=== PATIENT | female | born 1965 | race Caucasian/White ===

== ENCOUNTER 2016-08-18 17:55 | Inpatient (IN) | payer MEDICARE ==
[~2016-08-18] VITALS: Ht 154.9 cm; Wt 56.2 kg
[~2016-08-18 17:55] MED LIST: ACET-2267 PO; ARIP10TA10 PO; ASP81CT PO; CARV25TA PO; CEFD300C3 PO; CLOP75TA28 PO; CLOP75TA69 PO; DIVA-21 PO; DIVA250T PO; DIVA250T12 PO; DIVA500T15 PO; DULO20CA18 PO; ESCI20TA; EZET1TAB21; FRS325T; GABA600T2; GABA800T2 PO; HYDR-3820 PO; INSASP10V; INSASP10V SC; INSU100I14 SC; INSU100I29 SC; INSU100I5 SQ; INSU100V16 SQ; INSU100V5 SQ; LEVO750T9 PO; LISI40TA PO; MAGN400T29 PO; MAGN400T6 PO; METO-310 PO; METO10TA3 PO; NITR100C10 PO; PREG75CA PO; QNPR10T; QUET150T PO; QUET300T3 PO; ROSU20TA PO; TRAM50TA2 PO; ZOLP12.546 PO
[2016-08-18] MEDS ORDERED: NS IV 1000 ML 1,000 ML IV ONE (19:03)
[2016-08-18] MEDS ORDERED: inSUlin (REGULAR) HUMAN 1 UNIT/0.01 ML (CHARGE PER UNIT) IV ONE (19:15)
[2016-08-18 19:27] LABS: BASOPHILS % (AUTO) 0 % (0-10); EOSINOPHILS % (AUTO) 0 % (0-10); LYMPHOCYTES # (AUTO) 0.8 X 10^3 (1.0-4.0); LYMPHOCYTES % (AUTO) 8 % (12-44); MEAN CORPUSCULAR HEMOGLOBIN 31 PG (25-34); MEAN CORPUSCULAR HGB CONC 36 G/DL (32-36); MEAN CORPUSCULAR VOLUME 86 FL (80-99); MEAN PLATELET VOLUME 10.5 FL (7.4-10.4); MONOCYTES # (AUTO) 0.8 X 10^3 (0.0-1.0); MONOCYTES % (AUTO) 8 % (0-12); NEUTROPHILS % (AUTO) 84 % (42-75); PLATELET COUNT 209 10^3/uL (130-400); RED BLOOD COUNT 4.86 10^6/uL (4.35-5.85); RED CELL DISTRIBUTION WIDTH 12.3 % (10.0-14.5); WHITE BLOOD COUNT 10.7 10^3/uL (4.3-11.0)
[2016-08-18] MEDS ORDERED: ONDANSETRON 4 MG/2 ML (SDV) Z0FRAN IVP ONE (19:30)
[2016-08-18] MEDS ORDERED: FAMOTIDINE 20MG/2ML IV (PEPCID) IVP ONE (19:30)
[2016-08-18 19:38] LABS: PROTHROMBIN TIME PATIENT 12.5 SEC (12.2-14.7)
--- NOTE | 2016-08-18 19:41 | Diagnostic Imaging Report ---
INDICATION: Nausea, vomiting. COMPARISON: July 02, 2015. TECHNIQUE: Single frontal radiograph of the chest dated August 18, 2016. FINDINGS: The cardiac silhouette is within normal limits. No significant pulmonary vascular congestion. The lungs are clear. No pleural effusion. No pneumothorax. No acute osseous abnormality. IMPRESSION: Unremarkable examination without acute cardiopulmonary abnormality. Dictated by: Dictated on workstation # [id number]
[2016-08-18 19:50] LABS: ALBUMIN 4.1 G/DL (3.2-4.5); BILIRUBIN,TOTAL 1.2 MG/DL (0.1-1.0); CALCIUM 11.6 MG/DL (8.5-10.1); CREATININE SERUM 1.45 MG/DL (0.60-1.30); POTASSIUM 4.2 MMOL/L (3.6-5.0); TOTAL PROTEIN 7.8 G/DL (6.4-8.2)
[2016-08-18 20:46] LABS: BILIRUBIN,URINE NEGATIVE (NEGATIVE); KETONES,URINE 4+ (NEGATIVE); LEUKOCYTE ESTERASE ,URINE 3+ (NEGATIVE); NITRITE,URINE POSITIVE (NEGATIVE); PH,URINE 5 (5-9); PROTEIN,URINE 3+ (NEGATIVE); UROBILINOGEN,URINE NORMAL (NORMAL)
[2016-08-18 20:53] LABS: WBC,URINE >100 /HPF
[2016-08-18] MEDS ORDERED: LEVOFLOXACIN 750 MG/150 ML IV 150 ML IV ONE (21:15)
[2016-08-18] MEDS ORDERED: PROMETHAZINE INJ 25 MG/ML (PHENERGAN) AMP IVP ONE (21:15)
[2016-08-18] MEDS ORDERED: ACETAMINOPHEN 325 MG TABLET/CAPLET (TYLENOL) PO ONE (21:15)
--- NOTE | 2016-08-18 21:20 | ED General ---
General Chief Complaint: General Problems/Pain Stated Complaint: VOMITING,ELEVATED BLOOD SUGAR Nursing Triage Note: PT HERE WITH C/O HIGH BLOOD SUGAR, NAUSE, VOMITING, AND FEVER FOR 3 DAYS. Nursing Sepsis Screen: No Definite Risk Source of Information: Patient, Old Records Exam Limitations: No Limitations History of Present Illness Time Seen by Provider: 18:06 Initial Comments This 51-year-old woman presents to the emergency room complaining of 3 days of illness including vomiting, subjective fever, cough, generalized abdominal pain , and hyperglycemia. Possible sepsis was identified by nursing staff and sepsis orders were initiated. Patient was found to be febrile and tachycardic during triage. Fingerstick blood sugar was 383. Allergies and Home Medications Allergies Coded Allergies: Penicillins (Unverified Allergy, Unknown, 06/03/15) ibuprofen (Verified Allergy, Unknown, 02/18/07) Home Medications Aripiprazole 10 Mg Tablet 30Days 10 MG PO DAILY Prescribed by: KRISTA GARCIA on 07/06/15951 Aspirin 81 Mg Tablet 81 MG PO DAILY (Reported) Cefdinir 300 Mg Capsule #20 300 MG PO BID You must fill and take the antibiotics and finish until all gone. Do not stop even if you are feeling better. Prescribed by: KRISTA GARCIA on 07/06/15951 Clopidogrel Bisulfate 75 Mg Tablet 75 MG PO DAILY (Reported) Divalproex Sodium 500 Mg Tab.er.24h 500 MG PO BID (Reported) Hydrocodone/Acetaminophen 1 Each Tablet 1 TAB PO Q6H PRN PRN PAIN (Reported) Insulin Aspart 300 Units/3 Ml Solution 30Days 10 UNITS SC AC Prescribed by: KRISTA GARCIA on 07/06/15951 Insulin Detemir 100 Unit/1 Ml Insuln.pen 30Days 20 UNITS SC HS Prescribed by: KRISTA GARCIA on 07/06/15951 Metoclopramide HCl 10 Mg Tablet 30Days 10 MG PO Q6HR Prescribed by: KRISTA GARCIA on 07/06/15951 Rosuvastatin Calcium 20 Mg Tablet 20 MG PO DAILY (Reported) Constitutional: see HPI EENTM: no symptoms reported Respiratory: see HPI Cardiovascular: see HPI Gastrointestinal: see HPI Genitourinary: other (decreased urination) : No Musculoskeletal: no symptoms reported Skin: no symptoms reported Psychiatric/Neurological: No Symptoms Reported Hematologic/Lymphatic: No Symptoms Reported Past Chimnnz-Ftuzul-Uzfhjs Hx Patient Social History Alcohol Use: Occasionally Uses Recreational Drug Use: No Smoking Status: Current Everyday Smoker Type Used: Cigarettes Recent Foreign Travel: No Contact w/Someone Who Travel: No Recent Infectious Disease Expo: No Recent Hopitalizations: No Immunizations Up To Date Tetanus Booster (TDap): Unknown Seasonal Allergies Seasonal Allergies: No Surgeries HX Surgeries: Yes (EARDRUM,X4 C-SECTIONS X2 FEMUR RODS,CARPEL TUNNEL,SHEA, UMB.HERNIA) Surgeries: Abdominal, Section, Ear Surgery, Gallbladder, Orthopedic, Tubal Ligation Respiratory Hx Respiratory Disorders: Yes (PLEURAL EFFUSION--RESOLVED) Respiratory Disorders: Asthma Cardiovascular Hx Cardiac Disorders: Yes Cardiac Disorders: High Cholesterol, Hypertension Neurological Hx Neurological Disorders: Yes (CVA 12/2012--RIGHT SIDE WEAKNESS RESOLVED. 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 PAIN) Musculoskeletal Disorders: Degenerate Disk Disease, Chronic Back Pain, Fractures Endocrine Hx Endocrine Disorders: Yes Endocrine Disorders: Diabetes, Insulin dep HEENT HX ENT Disorders: Yes (ONLY HAS 2 WISDOM TEETH. NO DENTURES. MULT EAR SURGERIES ) HEENT Disorders: Chronic Ear Infection Cancer Hx Cancer: No Psychosocial Hx Psychiatric Problems: Yes (MOOD DISORDER) Behavioral Health Disorders: Sleep Difficulties, Anxiety, Personality Disorder , Depression Integumentary HX Skin/Integumentary Disorder: No Blood Transfusions Hx Blood Disorders: No Adverse Reaction to a Blood Tr: No Family Medical History Significant Family History: Heart Disease Family Medial History: Cardiovascular disease 19 FATHER 19 MOTHER G8 BROTHER Diabetes mellitus 19 FATHER FH: chronic obstructive pulmonary disease G8 BROTHER Prostate cancer 19 FATHER Physical Exam Vital Signs Vital Sign - Last 12Hours 08/18/16 18:57 Temp 100.1 Pulse 115 Resp 18 B/P 153/101 Pulse Ox 99 O2 Delivery Room Air Capillary Refill : Less Than 3 Seconds General Appearance: WD/WN Mild Distress HEENT: PERRL/EOMI Normal ENT Inspection Pharynx Normal Neck: Normal Inspection Respiratory: Lungs Clear Normal Breath Sounds No Accessory Muscle Use No Respiratory Distress Cardiovascular: No Edema No Murmur Tachycardia Gastrointestinal: Normal Bowel Sounds Soft Tenderness (mild and diffuse) Extremity: Normal Inspection No Pedal Edema Neurologic/Psychiatric: Alert Oriented x3 No Motor/Sensory Deficits Normal 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 Norm as Tested Skin: Normal Color Warm/Dry Progress/Results/Core Measures Results/Orders Lab Results Laboratory Tests Test 08/18/16 19:12 08/18/16 19:15 08/18/16 19:48 08/18/16 20:30 Range/Units Glucometer 383 H 368 H 70-110 MG/DL Activated Partial Thromboplast Time 22 L 24-35 SEC Alanine Aminotransferase (ALT/SGPT) 18 0-55 U/L Albumin 4.1 3.2-4.5 G/DL Alkaline Phosphatase 119 40-136 U/L Anion Gap 21 H 5-14 MMOL/L Aspartate Amino Transf (AST/SGOT) 21 5-34 U/L BUN/Creatinine Ratio 30 Basophils # (Auto) 0.0 0.0-0.1 10^3/uL Basophils (%) (Auto) 0 0-10 % Blood Urea Nitrogen 44 H 7-18 MG/DL Calcium Level 11.6 H 8.5-10.1 MG/DL Carbon Dioxide Level 16 L 21-32 MMOL/L Chloride Level 96 L 98-107 MMOL/L Creatinine 1.45 H 0.60-1.30 MG/DL Eosinophils # (Auto) 0.0 0.0-0.3 10^3/uL Eosinophils (%) (Auto) 0 0-10 % Estimat Glomerular Filtration Rate 38 Glucose Level 472 *H 70-105 MG/DL Hematocrit 42 35-52 % Hemoglobin 15.1 11.5-16.0 G/DL INR Comment 1.0 0.8-1.4 Lactic Acid Level 1.7 0.5-2.0 MMOL/L Lipase 13 8-78 U/L Lymphocytes # (Auto) 0.8 L 1.0-4.0 X 10^3 Lymphocytes (%) (Auto) 8 L 12-44 % Mean Corpuscular Hemoglobin 31 25-34 PG Mean Corpuscular Hemoglobin Concent 36 32-36 G/DL Mean Corpuscular Volume 86 80-99 FL Mean Platelet Volume 10.5 H 7.4-10.4 FL Monocytes # (Auto) 0.8 0.0-1.0 X 10^3 Monocytes (%) (Auto) 8 0-12 % Neutrophils # (Auto) 9.0 H 1.8-7.8 X 10^3 Neutrophils (%) (Auto) 84 H 42-75 % Platelet Count 209 130-400 10^3/uL Potassium Level 4.2 3.6-5.0 MMOL/L Prothrombin Time 12.5 12.2-14.7 SEC Red Blood Count 4.86 4.35-5.85 10^6/uL Red Cell Distribution Width 12.3 10.0-14.5 % Sodium Level 133 L 135-145 MMOL/L Total Bilirubin 1.2 H 0.1-1.0 MG/DL Total Protein 7.8 6.4-8.2 G/DL White Blood Count 10.7 4.3-11.0 10^3/uL Urine Bacteria MODERATE H /HPF Urine Bilirubin NEGATIVE NEGATIVE Urine Casts NONE /LPF Urine Clarity VERY CLOUDY H Urine Color YELLOW Urine Crystals NONE /LPF Urine Culture Indicated YES Urine Glucose (UA) 4+ H NEGATIVE Urine Ketones 4+ H NEGATIVE Urine Leukocyte Esterase 3+ H NEGATIVE Urine Mucus NEGATIVE /LPF Urine Nitrite POSITIVE H NEGATIVE Urine Protein 3+ H NEGATIVE Urine RBC 5-10 H /HPF Urine RBC (Auto) 3+ H NEGATIVE Urine Specific [place] 1.015 L 1.016-1.022 Urine Urobilinogen NORMAL NORMAL MG/DL Urine WBC >100 H /HPF Urine pH 5 5-9 Test 08/18/16 20:34 08/18/16 22:06 08/19/16 04:20 08/19/16 07:12 Range/Units Glucometer 265 H 249 H 149 H 70-110 MG/DL Basophils # (Auto) 0.0 0.0-0.1 10^3/uL Basophils (%) (Auto) 0 0-10 % Eosinophils # (Auto) 0.0 0.0-0.3 10^3/uL Eosinophils (%) (Auto) 0 0-10 % Hematocrit 36 35-52 % Hemoglobin 12.6 11.5-16.0 G/DL Lymphocytes # (Auto) 0.5 L 1.0-4.0 X 10^3 Lymphocytes (%) (Auto) 16 12-44 % Mean Corpuscular Hemoglobin 31 25-34 PG Mean Corpuscular Hemoglobin Concent 35 32-36 G/DL Mean Corpuscular Volume 88 80-99 FL Mean Platelet Volume 10.9 H 7.4-10.4 FL Monocytes # (Auto) 0.0 0.0-1.0 X 10^3 Monocytes (%) (Auto) 1 0-12 % Neutrophils # (Auto) 2.7 1.8-7.8 X 10^3 Neutrophils (%) (Auto) 83 H 42-75 % Platelet Count 146 130-400 10^3/uL Red Blood Count 4.12 L 4.35-5.85 10^6/uL Red Cell Distribution Width 12.2 10.0-14.5 % White Blood Count 3.2 L 4.3-11.0 10^3/uL My Orders Orders-ANGLE VALENTINE MD Cbc With Automated Diff (08/18/16 18:06) Comprehensive Metabolic Panel (08/18/16 18:06) Ua Culture If Indicated (08/18/16 18:06) Accucheck Stat ONCE (08/18/16 18:06) Saline Lock/Iv-Start (08/18/16 18:06) Lactic Acid Analyzer (08/18/16 19:03) Blood Culture (08/18/16 19:03) Sputum Culture (08/18/16 19:03) Protime With Inr (08/18/16 19:03) Partial Thromboplastin Time (08/18/16 19:03) Chest 1 View, Ap/Pa Only (08/18/16 19:03) O2 (08/18/16 19:03) Saline Lock/Iv-Start (08/18/16 19:03) Remove Rings In Anticipation O (08/18/16 19:03) Ns Iv 1000 Ml (Sodium Chloride 0.9%) (08/18/16 19:03) Insulin (Regular) Human (Humulin R (Per (08/18/16 19:15) Lipase (08/18/16 19:14) Ondansetron Injection (Zofran Injectio (08/18/16 19:30) Famotidine Injection (Pepcid Injection) (08/18/16 19:30) Accucheck Stat ONCE (08/18/16 20:25) Accucheck Stat ONCE (08/18/16 20:26) Urine Culture (08/18/16 20:30) Levofloxacin 750 Mg/150 Ml Iv (Levaquin (08/18/16 21:15) Promethazine Injection (Phenergan Injec (08/18/16 21:15) Acetaminophen Tablet/Caplet (Tylenol T (08/18/16 21:15) Medications Given in ED Vital Signs/I&O Vital Sign - Last 12Hours 08/18/16 08/18/16 08/18/16 08/18/16 21:35 21:45 22:00 22:05 Temp 100.1 99.0 100.1 100.1 Pulse 102 113 Resp 16 18 B/P 95/63 Pulse Ox 100 94 O2 Delivery Room Air 08/18/16 08/18/16 08/18/16 08/19/16 22:53 23:06 23:33 00:10 Temp 99.0 98.9 Pulse 96 95 97 Resp 18 18 B/P 109/72 105/59 Pulse Ox 96 93 O2 Delivery Room Air Room Air Room Air 08/19/16 08/19/16 08/19/16 08/19/16 01:01 01:28 04:35 07:00 Temp 98.9 100.6 Pulse 96 104 107 101 Resp 20 20 B/P 123/77 142/78 Pulse Ox 96 95 O2 Delivery Room Air Room Air Intake and Output 08/19/16 00:00 Intake Total 1000 ml Balance 1000 ml Blood Pressure Mean: 118 Point of Care Testing Finger Stick Blood Glucose: 265 Blood Glucose Action Taken: ERP NOTIFIED Progress Note : Progress Note Sepsis order set was initiated. Patient was treatedwith Zofran and Pepcid for nausea. A liter of IV fluids with 10 units of insulin was administered. Blood sugars were monitored closely. Once UTI was identified, Levaquin was ordered. Levaquin was selected because of penicillin allergy. Diagnostic Imaging Diagonstic Imaging: Xray Plain Films/CT/US/NM/MRI: chest Comments chest x-ray viewed by me and report reviewed. See report below: NAME: SIENA DE SOUZA [facility] REC#: [id number] PT STATUS: ADM IN : 1965 PHYSICIAN: ANGLE VALENTINE MD ADMIT DATE: 08/18/16 Signed Date of Exam: 08/18/16 CHEST 1 VIEW, AP/PA ONLY INDICATION: Nausea, vomiting. COMPARISON: July 02, 2015. TECHNIQUE: Single frontal radiograph of the chest dated August 18, 2016. FINDINGS: The cardiac silhouette is within normal limits. No significant pulmonary vascular congestion. The lungs are clear. No pleural effusion. No pneumothorax. No acute osseous abnormality. IMPRESSION: Unremarkable examination without acute cardiopulmonary abnormality. Dictated by: Dictated on workstation # [id number] Dict: 08/18/161936 Trans: 08/18/[id number] Interpreted by: SADIQ VINES MD Electronically signed by:SADIQ VINES MD 08/18/163 Departure Communication Time/Spoke to Admitting Phy: 21:[address] Houser Impression Impression: Primary Impression: Sepsis Qualified Code: A41.9 - Sepsis, unspecified organism Additional Impressions: Urinary tract infection Qualified Code: N39.0 - Urinary tract infection, site not specified Nausea and vomiting Qualified Code: R11.2 - Nausea with vomiting, unspecified Hyperglycemia Disposition: 09 ADMITTED INPATIENT Condition: Improved Decision to Admit Reason: Admit from ER (General) Decision to Admit/Date: Aug 18, 2016 Time/Decision to Admit Time: 21:00 Departure-Patient Inst. Referrals: [facility] (PCP/Family) Primary Care Physician ANGLE VALENTINE MD Aug 18, 2016 21:20
[2016-08-18 22:00] VITALS: BP 95/63
[2016-08-18] MEDS ORDERED: ACETAMINOPHEN 325 MG TABLET/CAPLET (TYLENOL) PO PRN (22:45)
[2016-08-18] MEDS ORDERED: ACETAMINOPHEN 650 MG SUPP (TYLENOL) PR PRN (22:45)
[2016-08-18] MEDS ORDERED: PROMETHAZINE INJ 25 MG/ML (PHENERGAN) AMP IV PRN (22:45)
[2016-08-18] MEDS ORDERED: inSUlin DETERMIR 1 UNIT/0.01 ML (LEVEMIR) CHARGE PER UNIT SQ ONE (23:00)
[2016-08-18 23:06] VITALS: BP 109/72
[2016-08-18] MEDS: NS IV 1000 ML 1,000 ML IV SCH (23:24)
[2016-08-19] VITALS (7 sets, daily range): BP systolic 105–168; BP diastolic 59–97
[2016-08-19] MEDS: ONDANSETRON 4 MG/2 ML (SDV) Z0FRAN IV PRN ×4 (03:20→16:10)
[2016-08-19] MEDS: inSUlin (REGULAR) HUMAN 1 UNIT/0.01 ML (CHARGE PER UNIT) SC SCH ×4 (06:00→20:55)
[2016-08-19 07:38] LABS: BASOPHILS % (AUTO) 0 % (0-10); EOSINOPHILS % (AUTO) 0 % (0-10); LYMPHOCYTES # (AUTO) 0.5 X 10^3 (1.0-4.0); LYMPHOCYTES % (AUTO) 16 % (12-44); MEAN CORPUSCULAR HEMOGLOBIN 31 PG (25-34); MEAN CORPUSCULAR HGB CONC 35 G/DL (32-36); MEAN CORPUSCULAR VOLUME 88 FL (80-99); MEAN PLATELET VOLUME 10.9 FL (7.4-10.4); MONOCYTES % (AUTO) 1 % (0-12); NEUTROPHILS # (AUTO) 2.7 X 10^3 (1.8-7.8); NEUTROPHILS % (AUTO) 83 % (42-75); PLATELET COUNT 146 10^3/uL (130-400); RED BLOOD COUNT 4.12 10^6/uL (4.35-5.85); RED CELL DISTRIBUTION WIDTH 12.2 % (10.0-14.5); WHITE BLOOD COUNT 3.2 10^3/uL (4.3-11.0)
[2016-08-19] MEDS ORDERED: FLU TRIvalent (5 YOA+) 2016-17 (AFLURIA) 0.5 ML IM ONE (07:45)
[2016-08-19] MEDS: NS IV 1000 ML 1,000 ML IV SCH ×2 (07:56→17:23)
[2016-08-19 07:59] LABS: ALBUMIN 3.3 G/DL (3.2-4.5); BILIRUBIN,TOTAL 1.3 MG/DL (0.1-1.0); CALCIUM 10.1 MG/DL (8.5-10.1); CREATININE SERUM 1.07 MG/DL (0.60-1.30); POTASSIUM 2.9 MMOL/L (3.6-5.0); TOTAL PROTEIN 6.3 G/DL (6.4-8.2)
[2016-08-19] MEDS ORDERED: GABA-488 PO (08:59)
[2016-08-19] MEDS ORDERED: INSU100I14 SQ (09:12)
[2016-08-19] MEDS ORDERED: LISI-552 PO (09:12)
[2016-08-19] MEDS ORDERED: METO-310 PO (09:12)
[2016-08-19] MEDS ORDERED: INSU100I29 SQ (09:12)
[2016-08-19] MEDS ORDERED: ROSU20TA28 PO (09:12)
[2016-08-19] MEDS ORDERED: KCL 20 MEQ TAB (K-DUR) PO NR (09:15)
--- NOTE | 2016-08-19 09:19 | History & Physicial (CHS) ---
HPI History of Present Illness: 51 yo F that presented to ER because of severe nausea and vomiting x 3 days that got worse yesterday. States that she has not been able to tolerate food for the last 3 days. She has been trying to stay well hydrated with fluids but yesterday started to vomit fluids. Denies any blood in vomit or stool. Denies having fever or chills. States that she has been going pee alot but denies any discomfort or burning. Source: patient, RN/MD, old records Exam Limitations: no limitations Date seen by provider: Aug 19, 2016 Attending Physician Jalen Houser MD PCP [facility] Date of Admission Aug 18, 2016 at 21:13 Home Medications Home Medications Reviewed patient Home Medication Reconciliation Form Allergies Coded Allergies: Penicillins (Unverified Allergy, Unknown, 06/03/15) ibuprofen (Verified Allergy, Unknown, 02/18/07) V[facility]-Kfqulz-Yhotgf Hx Patient Social History Alcohol Use: Occasionally Uses Recreational Drug Use: No Smoking Status: Never a Smoker Type Used: Cigarettes Recent Foreign Travel: No Contact w/other who traveled: No Recent Hopitalizations: No Recent Infectious Disease Expo: No Physical Abuse Screen: No ( A CHILD FROM FATHER) Sexual Abuse: No ( A CHILD FROM FATHER) Immunizations Up To Date Tetanus Booster (TDap): Unknown Past Medical History PMHx: Reported CVA in 2012 with Rt. sided weakness- with no evidence of CVA on MRI in 2014 HTN HLD DMII Mood disorder Non-copliance with medications and blood sugars. Possible Gastroperesis-supposed to be on Reglan with chronic nausea vomiting History of Pancreatitis Atherosclerotic Occlusive Disease left carotid at 40%, right 0-25% Surg Hx: Bilateral femur rods Carpal tunnel x 4 Umbilical Hernia repair Myringotomy tubes cholecystectomy Family Medical History Significant Family History: Heart Disease Family History: Cardiovascular disease 19 FATHER 19 MOTHER G8 BROTHER Diabetes mellitus 19 FATHER FH: chronic obstructive pulmonary disease G8 BROTHER Prostate cancer 19 FATHER Review of Systems (CHC) Constitutional: No chills, No fever, malaise weakness EENTM: No blurred vision, No double vision, No nose congestion Respiratory: no symptoms reportedNo cough, No dyspnea on exertion, No short of breath, No wheezing Cardiovascular: no symptoms reportedNo chest pain, No palpitations Gastrointestinal: abdominal pain (RUQ)No constipation, No diarrhea, No hematemesis, loss of appetite nausea vomiting Genitourinary: No dysuria, frequencyNo hematuria, No incontinence, nocturia : No Musculoskeletal: no symptoms reported Skin: no symptoms reportedNo rash Psychiatric/Neurological: No Symptoms Reported Reviewed Test Results Reviewed Test Results Lab Laboratory Tests Test 08/18/16 19:12 08/18/16 19:15 08/18/16 19:48 08/18/16 20:30 Range/Units Glucometer 383 H 368 H 70-110 MG/DL Activated Partial Thromboplast Time 22 L 24-35 SEC Alanine Aminotransferase (ALT/SGPT) 18 0-55 U/L Albumin 4.1 3.2-4.5 G/DL Alkaline Phosphatase 119 40-136 U/L Anion Gap 21 H 5-14 MMOL/L Aspartate Amino Transf (AST/SGOT) 21 5-34 U/L BUN/Creatinine Ratio 30 Basophils # (Auto) 0.0 0.0-0.1 10^3/uL Basophils (%) (Auto) 0 0-10 % Blood Urea Nitrogen 44 H 7-18 MG/DL Calcium Level 11.6 H 8.5-10.1 MG/DL Carbon Dioxide Level 16 L 21-32 MMOL/L Chloride Level 96 L 98-107 MMOL/L Creatinine 1.45 H 0.60-1.30 MG/DL Eosinophils # (Auto) 0.0 0.0-0.3 10^3/uL Eosinophils (%) (Auto) 0 0-10 % Estimat Glomerular Filtration Rate 38 Glucose Level 472 *H 70-105 MG/DL Hematocrit 42 35-52 % Hemoglobin 15.1 11.5-16.0 G/DL INR Comment 1.0 0.8-1.4 Lactic Acid Level 1.7 0.5-2.0 MMOL/L Lipase 13 8-78 U/L Lymphocytes # (Auto) 0.8 L 1.0-4.0 X 10^3 Lymphocytes (%) (Auto) 8 L 12-44 % Mean Corpuscular Hemoglobin 31 25-34 PG Mean Corpuscular Hemoglobin Concent 36 32-36 G/DL Mean Corpuscular Volume 86 80-99 FL Mean Platelet Volume 10.5 H 7.4-10.4 FL Monocytes # (Auto) 0.8 0.0-1.0 X 10^3 Monocytes (%) (Auto) 8 0-12 % Neutrophils # (Auto) 9.0 H 1.8-7.8 X 10^3 Neutrophils (%) (Auto) 84 H 42-75 % Platelet Count 209 130-400 10^3/uL Potassium Level 4.2 3.6-5.0 MMOL/L Prothrombin Time 12.5 12.2-14.7 SEC Red Blood Count 4.86 4.35-5.85 10^6/uL Red Cell Distribution Width 12.3 10.0-14.5 % Sodium Level 133 L 135-145 MMOL/L Total Bilirubin 1.2 H 0.1-1.0 MG/DL Total Protein 7.8 6.4-8.2 G/DL White Blood Count 10.7 4.3-11.0 10^3/uL Urine Bacteria MODERATE H /HPF Urine Bilirubin NEGATIVE NEGATIVE Urine Casts NONE /LPF Urine Clarity VERY CLOUDY H Urine Color YELLOW Urine Crystals NONE /LPF Urine Culture Indicated YES Urine Glucose (UA) 4+ H NEGATIVE Urine Ketones 4+ H NEGATIVE Urine Leukocyte Esterase 3+ H NEGATIVE Urine Mucus NEGATIVE /LPF Urine Nitrite POSITIVE H NEGATIVE Urine Protein 3+ H NEGATIVE Urine RBC 5-10 H /HPF Urine RBC (Auto) 3+ H NEGATIVE Urine Specific [place] 1.015 L 1.016-1.022 Urine Urobilinogen NORMAL NORMAL MG/DL Urine WBC >100 H /HPF Urine pH 5 5-9 Test 08/18/16 20:34 08/18/16 22:06 08/19/16 04:20 08/19/16 07:12 Range/Units Glucometer 265 H 249 H 149 H 70-110 MG/DL Alanine Aminotransferase (ALT/SGPT) 12 0-55 U/L Albumin 3.3 3.2-4.5 G/DL Alkaline Phosphatase 110 40-136 U/L Anion Gap 11 5-14 MMOL/L Aspartate Amino Transf (AST/SGOT) 15 5-34 U/L BUN/Creatinine Ratio 33 Basophils # (Auto) 0.0 0.0-0.1 10^3/uL Basophils (%) (Auto) 0 0-10 % Blood Urea Nitrogen 35 H 7-18 MG/DL Calcium Level 10.1 8.5-10.1 MG/DL Carbon Dioxide Level 21 21-32 MMOL/L Chloride Level 108 H 98-107 MMOL/L Creatinine 1.07 0.60-1.30 MG/DL Eosinophils # (Auto) 0.0 0.0-0.3 10^3/uL Eosinophils (%) (Auto) 0 0-10 % Estimat Glomerular Filtration Rate 54 Glucose Level 150 H 70-105 MG/DL Hematocrit 36 35-52 % Hemoglobin 12.6 11.5-16.0 G/DL Lymphocytes # (Auto) 0.5 L 1.0-4.0 X 10^3 Lymphocytes (%) (Auto) 16 12-44 % Mean Corpuscular Hemoglobin 31 25-34 PG Mean Corpuscular Hemoglobin Concent 35 32-36 G/DL Mean Corpuscular Volume 88 80-99 FL Mean Platelet Volume 10.9 H 7.4-10.4 FL Monocytes # (Auto) 0.0 0.0-1.0 X 10^3 Monocytes (%) (Auto) 1 0-12 % Neutrophils # (Auto) 2.7 1.8-7.8 X 10^3 Neutrophils (%) (Auto) 83 H 42-75 % Platelet Count 146 130-400 10^3/uL Potassium Level 2.9 L 3.6-5.0 MMOL/L Red Blood Count 4.12 L 4.35-5.85 10^6/uL Red Cell Distribution Width 12.2 10.0-14.5 % Sodium Level 140 135-145 MMOL/L Total Bilirubin 1.3 H 0.1-1.0 MG/DL Total Protein 6.3 L 6.4-8.2 G/DL White Blood Count 3.2 L 4.3-11.0 10^3/uL Radiology Date of Exam: 08/18/16 CHEST 1 VIEW, AP/PA ONLY INDICATION: Nausea, vomiting. COMPARISON: July 02, 2015. TECHNIQUE: Single frontal radiograph of the chest dated August 18, 2016. FINDINGS: The cardiac silhouette is within normal limits. No significant pulmonary vascular congestion. The lungs are clear. No pleural effusion. No pneumothorax. No acute osseous abnormality. IMPRESSION: Unremarkable examination without acute cardiopulmonary abnormality. Physical Exam-(CHC) Physical Exam Vital Signs VS - Last 72 Hours, by Label 08/18/16 08/18/16 08/18/16 08/18/16 18:57 19:12 21:35 21:45 Temp 100.1 100.1 99.0 Pulse 115 102 Resp 18 16 B/P 153/101 Pulse Ox 99 100 100 O2 Delivery Room Air Room Air 08/18/16 08/18/16 08/18/16 08/18/16 22:00 22:05 22:53 23:06 Temp 100.1 100.1 99.0 Pulse 113 96 95 Resp 18 18 B/P 95/63 109/72 Pulse Ox 94 96 O2 Delivery Room Air Room Air 08/18/16 08/19/16 08/19/16 08/19/16 23:33 00:10 01:01 01:28 Temp 98.9 98.9 Pulse 97 96 104 Resp 18 20 B/P 105/59 123/77 Pulse Ox 93 96 O2 Delivery Room Air Room Air Room Air 08/19/16 08/19/16 04:35 07:00 Temp 100.6 Pulse 107 101 Resp 20 B/P 142/78 Pulse Ox 95 O2 Delivery Room Air Capillary Refill : Less Than 3 Seconds General Appearance: mild distress (feeling that she is going to vomit with sitting up) thin Eyes: Bilateral Eye EOMI, Bilateral Eye PERRL Neck: non-tender full range of motion supple normal inspection Respiratory: chest non-tender lungs clear normal breath sounds no respiratory distress no accessory muscle use Cardiovascular: regular rate, rhythm no edema no gallop no JVD no murmur Gastrointestinal: normal bowel sounds soft no organomegalyNo distended, No guarding, tenderness (epigastric region) Extremities: normal range of motion non-tender normal inspection no pedal edema no calf tenderness normal capillary refill Neurologic/Psychiatric: baster hand II-XII nml as tested no motor/sensory deficits alert normal mood/affect oriented x 3 Skin: normal color warm/dry Lymphatic: no adenopathy Assessment/Plan Assessment/Plan Admission Dx Sepsis from UTI Uncontrolled Insulin Dependent DM Nausea and Vomiting HTN Hypokalemia Plan 51 yo F that presented to ER with severe nausea and vomiting found to have UTI Sepsis from UTI with + blood cultures - Continue Levaquin D2 due to PCN allergy, Cultures pending - Continue fluid hydration, blood pressure stable, continue to monitor Uncontrolled Insulin Dependent DM - A1c pending - Will do 1/2 of Levemir dose while patient is not taking PO, Continue sliding scale insulin Nausea and Vomiting - Schedule zofran q4 and use Phenergan PRN - Start clears when patient is ready HTN: hold blood pressure medications at this time Hypokalemia: Replaced PO, repeat BMP in AM FEN: NPO but ok to advance to clears when patient ready DVT PPX: Lovenox 40mg Daily Dispo: Continue admission until patient able to tolerate PO antibiotics and diet Diagnosis/Problems: Clinical Quality Measures DVT/VTE Risk/Contraindication: Risk Factor Score Per Nursin RFS Level Per Nursing on Admit: 1=Low/No VTE PPX Copy Copies To 1: JALEN HOUSER MD, HOLLY R MD Aug 19, 2016 09:19
[2016-08-19] MEDS: ENOXAPARIN 40 MG/0.4 ML (LOVENOX) SYR SC SCH (10:35)
[2016-08-19] MEDS ORDERED: CATHETER FLUSH 10 ML SYR IV PRN (16:15)
[2016-08-19] MEDS ORDERED: inSUlin DETERMIR 1 UNIT/0.01 ML (LEVEMIR) CHARGE PER UNIT SQ SCH ×2 (21:00)
[2016-08-19] MEDS ORDERED: LEVOFLOXACIN 750 MG/D5W 150 ML PRE-MIX IV SCH (21:00)
[2016-08-20] VITALS: BP 153/90
[2016-08-20] MEDS: NS IV 1000 ML 1,000 ML IV SCH ×2 (03:09→06:25)
[2016-08-20 04:00] VITALS: BP 126/83
[2016-08-20 05:06] LABS: BASOPHILS % (AUTO) 0 % (0-10); EOSINOPHILS % (AUTO) 0 % (0-10); LYMPHOCYTES % (AUTO) 21 % (12-44); MEAN CORPUSCULAR HEMOGLOBIN 31 PG (25-34); MEAN CORPUSCULAR HGB CONC 36 G/DL (32-36); MEAN CORPUSCULAR VOLUME 86 FL (80-99); MEAN PLATELET VOLUME 10.4 FL (7.4-10.4); MONOCYTES # (AUTO) 1.1 X 10^3 (0.0-1.0); MONOCYTES % (AUTO) 11 % (0-12); NEUTROPHILS # (AUTO) 6.2 X 10^3 (1.8-7.8); NEUTROPHILS % (AUTO) 67 % (42-75); PLATELET COUNT 176 10^3/uL (130-400); RED BLOOD COUNT 4.17 10^6/uL (4.35-5.85); RED CELL DISTRIBUTION WIDTH 11.9 % (10.0-14.5); WHITE BLOOD COUNT 9.3 10^3/uL (4.3-11.0)
[2016-08-20 05:30] LABS: ALANINE AMINOTRANSFERASE 14 U/L (0-55); ALBUMIN 3.1 G/DL (3.2-4.5); ANION GAP 11 MMOL/L (5-14); ASPARTATE AMINO TRANSFERASE 18 U/L (5-34); BILIRUBIN,TOTAL 0.7 MG/DL (0.1-1.0); BLOOD UREA NITROGEN 11 MG/DL (7-18); BUN/CREATININE RATIO 13; CALCIUM 9.6 MG/DL (8.5-10.1); CARBON DIOXIDE 20 MMOL/L (21-32); CHLORIDE 103 MMOL/L (98-107); CREATININE SERUM 0.85 MG/DL (0.60-1.30); GFR ESTIMATED > 60; GLUCOSE 107 MG/DL (70-105); SODIUM 134 MMOL/L (135-145)
[2016-08-20] MEDS: inSUlin (REGULAR) HUMAN 1 UNIT/0.01 ML (CHARGE PER UNIT) SC SCH ×2 (06:00→11:28)
[2016-08-20 08:00] VITALS: BP 141/86
[2016-08-20] MEDS ORDERED: KCL 20 MEQ TAB (K-DUR) PO SCH (09:15)
[2016-08-20] MEDS: ENOXAPARIN 40 MG/0.4 ML (LOVENOX) SYR SC SCH (10:00)
[2016-08-20] MEDS ORDERED: INSU100I29 SQ (10:49)
[2016-08-20] MEDS ORDERED: INSU100I14 SQ (10:49)
[2016-08-20] MEDS ORDERED: LEVO750T9 PO (10:49)
--- NOTE | 2016-08-20 10:58 | Discharge Instructions ---
Discharge [facility] Discharge Medications New, Converted or Re-Newed RX: Call to Patients Pharmacy New Medications: Levofloxacin (Levaquin) 750 Mg Tablet 750 MG PO DAILY Days 10 TAB Changed Medications: Insulin Aspart (Novolog Flexpen) 300 Units/3 Ml Solution 5 UNITS SQ AC LAST FILLED -3-16 Days 30 EA (Medication details modified) Insulin Detemir (Levemir Flextouch) 100 Unit/1 Ml Insuln.pen 15 UNIT SQ HS LAST FILLED 04-21-16 Days 30 EA (Changed from: 12 UNIT) Continued Medications: Aspirin (Aspirin) 81 Mg Tablet 81 MG PO DAILY TAB Clopidogrel Bisulfate (Clopidogrel) 75 Mg Tablet 75 MG PO DAILY LAST FILLED 05-21- #30 TAB Gabapentin (Gabapentin) 300 Mg Capsule 300 MG PO TID CAP Hydrocodone/Acetaminophen (Hydrocodon-Acetaminophn 10-325) 1 Each Tablet 1 TAB PO TID PRN PAIN TAB Lisinopril (Lisinopril) 20 Mg Tablet 20 MG PO DAILY LAST FILLED 05-21-16 #30 TAB Metoclopramide HCl (Reglan) 10 Mg Tablet 10 MG PO TID PRN STOMACH UPSET TAB Rosuvastatin Calcium (Rosuvastatin Calcium) 20 Mg Tablet 20 MG PO HS LAST FILLED 05-21-16 #30 TAB Patient Instructions Goal/Follow Up Appt: You have a follow up appt with Dr Macias on Aug 28 @ 130pm Patient Instructions: I have changed your insulin because your A1c is >14 which means that your diabetes is very uncontrolled. At night you will now take your levemir 15 units and then 5 units before your meals. You will need to have close follow up with John to adjust your insulin and to repeat your A1c in 3 months. Please call your PCP if you experience any symptoms of low blood sugar It is very important that you complete your antibiotics. If you are unable to tolerate your antibiotics then you need to call your PCP Return to The Hospital For: Unable to tolerate antibiotics Severe Nausea and vomiting Severe abdominal pain Activity & Diet Discharge Diet: ADA Diet (Start with foods that are easy to digest, then advance as tolerated) Activity as Tolerated: Yes Copy Copies To 1: [facility] KLAUS Lopez MD, HOLLY R MD Aug 20, 2016 10:58
--- NOTE | 2016-08-20 11:04 | Discharge Summary ---
Diagnosis/Chief Complaint Date of Admission Aug 18, 2016 at 21:13 Date of Discharge 08/20/2016 Admission Diagnosis Admission Diagnosis Sepsis from UTI Uncontrolled Insulin Dependent DM Nausea and Vomiting HTN Hypokalemia Discharge Diagnosis See Above Chief Complaint/HPI Chief Complaint/HPI 51 yo F that presented to ER because of severe nausea and vomiting x 3 days that got worse yesterday. States that she has not been able to tolerate food for the last 3 days. She has been trying to stay well hydrated with fluids but yesterday started to vomit fluids. Denies any blood in vomit or stool. Denies having fever or chills. States that she has been going pee alot but denies any discomfort or burning. Discharge Summary-Simple/Stand Procedures None Consultations None Discharge Physical Examination Allergies: Coded Allergies: Penicillins (Unverified Allergy, Unknown, 06/03/15) ibuprofen (Verified Allergy, Unknown, 02/18/07) Vitals & I&Os Vital Sign - Last 12Hours Date Time Temp Pulse Resp B/P Pulse Ox O2 Delivery O2 Flow Rate FiO2 08/20/16 08:00 98.2 95 18 141/86 98 Room Air Intake and Output 08/20/16 00:00 Intake Total 2500 ml Output Total 2200 ml Balance 300 ml General Appearance: Alert, Oriented X3, Cooperative, No Acute Distress HEENT: Atraumatic, PERRLA, EOMI, Mucous Memb Moist/[place] Respiratory: Clear to Auscultation, Normal Air Movement Cardiovascular: Regular Rate, No Murmurs Abdominal: Normal Bowel Sounds, Soft, No Tenderness, No Hepatosplenomegaly, No Masses Extremities: No Clubbing, No Cyanosis, No Edema, Normal Pulses, No Tenderness/ Swelling Skin: No Rashes, No Breakdown Neuro: Normal Gait, Normal Speech, Strength at 5/5 X4 Ext, Cranial Nerves 3-12 NL Psych/Mental Status: Mental Status NL, Mood NL Hospital Course See final discharge diagnosis. Labs A1c 14.3 Radiology Reviewed Date of Exam: 08/18/16 CHEST 1 VIEW, AP/PA ONLY INDICATION: Nausea, vomiting. COMPARISON: July 02, 2015. TECHNIQUE: Single frontal radiograph of the chest dated August 18, 2016. FINDINGS: The cardiac silhouette is within normal limits. No significant pulmonary vascular congestion. The lungs are clear. No pleural effusion. No pneumothorax. No acute osseous abnormality. IMPRESSION: Unremarkable examination without acute cardiopulmonary abnormality. Discussion & Recommendations 51 yo F that was admitted from ER with severe nausea and vomiting found to have UTI and met sepsis criteria. She was started on IV antibiotics and IVF hydration protocol. She was also found to have + blood cultures that were kaur susceptible. Nausea was controlled with schedule zofran and phenergen PRN. Patient ready to go home with PO Levaquin. Patient insulin dependent diabetes is not well controlled. Insulin doses were changed. I increased her night time insulin to 15 and added 5 units before meals. Patient was previously just on sliding scale during the day. I did not get very aggressive because patient has not been eating her normal amounts. Patient is to check blood sugars 4x per day for the next week and take log to PCP John so that they can adjust insulin. Discharge Condition at discharge Improved Instructions to patient/family Please see electonic discharge instructions given to patient. Discharge Medications Reviewed and agree with Discharge Medication list on patient's Discharge Instruction sheet Clinical Quality Measures DVT/VTE Risk/Contraindication: Risk Factor Score Per Nursin RFS Level Per Nursing on Admit: 1=Low/No VTE PPX JALEN PEREZ MD Aug 20, 2016 11:04
[2016-08-20 11:55] VITALS: BP 141/86
== END 2016-08-20 11:55 | disposition home or self-care (01) | DRG 872 ==
LOC: EDUNIT# 17:55 → ER 17:56 → 4TH 21:13
PROVIDERS: ADMIT Family Medicine; ATTEND Family Medicine
DX: A41.9 Sepsis, unspecified organism (principal); N39.0 Urinary tract infection, site not specified; I10 Essential (primary) hypertension; E87.6 Hypokalemia; E11.65 Type 2 diabetes mellitus with hyperglycemia; E11.40 Type 2 diabetes mellitus with diabetic neuropathy, unspecified; F17.210 Nicotine dependence, cigarettes, uncomplicated; J45.909 Unspecified asthma, uncomplicated; E78.00 Pure hypercholesterolemia, unspecified; I65.23 Occlusion and stenosis of bilateral carotid arteries; G47.9 Sleep disorder, unspecified; F32.9 Major depressive disorder, single episode, unspecified; F60.9 Personality disorder, unspecified; F41.9 Anxiety disorder, unspecified; M54.9 Dorsalgia, unspecified; Z79.4 Long term (current) use of insulin; Z86.73 Personal history of transient ischemic attack (TIA), and cerebral infarction without residual deficits; Z91.14 Patient's other noncompliance with medication regimen
CPT/HCPCS: 36415; 71010; 80053; 81000; 82962; 83036; 83605; 83690; 85025; 85610; 85730; 87040; 87077; 87088; 87186; 96361; 96374; 96375

== ENCOUNTER 2016-12-28 09:24 | Emergency (ER) | payer MEDICARE ==
[~2016-12-28] VITALS: Ht 154.9 cm; Wt 59.9 kg
[~2016-12-28 09:24] MED LIST changes: +GABA-488 PO; +INSU100I14 SQ; +INSU100I29 SQ; +LISI-552 PO; +ROSU20TA28 PO
--- NOTE | 2016-12-28 09:46 | ED Lower Extremity ---
General Stated Complaint: FALL/R FOOT INJ History of Present Illness Time seen by provider: 09:43 Initial Comments patient rolled her ankle 2-3 days ago and it has swollen and been painful progressively worsening ever since. No fevers, malaise or inability to step down on it. However it is extremely painful to walk on. She is never fractured this ankle before. (THAO TOBAR) Allergies and Home Medications Allergies Coded Allergies: Penicillins (Unverified Allergy, Unknown, 06/03/15) ibuprofen (Verified Allergy, Unknown, 02/18/07) Home Medications Aspirin 81 Mg Tablet, 81 MG PO DAILY, (Reported) Clopidogrel Bisulfate 75 Mg Tablet, 75 MG PO DAILY, (Reported) LAST FILLED 05-21-16 #30 Gabapentin 300 Mg Capsule, 300 MG PO TID, (Reported) Hydrocodone/Acetaminophen 1 Each Tablet, 1 TAB PO TID PRN for PAIN, (Reported) Insulin Aspart 300 Units/3 Ml Solution, 5 UNITS SQ AC for 30 Days LAST FILLED 04-21-16 Prescribed by: JALEN PEREZ on 08/20/16 1049 Insulin Detemir 100 Unit/1 Ml Insuln.pen, 15 UNIT SQ HS for 30 Days LAST FILLED 04-21-16 Prescribed by: JALEN PEREZ on 08/20/16 1049 Levofloxacin 750 Mg Tablet, 750 MG PO DAILY for 10 Days Prescribed by: JALEN PEREZ on 08/20/16 1049 Lisinopril 20 Mg Tablet, 20 MG PO DAILY, (Reported) LAST FILLED 05-21-16 #30 Metoclopramide HCl 10 Mg Tablet, 10 MG PO TID PRN for STOMACH UPSET, (Reported) Rosuvastatin Calcium 20 Mg Tablet, 20 MG PO HS, (Reported) LAST FILLED 05-21-16 #30 Constitutional: see HPI, No chills, No fever, No malaise Respiratory: No short of breath, No wheezing Cardiovascular: No chest pain, edema, No Hx of Intervention Gastrointestinal: No abdominal pain, No constipation, No diarrhea Musculoskeletal: see HPI, joint pain, joint swelling Skin: No pruritus, No rash Psychiatric/Neurological: Denies Numbness, Denies Paresthesia (THAO TOBAR) Past Ykbrvst-Lpgdtc-Emtaxm Hx Patient Social History Type Used: Cigarettes Recent Foreign Travel: No Contact w/Someone Who Travel: No Recent Hopitalizations: No (THAO TOBAR) Immunizations Up To Date Tetanus Booster (TDap): Unknown (THAO TOBAR) Seasonal Allergies Seasonal Allergies: No (THAO TOBAR) Surgeries HX Surgeries: Yes (EARDRUM,X4 C-SECTIONS X2 FEMUR RODS,CARPEL TUNNEL,SHEA, UMB.HERNIA) Surgeries: Abdominal, Section, Ear Surgery, Gallbladder, Orthopedic, Tubal Ligation (THAO TOBAR) Respiratory Hx Respiratory Disorders: Yes (PLEURAL EFFUSION--RESOLVED) Respiratory Disorders: Asthma (THAO TOBAR) Cardiovascular Hx Cardiac Disorders: Yes Cardiac Disorders: High Cholesterol, Hypertension (THAO TOBAR) Neurological Hx Neurological Disorders: Yes (CVA 12/2012--RIGHT SIDE WEAKNESS RESOLVED. 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 PAIN) Musculoskeletal Disorders: Degenerate Disk Disease, Chronic Back Pain, Fractures (THAO TOBAR) Endocrine Hx Endocrine Disorders: Yes Endocrine Disorders: Diabetes, Insulin dep (THAO TOBAR) HEENT HX ENT Disorders: Yes (ONLY HAS 2 WISDOM TEETH. NO DENTURES. MULT EAR SURGERIES ) HEENT Disorders: Chronic Ear Infection (THAO TOBAR) Cancer Hx Cancer: No (THAO TOBAR) Psychosocial Hx Psychiatric Problems: Yes (MOOD DISORDER) Behavioral Health Disorders: Sleep Difficulties, Anxiety, Personality Disorder , Depression (THAO TOBAR) Integumentary HX Skin/Integumentary Disorder: No (THAO TOBAR) Blood Transfusions Hx Blood Disorders: No Adverse Reaction to a Blood Tr: No (THAO TOBAR) Family Medical History Significant Family History: Heart Disease Family Medial History: Cardiovascular disease 19 FATHER 19 MOTHER G8 BROTHER Diabetes mellitus 19 FATHER FH: chronic obstructive pulmonary disease G8 BROTHER Prostate cancer 19 FATHER (THAO TOBAR) Family Medial History: Cardiovascular disease 19 FATHER 19 MOTHER G8 BROTHER Diabetes mellitus 19 FATHER FH: chronic obstructive pulmonary disease G8 BROTHER Prostate cancer 19 FATHER (LANA MAN) Physical Exam Vital Signs Capillary Refill : (THAO TOBAR) General Appearance: WD/WN, mild distress HEENT: PERRL/EOMI, pharynx normal Cardiovascular: normal peripheral pulses, regular rate, rhythm Respiratory: lungs clear, normal breath sounds Gastrointestinal: non tender, soft Legs: bilateral leg non-tender, bilateral leg normal inspection, bilateral leg normal range of motion, bilateral leg no evidence of injury Knees: bilateral knee non-tender, bilateral knee normal inspection, bilateral knee normal range of motion, bilateral knee no evidence of injury Ankles: left ankle non-tender, left ankle normal inspection, left ankle normal range of motion, left ankle no evidence of injury, right ankle ecchymosis, right ankle joint effusion, right ankle limited range of motion, right ankle pain, right ankle soft tissue tenderness, right ankle swelling Feet: bilateral foot non-tender, left foot normal inspection, left foot normal range of motion, left foot no evidence of injury, right foot ecchymosis, right foot soft tissue tenderness, right foot swelling Neurologic/Tendon: normal sensation, normal motor functions, normal tendon functions, responds to pain Neurologic/Psychiatric: no motor/sensory deficits, alert, normal mood/affect, oriented x 3, abnormal gait (antalgic gait) Skin: normal color, warm/dry, ecchymosis (right ankle) (THAO TOBAR) Progress/Results/Core Measures Results/Orders My Orders Orders - LANA MAN Gel Ankle Brace (12/28/16 11:34) (LANA MAN) Progress Note : Progress Note x-ray ankle 3 views. Management of pain. (THAO TOBAR) Diagnostic Imaging Diagonstic Imaging: Xray Plain Films/CT/US/NM/MRI: ankle Comments FINDINGS: The alignment is normal. The plafonds and talar dome are intact. The ankle mortise is symmetric. There is no fracture or dislocation. IMPRESSION: No acute fracture or dislocation Dictated on workstation # [id number] Reviewed: Reviewed by Me (radiology report reviewed by me.) Diagonstic Imaging: Xray Plain Films/CT/US/NM/MRI: other (foot) Comments FINDINGS: The alignment of the foot is normal. There is no fracture or dislocation. Soft tissues are unremarkable. IMPRESSION: No acute fracture or dislocation Dictated on workstation # [id number] Reviewed: Reviewed by Me (radiology report reviewed by me. ) (LANA MAN) Departure Communication Progress Notes diagnostic findings discussed with the patient. Patient refuses pain medication and states she will use her home hydrocodone for pain. 2 inch Eulogio wrap and ankle stirrup brace applied to the right ankle. Proceed with [facility] to home. (LANA MAN) Impression Impression: Primary Impression: Sprain and strain of foot Additional Impression: Sprain of ankle Qualified Codes: S93.401A - Sprain of unspecified ligament of right ankle, initial encounter Disposition: HOME, SELF-CARE Condition: Improved Departure-Patient Inst. Decision time for Depature: 11:31 (LANA MAN) Referrals: [facility] (PCP/Family) Primary Care Physician Patient Instructions: Sprain (DC) Add. Discharge Instructions: Continue usual home medications including hydrocodone for pain. Elevate the right upper extremity on pillows. Ice pack for 20 minute intervals as needed for pain. Eulogio wrap and brace as instructed. Activity as tolerated. Follow-up with your family practitioner if no improvement in symptoms in 7-10 days. Return to the emergency department for worsened pain, discoloration, or any other concerns. Scripts Crutch (Crutch) 1 Each Each 1 PKT MC PRN Y for pain, #1 0 Refills Prov: LANA MAN 12/28/16 THAO TOBAR Dec 28, 2016 09:46 LANA MAN Dec 28, 2016 11:33
--- NOTE | 2016-12-28 11:10 | Diagnostic Imaging Report ---
INDICATION: Pain. Three views of the right foot were obtained. FINDINGS: The alignment of the foot is normal. There is no fracture or dislocation. Soft tissues are unremarkable. IMPRESSION: No acute fracture or dislocation Dictated by: Dictated on workstation # [id number]
--- NOTE | 2016-12-28 11:12 | Diagnostic Imaging Report ---
INDICATION: Pain. Three views of right ankle were obtained. FINDINGS: The alignment is normal. The plafonds and talar dome are intact. The ankle mortise is symmetric. There is no fracture or dislocation. IMPRESSION: No acute fracture or dislocation Dictated by: Dictated on workstation # [id number]
[2016-12-28] MEDS ORDERED: CRUT1EAC7 MC (11:44)
[2016-12-28 11:48] VITALS: BP 136/88
== END 2016-12-28 11:49 | disposition home or self-care (01) ==
LOC: EDUNIT# 09:24 → ER 09:26
DX: S93.401A Sprain of unspecified ligament of right ankle, initial encounter (principal); J45.909 Unspecified asthma, uncomplicated; I10 Essential (primary) hypertension; E11.40 Type 2 diabetes mellitus with diabetic neuropathy, unspecified; F17.210 Nicotine dependence, cigarettes, uncomplicated; Z86.73 Personal history of transient ischemic attack (TIA), and cerebral infarction without residual deficits; Z79.4 Long term (current) use of insulin; Z79.82 Long term (current) use of aspirin; X50.0XXA Overexertion from strenuous movement or load, initial encounter
CPT/HCPCS: 73610; 73630; 99283

== ENCOUNTER 2017-01-30 22:58 | Emergency (ER) | payer MEDICARE ==
[~2017-01-30] VITALS: Ht 154.9 cm; Wt 58.5 kg
[~2017-01-30 22:58] MED LIST changes: +CRUT1EAC7 MC
--- OUTSIDE RECORDS SUMMARY | 2017-01-30 23:07 | XMS REPORT | Continuity of Care Document ---
Author Author [facility] Organization [facility] Address Unknown Phone Unavailable Allergies Active Description Code Type Severity Reaction Onset Reported/Identified Relationship to Patient Clinical Status Yes ibuprofen [id number] Drug Allergy Unknown N/A 02/18/2007 Yes Penicillins [id number] Drug Allergy Unknown N/A 06/03/2015 Medications Problems Date Dx Coded Attending Type Code Diagnosis Diagnosed By 01/10/2015 CLAUDETTE PAULA MD Ot 813.43 FX DISTAL ULNA-CLOSED 01/10/2015 CLAUDETTE PAULA MD Ot 959.3 ELB/FOREARM/WRST INJ NOS 01/10/2015 CLAUDETTE PAULA MD Ot E000.8 OTHER EXTERNAL CAUSE STATUS 01/10/2015 CLAUDETTE PAULA MD Ot E888.9 FALL NOS 05/24/2015 JAIME GOLDBERG MD Ot E11.65 TYPE 2 DIABETES MELLITUS WITH HYPERGLYCE 05/24/2015 JAIME GOLDBERG MD Ot E78.5 HYPERLIPIDEMIA, UNSPECIFIED 05/24/2015 JAIME GOLDBERG MD Ot F32.9 MAJOR DEPRESSIVE DISORDER, SINGLE EPISOD 05/24/2015 JAIME GOLDBERG MD Ot I10 ESSENTIAL (PRIMARY) HYPERTENSION 05/24/2015 JAIME GOLDBERG MD Ot R20.0 ANESTHESIA OF SKIN 05/24/2015 JAIME GOLDBERG MD Ot R45.851 SUICIDAL IDEATIONS 05/24/2015 JAIME GOLDBERG MD Ot E11.65 05/24/2015 JAIME GOLDBERG MD Ot E78.5 05/24/2015 JAIME GOLDBERG MD Ot F32.9 05/24/2015 JAIME GOLDBERG MD Ot I10 05/24/2015 JAIME GOLDBERG MD Ot R20.0 05/24/2015 JAIME GOLDBERG MD Ot R45.851 06/06/2015 МАРИЯ ROBIN MD Ot E11.65 06/06/2015 МАРИЯ ROBIN MD Ot A41.51 06/06/2015 МАРИЯ ROBIN MD Ot E11.65 06/06/2015 МАРИЯ ROBIN MD Ot E78.5 06/06/2015 МАРИЯ ROBIN MD Ot E83.42 06/06/2015 МАРИЯ ROBIN MD Ot E86.0 06/06/2015 МАРИЯ ROBIN MD Ot E87.2 06/06/2015 МАРИЯ ROBIN MD Ot E87.6 06/06/2015 МАРИЯ ROBIN MD Ot F31.9 06/06/2015 МАРИЯ ROBIN MD Ot I10 06/06/2015 МАРИЯ ROBIN MD Ot N17.9 06/06/2015 МАРИЯ ROBIN MD Ot N39.0 06/06/2015 МАРИЯ ROBIN MD Ot R65.21 06/06/2015 МАРИЯ ROBIN MD Ot Z79.4 06/06/2015 МАРИЯ ROBIN MD Ot Z86.73 06/06/2015 МАРИЯ ROBIN MD Ot Z91.14 06/08/2015 МАРИЯ ROBIN MD Ot A41.51 SEPSIS DUE TO ESCHERICHIA COLI [E. COLI] 06/08/2015 МАРИЯ ROBIN MD Ot E11.65 TYPE 2 DIABETES MELLITUS WITH HYPERGLYCE 06/08/2015 МАРИЯ ROBIN MD Ot E78.5 HYPERLIPIDEMIA, UNSPECIFIED 06/08/2015 МАРИЯ ROBIN MD Ot E83.42 HYPOMAGNESEMIA 06/08/2015 МАРИЯ ROBIN MD Ot E86.0 DEHYDRATION 06/08/2015 МАРИЯ ROBIN MD Ot E87.2 ACIDOSIS 06/08/2015 МАРИЯ ROBIN MD Ot E87.6 HYPOKALEMIA 06/08/2015 МАРИЯ ROBIN MD Ot F31.9 BIPOLAR DISORDER, UNSPECIFIED 06/08/2015 МАРИЯ ROBIN MD Ot I10 ESSENTIAL (PRIMARY) HYPERTENSION 06/08/2015 МАРИЯ ROBIN MD Ot N17.9 ACUTE KIDNEY FAILURE, UNSPECIFIED 06/08/2015 МАРИЯ ROBIN MD, Ot N39.0 URINARY TRACT INFECTION, SITE NOT SPECIF 06/08/2015 МАРИЯ ROBIN MD, Ot R65.21 SEVERE SEPSIS WITH SEPTIC SHOCK 06/08/2015 МАРИЯ ROBIN MD, Ot Z79.4 PENITENTIARY (CURRENT) USE OF INSULIN 06/08/2015 МАРИЯ ROBIN MD, Ot Z86.73 PRSNL HX OF TIA (TIA), AND CEREB INFRC W 06/08/2015 МАРИЯ ROBIN MD, Ot Z91.14 PATIENT'S OTHER NONCOMPLIANCE WITH MEDIC 07/04/2015 PERKINS DO, AWA K Ot A41.9 07/04/2015 PERKINS DO, AWA K Ot E11.43 07/04/2015 PERKINS DO, AWA K Ot E11.65 07/04/2015 PERKINS DO, AWA K Ot E78.0 07/04/2015 PERKINS DO, AWA K Ot E86.0 07/04/2015 PERKINS DO, AWA K Ot F17.210 07/04/2015 PERKINS DO, AWA K Ot F31.9 07/04/2015 PERKINS DO, AWA K Ot I10 07/04/2015 PERKINS DO, AWA K Ot I95.9 07/04/2015 PERKINS DO, AWA K Ot K31.84 07/04/2015 PERKINS DO, AWA K Ot N17.9 07/04/2015 PERKINS DO, AWA K Ot N39.0 07/04/2015 PERKINS DO, AWA K Ot R65.20 07/04/2015 PERKINS DO, AWA K Ot Z79.4 07/04/2015 PERKINS DO, AWA K Ot Z86.73 07/04/2015 PERKINS DO, AWA K Ot Z91.19 07/07/2015 PERKINS DO, AWA K Ot A41.9 SEPSIS, UNSPECIFIED ORGANISM 07/07/2015 PERKINS DO, AWA K Ot E11.43 TYPE 2 DIABETES W DIABETIC AUTONOMIC (PO 07/07/2015 PERKINS DO, AWA K Ot E11.65 TYPE 2 DIABETES MELLITUS WITH HYPERGLYCE 07/07/2015 PERKINS DO, AWA K Ot E78.0 PURE HYPERCHOLESTEROLEMIA 07/07/2015 PERKINS DO, AWA K Ot E86.0 DEHYDRATION 07/07/2015 PERKINS DO, AWA K Ot F17.210 NICOTINE DEPENDENCE, CIGARETTES, UNCOMPL 07/07/2015 MADDIE HODGE AWA Chandra Ot F31.9 BIPOLAR DISORDER, UNSPECIFIED 07/07/2015 MADDIE HODGE AWA K Ot I10 ESSENTIAL (PRIMARY) HYPERTENSION 07/07/2015 MADDIE HODGE AWA Chandra Ot I95.9 HYPOTENSION, UNSPECIFIED 07/07/2015 MADDIE HODGE AWA Chandra Ot K31.84 GASTROPARESIS 07/07/2015 MADDIE HODGE AWA Chandra Ot N17.9 ACUTE KIDNEY FAILURE, UNSPECIFIED 07/07/2015 MADDIE HODGE AWA Chandra Ot N39.0 URINARY TRACT INFECTION, SITE NOT SPECIF 07/07/2015 MADDIE HODGE AWA Chandra Ot R65.20 SEVERE SEPSIS WITHOUT SEPTIC SHOCK 07/07/2015 MADDIE HODGE AWA Chandra Ot Z79.4 PENITENTIARY (CURRENT) USE OF INSULIN 07/07/2015 MADDIE HODGE AWA Chandra Ot Z86.73 PRSNL HX OF TIA (TIA), AND CEREB INFRC W 07/07/2015 MADDIE HODGE AWA Corazon Ot Z91.19 PATIENT'S NONCOMPLIANCE W [facility] 08/20/2016 JALEN PEREZ MD, Ot A41.9 SEPSIS, UNSPECIFIED ORGANISM 08/20/2016 JALEN PEREZ MD Ot E11.40 TYPE 2 DIABETES MELLITUS WITH DIABETIC N 08/20/2016 JALEN PEREZ MD, Ot E11.65 TYPE 2 DIABETES MELLITUS WITH HYPERGLYCE 08/20/2016 JALEN PEREZ MD Ot E78.00 PURE HYPERCHOLESTEROLEMIA, UNSPECIFIED 08/20/2016 JALEN PEREZ MD, Ot E87.6 HYPOKALEMIA 08/20/2016 JALEN PEREZ MD Ot F17.210 NICOTINE DEPENDENCE, CIGARETTES, UNCOMPL 08/20/2016 JALEN PEREZ MD, Ot F32.9 MAJOR DEPRESSIVE DISORDER, SINGLE EPISOD 08/20/2016 JALEN PEREZ MD, Ot F41.9 ANXIETY DISORDER, UNSPECIFIED 08/20/2016 JALEN PEREZ MD, Ot F60.9 PERSONALITY DISORDER, UNSPECIFIED 08/20/2016 JALEN PEREZ MD, Ot G47.9 SLEEP DISORDER, UNSPECIFIED 08/20/2016 JALEN PEREZ MD Ot I10 ESSENTIAL (PRIMARY) HYPERTENSION 08/20/2016 JALEN PEREZ MD Ot 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 08/20/2016 JALEN PEREZ MD Ot J45.909 UNSPECIFIED ASTHMA, UNCOMPLICATED 08/20/2016 JALEN PEREZ MD Ot M54.9 DORSALGIA, UNSPECIFIED 08/20/2016 JALEN PEREZ MD Ot N39.0 URINARY TRACT INFECTION, SITE NOT SPECIF 08/20/2016 JALEN PEREZ MD Ot 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.4 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 08/20/2016 JALEN PEREZ MD Ot Z86.73 PRSNL HX OF TIA (TIA), AND CEREB INFRC W 08/20/2016 JALEN PEREZ MD Ot Z91.14 PATIENT'S OTHER NONCOMPLIANCE WITH MEDIC 12/28/2016 LANA MARINELLI Ot E11.40 TYPE 2 DIABETES MELLITUS WITH DIABETIC N 12/28/2016 LANA MARINELLI Ot F17.210 NICOTINE DEPENDENCE, CIGARETTES, UNCOMPL 12/28/2016 LANA MARINELLI Ot I10 ESSENTIAL (PRIMARY) HYPERTENSION 12/28/2016 LANA MARINELLI Ot J45.909 UNSPECIFIED ASTHMA, UNCOMPLICATED 12/28/2016 LANA MARINELLI Ot M25.471 EFFUSION, RIGHT ANKLE 12/28/2016 LANA MARINELLI Ot S93.401A SPRAIN OF UNSPECIFIED LIGAMENT OF RIGHT 12/28/2016 LANA MARINELLI Ot X50.0XXA OVEREXERTION FROM STRENUOUS MOVEMENT OR 12/28/2016 LANA MARINELLI Ot Z79.4 PENITENTIARY (CURRENT) USE OF INSULIN 12/28/2016 LANA MARINELLI Ot Z79.82 PENITENTIARY (CURRENT) USE OF ASPIRIN 12/28/2016 LANA MARINELLI Ot Z86.73 PRSNL HX OF TIA (TIA), AND CEREB INFRC W 01/03/2017 LANA MARINELLI Ot E11.40 TYPE 2 DIABETES MELLITUS WITH DIABETIC N 01/03/2017 LANA MARINELLI Ot F17.210 NICOTINE DEPENDENCE, CIGARETTES, UNCOMPL 01/03/2017 LANA MARINELLI Ot I10 ESSENTIAL (PRIMARY) HYPERTENSION 01/03/2017 LANA MARINELLI Ot J45.909 UNSPECIFIED ASTHMA, UNCOMPLICATED 01/03/2017 LANA MARINELLI Ot M25.471 EFFUSION, RIGHT ANKLE 01/03/2017 LANA MARINELLI Ot S93.401A SPRAIN OF UNSPECIFIED LIGAMENT OF RIGHT 01/03/2017 LANA MARINELLI Ot X50.0XXA OVEREXERTION FROM STRENUOUS MOVEMENT OR 01/03/2017 LANA MARINELLI Ot Z79.4 PENITENTIARY (CURRENT) USE OF INSULIN 01/03/2017 LANA MARINELLI Ot 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86 10*6 /uL 4.35-5.85 Venous blood hemoglobin measurement (mass/volume) 15.1 g/dL 11.5-16.0 Blood hematocrit (volume fraction) 42 % 35-52 Automated erythrocyte mean corpuscular volume 86 [foz_us] 80-99 Automated erythrocyte mean corpuscular hemoglobin (mass per erythrocyte) 31 pg 25-34 Automated erythrocyte mean corpuscular hemoglobin concentration measurement ( mass/volume) 36 g/dL 32-36 Automated erythrocyte distribution width ratio 12.3 % 10.0-14.5 Automated blood platelet count (count/volume) 209 10*3/uL 130-400 Automated blood platelet mean volume measurement 10.5 [foz_ us] 7.4-10.4 Automated blood neutrophils/100 leukocytes 84 % 42-75 Automated blood lymphocytes/100 leukocytes 8 % 12-44 Blood monocytes/100 leukocytes 8 % 0-12 Automated blood eosinophils/100 leukocytes 0 % 0-10 Automated blood basophils/100 leukocytes 0 % 0-10 Blood neutrophils automated count (number/volume) 9.0 10*3 1.8-7.8 Blood lymphocytes automated count (number/volume) 0.8 10*3 1.0-4.0 Blood monocytes automated count (number/volume) 0.8 10*3 0.0-1.0 Automated eosinophil count 0.0 10*3/uL 0.0-0.3 Automated blood basophil count (count/volume) 0.0 10*3/uL 0.0-0.1 PT panel in platelet poor plasma by coagulation assay - 08/18/16 19:15 Prothrombin time (PT) in platelet poor plasma by coagulation assay 12.5 s 12.2-14.7 INR in platelet poor plasma or blood by coagulation assay 1.0 0.8-1.4 Activated partial thromboplastin time (aPTT) in platelet poor plasma bycoagulation assay - 08/18/16 19:15 Activated partial thromboplastin time (aPTT) in platelet poor plasma bycoagulation assay 22 s 24-35 Blood lactic acid measurement (moles/volume) - 08/18/16 19:15 Blood lactic acid measurement (moles/volume) 1.7 mmol/L 0.5-2.0 Comprehensive metabolic panel - 08/18/16 19:15 Serum or plasma sodium measurement (moles/volume) 133 mmol/ L 135-145 Serum or plasma potassium measurement (moles/volume) 4.2 mmol/L 3.6-5.0 Serum or plasma chloride measurement (moles/volume) 96 mmol/ L 98-107 Carbon dioxide 16 mmol/L 21-32 Serum or plasma anion gap determination (moles/volume) 21 mmol/L 5-14 Serum or plasma urea nitrogen measurement (mass/volume) 44 mg/dL 7-18 Serum or plasma creatinine measurement (mass/volume) 1.45 mg /dL 0.60-1.30 Serum or plasma urea nitrogen/creatinine mass ratio 30 NRG Serum or plasma creatinine measurement with calculation of estimated glomerular filtration rate 38 NRG Serum or plasma glucose measurement (mass/volume) 472 mg/dL 70-105 Serum or plasma calcium measurement (mass/volume) 11.6 mg/ dL 8.5-10.1 Serum or plasma total bilirubin measurement (mass/volume) 1.2 mg/dL 0.1-1.0 Serum or plasma alkaline phosphatase measurement (enzymatic activity/volume) 119 U/L 40-136 Serum or plasma aspartate aminotransferase measurement (enzymatic activity/ volume) 21 U/L 5-34 Serum or plasma alanine aminotransferase measurement (enzymatic activity/volume ) 18 U/L 0-55 Serum or plasma protein measurement (mass/volume) 7.8 g/dL 6.4-8.2 Serum or plasma albumin measurement (mass/volume) 4.1 g/dL 3.2-4.5 Lipase - 08/18/16 19:15 Lipase 13 U/L 8-78 Bacterial blood culture - 08/18/16 19:15 Bacterial blood culture NG NRG Bacterial blood culture - 08/18/16 19:47 FREE TEXT EXTERNAL SENSITIVITY REPORTED 08/20 06:15 NRG QUANTITY OF GROWTH Isolated NR Bacterial blood culture [id number] [facility] Bacterial susceptibility panel - 08/18/16 19:47 Gentamicin susceptibility test by minimum inhibitory concentration <= NRG Trimethoprim/sulfamethoxazole susceptibility test by minimum inhibitoryconcentration <= NRG Ampicillin susceptibility test by minimum inhibitory concentration <= NRG Tobramycin susceptibility test by minimum inhibitory concentration <= NRG Cefazolin susceptibility test by minimum inhibitory concentration <= NRG Ceftriaxone susceptibility test by minimum inhibitory concentration <= NRG Ampicillin/sulbactam susceptibility test by minimum inhibitory concentration <= NRG Piperacillin/tazobactam susceptibility test by minimum inhibitory concentration <= NRG Ciprofloxacin susceptibility test by minimum inhibitory concentration <= NRG Meropenem susceptibility test by minimum inhibitory concentration <= NRG Aztreonam susceptibility test by minimum inhibitory concentration <= NRG Extended spectrum beta lactamase (ESBL) producing bacteria susceptibility test by minimum inhibitory concentration - NRG Capillary blood glucose measurement by glucometer (mass/volume) - 08/18/16 19: 48 Capillary blood glucose measurement by glucometer (mass/volume) 368 mg/dL 70-110 Complete urinalysis with reflex to culture - 08/18/16 20:30 Urine color determination YELLOW NRG Urine clarity determination VERY CLOUDY NRG Urine pH measurement by test strip 5 5- 9 Specific gravity of urine by test strip 1.015 1.016-1.022 Urine protein assay by test strip, semi-quantitative 3+ NEGATIVE Urine glucose detection by automated test strip 4+ NEGATIVE Erythrocytes detection in urine sediment by light microscopy 3+ NEGATIVE Urine ketones detection by automated test strip 4+ NEGATIVE Urine nitrite detection by test strip POSITIVE NEGATIVE Urine total bilirubin detection by test strip NEGATIVE NEGATIVE Urine urobilinogen measurement by automated test strip (mass/volume) NORMAL NORMAL Urine leukocyte esterase detection by dipstick 3+ NEGATIVE Automated urine sediment erythrocyte count by microscopy (number/high power field) [HPF] NRG Automated urine sediment leukocyte count by microscopy (number/high power field ) > [HPF] NRG Bacteria detection in urine sediment by light microscopy MODERATE NRG Crystals detection in urine sediment by light microscopy NONE NRG Casts detection in urine sediment by light microscopy NONE NRG Mucus detection in urine sediment by light microscopy NEGATIVE NRG Complete urinalysis with reflex to culture YES NRG Bacterial urine culture - 08/18/16 20:30 Bacterial urine culture [id number] NRG COLONY COUNT >100,000/ML NRG FTX;REPORTABLE SENSITIVITY REPORTED 08/19/16 1700 NRG FREE TEXT ENTRY 2 PLUS, NRG FREE TEXT ENTRY 3 MIXED GRAM POSITIVES <10,000/ML NRG Bacterial susceptibility panel - 08/18/16 20:30 Gentamicin susceptibility test by minimum inhibitory concentration <= NRG Trimethoprim/sulfamethoxazole susceptibility test by minimum inhibitoryconcentration <= NRG Ampicillin susceptibility test by minimum inhibitory concentration <= NRG Tobramycin susceptibility test by minimum inhibitory concentration <= NRG Cefazolin susceptibility test by minimum inhibitory concentration <= NRG Ceftriaxone susceptibility test by minimum inhibitory concentration <= NRG Ampicillin/sulbactam susceptibility test by minimum inhibitory concentration <= NRG Piperacillin/tazobactam susceptibility test by minimum inhibitory concentration <= NRG Ciprofloxacin susceptibility test by minimum inhibitory concentration <= NRG Meropenem susceptibility test by minimum inhibitory concentration <= NRG Nitrofurantoin susceptibility test by minimum inhibitory concentration <= NRG Aztreonam susceptibility test by minimum inhibitory concentration <= NRG Extended spectrum beta lactamase (ESBL) producing bacteria susceptibility test by minimum inhibitory concentration - NRG Capillary blood glucose measurement by glucometer (mass/volume) - 08/18/16 20: 34 Capillary blood glucose measurement by glucometer (mass/volume) 265 mg/dL 70-110 Capillary blood glucose measurement by glucometer (mass/volume) - 08/18/16 22: 06 Capillary blood glucose measurement by glucometer (mass/volume) 249 mg/dL 70-110 Complete blood count (CBC) with automated white blood cell (WBC) differential - 08/19/16 04:20 Blood leukocytes automated count (number/volume) 3.2 10*3/ uL 4.3-11.0 Blood erythrocytes automated count (number/volume) 4.12 10*6 /uL 4.35-5.85 Venous blood hemoglobin measurement (mass/volume) 12.6 g/dL 11.5-16.0 Blood hematocrit (volume fraction) 36 % 35-52 Automated erythrocyte mean corpuscular volume 88 [foz_us] 80-99 Automated erythrocyte mean corpuscular hemoglobin (mass per erythrocyte) 31 pg 25-34 Automated erythrocyte mean corpuscular hemoglobin concentration measurement ( mass/volume) 35 g/dL 32-36 Automated erythrocyte distribution width ratio 12.2 % 10.0-14.5 Automated blood platelet count (count/volume) 146 10*3/uL 130-400 Automated blood platelet mean volume measurement 10.9 [foz_ us] 7.4-10.4 Automated blood neutrophils/100 leukocytes 83 % 42-75 Automated blood lymphocytes/100 leukocytes 16 % 12-44 Blood monocytes/100 leukocytes 1 % 0-12 Automated blood eosinophils/100 leukocytes 0 % 0-10 Automated blood basophils/100 leukocytes 0 % 0-10 Blood neutrophils automated count (number/volume) 2.7 10*3 1.8-7.8 Blood lymphocytes automated count (number/volume) 0.5 10*3 1.0-4.0 Blood monocytes automated count (number/volume) 0.0 10*3 0.0-1.0 Automated eosinophil count 0.0 10*3/uL 0.0-0.3 Automated blood basophil count (count/volume) 0.0 10*3/uL 0.0-0.1 Comprehensive metabolic panel - 08/19/16 04:20 Serum or plasma sodium measurement (moles/volume) 140 mmol/ L 135-145 Serum or plasma potassium measurement (moles/volume) 2.9 mmol/L 3.6-5.0 Serum or plasma chloride measurement (moles/volume) 108 mmol /L 98-107 Carbon dioxide 21 mmol/L 21-32 Serum or plasma anion gap determination (moles/volume) 11 mmol/L 5-14 Serum or plasma urea nitrogen measurement (mass/volume) 35 mg/dL 7-18 Serum or plasma creatinine measurement (mass/volume) 1.07 mg /dL 0.60-1.30 Serum or plasma urea nitrogen/creatinine mass ratio 33 NRG Serum or plasma creatinine measurement with calculation of estimated glomerular filtration rate 54 NRG Serum or plasma glucose measurement (mass/volume) 150 mg/dL 70-105 Serum or plasma calcium measurement (mass/volume) 10.1 mg/ dL 8.5-10.1 Serum or plasma total bilirubin measurement (mass/volume) 1.3 mg/dL 0.1-1.0 Serum or plasma alkaline phosphatase measurement (enzymatic activity/volume) 110 U/L 40-136 Serum or plasma aspartate aminotransferase measurement (enzymatic activity/ volume) 15 U/L 5-34 Serum or plasma alanine aminotransferase measurement (enzymatic activity/volume ) 12 U/L 0-55 Serum or plasma protein measurement (mass/volume) 6.3 g/dL 6.4-8.2 Serum or plasma albumin measurement (mass/volume) 3.3 g/dL 3.2-4.5 Capillary blood glucose measurement by glucometer (mass/volume) - 08/19/16 07: 12 Capillary blood glucose measurement by glucometer (mass/volume) 149 mg/dL 70-110 Capillary blood glucose measurement by glucometer (mass/volume) - 08/19/16 09: 56 Capillary blood glucose measurement by glucometer (mass/volume) 201 mg/dL 70-110 Capillary blood glucose measurement by glucometer (mass/volume) - 08/19/16 14: 41 Capillary blood glucose measurement by glucometer (mass/volume) 155 mg/dL 70-110 Capillary blood glucose measurement by glucometer (mass/volume) - 08/19/16 20: 49 Capillary blood glucose measurement by glucometer (mass/volume) 153 mg/dL 70-110 Complete blood count (CBC) with automated white blood cell (WBC) differential - 08/20/16 04:25 Blood leukocytes automated count (number/volume) 9.3 10*3/ uL 4.3-11.0 Blood erythrocytes automated count (number/volume) 4.17 10*6 /uL 4.35-5.85 Venous blood hemoglobin measurement (mass/volume) 12.9 g/dL 11.5-16.0 Blood hematocrit (volume fraction) 36 % 35-52 Automated erythrocyte mean corpuscular volume 86 [foz_us] 80-99 Automated erythrocyte mean corpuscular hemoglobin (mass per erythrocyte) 31 pg 25-34 Automated erythrocyte mean corpuscular hemoglobin concentration measurement ( mass/volume) 36 g/dL 32-36 Automated erythrocyte distribution width ratio 11.9 % 10.0-14.5 Automated blood platelet count (count/volume) 176 10*3/uL 130-400 Automated blood platelet mean volume measurement 10.4 [foz_ us] 7.4-10.4 Automated blood neutrophils/100 leukocytes 67 % 42-75 Automated blood lymphocytes/100 leukocytes 21 % 12-44 Blood monocytes/100 leukocytes 11 % 0-12 Automated blood eosinophils/100 leukocytes 0 % 0-10 Automated blood basophils/100 leukocytes 0 % 0-10 Blood neutrophils automated count (number/volume) 6.2 10*3 1.8-7.8 Blood lymphocytes automated count (number/volume) 2.0 10*3 1.0-4.0 Blood monocytes automated count (number/volume) 1.1 10*3 0.0-1.0 Automated eosinophil count 0.0 10*3/uL 0.0-0.3 Automated blood basophil count (count/volume) 0.0 10*3/uL 0.0-0.1 Comprehensive metabolic panel - 08/20/16 04:25 Serum or plasma sodium measurement (moles/volume) 134 mmol/ L 135-145 Serum or plasma potassium measurement (moles/volume) 3.0 mmol/L 3.6-5.0 Serum or plasma chloride measurement (moles/volume) 103 mmol /L 98-107 Carbon dioxide 20 mmol/L 21-32 Serum or plasma anion gap determination (moles/volume) 11 mmol/L 5-14 Serum or plasma urea nitrogen measurement (mass/volume) 11 mg/dL 7-18 Serum or plasma creatinine measurement (mass/volume) 0.85 mg /dL 0.60-1.30 Serum or plasma urea nitrogen/creatinine mass ratio 13 NRG Serum or plasma creatinine measurement with calculation of estimated glomerular filtration rate > NRG Serum or plasma glucose measurement (mass/volume) 107 mg/dL 70-105 Serum or plasma calcium measurement (mass/volume) 9.6 mg/dL 8.5-10.1 Serum or plasma total bilirubin measurement (mass/volume) 0.7 mg/dL 0.1-1.0 Serum or plasma alkaline phosphatase measurement (enzymatic activity/volume) 85 U/L 40-136 Serum or plasma aspartate aminotransferase measurement (enzymatic activity/ volume) 18 U/L 5-34 Serum or plasma alanine aminotransferase measurement (enzymatic activity/volume ) 14 U/L 0-55 Serum or plasma protein measurement (mass/volume) 6.0 g/dL 6.4-8.2 Serum or plasma albumin measurement (mass/volume) 3.1 g/dL 3.2-4.5 Hemoglobin A1c - 08/20/16 04:25 Hemoglobin A1c 14.3 % 4.5-6.2 Capillary blood glucose measurement by glucometer (mass/volume) - 08/20/16 11: 14 Capillary blood glucose measurement by glucometer (mass/volume) 167 mg/dL 70-110 Encounters ACCT No. Visit Date/Time Discharge Status Pt. Type Provider Facility Loc./Unit Complaint [id number] 12/28/2016 09:26:00 2016 11:49:00 DIS Emergency LANA MARINELLI [facility] ER FALL/R FOOT INJ [id number] 08/18/2016 21:13:00 2016 11:55:00 DIS Inpatient ANA AQUINO, JALEN Stiles [facility] 4TH SEPSIS,UTI,N/V,HYPERGLYCEMIA [id number] 07/02/2015 16:13:00 2014 11:51:00 DIS Inpatient AWA PERKINS DO [facility] 4TH UNCONTROLLED DM ACUTE RENAL FAILURE LEUKOCYTOSIS [id number] 06/03/2015 21:21:00 2014 15:15:00 DIS Inpatient МАРИЯ ROBIN MD [facility] 4TH UNCONTROLLED DIABETES, HYPOTENSION,ARF, ANEMIA,UTI [id number] 05/23/2015 20:16:00 2014 15:50:00 DIS Inpatient JAIME GOLDBERG MD [facility] CSD R ARM/HAND AND LEG PARESTHESIAS, UNCONTROLLED DIABE [id number] 01/10/2015 08:48:00 2014 11:33:00 DIS Emergency CLAUDETTE PAULA MD [facility] ER FALL/RIGHT ARM INJURY [id number] 01/10/2015 08:47:00 Document Registration [id number] 01/10/2015 08:47:00 Document Registration [id number] 01/10/2015 08:47:00 Document Registration [id number] 01/10/2015 08:47:00 Document Registration
[2017-01-30] MEDS ORDERED: MIRT15TA6 (23:09)
--- NOTE | 2017-01-30 23:26 | ED Headache ---
General Chief Complaint: Head/Cervical Problems Stated Complaint: HEADACHE Nursing Triage Note: c/o global headache x3 days, worse today. Nursing Sepsis Screen: No Definite Risk Source: patient, spouse Exam Limitations: no limitations History of Present Illness Time seen by provider: 23:16 Initial Comments Patient presents with her spouse by private conveyance to the ER with chief complaint of headache for the past 3 days. She is been using her own [place] and Tylenol and it worked first but now it is eating worse. She feels that the headache is starting in her temporal region and radiates around to the back of her head. She is not having any facial pain nor she having any vision changes. She does not have any sinus drainage or right allergies. She has no ears feeling under water or popping sensation. She states this happened once before and since she cannot take any NSAIDs after a bad reaction she was given a shot of Phenergan and this helped a lot. Allergies and Home Medications Allergies Coded Allergies: Penicillins (Unverified Allergy, Unknown, 06/03/15) ibuprofen (Verified Allergy, Unknown, 02/18/07) Home Medications Aspirin 81 Mg Tablet, 81 MG PO DAILY, (Reported) Gabapentin 300 Mg Capsule, 300 MG PO TID, (Reported) Hydrocodone/Acetaminophen 1 Each Tablet, 1 TAB PO TID PRN for PAIN, (Reported) Insulin Aspart 300 Units/3 Ml Solution, 5 UNITS SQ AC for 30 Days LAST FILLED 04-21-16 Prescribed by: JALEN PEREZ on 08/20/16 1049 Insulin Detemir 100 Unit/1 Ml Insuln.pen, 15 UNIT SQ HS for 30 Days LAST FILLED 04-21-16 Prescribed by: JALEN PEREZ on 08/20/16 1049 Lisinopril 20 Mg Tablet, 20 MG PO DAILY, (Reported) LAST FILLED 05-21-16 #30 Metoclopramide HCl 10 Mg Tablet, 10 MG PO TID PRN for STOMACH UPSET, (Reported) Mirtazapine 15 Mg Tablet, #30 (Reported) Rosuvastatin Calcium 20 Mg Tablet, 20 MG PO HS, (Reported) LAST FILLED 05-21-16 #30 Constitutional: No chills, No diaphoresis, No fever, No malaise Eyes: Denies Blindness, Denies Blurred Vision Ears, Nose, Mouth, Throat: denies ear pain, denies ear discharge Respiratory: No cough, No short of breath Cardiovascular: No chest pain, No edema Gastrointestinal: No constipation, No diarrhea, No nausea Genitourinary: No dysuria, frequency Musculoskeletal: No back pain, No joint pain Skin: No pruritus, No rash Psychiatric/Neurological: See HPI, Headache, Denies Numbness, Denies Paresthesia Past [id number] Hx Patient Social History Alcohol Use: Denies Use Recreational Drug Use: No Smoking Status: Former Smoker Type Used: Cigarettes Recent Foreign Travel: No Contact w/Someone Who Travel: No Recent Infectious Disease Expo: No Recent Hopitalizations: No Immunizations Up To Date Tetanus Booster (TDap): Unknown Seasonal Allergies Seasonal Allergies: No Surgeries HX Surgeries: Yes (EARDRUM,X4 C-SECTIONS X2 FEMUR RODS,CARPEL TUNNEL,SHEA, UMB.HERNIA) Surgeries: Abdominal, Section, Ear Surgery, Gallbladder, Orthopedic, Tubal Ligation Respiratory Hx Respiratory Disorders: Yes (PLEURAL EFFUSION--RESOLVED) Respiratory Disorders: Asthma Cardiovascular Hx Cardiac Disorders: Yes Cardiac Disorders: High Cholesterol, Hypertension Neurological Hx Neurological Disorders: Yes (CVA 12/2012--RIGHT SIDE WEAKNESS RESOLVED. ) Neurological Disorders: Headaches /Migraines, Neuropathy, Stroke Reproductive System : No Hx Reproductive Disorders: No Sexually Transmitted Disease: No HIV/AIDS: No Female Reproductive Disorders: Denies [employer] History: Tubal Ligation Genitourinary Hx Genitourinary Disorders: Yes Genitourinary Disorders: Bladder Infection, Renal Failure Gastrointestinal Hx Gastrointestinal Disorders: Yes (GASTROPARESIS) Gastrointestinal Disorders: Gastroesophageal Reflux Musculoskeletal Hx Musculoskeletal Disorders: Yes (BILAT FEMUR FX'S/ RODS, L CARPAL TUNNEL; CHRONIC GEN. PAIN) Musculoskeletal Disorders: Degenerate Disk Disease, Chronic Back Pain, Fractures Endocrine Hx Endocrine Disorders: Yes Endocrine Disorders: Diabetes, Insulin dep HEENT HX ENT Disorders: Yes (ONLY HAS 2 WISDOM TEETH. NO DENTURES. MULT EAR SURGERIES ) HEENT Disorders: Chronic Ear Infection Cancer Hx Cancer: No Psychosocial Hx Psychiatric Problems: Yes (MOOD DISORDER) Behavioral Health Disorders: Sleep Difficulties, Anxiety, Personality Disorder , Depression Integumentary HX Skin/Integumentary Disorder: No Blood Transfusions Hx Blood Disorders: No Adverse Reaction to a Blood Tr: No Family Medical History Significant Family History: Heart Disease Family Medial History: Cardiovascular disease 19 FATHER 19 MOTHER G8 BROTHER Diabetes mellitus 19 FATHER FH: chronic obstructive pulmonary disease G8 BROTHER Prostate cancer 19 FATHER Physical Exam Vital Signs Vital Sign - Last 12Hours 01/30/17 23:09 Temp 97.7 Pulse 96 Resp 18 B/P (MAP) 183/117 Pulse Ox 96 O2 Delivery Room Air Capillary Refill : Less Than 3 Seconds General Appearance: WD/WN, mild distress HEENT: PERRL/EOMI, normal ENT inspection, TMs normal, pharynx normal, other ( mild TM sclerosis noted.) Neck: non-tender, normal inspection Cardiovascular: normal peripheral pulses, regular rate, rhythm, no edema Respiratory: lungs clear, normal breath sounds Gastrointestinal: normal bowel sounds, non tender, soft Extremities: no pedal edema, normal capillary refill Progress/Results/Core Measures Results/Orders Lab Results Laboratory Tests Test 01/30/17 23:50 01/31/17 00:39 Range/Units White Blood Count 6.7 4.3-11.0 10^3/uL Red Blood Count 4.25 L 4.35-5.85 10^6/uL Hemoglobin 13.3 11.5-16.0 G/DL Hematocrit 37 35-52 % Mean Corpuscular Volume 86 80-99 FL Mean Corpuscular Hemoglobin 31 25-34 PG Mean Corpuscular Hemoglobin Concent 36 32-36 G/DL Red Cell Distribution Width 11.7 10.0-14.5 % Platelet Count 227 130-400 10^3/uL Mean Platelet Volume 10.5 H 7.4-10.4 FL Neutrophils (%) (Auto) 41 L 42-75 % Lymphocytes (%) (Auto) 48 H 12-44 % Monocytes (%) (Auto) 9 0-12 % Eosinophils (%) (Auto) 3 0-10 % Basophils (%) (Auto) 0 0-10 % Neutrophils # (Auto) 2.7 1.8-7.8 X 10^3 Lymphocytes # (Auto) 3.2 1.0-4.0 X 10^3 Monocytes # (Auto) 0.6 0.0-1.0 X 10^3 Eosinophils # (Auto) 0.2 0.0-0.3 10^3/uL Basophils # (Auto) 0.0 0.0-0.1 10^3/uL Erythrocyte Sedimentation Rate 55 H 0-30 MM/HR Sodium Level 130 L 135-145 MMOL/L Potassium Level 3.5 L 3.6-5.0 MMOL/L Chloride Level 96 L 98-107 MMOL/L Carbon Dioxide Level 20 L 21-32 MMOL/L Anion Gap 14 5-14 MMOL/L Blood Urea Nitrogen 16 7-18 MG/DL Creatinine 1.21 0.60-1.30 MG/DL Estimat Glomerular Filtration Rate 47 BUN/Creatinine Ratio 13 Glucose Level 506 *H 70-105 MG/DL Calcium Level 11.0 H 8.5-10.1 MG/DL Total Bilirubin 0.4 0.1-1.0 MG/DL Aspartate Amino Transf (AST/SGOT) 16 5-34 U/L Alanine Aminotransferase (ALT/SGPT) 18 0-55 U/L Alkaline Phosphatase 157 H 40-136 U/L C-Reactive Protein High Sensitivity 0.91 H 0.00-0.50 MG/DL Total Protein 7.7 6.4-8.2 GM/DL Albumin 3.7 3.2-4.5 GM/DL Urine Color YELLOW Urine Clarity CLEAR Urine pH 5 5-9 Urine Specific [place] 1.015 L 1.016-1.022 Urine Protein 3+ H NEGATIVE Urine Glucose (UA) 4+ H NEGATIVE Urine Ketones NEGATIVE NEGATIVE Urine Nitrite NEGATIVE NEGATIVE Urine Bilirubin NEGATIVE NEGATIVE Urine Urobilinogen NORMAL NORMAL MG/DL Urine Leukocyte Esterase NEGATIVE NEGATIVE Urine RBC (Auto) 2+ H NEGATIVE Urine RBC 2-5 H /HPF Urine WBC NONE /HPF Urine Squamous Epithelial Cells 5-10 /HPF Urine Crystals NONE /LPF Urine Bacteria NEGATIVE /HPF Urine Casts NONE /LPF Urine Mucus NEGATIVE /LPF Urine Culture Indicated NO My Orders Orders - THAO TOBAR Cbc With Automated Diff (01/30/17 23:26) Comprehensive Metabolic Panel (01/30/17 23:26) Hs C Reactive Protein (01/30/17 23:26) Erythrocyte Sedimentation Rate (01/30/17 23:26) Promethazine Injection (Phenergan Injec (01/30/17 23:30) Ua Culture If Indicated (01/31/17 00:33) Medications Given in ED Current Medications Medications Dose Ordered Sig/Dianne Route Start Time Stop Time Status Last Admin Dose Admin Promethazine HCl 25 mg ONCE ONCE IM 01/30/17 23:30 01/30/17 23:31 DC 01/30/17 23:42 25 MG Vital Signs/I&O Vital Sign - Last 12Hours 01/30/17 23:09 Temp 97.7 Pulse 96 Resp 18 B/P (MAP) 183/117 Pulse Ox 96 O2 Delivery Room Air Blood Pressure Mean: 139 Progress Note : Time: 00:55 Progress Note Sugar elevated over 500 which could be consistent with DKA which would cause headache. However it is definitely causing dehydration. Acetone was normal. No strong evidence of acidemia. Encourage her to drink plenty of fluids and she is tolerating this by mouth without any nausea. We'll let her go home. She should follow-up Thursday morning with her PCP. Discussed her insulin use. Departure Impression Impression: Primary Impression: Headache Qualified Codes: R51 - Headache Disposition: HOME, SELF-CARE Condition: Improved Departure-Patient Inst. Decision time for Depature: 00:56 Referrals: [facility] (PCP/Family) Primary Care Physician Patient Instructions: Headache, Adult (DC) Add. Discharge Instructions: Drink plenty of fluids and use Tylenol as appropriate to control your pain. You can also use cool compresses. Follow up with your PCP about her blood sugars Thursday. If you're having new or worsening symptoms please return to the ER. All discharge instructions reviewed with patient and/or family. Voiced understanding. Scripts Promethazine HCl (Promethazine Tablet) 25 Mg Tablet 25 MG PO Q6H Y for NAUSEA/VOMITING, #20 TAB 0 Refills Prov: THAO TOBAR 01/31/17 Copy Copies To 1: AWA PERKINS DO THAO TOBAR Jan 30, 2017 23:26
[2017-01-30] MEDS ORDERED: PROMETHAZINE INJ 25 MG/ML (PHENERGAN) AMP IM ONE (23:30)
[2017-01-30 23:58] LABS: BASOPHILS % (AUTO) 0 % (0-10); EOSINOPHILS # (AUTO) 0.2 10^3/uL (0.0-0.3); EOSINOPHILS % (AUTO) 3 % (0-10); LYMPHOCYTES # (AUTO) 3.2 X 10^3 (1.0-4.0); LYMPHOCYTES % (AUTO) 48 % (12-44); MEAN CORPUSCULAR HEMOGLOBIN 31 PG (25-34); MEAN CORPUSCULAR HGB CONC 36 G/DL (32-36); MEAN CORPUSCULAR VOLUME 86 FL (80-99); MEAN PLATELET VOLUME 10.5 FL (7.4-10.4); MONOCYTES # (AUTO) 0.6 X 10^3 (0.0-1.0); MONOCYTES % (AUTO) 9 % (0-12); NEUTROPHILS # (AUTO) 2.7 X 10^3 (1.8-7.8); NEUTROPHILS % (AUTO) 41 % (42-75); PLATELET COUNT 227 10^3/uL (130-400); RED BLOOD COUNT 4.25 10^6/uL (4.35-5.85); RED CELL DISTRIBUTION WIDTH 11.7 % (10.0-14.5); WHITE BLOOD COUNT 6.7 10^3/uL (4.3-11.0)
[2017-01-31 00:17] LABS: ALBUMIN 3.7 GM/DL (3.2-4.5); BILIRUBIN,TOTAL 0.4 MG/DL (0.1-1.0); CREATININE SERUM 1.21 MG/DL (0.60-1.30); POTASSIUM 3.5 MMOL/L (3.6-5.0); TOTAL PROTEIN 7.7 GM/DL (6.4-8.2); hs C REACTIVE PROTEIN 0.91 MG/DL (0.00-0.50)
[2017-01-31 00:24] LABS: ERYTHROCYTE SEDIMENTATION RATE 55 MM/HR (0-30)
[2017-01-31 00:44] LABS: BILIRUBIN,URINE NEGATIVE (NEGATIVE); KETONES,URINE NEGATIVE (NEGATIVE); LEUKOCYTE ESTERASE ,URINE NEGATIVE (NEGATIVE); NITRITE,URINE NEGATIVE (NEGATIVE); PH,URINE 5 (5-9); PROTEIN,URINE 3+ (NEGATIVE); UROBILINOGEN,URINE NORMAL (NORMAL)
[2017-01-31] MEDS ORDERED: PROM25TA14 PO (00:57)
[2017-01-31 01:03] VITALS: BP 165/97
== END 2017-01-31 01:01 | disposition home or self-care (01) ==
LOC: EDUNIT# 22:58 → ER 23:00
DX: R51 Headache (principal); G47.9 Sleep disorder, unspecified; F41.9 Anxiety disorder, unspecified; F32.9 Major depressive disorder, single episode, unspecified; F60.89 Other specific personality disorders; E11.40 Type 2 diabetes mellitus with diabetic neuropathy, unspecified; K21.9 Gastro-esophageal reflux disease without esophagitis; E78.00 Pure hypercholesterolemia, unspecified; I10 Essential (primary) hypertension; J45.909 Unspecified asthma, uncomplicated; Z98.51 Tubal ligation status; Z86.73 Personal history of transient ischemic attack (TIA), and cerebral infarction without residual deficits; Z87.891 Personal history of nicotine dependence; Z98.890 Other specified postprocedural states; Z79.82 Long term (current) use of aspirin; Z79.4 Long term (current) use of insulin
CPT/HCPCS: 36415; 80053; 81000; 85025; 85652; 86141; 99284

== ENCOUNTER 2018-01-18 10:52 | Inpatient (IN) | payer MEDICARE ==
[~2018-01-18] VITALS: Ht 157.5 cm; Wt 58.1 kg
[~2018-01-18 10:52] MED LIST changes: +MIRT15TA6; +PROM25TA14 PO; -ROSU20TA28 PO; +ROSU20TA31 PO
[2018-01-18] MEDS ORDERED: NS IV 1000 ML 1,000 ML IV ONE ×2 (10:56→11:01)
--- OUTSIDE RECORDS SUMMARY | 2018-01-18 10:59 | XMS REPORT ---
Author Author PATRICK TINAJERO Organization [facility] Address [address] [place] [address] Care Team Providers Care Water Quality Tester Name Role Phone PATRICK TINAJERO Unavailable PROBLEMS Type Condition ICD9-CM Code [id number] Code Onset Dates Condition Status SNOMED Code Problem Degenerative disc disease, lumbar M51.36 Active 97320433 Problem HTN (hypertension) I10 Active 41667459 Problem Insomnia G47.00 Active 312751885 Problem Leg cramps R25.2 Active 275157178 Problem Obsessive-compulsive disorder, unspecified type F42.9 Active 880726426 Problem Post-traumatic stress disorder F43.10 Active 32579200 Problem CAD (coronary artery disease) I25.10 Active 60658416 Problem Major depressive disorder, recurrent episode, moderate F33.1 Active 846977239 Problem Type 2 diabetes mellitus with hyperglycemia E11.65 Active 004708629861899 Problem Diabetic neuropathy E11.40 Active 955099939 Problem Hyperlipidemia E78.5 Active 16704537 Problem Chronic pain G89.29 Active 12609159 Problem Diabetes E11.9 Active 82800799 Problem Gastritis K29.70 Active 1463058 ALLERGIES Unknown Allergies SOCIAL HISTORY No smoking Hx information available PLAN OF CARE VITAL SIGNS MEDICATIONS Medication Instructions Dosage Frequency Start Date End Date Duration Status Hydrocodone-Acetaminophen 10-325 MG Orally 3 times a day 1 tablet as needed 8h Jul, Active RESULTS No Results PROCEDURES No Known procedures IMMUNIZATIONS No Known Immunizations
--- OUTSIDE RECORDS SUMMARY | 2018-01-18 10:59 | XMS REPORT ---
Author Author PATRICK Peralta Organization [facility] Address [address] [place] [address] Care Team Providers Care Pharmacy Tech Customer Service Name Role Phone PATRICK Peralta Unavailable PROBLEMS Type Condition ICD9-CM Code [id number] Code Onset Dates Condition Status SNOMED Code Problem Type 2 diabetes mellitus with hyperglycemia E11.65 Active [id number] Problem Obsessive-compulsive disorder, unspecified type F42.9 Active 157960082 Problem Major depressive disorder, recurrent episode, moderate F33.1 Active 812154489 Problem Falls frequently R29.6 Active 292775956 Problem Diabetes E11.9 Active 684266749 Problem Type 2 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 E11.49 Active 61855790 Problem History of pulmonary embolism Z86.711 Active 205641475 Problem 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.4 Active 886427493 Problem 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.29 Active 00465392 Problem Hyperlipidemia E78.5 Active 30008004 Problem Insomnia G47.00 Active 986679106 Problem HTN (hypertension) I10 Active 36524346 Problem Chronic pain G89.29 Active 63105986 Problem CAD (coronary artery disease) I25.10 Active 61857757 Problem Degenerative disc disease, lumbar M51.36 Active 86936280 Problem Post-traumatic stress disorder F43.10 Active 04608403 ALLERGIES No Information ENCOUNTERS Encounter Location Date Diagnosis [facility] [address] [facility] [id number] [address] November, [facility] [id number] [place] [address] 04633- 8621 Sep, Diabetes E11.9 [facility] [id number] [address] Sep, Chronic pain G89.29 [facility] [address] [address] Sep, [facility] [id number] [place] [address] 90952- 9155 Sep, Falls frequently R29.6 ; residential 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.4 and Type 2 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 E11.49 [facility] [id number] [place] [address] 51642- 0311 Sep, [facility] [id number] [place] [address] 25108- 9555 Sep, Diabetes E11.9 [facility] [id number] [place] [address] 45145- 8648 Aug, [facility] [address] [id number] [address] 2341 Aug, Chronic pain G89.29 [facility] [address] [address] 89[address] Aug, [facility] [address] [place] [address] 10181- 4133 Aug, Chronic pain G89.29 [facility] [address] [address] 4785 Jul, [facility] [address] [address] 2012 Jul, Diabetes E11.9 and 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.29 [facility] [address] [address] 3114 Jul, 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.29 [facility] [address] [address] 9175 Jul, [facility] [address] [address] 2214 Jul, Chronic pain G89.29 [facility] [id number] [place] [address] 33691- 7234 Jun, Diabetes E11.9 [facility] [id number] [place] [address] 80471- 0859 Jun, Chronic pain G89.29 [facility] [id number] [place] [address] 91282- 2334 Jun, Diabetes E11.9 ; Atypical chest pain R07.89 ; 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.4 ; 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.29 ; Type 2 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 E11.49 ; History of pulmonary embolism Z86.711 and History of CVA (cerebrovascular accident) Z86.73 [facility] [id number] [place] [address] 80798- 9078 May, [facility] [id number] [place] [address] 20615- 6839 May, Chronic pain G89.29 [facility] [id number] [place] [address] 42375- 1598 Apr, Chronic pain G89.29 [facility] [id number] [place] [address] 98750- 3931 Apr, [facility] [id number] [place] [address] 60489- 4529 Mar, Chronic pain G89.29 [facility] [id number] [place] [address] 52307- 6230 18 Mar, 2017 Diabetes E11.9 [facility] [id number] [place] [address] 81682- 8961 Mar, [facility] [id number] [place] [address] 95024- 3600 Mar, Degenerative disc disease, lumbar M51.36 [facility] [id number] [place] [address] 22683- 2644 Feb, Diabetes E11.9 [facility] [id number] [place] [address] 36824- 9793 23 Feb, 2017 Diabetes E11.9 [facility] [address] 66290- 2998 16 Feb, 2017 Diabetes E11.9 ; HTN (hypertension) I10 ; Diabetic neuropathy E11.40 and Leg cramps R25.2 [facility] [address] 23149- 6964 15 Feb, 2017 Sprain of calcaneofibular ligament of right ankle, subsequent encounter S93.411D ; Major depressive disorder, recurrent episode, moderate F33.1 ; Diabetes E11.9 ; Hyperlipidemia E78.5 ; Post-traumatic stress disorder F43.10 and Other irritable bowel syndrome K58.8 [facility] [id number] [place] [address] 80251- 4157 14 Feb, 2017 Major depressive disorder, recurrent episode, moderate F33.1 ; Post-traumatic stress disorder F43.10 and Obsessive-compulsive disorder , unspecified type F42.9 [facility] [id number] [place] [address] 99485- 2289 Feb, [facility] [id number] [place] [address] 05822- 1015 Feb, Post-traumatic stress disorder F43.10 and Major depressive disorder, recurrent, moderate F33.1 [facility] [id number] [place] [address] 78711- 9019 Feb, Diabetes E11.9 [facility] [id number] [place] [address] 14990- 7091 Feb, Degenerative disc disease, lumbar M51.36 [facility] [address] 80411- 9522 Feb, Post-traumatic stress disorder F43.10 and Major depressive disorder, recurrent, moderate F33.1 [facility] [id number] [place] [address] 63162- 9534 Feb, [facility] [address] [address]- 4412 Feb, Diabetes E11.9 [facility] [address] [facility] [id number] [address] 4156 Jan, Diabetes E11.9 [facility] [address], [place] [address]- 9976 Jan, Post-traumatic stress disorder F43.10 and Major depressive disorder, recurrent, moderate F33.1 [facility] [address] [facility] [id number] [place] [address] 68517- 8438 Jan, Diabetes E11.9 [facility] [id number] [place] [address] [id number]- 0406 Jan, Diabetes E11.9 [facility] [address] [place] [address] 38431- 7337 Jan, [facility] [address] [place] [address] 90649- 9294 Jan, [facility] [address] [place] [address] 72186- 8281 Jan, Post-traumatic stress disorder F43.10 and Major depressive disorder, recurrent, moderate F33.1 [facility] [address] [address]- 8285 Jan, [facility] [address] [place] [address] 70946- 2194 Jan, Major depressive disorder, recurrent episode, moderate F33.1 ; Post-traumatic stress disorder F43.10 and Obsessive-compulsive disorder , unspecified type F42.9 [facility] [address] [address]- 1721 Jan, [facility] [id number] [place] [address] 43565- 9568 Jan, Diabetes E11.9 [facility] [id number] [place] [address] 19060- 4443 13 Jan, 2017 [facility] [address] [place] [address] 99725- 1335 13 Jan, 2017 Sprain of calcaneofibular ligament of right ankle, subsequent encounter S93.411D [facility] [address] [place] [address] 22636- 6177 13 Jan, 2017 Post-traumatic stress disorder F43.10 and Major depressive disorder, recurrent, moderate F33.1 [facility] [id number] [place] [address] 74723- 1830 07 Jan, 2017 Diabetes E11.9 [facility] [id number] [place] [address] 044292- 9961 16 Dec, 2016 Major depressive disorder, recurrent episode, moderate F33.1 ; Post-traumatic stress disorder F43.10 and Obsessive-compulsive disorder , unspecified type F42.9 [facility] [id number] [place] [address] 26121- 4892 15 Dec, 2016 [facility] [id number] [place] [address] 56889- 3473 14 Dec, 2016 Sprain of calcaneofibular ligament of right ankle, subsequent encounter S93.411D [facility] [address] [place] [address] 12995- 6072 13 Dec, 2016 Post-traumatic stress disorder F43.10 and Major depressive disorder, recurrent, moderate F33.1 [facility] [address] [place] [address] 81629- 6709 13 Dec, 2016 Sprain of calcaneofibular ligament of right ankle, subsequent encounter S93.411D [facility] [id number] [place] [address] 98397- 9252 12 Dec, 2016 Hyperlipidemia E78.5 [facility] [address] [place] [address] 44946- 4812 08 Dec, 2016 [facility] [id number] [place] [address] 87223- 2827 Dec, Diabetes E11.9 ; Diabetic neuropathy E11.40 ; Degenerative disc disease, lumbar M51.36 ; Hyperlipidemia E78.5 ; Insomnia G47.00 ; CAD ( coronary artery disease) I25.10 ; Major depressive disorder, recurrent, moderate F33.1 ; Post-traumatic stress disorder F43.10 and Other irritable bowel syndrome K58.8 [place] [place] [address] 73750- 3879 November, Diabetic neuropathy E11.40 and Hyperlipidemia E78.5 [facility] [address] 93030- 8104 November, Degenerative disc disease, lumbar M51.36 [facility] [address] 87504- 2914 Oct, [address] 10574- 0436 Oct, Degenerative disc disease, lumbar M51.36 [facility] [address] 04783- 4030 Sep, Degenerative disc disease, lumbar M51.36 and HTN ( hypertension) I10 [address] 16215- 0917 Sep, Diabetic neuropathy E11.40 ; HTN (hypertension) I10 ; Degenerative disc disease, lumbar M51.36 ; Hyperlipidemia E78.5 ; Insomnia G47.00 ; CAD (coronary artery disease) I25.10 and Diabetes E11.9 [facility] [id number] [place] [address] 07959- 6258 Aug, [facility] [address] 23030- 0355 Aug, Type 2 diabetes mellitus with hyperglycemia E11.65 [facility] [id number] [place] [address] 17051- 1627 Aug, [facility] [address] 69271- 2546 Jul, [facility] [address] 5166 Jul, [facility] [address], [place] [address]- 4316 Jun, [facility] [address], [place] [address]- 2796 Jun, [facility] [address], [place] [address]- 8173 Jun, [facility] [address] [address]- 2423 Jun, [facility] [address] 7947 May, Major depressive disorder, recurrent episode, moderate F33.1 and Post-traumatic stress disorder F43.10 [facility] [address] [address]- 9291 May, Major depressive disorder, recurrent episode, moderate F33.1 and Post-traumatic stress disorder F43.10 [facility] [address], [place] [address]- 5336 May, Diabetes E11.9 ; Diabetic neuropathy E11.40 ; HTN ( hypertension) I10 ; Gastritis K29.70 ; Hyperlipidemia E78.5 ; Insomnia G47.00 and Major depressive disorder, recurrent, moderate F33.1 [facility] [address] [address]- 2277 May, Major depressive disorder, recurrent episode, moderate F33.1 [facility] [address] 6668 Apr, [facility] [address] 2302 Apr, Major depressive disorder, recurrent episode, moderate F33.1 and Post-traumatic stress disorder F43.10 [facility] [id number] [place] [address] 95324- 5137 Apr, Diabetes E11.9 ; Diabetic neuropathy E11.40 ; Degenerative disc disease, lumbar M51.36 ; HTN (hypertension) I10 ; Hyperlipidemia E78.5 ; Chronic pain G89.29 ; CAD (coronary artery disease) I25.10 and Major depressive disorder, recurrent, moderate F33.1 [facility] [id number] [place] [address] 61659- 1412 Apr, Major depressive disorder, recurrent episode, moderate F33.1 and Post-traumatic stress disorder F43.10 [facility] [id number] [place] [address] 30576- 2485 Apr, Major depressive disorder, recurrent episode, moderate F33.1 and Post-traumatic stress disorder F43.10 [facility] [id number] [place] [address] 68626- 5516 Apr, Major depressive disorder, recurrent episode, moderate F33.1 and Unspecified episodic mood disorder F39 [facility] [id number] [place] [address] 09121- 0992 Apr, Chronic pain G89.29 ; Diabetic neuropathy E11.40 ; HTN ( hypertension) I10 ; Insomnia G47.00 ; CAD (coronary artery disease) I25.10 ; Hyperlipidemia E78.5 ; Degenerative disc disease, lumbar M51.36 ; Diabetes E11.9 and Gastritis K29.70 [facility] [id number] [place] [address] 08502- 3778 Sep, [facility] [id number] [place] [address] 34393- 8161 Aug, [facility] [id number] [place] [address] 92640- 4806 Jul, Major depressive disorder, recurrent episode, moderate F33.1 [facility] [id number] [place] [address] 55735- 8104 Jul, Unspecified episodic mood disorder F39 [facility] [address] [place] [address]- 5932 Jul, [facility] [id number] [place] [address] 66515- 0541 Jul, [facility] [id number] [place] [address] 02999- 5397 Jul, [facility] [id number] [place] [address] 93126- 5729 Jul, Type 2 diabetes mellitus with hyperglycemia E11.65 ; Diabetic neuropathy E11.40 ; Degenerative disc disease, lumbar M51.36 ; HTN ( hypertension) I10 ; Gastritis K29.70 ; Hyperlipidemia E78.5 and CAD (coronary artery disease) I25.10 [facility] [id number] [place] [address] 06427- 6465 Jul, Severe episode of recurrent major depressive disorder, without psychotic features F33.[address] 11691- 2528 Jul, [facility] [id number] [place] [address] 49266- 9429 Jun, [facility] [id number] [place] [address] 62798- 4416 Jun, Diabetes E11.9 ; Diabetic neuropathy E11.40 ; Degenerative disc disease, lumbar M51.36 ; HTN (hypertension) I10 ; Gastritis K29.70 ; Hyperlipidemia E78.5 ; Unspecified episodic mood disorder F39 ; Depression F32.9 and CAD (coronary artery disease) I25.10 [facility] [id number] [place] [address] 95309- 9674 Jun, [address] 81008- 6708 Jun, [facility] [id number] [place] [address] 75546- 3661 Jun, Diabetes E11.9 ; Diabetic neuropathy E11.40 ; Degenerative disc disease, lumbar M51.36 ; HTN (hypertension) I10 ; Gastritis K29.70 ; Chronic pain G89.29 ; Insomnia G47.00 and Unspecified episodic mood disorder F39 [facility] [id number] [place] [address] 74233- 2970 May, Diabetic neuropathy E11.40 ; Degenerative disc disease, lumbar M51.36 ; HTN (hypertension) I10 ; Gastritis K29.70 ; Hyperlipidemia E78.5 ; Chronic pain G89.29 ; Insomnia G47.00 ; Unspecified episodic mood disorder F39 ; Diabetes E11.9 ; CAD (coronary artery disease) I25.10 and H/O Gram positive sepsis Z86.19 [facility] [address] 52385- 6084 May, [facility] [address] 29956- 0737 May, [facility] [address] 89927- 2285 May, [facility] [address] 27877- 0606 May, [facility] [id number] [place] [address] 87350- 7321 May, Diabetes E11.9 ; Chronic pain G89.29 ; UTI (urinary tract infection) N39.0 ; Hyperlipidemia E78.5 and Diabetic neuropathy E11.40 [facility] [id number] [place] [address] 76701- 8673 May, Insomnia, unspecified G47.00 and Chronic pain G89.29 [facility] [id number] [place] [address] 22238- 1429 May, [facility] [address] 51821- 0655 May, [facility] [id number] [place] [address] 68028- 4979 May, [facility] [address] 79359- 3489 Apr, Insomnia, unspecified G47.00 ; Chronic pain G89.29 and Unspecified episodic mood disorder F39 [facility] [id number] [place] [address] 94757- 7019 Apr, Unspecified episodic mood disorder F39 [facility] [id number] [place] [address] 27178- 7074 Apr, Major depression F32.9 [facility] [address] 49988- 9203 Apr, [facility] [id number] [place] [address] 47805- 6842 Apr, Diabetes E11.9 ; Diabetic neuropathy E11.40 ; Degenerative disc disease, lumbar M51.36 ; HTN (hypertension) I10 ; Gastritis K29.70 ; Hyperlipidemia E78.5 ; Chronic pain G89.29 and Insomnia G47.00 [facility] [address] 48155- 1695 Mar, [facility] [id number] [place] [address] 75888- 4923 Mar, [facility] [id number] [place] [address] 54494- 4446 Mar, [facility] [id number] [place] [address] 75566- 9535 Mar, Diabetes mellitus 250.00 ; Diabetic neuropathy 250.60 ; CAD (coronary artery disease) 414.00 ; Degenerative disc disease, lumbar 722.52 ; Gastritis 535.50 and Insomnia 780.52 [facility] [id number] [place] [address] 80838- 6237 Mar, Diabetes mellitus 250.00 ; Degenerative disc disease, lumbar 722.52 ; Essential hypertension 401.9 ; Gastritis 535.50 and Chronic pain 338.29 [facility] [id number] [place] [address] 56827- 4546 Feb, [facility] [address] [address]- 6629 Feb, [facility] [id number] [place] [address] 63821- 2966 Jan, [facility] [id number] [place] [address] 85517- 4299 Jan, Diabetes mellitus 250.00 ; Diabetic neuropathy 250.60 ; Degenerative disc disease, lumbar 722.52 ; CAD (coronary artery disease) 414.00 ; Essential hypertension 401.9 ; Gastritis 535.50 ; Hyperlipidemia 272.4 and Distal end of ulna fracture, closed 813.43 [facility] [id number] [place] [address] 62038- 0761 Dec, Wrist pain 719.43 and Diabetes mellitus 250.00 [facility] [id number] [place] [address] 39510- 2015 May, [facility] [id number] [place] [address] 39462- 7087 Dec, [facility] [id number] [place] [address] 19455- 1425 November, [facility] [id number] [place] [address] 99973- 7247 16 Oct, 2009 [facility] [id number] [place] [address] 68261- 8226 Sep, [facility] [id number] [place] [address] 27251- 9735 Sep, [facility] [id number] [place] [address] 08741- 1777 Jun, [facility] [id number] [place] [address] 11449275- 0526 Jun, [facility] [id number] [place] [address] 85636- 0043 14 Jun, 2009 [facility] [id number] [place] [address] 47008- 4166 Jun, [facility] [id number] 7679 Jun, [facility] [address], [place] [address]- 7071 Jun, [facility] [address] [address]- 7668 Jun, [facility] [address], [place] [address]- 4172 May, [facility] [address], [place] [address]- 0020 May, [facility] [address], [place] [address]- 0018 May, [facility] [address] [address]- 5737 May, [facility] [address] [address]- 5870 Apr, [facility] [address] 6220 Apr, [facility] [address], [place] [address]- 4039 Apr, [facility] [id number], [place] [address]- 4497 Mar, [facility] [address] 0856 Dec, IMMUNIZATIONS No Known Immunizations SOCIAL HISTORY Never Assessed REASON FOR VISIT Requests return call PLAN OF CARE VITAL SIGNS MEDICATIONS Unknown Medications RESULTS No Results PROCEDURES No Known procedures INSTRUCTIONS MEDICATIONS ADMINISTERED No Known Medications MEDICAL (GENERAL) HISTORY Type Description Date Medical History Type 2 Diabetes Medical History diabetic neuropathy Medical History Stroke Medical History asthma Medical History degenerative disk disease Medical History hypertension Medical History hyperlipidemia Surgical History carpel tunnel Surgical History hernia Surgical History x 4 Surgical History titanium plates in both thighs Surgical History ear surgery on left ear to fix hole in ear drum Hospitalization History surgeries Hospitalization History stroke 12/2012 Hospitalization History blood transfusion 2010 Hospitalization History Stroke 05/23/2015 Hospitalization History UTI/blood infection 06/03/2015 Hospitalization History UTI/low wbc count/dehydration 07/03/2015 Hospitalization History Blood clot in lung 01/2016 Hospitalization History Sepsis from UTI, uncontrolled IDDM, nv. HTN 08/18/16
[2018-01-18] MEDS ORDERED: ONDANSETRON 4 MG/2 ML (SDV) Z0FRAN IVP ONE ×2 (11:00→17:00)
--- OUTSIDE RECORDS SUMMARY | 2018-01-18 11:00 | XMS REPORT ---
Author Author PATRICK TINAJERO [facility] Address [address] [place] [address] Care Team Providers Care [employer] [facility] [employer] Assistant Name Role Phone PATRICK TINAJERO Unavailable PROBLEMS Type Condition ICD9-CM Code [id number] Code Onset Dates Condition Status SNOMED Code Problem Degenerative disc disease, lumbar M51.36 Active 70718410 Problem HTN (hypertension) I10 Active 65180249 Problem Insomnia G47.00 Active 326961739 Problem Leg cramps R25.2 Active 876410083 Problem Obsessive-compulsive disorder, unspecified type F42.9 Active 756690419 Problem Post-traumatic stress disorder F43.10 Active 74702599 Problem CAD (coronary artery disease) I25.10 Active 57845498 Problem Major depressive disorder, recurrent episode, moderate F33.1 Active 716416494 Problem Type 2 diabetes mellitus with hyperglycemia E11.65 Active 714565444949853 Problem Diabetic neuropathy E11.40 Active 413126902 Problem Hyperlipidemia E78.5 Active 49952901 Problem Chronic pain G89.29 Active 14124426 Problem Diabetes E11.9 Active 03205580 Problem Gastritis K29.70 Active 7724472 ALLERGIES No Information SOCIAL HISTORY Never Assessed PLAN OF CARE VITAL SIGNS MEDICATIONS Medication Instructions Dosage Frequency Start Date End Date Duration Status Plavix 75 MG Orally Once a day 1 tablet 24h 28 days Active Hydrocodone-Acetaminophen 10-325 MG Orally 3 times a day 1 tablet as needed 8h Sep, 28 days Active RESULTS No Results PROCEDURES No Known procedures IMMUNIZATIONS No Known Immunizations MEDICAL (GENERAL) HISTORY Type Description Date Medical [...]
--- OUTSIDE RECORDS SUMMARY | 2018-01-18 11:00 | XMS REPORT ---
Author Author PATRICK Peralta Organization [facility] Address [address] [place] [address] Care Team Providers Care Guest Services Attendant Name Role Phone PATRICK Peralta Unavailable PROBLEMS Type Condition ICD9-CM Code LGG32-XI Code Onset Dates Condition Status SNOMED Code Problem Type 2 diabetes mellitus with hyperglycemia E11.65 Active [id number] Problem Obsessive-compulsive disorder, unspecified type F42.9 Active 598602018 Problem Major depressive disorder, recurrent episode, moderate F33.1 Active 688466680 Problem Falls frequently R29.6 Active 353897085 Problem Diabetes E11.9 Active 212327869 Problem Type 2 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 E11.49 Active 70941782 Problem History of pulmonary embolism Z86.711 Active 821797730 Problem 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 661420399 Problem 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.29 Active 25727377 Problem Hyperlipidemia E78.5 Active 88375720 Problem Insomnia G47.00 Active 088022290 Problem HTN (hypertension) I10 Active 09957519 Problem Chronic pain G89.29 Active 54123994 Problem CAD (coronary artery disease) I25.10 Active 47183173 Problem Degenerative disc disease, lumbar M51.36 Active 11547526 Problem Post-traumatic stress disorder F43.10 Active 18963318 ALLERGIES No Information ENCOUNTERS Encounter Location Date Diagnosis [facility] [address] [facility] [id number] [address] November, [facility] [id number] [place] [address] 48094- 7708 Oct, Chronic pain G89.29 [facility] [id number] [address] 5[address] Sep, Diabetes E11.9 [facility] [address] [address] 8[address] Sep, Chronic pain G89.29 [facility] [address] [address] 2[address] Sep, [facility] [address] [address] 5405 Sep, Falls frequently R29.6 ; long-term 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.4 and Type 2 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 E11.49 [facility] [address] [address] 4[address] Sep, [facility] [id number] [place] [address] 26063- 0544 Sep, Diabetes E11.9 [facility] [address] [address] 7206 Aug, [facility] [id number] [place] [address] 59695- 7573 Aug, Chronic pain G89.29 [facility] [address] [place] [address] 04805- 6433 Aug, [facility] [address] [address] 3580 Aug, Chronic pain G89.29 [facility] [address], [place] [address] 4870 Jul, [facility] [address] [address] 7576 Jul, Diabetes E11.9 and 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.29 [facility] [address] [address] 8299 Jul, 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.29 [facility] [address] [address] 0087 Jul, [facility] [address] [address] 6210 Jul, Chronic pain G89.29 [facility] [id number] [place] [address] 77705- 0644 Jun, Diabetes E11.9 [facility] [id number] [place] [address] 14541- 4667 Jun, Chronic pain G89.29 [facility] [id number] [place] [address] 43077- 0066 Jun, Diabetes E11.9 ; Atypical chest pain R07.89 ; 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29 [facility] [address] [id number] [address] 3380 Apr, [facility] [id number] [place] [address] 23310- 2143 29 Mar, 2017 Chronic pain G89.29 [facility] [id number] [place] [address] 64391- 6196 18 Mar, 2017 Diabetes E11.9 [facility] [address] [place] [address] 69736- 6754 07 Mar, 2017 [facility] [address] [place] [address] 95772- 4332 Mar, Degenerative disc disease, lumbar M51.36 [place] [id number] [place] [address] 09648- 8205 28 Feb, 2017 Diabetes E11.9 [facility] [id number] [place] [address] 23215- 6974 23 Feb, 2017 Diabetes E11.9 [place] [id number] [place] [address] 95537- 5954 16 Feb, 2017 Diabetes E11.9 ; HTN (hypertension) I10 ; Diabetic neuropathy E11.40 and Leg cramps R25.2 [place] [id number] [place] [address] 58241- 8081 15 Feb, 2017 Sprain of calcaneofibular ligament of right ankle, subsequent encounter S93.411D ; Major depressive disorder, recurrent episode, moderate F33.1 ; Diabetes E11.9 ; Hyperlipidemia E78.5 ; Post-traumatic stress disorder F43.10 and Other irritable bowel syndrome K58.8 [place] [id number] [place] [address] 01507- 6832 14 Feb, 2017 Major depressive disorder, recurrent episode, moderate F33.1 ; Post-traumatic stress disorder F43.10 and Obsessive-compulsive disorder , unspecified type F42.9 [place] [id number] [place] [address] 70854- 8870 Feb, [place] [id number] [place] [address] 80868- 7236 Feb, Post-traumatic stress disorder F43.10 and Major depressive disorder, recurrent, moderate F33.1 [place] [id number] [place] [address] 69989- 5866 Feb, Diabetes E11.9 [place] [id number] [place] [address] 14648- 8629 Feb, Degenerative disc disease, lumbar M51.36 [place] [facility] [id number] [place] [address] 59823- 0107 Feb, Post-traumatic stress disorder F43.10 and Major depressive disorder, recurrent, moderate F33.1 [facility] [address] [facility] [id number] [address] 1616 Feb, [facility] [address] [facility] [id number] [place] [address] 90722 2546 Feb, Diabetes E11.9 [facility] [address] [id number] [address] 2546 Jan, Diabetes E11.9 [facility] [id number] [place] [address] 37138- 7856 Jan, Post-traumatic stress disorder F43.10 and Major depressive disorder, recurrent, moderate F33.1 [facility] [address] [facility] [id number] [place] [address] 35598- 5436 Jan, Diabetes E11.9 [facility] [address], [place] [address]- 5446 Jan, Diabetes E11.9 [facility] [id number], [place] [address]- 2896 Jan, [facility] [id number] [place] [address] 78527- 4685 Jan, [facility] [address] [place] [address] 07224- 2652 Jan, Post-traumatic stress disorder F43.10 and Major depressive disorder, recurrent, moderate F33.1 [facility] [address], [place] [address]- 9678 Jan, [facility] [id number] [address]- 2546 Jan, Major depressive disorder, recurrent episode, moderate F33.1 ; Post-traumatic stress disorder F43.10 and Obsessive-compulsive disorder , unspecified type F42.9 [facility] [id number] [address] 9600 Jan, [facility] [id number] [place] [address] 63201- 3094 13 Jan, 2017 Diabetes E11.9 [facility] [id number] [place] [address] 12796- 8463 13 Jan, 2017 [facility] [id number] [place] [address] 78178- 8040 13 Jan, 2017 Sprain of calcaneofibular ligament of right ankle, subsequent encounter S93.411D [facility] [id number] [place] [address] 89781- 5764 Jan, Post-traumatic stress disorder F43.10 and Major depressive disorder, recurrent, moderate F33.1 [place] [id number] [place] [address] 61949- 2931 07 Jan, 2017 Diabetes E11.9 [facility] [id number] [place] [address] 36890- 3064 16 Dec, 2016 Major depressive disorder, recurrent episode, moderate F33.1 ; Post-traumatic stress disorder F43.10 and Obsessive-compulsive disorder , unspecified type F42.9 [facility] [address] [place] [address] 18166- 2815 15 Dec, 2016 [place] [place] [id number] [place] [address] 29226- 3732 14 Dec, 2016 Sprain of calcaneofibular ligament of right ankle, subsequent encounter S93.411D [place] [id number] [place] [address] 99340- 5373 13 Dec, 2016 Post-traumatic stress disorder F43.10 and Major depressive disorder, recurrent, moderate F33.1 [facility] [address] [place] [address] 28671- 0974 13 Dec, 2016 Sprain of calcaneofibular ligament of right ankle, subsequent encounter S93.411D [place] [id number] [place] [address] 69023- 4927 12 Dec, 2016 Hyperlipidemia E78.5 [place] [id number] [place] [address] 62351- 2327 Dec, [place] [facility] [id number] [place] [address] 26066- 8551 Dec, Diabetes E11.9 ; Diabetic neuropathy E11.40 ; Degenerative disc disease, lumbar M51.36 ; Hyperlipidemia E78.5 ; Insomnia G47.00 ; CAD ( coronary artery disease) I25.10 ; Major depressive disorder, recurrent, moderate F33.1 ; Post-traumatic stress disorder F43.10 and Other irritable bowel syndrome K58.8 [facility] [id number] [place] [address] 92454- 9738 November, Diabetic neuropathy E11.40 and Hyperlipidemia E78.5 [place] [address] 60646- 5439 November, Degenerative disc disease, lumbar M51.36 [place] [address] 12309- 8174 Oct, [place] [address] 43949- 5704 Oct, Degenerative disc disease, lumbar M51.36 [place] [id number] [place] [address] 10770- 4523 Sep, Degenerative disc disease, lumbar M51.36 and HTN ( hypertension) I10 [id number] [place] [address] 87463- 6106 Sep, Diabetic neuropathy E11.40 ; HTN (hypertension) I10 ; Degenerative disc disease, lumbar M51.36 ; Hyperlipidemia E78.5 ; Insomnia G47.00 ; CAD (coronary artery disease) I25.10 and Diabetes E11.9 [place] [id number] [place] [address] 32530- 0664 Aug, [place] [id number] [place] [address] 10665- 3192 Aug, Type 2 diabetes mellitus with hyperglycemia E11.65 [place] [address] [place] [address]- 4648 Aug, [facility] [address], [place] [address]- 2947 Jul, [facility] [id number] [place] [address] 83707- 1168 Jul, [facility] [id number] [place] [address] 854364- 8472 Jun, [facility] [id number] [place] [address] 30336- 1652 Jun, [facility] [id number] [place] [address] 057155- 1813 Jun, [facility] [id number] [place] [address] 172326- 5400 Jun, [facility] [id number] [place] [address] 714385- 6833 May, Major depressive disorder, recurrent episode, moderate F33.1 and Post-traumatic stress disorder F43.10 [facility] [address] [place] [address] 02811- 8143 May, Major depressive disorder, recurrent episode, moderate F33.1 and Post-traumatic stress disorder F43.10 [facility] [id number] [place] [address] 20921- 8388 May, Diabetes E11.9 ; Diabetic neuropathy E11.40 ; HTN ( hypertension) I10 ; Gastritis K29.70 ; Hyperlipidemia E78.5 ; Insomnia G47.00 and Major depressive disorder, recurrent, moderate F33.1 [facility] [id number] [place] [address] 26429- 2257 May, Major depressive disorder, recurrent episode, moderate F33.1 [facility] [address] [address]- 3058 Apr, [facility] [id number] [place] [address] 66133- 2002 Apr, Major depressive disorder, recurrent episode, moderate F33.1 and Post-traumatic stress disorder F43.10 [place] [id number] [place] [address] 62061- 5592 Apr, Diabetes E11.9 ; Diabetic neuropathy E11.40 ; Degenerative disc disease, lumbar M51.36 ; HTN (hypertension) I10 ; Hyperlipidemia E78.5 ; Chronic pain G89.29 ; CAD (coronary artery disease) I25.10 and Major depressive disorder, recurrent, moderate F33.1 [place] [id number] [place] [address] 39960- 0809 Apr, Major depressive disorder, recurrent episode, moderate F33.1 and Post-traumatic stress disorder F43.10 [place] [id number] [place] [address] 70688- 4541 Apr, Major depressive disorder, recurrent episode, moderate F33.1 and Post-traumatic stress disorder F43.10 [place] [id number] [place] [address] 52627- 6028 Apr, Major depressive disorder, recurrent episode, moderate F33.1 and Unspecified episodic mood disorder F39 [place] [id number] [place] [address] 63014- 4693 Apr, Chronic pain G89.29 ; Diabetic neuropathy E11.40 ; HTN ( hypertension) I10 ; Insomnia G47.00 ; CAD (coronary artery disease) I25.10 ; Hyperlipidemia E78.5 ; Degenerative disc disease, lumbar M51.36 ; Diabetes E11.9 and Gastritis K29.70 [place] [id number] [place] [address] 18854- 5674 Sep, [address] 35751- 7854 Aug, [place] [id number] [place] [address] 16442- 9823 Jul, Major depressive disorder, recurrent episode, moderate F33.[address] [place] [address]- 4953 Jul, Unspecified episodic mood disorder F39 [facility] [id number] [place] [address] 26214- 0430 Jul, [facility] [id number] [place] [address] 12043- 0544 Jul, [facility] [address] 58810- 6390 Jul, [facility] [address] 62501- 4139 Jul, Type 2 diabetes mellitus with hyperglycemia E11.65 ; Diabetic neuropathy E11.40 ; Degenerative disc disease, lumbar M51.36 ; HTN ( hypertension) I10 ; Gastritis K29.70 ; Hyperlipidemia E78.5 and CAD (coronary artery disease) I25.10 [place] [address] 16803- 6003 Jul, Severe episode of recurrent major depressive disorder, without psychotic features F33.2 [place] [facility] [address] 80139- 2671 Jul, [facility] [address] 10221- 0808 Jun, [place] [id number] [place] [address] 22701- 1728 Jun, Diabetes E11.9 ; Diabetic neuropathy E11.40 ; Degenerative disc disease, lumbar M51.36 ; HTN (hypertension) I10 ; Gastritis K29.70 ; Hyperlipidemia E78.5 ; Unspecified episodic mood disorder F39 ; Depression F32.9 and CAD (coronary artery disease) I25.10 [place] [address] 01256- 4484 Jun, [place] [id number] [place] [address] 26887- 8955 Jun, [facility] [address] 25536- 1712 Jun, Diabetes E11.9 ; Diabetic neuropathy E11.40 ; Degenerative disc disease, lumbar M51.36 ; HTN (hypertension) I10 ; Gastritis K29.70 ; Chronic pain G89.29 ; Insomnia G47.00 and Unspecified episodic mood disorder F39 [facility] [id number] [place] [address] 25687- 2760 May, Diabetic neuropathy E11.40 ; Degenerative disc disease, lumbar M51.36 ; HTN (hypertension) I10 ; Gastritis K29.70 ; Hyperlipidemia E78.5 ; Chronic pain G89.29 ; Insomnia G47.00 ; Unspecified episodic mood disorder F39 ; Diabetes E11.9 ; CAD (coronary artery disease) I25.10 and H/O Gram positive sepsis Z86.19 [place] [address] 85067- 3689 May, [place] [facility] [address] 44210- 8048 May, [place] [address] 39802- 9776 May, [place] [facility] [address] 89659- 0549 May, [place] [id number] [place] [address] 35090- 8380 May, UTI (urinary tract infection) N39.0 ; Diabetes E11.9 ; Diabetic neuropathy E11.40 ; Hyperlipidemia E78.5 and Chronic pain G89.29 [place] [address] 25993- 8938 May, Insomnia, unspecified G47.00 and Chronic pain G89.29 [place] [address] 41654- 2416 May, [place] [id number] [place] [address] 09749- 4054 May, [facility] [address] 06570- 2263 May, [place] [id number] [place] [address] 52399- 3493 Apr, Insomnia, unspecified G47.00 ; Chronic pain G89.29 and Unspecified episodic mood disorder F39 [place] [id number] [place] [address] 91830- 8037 Apr, Unspecified episodic mood disorder F39 [place] [address] 81832- 0971 Apr, Major depression F32.9 [place] [address] 91997- 7835 Apr, [place] [id number] [place] [address] 14267- 8491 Apr, Diabetes E11.9 ; Diabetic neuropathy E11.40 ; Degenerative disc disease, lumbar M51.36 ; HTN (hypertension) I10 ; Gastritis K29.70 ; Hyperlipidemia E78.5 ; Chronic pain G89.29 and Insomnia G47.00 [place] [id number] [place] [address] 31834- 5773 Mar, [place] [id number] [place] [address] 50435- 4646 Mar, [place] [id number] [place] [address] 36714- 3773 Mar, [place] [id number] [place] [address] 07720- 0306 Mar, Diabetes mellitus 250.00 ; Diabetic neuropathy 250.60 ; CAD (coronary artery disease) 414.00 ; Degenerative disc disease, lumbar 722.52 ; Gastritis 535.50 and Insomnia 780.52 [place] [id number] [place] [address] 33227- 0557 Mar, Diabetes mellitus 250.00 ; Degenerative disc disease, lumbar 722.52 ; Essential hypertension 401.9 ; Gastritis 535.50 and Chronic pain 338.29 [place] [address] [address]- 3520 Feb, [facility] [id number] [place] [address] 556863- 0321 Feb, [facility] [id number] [place] [address] 12578- 9377 Jan, [facility] [id number] [place] [address] 566855- 7166 Jan, Diabetes mellitus 250.00 ; Diabetic neuropathy 250.60 ; Degenerative disc disease, lumbar 722.52 ; CAD (coronary artery disease) 414.00 ; Essential hypertension 401.9 ; Gastritis 535.50 ; Hyperlipidemia 272.4 and Distal end of ulna fracture, closed 813.43 [facility] [id number] [place] [address] 78131- 2412 Dec, Wrist pain 719.43 and Diabetes mellitus 250.00 [facility] [id number] [place] [address] 51508- 5121 May, [facility] [id number] [place] [address] 58872- 7563 Dec, [facility] [id number] [place] [address] 93640- 8373 November, [facility] [address] [address]- 6769 Oct, [facility] [address] [address]- 0637 Sep, [facility] [address] [address]- 6514 Sep, [facility] [id number] [place] [address] 64733- 7620 Jun, [facility] [address] [address]- 1615 Jun, [facility] [id number] [address]- 5674 14 Jun, 2009 [facility] [address] [address]- 7953 Jun, [facility] [address] [address]- 2868 Jun, [facility] [address] [address]- 5866 Jun, [facility] [address] [address]- 5747 Jun, [facility] [id number] [place] [address] 22737- 1442 May, [facility] [address] [address]- 9880 May, [facility] [id number] [place] [address] 37449- 2481 May, [facility] [id number] [address] May, [facility] [id number] [place] [address] Apr, [facility] [id number] [address] Apr, [facility] [id number] [place] [address] Apr, [facility] [id number] [place] [address] Mar, [facility] [id number] [address] Dec, IMMUNIZATIONS No Known Immunizations SOCIAL HISTORY Never Assessed REASON FOR VISIT paperwork PLAN OF CARE VITAL SIGNS MEDICATIONS Unknown [...]
[2018-01-18] MEDS ORDERED: inSUlin (REGULAR) HUMAN 1 UNIT/0.01 ML (CHARGE PER UNIT) IV STA (11:01)
--- OUTSIDE RECORDS SUMMARY | 2018-01-18 11:01 | XMS REPORT ---
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 Name Role Phone JALEN PEREZ Unavailable PROBLEMS Type Condition ICD9-CM Code AHH63-LV Code Onset Dates Condition Status SNOMED Code Problem Post-traumatic stress disorder F43.10 Active 64188213 Problem Obsessive-compulsive disorder, unspecified type F42.9 Active 644722292 Problem Type 2 diabetes mellitus with hyperglycemia E11.65 Active 260244813063148 Problem Falls frequently R29.6 Active 382834875 Problem History of pulmonary embolism Z86.711 Active 317678661 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 Active 804843769 Problem Major depressive disorder, recurrent episode, moderate F33.1 Active 080818155 Problem 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.29 Active 60931842 Problem Type 2 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 E11.49 Active 09918326 Problem Chronic pain G89.29 Active 55501358 Problem Degenerative disc disease, lumbar M51.36 Active 86413977 Problem Insomnia G47.00 Active 562298504 Problem HTN (hypertension) I10 Active 85742343 Problem Hyperlipidemia E78.5 Active 21389589 Problem CAD (coronary artery disease) I25.10 Active 58671076 ALLERGIES No Information ENCOUNTERS Encounter Location Date Diagnosis [facility] [address] [facility] [id number] [address] Jan, [facility] [address], [place] [address] Jan, [facility] [address], [place] [address] Dec, CAD (coronary artery disease) I25.10 and Atypical chest pain R07.89 [facility] [address] [id number] [address] Dec, [facility] [id number] [place] [address] 52128- 1298 Dec, Diabetes E11.9 ; Type 2 diabetes mellitus with hyperglycemia E11.65 and Intractable vomiting with nausea, unspecified vomiting type R11.2 [facility] [id number] [place] [address] 80276- 4366 Dec, Chronic pain G89.29 [facility] [id number] [place] [address] 21390- 3834 November, [facility] [address] 23519- 2070 November, Diabetes E11.9 ; CAD (coronary artery disease) I25.10 ; Atypical chest pain R07.89 ; Type 2 diabetes mellitus with hyperglycemia E11.65 ; 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.29 ; half-way 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.4 and Chronic pain G89.29 [facility] [id number] [place] [address] 71273- 1947 Oct, [facility] [id number] [place] [address] 50553- 1282 Oct, Chronic pain G89.29 [facility] [id number] [place] [address] 94143- 6019 Sep, Diabetes E11.9 [facility] [id number] [place] [address] 32651- 4555 Sep, Chronic pain G89.29 [facility] [id number] [place] [address] 45857- 1468 Sep, [facility] [id number] [place] [address] 66435- 7726 Sep, Falls frequently R29.6 ; half-way 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.4 and Type 2 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 E11.49 [facility] [id number] [place] [address] 42414- 3282 Sep, [facility] [address], [place] [address] 9806 Sep, Diabetes E11.9 [facility] [address], [place] [address] 9430 Aug, [facility] [id number] [place] [address] 42622- 0253 Aug, Chronic pain G89.29 [facility] [id number] [place] [address] 02857- 8413 Aug, [facility] [id number] [place] [address] 53493- 8386 Aug, Chronic pain G89.29 [facility] [address], [place] [address] 4414 Jul, [facility] [id number] [place] [address] 89402- 5903 Jul, Diabetes E11.9 and 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.29 [facility] [id number] [place] [address] 29930- 9681 Jul, 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.29 [facility] [address], [place] [address]- 2806 Jul, [facility] [address], [place] [address]- 5750 Jul, Chronic pain G89.29 [facility] [id number], [place] [address] 8032 Jun, Diabetes E11.9 [facility] [id number], [place] [address] 0624 Jun, Chronic pain G89.29 [facility] [id number], [place] [address] 9067 13 Dec, 2017 Diabetes E11.9 ; Atypical chest pain R07.89 ; half-way 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.4 ; 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.29 ; Type 2 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 E11.49 ; History of pulmonary embolism Z86.711 and History of CVA (cerebrovascular accident) Z86.73 [facility] [id number] [place] [address] 79277- 1639 27 May, 2017 [facility] [id number] [place] [address] 55061- 8714 May, Chronic pain G89.29 [facility] [id number] [place] [address] 79534- 9796 Apr, Chronic pain G89.29 [facility] [id number] [place] [address] 93925- 4700 Apr, [facility] [id number] [place] [address] 38567- 9670 Mar, Chronic pain G89.29 [facility] [id number] [place] [address] 30089- 8631 18 Mar, 2017 Diabetes E11.9 [facility] [id number] [place] [address] 44054- 6319 07 Mar, 2017 [facility] [id number] [place] [address] 71777- 8333 Mar, Degenerative disc disease, lumbar M51.36 [facility] [id number] [place] [address] 83669- 1766 Feb, Diabetes E11.9 [facility] [id number] [place] [address] 06743- 6938 Feb, Diabetes E11.9 [facility] [id number] [place] [address] 14898- 3879 16 Feb, 2017 Diabetes E11.9 ; HTN (hypertension) I10 ; Diabetic neuropathy E11.40 and Leg cramps R25.2 [facility] [address] [place] [address]- 3368 15 Feb, 2017 Sprain of calcaneofibular ligament of right ankle, subsequent encounter S93.411D ; Major depressive disorder, recurrent episode, moderate F33.1 ; Diabetes E11.9 ; Hyperlipidemia E78.5 ; Post-traumatic stress disorder F43.10 and Other irritable bowel syndrome K58.8 [facility] [id number] [place] [address] 38342- 7429 14 Feb, 2017 Major depressive disorder, recurrent episode, moderate F33.1 ; Post-traumatic stress disorder F43.10 and Obsessive-compulsive disorder , unspecified type F42.9 [facility] [address] 90221- 1438 Feb, [facility] [address] 42789- 8614 Feb, Post-traumatic stress disorder F43.10 and Major depressive disorder, recurrent, moderate F33.1 [facility] [id number] [place] [address] 49814- 8621 Feb, Diabetes E11.9 [facility] [address] 77289- 9108 Feb, Degenerative disc disease, lumbar M51.36 [facility] [id number] [place] [address] 87170- 6359 Feb, Post-traumatic stress disorder F43.10 and Major depressive disorder, recurrent, moderate F33.1 [facility] [id number] [place] [address] 57134- 0658 Feb, [facility] [id number] [place] [address] 50624- 6198 Feb, Diabetes E11.9 [facility] [id number] [place] [address] 83025- 7633 Jan, Diabetes E11.9 [facility] [id number] [place] [address] 43278- 0470 Jan, Post-traumatic stress disorder F43.10 and Major depressive disorder, recurrent, moderate F33.1 [facility] [address] [facility] [id number], [place] [address] 8926 Jan, Diabetes E11.9 [facility] [address] [facility] [id number], [place] [address] 2546 Jan, Diabetes E11.9 [facility] [id number], [place] [address] 2546 Jan, [facility] [id number], [place] [address]- 2056 Jan, [facility] [id number] [place] [address] 25352- 3536 Jan, Post-traumatic stress disorder F43.10 and Major depressive disorder, recurrent, moderate F33.1 [facility] [address], [place] [address]- 4456 Jan, [facility] [id number], [place] [address]- 1399 Jan, Major depressive disorder, recurrent episode, moderate F33.1 ; Post-traumatic stress disorder F43.10 and Obsessive-compulsive disorder , unspecified type F42.9 [facility] [address], [place] [address]- 0896 Jan, [facility] [address], [place] [address]- 5601 Jan, Diabetes E11.9 [facility] [id number], [place] [address] 2546 Jan, [facility] [id number] [place] [address] 60744- 0909 Jan, Sprain of calcaneofibular ligament of right ankle, subsequent encounter S93.411D [facility] [id number], [place] [address]- 0856 Jan, Post-traumatic stress disorder F43.10 and Major depressive disorder, recurrent, moderate F33.1 [facility] [address], [place] [address]- 3879 07 Jan, 2017 Diabetes E11.9 [facility] [id number] [place] [address] 92628- 4031 16 Dec, 2016 Major depressive disorder, recurrent episode, moderate F33.1 ; Post-traumatic stress disorder F43.10 and Obsessive-compulsive disorder , unspecified type F42.9 [facility] [id number] [place] [address] 00112- 3898 15 Dec, 2016 [facility] [id number] [place] [address] 53948- 8999 14 Dec, 2016 Sprain of calcaneofibular ligament of right ankle, subsequent encounter S93.411D [facility] [id number] [place] [address] 99656- 9163 13 Dec, 2016 Post-traumatic stress disorder F43.10 and Major depressive disorder, recurrent, moderate F33.1 [facility] [id number] [place] [address] 27954- 6212 13 Dec, 2016 Sprain of calcaneofibular ligament of right ankle, subsequent encounter S93.411D [facility] [id number] [place] [address] 50062- 9586 12 Dec, 2016 Hyperlipidemia E78.5 [facility] [id number] [place] [address] 80588- 8860 08 Dec, 2016 [facility] [id number] [place] [address] 94548- 7407 07 Dec, 2016 Diabetes E11.9 ; Diabetic neuropathy E11.40 ; Degenerative disc disease, lumbar M51.36 ; Hyperlipidemia E78.5 ; Insomnia G47.00 ; CAD ( coronary artery disease) I25.10 ; Major depressive disorder, recurrent, moderate F33.1 ; Post-traumatic stress disorder F43.10 and Other irritable bowel syndrome K58.8 [facility] [id number] [place] [address] 58112- 1127 November, Diabetic neuropathy E11.40 and Hyperlipidemia E78.5 [facility] [id number] [place] [address] 14867- 1732 November, Degenerative disc disease, lumbar M51.36 [facility] [id number] [place] [address] 31853- 4803 Oct, [facility] [address] 65654- 9693 Oct, Degenerative disc disease, lumbar M51.36 [facility] [id number] [place] [address] 11147- 4581 Sep, Degenerative disc disease, lumbar M51.36 and HTN ( hypertension) I10 [facility] [id number] [place] [address] 86147- 4801 Sep, Diabetic neuropathy E11.40 ; HTN (hypertension) I10 ; Degenerative disc disease, lumbar M51.36 ; Hyperlipidemia E78.5 ; Insomnia G47.00 ; CAD (coronary artery disease) I25.10 and Diabetes E11.9 [facility] [id number] [place] [address] 11953- 0691 Aug, [facility] [id number] [place] [address] 01182- 0039 Aug, Type 2 diabetes mellitus with hyperglycemia E11.65 [facility] [id number] [place] [address] 50822- 7933 Aug, [facility] [id number] [place] [address] 61218- 1057 Jul, [facility] [id number] [place] [address] 93914- 9732 Jul, [facility] [id number] [place] [address] 77098- 2892 Jun, [facility] [id number] [place] [address] 93580- 7053 Jun, [facility] [address], [place] [address]- 0879 Jun, [facility] [id number] [place] 3883 Jun, [facility] [id number] [place] [address] 31553- 1799 May, Major depressive disorder, recurrent episode, moderate F33.1 and Post-traumatic stress disorder F43.10 [facility] [id number] [place] [address] 72848- 4688 May, Major depressive disorder, recurrent episode, moderate F33.1 and Post-traumatic stress disorder F43.10 [facility] [id number] [place] [address] 25685- 1362 May, Diabetes E11.9 ; Diabetic neuropathy E11.40 ; HTN ( hypertension) I10 ; Gastritis K29.70 ; Hyperlipidemia E78.5 ; Insomnia G47.00 and Major depressive disorder, recurrent, moderate F33.1 [facility] [id number] [place] [address] 47975- 1651 May, Major depressive disorder, recurrent episode, moderate F33.1 [facility] [id number] [place] [address] 14560- 6068 Apr, [facility] [id number] [place] [address] 21038- 4778 Apr, Major depressive disorder, recurrent episode, moderate F33.1 and Post-traumatic stress disorder F43.10 [facility] [id number] [place] [address] 29960- 8224 Apr, Diabetes E11.9 ; Diabetic neuropathy E11.40 ; Degenerative disc disease, lumbar M51.36 ; HTN (hypertension) I10 ; Hyperlipidemia E78.5 ; Chronic pain G89.29 ; CAD (coronary artery disease) I25.10 and Major depressive disorder, recurrent, moderate F33.1 [facility] [id number] [place] [address] 96284- 3085 Apr, Major depressive disorder, recurrent episode, moderate F33.1 and Post-traumatic stress disorder F43.10 [facility] [id number] [place] [address] 35359- 8875 Apr, Major depressive disorder, recurrent episode, moderate F33.1 and Post-traumatic stress disorder F43.10 [facility] [id number] [place] [address] 21854- 0986 Apr, Major depressive disorder, recurrent episode, moderate F33.1 and Unspecified episodic mood disorder F39 [facility] [id number] [place] [address] 83024- 2613 Apr, Chronic pain G89.29 ; Diabetic neuropathy E11.40 ; HTN ( hypertension) I10 ; Insomnia G47.00 ; CAD (coronary artery disease) I25.10 ; Hyperlipidemia E78.5 ; Degenerative disc disease, lumbar M51.36 ; Diabetes E11.9 and Gastritis K29.70 [facility] [id number] [place] [address] 52184- 5609 Sep, [facility] [id number] [place] [address] 14791- 4911 Aug, [facility] [id number] [place] [address] 76603- 7282 Jul, Major depressive disorder, recurrent episode, moderate F33.1 [facility] [id number] [place] [address] 74009- 4404 Jul, Unspecified episodic mood disorder F39 [facility] [id number] [place] [address] 83829- 1997 Jul, [facility] [id number] [place] [address] 49364- 1184 Jul, [facility] [id number] [place] [address] 32261- 5227 Jul, [facility] [id number] [place] [address] 33456- 3957 Jul, Type 2 diabetes mellitus with hyperglycemia E11.65 ; Diabetic neuropathy E11.40 ; Degenerative disc disease, lumbar M51.36 ; HTN ( hypertension) I10 ; Gastritis K29.70 ; Hyperlipidemia E78.5 and CAD (coronary artery disease) I25.10 [facility] [id number] [place] [address] 59650- 1887 Jul, Severe episode of recurrent major depressive disorder, without psychotic features F33.2 [facility] [id number] [place] [address] 25195- 0633 Jul, [facility] [address] 46168- 2480 Jun, [facility] [address] 36129- 2681 Jun, Diabetes E11.9 ; Diabetic neuropathy E11.40 ; Degenerative disc disease, lumbar M51.36 ; HTN (hypertension) I10 ; Gastritis K29.70 ; Hyperlipidemia E78.5 ; Unspecified episodic mood disorder F39 ; Depression F32.9 and CAD (coronary artery disease) I25.10 [facility] [id number] [place] [address] 98112- 9704 Jun, [facility] [id number] [place] [address] 29478- 6283 Jun, [facility] [id number] [place] [address] 89451- 2746 Jun, Diabetes E11.9 ; Diabetic neuropathy E11.40 ; Degenerative disc disease, lumbar M51.36 ; HTN (hypertension) I10 ; Gastritis K29.70 ; Chronic pain G89.29 ; Insomnia G47.00 and Unspecified episodic mood disorder F39 [facility] [id number] [place] [address] 60506- 7369 May, Diabetic neuropathy E11.40 ; Degenerative disc disease, lumbar M51.36 ; HTN (hypertension) I10 ; Gastritis K29.70 ; Hyperlipidemia E78.5 ; Chronic pain G89.29 ; Insomnia G47.00 ; Unspecified episodic mood disorder F39 ; Diabetes E11.9 ; CAD (coronary artery disease) I25.10 and H/O Gram positive sepsis Z86.19 [facility] [id number] [place] [address] 02245- 4472 May, [facility] [id number] [place] [address] 91166- 8238 May, [facility] [id number] [place] [address] 96856- 6331 May, [facility] [id number] [place] [address] 01731- 7048 May, [facility] [id number] [place] [address] 38450- 1867 May, Diabetes E11.9 ; Chronic pain G89.29 ; UTI (urinary tract infection) N39.0 ; Hyperlipidemia E78.5 and Diabetic neuropathy E11.40 [facility] [id number] [place] [address] 07234- 5954 May, Insomnia, unspecified G47.00 and Chronic pain G89.29 [facility] [id number] [place] [address] 23696- 8954 May, [facility] [id number] [place] [address] 86434- 7755 May, [facility] [id number] [place] [address] 23398- 5548 May, [facility] [id number] [place] [address] 26169- 0183 Apr, Insomnia, unspecified G47.00 ; Chronic pain G89.29 and Unspecified episodic mood disorder F39 [facility] [id number] [place] [address] 24908- 3853 Apr, Unspecified episodic mood disorder F39 [facility] [id number] [place] [address] 53326- 5769 Apr, Major depression F32.9 [facility] [id number] [place] [address] 07579- 8347 Apr, [facility] [address] 31675- 8642 Apr, Diabetes E11.9 ; Diabetic neuropathy E11.40 ; Degenerative disc disease, lumbar M51.36 ; HTN (hypertension) I10 ; Gastritis K29.70 ; Hyperlipidemia E78.5 ; Chronic pain G89.29 and Insomnia G47.00 [facility] [address] 13840- 7171 Mar, [facility] [address] 80239- 1176 Mar, [facility] [address] 48069- 0016 Mar, [facility] [address] 34193- 3045 Mar, Diabetes mellitus 250.00 ; Diabetic neuropathy 250.60 ; CAD (coronary artery disease) 414.00 ; Degenerative disc disease, lumbar 722.52 ; Gastritis 535.50 and Insomnia [address] 91377- 5023 Mar, Diabetes mellitus 250.00 ; Degenerative disc disease, lumbar 722.52 ; Essential hypertension 401.9 ; Gastritis 535.50 and Chronic pain 338.29 [facility] [id number] [place] [address] 99795- 6576 Feb, [facility] [id number] [place] [address] 43013- 3220 Feb, [address] 09514- 0681 Jan, [facility] [address] 18110- 7826 Jan, Diabetes mellitus 250.00 ; Diabetic neuropathy 250.60 ; Degenerative disc disease, lumbar 722.52 ; CAD (coronary artery disease) 414.00 ; Essential hypertension 401.9 ; Gastritis 535.50 ; Hyperlipidemia 272.4 and Distal end of ulna fracture, closed 813.43 [facility] [id number] [place] [address] 67057- 7663 29 Dec, 2014 Wrist pain 719.43 and Diabetes mellitus 250.00 [facility] [id number] [place] [address] 82786- 8986 May, [facility] [id number] [place] [address] 41973- 6182 Dec, [facility] [id number] [place] [address] 02716- 3043 November, [facility] [id number] [place] [address] 97595- 4632 Oct, [facility] [id number] [place] [address] 53288- 7168 Sep, [facility] [id number] [place] [address] 77969- 8660 Sep, [facility] [id number] [place] [address] 78490- 0398 Jun, [facility] [address], [place] [address]- 3042 Jun, [facility] [id number] [place] [address] 67061- 1921 14 Jun, 2009 [facility] [address], [place] [address]- 2549 Jun, [facility] [id number] [place] [address] 36970- 6647 Jun, [facility] [id number], [place] [address]- 2547 Jun, [facility] [id number] [place] [address] 621700- 4301 Jun, [facility] [id number], [place] [address]- 2546 May, [facility] [address], [place] [address] 2546 May, [facility] [address] [facility] [id number], [place] [address]- 2546 May, [facility] [id number], [place] [address] May, [facility] [id number], [place] [address] Apr, [facility] [id number], [place] [address] Apr, [facility] [id number], [place] [address] Apr, [facility] [id number], [place] [address] Mar, [facility] [address] [id number], [place] [address] Dec, IMMUNIZATIONS No Known Immunizations SOCIAL HISTORY Never Assessed [facility] VITAL SIGNS MEDICATIONS Unknown Medications RESULTS Name Result Date Reference Range [facility] 2017-08-27 PROCEDURES Procedure Date Ordered Result Body Site No Charge Aug 27, 2017 INSTRUCTIONS MEDICATIONS ADMINISTERED No Known Medications MEDICAL [...]
--- OUTSIDE RECORDS SUMMARY | 2018-01-18 11:01 | XMS REPORT ---
Author Author JALEN PEREZ [facility] Address [address] [place] [address] Care Team Providers Care Manager Group Home Name Role Phone JALEN PEREZ Unavailable PROBLEMS Type Condition ICD9-CM Code [id number] Code Onset Dates Condition Status SNOMED Code Problem Degenerative disc disease, lumbar M51.36 Active 27989981 Problem HTN (hypertension) I10 Active 22507168 Problem Insomnia G47.00 Active 041734986 Problem Leg cramps R25.2 Active 485230419 Problem Obsessive-compulsive disorder, unspecified type F42.9 Active 429743673 Problem Post-traumatic stress disorder F43.10 Active 05681735 Problem CAD (coronary artery disease) I25.10 Active 76559434 Problem Major depressive disorder, recurrent episode, moderate F33.1 Active 790068001 Problem Type 2 diabetes mellitus with hyperglycemia E11.65 Active 992599271447231 Problem Diabetic neuropathy E11.40 Active 343118141 Problem Hyperlipidemia E78.5 Active 09274989 Problem Chronic pain G89.29 Active 13653965 Problem Diabetes E11.9 Active 62804046 Problem Gastritis K29.70 Active 4565580 ALLERGIES Unknown Allergies SOCIAL HISTORY No smoking Hx information available PLAN OF CARE VITAL SIGNS MEDICATIONS Medication Instructions Dosage Frequency Start Date End Date Duration Status NovoLog Flexpen 100 UNIT/ML Subcutaneous 5 units with meals inject Active Crestor 20 mg Orally Once a day 1 tablet 24h Active Lisinopril 20 mg Orally Once a day 1 tablet 24h Apr, Active Levemir FlexTouch 100 UNIT/ML Subcutaneous 15 units at bedtime inject Active Plavix 75 MG Orally Once a day 1 tablet 24h Active Metoclopramide HCl 10 mg Orally every 6 hours 1 tab 6h Active Levofloxacin 750 MG Orally Once a day 1 tablet 24h Aug, Aug, Active Aspir-81 81 MG Orally Once a day 1 tablet 24h Active Hydrocodone-Acetaminophen 10-325 MG Orally 3 times a day 1 tablet as needed 8h 26 Jul, 2016 Active Gabapentin 300 MG Orally Three times a day 1 capsule 8h 30 Active RESULTS No Results PROCEDURES No Known procedures IMMUNIZATIONS No Known Immunizations
--- OUTSIDE RECORDS SUMMARY | 2018-01-18 11:01 | XMS REPORT ---
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 Name Role Phone HARITHA GARNER Unavailable PROBLEMS Type Condition ICD9-CM Code [id number] Code Onset Dates Condition Status SNOMED Code Problem Type 2 diabetes mellitus with hyperglycemia E11.65 Active 505569518214068 Problem Obsessive-compulsive disorder, unspecified type F42.9 Active 456047835 Problem Major depressive disorder, recurrent episode, moderate F33.1 Active 094025952 Problem Falls frequently R29.6 Active 194357228 Problem Diabetes E11.9 Active 792349500 Problem Type 2 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 E11.49 Active 81482969 Problem History of pulmonary embolism Z86.711 Active 380989775 Problem 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.4 Active 897997909 Problem 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.29 Active 09857916 Problem Hyperlipidemia E78.5 Active 59153515 Problem Insomnia G47.00 Active 192050776 Problem HTN (hypertension) I10 Active 82535809 Problem Chronic pain G89.29 Active 50061035 Problem CAD (coronary artery disease) I25.10 Active 93387546 Problem Degenerative disc disease, lumbar M51.36 Active 53142624 Problem Post-traumatic stress disorder F43.10 Active 72324221 ALLERGIES No Information ENCOUNTERS Encounter Location Date Diagnosis [facility] [address] [facility] [id number] [address] Dec, [facility] [id number] [place] [address] 88347- 6132 November, [facility] [address] [address]26 Oct, [facility] [id number] [place] [address] 92189- 3257 Oct, Chronic pain G89.29 [facility] [address] [address] 0989 Sep, Diabetes E11.9 [facility] [id number] [place] [address] 322044- 4541 Sep, Chronic pain G89.29 [facility] [id number] [place] [address] 64979- 9073 Sep, [facility] [id number] [place] [address] 01978- 4797 Sep, Falls frequently R29.6 ; snf 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.4 and Type 2 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 E11.49 [facility] [id number] [place] [address] 90718- 0647 Sep, [facility] [id number] [place] [address] 19364- 5346 Sep, Diabetes E11.9 [facility] [id number] [place] [address] 37423- 7233 Aug, [facility] [id number] [place] [address] 06548- 6449 Aug, Chronic pain G89.29 [facility] [address] [address] 0116 Aug, [facility] [id number] [place] [address] 80029- 1398 Aug, Chronic pain G89.29 [facility] [id number] [place] [address] 52685- 6617 Jul, [facility] [id number] [place] [address] 13465- 3833 Jul, Diabetes E11.9 and 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.29 [facility] [id number] [place] [address] 87194- 4258 Jul, 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.29 [facility] [address] [address] 1186 Jul, [facility] [id number] [place] [address] 59452- 5446 Jul, Chronic pain G89.29 [facility] [id number] [place] [address] 09838- 5813 Jun, Diabetes E11.9 [facility] [id number] [place] [address] 33395- 8205 Jun, Chronic pain G89.29 [facility] [id number] [place] [address] 22599- 7324 Jun, Diabetes E11.9 ; Atypical chest pain R07.89 ; snf 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.4 ; 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.29 ; Type 2 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 E11.49 ; History of pulmonary embolism Z86.711 and History of CVA (cerebrovascular accident) Z86.73 [facility] [id number] [place] [address] 53375- 3617 May, [facility] [id number] [place] [address] 31532- 7938 May, Chronic pain G89.29 [facility] [address] [address]- 5532 Apr, Chronic pain G89.29 [facility] [address] [address]- 8203 Apr, [facility] [id number] [place] [address] 53752- 8878 Mar, Chronic pain G89.29 [facility] [id number] [place] [address] 08031- 2937 18 Mar, 2017 Diabetes E11.9 [facility] [id number] [place] [address] 25729- 8418 07 Mar, 2017 [place] [id number] [place] [address] 49933- 4011 Mar, Degenerative disc disease, lumbar M51.36 [facility] [id number] [place] [address] 48914- 5160 28 Feb, 2017 Diabetes E11.9 [facility] [place] [id number] [place] [address] 58441- 4673 23 Feb, 2017 Diabetes E11.9 [place] [id number] [place] [address] 36092- 4239 16 Feb, 2017 Diabetes E11.9 ; HTN (hypertension) I10 ; Diabetic neuropathy E11.40 and Leg cramps R25.2 [place] [id number] [place] [address] 08263- 3542 15 Feb, 2017 Sprain of calcaneofibular ligament of right ankle, subsequent encounter S93.411D ; Major depressive disorder, recurrent episode, moderate F33.1 ; Diabetes E11.9 ; Hyperlipidemia E78.5 ; Post-traumatic stress disorder F43.10 and Other irritable bowel syndrome K58.8 [place] [id number] [place] [address] 15302- 9303 14 Feb, 2017 Major depressive disorder, recurrent episode, moderate F33.1 ; Post-traumatic stress disorder F43.10 and Obsessive-compulsive disorder , unspecified type F42.9 [place] [address] [address]- 0442 Feb, [place] [id number] [place] [address] 85137- 1743 09 Feb, 2017 Post-traumatic stress disorder F43.10 and Major depressive disorder, recurrent, moderate F33.1 [place] [id number] [place] [address] 18950- 0099 Feb, Diabetes E11.9 [place] [id number] [place] [address] 64999- 4819 Feb, Degenerative disc disease, lumbar M51.36 [facility] [address] [address] 3528 Feb, Post-traumatic stress disorder F43.10 and Major depressive disorder, recurrent, moderate F33.1 [facility] [address] [address]- 5926 Feb, [facility] [id number] [place] [address] [id number]- 4596 Feb, Diabetes E11.9 [facility] [id number] [place] [address] 22199- 3306 Jan, Diabetes E11.9 [facility] [id number] [place] [address] [id number]- 7319 Jan, Post-traumatic stress disorder F43.10 and Major depressive disorder, recurrent, moderate F33.1 [facility] [id number] [place] [address] 76458- 7188 Jan, Diabetes E11.9 [facility] [id number] [place] [address] 68594- 2949 Jan, Diabetes E11.9 [facility] [id number] [place] [address] [id number]- 5596 Jan, [facility] [address] [address]- 8516 Jan, [facility] [id number] [place] [address] 82583- 1274 Jan, Post-traumatic stress disorder F43.10 and Major depressive disorder, recurrent, moderate F33.1 [facility] [address] [address]- 7296 Jan, [facility] [id number] [address]- 9687 Jan, Major depressive disorder, recurrent episode, moderate F33.1 ; Post-traumatic stress disorder F43.10 and Obsessive-compulsive disorder , unspecified type F42.9 [facility] [address] [address]- 0064 17 Jan, 2017 [facility] [id number] [place] [address] 07523- 8356 Jan, Diabetes E11.9 [facility] [address] [address]- 2226 Jan, [facility] [id number] [place] [address] 28361- 0738 Jan, Sprain of calcaneofibular ligament of right ankle, subsequent encounter S93.411D [facility] [id number] [place] [address] 14340- 7653 Jan, Post-traumatic stress disorder F43.10 and Major depressive disorder, recurrent, moderate F33.1 [facility] [id number] [place] [address] 14920- 8528 Jan, Diabetes E11.9 [facility] [id number] [place] [address] 85430- 0661 16 Dec, 2016 Major depressive disorder, recurrent episode, moderate F33.1 ; Post-traumatic stress disorder F43.10 and Obsessive-compulsive disorder , unspecified type F42.9 [facility] [address] [address]- 4665 15 Dec, 2016 [facility] [id number] [place] [address] 82285- 6437 14 Dec, 2016 Sprain of calcaneofibular ligament of right ankle, subsequent encounter S93.411D [facility] [id number] [place] [address] 62090- 6818 13 Dec, 2016 Post-traumatic stress disorder F43.10 and Major depressive disorder, recurrent, moderate F33.1 [facility] [address] [address]- 5098 13 Dec, 2016 Sprain of calcaneofibular ligament of right ankle, subsequent encounter S93.411D [place] [id number] [place] [address] 70617- 5995 12 Dec, 2016 Hyperlipidemia E78.5 [place] [id number] [place] [address] 63956- 7696 Dec, [place] [id number] [place] [address] 73329- 3574 Dec, Diabetes E11.9 ; Diabetic neuropathy E11.40 ; Degenerative disc disease, lumbar M51.36 ; Hyperlipidemia E78.5 ; Insomnia G47.00 ; CAD ( coronary artery disease) I25.10 ; Major depressive disorder, recurrent, moderate F33.1 ; Post-traumatic stress disorder F43.10 and Other irritable bowel syndrome K58.8 [place] [id number] [place] [address] 17893- 4270 November, Diabetic neuropathy E11.40 and Hyperlipidemia E78.5 [place] [id number] [place] [address] 12425- 6595 November, Degenerative disc disease, lumbar M51.36 [place] [id number] [place] [address] 36916- 3066 Oct, [place] [id number] [place] [address] 97844- 1204 Oct, Degenerative disc disease, lumbar M51.36 [place] [id number] [place] [address] 40650- 8357 Sep, Degenerative disc disease, lumbar M51.36 and HTN ( hypertension) I10 [place] [id number] [place] [address] 08220- 7101 Sep, Diabetic neuropathy E11.40 ; HTN (hypertension) I10 ; Degenerative disc disease, lumbar M51.36 ; Hyperlipidemia E78.5 ; Insomnia G47.00 ; CAD (coronary artery disease) I25.10 and Diabetes E11.9 [place] [id number] [place] [address] 38961- 5245 Aug, [place] [address] [address]- 0130 Aug, Type 2 diabetes mellitus with hyperglycemia E11.65 [facility] [address], [place] [address]- 0417 Aug, [facility] [address] 9478 Jul, [facility] [id number] 9664 Jul, [facility] [address] [address]- 8291 Jun, [facility] [address] 8953 Jun, [facility] [address] [address]- 9680 Jun, [facility] [address] [address]- 4804 Jun, [facility] [address], [place] [address]- 3784 May, Major depressive disorder, recurrent episode, moderate F33.1 and Post-traumatic stress disorder F43.10 [facility] [address] [address]- 1925 May, Major depressive disorder, recurrent episode, moderate F33.1 and Post-traumatic stress disorder F43.10 [facility] [id number] [address]- 8532 May, Diabetes E11.9 ; Diabetic neuropathy E11.40 ; HTN ( hypertension) I10 ; Gastritis K29.70 ; Hyperlipidemia E78.5 ; Insomnia G47.00 and Major depressive disorder, recurrent, moderate F33.1 [facility] [id number] [address]- 6999 May, Major depressive disorder, recurrent episode, moderate F33.1 [place] [id number] [place] [address] 85861- 6916 Apr, [place] [id number] [place] [address] 50392- 7836 Apr, Major depressive disorder, recurrent episode, moderate F33.1 and Post-traumatic stress disorder F43.10 [place] [id number] [place] [address] 70576- 9601 Apr, Diabetes E11.9 ; Diabetic neuropathy E11.40 ; Degenerative disc disease, lumbar M51.36 ; HTN (hypertension) I10 ; Hyperlipidemia E78.5 ; Chronic pain G89.29 ; CAD (coronary artery disease) I25.10 and Major depressive disorder, recurrent, moderate F33.1 [place] [id number] [place] [address] 56287- 3283 Apr, Major depressive disorder, recurrent episode, moderate F33.1 and Post-traumatic stress disorder F43.10 [place] [id number] [place] [address] 58736- 3228 Apr, Major depressive disorder, recurrent episode, moderate F33.1 and Post-traumatic stress disorder F43.10 [place] [id number] [place] [address] 43943- 1582 Apr, Major depressive disorder, recurrent episode, moderate F33.1 and Unspecified episodic mood disorder F39 [place] [id number] [place] [address] 58526- 8780 Apr, Chronic pain G89.29 ; Diabetic neuropathy E11.40 ; HTN ( hypertension) I10 ; Insomnia G47.00 ; CAD (coronary artery disease) I25.10 ; Hyperlipidemia E78.5 ; Degenerative disc disease, lumbar M51.36 ; Diabetes E11.9 and Gastritis K29.70 [place] [id number] [place] [address] 31447- 1273 Sep, [place] [id number] [place] [address] 17811- 0278 Aug, [place] [address] [address]- 1256 Jul, Major depressive disorder, recurrent episode, moderate F33.1 [place] [id number] [place] [address] 36562- 9422 Jul, Unspecified episodic mood disorder F39 [place] [id number] [place] [address] 81096- 7565 Jul, [facility] [id number] [place] [address] 69232- 2286 Jul, [place] [id number] [place] [address] 16330- 2848 Jul, [place] [id number] [place] [address] 50285- 4851 Jul, Type 2 diabetes mellitus with hyperglycemia E11.65 ; Diabetic neuropathy E11.40 ; Degenerative disc disease, lumbar M51.36 ; HTN ( hypertension) I10 ; Gastritis K29.70 ; Hyperlipidemia E78.5 and CAD (coronary artery disease) I25.10 [place] [id number] [place] [address] 59609- 2084 Jul, Severe episode of recurrent major depressive disorder, without psychotic features F33.2 [place] [id number] [place] [address] 93397- 0613 Jul, [place] [id number] [place] [address] 05739- 0115 Jun, [place] [id number] [place] [address] 64962- 0606 Jun, Diabetes E11.9 ; Diabetic neuropathy E11.40 ; Degenerative disc disease, lumbar M51.36 ; HTN (hypertension) I10 ; Gastritis K29.70 ; Hyperlipidemia E78.5 ; Unspecified episodic mood disorder F39 ; Depression F32.9 and CAD (coronary artery disease) I25.10 [place] [id number] [place] [address] 48859- 9971 Jun, [place] [id number] [place] [address] 40497- 2843 Jun, [place] [address] 21978- 3487 Jun, Diabetes E11.9 ; Diabetic neuropathy E11.40 ; Degenerative disc disease, lumbar M51.36 ; HTN (hypertension) I10 ; Gastritis K29.70 ; Chronic pain G89.29 ; Insomnia G47.00 and Unspecified episodic mood disorder F39 [place] [address] 01246- 0944 May, Diabetic neuropathy E11.40 ; Degenerative disc disease, lumbar M51.36 ; HTN (hypertension) I10 ; Gastritis K29.70 ; Hyperlipidemia E78.5 ; Chronic pain G89.29 ; Insomnia G47.00 ; Unspecified episodic mood disorder F39 ; Diabetes E11.9 ; CAD (coronary artery disease) I25.10 and H/O Gram positive sepsis Z86.19 [place] [address] 65199- 9432 May, [place] [address] 99357- 1059 May, [place] [address] 04591- 8392 May, [place] [id number] [place] [address] 13138- 5777 May, [place] [address] 08798- 6438 May, UTI (urinary tract infection) N39.0 ; Diabetes E11.9 ; Diabetic neuropathy E11.40 ; Hyperlipidemia E78.5 and Chronic pain G89.29 [place] [id number] [place] [address] 02920- 0800 May, Insomnia, unspecified G47.00 and Chronic pain G89.29 [place] [address] 88628- 1131 May, [facility] [address] [address]- 0097 May, [facility] [id number] [place] [address] 87784- 9488 May, [facility] [id number] [place] [address] 90273- 3039 Apr, Insomnia, unspecified G47.00 ; Chronic pain G89.29 and Unspecified episodic mood disorder F39 [facility] [id number] [place] [address] 13677- 9217 Apr, Unspecified episodic mood disorder F39 [facility] [id number] [place] [address] 15712- 6870 Apr, Major depression F32.9 [place] [id number] [place] [address] 83168- 6421 Apr, [facility] [id number] [place] [address] 36906- 2566 Apr, Diabetes E11.9 ; Diabetic neuropathy E11.40 ; Degenerative disc disease, lumbar M51.36 ; HTN (hypertension) I10 ; Gastritis K29.70 ; Hyperlipidemia E78.5 ; Chronic pain G89.29 and Insomnia G47.00 [place] [id number] [place] [address] 95805- 0154 Mar, [facility] [id number] [place] [address] 14524- 1711 Mar, [place] [id number] [place] [address] 92023- 2643 Mar, [facility] [id number] [place] [address] 91771- 7702 Mar, Diabetes mellitus 250.00 ; Diabetic neuropathy 250.60 ; CAD (coronary artery disease) 414.00 ; Degenerative disc disease, lumbar 722.52 ; Gastritis 535.50 and Insomnia 780.52 [place] [address] [place] [address]- 4030 Mar, Diabetes mellitus 250.00 ; Degenerative disc disease, lumbar 722.52 ; Essential hypertension 401.9 ; Gastritis 535.50 and Chronic pain 338.29 [facility] [id number] [address]- 4021 Feb, [facility] [id number] [place] [address] 62597- 8938 Feb, [facility] [id number] [place] [address] 58708- 4553 Jan, [facility] [id number] [place] [address] 42445- 4526 Jan, Diabetes mellitus 250.00 ; Diabetic neuropathy 250.60 ; Degenerative disc disease, lumbar 722.52 ; CAD (coronary artery disease) 414.00 ; Essential hypertension 401.9 ; Gastritis 535.50 ; Hyperlipidemia 272.4 and Distal end of ulna fracture, closed 813.43 [facility] [id number] [place] [address] [id number]- 9730 Dec, Wrist pain 719.43 and Diabetes mellitus 250.00 [facility] [id number] [place] [address] 52049- 0756 May, [facility] [id number] [place] [address] 49520- 0522 Dec, [facility] [id number] [place] [address] 47712- 3079 November, [facility] [id number] [place] [address] 14240- 3322 Oct, [facility] [id number] [place] [address] 83860- 0896 Sep, [facility] [address] [address]- 2615 Sep, [facility] [id number] [place] [address] 56776- 8240 Jun, [facility] [address] [facility] [id number] 5750 Jun, [facility] [address] [facility] [id number] [address]- 5989 14 Jun, 2009 [facility] [address] [facility] [id number] [address]- 5453 Jun, [facility] [address] [facility] [id number] [address]- 7212 Jun, [facility] [address] [facility] [id number] [address] Jun, [facility] [address] [facility] [id number] [address] Jun, [facility] [address] [facility] [id number] [address] May, [facility] [address] [facility] [id number] [address] May, [facility] [address] [facility] [id number] [address] May, [facility] [address] [facility] [id number] [address] May, [facility] [address] [facility] [id number] [address] Apr, [facility] [address] [facility] [id number] [address] Apr, [facility] [address] [facility] [id number] [address] Apr, [facility] [address] [facility] [id number] [address] 16 Mar, 2009 [facility] [address] [facility] [id number] [address] Dec, IMMUNIZATIONS No Known Immunizations SOCIAL HISTORY Never Assessed REASON FOR VISIT Refill request PLAN OF CARE VITAL SIGNS MEDICATIONS Unknown [...]
--- OUTSIDE RECORDS SUMMARY | 2018-01-18 11:02 | XMS REPORT ---
Author Author AMINA ARECHIGA [facility] Address [address] [place] [address] Care Team Providers Care Rn Progressive Care Unit Name Role Phone AMINA ARECHIGA Unavailable PROBLEMS Type Condition ICD9-CM Code TFM69-QT Code Onset Dates Condition Status SNOMED Code Problem Type 2 diabetes mellitus with hyperglycemia E11.65 Active 096970851516153 Problem Obsessive-compulsive disorder, unspecified type F42.9 Active 793812068 Problem Major depressive disorder, recurrent episode, moderate F33.1 Active 343672441 Problem Falls frequently R29.6 Active 846813020 Problem Diabetes E11.9 Active 845928923 Problem Type 2 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 E11.49 Active 81937442 Problem History of pulmonary embolism Z86.711 Active 503137484 Problem MCC 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.4 Active 759191942 Problem 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.29 Active 17416584 Problem Hyperlipidemia E78.5 Active 87755650 Problem Insomnia G47.00 Active 311805549 Problem HTN (hypertension) I10 Active 01168661 Problem Chronic pain G89.29 Active 02401638 Problem CAD (coronary artery disease) I25.10 Active 79516472 Problem Degenerative disc disease, lumbar M51.36 Active 48948635 Problem Post-traumatic stress disorder F43.10 Active 14651415 ALLERGIES No Information ENCOUNTERS Encounter Location Date Diagnosis [facility] [id number] [address] November, [facility] [id number] [place] [address] 57451- 9607 Sep, Diabetes E11.9 [facility] [address] [address] 17[address] Sep, Chronic pain G89.29 [facility] [id number] [address] Sep, [facility] [id number] [place] [address] 58073- 9608 Sep, Falls frequently R29.6 ; MCC 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.4 and Type 2 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 E11.49 [facility] [id number] [place] [address] 50826- 7617 Sep, [facility] [id number] [place] [address] 75650- 2023 Sep, Diabetes E11.9 [facility] [id number] [place] [address] 13824- 0847 Aug, [facility] [id number] [place] [address] 10008- 7554 Aug, Chronic pain G89.29 [facility] [id number] [place] [address] 90171- 9894 Aug, [facility] [id number] [place] [address] 75218- 2059 Aug, Chronic pain G89.29 [facility] [id number] [place] [address] 05101- 6235 Jul, [facility] [id number] [place] [address] 39203- 5958 Jul, Diabetes E11.9 and 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.29 [facility] [address] [address] 0126 Jul, 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.29 [facility] [id number] [address]- 9175 Jul, [facility] [address] [address] Jul, Chronic pain G89.29 [facility] [id number] [place] [address] 10459- 2586 Jun, Diabetes E11.9 [facility] [id number] [place] [address] 85024- 7444 Jun, Chronic pain G89.29 [facility] [id number] [place] [address] 09606- 3330 13 Jun, 2017 Diabetes E11.9 ; Atypical chest pain R07.89 ; MCC 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.4 ; 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.29 ; Type 2 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 E11.49 ; History of pulmonary embolism Z86.711 and History of CVA (cerebrovascular accident) Z86.73 [facility] [id number] [place] [address] 06269- 2653 May, [facility] [id number] [place] [address] 14465- 0510 May, Chronic pain G89.29 [facility] [id number] [place] [address] 30710- 9856 Apr, Chronic pain G89.29 [facility] [id number] [place] [address] 40144- 0936 Apr, [facility] [id number] [place] [address] 21938- 1054 Mar, Chronic pain G89.29 [facility] [id number] [place] [address] 09989- 3447 18 Mar, 2017 Diabetes E11.9 [facility] [id number] [place] [address] 21451- 3028 07 Mar, 2017 [facility] [id number] [place] [address] 90168- 3213 Mar, Degenerative disc disease, lumbar M51.36 [facility] [id number] [place] [address] 03218- 0600 Feb, Diabetes E11.9 [facility] [address] [place] [address]- 1808 23 Feb, 2017 Diabetes E11.9 [facility] [id number] [place] [address] 43336- 9174 16 Feb, 2017 Diabetes E11.9 ; HTN (hypertension) I10 ; Diabetic neuropathy E11.40 and Leg cramps R25.2 [facility] [id number] [place] [address] 23271- 1373 15 Feb, 2017 Sprain of calcaneofibular ligament of right ankle, subsequent encounter S93.411D ; Major depressive disorder, recurrent episode, moderate F33.1 ; Diabetes E11.9 ; Hyperlipidemia E78.5 ; Post-traumatic stress disorder F43.10 and Other irritable bowel syndrome K58.8 [facility] [id number] [place] [address] 53888- 0839 Feb, Major depressive disorder, recurrent episode, moderate F33.1 ; Post-traumatic stress disorder F43.10 and Obsessive-compulsive disorder , unspecified type F42.9 [facility] [id number] [place] [address] 57934- 6596 Feb, [facility] [id number] [place] [address] 05163- 4631 Feb, Post-traumatic stress disorder F43.10 and Major depressive disorder, recurrent, moderate F33.1 [facility] [address] [place] [address] 46504- 7436 Feb, Diabetes E11.9 [facility] [id number] [place] [address] 10224- 1255 Feb, Degenerative disc disease, lumbar M51.36 [facility] [id number] [place] [address] 27996- 8975 Feb, Post-traumatic stress disorder F43.10 and Major depressive disorder, recurrent, moderate F33.1 [facility] [address] [place] [address] 44543- 3561 Feb, [facility] [id number] [address] 2546 Feb, Diabetes E11.9 [facility] [address] [address] 2546 Jan, Diabetes E11.9 [facility] [address] [facility] [id number] [address] 2546 Jan, Post-traumatic stress disorder F43.10 and Major depressive disorder, recurrent, moderate F33.1 [facility] [address] [address] 2546 Jan, Diabetes E11.9 [facility] [id number] [place] [address] 10267 2546 Jan, Diabetes E11.9 [facility] [id number] [place] [address] 03945- 9296 Jan, [facility] [id number] [place] [address] 68743- 1586 Jan, [facility] [address] [address] 2543 Jan, Post-traumatic stress disorder F43.10 and Major depressive disorder, recurrent, moderate F33.1 [facility] [address] [address]- 2546 Jan, [facility] [address] [address] 2546 Jan, Major depressive disorder, recurrent episode, moderate F33.1 ; Post-traumatic stress disorder F43.10 and Obsessive-compulsive disorder , unspecified type F42.9 [facility] [address] [address] 2546 Jan, [facility] [address] [address]- 2546 Jan, Diabetes E11.9 [facility] [address] [address] Jan, [facility] [address] [address]- 0239 Jan, Sprain of calcaneofibular ligament of right ankle, subsequent encounter S93.411D [facility] [address] [place] [address] 22321- 7956 13 Jan, 2017 Post-traumatic stress disorder F43.10 and Major depressive disorder, recurrent, moderate F33.1 [facility] [id number] [place] [address] 29057- 0083 07 Jan, 2017 Diabetes E11.9 [facility] [id number] [place] [address] 35283- 3703 16 Dec, 2016 Major depressive disorder, recurrent episode, moderate F33.1 ; Post-traumatic stress disorder F43.10 and Obsessive-compulsive disorder , unspecified type F42.9 [facility] [id number] [place] [address] 37643- 0698 15 Dec, 2016 [facility] [id number] [place] [address] 16166- 2075 14 Dec, 2016 Sprain of calcaneofibular ligament of right ankle, subsequent encounter S93.411D [facility] [address] [place] [address] 71429- 6593 13 Dec, 2016 Post-traumatic stress disorder F43.10 and Major depressive disorder, recurrent, moderate F33.1 [facility] [address] [place] [address] 26453- 8470 13 Dec, 2016 Sprain of calcaneofibular ligament of right ankle, subsequent encounter S93.411D [facility] [id number] [place] [address] 30669- 7695 12 Dec, 2016 Hyperlipidemia E78.5 [facility] [id number] [place] [address] 82636- 1144 08 Dec, 2016 [facility] [address] [place] [address] 24321- 0132 07 Dec, 2016 Diabetes E11.9 ; Diabetic neuropathy E11.40 ; Degenerative disc disease, lumbar M51.36 ; Hyperlipidemia E78.5 ; Insomnia G47.00 ; CAD ( coronary artery disease) I25.10 ; Major depressive disorder, recurrent, moderate F33.1 ; Post-traumatic stress disorder F43.10 and Other irritable bowel syndrome K58.8 [facility] [address] 24992- 8116 November, Diabetic neuropathy E11.40 and Hyperlipidemia E78.5 [facility] [address] 36936- 3519 November, Degenerative disc disease, lumbar M51.[address] 08949- 7110 Oct, [address] 83868- 3887 Oct, Degenerative disc disease, lumbar M51.36 [facility] [address] 33090- 7432 Sep, Degenerative disc disease, lumbar M51.36 and HTN ( hypertension) I10 [address] 12850- 5655 Sep, Diabetic neuropathy E11.40 ; HTN (hypertension) I10 ; Degenerative disc disease, lumbar M51.36 ; Hyperlipidemia E78.5 ; Insomnia G47.00 ; CAD (coronary artery disease) I25.10 and Diabetes E11.9 [facility] [id number] [place] [address] 55384- 3764 Aug, [address] 13409- 0953 Aug, Type 2 diabetes mellitus with hyperglycemia E11.65 [facility] [id number] [place] [address] 09370- 3031 Aug, [address] 34564- 3992 Jul, [facility] [address] [address]- 2292 Jul, [facility] [id number] [place] [address] 515092- 9779 Jun, [facility] [address] [address]- 4865 Jun, [facility] [id number] [place] [address] 020106- 5546 Jun, [facility] [id number] [place] [address] 129251- 2209 Jun, [facility] [id number] [place] [address] 729801- 6175 May, Major depressive disorder, recurrent episode, moderate F33.1 and Post-traumatic stress disorder F43.10 [facility] [address] [address]- 6303 May, Major depressive disorder, recurrent episode, moderate F33.1 and Post-traumatic stress disorder F43.10 [facility] [address] [place] [address] 09471- 6904 May, Diabetes E11.9 ; Diabetic neuropathy E11.40 ; HTN ( hypertension) I10 ; Gastritis K29.70 ; Hyperlipidemia E78.5 ; Insomnia G47.00 and Major depressive disorder, recurrent, moderate F33.1 [facility] [address] [address]- 8621 May, Major depressive disorder, recurrent episode, moderate F33.1 [facility] [address] [address]- 7920 Apr, [facility] [id number] [place] [address] 681101- 1218 Apr, Major depressive disorder, recurrent episode, moderate F33.1 and Post-traumatic stress disorder F43.10 [facility] [address] [address]- 5889 Apr, Diabetes E11.9 ; Diabetic neuropathy E11.40 ; Degenerative disc disease, lumbar M51.36 ; HTN (hypertension) I10 ; Hyperlipidemia E78.5 ; Chronic pain G89.29 ; CAD (coronary artery disease) I25.10 and Major depressive disorder, recurrent, moderate F33.1 [facility] [id number] [place] [address] 93754- 8788 Apr, Major depressive disorder, recurrent episode, moderate F33.1 and Post-traumatic stress disorder F43.10 [facility] [id number] [place] [address] 14727- 5680 Apr, Major depressive disorder, recurrent episode, moderate F33.1 and Post-traumatic stress disorder F43.10 [facility] [id number] [place] [address] 93373- 2922 Apr, Major depressive disorder, recurrent episode, moderate F33.1 and Unspecified episodic mood disorder F39 [facility] [id number] [place] [address] 68171- 0668 Apr, Chronic pain G89.29 ; Diabetic neuropathy E11.40 ; HTN ( hypertension) I10 ; Insomnia G47.00 ; CAD (coronary artery disease) I25.10 ; Hyperlipidemia E78.5 ; Degenerative disc disease, lumbar M51.36 ; Diabetes E11.9 and Gastritis K29.70 [facility] [id number] [place] [address] 74252- 2788 Sep, [facility] [id number] [place] [address] 51585- 4804 Aug, [facility] [id number] [place] [address] 57222- 0309 Jul, Major depressive disorder, recurrent episode, moderate F33.1 [facility] [id number] [place] [address] 46885- 5588 Jul, Unspecified episodic mood disorder F39 [facility] [id number] [place] [address] 07900- 1126 Jul, [facility] [id number] [place] [address] 22658- 0956 Jul, [facility] [address] 59690- 1140 Jul, [address] 24336- 3852 Jul, Type 2 diabetes mellitus with hyperglycemia E11.65 ; Diabetic neuropathy E11.40 ; Degenerative disc disease, lumbar M51.36 ; HTN ( hypertension) I10 ; Gastritis K29.70 ; Hyperlipidemia E78.5 and CAD (coronary artery disease) I25.[address] 62618- 6121 Jul, Severe episode of recurrent major depressive disorder, without psychotic features F33.[address] 25683- 7854 Jul, [address] 51805- 5011 Jun, [address] 70389- 7728 Jun, Diabetes E11.9 ; Diabetic neuropathy E11.40 ; Degenerative disc disease, lumbar M51.36 ; HTN (hypertension) I10 ; Gastritis K29.70 ; Hyperlipidemia E78.5 ; Unspecified episodic mood disorder F39 ; Depression F32.9 and CAD (coronary artery disease) I25.10 [place] [id number] [place] [address] 13651- 0490 Jun, [address] 50642- 1603 Jun, [address] 54191- 8428 Jun, Diabetes E11.9 ; Diabetic neuropathy E11.40 ; Degenerative disc disease, lumbar M51.36 ; HTN (hypertension) I10 ; Gastritis K29.70 ; Chronic pain G89.29 ; Insomnia G47.00 and Unspecified episodic mood disorder F39 [facility] [id number] [place] [address] 21802- 4501 May, Diabetic neuropathy E11.40 ; Degenerative disc disease, lumbar M51.36 ; HTN (hypertension) I10 ; Gastritis K29.70 ; Hyperlipidemia E78.5 ; Chronic pain G89.29 ; Insomnia G47.00 ; Unspecified episodic mood disorder F39 ; Diabetes E11.9 ; CAD (coronary artery disease) I25.10 and H/O Gram positive sepsis Z86.19 [facility] [id number] [place] [address] 35689- 5175 May, [facility] [address] 43269- 3057 May, [facility] [id number] [place] [address] 14929- 6051 May, [facility] [id number] [place] [address] 55461- 8037 May, [facility] [id number] [place] [address] 28244- 7664 May, Diabetes E11.9 ; Chronic pain G89.29 ; UTI (urinary tract infection) N39.0 ; Hyperlipidemia E78.5 and Diabetic neuropathy E11.40 [facility] [id number] [place] [address] 46617- 7800 May, Insomnia, unspecified G47.00 and Chronic pain G89.29 [facility] [id number] [place] [address] 81319- 8383 May, [facility] [id number] [place] [address] 08812- 8482 May, [facility] [id number] [place] [address] 10200- 3312 May, [facility] [id number] [place] [address] 43638- 5243 Apr, Insomnia, unspecified G47.00 ; Chronic pain G89.29 and Unspecified episodic mood disorder F39 [facility] [id number] [place] [address] 07487- 2853 Apr, Unspecified episodic mood disorder F39 [facility] [id number] [place] [address] 66272- 7188 Apr, Major depression F32.9 [facility] [address] 16028- 4669 Apr, [facility] [id number] [place] [address] 87369- 3531 Apr, Diabetes E11.9 ; Diabetic neuropathy E11.40 ; Degenerative disc disease, lumbar M51.36 ; HTN (hypertension) I10 ; Gastritis K29.70 ; Hyperlipidemia E78.5 ; Chronic pain G89.29 and Insomnia G47.00 [facility] [address] 81545- 4472 Mar, [facility] [id number] [place] [address] 52915- 7277 Mar, [facility] [address] 35450- 3017 Mar, [facility] [id number] [place] [address] 71137- 4085 16 Mar, 2015 Diabetes mellitus 250.00 ; Diabetic neuropathy 250.60 ; CAD (coronary artery disease) 414.00 ; Degenerative disc disease, lumbar 722.52 ; Gastritis 535.50 and Insomnia 780.52 [facility] [id number] [place] [address] 58816- 9269 Mar, Diabetes mellitus 250.00 ; Degenerative disc disease, lumbar 722.52 ; Essential hypertension 401.9 ; Gastritis 535.50 and Chronic pain 338.29 [facility] [id number] [place] [address] 33648- 0065 Feb, [facility] [address] 91546- 2546 Feb, [facility] [address] [address]- 9280 Jan, [facility] [id number] [place] [address] 54589- 2236 Jan, Diabetes mellitus 250.00 ; Diabetic neuropathy 250.60 ; Degenerative disc disease, lumbar 722.52 ; CAD (coronary artery disease) 414.00 ; Essential hypertension 401.9 ; Gastritis 535.50 ; Hyperlipidemia 272.4 and Distal end of ulna fracture, closed 813.43 [facility] [id number] [place] [address] 90182- 4730 Dec, Wrist pain 719.43 and Diabetes mellitus 250.00 [facility] [id number] [place] [address] 02480- 9986 May, [facility] [id number] [place] [address] 35481- 1919 Dec, [facility] [id number] [place] [address] 63364- 0756 November, [facility] [id number] [place] [address] 08121- 1466 16 Oct, 2009 [facility] [id number] [place] [address] 09280- 1536 17 Sep, 2009 [facility] [id number] [place] [address] 45071- 8306 Sep, [facility] [id number] [place] [address] 88788- 5421 Jun, [facility] [id number] [place] [address] 95041- 7856 Jun, [facility] [id number] [address]- 2546 14 Jun, 2009 [facility] [id number] [place] [address] 23060- 6406 Jun, [facility] [address] [address]- 6867 Jun, [facility] [address] [address]- 3107 Jun, [facility] [address] [address]- 5466 Jun, [facility] [id number] [place] [address] 91972- 9334 May, [facility] [address] [address]- 4745 May, [facility] [id number] [place] [address] 24479- 6639 May, [facility] [address] [address]- 8026 May, [facility] [address] [address]- 5421 Apr, [facility] [address] 1079 Apr, [facility] [address] [address]- 4371 Apr, [facility] [address] [address]- 9429 Mar, [facility] [address] [address]- 9944 Dec, IMMUNIZATIONS No Known Immunizations SOCIAL HISTORY Never Assessed REASON FOR VISIT Follow-up PTSD/Depression PLAN OF CARE Activity Details Follow Up 1 Week Reason: Follow-up VITAL SIGNS MEDICATIONS Unknown Medications RESULTS No Results PROCEDURES Procedure Date Ordered Result Body Site Psychotherapy, patient &/family, 30 minutes, established patient February 05, 2017 INSTRUCTIONS MEDICATIONS ADMINISTERED No Known Medications [...]
--- OUTSIDE RECORDS SUMMARY | 2018-01-18 11:02 | XMS REPORT ---
Author Author JALEN PEREZ Organization [facility] Address [address] [place] [address] Care Team Providers Care Mixing Technician Name Role Phone JALEN PEREZ Unavailable PROBLEMS Type Condition ICD9-CM Code NVK05-MA Code Onset Dates Condition Status SNOMED Code Problem Type 2 diabetes mellitus with hyperglycemia E11.65 Active [id number] Problem Obsessive-compulsive disorder, unspecified type F42.9 Active 296622524 Problem Major depressive disorder, recurrent episode, moderate F33.1 Active 351906801 Problem Falls frequently R29.6 Active 514645108 Problem Diabetes E11.9 Active 113966676 Problem Type 2 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 E11.49 Active 08386887 Problem History of pulmonary embolism Z86.711 Active 751332789 Problem purse seining hand 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.4 Active 251188255 Problem 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.29 Active 24709916 Problem Hyperlipidemia E78.5 Active 86332560 Problem Insomnia G47.00 Active 379539242 Problem HTN (hypertension) I10 Active 32481338 Problem Chronic pain G89.29 Active 95111934 Problem CAD (coronary artery disease) I25.10 Active 52927334 Problem Degenerative disc disease, lumbar M51.36 Active 79628306 Problem Post-traumatic stress disorder F43.10 Active 09043294 ALLERGIES Substance Reaction Event Type Date Status Viibryd N/V Drug Allergy Jun, Active Seroquel N/V and "couldn't do anything." Drug Allergy Jun, Active Penicillin V Potassium Unknown Drug Allergy Jun, Active Lexapro N/V, inc. suicidality Drug Allergy Jun, Active Ibuprofen Unknown Drug Allergy Jun, Active Depakote inc. suicidality Drug Allergy Jun, Active ENCOUNTERS Encounter Location Date Diagnosis [facility] [address] [facility] [id number] [address] Dec, [facility] [address] [address] November, [facility] [id number] [place] [address] 20168- 4292 November, Diabetes E11.9 ; CAD (coronary artery disease) I25.10 ; Atypical chest pain R07.89 ; Type 2 diabetes mellitus with hyperglycemia E11.65 ; 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.29 ; correction 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.4 and Chronic pain G89.29 [facility] [id number] [address] Oct, [facility] [id number] [place] [address] 25095- 2229 Oct, Chronic pain G89.29 [facility] [id number] [place] [address] 97998- 0055 Sep, Diabetes E11.9 [facility] [address], [place] [address] Sep, Chronic pain G89.29 [facility] [address] [address] Sep, [facility] [address] [address] Sep, Falls frequently R29.6 ; purse seining hand 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.4 and Type 2 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 E11.49 [facility] [address] [address] Sep, [facility] [id number] [place] [address] 74197- 7486 Sep, Diabetes E11.9 [facility] [address] [address] 99[address] Aug, [facility] [id number] [place] [address] 34871- 4977 Aug, Chronic pain G89.29 [facility] [address] [address] 9073 Aug, [facility] [address] [place] [address] 38667- 4792 Aug, Chronic pain G89.29 [facility] [address] [place] [address] 87178- 4565 Jul, [facility] [id number] [place] [address] 98358- 1806 Jul, Diabetes E11.9 and 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.29 [facility] [id number] [place] [address] 04572- 4272 Jul, 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.29 [facility] [address] [place] [address] 40321- 6625 Jul, [facility] [address] [place] [address] 36755- 9375 Jul, Chronic pain G89.29 [facility] [address] [place] [address] 07540- 1037 Jun, Diabetes E11.9 [facility] [address] [place] [address] 38477- 9113 Jun, Chronic pain G89.29 [facility] [address] [place] [address] 86217- 1255 Jun, Diabetes E11.9 ; Atypical chest pain R07.89 ; purse seining hand 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.4 ; 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.29 ; Type 2 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 E11.49 ; History of pulmonary embolism Z86.711 and History of CVA (cerebrovascular accident) Z86.73 [facility] [address] [address] 58[address] May, [facility] [address], [place] [address] 4172 May, Chronic pain G89.29 [facility] [id number] [place] [address] 35747- 7027 30 Apr, 2017 Chronic pain G89.29 [facility] [id number] [place] [address] 35573- 6797 02 Apr, 2017 [facility] [id number] [place] [address] 15685- 2454 29 Mar, 2017 Chronic pain G89.29 [facility] [id number] [place] [address] 65022- 2628 18 Mar, 2017 Diabetes E11.9 [facility] [id number] [place] [address] 37389- 7997 07 Mar, 2017 [facility] [id number] [place] [address] 37240- 5211 Mar, Degenerative disc disease, lumbar M51.36 [facility] [id number] [place] [address] 70173- 2568 28 Feb, 2017 Diabetes E11.9 [facility] [id number] [place] [address] 97180- 8697 23 Feb, 2017 Diabetes E11.9 [facility] [id number] [place] [address] 11398- 2940 16 Feb, 2017 Diabetes E11.9 ; HTN (hypertension) I10 ; Diabetic neuropathy E11.40 and Leg cramps R25.2 [facility] [address] [place] [address] 95162- 6244 15 Feb, 2017 Sprain of calcaneofibular ligament of right ankle, subsequent encounter S93.411D ; Major depressive disorder, recurrent episode, moderate F33.1 ; Diabetes E11.9 ; Hyperlipidemia E78.5 ; Post-traumatic stress disorder F43.10 and Other irritable bowel syndrome K58.8 [facility] [id number] [place] [address] 07005- 7623 Feb, Major depressive disorder, recurrent episode, moderate F33.1 ; Post-traumatic stress disorder F43.10 and Obsessive-compulsive disorder , unspecified type F42.9 [facility] [id number] [place] [address] 81727- 6539 Feb, [facility] [id number] [place] [address] 67989- 3371 Feb, Post-traumatic stress disorder F43.10 and Major depressive disorder, recurrent, moderate F33.1 [facility] [address] [place] [address] 81091- 1411 Feb, Diabetes E11.9 [facility] [id number] [place] [address] 86801- 7805 Feb, Degenerative disc disease, lumbar M51.36 [facility] [id number] [place] [address] 05128- 4115 Feb, Post-traumatic stress disorder F43.10 and Major depressive disorder, recurrent, moderate F33.1 [facility] [id number] [place] [address] 02615- 9866 Feb, [facility] [id number] [place] [address] 61786- 0173 Feb, Diabetes E11.9 [facility] [id number] [place] [address] 75209- 1230 Jan, Diabetes E11.9 [facility] [id number] [place] [address] 97349- 8588 Jan, Post-traumatic stress disorder F43.10 and Major depressive disorder, recurrent, moderate F33.1 [facility] [id number] [place] [address] 01380- 1050 Jan, Diabetes E11.9 [facility] [id number] [place] [address] 96766- 3813 Jan, Diabetes E11.9 [facility] [id number] [place] [address] 20909- 6532 Jan, [facility] [address], [place] [address]- 3371 Jan, [facility] [address] [place] [address] 43328- 3884 Jan, Post-traumatic stress disorder F43.10 and Major depressive disorder, recurrent, moderate F33.1 [facility] [address], [place] [address]- 5972 Jan, [facility] [address], [place] [address]- 8354 Jan, Major depressive disorder, recurrent episode, moderate F33.1 ; Post-traumatic stress disorder F43.10 and Obsessive-compulsive disorder , unspecified type F42.9 [facility] [address], [place] [address]- 7189 Jan, [facility] [address], [place] [address]- 7213 Jan, Diabetes E11.9 [facility] [address] [place] [address] 42927- 7262 Jan, [facility] [address], [place] [address]- 9374 Jan, Sprain of calcaneofibular ligament of right ankle, subsequent encounter S93.411D [facility] [address], [place] [address]- 4454 Jan, Post-traumatic stress disorder F43.10 and Major depressive disorder, recurrent, moderate F33.1 [facility] [address], [place] [address]- 4446 Jan, Diabetes E11.9 [facility] [address], [place] [address]- 9485 Dec, Major depressive disorder, recurrent episode, moderate F33.1 ; Post-traumatic stress disorder F43.10 and Obsessive-compulsive disorder , unspecified type F42.9 [facility] [id number] [place] [address] 54558- 1259 15 Dec, 2016 [facility] [id number] [place] [address] 02839- 5882 14 Dec, 2016 Sprain of calcaneofibular ligament of right ankle, subsequent encounter S93.411D [facility] [id number] [place] [address] 82855- 9566 13 Dec, 2016 Post-traumatic stress disorder F43.10 and Major depressive disorder, recurrent, moderate F33.1 [facility] [id number] [place] [address] 23495- 5780 13 Dec, 2016 Sprain of calcaneofibular ligament of right ankle, subsequent encounter S93.411D [facility] [id number] [place] [address] 30303- 2230 12 Dec, 2016 Hyperlipidemia E78.5 [facility] [id number] [place] [address] 92842- 4561 08 Dec, 2016 [facility] [id number] [place] [address] 89719- 1193 07 Dec, 2016 Diabetes E11.9 ; Diabetic neuropathy E11.40 ; Degenerative disc disease, lumbar M51.36 ; Hyperlipidemia E78.5 ; Insomnia G47.00 ; CAD ( coronary artery disease) I25.10 ; Major depressive disorder, recurrent, moderate F33.1 ; Post-traumatic stress disorder F43.10 and Other irritable bowel syndrome K58.8 [facility] [address] [place] [address] 03112- 4209 November, Diabetic neuropathy E11.40 and Hyperlipidemia E78.5 [facility] [id number] [place] [address] 30537- 5485 November, Degenerative disc disease, lumbar M51.36 [facility] [id number] [place] [address] 51373- 0366 Oct, [facility] [id number] [place] [address] 73206- 1762 Oct, Degenerative disc disease, lumbar M51.36 [facility] [address] 48556- 7392 Sep, Degenerative disc disease, lumbar M51.36 and HTN ( hypertension) I10 [facility] [id number] [place] [address] 657003- 8045 Sep, Diabetic neuropathy E11.40 ; HTN (hypertension) I10 ; Degenerative disc disease, lumbar M51.36 ; Hyperlipidemia E78.5 ; Insomnia G47.00 ; CAD (coronary artery disease) I25.10 and Diabetes E11.9 [facility] [address] 92369- 3219 Aug, [facility] [id number] [place] [address] 01380- 9664 Aug, Type 2 diabetes mellitus with hyperglycemia E11.65 [facility] [id number] [place] [address] 54846- 9545 Aug, [facility] [id number] [place] [address] 94979- 5624 Jul, [facility] [id number] [place] [address] 73737- 7138 Jul, [facility] [id number] [place] [address] 36196- 7864 Jun, [facility] [id number] [place] [address] 59525- 2184 Jun, [facility] [id number] [place] [address] 69365- 6745 Jun, [facility] [id number] [place] [address] 440756- 7704 Jun, [facility] [id number] [place] [address] 21440- 5456 May, Major depressive disorder, recurrent episode, moderate F33.1 and Post-traumatic stress disorder F43.10 [facility] [address] [place] [address] 23104- 9401 May, Major depressive disorder, recurrent episode, moderate F33.1 and Post-traumatic stress disorder F43.10 [facility] [id number] [place] [address] 89562- 5742 May, Diabetes E11.9 ; Diabetic neuropathy E11.40 ; HTN ( hypertension) I10 ; Gastritis K29.70 ; Hyperlipidemia E78.5 ; Insomnia G47.00 and Major depressive disorder, recurrent, moderate F33.1 [facility] [id number] [place] [address] 989473- 1670 May, Major depressive disorder, recurrent episode, moderate F33.1 [facility] [id number] [place] [address] 81712- 5048 Apr, [facility] [id number] [place] [address] 034211- 1418 Apr, Major depressive disorder, recurrent episode, moderate F33.1 and Post-traumatic stress disorder F43.10 [facility] [id number] [place] [address] 739928- 8541 Apr, Diabetes E11.9 ; Diabetic neuropathy E11.40 ; Degenerative disc disease, lumbar M51.36 ; HTN (hypertension) I10 ; Hyperlipidemia E78.5 ; Chronic pain G89.29 ; CAD (coronary artery disease) I25.10 and Major depressive disorder, recurrent, moderate F33.1 [facility] [address] [place] [address] 07506- 2130 Apr, Major depressive disorder, recurrent episode, moderate F33.1 and Post-traumatic stress disorder F43.10 [facility] [id number] [place] [address] 0122 Apr, Major depressive disorder, recurrent episode, moderate F33.1 and Post-traumatic stress disorder F43.10 [facility] [id number] [place] [address] 50749- 6870 Apr, Major depressive disorder, recurrent episode, moderate F33.1 and Unspecified episodic mood disorder F39 [facility] [id number] [place] [address] 63760- 4303 Apr, Chronic pain G89.29 ; Diabetic neuropathy E11.40 ; HTN ( hypertension) I10 ; Insomnia G47.00 ; CAD (coronary artery disease) I25.10 ; Hyperlipidemia E78.5 ; Degenerative disc disease, lumbar M51.36 ; Diabetes E11.9 and Gastritis K29.70 [facility] [id number] [place] [address] 92588- 9028 Sep, [facility] [address] 91154- 9740 Aug, [facility] [address] 94873- 6492 Jul, Major depressive disorder, recurrent episode, moderate F33.1 [facility] [id number] [place] [address] 91277- 3237 Jul, Unspecified episodic mood disorder F39 [facility] [address] 01700- 2006 Jul, [facility] [id number] [place] [address] 65653- 1824 Jul, [facility] [id number] [place] [address] 95830- 0528 Jul, [facility] [id number] [place] [address] 53889- 9179 Jul, Type 2 diabetes mellitus with hyperglycemia E11.65 ; Diabetic neuropathy E11.40 ; Degenerative disc disease, lumbar M51.36 ; HTN ( hypertension) I10 ; Gastritis K29.70 ; Hyperlipidemia E78.5 and CAD (coronary artery disease) I25.10 [facility] [id number] [place] [address] 15846- 5059 Jul, Severe episode of recurrent major depressive disorder, without psychotic features F33.2 [facility] [address] [place] [address] 73512- 3013 Jul, [facility] [id number] [place] [address] 47902- 2358 Jun, [facility] [id number] [place] [address] 69661- 9763 Jun, Diabetes E11.9 ; Diabetic neuropathy E11.40 ; Degenerative disc disease, lumbar M51.36 ; HTN (hypertension) I10 ; Gastritis K29.70 ; Hyperlipidemia E78.5 ; Unspecified episodic mood disorder F39 ; Depression F32.9 and CAD (coronary artery disease) I25.[address] 13069- 2560 Jun, [facility] [id number] [place] [address] 71744- 1883 Jun, [place] [id number] [place] [address] 94862- 5260 Jun, Diabetes E11.9 ; Diabetic neuropathy E11.40 ; Degenerative disc disease, lumbar M51.36 ; HTN (hypertension) I10 ; Gastritis K29.70 ; Chronic pain G89.29 ; Insomnia G47.00 and Unspecified episodic mood disorder F39 [place] [id number] [place] [address] 48558- 2775 May, Diabetic neuropathy E11.40 ; Degenerative disc disease, lumbar M51.36 ; HTN (hypertension) I10 ; Gastritis K29.70 ; Hyperlipidemia E78.5 ; Chronic pain G89.29 ; Insomnia G47.00 ; Unspecified episodic mood disorder F39 ; Diabetes E11.9 ; CAD (coronary artery disease) I25.10 and H/O Gram positive sepsis Z86.19 [facility] [id number] [place] [address] 86130- 5802 May, [facility] [id number] [place] [address] 51216- 7009 May, [facility] [address] [place] [address]- 0241 May, [facility] [id number] [place] [address] 94411- 1662 May, [facility] [id number] [place] [address] 58267- 4008 May, UTI (urinary tract infection) N39.0 ; Diabetes E11.9 ; Diabetic neuropathy E11.40 ; Hyperlipidemia E78.5 and Chronic pain G89.29 [facility] [id number] [place] [address] 88911- 2226 May, Insomnia, unspecified G47.00 and Chronic pain G89.29 [facility] [id number] [place] [address] 08217- 1978 May, [facility] [id number] [place] [address] 90616- 1425 May, [facility] [id number] [place] [address] 48269- 2803 May, [facility] [id number] [place] [address] 45090- 6565 Apr, Insomnia, unspecified G47.00 ; Chronic pain G89.29 and Unspecified episodic mood disorder F39 [facility] [id number] [place] [address] 86083- 9610 Apr, Unspecified episodic mood disorder F39 [facility] [id number] [place] [address] 16896- 8284 Apr, Major depression F32.9 [facility] [id number] [place] [address] 28288- 3596 Apr, [facility] [id number] [place] [address] 10141- 5746 Apr, Diabetes E11.9 ; Diabetic neuropathy E11.40 ; Degenerative disc disease, lumbar M51.36 ; HTN (hypertension) I10 ; Gastritis K29.70 ; Hyperlipidemia E78.5 ; Chronic pain G89.29 and Insomnia G47.00 [facility] [id number] [place] [address] 84849- 1153 Mar, [facility] [address] 56161- 4128 Mar, [facility] [address] 98521- 8704 Mar, [facility] [address] 09159- 4564 Mar, Diabetes mellitus 250.00 ; Diabetic neuropathy 250.60 ; CAD (coronary artery disease) 414.00 ; Degenerative disc disease, lumbar 722.52 ; Gastritis 535.50 and Insomnia 780.52 [facility] [address] 37550- 9418 Mar, Diabetes mellitus 250.00 ; Degenerative disc disease, lumbar 722.52 ; Essential hypertension 401.9 ; Gastritis 535.50 and Chronic pain 338.29 [facility] [address] 48316- 4455 Feb, [facility] [address] 81215- 4648 Feb, [facility] [id number] [place] [address] 88902- 7413 Jan, [facility] [address] 61390- 0204 Jan, Diabetes mellitus 250.00 ; Diabetic neuropathy 250.60 ; Degenerative disc disease, lumbar 722.52 ; CAD (coronary artery disease) 414.00 ; Essential hypertension 401.9 ; Gastritis 535.50 ; Hyperlipidemia 272.4 and Distal end of ulna fracture, closed 813.43 [facility] [id number] [place] [address] 40569- 6788 Dec, Wrist pain 719.43 and Diabetes mellitus 250.00 [facility] [address] 92988- 9272 26 May, 2010 [facility] [address] [id number] [place] [address]- 2545 10 Dec, 2009 [facility] [place] [facility] [address] [id number] [place] [address]- 0320 13 Nov, 2009 [facility] [place] [facility] [address] [id number] [place] [address]- 5897 16 Oct, 2009 [facility] [place] [facility] [address] [id number] [place] [address]- 0897 17 Sep, 2009 [facility] [address] [id number] [place] [address]- 2452 Sep, [facility] [place] [facility] [address] [id number] [place] [address]- 6357 23 Jun, 2009 [facility] [place] [facility] [address] [id number] [place] [address]- 0348 Jun, [facility] [place] [facility] [address] [id number] [address]- 7053 14 Jun, 2009 [facility] [place] [facility] [address] [id number] [place] [address] Jun, [facility] [place] [facility] [address] [facility] [id number], [place] [address] Jun, [facility] [place] [facility] [address] [id number][place] [address] 08 Jun, 2009 [facility] [place] [facility] [address] [id number], [place] [address] Jun, [facility] [place] [facility] [address] [id number] [place] [address] May, [facility] [place] [facility] [address] [id number], [place] [address] May, [facility] [place] [facility] [address] [id number], [place] [address] 17 May, 2009 [facility] [place] [facility] [address] [facility] [id number][place] [address] May, [facility] [address] [id number], [place] [address] Apr, [facility] [address] [facility] [id number][place] [address] Apr, [facility] [facility] [address] [id number] [id number] Apr, [facility] [address] [id number] [address] Mar, [facility] [address] [id number] [address] Dec, IMMUNIZATIONS No Known Immunizations SOCIAL HISTORY Never Assessed REASON FOR VISIT Transition of Care, previously saw Millie Arciniega, [facility] for her medications PLAN OF CARE Activity Details Follow Up 3 Months with Corrina for DM f/u Reason: VITAL SIGNS Height 61 in 2017-07-01 Weight 133.0 lbs 2017-07-01 Temperature 97.5 degrees Fahrenheit 2017-07-01 Heart Rate 86 bpm 2017-07-01 Respiratory Rate 18 2017-07-01 Oximetry 98 % 2017-07-01 BMI 25.13 kg/m2 2017-07-01 Blood pressure systolic 118 mmHg 2017-07-01 Blood pressure diastolic 68 mmHg 2017-07-01 MEDICATIONS Medication Instructions Dosage Frequency Start Date End Date Duration Status Aspir-81 81 MG Orally Once a day 1 tablet 24h Active Accu-Chek Softclix Lancets - subcutaneously 4 times a day use to check blood sugar 6h Feb, Active Crestor 40 mg Orally Once a day 1 tablet 24h Active Metoclopramide HCl 10 mg Orally every 6 hours 1 tab 6h 90 days Active Accu-Chek Deepika Plus w/Device subcutaneously 4 times a day check sugars 6h Feb, Active Plavix 75 MG TAKE 1 TABLET EVERY DAY 28 Active Hydrocodone-Acetaminophen 10-325 MG Orally 3 times a day 1 tablet as needed 8h May, 28 days Active Lisinopril-Hydrochlorothiazide 20-25 MG Orally Once a day 1 tablet 24h Dec, Active NovoLog Flexpen 100 UNIT/ML Subcutaneous 3 times a day with meals inject 40 units Active Accu-Chek Deepika Plus - subcutaneously 4 times a day to check glucose 6h Feb, Active Levemir FlexTouch 100 UNIT/ML Subcutaneous 55 units bid inject Active Lamictal 100 mg Orally Once a day 1 tablet 24h Feb, 30 day(s) Active Prazosin HCl 2 MG Orally at bedtime 1 capsule Feb, 30 day(s) Active Pen Bly 31G X 6 MM as directed 6h Dec, Active HydrOXYzine HCl 50 mg Orally at bedtime as needed for sleep 1 table Feb, 30 days Active Gabapentin 300 MG TAKE 1 CAPSULE THREE TIMES DAILY 90 Active RESULTS No Results PROCEDURES Procedure Date Ordered Result Body Site MEASURE BLOOD OXYGEN LEVEL Jul 01, 2017 GLYCATED HEMOGLOBIN TEST Jul 01, 2017 [facility] Jul 01, 2017 VENIPUNCT, ROUTINE* Jul 01, 2017 INSTRUCTIONS MEDICATIONS ADMINISTERED No Known Medications [...]
--- OUTSIDE RECORDS SUMMARY | 2018-01-18 11:03 | XMS REPORT ---
Author Author JALEN PEREZ [facility] Address [address] [place] [address] Care Team Providers Care Management Consultant Name Role Phone JALEN PEREZ Unavailable PROBLEMS Type Condition ICD9-CM Code AUK15-XX Code Onset Dates Condition Status SNOMED Code Problem Post-traumatic stress disorder F43.10 Active 89544900 Problem Obsessive-compulsive disorder, unspecified type F42.9 Active 742846600 Problem Type 2 diabetes mellitus with hyperglycemia E11.65 Active 698669914125791 Problem Falls frequently R29.6 Active 740667930 Problem History of pulmonary embolism Z86.711 Active 736912657 Problem 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.4 Active 727127810 Problem Major depressive disorder, recurrent episode, moderate F33.1 Active 312960395 Problem 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.29 Active 24933022 Problem Type 2 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 E11.49 Active 21793268 Problem Chronic pain G89.29 Active 04366544 Problem Degenerative disc disease, lumbar M51.36 Active 95681175 Problem Insomnia G47.00 Active 713361841 Problem HTN (hypertension) I10 Active 36285052 Problem Hyperlipidemia E78.5 Active 45991073 Problem CAD (coronary artery disease) I25.10 Active 28060273 ALLERGIES No Information ENCOUNTERS Encounter Location Date Diagnosis [facility] [address] [facility] [id number] [address] Jan, [facility] [address] [address] Jan, [facility] [address] [address] Dec, CAD (coronary artery disease) I25.10 and Atypical chest pain R07.89 [facility] [id number] [address] 90[address] Dec, [facility] [id number] [place] [address] 02488- 9861 Dec, Diabetes E11.9 ; Type 2 diabetes mellitus with hyperglycemia E11.65 and Intractable vomiting with nausea, unspecified vomiting type R11.2 [facility] [id number] [place] [address] 24629- 6739 Dec, Chronic pain G89.29 [facility] [id number] [place] [address] 15663- 4882 November, [facility] [address] [address]- 0558 November, Diabetes E11.9 ; CAD (coronary artery disease) I25.10 ; Atypical chest pain R07.89 ; Type 2 diabetes mellitus with hyperglycemia E11.65 ; 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.29 ; group home 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.4 and Chronic pain G89.29 [facility] [id number] [place] [address] 65755- 7631 Oct, [facility] [id number] [place] [address] 78948- 3090 Oct, Chronic pain G89.29 [facility] [id number] [place] [address] 43968- 1984 Sep, Diabetes E11.9 [facility] [id number] [place] [address] 59203- 9656 Sep, Chronic pain G89.29 [facility] [id number] [place] [address] 49244- 3698 Sep, [facility] [id number] [place] [address] 20652- 8702 Sep, Falls frequently R29.6 ; group home 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.4 and Type 2 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 E11.49 [facility] [id number] [place] [address] 80995- 6862 Sep, [facility] [address] [address] 6078 Sep, Diabetes E11.9 [facility] [address] [address] 2462 Aug, [facility] [id number] [place] [address] 35739- 0698 Aug, Chronic pain G89.29 [facility] [id number] [place] [address] 76179- 0954 Aug, [facility] [id number] [place] [address] 69272- 6405 Aug, Chronic pain G89.29 [facility] [address] [address] 9[address] Jul, [facility] [id number] [place] [address] 25580- 8611 Jul, Diabetes E11.9 and 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.29 [facility] [id number] [place] [address] 10071- 8112 Jul, 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.29 [facility] [address] [address] 2956 Jul, [facility] [address] [address] 0507 Jul, Chronic pain G89.29 [facility] [id number] [address] 4972 Jun, Diabetes E11.9 [facility] [id number] [address] 4828 Jun, Chronic pain G89.29 [facility] [id number] [address] 4510 13 Dec, 2017 Diabetes E11.9 ; Atypical chest pain R07.89 ; group home 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.4 ; 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.29 ; Type 2 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 E11.49 ; History of pulmonary embolism Z86.711 and History of CVA (cerebrovascular accident) Z86.73 [facility] [facility] [id number] [place] [address] 78904- 2712 27 May, 2017 [facility] [id number] [place] [address] 20544- 1685 May, Chronic pain G89.29 [facility] [id number] [place] [address] 51623- 5549 Apr, Chronic pain G89.29 [facility] [id number] [place] [address] 58967- 6754 Apr, [facility] [id number] [place] [address] 65936- 8778 Mar, Chronic pain G89.29 [facility] [id number] [place] [address] 21971- 2455 18 Mar, 2017 Diabetes E11.9 [facility] [id number] [place] [address] 51468- 3562 07 Mar, 2017 [facility] [id number] [place] [address] 85053- 8445 Mar, Degenerative disc disease, lumbar M51.36 [facility] [id number] [place] [address] 32215- 1582 Feb, Diabetes E11.9 [facility] [id number] [place] [address] 08651- 0684 Feb, Diabetes E11.9 [facility] [id number] [place] [address] 10230- 7427 16 Feb, 2017 Diabetes E11.9 ; HTN (hypertension) I10 ; Diabetic neuropathy E11.40 and Leg cramps R25.2 [place] [address] [place] [address]- 5268 15 Feb, 2017 Sprain of calcaneofibular ligament of right ankle, subsequent encounter S93.411D ; Major depressive disorder, recurrent episode, moderate F33.1 ; Diabetes E11.9 ; Hyperlipidemia E78.5 ; Post-traumatic stress disorder F43.10 and Other irritable bowel syndrome K58.8 [facility] [id number] [place] [address] 66944- 6403 14 Feb, 2017 Major depressive disorder, recurrent episode, moderate F33.1 ; Post-traumatic stress disorder F43.10 and Obsessive-compulsive disorder , unspecified type F42.9 [place] [facility] [address] 15934- 9595 Feb, [place] [facility] [address] 12678- 3900 Feb, Post-traumatic stress disorder F43.10 and Major depressive disorder, recurrent, moderate F33.1 [facility] [id number] [place] [address] 21434- 2592 Feb, Diabetes E11.9 [facility] [facility] [address] 22333- 8567 Feb, Degenerative disc disease, lumbar M51.36 [facility] [id number] [place] [address] 39008- 1289 Feb, Post-traumatic stress disorder F43.10 and Major depressive disorder, recurrent, moderate F33.1 [facility] [facility] [id number] [place] [address] 45112- 7411 Feb, [facility] [id number] [place] [address] 51735- 4194 Feb, Diabetes E11.9 [facility] [id number] [place] [address] 97230- 0282 Jan, Diabetes E11.9 [facility] [id number] [place] [address] 02602- 5913 Jan, Post-traumatic stress disorder F43.10 and Major depressive disorder, recurrent, moderate F33.1 [facility] [address] [facility] [id number] [address] 2416 Jan, Diabetes E11.9 [facility] [address] [facility] [id number] [address] 2546 Jan, Diabetes E11.9 [facility] [id number] [address] 2546 Jan, [facility] [id number] [address]- 8646 Jan, [facility] [id number] [place] [address] 97786- 9317 Jan, Post-traumatic stress disorder F43.10 and Major depressive disorder, recurrent, moderate F33.1 [facility] [address] [address]- 2356 Jan, [facility] [id number] [address]- 8968 Jan, Major depressive disorder, recurrent episode, moderate F33.1 ; Post-traumatic stress disorder F43.10 and Obsessive-compulsive disorder , unspecified type F42.9 [facility] [address] [address]- 7364 Jan, [facility] [address], [place] [address]- 3446 Jan, Diabetes E11.9 [facility] [id number], [place] [address] 2546 Jan, [facility] [id number] [place] [address] 02234- 3196 Jan, Sprain of calcaneofibular ligament of right ankle, subsequent encounter S93.411D [facility] [id number] [address]- 6846 Jan, Post-traumatic stress disorder F43.10 and Major depressive disorder, recurrent, moderate F33.1 [place] [address], [place] [address]- 1902 07 Jan, 2017 Diabetes E11.9 [place] [id number] [place] [address] 99152- 2791 16 Dec, 2016 Major depressive disorder, recurrent episode, moderate F33.1 ; Post-traumatic stress disorder F43.10 and Obsessive-compulsive disorder , unspecified type F42.9 [facility] [facility] [id number] [place] [address] 04671- 8975 15 Dec, 2016 [place] [facility] [id number] [place] [address] 44535- 6651 14 Dec, 2016 Sprain of calcaneofibular ligament of right ankle, subsequent encounter S93.411D [facility] [id number] [place] [address] 09135- 8971 13 Dec, 2016 Post-traumatic stress disorder F43.10 and Major depressive disorder, recurrent, moderate F33.1 [place] [address] [place] [address] 43889- 0134 13 Dec, 2016 Sprain of calcaneofibular ligament of right ankle, subsequent encounter S93.411D [place] [address] [place] [address] 53665- 4760 12 Dec, 2016 Hyperlipidemia E78.5 [facility] [facility] [id number] [place] [address] 18350- 1222 08 Dec, 2016 [place] [id number] [place] [address] 03068- 9808 07 Dec, 2016 Diabetes E11.9 ; Diabetic neuropathy E11.40 ; Degenerative disc disease, lumbar M51.36 ; Hyperlipidemia E78.5 ; Insomnia G47.00 ; CAD ( coronary artery disease) I25.10 ; Major depressive disorder, recurrent, moderate F33.1 ; Post-traumatic stress disorder F43.10 and Other irritable bowel syndrome K58.8 [place] [id number] [place] [address] 53005- 7693 November, Diabetic neuropathy E11.40 and Hyperlipidemia E78.5 [place] [id number] [place] [address] 96875- 8536 November, Degenerative disc disease, lumbar M51.36 [facility] [id number] [place] [address] 89762- 1596 Oct, [facility] [address] 40138- 5808 Oct, Degenerative disc disease, lumbar M51.36 [place] [id number] [place] [address] 82068- 0147 Sep, Degenerative disc disease, lumbar M51.36 and HTN ( hypertension) I10 [place] [id number] [place] [address] 01246- 1538 Sep, Diabetic neuropathy E11.40 ; HTN (hypertension) I10 ; Degenerative disc disease, lumbar M51.36 ; Hyperlipidemia E78.5 ; Insomnia G47.00 ; CAD (coronary artery disease) I25.10 and Diabetes E11.9 [place] [id number] [place] [address] 92711- 8433 Aug, [place] [id number] [place] [address] 26988- 7880 Aug, Type 2 diabetes mellitus with hyperglycemia E11.65 [facility] [facility] [id number] [place] [address] 44785- 9784 Aug, [facility] [facility] [id number] [place] [address] 00631- 2726 Jul, [place] [id number] [place] [address] 51240- 1667 Jul, [facility] [id number] [place] [address] 12726- 3101 Jun, [facility] [id number] [place] [address] 38308- 1776 Jun, [place] [address] [address]- 6522 Jun, [place] [id number] [place] 9271 Jun, [place] [id number] [place] [address] 73454- 3824 May, Major depressive disorder, recurrent episode, moderate F33.1 and Post-traumatic stress disorder F43.10 [place] [id number] [place] [address] 01992- 8414 May, Major depressive disorder, recurrent episode, moderate F33.1 and Post-traumatic stress disorder F43.10 [place] [id number] [place] [address] 29965- 3668 May, Diabetes E11.9 ; Diabetic neuropathy E11.40 ; HTN ( hypertension) I10 ; Gastritis K29.70 ; Hyperlipidemia E78.5 ; Insomnia G47.00 and Major depressive disorder, recurrent, moderate F33.1 [place] [id number] [place] [address] 28563- 9392 May, Major depressive disorder, recurrent episode, moderate F33.1 [place] [id number] [place] [address] 31981- 5258 Apr, [place] [id number] [place] [address] 04505- 7442 Apr, Major depressive disorder, recurrent episode, moderate F33.1 and Post-traumatic stress disorder F43.10 [place] [address] [place] [address] 72269- 8938 Apr, Diabetes E11.9 ; Diabetic neuropathy E11.40 ; Degenerative disc disease, lumbar M51.36 ; HTN (hypertension) I10 ; Hyperlipidemia E78.5 ; Chronic pain G89.29 ; CAD (coronary artery disease) I25.10 and Major depressive disorder, recurrent, moderate F33.1 [place] [id number] [place] [address] 70884- 3010 Apr, Major depressive disorder, recurrent episode, moderate F33.1 and Post-traumatic stress disorder F43.10 [place] [id number] [place] [address] 20916- 7550 Apr, Major depressive disorder, recurrent episode, moderate F33.1 and Post-traumatic stress disorder F43.10 [place] [id number] [place] [address] 16817- 5400 Apr, Major depressive disorder, recurrent episode, moderate F33.1 and Unspecified episodic mood disorder F39 [place] [id number] [place] [address] 60806- 5945 Apr, Chronic pain G89.29 ; Diabetic neuropathy E11.40 ; HTN ( hypertension) I10 ; Insomnia G47.00 ; CAD (coronary artery disease) I25.10 ; Hyperlipidemia E78.5 ; Degenerative disc disease, lumbar M51.36 ; Diabetes E11.9 and Gastritis K29.70 [place] [id number] [place] [address] 43331- 6789 Sep, [place] [id number] [place] [address] 33385- 1856 Aug, [place] [id number] [place] [address] 34198- 5059 Jul, Major depressive disorder, recurrent episode, moderate F33.1 [place] [id number] [place] [address] 08744- 5939 Jul, Unspecified episodic mood disorder F39 [facility] [id number] [place] [address] 74673- 1757 Jul, [facility] [id number] [place] [address] 39695- 8542 Jul, [facility] [id number] [place] [address] 08390- 2778 Jul, [facility] [id number] [place] [address] 80253- 3328 Jul, Type 2 diabetes mellitus with hyperglycemia E11.65 ; Diabetic neuropathy E11.40 ; Degenerative disc disease, lumbar M51.36 ; HTN ( hypertension) I10 ; Gastritis K29.70 ; Hyperlipidemia E78.5 and CAD (coronary artery disease) I25.10 [place] [id number] [place] [address] 23651- 9958 Jul, Severe episode of recurrent major depressive disorder, without psychotic features F33.2 [place] [id number] [place] [address] 24978- 6621 Jul, [place] [address] 37041- 5084 Jun, [place] [address] 47558- 0114 Jun, Diabetes E11.9 ; Diabetic neuropathy E11.40 ; Degenerative disc disease, lumbar M51.36 ; HTN (hypertension) I10 ; Gastritis K29.70 ; Hyperlipidemia E78.5 ; Unspecified episodic mood disorder F39 ; Depression F32.9 and CAD (coronary artery disease) I25.10 [place] [id number] [place] [address] 98024- 3749 Jun, [place] [id number] [place] [address] 23779- 9282 Jun, [place] [id number] [place] [address] 92454- 0939 Jun, Diabetes E11.9 ; Diabetic neuropathy E11.40 ; Degenerative disc disease, lumbar M51.36 ; HTN (hypertension) I10 ; Gastritis K29.70 ; Chronic pain G89.29 ; Insomnia G47.00 and Unspecified episodic mood disorder F39 [place] [id number] [place] [address] 68123- 7449 May, Diabetic neuropathy E11.40 ; Degenerative disc disease, lumbar M51.36 ; HTN (hypertension) I10 ; Gastritis K29.70 ; Hyperlipidemia E78.5 ; Chronic pain G89.29 ; Insomnia G47.00 ; Unspecified episodic mood disorder F39 ; Diabetes E11.9 ; CAD (coronary artery disease) I25.10 and H/O Gram positive sepsis Z86.19 [facility] [id number] [place] [address] 72278- 3797 May, [facility] [id number] [place] [address] 95230- 9250 May, [facility] [id number] [place] [address] 71187- 3718 May, [facility] [id number] [place] [address] 79289- 7576 May, [facility] [id number] [place] [address] 45005- 7159 May, UTI (urinary tract infection) N39.0 ; Diabetes E11.9 ; Diabetic neuropathy E11.40 ; Hyperlipidemia E78.5 and Chronic pain G89.29 [place] [id number] [place] [address] 32497- 6734 May, Insomnia, unspecified G47.00 and Chronic pain G89.29 [place] [id number] [place] [address] 51461- 1636 May, [facility] [id number] [place] [address] 87858- 2486 May, [facility] [id number] [place] [address] 27700- 5960 May, [facility] [id number] [place] [address] 49759- 0142 Apr, Insomnia, unspecified G47.00 ; Chronic pain G89.29 and Unspecified episodic mood disorder F39 [facility] [id number] [place] [address] 65674- 5152 Apr, Unspecified episodic mood disorder F39 [facility] [address] [place] [address] 03030- 6712 Apr, Major depression F32.9 [facility] [id number] [place] [address] 70754- 7357 Apr, [place] [address] 65571- 7861 Apr, Diabetes E11.9 ; Diabetic neuropathy E11.40 ; Degenerative disc disease, lumbar M51.36 ; HTN (hypertension) I10 ; Gastritis K29.70 ; Hyperlipidemia E78.5 ; Chronic pain G89.29 and Insomnia G47.00 [place] [address] 48129- 7242 Mar, [place] [facility] [address] 01770- 6765 Mar, [place] [address] 29924- 9752 Mar, [place] [address] 21676- 4917 Mar, Diabetes mellitus 250.00 ; Diabetic neuropathy 250.60 ; CAD (coronary artery disease) 414.00 ; Degenerative disc disease, lumbar 722.52 ; Gastritis 535.50 and [address] 71660- 9442 Mar, Diabetes mellitus 250.00 ; Degenerative disc disease, lumbar 722.52 ; Essential hypertension 401.9 ; Gastritis 535.50 and Chronic pain 338.29 [place] [id number] [place] [address] 97914- 1918 Feb, [place] [id number] [place] [address] 76621- 9362 Feb, [address] 26055- 3120 Jan, [place] [address] 16626- 9407 Jan, Diabetes mellitus 250.00 ; Diabetic neuropathy 250.60 ; Degenerative disc disease, lumbar 722.52 ; CAD (coronary artery disease) 414.00 ; Essential hypertension 401.9 ; Gastritis 535.50 ; Hyperlipidemia 272.4 and Distal end of ulna fracture, closed 813.43 [facility] [id number] [place] [address] 09965- 6662 29 Dec, 2014 Wrist pain 719.43 and Diabetes mellitus 250.00 [facility] [id number] [place] [address] 18532- 3126 May, [facility] [id number] [place] [address] 24328- 1956 Dec, [facility] [id number] [place] [address] 08745- 5218 November, [facility] [id number] [place] [address] 13790- 7382 Oct, [facility] [id number] [place] [address] 72476- 7536 Sep, [facility] [id number] [place] [address] 11917- 8007 Sep, [facility] [id number] [place] [address] 91392- 8691 Jun, [facility] [address] [address]- 0280 Jun, [facility] [id number] [place] [address] 30810- 2317 14 Jun, 2009 [facility] [address] [address]- 2543 Jun, [facility] [id number] [place] [address] 76115- 9288 Jun, [facility] [address] [address]- 2547 Jun, [facility] [id number] [place] [address] 837381- 5806 Jun, [facility] [address] [facility] [id number] [address] May, [facility] [address] [facility] [id number] [address] May, [facility] [address] [facility] [id number] [address] May, [facility] [id number] [address] May, [facility] [address] [facility] [id number] [address] Apr, [facility] [id number] [address] Apr, [facility] [id number] [address] Apr, [facility] [id number] [address] Mar, [facility] [address] [id number], [place] [address] Dec, IMMUNIZATIONS No Known Immunizations SOCIAL HISTORY Never Assessed REASON FOR VISIT lab PLAN OF CARE VITAL SIGNS MEDICATIONS Unknown [...]
--- OUTSIDE RECORDS SUMMARY | 2018-01-18 11:03 | XMS REPORT ---
Author Author PATRICK Peralta Organization [facility] Address [address] [place] [address] Care Team Providers Care [employer]er Name Role Phone PATRICK Peralta Unavailable PROBLEMS Type Condition ICD9-CM Code AWI72-EX Code Onset Dates Condition Status SNOMED Code Problem Type 2 diabetes mellitus with hyperglycemia E11.65 Active 209610911269230 Problem Obsessive-compulsive disorder, unspecified type F42.9 Active 812888882 Problem Major depressive disorder, recurrent episode, moderate F33.1 Active 850428864 Problem Falls frequently R29.6 Active 297885521 Problem Diabetes E11.9 Active 516144934 Problem Type 2 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 E11.49 Active 82941142 Problem History of pulmonary embolism Z86.711 Active 083701063 Problem 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 890796066 Problem 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.29 Active 86739710 Problem Hyperlipidemia E78.5 Active 49675220 Problem Insomnia G47.00 Active 922933698 Problem HTN (hypertension) I10 Active 97886028 Problem Chronic pain G89.29 Active 16182086 Problem CAD (coronary artery disease) I25.10 Active 72328334 Problem Degenerative disc disease, lumbar M51.36 Active 47794552 Problem Post-traumatic stress disorder F43.10 Active [id number] ALLERGIES No Information ENCOUNTERS Encounter Location Date Diagnosis [facility] [address] [id number] [address] November, [facility] [address] [place] [address] 24014- 2259 Oct, Chronic pain G89.29 [facility] [address] [id number] [address] Sep, Diabetes E11.9 [facility] [address], [place] [address] Sep, Chronic pain G89.29 [facility] [address], [place] [address] Sep, [facility] [address], [place] [address] 49[address] Sep, Falls frequently R29.6 ; shelter 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.4 and Type 2 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 E11.49 [facility] [address], [place] [address] Sep, [facility] [id number] [place] [address] 74653- 9356 Sep, Diabetes E11.9 [facility] [address], [place] [address] Aug, [facility] [address] [place] [address] 12476- 4674 Aug, Chronic pain G89.29 [facility] [address] [place] [address] 71558- 0875 Aug, [facility] [address] [address] 4769 Aug, Chronic pain G89.29 [facility] [address], [place] [address] Jul, [facility] [address], [place] [address] Jul, Diabetes E11.9 and 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.29 [facility] [address], [place] [address] 28[address] Jul, 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.29 [facility] [address], [place] [address] 46[address] Jul, [facility] [address], [place] [address] 1772 Jul, Chronic pain G89.29 [facility] [id number] [place] [address] 57734- 9970 Jun, Diabetes E11.9 [facility] [id number] [place] [address] 53128- 9487 Jun, Chronic pain G89.29 [facility] [id number] [place] [address] 35750- 1919 Jun, Diabetes E11.9 ; Atypical chest pain R07.89 ; 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 ; 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.29 ; Type 2 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 E11.49 ; History of pulmonary embolism Z86.711 and History of CVA (cerebrovascular accident) Z86.73 [place] [id number] [place] [address] 68434- 1372 May, [facility] [id number] [place] [address] 12704- 2526 May, Chronic pain G89.29 [facility] [id number] [place] [address] 52769- 2461 30 Apr, 2017 Chronic pain G89.29 [facility] [address] [id number], [place] [address] 0512 Apr, [facility] [id number] [place] [address] 17786- 5103 29 Mar, 2017 Chronic pain G89.29 [facility] [id number] [place] [address] 37368- 0444 18 Mar, 2017 Diabetes E11.9 [facility] [address] [place] [address] 79486- 1078 07 Mar, 2017 [facility] [address] [place] [address] 05664- 6314 Mar, Degenerative disc disease, lumbar M51.36 [place] [id number] [place] [address] 37875- 6438 28 Feb, 2017 Diabetes E11.9 [place] [id number] [place] [address] 26302- 7417 23 Feb, 2017 Diabetes E11.9 [place] [id number] [place] [address] 91338- 6163 16 Feb, 2017 Diabetes E11.9 ; HTN (hypertension) I10 ; Diabetic neuropathy E11.40 and Leg cramps R25.2 [place] [id number] [place] [address] 16564- 2102 15 Feb, 2017 Sprain of calcaneofibular ligament of right ankle, subsequent encounter S93.411D ; Major depressive disorder, recurrent episode, moderate F33.1 ; Diabetes E11.9 ; Hyperlipidemia E78.5 ; Post-traumatic stress disorder F43.10 and Other irritable bowel syndrome K58.8 [place] [id number] [place] [address] 92106- 8488 14 Feb, 2017 Major depressive disorder, recurrent episode, moderate F33.1 ; Post-traumatic stress disorder F43.10 and Obsessive-compulsive disorder , unspecified type F42.9 [place] [id number] [place] [address] 44969- 4940 Feb, [place] [id number] [place] [address] 38341- 1721 Feb, Post-traumatic stress disorder F43.10 and Major depressive disorder, recurrent, moderate F33.1 [place] [id number] [place] [address] 45497- 4288 Feb, Diabetes E11.9 [place] [id number] [place] [address] 83363- 4706 Feb, Degenerative disc disease, lumbar M51.36 [place] [id number] [place] [address] 24776- 0011 Feb, Post-traumatic stress disorder F43.10 and Major depressive disorder, recurrent, moderate F33.1 [facility] [address] [id number], [place] [address] 8706 Feb, [facility] [id number] [place] [address] 42264 2546 Feb, Diabetes E11.9 [facility] [address] [id number], [place] [address] 2546 Jan, Diabetes E11.9 [facility] [id number] [place] [address] 94616- 4216 Jan, Post-traumatic stress disorder F43.10 and Major depressive disorder, recurrent, moderate F33.1 [facility] [id number] [place] [address] 92802- 1316 Jan, Diabetes E11.9 [facility] [address], [place] [address]- 2146 Jan, Diabetes E11.9 [facility] [id number], [place] [address]- 8506 Jan, [facility] [id number] [place] [address] 64684- 0294 Jan, [facility] [address] [place] [address] 59250- 4368 Jan, Post-traumatic stress disorder F43.10 and Major depressive disorder, recurrent, moderate F33.1 [facility] [address], [place] [address]- 4063 Jan, [facility] [id number], [place] [address]- 2546 Jan, Major depressive disorder, recurrent episode, moderate F33.1 ; Post-traumatic stress disorder F43.10 and Obsessive-compulsive disorder , unspecified type F42.9 [facility] [id number] [address] 5687 Jan, [facility] [id number] [place] [address] 54186- 5899 13 Jan, 2017 Diabetes E11.9 [facility] [address] [place] [address] 89481- 9986 13 Jan, 2017 [facility] [id number] [place] [address] 24162- 1211 13 Jan, 2017 Sprain of calcaneofibular ligament of right ankle, subsequent encounter S93.411D [facility] [id number] [place] [address] 30554- 3240 Jan, Post-traumatic stress disorder F43.10 and Major depressive disorder, recurrent, moderate F33.1 [place] [id number] [place] [address] 51669- 7555 07 Jan, 2017 Diabetes E11.9 [place] [id number] [place] [address] 63065- 0239 16 Dec, 2016 Major depressive disorder, recurrent episode, moderate F33.1 ; Post-traumatic stress disorder F43.10 and Obsessive-compulsive disorder , unspecified type F42.9 [facility] [address] [place] [address] 28842- 7739 15 Dec, 2016 [place] [id number] [place] [address] 03644- 1639 14 Dec, 2016 Sprain of calcaneofibular ligament of right ankle, subsequent encounter S93.411D [place] [address] [place] [address] 26054- 4608 13 Dec, 2016 Post-traumatic stress disorder F43.10 and Major depressive disorder, recurrent, moderate F33.1 [facility] [address] [place] [address] 13497- 8807 13 Dec, 2016 Sprain of calcaneofibular ligament of right ankle, subsequent encounter S93.411D [place] [id number] [place] [address] 31812- 5698 12 Dec, 2016 Hyperlipidemia E78.5 [place] [id number] [place] [address] 56162- 7683 Dec, [place] [id number] [place] [address] 58029- 4339 Dec, Diabetes E11.9 ; Diabetic neuropathy E11.40 ; Degenerative disc disease, lumbar M51.36 ; Hyperlipidemia E78.5 ; Insomnia G47.00 ; CAD ( coronary artery disease) I25.10 ; Major depressive disorder, recurrent, moderate F33.1 ; Post-traumatic stress disorder F43.10 and Other irritable bowel syndrome K58.8 [place] [id number] [place] [address] 05810- 6912 November, Diabetic neuropathy E11.40 and Hyperlipidemia E78.5 [place] [address] 67353- 0489 November, Degenerative disc disease, lumbar M51.36 [place] [address] 29955- 1548 Oct, [place] [address] 13363- 1902 Oct, Degenerative disc disease, lumbar M51.36 [place] [id number] [place] [address] 27067- 2899 Sep, Degenerative disc disease, lumbar M51.36 and HTN ( hypertension) I10 [place] [id number] [place] [address] 42862- 3653 Sep, Diabetic neuropathy E11.40 ; HTN (hypertension) I10 ; Degenerative disc disease, lumbar M51.36 ; Hyperlipidemia E78.5 ; Insomnia G47.00 ; CAD (coronary artery disease) I25.10 and Diabetes E11.9 [place] [id number] [place] [address] 31845- 0851 Aug, [place] [id number] [place] [address] 49189- 0104 Aug, Type 2 diabetes mellitus with hyperglycemia E11.65 [place] [address] [place] [address]- 6929 Aug, [facility] [address], [place] [address]- 2329 Jul, [facility] [address] [place] [address] 67650- 6755 Jul, [facility] [address] [place] [address] 695735- 3187 Jun, [facility] [id number] [place] [address] 77061- 9509 Jun, [facility] [id number] [place] [address] 597400- 6531 Jun, [facility] [id number] [place] [address] 738800- 6621 Jun, [facility] [id number] [place] [address] 095452- 1151 May, Major depressive disorder, recurrent episode, moderate F33.1 and Post-traumatic stress disorder F43.10 [facility] [address] [place] [address] 62183- 4128 May, Major depressive disorder, recurrent episode, moderate F33.1 and Post-traumatic stress disorder F43.10 [facility] [address] [place] [address] 04698- 4179 May, Diabetes E11.9 ; Diabetic neuropathy E11.40 ; HTN ( hypertension) I10 ; Gastritis K29.70 ; Hyperlipidemia E78.5 ; Insomnia G47.00 and Major depressive disorder, recurrent, moderate F33.1 [facility] [address] [place] [address] 41440- 3407 May, Major depressive disorder, recurrent episode, moderate F33.1 [facility] [address], [place] [address]- 5070 Apr, [facility] [id number] [place] [address] 11070- 9090 Apr, Major depressive disorder, recurrent episode, moderate F33.1 and Post-traumatic stress disorder F43.10 [place] [id number] [place] [address] 26987- 1187 Apr, Diabetes E11.9 ; Diabetic neuropathy E11.40 ; Degenerative disc disease, lumbar M51.36 ; HTN (hypertension) I10 ; Hyperlipidemia E78.5 ; Chronic pain G89.29 ; CAD (coronary artery disease) I25.10 and Major depressive disorder, recurrent, moderate F33.1 [place] [id number] [place] [address] 66591- 3874 Apr, Major depressive disorder, recurrent episode, moderate F33.1 and Post-traumatic stress disorder F43.10 [place] [id number] [place] [address] 67763- 8252 Apr, Major depressive disorder, recurrent episode, moderate F33.1 and Post-traumatic stress disorder F43.10 [place] [id number] [place] [address] 20419- 0444 Apr, Major depressive disorder, recurrent episode, moderate F33.1 and Unspecified episodic mood disorder F39 [place] [id number] [place] [address] 32827- 7378 Apr, Chronic pain G89.29 ; Diabetic neuropathy E11.40 ; HTN ( hypertension) I10 ; Insomnia G47.00 ; CAD (coronary artery disease) I25.10 ; Hyperlipidemia E78.5 ; Degenerative disc disease, lumbar M51.36 ; Diabetes E11.9 and Gastritis K29.70 [place] [address] [place] [address] 82476- 4091 Sep, [address] 88626- 9826 Aug, [place] [id number] [place] [address] 08064- 5334 Jul, Major depressive disorder, recurrent episode, moderate F33.[address] [place] [address]- 9909 Jul, Unspecified episodic mood disorder F39 [facility] [id number] [place] [address] 40388- 3361 Jul, [facility] [id number] [place] [address] 26441- 4893 Jul, [facility] [address] 29716- 7748 Jul, [facility] [address] 36042- 5883 Jul, Type 2 diabetes mellitus with hyperglycemia E11.65 ; Diabetic neuropathy E11.40 ; Degenerative disc disease, lumbar M51.36 ; HTN ( hypertension) I10 ; Gastritis K29.70 ; Hyperlipidemia E78.5 and CAD (coronary artery disease) I25.10 [place] [address] 66650- 7976 Jul, Severe episode of recurrent major depressive disorder, without psychotic features F33.2 [place] [address] 68801- 0265 Jul, [place] [address] 26189- 0512 Jun, [place] [id number] [place] [address] 49550- 4970 Jun, Diabetes E11.9 ; Diabetic neuropathy E11.40 ; Degenerative disc disease, lumbar M51.36 ; HTN (hypertension) I10 ; Gastritis K29.70 ; Hyperlipidemia E78.5 ; Unspecified episodic mood disorder F39 ; Depression F32.9 and CAD (coronary artery disease) I25.10 [place] [address] 36438- 9395 Jun, [place] [id number] [place] [address] 93678- 8871 Jun, [facility] [address] 37636- 4376 Jun, Diabetes E11.9 ; Diabetic neuropathy E11.40 ; Degenerative disc disease, lumbar M51.36 ; HTN (hypertension) I10 ; Gastritis K29.70 ; Chronic pain G89.29 ; Insomnia G47.00 and Unspecified episodic mood disorder F39 [facility] [id number] [place] [address] 65978- 8621 May, Diabetic neuropathy E11.40 ; Degenerative disc disease, lumbar M51.36 ; HTN (hypertension) I10 ; Gastritis K29.70 ; Hyperlipidemia E78.5 ; Chronic pain G89.29 ; Insomnia G47.00 ; Unspecified episodic mood disorder F39 ; Diabetes E11.9 ; CAD (coronary artery disease) I25.10 and H/O Gram positive sepsis Z86.19 [place] [address] 47744- 3464 May, [place] [address] 79041- 8014 May, [place] [address] 45701- 7608 May, [place] [address] 72071- 7617 May, [place] [id number] [place] [address] 66289- 8976 May, UTI (urinary tract infection) N39.0 ; Diabetes E11.9 ; Diabetic neuropathy E11.40 ; Hyperlipidemia E78.5 and Chronic pain G89.29 [place] [address] 56799- 0973 May, Insomnia, unspecified G47.00 and Chronic pain G89.29 [place] [address] 53008- 8286 May, [place] [id number] [place] [address] 59069- 2229 May, [facility] [address] 95538- 5920 May, [place] [id number] [place] [address] 93443- 2497 Apr, Insomnia, unspecified G47.00 ; Chronic pain G89.29 and Unspecified episodic mood disorder F39 [place] [id number] [place] [address] 21927- 8298 Apr, Unspecified episodic mood disorder F39 [place] [address] 16620- 0981 Apr, Major depression F32.9 [place] [address] 72620- 1258 Apr, [place] [id number] [place] [address] 64723- 9635 Apr, Diabetes E11.9 ; Diabetic neuropathy E11.40 ; Degenerative disc disease, lumbar M51.36 ; HTN (hypertension) I10 ; Gastritis K29.70 ; Hyperlipidemia E78.5 ; Chronic pain G89.29 and Insomnia G47.00 [place] [id number] [place] [address] 96089- 2374 Mar, [place] [id number] [place] [address] 00164- 5667 Mar, [place] [id number] [place] [address] 61784- 7637 Mar, [place] [id number] [place] [address] 72554- 9720 Mar, Diabetes mellitus 250.00 ; Diabetic neuropathy 250.60 ; CAD (coronary artery disease) 414.00 ; Degenerative disc disease, lumbar 722.52 ; Gastritis 535.50 and Insomnia 780.52 [place] [id number] [place] [address] 39000- 3559 Mar, Diabetes mellitus 250.00 ; Degenerative disc disease, lumbar 722.52 ; Essential hypertension 401.9 ; Gastritis 535.50 and Chronic pain 338.29 [place] [address], [place] [address]- 5958 Feb, [facility] [id number] [place] [address] 467495- 7915 Feb, [facility] [id number] [place] [address] 57193- 9791 Jan, [facility] [id number] [place] [address] 412038- 4728 Jan, Diabetes mellitus 250.00 ; Diabetic neuropathy 250.60 ; Degenerative disc disease, lumbar 722.52 ; CAD (coronary artery disease) 414.00 ; Essential hypertension 401.9 ; Gastritis 535.50 ; Hyperlipidemia 272.4 and Distal end of ulna fracture, closed 813.43 [facility] [id number] [place] [address] 18963- 9987 Dec, Wrist pain 719.43 and Diabetes mellitus 250.00 [facility] [id number] [place] [address] 52233- 8576 May, [facility] [id number] [place] [address] 55909- 0944 Dec, [facility] [id number] [place] [address] 28898- 7552 November, [facility] [address], [place] [address]- 9713 Oct, [facility] [address], [place] [address]- 1029 Sep, [facility] [address] [address]- 4413 Sep, [facility] [address] [place] [address] 90138- 4126 Jun, [facility] [address], [place] [address]- 4673 Jun, [facility] [address], [place] [address]- 9260 14 Jun, 2009 [facility] [address] [place] [address] 99927- 8126 Jun, [facility] [address], [place] [address]- 4792 Jun, [facility] [address] [place] [address] 53957- 5355 Jun, [facility] [id number] [place] [address] 35315- 3058 Jun, [facility] [id number] [place] [address] 99537- 0860 May, [facility] [id number] [place] [address] 39979- 4287 May, [facility] [id number] [place] [address] 80701- 5487 May, [facility] [id number] [place] [phone] May, [facility] [id number] [place] [address] [phone] Apr, [facility] [id number] [address] Apr, [facility] [id number] [place] [phone] Apr, [facility] [id number] [address] Mar, [facility] [id number] [address] Dec, IMMUNIZATIONS No Known Immunizations SOCIAL HISTORY Never Assessed REASON FOR VISIT Refill request PLAN OF CARE VITAL SIGNS MEDICATIONS Medication Instructions Dosage Frequency Start Date End Date Duration Status NovoLog Flexpen 100 UNIT/ML Subcutaneous 3 times a day with meals inject 40 units Active Pen Slater 31G X 6 MM as directed 6h Dec, Active Levemir FlexTouch 100 UNIT/ML Subcutaneous 55 units bid inject Active RESULTS No Results PROCEDURES No Known [...]
--- OUTSIDE RECORDS SUMMARY | 2018-01-18 11:04 | XMS REPORT ---
Author Author JALEN PEREZ [facility] Address [address] [place] [address] Care Team Providers Care Systems Engineering Manager Name Role Phone JALEN PEREZ Unavailable PROBLEMS Type Condition ICD9-CM Code [id number] Code Onset Dates Condition Status SNOMED Code Problem Post-traumatic stress disorder F43.10 Active 17754072 Problem Obsessive-compulsive disorder, unspecified type F42.9 Active 144668642 Problem Type 2 diabetes mellitus with hyperglycemia E11.65 Active 882807808666113 Problem Falls frequently R29.6 Active 032418121 Problem History of pulmonary embolism Z86.711 Active 727943103 Problem 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.4 Active 368578809 Problem Major depressive disorder, recurrent episode, moderate F33.1 Active 975271108 Problem 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.29 Active 35299084 Problem Type 2 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 E11.49 Active 48173142 Problem Chronic pain G89.29 Active 70014824 Problem Degenerative disc disease, lumbar M51.36 Active 92272765 Problem Insomnia G47.00 Active 152807026 Problem HTN (hypertension) I10 Active 76974616 Problem Hyperlipidemia E78.5 Active 39022548 Problem CAD (coronary artery disease) I25.10 Active 51628334 ALLERGIES No Information ENCOUNTERS Encounter Location Date Diagnosis [facility] [address] [facility] [id number] [address] Jan, [facility] [address], [place] [address] Jan, [facility] [address], [place] [address]67 Dec, CAD (coronary artery disease) I25.10 and Atypical chest pain R07.89 [facility] [id number] [address] 9666 Dec, [facility] [id number] [place] [address] 58085- 1186 Dec, Diabetes E11.9 ; Type 2 diabetes mellitus with hyperglycemia E11.65 and Intractable vomiting with nausea, unspecified vomiting type R11.2 [facility] [id number] [place] [address] 41660- 5867 Dec, Chronic pain G89.29 [facility] [id number] [place] [address] 79966- 3026 November, [facility] [address] [address]98- 9908 November, Diabetes E11.9 ; CAD (coronary artery disease) I25.10 ; Atypical chest pain R07.89 ; Type 2 diabetes mellitus with hyperglycemia E11.65 ; 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.29 ; senior living 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.4 and Chronic pain G89.29 [facility] [id number] [place] [address] 89468- 7562 Oct, [facility] [id number] [place] [address] 76963- 7991 Oct, Chronic pain G89.29 [facility] [id number] [place] [address] 89839- 8220 Sep, Diabetes E11.9 [facility] [id number] [place] [address] 89271- 8542 Sep, Chronic pain G89.29 [facility] [id number] [place] [address] 60991- 6082 Sep, [facility] [id number] [place] [address] 76999- 1946 Sep, Falls frequently R29.6 ; senior living 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.4 and Type 2 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 E11.49 [facility] [id number] [place] [address] 52807- 5943 Sep, [facility] [address], [place] [address] 1370 Sep, Diabetes E11.9 [facility] [address], [place] [address] 1770 Aug, [facility] [id number] [place] [address] 36864- 7514 Aug, Chronic pain G89.29 [facility] [id number] [place] [address] 32342- 3791 Aug, [facility] [id number] [place] [address] 96660- 5083 Aug, Chronic pain G89.29 [facility] [address], [place] [address] 9001 Jul, [facility] [id number] [place] [address] 12340- 9316 Jul, Diabetes E11.9 and 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.29 [facility] [id number] [place] [address] 00335- 0326 Jul, 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.29 [facility] [address], [place] [address] 8609 Jul, [facility] [address], [place] [address] 0489 Jul, Chronic pain G89.29 [facility] [id number], [place] [address] 9489 Jun, Diabetes E11.9 [facility] [id number], [place] [address] 2079 Jun, Chronic pain G89.29 [facility] [id number], [place] [address] 1599 13 Dec, 2017 Diabetes E11.9 ; Atypical chest pain R07.89 ; senior living 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.4 ; 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.29 ; Type 2 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 E11.49 ; History of pulmonary embolism Z86.711 and History of CVA (cerebrovascular accident) Z86.73 [facility] [id number] [place] [address] 33995- 6553 27 May, 2017 [facility] [id number] [place] [address] 94992- 9819 May, Chronic pain G89.29 [facility] [id number] [place] [address] 94310- 2773 Apr, Chronic pain G89.29 [facility] [id number] [place] [address] 58069- 2825 Apr, [facility] [id number] [place] [address] 68144- 8789 Mar, Chronic pain G89.29 [facility] [id number] [place] [address] 22876- 6157 18 Mar, 2017 Diabetes E11.9 [facility] [id number] [place] [address] 20148- 9812 07 Mar, 2017 [facility] [id number] [place] [address] 55168- 1984 Mar, Degenerative disc disease, lumbar M51.36 [facility] [id number] [place] [address] 81475- 4353 Feb, Diabetes E11.9 [facility] [id number] [place] [address] 81260- 2978 Feb, Diabetes E11.9 [facility] [id number] [place] [address] 25604- 2903 16 Feb, 2017 Diabetes E11.9 ; HTN (hypertension) I10 ; Diabetic neuropathy E11.40 and Leg cramps R25.2 [facility] [address] [place] [address]- 3261 15 Feb, 2017 Sprain of calcaneofibular ligament of right ankle, subsequent encounter S93.411D ; Major depressive disorder, recurrent episode, moderate F33.1 ; Diabetes E11.9 ; Hyperlipidemia E78.5 ; Post-traumatic stress disorder F43.10 and Other irritable bowel syndrome K58.8 [facility] [id number] [place] [address] 42203- 3797 14 Feb, 2017 Major depressive disorder, recurrent episode, moderate F33.1 ; Post-traumatic stress disorder F43.10 and Obsessive-compulsive disorder , unspecified type F42.9 [facility] [address] 32498- 6345 Feb, [facility] [address] 74502- 2971 Feb, Post-traumatic stress disorder F43.10 and Major depressive disorder, recurrent, moderate F33.1 [facility] [id number] [place] [address] 19986- 4363 Feb, Diabetes E11.9 [facility] [address] 98471- 4070 Feb, Degenerative disc disease, lumbar M51.36 [facility] [id number] [place] [address] 01427- 4952 Feb, Post-traumatic stress disorder F43.10 and Major depressive disorder, recurrent, moderate F33.1 [facility] [id number] [place] [address] 40581- 7994 Feb, [facility] [id number] [place] [address] 93298- 9019 Feb, Diabetes E11.9 [facility] [id number] [place] [address] 47992- 8669 Jan, Diabetes E11.9 [facility] [id number] [place] [address] 38819- 7025 Jan, Post-traumatic stress disorder F43.10 and Major depressive disorder, recurrent, moderate F33.1 [facility] [address] [facility] [id number], [place] [address] 9566 Jan, Diabetes E11.9 [facility] [address] [facility] [id number] [address] 2546 Jan, Diabetes E11.9 [facility] [id number], [place] [address] 2546 Jan, [facility] [id number], [place] [address]- 3146 Jan, [facility] [id number] [place] [address] 43784- 2562 Jan, Post-traumatic stress disorder F43.10 and Major depressive disorder, recurrent, moderate F33.1 [facility] [address], [place] [address]- 9506 Jan, [facility] [id number], [place] [address]- 7667 Jan, Major depressive disorder, recurrent episode, moderate F33.1 ; Post-traumatic stress disorder F43.10 and Obsessive-compulsive disorder , unspecified type F42.9 [facility] [address], [place] [address]- 2374 Jan, [facility] [address], [place] [address]- 8942 Jan, Diabetes E11.9 [facility] [id number], [place] [address] 2546 Jan, [facility] [id number] [place] [address] 40925- 5066 Jan, Sprain of calcaneofibular ligament of right ankle, subsequent encounter S93.411D [facility] [id number], [place] [address]- 7326 Jan, Post-traumatic stress disorder F43.10 and Major depressive disorder, recurrent, moderate F33.1 [place] [facility] [address], [place] [address]- 2932 07 Jan, 2017 Diabetes E11.9 [facility] [id number] [place] [address] 85264- 7194 16 Dec, 2016 Major depressive disorder, recurrent episode, moderate F33.1 ; Post-traumatic stress disorder F43.10 and Obsessive-compulsive disorder , unspecified type F42.9 [facility] [id number] [place] [address] 22962- 8376 15 Dec, 2016 [facility] [id number] [place] [address] 25071- 5310 14 Dec, 2016 Sprain of calcaneofibular ligament of right ankle, subsequent encounter S93.411D [facility] [id number] [place] [address] 47456- 0866 13 Dec, 2016 Post-traumatic stress disorder F43.10 and Major depressive disorder, recurrent, moderate F33.1 [facility] [id number] [place] [address] 54899- 0786 13 Dec, 2016 Sprain of calcaneofibular ligament of right ankle, subsequent encounter S93.411D [facility] [id number] [place] [address] 81491- 2710 12 Dec, 2016 Hyperlipidemia E78.5 [facility] [id number] [place] [address] 29975- 9710 08 Dec, 2016 [place] [id number] [place] [address] 34625- 4128 07 Dec, 2016 Diabetes E11.9 ; Diabetic neuropathy E11.40 ; Degenerative disc disease, lumbar M51.36 ; Hyperlipidemia E78.5 ; Insomnia G47.00 ; CAD ( coronary artery disease) I25.10 ; Major depressive disorder, recurrent, moderate F33.1 ; Post-traumatic stress disorder F43.10 and Other irritable bowel syndrome K58.8 [place] [facility] [id number] [place] [address] 82965- 0685 November, Diabetic neuropathy E11.40 and Hyperlipidemia E78.5 [facility] [id number] [place] [address] 55500- 5503 November, Degenerative disc disease, lumbar M51.36 [facility] [id number] [place] [address] 65682- 2659 Oct, [facility] [address] 25883- 5069 Oct, Degenerative disc disease, lumbar M51.36 [facility] [id number] [place] [address] 22364- 9643 Sep, Degenerative disc disease, lumbar M51.36 and HTN ( hypertension) I10 [facility] [id number] [place] [address] 42471- 3403 Sep, Diabetic neuropathy E11.40 ; HTN (hypertension) I10 ; Degenerative disc disease, lumbar M51.36 ; Hyperlipidemia E78.5 ; Insomnia G47.00 ; CAD (coronary artery disease) I25.10 and Diabetes E11.9 [facility] [id number] [place] [address] 62584- 6120 Aug, [facility] [id number] [place] [address] 82310- 1353 Aug, Type 2 diabetes mellitus with hyperglycemia E11.65 [facility] [id number] [place] [address] 82351- 5654 Aug, [facility] [id number] [place] [address] 19294- 5981 Jul, [facility] [id number] [place] [address] 95339- 8497 Jul, [facility] [id number] [place] [address] 50317- 8621 Jun, [facility] [id number] [place] [address] 63577- 3013 Jun, [facility] [address], [place] [address]- 2711 Jun, [facility] [id number] [place], [place] [address]- 3495 Jun, [facility] [id number] [place] [address] 14907- 5866 May, Major depressive disorder, recurrent episode, moderate F33.1 and Post-traumatic stress disorder F43.10 [facility] [id number] [place] [address] 84061- 7709 May, Major depressive disorder, recurrent episode, moderate F33.1 and Post-traumatic stress disorder F43.10 [facility] [id number] [place] [address] 17765- 5677 May, Diabetes E11.9 ; Diabetic neuropathy E11.40 ; HTN ( hypertension) I10 ; Gastritis K29.70 ; Hyperlipidemia E78.5 ; Insomnia G47.00 and Major depressive disorder, recurrent, moderate F33.1 [facility] [id number] [place] [address] 60486- 6154 May, Major depressive disorder, recurrent episode, moderate F33.1 [facility] [id number] [place] [address] 75452- 4205 Apr, [facility] [id number] [place] [address] 91496- 9273 Apr, Major depressive disorder, recurrent episode, moderate F33.1 and Post-traumatic stress disorder F43.10 [facility] [address] [place] [address] 61670- 5700 Apr, Diabetes E11.9 ; Diabetic neuropathy E11.40 ; Degenerative disc disease, lumbar M51.36 ; HTN (hypertension) I10 ; Hyperlipidemia E78.5 ; Chronic pain G89.29 ; CAD (coronary artery disease) I25.10 and Major depressive disorder, recurrent, moderate F33.1 [facility] [id number] [place] [address] 44059- 2827 Apr, Major depressive disorder, recurrent episode, moderate F33.1 and Post-traumatic stress disorder F43.10 [facility] [id number] [place] [address] 90943- 9230 Apr, Major depressive disorder, recurrent episode, moderate F33.1 and Post-traumatic stress disorder F43.10 [facility] [id number] [place] [address] 12537- 5931 Apr, Major depressive disorder, recurrent episode, moderate F33.1 and Unspecified episodic mood disorder F39 [facility] [id number] [place] [address] 52106- 7572 Apr, Chronic pain G89.29 ; Diabetic neuropathy E11.40 ; HTN ( hypertension) I10 ; Insomnia G47.00 ; CAD (coronary artery disease) I25.10 ; Hyperlipidemia E78.5 ; Degenerative disc disease, lumbar M51.36 ; Diabetes E11.9 and Gastritis K29.70 [facility] [id number] [place] [address] 94014- 0153 Sep, [facility] [id number] [place] [address] 95050- 1992 Aug, [facility] [id number] [place] [address] 13841- 6579 Jul, Major depressive disorder, recurrent episode, moderate F33.1 [facility] [id number] [place] [address] 00636- 7167 Jul, Unspecified episodic mood disorder F39 [facility] [id number] [place] [address] 05552- 2282 Jul, [facility] [id number] [place] [address] 71141- 7656 Jul, [facility] [id number] [place] [address] 43570- 7785 Jul, [facility] [id number] [place] [address] 15943- 1597 Jul, Type 2 diabetes mellitus with hyperglycemia E11.65 ; Diabetic neuropathy E11.40 ; Degenerative disc disease, lumbar M51.36 ; HTN ( hypertension) I10 ; Gastritis K29.70 ; Hyperlipidemia E78.5 and CAD (coronary artery disease) I25.10 [facility] [id number] [place] [address] 58820- 9782 Jul, Severe episode of recurrent major depressive disorder, without psychotic features F33.2 [facility] [id number] [place] [address] 27063- 4724 Jul, [facility] [facility] [address] 46833- 0652 Jun, [place] [facility] [address] 26951- 6733 Jun, Diabetes E11.9 ; Diabetic neuropathy E11.40 ; Degenerative disc disease, lumbar M51.36 ; HTN (hypertension) I10 ; Gastritis K29.70 ; Hyperlipidemia E78.5 ; Unspecified episodic mood disorder F39 ; Depression F32.9 and CAD (coronary artery disease) I25.10 [facility] [id number] [place] [address] 22932- 3751 Jun, [facility] [id number] [place] [address] 42156- 2268 Jun, [place] [facility] [id number] [place] [address] 00236- 6224 Jun, Diabetes E11.9 ; Diabetic neuropathy E11.40 ; Degenerative disc disease, lumbar M51.36 ; HTN (hypertension) I10 ; Gastritis K29.70 ; Chronic pain G89.29 ; Insomnia G47.00 and Unspecified episodic mood disorder F39 [facility] [id number] [place] [address] 45582- 3937 May, Diabetic neuropathy E11.40 ; Degenerative disc disease, lumbar M51.36 ; HTN (hypertension) I10 ; Gastritis K29.70 ; Hyperlipidemia E78.5 ; Chronic pain G89.29 ; Insomnia G47.00 ; Unspecified episodic mood disorder F39 ; Diabetes E11.9 ; CAD (coronary artery disease) I25.10 and H/O Gram positive sepsis Z86.19 [facility] [id number] [place] [address] 68658- 6431 May, [facility] [id number] [place] [address] 59399- 2488 May, [facility] [id number] [place] [address] 20149- 9549 May, [facility] [id number] [place] [address] 44638- 9964 May, [facility] [id number] [place] [address] 76066- 5820 May, UTI (urinary tract infection) N39.0 ; Diabetes E11.9 ; Diabetic neuropathy E11.40 ; Hyperlipidemia E78.5 and Chronic pain G89.29 [facility] [id number] [place] [address] 50714- 4280 May, Insomnia, unspecified G47.00 and Chronic pain G89.29 [facility] [id number] [place] [address] 80000- 1164 May, [facility] [id number] [place] [address] 48016- 4233 May, [facility] [id number] [place] [address] 99168- 9985 May, [facility] [id number] [place] [address] 21502- 0259 Apr, Insomnia, unspecified G47.00 ; Chronic pain G89.29 and Unspecified episodic mood disorder F39 [facility] [id number] [place] [address] 97904- 9804 Apr, Unspecified episodic mood disorder F39 [facility] [id number] [place] [address] 91728- 4019 Apr, Major depression F32.9 [facility] [id number] [place] [address] 62825- 9237 Apr, [place] [facility] [address] 30242- 9547 Apr, Diabetes E11.9 ; Diabetic neuropathy E11.40 ; Degenerative disc disease, lumbar M51.36 ; HTN (hypertension) I10 ; Gastritis K29.70 ; Hyperlipidemia E78.5 ; Chronic pain G89.29 and Insomnia G47.00 [place] [address] 76913- 6733 Mar, [place] [facility] [address] 17590- 6349 Mar, [place] [address] 51624- 3585 Mar, [place] [facility] [address] 48684- 0835 Mar, Diabetes mellitus 250.00 ; Diabetic neuropathy 250.60 ; CAD (coronary artery disease) 414.00 ; Degenerative disc disease, lumbar 722.52 ; Gastritis 535.50 and Insomnia [address] 20810- 4373 Mar, Diabetes mellitus 250.00 ; Degenerative disc disease, lumbar 722.52 ; Essential hypertension 401.9 ; Gastritis 535.50 and Chronic pain 338.29 [facility] [id number] [place] [address] 32732- 5841 Feb, [facility] [id number] [place] [address] 88595- 8369 Feb, [address] 36633- 6044 Jan, [place] [facility] [address] 06040- 1820 Jan, Diabetes mellitus 250.00 ; Diabetic neuropathy 250.60 ; Degenerative disc disease, lumbar 722.52 ; CAD (coronary artery disease) 414.00 ; Essential hypertension 401.9 ; Gastritis 535.50 ; Hyperlipidemia 272.4 and Distal end of ulna fracture, closed 813.43 [facility] [id number] [place] [address] 13957- 1734 29 Dec, 2014 Wrist pain 719.43 and Diabetes mellitus 250.00 [facility] [id number] [place] [address] 41058- 6166 May, [facility] [id number] [place] [address] 49651- 6917 Dec, [facility] [id number] [place] [address] 29650- 6829 November, [facility] [id number] [place] [address] 37268- 2758 Oct, [facility] [id number] [place] [address] [phone] Sep, [facility] [id number] [place] [address] [id number] [id number] Sep, [facility] [id number] [place] [address] [id number] [id number] Jun, [facility] [id number] [phone] Jun, [facility] [id number] [place] [id number]- [id number] 14 Jun, 2009 [facility] [id number] [address] Jun, [facility] [address] [id number] [place] [id number] Jun, [facility] [id number] [address] Jun, [facility] [id number] [place] [id number] Jun, [facility] [address] [id number] [address] May, [facility] [address] [facility] [id number], [place] [address] May, [facility] [address] [facility] [id number], [place] [address] May, [facility] [address] [facility] [id number], [place] [address] May, [facility] [address] [facility] [id number], [place] [address] Apr, [facility] [id number] [address] Apr, [facility] [id number] [address] Apr, [facility] [id number] [address] Mar, [facility] [address] [id number], [place] [address] Dec, IMMUNIZATIONS No Known Immunizations SOCIAL HISTORY Never Assessed REASON FOR VISIT Lab (walk-in) PLAN OF CARE VITAL SIGNS MEDICATIONS Unknown Medications RESULTS No Results PROCEDURES Procedure Date Ordered Result Body Site LAB NOT BILLED BY [facility] Aug 18, 2017 VENRADHA, ROUTINE* Aug 18, 2017 INSTRUCTIONS MEDICATIONS ADMINISTERED No Known Medications [...]
--- OUTSIDE RECORDS SUMMARY | 2018-01-18 11:05 | XMS REPORT ---
Author Author JALEN PEREZ Organization [facility] Address [address] [place] [address] Care Team Providers Care Gravity Meter Observer Name Role Phone JALEN PEREZ Unavailable PROBLEMS Type Condition ICD9-CM Code FUQ12-DW Code Onset Dates Condition Status SNOMED Code Problem Post-traumatic stress disorder F43.10 Active 53169467 Problem Obsessive-compulsive disorder, unspecified type F42.9 Active 636605965 Problem Type 2 diabetes mellitus with hyperglycemia E11.65 Active [id number] Problem Falls frequently R29.6 Active 838875379 Problem History of pulmonary embolism Z86.711 Active 384512799 Problem 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 369847923 Problem Major depressive disorder, recurrent episode, moderate F33.1 Active 065664167 Problem 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.29 Active 60329921 Problem Type 2 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 E11.49 Active 79622046 Problem Chronic pain G89.29 Active 15774191 Problem Degenerative disc disease, lumbar M51.36 Active 51935152 Problem Insomnia G47.00 Active 618556057 Problem HTN (hypertension) I10 Active 18796497 Problem Hyperlipidemia E78.5 Active 58798311 Problem CAD (coronary artery disease) I25.10 Active 59222359 ALLERGIES No Information ENCOUNTERS Encounter Location Date Diagnosis [facility] [address] [facility] [id number] [address] Jan, [facility] [address], [place] [address] 1765 Jan, [facility] [address], [place] [address] Dec, [facility] [id number], [place] [address] Dec, Diabetes E11.9 ; Type 2 diabetes mellitus with hyperglycemia E11.65 and Intractable vomiting with nausea, unspecified vomiting type R11.2 [facility] [id number] [place] [address] 95557- 3237 Dec, Chronic pain G89.29 [facility] [id number] [place] [address] 83747- 5364 November, [facility] [id number] [place] [address] 74772- 4015 November, Diabetes E11.9 ; CAD (coronary artery disease) I25.10 ; Atypical chest pain R07.89 ; Type 2 diabetes mellitus with hyperglycemia E11.65 ; 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.29 ; 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 and Chronic pain G89.29 [facility] [id number] [place] [address] 96046- 3048 Oct, [facility] [id number] [place] [address] 34034- 3174 Oct, Chronic pain G89.29 [facility] [id number] [place] [address] 56940- 5031 Sep, Diabetes E11.9 [facility] [id number] [place] [address] 14165- 7565 Sep, Chronic pain G89.29 [facility] [id number] [place] [address] 98077- 9112 Sep, [facility] [id number] [place] [address] 78036- 6988 Sep, Falls frequently R29.6 ; [facility] 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.4 and Type 2 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 E11.49 [facility] [id number], [place] [address] 7260 Sep, [facility] [id number] [place] [address] 93752- 9829 Sep, Diabetes E11.9 [facility] [address], [place] [address] 8395 Aug, [facility] [address], [place] [address]- 6797 Aug, Chronic pain G89.29 [facility] [address], [place] [address]- 2305 Aug, [facility] [address] [place] [address] 21597- 4985 Aug, Chronic pain G89.29 [facility] [address], [place] [address]- 5926 Jul, [facility] [address] [place] [address] 19814- 0127 Jul, Diabetes E11.9 and 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.29 [facility] [address], [place] [address] 1944 Jul, 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.29 [facility] [address], [place] [address]- 6026 Jul, [facility] [address], [place] [address]- 4359 Jul, Chronic pain G89.29 [facility] [address], [place] [address]- 1026 Jun, Diabetes E11.9 [facility] [id number], [place] [address]- 6988 Jun, Chronic pain G89.29 [facility] [address], [place] [address]- 8167 Jun, Diabetes E11.9 ; Atypical chest pain R07.89 ; 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 ; 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.29 ; Type 2 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 E11.49 ; History of pulmonary embolism Z86.711 and History of CVA (cerebrovascular accident) Z86.73 [facility] [id number] [place] [address] 25775- 1542 May, [facility] [id number] [place] [address] 36878- 4821 May, Chronic pain G89.29 [facility] [address] [place] [address] 67259- 1923 Apr, Chronic pain G89.29 [facility] [address] [place] [address] 88744- 8141 Apr, [facility] [address] [place] [address] 69250- 3328 Mar, Chronic pain G89.29 [facility] [address] [place] [address] 81829- 8038 18 Mar, 2017 Diabetes E11.9 [facility] [id number] [place] [address] 63894- 8000 07 Mar, 2017 [facility] [address] [place] [address] 33399- 1713 Mar, Degenerative disc disease, lumbar M51.36 [facility] [address] [place] [address] 71786- 2618 Feb, Diabetes E11.9 [facility] [address] [place] [address] 44358- 7963 Feb, Diabetes E11.9 [facility] [address] [place] [address] 00402- 7973 16 Feb, 2017 Diabetes E11.9 ; HTN (hypertension) I10 ; Diabetic neuropathy E11.40 and Leg cramps R25.2 [place] [facility] [address] [place] [address] 06066- 9129 15 Feb, 2017 Sprain of calcaneofibular ligament of right ankle, subsequent encounter S93.411D ; Major depressive disorder, recurrent episode, moderate F33.1 ; Diabetes E11.9 ; Hyperlipidemia E78.5 ; Post-traumatic stress disorder F43.10 and Other irritable bowel syndrome K58.8 [facility] [id number] [place] [address] [address] Feb, Major depressive disorder, recurrent episode, moderate F33.1 ; Post-traumatic stress disorder F43.10 and Obsessive-compulsive disorder , unspecified type F42.9 [facility] [address] [place] [address] 42568- 6124 Feb, [facility] [address] [place] [address] 02295- 2665 Feb, Post-traumatic stress disorder F43.10 and Major depressive disorder, recurrent, moderate F33.1 [facility] [address] [place] [address] 79945- 6106 Feb, Diabetes E11.9 [facility] [address] [place] [address] 10506- 7814 Feb, Degenerative disc disease, lumbar M51.36 [facility] [address] [place] [address] 20835- 1251 Feb, Post-traumatic stress disorder F43.10 and Major depressive disorder, recurrent, moderate F33.1 [facility] [address] [place] [address] 78110- 1606 Feb, [facility] [address] [place] [address] 06724- 0923 Feb, Diabetes E11.9 [facility] [address] [place] [address] 75290- 6483 Jan, Diabetes E11.9 [facility] [address] [place] [address] 77498- 5249 Jan, Post-traumatic stress disorder F43.10 and Major depressive disorder, recurrent, moderate F33.1 [facility] [address] [place] [address] 52865- 4719 Jan, Diabetes E11.9 [facility] [id number], [place] [address]- 5267 Jan, Diabetes E11.9 [facility] [address] [facility] [id number] [address]6 Jan, [facility] [address], [place] [address]- 5594 Jan, [facility] [id number] [place] [address] 53770- 7354 Jan, Post-traumatic stress disorder F43.10 and Major depressive disorder, recurrent, moderate F33.1 [facility] [address] [place] [address] 95241- 0616 Jan, [facility] [address] [place] [address] 85554- 6466 Jan, Major depressive disorder, recurrent episode, moderate F33.1 ; Post-traumatic stress disorder F43.10 and Obsessive-compulsive disorder , unspecified type F42.9 [facility] [address], [place] [address]- 3927 Jan, [facility] [address] [place] [address] 01496- 1178 Jan, Diabetes E11.9 [facility] [address], [place] [address]- 8817 Jan, [facility] [address] [place] [address] 71648- 7272 Jan, Sprain of calcaneofibular ligament of right ankle, subsequent encounter S93.411D [facility] [address] [place] [address] 72244- 3716 Jan, Post-traumatic stress disorder F43.10 and Major depressive disorder, recurrent, moderate F33.1 [facility] [address], [place] [address]- 5046 Jan, Diabetes E11.9 [facility] [address], [place] [address]- 3244 16 Dec, 2016 Major depressive disorder, recurrent episode, moderate F33.1 ; Post-traumatic stress disorder F43.10 and Obsessive-compulsive disorder , unspecified type F42.9 [place] [address] [place] [address] 13774- 7419 15 Dec, 2016 [facility] [id number] [place] [address] 04810- 6894 14 Dec, 2016 Sprain of calcaneofibular ligament of right ankle, subsequent encounter S93.411D [facility] [address] [place] [address] 60379- 1807 13 Dec, 2016 Post-traumatic stress disorder F43.10 and Major depressive disorder, recurrent, moderate F33.1 [facility] [address] [place] [address] 20299- 2194 13 Dec, 2016 Sprain of calcaneofibular ligament of right ankle, subsequent encounter S93.411D [facility] [address] [place] [address] 01561- 4311 12 Dec, 2016 Hyperlipidemia E78.5 [facility] [address] [place] [address] 53897- 9150 08 Dec, 2016 [facility] [address] [place] [address] 25839- 7891 07 Dec, 2016 Diabetes E11.9 ; Diabetic neuropathy E11.40 ; Degenerative disc disease, lumbar M51.36 ; Hyperlipidemia E78.5 ; Insomnia G47.00 ; CAD ( coronary artery disease) I25.10 ; Major depressive disorder, recurrent, moderate F33.1 ; Post-traumatic stress disorder F43.10 and Other irritable bowel syndrome K58.8 [place] [address] [place] [address] 11951- 9512 November, Diabetic neuropathy E11.40 and Hyperlipidemia E78.5 [facility] [address] [place] [address] 78206- 9467 November, Degenerative disc disease, lumbar M51.36 [facility] [id number], [place] [address]- 1708 Oct, [facility] [address] [place] [address] 104515- 3277 Oct, Degenerative disc disease, lumbar M51.36 [facility] [address] [place] [address] 99630- 7170 Sep, Degenerative disc disease, lumbar M51.36 and HTN ( hypertension) I10 [facility] [address] [place] [address] 86444- 1457 Sep, Diabetic neuropathy E11.40 ; HTN (hypertension) I10 ; Degenerative disc disease, lumbar M51.36 ; Hyperlipidemia E78.5 ; Insomnia G47.00 ; CAD (coronary artery disease) I25.10 and Diabetes E11.9 [facility] [address] [place] [address] 01241- 9566 Aug, [facility] [address] [place] [address] 40748- 5614 Aug, Type 2 diabetes mellitus with hyperglycemia E11.65 [facility] [address] [place] [address] 03668- 3579 Aug, [facility] [address], [place] [address]- 8868 Jul, [facility] [address] [place] [address] 02256- 3348 Jul, [facility] [address] [place] [address] 10315- 8769 Jun, [facility] [address] [place] [address] 21000- 5804 Jun, [facility] [address], [place] [address]- 1724 Jun, [facility] [id number] [place] [address] 63170- 6215 Jun, [facility] [address] [place] [address]- 2826 May, Major depressive disorder, recurrent episode, moderate F33.1 and Post-traumatic stress disorder F43.10 [facility] [address] [place] [address] 20023- 4667 May, Major depressive disorder, recurrent episode, moderate F33.1 and Post-traumatic stress disorder F43.10 [facility] [address] [place] [address] 07152- 6363 May, Diabetes E11.9 ; Diabetic neuropathy E11.40 ; HTN ( hypertension) I10 ; Gastritis K29.70 ; Hyperlipidemia E78.5 ; Insomnia G47.00 and Major depressive disorder, recurrent, moderate F33.1 [place] [address] [place] [address] 54793- 9004 May, Major depressive disorder, recurrent episode, moderate F33.1 [facility] [address] [place] [address] 79860- 0445 Apr, [facility] [id number] [place] [address]- 0702 Apr, Major depressive disorder, recurrent episode, moderate F33.1 and Post-traumatic stress disorder F43.10 [facility] [address] [place] [address] 27915- 2226 Apr, Diabetes E11.9 ; Diabetic neuropathy E11.40 ; Degenerative disc disease, lumbar M51.36 ; HTN (hypertension) I10 ; Hyperlipidemia E78.5 ; Chronic pain G89.29 ; CAD (coronary artery disease) I25.10 and Major depressive disorder, recurrent, moderate F33.1 [place] [address] [place] [address]- 8790 Apr, Major depressive disorder, recurrent episode, moderate F33.1 and Post-traumatic stress disorder F43.10 [facility] [address] [place] [address]- 2546 Apr, Major depressive disorder, recurrent episode, moderate F33.1 and Post-traumatic stress disorder F43.10 [facility] [address] [place] [address] 77781- 7140 Apr, Major depressive disorder, recurrent episode, moderate F33.1 and Unspecified episodic mood disorder F39 [facility] [address] [place] [address] 93891- 4268 Apr, Chronic pain G89.29 ; Diabetic neuropathy E11.40 ; HTN ( hypertension) I10 ; Insomnia G47.00 ; CAD (coronary artery disease) I25.10 ; Hyperlipidemia E78.5 ; Degenerative disc disease, lumbar M51.36 ; Diabetes E11.9 and Gastritis K29.70 [facility] [address] [place] [address] 23999- 8751 Sep, [facility] [address] [place] [address] 69715- 4856 Aug, [facility] [address] [place] [address] 86150- 1551 Jul, Major depressive disorder, recurrent episode, moderate F33.1 [facility] [address] [place] [address] 98786- 9251 Jul, Unspecified episodic mood disorder F39 [facility] [address] [place] [address] 23465- 3259 Jul, [facility] [address] [place] [address] 47957- 3212 Jul, [facility] [address] [place] [address] 01675- 8808 Jul, [facility] [address] [place] [address] 02288- 4657 Jul, Type 2 diabetes mellitus with hyperglycemia E11.65 ; Diabetic neuropathy E11.40 ; Degenerative disc disease, lumbar M51.36 ; HTN ( hypertension) I10 ; Gastritis K29.70 ; Hyperlipidemia E78.5 and CAD (coronary artery disease) I25.10 [facility] [address] [place] [address] 64222- 6737 Jul, Severe episode of recurrent major depressive disorder, without psychotic features F33.2 [facility] [address] [place] [address] 54455- 1906 Jul, [facility] [address] [place] [address] 27269- 3969 Jun, [facility] [address] [place] [address] 20241- 2237 Jun, Diabetes E11.9 ; Diabetic neuropathy E11.40 ; Degenerative disc disease, lumbar M51.36 ; HTN (hypertension) I10 ; Gastritis K29.70 ; Hyperlipidemia E78.5 ; Unspecified episodic mood disorder F39 ; Depression F32.9 and CAD (coronary artery disease) I25.10 [facility] [address] [place] [address] 99499- 1614 Jun, [facility] [address] [place] [address] 70706- 3724 Jun, [facility] [address] [place] [address] 86255- 0676 Jun, Diabetes E11.9 ; Diabetic neuropathy E11.40 ; Degenerative disc disease, lumbar M51.36 ; HTN (hypertension) I10 ; Gastritis K29.70 ; Chronic pain G89.29 ; Insomnia G47.00 and Unspecified episodic mood disorder F39 [place] [address] [place] [address] 55941- 8472 May, Diabetic neuropathy E11.40 ; Degenerative disc disease, lumbar M51.36 ; HTN (hypertension) I10 ; Gastritis K29.70 ; Hyperlipidemia E78.5 ; Chronic pain G89.29 ; Insomnia G47.00 ; Unspecified episodic mood disorder F39 ; Diabetes E11.9 ; CAD (coronary artery disease) I25.10 and H/O Gram positive sepsis Z86.19 [place] [address] [place] [address] 01700- 0575 May, [facility] [address], [place] [address]- 3344 May, [facility] [id number] [place] [address] 59510- 2539 May, [facility] [address] [place] [address] 62225- 1021 May, [facility] [id number] [place] [address] 47807- 8681 May, UTI (urinary tract infection) N39.0 ; Diabetes E11.9 ; Diabetic neuropathy E11.40 ; Hyperlipidemia E78.5 and Chronic pain G89.29 [facility] [address] [place] [address] 34749- 1004 May, Insomnia, unspecified G47.00 and Chronic pain G89.29 [facility] [address] [place] [address] 12074- 3365 May, [facility] [address] [place] [address] 69783- 1994 May, [facility] [id number] [place] [address] 30808- 1385 May, [facility] [address] [place] [address] 16829- 8520 Apr, Insomnia, unspecified G47.00 ; Chronic pain G89.29 and Unspecified episodic mood disorder F39 [facility] [address], [place] [address]- 8579 Apr, Unspecified episodic mood disorder F39 [facility] [id number] [place] [address] 55755- 9403 Apr, Major depression F32.9 [facility] [address], [place] [address]- 1399 Apr, [facility] [id number] [place] [address] 13934- 7594 Apr, Diabetes E11.9 ; Diabetic neuropathy E11.40 ; Degenerative disc disease, lumbar M51.36 ; HTN (hypertension) I10 ; Gastritis K29.70 ; Hyperlipidemia E78.5 ; Chronic pain G89.29 and Insomnia G47.00 [place] [place] [address] 48410- 8744 Mar, [address] 26205- 6702 Mar, [address] 65366- 6357 Mar, [address] 25792- 3020 Mar, Diabetes mellitus 250.00 ; Diabetic neuropathy 250.60 ; CAD (coronary artery disease) 414.00 ; Degenerative disc disease, lumbar 722.52 ; Gastritis 535.50 and Insomnia 780.52 [place] [address] [place] [address] 92299- 5862 Mar, Diabetes mellitus 250.00 ; Degenerative disc disease, lumbar 722.52 ; Essential hypertension 401.9 ; Gastritis 535.50 and Chronic pain 338.29 [place] [address] [place] [address] 36747- 0682 Feb, [place] [address] [place] [address] 19051- 3282 Feb, [address] 47198- 5441 Jan, [address] 81632- 4204 Jan, Diabetes mellitus 250.00 ; Diabetic neuropathy 250.60 ; Degenerative disc disease, lumbar 722.52 ; CAD (coronary artery disease) 414.00 ; Essential hypertension 401.9 ; Gastritis 535.50 ; Hyperlipidemia 272.4 and Distal end of ulna fracture, closed 813.43 [address] [address] [place] [address]- 5310 29 Dec, 2014 Wrist pain 719.43 and Diabetes mellitus 250.00 [facility] [address] [place] [address]- 4556 26 May, 2010 [facility] [address] [facility] [id number], [place] [address]- 2074 10 Dec, 2009 [facility] [address] [facility] [id number] [place] [address], [place] [address]- 6826 November, [facility] [address] [facility] [id number] [place] [address]- 9996 16 Oct, 2009 [facility] [address] [facility] [id number] [place] [address], [place] [address]- 6306 17 Sep, 2009 [facility] [id number], [place] [address]- 1903 Sep, [facility] [id number], [place] [address]- 1544 Jun, [facility] [id number], [place] [address]- 1077 Jun, [facility] [address], [place] [address]- 1463 14 Jun, 2009 [facility] [address], [place] [address]- 6869 Jun, [facility] [address] [facility] [id number], [place] [address]- 6809 Jun, [facility] [address] [facility] [id number], [place] [address]- 1103 08 Jun, 2009 [facility] [address] [facility] [id number]- 0565 Jun, [facility] [address] [facility] [id number] [address] May, [facility] [id number], [place] [address] May, [facility] [address] [id number] [address] May, [facility] [address] [facility] [id number][place] [address] May, [facility] [address] [id number], [place] [address] Apr, [facility] [address] [id number], [place] [address] Apr, [facility] [address] [id number], [place] [address] Apr, [facility] [id number], [place] [address] 2546 Mar, [facility] [id number] [address] Dec, IMMUNIZATIONS No Known Immunizations SOCIAL HISTORY Never Assessed REASON FOR VISIT Controlled Med Refill PLAN OF CARE VITAL SIGNS MEDICATIONS Medication Instructions Dosage Frequency Start Date End Date Duration Status Hydrocodone-Acetaminophen 10-325 MG Orally 3 times a day 1 tablet as needed 8h Jul, Aug, 28 days Active RESULTS No Results PROCEDURES [...]
--- OUTSIDE RECORDS SUMMARY | 2018-01-18 11:05 | XMS REPORT ---
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 Name Role Phone PATRICK Peralta Unavailable PROBLEMS Type Condition ICD9-CM Code [id number] Code Onset Dates Condition Status SNOMED Code Problem Type 2 diabetes mellitus with hyperglycemia E11.65 Active [id number] Problem Obsessive-compulsive disorder, unspecified type F42.9 Active 471349057 Problem Major depressive disorder, recurrent episode, moderate F33.1 Active 950448430 Problem Falls frequently R29.6 Active 614907140 Problem Diabetes E11.9 Active 259885181 Problem Type 2 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 E11.49 Active 17962418 Problem History of pulmonary embolism Z86.711 Active 710052121 Problem 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 Active 882139129 Problem 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.29 Active 61672055 Problem Hyperlipidemia E78.5 Active 69017980 Problem Insomnia G47.00 Active 013518226 Problem HTN (hypertension) I10 Active 22110311 Problem Chronic pain G89.29 Active 50215627 Problem CAD (coronary artery disease) I25.10 Active 76666198 Problem Degenerative disc disease, lumbar M51.36 Active 24404133 Problem Post-traumatic stress disorder F43.10 Active 12319168 ALLERGIES No Information ENCOUNTERS Encounter Location Date Diagnosis [facility] [address] [facility] [id number] [address] November, [facility] [id number] [place] [address] 66485- 6826 Oct, Chronic pain G89.29 [facility] [id number] [address] Sep, Diabetes E11.9 [facility] [address] [address] Sep, Chronic pain G89.29 [facility] [address] [address] 2[address] Sep, [facility] [address] [address] 2017 Sep, Falls frequently R29.6 ; senior living 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.4 and Type 2 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 E11.49 [facility] [address] [address] Sep, [facility] [id number] [place] [address] 71890- 1452 Sep, Diabetes E11.9 [facility] [address] [address] 10[address] Aug, [facility] [address] [place] [address] 16345- 1260 Aug, Chronic pain G89.29 [facility] [address] [place] [address] 41709- 4748 Aug, [facility] [address] [address]- 9270 Aug, Chronic pain G89.29 [facility] [address] [address] 3873 Jul, [facility] [address] [address] 0866 Jul, Diabetes E11.9 and 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.29 [facility] [address] [address] 66[address] Jul, 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.29 [facility] [address] [address] 49[address] Jul, [facility] [address] [address] Jul, Chronic pain G89.29 [facility] [id number] [place] [address] 56244- 7172 Jun, Diabetes E11.9 [facility] [id number] [place] [address] 77138- 8350 Jun, Chronic pain G89.29 [facility] [id number] [place] [address] 44595- 0520 Jun, Diabetes E11.9 ; Atypical chest pain R07.89 ; 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 ; 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.29 ; Type 2 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 E11.49 ; History of pulmonary embolism Z86.711 and History of CVA (cerebrovascular accident) Z86.73 [facility] [id number] [place] [address] 38716- 6646 May, [facility] [id number] [place] [address] 41046- 1208 May, Chronic pain G89.29 [facility] [id number] [place] [address] 23934- 8378 30 Apr, 2017 Chronic pain G89.29 [facility] [id number] [address]- 9281 Apr, [facility] [id number] [place] [address] 35858- 1079 29 Mar, 2017 Chronic pain G89.29 [facility] [id number] [place] [address] 04284- 0336 18 Mar, 2017 Diabetes E11.9 [facility] [address] [place] [address] 97986- 6145 07 Mar, 2017 [facility] [address] [place] [address] 05776- 5894 Mar, Degenerative disc disease, lumbar M51.36 [facility] [facility] [id number] [place] [address] 54908- 7681 28 Feb, 2017 Diabetes E11.9 [facility] [id number] [place] [address] 27221- 3500 23 Feb, 2017 Diabetes E11.9 [facility] [id number] [place] [address] 28205- 7647 16 Feb, 2017 Diabetes E11.9 ; HTN (hypertension) I10 ; Diabetic neuropathy E11.40 and Leg cramps R25.2 [facility] [facility] [id number] [place] [address] 51990- 9386 15 Feb, 2017 Sprain of calcaneofibular ligament of right ankle, subsequent encounter S93.411D ; Major depressive disorder, recurrent episode, moderate F33.1 ; Diabetes E11.9 ; Hyperlipidemia E78.5 ; Post-traumatic stress disorder F43.10 and Other irritable bowel syndrome K58.8 [facility] [id number] [place] [address] 67944- 6036 14 Feb, 2017 Major depressive disorder, recurrent episode, moderate F33.1 ; Post-traumatic stress disorder F43.10 and Obsessive-compulsive disorder , unspecified type F42.9 [facility] [id number] [place] [address] 35122- 1503 Feb, [facility] [facility] [id number] [place] [address] 90370- 6685 Feb, Post-traumatic stress disorder F43.10 and Major depressive disorder, recurrent, moderate F33.1 [facility] [facility] [id number] [place] [address] 13131- 1516 Feb, Diabetes E11.9 [facility] [facility] [id number] [place] [address] 91842- 5994 Feb, Degenerative disc disease, lumbar M51.36 [facility] [id number] [place] [address] 85332- 5080 Feb, Post-traumatic stress disorder F43.10 and Major depressive disorder, recurrent, moderate F33.1 [facility] [address] [facility] [id number] [place] [address]- 3[address] Feb, [facility] [address] [facility] [id number] [place] [address] 51585 2546 Feb, Diabetes E11.9 [facility] [id number] [address] 2546 Jan, Diabetes E11.9 [facility] [id number] [place] [address] 95514- 9526 Jan, Post-traumatic stress disorder F43.10 and Major depressive disorder, recurrent, moderate F33.1 [facility] [address] [facility] [id number] [place] [address] 21583- 1506 Jan, Diabetes E11.9 [facility] [address] [address]- 5106 Jan, Diabetes E11.9 [facility] [id number] [address]- 6826 Jan, [facility] [id number] [place] [address] 04308- 8767 Jan, [facility] [address] [place] [address] 16175- 1342 Jan, Post-traumatic stress disorder F43.10 and Major depressive disorder, recurrent, moderate F33.1 [facility] [address] [address]- 5624 Jan, [facility] [id number] [address]- 2546 Jan, Major depressive disorder, recurrent episode, moderate F33.1 ; Post-traumatic stress disorder F43.10 and Obsessive-compulsive disorder , unspecified type F42.9 [facility] [id number] [address] Jan, [facility] [id number] [place] [address] 33563- 4610 13 Jan, 2017 Diabetes E11.9 [facility] [address] [place] [address] 80977- 6300 13 Jan, 2017 [facility] [id number] [place] [address] 33290- 7897 13 Jan, 2017 Sprain of calcaneofibular ligament of right ankle, subsequent encounter S93.411D [facility] [id number] [place] [address] 51945- 2273 Jan, Post-traumatic stress disorder F43.10 and Major depressive disorder, recurrent, moderate F33.1 [facility] [facility] [id number] [place] [address] 12053- 1254 07 Jan, 2017 Diabetes E11.9 [facility] [facility] [id number] [place] [address] 91333- 9739 16 Dec, 2016 Major depressive disorder, recurrent episode, moderate F33.1 ; Post-traumatic stress disorder F43.10 and Obsessive-compulsive disorder , unspecified type F42.9 [facility] [address] [place] [address] 54672- 9471 15 Dec, 2016 [place] [id number] [place] [address] 71024- 1726 14 Dec, 2016 Sprain of calcaneofibular ligament of right ankle, subsequent encounter S93.411D [address] [place] [address] [place] [address] 11175- 0292 13 Dec, 2016 Post-traumatic stress disorder F43.10 and Major depressive disorder, recurrent, moderate F33.1 [facility] [id number] [place] [address] 08110- 1211 13 Dec, 2016 Sprain of calcaneofibular ligament of right ankle, subsequent encounter S93.411D [facility] [place] [id number] [place] [address] 48434- 5188 12 Dec, 2016 Hyperlipidemia E78.5 [facility] [id number] [place] [address] 08306- 4346 Dec, [facility] [facility] [id number] [place] [address] 54586- 3178 Dec, Diabetes E11.9 ; Diabetic neuropathy E11.40 ; Degenerative disc disease, lumbar M51.36 ; Hyperlipidemia E78.5 ; Insomnia G47.00 ; CAD ( coronary artery disease) I25.10 ; Major depressive disorder, recurrent, moderate F33.1 ; Post-traumatic stress disorder F43.10 and Other irritable bowel syndrome K58.8 [facility] [id number] [place] [address] 11280- 5806 November, Diabetic neuropathy E11.40 and Hyperlipidemia E78.5 [place] [address] 84508- 2488 November, Degenerative disc disease, lumbar M51.36 [address] [place] [address] 55989- 3509 Oct, [place] [address] 74429- 6583 Oct, Degenerative disc disease, lumbar M51.36 [facility] [facility] [id number] [place] [address] 19556- 3484 Sep, Degenerative disc disease, lumbar M51.36 and HTN ( hypertension) I10 [id number] [place] [address] 45628- 8389 Sep, Diabetic neuropathy E11.40 ; HTN (hypertension) I10 ; Degenerative disc disease, lumbar M51.36 ; Hyperlipidemia E78.5 ; Insomnia G47.00 ; CAD (coronary artery disease) I25.10 and Diabetes E11.9 [place] [id number] [place] [address] 07464- 4263 Aug, [facility] [id number] [place] [address] 60129- 7128 Aug, Type 2 diabetes mellitus with hyperglycemia E11.65 [address] [place] [place] [address]- 2732 Aug, [facility] [address] [address]- 0478 Jul, [facility] [id number] [place] [address] 54320- 1500 Jul, [facility] [id number] [place] [address] 365562- 4521 Jun, [facility] [id number] [place] [address] 51850- 0843 Jun, [facility] [id number] [place] [address] 221288- 8735 Jun, [facility] [id number] [place] [address] 135643- 1827 Jun, [facility] [id number] [place] [address] 353485- 9695 May, Major depressive disorder, recurrent episode, moderate F33.1 and Post-traumatic stress disorder F43.10 [facility] [address] [place] [address] 36118- 0632 May, Major depressive disorder, recurrent episode, moderate F33.1 and Post-traumatic stress disorder F43.10 [facility] [address] [place] [address] 17209- 0680 May, Diabetes E11.9 ; Diabetic neuropathy E11.40 ; HTN ( hypertension) I10 ; Gastritis K29.70 ; Hyperlipidemia E78.5 ; Insomnia G47.00 and Major depressive disorder, recurrent, moderate F33.1 [facility] [address] [place] [address] 09747- 5744 May, Major depressive disorder, recurrent episode, moderate F33.1 [facility] [address] [address]- 1358 Apr, [facility] [id number] [place] [address] 42635- 0241 Apr, Major depressive disorder, recurrent episode, moderate F33.1 and Post-traumatic stress disorder F43.10 [facility] [id number] [place] [address] 15131- 8135 Apr, Diabetes E11.9 ; Diabetic neuropathy E11.40 ; Degenerative disc disease, lumbar M51.36 ; HTN (hypertension) I10 ; Hyperlipidemia E78.5 ; Chronic pain G89.29 ; CAD (coronary artery disease) I25.10 and Major depressive disorder, recurrent, moderate F33.1 [place] [id number] [place] [address] 67779- 7041 Apr, Major depressive disorder, recurrent episode, moderate F33.1 and Post-traumatic stress disorder F43.10 [id number] [place] [address] 79513- 3571 Apr, Major depressive disorder, recurrent episode, moderate F33.1 and Post-traumatic stress disorder F43.10 [facility] [id number] [place] [address] 07155- 5409 Apr, Major depressive disorder, recurrent episode, moderate F33.1 and Unspecified episodic mood disorder F39 [id number] [place] [address] 45894- 5850 Apr, Chronic pain G89.29 ; Diabetic neuropathy E11.40 ; HTN ( hypertension) I10 ; Insomnia G47.00 ; CAD (coronary artery disease) I25.10 ; Hyperlipidemia E78.5 ; Degenerative disc disease, lumbar M51.36 ; Diabetes E11.9 and Gastritis K29.70 [place] [id number] [place] [address] 25742- 2046 Sep, [address] 23445- 4352 Aug, [id number] [place] [address] 73880- 1226 Jul, Major depressive disorder, recurrent episode, moderate F33.[address] [place] [address]- 8493 Jul, Unspecified episodic mood disorder F39 [facility] [id number] [place] [address] 70515- 0177 Jul, [facility] [id number] [place] [address] 61129- 6569 Jul, [facility] [address] 42591- 8974 Jul, [facility] [address] 35577- 3973 Jul, Type 2 diabetes mellitus with hyperglycemia E11.65 ; Diabetic neuropathy E11.40 ; Degenerative disc disease, lumbar M51.36 ; HTN ( hypertension) I10 ; Gastritis K29.70 ; Hyperlipidemia E78.5 and CAD (coronary artery disease) I25.10 [place] [address] 11945- 6596 Jul, Severe episode of recurrent major depressive disorder, without psychotic features F33.2 [facility] [address] 04534- 3126 Jul, [facility] [address] 93793- 6334 Jun, [facility] [id number] [place] [address] 16784- 2308 Jun, Diabetes E11.9 ; Diabetic neuropathy E11.40 ; Degenerative disc disease, lumbar M51.36 ; HTN (hypertension) I10 ; Gastritis K29.70 ; Hyperlipidemia E78.5 ; Unspecified episodic mood disorder F39 ; Depression F32.9 and CAD (coronary artery disease) I25.10 [place] [address] 02237- 5276 Jun, [place] [id number] [place] [address] 94578- 6118 Jun, [facility] [address] 30894- 0787 Jun, Diabetes E11.9 ; Diabetic neuropathy E11.40 ; Degenerative disc disease, lumbar M51.36 ; HTN (hypertension) I10 ; Gastritis K29.70 ; Chronic pain G89.29 ; Insomnia G47.00 and Unspecified episodic mood disorder F39 [facility] [id number] [place] [address] 28068- 3976 May, Diabetic neuropathy E11.40 ; Degenerative disc disease, lumbar M51.36 ; HTN (hypertension) I10 ; Gastritis K29.70 ; Hyperlipidemia E78.5 ; Chronic pain G89.29 ; Insomnia G47.00 ; Unspecified episodic mood disorder F39 ; Diabetes E11.9 ; CAD (coronary artery disease) I25.10 and H/O Gram positive sepsis Z86.19 [place] [address] 75554- 6384 May, [facility] [address] 20264- 6610 May, [facility] [address] 83191- 0387 May, [facility] [address] 24828- 3702 May, [facility] [id number] [place] [address] 42376- 9793 May, UTI (urinary tract infection) N39.0 ; Diabetes E11.9 ; Diabetic neuropathy E11.40 ; Hyperlipidemia E78.5 and Chronic pain G89.29 [place] [address] 95044- 5933 May, Insomnia, unspecified G47.00 and Chronic pain G89.29 [facility] [address] 08041- 5063 May, [facility] [id number] [place] [address] 51268- 7166 May, [facility] [address] 63124- 9555 May, [place] [id number] [place] [address] 21234- 4717 Apr, Insomnia, unspecified G47.00 ; Chronic pain G89.29 and Unspecified episodic mood disorder F39 [id number] [place] [address] 95010- 1508 Apr, Unspecified episodic mood disorder F39 [facility] [address] 32362- 1609 Apr, Major depression F32.9 [facility] [address] 40690- 1419 Apr, [facility] [id number] [place] [address] 26848- 3505 Apr, Diabetes E11.9 ; Diabetic neuropathy E11.40 ; Degenerative disc disease, lumbar M51.36 ; HTN (hypertension) I10 ; Gastritis K29.70 ; Hyperlipidemia E78.5 ; Chronic pain G89.29 and Insomnia G47.00 [place] [id number] [place] [address] 81139- 5253 Mar, [place] [id number] [place] [address] 25103- 3522 Mar, [place] [id number] [place] [address] 73869- 8230 Mar, [place] [id number] [place] [address] 83993- 0786 Mar, Diabetes mellitus 250.00 ; Diabetic neuropathy 250.60 ; CAD (coronary artery disease) 414.00 ; Degenerative disc disease, lumbar 722.52 ; Gastritis 535.50 and Insomnia 780.52 [place] [id number] [place] [address] 72457- 6399 Mar, Diabetes mellitus 250.00 ; Degenerative disc disease, lumbar 722.52 ; Essential hypertension 401.9 ; Gastritis 535.50 and Chronic pain 338.29 [place] [address] [address]- 1161 Feb, [facility] [id number] [place] [address] 450121- 9055 Feb, [facility] [id number] [place] [address] 18195- 2732 Jan, [facility] [id number] [place] [address] 395127- 0602 Jan, Diabetes mellitus 250.00 ; Diabetic neuropathy 250.60 ; Degenerative disc disease, lumbar 722.52 ; CAD (coronary artery disease) 414.00 ; Essential hypertension 401.9 ; Gastritis 535.50 ; Hyperlipidemia 272.4 and Distal end of ulna fracture, closed 813.43 [facility] [id number] [place] [address] 05053- 5168 Dec, Wrist pain 719.43 and Diabetes mellitus 250.00 [facility] [id number] [place] [address] 76853- 1736 May, [facility] [id number] [place] [address] 95732- 7142 Dec, [facility] [id number] [place] [address] 62531- 8595 November, [facility] [address] [address]- 2742 Oct, [facility] [address] [address]- 6275 Sep, [facility] [address] [address]- 9189 Sep, [facility] [address] [place] [address] 09702- 9333 Jun, [facility] [address] [address]- 4366 Jun, [facility] [id number] [address]- 3069 14 Jun, 2009 [facility] [address] [address]- 3282 Jun, [facility] [address] 0302 Jun, [facility] [id number] [place] [address] 26384- 2255 Jun, [facility] [id number] [place] [address] 568053- 5986 Jun, [facility] [id number] [place] [address] 080241- 8714 May, [facility] [id number] [place] [address] 03297- 5908 May, [facility] [id number] [place] [address] 72929- 2946 May, [facility] [address] [address]- 9852 May, [facility] [id number] [place] [phone] Apr, [facility] [id number] [address] Apr, [facility] [id number] [place] [phone] Apr, [facility] [id number] [address] Mar, [facility] [id number] [address] Dec, IMMUNIZATIONS No Known Immunizations SOCIAL HISTORY Never Assessed REASON FOR VISIT Refill request PLAN OF CARE VITAL SIGNS MEDICATIONS Medication Instructions Dosage Frequency Start Date End Date Duration Status Pen [place] 31G X 6 MM as directed 6h Dec, Active RESULTS No Results PROCEDURES No Known [...]
--- OUTSIDE RECORDS SUMMARY | 2018-01-18 11:06 | XMS REPORT ---
Author Author PATRICK Peralta Organization [facility] Address [address] [place] [address] Care Team Providers Care Senior Courtroom Clerk Name Role Phone PATRICK Peralta Unavailable PROBLEMS Type Condition ICD9-CM Code XFS66-CT Code Onset Dates Condition Status SNOMED Code Problem Type 2 diabetes mellitus with hyperglycemia E11.65 Active [id number] Problem Obsessive-compulsive disorder, unspecified type F42.9 Active 452529679 Problem Major depressive disorder, recurrent episode, moderate F33.1 Active 027963307 Problem Falls frequently R29.6 Active 536661781 Problem Diabetes E11.9 Active 032030729 Problem Type 2 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 E11.49 Active 77868380 Problem History of pulmonary embolism Z86.711 Active 758461609 Problem 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 Active 022719913 Problem 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.29 Active 66837999 Problem Hyperlipidemia E78.5 Active 39760690 Problem Insomnia G47.00 Active 889350704 Problem HTN (hypertension) I10 Active 00866914 Problem Chronic pain G89.29 Active 32724670 Problem CAD (coronary artery disease) I25.10 Active 57260310 Problem Degenerative disc disease, lumbar M51.36 Active 07804967 Problem Post-traumatic stress disorder F43.10 Active 77066730 ALLERGIES No Information ENCOUNTERS Encounter Location Date Diagnosis [facility] [address] [facility] [id number] [address] November, [facility] [id number] [place] [address] 92800- 1299 Sep, Diabetes E11.9 [facility] [id number] [address] Sep, Chronic pain G89.29 [facility] [address] [address] Sep, [facility] [id number] [place] [address] 60332- 3830 Sep, Falls frequently R29.6 ; correction 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.4 and Type 2 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 E11.49 [facility] [id number] [place] [address] 45934- 4416 Sep, [facility] [id number] [place] [address] 50462- 4376 Sep, Diabetes E11.9 [facility] [id number] [place] [address] 62671- 7261 Aug, [facility] [id number] [address] Aug, Chronic pain G89.29 [facility] [address] [address] Aug, [facility] [id number] [place] [address] 54110- 8531 Aug, Chronic pain G89.29 [facility] [address] [address] 97[address] Jul, [facility] [address] [address] 0841 Jul, Diabetes E11.9 and 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.29 [facility] [address] [address] 6794 Jul, 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.29 [facility] [address] [address] 91[address] Jul, [facility] [address] [address] 3564 Jul, Chronic pain G89.29 [facility] [id number] [place] [address] 68898- 6123 Jun, Diabetes E11.9 [facility] [id number] [place] [address] 69474- 7299 Jun, Chronic pain G89.29 [facility] [id number] [place] [address] 22753- 4606 Jun, Diabetes E11.9 ; Atypical chest pain R07.89 ; 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 ; 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.29 ; Type 2 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 E11.49 ; History of pulmonary embolism Z86.711 and History of CVA (cerebrovascular accident) Z86.73 [facility] [id number] [place] [address] 63830- 8999 May, [facility] [id number] [place] [address] 84600- 9095 May, Chronic pain G89.29 [facility] [id number] [place] [address] 03361- 9856 Apr, Chronic pain G89.29 [facility] [id number] [place] [address] 09799- 9617 Apr, [facility] [id number] [place] [address] 65964- 8277 Mar, Chronic pain G89.29 [facility] [id number] [place] [address] 00822- 5006 18 Mar, 2017 Diabetes E11.9 [facility] [id number] [place] [address] 27200- 7830 Mar, [facility] [id number] [place] [address] 32354- 6172 Mar, Degenerative disc disease, lumbar M51.36 [facility] [id number] [place] [address] 32088- 2169 Feb, Diabetes E11.9 [facility] [id number] [place] [address] 18787- 0984 23 Feb, 2017 Diabetes E11.9 [facility] [address] 58162- 9033 16 Feb, 2017 Diabetes E11.9 ; HTN (hypertension) I10 ; Diabetic neuropathy E11.40 and Leg cramps R25.2 [facility] [address] 44833- 2381 15 Feb, 2017 Sprain of calcaneofibular ligament of right ankle, subsequent encounter S93.411D ; Major depressive disorder, recurrent episode, moderate F33.1 ; Diabetes E11.9 ; Hyperlipidemia E78.5 ; Post-traumatic stress disorder F43.10 and Other irritable bowel syndrome K58.8 [facility] [id number] [place] [address] 00094- 5118 14 Feb, 2017 Major depressive disorder, recurrent episode, moderate F33.1 ; Post-traumatic stress disorder F43.10 and Obsessive-compulsive disorder , unspecified type F42.9 [facility] [id number] [place] [address] 76397- 2458 Feb, [facility] [id number] [place] [address] 66958- 9490 Feb, Post-traumatic stress disorder F43.10 and Major depressive disorder, recurrent, moderate F33.1 [facility] [id number] [place] [address] 92065- 2488 Feb, Diabetes E11.9 [facility] [id number] [place] [address] 34007- 8928 Feb, Degenerative disc disease, lumbar M51.36 [facility] [address] 23155- 2034 Feb, Post-traumatic stress disorder F43.10 and Major depressive disorder, recurrent, moderate F33.1 [facility] [id number] [place] [address] 55643- 5372 Feb, [facility] [address] [address] 29[address] Feb, Diabetes E11.9 [facility] [address] [facility] [id number] [address] 3516 Jan, Diabetes E11.9 [facility] [address] [address] 8336 Jan, Post-traumatic stress disorder F43.10 and Major depressive disorder, recurrent, moderate F33.1 [facility] [address] [facility] [id number] [place] [address] 56989- 9112 Jan, Diabetes E11.9 [facility] [id number] [place] [address] [id number]- 3006 Jan, Diabetes E11.9 [facility] [address] [place] [address] 49640- 5777 Jan, [facility] [id number] [place] [address] 70663- 4194 Jan, [facility] [address] [place] [address] 98937- 8949 Jan, Post-traumatic stress disorder F43.10 and Major depressive disorder, recurrent, moderate F33.1 [facility] [address] [address]- 9932 Jan, [facility] [id number] [place] [address] 71421- 4086 Jan, Major depressive disorder, recurrent episode, moderate F33.1 ; Post-traumatic stress disorder F43.10 and Obsessive-compulsive disorder , unspecified type F42.9 [facility] [address] [address]- 1214 Jan, [facility] [id number] [place] [address] 94288- 3656 Jan, Diabetes E11.9 [facility] [id number] [place] [address] 57810- 6274 13 Jan, 2017 [facility] [id number] [place] [address] 11202- 0087 13 Jan, 2017 Sprain of calcaneofibular ligament of right ankle, subsequent encounter S93.411D [facility] [address] [place] [address] 48961- 5389 13 Jan, 2017 Post-traumatic stress disorder F43.10 and Major depressive disorder, recurrent, moderate F33.1 [facility] [id number] [place] [address] 07422- 3927 07 Jan, 2017 Diabetes E11.9 [facility] [id number] [place] [address] 848620- 4289 16 Dec, 2016 Major depressive disorder, recurrent episode, moderate F33.1 ; Post-traumatic stress disorder F43.10 and Obsessive-compulsive disorder , unspecified type F42.9 [facility] [id number] [place] [address] 13419- 2571 15 Dec, 2016 [facility] [id number] [place] [address] 80683- 6983 14 Dec, 2016 Sprain of calcaneofibular ligament of right ankle, subsequent encounter S93.411D [facility] [address] [place] [address] 73717- 9139 13 Dec, 2016 Post-traumatic stress disorder F43.10 and Major depressive disorder, recurrent, moderate F33.1 [facility] [id number] [place] [address] 32387- 5941 13 Dec, 2016 Sprain of calcaneofibular ligament of right ankle, subsequent encounter S93.411D [facility] [id number] [place] [address] 74387- 3272 12 Dec, 2016 Hyperlipidemia E78.5 [facility] [address] [place] [address] 22023- 2160 08 Dec, 2016 [facility] [id number] [place] [address] 80679- 3494 Dec, Diabetes E11.9 ; Diabetic neuropathy E11.40 ; Degenerative disc disease, lumbar M51.36 ; Hyperlipidemia E78.5 ; Insomnia G47.00 ; CAD ( coronary artery disease) I25.10 ; Major depressive disorder, recurrent, moderate F33.1 ; Post-traumatic stress disorder F43.10 and Other irritable bowel syndrome K58.8 [facility] [address] 27852- 6830 November, Diabetic neuropathy E11.40 and Hyperlipidemia E78.5 [facility] [address] 00418- 4057 November, Degenerative disc disease, lumbar M51.36 [facility] [address] 90539- 3612 Oct, [address] 26701- 2049 Oct, Degenerative disc disease, lumbar M51.36 [facility] [address] 29306- 1359 Sep, Degenerative disc disease, lumbar M51.36 and HTN ( hypertension) I10 [address] 30028- 1696 Sep, Diabetic neuropathy E11.40 ; HTN (hypertension) I10 ; Degenerative disc disease, lumbar M51.36 ; Hyperlipidemia E78.5 ; Insomnia G47.00 ; CAD (coronary artery disease) I25.10 and Diabetes E11.9 [facility] [id number] [place] [address] 13978- 9995 Aug, [facility] [address] 55477- 7239 Aug, Type 2 diabetes mellitus with hyperglycemia E11.65 [facility] [id number] [place] [address] 96585- 5710 Aug, [facility] [address] 23645- 2546 Jul, [facility] [address] 4846 Jul, [facility] [address] [address]- 5836 Jun, [facility] [address] [address]- 8466 Jun, [facility] [address] [address]- 8029 Jun, [facility] [address] [address]- 5793 Jun, [facility] [address] 4026 May, Major depressive disorder, recurrent episode, moderate F33.1 and Post-traumatic stress disorder F43.10 [facility] [address] [address]- 3340 May, Major depressive disorder, recurrent episode, moderate F33.1 and Post-traumatic stress disorder F43.10 [facility] [address] [address]- 2716 May, Diabetes E11.9 ; Diabetic neuropathy E11.40 ; HTN ( hypertension) I10 ; Gastritis K29.70 ; Hyperlipidemia E78.5 ; Insomnia G47.00 and Major depressive disorder, recurrent, moderate F33.1 [facility] [address] [address]- 4794 May, Major depressive disorder, recurrent episode, moderate F33.1 [facility] [address] 9216 Apr, [facility] [address] 8214 Apr, Major depressive disorder, recurrent episode, moderate F33.1 and Post-traumatic stress disorder F43.10 [facility] [id number] [place] [address] 31984- 7267 Apr, Diabetes E11.9 ; Diabetic neuropathy E11.40 ; Degenerative disc disease, lumbar M51.36 ; HTN (hypertension) I10 ; Hyperlipidemia E78.5 ; Chronic pain G89.29 ; CAD (coronary artery disease) I25.10 and Major depressive disorder, recurrent, moderate F33.1 [facility] [id number] [place] [address] 38792- 2378 Apr, Major depressive disorder, recurrent episode, moderate F33.1 and Post-traumatic stress disorder F43.10 [facility] [id number] [place] [address] 26916- 5229 Apr, Major depressive disorder, recurrent episode, moderate F33.1 and Post-traumatic stress disorder F43.10 [facility] [id number] [place] [address] 21186- 4591 Apr, Major depressive disorder, recurrent episode, moderate F33.1 and Unspecified episodic mood disorder F39 [facility] [id number] [place] [address] 51784- 6378 Apr, Chronic pain G89.29 ; Diabetic neuropathy E11.40 ; HTN ( hypertension) I10 ; Insomnia G47.00 ; CAD (coronary artery disease) I25.10 ; Hyperlipidemia E78.5 ; Degenerative disc disease, lumbar M51.36 ; Diabetes E11.9 and Gastritis K29.70 [facility] [id number] [place] [address] 40315- 3100 Sep, [facility] [id number] [place] [address] 68337- 1396 Aug, [facility] [id number] [place] [address] 28394- 3643 Jul, Major depressive disorder, recurrent episode, moderate F33.1 [facility] [id number] [place] [address] 46754- 0127 Jul, Unspecified episodic mood disorder F39 [facility] [address] [place] [address]- 9785 Jul, [facility] [id number] [place] [address] 36460- 3184 Jul, [facility] [id number] [place] [address] 71377- 2542 Jul, [facility] [id number] [place] [address] 30731- 8206 Jul, Type 2 diabetes mellitus with hyperglycemia E11.65 ; Diabetic neuropathy E11.40 ; Degenerative disc disease, lumbar M51.36 ; HTN ( hypertension) I10 ; Gastritis K29.70 ; Hyperlipidemia E78.5 and CAD (coronary artery disease) I25.10 [facility] [id number] [place] [address] 15070- 4890 Jul, Severe episode of recurrent major depressive disorder, without psychotic features F33.[address] 16473- 5784 Jul, [facility] [id number] [place] [address] 88279- 2048 Jun, [facility] [id number] [place] [address] 70763- 8201 Jun, Diabetes E11.9 ; Diabetic neuropathy E11.40 ; Degenerative disc disease, lumbar M51.36 ; HTN (hypertension) I10 ; Gastritis K29.70 ; Hyperlipidemia E78.5 ; Unspecified episodic mood disorder F39 ; Depression F32.9 and CAD (coronary artery disease) I25.10 [facility] [id number] [place] [address] 84538- 1590 Jun, [address] 31746- 7872 Jun, [facility] [id number] [place] [address] 33606- 1701 Jun, Diabetes E11.9 ; Diabetic neuropathy E11.40 ; Degenerative disc disease, lumbar M51.36 ; HTN (hypertension) I10 ; Gastritis K29.70 ; Chronic pain G89.29 ; Insomnia G47.00 and Unspecified episodic mood disorder F39 [facility] [id number] [place] [address] 34922- 9974 May, Diabetic neuropathy E11.40 ; Degenerative disc disease, lumbar M51.36 ; HTN (hypertension) I10 ; Gastritis K29.70 ; Hyperlipidemia E78.5 ; Chronic pain G89.29 ; Insomnia G47.00 ; Unspecified episodic mood disorder F39 ; Diabetes E11.9 ; CAD (coronary artery disease) I25.10 and H/O Gram positive sepsis Z86.19 [facility] [id number] [place] [address] 21168- 0129 May, [facility] [address] 59495- 7606 May, [facility] [address] 20094- 1506 May, [facility] [address] 94828- 4404 May, [facility] [id number] [place] [address] 52770- 2307 May, UTI (urinary tract infection) N39.0 ; Diabetes E11.9 ; Diabetic neuropathy E11.40 ; Hyperlipidemia E78.5 and Chronic pain G89.29 [facility] [id number] [place] [address] 96506- 3897 May, Insomnia, unspecified G47.00 and Chronic pain G89.29 [facility] [id number] [place] [address] 48216- 5023 May, [facility] [address] 51065- 4460 May, [facility] [id number] [place] [address] 65303- 2500 May, [facility] [address] 50245- 3483 Apr, Insomnia, unspecified G47.00 ; Chronic pain G89.29 and Unspecified episodic mood disorder F39 [facility] [id number] [place] [address] 56170- 5848 Apr, Unspecified episodic mood disorder F39 [facility] [id number] [place] [address] 54879- 8878 Apr, Major depression F32.9 [facility] [address] 79784- 5096 Apr, [facility] [id number] [place] [address] 53806- 0948 Apr, Diabetes E11.9 ; Diabetic neuropathy E11.40 ; Degenerative disc disease, lumbar M51.36 ; HTN (hypertension) I10 ; Gastritis K29.70 ; Hyperlipidemia E78.5 ; Chronic pain G89.29 and Insomnia G47.00 [facility] [address] 84151- 7927 Mar, [facility] [id number] [place] [address] 04425- 0996 Mar, [facility] [id number] [place] [address] 67410- 3884 Mar, [facility] [id number] [place] [address] 38729- 6442 Mar, Diabetes mellitus 250.00 ; Diabetic neuropathy 250.60 ; CAD (coronary artery disease) 414.00 ; Degenerative disc disease, lumbar 722.52 ; Gastritis 535.50 and Insomnia 780.52 [facility] [id number] [place] [address] 57173- 4163 Mar, Diabetes mellitus 250.00 ; Degenerative disc disease, lumbar 722.52 ; Essential hypertension 401.9 ; Gastritis 535.50 and Chronic pain 338.29 [facility] [id number] [place] [address] 89229- 2567 Feb, [facility] [address] [address]- 5168 Feb, [facility] [id number] [place] [address] 98189- 4417 Jan, [facility] [id number] [place] [address] 74229- 3065 Jan, Diabetes mellitus 250.00 ; Diabetic neuropathy 250.60 ; Degenerative disc disease, lumbar 722.52 ; CAD (coronary artery disease) 414.00 ; Essential hypertension 401.9 ; Gastritis 535.50 ; Hyperlipidemia 272.4 and Distal end of ulna fracture, closed 813.43 [facility] [id number] [place] [address] 51518- 0376 Dec, Wrist pain 719.43 and Diabetes mellitus 250.00 [facility] [id number] [place] [address] 04497- 7582 May, [facility] [id number] [place] [address] 42944- 0373 Dec, [facility] [id number] [place] [address] 63511- 3790 November, [facility] [id number] [place] [address] 70364- 6587 16 Oct, 2009 [facility] [id number] [place] [address] 31406- 5159 Sep, [facility] [id number] [place] [address] 81363- 3805 Sep, [facility] [id number] [place] [address] 63839- 6180 Jun, [facility] [id number] [place] [address] 45836199- 4519 Jun, [facility] [id number] [place] [address] 40301- 2840 14 Jun, 2009 [facility] [id number] [place] [address] 67001- 6186 Jun, [facility] [id number] [address]- 1140 Jun, [facility] [address] [address]- 0536 Jun, [facility] [address] [address]- 9096 Jun, [facility] [address] [address]- 2743 May, [facility] [address] [address]- 4175 May, [facility] [address] [address]- 1511 May, [facility] [address] [address]- 7024 May, [facility] [address] [address]- 2328 Apr, [facility] [address] 5251 Apr, [facility] [address] 8388 Apr, [facility] [id number] [address]- 0054 Mar, [facility] [address] [address]- 8400 Dec, IMMUNIZATIONS No Known Immunizations SOCIAL HISTORY Never Assessed REASON FOR VISIT BS ck PLAN OF CARE VITAL SIGNS MEDICATIONS Unknown [...]
--- OUTSIDE RECORDS SUMMARY | 2018-01-18 11:06 | XMS REPORT ---
Author Author KLAUS MEDINA [facility] Address [address] [place] [address] Care Team Providers Care Grid Molder Name Role Phone KLAUS MEDINA Unavailable PROBLEMS Type Condition ICD9-CM Code [id number] Code Onset Dates Condition Status SNOMED Code Problem Degenerative disc disease, lumbar M51.36 Active 24450145 Problem HTN (hypertension) I10 Active 82065852 Problem Insomnia G47.00 Active 992777092 Problem Leg cramps R25.2 Active 122376313 Problem Obsessive-compulsive disorder, unspecified type F42.9 Active 068834841 Problem Post-traumatic stress disorder F43.10 Active 87664472 Problem CAD (coronary artery disease) I25.10 Active 81888151 Problem Major depressive disorder, recurrent episode, moderate F33.1 Active 599308645 Problem Type 2 diabetes mellitus with hyperglycemia E11.65 Active 831345148768205 Problem Diabetic neuropathy E11.40 Active 421363160 Problem Hyperlipidemia E78.5 Active 81675602 Problem Chronic pain G89.29 Active 13204619 Problem Diabetes E11.9 Active 35733962 Problem Gastritis K29.70 Active 1214030 ALLERGIES Substance Reaction Event Type Date Status Viibryd N/V Drug Allergy Aug, Active Seroquel N/V and "couldn't do anything." Drug Allergy Aug, Active Penicillin V Potassium Unknown Drug Allergy Aug, Active Lexapro N/V, inc. suicidality Drug Allergy Aug, Active Ibuprofen Unknown Drug Allergy Aug, Active Depakote inc. suicidality Drug Allergy Aug, Active SOCIAL HISTORY Never Assessed PLAN OF CARE Activity Details Follow Up re-est care with PCP Reason: VITAL SIGNS Height 61 in 2016-09-01 Weight 128.5 lbs 2016-09-01 Temperature 98.4 degrees Fahrenheit 2016-09-01 Heart Rate 92 bpm 2016-09-01 Respiratory Rate 18 2016-09-01 Oximetry on room air:98 % 2016-09-01 BMI 24.28 kg/m2 2016-09-01 Blood pressure systolic 130 mmHg 2016-09-01 Blood pressure diastolic 82 mmHg 2016-09-01 MEDICATIONS Medication Instructions Dosage Frequency Start Date End Date Duration Status Metoclopramide HCl 10 mg Orally every 6 hours 1 tab 6h Active Crestor 20 mg Orally Once a day 1 tablet 24h Active Plavix 75 MG Orally Once a day 1 tablet 24h Active BuPROPion HCl 75 MG Orally daily 0.5 tablet every am X 2 weeks then 1 tablet every morning with food. 24h 10 May, 2016 30 day(s) Active Levemir FlexTouch 100 UNIT/ML Subcutaneous 15 units at bedtime inject Active Aspir-81 81 MG Orally Once a day 1 tablet 24h Active Gabapentin 300 MG Orally Three times a day 1 capsule 8h 30 Active NovoLog Flexpen 100 UNIT/ML Subcutaneous 5 units with meals inject Active Lisinopril 20 mg Orally Once a day 1 tablet 24h Apr, Active Hydrocodone-Acetaminophen 10-325 MG Orally 3 times a day 1 tablet as needed 8h Jul, Active RESULTS No Results PROCEDURES Procedure Date Ordered Result Body Site MEASURE BLOOD OXYGEN LEVEL Sep 01, 2016 [facility] VISIT ESTABLISHED PATIENT Sep 01, 2016 IMMUNIZATIONS No Known Immunizations MEDICAL (GENERAL) HISTORY [...]
--- OUTSIDE RECORDS SUMMARY | 2018-01-18 11:06 | XMS REPORT ---
Author Author JALEN PEREZ Organization 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.4 Active 858041561 Problem Major depressive disorder, recurrent episode, moderate F33.1 Active 252194338 Problem 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.29 Active 98505979 Problem Type 2 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 E11.49 Active 19813209 Problem Chronic pain G89.29 Active 94127540 Problem Degenerative disc disease, lumbar M51.36 Active 33306888 Problem Insomnia G47.00 Active 821560524 Problem HTN (hypertension) I10 Active 43402494 Problem Hyperlipidemia E78.5 Active 55079093 Problem CAD (coronary artery disease) I25.10 Active 52215127 ALLERGIES No Information ENCOUNTERS Encounter Location Date Diagnosis [facility] [address] [facility] [id number] [address] Jan, [facility] [address] [address] 1871 Jan, [facility] [address] [address] 7874 Dec, [facility] [id number] [address] 8695 Dec, Diabetes E11.9 ; Type 2 diabetes mellitus with hyperglycemia E11.65 and Intractable vomiting with nausea, unspecified vomiting type R11.2 [place] [id number] [place] [address] 03698- 5376 Dec, Chronic pain G89.29 [facility] [id number] [place] [address] 42605- 4202 November, 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 [id number] [place] [address] 42599- 1742 Sep, Chronic pain G89.29 [facility] [id number] [place] [address] 50548- 2825 Sep, [place] [id number] [place] [address] 74933- 0922 Sep, Falls frequently R29.6 ; [facility] 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.4 and Type 2 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 E11.49 [facility] [id number] [address] 5581 Sep, [facility] [id number] [place] [address] 57931- 0997 Sep, Diabetes E11.9 [facility] [address] [address] 1376 Aug, [facility] [address] [address]- 2288 Aug, Chronic pain G89.29 [facility] [address] [address] 8249 Aug, [facility] [id number] [place] [address] 06396- 5939 Aug, Chronic pain G89.29 [facility] [address] [address] 2668 Jul, [facility] [id number] [place] [address] 97027- 7434 Jul, Diabetes E11.9 and 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.29 [facility] [address] [address] 9778 Jul, 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.29 [facility] [address] [address]- 5585 Jul, [facility] [address] [address]- 0176 Jul, Chronic pain G89.29 [facility] [address] [address] 4084 Jun, Diabetes E11.9 [facility] [id number] [address] 1551 Jun, Chronic pain G89.29 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 [id number] [place] [address] 12693- 8168 May, [facility] [id number] [place] [address] 93931- 1082 May, Chronic pain G89.29 [facility] [id number] [place] [address] 87578- 3823 Apr, Chronic pain G89.29 [facility] [facility] [id number] [place] [address] 94031- 2091 Apr, [facility] [id number] [place] [address] 43414- 6386 Mar, Chronic pain G89.29 [facility] [id number] [place] [address] 78284- 0630 18 Mar, 2017 Diabetes E11.9 [facility] [facility] [id number] [place] [address] 83344- 3092 07 Mar, 2017 [facility] [id number] [place] [address] 79742- 8943 Mar, Degenerative disc disease, lumbar M51.36 [facility] [facility] [id number] [place] [address] 00040- 0048 Feb, Diabetes E11.9 [facility] [facility] [id number] [place] [address] 63496- 6624 Feb, Diabetes E11.9 [facility] [facility] [id number] [place] [address] 04765- 0182 16 Feb, 2017 Diabetes E11.9 ; HTN (hypertension) I10 ; Diabetic neuropathy E11.40 and Leg cramps R25.2 [place] [address] [place] [address] 41188- 0398 15 Feb, 2017 Sprain of calcaneofibular ligament of right ankle, subsequent encounter S93.411D ; Major depressive disorder, recurrent episode, moderate F33.1 ; Diabetes E11.9 ; Hyperlipidemia E78.5 ; Post-traumatic stress disorder F43.10 and Other irritable bowel syndrome K58.8 [place] [id number] [place] [address] [address]193 Feb, Major depressive disorder, recurrent episode, moderate F33.1 ; Post-traumatic stress disorder F43.10 and Obsessive-compulsive disorder , unspecified type F42.9 [facility] [id number] [place] [address] 19677- 3513 Feb, [place] [id number] [place] [address] 37645- 3089 Feb, Post-traumatic stress disorder F43.10 and Major depressive disorder, recurrent, moderate F33.1 [facility] [facility] [id number] [place] [address] 49511- 4023 Feb, Diabetes E11.9 [place] [id number] [place] [address] 22598- 2512 Feb, Degenerative disc disease, lumbar M51.36 [place] [facility] [id number] [place] [address] 96722- 3822 Feb, Post-traumatic stress disorder F43.10 and Major depressive disorder, recurrent, moderate F33.1 [place] [id number] [place] [address] 85176- 1640 Feb, [place] [id number] [place] [address] 98304- 7028 Feb, Diabetes E11.9 [facility] [id number] [place] [address] 66422- 7088 Jan, Diabetes E11.9 [facility] [id number] [place] [address] 06920- 3174 Jan, Post-traumatic stress disorder F43.10 and Major depressive disorder, recurrent, moderate F33.1 [place] [id number] [place] [address] 09566- 6058 Jan, Diabetes E11.9 [facility] [id number] [address]- 5605 Jan, Diabetes E11.9 [facility] [address] [facility] [id number] [address]76 Jan, [facility] [address] [address]- 4784 Jan, [facility] [id number] [place] [address] 23925- 0004 Jan, Post-traumatic stress disorder F43.10 and Major depressive disorder, recurrent, moderate F33.1 [facility] [address] [place] [address] 02873- 7986 Jan, [facility] [id number] [place] [address] 71659- 4030 Jan, Major depressive disorder, recurrent episode, moderate F33.1 ; Post-traumatic stress disorder F43.10 and Obsessive-compulsive disorder , unspecified type F42.9 [facility] [address] [address]- 6512 Jan, [facility] [id number] [place] [address] 65075- 4275 Jan, Diabetes E11.9 [facility] [address] [address]- 0159 Jan, [facility] [id number] [place] [address] 01617- 9291 Jan, Sprain of calcaneofibular ligament of right ankle, subsequent encounter S93.411D [facility] [id number] [place] [address] 82287- 2878 Jan, Post-traumatic stress disorder F43.10 and Major depressive disorder, recurrent, moderate F33.1 [facility] [address] [address]- 6646 Jan, Diabetes E11.9 [place] [address] [address]- 4736 16 Dec, 2016 Major depressive disorder, recurrent episode, moderate F33.1 ; Post-traumatic stress disorder F43.10 and Obsessive-compulsive disorder , unspecified type F42.9 [place] [address] [place] [address] 49944- 7186 15 Dec, 2016 [place] [id number] [place] [address] 68380- 3778 14 Dec, 2016 Sprain of calcaneofibular ligament of right ankle, subsequent encounter S93.411D [place] [id number] [place] [address] 06849- 4721 13 Dec, 2016 Post-traumatic stress disorder F43.10 and Major depressive disorder, recurrent, moderate F33.1 [place] [id number] [place] [address] 92539- 3643 13 Dec, 2016 Sprain of calcaneofibular ligament of right ankle, subsequent encounter S93.411D [facility] [address] [place] [address] 18591- 3015 12 Dec, 2016 Hyperlipidemia E78.5 [place] [id number] [place] [address] 97082- 9598 08 Dec, 2016 [place] [id number] [place] [address] 25740- 0605 07 Dec, 2016 Diabetes E11.9 ; Diabetic neuropathy E11.40 ; Degenerative disc disease, lumbar M51.36 ; Hyperlipidemia E78.5 ; Insomnia G47.00 ; CAD ( coronary artery disease) I25.10 ; Major depressive disorder, recurrent, moderate F33.1 ; Post-traumatic stress disorder F43.10 and Other irritable bowel syndrome K58.8 [place] [address] [place] [address] 02688- 6010 November, Diabetic neuropathy E11.40 and Hyperlipidemia E78.5 [place] [id number] [place] [address] 36561- 3904 November, Degenerative disc disease, lumbar M51.36 [facility] [id number] [address]- 2930 Oct, [facility] [id number] [place] [address] 951035- 4229 Oct, Degenerative disc disease, lumbar M51.36 [facility] [id number] [place] [address] 34888- 2587 Sep, Degenerative disc disease, lumbar M51.36 and HTN ( hypertension) I10 [facility] [id number] [place] [address] 48613- 5500 Sep, Diabetic neuropathy E11.40 ; HTN (hypertension) I10 ; Degenerative disc disease, lumbar M51.36 ; Hyperlipidemia E78.5 ; Insomnia G47.00 ; CAD (coronary artery disease) I25.10 and Diabetes E11.9 [facility] [id number] [place] [address] 22584- 7988 Aug, [facility] [id number] [place] [address] 72794- 6773 Aug, Type 2 diabetes mellitus with hyperglycemia E11.65 [facility] [id number] [place] [address] 80246- 2304 Aug, [facility] [id number] [address]- 6666 Jul, [facility] [id number] [place] [address] 69404- 1550 Jul, [facility] [id number] [place] [address] 74552- 3944 Jun, [facility] [id number] [place] [address] 61451- 1460 Jun, [facility] [address] [address]- 6830 Jun, [facility] [id number] [place] [address] 16926- 0171 Jun, [place] [address] [place], [place] [address]- 2333 May, Major depressive disorder, recurrent episode, moderate F33.1 and Post-traumatic stress disorder F43.10 [place] [address] [place] [address] 91135- 2214 May, Major depressive disorder, recurrent episode, moderate F33.1 and Post-traumatic stress disorder F43.10 [place] [address] [place] [address] 55409- 0999 May, Diabetes E11.9 ; Diabetic neuropathy E11.40 ; HTN ( hypertension) I10 ; Gastritis K29.70 ; Hyperlipidemia E78.5 ; Insomnia G47.00 and Major depressive disorder, recurrent, moderate F33.1 [place] [address] [place] [address] 11641- 6454 May, Major depressive disorder, recurrent episode, moderate F33.1 [place] [address] [place] [address] 75544- 2426 Apr, [place] [id number] [place] [address]- 9151 Apr, Major depressive disorder, recurrent episode, moderate F33.1 and Post-traumatic stress disorder F43.10 [place] [address] [place] [address] 61415- 2244 Apr, Diabetes E11.9 ; Diabetic neuropathy E11.40 ; Degenerative disc disease, lumbar M51.36 ; HTN (hypertension) I10 ; Hyperlipidemia E78.5 ; Chronic pain G89.29 ; CAD (coronary artery disease) I25.10 and Major depressive disorder, recurrent, moderate F33.1 [place] [address] [place] [address]- 3599 Apr, Major depressive disorder, recurrent episode, moderate F33.1 and Post-traumatic stress disorder F43.10 [place] [address] [place] [address]- 2546 Apr, Major depressive disorder, recurrent episode, moderate F33.1 and Post-traumatic stress disorder F43.10 [place] [address] [place] [address] 80398- 4795 Apr, Major depressive disorder, recurrent episode, moderate F33.1 and Unspecified episodic mood disorder F39 [place] [id number] [place] [address] 42475- 5733 Apr, Chronic pain G89.29 ; Diabetic neuropathy E11.40 ; HTN ( hypertension) I10 ; Insomnia G47.00 ; CAD (coronary artery disease) I25.10 ; Hyperlipidemia E78.5 ; Degenerative disc disease, lumbar M51.36 ; Diabetes E11.9 and Gastritis K29.70 [place] [id number] [place] [address] 18168- 8076 Sep, [place] [id number] [place] [address] 77514- 7148 Aug, [place] [id number] [place] [address] 31215- 8528 Jul, Major depressive disorder, recurrent episode, moderate F33.1 [place] [id number] [place] [address] 01672- 9085 Jul, Unspecified episodic mood disorder F39 [place] [id number] [place] [address] 17014- 2528 Jul, [place] [id number] [place] [address] 06100- 0084 Jul, [place] [id number] [place] [address] 87570- 9476 Jul, [place] [id number] [place] [address] 98879- 3325 Jul, Type 2 diabetes mellitus with hyperglycemia E11.65 ; Diabetic neuropathy E11.40 ; Degenerative disc disease, lumbar M51.36 ; HTN ( hypertension) I10 ; Gastritis K29.70 ; Hyperlipidemia E78.5 and CAD (coronary artery disease) I25.10 [place] [id number] [place] [address] 67357- 7297 Jul, Severe episode of recurrent major depressive disorder, without psychotic features F33.2 [place] [id number] [place] [address] 48547- 8689 Jul, [place] [id number] [place] [address] 09217- 8279 Jun, [place] [id number] [place] [address] 67766- 6272 Jun, Diabetes E11.9 ; Diabetic neuropathy E11.40 ; Degenerative disc disease, lumbar M51.36 ; HTN (hypertension) I10 ; Gastritis K29.70 ; Hyperlipidemia E78.5 ; Unspecified episodic mood disorder F39 ; Depression F32.9 and CAD (coronary artery disease) I25.10 [place] [id number] [place] [address] 53275- 4594 Jun, [place] [id number] [place] [address] 78209- 7039 Jun, [facility] [facility] [id number] [place] [address] 33896- 9637 Jun, Diabetes E11.9 ; Diabetic neuropathy E11.40 ; Degenerative disc disease, lumbar M51.36 ; HTN (hypertension) I10 ; Gastritis K29.70 ; Chronic pain G89.29 ; Insomnia G47.00 and Unspecified episodic mood disorder F39 [facility] [id number] [place] [address] 34745- 9912 May, Diabetic neuropathy E11.40 ; Degenerative disc disease, lumbar M51.36 ; HTN (hypertension) I10 ; Gastritis K29.70 ; Hyperlipidemia E78.5 ; Chronic pain G89.29 ; Insomnia G47.00 ; Unspecified episodic mood disorder F39 ; Diabetes E11.9 ; CAD (coronary artery disease) I25.10 and H/O Gram positive sepsis Z86.19 [facility] [id number] [place] [address] 92154- 8592 May, [facility] [address] [address]- 8514 May, [facility] [id number] [place] [address] 15356- 5024 May, [facility] [id number] [place] [address] 76622- 2932 May, [facility] [id number] [place] [address] 74722- 2884 May, UTI (urinary tract infection) N39.0 ; Diabetes E11.9 ; Diabetic neuropathy E11.40 ; Hyperlipidemia E78.5 and Chronic pain G89.29 [facility] [id number] [place] [address] 56386- 3298 May, Insomnia, unspecified G47.00 and Chronic pain G89.29 [facility] [id number] [place] [address] 48915- 5915 May, [facility] [address] [place] [address] 02942- 1211 May, [facility] [id number] [place] [address] 38028- 0570 May, [facility] [address] [place] [address] 90292- 4938 Apr, Insomnia, unspecified G47.00 ; Chronic pain G89.29 and Unspecified episodic mood disorder F39 [facility] [address] [address]- 5206 Apr, Unspecified episodic mood disorder F39 [facility] [id number] [place] [address]- [address] Apr, Major depression F32.9 [facility] [id number] [address] Apr, [facility] [id number] [place] [address]- 2454 Apr, Diabetes E11.9 ; Diabetic neuropathy E11.40 ; Degenerative disc disease, lumbar M51.36 ; HTN (hypertension) I10 ; Gastritis K29.70 ; Hyperlipidemia E78.5 ; Chronic pain G89.29 and Insomnia G47.00 [place] [id number] [place] [address]- [address]381 Mar, [address] [address] Mar, [address] [address] Mar, [address] [address] Mar, Diabetes mellitus 250.00 ; Diabetic neuropathy 250.60 ; CAD (coronary artery disease) 414.00 ; Degenerative disc disease, lumbar 722.52 ; Gastritis 535.50 and Insomnia 780.52 [place] [id number] [place] [address]- 4662 Mar, Diabetes mellitus 250.00 ; Degenerative disc disease, lumbar 722.52 ; Essential hypertension 401.9 ; Gastritis 535.50 and Chronic pain 338.29 [place] [id number] [place] [address]- [address] Feb, [place] [id number] [place] [address]- 2373 Feb, [address] [address] Jan, [address] [address] Jan, Diabetes mellitus 250.00 ; Diabetic neuropathy 250.60 ; Degenerative disc disease, lumbar 722.52 ; CAD (coronary artery disease) 414.00 ; Essential hypertension 401.9 ; Gastritis 535.50 ; Hyperlipidemia 272.4 and Distal end of ulna fracture, closed 813.43 [place] [id number] [address] 29 Dec, 2014 Wrist pain 719.43 and Diabetes mellitus 250.00 [facility] [id number] [place] [address] 26 May, 2010 [facility] [address] [facility] [id number] [address] 10 Dec, 2009 [facility] [address] [facility] [id number] [place] [address], [place] [address] November, [facility] [facility] [address] [facility] [id number] [place] [address] 16 Oct, 2009 [facility] [address] [facility] [id number] [place] [address], [place] [address] 17 Sep, 2009 [facility] [address] [id number] [address] Sep, [facility] [address] [id number] [address] Jun, [facility] [address] [id number] [address] Jun, [facility] [id number] [address] 14 Jun, 2009 [facility] [id number] [address] Jun, [facility] [address] [facility] [id number] [address] Jun, [facility] [address] [facility] [id number] [address] 08 Jun, 2009 [facility] [address] [facility] [id number] [place] [address] Jun, [facility] [address] [facility] [id number] [place] [address] [address] May, [facility] [id number] [address] May, [facility] [address] [id number] [address] May, [facility] [id number] [address] May, [facility] [address] [id number] [address] Apr, [facility] [id number] [address] Apr, [facility] [address] [id number] [address] Apr, [facility] [id number] [address] Mar, [facility] [address] [id number] [address] Dec, IMMUNIZATIONS No Known Immunizations SOCIAL HISTORY Never Assessed REASON FOR VISIT DM mgnt attempt PLAN OF CARE VITAL SIGNS MEDICATIONS Unknown [...]
--- OUTSIDE RECORDS SUMMARY | 2018-01-18 11:07 | XMS REPORT ---
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 Name Role Phone AMINA ARECHIGA Unavailable PROBLEMS Type Condition ICD9-CM Code KXX24-KE Code Onset Dates Condition Status SNOMED Code Problem Type 2 diabetes mellitus with hyperglycemia E11.65 Active [id number] Problem Obsessive-compulsive disorder, unspecified type F42.9 Active 482613088 Problem Major depressive disorder, recurrent episode, moderate F33.1 Active 115148312 Problem Falls frequently R29.6 Active 040572405 Problem Diabetes E11.9 Active 553313724 Problem Type 2 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 E11.49 Active 54850184 Problem History of pulmonary embolism Z86.711 Active 017070782 Problem correction 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.4 Active 020349501 Problem 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.29 Active 63494052 Problem Hyperlipidemia E78.5 Active 81177769 Problem Insomnia G47.00 Active 432014176 Problem HTN (hypertension) I10 Active 55491217 Problem Chronic pain G89.29 Active 13847568 Problem CAD (coronary artery disease) I25.10 Active 98313405 Problem Degenerative disc disease, lumbar M51.36 Active 18613882 Problem Post-traumatic stress disorder F43.10 Active 45436948 ALLERGIES No Information ENCOUNTERS Encounter Location Date Diagnosis [facility] [address], [place] [address] November, [facility] [id number] [place] [address] 14599- 6251 Sep, Diabetes E11.9 [facility] [address], [place] [address] Sep, Chronic pain G89.29 [facility] [address] [address] Sep, [facility] [id number] [place] [address] 00850- 1645 Sep, Falls frequently R29.6 ; correction 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.4 and Type 2 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 E11.49 [facility] [id number] [place] [address] 94866- 3016 Sep, [facility] [id number] [place] [address] 42685- 0923 Sep, Diabetes E11.9 [facility] [id number] [place] [address] 03005- 2462 Aug, [facility] [id number] [place] [address] 35587- 6726 Aug, Chronic pain G89.29 [facility] [id number] [place] [address] 24497- 8442 Aug, [facility] [id number] [place] [address] 45370- 0612 Aug, Chronic pain G89.29 [facility] [id number] [place] [address] 43428- 2142 Jul, [facility] [address] [place] [address] 96775- 2024 Jul, Diabetes E11.9 and 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.29 [facility] [address], [place] [address] 3[address] Jul, 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.29 [facility] [address] [address] 2629 Jul, [facility] [address], [place] [address] 5339 Jul, Chronic pain G89.29 [facility] [id number] [place] [address] 30134- 0789 Jun, Diabetes E11.9 [facility] [id number] [place] [address] 18361- 8587 Jun, Chronic pain G89.29 [facility] [id number] [place] [address] 18912- 2329 13 Jun, 2017 Diabetes E11.9 ; Atypical chest pain R07.89 ; correction 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.4 ; 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.29 ; Type 2 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 E11.49 ; History of pulmonary embolism Z86.711 and History of CVA (cerebrovascular accident) Z86.73 [facility] [id number] [place] [address] 70783- 4495 May, [facility] [id number] [place] [address] 53383- 0591 May, Chronic pain G89.29 [facility] [id number] [place] [address] 00488- 7839 Apr, Chronic pain G89.29 [facility] [id number] [place] [address] 13849- 5296 Apr, [facility] [id number] [place] [address] 62222- 5826 Mar, Chronic pain G89.29 [facility] [id number] [place] [address] 58454- 6407 18 Mar, 2017 Diabetes E11.9 [facility] [id number] [place] [address] 10655- 7534 07 Mar, 2017 [facility] [id number] [place] [address] 43491- 2969 Mar, Degenerative disc disease, lumbar M51.36 [facility] [id number] [place] [address] 93076- 5513 Feb, Diabetes E11.9 [facility] [address] [place] [address]- 3939 23 Feb, 2017 Diabetes E11.9 [facility] [id number] [place] [address] 16296- 5686 16 Feb, 2017 Diabetes E11.9 ; HTN (hypertension) I10 ; Diabetic neuropathy E11.40 and Leg cramps R25.2 [facility] [id number] [place] [address] 07894- 4441 15 Feb, 2017 Sprain of calcaneofibular ligament of right ankle, subsequent encounter S93.411D ; Major depressive disorder, recurrent episode, moderate F33.1 ; Diabetes E11.9 ; Hyperlipidemia E78.5 ; Post-traumatic stress disorder F43.10 and Other irritable bowel syndrome K58.8 [facility] [id number] [place] [address] 21809- 0392 Feb, Major depressive disorder, recurrent episode, moderate F33.1 ; Post-traumatic stress disorder F43.10 and Obsessive-compulsive disorder , unspecified type F42.9 [facility] [id number] [place] [address] 06136- 5925 Feb, [facility] [id number] [place] [address] 73241- 2879 Feb, Post-traumatic stress disorder F43.10 and Major depressive disorder, recurrent, moderate F33.1 [facility] [address] [place] [address] 72088- 0400 Feb, Diabetes E11.9 [facility] [id number] [place] [address] 65997- 3289 Feb, Degenerative disc disease, lumbar M51.36 [facility] [id number] [place] [address] 81464- 0683 Feb, Post-traumatic stress disorder F43.10 and Major depressive disorder, recurrent, moderate F33.1 [facility] [address] [place] [address] 33640- 5461 Feb, [facility] [address] [address] 2546 Feb, Diabetes E11.9 [facility] [address], [place] [address] 2546 Jan, Diabetes E11.9 [facility] [address] [facility] [place] [id number] [address] 2546 Jan, Post-traumatic stress disorder F43.10 and Major depressive disorder, recurrent, moderate F33.1 [facility] [address], [place] [address] 2546 Jan, Diabetes E11.9 [facility] [id number] [place] [address] 31595 2546 Jan, Diabetes E11.9 [facility] [address] [place] [address] 06571- 4726 Jan, [facility] [address] [place] [address] 51509- 9176 Jan, [facility] [address], [place] [address] 2547 Jan, Post-traumatic stress disorder F43.10 and Major depressive disorder, recurrent, moderate F33.1 [facility] [address], [place] [address]- 2546 Jan, [facility] [address], [place] [address] 2546 Jan, Major depressive disorder, recurrent episode, moderate F33.1 ; Post-traumatic stress disorder F43.10 and Obsessive-compulsive disorder , unspecified type F42.9 [facility] [address], [place] [address] 2546 Jan, [facility] [address], [place] [address]- 2546 Jan, Diabetes E11.9 [facility] [address] [address] Jan, [facility] [address], [place] [address]- 0936 Jan, Sprain of calcaneofibular ligament of right ankle, subsequent encounter S93.411D [facility] [address] [place] [address] 29231- 8864 13 Jan, 2017 Post-traumatic stress disorder F43.10 and Major depressive disorder, recurrent, moderate F33.1 [facility] [id number] [place] [address] 88425- 2652 07 Jan, 2017 Diabetes E11.9 [facility] [id number] [place] [address] 04692- 3788 16 Dec, 2016 Major depressive disorder, recurrent episode, moderate F33.1 ; Post-traumatic stress disorder F43.10 and Obsessive-compulsive disorder , unspecified type F42.9 [facility] [id number] [place] [address] 71169- 4291 15 Dec, 2016 [facility] [id number] [place] [address] 76301- 6748 14 Dec, 2016 Sprain of calcaneofibular ligament of right ankle, subsequent encounter S93.411D [facility] [address] [place] [address] 96211- 2546 13 Dec, 2016 Post-traumatic stress disorder F43.10 and Major depressive disorder, recurrent, moderate F33.1 [facility] [address] [place] [address] 42657- 9129 13 Dec, 2016 Sprain of calcaneofibular ligament of right ankle, subsequent encounter S93.411D [facility] [id number] [place] [address] 51011- 0149 12 Dec, 2016 Hyperlipidemia E78.5 [facility] [id number] [place] [address] 42658- 7322 08 Dec, 2016 [facility] [address] [place] [address] 31196- 4890 07 Dec, 2016 Diabetes E11.9 ; Diabetic neuropathy E11.40 ; Degenerative disc disease, lumbar M51.36 ; Hyperlipidemia E78.5 ; Insomnia G47.00 ; CAD ( coronary artery disease) I25.10 ; Major depressive disorder, recurrent, moderate F33.1 ; Post-traumatic stress disorder F43.10 and Other irritable bowel syndrome K58.8 [facility] [address] 81372- 7936 November, Diabetic neuropathy E11.40 and Hyperlipidemia E78.5 [facility] [address] 48044- 6977 November, Degenerative disc disease, lumbar M51.[address] 44277- 5701 Oct, [address] 18926- 4309 Oct, Degenerative disc disease, lumbar M51.36 [facility] [address] 41687- 2140 Sep, Degenerative disc disease, lumbar M51.36 and HTN ( hypertension) I10 [address] 19158- 6342 Sep, Diabetic neuropathy E11.40 ; HTN (hypertension) I10 ; Degenerative disc disease, lumbar M51.36 ; Hyperlipidemia E78.5 ; Insomnia G47.00 ; CAD (coronary artery disease) I25.10 and Diabetes E11.9 [facility] [id number] [place] [address] 35733- 4821 Aug, [address] 95785- 3509 Aug, Type 2 diabetes mellitus with hyperglycemia E11.65 [facility] [id number] [place] [address] 61229- 3974 Aug, [address] 72539- 5310 Jul, [facility] [address], [place] [address]- 1579 Jul, [facility] [address] [place] [address] 747901- 8648 Jun, [facility] [address], [place] [address]- 5264 Jun, [facility] [id number] [place] [address] 243168- 2237 Jun, [facility] [address] [place] [address] 438542- 2429 Jun, [facility] [address] [place] [address] 558925- 7070 May, Major depressive disorder, recurrent episode, moderate F33.1 and Post-traumatic stress disorder F43.10 [facility] [address], [place] [address]- 5746 May, Major depressive disorder, recurrent episode, moderate F33.1 and Post-traumatic stress disorder F43.10 [facility] [address] [place] [address] 31729- 0247 May, Diabetes E11.9 ; Diabetic neuropathy E11.40 ; HTN ( hypertension) I10 ; Gastritis K29.70 ; Hyperlipidemia E78.5 ; Insomnia G47.00 and Major depressive disorder, recurrent, moderate F33.1 [facility] [address], [place] [address]- 9578 May, Major depressive disorder, recurrent episode, moderate F33.1 [facility] [address], [place] [address]- 3348 Apr, [facility] [address] [place] [address] 482533- 2306 Apr, Major depressive disorder, recurrent episode, moderate F33.1 and Post-traumatic stress disorder F43.10 [facility] [address], [place] [address]- 3909 Apr, Diabetes E11.9 ; Diabetic neuropathy E11.40 ; Degenerative disc disease, lumbar M51.36 ; HTN (hypertension) I10 ; Hyperlipidemia E78.5 ; Chronic pain G89.29 ; CAD (coronary artery disease) I25.10 and Major depressive disorder, recurrent, moderate F33.1 [facility] [id number] [place] [address] 89998- 5110 Apr, Major depressive disorder, recurrent episode, moderate F33.1 and Post-traumatic stress disorder F43.10 [facility] [id number] [place] [address] 22844- 8095 Apr, Major depressive disorder, recurrent episode, moderate F33.1 and Post-traumatic stress disorder F43.10 [facility] [id number] [place] [address] 21893- 6760 Apr, Major depressive disorder, recurrent episode, moderate F33.1 and Unspecified episodic mood disorder F39 [facility] [id number] [place] [address] 13134- 6458 Apr, Chronic pain G89.29 ; Diabetic neuropathy E11.40 ; HTN ( hypertension) I10 ; Insomnia G47.00 ; CAD (coronary artery disease) I25.10 ; Hyperlipidemia E78.5 ; Degenerative disc disease, lumbar M51.36 ; Diabetes E11.9 and Gastritis K29.70 [facility] [id number] [place] [address] 44206- 3787 Sep, [facility] [id number] [place] [address] 27538- 9084 Aug, [facility] [id number] [place] [address] 76118- 6149 Jul, Major depressive disorder, recurrent episode, moderate F33.1 [facility] [id number] [place] [address] 57448- 6139 Jul, Unspecified episodic mood disorder F39 [facility] [id number] [place] [address] 61902- 4598 Jul, [facility] [id number] [place] [address] 93344- 4107 Jul, [facility] [address] 98799- 7323 Jul, [address] 23123- 0957 Jul, Type 2 diabetes mellitus with hyperglycemia E11.65 ; Diabetic neuropathy E11.40 ; Degenerative disc disease, lumbar M51.36 ; HTN ( hypertension) I10 ; Gastritis K29.70 ; Hyperlipidemia E78.5 and CAD (coronary artery disease) I25.[address] 74318- 7164 Jul, Severe episode of recurrent major depressive disorder, without psychotic features F33.[address] 24076- 2609 Jul, [address] 81632- 1301 Jun, [address] 52023- 5638 Jun, Diabetes E11.9 ; Diabetic neuropathy E11.40 ; Degenerative disc disease, lumbar M51.36 ; HTN (hypertension) I10 ; Gastritis K29.70 ; Hyperlipidemia E78.5 ; Unspecified episodic mood disorder F39 ; Depression F32.9 and CAD (coronary artery disease) I25.10 [facility] [id number] [place] [address] 25956- 6866 Jun, [address] 14781- 7745 Jun, [address] 63471- 9096 Jun, Diabetes E11.9 ; Diabetic neuropathy E11.40 ; Degenerative disc disease, lumbar M51.36 ; HTN (hypertension) I10 ; Gastritis K29.70 ; Chronic pain G89.29 ; Insomnia G47.00 and Unspecified episodic mood disorder F39 [facility] [id number] [place] [address] 50865- 8764 May, Diabetic neuropathy E11.40 ; Degenerative disc disease, lumbar M51.36 ; HTN (hypertension) I10 ; Gastritis K29.70 ; Hyperlipidemia E78.5 ; Chronic pain G89.29 ; Insomnia G47.00 ; Unspecified episodic mood disorder F39 ; Diabetes E11.9 ; CAD (coronary artery disease) I25.10 and H/O Gram positive sepsis Z86.19 [facility] [id number] [place] [address] 55142- 7107 May, [facility] [address] 50253- 7288 May, [facility] [id number] [place] [address] 06276- 8846 May, [facility] [id number] [place] [address] 22328- 2031 May, [facility] [id number] [place] [address] 78489- 2806 May, UTI (urinary tract infection) N39.0 ; Diabetes E11.9 ; Diabetic neuropathy E11.40 ; Hyperlipidemia E78.5 and Chronic pain G89.29 [facility] [id number] [place] [address] 28827- 0329 May, Insomnia, unspecified G47.00 and Chronic pain G89.29 [facility] [id number] [place] [address] 04216- 8010 May, [facility] [id number] [place] [address] 79477- 6398 May, [facility] [id number] [place] [address] 15618- 5896 May, [facility] [id number] [place] [address] 39888- 3637 Apr, Insomnia, unspecified G47.00 ; Chronic pain G89.29 and Unspecified episodic mood disorder F39 [facility] [id number] [place] [address] 63601- 3921 Apr, Unspecified episodic mood disorder F39 [facility] [id number] [place] [address] 10781- 2178 Apr, Major depression F32.9 [facility] [address] 26341- 3252 Apr, [facility] [id number] [place] [address] 66929- 2886 Apr, Diabetes E11.9 ; Diabetic neuropathy E11.40 ; Degenerative disc disease, lumbar M51.36 ; HTN (hypertension) I10 ; Gastritis K29.70 ; Hyperlipidemia E78.5 ; Chronic pain G89.29 and Insomnia G47.00 [facility] [address] 86429- 8447 Mar, [facility] [id number] [place] [address] 82476- 2573 Mar, [facility] [address] 19135- 9922 Mar, [facility] [id number] [place] [address] 86371- 3175 16 Mar, 2015 Diabetes mellitus 250.00 ; Diabetic neuropathy 250.60 ; CAD (coronary artery disease) 414.00 ; Degenerative disc disease, lumbar 722.52 ; Gastritis 535.50 and Insomnia 780.52 [facility] [id number] [place] [address] 87591- 6469 Mar, Diabetes mellitus 250.00 ; Degenerative disc disease, lumbar 722.52 ; Essential hypertension 401.9 ; Gastritis 535.50 and Chronic pain 338.29 [facility] [id number] [place] [address] 06773- 4476 Feb, [facility] [address] 05281- 2546 Feb, [facility] [address], [place] [address]- 7479 Jan, [facility] [id number] [place] [address] 26549- 5476 Jan, Diabetes mellitus 250.00 ; Diabetic neuropathy 250.60 ; Degenerative disc disease, lumbar 722.52 ; CAD (coronary artery disease) 414.00 ; Essential hypertension 401.9 ; Gastritis 535.50 ; Hyperlipidemia 272.4 and Distal end of ulna fracture, closed 813.43 [facility] [id number] [place] [address] 90673- 5167 Dec, Wrist pain 719.43 and Diabetes mellitus 250.00 [facility] [id number] [place] [address] 73295- 1486 May, [facility] [id number] [place] [address] 47766- 3309 Dec, [facility] [id number] [place] [address] 86092- 4876 November, [facility] [id number] [place] [address] 02627- 0396 16 Oct, 2009 [facility] [address] [place] [address] 19897- 7136 17 Sep, 2009 [facility] [address] [place] [address] 51679- 6616 Sep, [facility] [address] [place] [address] 89357- 2866 Jun, [facility] [id number] [place] [address] 74811- 5706 Jun, [facility] [address] [address]- 2546 14 Jun, 2009 [facility] [address] [place] [address] 00943- 1116 Jun, [facility] [address], [place] [address]- 3947 Jun, [facility] [address], [place] [address]- 6546 Jun, [facility] [address], [place] [address]- 0486 Jun, [facility] [id number] [place] [address] 81162- 1173 May, [facility] [address], [place] [address]- 0479 May, [facility] [id number] [place] [address] 40511- 9596 May, [facility] [address], [place] [address]- 8649 May, [facility] [address], [place] [address]- 3536 Apr, [facility] [address]- 6984 Apr, [facility] [address] [place] [address]- 4562 Apr, [facility] [address] [place] [address]- 3185 Mar, [facility] [address], [place] [address]- 7241 Dec, IMMUNIZATIONS No Known Immunizations SOCIAL HISTORY Never Assessed REASON FOR VISIT Follow-up PTSD/Depression PLAN OF CARE Activity Details Follow Up 2 Weeks Reason: Follow-up VITAL SIGNS MEDICATIONS Unknown Medications RESULTS No Results PROCEDURES Procedure Date Ordered Result Body Site Psychotherapy, patient &/family, 45 minutes, established patient January 29, 2017 INSTRUCTIONS MEDICATIONS ADMINISTERED No Known Medications [...]
--- OUTSIDE RECORDS SUMMARY | 2018-01-18 11:07 | XMS REPORT ---
Author Author AMINA ARECHIGA [facility] Address [address] [place] [address] Care Team Providers Care Social Media Executive Name Role Phone AMINA ARECHIGA Unavailable PROBLEMS Type Condition ICD9-CM Code YHW09-XG Code Onset Dates Condition Status SNOMED Code Problem Type 2 diabetes mellitus with hyperglycemia E11.65 Active 700203347814641 Problem Obsessive-compulsive disorder, unspecified type F42.9 Active 218322886 Problem Major depressive disorder, recurrent episode, moderate F33.1 Active 211801155 Problem Falls frequently R29.6 Active 249535537 Problem Diabetes E11.9 Active 913537191 Problem Type 2 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 E11.49 Active 78062482 Problem History of pulmonary embolism Z86.711 Active 162433965 Problem senior care 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.4 Active 856356200 Problem 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.29 Active 23250885 Problem Hyperlipidemia E78.5 Active 08341453 Problem Insomnia G47.00 Active 209286752 Problem HTN (hypertension) I10 Active 66370528 Problem Chronic pain G89.29 Active 40791198 Problem CAD (coronary artery disease) I25.10 Active 73202749 Problem Degenerative disc disease, lumbar M51.36 Active 04002612 Problem Post-traumatic stress disorder F43.10 Active 99952384 ALLERGIES No Information ENCOUNTERS Encounter Location Date Diagnosis [facility] [address], [place] [address] November, [facility] [id number] [place] [address] 60899- 2717 Sep, Diabetes E11.9 [facility] [address], [place] [address] Sep, Chronic pain G89.29 [facility] [id number] [address] Sep, [facility] [id number] [place] [address] 79609- 5715 Sep, Falls frequently R29.6 ; senior care 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.4 and Type 2 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 E11.49 [facility] [id number] [place] [address] 77941- 0055 Sep, [facility] [id number] [place] [address] 42599- 8710 Sep, Diabetes E11.9 [facility] [id number] [place] [address] 28588- 7484 Aug, [facility] [id number] [place] [address] 29567- 8000 Aug, Chronic pain G89.29 [facility] [id number] [place] [address] 92640- 6797 Aug, [facility] [id number] [place] [address] 38991- 6070 Aug, Chronic pain G89.29 [facility] [id number] [place] [address] 68172- 6065 Jul, [facility] [id number] [place] [address] 45326- 3416 Jul, Diabetes E11.9 and 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.29 [facility] [address], [place] [address] 9996 Jul, 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.29 [facility] [id number] [address] Jul, [facility] [address], [place] [address] 2135 Jul, Chronic pain G89.29 [facility] [id number] [place] [address] 53812- 8133 Jun, Diabetes E11.9 [facility] [id number] [place] [address] 51427- 7246 Jun, Chronic pain G89.29 [facility] [id number] [place] [address] 82698- 4548 13 Jun, 2017 Diabetes E11.9 ; Atypical chest pain R07.89 ; senior care 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.4 ; 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.29 ; Type 2 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 E11.49 ; History of pulmonary embolism Z86.711 and History of CVA (cerebrovascular accident) Z86.73 [facility] [id number] [place] [address] 94617- 0083 May, [facility] [id number] [place] [address] 63604- 4228 May, Chronic pain G89.29 [facility] [id number] [place] [address] 20749- 3952 Apr, Chronic pain G89.29 [facility] [id number] [place] [address] 93719- 6921 Apr, [facility] [id number] [place] [address] 34031- 9732 Mar, Chronic pain G89.29 [facility] [id number] [place] [address] 58900- 2891 18 Mar, 2017 Diabetes E11.9 [facility] [id number] [place] [address] 93014- 0855 07 Mar, 2017 [facility] [id number] [place] [address] 98859- 3610 Mar, Degenerative disc disease, lumbar M51.36 [facility] [id number] [place] [address] 42053- 0509 Feb, Diabetes E11.9 [facility] [address] [place] [address]- 3283 23 Feb, 2017 Diabetes E11.9 [facility] [id number] [place] [address] 54769- 6618 16 Feb, 2017 Diabetes E11.9 ; HTN (hypertension) I10 ; Diabetic neuropathy E11.40 and Leg cramps R25.2 [facility] [id number] [place] [address] 48283- 6059 15 Feb, 2017 Sprain of calcaneofibular ligament of right ankle, subsequent encounter S93.411D ; Major depressive disorder, recurrent episode, moderate F33.1 ; Diabetes E11.9 ; Hyperlipidemia E78.5 ; Post-traumatic stress disorder F43.10 and Other irritable bowel syndrome K58.8 [facility] [id number] [place] [address] 38466- 9211 Feb, Major depressive disorder, recurrent episode, moderate F33.1 ; Post-traumatic stress disorder F43.10 and Obsessive-compulsive disorder , unspecified type F42.9 [facility] [id number] [place] [address] 34329- 8539 Feb, [facility] [id number] [place] [address] 09070- 7788 Feb, Post-traumatic stress disorder F43.10 and Major depressive disorder, recurrent, moderate F33.1 [facility] [address] [place] [address] 37636- 2496 Feb, Diabetes E11.9 [facility] [id number] [place] [address] 14688- 0294 Feb, Degenerative disc disease, lumbar M51.36 [facility] [id number] [place] [address] 87964- 6642 Feb, Post-traumatic stress disorder F43.10 and Major depressive disorder, recurrent, moderate F33.1 [facility] [id number] [place] [address] 89832- 3318 Feb, [facility] [id number] [address] 2546 Feb, Diabetes E11.9 [facility] [address], [place] [address] 2546 Jan, Diabetes E11.9 [facility] [address] [facility] [id number] [address] 2546 Jan, Post-traumatic stress disorder F43.10 and Major depressive disorder, recurrent, moderate F33.1 [facility] [address], [place] [address] 2546 Jan, Diabetes E11.9 [facility] [id number] [place] [address] 56154 2546 Jan, Diabetes E11.9 [facility] [id number] [place] [address] 08636- 3136 Jan, [facility] [id number] [place] [address] 95378- 9096 Jan, [facility] [address], [place] [address] 2548 Jan, Post-traumatic stress disorder F43.10 and Major depressive disorder, recurrent, moderate F33.1 [facility] [address], [place] [address]- 2546 Jan, [facility] [address], [place] [address] 2546 Jan, Major depressive disorder, recurrent episode, moderate F33.1 ; Post-traumatic stress disorder F43.10 and Obsessive-compulsive disorder , unspecified type F42.9 [facility] [address], [place] [address] 2546 Jan, [facility] [address], [place] [address]- 2546 Jan, Diabetes E11.9 [facility] [address] [address] Jan, [facility] [address], [place] [address]- 6663 Jan, Sprain of calcaneofibular ligament of right ankle, subsequent encounter S93.411D [facility] [id number] [place] [address] 20488- 5012 13 Jan, 2017 Post-traumatic stress disorder F43.10 and Major depressive disorder, recurrent, moderate F33.1 [facility] [id number] [place] [address] 56538- 8225 07 Jan, 2017 Diabetes E11.9 [facility] [id number] [place] [address] 83541- 4745 16 Dec, 2016 Major depressive disorder, recurrent episode, moderate F33.1 ; Post-traumatic stress disorder F43.10 and Obsessive-compulsive disorder , unspecified type F42.9 [facility] [id number] [place] [address] 60147- 3047 15 Dec, 2016 [facility] [id number] [place] [address] 21037- 4251 14 Dec, 2016 Sprain of calcaneofibular ligament of right ankle, subsequent encounter S93.411D [facility] [id number] [place] [address] 52352- 7250 13 Dec, 2016 Post-traumatic stress disorder F43.10 and Major depressive disorder, recurrent, moderate F33.1 [facility] [id number] [place] [address] 57255- 6777 13 Dec, 2016 Sprain of calcaneofibular ligament of right ankle, subsequent encounter S93.411D [facility] [id number] [place] [address] 38198- 3241 12 Dec, 2016 Hyperlipidemia E78.5 [facility] [id number] [place] [address] 82444- 0480 08 Dec, 2016 [facility] [id number] [place] [address] 48498- 0121 07 Dec, 2016 Diabetes E11.9 ; Diabetic neuropathy E11.40 ; Degenerative disc disease, lumbar M51.36 ; Hyperlipidemia E78.5 ; Insomnia G47.00 ; CAD ( coronary artery disease) I25.10 ; Major depressive disorder, recurrent, moderate F33.1 ; Post-traumatic stress disorder F43.10 and Other irritable bowel syndrome K58.8 [facility] [address] 36652- 8513 November, Diabetic neuropathy E11.40 and Hyperlipidemia E78.5 [facility] [address] 20144- 7947 November, Degenerative disc disease, lumbar M51.[address] 85718- 1650 Oct, [address] 46902- 6393 Oct, Degenerative disc disease, lumbar M51.36 [facility] [address] 73719- 2953 Sep, Degenerative disc disease, lumbar M51.36 and HTN ( hypertension) I10 [address] 31224- 1972 Sep, Diabetic neuropathy E11.40 ; HTN (hypertension) I10 ; Degenerative disc disease, lumbar M51.36 ; Hyperlipidemia E78.5 ; Insomnia G47.00 ; CAD (coronary artery disease) I25.10 and Diabetes E11.9 [facility] [id number] [place] [address] 25902- 8334 Aug, [address] 94150- 1083 Aug, Type 2 diabetes mellitus with hyperglycemia E11.65 [facility] [id number] [place] [address] 76296- 0427 Aug, [address] 81020- 4311 Jul, [facility] [address], [place] [address]- 6298 Jul, [facility] [id number] [place] [address] 107926- 1136 Jun, [facility] [address], [place] [address]- 6296 Jun, [facility] [id number] [place] [address] 194448- 7903 Jun, [facility] [id number] [place] [address] 758196- 3725 Jun, [facility] [id number] [place] [address] 959484- 8249 May, Major depressive disorder, recurrent episode, moderate F33.1 and Post-traumatic stress disorder F43.10 [facility] [address], [place] [address]- 8545 May, Major depressive disorder, recurrent episode, moderate F33.1 and Post-traumatic stress disorder F43.10 [facility] [address] [place] [address] 26459- 7070 May, Diabetes E11.9 ; Diabetic neuropathy E11.40 ; HTN ( hypertension) I10 ; Gastritis K29.70 ; Hyperlipidemia E78.5 ; Insomnia G47.00 and Major depressive disorder, recurrent, moderate F33.1 [facility] [address], [place] [address]- 9557 May, Major depressive disorder, recurrent episode, moderate F33.1 [facility] [address], [place] [address]- 3324 Apr, [facility] [id number] [place] [address] 094126- 8010 Apr, Major depressive disorder, recurrent episode, moderate F33.1 and Post-traumatic stress disorder F43.10 [facility] [address], [place] [address]- 1615 Apr, Diabetes E11.9 ; Diabetic neuropathy E11.40 ; Degenerative disc disease, lumbar M51.36 ; HTN (hypertension) I10 ; Hyperlipidemia E78.5 ; Chronic pain G89.29 ; CAD (coronary artery disease) I25.10 and Major depressive disorder, recurrent, moderate F33.1 [facility] [id number] [place] [address] 46815- 8995 Apr, Major depressive disorder, recurrent episode, moderate F33.1 and Post-traumatic stress disorder F43.10 [facility] [id number] [place] [address] 15499- 4251 Apr, Major depressive disorder, recurrent episode, moderate F33.1 and Post-traumatic stress disorder F43.10 [facility] [id number] [place] [address] 55728- 1005 Apr, Major depressive disorder, recurrent episode, moderate F33.1 and Unspecified episodic mood disorder F39 [facility] [id number] [place] [address] 88173- 3763 Apr, Chronic pain G89.29 ; Diabetic neuropathy E11.40 ; HTN ( hypertension) I10 ; Insomnia G47.00 ; CAD (coronary artery disease) I25.10 ; Hyperlipidemia E78.5 ; Degenerative disc disease, lumbar M51.36 ; Diabetes E11.9 and Gastritis K29.70 [facility] [id number] [place] [address] 24172- 8698 Sep, [facility] [id number] [place] [address] 19769- 5081 Aug, [facility] [id number] [place] [address] 39669- 5327 Jul, Major depressive disorder, recurrent episode, moderate F33.1 [facility] [id number] [place] [address] 32385- 5912 Jul, Unspecified episodic mood disorder F39 [facility] [id number] [place] [address] 25097- 0462 Jul, [facility] [id number] [place] [address] 65308- 4591 Jul, [facility] [address] 41107- 7557 Jul, [address] 89884- 7602 Jul, Type 2 diabetes mellitus with hyperglycemia E11.65 ; Diabetic neuropathy E11.40 ; Degenerative disc disease, lumbar M51.36 ; HTN ( hypertension) I10 ; Gastritis K29.70 ; Hyperlipidemia E78.5 and CAD (coronary artery disease) I25.[address] 49963- 2324 Jul, Severe episode of recurrent major depressive disorder, without psychotic features F33.[address] 12775- 8010 Jul, [address] 54340- 5110 Jun, [address] 94882- 5056 Jun, Diabetes E11.9 ; Diabetic neuropathy E11.40 ; Degenerative disc disease, lumbar M51.36 ; HTN (hypertension) I10 ; Gastritis K29.70 ; Hyperlipidemia E78.5 ; Unspecified episodic mood disorder F39 ; Depression F32.9 and CAD (coronary artery disease) I25.10 [facility] [id number] [place] [address] 63645- 0228 Jun, [address] 36963- 8393 Jun, [address] 77782- 7703 Jun, Diabetes E11.9 ; Diabetic neuropathy E11.40 ; Degenerative disc disease, lumbar M51.36 ; HTN (hypertension) I10 ; Gastritis K29.70 ; Chronic pain G89.29 ; Insomnia G47.00 and Unspecified episodic mood disorder F39 [facility] [id number] [place] [address] 73890- 0988 May, Diabetic neuropathy E11.40 ; Degenerative disc disease, lumbar M51.36 ; HTN (hypertension) I10 ; Gastritis K29.70 ; Hyperlipidemia E78.5 ; Chronic pain G89.29 ; Insomnia G47.00 ; Unspecified episodic mood disorder F39 ; Diabetes E11.9 ; CAD (coronary artery disease) I25.10 and H/O Gram positive sepsis Z86.19 [facility] [id number] [place] [address] 10425- 8746 May, [facility] [address] 51420- 9001 May, [facility] [id number] [place] [address] 28588- 6232 May, [facility] [id number] [place] [address] 98129- 7794 May, [facility] [id number] [place] [address] 23973- 6656 May, Diabetes E11.9 ; Chronic pain G89.29 ; UTI (urinary tract infection) N39.0 ; Hyperlipidemia E78.5 and Diabetic neuropathy E11.40 [facility] [id number] [place] [address] 44978- 1621 May, Insomnia, unspecified G47.00 and Chronic pain G89.29 [facility] [id number] [place] [address] 23867- 9386 May, [facility] [id number] [place] [address] 84545- 5501 May, [facility] [id number] [place] [address] 70090- 5543 May, [facility] [id number] [place] [address] 13072- 3333 Apr, Insomnia, unspecified G47.00 ; Chronic pain G89.29 and Unspecified episodic mood disorder F39 [facility] [id number] [place] [address] 93044- 5486 Apr, Unspecified episodic mood disorder F39 [facility] [id number] [place] [address] 05591- 6059 Apr, Major depression F32.9 [facility] [address] 16724- 8340 Apr, [facility] [id number] [place] [address] 04999- 8002 Apr, Diabetes E11.9 ; Diabetic neuropathy E11.40 ; Degenerative disc disease, lumbar M51.36 ; HTN (hypertension) I10 ; Gastritis K29.70 ; Hyperlipidemia E78.5 ; Chronic pain G89.29 and Insomnia G47.00 [facility] [address] 60370- 6105 Mar, [facility] [id number] [place] [address] 32768- 3758 Mar, [facility] [address] 16390- 4809 Mar, [facility] [id number] [place] [address] 84810- 7115 16 Mar, 2015 Diabetes mellitus 250.00 ; Diabetic neuropathy 250.60 ; CAD (coronary artery disease) 414.00 ; Degenerative disc disease, lumbar 722.52 ; Gastritis 535.50 and Insomnia 780.52 [facility] [id number] [place] [address] 50465- 9988 Mar, Diabetes mellitus 250.00 ; Degenerative disc disease, lumbar 722.52 ; Essential hypertension 401.9 ; Gastritis 535.50 and Chronic pain 338.29 [facility] [id number] [place] [address] 06530- 4814 Feb, [facility] [address] 96054- 2546 Feb, [facility] [address], [place] [address]- 7727 Jan, [facility] [id number] [place] [address] 90358- 8726 Jan, Diabetes mellitus 250.00 ; Diabetic neuropathy 250.60 ; Degenerative disc disease, lumbar 722.52 ; CAD (coronary artery disease) 414.00 ; Essential hypertension 401.9 ; Gastritis 535.50 ; Hyperlipidemia 272.4 and Distal end of ulna fracture, closed 813.43 [facility] [id number] [place] [address] 86026- 6454 Dec, Wrist pain 719.43 and Diabetes mellitus 250.00 [facility] [id number] [place] [address] 02757- 3596 May, [facility] [id number] [place] [address] 69386- 5668 Dec, [facility] [id number] [place] [address] 01807- 3266 November, [facility] [id number] [place] [address] 06588- 4816 16 Oct, 2009 [facility] [id number] [place] [address] 61224- 3676 17 Sep, 2009 [facility] [id number] [place] [address] 67209- 5246 Sep, [facility] [id number] [place] [address] 93081- 3181 Jun, [facility] [id number] [place] [address] 43376- 7926 Jun, [facility] [id number] [address]- 2546 14 Jun, 2009 [facility] [id number] [place] [address] 04090- 5926 Jun, [facility] [address], [place] [address]- 0139 Jun, [facility] [address] [address]- 7605 Jun, [facility] [address] [address]- 7956 Jun, [facility] [id number] [place] [address] 22942- 5715 May, [facility] [address] [address]- 4938 May, [facility] [id number] [place] [address] 32041- 0659 May, [facility] [address] [address]- 2463 May, [facility] [address] [address]- 7013 Apr, [facility] [address] 0064 Apr, [facility] [address], [place] [address]- 4190 Apr, [facility] [address] [address]- 8097 Mar, [facility] [address], [place] [address]- 5572 Dec, IMMUNIZATIONS No Known Immunizations SOCIAL HISTORY Never Assessed REASON FOR VISIT Follow-up PTSD/Depression PLAN OF CARE Activity Details Follow Up 1 Week Reason: Follow-up VITAL SIGNS MEDICATIONS Unknown Medications RESULTS No Results PROCEDURES Procedure Date Ordered Result Body Site Psychotherapy, patient &/family, 45 minutes, established patient February 11, 2017 INSTRUCTIONS MEDICATIONS ADMINISTERED No Known Medications [...]
--- OUTSIDE RECORDS SUMMARY | 2018-01-18 11:08 | XMS REPORT ---
Author Author HARITHA GARNER Organization [facility] Address [address] [place] [address] Care Team Providers Care English Adjunct Faculty Name Role Phone HARITHA GARNER Unavailable PROBLEMS Type Condition ICD9-CM Code ZSN27-AT Code Onset Dates Condition Status SNOMED Code Problem Type 2 diabetes mellitus with hyperglycemia E11.65 Active [id number] Problem Obsessive-compulsive disorder, unspecified type F42.9 Active 752004199 Problem Major depressive disorder, recurrent episode, moderate F33.1 Active 554045264 Problem Falls frequently R29.6 Active 914334463 Problem Diabetes E11.9 Active 882184729 Problem Type 2 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 E11.49 Active 64268619 Problem History of pulmonary embolism Z86.711 Active 982557258 Problem manager 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.4 Active 400542385 Problem 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.29 Active 66267201 Problem Hyperlipidemia E78.5 Active 79429462 Problem Insomnia G47.00 Active 375313245 Problem HTN (hypertension) I10 Active 32565967 Problem Chronic pain G89.29 Active 96954659 Problem CAD (coronary artery disease) I25.10 Active 96850277 Problem Degenerative disc disease, lumbar M51.36 Active 20332195 Problem Post-traumatic stress disorder F43.10 Active 26485437 ALLERGIES No Information ENCOUNTERS Encounter Location Date Diagnosis [facility] [address] [facility] [id number] [address] Dec, [facility] [id number] [address] 15 Nov, 2017 Diabetes E11.9 ; CAD (coronary artery disease) I25.10 ; Atypical chest pain R07.89 ; Type 2 diabetes mellitus with hyperglycemia E11.65 ; 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.29 ; correction 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.4 and Chronic pain G89.29 [facility] [address] [address] Oct, [facility] [address] [address] 2546 Oct, Chronic pain G89.29 [facility] [address] [place] [address] 44572- 1946 Sep, Diabetes E11.9 [facility] [id number] [place] [address] 48689 2540 Sep, Chronic pain G89.29 [facility] [id number] [place] [address] 50956- 5616 Sep, [facility] [address] [place] [address] 26037- 2914 Sep, Falls frequently R29.6 ; correction 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.4 and Type 2 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 E11.49 [facility] [address] [address] Sep, [facility] [id number] [place] [address] 84440- 5779 Sep, Diabetes E11.9 [facility] [address] [address] 7923 Aug, [facility] [address] [address] 1693 Aug, Chronic pain G89.29 [facility] [address] [address] 85[address] Aug, [facility] [id number] [place] [address] 36061- 5886 Aug, Chronic pain G89.29 [facility] [address] [address] 60[address] Jul, [facility] [address] [address] 2319 Jul, Diabetes E11.9 and 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.29 [facility] [id number] [place] [address] 38198- 2459 Jul, 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.29 [facility] [id number] [place] [address] 22966- 9713 Jul, [facility] [id number] [place] [address] 15220- 1323 Jul, Chronic pain G89.29 [facility] [id number] [place] [address] 29179- 9886 Jun, Diabetes E11.9 [facility] [id number] [place] [address] 33105- 7695 Jun, Chronic pain G89.29 [place] [address] [place] [address] 66709- 7111 Jun, Diabetes E11.9 ; Atypical chest pain R07.89 ; manager 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.4 ; 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.29 ; Type 2 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 E11.49 ; History of pulmonary embolism Z86.711 and History of CVA (cerebrovascular accident) Z86.73 [place] [address] [address] 10[address] May, [facility] [address] [place] [address] 40239- 6546 May, Chronic pain G89.29 [facility] [id number] [place] [address] 10344- 0919 Apr, Chronic pain G89.29 [facility] [address] [address] 5313 Apr, [facility] [address] [place] [address] 79566- 1590 29 Mar, 2017 Chronic pain G89.29 [facility] [address] [address] 0418 18 Mar, 2017 Diabetes E11.9 [facility] [address] [place] [address] 60583- 4219 07 Mar, 2017 [facility] [id number] [place] [address] 43083- 6688 01 Mar, 2017 Degenerative disc disease, lumbar M51.36 [facility] [facility] [id number] [place] [address] 87687- 5315 28 Feb, 2017 Diabetes E11.9 [facility] [id number] [place] [address] 68807- 9312 23 Feb, 2017 Diabetes E11.9 [facility] [id number] [place] [address] 82967- 5975 16 Feb, 2017 Diabetes E11.9 ; HTN (hypertension) I10 ; Diabetic neuropathy E11.40 and Leg cramps R25.2 [facility] [address] [place] [address] 79013- 8868 15 Feb, 2017 Sprain of calcaneofibular ligament of right ankle, subsequent encounter S93.411D ; Major depressive disorder, recurrent episode, moderate F33.1 ; Diabetes E11.9 ; Hyperlipidemia E78.5 ; Post-traumatic stress disorder F43.10 and Other irritable bowel syndrome K58.8 [facility] [id number] [place] [address] 63654- 8679 14 Feb, 2017 Major depressive disorder, recurrent episode, moderate F33.1 ; Post-traumatic stress disorder F43.10 and Obsessive-compulsive disorder , unspecified type F42.9 [place] [address] [place] [address] 21310- 8252 10 Feb, 2017 [place] [address] [place] [address] 79528- 2755 09 Feb, 2017 Post-traumatic stress disorder F43.10 and Major depressive disorder, recurrent, moderate F33.1 [facility] [address] [facility] [id number] [address] 2546 Feb, Diabetes E11.9 [facility] [address] [place] [address] 84931 2546 Feb, Degenerative disc disease, lumbar M51.36 [facility] [address] [place] [address] 17095 2546 Feb, Post-traumatic stress disorder F43.10 and Major depressive disorder, recurrent, moderate F33.1 [facility] [address] [address] 2546 Feb, [facility] [id number] [place] [address] 25940 2546 Feb, Diabetes E11.9 [facility] [id number] [place] [address] 84232 2546 Jan, Diabetes E11.9 [facility] [address] [place] [address] 25214 2546 Jan, Post-traumatic stress disorder F43.10 and Major depressive disorder, recurrent, moderate F33.1 [facility] [id number] [place] [address] 71614 2546 Jan, Diabetes E11.9 [facility] [address] [address] 2546 Jan, Diabetes E11.9 [facility] [address] [address] 2546 Jan, [facility] [address], [place] [address] 2546 Jan, [facility] [address] [place] [address] 69626 2546 Jan, Post-traumatic stress disorder F43.10 and Major depressive disorder, recurrent, moderate F33.1 [facility] [address] [address]- 9858 Jan, [facility] [address] [address]- 2900 Jan, Major depressive disorder, recurrent episode, moderate F33.1 ; Post-traumatic stress disorder F43.10 and Obsessive-compulsive disorder , unspecified type F42.9 [facility] [address] [address]- 2496 Jan, [facility] [id number] [place] [address] 17129- 7492 Jan, Diabetes E11.9 [facility] [id number] [place] [address] 61707- 5426 Jan, [facility] [id number] [place] [address] 62212- 9056 Jan, Sprain of calcaneofibular ligament of right ankle, subsequent encounter S93.411D [facility] [address] [place] [address] 67273- 1798 Jan, Post-traumatic stress disorder F43.10 and Major depressive disorder, recurrent, moderate F33.1 [place] [address] [place] [address] 01120- 0062 Jan, Diabetes E11.9 [facility] [address] [address]- 3451 16 Dec, 2016 Major depressive disorder, recurrent episode, moderate F33.1 ; Post-traumatic stress disorder F43.10 and Obsessive-compulsive disorder , unspecified type F42.9 [facility] [address] [address]- 3651 15 Dec, 2016 [facility] [address] [place] [address] 08006- 2957 14 Dec, 2016 Sprain of calcaneofibular ligament of right ankle, subsequent encounter S93.411D [facility] [address] [place] [address] 49311- 6392 Dec, Post-traumatic stress disorder F43.10 and Major depressive disorder, recurrent, moderate F33.1 [place] [id number] [place] [address] 71190- 3234 13 Dec, 2016 Sprain of calcaneofibular ligament of right ankle, subsequent encounter S93.411D [facility] [id number] [place] [address] 90591- 9178 12 Dec, 2016 Hyperlipidemia E78.5 [place] [address] 62230- 0652 Dec, [facility] [id number] [place] [address] 41177- 4574 Dec, Diabetes E11.9 ; Diabetic neuropathy E11.40 ; Degenerative disc disease, lumbar M51.36 ; Hyperlipidemia E78.5 ; Insomnia G47.00 ; CAD ( coronary artery disease) I25.10 ; Major depressive disorder, recurrent, moderate F33.1 ; Post-traumatic stress disorder F43.10 and Other irritable bowel syndrome K58.8 [place] [id number] [place] [address] 16371- 4615 November, Diabetic neuropathy E11.40 and Hyperlipidemia E78.5 [place] [id number] [place] [address] 73197- 5824 November, Degenerative disc disease, lumbar M51.36 [place] [id number] [place] [address] 25625- 9415 Oct, [place] [id number] [place] [address] 05655- 1865 Oct, Degenerative disc disease, lumbar M51.36 [place] [id number] [place] [address] 02476- 5695 Sep, Degenerative disc disease, lumbar M51.36 and HTN ( hypertension) I10 [place] [id number] [place] [address] 86330- 1933 Sep, Diabetic neuropathy E11.40 ; HTN (hypertension) I10 ; Degenerative disc disease, lumbar M51.36 ; Hyperlipidemia E78.5 ; Insomnia G47.00 ; CAD (coronary artery disease) I25.10 and Diabetes E11.9 [facility] [id number] [place] [address] 67903- 5946 Aug, [facility] [id number] [place] [address] 97114- 1926 Aug, Type 2 diabetes mellitus with hyperglycemia E11.65 [facility] [id number] [place] [address] 12232- 7234 Aug, [facility] [id number] [place] [address] 23469- 7945 Jul, [facility] [id number] [place] [address] 02532- 2959 Jul, [facility] [id number] [place] [address] 90624- 1048 Jun, [facility] [id number] [place] [address] 60619- 5856 Jun, [facility] [id number] [place] [address] 50710- 2364 Jun, [facility] [id number] [address]- 6132 Jun, [facility] [address], [place] [address]- 8528 May, Major depressive disorder, recurrent episode, moderate F33.1 and Post-traumatic stress disorder F43.10 [facility] [address], [place] [address]- 9245 May, Major depressive disorder, recurrent episode, moderate F33.1 and Post-traumatic stress disorder F43.10 [facility] [address], [place] [address]- 4187 May, Diabetes E11.9 ; Diabetic neuropathy E11.40 ; HTN ( hypertension) I10 ; Gastritis K29.70 ; Hyperlipidemia E78.5 ; Insomnia G47.00 and Major depressive disorder, recurrent, moderate F33.1 [facility] [address] [place] [address] 04604- 1760 May, Major depressive disorder, recurrent episode, moderate F33.1 [facility] [id number] [place] [address] 73086- 3855 Apr, [facility] [address] 887071- 3413 Apr, Major depressive disorder, recurrent episode, moderate F33.1 and Post-traumatic stress disorder F43.10 [facility] [id number] [place] [address]502 Apr, Diabetes E11.9 ; Diabetic neuropathy E11.40 ; Degenerative disc disease, lumbar M51.36 ; HTN (hypertension) I10 ; Hyperlipidemia E78.5 ; Chronic pain G89.29 ; CAD (coronary artery disease) I25.10 and Major depressive disorder, recurrent, moderate F33.1 [place] [id number] [place] [address] 68419- 7729 Apr, Major depressive disorder, recurrent episode, moderate F33.1 and Post-traumatic stress disorder F43.10 [facility] [place] [id number] [place] [address] 62127- 2392 Apr, Major depressive disorder, recurrent episode, moderate F33.1 and Post-traumatic stress disorder F43.10 [facility] [address] [place] [address] 17440- 4417 Apr, Major depressive disorder, recurrent episode, moderate F33.1 and Unspecified episodic mood disorder F39 [facility] [id number] [place] [address] 38254- 1175 Apr, Chronic pain G89.29 ; Diabetic neuropathy E11.40 ; HTN ( hypertension) I10 ; Insomnia G47.00 ; CAD (coronary artery disease) I25.10 ; Hyperlipidemia E78.5 ; Degenerative disc disease, lumbar M51.36 ; Diabetes E11.9 and Gastritis K29.70 [place] [address] [address]- 4864 Sep, [facility] [address] [place] [address] 51769- 2553 Aug, [facility] [address] [place] [address] 77449- 9202 Jul, Major depressive disorder, recurrent episode, moderate F33.1 [facility] [id number] [place] [address] 23301- 4889 Jul, Unspecified episodic mood disorder F39 [facility] [address] [place] [address] 11351- 4694 Jul, [facility] [id number] [place] [address] 44377- 1302 Jul, [place] [id number] [place] [address] 81136- 6317 Jul, [facility] [address] [place] [address] 87546- 6072 Jul, Type 2 diabetes mellitus with hyperglycemia E11.65 ; Diabetic neuropathy E11.40 ; Degenerative disc disease, lumbar M51.36 ; HTN ( hypertension) I10 ; Gastritis K29.70 ; Hyperlipidemia E78.5 and CAD (coronary artery disease) I25.10 [place] [address] [address]- 5990 Jul, Severe episode of recurrent major depressive disorder, without psychotic features F33.2 [facility] [address], [place] [address]- 8632 Jul, [facility] [id number] [place] [address] 87077- 0456 Jun, [facility] [address] [place] [address] 61300- 2574 Jun, Diabetes E11.9 ; Diabetic neuropathy E11.40 ; Degenerative disc disease, lumbar M51.36 ; HTN (hypertension) I10 ; Gastritis K29.70 ; Hyperlipidemia E78.5 ; Unspecified episodic mood disorder F39 ; Depression F32.9 and CAD (coronary artery disease) I25.10 [facility] [id number] [place] [address] 44395- 5893 Jun, [facility] [id number] [place] [address] 14887- 0011 Jun, [place] [address] 91875- 0163 Jun, Diabetes E11.9 ; Diabetic neuropathy E11.40 ; Degenerative disc disease, lumbar M51.36 ; HTN (hypertension) I10 ; Gastritis K29.70 ; Chronic pain G89.29 ; Insomnia G47.00 and Unspecified episodic mood disorder F39 [place] [id number] [place] [address] 48830- 6472 May, Diabetic neuropathy E11.40 ; Degenerative disc disease, lumbar M51.36 ; HTN (hypertension) I10 ; Gastritis K29.70 ; Hyperlipidemia E78.5 ; Chronic pain G89.29 ; Insomnia G47.00 ; Unspecified episodic mood disorder F39 ; Diabetes E11.9 ; CAD (coronary artery disease) I25.10 and H/O Gram positive sepsis Z86.19 [facility] [id number] [place] [address] 52167- 7504 May, [facility] [place] [id number] [place] [address] 91108- 2970 May, [facility] [place] [id number] [place] [address] 61525- 3678 May, [facility] [id number] [place] [address] 84370- 4347 May, [facility] [id number] [place] [address] 79255- 4839 May, UTI (urinary tract infection) N39.0 ; Diabetes E11.9 ; Diabetic neuropathy E11.40 ; Hyperlipidemia E78.5 and Chronic pain G89.29 [facility] [id number] [place] [address] 82601- 7031 May, Insomnia, unspecified G47.00 and Chronic pain G89.29 [facility] [id number] [place] [address] 89625- 1759 May, [facility] [id number] [place] [address] 83108- 1754 May, [facility] [id number] [place] [address] 68218- 8027 May, [facility] [id number] [place] [address] 59367- 1705 Apr, Insomnia, unspecified G47.00 ; Chronic pain G89.29 and Unspecified episodic mood disorder F39 [facility] [id number] [place] [address] 57695- 0911 Apr, Unspecified episodic mood disorder F39 [facility] [id number] [place] [address] 36214- 0876 Apr, Major depression F32.9 [facility] [id number] [place] [address] 15559- 8379 Apr, [facility] [id number] [place] [address] 86835- 8832 Apr, Diabetes E11.9 ; Diabetic neuropathy E11.40 ; Degenerative disc disease, lumbar M51.36 ; HTN (hypertension) I10 ; Gastritis K29.70 ; Hyperlipidemia E78.5 ; Chronic pain G89.29 and Insomnia G47.00 [facility] [id number] [place] [address] 95097- 3600 Mar, [facility] [id number] [place] [address] 38027- 3984 Mar, [facility] [id number] [place] [address] 78299- 8891 Mar, [facility] [id number] [place] [address] 72516- 1032 Mar, Diabetes mellitus 250.00 ; Diabetic neuropathy 250.60 ; CAD (coronary artery disease) 414.00 ; Degenerative disc disease, lumbar 722.52 ; Gastritis 535.50 and Insomnia 780.52 [facility] [id number] [place] [address] 16095201- 8340 Mar, Diabetes mellitus 250.00 ; Degenerative disc disease, lumbar 722.52 ; Essential hypertension 401.9 ; Gastritis 535.50 and Chronic pain 338.29 [facility] [id number] [place] [address] 90814- 9448 Feb, [facility] [address] 67380- 0918 Feb, [place] [address] 18387- 7642 Jan, [facility] [address] 23401- 4764 Jan, Diabetes mellitus 250.00 ; Diabetic neuropathy 250.60 ; Degenerative disc disease, lumbar 722.52 ; CAD (coronary artery disease) 414.00 ; Essential hypertension 401.9 ; Gastritis 535.50 ; Hyperlipidemia 272.4 and Distal end of ulna fracture, closed 813.43 [facility] [id number] [place] [address] 15085- 1361 Dec, Wrist pain 719.43 and Diabetes mellitus 250.00 [facility] [id number] [place] [address] 70276- 6241 May, [facility] [place] [id number] [place] [address] 01662- 6211 Dec, [place] [address] 98344- 2789 November, [facility] [place] [id number] [place] [address] 15289030- 2960 Oct, [place] [address] 21103- 1231 17 Sep, 2009 [facility] [place] [facility] [address] [id number] [place] [address]- 9456 11 Sep, 2009 [facility] [place] [facility] [address] [id number] [address]- 9706 23 Jun, 2009 [facility] [place] [facility] [address] [facility] [id number] [address]- 7336 Jun, [facility] [place] [facility] [address] [id number] [address]- 7866 14 Jun, 2009 [facility] [place] [facility] [address] [id number] [place] [address] 10 Jun, 2009 [facility] [place] [facility] [address] [facility] [id number], [place] [address] Jun, [facility] [place] [facility] [address] [facility] [id number] [address] Jun, [facility] [place] [facility] [address] [id number], [place] [address] Jun, [facility] [place] [facility] [address] [id number][place] [address] May, [facility] [place] [facility] [address] [id number][place] [address] May, [facility] [place] [facility] [address] [id number][place] [address] May, [facility] [place] [facility] [address] [id number][place] [address] May, [facility] [place] [facility] [address] [id number][place] [address] 28 Apr, 2009 [facility] [place] [facility] [address] [facility] [id number] [address] Apr, [facility] [place] [facility] [address] [facility] [id number][place] [address] Apr, [facility] [place] [facility] [address] [facility] [id number] [place] [address] Mar, [facility] [address] [facility] [id number] [place] [id number] Dec, IMMUNIZATIONS No Known Immunizations SOCIAL HISTORY Never Assessed REASON FOR VISIT Hydrocodone 05/21 PLAN OF CARE VITAL SIGNS MEDICATIONS Medication Instructions Dosage Frequency Start Date End Date Duration Status Hydrocodone-Acetaminophen 10-325 MG Orally 3 times a day 1 tablet as needed 8h May, 28 days Active RESULTS No Results PROCEDURES [...]
--- OUTSIDE RECORDS SUMMARY | 2018-01-18 11:10 | XMS REPORT ---
Author Author PATRICK Peralta Organization [facility] Address [address] [place] [address] Care Team Providers Care Event Operations Manager Name Role Phone PATRICK Peralta Unavailable PROBLEMS Type Condition ICD9-CM Code PSV18-NF Code Onset Dates Condition Status SNOMED Code Problem Type 2 diabetes mellitus with hyperglycemia E11.65 Active [id number] Problem Obsessive-compulsive disorder, unspecified type F42.9 Active 178926418 Problem Major depressive disorder, recurrent episode, moderate F33.1 Active 270194911 Problem Falls frequently R29.6 Active 663077914 Problem Diabetes E11.9 Active 981461823 Problem Type 2 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 E11.49 Active 21675642 Problem History of pulmonary embolism Z86.711 Active 193731171 Problem senior living 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.4 Active 570092844 Problem 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.29 Active 69821571 Problem Hyperlipidemia E78.5 Active 99853239 Problem Insomnia G47.00 Active 985225570 Problem HTN (hypertension) I10 Active 16780421 Problem Chronic pain G89.29 Active 77180279 Problem CAD (coronary artery disease) I25.10 Active 02255458 Problem Degenerative disc disease, lumbar M51.36 Active 70309350 Problem Post-traumatic stress disorder F43.10 Active 78963153 ALLERGIES Substance Reaction Event Type Date Status Viibryd N/V Drug Allergy Feb, Active Seroquel N/V and "couldn't do anything." Drug Allergy Feb, Active Penicillin V Potassium Unknown Drug Allergy Feb, Active Lexapro N/V, inc. suicidality Drug Allergy Feb, Active Ibuprofen Unknown Drug Allergy Feb, Active Depakote inc. suicidality Drug Allergy Feb, Active ENCOUNTERS Encounter Location Date Diagnosis [facility] [address] [facility] [id number] [address] November, [facility] [address] [address] Sep, Diabetes E11.9 [facility] [address] [address] Sep, Chronic pain G89.29 [facility] [address] [address] 99[address] Sep, [facility] [id number] [place] [address] 63373- 8620 Sep, Falls frequently R29.6 ; senior living 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.4 and Type 2 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 E11.49 [facility] [address] [address] 7[address] Sep, [facility] [id number] [place] [address] 34009- 6811 Sep, Diabetes E11.9 [facility] [id number] [place] [address] 86185- 1809 Aug, [facility] [id number] [place] [address] 27813- 8393 Aug, Chronic pain G89.29 [facility] [address] [address] 9297 Aug, [facility] [address] [address] 3917 Aug, Chronic pain G89.29 [facility] [address] [address] 3316 Jul, [facility] [id number] [place] [address] 43321- 2933 Jul, Diabetes E11.9 and 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.29 [facility] [address] [address] 1182 Jul, 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.29 [facility] [address] [address] 3152 Jul, [facility] [id number] [place] [address] 85596- 4729 Jul, Chronic pain G89.29 [facility] [id number] [place] [address] 19908- 9569 Jun, Diabetes E11.9 [facility] [id number] [place] [address] 84532- 4834 Jun, Chronic pain G89.29 [facility] [id number] [place] [address] 64230- 7841 Jun, Diabetes E11.9 ; Atypical chest pain R07.89 ; 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 ; 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.29 ; Type 2 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 E11.49 ; History of pulmonary embolism Z86.711 and History of CVA (cerebrovascular accident) Z86.73 [facility] [id number] [place] [address] 13427- 8856 May, [facility] [id number] [place] [address] 30524- 9381 May, Chronic pain G89.29 [facility] [address] [address]- 7379 Apr, Chronic pain G89.29 [facility] [address] [address] 0183 Apr, [facility] [id number] [place] [address] 59500- 7929 Mar, Chronic pain G89.29 [facility] [id number] [place] [address] 64434- 8445 18 Mar, 2017 Diabetes E11.9 [facility] [id number] [place] [address] 07406- 6448 07 Mar, 2017 [place] [id number] [place] [address] 50682- 2553 Mar, Degenerative disc disease, lumbar M51.36 [place] [id number] [place] [address] 20236- 5364 28 Feb, 2017 Diabetes E11.9 [place] [id number] [place] [address] 15579- 5135 23 Feb, 2017 Diabetes E11.9 [place] [id number] [place] [address] 18564- 3359 16 Feb, 2017 Diabetes E11.9 ; HTN (hypertension) I10 ; Diabetic neuropathy E11.40 and Leg cramps R25.2 [place] [id number] [place] [address] 72523- 1643 15 Feb, 2017 Sprain of calcaneofibular ligament of right ankle, subsequent encounter S93.411D ; Major depressive disorder, recurrent episode, moderate F33.1 ; Diabetes E11.9 ; Hyperlipidemia E78.5 ; Post-traumatic stress disorder F43.10 and Other irritable bowel syndrome K58.8 [place] [id number] [place] [address] 46561- 0555 14 Feb, 2017 Major depressive disorder, recurrent episode, moderate F33.1 ; Post-traumatic stress disorder F43.10 and Obsessive-compulsive disorder , unspecified type F42.9 [place] [address] [address]- 5572 Feb, [place] [id number] [place] [address] 32337- 7451 09 Feb, 2017 Post-traumatic stress disorder F43.10 and Major depressive disorder, recurrent, moderate F33.1 [place] [id number] [place] [address] 64912- 6490 Feb, Diabetes E11.9 [place] [id number] [place] [address] 94710- 5433 Feb, Degenerative disc disease, lumbar M51.36 [facility] [address] [address] [address] Feb, Post-traumatic stress disorder F43.10 and Major depressive disorder, recurrent, moderate F33.1 [facility] [address] [address]- 8576 Feb, [facility] [id number] [place] [address] 54929240- 3191 Feb, Diabetes E11.9 [facility] [id number] [place] [address] 14262- 2926 Jan, Diabetes E11.9 [facility] [id number] [place] [address] 59160861- 5533 Jan, Post-traumatic stress disorder F43.10 and Major depressive disorder, recurrent, moderate F33.1 [facility] [id number] [place] [address] 52562- 4036 Jan, Diabetes E11.9 [facility] [id number] [place] [address] 17456- 8423 Jan, Diabetes E11.9 [facility] [id number] [place] [address] 04527821- 7326 Jan, [facility] [address] [address]- 1433 Jan, [facility] [id number] [place] [address] 35997- 8739 Jan, Post-traumatic stress disorder F43.10 and Major depressive disorder, recurrent, moderate F33.1 [facility] [address] [address]- 6166 Jan, [facility] [id number] [address]- 0368 Jan, Major depressive disorder, recurrent episode, moderate F33.1 ; Post-traumatic stress disorder F43.10 and Obsessive-compulsive disorder , unspecified type F42.9 [facility] [address] [address]- 8944 17 Jan, 2017 [facility] [id number] [place] [address] 28656- 4826 Jan, Diabetes E11.9 [facility] [address] [address]- 6036 Jan, [facility] [id number] [place] [address] 13560- 5886 Jan, Sprain of calcaneofibular ligament of right ankle, subsequent encounter S93.411D [facility] [id number] [place] [address] 15580- 9295 Jan, Post-traumatic stress disorder F43.10 and Major depressive disorder, recurrent, moderate F33.1 [facility] [id number] [place] [address] 01927- 5759 Jan, Diabetes E11.9 [facility] [id number] [place] [address] 23948- 6674 16 Dec, 2016 Major depressive disorder, recurrent episode, moderate F33.1 ; Post-traumatic stress disorder F43.10 and Obsessive-compulsive disorder , unspecified type F42.9 [facility] [address] [address]- 0017 15 Dec, 2016 [facility] [id number] [place] [address] 09129- 3157 14 Dec, 2016 Sprain of calcaneofibular ligament of right ankle, subsequent encounter S93.411D [facility] [id number] [place] [address] 79230- 8671 13 Dec, 2016 Post-traumatic stress disorder F43.10 and Major depressive disorder, recurrent, moderate F33.1 [facility] [address] [address]- 6113 13 Dec, 2016 Sprain of calcaneofibular ligament of right ankle, subsequent encounter S93.411D [place] [id number] [place] [address] 71338- 0261 12 Dec, 2016 Hyperlipidemia E78.5 [place] [id number] [place] [address] 59785- 4827 Dec, [place] [id number] [place] [address] 18741- 5933 Dec, Diabetes E11.9 ; Diabetic neuropathy E11.40 ; Degenerative disc disease, lumbar M51.36 ; Hyperlipidemia E78.5 ; Insomnia G47.00 ; CAD ( coronary artery disease) I25.10 ; Major depressive disorder, recurrent, moderate F33.1 ; Post-traumatic stress disorder F43.10 and Other irritable bowel syndrome K58.8 [place] [id number] [place] [address] 94672- 4677 November, Diabetic neuropathy E11.40 and Hyperlipidemia E78.5 [place] [id number] [place] [address] 52521- 7222 November, Degenerative disc disease, lumbar M51.36 [place] [id number] [place] [address] 73944- 6116 Oct, [place] [id number] [place] [address] 95081- 4090 Oct, Degenerative disc disease, lumbar M51.36 [place] [id number] [place] [address] 97597- 5403 Sep, Degenerative disc disease, lumbar M51.36 and HTN ( hypertension) I10 [place] [id number] [place] [address] 00820- 8914 Sep, Diabetic neuropathy E11.40 ; HTN (hypertension) I10 ; Degenerative disc disease, lumbar M51.36 ; Hyperlipidemia E78.5 ; Insomnia G47.00 ; CAD (coronary artery disease) I25.10 and Diabetes E11.9 [place] [id number] [place] [address] 57855- 0184 Aug, [place] [address] [address]- 8700 Aug, Type 2 diabetes mellitus with hyperglycemia E11.65 [facility] [address] [address]- 5749 Aug, [facility] [address] 9233 Jul, [facility] [id number] 1651 Jul, [facility] [address] [address]- 9175 Jun, [facility] [address] 0206 Jun, [facility] [address] [address]- 4594 Jun, [facility] [address] [address]- 2132 Jun, [facility] [address] [address]- 9764 May, Major depressive disorder, recurrent episode, moderate F33.1 and Post-traumatic stress disorder F43.10 [facility] [address] [address]- 5087 May, Major depressive disorder, recurrent episode, moderate F33.1 and Post-traumatic stress disorder F43.10 [facility] [id number] [address]- 4028 May, Diabetes E11.9 ; Diabetic neuropathy E11.40 ; HTN ( hypertension) I10 ; Gastritis K29.70 ; Hyperlipidemia E78.5 ; Insomnia G47.00 and Major depressive disorder, recurrent, moderate F33.1 [facility] [id number] [address]- 8238 May, Major depressive disorder, recurrent episode, moderate F33.1 [place] [id number] [place] [address] 95741- 0625 Apr, [place] [id number] [place] [address] 02869- 5413 Apr, Major depressive disorder, recurrent episode, moderate F33.1 and Post-traumatic stress disorder F43.10 [place] [id number] [place] [address] 35132- 1270 Apr, Diabetes E11.9 ; Diabetic neuropathy E11.40 ; Degenerative disc disease, lumbar M51.36 ; HTN (hypertension) I10 ; Hyperlipidemia E78.5 ; Chronic pain G89.29 ; CAD (coronary artery disease) I25.10 and Major depressive disorder, recurrent, moderate F33.1 [place] [id number] [place] [address] 68326- 0002 Apr, Major depressive disorder, recurrent episode, moderate F33.1 and Post-traumatic stress disorder F43.10 [place] [id number] [place] [address] 86962- 1836 Apr, Major depressive disorder, recurrent episode, moderate F33.1 and Post-traumatic stress disorder F43.10 [place] [id number] [place] [address] 24477- 0665 Apr, Major depressive disorder, recurrent episode, moderate F33.1 and Unspecified episodic mood disorder F39 [place] [id number] [place] [address] 20284- 5268 Apr, Chronic pain G89.29 ; Diabetic neuropathy E11.40 ; HTN ( hypertension) I10 ; Insomnia G47.00 ; CAD (coronary artery disease) I25.10 ; Hyperlipidemia E78.5 ; Degenerative disc disease, lumbar M51.36 ; Diabetes E11.9 and Gastritis K29.70 [place] [id number] [place] [address] 71212- 5836 Sep, [place] [id number] [place] [address] 79627- 8835 Aug, [place] [address] [address]- 1379 Jul, Major depressive disorder, recurrent episode, moderate F33.1 [place] [id number] [place] [address] 57866- 1120 Jul, Unspecified episodic mood disorder F39 [place] [id number] [place] [address] 21576- 7863 Jul, [facility] [id number] [place] [address] 03833- 1666 Jul, [place] [id number] [place] [address] 36715- 7692 Jul, [place] [id number] [place] [address] 51146- 0844 Jul, Type 2 diabetes mellitus with hyperglycemia E11.65 ; Diabetic neuropathy E11.40 ; Degenerative disc disease, lumbar M51.36 ; HTN ( hypertension) I10 ; Gastritis K29.70 ; Hyperlipidemia E78.5 and CAD (coronary artery disease) I25.10 [place] [id number] [place] [address] 51502- 3408 Jul, Severe episode of recurrent major depressive disorder, without psychotic features F33.2 [place] [id number] [place] [address] 72978- 8668 Jul, [place] [id number] [place] [address] 66850- 3820 Jun, [place] [id number] [place] [address] 51079- 4024 Jun, Diabetes E11.9 ; Diabetic neuropathy E11.40 ; Degenerative disc disease, lumbar M51.36 ; HTN (hypertension) I10 ; Gastritis K29.70 ; Hyperlipidemia E78.5 ; Unspecified episodic mood disorder F39 ; Depression F32.9 and CAD (coronary artery disease) I25.10 [place] [id number] [place] [address] 41923- 6905 Jun, [place] [id number] [place] [address] 20269- 4985 Jun, [place] [address] 68137- 8982 Jun, Diabetes E11.9 ; Diabetic neuropathy E11.40 ; Degenerative disc disease, lumbar M51.36 ; HTN (hypertension) I10 ; Gastritis K29.70 ; Chronic pain G89.29 ; Insomnia G47.00 and Unspecified episodic mood disorder F39 [place] [address] 15732- 6343 May, Diabetic neuropathy E11.40 ; Degenerative disc disease, lumbar M51.36 ; HTN (hypertension) I10 ; Gastritis K29.70 ; Hyperlipidemia E78.5 ; Chronic pain G89.29 ; Insomnia G47.00 ; Unspecified episodic mood disorder F39 ; Diabetes E11.9 ; CAD (coronary artery disease) I25.10 and H/O Gram positive sepsis Z86.19 [place] [address] 03668- 8028 May, [place] [address] 85953- 1802 May, [place] [address] 90119- 8598 May, [place] [id number] [place] [address] 00696- 8510 May, [place] [address] 68041- 8237 May, UTI (urinary tract infection) N39.0 ; Diabetes E11.9 ; Diabetic neuropathy E11.40 ; Hyperlipidemia E78.5 and Chronic pain G89.29 [place] [id number] [place] [address] 17187- 9741 May, Insomnia, unspecified G47.00 and Chronic pain G89.29 [place] [address] 22403- 3179 May, [facility] [address] [address]- 8796 May, [facility] [id number] [place] [address] 14779- 0697 May, [facility] [id number] [place] [address] 97267- 4826 Apr, Insomnia, unspecified G47.00 ; Chronic pain G89.29 and Unspecified episodic mood disorder F39 [facility] [id number] [place] [address] 59583- 3545 Apr, Unspecified episodic mood disorder F39 [facility] [id number] [place] [address] 92188- 6986 Apr, Major depression F32.9 [place] [id number] [place] [address] 69330- 5108 Apr, [facility] [id number] [place] [address] 44268- 4528 Apr, Diabetes E11.9 ; Diabetic neuropathy E11.40 ; Degenerative disc disease, lumbar M51.36 ; HTN (hypertension) I10 ; Gastritis K29.70 ; Hyperlipidemia E78.5 ; Chronic pain G89.29 and Insomnia G47.00 [place] [id number] [place] [address] 52351- 2124 Mar, [facility] [id number] [place] [address] 78883- 4329 Mar, [place] [id number] [place] [address] 65719- 1122 Mar, [facility] [id number] [place] [address] 12743- 9652 Mar, Diabetes mellitus 250.00 ; Diabetic neuropathy 250.60 ; CAD (coronary artery disease) 414.00 ; Degenerative disc disease, lumbar 722.52 ; Gastritis 535.50 and Insomnia 780.52 [place] [address] [place] [address]- 0194 Mar, Diabetes mellitus 250.00 ; Degenerative disc disease, lumbar 722.52 ; Essential hypertension 401.9 ; Gastritis 535.50 and Chronic pain 338.29 [facility] [id number] [address]- 5596 Feb, [facility] [id number] [place] [address] 02881- 7919 Feb, [facility] [id number] [place] [address] 91181- 6462 Jan, [facility] [id number] [place] [address] 40944- 5846 Jan, Diabetes mellitus 250.00 ; Diabetic neuropathy 250.60 ; Degenerative disc disease, lumbar 722.52 ; CAD (coronary artery disease) 414.00 ; Essential hypertension 401.9 ; Gastritis 535.50 ; Hyperlipidemia 272.4 and Distal end of ulna fracture, closed 813.43 [facility] [id number] [place] [address] 42974658- 4254 Dec, Wrist pain 719.43 and Diabetes mellitus 250.00 [facility] [id number] [place] [address] 69698- 2986 May, [facility] [id number] [place] [address] 26734- 8076 Dec, [facility] [id number] [place] [address] 43143- 2828 November, [facility] [id number] [place] [address] 75089- 5369 Oct, [facility] [id number] [place] [address] 08242- 2556 Sep, [facility] [address] [address]- 6374 Sep, [facility] [id number] [place] [address] 27916- 3039 Jun, [facility] [address] [facility] [id number] 0193 Jun, [facility] [address] [facility] [id number] [place]- 0196 14 Jun, 2009 [facility] [address] [facility] [id number] [place] [address]- 5216 Jun, [facility] [address] [facility] [id number] [address]- 2901 Jun, [facility] [address] [facility] [id number] 2038 Jun, [facility] [address] [facility] [id number] [address] Jun, [facility] [address] [facility] [id number] [place] [address] May, [facility] [address] [facility] [id number] [place] [address] May, [facility] [address] [id number] [address] May, [facility] [address] [id number] [address] May, [facility] [address] [id number] [address] Apr, [facility] [address] [facility] [id number] [place] [address] Apr, [facility] [address] [facility] [id number] [place] [address] 12 Apr, 2009 [facility] [address] [facility] [id number] [place] [address] 16 Mar, 2009 [facility] [address] [id number] [address] Dec, IMMUNIZATIONS No Known Immunizations SOCIAL HISTORY Never Assessed REASON FOR VISIT Blood sugar- J. Jeffers RN PLAN OF CARE Activity Details Follow Up 3 Months Reason: VITAL SIGNS Height 61 in 2017-02-17 Weight 136 lbs 2017-02-17 Temperature 97.2 degrees Fahrenheit 2017-02-17 Heart Rate 92 bpm 2017-02-17 Respiratory Rate 20 2017-02-17 BMI 25.69 kg/m2 2017-02-17 Blood pressure systolic 138 mmHg 2017-02-17 Blood pressure diastolic 88 mmHg 2017-02-17 MEDICATIONS Medication Instructions Dosage Frequency Start Date End Date Duration Status Prazosin HCl 1 MG Orally Once a day 1 capsule at bedtime 24h Jan, 30 day(s) Active Lamictal 25 MG Orally daily for two weeks, then 2 tablets daily 1 tablet 30 day(s) Active Aspir-81 81 MG Orally Once a day 1 tablet 24h Active Crestor 40 MG Orally Once a day 1 tablet 24h 30 days Active Levemir FlexTouch 100 UNIT/ML Subcutaneous 50 units bid inject Active Lisinopril-Hydrochlorothiazide 20-25 MG Orally Once a day 1 tablet 24h Dec, 30 day(s) Active NovoLog Flexpen 100 UNIT/ML Subcutaneous 3 times a day with meals inject 40 units Active Hydrocodone-Acetaminophen 10-325 MG Orally 3 times a day 1 tablet as needed 8h Jan, 28 days Active Metoclopramide HCl 10 mg Orally every 6 hours 1 tab 6h Active Plavix 75 MG Orally Once a day 1 tablet 24h 28 Active Gabapentin 300 MG Orally Three times a day 1 capsule 8h Active RESULTS Name Result Date Reference Range C-PEPTIDE, SERUM 2017-02-17 C-Peptide, Serum 1.1 1.1-4.4 GLUCOSE, SERUM 2017-02-17 Glucose, Serum 146 65-99 PROCEDURES Procedure Date Ordered Result Body Site LAB NOT BILLED BY [facility] Feb 17, 2017 VENIPUNCT, ROUTINE* Feb 17, 2017 INSTRUCTIONS MEDICATIONS ADMINISTERED No Known Medications [...]
--- OUTSIDE RECORDS SUMMARY | 2018-01-18 11:12 | XMS REPORT ---
Author Author PATRICK Peralta Organization [facility] Address [address] [place] [address] Care Team Providers Care Client Server Programmer Name Role Phone PATRICK Peralta Unavailable PROBLEMS Type Condition ICD9-CM Code EQZ19-ET Code Onset Dates Condition Status SNOMED Code Problem Type 2 diabetes mellitus with hyperglycemia E11.65 Active [id number] Problem Obsessive-compulsive disorder, unspecified type F42.9 Active 100376108 Problem Major depressive disorder, recurrent episode, moderate F33.1 Active 722744637 Problem Falls frequently R29.6 Active 280864110 Problem Diabetes E11.9 Active 558085531 Problem Type 2 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 E11.49 Active 07352470 Problem History of pulmonary embolism Z86.711 Active 309209309 Problem 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 termite 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.4 Active 748848884 Problem 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.29 Active 92272803 Problem Hyperlipidemia E78.5 Active 32216621 Problem Insomnia G47.00 Active 492925442 Problem HTN (hypertension) I10 Active 64283186 Problem Chronic pain G89.29 Active 64575240 Problem CAD (coronary artery disease) I25.10 Active 13537329 Problem Degenerative disc disease, lumbar M51.36 Active 63411662 Problem Post-traumatic stress disorder F43.10 Active 03370527 ALLERGIES No Information ENCOUNTERS Encounter Location Date Diagnosis [facility] [address] [facility] [id number] [address] November, [facility] [id number] [place] [address] 17750- 9723 Sep, Diabetes E11.9 [facility] [address] [id number] [address] 59[address] Sep, Chronic pain G89.29 [facility] [address] [address] Sep, [facility] [id number] [place] [address] 14937- 3603 Sep, Falls frequently R29.6 ; penitentiary 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.4 and Type 2 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 E11.49 [facility] [id number] [place] [address] 50195- 4467 Sep, [facility] [id number] [place] [address] 50980- 7134 Sep, Diabetes E11.9 [facility] [id number] [place] [address] 72872- 4478 Aug, [facility] [address] [id number] [address] 0690 Aug, Chronic pain G89.29 [facility] [address] [address] 4[address] Aug, [facility] [address] [place] [address] 87761- 6011 Aug, Chronic pain G89.29 [facility] [address] [address] 12[address] Jul, [facility] [address] [address] 1246 Jul, Diabetes E11.9 and 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.29 [facility] [address], [place] [address] 3561 Jul, 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.29 [facility] [address] [address] 1466 Jul, [facility] [address] [address]- 5717 Jul, Chronic pain G89.29 [facility] [id number] [place] [address] 94733- 2123 Jun, Diabetes E11.9 [facility] [id number] [place] [address] 82392- 8800 Jun, Chronic pain G89.29 [facility] [id number] [place] [address] 06678- 7537 Jun, Diabetes E11.9 ; Atypical chest pain R07.89 ; 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 termite 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.4 ; 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.29 ; Type 2 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 E11.49 ; History of pulmonary embolism Z86.711 and History of CVA (cerebrovascular accident) Z86.73 [facility] [id number] [place] [address] 26991- 7204 May, [facility] [id number] [place] [address] 95694- 6336 May, Chronic pain G89.29 [facility] [id number] [place] [address] 28037- 6417 Apr, Chronic pain G89.29 [facility] [id number] [place] [address] 34035- 9625 Apr, [facility] [id number] [place] [address] 36690- 4907 Mar, Chronic pain G89.29 [facility] [id number] [place] [address] 02204- 9633 18 Mar, 2017 Diabetes E11.9 [facility] [id number] [place] [address] 89576- 6322 Mar, [facility] [id number] [place] [address] 85325- 4798 Mar, Degenerative disc disease, lumbar M51.36 [facility] [id number] [place] [address] 85429- 1153 Feb, Diabetes E11.9 [facility] [id number] [place] [address] 24817- 0946 23 Feb, 2017 Diabetes E11.9 [place] [address] 89829- 0962 16 Feb, 2017 Diabetes E11.9 ; HTN (hypertension) I10 ; Diabetic neuropathy E11.40 and Leg cramps R25.2 [place] [address] 25304- 2394 15 Feb, 2017 Sprain of calcaneofibular ligament of right ankle, subsequent encounter S93.411D ; Major depressive disorder, recurrent episode, moderate F33.1 ; Diabetes E11.9 ; Hyperlipidemia E78.5 ; Post-traumatic stress disorder F43.10 and Other irritable bowel syndrome K58.8 [facility] [id number] [place] [address] 90840- 4317 14 Feb, 2017 Major depressive disorder, recurrent episode, moderate F33.1 ; Post-traumatic stress disorder F43.10 and Obsessive-compulsive disorder , unspecified type F42.9 [facility] [id number] [place] [address] 81076- 2515 Feb, [facility] [id number] [place] [address] 92366- 1826 Feb, Post-traumatic stress disorder F43.10 and Major depressive disorder, recurrent, moderate F33.1 [facility] [id number] [place] [address] 83879- 1903 Feb, Diabetes E11.9 [facility] [id number] [place] [address] 71580- 9513 Feb, Degenerative disc disease, lumbar M51.36 [place] [address] 11458- 4698 Feb, Post-traumatic stress disorder F43.10 and Major depressive disorder, recurrent, moderate F33.1 [facility] [id number] [place] [address] 83135- 7138 Feb, [facility] [address], [place] [address]- 5378 Feb, Diabetes E11.9 [facility] [address] [facility] [id number] [address] 5726 Jan, Diabetes E11.9 [facility] [address], [place] [address]- 6426 Jan, Post-traumatic stress disorder F43.10 and Major depressive disorder, recurrent, moderate F33.1 [facility] [address] [facility] [id number] [place] [address] 57565- 3637 Jan, Diabetes E11.9 [facility] [id number] [place] [address] 02462209- 4496 Jan, Diabetes E11.9 [facility] [address] [place] [address] 47327- 0384 Jan, [facility] [id number] [place] [address] 48361- 9372 Jan, [facility] [address] [place] [address] 81398- 5777 Jan, Post-traumatic stress disorder F43.10 and Major depressive disorder, recurrent, moderate F33.1 [facility] [address] [address]- 6074 Jan, [facility] [address] [place] [address] 27661- 0677 Jan, Major depressive disorder, recurrent episode, moderate F33.1 ; Post-traumatic stress disorder F43.10 and Obsessive-compulsive disorder , unspecified type F42.9 [facility] [address], [place] [address]- 2722 Jan, [facility] [id number] [place] [address] 83930- 9957 Jan, Diabetes E11.9 [facility] [id number] [place] [address] 28666- 8954 13 Jan, 2017 [facility] [address] [place] [address] 95774- 2302 13 Jan, 2017 Sprain of calcaneofibular ligament of right ankle, subsequent encounter S93.411D [facility] [address] [place] [address] 74697- 4609 13 Jan, 2017 Post-traumatic stress disorder F43.10 and Major depressive disorder, recurrent, moderate F33.1 [facility] [id number] [place] [address] 79272- 3961 07 Jan, 2017 Diabetes E11.9 [facility] [facility] [id number] [place] [address] 115441- 3935 16 Dec, 2016 Major depressive disorder, recurrent episode, moderate F33.1 ; Post-traumatic stress disorder F43.10 and Obsessive-compulsive disorder , unspecified type F42.9 [facility] [id number] [place] [address] 06305- 6826 15 Dec, 2016 [facility] [id number] [place] [address] 27111- 3109 14 Dec, 2016 Sprain of calcaneofibular ligament of right ankle, subsequent encounter S93.411D [place] [address] [place] [address] 38243- 1567 13 Dec, 2016 Post-traumatic stress disorder F43.10 and Major depressive disorder, recurrent, moderate F33.1 [place] [address] [place] [address] 07932- 5294 13 Dec, 2016 Sprain of calcaneofibular ligament of right ankle, subsequent encounter S93.411D [facility] [id number] [place] [address] 55661- 7993 12 Dec, 2016 Hyperlipidemia E78.5 [facility] [address] [place] [address] 65449- 6444 08 Dec, 2016 [facility] [id number] [place] [address] 94208- 0655 Dec, Diabetes E11.9 ; Diabetic neuropathy E11.40 ; Degenerative disc disease, lumbar M51.36 ; Hyperlipidemia E78.5 ; Insomnia G47.00 ; CAD ( coronary artery disease) I25.10 ; Major depressive disorder, recurrent, moderate F33.1 ; Post-traumatic stress disorder F43.10 and Other irritable bowel syndrome K58.8 [place] [address] 11414- 4643 November, Diabetic neuropathy E11.40 and Hyperlipidemia E78.5 [place] [address] 20329- 8588 November, Degenerative disc disease, lumbar M51.36 [facility] [address] 71109- 3569 Oct, [address] 30198- 5721 Oct, Degenerative disc disease, lumbar M51.36 [place] [address] 54322- 3694 Sep, Degenerative disc disease, lumbar M51.36 and HTN ( hypertension) I10 [address] 44163- 6422 Sep, Diabetic neuropathy E11.40 ; HTN (hypertension) I10 ; Degenerative disc disease, lumbar M51.36 ; Hyperlipidemia E78.5 ; Insomnia G47.00 ; CAD (coronary artery disease) I25.10 and Diabetes E11.9 [place] [id number] [place] [address] 21551- 4740 Aug, [place] [address] 66527- 3141 Aug, Type 2 diabetes mellitus with hyperglycemia E11.65 [facility] [id number] [place] [address] 37667- 3767 Aug, [place] [address] 68987- 2546 Jul, [facility] [address] 0123 Jul, [facility] [address], [place] [address]- 4666 Jun, [facility] [address], [place] [address]- 2756 Jun, [facility] [address], [place] [address]- 5102 Jun, [facility] [address], [place] [address]- 0325 Jun, [facility] [address] 5369 May, Major depressive disorder, recurrent episode, moderate F33.1 and Post-traumatic stress disorder F43.10 [facility] [address], [place] [address]- 2992 May, Major depressive disorder, recurrent episode, moderate F33.1 and Post-traumatic stress disorder F43.10 [facility] [address], [place] [address]- 0200 May, Diabetes E11.9 ; Diabetic neuropathy E11.40 ; HTN ( hypertension) I10 ; Gastritis K29.70 ; Hyperlipidemia E78.5 ; Insomnia G47.00 and Major depressive disorder, recurrent, moderate F33.1 [facility] [address], [place] [address]- 7458 May, Major depressive disorder, recurrent episode, moderate F33.1 [facility] [address] 6081 Apr, [facility] [address] 8240 Apr, Major depressive disorder, recurrent episode, moderate F33.1 and Post-traumatic stress disorder F43.10 [facility] [id number] [place] [address] 33478- 8303 Apr, Diabetes E11.9 ; Diabetic neuropathy E11.40 ; Degenerative disc disease, lumbar M51.36 ; HTN (hypertension) I10 ; Hyperlipidemia E78.5 ; Chronic pain G89.29 ; CAD (coronary artery disease) I25.10 and Major depressive disorder, recurrent, moderate F33.1 [place] [id number] [place] [address] 84560- 9084 Apr, Major depressive disorder, recurrent episode, moderate F33.1 and Post-traumatic stress disorder F43.10 [place] [id number] [place] [address] 26786- 7779 Apr, Major depressive disorder, recurrent episode, moderate F33.1 and Post-traumatic stress disorder F43.10 [place] [id number] [place] [address] 86664- 3465 Apr, Major depressive disorder, recurrent episode, moderate F33.1 and Unspecified episodic mood disorder F39 [place] [id number] [place] [address] 76767- 6374 Apr, Chronic pain G89.29 ; Diabetic neuropathy E11.40 ; HTN ( hypertension) I10 ; Insomnia G47.00 ; CAD (coronary artery disease) I25.10 ; Hyperlipidemia E78.5 ; Degenerative disc disease, lumbar M51.36 ; Diabetes E11.9 and Gastritis K29.70 [place] [id number] [place] [address] 99841- 5931 Sep, [place] [id number] [place] [address] 62473- 8081 Aug, [place] [id number] [place] [address] 72794- 9678 Jul, Major depressive disorder, recurrent episode, moderate F33.1 [place] [id number] [place] [address] 35846- 7776 Jul, Unspecified episodic mood disorder F39 [place] [address] [place] [address]- 5900 Jul, [facility] [id number] [place] [address] 92640- 5262 Jul, [place] [id number] [place] [address] 73863- 9031 Jul, [place] [id number] [place] [address] 31972- 0515 Jul, Type 2 diabetes mellitus with hyperglycemia E11.65 ; Diabetic neuropathy E11.40 ; Degenerative disc disease, lumbar M51.36 ; HTN ( hypertension) I10 ; Gastritis K29.70 ; Hyperlipidemia E78.5 and CAD (coronary artery disease) I25.10 [place] [id number] [place] [address] 18287- 3213 Jul, Severe episode of recurrent major depressive disorder, without psychotic features F33.[address] 06402- 1315 Jul, [place] [id number] [place] [address] 95684- 5605 Jun, [place] [id number] [place] [address] 91994- 0708 Jun, Diabetes E11.9 ; Diabetic neuropathy E11.40 ; Degenerative disc disease, lumbar M51.36 ; HTN (hypertension) I10 ; Gastritis K29.70 ; Hyperlipidemia E78.5 ; Unspecified episodic mood disorder F39 ; Depression F32.9 and CAD (coronary artery disease) I25.10 [place] [id number] [place] [address] 51472- 5871 Jun, [address] 70882- 5074 Jun, [place] [id number] [place] [address] 80738- 3274 Jun, Diabetes E11.9 ; Diabetic neuropathy E11.40 ; Degenerative disc disease, lumbar M51.36 ; HTN (hypertension) I10 ; Gastritis K29.70 ; Chronic pain G89.29 ; Insomnia G47.00 and Unspecified episodic mood disorder F39 [facility] [id number] [place] [address] 66646- 9882 May, Diabetic neuropathy E11.40 ; Degenerative disc disease, lumbar M51.36 ; HTN (hypertension) I10 ; Gastritis K29.70 ; Hyperlipidemia E78.5 ; Chronic pain G89.29 ; Insomnia G47.00 ; Unspecified episodic mood disorder F39 ; Diabetes E11.9 ; CAD (coronary artery disease) I25.10 and H/O Gram positive sepsis Z86.19 [facility] [id number] [place] [address] 79575- 3130 May, [facility] [address] 86516- 5352 May, [facility] [address] 02571- 4741 May, [facility] [address] 69862- 5193 May, [facility] [id number] [place] [address] 51449- 7478 May, UTI (urinary tract infection) N39.0 ; Diabetes E11.9 ; Diabetic neuropathy E11.40 ; Hyperlipidemia E78.5 and Chronic pain G89.29 [facility] [id number] [place] [address] 82389- 3743 May, Insomnia, unspecified G47.00 and Chronic pain G89.29 [facility] [id number] [place] [address] 75243- 6083 May, [facility] [address] 14466- 6302 May, [facility] [id number] [place] [address] 21509- 2267 May, [facility] [address] 20999- 3970 Apr, Insomnia, unspecified G47.00 ; Chronic pain G89.29 and Unspecified episodic mood disorder F39 [place] [id number] [place] [address] 20559- 1872 Apr, Unspecified episodic mood disorder F39 [place] [id number] [place] [address] 15091- 9474 Apr, Major depression F32.9 [facility] [address] 04219- 1800 Apr, [place] [id number] [place] [address] 68163- 6463 Apr, Diabetes E11.9 ; Diabetic neuropathy E11.40 ; Degenerative disc disease, lumbar M51.36 ; HTN (hypertension) I10 ; Gastritis K29.70 ; Hyperlipidemia E78.5 ; Chronic pain G89.29 and Insomnia G47.00 [place] [address] 66234- 8414 Mar, [place] [id number] [place] [address] 45891- 4064 Mar, [place] [id number] [place] [address] 59428- 1000 Mar, [place] [id number] [place] [address] 33072- 9356 Mar, Diabetes mellitus 250.00 ; Diabetic neuropathy 250.60 ; CAD (coronary artery disease) 414.00 ; Degenerative disc disease, lumbar 722.52 ; Gastritis 535.50 and Insomnia 780.52 [place] [id number] [place] [address] 75648- 4853 Mar, Diabetes mellitus 250.00 ; Degenerative disc disease, lumbar 722.52 ; Essential hypertension 401.9 ; Gastritis 535.50 and Chronic pain 338.29 [place] [id number] [place] [address] 96557- 6213 Feb, [facility] [id number] [address]- 0193 Feb, [facility] [id number] [place] [address] 39301- 6994 Jan, [facility] [id number] [place] [address] 95219- 0895 Jan, Diabetes mellitus 250.00 ; Diabetic neuropathy 250.60 ; Degenerative disc disease, lumbar 722.52 ; CAD (coronary artery disease) 414.00 ; Essential hypertension 401.9 ; Gastritis 535.50 ; Hyperlipidemia 272.4 and Distal end of ulna fracture, closed 813.43 [facility] [id number] [place] [address] 18319- 6157 Dec, Wrist pain 719.43 and Diabetes mellitus 250.00 [facility] [id number] [place] [address] 29837- 7161 May, [facility] [id number] [place] [address] 14131- 6133 Dec, [facility] [id number] [place] [address] 34299- 2799 November, [facility] [id number] [place] [address] 37237- 2453 16 Oct, 2009 [facility] [id number] [place] [address] 87002- 5414 Sep, [facility] [id number] [place] [address] 54942- 8947 Sep, [facility] [id number] [place] [address] 57891- 9935 Jun, [facility] [id number] [place] [address] 96208801- 8645 Jun, [facility] [id number] [place] [address] 12264- 9206 14 Jun, 2009 [facility] [id number] [place] [address] 74344- 6536 Jun, [facility] [id number] [address]- 3786 Jun, [facility] [address] [facility] [id number] [address]- 1166 Jun, [facility] [address] [address]- 3160 Jun, [facility] [address] [facility] [id number], [place] [address]- 8644 May, [facility] [address] [facility] [id number], [place] [address]- 5177 May, [facility] [address], [place] [address]- 7228 May, [facility] [address], [place] [address]- 5736 May, [facility] [address] [address]- 7384 Apr, [facility] [address]- 9561 Apr, [facility] [address] 7497 Apr, [facility] [id number] [address]- 6909 Mar, [facility] [address], [place] [address]- 5225 Dec, IMMUNIZATIONS No Known Immunizations SOCIAL HISTORY Never Assessed REASON FOR VISIT Requests return call PLAN OF CARE VITAL SIGNS MEDICATIONS Medication Instructions Dosage Frequency Start Date End Date Duration Status Levemir FlexTouch 100 UNIT/ML Subcutaneous 40 units bid inject Active NovoLog Flexpen 100 UNIT/ML Subcutaneous 3 times a day with meals inject 35 units Active RESULTS No Results PROCEDURES No Known [...]
--- OUTSIDE RECORDS SUMMARY | 2018-01-18 11:14 | XMS REPORT ---
Author Author PATRICK Peralta Organization [facility] Address [address] [place] [address] Care Team Providers Care Base Loader Name Role Phone PATRICK Peralta Unavailable PROBLEMS Type Condition ICD9-CM Code [id number] Code Onset Dates Condition Status SNOMED Code Problem Type 2 diabetes mellitus with hyperglycemia E11.65 Active [id number] Problem Obsessive-compulsive disorder, unspecified type F42.9 Active 420040161 Problem Major depressive disorder, recurrent episode, moderate F33.1 Active 840480409 Problem Falls frequently R29.6 Active 828101016 Problem Diabetes E11.9 Active 396561334 Problem Type 2 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 E11.49 Active 30144914 Problem History of pulmonary embolism Z86.711 Active 291311641 Problem 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.4 Active 587609057 Problem 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.29 Active 94601158 Problem Hyperlipidemia E78.5 Active 99398319 Problem Insomnia G47.00 Active 138294127 Problem HTN (hypertension) I10 Active 76127055 Problem Chronic pain G89.29 Active 83257869 Problem CAD (coronary artery disease) I25.10 Active 52608978 Problem Degenerative disc disease, lumbar M51.36 Active 58146351 Problem Post-traumatic stress disorder F43.10 Active 50069670 ALLERGIES No Information ENCOUNTERS Encounter Location Date Diagnosis [facility] [address] [facility] [id number] [address] November, [facility] [id number] [place] [address] 11755- 7448 Sep, Diabetes E11.9 [facility] [address] [id number], [place] [address] Sep, Chronic pain G89.29 [facility] [address], [place] [address] Sep, [facility] [id number] [place] [address] 41790- 2368 Sep, Falls frequently R29.6 ; jail 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.4 and Type 2 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 E11.49 [facility] [id number] [place] [address] 70250- 2909 Sep, [facility] [id number] [place] [address] 34427- 7006 Sep, Diabetes E11.9 [facility] [id number] [place] [address] 68387- 5444 Aug, [facility] [address] [id number] [address] 7[address] Aug, Chronic pain G89.29 [facility] [address], [place] [address] 2509 Aug, [facility] [address] [place] [address] 87158- 9846 Aug, Chronic pain G89.29 [facility] [address], [place] [address] 57[address] Jul, [facility] [address], [place] [address] 4418 Jul, Diabetes E11.9 and 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.29 [facility] [address], [place] [address] 2510 Jul, 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.29 [facility] [address], [place] [address] 54[address] Jul, [facility] [address], [place] [address] 0606 Jul, Chronic pain G89.29 [facility] [id number] [place] [address] 26067- 2701 Jun, Diabetes E11.9 [facility] [id number] [place] [address] 76238- 8716 Jun, Chronic pain G89.29 [facility] [id number] [place] [address] 43334- 6459 Jun, Diabetes E11.9 ; Atypical chest pain R07.89 ; 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.4 ; 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.29 ; Type 2 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 E11.49 ; History of pulmonary embolism Z86.711 and History of CVA (cerebrovascular accident) Z86.73 [facility] [id number] [place] [address] 78228- 2148 May, [facility] [id number] [place] [address] 35623- 4117 May, Chronic pain G89.29 [facility] [id number] [place] [address] 70872- 9811 Apr, Chronic pain G89.29 [facility] [id number] [place] [address] 27260- 0778 Apr, [facility] [id number] [place] [address] 19038- 2553 Mar, Chronic pain G89.29 [facility] [id number] [place] [address] 31951- 1153 18 Mar, 2017 Diabetes E11.9 [facility] [id number] [place] [address] 31354- 4685 Mar, [facility] [id number] [place] [address] 47883- 1464 Mar, Degenerative disc disease, lumbar M51.36 [facility] [id number] [place] [address] 28207- 6121 Feb, Diabetes E11.9 [place] [id number] [place] [address] 63730- 4955 23 Feb, 2017 Diabetes E11.9 [place] [address] 19387- 3083 16 Feb, 2017 Diabetes E11.9 ; HTN (hypertension) I10 ; Diabetic neuropathy E11.40 and Leg cramps R25.2 [place] [address] 60936- 1762 15 Feb, 2017 Sprain of calcaneofibular ligament of right ankle, subsequent encounter S93.411D ; Major depressive disorder, recurrent episode, moderate F33.1 ; Diabetes E11.9 ; Hyperlipidemia E78.5 ; Post-traumatic stress disorder F43.10 and Other irritable bowel syndrome K58.8 [place] [id number] [place] [address] 64232- 9461 14 Feb, 2017 Major depressive disorder, recurrent episode, moderate F33.1 ; Post-traumatic stress disorder F43.10 and Obsessive-compulsive disorder , unspecified type F42.9 [facility] [id number] [place] [address] 93609- 2257 Feb, [place] [id number] [place] [address] 17299- 5183 Feb, Post-traumatic stress disorder F43.10 and Major depressive disorder, recurrent, moderate F33.1 [place] [id number] [place] [address] 45113- 5636 Feb, Diabetes E11.9 [place] [id number] [place] [address] 22675- 6212 Feb, Degenerative disc disease, lumbar M51.36 [place] [address] 83915- 7665 Feb, Post-traumatic stress disorder F43.10 and Major depressive disorder, recurrent, moderate F33.1 [place] [id number] [place] [address] 81078- 7682 Feb, [facility] [address], [place] [address] 4193 Feb, Diabetes E11.9 [facility] [address] [facility] [id number] [address] 4486 Jan, Diabetes E11.9 [facility] [address], [place] [address] 8626 Jan, Post-traumatic stress disorder F43.10 and Major depressive disorder, recurrent, moderate F33.1 [facility] [address] [facility] [id number] [place] [address] 26028- 8976 Jan, Diabetes E11.9 [facility] [id number] [place] [address] 10789823- 6736 Jan, Diabetes E11.9 [facility] [id number] [place] [address] 90291- 7349 Jan, [facility] [id number] [place] [address] 01564- 2061 Jan, [facility] [address] [place] [address] 01604- 0862 Jan, Post-traumatic stress disorder F43.10 and Major depressive disorder, recurrent, moderate F33.1 [facility] [address], [place] [address]- 2909 Jan, [facility] [id number] [place] [address] 04472- 6057 Jan, Major depressive disorder, recurrent episode, moderate F33.1 ; Post-traumatic stress disorder F43.10 and Obsessive-compulsive disorder , unspecified type F42.9 [facility] [address], [place] [address]- 8406 Jan, [facility] [id number] [place] [address] 08183- 8235 Jan, Diabetes E11.9 [facility] [id number] [place] [address] 85450- 4828 13 Jan, 2017 [facility] [address] [place] [address] 18923- 7807 13 Jan, 2017 Sprain of calcaneofibular ligament of right ankle, subsequent encounter S93.411D [facility] [id number] [place] [address] 78063- 4976 13 Jan, 2017 Post-traumatic stress disorder F43.10 and Major depressive disorder, recurrent, moderate F33.1 [facility] [id number] [place] [address] 55580- 4550 07 Jan, 2017 Diabetes E11.9 [place] [id number] [place] [address] 148475- 0988 16 Dec, 2016 Major depressive disorder, recurrent episode, moderate F33.1 ; Post-traumatic stress disorder F43.10 and Obsessive-compulsive disorder , unspecified type F42.9 [place] [id number] [place] [address] 54743- 1312 15 Dec, 2016 [place] [id number] [place] [address] 56943- 8302 14 Dec, 2016 Sprain of calcaneofibular ligament of right ankle, subsequent encounter S93.411D [place] [id number] [place] [address] 94192- 4146 13 Dec, 2016 Post-traumatic stress disorder F43.10 and Major depressive disorder, recurrent, moderate F33.1 [place] [id number] [place] [address] 00155- 4172 13 Dec, 2016 Sprain of calcaneofibular ligament of right ankle, subsequent encounter S93.411D [place] [id number] [place] [address] 74520- 6526 12 Dec, 2016 Hyperlipidemia E78.5 [facility] [id number] [place] [address] 41140- 7879 08 Dec, 2016 [facility] [id number] [place] [address] 00038- 2045 Dec, Diabetes E11.9 ; Diabetic neuropathy E11.40 ; Degenerative disc disease, lumbar M51.36 ; Hyperlipidemia E78.5 ; Insomnia G47.00 ; CAD ( coronary artery disease) I25.10 ; Major depressive disorder, recurrent, moderate F33.1 ; Post-traumatic stress disorder F43.10 and Other irritable bowel syndrome K58.8 [place] [address] 66145- 2111 November, Diabetic neuropathy E11.40 and Hyperlipidemia E78.5 [place] [address] 40049- 7713 November, Degenerative disc disease, lumbar M51.36 [place] [address] 40915- 2991 Oct, [address] 53471- 6634 Oct, Degenerative disc disease, lumbar M51.36 [place] [address] 28748- 4734 Sep, Degenerative disc disease, lumbar M51.36 and HTN ( hypertension) I10 [address] 81786- 3152 Sep, Diabetic neuropathy E11.40 ; HTN (hypertension) I10 ; Degenerative disc disease, lumbar M51.36 ; Hyperlipidemia E78.5 ; Insomnia G47.00 ; CAD (coronary artery disease) I25.10 and Diabetes E11.9 [place] [id number] [place] [address] 08378- 5182 Aug, [place] [address] 46118- 5974 Aug, Type 2 diabetes mellitus with hyperglycemia E11.65 [place] [id number] [place] [address] 70588- 8767 Aug, [place] [address] 70087- 2546 Jul, [facility] [address] 9959 Jul, [facility] [address], [place] [address]- 5386 Jun, [facility] [address], [place] [address]- 3096 Jun, [facility] [address], [place] [address]- 1083 Jun, [facility] [address], [place] [address]- 3817 Jun, [facility] [address] 7013 May, Major depressive disorder, recurrent episode, moderate F33.1 and Post-traumatic stress disorder F43.10 [facility] [address], [place] [address]- 9466 May, Major depressive disorder, recurrent episode, moderate F33.1 and Post-traumatic stress disorder F43.10 [facility] [address], [place] [address]- 5914 May, Diabetes E11.9 ; Diabetic neuropathy E11.40 ; HTN ( hypertension) I10 ; Gastritis K29.70 ; Hyperlipidemia E78.5 ; Insomnia G47.00 and Major depressive disorder, recurrent, moderate F33.1 [facility] [address], [place] [address]- 5043 May, Major depressive disorder, recurrent episode, moderate F33.1 [facility] [address] 3102 Apr, [facility] [address] 5228 Apr, Major depressive disorder, recurrent episode, moderate F33.1 and Post-traumatic stress disorder F43.10 [facility] [id number] [place] [address] 67005- 4267 Apr, Diabetes E11.9 ; Diabetic neuropathy E11.40 ; Degenerative disc disease, lumbar M51.36 ; HTN (hypertension) I10 ; Hyperlipidemia E78.5 ; Chronic pain G89.29 ; CAD (coronary artery disease) I25.10 and Major depressive disorder, recurrent, moderate F33.1 [place] [id number] [place] [address] 30336- 3291 Apr, Major depressive disorder, recurrent episode, moderate F33.1 and Post-traumatic stress disorder F43.10 [place] [id number] [place] [address] 47660- 8720 Apr, Major depressive disorder, recurrent episode, moderate F33.1 and Post-traumatic stress disorder F43.10 [place] [id number] [place] [address] 58026- 0872 Apr, Major depressive disorder, recurrent episode, moderate F33.1 and Unspecified episodic mood disorder F39 [place] [id number] [place] [address] 48882- 2625 Apr, Chronic pain G89.29 ; Diabetic neuropathy E11.40 ; HTN ( hypertension) I10 ; Insomnia G47.00 ; CAD (coronary artery disease) I25.10 ; Hyperlipidemia E78.5 ; Degenerative disc disease, lumbar M51.36 ; Diabetes E11.9 and Gastritis K29.70 [place] [id number] [place] [address] 68808- 2505 Sep, [place] [id number] [place] [address] 87684- 7573 Aug, [place] [id number] [place] [address] 92024- 2559 Jul, Major depressive disorder, recurrent episode, moderate F33.1 [place] [id number] [place] [address] 43226- 8254 Jul, Unspecified episodic mood disorder F39 [place] [address] [place] [address]- 3541 Jul, [place] [id number] [place] [address] 81062- 2674 Jul, [place] [id number] [place] [address] 15685- 2974 Jul, [place] [id number] [place] [address] 66985- 2986 Jul, Type 2 diabetes mellitus with hyperglycemia E11.65 ; Diabetic neuropathy E11.40 ; Degenerative disc disease, lumbar M51.36 ; HTN ( hypertension) I10 ; Gastritis K29.70 ; Hyperlipidemia E78.5 and CAD (coronary artery disease) I25.10 [place] [id number] [place] [address] 51776- 5197 Jul, Severe episode of recurrent major depressive disorder, without psychotic features F33.[address] 50346- 7159 Jul, [place] [id number] [place] [address] 01281- 5650 Jun, [place] [id number] [place] [address] 27340- 7544 Jun, Diabetes E11.9 ; Diabetic neuropathy E11.40 ; Degenerative disc disease, lumbar M51.36 ; HTN (hypertension) I10 ; Gastritis K29.70 ; Hyperlipidemia E78.5 ; Unspecified episodic mood disorder F39 ; Depression F32.9 and CAD (coronary artery disease) I25.10 [place] [id number] [place] [address] 15041- 0429 Jun, [address] 42793- 6449 Jun, [place] [id number] [place] [address] 22919- 0663 Jun, Diabetes E11.9 ; Diabetic neuropathy E11.40 ; Degenerative disc disease, lumbar M51.36 ; HTN (hypertension) I10 ; Gastritis K29.70 ; Chronic pain G89.29 ; Insomnia G47.00 and Unspecified episodic mood disorder F39 [facility] [id number] [place] [address] 45911- 4780 May, Diabetic neuropathy E11.40 ; Degenerative disc disease, lumbar M51.36 ; HTN (hypertension) I10 ; Gastritis K29.70 ; Hyperlipidemia E78.5 ; Chronic pain G89.29 ; Insomnia G47.00 ; Unspecified episodic mood disorder F39 ; Diabetes E11.9 ; CAD (coronary artery disease) I25.10 and H/O Gram positive sepsis Z86.19 [facility] [address] 38447- 7222 May, [facility] [address] 93931- 7493 May, [facility] [address] 77411- 3217 May, [facility] [address] 21051- 6824 May, [facility] [id number] [place] [address] 32599- 3010 May, Diabetes E11.9 ; Chronic pain G89.29 ; UTI (urinary tract infection) N39.0 ; Hyperlipidemia E78.5 and Diabetic neuropathy E11.40 [facility] [id number] [place] [address] 33879- 3820 May, Insomnia, unspecified G47.00 and Chronic pain G89.29 [facility] [id number] [place] [address] 58412- 0505 May, [facility] [address] 30021- 7271 May, [facility] [id number] [place] [address] 41340- 6990 May, [facility] [address] 89434- 9473 Apr, Insomnia, unspecified G47.00 ; Chronic pain G89.29 and Unspecified episodic mood disorder F39 [place] [id number] [place] [address] 04020- 6233 Apr, Unspecified episodic mood disorder F39 [place] [id number] [place] [address] 94176- 4591 Apr, Major depression F32.9 [place] [address] 67245- 1907 Apr, [place] [id number] [place] [address] 30534- 8583 Apr, Diabetes E11.9 ; Diabetic neuropathy E11.40 ; Degenerative disc disease, lumbar M51.36 ; HTN (hypertension) I10 ; Gastritis K29.70 ; Hyperlipidemia E78.5 ; Chronic pain G89.29 and Insomnia G47.00 [place] [address] 74590- 1735 Mar, [place] [id number] [place] [address] 06225- 4162 Mar, [place] [id number] [place] [address] 21960- 3077 Mar, [place] [id number] [place] [address] 46535- 3343 Mar, Diabetes mellitus 250.00 ; Diabetic neuropathy 250.60 ; CAD (coronary artery disease) 414.00 ; Degenerative disc disease, lumbar 722.52 ; Gastritis 535.50 and Insomnia 780.52 [place] [id number] [place] [address] 55140- 8867 Mar, Diabetes mellitus 250.00 ; Degenerative disc disease, lumbar 722.52 ; Essential hypertension 401.9 ; Gastritis 535.50 and Chronic pain 338.29 [place] [id number] [place] [address] 57340- 1982 Feb, [place] [address] [place] [address]- 1298 Feb, [facility] [id number] [place] [address] 79920- 0747 Jan, [facility] [id number] [place] [address] 62089- 3419 Jan, Diabetes mellitus 250.00 ; Diabetic neuropathy 250.60 ; Degenerative disc disease, lumbar 722.52 ; CAD (coronary artery disease) 414.00 ; Essential hypertension 401.9 ; Gastritis 535.50 ; Hyperlipidemia 272.4 and Distal end of ulna fracture, closed 813.43 [facility] [id number] [place] [address] 82227- 3598 Dec, Wrist pain 719.43 and Diabetes mellitus 250.00 [facility] [id number] [place] [address] 73846- 6986 May, [facility] [id number] [place] [address] 36201- 4857 Dec, [facility] [id number] [place] [address] 89737- 0685 November, [facility] [id number] [place] [address] 69120- 5051 16 Oct, 2009 [facility] [id number] [place] [address] 11318- 4002 Sep, [facility] [id number] [place] [address] 99464- 8110 Sep, [facility] [id number] [place] [address] 72716- 6346 Jun, [facility] [id number] [place] [address] 95715015- 7860 Jun, [facility] [id number] [place] [address] 23038- 3718 14 Jun, 2009 [facility] [id number] [place] [address] 02003- 6496 Jun, [facility] [address], [place] [address]- 0024 Jun, [facility] [address], [place] [address]- 8956 Jun, [facility] [address], [place] [address]- 1280 Jun, [facility] [address], [place] [address]- 8348 May, [facility] [address], [place] [address]- 1906 May, [facility] [address], [place] [address]- 9284 May, [facility] [address], [place] [address]- 1963 May, [facility] [address], [place] [address]- 9940 Apr, [facility] [address]- 9984 Apr, [facility] [address] 1873 Apr, [facility] [address], [place] [address]- 2209 Mar, [facility] [address], [place] [address]- 3725 Dec, IMMUNIZATIONS No Known Immunizations SOCIAL HISTORY Never Assessed REASON FOR VISIT insulin pump issues PLAN OF CARE VITAL SIGNS MEDICATIONS Unknown [...]
--- OUTSIDE RECORDS SUMMARY | 2018-01-18 11:15 | XMS REPORT ---
Author Author PATRICK Peralta Organization [facility] Address [address] [place] [address] Care Team Providers Care Section Chief Name Role Phone Kathryn PATRICK Unavailable PROBLEMS Type Condition ICD9-CM Code LAE50-WE Code Onset Dates Condition Status SNOMED Code Problem Type 2 diabetes mellitus with hyperglycemia E11.65 Active [id number] Problem Obsessive-compulsive disorder, unspecified type F42.9 Active 988753220 Problem Major depressive disorder, recurrent episode, moderate F33.1 Active 856986718 Problem Falls frequently R29.6 Active 878566696 Problem Diabetes E11.9 Active 969598972 Problem Type 2 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 E11.49 Active 14868817 Problem History of pulmonary embolism Z86.711 Active 690096583 Problem emt 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.4 Active 305300048 Problem 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.29 Active 72168704 Problem Hyperlipidemia E78.5 Active 56787128 Problem Insomnia G47.00 Active 202296895 Problem HTN (hypertension) I10 Active 02368657 Problem Chronic pain G89.29 Active 88938791 Problem CAD (coronary artery disease) I25.10 Active 02514033 Problem Degenerative disc disease, lumbar M51.36 Active 17144987 Problem Post-traumatic stress disorder F43.10 Active 59905540 ALLERGIES No Information ENCOUNTERS Encounter Location Date Diagnosis [facility] [address] [facility] [id number] [address] Sep, [facility] [id number] [place] [address] 76704- 3310 Sep, Falls frequently R29.6 ; emt 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.4 and Type 2 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 E11.49 [facility] [address], [place] [address] Sep, [facility] [id number] [place] [address] 83000- 7368 Sep, Diabetes E11.9 [facility] [address], [place] [address] 8[address] Aug, [facility] [id number] [place] [address] 84468- 5663 Aug, Chronic pain G89.29 [facility] [id number] [place] [address] 01943- 3825 Aug, [facility] [id number] [place] [address] 25070- 7692 Aug, Chronic pain G89.29 [facility] [id number] [place] [address] 21112- 6950 Jul, [facility] [id number] [place] [address] 54942- 7694 Jul, Diabetes E11.9 and 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.29 [facility] [id number] [place] [address] 29123- 9620 Jul, 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.29 [facility] [address], [place] [address] 3234 Jul, [facility] [address] [place] [address] 61302- 5229 Jul, Chronic pain G89.29 [facility] [address], [place] [address] 2333 Jun, Diabetes E11.9 [facility] [address] [place] [address] 19515- 9775 Jun, Chronic pain G89.29 [facility] [address], [place] [address] 6126 13 Dec, 2017 Diabetes E11.9 ; Atypical chest pain R07.89 ; shelter 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.4 ; 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.29 ; Type 2 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 E11.49 ; History of pulmonary embolism Z86.711 and History of CVA (cerebrovascular accident) Z86.73 [facility] [address] [id number] [place] [address] 99268- 4568 27 May, 2017 [place] [address] 50716- 1597 May, Chronic pain G89.29 [facility] [address] 82158- 4283 Apr, Chronic pain G89.29 [facility] [address] [id number] [place] [address] 89297- 6275 Apr, [facility] [address] 26091- 4483 Mar, Chronic pain G89.29 [facility] [address] [id number] [place] [address] 60610- 1609 18 Mar, 2017 Diabetes E11.9 [facility] [id number] [place] [address] 91539- 0872 07 Mar, 2017 [place] [id number] [place] [address] 70334- 0876 Mar, Degenerative disc disease, lumbar M51.36 [facility] [id number] [place] [address] 33986- 2454 Feb, Diabetes E11.9 [facility] [id number] [place] [address] 70351- 2059 Feb, Diabetes E11.9 [facility] [id number] [place] [address] 17326- 9428 16 Feb, 2017 Diabetes E11.9 ; HTN (hypertension) I10 ; Diabetic neuropathy E11.40 and Leg cramps R25.2 [facility] [address] [place] [address]- 6333 15 Feb, 2017 Sprain of calcaneofibular ligament of right ankle, subsequent encounter S93.411D ; Major depressive disorder, recurrent episode, moderate F33.1 ; Diabetes E11.9 ; Hyperlipidemia E78.5 ; Post-traumatic stress disorder F43.10 and Other irritable bowel syndrome K58.8 [facility] [id number] [place] [address] 08949- 4442 14 Feb, 2017 Major depressive disorder, recurrent episode, moderate F33.1 ; Post-traumatic stress disorder F43.10 and Obsessive-compulsive disorder , unspecified type F42.9 [facility] [address] 15645- 3693 Feb, [facility] [address] 54792- 1314 Feb, Post-traumatic stress disorder F43.10 and Major depressive disorder, recurrent, moderate F33.1 [facility] [place] [address] 28028- 6313 Feb, Diabetes E11.9 [facility] [address] 29641- 6757 Feb, Degenerative disc disease, lumbar M51.36 [facility] [place] [id number] [place] [address] 05100- 6193 Feb, Post-traumatic stress disorder F43.10 and Major depressive disorder, recurrent, moderate F33.1 [facility] [address] [id number] [place] [address] 75301- 8960 Feb, [facility] [address] 07083- 9469 Feb, Diabetes E11.9 [facility] [id number] [place] [address] 35590- 2383 Jan, Diabetes E11.9 [facility] [id number] [place] [address] 76247- 6440 Jan, Post-traumatic stress disorder F43.10 and Major depressive disorder, recurrent, moderate F33.1 [facility] [address] [facility] [id number], [place] [address] 2546 Jan, Diabetes E11.9 [facility] [address] [facility] [id number], [place] [address] 2546 Jan, Diabetes E11.9 [facility] [id number] [place] [address] 06888 2546 Jan, [facility] [address] [facility] [id number] [place] [address] 10073 2546 Jan, [facility] [id number] [place] [address] 25873- 4649 Jan, Post-traumatic stress disorder F43.10 and Major depressive disorder, recurrent, moderate F33.1 [facility] [address] [place] [address] 55479- 3726 Jan, [facility] [id number] [place] [address] 65813 2546 Jan, Major depressive disorder, recurrent episode, moderate F33.1 ; Post-traumatic stress disorder F43.10 and Obsessive-compulsive disorder , unspecified type F42.9 [facility] [id number], [place] [address]- 2543 Jan, [facility] [address] [place] [address] 61636 2546 Jan, Diabetes E11.9 [facility] [id number], [place] [address] 2546 Jan, [facility] [address] [place] [address] 26818937- 0896 Jan, Sprain of calcaneofibular ligament of right ankle, subsequent encounter S93.411D [facility] [id number], [place] [address]- 2546 Jan, Post-traumatic stress disorder F43.10 and Major depressive disorder, recurrent, moderate F33.1 [facility] [place] [address] [place] [address] 80159- 2017 07 Jan, 2017 Diabetes E11.9 [facility] [place] [address] [place] [address] 98777- 3054 16 Dec, 2016 Major depressive disorder, recurrent episode, moderate F33.1 ; Post-traumatic stress disorder F43.10 and Obsessive-compulsive disorder , unspecified type F42.9 [facility] [place] [id number] [place] [address] 14886- 1862 15 Dec, 2016 [place] [id number] [place] [address] 86749- 1684 14 Dec, 2016 Sprain of calcaneofibular ligament of right ankle, subsequent encounter S93.411D [facility] [place] [id number] [place] [address] 58331- 5242 13 Dec, 2016 Post-traumatic stress disorder F43.10 and Major depressive disorder, recurrent, moderate F33.1 [facility] [place] [id number] [place] [address] 52553- 8173 13 Dec, 2016 Sprain of calcaneofibular ligament of right ankle, subsequent encounter S93.411D [facility] [address] [place] [address] 29873- 7376 12 Dec, 2016 Hyperlipidemia E78.5 [place] [place] [id number] [place] [address] 54363- 7372 08 Dec, 2016 [place] [id number] [place] [address] 58386- 1544 07 Dec, 2016 Diabetes E11.9 ; Diabetic neuropathy E11.40 ; Degenerative disc disease, lumbar M51.36 ; Hyperlipidemia E78.5 ; Insomnia G47.00 ; CAD ( coronary artery disease) I25.10 ; Major depressive disorder, recurrent, moderate F33.1 ; Post-traumatic stress disorder F43.10 and Other irritable bowel syndrome K58.8 [place] [place] [address] [id number] [place] [address] 33642- 9087 November, Diabetic neuropathy E11.40 and Hyperlipidemia E78.5 [facility] [place] [id number] [place] [address] 00298- 3685 November, Degenerative disc disease, lumbar M51.36 [facility] [id number] [place] [address] 22497- 8732 Oct, [facility] [address] 79205- 8093 Oct, Degenerative disc disease, lumbar M51.36 [facility] [place] [id number] [place] [address] 85848- 6452 Sep, Degenerative disc disease, lumbar M51.36 and HTN ( hypertension) I10 [facility] [place] [address] [id number] [place] [address] 39198- 6616 Sep, Diabetic neuropathy E11.40 ; HTN (hypertension) I10 ; Degenerative disc disease, lumbar M51.36 ; Hyperlipidemia E78.5 ; Insomnia G47.00 ; CAD (coronary artery disease) I25.10 and Diabetes E11.9 [facility] [place] [id number] [place] [address] 80256- 0392 Aug, [facility] [place] [address] [id number] [place] [address] 28543- 1158 Aug, Type 2 diabetes mellitus with hyperglycemia E11.65 [facility] [place] [id number] [place] [address] 12616- 2630 Aug, [place] [place] [id number] [place] [address] 94213- 8416 Jul, [place] [place] [id number] [place] [address] 95432- 2511 Jul, [place] [id number] [place] [address] 45689- 2451 Jun, [place] [address] [id number] [place] [address] 42018- 3507 Jun, [facility] [address], [place] [address]- 9872 Jun, [place] [address] [id number] [place] [address] 80186- 2112 Jun, [place] [address], [place] [address]- 8531 May, Major depressive disorder, recurrent episode, moderate F33.1 and Post-traumatic stress disorder F43.10 [facility] [place] [address] [id number] [place] [address] 03585- 8397 May, Major depressive disorder, recurrent episode, moderate F33.1 and Post-traumatic stress disorder F43.10 [facility] [place] [address], [place] [address]- 2462 May, Diabetes E11.9 ; Diabetic neuropathy E11.40 ; HTN ( hypertension) I10 ; Gastritis K29.70 ; Hyperlipidemia E78.5 ; Insomnia G47.00 and Major depressive disorder, recurrent, moderate F33.1 [facility] [address], [place] [address]- 9713 May, Major depressive disorder, recurrent episode, moderate F33.1 [facility] [place] [address], [place] [address]- 7179 Apr, [facility] [address] [place] [address] 56617- 6055 Apr, Major depressive disorder, recurrent episode, moderate F33.1 and Post-traumatic stress disorder F43.10 [facility] [address], [place] [address]- 0773 Apr, Diabetes E11.9 ; Diabetic neuropathy E11.40 ; Degenerative disc disease, lumbar M51.36 ; HTN (hypertension) I10 ; Hyperlipidemia E78.5 ; Chronic pain G89.29 ; CAD (coronary artery disease) I25.10 and Major depressive disorder, recurrent, moderate F33.1 [facility] [address] [place] [address] 14905- 5123 Apr, Major depressive disorder, recurrent episode, moderate F33.1 and Post-traumatic stress disorder F43.10 [place] [address] [id number] [place] [address] 48885- 1127 Apr, Major depressive disorder, recurrent episode, moderate F33.1 and Post-traumatic stress disorder F43.10 [facility] [address] 11083- 5686 Apr, Major depressive disorder, recurrent episode, moderate F33.1 and Unspecified episodic mood disorder F39 [facility] [place] [address] [id number] [place] [address] 95093- 9659 Apr, Chronic pain G89.29 ; Diabetic neuropathy E11.40 ; HTN ( hypertension) I10 ; Insomnia G47.00 ; CAD (coronary artery disease) I25.10 ; Hyperlipidemia E78.5 ; Degenerative disc disease, lumbar M51.36 ; Diabetes E11.9 and Gastritis K29.70 [place] [id number] [place] [address] 65146- 9613 Sep, [place] [address] [id number] [place] [address] 36923- 1682 Aug, [place] [id number] [place] [address] 20370- 6158 Jul, Major depressive disorder, recurrent episode, moderate F33.1 [facility] [address] [id number] [place] [address] 29710- 5197 Jul, Unspecified episodic mood disorder F39 [facility] [place] [id number] [place] [address] 62071- 0751 Jul, [facility] [address] [place] [address] [id number] [place] [address] 10450- 7455 Jul, [place] [address] [id number] [place] [address] 97372- 8411 Jul, [facility] [address] 81810- 7265 Jul, Type 2 diabetes mellitus with hyperglycemia E11.65 ; Diabetic neuropathy E11.40 ; Degenerative disc disease, lumbar M51.36 ; HTN ( hypertension) I10 ; Gastritis K29.70 ; Hyperlipidemia E78.5 and CAD (coronary artery disease) I25.10 [place] [address] [place] [id number] [place] [address] 58484- 9297 Jul, Severe episode of recurrent major depressive disorder, without psychotic features F33.2 [place] [address] 27215- 4994 Jul, [facility] [address] 01341- 4433 Jun, [facility] [address] 82179- 3753 Jun, Diabetes E11.9 ; Diabetic neuropathy E11.40 ; Degenerative disc disease, lumbar M51.36 ; HTN (hypertension) I10 ; Gastritis K29.70 ; Hyperlipidemia E78.5 ; Unspecified episodic mood disorder F39 ; Depression F32.9 and CAD (coronary artery disease) I25.10 [place] [address] [id number] [place] [address] 75567- 6403 Jun, [place] [address] [place] [address] [id number] [place] [address] 54355- 0118 Jun, [facility] [address] 01348- 1580 Jun, Diabetes E11.9 ; Diabetic neuropathy E11.40 ; Degenerative disc disease, lumbar M51.36 ; HTN (hypertension) I10 ; Gastritis K29.70 ; Chronic pain G89.29 ; Insomnia G47.00 and Unspecified episodic mood disorder F39 [facility] [address] 98256- 1195 May, Diabetic neuropathy E11.40 ; Degenerative disc disease, lumbar M51.36 ; HTN (hypertension) I10 ; Gastritis K29.70 ; Hyperlipidemia E78.5 ; Chronic pain G89.29 ; Insomnia G47.00 ; Unspecified episodic mood disorder F39 ; Diabetes E11.9 ; CAD (coronary artery disease) I25.10 and H/O Gram positive sepsis Z86.19 [facility] [id number] [place] [address] 81024- 7176 May, [facility] [id number] [place] [address] 73831- 9652 May, [facility] [id number] [place] [address] 35828- 1473 May, [facility] [id number] [place] [address] 22418- 9470 May, [facility] [id number] [place] [address] 88941- 9197 May, UTI (urinary tract infection) N39.0 ; Diabetes E11.9 ; Diabetic neuropathy E11.40 ; Hyperlipidemia E78.5 and Chronic pain G89.29 [facility] [id number] [place] [address] 45524- 4756 May, Insomnia, unspecified G47.00 and Chronic pain G89.29 [facility] [id number] [place] [address] 30862- 3271 May, [facility] [id number] [place] [address] 58068- 8958 May, [facility] [id number] [place] [address] 17164- 6805 May, [facility] [id number] [place] [address] 55118- 1762 Apr, Insomnia, unspecified G47.00 ; Chronic pain G89.29 and Unspecified episodic mood disorder F39 [facility] [address] [place] [address] 68771- 1581 Apr, Unspecified episodic mood disorder F39 [facility] [address] [place] [address] 85891- 0337 Apr, Major depression F32.9 [place] [id number] [place] [address] 99534- 6193 Apr, [facility] [address] 76856- 1231 Apr, Diabetes E11.9 ; Diabetic neuropathy E11.40 ; Degenerative disc disease, lumbar M51.36 ; HTN (hypertension) I10 ; Gastritis K29.70 ; Hyperlipidemia E78.5 ; Chronic pain G89.29 and Insomnia G47.00 [place] [id number] [place] [address] 61350- 0472 Mar, [place] [address] 76529- 5800 Mar, [place] [id number] [place] [address] 38296- 6169 Mar, [place] [address] 95417- 5522 Mar, Diabetes mellitus 250.00 ; Diabetic neuropathy 250.60 ; CAD (coronary artery disease) 414.00 ; Degenerative disc disease, lumbar 722.52 ; Gastritis 535.50 and Insomnia 780.52 [place] [id number] [place] [address] 58993- 8854 Mar, Diabetes mellitus 250.00 ; Degenerative disc disease, lumbar 722.52 ; Essential hypertension 401.9 ; Gastritis 535.50 and Chronic pain 338.29 [place] [id number] [place] [address] 52693- 4638 Feb, [place] [id number] [place] [address] 70999- 4170 Feb, [address] 55031- 4991 Jan, [place] [id number] [place] [address] 96589- 9957 Jan, Diabetes mellitus 250.00 ; Diabetic neuropathy 250.60 ; Degenerative disc disease, lumbar 722.52 ; CAD (coronary artery disease) 414.00 ; Essential hypertension 401.9 ; Gastritis 535.50 ; Hyperlipidemia 272.4 and Distal end of ulna fracture, closed 813.43 [facility] [id number] [place] [address] 35987- 8349 29 Dec, 2014 Wrist pain 719.43 and Diabetes mellitus 250.00 [facility] [id number] [place] [address] 45596- 5062 May, [facility] [id number] [place] [address] 79970- 4527 Dec, [facility] [address] 94341- 0550 November, [facility] [id number] [place] [address] 89956- 4170 Oct, [facility] [id number] [place] [address] 47734- 2579 Sep, [facility] [id number] [place] [address] 31580- 9152 Sep, [facility] [id number] [place] [address] 13628- 2890 Jun, [facility] [id number] [place] [address] 19480- 6552 Jun, [facility] [id number] [place] [address] 71550- 0709 14 Jun, 2009 [facility] [id number] [place] [address] 76094- 4211 Jun, [facility] [id number] [place] [address] 258826- 9092 Jun, [facility] [id number] [place] [address] 35450- 2545 Jun, [facility] [id number] [place] [address] 809817- 5996 Jun, [facility] [id number], [place] [address] 2546 May, [facility] [address] [facility] [id number], [place] [address] 2546 May, [facility] [address] [facility] [id number], [place] [address] 2546 May, [facility] [address], [place] [address]- 2546 May, [facility] [address] [facility] [id number], [place] [address] 2548 Apr, [facility] [address], [place] [address] 2546 Apr, [facility] [address], [place] [address] 2546 Apr, [facility] [address], [place] [address] 2546 Mar, [facility] [id number], [place] [address] 2543 Dec, IMMUNIZATIONS No Known Immunizations SOCIAL HISTORY Never Assessed REASON FOR VISIT Lab results PLAN OF CARE VITAL SIGNS MEDICATIONS Unknown [...]
--- OUTSIDE RECORDS SUMMARY | 2018-01-18 11:16 | XMS REPORT ---
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 Gear Name Role Phone PATRICK Peralta Unavailable PROBLEMS Type Condition ICD9-CM Code [id number] Code Onset Dates Condition Status SNOMED Code Problem Type 2 diabetes mellitus with hyperglycemia E11.65 Active [id number] Problem Obsessive-compulsive disorder, unspecified type F42.9 Active 442703850 Problem Major depressive disorder, recurrent episode, moderate F33.1 Active 195821454 Problem Falls frequently R29.6 Active 762312472 Problem Diabetes E11.9 Active 289616050 Problem Type 2 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 E11.49 Active 86524516 Problem History of pulmonary embolism Z86.711 Active 671170293 Problem terminal gauger 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.4 Active 488790728 Problem 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.29 Active 36144637 Problem Hyperlipidemia E78.5 Active 98650491 Problem Insomnia G47.00 Active 211063543 Problem HTN (hypertension) I10 Active 20197471 Problem Chronic pain G89.29 Active 69503196 Problem CAD (coronary artery disease) I25.10 Active 76126251 Problem Degenerative disc disease, lumbar M51.36 Active 82364409 Problem Post-traumatic stress disorder F43.10 Active 55278721 ALLERGIES No Information ENCOUNTERS Encounter Location Date Diagnosis [facility] [address] [facility] [id number] [address] November, [facility] [id number] [place] [address] 42773- 6942 Sep, Diabetes E11.9 [facility] [id number] [address] Sep, Chronic pain G89.29 [facility] [address] [address] Sep, [facility] [id number] [place] [address] 65658- 5780 Sep, Falls frequently R29.6 ; detention 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.4 and Type 2 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 E11.49 [facility] [id number] [place] [address] 91022- 4211 Sep, [facility] [id number] [place] [address] 06859- 9781 Sep, Diabetes E11.9 [facility] [id number] [place] [address] 17690- 8507 Aug, [facility] [id number] [address] 4[address] Aug, Chronic pain G89.29 [facility] [address] [address] 0098 Aug, [facility] [id number] [place] [address] 08673- 2345 Aug, Chronic pain G89.29 [facility] [address] [address] 2698 Jul, [facility] [address] [address] 5992 Jul, Diabetes E11.9 and 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.29 [facility] [address] [address] 1822 Jul, 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.29 [facility] [address] [address] 0094 Jul, [facility] [address] [address] 5807 Jul, Chronic pain G89.29 [facility] [id number] [place] [address] 74443- 2739 Jun, Diabetes E11.9 [facility] [id number] [place] [address] 77069- 6754 Jun, Chronic pain G89.29 [facility] [id number] [place] [address] 76259- 6603 Jun, Diabetes E11.9 ; Atypical chest pain R07.89 ; terminal gauger 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.4 ; 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.29 ; Type 2 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 E11.49 ; History of pulmonary embolism Z86.711 and History of CVA (cerebrovascular accident) Z86.73 [facility] [id number] [place] [address] 79950- 9090 May, [facility] [id number] [place] [address] 25204- 2056 May, Chronic pain G89.29 [facility] [id number] [place] [address] 53879- 8211 Apr, Chronic pain G89.29 [facility] [id number] [place] [address] 89410- 2176 Apr, [facility] [id number] [place] [address] 46055- 9103 Mar, Chronic pain G89.29 [facility] [id number] [place] [address] 12629- 0146 18 Mar, 2017 Diabetes E11.9 [facility] [id number] [place] [address] 41802- 2380 Mar, [facility] [id number] [place] [address] 23896- 5170 Mar, Degenerative disc disease, lumbar M51.36 [facility] [id number] [place] [address] 49844- 4075 Feb, Diabetes E11.9 [place] [id number] [place] [address] 54065- 9981 23 Feb, 2017 Diabetes E11.9 [place] [address] 15216- 5322 16 Feb, 2017 Diabetes E11.9 ; HTN (hypertension) I10 ; Diabetic neuropathy E11.40 and Leg cramps R25.2 [place] [address] 47811- 8113 15 Feb, 2017 Sprain of calcaneofibular ligament of right ankle, subsequent encounter S93.411D ; Major depressive disorder, recurrent episode, moderate F33.1 ; Diabetes E11.9 ; Hyperlipidemia E78.5 ; Post-traumatic stress disorder F43.10 and Other irritable bowel syndrome K58.8 [place] [id number] [place] [address] 42343- 1995 14 Feb, 2017 Major depressive disorder, recurrent episode, moderate F33.1 ; Post-traumatic stress disorder F43.10 and Obsessive-compulsive disorder , unspecified type F42.9 [place] [id number] [place] [address] 43024- 1255 Feb, [place] [id number] [place] [address] 12063- 1980 Feb, Post-traumatic stress disorder F43.10 and Major depressive disorder, recurrent, moderate F33.1 [place] [id number] [place] [address] 09754- 1762 Feb, Diabetes E11.9 [place] [id number] [place] [address] 13029- 2448 Feb, Degenerative disc disease, lumbar M51.36 [place] [address] 37801- 8238 Feb, Post-traumatic stress disorder F43.10 and Major depressive disorder, recurrent, moderate F33.1 [place] [id number] [place] [address] 32504- 2000 Feb, [facility] [address] [address] 8403 Feb, Diabetes E11.9 [facility] [address] [facility] [id number] [address] 0886 Jan, Diabetes E11.9 [facility] [address] [address]- 8126 Jan, Post-traumatic stress disorder F43.10 and Major depressive disorder, recurrent, moderate F33.1 [facility] [address] [facility] [id number] [place] [address] 49885- 0475 Jan, Diabetes E11.9 [facility] [id number] [place] [address] 08146084- 9336 Jan, Diabetes E11.9 [facility] [address] [place] [address] 03344- 2457 Jan, [facility] [id number] [place] [address] 04066- 6027 Jan, [facility] [address] [place] [address] 29761- 8344 Jan, Post-traumatic stress disorder F43.10 and Major depressive disorder, recurrent, moderate F33.1 [facility] [address] [address]- 9250 Jan, [facility] [address] [place] [address] 83054- 8756 Jan, Major depressive disorder, recurrent episode, moderate F33.1 ; Post-traumatic stress disorder F43.10 and Obsessive-compulsive disorder , unspecified type F42.9 [facility] [address] [address]- 7628 Jan, [facility] [id number] [place] [address] 47009- 9864 Jan, Diabetes E11.9 [facility] [id number] [place] [address] 96315- 8787 13 Jan, 2017 [facility] [address] [place] [address] 41701- 7588 13 Jan, 2017 Sprain of calcaneofibular ligament of right ankle, subsequent encounter S93.411D [facility] [address] [place] [address] 04724- 0991 13 Jan, 2017 Post-traumatic stress disorder F43.10 and Major depressive disorder, recurrent, moderate F33.1 [facility] [id number] [place] [address] 00428- 6137 07 Jan, 2017 Diabetes E11.9 [place] [id number] [place] [address] 962978- 2005 16 Dec, 2016 Major depressive disorder, recurrent episode, moderate F33.1 ; Post-traumatic stress disorder F43.10 and Obsessive-compulsive disorder , unspecified type F42.9 [place] [id number] [place] [address] 02552- 0556 15 Dec, 2016 [place] [id number] [place] [address] 40579- 0529 14 Dec, 2016 Sprain of calcaneofibular ligament of right ankle, subsequent encounter S93.411D [place] [id number] [place] [address] 48653- 1262 13 Dec, 2016 Post-traumatic stress disorder F43.10 and Major depressive disorder, recurrent, moderate F33.1 [place] [id number] [place] [address] 38319- 7844 13 Dec, 2016 Sprain of calcaneofibular ligament of right ankle, subsequent encounter S93.411D [place] [id number] [place] [address] 35334- 9027 12 Dec, 2016 Hyperlipidemia E78.5 [facility] [address] [place] [address] 52536- 5002 08 Dec, 2016 [facility] [id number] [place] [address] 81992- 2944 Dec, Diabetes E11.9 ; Diabetic neuropathy E11.40 ; Degenerative disc disease, lumbar M51.36 ; Hyperlipidemia E78.5 ; Insomnia G47.00 ; CAD ( coronary artery disease) I25.10 ; Major depressive disorder, recurrent, moderate F33.1 ; Post-traumatic stress disorder F43.10 and Other irritable bowel syndrome K58.8 [place] [address] 94154- 1496 November, Diabetic neuropathy E11.40 and Hyperlipidemia E78.5 [place] [address] 26743- 4457 November, Degenerative disc disease, lumbar M51.36 [place] [address] 40884- 6116 Oct, [address] 79413- 0763 Oct, Degenerative disc disease, lumbar M51.36 [place] [address] 67038- 5989 Sep, Degenerative disc disease, lumbar M51.36 and HTN ( hypertension) I10 [address] 38657- 3218 Sep, Diabetic neuropathy E11.40 ; HTN (hypertension) I10 ; Degenerative disc disease, lumbar M51.36 ; Hyperlipidemia E78.5 ; Insomnia G47.00 ; CAD (coronary artery disease) I25.10 and Diabetes E11.9 [place] [id number] [place] [address] 63322- 7998 Aug, [place] [address] 59568- 5889 Aug, Type 2 diabetes mellitus with hyperglycemia E11.65 [place] [id number] [place] [address] 53782- 4995 Aug, [place] [address] 13399- 2546 Jul, [facility] [address] 3224 Jul, [facility] [address] [address]- 9906 Jun, [facility] [address] [address]- 8666 Jun, [facility] [address] [address]- 5147 Jun, [facility] [address] [address]- 5612 Jun, [facility] [address] 0745 May, Major depressive disorder, recurrent episode, moderate F33.1 and Post-traumatic stress disorder F43.10 [facility] [address] [address]- 6006 May, Major depressive disorder, recurrent episode, moderate F33.1 and Post-traumatic stress disorder F43.10 [facility] [address] [address]- 1123 May, Diabetes E11.9 ; Diabetic neuropathy E11.40 ; HTN ( hypertension) I10 ; Gastritis K29.70 ; Hyperlipidemia E78.5 ; Insomnia G47.00 and Major depressive disorder, recurrent, moderate F33.1 [facility] [address] [address]- 1309 May, Major depressive disorder, recurrent episode, moderate F33.1 [facility] [address] 5029 Apr, [facility] [address] 5922 Apr, Major depressive disorder, recurrent episode, moderate F33.1 and Post-traumatic stress disorder F43.10 [facility] [id number] [place] [address] 03465- 9665 Apr, Diabetes E11.9 ; Diabetic neuropathy E11.40 ; Degenerative disc disease, lumbar M51.36 ; HTN (hypertension) I10 ; Hyperlipidemia E78.5 ; Chronic pain G89.29 ; CAD (coronary artery disease) I25.10 and Major depressive disorder, recurrent, moderate F33.1 [place] [id number] [place] [address] 55172- 6778 Apr, Major depressive disorder, recurrent episode, moderate F33.1 and Post-traumatic stress disorder F43.10 [place] [id number] [place] [address] 40565- 5898 Apr, Major depressive disorder, recurrent episode, moderate F33.1 and Post-traumatic stress disorder F43.10 [place] [id number] [place] [address] 78167- 1321 Apr, Major depressive disorder, recurrent episode, moderate F33.1 and Unspecified episodic mood disorder F39 [place] [id number] [place] [address] 52702- 9083 Apr, Chronic pain G89.29 ; Diabetic neuropathy E11.40 ; HTN ( hypertension) I10 ; Insomnia G47.00 ; CAD (coronary artery disease) I25.10 ; Hyperlipidemia E78.5 ; Degenerative disc disease, lumbar M51.36 ; Diabetes E11.9 and Gastritis K29.70 [place] [id number] [place] [address] 52601- 3904 Sep, [place] [id number] [place] [address] 59837- 0340 Aug, [place] [id number] [place] [address] 42211- 7547 Jul, Major depressive disorder, recurrent episode, moderate F33.1 [place] [id number] [place] [address] 35358- 4904 Jul, Unspecified episodic mood disorder F39 [place] [address] [place] [address]- 9086 Jul, [place] [id number] [place] [address] 81603- 7286 Jul, [place] [id number] [place] [address] 23731- 1234 Jul, [place] [id number] [place] [address] 56883- 9310 Jul, Type 2 diabetes mellitus with hyperglycemia E11.65 ; Diabetic neuropathy E11.40 ; Degenerative disc disease, lumbar M51.36 ; HTN ( hypertension) I10 ; Gastritis K29.70 ; Hyperlipidemia E78.5 and CAD (coronary artery disease) I25.10 [place] [id number] [place] [address] 00453- 5513 Jul, Severe episode of recurrent major depressive disorder, without psychotic features F33.[address] 39153- 1149 Jul, [place] [id number] [place] [address] 07320- 3175 Jun, [place] [id number] [place] [address] 34956- 9124 Jun, Diabetes E11.9 ; Diabetic neuropathy E11.40 ; Degenerative disc disease, lumbar M51.36 ; HTN (hypertension) I10 ; Gastritis K29.70 ; Hyperlipidemia E78.5 ; Unspecified episodic mood disorder F39 ; Depression F32.9 and CAD (coronary artery disease) I25.10 [place] [id number] [place] [address] 28427- 2059 Jun, [address] 50209- 1561 Jun, [place] [id number] [place] [address] 42321- 9564 Jun, Diabetes E11.9 ; Diabetic neuropathy E11.40 ; Degenerative disc disease, lumbar M51.36 ; HTN (hypertension) I10 ; Gastritis K29.70 ; Chronic pain G89.29 ; Insomnia G47.00 and Unspecified episodic mood disorder F39 [facility] [id number] [place] [address] 07937- 1879 May, Diabetic neuropathy E11.40 ; Degenerative disc disease, lumbar M51.36 ; HTN (hypertension) I10 ; Gastritis K29.70 ; Hyperlipidemia E78.5 ; Chronic pain G89.29 ; Insomnia G47.00 ; Unspecified episodic mood disorder F39 ; Diabetes E11.9 ; CAD (coronary artery disease) I25.10 and H/O Gram positive sepsis Z86.19 [facility] [address] 76348- 5365 May, [facility] [address] 35081- 8495 May, [facility] [address] 45307- 4184 May, [facility] [address] 05758- 4005 May, [facility] [id number] [place] [address] 04596- 3387 May, Diabetes E11.9 ; Chronic pain G89.29 ; UTI (urinary tract infection) N39.0 ; Hyperlipidemia E78.5 and Diabetic neuropathy E11.40 [facility] [id number] [place] [address] 17930- 6188 May, Insomnia, unspecified G47.00 and Chronic pain G89.29 [facility] [id number] [place] [address] 59824- 2816 May, [facility] [address] 87360- 1168 May, [facility] [id number] [place] [address] 47398- 6950 May, [facility] [address] 15771- 1236 Apr, Insomnia, unspecified G47.00 ; Chronic pain G89.29 and Unspecified episodic mood disorder F39 [place] [id number] [place] [address] 39889- 2916 Apr, Unspecified episodic mood disorder F39 [place] [id number] [place] [address] 02571- 7763 Apr, Major depression F32.9 [place] [address] 55262- 3599 Apr, [place] [id number] [place] [address] 54651- 1268 Apr, Diabetes E11.9 ; Diabetic neuropathy E11.40 ; Degenerative disc disease, lumbar M51.36 ; HTN (hypertension) I10 ; Gastritis K29.70 ; Hyperlipidemia E78.5 ; Chronic pain G89.29 and Insomnia G47.00 [place] [address] 80014- 2391 Mar, [place] [id number] [place] [address] 82069- 4928 Mar, [place] [id number] [place] [address] 54589- 3048 Mar, [place] [id number] [place] [address] 58337- 5592 Mar, Diabetes mellitus 250.00 ; Diabetic neuropathy 250.60 ; CAD (coronary artery disease) 414.00 ; Degenerative disc disease, lumbar 722.52 ; Gastritis 535.50 and Insomnia 780.52 [place] [id number] [place] [address] 92029- 6396 Mar, Diabetes mellitus 250.00 ; Degenerative disc disease, lumbar 722.52 ; Essential hypertension 401.9 ; Gastritis 535.50 and Chronic pain 338.29 [place] [id number] [place] [address] 78872- 7357 Feb, [place] [address] [address]- 9611 Feb, [facility] [id number] [place] [address] 62221- 8129 Jan, [facility] [id number] [place] [address] 51149- 3797 Jan, Diabetes mellitus 250.00 ; Diabetic neuropathy 250.60 ; Degenerative disc disease, lumbar 722.52 ; CAD (coronary artery disease) 414.00 ; Essential hypertension 401.9 ; Gastritis 535.50 ; Hyperlipidemia 272.4 and Distal end of ulna fracture, closed 813.43 [facility] [id number] [place] [address] 61623- 8879 Dec, Wrist pain 719.43 and Diabetes mellitus 250.00 [facility] [id number] [place] [address] 97922- 5566 May, [facility] [id number] [place] [address] 59046- 9056 Dec, [facility] [id number] [place] [address] 33067- 1229 November, [facility] [id number] [place] [address] 76462- 0842 16 Oct, 2009 [facility] [id number] [place] [address] 17678- 0717 Sep, [facility] [id number] [place] [address] 07156- 1957 Sep, [facility] [id number] [place] [address] 08587- 4569 Jun, [facility] [id number] [place] [address] 51305617- 4824 Jun, [facility] [id number] [place] [address] 25747- 7010 14 Jun, 2009 [facility] [id number] [place] [address] 88802- 5286 Jun, [facility] [id number] [address]- 0858 Jun, [facility] [address] [address]- 2996 Jun, [facility] [address] [address]- 3725 Jun, [facility] [address] [address]- 7037 May, [facility] [address] [address]- 1948 May, [facility] [address] [address]- 6271 May, [facility] [address] [address]- 8847 May, [facility] [address] [address]- 8029 Apr, [facility] [address]- 4782 Apr, [facility] [address]- 5821 Apr, [facility] [id number] [address]- 2478 Mar, [facility] [address] [address]- 2278 Dec, IMMUNIZATIONS No Known Immunizations SOCIAL HISTORY Never Assessed REASON FOR VISIT BS f/u PLAN OF CARE VITAL SIGNS MEDICATIONS Unknown [...]
--- OUTSIDE RECORDS SUMMARY | 2018-01-18 11:16 | XMS REPORT ---
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 Name Role Phone BLANCA TINAJERONETTE Unavailable PROBLEMS Type Condition ICD9-CM Code [id number] Code Onset Dates Condition Status SNOMED Code Problem Degenerative disc disease, lumbar M51.36 Active 72229157 Problem HTN (hypertension) I10 Active 58284262 Problem Insomnia G47.00 Active 594275771 Problem Leg cramps R25.2 Active 677513756 Problem Obsessive-compulsive disorder, unspecified type F42.9 Active 807341971 Problem Post-traumatic stress disorder F43.10 Active 39370416 Problem CAD (coronary artery disease) I25.10 Active 27878493 Problem Major depressive disorder, recurrent episode, moderate F33.1 Active 073973689 Problem Type 2 diabetes mellitus with hyperglycemia E11.65 Active 222616308087930 Problem Diabetic neuropathy E11.40 Active 660249763 Problem Hyperlipidemia E78.5 Active 90665345 Problem Chronic pain G89.29 Active 43995916 Problem Diabetes E11.9 Active 39633444 Problem Gastritis K29.70 Active 9375798 ALLERGIES Substance Reaction Event Type Date Status Viibryd N/V Drug Allergy Sep, Active Seroquel N/V and "couldn't do anything." Drug Allergy Sep, Active Penicillin V Potassium Unknown Drug Allergy Sep, Active Lexapro N/V, inc. suicidality Drug Allergy Sep, Active Ibuprofen Unknown Drug Allergy Sep, Active Depakote inc. suicidality Drug Allergy Sep, Active SOCIAL HISTORY Never Assessed PLAN OF CARE Activity Details Follow Up 4 Weeks Reason:blood sugar log VITAL SIGNS Height 61 in 2016-09-17 Weight 131.1 lbs 2016-09-17 Temperature 97.9 degrees Fahrenheit 2016-09-17 Heart Rate 76 bpm 2016-09-17 Respiratory Rate 20 2016-09-17 BMI 24.77 kg/m2 2016-09-17 Blood pressure systolic 130 mmHg 2016-09-17 Blood pressure diastolic 92 mmHg 2016-09-17 MEDICATIONS Medication Instructions Dosage Frequency Start Date End Date Duration Status Lisinopril 20 mg Orally Once a day 1 tablet 24h Apr, Active Plavix 75 MG Orally Once a day 1 tablet 24h Active Hydrocodone-Acetaminophen 10-325 MG Orally 3 times a day 1 tablet as needed 8h Aug, Active Levemir FlexTouch 100 UNIT/ML Subcutaneous 30 units at bedtime inject Active Aspir-81 81 MG Orally Once a day 1 tablet 24h Active BuPROPion HCl 75 MG Orally daily 0.5 tablet every am X 2 weeks then 1 tablet every morning with food. 24h May, 30 day(s) Active Crestor 20 mg Orally Once a day 1 tablet 24h Active Metoclopramide HCl 10 mg Orally every 6 hours 1 tab 6h Active Gabapentin 300 MG Orally Three times a day 1 capsule 8h Active NovoLog Flexpen 100 UNIT/ML Subcutaneous 15 units with meals inject Active RESULTS No Results PROCEDURES Procedure Date Ordered Result Body Site [facility] VISIT ESTABLISHED PATIENT September 17, 2016 GLYCATED HEMOGLOBIN TEST September 17, 2016 IMMUNIZATIONS No Known Immunizations MEDICAL (GENERAL) [...]
--- OUTSIDE RECORDS SUMMARY | 2018-01-18 11:16 | XMS REPORT ---
Author Author PATRICK TINAJERO Organization [facility] Address [address] [place] [address] Care Team Providers Care Cash Applications Coordinator Name Role Phone PATRICK TINAJERO Unavailable PROBLEMS Type Condition ICD9-CM Code [id number] Code Onset Dates Condition Status SNOMED Code Problem Degenerative disc disease, lumbar M51.36 Active 16097317 Problem HTN (hypertension) I10 Active 98165209 Problem Insomnia G47.00 Active 516009575 Problem Leg cramps R25.2 Active 600435392 Problem Obsessive-compulsive disorder, unspecified type F42.9 Active 025352770 Problem Post-traumatic stress disorder F43.10 Active 97707436 Problem CAD (coronary artery disease) I25.10 Active 65676704 Problem Major depressive disorder, recurrent episode, moderate F33.1 Active 918094545 Problem Type 2 diabetes mellitus with hyperglycemia E11.65 Active 987709867502053 Problem Diabetic neuropathy E11.40 Active 699150465 Problem Hyperlipidemia E78.5 Active 55317144 Problem Chronic pain G89.29 Active 88854330 Problem Diabetes E11.9 Active 00186399 Problem Gastritis K29.70 Active 4132522 ALLERGIES Unknown Allergies SOCIAL HISTORY No smoking Hx information available PLAN OF CARE VITAL SIGNS MEDICATIONS Medication Instructions Dosage Frequency Start Date End Date Duration Status Gabapentin 300 MG Orally Three times a day 1 capsule 8h 30 Active RESULTS No Results PROCEDURES No Known procedures IMMUNIZATIONS No Known Immunizations
--- OUTSIDE RECORDS SUMMARY | 2018-01-18 11:17 | XMS REPORT ---
Author Author AMINA ARECHIGA [facility] Address [address] [place] [address] Care Team Providers Care Yeast Pusher Name Role Phone AMINA ARECHIGA Unavailable PROBLEMS Type Condition ICD9-CM Code KCM15-XU Code Onset Dates Condition Status SNOMED Code Problem Type 2 diabetes mellitus with hyperglycemia E11.65 Active [id number] Problem Obsessive-compulsive disorder, unspecified type F42.9 Active 063598248 Problem Major depressive disorder, recurrent episode, moderate F33.1 Active 552081219 Problem Falls frequently R29.6 Active 859951367 Problem Diabetes E11.9 Active 864318786 Problem Type 2 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 E11.49 Active 21962003 Problem History of pulmonary embolism Z86.711 Active 821003375 Problem senior care 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.4 Active 085905642 Problem 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.29 Active 59718803 Problem Hyperlipidemia E78.5 Active 17957975 Problem Insomnia G47.00 Active 921107411 Problem HTN (hypertension) I10 Active 82557834 Problem Chronic pain G89.29 Active 75722221 Problem CAD (coronary artery disease) I25.10 Active 42756681 Problem Degenerative disc disease, lumbar M51.36 Active 97214269 Problem Post-traumatic stress disorder F43.10 Active 45983523 ALLERGIES No Information ENCOUNTERS Encounter Location Date Diagnosis [facility] [address], [place] [address] November, [facility] [id number] [place] [address] 54650- 7214 Sep, Diabetes E11.9 [facility] [address], [place] [address] 3[address] Sep, Chronic pain G89.29 [facility] [id number] [address] Sep, [facility] [id number] [place] [address] 07349- 7290 Sep, Falls frequently R29.6 ; senior care 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.4 and Type 2 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 E11.49 [facility] [id number] [place] [address] 74848- 4960 Sep, [facility] [id number] [place] [address] 97958- 7854 Sep, Diabetes E11.9 [facility] [id number] [place] [address] 36027- 8043 Aug, [facility] [id number] [place] [address] 12258- 1347 Aug, Chronic pain G89.29 [facility] [id number] [place] [address] 71991- 8788 Aug, [facility] [id number] [place] [address] 83477- 3131 Aug, Chronic pain G89.29 [facility] [id number] [place] [address] 57111- 9399 Jul, [facility] [id number] [place] [address] 81262- 6625 Jul, Diabetes E11.9 and 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.29 [facility] [address], [place] [address] 9830 Jul, 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.29 [facility] [id number] [address] 4044 Jul, [facility] [address], [place] [address] 2390 Jul, Chronic pain G89.29 [facility] [id number] [place] [address] 14309- 1644 Jun, Diabetes E11.9 [facility] [id number] [place] [address] 12272- 8666 Jun, Chronic pain G89.29 [facility] [id number] [place] [address] 44134- 5899 13 Jun, 2017 Diabetes E11.9 ; Atypical chest pain R07.89 ; senior care 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.4 ; 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.29 ; Type 2 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 E11.49 ; History of pulmonary embolism Z86.711 and History of CVA (cerebrovascular accident) Z86.73 [facility] [id number] [place] [address] 50386- 5055 May, [facility] [id number] [place] [address] 73123- 0400 May, Chronic pain G89.29 [facility] [id number] [place] [address] 64748- 6705 Apr, Chronic pain G89.29 [facility] [id number] [place] [address] 70787- 4982 Apr, [facility] [id number] [place] [address] 25024- 6570 Mar, Chronic pain G89.29 [facility] [id number] [place] [address] 17890- 2554 18 Mar, 2017 Diabetes E11.9 [facility] [id number] [place] [address] 83112- 0197 07 Mar, 2017 [facility] [id number] [place] [address] 13433- 4521 Mar, Degenerative disc disease, lumbar M51.36 [facility] [id number] [place] [address] 14515- 4063 Feb, Diabetes E11.9 [facility] [address] [place] [address]- 8570 23 Feb, 2017 Diabetes E11.9 [facility] [id number] [place] [address] 71128- 7574 16 Feb, 2017 Diabetes E11.9 ; HTN (hypertension) I10 ; Diabetic neuropathy E11.40 and Leg cramps R25.2 [facility] [id number] [place] [address] 04014- 3953 15 Feb, 2017 Sprain of calcaneofibular ligament of right ankle, subsequent encounter S93.411D ; Major depressive disorder, recurrent episode, moderate F33.1 ; Diabetes E11.9 ; Hyperlipidemia E78.5 ; Post-traumatic stress disorder F43.10 and Other irritable bowel syndrome K58.8 [facility] [id number] [place] [address] 83458- 1283 Feb, Major depressive disorder, recurrent episode, moderate F33.1 ; Post-traumatic stress disorder F43.10 and Obsessive-compulsive disorder , unspecified type F42.9 [facility] [id number] [place] [address] 80851- 9697 Feb, [facility] [id number] [place] [address] 11171- 3750 Feb, Post-traumatic stress disorder F43.10 and Major depressive disorder, recurrent, moderate F33.1 [facility] [id number] [place] [address] 07668- 8670 Feb, Diabetes E11.9 [facility] [id number] [place] [address] 16878- 6741 Feb, Degenerative disc disease, lumbar M51.36 [facility] [id number] [place] [address] 79160- 8183 Feb, Post-traumatic stress disorder F43.10 and Major depressive disorder, recurrent, moderate F33.1 [facility] [id number] [place] [address] 89509- 3081 Feb, [facility] [id number] [address] 2546 Feb, Diabetes E11.9 [facility] [address], [place] [address] 2546 Jan, Diabetes E11.9 [facility] [address] [facility] [id number] [address] 2546 Jan, Post-traumatic stress disorder F43.10 and Major depressive disorder, recurrent, moderate F33.1 [facility] [address], [place] [address] 2546 Jan, Diabetes E11.9 [facility] [id number] [place] [address] 15722 2546 Jan, Diabetes E11.9 [facility] [id number] [place] [address] 16005- 7286 Jan, [facility] [id number] [place] [address] 37886- 7286 Jan, [facility] [address], [place] [address] 2543 Jan, Post-traumatic stress disorder F43.10 and Major depressive disorder, recurrent, moderate F33.1 [facility] [address], [place] [address]- 2546 Jan, [facility] [address], [place] [address] 2546 Jan, Major depressive disorder, recurrent episode, moderate F33.1 ; Post-traumatic stress disorder F43.10 and Obsessive-compulsive disorder , unspecified type F42.9 [facility] [address], [place] [address] 2546 Jan, [facility] [address], [place] [address]- 2546 Jan, Diabetes E11.9 [facility] [address] 0146 Jan, [facility] [address], [place] [address]- 4286 Jan, Sprain of calcaneofibular ligament of right ankle, subsequent encounter S93.411D [facility] [id number] [place] [address] 78220- 2506 13 Jan, 2017 Post-traumatic stress disorder F43.10 and Major depressive disorder, recurrent, moderate F33.1 [facility] [id number] [place] [address] 43011- 8404 07 Jan, 2017 Diabetes E11.9 [facility] [id number] [place] [address] 88428- 4796 16 Dec, 2016 Major depressive disorder, recurrent episode, moderate F33.1 ; Post-traumatic stress disorder F43.10 and Obsessive-compulsive disorder , unspecified type F42.9 [facility] [id number] [place] [address] 07709- 9252 15 Dec, 2016 [facility] [id number] [place] [address] 53775- 0288 14 Dec, 2016 Sprain of calcaneofibular ligament of right ankle, subsequent encounter S93.411D [facility] [id number] [place] [address] 17060- 0393 13 Dec, 2016 Post-traumatic stress disorder F43.10 and Major depressive disorder, recurrent, moderate F33.1 [facility] [id number] [place] [address] 00230- 6786 13 Dec, 2016 Sprain of calcaneofibular ligament of right ankle, subsequent encounter S93.411D [facility] [id number] [place] [address] 74162- 2233 12 Dec, 2016 Hyperlipidemia E78.5 [facility] [id number] [place] [address] 78795- 4222 08 Dec, 2016 [facility] [id number] [place] [address] 74413- 8408 07 Dec, 2016 Diabetes E11.9 ; Diabetic neuropathy E11.40 ; Degenerative disc disease, lumbar M51.36 ; Hyperlipidemia E78.5 ; Insomnia G47.00 ; CAD ( coronary artery disease) I25.10 ; Major depressive disorder, recurrent, moderate F33.1 ; Post-traumatic stress disorder F43.10 and Other irritable bowel syndrome K58.8 [facility] [address] 76250- 9648 November, Diabetic neuropathy E11.40 and Hyperlipidemia E78.5 [facility] [address] 09228- 5119 November, Degenerative disc disease, lumbar M51.[address] 85444- 0027 Oct, [address] 06079- 3948 Oct, Degenerative disc disease, lumbar M51.36 [facility] [address] 27229- 8612 Sep, Degenerative disc disease, lumbar M51.36 and HTN ( hypertension) I10 [address] 93574- 8709 Sep, Diabetic neuropathy E11.40 ; HTN (hypertension) I10 ; Degenerative disc disease, lumbar M51.36 ; Hyperlipidemia E78.5 ; Insomnia G47.00 ; CAD (coronary artery disease) I25.10 and Diabetes E11.9 [facility] [id number] [place] [address] 29150- 2428 Aug, [address] 68960- 2081 Aug, Type 2 diabetes mellitus with hyperglycemia E11.65 [facility] [id number] [place] [address] 52438- 3432 Aug, [address] 32617- 2252 Jul, [facility] [address], [place] [address]- 5591 Jul, [facility] [id number] [place] [address] 905698- 7164 Jun, [facility] [address], [place] [address]- 8763 Jun, [facility] [id number] [place] [address] 718067- 2246 Jun, [facility] [id number] [place] [address] 216653- 4029 Jun, [facility] [id number] [place] [address] 046754- 9542 May, Major depressive disorder, recurrent episode, moderate F33.1 and Post-traumatic stress disorder F43.10 [facility] [address], [place] [address]- 0987 May, Major depressive disorder, recurrent episode, moderate F33.1 and Post-traumatic stress disorder F43.10 [facility] [address] [place] [address] 76525- 5240 May, Diabetes E11.9 ; Diabetic neuropathy E11.40 ; HTN ( hypertension) I10 ; Gastritis K29.70 ; Hyperlipidemia E78.5 ; Insomnia G47.00 and Major depressive disorder, recurrent, moderate F33.1 [facility] [address], [place] [address]- 2308 May, Major depressive disorder, recurrent episode, moderate F33.1 [facility] [address], [place] [address]- 9625 Apr, [facility] [id number] [place] [address] 032957- 5751 Apr, Major depressive disorder, recurrent episode, moderate F33.1 and Post-traumatic stress disorder F43.10 [facility] [address], [place] [address]- 7809 Apr, Diabetes E11.9 ; Diabetic neuropathy E11.40 ; Degenerative disc disease, lumbar M51.36 ; HTN (hypertension) I10 ; Hyperlipidemia E78.5 ; Chronic pain G89.29 ; CAD (coronary artery disease) I25.10 and Major depressive disorder, recurrent, moderate F33.1 [facility] [id number] [place] [address] 07988- 7549 Apr, Major depressive disorder, recurrent episode, moderate F33.1 and Post-traumatic stress disorder F43.10 [facility] [id number] [place] [address] 61372- 8124 Apr, Major depressive disorder, recurrent episode, moderate F33.1 and Post-traumatic stress disorder F43.10 [facility] [id number] [place] [address] 97343- 2991 Apr, Major depressive disorder, recurrent episode, moderate F33.1 and Unspecified episodic mood disorder F39 [facility] [id number] [place] [address] 18353- 2646 Apr, Chronic pain G89.29 ; Diabetic neuropathy E11.40 ; HTN ( hypertension) I10 ; Insomnia G47.00 ; CAD (coronary artery disease) I25.10 ; Hyperlipidemia E78.5 ; Degenerative disc disease, lumbar M51.36 ; Diabetes E11.9 and Gastritis K29.70 [facility] [id number] [place] [address] 31719- 9742 Sep, [facility] [id number] [place] [address] 89193- 6741 Aug, [facility] [id number] [place] [address] 69896- 8447 Jul, Major depressive disorder, recurrent episode, moderate F33.1 [facility] [id number] [place] [address] 30188- 7143 Jul, Unspecified episodic mood disorder F39 [facility] [id number] [place] [address] 01637- 6187 Jul, [facility] [id number] [place] [address] 80485- 7912 Jul, [facility] [address] 45700- 8166 Jul, [address] 48510- 1620 Jul, Type 2 diabetes mellitus with hyperglycemia E11.65 ; Diabetic neuropathy E11.40 ; Degenerative disc disease, lumbar M51.36 ; HTN ( hypertension) I10 ; Gastritis K29.70 ; Hyperlipidemia E78.5 and CAD (coronary artery disease) I25.[address] 71724- 9903 Jul, Severe episode of recurrent major depressive disorder, without psychotic features F33.[address] 97041- 3978 Jul, [address] 11260- 4548 Jun, [address] 98088- 2188 Jun, Diabetes E11.9 ; Diabetic neuropathy E11.40 ; Degenerative disc disease, lumbar M51.36 ; HTN (hypertension) I10 ; Gastritis K29.70 ; Hyperlipidemia E78.5 ; Unspecified episodic mood disorder F39 ; Depression F32.9 and CAD (coronary artery disease) I25.10 [facility] [id number] [place] [address] 75632- 0325 Jun, [address] 13138- 6140 Jun, [address] 54273- 2010 Jun, Diabetes E11.9 ; Diabetic neuropathy E11.40 ; Degenerative disc disease, lumbar M51.36 ; HTN (hypertension) I10 ; Gastritis K29.70 ; Chronic pain G89.29 ; Insomnia G47.00 and Unspecified episodic mood disorder F39 [facility] [id number] [place] [address] 66092- 7315 May, Diabetic neuropathy E11.40 ; Degenerative disc disease, lumbar M51.36 ; HTN (hypertension) I10 ; Gastritis K29.70 ; Hyperlipidemia E78.5 ; Chronic pain G89.29 ; Insomnia G47.00 ; Unspecified episodic mood disorder F39 ; Diabetes E11.9 ; CAD (coronary artery disease) I25.10 and H/O Gram positive sepsis Z86.19 [facility] [id number] [place] [address] 94990- 0312 May, [facility] [address] 74728- 0202 May, [facility] [id number] [place] [address] 68737- 0212 May, [facility] [id number] [place] [address] 14463- 3806 May, [facility] [address] [place] [address] 55838- 4905 May, UTI (urinary tract infection) N39.0 ; Diabetes E11.9 ; Diabetic neuropathy E11.40 ; Hyperlipidemia E78.5 and Chronic pain G89.29 [facility] [address] [place] [address] 81456- 1726 May, Insomnia, unspecified G47.00 and Chronic pain G89.29 [facility] [id number] [place] [address] 40431- 2401 May, [facility] [id number] [place] [address] 56206- 6464 May, [facility] [id number] [place] [address] 91693- 2848 May, [facility] [id number] [place] [address] 00360- 0186 Apr, Insomnia, unspecified G47.00 ; Chronic pain G89.29 and Unspecified episodic mood disorder F39 [facility] [id number] [place] [address] 42748- 0583 Apr, Unspecified episodic mood disorder F39 [facility] [id number] [place] [address] 03634- 1073 Apr, Major depression F32.9 [facility] [address] 60797- 2626 Apr, [facility] [id number] [place] [address] 04515- 1744 Apr, Diabetes E11.9 ; Diabetic neuropathy E11.40 ; Degenerative disc disease, lumbar M51.36 ; HTN (hypertension) I10 ; Gastritis K29.70 ; Hyperlipidemia E78.5 ; Chronic pain G89.29 and Insomnia G47.00 [facility] [address] 90262- 2641 Mar, [facility] [id number] [place] [address] 01744- 3911 Mar, [facility] [address] 18302- 3920 Mar, [facility] [id number] [place] [address] 35777- 7971 16 Mar, 2015 Diabetes mellitus 250.00 ; Diabetic neuropathy 250.60 ; CAD (coronary artery disease) 414.00 ; Degenerative disc disease, lumbar 722.52 ; Gastritis 535.50 and Insomnia 780.52 [facility] [id number] [place] [address] 47341- 2918 Mar, Diabetes mellitus 250.00 ; Degenerative disc disease, lumbar 722.52 ; Essential hypertension 401.9 ; Gastritis 535.50 and Chronic pain 338.29 [facility] [id number] [place] [address] 30767- 6186 Feb, [facility] [address] 88834- 2546 Feb, [facility] [address] [address]- 0608 Jan, [facility] [id number] [place] [address] 59706- 3566 Jan, Diabetes mellitus 250.00 ; Diabetic neuropathy 250.60 ; Degenerative disc disease, lumbar 722.52 ; CAD (coronary artery disease) 414.00 ; Essential hypertension 401.9 ; Gastritis 535.50 ; Hyperlipidemia 272.4 and Distal end of ulna fracture, closed 813.43 [facility] [id number] [place] [address] 44136- 7070 Dec, Wrist pain 719.43 and Diabetes mellitus 250.00 [facility] [id number] [place] [address] 20694- 8646 May, [facility] [id number] [place] [address] 84093- 5053 Dec, [facility] [id number] [place] [address] 48341- 2876 November, [facility] [id number] [place] [address] 06159- 2846 16 Oct, 2009 [facility] [id number] [place] [address] 93551- 3306 17 Sep, 2009 [facility] [id number] [place] [address] 47677- 4716 Sep, [facility] [id number] [place] [address] 38090- 8216 Jun, [facility] [id number] [place] [address] 83238- 2086 Jun, [facility] [address] [address]- 2546 14 Jun, 2009 [facility] [id number] [place] [address] 34320- 0856 Jun, [facility] [address] [address]- 0124 Jun, [facility] [address], [place] [address]- 0830 Jun, [facility] [address] [address]- 3474 Jun, [facility] [id number] [place] [address] 69735- 5646 May, [facility] [address] 2810 May, [facility] [address] [address]- 0518 May, [facility] [address] [address]- 9052 May, [facility] [address] [address]- 3675 Apr, [facility] [address], [place] [address]- 4079 Apr, [facility] [address] [address]- 8949 Apr, [facility] [address] [address]- 2853 Mar, [facility] [id number], [place] [address] Dec, IMMUNIZATIONS No Known Immunizations SOCIAL HISTORY Never Assessed REASON FOR VISIT Follow-up PTSD/Depression PLAN OF CARE Activity Details Follow Up 1 Week Reason: Follow-up VITAL SIGNS MEDICATIONS Unknown Medications RESULTS No Results PROCEDURES Procedure Date Ordered Result Body Site Psychotherapy, patient &/family, 30 minutes, established patient Feb 18, 2017 INSTRUCTIONS MEDICATIONS ADMINISTERED No Known [...]
--- OUTSIDE RECORDS SUMMARY | 2018-01-18 11:18 | XMS REPORT ---
Author Author ANIBAL BOB [facility] Address [address] [place] [address] Care Team Providers Care Collar Stitcher Name Role Phone ANIBAL BOB Unavailable PROBLEMS Type Condition ICD9-CM Code APM37-IF Code Onset Dates Condition Status SNOMED Code Problem Degenerative disc disease, lumbar M51.36 Active 89885538 Problem Diabetes E11.9 Active 29184877 Problem Diabetic neuropathy E11.40 Active 020111975 Problem Leg cramps R25.2 Active 443508187 Problem Major depressive disorder, recurrent episode, moderate F33.1 Active 912621299 Problem Post-traumatic stress disorder F43.10 Active 74268221 Problem CAD (coronary artery disease) I25.10 Active 96732214 Problem Obsessive-compulsive disorder, unspecified type F42.9 Active 712520150 Problem Type 2 diabetes mellitus with hyperglycemia E11.65 Active 889701715809122 Problem Chronic pain G89.29 Active 58497908 Problem Hyperlipidemia E78.5 Active 77301148 Problem Gastritis K29.70 Active 9383104 Problem Insomnia G47.00 Active 852172757 Problem HTN (hypertension) I10 Active 48775643 ALLERGIES Unknown Allergies SOCIAL HISTORY No smoking Hx information available PLAN OF CARE VITAL SIGNS MEDICATIONS Medication Instructions Dosage Frequency Start Date End Date Duration Status Hydrocodone-Acetaminophen 7.5-325 MG Orally 2 times a day 1 tablet 12h Jun, Jul, 28 days Active RESULTS No Results PROCEDURES No Known procedures IMMUNIZATIONS No Known Immunizations
--- NOTE | 2018-01-18 11:25 | ED General ---
General Chief Complaint: Abdominal/GI Problems Stated Complaint: BS ISSUES +450 Source of Information: Patient Exam Limitations: No Limitations History of Present Illness Date Seen by Provider: Jan 18, 2018 Time Seen by Provider: 10:51 Initial Comments Here with report of elevated blood sugar. States that she's had nausea, vomiting and diarrhea for a few days. Went to [facility] because of this and blood sugar was noted to be greater than 400. She was sent over here due to concerns for the vomiting and diarrhea and for the blood sugars. She was apparently also hypotensive with blood pressure in the 80s at the clinic although this hasn't shown to be true here as of yet. Patient is not a great historian. States that she's been taking her insulin but is not able to eat or drink well because of the vomiting and diarrhea. Timing/Duration: 2-3 Days Severity: Moderate, Severe Modifying Factors: worse with Eating Associated Systoms: No Chest Pain, No Cough; Fever/Chills, Nausea/Vomiting; No Shortness of Air; Weakness Allergies and Home Medications Allergies Coded Allergies: Penicillins (Unverified Allergy, Unknown, 06/03/15) ibuprofen (Verified Allergy, Unknown, 02/18/07) Home Medications Aspirin 81 Mg Tablet, 81 MG PO DAILY, (Reported) Gabapentin 300 Mg Capsule, 300 MG PO TID, (Reported) Hydrocodone/Acetaminophen 1 Each Tablet, 1 TAB PO TID PRN for PAIN, (Reported) Insulin Aspart 300 Units/3 Ml Solution, 5 UNITS SQ AC LAST FILLED 04-21-16 Prescribed by: JALEN PEREZ on 08/20/16 1049 Insulin Detemir 100 Unit/1 Ml Insuln.pen, 15 UNIT SQ HS LAST FILLED 04-21-16 Prescribed by: JALEN PEREZ on 08/20/16 1049 Lisinopril 20 Mg Tablet, 20 MG PO DAILY, (Reported) LAST FILLED 05-21-16 #30 Metoclopramide HCl 10 Mg Tablet, 10 MG PO TID PRN for STOMACH UPSET, (Reported) Promethazine HCl 25 Mg Tablet, 25 MG PO Q6H PRN for NAUSEA/VOMITING Prescribed by: THAO TOBAR on 01/31/17 0057 Rosuvastatin Calcium 20 Mg Tablet, 20 MG PO HS, (Reported) LAST FILLED 05-21-16 #30 Patient Home Medication List Home Medication List Reviewed: Yes Review of Systems Constitutional: see HPI; No chills, No fever EENTM: no symptoms reported Respiratory: No cough, No short of breath Cardiovascular: No chest pain, No palpitations Gastrointestinal: abdominal pain (diffuse), diarrhea, nausea, vomiting Genitourinary: decreased output; No pain : No Musculoskeletal: no symptoms reported Skin: no symptoms reported All Other Systems Reviewed Negative Unless Noted: Yes Past Lvinize-Xfesen-Bfngpp Hx Past Med/Social Hx: Reviewed Nursing Past Med/Soc Hx Patient Social History Alcohol Use: Occasionally Uses Alcohol Beverage of Choice: Beer Recreational Drug Use: No Smoking Status: Current Everyday Smoker Type Used: Cigarettes Recent Foreign Travel: No Contact w/Someone Who Travel: No Recent Hopitalizations: No Immunizations Up To Date Tetanus Booster (TDap): Unknown Seasonal Allergies Seasonal Allergies: No Past Medical History Surgeries: Yes (EARDRUM,X4 C-SECTIONS X2 FEMUR RODS,CARPEL TUNNEL,SHEA, UMB.HERNIA) Abdominal, Section, Ear Surgery, Gallbladder, Orthopedic, Tubal Ligation Respiratory: Yes (PLEURAL EFFUSION--RESOLVED) Asthma Currently Using CPAP: No Currently Using BIPAP: No Cardiac: Yes High Cholesterol, Hypertension Neurological: Yes (CVA 12/2012--RIGHT SIDE WEAKNESS RESOLVED. 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 PAIN ) Degenerate Disk Disease, Chronic Back Pain, Fractures Endocrine: Yes Diabetes, Insulin dep Chronic Ear Infection Cancer: No Psychosocial: Yes (MOOD DISORDER) Sleep Difficulties, Anxiety, Personality Disorder, Depression Integumentary: No Blood Disorders: No Adverse Reaction/Blood Tranf: No Family Medical History Reviewed Nursing Family Hx Cardiovascular disease 19 FATHER 19 MOTHER G8 BROTHER Diabetes mellitus 19 FATHER FH: chronic obstructive pulmonary disease G8 BROTHER Prostate cancer 19 FATHER Heart Disease Physical Exam Vital Signs Vital Signs - First Documented 01/18/18 10:56 Temp 98.3 Pulse 106 Resp 18 B/P (MAP) 107/80 (89) Pulse Ox 100 Capillary Refill : General Appearance: Mild Distress, Thin HEENT: PERRL/EOMI, Pharynx Normal Neck: Non Tender, Supple Respiratory: Lungs Clear, Normal Breath Sounds Cardiovascular: No Murmur, Tachycardia Gastrointestinal: Non Tender, Soft Back: Normal Inspection, No CVA Tenderness, No Vertebral Tenderness Extremity: Normal Range of Motion, Non Tender Neurologic/Psychiatric: Alert, Oriented x3 Skin: Normal Color, Warm/Dry Focused Exam Lactate Level 01/18/18 11:46: Lactic Acid Level 2.64*H 01/18/18 13:55: Lactic Acid Level 2.75*H Lactic Acid Level Laboratory Tests Test 01/18/18 11:46 01/18/18 13:55 Lactic Acid Level 2.64 MMOL/L (0.50-2.00) *H 2.75 MMOL/L (0.50-2.00) *H Progress/Results/Core Measures Suspected Sepsis SIRS Temperature: Pulse: Respiratory Rate: Laboratory Tests 01/18/18 11:15: White Blood Count 19.8H Blood Pressure / Mean: 01/18/18 11:46: Lactic Acid Level 2.64*H 01/18/18 13:55: Lactic Acid Level 2.75*H Laboratory Tests 01/18/18 11:15: Creatinine 2.20H, Platelet Count 329, Total Bilirubin 1.4H Results/Orders Lab Results Laboratory Tests Test 01/18/18 10:58 01/18/18 11:15 01/18/18 11:46 01/18/18 12:30 Range/Units Glucometer 552 *H 70-110 MG/DL White Blood Count 19.8 H 4.3-11.0 10^3/uL Red Blood Count 4.56 4.35-5.85 10^6/uL Hemoglobin 14.4 11.5-16.0 G/DL Hematocrit 40 35-52 % Mean Corpuscular Volume 87 80-99 FL Mean Corpuscular Hemoglobin 32 25-34 PG Mean Corpuscular Hemoglobin Concent 37 H 32-36 G/DL Red Cell Distribution Width 12.1 10.0-14.5 % Platelet Count 329 130-400 10^3/uL Mean Platelet Volume 10.5 H 7.4-10.4 FL Neutrophils (%) (Auto) 88 H 42-75 % Lymphocytes (%) (Auto) 8 L 12-44 % Monocytes (%) (Auto) 3 0-12 % Eosinophils (%) (Auto) 0 0-10 % Basophils (%) (Auto) 0 0-10 % Neutrophils # (Auto) 17.5 H 1.8-7.8 X 10^3 Lymphocytes # (Auto) 1.6 1.0-4.0 X 10^3 Monocytes # (Auto) 0.7 0.0-1.0 X 10^3 Eosinophils # (Auto) 0.0 0.0-0.3 10^3/uL Basophils # (Auto) 0.0 0.0-0.1 10^3/uL Neutrophils % (Manual) 87 % Lymphocytes % (Manual) 9 % Monocytes % (Manual) 1 % Eosinophils % (Manual) 0 % Basophils % (Manual) 0 % Band Neutrophils 3 % Clumped Platelets OCCASIONAL Poikilocytosis MODERATE Stomatocytes MODERATE Rouleau SLIGHT Sodium Level 132 L 135-145 MMOL/L Potassium Level 4.1 3.6-5.0 MMOL/L Chloride Level 95 L 98-107 MMOL/L Carbon Dioxide Level 22 21-32 MMOL/L Anion Gap 15 H 5-14 MMOL/L Blood Urea Nitrogen 45 H 7-18 MG/DL Creatinine 2.20 H 0.60-1.30 MG/DL Estimat Glomerular Filtration Rate 24 BUN/Creatinine Ratio 20 Glucose Level 606 *H 70-105 MG/DL Calcium Level 12.4 H 8.5-10.1 MG/DL Phosphorus Level 2.1 L 2.3-4.7 MG/DL Magnesium Level 3.0 H 1.8-2.4 MG/DL Total Bilirubin 1.4 H 0.1-1.0 MG/DL Aspartate Amino Transf (AST/SGOT) 30 5-34 U/L Alanine Aminotransferase (ALT/SGPT) 26 0-55 U/L Alkaline Phosphatase 115 40-136 U/L Total Protein 8.4 H 6.4-8.2 GM/DL Albumin 4.2 3.2-4.5 GM/DL Lactic Acid Level 2.64 *H 0.50-2.00 MMOL/L Urine Color YELLOW Urine Clarity CLEAR Urine pH 5 5-9 Urine Specific Hernandez 1.015 L 1.016-1.022 Urine Protein 3+ H NEGATIVE Urine Glucose (UA) 4+ H NEGATIVE Urine Ketones 2+ H NEGATIVE Urine Nitrite NEGATIVE NEGATIVE Urine Bilirubin NEGATIVE NEGATIVE Urine Urobilinogen NORMAL NORMAL MG/DL Urine Leukocyte Esterase NEGATIVE NEGATIVE Urine RBC (Auto) 1+ H NEGATIVE Urine RBC RARE /HPF Urine WBC 0-2 /HPF Urine Squamous Epithelial Cells 0-2 /HPF Urine Renal Epithelial Cells NONE /HPF Urine Crystals NONE /LPF Urine Bacteria NEGATIVE /HPF Urine Casts PRESENT /LPF Urine Hyaline Casts 0-2 H /LPF Urine Mucus NEGATIVE /LPF Urine Culture Indicated NO Test 01/18/18 13:28 01/18/18 13:46 01/18/18 13:55 Range/Units Blood Gas Puncture Site LEFT RADIAL Blood Gas Patient Temperature 98.2 Arterial Blood pH 7.43 7.37-7.43 Arterial Blood Partial Pressure CO2 34 L 35-45 MMHG Arterial Blood Partial Pressure O2 75 L 79-93 MMHG Arterial Blood HCO3 23 23-27 MMOL/L Arterial Blood Total CO2 23.6 21.0-31.0 MMOL/L Arterial Blood Oxygen Saturation 96 94-100 % Arterial Blood Base Excess -1.2 -2.5-2.5 MMOL/L Brett Test POSITIVE Blood Gas Ventilator Setting NO Blood Gas Inspired Oxygen N/A Glucometer 230 H 70-110 MG/DL Lactic Acid Level 2.75 *H 0.50-2.00 MMOL/L My Orders Orders - CAMILLA GREGORY MD Cbc With Automated Diff (01/18/18 10:56) Comprehensive Metabolic Panel (01/18/18 10:56) Magnesium (01/18/18 10:56) Ua Culture If Indicated (01/18/18 10:56) Phosphorus (01/18/18 10:56) Saline Lock/Iv-Start (01/18/18 10:56) Ns Iv 1000 Ml (Sodium Chloride 0.9%) (01/18/18 10:56) Ondansetron Injection (Zofran Injectio (01/18/18 11:00) Insulin (Regular) Human (Humulin R (Per (01/18/18 11:01) Saline Lock/Iv-Start (01/18/18 11:01) Ns Iv 1000 Ml (Sodium Chloride 0.9%) (01/18/18 11:01) Manual Differential (01/18/18 11:15) Lactic Acid Analyzer (01/18/18 11:34) Blood Culture (01/18/18 11:34) Chest 1 View, Ap/Pa Only (01/18/18 11:34) Arterial Blood Gas (01/18/18 12:21) Accucheck Stat ONCE (01/18/18 13:39) Arterial Blood Draw (01/18/18 ) Medications Given in ED Current Medications Medications Dose Ordered Sig/Dianne Route Start Time Stop Time Status Last Admin Dose Admin Ondansetron HCl 4 mg ONCE ONCE IVP 01/18/18 11:00 01/18/18 11:01 DC 01/18/18 11:20 4 MG Sodium Chloride 1,000 ml @ 0 mls/hr Q0M ONCE IV 01/18/18 10:56 01/18/18 10:57 DC 01/18/18 11:20 0 MLS/HR Sodium Chloride 1,000 ml @ 0 mls/hr Q0M ONCE IV 01/18/18 11:01 01/18/18 11:02 DC 01/18/18 11:59 0 MLS/HR Vital Signs/I&O 01/18/18 01/18/18 10:56 12:34 Temp 98.3 98.3 Pulse 106 106 Resp 18 18 B/P (MAP) 107/80 (89) 107/80 Pulse Ox 100 100 Capillary Refill : Progress Note : Progress Note Seen and evaluated. IV, labs, UA, normal saline 2 L bolus ordered. This exceeds 30 mL/kg given currently rate of 130 pounds. We will get blood cultures and lactic acid given her recent vomiting and diarrhea illness. Insulin 10 units IV ordered. We did order 2 IVs the patient is very difficult stick. 1 IV has been established and we will start with that. Monitor patient. 1420: Lactic acid has worsened slightly. Blood sugar is improved. Patient does have a leukocytosis with the vomiting and diarrhea. We'll consider antibiotics. Patient will need continued fluid rehydration and control of blood sugars. Admit, inpatient status. To be admitted to Dr. Lopez. Initiated call. I discussed the case with her. We believe the lactic acid is related to diabetes and not infectious sources there is none showing up on evaluation. She'll continue be monitored. She accepts patient for admission. Patient family agree with plan. Departure Communication (Admissions) Time/Spoke to Admitting Phy: 14:24 Impression Primary Impression: Diabetes mellitus with ketoacidosis and lactic acidosis but without coma Additional Impression: Leukocytosis Qualified Codes: D72.829 - Elevated white blood cell count, unspecified Disposition: ADMITTED INPATIENT Condition: Stable Admissions Decision to Admit Reason: Admit from ER (General) Decision to Admit/Date: Jan 18, 2018 Time/Decision to Admit Time: 14:24 Departure-Patient Inst. Referrals: [facility] (PCP/Family) Primary Care Physician CAMILLA GREGORY MD Jan 18, 2018 11:25
[2018-01-18 11:26] LABS: BASOPHILS % (AUTO) 0 % (0-10); EOSINOPHILS % (AUTO) 0 % (0-10); HEMATOCRIT 40 % (35-52); HEMOGLOBIN 14.4 G/DL (11.5-16.0); LYMPHOCYTES # (AUTO) 1.6 X 10^3 (1.0-4.0); LYMPHOCYTES % (AUTO) 8 % (12-44); MEAN CORPUSCULAR HEMOGLOBIN 32 PG (25-34); MEAN CORPUSCULAR HGB CONC 37 G/DL (32-36); MEAN CORPUSCULAR VOLUME 87 FL (80-99); MEAN PLATELET VOLUME 10.5 FL (7.4-10.4); MONOCYTES # (AUTO) 0.7 X 10^3 (0.0-1.0); MONOCYTES % (AUTO) 3 % (0-12); NEUTROPHILS # (AUTO) 17.5 X 10^3 (1.8-7.8); NEUTROPHILS % (AUTO) 88 % (42-75); PLATELET COUNT 329 10^3/uL (130-400); RED BLOOD COUNT 4.56 10^6/uL (4.35-5.85); RED CELL DISTRIBUTION WIDTH 12.1 % (10.0-14.5); WHITE BLOOD COUNT 19.8 10^3/uL (4.3-11.0)
[2018-01-18 11:44] LABS: ALBUMIN 4.2 GM/DL (3.2-4.5); BILIRUBIN,TOTAL 1.4 MG/DL (0.1-1.0); CALCIUM 12.4 MG/DL (8.5-10.1); CREATININE SERUM 2.2 MG/DL (0.60-1.30); PHOSPHORUS 2.1 MG/DL (2.3-4.7); POTASSIUM 4.1 MMOL/L (3.6-5.0); TOTAL PROTEIN 8.4 GM/DL (6.4-8.2)
[2018-01-18 11:59] LABS: BAND NEUTROPHILS 3 %; BASOPHILS % (MANUAL) 0 %; EOSINOPHILS % (MANUAL) 0 %; LYMPHOCYTES % (MANUAL) 9 %; MONOCYTES % (MANUAL) 1 %; NEUTROPHILS % (MANUAL) 87 %; PLATELET CLUMPS OCCASIONAL; POIKILOCYTOSIS MODERATE
[2018-01-18 12:00] LABS: ROULEAUX SLIGHT; STOMATOCYTES MODERATE
--- NOTE | 2018-01-18 12:23 | Diagnostic Imaging Report ---
INDICATION: Hyperglycemia. COMPARISON: 08/18/2016. FINDINGS: Upright portable view of the chest is obtained. Heart size is normal. The pulmonary vessels appear unremarkable. There is no pneumothorax, mediastinal widening, or pleural fluid. The lungs are clear. IMPRESSION: No acute abnormality is demonstrated. Dictated by: Dictated on workstation # [id number]
[2018-01-18 13:40] LABS: ABG BASE EXCESS -1.2 MMOL/L (-2.5-2.5); ABG OXYGEN SATURATION 96 % (94-100); ABG PCO2 34 MMHG (35-45); ABG PH 7.43 (7.37-7.43); ABG PO2 75 MMHG (79-93); ABG TCO2 23.6 MMOL/L (21.0-31.0)
[2018-01-18 13:41] LABS: ALLENS TEST POSITIVE; PATIENT TEMP 98.2; VENTILATOR NO
[2018-01-18 13:48] LABS: BILIRUBIN,URINE NEGATIVE (NEGATIVE); GLUCOSE, URINE (UA) 4+ (NEGATIVE); KETONES,URINE 2+ (NEGATIVE); LEUKOCYTE ESTERASE ,URINE NEGATIVE (NEGATIVE); NITRITE,URINE NEGATIVE (NEGATIVE); PH,URINE 5 (5-9); PROTEIN,URINE 3+ (NEGATIVE); UROBILINOGEN,URINE NORMAL (NORMAL)
[2018-01-18 13:49] LABS: BACTERIA,URINE NEGATIVE /HPF; CLARITY,URINE CLEAR; COLOR,URINE YELLOW; RBC,URINE RARE /HPF; SQUAMOUS EPITHELIAL CELL,UR 0-2 /HPF; WBC,URINE 0-2 /HPF
[2018-01-18 13:50] LABS: HYALINE CASTS, URINE 0-2 /LPF
[2018-01-18] MEDS ORDERED: ONDANSETRON 4 MG/2 ML (SDV) Z0FRAN ONE (16:50)
[2018-01-18 17:35] VITALS: BP 131/90
[2018-01-18] MEDS ORDERED: CATHETER FLUSH 10 ML SYR IV PRN (18:00)
[2018-01-18] MEDS ORDERED: ONDANSETRON 4 MG/2 ML (SDV) Z0FRAN IV PRN (18:00)
[2018-01-18] MEDS: NS IV 1000 ML 1,000 ML IV SCH (18:17)
[2018-01-18 19:30] VITALS: BP 123/71
[2018-01-18] MEDS: inSUlin ASPART (NovoLOG) 1 UNIT/0.01 ML (CHARGE PER UNIT) SC SCH (20:04)
[2018-01-19 00:32] VITALS: BP 94/62
[2018-01-19] MEDS: NS IV 1000 ML 1,000 ML IV SCH ×2 (02:12→10:07)
[2018-01-19 04:09] VITALS: BP 126/89
[2018-01-19] MEDS: inSUlin ASPART (NovoLOG) 1 UNIT/0.01 ML (CHARGE PER UNIT) SC SCH (05:48)
[2018-01-19 07:45] LABS: BASOPHILS % (AUTO) 0 % (0-10); EOSINOPHILS % (AUTO) 0 % (0-10); HEMATOCRIT 36 % (35-52); HEMOGLOBIN 12.5 G/DL (11.5-16.0); LYMPHOCYTES # (AUTO) 3.2 X 10^3 (1.0-4.0); LYMPHOCYTES % (AUTO) 39 % (12-44); MEAN CORPUSCULAR HEMOGLOBIN 31 PG (25-34); MEAN CORPUSCULAR HGB CONC 35 G/DL (32-36); MEAN CORPUSCULAR VOLUME 89 FL (80-99); MEAN PLATELET VOLUME 10.3 FL (7.4-10.4); MONOCYTES # (AUTO) 0.8 X 10^3 (0.0-1.0); MONOCYTES % (AUTO) 10 % (0-12); NEUTROPHILS # (AUTO) 4.2 X 10^3 (1.8-7.8); NEUTROPHILS % (AUTO) 51 % (42-75); PLATELET COUNT 273 10^3/uL (130-400); RED BLOOD COUNT 4.05 10^6/uL (4.35-5.85); RED CELL DISTRIBUTION WIDTH 12.2 % (10.0-14.5); WHITE BLOOD COUNT 8.2 10^3/uL (4.3-11.0)
[2018-01-19 08:00] VITALS: BP 147/88
[2018-01-19 08:01] LABS: ALBUMIN 3.2 GM/DL (3.2-4.5); BILIRUBIN,TOTAL 0.8 MG/DL (0.1-1.0); CALCIUM 10.2 MG/DL (8.5-10.1); CREATININE SERUM 1.16 MG/DL (0.60-1.30); POTASSIUM 3.1 MMOL/L (3.6-5.0); TOTAL PROTEIN 6.1 GM/DL (6.4-8.2)
[2018-01-19] MEDS ORDERED: PROM25TA14 PO (10:03)
[2018-01-19] MEDS ORDERED: ONDA8TAB13 PO (10:04)
[2018-01-19] MEDS ORDERED: LAMO100T PO (10:05)
[2018-01-19] MEDS ORDERED: LISI1TAB10 PO (10:05)
[2018-01-19] MEDS ORDERED: ROSU40TA22 PO (10:06)
[2018-01-19] MEDS ORDERED: PRAZ1CAP2 PO (10:06)
[2018-01-19] MEDS ORDERED: INSU100V16 SQ (10:09)
[2018-01-19] MEDS ORDERED: INSU100V5 SQ (10:10)
[2018-01-19] MEDS ORDERED: inSUlin ASPART (NovoLOG) 1 UNIT/0.01 ML (CHARGE PER UNIT) SC SCH (11:29)
[2018-01-19] MEDS ORDERED: ONDANSETRON 8 MG (ZOFRAN) ORAL DISSOLVE TAB PO PRN (11:30)
[2018-01-19] MEDS ORDERED: METOCLOPRAMIDE 10 MG (REGLAN) TAB PO PRN (11:30)
[2018-01-19] MEDS ORDERED: HYDROcodone/APAP 10 MG/325 MG (LORTAB) TAB PO PRN (11:30)
[2018-01-19] MEDS ORDERED: PROMETHAZINE 25 MG (PHENERGAN) TAB PO PRN (11:30)
[2018-01-19 12:00] VITALS: BP 142/96
[2018-01-19] MEDS ORDERED: KCL 20 MEQ TAB (K-DUR) PO NR (12:15)
--- NOTE | 2018-01-19 12:22 | Short Stay Summary ---
History of Present Illness History of Present Illness Reason for visit/HPI Pt presented to ED yesterday after being seen in clinic; known diabetic with several days of nausea, vomiting and diarrhea, glucose too high to read on clinic meter by fingerstick. Hyperglycemia and dehydration noted in ED. Based on her lab abnormalities as well as her insulin dependent diabetes, pt was admitted for further care with IV hydration, and close monitoring of her vital signs and labs. Date of Admission Jan 18, 2018 at 17:05 Date of Discharge 01/19/18 Time Seen by Provider: 12:21 Attending Physician Caitlin Lopez DO Admitting Physician Caitlin Lopez DO Consult Allergies and Home Medications Allergies Coded Allergies: Penicillins (Unverified Allergy, Unknown, 06/03/15) ibuprofen (Verified Allergy, Unknown, 02/18/07) peas (Verified Allergy, Unknown, 01/19/18) Home Medications Gabapentin 300 Mg Capsule, 300 MG PO TID, (Reported) Hydrocodone/Acetaminophen 1 Each Tablet, 1 TAB PO TID PRN for PAIN, (Reported) Insulin Aspart 100 Unit/1 Ml Susp, 40 UNIT SQ AC, (Reported) Insulin Determir 1,000 Units/10 Ml Soln, 55 UNITS SQ BID, (Reported) Lamotrigine 100 Mg Tablet, 100 MG PO DAILY, (Reported) Lisinopril/Hydrochlorothiazide 1 Each Tablet, 1 EACH PO DAILY, (Reported) Metoclopramide HCl 10 Mg Tablet, 10 MG PO TID PRN for STOMACH UPSET, (Reported) Ondansetron 8 Mg Tab.rapdis, 8 MG PO Q6H PRN for NAUSEA/VOMITING-1ST LINE, ( Reported) Prazosin HCl 1 Mg Capsule, 1 MG PO DAILY, (Reported) Promethazine HCl 25 Mg Tablet, 25 MG PO Q6H PRN for NAUSEA/VOMITING, (Reported) Rosuvastatin Calcium 40 Mg Tablet, 40 MG PO DAILY, (Reported) Patient Home Medication List Home Medication List Reviewed: Yes Past Skcqked-Hhkglk-Bbdlox Hx Patient Social History Living Status: lives independently Employed/Student: unemployed Alcohol Use: Occasionally Uses Number of Drinks Today: AA Alcohol Beverage of Choice: Beer Recreational Drug Use: No Smoking Status: Never a Smoker Type Used: Cigarettes 2nd Hand Smoke Exposure: Yes Physical Abuse Screen: No ( A CHILD FROM FATHER) Sexual Abuse: No ( A CHILD FROM FATHER) Recent Foreign Travel: No Contact w/other who traveled: No Recent Hopitalizations: No Recent Infectious Disease Expo: No Immunizations Up To Date Tetanus Booster (TDap): Unknown Seasonal Allergies Seasonal Allergies: No Surgeries Yes (EARDRUM,X4 C-SECTIONS X2 FEMUR RODS,CARPEL TUNNEL,SHEA,UMB.HERNIA) Abdominal, Section (x4), Ear Surgery, Gallbladder, Orthopedic, Tubal Ligation Respiratory Yes (PLEURAL EFFUSION--RESOLVED) Asthma, Pulmonary Embolism (2016) Currently Using CPAP: No Currently Using BIPAP: No Cardiovascular Yes Coronary Artery Disease, High Cholesterol, Hypertension Neurological Yes (CVA 12/2012--RIGHT SIDE WEAKNESS RESOLVED. 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 PAIN) Degenerate Disk Disease (lumbar), Chronic Back Pain, Fractures (bilateral femur ) Endocrine History of Endocrine Disorders: Yes Endocrine Disorders: Diabetes, Insulin dep Are Your Blood Sugars Over 250: Yes HEENT History of HEENT Disorders: Yes HEENT Disorders: Chronic Ear Infection Loss of Vision: Denies Hearing Impairment: Denies Cancer No Psychosocial History of Psychiatric Problem: Yes (MOOD DISORDER) Behavioral Health Disorders: Sleep Difficulties, Anxiety, Personality Disorder , Depression Integumentary History of Skin or Integumenta: No Blood Transfusions History of Blood Disorders: No Hx of Blood Transfusion yes - 2010 Adverse Reaction to a Blood Tr: No Reviewed Nursing Assessment Reviewed/Agree w Nursing PMH: Yes Family Medical History Significant Family History: Heart Disease, Cancer, CAD Under 55 Years Old, COPD , Diabetes, Hypertension, Lung Disease, Psychiatric Problems, Vascular Disease, Other Conditions/Hx Family Hx: Cardiovascular disease 19 FATHER 19 MOTHER G8 BROTHER Diabetes mellitus 19 FATHER FH: chronic obstructive pulmonary disease G8 BROTHER Prostate cancer 19 FATHER Constitutional: see HPI, malaise, weakness EENTM: no symptoms reported Respiratory: no symptoms reported Cardiovascular: no symptoms reported Gastrointestinal: see HPI, diarrhea, nausea, vomiting Genitourinary: no symptoms reported : No Control/STD Prophylaxis: Other (Tubal Ligation, Menopause) Musculoskeletal: other (chronic pain) Skin: no symptoms reported Psychiatric/Neurological: Weakness, Other (fatigue) Physical Exam Vital Signs Vital Signs - First Documented 01/18/18 01/18/18 10:56 17:35 Temp 98.3 Pulse 106 Resp 18 B/P (MAP) 107/80 (89) Pulse Ox 100 O2 Delivery Room Air Capillary Refill : Less Than 3 Seconds General Appearance: No Apparent Distress, WD/WN, Chronically ill Eyes: Bilateral Eye Normal Inspection, Bilateral Eye EOMI HEENT: Normal ENT Inspection, Moist Mucous Membranes; No Photophobia, No Scleral Icterus (L), No Scleral Icterus (R) Neck: Full Range of Motion, Normal Inspection, Non Tender, Supple Respiratory: Chest Non Tender, Lungs Clear, Normal Breath Sounds, No Accessory Muscle Use, No Respiratory Distress; No Rales, No Rhonci, No Wheezing Cardiovascular: Regular Rate, Rhythm, No Edema, No Gallop, No JVD, Normal Peripheral Pulses Gastrointestinal: Normal Bowel Sounds, No Organomegaly, No Pulsatile Mass, Non Tender, Soft; No Distended, No Guarding, No Rebound Rectal: Deferred Extremity: Normal Capillary Refill, Normal Inspection, Normal Range of Motion, Non Tender, No Calf Tenderness, No Pedal Edema Neurologic/Psychiatric: Alert, Oriented x3, No Motor/Sensory Deficits, Normal Mood/Affect, 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 Norm as Tested Skin: Normal Color, Warm/Dry Clinical Quality Measures DVT/VTE Risk/Contraindication: Risk Factor Score Per Nursin RFS Level Per Nursing on Admit: 1=Low/No VTE PPX Short Stay Diagnosis Discharge Diagnosis-Short Stay Admission Diagnosis: Nausea, Vomiting, Diarrhea Malaise Leukocytosis Hypercalcemia Acute Renal Insufficiency Hyponatremia Hyperbilirubinemia Type II Diabetes with Complication, Insulin Dependent Chronic Pain Final Discharge Diagnosis: Nausea, Vomiting, Diarrhea -no nausea, vomiting or diarrhea since admission -suspect viral gastroenteritis, as has been prevalent in this area and pt has followed typical course Malaise -nursing staff reports pt has been sleeping most of the morning -pt easily awakened at the time of exam and requesting to eat Leukocytosis -WBC 19.8 --> 8.2 -resolved with hydration Hypercalcemia -12.4 -->10.2 -mildly elevated, but trending down Hypokalemia -3.2 this AM -replace with 40 mEq PO x1 today Acute Renal Insufficiency -Cr 2.2 on admission --> 1.16 this morning -resolved with IV hydration Hyponatremia -132 -->141 -resolved Hyperbilirubinemia -1.4 --> 0.8 -resolved Type II Diabetes with Complication, Insulin Dependent -resume home medications -pt's sugars have been well controlled while in the hospital; suspect dietary noncompliance plays a large role in the significant doses of insulin she requires -will have pt eat lunch, if able to tolerate without N/V/D, will discharge to home this afternoon Chronic Pain -pt's home medication resumed Hx of Stroke, Hx of PE -pt's home medication resumed Conclusion Labs Laboratory Tests 01/18/18 12:30: Urine Color YELLOW, Urine Clarity CLEAR, Urine pH 5, Urine Specific [place] 1.015L, Urine Protein 3+H, Urine Glucose (UA) 4+H, Urine Ketones 2+H, Urine Nitrite NEGATIVE, Urine Bilirubin NEGATIVE, Urine Urobilinogen NORMAL, Urine Leukocyte Esterase NEGATIVE, Urine RBC (Auto) 1+H, Urine RBC RARE, Urine WBC 0-2 , Urine Squamous Epithelial Cells 0-2, Urine Renal Epithelial Cells NONE, Urine Crystals NONE, Urine Bacteria NEGATIVE, Urine Casts PRESENT, Urine Hyaline Casts 0-2H, Urine Mucus NEGATIVE, Urine Culture Indicated NO 01/18/18 13:28: Blood Gas Puncture Site LEFT RADIAL, Blood Gas Patient Temperature 98.2, Arterial Blood pH 7.43, Arterial Blood Partial Pressure CO2 34L, Arterial Blood Partial Pressure O2 75L, Arterial Blood HCO3 23, Arterial Blood Total CO2 23.6, Arterial Blood Oxygen Saturation 96, Arterial Blood Base Excess -1.2, Brett Test POSITIVE, Blood Gas Ventilator Setting NO, Blood Gas Inspired Oxygen N/A 01/18/18 13:46: Glucometer 230H 01/18/18 13:55: Lactic Acid Level 2.75*H 01/18/18 19:36: Glucometer 105 01/19/18 05:39: Glucometer 76 01/19/18 07:08: White Blood Count 8.2, Red Blood Count 4.05L, Hemoglobin 12.5, Hematocrit 36, Mean Corpuscular Volume 89, Mean Corpuscular Hemoglobin 31, Mean Corpuscular Hemoglobin Concent 35, Red Cell Distribution Width 12.2, Platelet Count 273, Mean Platelet Volume 10.3, Neutrophils (%) (Auto) 51, Lymphocytes (%) (Auto) 39 , Monocytes (%) (Auto) 10, Eosinophils (%) (Auto) 0, Basophils (%) (Auto) 0, Neutrophils # (Auto) 4.2, Lymphocytes # (Auto) 3.2, Monocytes # (Auto) 0.8, Eosinophils # (Auto) 0.0, Basophils # (Auto) 0.0, Sodium Level 141, Potassium Level 3.1L, Chloride Level 111#H, Carbon Dioxide Level 21, Anion Gap 9, Blood Urea Nitrogen 29H, Creatinine 1.16, Estimat Glomerular Filtration Rate 49, BUN/ Creatinine Ratio 25, Glucose Level 64L, Calcium Level 10.2H, Total Bilirubin 0.8 , Aspartate Amino Transf (AST/SGOT) 25, Alanine Aminotransferase (ALT/SGPT) 18, Alkaline Phosphatase 75, Total Protein 6.1L, Albumin 3.2 01/19/18 11:46: Glucometer 73 Conclusion/Plan Patient has done very well overnight, and at the time of exam the patient reports no nausea, vomiting or diarrhea since admission. Will have pt eat lunch , and if able to tolerate, will discharge to home and have pt resume her routine home medications with outpatient follow up on Thursday with Dr. Houser. Copy Copies To 1: JALEN HOUSER MD, MARGARET E DO Jan 19, 2018 12:22
--- NOTE | 2018-01-19 12:29 | Discharge Instructions ---
Discharge [facility] Discharge Medications New, Converted or Re-Newed RX: Other (no change in rx) Continued Medications: Gabapentin (Gabapentin) 300 Mg Capsule 300 MG PO TID, CAP Hydrocodone/Acetaminophen (Hydrocodon-Acetaminophn 10-325) 1 Each Tablet 1 TAB PO TID PRN for PAIN, TAB Insulin Aspart (Novolog) 100 Unit/1 Ml Susp 40 UNIT SQ AC, EACH Insulin Determir (Levemir) 1,000 Units/10 Ml Soln 55 UNITS SQ BID, EA Lamotrigine (Lamotrigine) 100 Mg Tablet 100 MG PO DAILY, TAB Lisinopril/Hydrochlorothiazide (Lisinopril-Hctz 20-25 mg Tab) 1 Each Tablet 1 EACH PO DAILY, TAB Metoclopramide HCl (Reglan) 10 Mg Tablet 10 MG PO TID PRN for STOMACH UPSET, TAB Ondansetron (Ondansetron Odt) 8 Mg Tab.rapdis 8 MG PO Q6H PRN for NAUSEA/VOMITING-1ST LINE, TAB Prazosin HCl (Prazosin HCl) 1 Mg Capsule 1 MG PO DAILY, CAP Promethazine HCl (Promethazine Tablet) 25 Mg Tablet 25 MG PO Q6H PRN for NAUSEA/VOMITING, TAB Rosuvastatin Calcium (Rosuvastatin Calcium) 40 Mg Tablet 40 MG PO DAILY, TAB Patient Instructions Patient Instructions -start with bland diet and advance slowly as tolerated -follow up in clinic next week -continue meds as previously directed prior to admission -continue diabetic diet as prior to admission Goal/Follow Up Appt: 01/25/18 at 10:[address] Houser Return to The Hospital For: chest pain or pressure, shortness of breath out of normal for patient and not relieved by rest, nausea or vomiting that makes you unable to keep down clear liquids or ice chips for more than 12 hours, fever > 101 that does not come down with tylenol, if directed by quality control specialist provider, or any other emergent complaints or concerns Activity & Diet Discharge Diet: ADA Diet Activity as Tolerated: Yes Orders-Post D/C & Referrals Pneu Vac Indicated: Yes Copy Copies To 1: JALEN HOUSER MD, MARGARET E DO Jan 19, 2018 12:29
[2018-01-19] MEDS ORDERED: GABAPENTIN 300 MG (NEURONTIN) CAP PO SCH (13:00)
[2018-01-19 15:49] VITALS: BP 142/96
[2018-01-19] MEDS ORDERED: inSUlin ASPART (NovoLOG) 1 UNIT/0.01 ML (CHARGE PER UNIT) SQ SCH (16:00)
[2018-01-19] MEDS ORDERED: ROSUVASTATIN 20 MG (CRESTOR) TABLET PO SCH (21:00)
[2018-01-19] MEDS ORDERED: inSUlin DETERMIR 1 UNIT/0.01 ML (LEVEMIR) CHARGE PER UNIT SQ SCH (21:00)
[2018-01-19] MEDS ORDERED: PRAZOSIN 1 MG CAPSULE (MINIPRESS) NON-FORMULARY PO SCH (21:00)
[2018-01-20] MEDS ORDERED: NON-FORMULARY MEDICATION 1 EA EA (Prazosin HCl 1 MG) PO SCH (09:00)
[2018-01-20] MEDS ORDERED: HYDROCHLOROTHIAZIDE 25 MG (HCTZ) TAB PO SCH (09:00)
[2018-01-20] MEDS ORDERED: lisINopril 20 MG (PRINIVIL) TABLET PO SCH (09:00)
== END 2018-01-19 15:49 | disposition home or self-care (01) | DRG 638 ==
LOC: EDUNIT# 10:52 → ER 10:54 → 4TH 17:05
PROVIDERS: ADMIT Family Medicine; ATTEND Family Medicine
DX: E11.10 Type 2 diabetes mellitus with ketoacidosis without coma (principal); A08.4 Viral intestinal infection, unspecified; E87.2 Acidosis; E87.1 Hypo-osmolality and hyponatremia; E86.0 Dehydration; E11.43 Type 2 diabetes mellitus with diabetic autonomic (poly)neuropathy; E83.52 Hypercalcemia; E87.6 Hypokalemia; J45.909 Unspecified asthma, uncomplicated; I10 Essential (primary) hypertension; N28.9 Disorder of kidney and ureter, unspecified; E78.00 Pure hypercholesterolemia, unspecified; F17.210 Nicotine dependence, cigarettes, uncomplicated; K21.9 Gastro-esophageal reflux disease without esophagitis; G43.909 Migraine, unspecified, not intractable, without status migrainosus; M54.9 Dorsalgia, unspecified; D72.829 Elevated white blood cell count, unspecified; G47.9 Sleep disorder, unspecified; F41.9 Anxiety disorder, unspecified; F60.9 Personality disorder, unspecified; F32.9 Major depressive disorder, single episode, unspecified; I25.10 Atherosclerotic heart disease of native coronary artery without angina pectoris; Z79.4 Long term (current) use of insulin; Z86.73 Personal history of transient ischemic attack (TIA), and cerebral infarction without residual deficits
CPT/HCPCS: 36415; 36600; 71045; 80053; 81000; 82805; 82962; 83605; 83735; 84100; 85007; 85025; 85027; 87040; 96361; 96374; 96375; 96376

== ENCOUNTER 2019-05-21 18:10 | Observation (INO) | payer MEDICARE ==
[~2019-05-21] VITALS: Ht 162 cm; Wt 58.7 kg
[~2019-05-21 18:10] MED LIST changes: -DULO20CA18 PO; +DULO20CA19 PO; +GABA800T10 PO; -GABA800T2 PO; +LAMO100T5 PO; +LISI1TAB26 PO; -MAGN400T6 PO; +MAGN400T8 PO; +ONDA8TAB13 PO; +PRAZ1CAP2 PO; -ROSU20TA PO; +ROSU20TA2 PO; -ROSU20TA31 PO; +ROSU20TA32 PO; +ROSU40TA23 PO; -TRAM50TA2 PO; +TRM50T PO
[2019-05-21] MEDS ORDERED: FAMOTIDINE 20 MG (PEPCID) TABLET PO STA (18:38)
[2019-05-21] MEDS ORDERED: diphenhydrAMINE 50 MG/ML INJ (BENADRYL) IV STA (18:38)
--- NOTE | 2019-05-21 18:45 | ED Integumentary General ---
General Chief Complaint: Skin/Wound Problems Stated Complaint: RASH Nursing Triage Note: Patient reports generalized rash x 2 weeks. attempted baby oil and lotion without improvement. Source: patient History of Present Illness Date Seen by Provider: May 21, 2019 Time Seen by Provider: 18:27 Initial Comments PT ARRIVES VIA POV FROM HOME C/O VERY ITCHY RASH, AND STATES IT "CATALAN" FOR OVER 2 WEEKS STATES RASH IS "ALL OVER" BUT IS ACTUALLY ONLY ON MID AND LOWER ABDOMEN, ANTERIOR THIGHS, ANTERIOR ASPECT OF LOWER LEGS, AND DORSAL ASPECT OF RIGHT FOREARM SYMPTOMS NO DIFFERENT TODAY HAS NOT SOUGHT CARE UNTIL TODAY HAS BEEN PUTTING BABY OIL AND LOTION ON IT NO SWELLING ANYWHERE NO DIFFICULTY SWALLOWING OR BREATHING OR WHEEZING. DENIES ANY HISTORY OF SIMILAR DENIES ANY NEW MEDICATIONS OR DOSE CHANGES DENIES ANY NEW PRODUCTS, NO NEW FOODS OR DRINKS OR NEW EXPOSURES NO ONE ELSE IN HOUSEHOLD WITH SIMILAR. NO HISTORY OF SIMILAR PT STATES SHE IS DIABETIC, BUT HAS NOT CHECKED HER BLOOD SUGAR TODAY, PT STATES HER BLOOD SUGAR IS "ALWAYS HIGH--"400'S-500'S" STATES SHE HAS TAKEN ALL OF HER REGULAR MEDICATIONS TODAY INCLUDING INSULIN. PCP: [facility], DR. PEREZ Allergies and Home Medications Allergies Coded Allergies: Penicillins (Unverified Allergy, Unknown, 06/03/15) ibuprofen (Verified Allergy, Unknown, 02/18/07) peas (Verified Allergy, Unknown, 01/19/18) Patient Home Medication List Home Medication List Reviewed: Yes Review of Systems Review of Systems Constitutional: no symptoms reported; No chills, No diaphoresis, No dizziness, No fever EENTM: no symptoms reported, other (NO SWELLING ANYWHERE) Respiratory: no symptoms reported; No cough, No short of breath, No wheezing Cardiovascular: no symptoms reported Gastrointestinal: no symptoms reported Genitourinary: no symptoms reported, other (LMP--YEARS AGO) Musculoskeletal: no symptoms reported Skin: see HPI, pruritus, rash Psychiatric/Neurological: No Symptoms Reported Endocrine: See HPI Hematologic/Lymphatic: No Symptoms Reported Past Prcorzq-Axqcom-Vukejy Hx Past Med/Social Hx: Reviewed and Corrections made Patient Social History Alcohol Use: Rarely Uses Number of Drinks Today: AA Alcohol Beverage of Choice: Beer Recreational Drug Use: No (DENIES) Smoking Status: Current Everyday Smoker (1 PPD) Type Used: Cigarettes (1 PPD) 2nd Hand Smoke Exposure: Yes Recent Foreign Travel: No Contact w/Someone Who Travel: No Recent Infectious Disease Expo: No Recent Hopitalizations: No Immunizations Up To Date Tetanus Booster (TDap): Unknown Seasonal Allergies Seasonal Allergies: No Past Medical History Surgeries: Yes (EARDRUM,X4 /BMT'S; C-SECTIONS X 4; BILATERAL FEMUR FX'S / ORIF'S/RODS-PLATES; LEFT CARPAL TUNNEL SURGERY;,SHEA; UMBILICAL HERNIA; OVARIAN CYST REMOVAL) Abdominal, Section, Ear Surgery, Gallbladder, Orthopedic, Tubal Ligation Respiratory: Yes (PLEURAL EFFUSION--RESOLVED) Asthma Currently Using CPAP: No Currently Using BIPAP: No Cardiac: Yes Coronary Artery Disease, High Cholesterol, Hypertension Neurological: Yes (CVA 12/2012--RIGHT SIDE WEAKNESS RESOLVED. 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 PAIN' RIGHT DISTAL ULNA FRACTURE--NO SURGERY; ) Degenerate Disk Disease, Chronic Back Pain, Fractures Endocrine: Yes (POOR CONTROL;POOR COMPLIANCE IN ALL ASPECTS OF CARE; MULTIPLE EPISODES OF DKA) Diabetes, Insulin dep HEENT: Yes (BMT'S ) Chronic Ear Infection Loss of Vision: Denies Hearing Impairment: Denies Cancer: No Psychosocial: Yes (MOOD DISORDER) Sleep Difficulties, Anxiety, Personality Disorder, Depression Integumentary: No Blood Disorders: No Adverse Reaction/Blood Tranf: No Family Medical History Cardiovascular disease 19 FATHER 19 MOTHER G8 BROTHER Diabetes mellitus 19 FATHER FH: chronic obstructive pulmonary disease G8 BROTHER Prostate cancer 19 FATHER Heart Disease, Cancer, CAD Under 55 Years Old, COPD, Diabetes, Hypertension, Lung Disease, Psychiatric Problems, Vascular Disease, Other Conditions/Hx Physical Exam Vital Signs Vital Signs - First Documented 05/21/19 18:32 Temp 36.7 Pulse 112 Resp 18 B/P (MAP) 151/96 (114) Pulse Ox 98 Capillary Refill : Less Than 3 Seconds General Appearance: WD/WN, no apparent distress HEENT: PERRL/EOMI, other (EDENTULOUS) Neck: normal inspection Cardiovascular: normal peripheral pulses, regular rate, rhythm, no edema, no JVD, no murmur Respiratory: normal breath sounds, no respiratory distress, no accessory muscle use Gastrointestinal: normal bowel sounds, non tender, soft, no organomegaly Back: no CVA tenderness Extremities: normal inspection, no pedal edema, no calf tenderness, normal capillary refill Neurologic/Psychiatric: social work coordinator II-XII nml as tested, no motor/sensory deficits, alert, oriented x 3, other (ANXOIUS) Skin: normal color, warm/dry, rash (PATCHY MACULOPAPULAR RASH TO MID AND LOWER ABDOMEN, ANTERIOR ASPECT OF THIGHS AND LOWER LEGS, AND DORSAL ASPECT OF RIGHT FOREARM. ALL AREAS WITH EXTENSIVE MACERATION FROM PT SCRATCHING. ) Progress/Results/Core Measures Results/Orders Lab Results Laboratory Tests Test 05/21/19 18:40 05/21/19 19:07 05/21/19 19:29 05/21/19 19:35 Range/Units White Blood Count 9.7 4.3-11.0 10^3/uL Red Blood Count 3.92 L 4.35-5.85 10^6/uL Hemoglobin 12.0 11.5-16.0 G/DL Hematocrit 35 35-52 % Mean Corpuscular Volume 89 80-99 FL Mean Corpuscular Hemoglobin 31 25-34 PG Mean Corpuscular Hemoglobin Concent 35 32-36 G/DL Red Cell Distribution Width 12.0 10.0-14.5 % Platelet Count 279 130-400 10^3/uL Mean Platelet Volume 10.6 H 7.4-10.4 FL Neutrophils (%) (Auto) 71 42-75 % Lymphocytes (%) (Auto) 18 12-44 % Monocytes (%) (Auto) 8 0-12 % Eosinophils (%) (Auto) 3 0-10 % Basophils (%) (Auto) 0 0-10 % Neutrophils # (Auto) 6.8 1.8-7.8 X 10^3 Lymphocytes # (Auto) 1.8 1.0-4.0 X 10^3 Monocytes # (Auto) 0.7 0.0-1.0 X 10^3 Eosinophils # (Auto) 0.3 0.0-0.3 10^3/uL Basophils # (Auto) 0.0 0.0-0.1 10^3/uL Prothrombin Time 12.8 12.2-14.7 SEC INR Comment 0.9 0.8-1.4 Activated Partial Thromboplast Time 26 24-35 SEC Sodium Level 126 L 135-145 MMOL/L Potassium Level 4.7 3.6-5.0 MMOL/L Chloride Level 93 L 98-107 MMOL/L Carbon Dioxide Level 21 21-32 MMOL/L Anion Gap 12 5-14 MMOL/L Blood Urea Nitrogen 21 H 7-18 MG/DL Creatinine 1.94 H 0.60-1.30 MG/DL Estimat Glomerular Filtration Rate 27 BUN/Creatinine Ratio 11 Glucose Level 686 *H 70-105 MG/DL Calcium Level 10.9 H 8.5-10.1 MG/DL Corrected Calcium 11.3 H 8.5-10.1 MG/DL Magnesium Level 2.2 1.6-2.4 MG/DL Total Bilirubin 0.3 0.1-1.0 MG/DL Aspartate Amino Transf (AST/SGOT) 13 5-34 U/L Alanine Aminotransferase (ALT/SGPT) 12 0-55 U/L Alkaline Phosphatase 129 40-136 U/L Total Protein 7.3 6.4-8.2 GM/DL Albumin 3.5 3.2-4.5 GM/DL TSH [place] Testing 0.82 0.35-4.94 UIU/ML Urine Color YELLOW Urine Clarity CLEAR Urine pH 6 5-9 Urine Specific [place] 1.010 L 1.016-1.022 Urine Protein 3+ H NEGATIVE Urine Glucose (UA) 4+ H NEGATIVE Urine Ketones NEGATIVE NEGATIVE Urine Nitrite NEGATIVE NEGATIVE Urine Bilirubin NEGATIVE NEGATIVE Urine Urobilinogen NORMAL NORMAL MG/DL Urine Leukocyte Esterase NEGATIVE NEGATIVE Urine RBC (Auto) 2+ H NEGATIVE Urine RBC 5-10 H /HPF Urine WBC 5-10 H /HPF Urine Squamous Epithelial Cells 0-5 /HPF Urine Crystals NONE /LPF Urine Bacteria TRACE /HPF Urine Casts NONE /LPF Urine Mucus NEGATIVE /LPF Urine Culture Indicated YES Urine Opiates Screen NEGATIVE NEGATIVE Urine Oxycodone Screen NEGATIVE NEGATIVE Urine Methadone Screen NEGATIVE NEGATIVE Urine Propoxyphene Screen NEGATIVE NEGATIVE Urine Barbiturates Screen NEGATIVE NEGATIVE Ur Tricyclic Antidepressants Screen NEGATIVE NEGATIVE Urine Phencyclidine Screen NEGATIVE NEGATIVE Urine Amphetamines Screen NEGATIVE NEGATIVE Urine Methamphetamines Screen NEGATIVE NEGATIVE Urine Benzodiazepines Screen NEGATIVE NEGATIVE Urine Cocaine Screen NEGATIVE NEGATIVE Urine Cannabinoids Screen NEGATIVE NEGATIVE Lactic Acid Level 2.40 *H 0.50-2.00 MMOL/L Blood Gas Puncture Site LEFT RADIAL Blood Gas Patient Temperature 98.0 Arterial Blood pH 7.50 H 7.37-7.43 Arterial Blood Partial Pressure CO2 29 L 35-45 MMHG Arterial Blood Partial Pressure O2 84 79-93 MMHG Arterial Blood HCO3 22 L 23-27 MMOL/L Arterial Blood Total CO2 22.9 21.0-31.0 MMOL/L Arterial Blood Oxygen Saturation 98 94-100 % Arterial Blood Base Excess -0.9 -2.5-2.5 MMOL/L Brett Test YES-POS Blood Gas Ventilator Setting NO Blood Gas Inspired Oxygen ROOM AIR My Orders Orders - JUDITH MCNEAL DO Accucheck Stat ONCE (05/21/19 18:38) Ed Iv/Invasive Line Start (05/21/19 18:38) Cbc With Automated Diff (05/21/19 18:38) Comprehensive Metabolic Panel (05/21/19 18:38) Drug Screen Stat (Urine) (05/21/19 18:38) Magnesium (05/21/19 18:38) Protime With Inr (05/21/19 18:38) Partial Thromboplastin Time (05/21/19 18:38) Thyroid Analyzer (05/21/19 18:38) Ua Culture If Indicated (05/21/19 18:38) Famotidine Tablet (Pepcid Tablet) (05/21/19 18:38) Diphenhydramine Injection (Benadryl Inje (05/21/19 18:38) Ed Iv/Invasive Line Start (05/21/19 19:22) Ns Iv 1000 Ml (Sodium Chloride 0.9%) (05/21/19 19:22) Insulin (Regular) Human (Humulin R (Per (05/21/19 19:30) Hydroxyzine Cap/Tab (Vistaril) (05/21/19 19:30) Monitor-Rhythm Ecg Trace Only (05/21/19:22) Arterial Blood Gas (05/21/19:22) Lactic Acid Analyzer (05/21/19:22) Urine Culture (05/21/19 19:07) Medications Given in ED Current Medications Medications Dose Ordered Sig/Dianne Route Start Time Stop Time Status Last Admin Dose Admin Hydroxyzine Pamoate 50 mg ONCE ONCE PO 05/21/19 19:30 05/21/19 19:31 DC 05/21/19 19:29 50 MG Insulin Human Regular 25 unit ONCE ONCE IV 05/21/19 19:30 05/21/19 19:31 DC 05/21/19 19:29 25 UNIT Vital Signs/I&O 05/21/19 18:32 Temp 36.7 Pulse 112 Resp 18 B/P (MAP) 151/96 (114) Pulse Ox 98 Blood Pressure Mean: 114 POS Progress Progress Note : Progress Note ITCHING IMPROVED WITH MEDICATIONS--GIVEN BENADRYL, PEPCID AND HYDROXYZINE GIVEN SALINE AND INSULIN AND BLOOD GLUCOSE DOWN TO 388 PRIOR TO ADMIT. GIVEN TOPROL XL FOR HTN AND ELEVATED HEART RATE--BOTH DOWN AT TIME OF ADMIT. Departure Communication (Admissions) 2004--SPOKE WITH DR. WATSON, HOSPITALIST FOR [facility] [place], ACCEPTS PT FOR ADMIT Impression Primary Impression: HHNK IN UNCONTROLLED IDDM WITHOUT COMA Additional Impressions: Uncontrolled hypertension PRURITC RASH OF UNKNOWN ETIOLOGY UTI (urinary tract infection) Renal insufficiency Non-compliance Lactic acidosis Disposition: ADMITTED INPATIENT Condition: Improved Admissions Decision to Admit Reason: Admit from ER (General) Decision to Admit/Date: May 21, 2019 Time/Decision to Admit Time: 20:05 Departure-Patient Inst. Referrals: JALEN PEREZ MD (PCP/Family) Primary Care Physician JUDITH MCNEAL DO May 21, 2019 18:45 POS
[2019-05-21 18:52] LABS: BASOPHILS % (AUTO) 0 % (0-10); EOSINOPHILS # (AUTO) 0.3 10^3/uL (0.0-0.3); EOSINOPHILS % (AUTO) 3 % (0-10); HEMATOCRIT 35 % (35-52); LYMPHOCYTES # (AUTO) 1.8 X 10^3 (1.0-4.0); LYMPHOCYTES % (AUTO) 18 % (12-44); MEAN CORPUSCULAR HEMOGLOBIN 31 PG (25-34); MEAN CORPUSCULAR HGB CONC 35 G/DL (32-36); MEAN CORPUSCULAR VOLUME 89 FL (80-99); MEAN PLATELET VOLUME 10.6 FL (7.4-10.4); MONOCYTES # (AUTO) 0.7 X 10^3 (0.0-1.0); MONOCYTES % (AUTO) 8 % (0-12); NEUTROPHILS # (AUTO) 6.8 X 10^3 (1.8-7.8); NEUTROPHILS % (AUTO) 71 % (42-75); PLATELET COUNT 279 10^3/uL (130-400); WHITE BLOOD COUNT 9.7 10^3/uL (4.3-11.0)
[2019-05-21] MEDS ORDERED: AMIT50TA3 (19:06)
[2019-05-21] MEDS ORDERED: GBPN600T PO (19:06)
[2019-05-21 19:08] LABS: INR 0.9 (0.8-1.4); PROTHROMBIN TIME PATIENT 12.8 SEC (12.2-14.7)
[2019-05-21 19:13] LABS: BILIRUBIN,URINE NEGATIVE (NEGATIVE); CLARITY,URINE CLEAR; COLOR,URINE YELLOW; GLUCOSE, URINE (UA) 4+ (NEGATIVE); KETONES,URINE NEGATIVE (NEGATIVE); LEUKOCYTE ESTERASE ,URINE NEGATIVE (NEGATIVE); NITRITE,URINE NEGATIVE (NEGATIVE); PH,URINE 6 (5-9); PROTEIN,URINE 3+ (NEGATIVE)
[2019-05-21 19:16] LABS: CALCIUM 10.9 MG/DL (8.5-10.1); CREATININE SERUM 1.94 MG/DL (0.60-1.30); MAGNESIUM 2.2 MG/DL (1.6-2.4); POTASSIUM 4.7 MMOL/L (3.6-5.0)
[2019-05-21 19:17] LABS: ALBUMIN 3.5 GM/DL (3.2-4.5); BILIRUBIN,TOTAL 0.3 MG/DL (0.1-1.0); TOTAL PROTEIN 7.3 GM/DL (6.4-8.2)
[2019-05-21] MEDS ORDERED: NS IV 1000 ML 1,000 ML IV SCH ×2 (19:22→20:07)
[2019-05-21 19:25] LABS: BACTERIA,URINE TRACE /HPF; SQUAMOUS EPITHELIAL CELL,UR 0-5 /HPF
[2019-05-21] MEDS ORDERED: inSUlin (REGULAR) HUMAN 1 UNIT/0.01 ML (CHARGE PER UNIT) IV ONE (19:30)
[2019-05-21] MEDS ORDERED: hydrOXYzine (VISTARIL/ATARAX) 25 MG capsule/tablet PO ONE (19:30)
[2019-05-21 19:37] LABS: TSH (THYROID ANALYZER) 0.82 UIU/ML (0.35-4.94)
[2019-05-21 19:38] LABS: AMPHETAMINE SCREEN, URINE NEGATIVE (NEGATIVE); BARBITURATE SCREEN URINE NEGATIVE (NEGATIVE); BENZODIAZEPINES SCREEN URINE NEGATIVE (NEGATIVE); CANNABINOID SCREEN, URINE NEGATIVE (NEGATIVE); COCAINE SCREEN URINE NEGATIVE (NEGATIVE); METHADONE STAT NEGATIVE (NEGATIVE); METHAMPHETAMINE SCREEN URINE S NEGATIVE (NEGATIVE); OPIATE SCREEN URINE NEGATIVE (NEGATIVE); OXYCODONE STAT NEGATIVE (NEGATIVE); PROPOXYPHENE STAT NEGATIVE (NEGATIVE); TRICYCLIC ANTIDEPRESSANTS SCRE NEGATIVE (NEGATIVE)
[2019-05-21 19:43] LABS: ABG BASE EXCESS -0.9 MMOL/L (-2.5-2.5); ABG OXYGEN SATURATION 98 % (94-100); ABG PCO2 29 MMHG (35-45); ABG PO2 84 MMHG (79-93); ABG TCO2 22.9 MMOL/L (21.0-31.0)
[2019-05-21 19:47] LABS: ALLENS TEST YES-POS; INSPIRED O2 ROOM AIR; VENTILATOR NO
[2019-05-21] MEDS ORDERED: cefTRIAXone FOR IV USE 1,000 MG in WATER (STERILE) FOR INJECTION 10 ML IV ONE (20:15)
[2019-05-21] MEDS ORDERED: meTOproloL SUCCINATE 50 MG (TOPROL XL) TAB PO ONE (20:37)
[2019-05-21] MEDS ORDERED: meTOprolol SUCCINATE 100 MG (TOPROL XL) TAB PO ONE (20:45)
[2019-05-21 21:15] VITALS: BP 160/108
[2019-05-21 21:30] VITALS: BP 144/88
[2019-05-21 21:45] VITALS: BP 152/87
[2019-05-21 22:00] VITALS: BP 117/106
[2019-05-21] MEDS ORDERED: HYDROCORTISONE 1% CREAM 30 GM TUBE TOP PRN (22:45)
[2019-05-21 23:00] VITALS: BP 106/75
[2019-05-22] VITALS (12 sets, daily range): BP systolic 117–157; BP diastolic 71–89
[2019-05-22] MEDS: diphenhydrAMINE 50 MG/ML INJ (BENADRYL) IV PRN (00:38)
[2019-05-22] MEDS: inSUlin ASPART (NovoLOG) 1 UNIT/0.01 ML (CHARGE PER UNIT) SC SCH ×8 (00:44→20:30)
[2019-05-22] MEDS: NS IV 1000 ML 1,000 ML IV SCH ×2 (00:45→00:46)
[2019-05-22 03:42] LABS: BASOPHILS % (AUTO) 0 % (0-10); EOSINOPHILS # (AUTO) 0.5 10^3/uL (0.0-0.3); EOSINOPHILS % (AUTO) 5 % (0-10); HEMATOCRIT 30 % (35-52); HEMOGLOBIN 10.3 G/DL (11.5-16.0); LYMPHOCYTES # (AUTO) 2.4 X 10^3 (1.0-4.0); LYMPHOCYTES % (AUTO) 24 % (12-44); MEAN CORPUSCULAR HEMOGLOBIN 31 PG (25-34); MEAN CORPUSCULAR HGB CONC 35 G/DL (32-36); MEAN CORPUSCULAR VOLUME 90 FL (80-99); MEAN PLATELET VOLUME 10.1 FL (7.4-10.4); MONOCYTES # (AUTO) 1.1 X 10^3 (0.0-1.0); MONOCYTES % (AUTO) 11 % (0-12); NEUTROPHILS # (AUTO) 6.2 X 10^3 (1.8-7.8); NEUTROPHILS % (AUTO) 60 % (42-75); PLATELET COUNT 249 10^3/uL (130-400); WHITE BLOOD COUNT 10.3 10^3/uL (4.3-11.0)
[2019-05-22 04:02] LABS: ALBUMIN 2.6 GM/DL (3.2-4.5); BILIRUBIN,TOTAL 0.2 MG/DL (0.1-1.0); CALCIUM 9.7 MG/DL (8.5-10.1); CREATININE SERUM 1.18 MG/DL (0.60-1.30); POTASSIUM 3.6 MMOL/L (3.6-5.0); TOTAL PROTEIN 5.5 GM/DL (6.4-8.2)
[2019-05-22] MEDS ORDERED: LACTATED RINGERS 1,000 ML IV SCH (05:45)
[2019-05-22] MEDS ORDERED: KCL 20 MEQ TAB (K-DUR) PO ONE (05:45)
--- NOTE | 2019-05-22 05:45 | Pulmonary Consultation ---
History of Present Illness History of Present Illness Date of Consultation 05/22/19 05:40 Time Seen by Provider: 05:05 Date of Admission History of Present Illness 54yo female with history of ror-er-uxaalsb diabetes presented to the ER found to have have hyperosmolar nonketotic hyperglycemia admitted to ICU with IV insulin. also found to have UTI. Pt is on insulin gtt. I am consulted for icu management. Allergies and Home Medications Allergies Coded Allergies: Penicillins (Unverified Allergy, Unknown, 06/03/15) ibuprofen (Verified Allergy, Unknown, 02/18/07) peas (Verified Allergy, Unknown, 01/19/18) Home Medications Acetaminophen 500 Mg Tablet, 1,000 MG PO Q8H PRN for PAIN-MILD, (Reported) Clopidogrel Bisulfate 75 Mg Tablet, 75 MG PO DAILY, (Reported) LAST FILLED 12-26-2018 FOR #90 SUPPLY Gabapentin 600 Mg Tablet, 600 MG PO Q8H, (Reported) Hydrocodone/Acetaminophen 1 Each Tablet, 1 TAB PO Q8H PRN for PAIN-MODERATE, (Reported) Insulin Aspart 300 Units/3 Ml Solution, 10 UNITS SC TIDWM, (Reported) Insulin Detemir 100 Unit/1 Ml Insuln.pen, 16 UNITS SC Q12H, (Reported) USES MORNING AND BEDTIME Lisinopril 20 Mg Tablet, 20 MG PO DAILY, (Reported) Metoprolol Succinate 100 Mg Tab.er.24h, 100 MG PO DAILY Prescribed by: YUMIKO WATSON on 05/23/19 1010 Past Hykfmxe-Ansuca-Ssyogv Hx Past Med/Social Hx: Reviewed and Corrections made Patient Social History Alcohol Use: Rarely Uses Number of Drinks Today: AA Alcohol Beverage of Choice: Beer Recreational Drug Use: No (DENIES) Smoking Status: Current Everyday Smoker (1 PPD) Type Used: Cigarettes (1 PPD) 2nd Hand Smoke Exposure: Yes Recent Foreign Travel: No Contact w/Someone Who Travel: No Recent Infectious Disease Expo: No Recent Hopitalizations: No Physical Abuse: No Sexual Abuse: No Mistreated: No Fear: No Immunizations Up To Date Tetanus Booster (TDap): Unknown Seasonal Allergies Seasonal Allergies: No Past Medical History Surgeries: Yes (EARDRUM,X4 /BMT'S; C-SECTIONS X 4; BILATERAL FEMUR FX'S / ORIF'S/RODS-PLATES; LEFT CARPAL TUNNEL SURGERY;,SHEA; UMBILICAL HERNIA; OVARIAN CYST REMOVAL) Abdominal, Section, Ear Surgery, Gallbladder, Orthopedic, Tubal Ligation Respiratory: Yes (PLEURAL EFFUSION--RESOLVED) Asthma Currently Using CPAP: No Currently Using BIPAP: No Cardiac: Yes Coronary Artery Disease, High Cholesterol, Hypertension Neurological: Yes (CVA 12/2012--RIGHT SIDE WEAKNESS RESOLVED. 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 PAIN' RIGHT DISTAL ULNA FRACTURE--NO SURGERY; ) Degenerate Disk Disease, Chronic Back Pain, Fractures Endocrine: Yes (POOR CONTROL;POOR COMPLIANCE IN ALL ASPECTS OF CARE; MULTIPLE EPISODES OF DKA) Diabetes, Insulin dep HEENT: Yes (BMT'S ) Chronic Ear Infection Loss of Vision: Denies Hearing Impairment: Denies Cancer: No Psychosocial: Yes (MOOD DISORDER) Sleep Difficulties, Anxiety, Personality Disorder, Depression Integumentary: No Blood Disorders: No Adverse Reaction/Blood Tranf: No Family Medical History Cardiovascular disease 19 FATHER 19 MOTHER G8 BROTHER Diabetes mellitus 19 FATHER FH: chronic obstructive pulmonary disease G8 BROTHER Prostate cancer 19 FATHER Heart Disease, Cancer, CAD Under 55 Years Old, COPD, Diabetes, Hypertension, Lung Disease, Psychiatric Problems, Vascular Disease, Other Conditions/Hx Review of Systems Time Seen by Provider: 05:07 Sepsis Event Evaluation Height, Weight, BMI Height: 5'2.00" Weight: 128lbs. 1.0oz. 58.194027iv; 20.00 BMI Method:Stated Exam Exam Vital Signs Date Time Temp Pulse Resp B/P (MAP) Pulse Ox O2 Delivery O2 Flow Rate FiO2 05/22/19 05:00 83 22 117/86 (96) 96 Room Air 05/22/19 04:00 Room Air 05/22/19 04:00 82 20 133/75 (94) 98 Room Air 05/22/19 03:00 84 13 134/78 (96) 97 Room Air 05/22/19 02:00 81 17 129/71 (90) 96 Room Air 05/22/19 01:00 91 05/22/19 01:00 84 17 140/76 (97) 99 Room Air 05/22/19 00:00 83 12 128/71 (90) 99 Room Air 05/22/19 00:00 Room Air 05/21/19 23:00 88 15 106/75 (85) 96 Room Air 05/21/19 22:41 100 Room Air 05/21/19 22:00 98 19 117/106 (110) 99 Room Air 05/21/19 21:45 98 15 152/87 (108) 100 Room Air 05/21/19 21:43 98 05/21/19 21:30 105 12 144/88 (106) 99 Room Air 05/21/19 21:15 36.5 97 13 160/108 (125) 100 Room Air 05/21/19 20:58 36.5 105 20 178/105 99 Room Air 05/21/19 18:32 36.7 112 18 151/96 (114) 98 I & O 05/22/19 07:00 Intake Total 3160 ml Output Total 900 ml Balance 2260 ml Height & Weight Height: 5'2.00" Weight: 128lbs. 1.0oz. 58.282345yq; 20.00 BMI Method:Stated General Appearance: No Apparent Distress, WD/WN HEENT: PERRL/EOMI, Normal ENT Inspection, Pharynx Normal Neck: Full Range of Motion, Normal Inspection, Non Tender, Supple Respiratory: Chest Non Tender, Lungs Clear, Normal Breath Sounds, No Accessory Muscle Use, No Respiratory Distress Cardiovascular: Regular Rate, Rhythm, No Edema, No Gallop Capillary Refill: Less Than 3 Seconds Gastrointestinal: normal bowel sounds, non tender, soft, no organomegaly Extremity: Normal Capillary Refill, Normal Inspection, No Pedal Edema Neurologic/Psychiatric: Alert, Oriented x3 Skin: Normal Color, Warm/Dry Lymphatic: No Adenopathy Results Lab Laboratory Tests 05/21/19 18:40 05/22/19 03:18 Assessment/Plan Assessment/Plan HHNK - chronically uncontrolled DM -Insuline gtt is off -Long acting insulin started and SSI Hypokalemia/hypophos -replace Medical noncompliance UTI -Cont Rocephin Pruritic abd/ bilateral leg rash -Monitor Renal failure Lactic acidosis -IVF LR at 100 cc/hr Will sign off once out of ICU. PANKAJ COLLIER 3, 2019 05:45 POS
[2019-05-22] MEDS: LACTATED RINGERS 1,000 ML IV SCH ×2 (05:56→16:00)
[2019-05-22] MEDS ORDERED: inSUlin ASPART (NovoLOG) 1 UNIT/0.01 ML (CHARGE PER UNIT) SC SCH (06:00)
[2019-05-22] MEDS: ENOXAPARIN 40 MG/0.4 ML (LOVENOX) SYR SC SCH (06:03)
--- NOTE | 2019-05-22 06:58 | Diagnostic Imaging Report ---
INDICATION: Uncontrolled diabetes. Urinary tract infection. Pruritic rash. Acidosis. Hypertension.. TECHNIQUE: Single view chest 3:22 AM. CORRELATION STUDY: 01/18/2018 FINDINGS: The heart size, mediastinal configuration and pulmonary vascularity are within normal limits. The lungs are clear with no consolidating infiltrate. There is no significant effusion or pneumothorax. Rightward curvature of the chest results in some distortion of the chest anatomy. IMPRESSION: 1. Negative for acute abnormality of the chest. Dictated by: Dictated on workstation # [id number]
[2019-05-22] MEDS ORDERED: NS IV 1000 ML 1,000 ML IV SCH (07:30)
[2019-05-22] MEDS: meTOprolol SUCCINATE 100 MG (TOPROL XL) TAB PO SCH (08:09)
--- NOTE | 2019-05-22 13:59 | History & Physical-Hospitalist ---
History of Present Illness HPI/Chief Complaint Chief complaint: Severe hyperglycemia History of present illness: This is a 54-year-old white female who has a history of bjm-nt-zkkryou diabetes who presented to the ER found to have have hyperosmolar nonketotic state requiring ICU admission with IV insulin. UTI is being treated also. Patient feels much better and wants to go home soon. Multiple family members are at the bedside. Source: patient Exam Limitations: no limitations Date Seen 05/22/19 Time Seen by a Provider: 12:00 Attending Physician Roxann Fine Holly R MD Referring Physician Date of Admission May 21, 2019 at 20:05 Home Medications & Allergies Home Medications Reviewed patient Home Medication Reconciliation performed by pharmacy medication reconciliations fibre composite technician and/or nursing. Patients Allergies have been reviewed. Allergies Allergies Coded Allergies Penicillins (Unverified Allergy, Unknown, 06/03/15) ibuprofen (Verified Allergy, Unknown, 02/18/07) peas (Verified Allergy, Unknown, 01/19/18) Past Iwtzhkc-Ervocc-Qmnnhz Hx Past Med/Social Hx: Reviewed Nursing Past Med/Soc Hx, Reviewed and Corrections made Patient Social History Alcohol Use: Rarely Uses Number of Drinks Today: AA Alcohol Beverage of Choice: Beer Recreational Drug Use: No (DENIES) Smoking Status: Current Everyday Smoker (1 PPD) Type Used: Cigarettes (1 PPD) 2nd Hand Smoke Exposure: Yes Recent Foreign Travel: No Contact w/other who traveled: No Recent Hopitalizations: No Recent Infectious Disease Expo: No Immunizations Up To Date Tetanus Booster (TDap): Unknown Seasonal Allergies Seasonal Allergies: No Past Medical History Surgeries: Abdominal, Section, Ear Surgery, Gallbladder, Orthopedic, Tubal Ligation Respiratory: Asthma, Pulmonary Embolism Currently Using CPAP: No Currently Using BIPAP: No Cardiac: Coronary Artery Disease, High Cholesterol, Hypertension Neurological: Headaches /Migraines, Neuropathy, Stroke Reproductive: No Sexually Transmitted Disease: No HIV/AIDS: No Female Reproductive Disorders: Denies Tubal Ligation, Menopausal Genitourinary: Bladder Infection, Renal Failure Gastrointestinal: Abdominal Hernia, Gastroesophageal Reflux Musculoskeletal: Degenerate Disk Disease, Chronic Back Pain, Fractures Endocrine: Diabetes, Insulin dep HEENT: Chronic Ear Infection Loss of Vision: Denies Hearing Impairment: Denies Psychosocial: Sleep Difficulties, Anxiety, Personality Disorder, Depression History of Blood Disorders: No Adverse Reaction to Blood Gloria: No Family History Cardiovascular disease 19 FATHER 19 MOTHER G8 BROTHER Diabetes mellitus 19 FATHER FH: chronic obstructive pulmonary disease G8 BROTHER Prostate cancer 19 FATHER Heart Disease, Cancer, CAD Under 55 Years Old, COPD, Diabetes, Hypertension, Lung Disease, Psychiatric Problems, Vascular Disease, Other Conditions/Hx Review of Systems Constitutional: see HPI Physical Exam Physical Exam Vital Signs Vital Signs - First Documented 05/21/19 05/21/19 18:32 20:58 Temp 36.7 Pulse 112 Resp 18 B/P (MAP) 151/96 (114) Pulse Ox 98 O2 Delivery Room Air Capillary Refill : Less Than 3 Seconds Height, Weight, BMI Height: 5'2.00" Weight: 128lbs. 1.0oz. 58.455294vw; 20.00 BMI Method:Stated General Appearance: No Apparent Distress, Chronically ill Eyes: Right Eye Normal Inspection, Right Eye PERRL HEENT: PERRL/EOMI, Normal ENT Inspection, Pharynx Normal, Moist Mucous Membranes Neck: Full Range of Motion, Normal Inspection, Non Tender Respiratory: Chest Non Tender, Lungs Clear, Normal Breath Sounds, No Accessory Muscle Use, No Respiratory Distress Cardiovascular: Regular Rate, Rhythm, No Edema, No Gallop, No JVD, No Murmur, Normal Peripheral Pulses Gastrointestinal: Normal Bowel Sounds, No Organomegaly, No Pulsatile Mass, Non Tender, Soft Back: Normal Inspection, No CVA Tenderness, No Vertebral Tenderness Extremity: Normal Capillary Refill, Normal Inspection, Normal Range of Motion, Non Tender, No Calf Tenderness, No Pedal Edema Neurologic/Psychiatric: Alert, Oriented x3, No Motor/Sensory Deficits, Normal Mood/Affect Skin: Normal Color, Warm/Dry Lymphatic: No Adenopathy Results Results/Procedures Labs Laboratory Tests 05/21/19 18:40 05/22/19 03:18 Patient resulted labs reviewed. Assessment/Plan Admission Diagnosis Assessment: NKS SMoker Plan: IV insulin transitioned to SQ DC tomorrow Admission Status: Inpatient Order (span 2 midnights) Reason for Inpatient Admission: NKS Diagnosis/Problems Diagnosis/Problems (1) Hyperosmolar non-ketotic state in patient with type 2 diabetes mellitus Status: Acute Clinical Quality Measures DVT/VTE Risk/Contraindication: Risk Factor Score Per Nursin RFS Level Per Nursing on Admit: 3=High ROXANN FINE DO May 22, 2019 13:59 POS
--- NOTE | 2019-05-22 15:43 | NUR ---
Report received from Jenny ACUÑA. Will assume care of patient at this time. Patient in room sitting on bed, patient oriented to room, call light within reach.
--- NOTE | 2019-05-22 15:47 | NUR ---
1640 PT TO ROOM 416 VIA W/C ACCOMPANIED BY AXLE TURNER. ALL PERSONAL BELONGINGS SENT WITH PT. REPORT GIVEN PRIOR TO TRANSFER TO ZENOBIA ACUÑA.
[2019-05-22] MEDS ORDERED: FAMOTIDINE 20MG/2ML IV (PEPCID) IV PRN (18:00)
[2019-05-22] MEDS ORDERED: cefTRIAXone 1,000 MG/SWFI 10 ML IV PUSH IV SCH ×2 (21:00)
[2019-05-22] MEDS ORDERED: cefTRIAXone 1,000 MG IV (ROCEPHIN) VIAL ONE (21:47)
[2019-05-22] MEDS ORDERED: WATER (STERILE) FOR INJECTION 10 ML ONE (21:47)
[2019-05-23 00:34] VITALS: BP 148/78
[2019-05-23] MEDS: LACTATED RINGERS 1,000 ML IV SCH ×2 (01:59→12:02)
[2019-05-23 04:50] VITALS: BP 141/82
[2019-05-23] MEDS: inSUlin ASPART (NovoLOG) 1 UNIT/0.01 ML (CHARGE PER UNIT) SC SCH ×4 (06:18→11:08)
[2019-05-23] MEDS: ENOXAPARIN 40 MG/0.4 ML (LOVENOX) SYR SC SCH (06:18)
[2019-05-23 08:00] VITALS: BP 146/85
[2019-05-23] MEDS: meTOprolol SUCCINATE 100 MG (TOPROL XL) TAB PO SCH (08:12)
[2019-05-23] MEDS: diphenhydrAMINE 50 MG/ML INJ (BENADRYL) IV PRN (08:21)
[2019-05-23] MEDS ORDERED: LISI-552 PO (09:44)
[2019-05-23] MEDS ORDERED: HYDR-3820 PO (09:44)
[2019-05-23] MEDS ORDERED: INSU100I29 SC (09:51)
[2019-05-23] MEDS ORDERED: INSU100I14 SC (09:51)
[2019-05-23] MEDS ORDERED: ACET-78 PO (09:51)
[2019-05-23] MEDS ORDERED: CLOP75TA28 PO (09:54)
--- NOTE | 2019-05-23 10:03 | NUR ---
SPOKE WITH PT (ALSO CALLED HER HE TAKES CARE OF HER MEDS), CALLED NITHYA AND BRIANDA WELL GOING THRU THE EXT MED HIS TO COMPLETE THE MED REC. PT AND HER WERE ABLE TO TELL HE ALL HER MEDICATIONS AND WELL HOW SHE TAKES THEM; ALL REFLECTED CORRECTLY ON THE EXT MED HIS EXCEPT FOR THE CLOPIDOGREL. 12-22-2018 CLOPIDOGREL#60/90DS OTC MEDS: APAP PRN
[2019-05-23] MEDS ORDERED: MTP100TCR PO (10:10)
--- NOTE | 2019-05-23 10:10 | Discharge Summary ---
Discharge Summary Hospital Course Was the Problem List Reviewed?: Yes Problems/Dx: (1) Hyperosmolar non-ketotic state in patient with type 2 diabetes mellitus Status: Acute Hospital Course Date of Admission: May 21, 2019 at 20:05 Admission Diagnosis : Family Physician/Provider: Karen Houser MD Date of Discharge: 05/23/19 Discharge Diagnosis: HHNKS Hospital Course: Hospital course: Pt had an uneventful hospital course. She was admitted for hyperosmolar nonketotic state, placed on IV insulin in the ICU. Blood sugars normalized and she was able to be resumed on subcutaneous insulin and was discharged in improved conditions with close follow up. She did already have her insulin at home and did not need any refills of that.I did send in Metoprolol that was started in the ICU. Labs and Pending Lab Test: Laboratory Tests 05/22/19 11:33: Glucometer 95 05/22/19 14:46: Glucometer 78 05/22/19 15:52: Glucometer 84 05/22/19 20:51: Glucometer 139H 05/23/19 05:50: Glucometer 187H Microbiology 05/21/19 Urine Culture - Final, Complete 3 or more isolates Home Meds Active Reported Clopidogrel (Clopidogrel Bisulfate) 75 Mg Tablet 75 Mg PO DAILY LAST FILLED 12-26-2018 FOR #90/90DAY SUPPLY Acetaminophen 500 Mg Tablet 1,000 Mg PO Q8H PRN Levemir Flextouch (Insulin Detemir) 100 Unit/1 Ml Insuln.pen 16 Units SC Q12H USES MORNING AND BEDTIME Novolog Flexpen (Insulin Aspart) 300 Units/3 Ml Solution 10 Units SC TIDWM Lisinopril 20 Mg Tablet 20 Mg PO DAILY Hydrocodon-Acetaminophn 10-325 (Hydrocodone/Acetaminophen) 1 Each Tablet 1 Tab PO Q8H PRN Gabapentin 600 Mg Tablet 600 Mg PO Q8H Assessment/Pt Instructions [facility] 1 week Discharge Planning: <30 minutes discharge planning Discharge Physical Examination Vital Signs Vital Signs Date Time Temp Pulse Resp B/P (MAP) Pulse Ox O2 Delivery O2 Flow Rate FiO2 05/23/19 08:00 36.8 80 20 146/85 (105) 95 Room Air Allergies: Coded Allergies: Penicillins (Unverified Allergy, Unknown, 06/03/15) ibuprofen (Verified Allergy, Unknown, 02/18/07) peas (Verified Allergy, Unknown, 01/19/18) Discharge Summary Date of Admission May 21, 2019 at 20:05 Date of Discharge Discharge Date: May 23, 2019 Admission Diagnosis Assessment: HHNKS SMoker Plan: IV insulin transitioned to SQ DC tomorrow Discharge Diagnosis (1) Hyperosmolar non-ketotic state in patient with type 2 diabetes mellitus Status: Acute Clinical Quality Measures DVT/VTE Risk/Contraindication: Risk Factor Score Per Nursin RFS Level Per Nursing on Admit: 3=High YUMIKO WATSON DO May 23, 2019 10:10 POS
[2019-05-23 11:36] VITALS: BP 146/85
--- NOTE | 2019-05-23 11:37 | NUR ---
SIENA DE SOUZA demonstrates understanding of discharge instructions and accurately returns instructions upon questioning. Copy of Post-Discharge Instructions and Medication Discharge Instructions given to SIENA DE SOUZA. SIENA DE SOUZA is able to manage continuing needs after discharge. Patients belongings returned to SIENA DE SOUZA. Skin dry and intact; no breakdown noted. Patient discharged from [facility] on 05/23/2019 at 1137. SIENA DE SOUZA left floor via AMBULATORY, accompanied by FAMILY.
--- OUTSIDE RECORDS SUMMARY | 2019-06-14 01:30 | XMS REPORT ---
Author Author JALEN PEREZ POS Organization [facility] SP Address [address] [place] [address] SP Care Team Providers Care Book Author Name Role Phone POS RISSAKARTIKFLAQUITOY Unavailable SP PROBLEMS Type Condition ICD9-CM Code [id number] Code Onset Dates Condition S tatus SNOMED POS Problem Type 2 diabetes mellitus with hyperglycemia E11.65 Active POS Problem Major depressive disorder, recurrent episode, moderate F33.1 Active SP Problem Obsessive-compulsive disorder, unspecified type F4 2.9 Active SP Problem Ataxia R27.0 Active [id number] SP Problem Falls frequently R29.6 Active 279 [id number] SP Problem Type 2 diabetes mellitus with other diab etic neurological complication SP E11.49 Active 35865295 SP 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 Active 431218012 SP Problem History of pulmonary embolism Z86.711 Active 809234279 SP Problem Type 2 diabetes mellitus with other diabetic kid allen complication SP Active 37130722 SP Problem Insomnia G47.00 Active 694364455 SP Problem Degenerative disc disease, lumbar M51.36 Active 84167645 SP Problem HTN (hypertension) I10 Active 3 6511103 SP Problem Hyperlipidemia E78.5 Active 87326 004 SP Problem CAD (coronary artery disease) I25.10 Active 69240347 SP Problem Chronic pain G89.29 Active 8852149 1 SP Problem Post-traumatic stress disorder F43.10 Active 59174342 SP ALLERGIES No Information ENCOUNTERS Encounter Location Date Diagnosis POS [facility] [address] [facility] [id number] [address] [place] [phone] SP Jun, SP [facility] [address] [facility] [id number] [address] [place] [address] SP Jun, SP [facility] [address] [facility] [id number] [address] [place] [phone] SP May, SP [facility] [address] [facility] [id number] [address] [place] [phone] SP May, SP [facility] [address] [facility] [id number] [address] [place] [address] SP May, SP [facility] [address] [facility] [id number] [address] [place] [address] SP Apr, Degenerative disc disease, l umbar M51.36 ; Chronic pain G89.29 ; SP frequently R29.6 ; Type 2 diabetes mellitus with hyperglycemia E11.65 and Type 2 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 E11.49 [facility] [address] [facility] [id number] [address] [place] [phone] SP Apr, SP [facility] [address] [facility] [id number] [address] [place] [address] SP Apr, Major depressive disorder, r ecurrent episode, moderate F33.1 and SPtraumatic stress disorder F43.10 [facility] [address] [facility] [id number] [address] [place] [phone] SP Apr, SP [facility] [address] [facility] [id number] [address] [place] [address] SP Apr, Post-traumatic stress disord er F43.10 ; Diabetes E11.9 ; SP E78.5 ; Major depressive disorder, recurrent episode, moderate F33.1 ; Other irritable bowel syndrome K58.8 and Chronic pain G89.29 [facility] [address] [facility] [id number] [address] [place] [address] SP Mar, Chronic pain G89.29 SP [facility] [address] [facility] [id number] [address] [place] [address] SP Feb, Type 2 diabetes mellitus wit h other diabetic neurological SP E11.49 ; 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.29 ; Degenerative disc disease, lumbar M51.36 and Chronic pain G89.29 [facility] [address] [id number] [address] [place] [address] SP Jan, SP [facility] [address] [facility] [id number] [address] [place] [phone] SP Jan, SP [facility] [address] [facility] [id number] [address] [place] [phone] SP Jan, SP [facility] [address] [facility] [id number] [address] [place] [phone] SP Jan, SP [facility] [address] [facility] [id number] [address] [place] [phone] SP Jan, SP [facility] [address] [facility] [id number] [address] [place] [phone] SP Jan, SP [facility] [address] [facility] [id number] [address] [place] [address] SP Jan, Slurred speech R47.81 ; Atax ia R27.0 ; Left arm weakness R29.898 SP Type 2 diabetes mellitus with hyperglycemia E11.65 and Type 2 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 E11.49 [facility] [address] [facility] [id number] [address] [place] [phone] SP Jan, SP [facility] [address] [facility] [id number] [address] [place] [address] SP Jan, Type 2 diabetes mellitus wit h hyperglycemia E11.65 and SP vomiting with nausea, unspecified vomiting type R11.2 [facility] [address] [facility] [id number] [address] [place] [address] SP Dec, CAD (coronary artery disease ) I25.10 and Atypical chest pain SP [facility] [address] [facility] [id number] [address] [place] [address] SP Dec, SP [facility] [address] [facility] [id number] [address] [place] [phone] SP Dec, Diabetes E11.9 ; Type 2 diab etes mellitus with hyperglycemia SP and Intractable vomiting with nausea, unspecified vomiting type R11.2 [facility] [address] [facility] [id number] [address] [place] [phone] SP Dec, Chronic pain G89.29 SP [facility] [address] [facility] [id number] [address] [place] [address] SP November, SP [facility] [address] [facility] [id number] [address] [place] [address] SP November, Diabetes E11.9 ; CAD ([place] ry artery disease) I25.10 ; Atypical SP pain R07.89 ; Type 2 diabetes mellitus with hyperglycemia E11.65 ; 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.29 ; [facility] 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.4 and Chronic pain G89.29 [facility] [address] [facility] [id number] [address] [place] [address] SP Oct, SP [facility] [address] [facility] [id number] [address] [place] [address] SP Oct, Chronic pain G89.29 SP [facility] [address] [facility] [id number] [address] [place] [phone] SP Sep, Diabetes E11.9 SP [facility] [address] [facility] [id number] [address] [place] [address] SP Sep, Chronic pain G89.29 [facility] [address] [facility] [id number] [address] [place] [phone] SP Sep, SP [facility] [address] [facility] [id number] [address] [place] [address] SP Sep, Falls frequently R29.6 ; Elier g term 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.4 SP Type 2 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 E11.49 [facility] [address] [facility] [id number] [address] [place] [phone] SP Sep, [facility] [address] [facility] [id number] [address] [place] [phone] SP Sep, Diabetes E11.9 [place] [id number] [facility] [id number] [address] [place] [phone] SP Aug, SP [facility] [address] [facility] [id number] [address] [place] [address] SP Aug, Chronic pain G89.29 SP [facility] [address] [facility] [id number] [address] [place] [phone] SP Aug, SP [facility] [address] [facility] [id number] [address] [place] [address] SP Aug, Chronic pain G89.29 SP [facility] [address] [facility] [id number] [address] [place] [phone] SP Jul, SP [facility] [address] [facility] [id number] [address] [place] [address] SP Jul, Diabetes E11.9 and Type 2 di abetes mellitus with other diabetic SP complication E11.29 [facility] [address] [facility] [id number] [address] [place] [address] SP Jul, Type 2 diabetes mellitus wit h other diabetic kidney complication SP [facility] [address] [facility] [id number] [address] [place] [address] SP Jul, SP [facility] [address] [facility] [id number] [address] [place] [address] SP Jul, Chronic pain G89.29 SP [facility] [address] [facility] [id number] [address] [place] [address] SP Jun, Diabetes E11.9 SP [facility] [address] [facility] [id number] [address] [place] [address] SP Jun, Chronic pain G89.29 SP [facility] [address] [facility] [id number] [address] [place] [address] SP Jun, Diabetes E11.9 ; Atypical ch est pain R07.89 ; [facility] current SP of insulin Z79.4 ; 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.29 ; Type 2 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 E11.49 ; History of pulmonary embolism Z86.711 and History of CVA (cerebrovascular accident) Z86.73 [facility] [address] [facility] [id number] [address] [place] [phone] SP May, SP [facility] [address] [place] [id number] [address] [place] [address] SP May, Chronic pain G89.29 SP [facility] [address] [facility] [id number] [address] [place] [address] SP Apr, Chronic pain G89.29 SP [facility] [address] [facility] [id number] [address] [place] [address] SP Apr, SP [facility] [address] [facility] [id number] [address] [place] [address] SP Mar, Chronic pain G89.29 SP [facility] [address] [facility] [id number] [address] [place] [address] SP Mar, Diabetes E11.9 SP [facility] [address] [place] [id number] [address] [place] [address] SP Mar, SP [facility] [address] [place] [id number] [address] [place] [address] SP Mar, Degenerative disc disease, l umbar M51.36 SP [facility] [address] [place] [id number] [address] [place] [address] SP Feb, Diabetes E11.9 SP [facility] [address] [place] [id number] [address] [place] [phone] SP Feb, Diabetes E11.9 [facility] [address] [place] [id number] [address] [place] [address] SP Feb, Diabetes E11.9 ; HTN (hypert ension) I10 ; Diabetic neuropathy SP and Leg cramps R25.2 [facility] [address] [place] [id number] [address] [place] [address] SP 15 Feb, 2017 Sprain of calcaneofibular li gament of right ankle, subsequent SP S93.411D ; Major depressive disorder, recurrent episode, moderate F33.1 ; Diabetes E11.9 ; Hyperlipidemia E78.5 ; Post-traumatic stress disorder F43.10 and Other irritable bowel syndrome K58.8 [facility] [address] [id number] [address] [place] [phone] SP Feb, Major depressive disorder, r ecurrent episode, moderate F33.1 ; SPtraumatic stress disorder F43.10 and Obsessive-compulsive disorder, unspecified type F42.9 [facility] [address] [id number] [address] [place] [address] SP Feb, SP [facility] [address] [id number] [address] [place] [address] SP Feb, Post-traumatic stress disord er F43.10 and Major depressive SP recurrent, moderate F33.1 [facility] [address] [id number] [address] [place] [address] SP Feb, Diabetes E11.9 SP [facility] [address] [id number] [address] [place] [phone] SP Feb, Degenerative disc disease, l umbar M51.36 SP [facility] [address] [id number] [address] [place] [address] SP Feb, Post-traumatic stress disord er F43.10 and Major depressive SP recurrent, moderate F33.1 [facility] [address] [id number] [address] [place] [phone] SP Feb, SP [facility] [address] [id number] [address] [place] [phone] SP Feb, Diabetes E11.9 SP [facility] [address] [id number] [address] [place] [phone] SP Jan, Diabetes E11.9 SP [facility] [address] [id number] [address] [place] [address] SP Jan, Post-traumatic stress disord er F43.10 and Major depressive SP recurrent, moderate F33.1 [facility] [address] [id number] [address] [place] [phone] SP Jan, Diabetes E11.9 SP [facility] [address] [id number] [address] [place] [phone] SP Jan, Diabetes E11.9 SP [facility] [address] [id number] [address] [place] [address] SP Jan, SP [facility] [address] [facility] [id number] [address] [place] [phone] SP Jan, SP [facility] [address] [facility] [id number] [address] [place] [phone] SP Jan, Post-traumatic stress disord er F43.10 and Major depressive SP recurrent, moderate F33.1 [facility] [address] [id number] [address] [place] [phone] SP Jan, SP [facility] [address] [id number] [address] [place] [address] SP Jan, Major depressive disorder, r ecurrent episode, moderate F33.1 ; SPtraumatic stress disorder F43.10 and Obsessive-compulsive disorder, unspecified type F42.9 [facility] [address] [id number] [address] [place] [phone] SP Jan, SP [facility] [address] [id number] [address] [place] [address] SP Jan, Diabetes E11.9 SP [facility] [address] [facility] [id number] [address] [place] [address] SP Jan, SP [facility] [address] [facility] [id number] [address] [place] [address] SP Jan, Sprain of calcaneofibular li gament of right ankle, subsequent SP S93.411D [facility] [address] [id number] [address] [place] [address] SP 13 Jan, 2017 Post-traumatic stress disord er F43.10 and Major depressive SP recurrent, moderate F33.1 [facility] [address] [id number] [address] [place] [address] SP Jan, Diabetes E11.9 SP [facility] [address] [id number] [address] [place] [phone] SP 16 Dec, 2016 Major depressive disorder, r ecurrent episode, moderate F33.1 ; SPtraumatic stress disorder F43.10 and Obsessive-compulsive disorder, unspecified type F42.9 [facility] [address] [id number] [address] [place] [phone] SP 15 Dec, 2016 SP [facility] [address] [id number] [address] [place] [address] SP 14 Dec, 2016 Sprain of calcaneofibular li gament of right ankle, subsequent SP S93.411D [facility] [address] [id number] [address] [place] [phone] SP 13 Dec, 2016 Post-traumatic stress disord er F43.10 and Major depressive SP recurrent, moderate F33.1 [facility] [address] [id number] [address] [place] [address] SP 13 Dec, 2016 Sprain of calcaneofibular li gament of right ankle, subsequent SP S93.411D [facility] [address] [id number] [address] [place] [phone] SP 12 Dec, 2016 Hyperlipidemia E78.5 SP [facility] [address] [id number] [address] [place] [address] SP Dec, SP [facility] [address] [id number] [address] [place] [address] SP Dec, Diabetes E11.9 ; Diabetic ne uropathy E11.40 ; Degenerative disc SP lumbar M51.36 ; Hyperlipidemia E78.5 ; Insomnia G47.00 ; CAD (coronary artery disease) I25.10 ; Major depressive disorder, recurrent, moderate F33.1 ; Post- traumatic stress disorder F43.10 and Other irritable bowel syndrome K58.8 [place] [address] [address] SP November, Diabetic neuropathy E11.40 a nd Hyperlipidemia E78.5 SP [place] [address] [address] SP November, Degenerative disc disease, l umbar M51.36 SP [place] [address] [address] SP Oct, [place] [address] [phone] SP Oct, Degenerative disc disease, l umbar M51.36 SP [place] [address] [address] SP Sep, Degenerative disc disease, l umbar M51.36 and HTN (hypertension) SP [place] [address] [address] SP Sep, Diabetic neuropathy E11.40 ; HTN (hypertension) I10 ; SP disc disease, lumbar M51.36 ; Hyperlipidemia E78.5 ; Insomnia G47.00 ; CAD (coronary artery disease) I25.10 and Diabetes E11.9 [place] [address] [address] SP Aug, SP [place] [address] [address] SP Aug, Type 2 diabetes mellitus wit h hyperglycemia E11.65 SP [place] [address] [place] [id number] [place] [address] SP Aug, [place] [address] [place] [id number] [place] [address] SP Jul, [facility] [address] [facility] [id number] [address] [place] [address] SP Jul, SP [facility] [address] [facility] [id number] [address] [place] [phone] SP Jun, SP [facility] [address] [facility] [id number] [address] [place] [address] SP Jun, SP [facility] [address] [facility] [id number] [address] [place] [phone] SP Jun, SP [facility] [address] [facility] [id number] [address] [place] [address] SP Jun, SP [facility] [address] [facility] [id number] [address] [place] [address] SP May, Major depressive disorder, r ecurrent episode, moderate F33.1 and SPtraumatic stress disorder F43.10 [place] [address] [facility] [id number] [address] [place] [phone] SP May, Major depressive disorder, r ecurrent episode, moderate F33.1 and SPtraumatic stress disorder F43.10 [place] [address] [facility] [id number] [address] [place] [address] SP May, Diabetes E11.9 ; Diabetic ne uropathy E11.40 ; HTN (hypertension) SP ; Gastritis K29.70 ; Hyperlipidemia E78.5 ; Insomnia G47.00 and Major depressive disorder, recurrent, moderate F33.1 [facility] [address] [facility] [id number] [address] [place] [phone] SP May, Major depressive disorder, r ecurrent episode, moderate F33.1 SP [facility] [address] [facility] [id number] [address] [place] [address] SP Apr, SP [facility] [address] [facility] [id number] [address] [place] [address] SP Apr, Major depressive disorder, r ecurrent episode, moderate F33.1 and SPtraumatic stress disorder F43.10 [place] [address] [facility] [id number] [address] [place] [address] SP Apr, Diabetes E11.9 ; Diabetic ne uropathy E11.40 ; Degenerative disc SP lumbar M51.36 ; HTN (hypertension) I10 ; Hyperlipidemia E78.5 ; Chronic pain G89.29 ; CAD (coronary artery disease) I25.10 and Major depressive disorder, recurrent, moderate F33.1 [place] [address] [facility] [id number] [address] [place] [address] SP Apr, Major depressive disorder, r ecurrent episode, moderate F33.1 and SPtraumatic stress disorder F43.10 [place] [address] [facility] [id number] [place] [address] SP Apr, Major depressive disorder, r ecurrent episode, moderate F33.1 and SPtraumatic stress disorder F43.10 [place] [address] [place] [id number] [address] [place] [phone] SP Apr, Major depressive disorder, r ecurrent episode, moderate F33.1 and SP episodic mood disorder F39 [place] [address] [facility] [id number] [address] [place] [address] SP Apr, Chronic pain G89.29 ; Diabet ic neuropathy E11.40 ; HTN SP I10 ; Insomnia G47.00 ; CAD (coronary artery disease) I25.10 ; Hyperlipidemia E78.5 ; Degenerative disc disease, lumbar M51.36 ; Diabetes E11.9 and Gastritis K29.70 [place] [address] [facility] [id number] [address] [place] [address] SP Sep, SP [place] [address] [facility] [id number] [address] [place] [address] SP Aug, SP [place] [address] [facility] [id number] [address] [place] [address] SP Jul, Major depressive disorder, r ecurrent episode, moderate F33.1 SP [place] [address] [place] [id number] [address] [place] [address] SP Jul, Unspecified episodic mood di sorder F39 SP [facility] [address] [place] [id number] [place] [phone] SP Jul, SP [facility] [address] [place] [id number] [place] [phone] SP Jul, SP [facility] [address] [address] SP Jul, SP [facility] [address] [place] [id number] [place] [address] SP Jul, Type 2 diabetes mellitus wit h hyperglycemia E11.65 ; Diabetic SP E11.40 ; Degenerative disc disease, lumbar M51.36 ; HTN (hypertension) I10 ; Gastritis K29.70 ; Hyperlipidemia E78.5 and CAD (coronary artery disease) I25.10 [facility] [address] [address] SP Jul, Severe episode of recurrent major depressive disorder, without SP features F33.2 [place] [address] [address] SP Jul, SP [facility] [address] [place] [id number] [place] [id number] SP Jun, SP [facility] [address] [id number] SP Jun, Diabetes E11.9 ; Diabetic ne uropathy E11.40 ; Degenerative disc SP lumbar M51.36 ; HTN (hypertension) I10 ; Gastritis K29.70 ; Hyperlipidemia E78.5 ; Unspecified episodic mood disorder F39 ; Depression F32.9 and CAD (coronary artery disease) I25.10 [facility] [address] [place] [id number] [place] [id number] SP Jun, SP [facility] [address] [id number] SP Jun, SP [facility] [address] [facility] [id number] [place] [id number] SP Jun, Diabetes E11.9 ; Diabetic ne uropathy E11.40 ; Degenerative disc SP lumbar M51.36 ; HTN (hypertension) I10 ; Gastritis K29.70 ; Chronic pain G89.29 ; Insomnia G47.00 and Unspecified episodic mood disorder F39 [facility] [facility] [address] [facility] [id number] [address] [place] [phone] SP May, Diabetic neuropathy E11.40 ; Degenerative disc disease, lumbar SP ; HTN (hypertension) I10 ; Gastritis K29.70 ; Hyperlipidemia E78.5 ; Chronic pain G89.29 ; Insomnia G47.00 ; Unspecified episodic mood disorder F39 ; Diabetes E11.9 ; CAD (coronary artery disease) I25.10 and H/O Gram positive sepsis Z86.19 [place] [address] [place] [id number] [address] [place] [phone] SP May, SP [facility] [address] [place] [id number] [address] [place] [phone] SP May, SP [facility] [address] [place] [id number] [address] [place] [address] SP May, SP [facility] [address] [place] [id number] [address] [place] [phone] SP May, SP [facility] [address] [place] [id number] [address] [place] [address] SP May, UTI (urinary tract infection ) N39.0 ; Diabetes E11.9 ; Diabetic SP E11.40 ; Hyperlipidemia E78.5 and Chronic pain G89.29 [facility] [address] [place] [id number] [address] [place] [phone] SP May, Insomnia, unspecified G47.00 and Chronic pain G89.29 SP [facility] [address] [place] [id number] [address] [place] [phone] SP May, SP [place] [address] [place] [id number] [address] [place] [phone] SP May, SP [facility] [address] [place] [id number] [place] [phone] SP May, SP [facility] [address] [place] [id number] [place] [phone] SP Apr, Insomnia, unspecified G47.00 ; Chronic pain G89.29 and SP episodic mood disorder F39 [facility] [address] [phone] SP Apr, Unspecified episodic mood di sorder F39 SP [facility] [address] [place] [id number] [place] [phone] SP Apr, Major depression F32.9 SP [place] [address] [address] SP Apr, SP [facility] [address] [address] SP Apr, Diabetes E11.9 ; Diabetic ne uropathy E11.40 ; Degenerative disc SP lumbar M51.36 ; HTN (hypertension) I10 ; Gastritis K29.70 ; Hyperlipidemia E78.5 ; Chronic pain G89.29 and Insomnia G47.00 [place] [address] [place] [id number] [address] [place] [phone] SP Mar, SP [facility] [address] [place] [id number] [address] [place] [phone] SP Mar, SP [facility] [address] [place] [id number] [address] [place] [phone] SP Mar, SP [place] [address] [place] [id number] [address] [place] [address] SP Mar, Diabetes mellitus 250.00 ; D iabetic neuropathy 250.60 ; CAD SP artery disease) 414.00 ; Degenerative disc disease, lumbar 722.52 ; Gastritis 535.50 and Insomnia 780.52 [place] [address] [facility] [id number] [address] [place] [phone] SP Mar, Diabetes mellitus 250.00 ; D egenerative disc disease, lumbar SP ; Essential hypertension 401.9 ; Gastritis 535.50 and Chronic pain 338.29 [facility] [address] [facility] [id number] [address] [place] [phone] SP Feb, SP [facility] [address] [facility] [id number] [address] [place] [phone] SP Feb, SP [facility] [address] [facility] [id number] [address] [place] [phone] SP Jan, SP [facility] [address] [facility] [id number] [address] [place] [phone] SP Jan, Diabetes mellitus 250.00 ; D iabetic neuropathy 250.60 ; SP disc disease, lumbar 722.52 ; CAD (coronary artery disease) 414.00 ; Essential hypertension 401.9 ; Gastritis 535.50 ; Hyperlipidemia 272.4 and Distal end of ulna fracture, closed 813.43 [facility] [address] [place] [id number] [address] [place] [phone] SP Dec, Wrist pain 719.43 and Diabet es mellitus 250.00 SP [facility] [address] [facility] [id number] [address] [place] [phone] SP May, SP [facility] [address] [facility] [id number] [address] [place] [phone] SP Dec, SP [facility] [address] [facility] [id number] [address] [place] [phone] SP November, SP [facility] [address] [place] [id number] [address] [place] [phone] SP Oct, SP [facility] [address] [facility] [id number] [address] [place] [phone] SP Sep, SP [facility] [address] [place] [id number] [place] [phone] SP 11 Sep, 2009 SP [facility] [address] [id number] [address] [place] [address], [place] [address] SP Jun, SP [facility] [address] [id number] [address] [place] [phone] SP Jun, SP [facility] [address] [id number] [address] [place] [address], [place] [address] SP 14 Jun, 2009 SP [facility] [address] [id number] [address] [place] [phone] SP Jun, SP [facility] [address] [id number] [address] [place] [phone] SP Jun, SP [facility] [address] [id number] [address] [place] [phone] SP Jun, SP [facility] [address] [id number] [address] [place] [phone] SP Jun, SP [facility] [address] [id number] [address] [place] [phone] SP May, SP [facility] [address] [id number] [address] [place] [phone] SP May, SP [facility] [address] [id number] [address] [place] [phone] SP May, SP [facility] [address] [id number] [address] [place] [phone] SP May, SP [facility] [address] [id number] [address] [place] [address], [place] [address] SP 28 Apr, 2009 SP [facility] [address] [id number] [address] [place] [phone] SP 19 Apr, 2009 SP [facility] [address] [id number] [address] [place] [phone] SP 12 Apr, 2009 SP [facility] [address] [id number] [address] [place] [phone] SP 16 Mar, 2009 SP [facility] [address] [facility] [id number] [address] [place] [phone] SP Dec, SP IMMUNIZATIONS No Known Immunizations SOCIAL HISTORY Never Assessed REASON FOR VISIT refill PLAN OF CARE VITAL SIGNS MEDICATIONS Medication Instructions Dosage Frequency Start Date End Date Duration S tatus POS Gabapentin 300 MG Orally 3 times a day 1 capsule 8h 30 days Active SP RESULTS No Results PROCEDURES No Known procedures INSTRUCTIONS MEDICATIONS ADMINISTERED No Known Medications MEDICAL (GENERAL) HISTORY Type Description Date POS Medical History Type 2 Diabetes SP Medical History diabetic neuropathy SP Medical History Stroke SP Medical History asthma SP Medical History degenerative disk disease SP Medical History hypertension SP Medical History hyperlipidemia SP Surgical History carpel tunnel SP Surgical History hernia SP Surgical History x 4 SP Surgical History titanium plates in both thighs SP Surgical History ear surgery on left ear to fix hole in e ar drum SP Hospitalization History surgeries SP Hospitalization History stroke 12/2012 SP Hospitalization History blood transfusion 2010 SP Hospitalization History Stroke 05/23/2015 SP Hospitalization History UTI/blood infection 06/03/2015 SP Hospitalization History UTI/low wbc count/dehydration 2014 SP Hospitalization History Blood clot in lung 01/2016 SP Hospitalization History Sepsis from UTI, uncontrolled IDDM, nv. HTN 08/18/16 SP
--- OUTSIDE RECORDS SUMMARY | 2019-06-14 01:30 | XMS REPORT ---
Author Author JALEN PEREZ POS Organization [facility] SP Address [address] [place] [address] SP Care Team Providers Care Language Tutor Name Role Phone POS ANA JALEN Unavailable SP PROBLEMS Type Condition ICD9-CM Code [id number] Code Onset Dates Condition S tatus SNOMED POS Problem Type 2 diabetes mellitus with hyperglycemia E11.65 Active POS Problem Major depressive disorder, recurrent episode, moderate F33.1 Active SP Problem Obsessive-compulsive disorder, unspecified type F4 2.9 Active SP Problem Ataxia R27.0 Active 44932722 SP Problem Falls frequently R29.6 Active 279 688113 SP Problem Type 2 diabetes mellitus with other diab etic neurological complication SP E11.49 Active 87348702 SP Problem 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 Active 091088125 SP Problem History of pulmonary embolism Z86.711 Active 968996930 SP Problem Type 2 diabetes mellitus with other diabetic kid allen complication SP Active 22797432 SP Problem Insomnia G47.00 Active 400051963 SP Problem Degenerative disc disease, lumbar M51.36 Active 27699390 SP Problem HTN (hypertension) I10 Active 3 9052139 SP Problem Hyperlipidemia E78.5 Active 59149 004 SP Problem CAD (coronary artery disease) I25.10 Active 65608644 SP Problem Chronic pain G89.29 Active 5922940 1 SP Problem Post-traumatic stress disorder F43.10 Active 51039417 SP ALLERGIES Substance Reaction Event Type Date Status POS Viibryd N/V Drug Allergy May, Active SP Seroquel N/V and "couldn't do anything." Drug Allergy May, 018 Active SP Penicillin V Potassium Unknown Drug Allergy May, Activ e SP Lexapro N/V, inc. suicidality Drug Allergy May, Active SP Ibuprofen Unknown Drug Allergy May, Active SP Depakote inc. suicidality Drug Allergy May, Active SP ENCOUNTERS Encounter Location Date Diagnosis POS [facility] [id number] [place] [phone] SP Jun, SP [facility] [address] [facility] [address] [facility] [id number] [address] [place] [phone] SP Jun, SP [facility] [id number] [place] [phone] SP May, Fatigue, unspecified type R5 3.83 ; Type 2 diabetes mellitus with SP E11.65 ; Encounter for immunization Z23 ; Type 2 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 E11.49 ; 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.29 ; 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 and Falls frequently R29.6 [facility] [address] [facility] [id number] [place] [phone] SP May, Type 2 diabetes mellitus wit h hyperglycemia E11.65 and SP E78.5 [place] [id number] [place] [phone] SP May, SP [facility] [id number] [place] [phone] SP Apr, Degenerative disc disease, l umbar M51.36 ; Chronic pain G89.29 ; SP frequently R29.6 ; Type 2 diabetes mellitus with hyperglycemia E11.65 and Type 2 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 E11.49 [facility] [address] [id number] [address] [place] [phone] SP Apr, SP [facility] [address] [address] [facility] [id number] [address] [place] [address] SP Apr, Major depressive disorder, r ecurrent episode, moderate F33.1 and SPtraumatic stress disorder F43.10 [facility] [address] [address] [facility] [id number] [address] [place] [phone] SP Apr, SP [facility] [id number] [place] [phone] SP Apr, Post-traumatic stress disord er F43.10 ; Diabetes E11.9 ; SP E78.5 ; Major depressive disorder, recurrent episode, moderate F33.1 ; Other irritable bowel syndrome K58.8 and Chronic pain G89.29 [facility] [address] [id number] [address] [place] [phone] SP Mar, Chronic pain G89.29 SP [facility] [address] [id number] [address] [place] [phone] SP Feb, Type 2 diabetes mellitus wit h other diabetic neurological SP E11.49 ; 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.29 ; Degenerative disc disease, lumbar M51.36 and Chronic pain G89.29 [facility] [address] [id number] [address] [place] [phone] SP Jan, SP [facility] [address] [id number] [address] [place] [phone] SP Jan, SP [facility] [address] [id number] [address] [place] [phone] SP Jan, SP [facility] [address] [id number] [address] [place] [phone] SP Jan, SP [facility] [address] [id number] [address] [place] [phone] SP Jan, SP [facility] [address] [id number] [address] [place] [phone] SP Jan, SP [facility] [address] [id number] [address] [place] [phone] SP Jan, Slurred speech R47.81 ; Atax ia R27.0 ; Left arm weakness R29.898 SP Type 2 diabetes mellitus with hyperglycemia E11.65 and Type 2 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 E11.49 [facility] [address] [id number] [address] [place] [phone] SP Jan, SP [facility] [address] [id number] [address] [place] [phone] SP Jan, Type 2 diabetes mellitus wit h hyperglycemia E11.65 and SP vomiting with nausea, unspecified vomiting type R11.2 [facility] [address] [facility] [id number] [address] [place] [phone] SP Dec, CAD (coronary artery disease ) I25.10 and Atypical chest pain SP [facility] [address] [address] [facility] [id number] [address] [place] [phone] SP Dec, SP [place] [address] [facility] [facility] [id number] [place] [phone] SP Dec, Diabetes E11.9 ; Type 2 diab etes mellitus with hyperglycemia SP and Intractable vomiting with nausea, unspecified vomiting type R11.2 [place] [address] [facility] [facility] [id number] [place] [phone] SP Dec, Chronic pain G89.29 SP [place] [id number] [place] [phone] SP November, SP [place] [id number] [place] [phone] SP November, Diabetes E11.9 ; CAD ([place]in[place] ry artery disease) I25.10 ; Atypical SP pain R07.89 ; Type 2 diabetes mellitus with hyperglycemia E11.65 ; 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.29 ; [facility] 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.4 and Chronic pain G89.29 [place] [address] [facility] [facility] [id number] [address] [place] [phone] SP Oct, SP [facility] [address] [facility] [id number] [address] [place] [address] SP Oct, Chronic pain G89.29 SP [place] [id number] [place] [address] SP Sep, Diabetes E11.9 SP [place] [id number] [place] [phone] SP Sep, Chronic pain G89.29 SP [facility] [address] [facility] [id number] [address] [place] [phone] SP Sep, SP [facility] [address] [facility] [id number] [address] [place] [phone] SP Sep, Falls frequently R29.6 ; Elier g term 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.4 SP Type 2 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 E11.49 [facility] [address] [facility] [id number] [address] [place] [phone] SP Sep, SP [facility] [address] [facility] [id number] [address] [place] [phone] SP Sep, Diabetes E11.9 SP [facility] [address] [facility] [id number] [address] [place] [phone] SP Aug, SP [facility] [address] [facility] [id number] [address] [place] [phone] SP Aug, Chronic pain G89.29 SP [facility] [address] [facility] [id number] [address] [place] [phone] SP Aug, SP [facility] [address] [facility] [id number] [address] [place] [phone] SP Aug, Chronic pain G89.29 SP [facility] [address] [facility] [id number] [address] [place] [phone] SP Jul, SP [facility] [address] [facility] [id number] [address] [place] [phone] SP Jul, Diabetes E11.9 and Type 2 di abetes mellitus with other diabetic SP complication E11.29 [facility] [address] [facility] [id number] [address] [place] [phone] SP Jul, Type 2 diabetes mellitus wit h other diabetic kidney complication SP [facility] [address] [facility] [id number] [address] [place] [phone] SP Jul, [facility] [address] [facility] [id number] [address] [place] [phone] SP Jul, Chronic pain G89.29 SP [facility] [address] [facility] [id number] [address] [place] [phone] SP Jun, Diabetes E11.9 SP [facility] [address] [facility] [id number] [address] [place] [phone] SP Jun, Chronic pain G89.29 SP [facility] [address] [facility] [id number] [address] [place] [phone] SP Jun, Diabetes E11.9 ; Atypical ch est pain R07.89 ; 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 current SP of insulin Z79.4 ; 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.29 ; Type 2 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 E11.49 ; History of pulmonary embolism Z86.711 and History of CVA (cerebrovascular accident) Z86.73 [facility] [address] [facility] [id number] [address] [place] [phone] SP May, SP [facility] [address] [facility] [id number] [address] [place] [phone] SP May, Chronic pain G89.29 SP [facility] [address] [facility] [id number] [address] [place] [phone] SP Apr, Chronic pain G89.29 SP [facility] [address] [facility] [id number] [address] [place] [phone] SP Apr, SP [facility] [address] [facility] [id number] [address] [place] [phone] SP Mar, Chronic pain G89.29 SP [facility] [address] [facility] [id number] [address] [place] [phone] SP Mar, Diabetes E11.9 SP [facility] [address] [facility] [id number] [address] [place] [phone] SP Mar, SP [facility] [address] [facility] [id number] [address] [place] [phone] SP Mar, Degenerative disc disease, l umbar M51.36 SP [place] [address] [facility] [address] [facility] [id number] [address] [place] [phone] SP Feb, Diabetes E11.9 SP [place] [address] [facility] [facility] [id number] [address] [place] [phone] SP Feb, Diabetes E11.9 SP [place] [address] [facility] [address] [facility] [id number] [address] [place] [phone] SP Feb, Diabetes E11.9 ; HTN (hypert ension) I10 ; Diabetic neuropathy SP and Leg cramps R25.2 [place] [address] [facility] [facility] [id number] [address] [place] [phone] SP Feb, Sprain of calcaneofibular li gament of right ankle, subsequent SP S93.411D ; Major depressive disorder, recurrent episode, moderate F33.1 ; Diabetes E11.9 ; Hyperlipidemia E78.5 ; Post-traumatic stress disorder F43.10 and Other irritable bowel syndrome K58.8 [place] [address] [facility] [facility] [id number] [address] [place] [phone] SP Feb, Major depressive disorder, r ecurrent episode, moderate F33.1 ; SPtraumatic stress disorder F43.10 and Obsessive-compulsive disorder, unspecified type F42.9 [place] [address] [facility] [facility] [id number] [address] [place] [phone] SP Feb, SP [place] [address] [facility] [facility] [id number] [address] [place] [phone] SP Feb, Post-traumatic stress disord er F43.10 and Major depressive SP recurrent, moderate F33.1 [place] [address] [facility] [facility] [id number] [address] [place] [phone] SP Feb, Diabetes E11.9 SP [place] [address] [facility] [facility] [id number] [address] [place] [phone] SP Feb, Degenerative disc disease, l umbar M51.36 SP [facility] [address] [id number] [address] [place] [phone] SP Feb, Post-traumatic stress disord er F43.10 and Major depressive SP recurrent, moderate F33.1 [facility] [address] [id number] [address] [place] [phone] SP Feb, SP [facility] [address] [id number] [address] [place] [phone] SP Feb, Diabetes E11.9 SP [facility] [address] [id number] [address] [place] [phone] SP Jan, Diabetes E11.9 SP [facility] [address] [id number] [address] [place] [phone] SP Jan, Post-traumatic stress disord er F43.10 and Major depressive SP recurrent, moderate F33.1 [facility] [address] [id number] [address] [place] [phone] SP Jan, Diabetes E11.9 SP [facility] [address] [id number] [address] [place] [phone] SP Jan, Diabetes E11.9 SP [facility] [address] [id number] [address] [place] [phone] SP Jan, SP [facility] [address] [id number] [address] [place] [phone] SP Jan, SP [facility] [address] [id number] [address] [place] [phone] SP Jan, Post-traumatic stress disord er F43.10 and Major depressive SP recurrent, moderate F33.1 [facility] [address] [id number] [address] [place] [phone] SP Jan, SP [facility] [address] [address] [facility] [id number] [address] [place] [phone] SP Jan, Major depressive disorder, r ecurrent episode, moderate F33.1 ; SPtraumatic stress disorder F43.10 and Obsessive-compulsive disorder, unspecified type F42.9 [facility] [address] [id number] [address] [place] [phone] SP 17 Jan, 2017 SP [facility] [address] [id number] [address] [place] [phone] SP Jan, Diabetes E11.9 SP [facility] [address] [id number] [address] [place] [phone] SP Jan, SP [facility] [address] [id number] [address] [place] [phone] SP Jan, Sprain of calcaneofibular li gament of right ankle, subsequent SP S93.411D [place] [address] [id number] [address] [place] [phone] SP Jan, Post-traumatic stress disord er F43.10 and Major depressive SP recurrent, moderate F33.1 [place] [address] [id number] [address] [place] [phone] SP Jan, Diabetes E11.9 SP [facility] [address] [id number] [address] [place] [phone] SP 16 Dec, 2016 Major depressive disorder, r ecurrent episode, moderate F33.1 ; SPtraumatic stress disorder F43.10 and Obsessive-compulsive disorder, unspecified type F42.9 [place] [address] [id number] [address] [place] [phone] SP 15 Dec, 2016 SP [facility] [address] [id number] [address] [place] [phone] SP 14 Dec, 2016 Sprain of calcaneofibular li gament of right ankle, subsequent SP S93.411D [facility] [address] [id number] [address] [place] [phone] SP Dec, Post-traumatic stress disord er F43.10 and Major depressive SP recurrent, moderate F33.1 [place] [id number] [place] [address] SP 13 Dec, 2016 Sprain of calcaneofibular li gament of right ankle, subsequent SP S93.411D [place] [address] [id number] [place] [address] SP Dec, Hyperlipidemia E78.5 SP [place] [id number] [place] [phone] SP Dec, SP [place] [address] [phone] SP Dec, Diabetes E11.9 ; Diabetic ne uropathy E11.40 ; Degenerative disc SP lumbar M51.36 ; Hyperlipidemia E78.5 ; Insomnia G47.00 ; CAD (coronary artery disease) I25.10 ; Major depressive disorder, recurrent, moderate F33.1 ; Post- traumatic stress disorder F43.10 and Other irritable bowel syndrome K58.8 [place] [address] [address] SP November, Diabetic neuropathy E11.40 a nd Hyperlipidemia E78.5 SP [place] [address] [phone] SP November, Degenerative disc disease, l umbar M51.36 SP [place] [address] [phone] SP Oct, SP [place] [address] [address] SP Oct, Degenerative disc disease, l umbar M51.36 SP [place] [id number] [place] [address] SP Sep, Degenerative disc disease, l umbar M51.36 and HTN (hypertension) SP [place] [id number] [place] [address] SP Sep, Diabetic neuropathy E11.40 ; HTN (hypertension) I10 ; SP disc disease, lumbar M51.36 ; Hyperlipidemia E78.5 ; Insomnia G47.00 ; CAD (coronary artery disease) I25.10 and Diabetes E11.9 [facility] [address] [facility] [id number] [address] [place] [phone] SP Aug, SP [facility] [address] [facility] [id number] [address] [place] [phone] SP Aug, Type 2 diabetes mellitus wit h hyperglycemia E11.65 SP [facility] [address] [facility] [id number] [address] [place] [phone] SP Aug, SP [facility] [address] [facility] [id number] [address] [place] [phone] SP Jul, SP [facility] [address] [facility] [id number] [address] [place] [phone] SP Jul, SP [facility] [address] [facility] [id number] [address] [place] [phone] SP Jun, SP [facility] [address] [facility] [id number] [address] [place] [phone] SP Jun, SP [facility] [address] [facility] [id number] [address] [place] [phone] SP Jun, SP [facility] [address] [id number] [address] [place] [phone] SP Jun, SP [facility] [address] [facility] [id number] [address] [place] [phone] SP May, Major depressive disorder, r ecurrent episode, moderate F33.1 and SPtraumatic stress disorder F43.10 [facility] [address] [facility] [id number] [address] [place] [phone] SP May, Major depressive disorder, r ecurrent episode, moderate F33.1 and SPtraumatic stress disorder F43.10 [facility] [address] [facility] [address] [facility] [id number] [address] [place] [phone] SP May, Diabetes E11.9 ; Diabetic ne uropathy E11.40 ; HTN (hypertension) SP ; Gastritis K29.70 ; Hyperlipidemia E78.5 ; Insomnia G47.00 and Major depressive disorder, recurrent, moderate F33.1 [facility] [address] [facility] [address] [facility] [id number] [address] [place] [phone] SP May, Major depressive disorder, r ecurrent episode, moderate F33.1 SP [facility] [address] [facility] [address] [facility] [id number] [address] [place] [phone] SP Apr, SP [facility] [address] [facility] [address] [facility] [id number] [address] [place] [phone] SP Apr, Major depressive disorder, r ecurrent episode, moderate F33.1 and SPtraumatic stress disorder F43.10 [place] [id number] [facility] [id number] [address] [place] [phone] SP Apr, Diabetes E11.9 ; Diabetic ne uropathy E11.40 ; Degenerative disc SP lumbar M51.36 ; HTN (hypertension) I10 ; Hyperlipidemia E78.5 ; Chronic pain G89.29 ; CAD (coronary artery disease) I25.10 and Major depressive disorder, recurrent, moderate F33.1 [place] [address] [address] [facility] [facility] [id number] [address] [place] [phone] SP Apr, Major depressive disorder, r ecurrent episode, moderate F33.1 and SPtraumatic stress disorder F43.10 [place] [address] [address] [facility] [facility] [id number] [address] [place] [phone] SP Apr, Major depressive disorder, r ecurrent episode, moderate F33.1 and SPtraumatic stress disorder F43.10 [place] [id number] [facility] [id number] [address] [place] [phone] SP Apr, Major depressive disorder, r ecurrent episode, moderate F33.1 and SP episodic mood disorder F39 [facility] [address] [facility] [address] [facility] [id number] [address] [place] [address] SP Apr, Chronic pain G89.29 ; Diabet ic neuropathy E11.40 ; HTN SP I10 ; Insomnia G47.00 ; CAD (coronary artery disease) I25.10 ; Hyperlipidemia E78.5 ; Degenerative disc disease, lumbar M51.36 ; Diabetes E11.9 and Gastritis K29.70 [facility] [address] [address] SP Sep, SP [facility] [address] [address] SP Aug, SP [place] [address] [address] SP Jul, Major depressive disorder, r ecurrent episode, moderate F33.1 SP [place] [address] [address] SP Jul, Unspecified episodic mood di sorder F39 SP [place] [address] [address] SP Jul, SP [place] [address] [address] SP Jul, SP [place] [address] [address] SP Jul, SP [place] [address] [address] SP Jul, Type 2 diabetes mellitus wit h hyperglycemia E11.65 ; Diabetic SP E11.40 ; Degenerative disc disease, lumbar M51.36 ; HTN (hypertension) I10 ; Gastritis K29.70 ; Hyperlipidemia E78.5 and CAD (coronary artery disease) I25.10 [place] [address] [address] SP Jul, Severe episode of recurrent major depressive disorder, without SP features F33.2 [place] [address] [address] SP Jul, SP [place] [address] [place] [id number] [place] [address] SP Jun, SP [facility] [address] [address] SP Jun, Diabetes E11.9 ; Diabetic ne uropathy E11.40 ; Degenerative disc SP lumbar M51.36 ; HTN (hypertension) I10 ; Gastritis K29.70 ; Hyperlipidemia E78.5 ; Unspecified episodic mood disorder F39 ; Depression F32.9 and CAD (coronary artery disease) I25.10 [facility] [address] [address] SP Jun, SP [place] [address] [address] SP Jun, SP [facility] [address] [address] SP Jun, Diabetes E11.9 ; Diabetic ne uropathy E11.40 ; Degenerative disc SP lumbar M51.36 ; HTN (hypertension) I10 ; Gastritis K29.70 ; Chronic pain G89.29 ; Insomnia G47.00 and Unspecified episodic mood disorder F39 [place] [address] [address] SP May, Diabetic neuropathy E11.40 ; Degenerative disc disease, lumbar SP ; HTN (hypertension) I10 ; Gastritis K29.70 ; Hyperlipidemia E78.5 ; Chronic pain G89.29 ; Insomnia G47.00 ; Unspecified episodic mood disorder F39 ; Diabetes E11.9 ; CAD (coronary artery disease) I25.10 and H/O Gram positive sepsis Z86.19 [facility] [address] [address] [facility] [id number] [address] [place] [address] SP May, SP [facility] [address] [address] SP May, SP [facility] [address] [place] [id number] [address] [place] [address] SP May, SP [facility] [address] [place] [id number] [address] [place] [address] SP May, SP [facility] [address] [place] [id number] [place] [address] SP May, UTI (urinary tract infection ) N39.0 ; Diabetes E11.9 ; Diabetic SP E11.40 ; Hyperlipidemia E78.5 and Chronic pain G89.29 [facility] [address] [place] [id number] [address] [place] [address] SP May, Insomnia, unspecified G47.00 and Chronic pain G89.29 SP [place] [address] [facility] [facility] [id number] [address] [place] [address] SP May, SP [place] [address] [place] [id number] [address] [place] [address] SP May, SP [place] [address] [place] [id number] [address] [place] [address] SP May, SP [facility] [address] [place] [id number] [address] [place] [address] SP Apr, Insomnia, unspecified G47.00 ; Chronic pain G89.29 and SP episodic mood disorder F39 [place] [address] [place] [id number] [address] [place] [address] SP Apr, Unspecified episodic mood di sorder F39 SP [facility] [address] [place] [id number] [address] [place] [address] SP Apr, Major depression F32.9 SP [facility] [address] [facility] [address] [facility] [id number] [address] [place] [address] SP Apr, SP [facility] [address] [place] [id number] [address] [place] [address] SP Apr, Diabetes E11.9 ; Diabetic ne uropathy E11.40 ; Degenerative disc SP lumbar M51.36 ; HTN (hypertension) I10 ; Gastritis K29.70 ; Hyperlipidemia E78.5 ; Chronic pain G89.29 and Insomnia G47.00 [facility] [address] [place] [id number] [address] [place] [address] SP Mar, SP [facility] [address] [address] SP Mar, SP [facility] [address] [address] SP Mar, SP [facility] [address] [address] SP Mar, Diabetes mellitus 250.00 ; D iabetic neuropathy 250.60 ; CAD SP artery disease) 414.00 ; Degenerative disc disease, lumbar 722.52 ; Gastritis 535.50 and Insomnia 780.52 [place] [address] [place] [id number] [address] [place] [address] SP Mar, Diabetes mellitus 250.00 ; D egenerative disc disease, lumbar SP ; Essential hypertension 401.9 ; Gastritis 535.50 and Chronic pain 338.29 [facility] [address] [address] SP Feb, [facility] [address] [address] SP Feb, SP [facility] [address] [place] [id number] [address] [place] [address] SP Jan, SP [facility] [address] [address] SP Jan, Diabetes mellitus 250.00 ; D iabetic neuropathy 250.60 ; SP disc disease, lumbar 722.52 ; CAD (coronary artery disease) 414.00 ; Essential hypertension 401.9 ; Gastritis 535.50 ; Hyperlipidemia 272.4 and Distal end of ulna fracture, closed 813.43 [facility] [address] [place] [id number] [address] [place] [address] SP Dec, Wrist pain 719.43 and Diabet es mellitus 250.00 SP [facility] [address] [place] [id number] [address] [place] [address], [place] [address] SP May, SP [facility] [address] [id number] [address] [place] [address], [place] [address] SP Dec, SP [facility] [address] [id number] [address] [place] [address], [place] [address] SP November, SP [facility] [address] [id number] [address] [place] [address], [place] [address] SP 16 Oct, 2009 SP [facility] [address] [id number] [address] [place] [address], [place] [address] SP Sep, SP [facility] [address] [id number] [address] [place] [address], [place] [address] SP Sep, SP [facility] [address] [id number] [address] [place] [address], [place] [address] SP Jun, SP [facility] [address] [id number] [address] [place] [address], [place] [address] SP Jun, SP [facility] [address] [id number] [address] [place] [address], [place] [address] SP Jun, SP [facility] [address] [id number] [address] [place] [address], [place] [address] SP Jun, SP [facility] [address] [id number] [address] [place] [address], [place] [address] SP Jun, SP [facility] [address] [id number] [address] [place] [address], [place] [address] SP Jun, SP [facility] [address] [id number] [address] [place] [address], [place] [address] SP Jun, SP [facility] [place] [facility] [address] [id number] [address] [place] [address], [place] [address] SP May, SP [facility] [address] [id number] [address] [place] [address], [place] [address] SP May, SP [facility] [address] [id number] [address] [place] [address] SP May, SP [facility] [address] [id number] [address] [place] [address] SP May, SP [facility] [address] [address] [facility] [id number] [address] [place] [address] SP Apr, SP [facility] [address] [facility] [id number] [address] [place] [id number] SP Apr, SP [facility] [address] [facility] [id number] [address] [place] [phone] SP Apr, SP [facility] [address] [facility] [id number] [address] [place] [phone] SP Mar, SP [facility] [address] [address] [facility] [id number] [address] [place] [address] SP Dec, SP IMMUNIZATIONS No Known Immunizations SOCIAL HISTORY Never Assessed REASON FOR VISIT diabetes fu -- katalina haas PLAN OF CARE Activity Details POS SP Follow Up 3 Months with Ana Cramer n: SP VITAL SIGNS Height 61 in 2018-05-25 POS Weight 130.0 lbs 2018-05-25 POS Temperature 97.9 degrees Fahrenheit 2018-05-25 POS BMI 24.56 kg/m2 2018-05-25 POS Blood pressure systolic 112 mmHg 2018-05-25 POS Blood pressure diastolic 66 mmHg 2018-05-25 POS MEDICATIONS Medication Instructions Dosage Frequency Start Date End Date Duration S tatus POS NovoLog Flexpen 100 UNIT/ML Subcutaneous 3 times a day with meals inject 40 SP Active SP Lisinopril-Hydrochlorothiazide 20-12.5 MG Orally Once a day 1 table t 24h Dec, [id number] Active SP Levemir FlexTouch 100 UNIT/ML Subcutaneous 55 units bid inject Active SP Pen [place] 31G X 6 MM as directed 6h Dec, Active SP Crestor 40 mg Orally Once a day 1 tablet 24h Active SP Potassium Chloride ER 10 MEQ Orally Once a day 1 capsule with food 24h SP HydrOXYzine HCl 25 MG Orally at bedtime as needed for sleep 2 table t 14 Aug, SP Active SP Plavix 75 MG TAKE 1 TABLET EVERY DAY 28 Active SP Metoclopramide HCl 10 mg Orally every 6 hours 1 tab 6h Active SP Prazosin HCl 2 MG Orally at bedtime 1 capsule Feb, 30 day(s) Active SP Hydrocodone-Acetaminophen 10-325 MG Orally 3 times a day 1 tablet a s needed 8h SP Apr, 2018 28 days Active SP Lamictal 100 mg Orally Once a day 1 tablet 24h Feb, 30 day(s) Active SP Accu-Chek Deepika Plus - subcutaneously 4 times a day to check glucos e 6h Feb, Active SP Accu-Chek Softclix Lancets - subcutaneously 4 times a day us e to check blood SP 6h Feb, Active SP Sertraline HCl 25 MG Orally Once a day 1 tablet 24h 30 day(s) Active SP Accu-Chek Deepika Plus w/Device subcutaneously 4 times a day check reyes gars 6h 2016 Active SP Gabapentin 300 MG Orally 3 times a day 1 capsule 8h 30 days Active SP RESULTS Name Result Date Reference Range POS A1C (IN HOUSE) 2018-05-25 SP A1C IN HOUSE 14.0 4.3 - 5.6 % SP Previous A1c 14.0 SP Lot [id number] SP Exp date 09/2019 SP PROCEDURES Procedure Date Ordered Result Body Site POS GLYCATED HEMOGLOBIN TEST May 25, 2018 SP INSTRUCTIONS MEDICATIONS ADMINISTERED No Known Medications MEDICAL [...]
--- OUTSIDE RECORDS SUMMARY | 2019-06-14 01:31 | XMS REPORT ---
Author Author JALEN PEREZ POS Organization [facility] SP Address [address] [place] [address] SP Care Team Providers Care [employer] Leader Name Role Phone POS ANA JALEN Unavailable SP PROBLEMS Type Condition ICD9-CM Code [id number] Code Onset Dates Condition S tatus SNOMED POS Problem Type 2 diabetes mellitus with hyperglycemia E11.65 Active POS Problem Major depressive disorder, recurrent episode, moderate F33.1 Active SP Problem Obsessive-compulsive disorder, unspecified type F4 2.9 Active SP Problem Ataxia R27.0 Active 90999755 SP Problem Falls frequently R29.6 Active 279 797127 SP Problem Type 2 diabetes mellitus with other diab etic neurological complication SP E11.49 Active 09000962 SP 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 Active 844963679 SP Problem History of pulmonary embolism Z86.711 Active 349437168 SP Problem Type 2 diabetes mellitus with other diabetic kid allen complication SP Active 85832465 SP Problem Insomnia G47.00 Active 164510741 SP Problem Degenerative disc disease, lumbar M51.36 Active 75893411 SP Problem HTN (hypertension) I10 Active 3 1081568 SP Problem Hyperlipidemia E78.5 Active 41453 004 SP Problem CAD (coronary artery disease) I25.10 Active 08960050 SP Problem Chronic pain G89.29 Active 4625232 1 SP Problem Post-traumatic stress disorder F43.10 Active 45067346 SP ALLERGIES Substance Reaction Event Type Date Status POS Viibryd N/V Drug Allergy Feb, Active SP Seroquel N/V and "couldn't do anything." Drug Allergy Feb, 018 Active SP Penicillin V Potassium Unknown Drug Allergy Feb, Activ e SP Lexapro N/V, inc. suicidality Drug Allergy Feb, Active SP Ibuprofen Unknown Drug Allergy Feb, Active SP Depakote inc. suicidality Drug Allergy Feb, Active SP ENCOUNTERS Encounter Location Date Diagnosis POS [facility] [address] [facility] [id number] [address] [place] [phone] SP Jun, SP [facility] [address] [facility] [id number] [place] [phone] SP May, SP [facility] [address] [facility] [id number] [place] [phone] SP May, SP [facility] [address] [place] [id number] [place] [phone] SP Apr, SP [facility] [address] [facility] [id number] [place] [phone] SP Apr, Degenerative disc disease, l umbar M51.36 ; Chronic pain G89.29 ; SP frequently R29.6 ; Type 2 diabetes mellitus with hyperglycemia E11.65 and Type 2 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 E11.49 [facility] [address] [place] [id number] [place] [phone] SP Apr, SP [facility] [address] [place] [id number] [address] [place] [phone] SP Apr, Major depressive disorder, r ecurrent episode, moderate F33.1 and SPtraumatic stress disorder F43.10 [facility] [address] [place] [id number] [address] [place] [phone] SP Apr, SP [facility] [address] [place] [id number] [address] [place] [phone] SP Apr, Post-traumatic stress disord er F43.10 ; Diabetes E11.9 ; SP E78.5 ; Major depressive disorder, recurrent episode, moderate F33.1 ; Other irritable bowel syndrome K58.8 and Chronic pain G89.29 [facility] [address] [facility] [id number] [address] [place] [address] SP Mar, Chronic pain G89.29 SP [facility] [address] [place] [id number] [address] [place] [phone] SP Feb, Type 2 diabetes mellitus wit h other diabetic neurological SP E11.49 ; 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.29 ; Degenerative disc disease, lumbar M51.36 and Chronic pain G89.29 [facility] [address] [id number] [address] [place] [address] SP Jan, SP [facility] [address] [id number] [address] [place] [phone] SP Jan, SP [facility] [address] [id number] [address] [place] [phone] SP Jan, SP [facility] [address] [facility] [id number] [address] [place] [phone] SP Jan, SP [facility] [address] [facility] [id number] [address] [place] [phone] SP Jan, SP [facility] [address] [facility] [id number] [address] [place] [phone] SP Jan, SP [facility] [address] [facility] [id number] [address] [place] [address] SP Jan, Slurred speech R47.81 ; Atax ia R27.0 ; Left arm weakness R29.898 SP Type 2 diabetes mellitus with hyperglycemia E11.65 and Type 2 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 E11.49 [facility] [address] [facility] [id number] [address] [place] [address] SP Jan, SP [facility] [address] [id number] [address] [place] [phone] SP Jan, Type 2 diabetes mellitus wit h hyperglycemia E11.65 and SP vomiting with nausea, unspecified vomiting type R11.2 [facility] [address] [facility] [id number] [address] [place] [phone] SP Dec, CAD (coronary artery disease ) I25.10 and Atypical chest pain SP [facility] [address] [facility] [id number] [address] [place] [phone] SP Dec, SP [facility] [address] [facility] [id number] [address] [place] [phone] SP Dec, Diabetes E11.9 ; Type 2 diab etes mellitus with hyperglycemia SP and Intractable vomiting with nausea, unspecified vomiting type R11.2 [facility] [address] [facility] [id number] [address] [place] [phone] SP Dec, Chronic pain G89.29 SP [facility] [address] [facility] [id number] [address] [place] [address] SP November, SP [place] [address] [facility] [id number] [address] [place] [phone] SP November, Diabetes E11.9 ; CAD ([place]in[place] ry artery disease) I25.10 ; Atypical SP pain R07.89 ; Type 2 diabetes mellitus with hyperglycemia E11.65 ; 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.29 ; 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 and Chronic pain G89.29 [facility] [address] [facility] [id number] [address] [place] [phone] SP Oct, SP [facility] [address] [facility] [id number] [address] [place] [phone] SP Oct, Chronic pain G89.29 SP [place] [address] [facility] [id number] [address] [place] [phone] SP Sep, Diabetes E11.9 SP [facility] [address] [facility] [id number] [address] [place] [phone] SP Sep, Chronic pain G89.29 SP [facility] [address] [facility] [id number] [address] [place] [phone] SP Sep, SP [facility] [address] [facility] [id number] [address] [place] [phone] SP Sep, Falls frequently R29.6 ; Elier g term 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.4 SP Type 2 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 E11.49 [place] [address] [facility] [id number] [address] [place] [address] SP Sep, SP [facility] [address] [facility] [id number] [address] [place] [phone] SP Sep, Diabetes E11.9 SP [facility] [address] [facility] [id number] [address] [place] [address] SP Aug, SP [facility] [address] [facility] [id number] [address] [place] [address] SP Aug, Chronic pain G89.29 SP [facility] [address] [facility] [id number] [address] [place] [phone] SP Aug, SP [facility] [address] [facility] [id number] [address] [place] [address] SP Aug, Chronic pain G89.29 SP [facility] [address] [facility] [id number] [address] [place] [phone] SP Jul, SP [facility] [address] [facility] [id number] [address] [place] [phone] SP Jul, Diabetes E11.9 and Type 2 di abetes mellitus with other diabetic SP complication E11.29 [facility] [address] [facility] [id number] [address] [place] [phone] SP Jul, Type 2 diabetes mellitus wit h other diabetic kidney complication SP [facility] [address] [facility] [id number] [address] [place] [phone] SP Jul, SP [facility] [address] [facility] [id number] [address] [place] [address] SP Jul, Chronic pain G89.29 SP [facility] [address] [facility] [id number] [address] [place] [phone] SP Jun, Diabetes E11.9 SP [facility] [address] [facility] [id number] [address] [place] [phone] SP Jun, Chronic pain G89.29 SP [facility] [address] [facility] [id number] [address] [place] [address] SP Jun, Diabetes E11.9 ; Atypical ch est pain R07.89 ; senior living current SP of insulin Z79.4 ; 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.29 ; Type 2 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 E11.49 ; History of pulmonary embolism Z86.711 and History of CVA (cerebrovascular accident) Z86.73 [facility] [address] [facility] [id number] [address] [place] [address] SP May, SP [facility] [address] [facility] [id number] [address] [place] [address] SP May, Chronic pain G89.29 SP [facility] [address] [facility] [id number] [address] [place] [address] SP Apr, Chronic pain G89.29 SP [facility] [address] [facility] [id number] [address] [place] [phone] SP Apr, SP [facility] [address] [facility] [id number] [address] [place] [address] SP Mar, Chronic pain G89.29 SP [facility] [address] [facility] [id number] [address] [place] [phone] SP Mar, Diabetes E11.9 SP [facility] [address] [facility] [id number] [address] [place] [phone] SP Mar, SP [facility] [address] [facility] [id number] [address] [place] [address] SP Mar, Degenerative disc disease, l umbar M51.36 SP [facility] [address] [facility] [id number] [address] [place] [phone] SP Feb, Diabetes E11.9 SP [facility] [address] [facility] [id number] [address] [place] [phone] SP Feb, Diabetes E11.9 SP [facility] [address] [id number] [address] [place] [phone] SP 16 Feb, 2017 Diabetes E11.9 ; HTN (hypert ension) I10 ; Diabetic neuropathy SP and Leg cramps R25.2 [facility] [address] [id number] [address] [place] [phone] SP 15 Feb, 2017 Sprain of calcaneofibular li gament of right ankle, subsequent SP S93.411D ; Major depressive disorder, recurrent episode, moderate F33.1 ; Diabetes E11.9 ; Hyperlipidemia E78.5 ; Post-traumatic stress disorder F43.10 and Other irritable bowel syndrome K58.8 [facility] [address] [id number] [address] [place] [phone] SP 14 Feb, 2017 Major depressive disorder, r ecurrent episode, moderate F33.1 ; SPtraumatic stress disorder F43.10 and Obsessive-compulsive disorder, unspecified type F42.9 [facility] [address] [id number] [address] [place] [phone] SP Feb, SP [facility] [address] [id number] [address] [place] [phone] SP Feb, Post-traumatic stress disord er F43.10 and Major depressive SP recurrent, moderate F33.1 [facility] [address] [id number] [address] [place] [phone] SP Feb, Diabetes E11.9 SP [facility] [address] [id number] [address] [place] [phone] SP Feb, Degenerative disc disease, l umbar M51.36 SP [facility] [address] [id number] [address] [place] [phone] SP Feb, Post-traumatic stress disord er F43.10 and Major depressive SP recurrent, moderate F33.1 [facility] [address] [id number] [address] [place] [phone] SP Feb, SP [facility] [address] [facility] [id number] [address] [place] [phone] SP Feb, Diabetes E11.9 SP [facility] [address] [id number] [address] [place] [phone] SP Jan, Diabetes E11.9 SP [facility] [address] [id number] [address] [place] [phone] SP Jan, Post-traumatic stress disord er F43.10 and Major depressive SP recurrent, moderate F33.1 [facility] [address] [id number] [address] [place] [phone] SP Jan, Diabetes E11.9 SP [facility] [address] [id number] [address] [place] [phone] SP Jan, Diabetes E11.9 SP [facility] [address] [id number] [address] [place] [phone] SP Jan, SP [facility] [address] [id number] [address] [place] [phone] SP Jan, SP [facility] [address] [id number] [address] [place] [phone] SP Jan, Post-traumatic stress disord er F43.10 and Major depressive SP recurrent, moderate F33.1 [facility] [address] [id number] [address] [place] [phone] SP Jan, SP [facility] [address] [id number] [address] [place] [phone] SP Jan, Major depressive disorder, r ecurrent episode, moderate F33.1 ; SPtraumatic stress disorder F43.10 and Obsessive-compulsive disorder, unspecified type F42.9 [facility] [address] [id number] [address] [place] [phone] SP Jan, SP [facility] [address] [id number] [address] [place] [phone] SP Jan, Diabetes E11.9 SP [facility] [address] [id number] [address] [place] [phone] SP Jan, SP [facility] [address] [id number] [address] [place] [address] SP Jan, Sprain of calcaneofibular li gament of right ankle, subsequent SP S93.411D [facility] [address] [facility] [id number] [address] [place] [address] SP Jan, Post-traumatic stress disord er F43.10 and Major depressive SP recurrent, moderate F33.1 [facility] [address] [id number] [address] [place] [phone] SP Jan, Diabetes E11.9 SP [facility] [address] [facility] [id number] [address] [place] [address] SP 16 Dec, 2016 Major depressive disorder, r ecurrent episode, moderate F33.1 ; SPtraumatic stress disorder F43.10 and Obsessive-compulsive disorder, unspecified type F42.9 [facility] [address] [id number] [address] [place] [phone] SP 15 Dec, 2016 SP [facility] [address] [id number] [address] [place] [phone] SP 14 Dec, 2016 Sprain of calcaneofibular li gament of right ankle, subsequent SP S93.411D [facility] [address] [id number] [address] [place] [address] SP Dec, Post-traumatic stress disord er F43.10 and Major depressive SP recurrent, moderate F33.1 [facility] [address] [id number] [address] [place] [address] SP Dec, Sprain of calcaneofibular li gament of right ankle, subsequent SP S93.411D [facility] [address] [facility] [id number] [address] [place] [address] SP Dec, Hyperlipidemia E78.5 SP [facility] [address] [facility] [id number] [address] [place] [address] SP Dec, [place] [address] [phone] SP Dec, Diabetes E11.9 ; Diabetic ne uropathy E11.40 ; Degenerative disc SP lumbar M51.36 ; Hyperlipidemia E78.5 ; Insomnia G47.00 ; CAD (coronary artery disease) I25.10 ; Major depressive disorder, recurrent, moderate F33.1 ; Post- traumatic stress disorder F43.10 and Other irritable bowel syndrome K58.8 [place] [address] [address] SP November, Diabetic neuropathy E11.40 a nd Hyperlipidemia E78.5 [place] [address] [address] SP November, Degenerative disc disease, l umbar M51.36 [place] [address] [address] SP Oct, [place] [address] [address] SP Oct, Degenerative disc disease, l umbar M51.36 [place] [address] [address] SP Sep, Degenerative disc disease, l umbar M51.36 and HTN (hypertension) [place] [address] [address] SP Sep, Diabetic neuropathy E11.40 ; HTN (hypertension) I10 ; SP disc disease, lumbar M51.36 ; Hyperlipidemia E78.5 ; Insomnia G47.00 ; CAD (coronary artery disease) I25.10 and Diabetes E11.9 [place] [address] [address] SP Aug, [place] [address] [address] SP Aug, Type 2 diabetes mellitus wit h hyperglycemia E11.65 [place] [address] [id number] [address] [place] [address] SP Aug, SP [facility] [address] [facility] [id number] [address] [place] [address] SP Jul, SP [facility] [address] [facility] [id number] [address] [place] [address] SP Jul, SP [facility] [address] [facility] [id number] [address] [place] [address] SP Jun, SP [facility] [address] [facility] [id number] [address] [place] [address] SP Jun, SP [facility] [address] [facility] [id number] [address] [place] [address] SP Jun, SP [facility] [address] [facility] [id number] [address] [place] [address] SP Jun, SP [facility] [address] [facility] [id number] [address] [place] [address] SP May, Major depressive disorder, r ecurrent episode, moderate F33.1 and SPtraumatic stress disorder F43.10 [place] [id number] [place] [address] SP May, Major depressive disorder, r ecurrent episode, moderate F33.1 and SPtraumatic stress disorder F43.10 [facility] [address] [facility] [id number] [address] [place] [address] SP May, Diabetes E11.9 ; Diabetic ne uropathy E11.40 ; HTN (hypertension) SP ; Gastritis K29.70 ; Hyperlipidemia E78.5 ; Insomnia G47.00 and Major depressive disorder, recurrent, moderate F33.1 [facility] [address] [facility] [id number] [address] [place] [address] SP May, Major depressive disorder, r ecurrent episode, moderate F33.1 SP [facility] [address] [facility] [id number] [address] [place] [address] SP Apr, SP [place] [address] [place] [id number] [address] [place] [address] SP Apr, Major depressive disorder, r ecurrent episode, moderate F33.1 and SPtraumatic stress disorder F43.10 [place] [address] [place] [id number] [address] [place] [address] SP Apr, Diabetes E11.9 ; Diabetic ne uropathy E11.40 ; Degenerative disc SP lumbar M51.36 ; HTN (hypertension) I10 ; Hyperlipidemia E78.5 ; Chronic pain G89.29 ; CAD (coronary artery disease) I25.10 and Major depressive disorder, recurrent, moderate F33.1 [place] [address] [place] [id number] [address] [place] [address] SP Apr, Major depressive disorder, r ecurrent episode, moderate F33.1 and SPtraumatic stress disorder F43.10 [place] [address] [address] [place] [id number] [address] [place] [address] SP Apr, Major depressive disorder, r ecurrent episode, moderate F33.1 and SPtraumatic stress disorder F43.10 [place] [address] [place] [address] SP Apr, Major depressive disorder, r ecurrent episode, moderate F33.1 and SP episodic mood disorder F39 [place] [address] [place] [address] SP Apr, Chronic pain G89.29 ; Diabet ic neuropathy E11.40 ; HTN SP I10 ; Insomnia G47.00 ; CAD (coronary artery disease) I25.10 ; Hyperlipidemia E78.5 ; Degenerative disc disease, lumbar M51.36 ; Diabetes E11.9 and Gastritis K29.70 [place] [address] [place] [id number] [address] [place] [id number] SP Sep, SP [place] [address] [address] [place] [id number] [address] [place] [id number] SP Aug, SP [facility] [address] [id number] SP Jul, Major depressive disorder, r ecurrent episode, moderate F33.1 SP [facility] [address] [facility] [id number] [address] [place] [id number] SP Jul, Unspecified episodic mood di sorder F39 SP [facility] [address] [id number] SP Jul, SP [place] [address] [id number] SP Jul, SP [place] [address] [id number] SP Jul, [place] [address] [address] SP Jul, Type 2 diabetes mellitus wit h hyperglycemia E11.65 ; Diabetic SP E11.40 ; Degenerative disc disease, lumbar M51.36 ; HTN (hypertension) I10 ; Gastritis K29.70 ; Hyperlipidemia E78.5 and CAD (coronary artery disease) I25.10 [place] [address] [id number] SP Jul, Severe episode of recurrent major depressive disorder, without SP features F33.2 [place] [address] [id number] SP Jul, SP [place] [address] [address] [place] [id number] [address] [place] [id number] SP Jun, [place] [address] [id number] SP Jun, Diabetes E11.9 ; Diabetic ne uropathy E11.40 ; Degenerative disc SP lumbar M51.36 ; HTN (hypertension) I10 ; Gastritis K29.70 ; Hyperlipidemia E78.5 ; Unspecified episodic mood disorder F39 ; Depression F32.9 and CAD (coronary artery disease) I25.10 [facility] [address] [facility] [id number] [address] [place] [phone] SP Jun, SP [facility] [address] [place] [id number] [place] [phone] SP Jun, SP [facility] [address] [id number] [place] [id number] SP Jun, Diabetes E11.9 ; Diabetic ne uropathy E11.40 ; Degenerative disc SP lumbar M51.36 ; HTN (hypertension) I10 ; Gastritis K29.70 ; Chronic pain G89.29 ; Insomnia G47.00 and Unspecified episodic mood disorder F39 [facility] [address] [facility] [id number] [place] [id number] SP May, Diabetic neuropathy E11.40 ; Degenerative disc disease, lumbar SP ; HTN (hypertension) I10 ; Gastritis K29.70 ; Hyperlipidemia E78.5 ; Chronic pain G89.29 ; Insomnia G47.00 ; Unspecified episodic mood disorder F39 ; Diabetes E11.9 ; CAD (coronary artery disease) I25.10 and H/O Gram positive sepsis Z86.19 [place] [address] [place] [id number] [address] [place] [phone] SP May, SP [facility] [address] [place] [place] [id number] [address] [place] [phone] SP May, SP [facility] [address] [place] [id number] [address] [place] [phone] SP May, SP [facility] [address] [facility] [id number] [address] [place] [id number] SP May, SP [facility] [address] [place] [id number] [address] [place] [phone] SP May, UTI (urinary tract infection ) N39.0 ; Diabetes E11.9 ; Diabetic SP E11.40 ; Hyperlipidemia E78.5 and Chronic pain G89.29 [facility] [address] [place] [id number] [address] [place] [phone] SP May, Insomnia, unspecified G47.00 and Chronic pain G89.29 SP [facility] [address] [facility] [id number] [address] [place] [phone] SP May, SP [facility] [address] [facility] [id number] [address] [place] [phone] SP May, SP [facility] [address] [facility] [id number] [address] [place] [phone] SP May, SP [facility] [address] [facility] [id number] [address] [place] [phone] SP Apr, Insomnia, unspecified G47.00 ; Chronic pain G89.29 and SP episodic mood disorder F39 [facility] [address] [facility] [id number] [address] [place] [phone] SP Apr, Unspecified episodic mood di sorder F39 SP [facility] [address] [facility] [id number] [address] [place] [phone] SP Apr, Major depression F32.9 SP [facility] [address] [facility] [id number] [address] [place] [phone] SP Apr, SP [facility] [address] [facility] [id number] [address] [place] [phone] SP Apr, Diabetes E11.9 ; Diabetic ne uropathy E11.40 ; Degenerative disc SP lumbar M51.36 ; HTN (hypertension) I10 ; Gastritis K29.70 ; Hyperlipidemia E78.5 ; Chronic pain G89.29 and Insomnia G47.00 [facility] [address] [facility] [id number] [address] [place] [phone] SP Mar, SP [facility] [address] [facility] [id number] [address] [place] [phone] SP Mar, SP [facility] [address] [facility] [id number] [address] [place] [phone] SP Mar, SP [facility] [address] [phone] SP Mar, Diabetes mellitus 250.00 ; D iabetic neuropathy 250.60 ; CAD SP artery disease) 414.00 ; Degenerative disc disease, lumbar 722.52 ; Gastritis 535.50 and Insomnia 780.52 [facility] [address] [id number] SP Mar, Diabetes mellitus 250.00 ; D egenerative disc disease, lumbar SP ; Essential hypertension 401.9 ; Gastritis 535.50 and Chronic pain 338.29 [facility] [address] [phone] SP Feb, SP [facility] [address] [phone] SP Feb, SP [facility] [address] [phone] SP Jan, SP [facility] [address] [id number] SP Jan, Diabetes mellitus 250.00 ; D iabetic neuropathy 250.60 ; SP disc disease, lumbar 722.52 ; CAD (coronary artery disease) 414.00 ; Essential hypertension 401.9 ; Gastritis 535.50 ; Hyperlipidemia 272.4 and Distal end of ulna fracture, closed 813.43 [facility] [address] [phone] SP Dec, Wrist pain 719.43 and Diabet es mellitus 250.00 SP [facility] [address] [phone] SP May, SP [facility] [address] [phone] SP Dec, [facility] [address] [address] [id number] [place] [phone] SP November, SP [facility] [address] [phone] SP 16 Oct, 2009 SP [facility] [address] [id number] [address] [place] [address], [place] [address] SP 17 Sep, 2009 SP [facility] [address] [id number] [address] [place] [phone] SP 11 Sep, 2009 SP [facility] [address] [id number] [address] [place] [address], [place] [phone] SP Jun, SP [facility] [address] [id number] [address] [place] [address], [place] [address] SP Jun, SP [facility] [address] [id number] [address] [place] [address], [place] [address] SP Jun, SP [facility] [address] [id number] [address] [place] [address], [place] [phone] SP Jun, SP [facility] [address] [id number] [address] [place] [phone] SP Jun, SP [facility] [address] [id number] [address] [place] [address], [place] [address] SP Jun, SP [facility] [address] [id number] [address] [place] [address], [place] [phone] SP Jun, SP [facility] [address] [id number] [address] [place] [address], [place] [phone] SP May, SP [facility] [address] [id number] [address] [place] [phone] SP May, SP [facility] [address] [id number] [address] [place] [address], [place] [phone] SP May, SP [facility] [address] [id number] [address] [place] [phone] SP May, SP [facility] [address] [id number] [address] [place] [address], [place] [address] SP Apr, SP [facility] [address] [id number] [address] [address] SP Apr, SP [facility] [address] [facility] [id number] [address] [place] [phone] SP Apr, SP [facility] [address] [facility] [id number] [address] [place] [phone] SP Mar, SP [facility] [address] [facility] [id number] [address] [place] [phone] SP Dec, SP IMMUNIZATIONS No Known Immunizations SOCIAL HISTORY Never Assessed REASON FOR VISIT Hospital f/u -- katalina haas PLAN OF CARE Activity Details POS SP Follow Up 4 Weeks with Ana RANDOLPH Reason : SP VITAL SIGNS Height 61 in 2018-02-25 POS Weight 131.0 lbs 2018-02-25 POS Temperature 97.3 degrees Fahrenheit 2018-02-25 POS Heart Rate 80 bpm 2018-02-25 POS Respiratory Rate 20 2018-02-25 POS BMI 24.75 kg/m2 2018-02-25 POS Blood pressure systolic 116 mmHg 2018-02-25 POS Blood pressure diastolic 70 mmHg 2018-02-25 POS MEDICATIONS Medication Instructions Dosage Frequency Start Date End Date Duration S tatus POS Accu-Chek Deepika Plus - subcutaneously 4 times a day to check glucos e 6h Feb, Active SP Lisinopril-Hydrochlorothiazide 20-25 MG Orally Once a day 1 tablet 24h 07 Dec, Active SP Plavix 75 MG TAKE 1 TABLET EVERY DAY 28 Active SP Metoclopramide HCl 10 mg Orally every 6 hours 1 tab 6h 90 days Active SP Hydrocodone-Acetaminophen 10-325 MG Orally 2 times a day 1 tablet a s needed 12h SP Feb, 2018 Mar, 28 days Active SP Accu-Chek Softclix Lancets - subcutaneously 4 times a day us e to check blood SP 6h Feb, Active SP Levemir FlexTouch 100 UNIT/ML Subcutaneous 55 units bid inject Active SP Crestor 40 mg Orally Once a day 1 tablet 24h Active SP Janumet 50-500 MG Orally Twice a day 1 tablet with meals 12h Aug, 30 SP Not-Taking SP Zofran 8 MG Orally q6 hr PRN 1 tablet Dec, 30 da y(s) Active SP NovoLog Flexpen 100 UNIT/ML Subcutaneous 3 times a day with meals inject 40 SP Active SP Actos 15 mg Orally Once a day 1 tablet 24h Sep, 30 d ay(s) Active SP Metformin HCl 500 mg DX- E11.65 at supper 2 tablets Aug, 30 day(s) SP HydrOXYzine HCl 50 mg Orally at bedtime as needed for sleep 1 table Feb, 30 days Active SP Gabapentin 300 MG Orally 3 times a day 1 capsule 8h 30 days Active SP Accu-Chek Deepika Plus w/Device subcutaneously 4 times a day check reyes gars 6h 23 2016 Active SP Pen [place] 31G X 6 MM as directed 6h Dec, Active SP Aspir-81 81 MG Orally Once a day 1 tablet 24h Not-Taking SP Prazosin HCl 2 MG Orally at bedtime 1 capsule Feb, 30 day(s) Active SP Lamictal 100 mg Orally Once a day 1 tablet 24h Feb, 30 day(s) Active SP Promethazine HCl 25 MG Orally every 6 hours prn 1 tablet as needed Dec, Active SP RESULTS No Results PROCEDURES No [...]
--- OUTSIDE RECORDS SUMMARY | 2019-06-14 01:31 | XMS REPORT ---
Author Author RAFAELA ARECHIGA POS Organization [facility] SP Address [address] [place] [address] SP Care Team Providers Care Program Arranger Name Role Phone POS RAFAELA ARECHIGA Unavailable SP PROBLEMS Type Condition ICD9-CM Code [id number] Code Onset Dates Condition S tatus SNOMED POS Problem Type 2 diabetes mellitus with hyperglycemia E11.65 Active POS Problem Major depressive disorder, recurrent episode, moderate F33.1 Active SP Problem Obsessive-compulsive disorder, unspecified type F4 2.9 Active SP Problem Ataxia R27.0 Active [id number] SP Problem Falls frequently R29.6 Active [id number] SP Problem Type 2 diabetes mellitus with other diab etic neurological complication SP E11.49 Active 62557497 SP Problem skilled nursing 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.4 Active 006112427 SP Problem History of pulmonary embolism Z86.711 Active 372763956 SP Problem Type 2 diabetes mellitus with other diabetic kid allen complication SP Active 85553067 SP Problem Insomnia G47.00 Active 327155572 SP Problem Degenerative disc disease, lumbar M51.36 Active 47566612 SP Problem HTN (hypertension) I10 Active 3 5825566 SP Problem Hyperlipidemia E78.5 Active 64758 004 SP Problem CAD (coronary artery disease) I25.10 Active 83369291 SP Problem Chronic pain G89.29 Active 8436685 1 SP Problem Post-traumatic stress disorder F43.10 Active 98278211 SP ALLERGIES No Information ENCOUNTERS Encounter Location Date Diagnosis POS [facility] [address] [facility] [id number] [address] [place] [phone] SP Jun, SP [facility] [address] [facility] [id number] [address] [place] [phone] SP May, SP [facility] [address] [facility] [id number] [address] [place] [phone] SP May, SP [facility] [address] [facility] [id number] [address] [place] [phone] SP Apr, SP [facility] [address] [facility] [id number] [address] [place] [address] SP Apr, Degenerative disc disease, l umbar M51.36 ; Chronic pain G89.29 ; SP frequently R29.6 ; Type 2 diabetes mellitus with hyperglycemia E11.65 and Type 2 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 E11.49 [facility] [address] [facility] [id number] [address] [place] [phone] SP Apr, SP [facility] [address] [facility] [id number] [address] [place] [address] SP Apr, Major depressive disorder, r ecurrent episode, moderate F33.1 and SPtraumatic stress disorder F43.10 [facility] [address] [facility] [id number] [address] [place] [phone] SP Apr, SP [facility] [address] [facility] [id number] [address] [place] [phone] SP Apr, Post-traumatic stress disord er F43.10 ; Diabetes E11.9 ; SP E78.5 ; Major depressive disorder, recurrent episode, moderate F33.1 ; Other irritable bowel syndrome K58.8 and Chronic pain G89.29 [facility] [address] [facility] [id number] [address] [place] [phone] SP Mar, Chronic pain G89.29 SP [facility] [address] [facility] [id number] [address] [place] [phone] SP Feb, Type 2 diabetes mellitus wit h other diabetic neurological SP E11.49 ; 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.29 ; Degenerative disc disease, lumbar M51.36 and Chronic pain G89.29 [facility] [address] [facility] [id number] [address] [place] [phone] SP Jan, SP [facility] [address] [facility] [id number] [address] [place] [phone] SP Jan, SP [facility] [address] [facility] [id number] [address] [place] [phone] SP Jan, SP [facility] [address] [facility] [id number] [address] [place] [phone] SP Jan, SP [facility] [address] [facility] [id number] [address] [place] [phone] SP Jan, SP [facility] [address] [facility] [id number] [address] [place] [phone] SP Jan, SP [facility] [address] [facility] [id number] [place] [phone] SP Jan, Slurred speech R47.81 ; Atax ia R27.0 ; Left arm weakness R29.898 SP Type 2 diabetes mellitus with hyperglycemia E11.65 and Type 2 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 E11.49 [facility] [address] [facility] [id number] [address] [place] [phone] SP Jan, SP [facility] [address] [facility] [id number] [address] [place] [phone] SP Jan, Type 2 diabetes mellitus wit h hyperglycemia E11.65 and SP vomiting with nausea, unspecified vomiting type R11.2 [facility] [address] [facility] [id number] [address] [place] [phone] SP Dec, CAD (coronary artery disease ) I25.10 and Atypical chest pain SP [facility] [address] [facility] [id number] [address] [place] [phone] SP Dec, SP [facility] [address] [facility] [id number] [address] [place] [phone] SP Dec, Diabetes E11.9 ; Type 2 diab etes mellitus with hyperglycemia SP and Intractable vomiting with nausea, unspecified vomiting type R11.2 [facility] [address] [facility] [id number] [address] [place] [phone] SP Dec, Chronic pain G89.29 SP [facility] [address] [facility] [id number] [address] [place] [phone] SP November, SP [facility] [address] [facility] [id number] [address] [place] [id number] SP November, Diabetes E11.9 ; CAD (trinidad ry artery disease) I25.10 ; Atypical SP pain R07.89 ; Type 2 diabetes mellitus with hyperglycemia E11.65 ; 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.29 ; skilled nursing 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.4 and Chronic pain G89.29 [facility] [address] [facility] [id number] [address] [place] [address] SP Oct, SP [facility] [address] [facility] [id number] [address] [place] [address] SP Oct, Chronic pain G89.29 SP [facility] [address] [facility] [id number] [address] [place] [phone] SP Sep, Diabetes E11.9 SP [facility] [address] [facility] [id number] [address] [place] [phone] SP Sep, Chronic pain G89.29 SP [facility] [address] [facility] [id number] [address] [place] [phone] SP Sep, SP [facility] [address] [facility] [id number] [address] [place] [phone] SP Sep, Falls frequently R29.6 ; Elier g term 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.4 SP Type 2 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 E11.49 [facility] [address] [facility] [id number] [address] [place] [phone] SP Sep, SP [facility] [address] [facility] [id number] [address] [place] [phone] SP Sep, Diabetes E11.9 SP [facility] [address] [facility] [id number] [address] [place] [phone] SP Aug, SP [facility] [address] [facility] [id number] [address] [place] [phone] SP Aug, Chronic pain G89.29 SP [facility] [address] [facility] [id number] [address] [place] [phone] SP Aug, SP [facility] [address] [facility] [id number] [address] [place] [phone] SP Aug, Chronic pain G89.29 SP [facility] [address] [facility] [id number] [address] [place] [phone] SP Jul, SP [facility] [address] [facility] [id number] [address] [place] [phone] SP Jul, Diabetes E11.9 and Type 2 di abetes mellitus with other diabetic SP complication E11.29 [facility] [address] [facility] [id number] [address] [place] [phone] SP Jul, Type 2 diabetes mellitus wit h other diabetic kidney complication SP [facility] [address] [facility] [id number] [address] [place] [phone] SP Jul, SP [facility] [address] [facility] [id number] [address] [place] [phone] SP Jul, Chronic pain G89.29 SP [facility] [address] [facility] [id number] [address] [place] [phone] SP Jun, Diabetes E11.9 SP [facility] [address] [facility] [id number] [address] [place] [phone] SP Jun, Chronic pain G89.29 SP [facility] [address] [facility] [id number] [address] [place] [phone] SP Jun, Diabetes E11.9 ; Atypical ch est pain R07.89 ; skilled nursing current SP of insulin Z79.4 ; 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.29 ; Type 2 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 E11.49 ; History of pulmonary embolism Z86.711 and History of CVA (cerebrovascular accident) Z86.73 [facility] [address] [id number] [address] [place] [phone] SP May, SP [facility] [address] [facility] [id number] [address] [place] [phone] SP May, Chronic pain G89.29 SP [facility] [address] [facility] [id number] [address] [place] [address] SP Apr, Chronic pain G89.29 SP [facility] [address] [facility] [id number] [address] [place] [phone] SP Apr, SP [facility] [address] [facility] [id number] [address] [place] [phone] SP Mar, Chronic pain G89.29 SP [facility] [address] [facility] [id number] [address] [place] [phone] SP Mar, Diabetes E11.9 SP [facility] [address] [facility] [id number] [address] [place] [phone] SP Mar, SP [facility] [address] [facility] [id number] [address] [place] [phone] SP Mar, Degenerative disc disease, l umbar M51.36 SP [facility] [address] [facility] [id number] [address] [place] [phone] SP Feb, Diabetes E11.9 SP [facility] [address] [facility] [id number] [address] [place] [phone] SP Feb, Diabetes E11.9 SP [facility] [address] [facility] [id number] [address] [place] [phone] SP Feb, Diabetes E11.9 ; HTN (hypert ension) I10 ; Diabetic neuropathy SP and Leg cramps R25.2 [facility] [address] [facility] [id number] [address] [place] [phone] SP Feb, Sprain of calcaneofibular li gament of right ankle, subsequent SP S93.411D ; Major depressive disorder, recurrent episode, moderate F33.1 ; Diabetes E11.9 ; Hyperlipidemia E78.5 ; Post-traumatic stress disorder F43.10 and Other irritable bowel syndrome K58.8 [place] [id number] [facility] [id number] [address] [place] [phone] SP 14 Feb, 2017 Major depressive disorder, r ecurrent episode, moderate F33.1 ; SPtraumatic stress disorder F43.10 and Obsessive-compulsive disorder, unspecified type F42.9 [place] [address] [facility] [id number] [address] [place] [phone] SP Feb, SP [place] [address] [facility] [id number] [address] [place] [phone] SP Feb, Post-traumatic stress disord er F43.10 and Major depressive SP recurrent, moderate F33.1 [place] [address] [facility] [id number] [address] [place] [phone] SP Feb, Diabetes E11.9 SP [place] [address] [facility] [id number] [address] [place] [address] SP Feb, Degenerative disc disease, l umbar M51.36 SP [place] [address] [facility] [id number] [address] [place] [phone] SP Feb, Post-traumatic stress disord er F43.10 and Major depressive SP recurrent, moderate F33.1 [place] [address] [facility] [id number] [address] [place] [phone] SP Feb, SP [place] [address] [facility] [id number] [address] [place] [phone] SP Feb, Diabetes E11.9 SP [place] [address] [facility] [id number] [address] [place] [phone] SP Jan, Diabetes E11.9 SP [place] [address] [facility] [id number] [address] [place] [phone] SP Jan, Post-traumatic stress disord er F43.10 and Major depressive SP recurrent, moderate F33.1 [facility] [address] [id number] [address] [place] [phone] SP Jan, Diabetes E11.9 SP [facility] [address] [id number] [address] [place] [phone] SP Jan, Diabetes E11.9 SP [facility] [address] [id number] [address] [place] [phone] SP Jan, SP [facility] [address] [id number] [address] [place] [phone] SP Jan, SP [facility] [address] [id number] [address] [place] [phone] SP Jan, Post-traumatic stress disord er F43.10 and Major depressive SP recurrent, moderate F33.1 [facility] [address] [id number] [address] [place] [phone] SP Jan, SP [facility] [address] [id number] [address] [place] [phone] SP Jan, Major depressive disorder, r ecurrent episode, moderate F33.1 ; SPtraumatic stress disorder F43.10 and Obsessive-compulsive disorder, unspecified type F42.9 [facility] [address] [id number] [address] [place] [phone] SP Jan, SP [facility] [address] [id number] [address] [place] [phone] SP Jan, Diabetes E11.9 SP [facility] [address] [id number] [address] [place] [phone] SP Jan, SP [facility] [address] [facility] [id number] [address] [place] [phone] SP Jan, Sprain of calcaneofibular li gament of right ankle, subsequent SP S93.411D [facility] [address] [facility] [id number] [address] [place] [address] SP Jan, Post-traumatic stress disord er F43.10 and Major depressive SP recurrent, moderate F33.1 [facility] [address] [id number] [address] [place] [phone] SP Jan, Diabetes E11.9 SP [facility] [address] [id number] [address] [place] [phone] SP 16 Dec, 2016 Major depressive disorder, r ecurrent episode, moderate F33.1 ; SPtraumatic stress disorder F43.10 and Obsessive-compulsive disorder, unspecified type F42.9 [facility] [address] [id number] [address] [place] [phone] SP 15 Dec, 2016 SP [facility] [address] [id number] [address] [place] [phone] SP 14 Dec, 2016 Sprain of calcaneofibular li gament of right ankle, subsequent SP S93.411D [place] [address] [facility] [id number] [address] [place] [phone] SP Dec, Post-traumatic stress disord er F43.10 and Major depressive SP recurrent, moderate F33.1 [facility] [address] [id number] [address] [place] [phone] SP Dec, Sprain of calcaneofibular li gament of right ankle, subsequent SP S93.411D [place] [address] [id number] [address] [place] [address] SP Dec, Hyperlipidemia E78.5 SP [facility] [address] [id number] [address] [place] [phone] SP Dec, SP [facility] [address] [id number] [address] [place] [id number] SP Dec, Diabetes E11.9 ; Diabetic ne uropathy E11.40 ; Degenerative disc SP lumbar M51.36 ; Hyperlipidemia E78.5 ; Insomnia G47.00 ; CAD (coronary artery disease) I25.10 ; Major depressive disorder, recurrent, moderate F33.1 ; Post- traumatic stress disorder F43.10 and Other irritable bowel syndrome K58.8 [facility] [address] [place] [id number] [place] [phone] SP November, Diabetic neuropathy E11.40 a nd Hyperlipidemia E78.5 SP [place] [address] [place] [id number] [place] [address] SP November, Degenerative disc disease, l umbar M51.36 SP [place] [address] [address] SP Oct, [place] [address] [address] SP Oct, Degenerative disc disease, l umbar M51.36 SP [place] [address] [address] SP Sep, Degenerative disc disease, l umbar M51.36 and HTN (hypertension) SP [place] [address] [address] SP Sep, Diabetic neuropathy E11.40 ; HTN (hypertension) I10 ; SP disc disease, lumbar M51.36 ; Hyperlipidemia E78.5 ; Insomnia G47.00 ; CAD (coronary artery disease) I25.10 and Diabetes E11.9 [place] [address] [address] SP Aug, [place] [address] [address] SP Aug, Type 2 diabetes mellitus wit h hyperglycemia E11.65 SP [place] [address] [place] [id number] [place] [address] SP Aug, [place] [address] [place] [id number] [place] [address] SP Jul, [place] [address] [address] SP Jul, [place] [address] [facility] [id number] [address] [place] [address] SP Jun, SP [facility] [address] [facility] [id number] [address] [place] [phone] SP Jun, SP [facility] [address] [facility] [id number] [address] [place] [phone] SP Jun, SP [facility] [address] [facility] [id number] [address] [place] [phone] SP Jun, SP [facility] [address] [facility] [id number] [address] [place] [address] SP May, Major depressive disorder, r ecurrent episode, moderate F33.1 and SPtraumatic stress disorder F43.10 [place] [address] [facility] [id number] [address] [place] [address] SP May, Major depressive disorder, r ecurrent episode, moderate F33.1 and SPtraumatic stress disorder F43.10 [place] [address] [facility] [id number] [address] [place] [address] SP May, Diabetes E11.9 ; Diabetic ne uropathy E11.40 ; HTN (hypertension) SP ; Gastritis K29.70 ; Hyperlipidemia E78.5 ; Insomnia G47.00 and Major depressive disorder, recurrent, moderate F33.1 [facility] [address] [facility] [id number] [address] [place] [phone] SP May, Major depressive disorder, r ecurrent episode, moderate F33.1 SP [facility] [address] [facility] [id number] [address] [place] [address] SP Apr, SP [facility] [address] [facility] [id number] [address] [place] [phone] SP Apr, Major depressive disorder, r ecurrent episode, moderate F33.1 and SPtraumatic stress disorder F43.10 [facility] [address] [facility] [id number] [address] [place] [phone] SP Apr, Diabetes E11.9 ; Diabetic ne uropathy E11.40 ; Degenerative disc SP lumbar M51.36 ; HTN (hypertension) I10 ; Hyperlipidemia E78.5 ; Chronic pain G89.29 ; CAD (coronary artery disease) I25.10 and Major depressive disorder, recurrent, moderate F33.1 [place] [address] [facility] [id number] [address] [place] [address] SP Apr, Major depressive disorder, r ecurrent episode, moderate F33.1 and SPtraumatic stress disorder F43.10 [place] [address] [facility] [id number] [place] [phone] SP Apr, Major depressive disorder, r ecurrent episode, moderate F33.1 and SPtraumatic stress disorder F43.10 [place] [address] [place] [id number] [place] [address] SP Apr, Major depressive disorder, r ecurrent episode, moderate F33.1 and SP episodic mood disorder F39 [place] [address] [address] SP Apr, Chronic pain G89.29 ; Diabet ic neuropathy E11.40 ; HTN SP I10 ; Insomnia G47.00 ; CAD (coronary artery disease) I25.10 ; Hyperlipidemia E78.5 ; Degenerative disc disease, lumbar M51.36 ; Diabetes E11.9 and Gastritis K29.70 [place] [id number] [place] [address] SP Sep, SP [place] [address] [place] [id number] [address] [place] [phone] SP Aug, SP [place] [address] [phone] SP Jul, Major depressive disorder, r ecurrent episode, moderate F33.1 SP [place] [address] [facility] [id number] [address] [place] [address] SP Jul, Unspecified episodic mood di sorder F39 SP [place] [address] [facility] [id number] [address] [place] [address] SP Jul, SP [facility] [address] [facility] [id number] [place] [address] SP Jul, SP [facility] [address] [facility] [id number] [address] [place] [phone] SP Jul, SP [facility] [address] [place] [id number] [place] [id number] SP Jul, Type 2 diabetes mellitus wit h hyperglycemia E11.65 ; Diabetic SP E11.40 ; Degenerative disc disease, lumbar M51.36 ; HTN (hypertension) I10 ; Gastritis K29.70 ; Hyperlipidemia E78.5 and CAD (coronary artery disease) I25.10 [place] [address] [place] [id number] [place] [phone] SP Jul, Severe episode of recurrent major depressive disorder, without SP features F33.2 [facility] [address] [id number] SP Jul, SP [facility] [address] [facility] [id number] [place] [id number] SP Jun, SP [facility] [address] [place] [id number] [place] [id number] SP Jun, Diabetes E11.9 ; Diabetic ne uropathy E11.40 ; Degenerative disc SP lumbar M51.36 ; HTN (hypertension) I10 ; Gastritis K29.70 ; Hyperlipidemia E78.5 ; Unspecified episodic mood disorder F39 ; Depression F32.9 and CAD (coronary artery disease) I25.10 [facility] [address] [facility] [id number] [address] [place] [id number] SP Jun, SP [facility] [address] [place] [id number] [place] [place] [id number] SP Jun, SP [facility] [id number] [place] [phone] SP Jun, Diabetes E11.9 ; Diabetic ne uropathy E11.40 ; Degenerative disc SP lumbar M51.36 ; HTN (hypertension) I10 ; Gastritis K29.70 ; Chronic pain G89.29 ; Insomnia G47.00 and Unspecified episodic mood disorder F39 [facility] [address] [facility] [id number] [address] [place] [phone] SP May, Diabetic neuropathy E11.40 ; Degenerative disc disease, lumbar SP ; HTN (hypertension) I10 ; Gastritis K29.70 ; Hyperlipidemia E78.5 ; Chronic pain G89.29 ; Insomnia G47.00 ; Unspecified episodic mood disorder F39 ; Diabetes E11.9 ; CAD (coronary artery disease) I25.10 and H/O Gram positive sepsis Z86.19 [facility] [address] [facility] [id number] [address] [place] [phone] SP May, SP [facility] [address] [facility] [id number] [address] [place] [phone] SP May, SP [facility] [address] [facility] [id number] [address] [place] [phone] SP May, SP [facility] [address] [facility] [id number] [address] [place] [phone] SP May, SP [facility] [address] [facility] [id number] [address] [place] [phone] SP May, UTI (urinary tract infection ) N39.0 ; Diabetes E11.9 ; Diabetic SP E11.40 ; Hyperlipidemia E78.5 and Chronic pain G89.29 [facility] [address] [facility] [id number] [address] [place] [phone] SP May, Insomnia, unspecified G47.00 and Chronic pain G89.29 SP [facility] [address] [facility] [id number] [address] [place] [phone] SP May, SP [facility] [address] [facility] [id number] [address] [place] [phone] SP May, SP [facility] [id number] [place] [phone] SP May, SP [facility] [id number] [place] [phone] SP Apr, Insomnia, unspecified G47.00 ; Chronic pain G89.29 and SP episodic mood disorder F39 [facility] [id number] [place] [id number] SP Apr, Unspecified episodic mood di sorder F39 SP [facility] [address] [facility] [id number] [place] [id number] SP Apr, Major depression F32.9 [address] [place] [id number] [place] [phone] SP Apr, SP [place] [address] [id number] SP Apr, Diabetes E11.9 ; Diabetic ne uropathy E11.40 ; Degenerative disc SP lumbar M51.36 ; HTN (hypertension) I10 ; Gastritis K29.70 ; Hyperlipidemia E78.5 ; Chronic pain G89.29 and Insomnia G47.00 [address] [address] [phone] SP Mar, SP [place] [id number] [place] [phone] SP Mar, SP [facility] [id number] [place] [phone] SP Mar, SP [facility] [id number] [place] [phone] SP Mar, Diabetes mellitus 250.00 ; D iabetic neuropathy 250.60 ; CAD SP artery disease) 414.00 ; Degenerative disc disease, lumbar 722.52 ; Gastritis 535.50 and Insomnia 780.52 [place] [id number] [place] [phone] SP Mar, Diabetes mellitus 250.00 ; D egenerative disc disease, lumbar SP ; Essential hypertension 401.9 ; Gastritis 535.50 and Chronic pain 338.29 [facility] [address] [phone] SP Feb, SP [facility] [id number] [place] [phone] SP Feb, SP [facility] [address] [id number] SP Jan, SP [facility] [id number] [place] [phone] SP Jan, Diabetes mellitus 250.00 ; D iabetic neuropathy 250.60 ; SP disc disease, lumbar 722.52 ; CAD (coronary artery disease) 414.00 ; Essential hypertension 401.9 ; Gastritis 535.50 ; Hyperlipidemia 272.4 and Distal end of ulna fracture, closed 813.43 [facility] [address] [phone] SP Dec, Wrist pain 719.43 and Diabet es mellitus 250.00 SP [facility] [address] [id number] SP May, SP [facility] [id number] [place] [phone] SP Dec, SP [facility] [address] [id number] SP November, SP [facility] [id number] [place] [phone] SP Oct, SP [facility] [id number] [place] [phone] SP Sep, SP [facility] [id number] [place] [phone] SP Sep, SP [facility] [address] [phone] SP Jun, SP [facility] [address] [id number] [address] [place] [address], [place] [phone] SP Jun, SP [facility] [address] [id number] [address] [place] [phone] SP 14 Jun, 2009 SP [facility] [address] [id number] [address] [place] [address], [place] [phone] SP Jun, SP [facility] [address] [id number] [address] [place] [phone] SP Jun, SP [facility] [address] [id number] [address] [place] [phone] SP Jun, SP [facility] [address] [id number] [address] [place] [phone] SP Jun, SP [facility] [address] [id number] [address] [place] [phone] SP May, SP [facility] [address] [id number] [address] [place] [phone] SP May, SP [facility] [address] [id number] [address] [place] [phone] SP May, SP [facility] [address] [id number] [address] [place] [phone] SP May, SP [facility] [address] [id number] [address] [place] [phone] SP 28 Apr, 2009 SP [facility] [address] [id number] [address] [place] [phone] SP 19 Apr, 2009 SP [facility] [address] [id number] [address] [place] [id number] SP 12 Apr, 2009 SP [facility] [address] [id number] [address] [place] [phone] SP 16 Mar, 2009 SP [facility] [address] [id number] [address] [place] [address], [place] [address] Dec, SP IMMUNIZATIONS No Known Immunizations SOCIAL HISTORY Never Assessed REASON FOR VISIT intake PLAN OF CARE Activity Details POS SP Follow Up next available Reason:depres alfredito & PTSD SP VITAL SIGNS MEDICATIONS Medication Instructions Dosage Frequency Start Date End Date Duration S tatus POS Pen Viola 31G X 6 MM as directed 6h 29 Dec, 2014 Active SP Janumet 50-500 MG Orally Twice a day 1 tablet with meals 12h Aug, 30 SP Unknown SP Promethazine HCl 25 MG Orally every 6 hours prn 1 tablet as needed Dec, Unknown SP Accu-Chek Softclix Lancets - subcutaneously 4 times a day us e to check blood SP 6h Feb, Active SP Aspir-81 81 MG Orally Once a day 1 tablet 24h Unknown SP Levemir FlexTouch 100 UNIT/ML Subcutaneous 55 units bid inject Active SP Zofran 8 MG Orally q6 hr PRN 1 tablet Dec, 30 da y(s) Active SP Prazosin HCl 2 MG Orally at bedtime 1 capsule Feb, 30 day(s) SP Lisinopril-Hydrochlorothiazide 20-25 MG Orally Once a day 1 tablet 24h Dec, Active SP Hydrocodone-Acetaminophen 10-325 MG Orally 2 times a day 1 tablet a s needed 12h Apr, 2018 28 days Active SP Plavix 75 MG TAKE 1 TABLET EVERY DAY 28 Active SP Actos 15 mg Orally Once a day 1 tablet 24h Sep, 30 d ay(s) Active SP Metformin HCl 500 mg DX- E11.65 at supper 2 tablets Aug, 30 day(s) SP HydrOXYzine HCl 50 mg Orally at bedtime as needed for sleep 1 table Feb, 30 days Not-Taking SP Gabapentin 300 MG Orally 3 times a day 1 capsule 8h 30 days Active SP Accu-Chek Deepika Plus - subcutaneously 4 times a day to check glucos e 6h Feb, Active SP NovoLog Flexpen 100 UNIT/ML Subcutaneous 3 times a day with meals inject 40 SP Active SP Crestor 40 mg Orally Once a day 1 tablet 24h Active SP Accu-Chek Deepika Plus w/Device subcutaneously 4 times a day check reyes gars 6h 2016 Active SP Lamictal 100 mg Orally Once a day 1 tablet 24h Feb, 30 day(s) SP Metoclopramide HCl 10 mg Orally every 6 hours 1 tab 6h 90 days Active SP RESULTS No Results PROCEDURES Procedure Date Ordered Result Body Site POS Psych diagnostic evaluation, established patient May 10, 2018 SP INSTRUCTIONS MEDICATIONS ADMINISTERED No Known [...]
--- OUTSIDE RECORDS SUMMARY | 2019-06-14 01:32 | XMS REPORT ---
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 Name Role Phone POS HAWKRAFAELA Unavailable SP PROBLEMS Type Condition ICD9-CM Code DEH15-QD Code Onset Dates Condition S tatus SNOMED POS Problem Type 2 diabetes mellitus with hyperglycemia E11.65 Active POS Problem Major depressive disorder, recurrent episode, moderate F33.1 Active SP Problem Obsessive-compulsive disorder, unspecified type F4 2.9 Active SP Problem Ataxia R27.0 Active 03901749 SP Problem Falls frequently R29.6 Active 279 002838 SP Problem Type 2 diabetes mellitus with other diab etic neurological complication SP E11.49 Active 96951364 SP Problem [facility] 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.4 Active 742205622 SP Problem History of pulmonary embolism Z86.711 Active 051392952 SP Problem Type 2 diabetes mellitus with other diabetic kid allen complication SP Active 73979492 SP Problem Insomnia G47.00 Active 504555254 SP Problem Degenerative disc disease, lumbar M51.36 Active 89426477 SP Problem HTN (hypertension) I10 Active 3 4043670 SP Problem Hyperlipidemia E78.5 Active 27589 004 SP Problem CAD (coronary artery disease) I25.10 Active 12874213 SP Problem Chronic pain G89.29 Active 9978190 1 SP Problem Post-traumatic stress disorder F43.10 Active 69532223 SP ALLERGIES No Information ENCOUNTERS Encounter Location Date Diagnosis POS [facility] [address] [facility] [id number] [address] [place] [phone] SP May, SP [facility] [address] [facility] [id number] [address] [place] [phone] SP Apr, SP [facility] [address] [facility] [id number] [address] [place] [phone] SP Apr, SP [facility] [address] [facility] [id number] [address] [place] [phone] SP Apr, Post-traumatic stress disord er F43.10 ; Diabetes E11.9 ; SP E78.5 ; Major depressive disorder, recurrent episode, moderate F33.1 ; Other irritable bowel syndrome K58.8 and Chronic pain G89.29 [facility] [address] [facility] [id number] [address] [place] [phone] SP Mar, Chronic pain G89.29 SP [facility] [address] [facility] [id number] [address] [place] [phone] SP Feb, Type 2 diabetes mellitus wit h other diabetic neurological SP E11.49 ; 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.29 ; Degenerative disc disease, lumbar M51.36 and Chronic pain G89.29 [facility] [address] [facility] [id number] [address] [place] [phone] SP Jan, SP [facility] [address] [facility] [id number] [address] [place] [phone] SP Jan, SP [facility] [address] [facility] [id number] [address] [place] [phone] SP Jan, SP [facility] [address] [facility] [id number] [address] [place] [phone] SP Jan, SP [facility] [address] [facility] [id number] [address] [place] [phone] SP Jan, SP [facility] [address] [id number] [address] [place] [phone] SP Jan, SP [facility] [address] [facility] [id number] [address] [place] [phone] SP Jan, Slurred speech R47.81 ; Atax ia R27.0 ; Left arm weakness R29.898 SP Type 2 diabetes mellitus with hyperglycemia E11.65 and Type 2 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 E11.49 [facility] [address] [facility] [id number] [address] [place] [phone] SP Jan, SP [facility] [address] [facility] [id number] [address] [place] [phone] SP Jan, Type 2 diabetes mellitus wit h hyperglycemia E11.65 and SP vomiting with nausea, unspecified vomiting type R11.2 [facility] [address] [facility] [id number] [address] [place] [phone] SP Dec, CAD (coronary artery disease ) I25.10 and Atypical chest pain SP [facility] [address] [facility] [id number] [address] [place] [phone] SP Dec, SP [facility] [address] [facility] [id number] [address] [place] [phone] SP Dec, Diabetes E11.9 ; Type 2 diab etes mellitus with hyperglycemia SP and Intractable vomiting with nausea, unspecified vomiting type R11.2 [place] [address] [facility] [id number] [address] [place] [phone] SP Dec, Chronic pain G89.29 SP [place] [address] [facility] [id number] [address] [place] [phone] SP November, SP [place] [address] [facility] [id number] [place] [phone] SP November, Diabetes E11.9 ; CAD (trinidad ry artery disease) I25.10 ; Atypical SP pain R07.89 ; Type 2 diabetes mellitus with hyperglycemia E11.65 ; 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.29 ; [facility] 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.4 and Chronic pain G89.29 [place] [address] [facility] [id number] [address] [place] [phone] SP Oct, SP [facility] [address] [facility] [id number] [address] [place] [phone] SP Oct, Chronic pain G89.29 SP [facility] [address] [place] [id number] [address] [place] [phone] SP Sep, Diabetes E11.9 SP [facility] [address] [facility] [id number] [address] [place] [phone] SP Sep, Chronic pain G89.29 SP [facility] [address] [facility] [id number] [address] [place] [phone] SP Sep, SP [facility] [address] [facility] [id number] [address] [place] [phone] SP Sep, Falls frequently R29.6 ; Elier g term 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.4 SP Type 2 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 E11.49 [facility] [address] [facility] [id number] [address] [place] [phone] SP Sep, SP [facility] [address] [facility] [id number] [address] [place] [phone] SP Sep, Diabetes E11.9 SP [facility] [address] [facility] [id number] [address] [place] [phone] SP Aug, SP [facility] [address] [facility] [id number] [address] [place] [phone] SP Aug, Chronic pain G89.29 SP [facility] [address] [facility] [id number] [address] [place] [phone] SP Aug, SP [facility] [address] [facility] [id number] [address] [place] [phone] SP Aug, Chronic pain G89.29 SP [facility] [address] [facility] [id number] [address] [place] [phone] SP Jul, SP [facility] [address] [facility] [id number] [address] [place] [phone] SP Jul, Diabetes E11.9 and Type 2 di abetes mellitus with other diabetic SP complication E11.29 [facility] [address] [facility] [id number] [address] [place] [phone] SP Jul, Type 2 diabetes mellitus wit h other diabetic kidney complication SP [facility] [address] [facility] [id number] [address] [place] [phone] SP Jul, SP [facility] [address] [facility] [id number] [address] [place] [phone] SP Jul, Chronic pain G89.29 SP [facility] [address] [facility] [id number] [address] [place] [phone] SP Jun, Diabetes E11.9 SP [facility] [address] [facility] [id number] [address] [place] [phone] SP Jun, Chronic pain G89.29 SP [facility] [address] [facility] [id number] [address] [place] [phone] SP Jun, Diabetes E11.9 ; Atypical ch est pain R07.89 ; 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 ; 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.29 ; Type 2 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 E11.49 ; History of pulmonary embolism Z86.711 and History of CVA (cerebrovascular accident) Z86.73 [facility] [address] [facility] [id number] [address] [place] [phone] SP May, SP [facility] [address] [facility] [id number] [address] [place] [phone] SP May, Chronic pain G89.29 SP [facility] [address] [facility] [id number] [address] [place] [phone] SP Apr, Chronic pain G89.29 SP [facility] [address] [facility] [id number] [address] [place] [phone] SP Apr, SP [facility] [address] [facility] [id number] [address] [place] [id number] SP Mar, Chronic pain G89.29 SP [facility] [address] [facility] [id number] [address] [place] [phone] SP Mar, Diabetes E11.9 SP [facility] [address] [facility] [id number] [address] [place] [phone] SP Mar, SP [facility] [address] [facility] [id number] [address] [place] [phone] SP Mar, Degenerative disc disease, l umbar M51.36 SP [place] [address] [facility] [id number] [address] [place] [phone] SP Feb, Diabetes E11.9 SP [place] [address] [facility] [id number] [address] [place] [phone] SP Feb, Diabetes E11.9 SP [place] [address] [facility] [id number] [address] [place] [phone] SP Feb, Diabetes E11.9 ; HTN (hypert ension) I10 ; Diabetic neuropathy SP and Leg cramps R25.2 [place] [address] [facility] [id number] [address] [place] [phone] SP 15 Feb, 2017 Sprain of calcaneofibular li gament of right ankle, subsequent SP S93.411D ; Major depressive disorder, recurrent episode, moderate F33.1 ; Diabetes E11.9 ; Hyperlipidemia E78.5 ; Post-traumatic stress disorder F43.10 and Other irritable bowel syndrome K58.8 [place] [address] [facility] [id number] [address] [place] [phone] SP 14 Feb, 2017 Major depressive disorder, r ecurrent episode, moderate F33.1 ; SPtraumatic stress disorder F43.10 and Obsessive-compulsive disorder, unspecified type F42.9 [place] [address] [facility] [id number] [address] [place] [phone] SP Feb, SP [place] [address] [facility] [id number] [address] [place] [phone] SP Feb, Post-traumatic stress disord er F43.10 and Major depressive SP recurrent, moderate F33.1 [place] [address] [facility] [id number] [address] [place] [phone] SP Feb, Diabetes E11.9 SP [place] [address] [id number] [address] [place] [phone] SP Feb, Degenerative disc disease, l umbar M51.36 SP [facility] [address] [id number] [address] [place] [phone] SP Feb, Post-traumatic stress disord er F43.10 and Major depressive SP recurrent, moderate F33.1 [facility] [address] [id number] [address] [place] [phone] SP Feb, SP [facility] [address] [id number] [address] [place] [phone] SP Feb, Diabetes E11.9 SP [facility] [address] [id number] [address] [place] [phone] SP Jan, Diabetes E11.9 SP [facility] [address] [id number] [address] [place] [phone] SP Jan, Post-traumatic stress disord er F43.10 and Major depressive SP recurrent, moderate F33.1 [facility] [address] [id number] [address] [place] [phone] SP Jan, Diabetes E11.9 SP [facility] [address] [facility] [id number] [address] [place] [phone] SP Jan, Diabetes E11.9 SP [facility] [address] [facility] [id number] [address] [place] [phone] SP Jan, SP [facility] [address] [id number] [address] [place] [phone] SP Jan, SP [facility] [address] [facility] [id number] [address] [place] [phone] SP Jan, Post-traumatic stress disord er F43.10 and Major depressive SP recurrent, moderate F33.1 [facility] [address] [facility] [id number] [address] [place] [phone] SP Jan, SP [facility] [address] [id number] [address] [place] [phone] SP Jan, Major depressive disorder, r ecurrent episode, moderate F33.1 ; SPtraumatic stress disorder F43.10 and Obsessive-compulsive disorder, unspecified type F42.9 [facility] [address] [id number] [address] [place] [phone] SP Jan, SP [facility] [address] [id number] [address] [place] [phone] SP Jan, Diabetes E11.9 SP [facility] [address] [id number] [address] [place] [phone] SP Jan, SP [facility] [address] [id number] [address] [place] [phone] SP Jan, Sprain of calcaneofibular li gament of right ankle, subsequent SP S93.411D [place] [address] [id number] [address] [place] [phone] SP Jan, Post-traumatic stress disord er F43.10 and Major depressive SP recurrent, moderate F33.1 [place] [address] [id number] [address] [place] [phone] SP Jan, Diabetes E11.9 SP [facility] [address] [id number] [address] [place] [phone] SP Dec, Major depressive disorder, r ecurrent episode, moderate F33.1 ; SPtraumatic stress disorder F43.10 and Obsessive-compulsive disorder, unspecified type F42.9 [facility] [address] [id number] [address] [place] [phone] SP Dec, SP [place] [address] [facility] [id number] [address] [place] [phone] SP Dec, Sprain of calcaneofibular li gament of right ankle, subsequent SP S93.411D [place] [address] [id number] [address] [place] [phone] SP Dec, Post-traumatic stress disord er F43.10 and Major depressive SP recurrent, moderate F33.1 [facility] [address] [place] [id number] [address] [place] [phone] SP Dec, Sprain of calcaneofibular li gament of right ankle, subsequent SP S93.411D [place] [address] [place] [id number] [address] [place] [phone] SP Dec, Hyperlipidemia E78.5 SP [facility] [address] [facility] [id number] [address] [place] [phone] SP Dec, SP [place] [address] [place] [id number] [place] [phone] SP Dec, Diabetes E11.9 ; Diabetic ne uropathy E11.40 ; Degenerative disc SP lumbar M51.36 ; Hyperlipidemia E78.5 ; Insomnia G47.00 ; CAD (coronary artery disease) I25.10 ; Major depressive disorder, recurrent, moderate F33.1 ; Post- traumatic stress disorder F43.10 and Other irritable bowel syndrome K58.8 [place] [id number] [place] [phone] SP November, Diabetic neuropathy E11.40 a nd Hyperlipidemia E78.5 SP [place] [address] [place] [id number] [address] [place] [phone] SP November, Degenerative disc disease, l umbar M51.36 SP [facility] [address] [facility] [id number] [address] [place] [phone] SP Oct, SP [facility] [address] [facility] [id number] [address] [place] [phone] SP Oct, Degenerative disc disease, l umbar M51.36 SP [place] [address] [facility] [id number] [address] [place] [phone] SP Sep, Degenerative disc disease, l umbar M51.36 and HTN (hypertension) SP [place] [address] [facility] [id number] [address] [place] [phone] SP Sep, Diabetic neuropathy E11.40 ; HTN (hypertension) I10 ; SP disc disease, lumbar M51.36 ; Hyperlipidemia E78.5 ; Insomnia G47.00 ; CAD (coronary artery disease) I25.10 and Diabetes E11.9 [facility] [address] [facility] [id number] [address] [place] [phone] SP Aug, SP [facility] [address] [facility] [id number] [address] [place] [phone] SP Aug, Type 2 diabetes mellitus wit h hyperglycemia E11.65 SP [facility] [address] [facility] [id number] [address] [place] [phone] SP Aug, SP [facility] [address] [facility] [id number] [address] [place] [phone] SP Jul, SP [facility] [address] [facility] [id number] [address] [place] [phone] SP Jul, SP [facility] [address] [facility] [id number] [address] [place] [phone] SP Jun, SP [facility] [address] [facility] [id number] [address] [place] [phone] SP Jun, SP [facility] [address] [facility] [id number] [address] [place] [phone] SP Jun, SP [facility] [address] [facility] [id number] [address] [place] [phone] SP Jun, SP [facility] [address] [facility] [id number] [address] [place] [phone] SP May, Major depressive disorder, r ecurrent episode, moderate F33.1 and SPtraumatic stress disorder F43.10 [facility] [address] [facility] [id number] [address] [place] [phone] SP May, Major depressive disorder, r ecurrent episode, moderate F33.1 and SPtraumatic stress disorder F43.10 [facility] [address] [id number] [address] [place] [phone] SP May, Diabetes E11.9 ; Diabetic ne uropathy E11.40 ; HTN (hypertension) SP ; Gastritis K29.70 ; Hyperlipidemia E78.5 ; Insomnia G47.00 and Major depressive disorder, recurrent, moderate F33.1 [facility] [address] [id number] [address] [place] [phone] SP May, Major depressive disorder, r ecurrent episode, moderate F33.1 SP [facility] [address] [id number] [address] [place] [phone] SP Apr, SP [facility] [address] [facility] [id number] [address] [place] [phone] SP Apr, Major depressive disorder, r ecurrent episode, moderate F33.1 and SPtraumatic stress disorder F43.10 [place] [address] [facility] [id number] [address] [place] [phone] SP Apr, Diabetes E11.9 ; Diabetic ne uropathy E11.40 ; Degenerative disc SP lumbar M51.36 ; HTN (hypertension) I10 ; Hyperlipidemia E78.5 ; Chronic pain G89.29 ; CAD (coronary artery disease) I25.10 and Major depressive disorder, recurrent, moderate F33.1 [facility] [address] [facility] [id number] [address] [place] [id number] SP Apr, Major depressive disorder, r ecurrent episode, moderate F33.1 and SPtraumatic stress disorder F43.10 [facility] [address] [id number] [address] [place] [phone] SP Apr, Major depressive disorder, r ecurrent episode, moderate F33.1 and SPtraumatic stress disorder F43.10 [facility] [address] [id number] [address] [place] [phone] SP Apr, Major depressive disorder, r ecurrent episode, moderate F33.1 and SP episodic mood disorder F39 [place] [address] [place] [id number] [place] [phone] SP Apr, Chronic pain G89.29 ; Diabet ic neuropathy E11.40 ; HTN SP I10 ; Insomnia G47.00 ; CAD (coronary artery disease) I25.10 ; Hyperlipidemia E78.5 ; Degenerative disc disease, lumbar M51.36 ; Diabetes E11.9 and Gastritis K29.70 [place] [address] [phone] SP Sep, SP [place] [address] [phone] SP Aug, SP [place] [address] [phone] SP Jul, Major depressive disorder, r ecurrent episode, moderate F33.1 SP [place] [address] [phone] SP Jul, Unspecified episodic mood di sorder F39 SP [place] [address] [address] SP Jul, SP [place] [address] [id number] SP Jul, SP [place] [address] [id number] SP Jul, SP [place] [address] [address] SP Jul, Type 2 diabetes mellitus wit h hyperglycemia E11.65 ; Diabetic SP E11.40 ; Degenerative disc disease, lumbar M51.36 ; HTN (hypertension) I10 ; Gastritis K29.70 ; Hyperlipidemia E78.5 and CAD (coronary artery disease) I25.10 [place] [address] [address] SP Jul, Severe episode of recurrent major depressive disorder, without SP features F33.2 [place] [address] [address] [facility] [id number] [address] [place] [phone] SP Jul, SP [facility] [address] [facility] [id number] [place] [id number] SP Jun, SP [facility] [address] [facility] [id number] [place] [id number] SP Jun, Diabetes E11.9 ; Diabetic ne uropathy E11.40 ; Degenerative disc SP lumbar M51.36 ; HTN (hypertension) I10 ; Gastritis K29.70 ; Hyperlipidemia E78.5 ; Unspecified episodic mood disorder F39 ; Depression F32.9 and CAD (coronary artery disease) I25.10 [place] [address] [address] [place] [id number] [place] [phone] SP Jun, SP [place] [address] [address] [place] [id number] [place] [id number] SP Jun, SP [facility] [address] [address] SP Jun, Diabetes E11.9 ; Diabetic ne uropathy E11.40 ; Degenerative disc SP lumbar M51.36 ; HTN (hypertension) I10 ; Gastritis K29.70 ; Chronic pain G89.29 ; Insomnia G47.00 and Unspecified episodic mood disorder F39 [place] [address] [address] [place] [id number] [address] [place] [id number] SP May, Diabetic neuropathy E11.40 ; Degenerative disc disease, lumbar SP ; HTN (hypertension) I10 ; Gastritis K29.70 ; Hyperlipidemia E78.5 ; Chronic pain G89.29 ; Insomnia G47.00 ; Unspecified episodic mood disorder F39 ; Diabetes E11.9 ; CAD (coronary artery disease) I25.10 and H/O Gram positive sepsis Z86.19 [place] [id number] [facility] [id number] [address] [place] [phone] SP May, SP [place] [address] [place] [id number] [place] [phone] SP May, [place] [id number] [id number] [address] [place] [phone] SP May, SP [facility] [address] [facility] [id number] [address] [place] [phone] SP May, SP [facility] [address] [facility] [id number] [address] [place] [phone] SP May, UTI (urinary tract infection ) N39.0 ; Diabetes E11.9 ; Diabetic SP E11.40 ; Hyperlipidemia E78.5 and Chronic pain G89.29 [facility] [address] [facility] [id number] [address] [place] [phone] SP May, Insomnia, unspecified G47.00 and Chronic pain G89.29 SP [facility] [address] [facility] [id number] [address] [place] [phone] SP May, SP [facility] [address] [facility] [id number] [address] [place] [phone] SP May, SP [facility] [address] [facility] [id number] [address] [place] [phone] SP May, SP [facility] [address] [facility] [id number] [address] [place] [phone] SP Apr, Insomnia, unspecified G47.00 ; Chronic pain G89.29 and SP episodic mood disorder F39 [facility] [address] [facility] [id number] [address] [place] [phone] SP Apr, Unspecified episodic mood di sorder F39 SP [facility] [address] [facility] [id number] [address] [place] [id number] SP Apr, Major depression F32.9 SP [facility] [address] [facility] [id number] [address] [place] [phone] SP Apr, SP [facility] [address] [facility] [id number] [address] [place] [phone] SP Apr, Diabetes E11.9 ; Diabetic ne uropathy E11.40 ; Degenerative disc SP lumbar M51.36 ; HTN (hypertension) I10 ; Gastritis K29.70 ; Hyperlipidemia E78.5 ; Chronic pain G89.29 and Insomnia G47.00 [place] [address] [phone] SP Mar, [facility] [address] [phone] SP Mar, SP [facility] [address] [address] SP Mar, [place] [address] [phone] SP Mar, Diabetes mellitus 250.00 ; D iabetic neuropathy 250.60 ; CAD SP artery disease) 414.00 ; Degenerative disc disease, lumbar 722.52 ; Gastritis 535.50 and Insomnia 780.52 [place] [address] [phone] SP Mar, Diabetes mellitus 250.00 ; D egenerative disc disease, lumbar SP ; Essential hypertension 401.9 ; Gastritis 535.50 and Chronic pain 338.29 [place] [address] [phone] SP Feb, [place] [address] [phone] SP Feb, [place] [address] [phone] SP Jan, [place] [address] [phone] SP Jan, Diabetes mellitus 250.00 ; D iabetic neuropathy 250.60 ; SP disc disease, lumbar 722.52 ; CAD (coronary artery disease) 414.00 ; Essential hypertension 401.9 ; Gastritis 535.50 ; Hyperlipidemia 272.4 and Distal end of ulna fracture, closed 813.43 [place] [address] [phone] SP Dec, Wrist pain 719.43 and Diabet es mellitus 250.00 SP [facility] [address] [facility] [id number] [address] [place] [address], [place] [address] SP May, SP [facility] [address] [facility] [id number] [address] [place] [address], [place] [address] SP Dec, SP [facility] [address] [facility] [id number] [address] [place] [address], [place] [address] SP November, SP [facility] [address] [facility] [id number] [address] [place] [address], [place] [address] SP Oct, SP [facility] [address] [facility] [id number] [address] [place] [address], [place] [address] SP Sep, SP [facility] [address] [facility] [id number] [address] [place] [phone] SP Sep, SP [facility] [address] [facility] [id number] [address] [place] [phone] SP Jun, SP [facility] [address] [facility] [id number] [address] [place] [address], [place] [address] SP Jun, SP [facility] [address] [facility] [id number] [address] [place] [phone] SP Jun, SP [facility] [address] [facility] [id number] [address] [place] [phone] SP Jun, SP [facility] [address] [facility] [id number] [address] [place] [phone] SP Jun, SP [facility] [address] [facility] [id number] [address] [place] [address], [place] [address] SP Jun, SP [facility] [address] [facility] [id number] [address] [place] [phone] SP Jun, SP [facility] [address] [facility] [id number] [address] [place] [phone] SP May, SP [facility] [address] [id number] [address] [place] [phone] SP May, SP [facility] [address] [id number] [address] [place] [phone] SP May, SP [facility] [address] [id number] [address] [place] [phone] SP May, SP [facility] [address] [id number] [address] [place] [phone] SP Apr, SP [facility] [address] [id number] [address] [place] [phone] SP Apr, SP [facility] [address] [id number] [address] [place] [phone] SP Apr, SP [facility] [address] [facility] [id number] [address] [place] [id number] SP Mar, SP [facility] [address] [id number] [address] [place] [phone] SP Dec, SP IMMUNIZATIONS No Known Immunizations SOCIAL HISTORY Never Assessed REASON FOR VISIT Reminder PLAN OF CARE VITAL SIGNS MEDICATIONS Unknown [...]
--- OUTSIDE RECORDS SUMMARY | 2019-06-14 01:32 | XMS REPORT ---
Author Author JALEN PEREZ POS Organization [facility] [place] SP Address [address] [place] [address] SP Care Team Providers Care [employer] Assistant Name Role Phone POS RISSAKARTIKFLAQUITOY Unavailable SP PROBLEMS Type Condition ICD9-CM Code [id number] Code Onset Dates Condition S tatus SNOMED POS Problem Type 2 diabetes mellitus with hyperglycemia E11.65 Active POS Problem Major depressive disorder, recurrent episode, moderate F33.1 Active SP Problem Obsessive-compulsive disorder, unspecified type F4 2.9 Active SP Problem Ataxia R27.0 Active 71231259 SP Problem Falls frequently R29.6 Active 279 919802 SP Problem Type 2 diabetes mellitus with other diab etic neurological complication SP E11.49 Active 82401946 SP 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.4 Active 619358329 SP Problem History of pulmonary embolism Z86.711 Active 101266814 SP Problem Type 2 diabetes mellitus with other diabetic kid allen complication SP Active 72499540 SP Problem Insomnia G47.00 Active 223773727 SP Problem Degenerative disc disease, lumbar M51.36 Active 41403553 SP Problem HTN (hypertension) I10 Active 3 1002196 SP Problem Hyperlipidemia E78.5 Active 45340 004 SP Problem CAD (coronary artery disease) I25.10 Active 01189426 SP Problem Chronic pain G89.29 Active 9885461 1 SP Problem Post-traumatic stress disorder F43.10 Active 96548622 SP ALLERGIES No Information ENCOUNTERS Encounter Location Date Diagnosis POS [facility] [place] [address] [facility] [id number] [address] [place] [phone] SP May, SP [facility] [place] [address] [facility] [id number] [address] [place] [phone] SP Apr, SP [facility] [place] [address] [facility] [id number] [address] [place] [phone] SP Apr, SP [facility] [place] [address] [facility] [id number] [address] [place] [phone] SP Apr, Post-traumatic stress disord er F43.10 ; Diabetes E11.9 ; SP E78.5 ; Major depressive disorder, recurrent episode, moderate F33.1 ; Other irritable bowel syndrome K58.8 and Chronic pain G89.29 [facility] [place] [address] [facility] [id number] [address] [place] [phone] SP Mar, Chronic pain G89.29 SP [facility] [place] [address] [facility] [id number] [address] [place] [phone] SP Feb, Type 2 diabetes mellitus wit h other diabetic neurological SP E11.49 ; 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.29 ; Degenerative disc disease, lumbar M51.36 and Chronic pain G89.29 [facility] [place] [address] [facility] [id number] [address] [place] [phone] SP Jan, SP [facility] [place] [address] [facility] [id number] [address] [place] [phone] SP Jan, SP [facility] [place] [address] [facility] [id number] [address] [place] [phone] SP Jan, SP [facility] [place] [address] [facility] [id number] [address] [place] [phone] SP Jan, SP [facility] [place] [address] [facility] [id number] [address] [place] [phone] SP Jan, SP [facility] [place] [address] [id number] [address] [place] [phone] SP Jan, SP [facility] [place] [address] [facility] [id number] [address] [place] [phone] SP Jan, Slurred speech R47.81 ; Atax ia R27.0 ; Left arm weakness R29.898 SP Type 2 diabetes mellitus with hyperglycemia E11.65 and Type 2 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 E11.49 [facility] [place] [address] [facility] [id number] [address] [place] [phone] SP Jan, SP [facility] [place] [address] [facility] [id number] [address] [place] [phone] SP Jan, Type 2 diabetes mellitus wit h hyperglycemia E11.65 and SP vomiting with nausea, unspecified vomiting type R11.2 [facility] [place] [address] [facility] [id number] [address] [place] [phone] SP Dec, CAD (coronary artery disease ) I25.10 and Atypical chest pain SP [facility] [place] [address] [facility] [id number] [address] [place] [phone] SP Dec, SP [facility] [place] [address] [facility] [id number] [place] [phone] SP Dec, Diabetes E11.9 ; Type 2 diab etes mellitus with hyperglycemia SP and Intractable vomiting with nausea, unspecified vomiting type R11.2 [facility] [place] [address] [facility] [id number] [address] [place] [phone] SP Dec, Chronic pain G89.29 SP [place] [address] [facility] [id number] [address] [place] [phone] SP November, SP [facility] [place] [address] [place] [id number] [place] [phone] SP November, Diabetes E11.9 ; CAD ([place]in[place] ry artery disease) I25.10 ; Atypical SP pain R07.89 ; Type 2 diabetes mellitus with hyperglycemia E11.65 ; 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.29 ; USP 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.4 and Chronic pain G89.29 [facility] [place] [address] [facility] [id number] [address] [place] [phone] SP Oct, SP [facility] [place] [address] [facility] [id number] [address] [place] [phone] SP Oct, Chronic pain G89.29 SP [facility] [place] [address] [place] [id number] [address] [place] [phone] SP Sep, Diabetes E11.9 SP [facility] [place] [address] [facility] [id number] [address] [place] [phone] SP Sep, Chronic pain G89.29 SP [facility] [place] [address] [facility] [id number] [address] [place] [phone] SP Sep, SP [facility] [place] [address] [facility] [id number] [address] [place] [phone] SP Sep, Falls frequently R29.6 ; Elier g term 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.4 SP Type 2 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 E11.49 [facility] [place] [address] [facility] [id number] [address] [place] [phone] SP Sep, SP [facility] [place] [address] [facility] [id number] [address] [place] [phone] SP Sep, Diabetes E11.9 SP [facility] [place] [address] [facility] [id number] [address] [place] [phone] SP Aug, SP [facility] [place] [address] [facility] [id number] [address] [place] [phone] SP Aug, Chronic pain G89.29 SP [facility] [place] [address] [facility] [id number] [address] [place] [phone] SP Aug, SP [facility] [place] [address] [facility] [id number] [address] [place] [phone] SP Aug, Chronic pain G89.29 SP [facility] [place] [address] [facility] [id number] [address] [place] [phone] SP Jul, SP [facility] [place] [address] [facility] [id number] [address] [place] [phone] SP Jul, Diabetes E11.9 and Type 2 di abetes mellitus with other diabetic SP complication E11.29 [facility] [place] [address] [facility] [id number] [address] [place] [phone] SP Jul, Type 2 diabetes mellitus wit h other diabetic kidney complication SP [facility] [place] [address] [facility] [id number] [address] [place] [phone] SP Jul, SP [facility] [place] [address] [facility] [id number] [address] [place] [phone] SP Jul, Chronic pain G89.29 SP [facility] [place] [address] [facility] [id number] [address] [place] [phone] SP Jun, Diabetes E11.9 SP [facility] [place] [address] [facility] [id number] [address] [place] [phone] SP Jun, Chronic pain G89.29 SP [facility] [place] [address] [facility] [id number] [address] [place] [phone] SP Jun, Diabetes E11.9 ; Atypical ch est pain R07.89 ; USP current SP of insulin Z79.4 ; 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.29 ; Type 2 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 E11.49 ; History of pulmonary embolism Z86.711 and History of CVA (cerebrovascular accident) Z86.73 [facility] [place] [address] [facility] [id number] [address] [place] [phone] SP May, SP [facility] [place] [address] [facility] [id number] [address] [place] [phone] SP May, Chronic pain G89.29 SP [facility] [place] [address] [facility] [id number] [address] [place] [phone] SP Apr, Chronic pain G89.29 SP [facility] [place] [address] [facility] [id number] [address] [place] [phone] SP Apr, SP [facility] [place] [address] [facility] [id number] [address] [place] [phone] SP Mar, Chronic pain G89.29 SP [facility] [place] [address] [facility] [id number] [address] [place] [phone] SP Mar, Diabetes E11.9 SP [facility] [place] [address] [facility] [id number] [address] [place] [phone] SP Mar, SP [place] [address] [facility] [id number] [address] [place] [phone] SP Mar, Degenerative disc disease, l umbar M51.36 SP [place] [address] [facility] [id number] [address] [place] [phone] SP Feb, Diabetes E11.9 SP [place] [address] [facility] [id number] [address] [place] [phone] SP Feb, Diabetes E11.9 SP [place] [address] [facility] [id number] [address] [place] [phone] SP Feb, Diabetes E11.9 ; HTN (hypert ension) I10 ; Diabetic neuropathy SP and Leg cramps R25.2 [place] [address] [facility] [id number] [address] [place] [phone] SP 15 Feb, 2017 Sprain of calcaneofibular li gament of right ankle, subsequent SP S93.411D ; Major depressive disorder, recurrent episode, moderate F33.1 ; Diabetes E11.9 ; Hyperlipidemia E78.5 ; Post-traumatic stress disorder F43.10 and Other irritable bowel syndrome K58.8 [place] [address] [facility] [id number] [address] [place] [phone] SP 14 Feb, 2017 Major depressive disorder, r ecurrent episode, moderate F33.1 ; SPtraumatic stress disorder F43.10 and Obsessive-compulsive disorder, unspecified type F42.9 [place] [address] [facility] [id number] [address] [place] [phone] SP Feb, SP [place] [address] [facility] [id number] [address] [place] [phone] SP Feb, Post-traumatic stress disord er F43.10 and Major depressive SP recurrent, moderate F33.1 [place] [address] [facility] [id number] [address] [place] [phone] SP Feb, Diabetes E11.9 SP [facility] [place] [address] [id number] [address] [place] [phone] SP Feb, Degenerative disc disease, l umbar M51.36 SP [facility] [place] [address] [id number] [address] [place] [phone] SP Feb, Post-traumatic stress disord er F43.10 and Major depressive SP recurrent, moderate F33.1 [facility] [place] [address] [id number] [address] [place] [phone] SP Feb, SP [facility] [place] [address] [id number] [address] [place] [phone] SP Feb, Diabetes E11.9 SP [facility] [place] [address] [id number] [address] [place] [phone] SP Jan, Diabetes E11.9 SP [facility] [place] [address] [facility] [id number] [address] [place] [phone] SP Jan, Post-traumatic stress disord er F43.10 and Major depressive SP recurrent, moderate F33.1 [facility] [place] [address] [id number] [address] [place] [phone] SP Jan, Diabetes E11.9 SP [facility] [place] [address] [id number] [address] [place] [phone] SP Jan, Diabetes E11.9 SP [facility] [place] [address] [id number] [address] [place] [phone] SP Jan, SP [facility] [place] [address] [id number] [address] [place] [phone] SP Jan, SP [facility] [place] [address] [facility] [id number] [address] [place] [phone] SP Jan, Post-traumatic stress disord er F43.10 and Major depressive SP recurrent, moderate F33.1 [facility] [place] [address] [facility] [id number] [address] [place] [phone] SP Jan, SP [facility] [place] [address] [id number] [address] [place] [phone] SP Jan, Major depressive disorder, r ecurrent episode, moderate F33.1 ; SPtraumatic stress disorder F43.10 and Obsessive-compulsive disorder, unspecified type F42.9 [facility] [place] [address] [id number] [address] [place] [phone] SP Jan, SP [facility] [place] [address] [id number] [address] [place] [phone] SP Jan, Diabetes E11.9 SP [facility] [place] [address] [id number] [address] [place] [phone] SP Jan, SP [facility] [place] [address] [id number] [address] [place] [phone] SP Jan, Sprain of calcaneofibular li gament of right ankle, subsequent SP S93.411D [facility] [place] [address] [id number] [address] [place] [phone] SP Jan, Post-traumatic stress disord er F43.10 and Major depressive SP recurrent, moderate F33.1 [facility] [place] [address] [id number] [address] [place] [phone] SP Jan, Diabetes E11.9 SP [facility] [place] [address] [id number] [address] [place] [phone] SP Dec, Major depressive disorder, r ecurrent episode, moderate F33.1 ; SPtraumatic stress disorder F43.10 and Obsessive-compulsive disorder, unspecified type F42.9 [facility] [place] [address] [id number] [address] [place] [phone] SP Dec, SP [facility] [place] [address] [facility] [id number] [address] [place] [phone] SP Dec, Sprain of calcaneofibular li gament of right ankle, subsequent SP S93.411D [facility] [place] [address] [id number] [address] [place] [phone] SP Dec, Post-traumatic stress disord er F43.10 and Major depressive SP recurrent, moderate F33.1 [facility] [place] [address] [facility] [id number] [address] [place] [phone] SP Dec, Sprain of calcaneofibular li gament of right ankle, subsequent SP S93.411D [facility] [place] [address] [facility] [id number] [address] [place] [phone] SP Dec, Hyperlipidemia E78.5 SP [facility] [place] [address] [facility] [id number] [address] [place] [phone] SP Dec, SP [place] [address] [place] [id number] [address] [place] [phone] SP Dec, Diabetes E11.9 ; Diabetic ne uropathy E11.40 ; Degenerative disc SP lumbar M51.36 ; Hyperlipidemia E78.5 ; Insomnia G47.00 ; CAD (coronary artery disease) I25.10 ; Major depressive disorder, recurrent, moderate F33.1 ; Post- traumatic stress disorder F43.10 and Other irritable bowel syndrome K58.8 [place] [address] [facility] [id number] [address] [place] [phone] SP November, Diabetic neuropathy E11.40 a nd Hyperlipidemia E78.5 SP [place] [address] [facility] [id number] [address] [place] [phone] SP November, Degenerative disc disease, l umbar M51.36 SP [facility] [place] [address] [facility] [id number] [address] [place] [phone] SP Oct, SP [place] [address] [facility] [id number] [address] [place] [phone] SP Oct, Degenerative disc disease, l umbar M51.36 SP [place] [address] [address] [facility] [id number] [address] [place] [phone] SP Sep, Degenerative disc disease, l umbar M51.36 and HTN (hypertension) SP [place] [address] [facility] [id number] [address] [place] [phone] SP Sep, Diabetic neuropathy E11.40 ; HTN (hypertension) I10 ; SP disc disease, lumbar M51.36 ; Hyperlipidemia E78.5 ; Insomnia G47.00 ; CAD (coronary artery disease) I25.10 and Diabetes E11.9 [facility] [place] [address] [facility] [id number] [address] [place] [phone] SP Aug, SP [facility] [place] [address] [facility] [id number] [address] [place] [phone] SP Aug, Type 2 diabetes mellitus wit h hyperglycemia E11.65 SP [facility] [place] [address] [facility] [id number] [address] [place] [phone] SP Aug, SP [facility] [place] [address] [facility] [id number] [address] [place] [phone] SP Jul, SP [facility] [place] [address] [facility] [id number] [address] [place] [id number] SP Jul, SP [facility] [place] [address] [facility] [id number] [address] [place] [phone] SP Jun, SP [facility] [place] [address] [facility] [id number] [address] [place] [phone] SP Jun, SP [facility] [place] [address] [facility] [id number] [address] [place] [phone] SP Jun, SP [facility] [place] [address] [facility] [id number] [address] [place] [phone] SP Jun, SP [facility] [place] [address] [facility] [id number] [address] [place] [id number] SP May, Major depressive disorder, r ecurrent episode, moderate F33.1 and SPtraumatic stress disorder F43.10 [facility] [place] [address] [facility] [id number] [address] [place] [phone] SP May, Major depressive disorder, r ecurrent episode, moderate F33.1 and SPtraumatic stress disorder F43.10 [facility] [place] [address] [id number] [address] [place] [phone] SP May, Diabetes E11.9 ; Diabetic ne uropathy E11.40 ; HTN (hypertension) SP ; Gastritis K29.70 ; Hyperlipidemia E78.5 ; Insomnia G47.00 and Major depressive disorder, recurrent, moderate F33.1 [facility] [place] [address] [id number] [address] [place] [phone] SP May, Major depressive disorder, r ecurrent episode, moderate F33.1 SP [place] [address] [id number] [address] [place] [phone] SP Apr, SP [place] [address] [address] [facility] [id number] [address] [place] [phone] SP Apr, Major depressive disorder, r ecurrent episode, moderate F33.1 and SPtraumatic stress disorder F43.10 [place] [address] [address] [facility] [id number] [address] [place] [phone] SP Apr, Diabetes E11.9 ; Diabetic ne uropathy E11.40 ; Degenerative disc SP lumbar M51.36 ; HTN (hypertension) I10 ; Hyperlipidemia E78.5 ; Chronic pain G89.29 ; CAD (coronary artery disease) I25.10 and Major depressive disorder, recurrent, moderate F33.1 [place] [address] [id number] [address] [place] [phone] SP Apr, Major depressive disorder, r ecurrent episode, moderate F33.1 and SPtraumatic stress disorder F43.10 [place] [address] [id number] [address] [place] [phone] SP Apr, Major depressive disorder, r ecurrent episode, moderate F33.1 and SPtraumatic stress disorder F43.10 [place] [address] [id number] [address] [place] [phone] SP Apr, Major depressive disorder, r ecurrent episode, moderate F33.1 and SP episodic mood disorder F39 [place] [address] [facility] [id number] [address] [place] [phone] SP Apr, Chronic pain G89.29 ; Diabet ic neuropathy E11.40 ; HTN SP I10 ; Insomnia G47.00 ; CAD (coronary artery disease) I25.10 ; Hyperlipidemia E78.5 ; Degenerative disc disease, lumbar M51.36 ; Diabetes E11.9 and Gastritis K29.70 [place] [address] [facility] [id number] [place] [phone] SP Sep, SP [place] [address] [facility] [id number] [place] [phone] SP Aug, SP [place] [address] [address] [place] [id number] [place] [phone] SP Jul, Major depressive disorder, r ecurrent episode, moderate F33.1 SP [place] [address] [place] [id number] [place] [phone] SP Jul, Unspecified episodic mood di sorder F39 SP [place] [address] [address] [facility] [id number] [address] [place] [phone] SP Jul, SP [place] [address] [facility] [id number] [place] [phone] SP Jul, SP [place] [address] [place] [id number] [address] [place] [phone] SP Jul, SP [place] [address] [place] [id number] [address] [place] [phone] SP Jul, Type 2 diabetes mellitus wit h hyperglycemia E11.65 ; Diabetic SP E11.40 ; Degenerative disc disease, lumbar M51.36 ; HTN (hypertension) I10 ; Gastritis K29.70 ; Hyperlipidemia E78.5 and CAD (coronary artery disease) I25.10 [place] [address] [place] [id number] [address] [place] [phone] SP Jul, Severe episode of recurrent major depressive disorder, without SP features F33.2 [place] [address] [address] [facility] [id number] [address] [place] [phone] SP Jul, SP [facility] [place] [address] [facility] [id number] [place] [phone] SP Jun, SP [facility] [place] [address] [facility] [id number] [address] [place] [phone] SP Jun, Diabetes E11.9 ; Diabetic ne uropathy E11.40 ; Degenerative disc SP lumbar M51.36 ; HTN (hypertension) I10 ; Gastritis K29.70 ; Hyperlipidemia E78.5 ; Unspecified episodic mood disorder F39 ; Depression F32.9 and CAD (coronary artery disease) I25.10 [place] [address] [address] [facility] [id number] [place] [phone] SP Jun, SP [place] [address] [place] [id number] [place] [phone] SP Jun, SP [facility] [place] [address] [place] [id number] [place] [phone] SP Jun, Diabetes E11.9 ; Diabetic ne uropathy E11.40 ; Degenerative disc SP lumbar M51.36 ; HTN (hypertension) I10 ; Gastritis K29.70 ; Chronic pain G89.29 ; Insomnia G47.00 and Unspecified episodic mood disorder F39 [place] [address] [place] [id number] [place] [phone] SP May, Diabetic neuropathy E11.40 ; Degenerative disc disease, lumbar SP ; HTN (hypertension) I10 ; Gastritis K29.70 ; Hyperlipidemia E78.5 ; Chronic pain G89.29 ; Insomnia G47.00 ; Unspecified episodic mood disorder F39 ; Diabetes E11.9 ; CAD (coronary artery disease) I25.10 and H/O Gram positive sepsis Z86.19 [facility] [place] [address] [facility] [id number] [address] [place] [phone] SP May, SP [place] [address] [place] [id number] [place] [phone] SP May, [facility] [address] [id number] [address] [place] [phone] SP May, SP [facility] [place] [address] [facility] [id number] [address] [place] [phone] SP May, SP [facility] [place] [address] [facility] [id number] [address] [place] [phone] SP May, UTI (urinary tract infection ) N39.0 ; Diabetes E11.9 ; Diabetic SP E11.40 ; Hyperlipidemia E78.5 and Chronic pain G89.29 [facility] [place] [address] [facility] [id number] [address] [place] [phone] SP May, Insomnia, unspecified G47.00 and Chronic pain G89.29 SP [facility] [place] [address] [facility] [id number] [address] [place] [phone] SP May, SP [facility] [place] [address] [facility] [id number] [address] [place] [phone] SP May, SP [facility] [place] [address] [facility] [id number] [address] [place] [phone] SP May, SP [facility] [place] [address] [facility] [id number] [address] [place] [phone] SP Apr, Insomnia, unspecified G47.00 ; Chronic pain G89.29 and SP episodic mood disorder F39 [facility] [place] [address] [facility] [id number] [address] [place] [phone] SP Apr, Unspecified episodic mood di sorder F39 SP [facility] [place] [address] [facility] [id number] [address] [place] [phone] SP Apr, Major depression F32.9 SP [facility] [place] [address] [facility] [id number] [address] [place] [phone] SP Apr, SP [facility] [place] [address] [facility] [id number] [address] [place] [phone] SP Apr, Diabetes E11.9 ; Diabetic ne uropathy E11.40 ; Degenerative disc SP lumbar M51.36 ; HTN (hypertension) I10 ; Gastritis K29.70 ; Hyperlipidemia E78.5 ; Chronic pain G89.29 and Insomnia G47.00 [place] [address] [phone] SP Mar, [facility] [address] [phone] SP Mar, SP [facility] [place] [address] [phone] SP Mar, [place] [address] [phone] SP Mar, Diabetes mellitus 250.00 ; D iabetic neuropathy 250.60 ; CAD SP artery disease) 414.00 ; Degenerative disc disease, lumbar 722.52 ; Gastritis 535.50 and Insomnia 780.52 [place] [address] [address] SP Mar, Diabetes mellitus 250.00 ; D egenerative disc disease, lumbar SP ; Essential hypertension 401.9 ; Gastritis 535.50 and Chronic pain 338.29 [place] [address] [phone] SP Feb, [place] [address] [phone] SP Feb, [facility] [address] [phone] SP Jan, [facility] [address] [phone] SP Jan, Diabetes mellitus 250.00 ; D iabetic neuropathy 250.60 ; SP disc disease, lumbar 722.52 ; CAD (coronary artery disease) 414.00 ; Essential hypertension 401.9 ; Gastritis 535.50 ; Hyperlipidemia 272.4 and Distal end of ulna fracture, closed 813.43 [place] [address] [place] [address] SP Dec, Wrist pain 719.43 and Diabet es mellitus 250.00 SP [facility] [address] [facility] [id number] [address] [place] [address], [place] [address] SP May, SP [facility] [address] [facility] [id number] [address] [place] [phone] SP Dec, SP [facility] [address] [facility] [id number] [address] [place] [address], [place] [address] SP November, SP [facility] [address] [facility] [id number] [address] [place] [address], [place] [address] SP Oct, SP [facility] [address] [facility] [id number] [address] [place] [phone] SP Sep, SP [facility] [address] [facility] [id number] [address] [place] [phone] SP Sep, SP [facility] [address] [facility] [id number] [address] [place] [address], [place] [address] SP Jun, SP [facility] [address] [facility] [id number] [address] [place] [address], [place] [address] SP Jun, SP [facility] [address] [facility] [id number] [address] [place] [phone] SP Jun, SP [facility] [place] [address] [facility] [id number] [address] [place] [phone] SP Jun, SP [facility] [address] [facility] [id number] [address] [place] [phone] SP Jun, SP [facility] [address] [facility] [id number] [address] [place] [address], [place] [address] SP Jun, SP [facility] [address] [facility] [id number] [address] [place] [phone] SP Jun, SP [facility] [address] [facility] [id number] [address] [place] [phone] SP May, SP [facility] [place] [address] [id number] [address] [place] [phone] SP May, SP [facility] [place] [address] [id number] [address] [place] [phone] SP May, SP [facility] [place] [address] [id number] [address] [place] [phone] SP May, SP [facility] [place] [address] [id number] [address] [place] [phone] SP Apr, SP [facility] [place] [address] [id number] [address] [place] [phone] SP Apr, SP [facility] [place] [address] [id number] [address] [place] [phone] SP Apr, SP [facility] [place] [address] [facility] [id number] [address] [place] [phone] SP Mar, SP [facility] [place] [address] [id number] [address] [place] [phone] SP Dec, SP IMMUNIZATIONS No Known Immunizations SOCIAL HISTORY Never Assessed REASON FOR VISIT Controlled Medication Refill PLAN OF CARE VITAL SIGNS MEDICATIONS Medication Instructions Dosage Frequency Start Date End Date Duration S tatus POS Crestor 40 mg Orally Once a day 1 tablet 24h Active SP Lisinopril-Hydrochlorothiazide 20-25 MG Orally Once a day 1 tablet 24h Dec, Active SP Hydrocodone-Acetaminophen 10-325 MG Orally 2 times a day 1 tablet a s needed 12h SP Apr, 2018 28 days Active SP Metoclopramide HCl 10 mg Orally [...]
--- OUTSIDE RECORDS SUMMARY | 2019-06-14 01:33 | XMS REPORT ---
Author Author JALEN PEREZ POS Organization [facility], [place] SP Address [address] [place] [address] SP Care Team Providers Care Physician'S Aide Name Role Phone POS RISSAKARTIKFLAQUITOY Unavailable SP PROBLEMS Type Condition ICD9-CM Code [id number] Code Onset Dates Condition S tatus SNOMED POS Problem Type 2 diabetes mellitus with hyperglycemia E11.65 Active POS Problem Major depressive disorder, recurrent episode, moderate F33.1 Active SP Problem Obsessive-compulsive disorder, unspecified type F4 2.9 Active SP Problem Ataxia R27.0 Active 85132440 SP Problem Falls frequently R29.6 Active 279 383411 SP Problem Type 2 diabetes mellitus with other diab etic neurological complication SP E11.49 Active 84893343 SP Problem 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 656584418 SP Problem History of pulmonary embolism Z86.711 Active 195819448 SP Problem Type 2 diabetes mellitus with other diabetic kid allen complication SP Active 54678015 SP Problem Insomnia G47.00 Active 611595428 SP Problem Degenerative disc disease, lumbar M51.36 Active 82446851 SP Problem HTN (hypertension) I10 Active 3 4917379 SP Problem Hyperlipidemia E78.5 Active 42837 004 SP Problem CAD (coronary artery disease) I25.10 Active 15934618 SP Problem Chronic pain G89.29 Active 1595594 1 SP Problem Post-traumatic stress disorder F43.10 Active 44086593 SP ALLERGIES No Information ENCOUNTERS Encounter Location Date Diagnosis POS [facility], [place] [address] [facility] [id number] [address] [place] [phone] SP Apr, SP [facility] [place] [address] [facility] [id number] [address] [place] [address] SP Apr, SP [facility], [place] [address] [facility] [id number] [address] [place] [address] SP Mar, Chronic pain G89.29 SP [facility], [place] [address] [facility] [id number] [address] [place] [address] SP Feb, Type 2 diabetes mellitus wit h other diabetic neurological SP E11.49 ; 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.29 ; Degenerative disc disease, lumbar M51.36 and Chronic pain G89.29 [facility], [place] [address] [facility] [id number] [address] [place] [phone] SP Jan, SP [facility], [place] [address] [id number] [address] [place] [phone] SP Jan, SP [facility], [place] [address] [facility] [id number] [address] [place] [address] SP Jan, SP [facility] [place] [address] [facility] [id number] [address] [place] [address] SP Jan, SP [facility] [place] [address] [facility] [id number] [address] [place] [address] SP Jan, SP [facility], [place] [address] [facility] [id number] [address] [place] [address] SP Jan, SP [facility] [place] [address] [facility] [id number] [address] [place] [address] SP Jan, Slurred speech R47.81 ; Atax ia R27.0 and Left arm weakness SP [facility], [place] [address] [id number] [address] [place] [address] SP Jan, SP [facility], [place] [address] [facility] [id number] [address] [place] [address] SP Jan, Type 2 diabetes mellitus wit h hyperglycemia E11.65 and SP vomiting with nausea, unspecified vomiting type R11.2 [facility] [place] [address] [facility] [id number] [address] [place] [address] SP Dec, CAD (coronary artery disease ) I25.10 and Atypical chest pain SP [facility], [place] [address] [facility] [id number] [address] [place] [address] SP Dec, SP [facility] [place] [address] [facility] [id number] [address] [place] [address] SP Dec, Diabetes E11.9 ; Type 2 diab etes mellitus with hyperglycemia SP and Intractable vomiting with nausea, unspecified vomiting type R11.2 [facility], [place] [address] [facility] [id number] [address] [place] [address] SP Dec, Chronic pain G89.29 SP [facility], [place] [address] [facility] [id number] [address] [place] [address] SP November, SP [facility], [place] [address] [facility] [id number] [address] [place] [address] SP November, Diabetes E11.9 ; CAD (trin[place] ry artery disease) I25.10 ; Atypical SP pain R07.89 ; Type 2 diabetes mellitus with hyperglycemia E11.65 ; 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.29 ; 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 and Chronic pain G89.29 [facility] [place] [address] [facility] [id number] [address] [place] [address] SP Oct, SP [facility] [place] [address] [facility] [id number] [address] [place] [address] SP Oct, Chronic pain G89.29 SP [facility], [place] [address] [facility] [id number] [address] [place] [address] SP Sep, Diabetes E11.9 SP [facility], [place] [address] [facility] [id number] [address] [place] [address] SP Sep, Chronic pain G89.29 SP [facility] [place] [address] [facility] [id number] [address] [place] [address] SP Sep, SP [facility] [place] [address] [facility] [id number] [address] [place] [address] SP Sep, Falls frequently R29.6 ; Elier g term 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.4 SP Type 2 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 E11.49 [facility] [place] [address] [facility] [id number] [address] [place] [address] SP Sep, SP [facility] [place] [address] [facility] [id number] [address] [place] [address] SP Sep, Diabetes E11.9 SP [facility], [place] [address] [facility] [id number] [address] [place] [address] SP Aug, SP [facility] [place] [address] [facility] [id number] [address] [place] [address] SP Aug, Chronic pain G89.29 SP [facility], [place] [address] [facility] [id number] [address] [place] [address] SP Aug, SP [facility] [place] [address] [facility] [id number] [address] [place] [address] SP Aug, Chronic pain G89.29 SP [facility] [place] [address] [facility] [id number] [address] [place] [address] SP Jul, SP [facility] [place] [address] [facility] [id number] [address] [place] [address] SP Jul, Diabetes E11.9 and Type 2 di abetes mellitus with other diabetic SP complication E11.29 [facility], [place] [address] [facility] [id number] [address] [place] [address] SP Jul, Type 2 diabetes mellitus wit h other diabetic kidney complication SP [facility] [place] [address] [facility] [id number] [address] [place] [address] SP Jul, SP [facility], [place] [address] [facility] [id number] [address] [place] [address] SP Jul, Chronic pain G89.29 SP [facility], [place] [address] [facility] [id number] [address] [place] [address] SP Jun, Diabetes E11.9 SP [facility], [place] [address] [facility] [id number] [address] [place] [address] SP Jun, Chronic pain G89.29 SP [facility], [place] [address] [facility] [id number] [address] [place] [address] SP Jun, Diabetes E11.9 ; Atypical ch est pain R07.89 ; [facility] current SP of insulin Z79.4 ; 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.29 ; Type 2 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 E11.49 ; History of pulmonary embolism Z86.711 and History of CVA (cerebrovascular accident) Z86.73 [facility], [place] [address] [facility] [id number] [address] [place] [address] SP May, SP [facility], [place] [address] [facility] [id number] [address] [place] [address] SP May, Chronic pain G89.29 SP [facility], [place] [address] [facility] [id number] [address] [place] [address] SP Apr, Chronic pain G89.29 SP [facility], [place] [address] [facility] [id number] [address] [place] [address] SP Apr, SP [facility], [place] [address] [facility] [id number] [address] [place] [address] SP Mar, Chronic pain G89.29 SP [facility] [place] [address] [facility] [id number] [address] [place] [address] SP Mar, Diabetes E11.9 SP [facility], [place] [address] [facility] [id number] [address] [place] [address] SP Mar, SP [facility], [place] [address] [facility] [id number] [address] [place] [address] SP Mar, Degenerative disc disease, l umbar M51.36 SP [facility], [place] [address] [facility] [id number] [address] [place] [address] SP Feb, Diabetes E11.9 SP [facility], [place] [address] [facility] [id number] [address] [place] [address] SP Feb, Diabetes E11.9 [facility] [address] [id number] [address] [place] [address] SP 16 Feb, 2017 Diabetes E11.9 ; HTN (hypert ension) I10 ; Diabetic neuropathy SP and Leg cramps R25.2 [facility], [place] [address] [id number] [address] [place] [address] SP 15 Feb, 2017 Sprain of calcaneofibular li gament of right ankle, subsequent SP S93.411D ; Major depressive disorder, recurrent episode, moderate F33.1 ; Diabetes E11.9 ; Hyperlipidemia E78.5 ; Post-traumatic stress disorder F43.10 and Other irritable bowel syndrome K58.8 [facility], [place] [address] [id number] [address] [place] [address] SP 14 Feb, 2017 Major depressive disorder, r ecurrent episode, moderate F33.1 ; SPtraumatic stress disorder F43.10 and Obsessive-compulsive disorder, unspecified type F42.9 [place] [address] [id number] [address] [place] [address] SP Feb, SP [facility], [place] [address] [id number] [address] [place] [address] SP Feb, Post-traumatic stress disord er F43.10 and Major depressive SP recurrent, moderate F33.1 [place] [id number] [id number] [address] [place] [address] SP Feb, Diabetes E11.9 SP [facility] [place] [address] [id number] [address] [place] [address] SP Feb, Degenerative disc disease, l umbar M51.36 SP [place] [address] [id number] [address] [place] [address] SP Feb, Post-traumatic stress disord er F43.10 and Major depressive SP recurrent, moderate F33.1 [place] [address] [id number] [address] [place] [address] SP Feb, SP [place] [address] [id number] [address] [place] [address] SP Feb, Diabetes E11.9 SP [facility], [place] [address] [id number] [address] [place] [address] SP Jan, Diabetes E11.9 SP [facility], [place] [address] [id number] [address] [place] [address] SP Jan, Post-traumatic stress disord er F43.10 and Major depressive SP recurrent, moderate F33.1 [facility], [place] [address] [id number] [address] [place] [phone] SP Jan, Diabetes E11.9 SP [facility] [place] [address] [id number] [address] [place] [address] SP Jan, Diabetes E11.9 SP [facility] [place] [address] [id number] [address] [place] [phone] SP Jan, SP [facility] [place] [address] [id number] [address] [place] [phone] SP Jan, SP [facility] [place] [address] [id number] [address] [place] [address] SP Jan, Post-traumatic stress disord er F43.10 and Major depressive SP recurrent, moderate F33.1 [facility] [place] [address] [id number] [address] [place] [phone] SP Jan, SP [facility] [place] [address] [id number] [address] [place] [address] SP Jan, Major depressive disorder, r ecurrent episode, moderate F33.1 ; SPtraumatic stress disorder F43.10 and Obsessive-compulsive disorder, unspecified type F42.9 [facility] [place] [address] [id number] [address] [place] [address] SP Jan, SP [facility] [place] [address] [facility] [id number] [address] [place] [address] SP Jan, Diabetes E11.9 SP [facility] [place] [address] [id number] [address] [place] [address] SP Jan, SP [facility] [place] [address] [id number] [address] [place] [address] SP Jan, Sprain of calcaneofibular li gament of right ankle, subsequent SP S93.411D [facility] [place] [address] [id number] [address] [place] [address] SP Jan, Post-traumatic stress disord er F43.10 and Major depressive SP recurrent, moderate F33.1 [facility] [place] [address] [id number] [address] [place] [address] SP Jan, Diabetes E11.9 SP [facility] [place] [address] [id number] [address] [place] [address] SP 16 Dec, 2016 Major depressive disorder, r ecurrent episode, moderate F33.1 ; SPtraumatic stress disorder F43.10 and Obsessive-compulsive disorder, unspecified type F42.9 [facility] [place] [address] [id number] [address] [place] [address] SP 15 Dec, 2016 SP [place] [address] [id number] [address] [place] [address] SP 14 Dec, 2016 Sprain of calcaneofibular li gament of right ankle, subsequent SP S93.411D [facility] [place] [address] [id number] [address] [place] [address] SP Dec, Post-traumatic stress disord er F43.10 and Major depressive SP recurrent, moderate F33.1 [facility] [place] [address] [id number] [address] [place] [address] SP 13 Dec, 2016 Sprain of calcaneofibular li gament of right ankle, subsequent SP S93.411D [place] [address] [id number] [address] [place] [address] SP 12 Dec, 2016 Hyperlipidemia E78.5 SP [place] [address] [facility] [id number] [address] [place] [address] SP Dec, SP [place] [address] [place] [id number] [place] [address] SP Dec, Diabetes E11.9 ; Diabetic ne uropathy E11.40 ; Degenerative disc SP lumbar M51.36 ; Hyperlipidemia E78.5 ; Insomnia G47.00 ; CAD (coronary artery disease) I25.10 ; Major depressive disorder, recurrent, moderate F33.1 ; Post- traumatic stress disorder F43.10 and Other irritable bowel syndrome K58.8 [place] [address] [address] SP November, Diabetic neuropathy E11.40 a nd Hyperlipidemia E78.5 SP [place] [address] [phone] SP November, Degenerative disc disease, l umbar M51.36 SP [place] [address] [address] SP Oct, [place] [address] [address] SP Oct, Degenerative disc disease, l umbar M51.36 SP [place] [address] [place] [id number] [place] [address] SP Sep, Degenerative disc disease, l umbar M51.36 and HTN (hypertension) SP [place] [address] [phone] SP Sep, Diabetic neuropathy E11.40 ; HTN (hypertension) I10 ; SP disc disease, lumbar M51.36 ; Hyperlipidemia E78.5 ; Insomnia G47.00 ; CAD (coronary artery disease) I25.10 and Diabetes E11.9 [place] [address] [place] [id number] [address] [place] [phone] SP Aug, SP [place] [address] [place] [id number] [place] [phone] SP Aug, Type 2 diabetes mellitus wit h hyperglycemia E11.65 SP [facility] [place] [address] [facility] [id number] [address] [place] [address] SP Aug, SP [facility] [place] [address] [facility] [id number] [address] [place] [address] SP Jul, SP [facility] [place] [address] [facility] [id number] [address] [place] [address] SP Jul, SP [facility] [place] [address] [facility] [id number] [address] [place] [address] SP Jun, SP [facility] [place] [address] [facility] [id number] [address] [place] [address] SP Jun, SP [facility] [place] [address] [facility] [id number] [address] [place] [phone] SP Jun, SP [facility] [place] [address] [facility] [id number] [address] [place] [address] SP Jun, SP [facility] [place] [address] [facility] [id number] [address] [place] [phone] SP May, Major depressive disorder, r ecurrent episode, moderate F33.1 and SPtraumatic stress disorder F43.10 [place] [address] [place] [id number] [address] [place] [address] SP May, Major depressive disorder, r ecurrent episode, moderate F33.1 and SPtraumatic stress disorder F43.10 [facility] [place] [address] [facility] [id number] [address] [place] [address] SP May, Diabetes E11.9 ; Diabetic ne uropathy E11.40 ; HTN (hypertension) SP ; Gastritis K29.70 ; Hyperlipidemia E78.5 ; Insomnia G47.00 and Major depressive disorder, recurrent, moderate F33.1 [facility] [place] [address] [facility] [id number] [address] [place] [address] SP May, Major depressive disorder, r ecurrent episode, moderate F33.1 SP [place] [address] [facility] [id number] [address] [place] [address] SP Apr, SP [place] [address] [place] [id number] [place] [phone] SP Apr, Major depressive disorder, r ecurrent episode, moderate F33.1 and SPtraumatic stress disorder F43.10 [place] [address] [place] [id number] [place] [address] SP Apr, Diabetes E11.9 ; Diabetic ne uropathy E11.40 ; Degenerative disc SP lumbar M51.36 ; HTN (hypertension) I10 ; Hyperlipidemia E78.5 ; Chronic pain G89.29 ; CAD (coronary artery disease) I25.10 and Major depressive disorder, recurrent, moderate F33.1 [place] [address] [place] [id number] [place] [address] SP Apr, Major depressive disorder, r ecurrent episode, moderate F33.1 and SPtraumatic stress disorder F43.10 [place] [address] [place] [id number] [place] [phone] SP Apr, Major depressive disorder, r ecurrent episode, moderate F33.1 and SPtraumatic stress disorder F43.10 [place] [address] [place] [id number] [address] [place] [address] SP Apr, Major depressive disorder, r ecurrent episode, moderate F33.1 and SP episodic mood disorder F39 [place] [address] [place] [id number] [address] [place] [address] SP Apr, Chronic pain G89.29 ; Diabet ic neuropathy E11.40 ; HTN SP I10 ; Insomnia G47.00 ; CAD (coronary artery disease) I25.10 ; Hyperlipidemia E78.5 ; Degenerative disc disease, lumbar M51.36 ; Diabetes E11.9 and Gastritis K29.70 [place] [address] [place] [id number] [address] [place] [address] SP Sep, SP [place] [address] [place] [id number] [place] [address] [place] [address] SP Aug, SP [place] [address] [address] SP Jul, Major depressive disorder, r ecurrent episode, moderate F33.1 SP [facility] [place] [address] [phone] SP Jul, Unspecified episodic mood di sorder F39 SP [facility] [place] [address] [id number] SP Jul, SP [place] [address] [address] SP Jul, SP [place] [address] [id number] SP Jul, SP [place] [address] [address] SP Jul, Type 2 diabetes mellitus wit h hyperglycemia E11.65 ; Diabetic SP E11.40 ; Degenerative disc disease, lumbar M51.36 ; HTN (hypertension) I10 ; Gastritis K29.70 ; Hyperlipidemia E78.5 and CAD (coronary artery disease) I25.10 [place] [address] [phone] SP Jul, Severe episode of recurrent major depressive disorder, without SP features F33.2 [place] [address] [address] SP Jul, SP [place] [address] [address] SP Jun, SP [place] [address] [address] SP Jun, Diabetes E11.9 ; Diabetic ne uropathy E11.40 ; Degenerative disc SP lumbar M51.36 ; HTN (hypertension) I10 ; Gastritis K29.70 ; Hyperlipidemia E78.5 ; Unspecified episodic mood disorder F39 ; Depression F32.9 and CAD (coronary artery disease) I25.10 [facility], [place] [address] [facility] [id number] [place] [id number] SP Jun, SP [facility], [place] [address] [facility] [id number] [address] [place] [id number] SP Jun, SP [facility] [place] [address] [facility] [id number] [place] [phone] SP Jun, Diabetes E11.9 ; Diabetic ne uropathy E11.40 ; Degenerative disc SP lumbar M51.36 ; HTN (hypertension) I10 ; Gastritis K29.70 ; Chronic pain G89.29 ; Insomnia G47.00 and Unspecified episodic mood disorder F39 [place] [id number] [facility] [id number] [place] [id number] SP May, Diabetic neuropathy E11.40 ; Degenerative disc disease, lumbar SP ; HTN (hypertension) I10 ; Gastritis K29.70 ; Hyperlipidemia E78.5 ; Chronic pain G89.29 ; Insomnia G47.00 ; Unspecified episodic mood disorder F39 ; Diabetes E11.9 ; CAD (coronary artery disease) I25.10 and H/O Gram positive sepsis Z86.19 [place] [id number] [facility] [id number] [address] [place] [id number] SP May, SP [facility] [place] [address] [place] [id number] [place] [phone] SP May, SP [facility], [place] [address] [facility] [id number] [address] [place] [phone] SP May, SP [facility], [place] [address] [facility] [id number] [address] [place] [phone] SP May, SP [facility], [place] [address] [facility] [id number] [address] [place] [phone] SP May, UTI (urinary tract infection ) N39.0 ; Diabetes E11.9 ; Diabetic SP E11.40 ; Hyperlipidemia E78.5 and Chronic pain G89.29 [place] [address] [place] [id number] [place] [address] SP May, Insomnia, unspecified G47.00 and Chronic pain G89.29 SP [facility], [place] [address] [facility] [id number] [address] [place] [id number] SP May, SP [facility], [place] [address] [facility] [id number] [address] [place] [phone] SP May, SP [facility], [place] [address] [facility] [id number] [address] [place] [phone] SP May, SP [facility], [place] [address] [facility] [id number] [place] [phone] SP Apr, Insomnia, unspecified G47.00 ; Chronic pain G89.29 and SP episodic mood disorder F39 [facility] [place] [address] [facility] [id number] [place] [phone] SP Apr, Unspecified episodic mood di sorder F39 SP [facility], [place] [address] [facility] [id number] [address] [place] [phone] SP Apr, Major depression F32.9 SP [facility], [place] [address] [place] [id number] [place] [phone] SP Apr, SP [facility], [place] [address] [place] [id number] [address] [place] [address] SP Apr, Diabetes E11.9 ; Diabetic ne uropathy E11.40 ; Degenerative disc SP lumbar M51.36 ; HTN (hypertension) I10 ; Gastritis K29.70 ; Hyperlipidemia E78.5 ; Chronic pain G89.29 and Insomnia G47.00 [facility], [place] [address] [facility] [id number] [address] [place] [id number] SP Mar, SP [facility], [place] [address] [place] [id number] [address] [place] [phone] SP Mar, SP [facility], [place] [address] [place] [id number] [place] [phone] SP Mar, SP [facility], [place] [address] [facility] [id number] [address] [place] [address] SP Mar, Diabetes mellitus 250.00 ; D iabetic neuropathy 250.60 ; CAD SP artery disease) 414.00 ; Degenerative disc disease, lumbar 722.52 ; Gastritis 535.50 and Insomnia 780.52 [facility], [place] [address] [facility] [id number] [address] [place] [address] SP Mar, Diabetes mellitus 250.00 ; D egenerative disc disease, lumbar SP ; Essential hypertension 401.9 ; Gastritis 535.50 and Chronic pain 338.29 [place] [address] [place] [id number] [place] [phone] SP Feb, [facility] [id number] [place] [phone] SP Feb, [facility] [address] [place] [id number] [place] [phone] SP Jan, [facility] [address] [id number] [place] [address] SP Jan, Diabetes mellitus 250.00 ; D iabetic neuropathy 250.60 ; SP disc disease, lumbar 722.52 ; CAD (coronary artery disease) 414.00 ; Essential hypertension 401.9 ; Gastritis 535.50 ; Hyperlipidemia 272.4 and Distal end of ulna fracture, closed 813.43 [place] [address] [place] [id number] [address] [place] [id number] SP Dec, Wrist pain 719.43 and Diabet es mellitus 250.00 SP [facility], [place] [address] [facility] [id number] [address] [place] [id number] SP May, [facility] [address] [place] [id number] [address] [place] [phone] SP Dec, [facility] [address] [place] [id number] [address] [place] [phone] SP November, [facility] [address] [place] [id number] [place] [address], [place] [phone] SP 16 Oct, 2009 SP [facility] [address] [id number] [address] [place] [address], [place] [phone] SP 17 Sep, 2009 SP [facility] [address] [id number] [address] [place] [address], [place] [phone] SP 11 Sep, 2009 SP [facility] [address] [id number] [address] [place] [address], [place] [phone] SP Jun, SP [facility] [address] [id number] [address] [place] [address], [place] [phone] SP Jun, SP [facility] [address] [id number] [address] [place] [address], [place] [id number] SP Jun, SP [facility] [address] [id number] [address] [place] [address], [place] [id number] SP Jun, SP [facility] [address] [id number] [address] [place] [phone] SP Jun, SP [facility] [address] [id number] [address] [place] [address], [place] [id number] SP Jun, SP [facility] [address] [id number] [address] [place] [address], [place] [phone] SP Jun, SP [facility] [address] [id number] [address] [place] [address], [place] [phone] SP May, SP [facility] [address] [id number] [address] [place] [phone] SP May, SP [facility] [address] [id number] [address] [place] [address], [place] [phone] SP May, SP [facility] [address] [id number] [address] [place] [address], [place] [id number] SP May, SP [facility] [address] [id number] [address] [place] [id number] SP Apr, SP [facility] [place] [facility] [address] [facility] [id number] [address] [place] [id number] SP Apr, SP [facility], [place] [address] [facility] [id number] [address] [place] [phone] SP Apr, SP [facility] [place] [address] [facility] [id number] [address] [place] [id number] SP Mar, [facility] [address] [facility] [id number] [address] [place] [phone] SP Dec, SP IMMUNIZATIONS No Known Immunizations [...]
--- OUTSIDE RECORDS SUMMARY | 2019-06-14 01:33 | XMS REPORT ---
Author Author JALEN PEREZ POS Organization [facility] SP Address [address] [place] [address] SP Care Team Providers Care Addiction Counselor Name Role Phone POS RISSAKARTIKFLAQUITOY Unavailable SP PROBLEMS Type Condition ICD9-CM Code [id number] Code Onset Dates Condition S tatus SNOMED POS Problem Type 2 diabetes mellitus with hyperglycemia E11.65 Active POS Problem Major depressive disorder, recurrent episode, moderate F33.1 Active SP Problem Obsessive-compulsive disorder, unspecified type F4 2.9 Active SP Problem Ataxia R27.0 Active [id number] SP Problem Falls frequently R29.6 Active [id number] SP Problem Type 2 diabetes mellitus with other diab etic neurological complication SP E11.49 Active 76523768 SP Problem 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 Active 403407699 SP Problem History of pulmonary embolism Z86.711 Active 160715387 SP Problem Type 2 diabetes mellitus with other diabetic kid allen complication SP Active 81128044 SP Problem Insomnia G47.00 Active 068125107 SP Problem Degenerative disc disease, lumbar M51.36 Active 24107507 SP Problem HTN (hypertension) I10 Active 3 3777759 SP Problem Hyperlipidemia E78.5 Active 54795 004 SP Problem CAD (coronary artery disease) I25.10 Active 76544681 SP Problem Chronic pain G89.29 Active 8970777 1 SP Problem Post-traumatic stress disorder F43.10 Active 90299496 SP ALLERGIES No Information ENCOUNTERS Encounter Location Date Diagnosis POS [facility] [address] [facility] [id number] [address] [place] [phone] SP Apr, SP [facility] [address] [facility] [id number] [address] [place] [phone] SP Apr, SP [facility] [address] [facility] [id number] [address] [place] [phone] SP Mar, Chronic pain G89.29 SP [facility] [address] [facility] [id number] [address] [place] [phone] SP Feb, Type 2 diabetes mellitus wit h other diabetic neurological SP E11.49 ; 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.29 ; Degenerative disc disease, lumbar M51.36 and Chronic pain G89.29 [facility] [address] [facility] [id number] [address] [place] [phone] SP Jan, SP [facility] [address] [id number] [address] [place] [phone] SP Jan, SP [facility] [address] [facility] [id number] [address] [place] [phone] SP Jan, SP [facility] [address] [facility] [id number] [address] [place] [phone] SP Jan, SP [facility] [address] [facility] [id number] [address] [place] [phone] SP Jan, SP [facility] [address] [facility] [id number] [address] [place] [phone] SP Jan, SP [facility] [address] [facility] [id number] [address] [place] [phone] SP Jan, Slurred speech R47.81 ; Atax ia R27.0 and Left arm weakness SP [facility] [address] [id number] [address] [place] [phone] SP Jan, SP [facility] [address] [facility] [id number] [address] [place] [phone] SP Jan, Type 2 diabetes mellitus wit h hyperglycemia E11.65 and SP vomiting with nausea, unspecified vomiting type R11.2 [facility] [address] [facility] [id number] [address] [place] [phone] SP Dec, CAD (coronary artery disease ) I25.10 and Atypical chest pain SP [facility] [address] [facility] [id number] [address] [place] [phone] SP Dec, SP [facility] [address] [facility] [id number] [address] [place] [phone] SP Dec, Diabetes E11.9 ; Type 2 diab etes mellitus with hyperglycemia SP and Intractable vomiting with nausea, unspecified vomiting type R11.2 [facility] [address] [facility] [id number] [address] [place] [phone] SP Dec, Chronic pain G89.29 SP [facility] [address] [facility] [id number] [address] [place] [phone] SP November, SP [facility] [address] [facility] [id number] [address] [place] [phone] SP November, Diabetes E11.9 ; CAD (trinidad ry artery disease) I25.10 ; Atypical SP pain R07.89 ; Type 2 diabetes mellitus with hyperglycemia E11.65 ; 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.29 ; 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 and Chronic pain G89.29 [facility] [address] [facility] [id number] [address] [place] [phone] SP Oct, SP [facility] [address] [facility] [id number] [address] [place] [phone] SP Oct, Chronic pain G89.29 SP [facility] [address] [facility] [id number] [address] [place] [phone] SP Sep, Diabetes E11.9 SP [facility] [address] [facility] [id number] [address] [place] [phone] SP Sep, Chronic pain G89.29 SP [facility] [address] [facility] [id number] [address] [place] [phone] SP Sep, SP [facility] [address] [facility] [id number] [address] [place] [phone] SP Sep, Falls frequently R29.6 ; Elier g term 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.4 SP Type 2 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 E11.49 [facility] [address] [facility] [id number] [address] [place] [phone] SP Sep, SP [facility] [address] [facility] [id number] [address] [place] [phone] SP Sep, Diabetes E11.9 SP [facility] [address] [facility] [id number] [address] [place] [phone] SP Aug, SP [facility] [address] [facility] [id number] [address] [place] [phone] SP Aug, Chronic pain G89.29 SP [facility] [address] [facility] [id number] [address] [place] [phone] SP Aug, SP [facility] [address] [facility] [id number] [address] [place] [phone] SP Aug, Chronic pain G89.29 SP [facility] [address] [facility] [id number] [address] [place] [phone] SP Jul, SP [facility] [address] [facility] [id number] [address] [place] [phone] SP Jul, Diabetes E11.9 and Type 2 di abetes mellitus with other diabetic SP complication E11.29 [facility] [address] [facility] [id number] [address] [place] [phone] SP Jul, Type 2 diabetes mellitus wit h other diabetic kidney complication SP [facility] [address] [facility] [id number] [address] [place] [phone] SP Jul, SP [facility] [address] [facility] [id number] [address] [place] [phone] SP Jul, Chronic pain G89.29 SP [facility] [address] [facility] [id number] [address] [place] [phone] SP Jun, Diabetes E11.9 SP [facility] [address] [facility] [id number] [address] [place] [phone] SP Jun, Chronic pain G89.29 SP [facility] [address] [facility] [id number] [address] [place] [phone] SP Jun, Diabetes E11.9 ; Atypical ch est pain R07.89 ; retirement current SP of insulin Z79.4 ; 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.29 ; Type 2 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 E11.49 ; History of pulmonary embolism Z86.711 and History of CVA (cerebrovascular accident) Z86.73 [facility] [address] [facility] [id number] [address] [place] [phone] SP May, SP [facility] [address] [facility] [id number] [address] [place] [phone] SP May, Chronic pain G89.29 SP [facility] [address] [facility] [id number] [address] [place] [phone] SP Apr, Chronic pain G89.29 SP [facility] [address] [facility] [id number] [address] [place] [phone] SP Apr, SP [facility] [address] [facility] [id number] [address] [place] [phone] SP Mar, Chronic pain G89.29 SP [facility] [address] [facility] [id number] [address] [place] [phone] SP Mar, Diabetes E11.9 SP [facility] [address] [facility] [id number] [address] [place] [phone] SP Mar, SP [facility] [address] [facility] [id number] [address] [place] [phone] SP Mar, Degenerative disc disease, l umbar M51.36 SP [facility] [address] [facility] [id number] [address] [place] [phone] SP Feb, Diabetes E11.9 SP [facility] [address] [facility] [id number] [address] [place] [phone] SP Feb, Diabetes E11.9 [facility] [place] [address] [id number] [address] [place] [phone] SP 16 Feb, 2017 Diabetes E11.9 ; HTN (hypert ension) I10 ; Diabetic neuropathy SP and Leg cramps R25.2 [facility] [address] [id number] [address] [place] [phone] SP 15 Feb, 2017 Sprain of calcaneofibular li gament of right ankle, subsequent SP S93.411D ; Major depressive disorder, recurrent episode, moderate F33.1 ; Diabetes E11.9 ; Hyperlipidemia E78.5 ; Post-traumatic stress disorder F43.10 and Other irritable bowel syndrome K58.8 [facility] [address] [id number] [address] [place] [phone] SP 14 Feb, 2017 Major depressive disorder, r ecurrent episode, moderate F33.1 ; SPtraumatic stress disorder F43.10 and Obsessive-compulsive disorder, unspecified type F42.9 [facility] [address] [id number] [address] [place] [phone] SP Feb, SP [facility] [address] [id number] [address] [place] [phone] SP Feb, Post-traumatic stress disord er F43.10 and Major depressive SP recurrent, moderate F33.1 [facility] [place] [address] [id number] [address] [place] [phone] SP Feb, Diabetes E11.9 SP [facility] [address] [id number] [address] [place] [phone] SP Feb, Degenerative disc disease, l umbar M51.36 SP [facility] [place] [address] [id number] [address] [place] [phone] SP Feb, Post-traumatic stress disord er F43.10 and Major depressive SP recurrent, moderate F33.1 [facility] [place] [address] [id number] [address] [place] [phone] SP Feb, SP [facility] [place] [address] [id number] [address] [place] [phone] SP Feb, Diabetes E11.9 SP [facility] [address] [id number] [address] [place] [phone] SP Jan, Diabetes E11.9 SP [facility] [address] [id number] [address] [place] [phone] SP Jan, Post-traumatic stress disord er F43.10 and Major depressive SP recurrent, moderate F33.1 [facility] [address] [id number] [address] [place] [phone] SP Jan, Diabetes E11.9 SP [facility] [address] [id number] [address] [place] [phone] SP Jan, Diabetes E11.9 SP [facility] [address] [id number] [address] [place] [phone] SP Jan, SP [facility] [address] [id number] [address] [place] [phone] SP Jan, SP [facility] [address] [id number] [address] [place] [phone] SP Jan, Post-traumatic stress disord er F43.10 and Major depressive SP recurrent, moderate F33.1 [facility] [address] [id number] [address] [place] [phone] SP Jan, SP [facility] [address] [id number] [address] [place] [phone] SP Jan, Major depressive disorder, r ecurrent episode, moderate F33.1 ; SPtraumatic stress disorder F43.10 and Obsessive-compulsive disorder, unspecified type F42.9 [facility] [address] [id number] [address] [place] [phone] SP Jan, SP [facility] [address] [facility] [id number] [address] [place] [phone] SP Jan, Diabetes E11.9 SP [facility] [address] [id number] [address] [place] [phone] SP Jan, SP [facility] [address] [id number] [address] [place] [phone] SP Jan, Sprain of calcaneofibular li gament of right ankle, subsequent SP S93.411D [facility] [address] [id number] [address] [place] [phone] SP Jan, Post-traumatic stress disord er F43.10 and Major depressive SP recurrent, moderate F33.1 [facility] [address] [id number] [address] [place] [phone] SP Jan, Diabetes E11.9 SP [facility] [address] [id number] [address] [place] [phone] SP 16 Dec, 2016 Major depressive disorder, r ecurrent episode, moderate F33.1 ; SPtraumatic stress disorder F43.10 and Obsessive-compulsive disorder, unspecified type F42.9 [facility] [address] [id number] [address] [place] [phone] SP 15 Dec, 2016 SP [facility] [address] [id number] [address] [place] [phone] SP 14 Dec, 2016 Sprain of calcaneofibular li gament of right ankle, subsequent SP S93.411D [facility] [address] [id number] [address] [place] [phone] SP Dec, Post-traumatic stress disord er F43.10 and Major depressive SP recurrent, moderate F33.1 [facility] [address] [id number] [address] [place] [phone] SP 13 Dec, 2016 Sprain of calcaneofibular li gament of right ankle, subsequent SP S93.411D [facility] [place] [address] [id number] [address] [place] [phone] SP 12 Dec, 2016 Hyperlipidemia E78.5 SP [facility] [address] [facility] [id number] [address] [place] [phone] SP Dec, SP [facility] [place] [address] [place] [id number] [place] [phone] SP Dec, Diabetes E11.9 ; Diabetic ne uropathy E11.40 ; Degenerative disc SP lumbar M51.36 ; Hyperlipidemia E78.5 ; Insomnia G47.00 ; CAD (coronary artery disease) I25.10 ; Major depressive disorder, recurrent, moderate F33.1 ; Post- traumatic stress disorder F43.10 and Other irritable bowel syndrome K58.8 [facility] [address] [phone] SP November, Diabetic neuropathy E11.40 a nd Hyperlipidemia E78.5 SP [facility] [address] [phone] SP November, Degenerative disc disease, l umbar M51.36 SP [facility] [address] [phone] SP Oct, [place] [address] [phone] SP Oct, Degenerative disc disease, l umbar M51.36 SP [facility] [place] [address] [place] [id number] [place] [phone] SP Sep, Degenerative disc disease, l umbar M51.36 and HTN (hypertension) SP [facility] [address] [phone] SP Sep, Diabetic neuropathy E11.40 ; HTN (hypertension) I10 ; SP disc disease, lumbar M51.36 ; Hyperlipidemia E78.5 ; Insomnia G47.00 ; CAD (coronary artery disease) I25.10 and Diabetes E11.9 [facility] [address] [place] [id number] [address] [place] [phone] SP Aug, SP [facility] [place] [address] [place] [id number] [place] [phone] SP Aug, Type 2 diabetes mellitus wit h hyperglycemia E11.65 SP [facility] [address] [facility] [id number] [address] [place] [phone] SP Aug, SP [facility] [address] [facility] [id number] [address] [place] [phone] SP Jul, SP [facility] [address] [facility] [id number] [address] [place] [phone] SP Jul, SP [facility] [address] [facility] [id number] [address] [place] [phone] SP Jun, SP [facility] [address] [facility] [id number] [address] [place] [phone] SP Jun, SP [facility] [address] [facility] [id number] [address] [place] [phone] SP Jun, SP [facility] [address] [facility] [id number] [address] [place] [phone] SP Jun, SP [facility] [address] [facility] [id number] [address] [place] [phone] SP May, Major depressive disorder, r ecurrent episode, moderate F33.1 and SPtraumatic stress disorder F43.10 [facility] [place] [address] [place] [id number] [address] [place] [phone] SP May, Major depressive disorder, r ecurrent episode, moderate F33.1 and SPtraumatic stress disorder F43.10 [facility] [address] [facility] [id number] [address] [place] [phone] SP May, Diabetes E11.9 ; Diabetic ne uropathy E11.40 ; HTN (hypertension) SP ; Gastritis K29.70 ; Hyperlipidemia E78.5 ; Insomnia G47.00 and Major depressive disorder, recurrent, moderate F33.1 [facility] [address] [facility] [id number] [address] [place] [phone] SP May, Major depressive disorder, r ecurrent episode, moderate F33.1 SP [facility] [place] [address] [facility] [id number] [address] [place] [phone] SP Apr, SP [facility] [address] [place] [id number] [place] [phone] SP Apr, Major depressive disorder, r ecurrent episode, moderate F33.1 and SPtraumatic stress disorder F43.10 [facility] [place] [address] [place] [id number] [place] [address] SP Apr, Diabetes E11.9 ; Diabetic ne uropathy E11.40 ; Degenerative disc SP lumbar M51.36 ; HTN (hypertension) I10 ; Hyperlipidemia E78.5 ; Chronic pain G89.29 ; CAD (coronary artery disease) I25.10 and Major depressive disorder, recurrent, moderate F33.1 [facility] [place] [address] [place] [id number] [place] [phone] SP Apr, Major depressive disorder, r ecurrent episode, moderate F33.1 and SPtraumatic stress disorder F43.10 [facility] [place] [address] [place] [id number] [place] [address] SP Apr, Major depressive disorder, r ecurrent episode, moderate F33.1 and SPtraumatic stress disorder F43.10 [facility] [address] [place] [id number] [address] [place] [id number] SP Apr, Major depressive disorder, r ecurrent episode, moderate F33.1 and SP episodic mood disorder F39 [place] [address] [place] [id number] [address] [place] [phone] SP Apr, Chronic pain G89.29 ; Diabet ic neuropathy E11.40 ; HTN SP I10 ; Insomnia G47.00 ; CAD (coronary artery disease) I25.10 ; Hyperlipidemia E78.5 ; Degenerative disc disease, lumbar M51.36 ; Diabetes E11.9 and Gastritis K29.70 [facility] [address] [place] [id number] [address] [place] [phone] SP Sep, SP [facility] [address] [place] [id number] [place] [address] [place] [address] SP Aug, SP [place] [address] [phone] SP Jul, Major depressive disorder, r ecurrent episode, moderate F33.1 SP [facility] [address] [phone] SP Jul, Unspecified episodic mood di sorder F39 SP [facility] [address] [phone] SP Jul, SP [place] [address] [phone] SP Jul, SP [place] [address] [phone] SP Jul, SP [facility] [place] [address] [address] SP Jul, Type 2 diabetes mellitus wit h hyperglycemia E11.65 ; Diabetic SP E11.40 ; Degenerative disc disease, lumbar M51.36 ; HTN (hypertension) I10 ; Gastritis K29.70 ; Hyperlipidemia E78.5 and CAD (coronary artery disease) I25.10 [place] [address] [address] SP Jul, Severe episode of recurrent major depressive disorder, without SP features F33.2 [facility] [place] [address] [address] SP Jul, SP [facility] [address] [address] SP Jun, SP [place] [address] [address] SP Jun, Diabetes E11.9 ; Diabetic ne uropathy E11.40 ; Degenerative disc SP lumbar M51.36 ; HTN (hypertension) I10 ; Gastritis K29.70 ; Hyperlipidemia E78.5 ; Unspecified episodic mood disorder F39 ; Depression F32.9 and CAD (coronary artery disease) I25.10 [facility] [address] [facility] [id number] [address] [place] [phone] SP Jun, SP [facility] [address] [facility] [id number] [address] [place] [phone] SP Jun, SP [facility] [address] [facility] [id number] [place] [phone] SP Jun, Diabetes E11.9 ; Diabetic ne uropathy E11.40 ; Degenerative disc SP lumbar M51.36 ; HTN (hypertension) I10 ; Gastritis K29.70 ; Chronic pain G89.29 ; Insomnia G47.00 and Unspecified episodic mood disorder F39 [place] [address] [facility] [id number] [place] [phone] SP May, Diabetic neuropathy E11.40 ; Degenerative disc disease, lumbar SP ; HTN (hypertension) I10 ; Gastritis K29.70 ; Hyperlipidemia E78.5 ; Chronic pain G89.29 ; Insomnia G47.00 ; Unspecified episodic mood disorder F39 ; Diabetes E11.9 ; CAD (coronary artery disease) I25.10 and H/O Gram positive sepsis Z86.19 [place] [address] [facility] [id number] [address] [place] [phone] SP May, SP [facility] [address] [place] [id number] [place] [phone] SP May, SP [facility] [address] [facility] [id number] [address] [place] [phone] SP May, SP [facility] [address] [facility] [id number] [address] [place] [phone] SP May, SP [facility] [address] [facility] [id number] [address] [place] [phone] SP May, UTI (urinary tract infection ) N39.0 ; Diabetes E11.9 ; Diabetic SP E11.40 ; Hyperlipidemia E78.5 and Chronic pain G89.29 [place] [address] [place] [id number] [place] [address] SP May, Insomnia, unspecified G47.00 and Chronic pain G89.29 SP [facility] [address] [facility] [id number] [address] [place] [phone] SP May, SP [facility] [address] [facility] [id number] [address] [place] [phone] SP May, SP [facility] [address] [facility] [id number] [address] [place] [phone] SP May, SP [facility] [address] [facility] [id number] [place] [phone] SP Apr, Insomnia, unspecified G47.00 ; Chronic pain G89.29 and SP episodic mood disorder F39 [facility] [address] [facility] [id number] [place] [phone] SP Apr, Unspecified episodic mood di sorder F39 SP [facility] [address] [facility] [id number] [address] [place] [phone] SP Apr, Major depression F32.9 SP [facility] [address] [place] [id number] [place] [phone] SP Apr, SP [facility] [address] [id number] [place] [phone] SP Apr, Diabetes E11.9 ; Diabetic ne uropathy E11.40 ; Degenerative disc SP lumbar M51.36 ; HTN (hypertension) I10 ; Gastritis K29.70 ; Hyperlipidemia E78.5 ; Chronic pain G89.29 and Insomnia G47.00 [facility] [address] [facility] [id number] [address] [place] [phone] SP Mar, SP [facility] [address] [id number] [place] [phone] SP Mar, SP [facility] [address] [id number] [place] [phone] SP Mar, SP [facility] [facility] [address] [facility] [id number] [address] [place] [phone] SP Mar, Diabetes mellitus 250.00 ; D iabetic neuropathy 250.60 ; CAD SP artery disease) 414.00 ; Degenerative disc disease, lumbar 722.52 ; Gastritis 535.50 and Insomnia 780.52 [facility] [address] [facility] [id number] [address] [place] [phone] SP Mar, Diabetes mellitus 250.00 ; D egenerative disc disease, lumbar SP ; Essential hypertension 401.9 ; Gastritis 535.50 and Chronic pain 338.29 [place] [address] [place] [id number] [place] [phone] SP Feb, [facility] [place] [address] [place] [id number] [place] [phone] SP Feb, [facility] [place] [address] [place] [id number] [place] [phone] SP Jan, [facility] [place] [address] [place] [id number] [place] [phone] SP Jan, Diabetes mellitus 250.00 ; D iabetic neuropathy 250.60 ; SP disc disease, lumbar 722.52 ; CAD (coronary artery disease) 414.00 ; Essential hypertension 401.9 ; Gastritis 535.50 ; Hyperlipidemia 272.4 and Distal end of ulna fracture, closed 813.43 [place] [address] [place] [id number] [address] [place] [phone] SP Dec, Wrist pain 719.43 and Diabet es mellitus 250.00 SP [facility] [address] [facility] [id number] [address] [place] [phone] SP May, [facility] [place] [address] [place] [id number] [address] [place] [phone] SP Dec, [facility] [place] [address] [place] [id number] [address] [place] [phone] SP November, [facility] [place] [address] [place] [id number] [place] [address], [place] [id number] SP 16 Oct, 2009 SP [facility] [address] [id number] [address] [place] [address], [place] [id number] SP 17 Sep, 2009 SP [facility] [address] [id number] [address] [place] [address], [place] [id number] SP 11 Sep, 2009 SP [facility] [address] [id number] [address] [place] [address], [place] [id number] SP Jun, SP [facility] [address] [id number] [address] [place] [address], [place] [id number] SP Jun, SP [facility] [address] [id number] [address] [place] [address], [place] [id number] SP Jun, SP [facility] [address] [id number] [address] [place] [address], [place] [id number] SP Jun, SP [facility] [address] [id number] [address] [place] [phone] SP Jun, SP [facility] [address] [id number] [address] [place] [address], [place] [id number] SP Jun, SP [facility] [address] [id number] [address] [place] [address], [place] [id number] SP Jun, SP [facility] [address] [id number] [address] [place] [address], [place] [id number] SP May, SP [facility] [address] [id number] [address] [place] [phone] SP May, SP [facility] [address] [id number] [address] [place] [address], [place] [id number] SP May, SP [facility] [address] [id number] [address] [place] [address], [place] [id number] SP May, SP [facility] [address] [id number] [address] [place] [phone] SP Apr, SP [facility] [address] [facility] [id number] [address] [place] [phone] SP Apr, SP [facility] [address] [facility] [id number] [address] [place] [phone] SP Apr, SP [facility] [address] [facility] [id number] [address] [place] [phone] SP Mar, SP [facility] [address] [facility] [id number] [address] [place] [phone] SP Dec, SP IMMUNIZATIONS No Known Immunizations SOCIAL HISTORY Never Assessed REASON FOR VISIT Controlled Med Refill PLAN OF CARE VITAL SIGNS MEDICATIONS Medication Instructions Dosage Frequency Start Date End Date Duration S tatus POS Hydrocodone-Acetaminophen 10-325 MG Orally 2 times a day 1 tablet a s needed 12h SP Mar, 2018 28 days Active SP RESULTS No Results PROCEDURES [...]
--- OUTSIDE RECORDS SUMMARY | 2019-06-14 01:34 | XMS REPORT ---
Author Author JALEN PEREZ POS Organization [facility] SP Address [address] [place] [address] SP Care Team Providers [place] Name Role Phone POS RISSAKARTIKFLAQUITOY Unavailable SP PROBLEMS Type Condition ICD9-CM Code [id number] Code Onset Dates Condition S tatus SNOMED POS Problem Type 2 diabetes mellitus with hyperglycemia E11.65 Active POS Problem Major depressive disorder, recurrent episode, moderate F33.1 Active SP Problem Obsessive-compulsive disorder, unspecified type F4 2.9 Active SP Problem Ataxia R27.0 Active [id number] SP Problem Falls frequently R29.6 Active [id number] SP Problem Type 2 diabetes mellitus with other diab etic neurological complication SP E11.49 Active 60082868 SP 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 556318837 SP Problem History of pulmonary embolism Z86.711 Active 724722917 SP Problem Type 2 diabetes mellitus with other diabetic kid allen complication SP Active 64041982 SP Problem Insomnia G47.00 Active 599714984 SP Problem Degenerative disc disease, lumbar M51.36 Active 36277655 SP Problem HTN (hypertension) I10 Active 3 6326333 SP Problem Hyperlipidemia E78.5 Active 74653 004 SP Problem CAD (coronary artery disease) I25.10 Active 52239232 SP Problem Chronic pain G89.29 Active 0587046 1 SP Problem Post-traumatic stress disorder F43.10 Active 92581780 SP ALLERGIES No Information ENCOUNTERS Encounter Location Date Diagnosis POS [facility] [address] [facility] [id number] [address] [place] [phone] SP Apr, SP [facility] [address] [facility] [id number] [address] [place] [phone] SP Apr, SP [facility] [address] [facility] [id number] [address] [place] [phone] SP Mar, Chronic pain G89.29 SP [facility] [address] [facility] [id number] [address] [place] [phone] SP Feb, Type 2 diabetes mellitus wit h other diabetic neurological SP E11.49 ; 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.29 ; Degenerative disc disease, lumbar M51.36 and Chronic pain G89.29 [facility] [address] [facility] [id number] [address] [place] [phone] SP Jan, SP [facility] [address] [id number] [address] [place] [phone] SP Jan, SP [facility] [address] [facility] [id number] [address] [place] [phone] SP Jan, SP [facility] [address] [facility] [id number] [address] [place] [phone] SP Jan, SP [facility] [address] [facility] [id number] [address] [place] [phone] SP Jan, SP [facility] [address] [facility] [id number] [address] [place] [phone] SP Jan, SP [facility] [address] [facility] [id number] [address] [place] [phone] SP Jan, Slurred speech R47.81 ; Atax ia R27.0 and Left arm weakness SP [facility] [address] [id number] [address] [place] [phone] SP Jan, SP [facility] [address] [facility] [id number] [address] [place] [phone] SP Jan, Type 2 diabetes mellitus wit h hyperglycemia E11.65 and SP vomiting with nausea, unspecified vomiting type R11.2 [facility] [address] [facility] [id number] [address] [place] [phone] SP Dec, CAD (coronary artery disease ) I25.10 and Atypical chest pain SP [facility] [address] [facility] [id number] [address] [place] [phone] SP Dec, SP [facility] [address] [facility] [id number] [address] [place] [phone] SP Dec, Diabetes E11.9 ; Type 2 diab etes mellitus with hyperglycemia SP and Intractable vomiting with nausea, unspecified vomiting type R11.2 [facility] [address] [facility] [id number] [address] [place] [phone] SP Dec, Chronic pain G89.29 SP [facility] [address] [facility] [id number] [address] [place] [phone] SP November, SP [facility] [address] [facility] [id number] [address] [place] [phone] SP November, Diabetes E11.9 ; CAD ([place]in[place] ry artery disease) I25.10 ; Atypical SP pain R07.89 ; Type 2 diabetes mellitus with hyperglycemia E11.65 ; 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.29 ; 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 and Chronic pain G89.29 [facility] [address] [facility] [id number] [address] [place] [phone] SP Oct, SP [facility] [address] [facility] [id number] [address] [place] [phone] SP Oct, Chronic pain G89.29 SP [facility] [address] [facility] [id number] [address] [place] [id number] SP Sep, Diabetes E11.9 SP [facility] [address] [facility] [id number] [address] [place] [phone] SP Sep, Chronic pain G89.29 SP [facility] [address] [facility] [id number] [address] [place] [phone] SP Sep, SP [facility] [address] [facility] [id number] [address] [place] [phone] SP Sep, Falls frequently R29.6 ; Elier g term 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.4 SP Type 2 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 E11.49 [facility] [address] [facility] [id number] [address] [place] [phone] SP Sep, SP [facility] [address] [facility] [id number] [address] [place] [phone] SP Sep, Diabetes E11.9 SP [facility] [address] [facility] [id number] [address] [place] [phone] SP Aug, SP [facility] [address] [facility] [id number] [address] [place] [phone] SP Aug, Chronic pain G89.29 SP [facility] [address] [facility] [id number] [address] [place] [phone] SP Aug, SP [facility] [address] [facility] [id number] [address] [place] [phone] SP Aug, Chronic pain G89.29 SP [facility] [address] [facility] [id number] [address] [place] [phone] SP Jul, SP [facility] [address] [facility] [id number] [address] [place] [phone] SP Jul, Diabetes E11.9 and Type 2 di abetes mellitus with other diabetic SP complication E11.29 [facility] [address] [facility] [id number] [address] [place] [phone] SP Jul, Type 2 diabetes mellitus wit h other diabetic kidney complication SP [facility] [address] [facility] [id number] [address] [place] [phone] SP Jul, SP [facility] [address] [facility] [id number] [address] [place] [phone] SP Jul, Chronic pain G89.29 SP [facility] [address] [facility] [id number] [address] [place] [phone] SP Jun, Diabetes E11.9 SP [facility] [address] [facility] [id number] [address] [place] [phone] SP Jun, Chronic pain G89.29 SP [facility] [address] [facility] [id number] [address] [place] [phone] SP Jun, Diabetes E11.9 ; Atypical ch est pain R07.89 ; senior living current SP of insulin Z79.4 ; 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.29 ; Type 2 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 E11.49 ; History of pulmonary embolism Z86.711 and History of CVA (cerebrovascular accident) Z86.73 [facility] [address] [facility] [id number] [address] [place] [phone] SP May, SP [facility] [address] [facility] [id number] [address] [place] [phone] SP May, Chronic pain G89.29 SP [facility] [address] [facility] [id number] [address] [place] [phone] SP Apr, Chronic pain G89.29 SP [facility] [address] [facility] [id number] [address] [place] [phone] SP Apr, SP [facility] [address] [facility] [id number] [address] [place] [phone] SP Mar, Chronic pain G89.29 SP [facility] [address] [facility] [id number] [address] [place] [phone] SP Mar, Diabetes E11.9 SP [facility] [address] [facility] [id number] [address] [place] [phone] SP Mar, SP [facility] [address] [facility] [id number] [address] [place] [phone] SP Mar, Degenerative disc disease, l umbar M51.36 SP [facility] [address] [facility] [id number] [address] [place] [phone] SP Feb, Diabetes E11.9 SP [facility] [address] [facility] [id number] [address] [place] [phone] SP Feb, Diabetes E11.9 [facility] [address] [id number] [address] [place] [phone] SP 16 Feb, 2017 Diabetes E11.9 ; HTN (hypert ension) I10 ; Diabetic neuropathy SP and Leg cramps R25.2 [facility] [address] [id number] [address] [place] [phone] SP 15 Feb, 2017 Sprain of calcaneofibular li gament of right ankle, subsequent SP S93.411D ; Major depressive disorder, recurrent episode, moderate F33.1 ; Diabetes E11.9 ; Hyperlipidemia E78.5 ; Post-traumatic stress disorder F43.10 and Other irritable bowel syndrome K58.8 [facility] [address] [id number] [address] [place] [phone] SP 14 Feb, 2017 Major depressive disorder, r ecurrent episode, moderate F33.1 ; SPtraumatic stress disorder F43.10 and Obsessive-compulsive disorder, unspecified type F42.9 [place] [address] [id number] [address] [place] [phone] SP Feb, SP [facility] [address] [id number] [address] [place] [phone] SP Feb, Post-traumatic stress disord er F43.10 and Major depressive SP recurrent, moderate F33.1 [place] [address] [id number] [address] [place] [phone] SP Feb, Diabetes E11.9 SP [facility] [address] [id number] [address] [place] [phone] SP Feb, Degenerative disc disease, l umbar M51.36 SP [place] [address] [id number] [address] [place] [phone] SP Feb, Post-traumatic stress disord er F43.10 and Major depressive SP recurrent, moderate F33.1 [place] [address] [id number] [address] [place] [phone] SP Feb, SP [place] [address] [id number] [address] [place] [phone] SP Feb, Diabetes E11.9 SP [facility] [address] [id number] [address] [place] [phone] SP Jan, Diabetes E11.9 SP [facility] [address] [id number] [address] [place] [phone] SP Jan, Post-traumatic stress disord er F43.10 and Major depressive SP recurrent, moderate F33.1 [facility] [address] [id number] [address] [place] [phone] SP Jan, Diabetes E11.9 SP [facility] [address] [id number] [address] [place] [phone] SP Jan, Diabetes E11.9 SP [facility] [address] [id number] [address] [place] [phone] SP Jan, SP [facility] [address] [id number] [address] [place] [phone] SP Jan, SP [facility] [address] [id number] [address] [place] [phone] SP Jan, Post-traumatic stress disord er F43.10 and Major depressive SP recurrent, moderate F33.1 [facility] [address] [id number] [address] [place] [phone] SP Jan, SP [facility] [address] [id number] [address] [place] [phone] SP Jan, Major depressive disorder, r ecurrent episode, moderate F33.1 ; SPtraumatic stress disorder F43.10 and Obsessive-compulsive disorder, unspecified type F42.9 [facility] [address] [id number] [address] [place] [phone] SP Jan, SP [facility] [address] [facility] [id number] [address] [place] [phone] SP Jan, Diabetes E11.9 SP [facility] [address] [id number] [address] [place] [phone] SP Jan, SP [facility] [address] [id number] [address] [place] [phone] SP Jan, Sprain of calcaneofibular li gament of right ankle, subsequent SP S93.411D [facility] [address] [id number] [address] [place] [phone] SP Jan, Post-traumatic stress disord er F43.10 and Major depressive SP recurrent, moderate F33.1 [facility] [address] [id number] [address] [place] [phone] SP Jan, Diabetes E11.9 SP [facility] [address] [id number] [address] [place] [phone] SP 16 Dec, 2016 Major depressive disorder, r ecurrent episode, moderate F33.1 ; SPtraumatic stress disorder F43.10 and Obsessive-compulsive disorder, unspecified type F42.9 [facility] [address] [id number] [address] [place] [phone] SP 15 Dec, 2016 SP [place] [address] [id number] [address] [place] [phone] SP 14 Dec, 2016 Sprain of calcaneofibular li gament of right ankle, subsequent SP S93.411D [facility] [address] [id number] [address] [place] [phone] SP Dec, Post-traumatic stress disord er F43.10 and Major depressive SP recurrent, moderate F33.1 [facility] [address] [id number] [address] [place] [phone] SP 13 Dec, 2016 Sprain of calcaneofibular li gament of right ankle, subsequent SP S93.411D [place] [address] [id number] [address] [place] [phone] SP 12 Dec, 2016 Hyperlipidemia E78.5 SP [place] [address] [facility] [id number] [address] [place] [phone] SP Dec, SP [place] [address] [place] [id number] [place] [phone] SP Dec, Diabetes E11.9 ; Diabetic ne uropathy E11.40 ; Degenerative disc SP lumbar M51.36 ; Hyperlipidemia E78.5 ; Insomnia G47.00 ; CAD (coronary artery disease) I25.10 ; Major depressive disorder, recurrent, moderate F33.1 ; Post- traumatic stress disorder F43.10 and Other irritable bowel syndrome K58.8 [place] [address] [phone] SP November, Diabetic neuropathy E11.40 a nd Hyperlipidemia E78.5 SP [place] [address] [phone] SP November, Degenerative disc disease, l umbar M51.36 SP [place] [address] [phone] SP Oct, [place] [address] [phone] SP Oct, Degenerative disc disease, l umbar M51.36 SP [place] [address] [place] [id number] [place] [phone] SP Sep, Degenerative disc disease, l umbar M51.36 and HTN (hypertension) SP [place] [address] [phone] SP Sep, Diabetic neuropathy E11.40 ; HTN (hypertension) I10 ; SP disc disease, lumbar M51.36 ; Hyperlipidemia E78.5 ; Insomnia G47.00 ; CAD (coronary artery disease) I25.10 and Diabetes E11.9 [place] [address] [place] [id number] [address] [place] [phone] SP Aug, SP [place] [address] [place] [id number] [place] [phone] SP Aug, Type 2 diabetes mellitus wit h hyperglycemia E11.65 SP [facility] [address] [facility] [id number] [address] [place] [phone] SP Aug, SP [facility] [address] [facility] [id number] [address] [place] [phone] SP Jul, SP [facility] [address] [facility] [id number] [address] [place] [phone] SP Jul, SP [facility] [address] [facility] [id number] [address] [place] [phone] SP Jun, SP [facility] [address] [facility] [id number] [address] [place] [phone] SP Jun, SP [facility] [address] [facility] [id number] [address] [place] [phone] SP Jun, SP [facility] [address] [facility] [id number] [address] [place] [phone] SP Jun, SP [facility] [address] [facility] [id number] [address] [place] [phone] SP May, Major depressive disorder, r ecurrent episode, moderate F33.1 and SPtraumatic stress disorder F43.10 [place] [address] [place] [id number] [address] [place] [phone] SP May, Major depressive disorder, r ecurrent episode, moderate F33.1 and SPtraumatic stress disorder F43.10 [facility] [address] [facility] [id number] [address] [place] [phone] SP May, Diabetes E11.9 ; Diabetic ne uropathy E11.40 ; HTN (hypertension) SP ; Gastritis K29.70 ; Hyperlipidemia E78.5 ; Insomnia G47.00 and Major depressive disorder, recurrent, moderate F33.1 [facility] [address] [facility] [id number] [address] [place] [phone] SP May, Major depressive disorder, r ecurrent episode, moderate F33.1 SP [place] [address] [facility] [id number] [address] [place] [phone] SP Apr, SP [place] [address] [place] [id number] [place] [phone] SP Apr, Major depressive disorder, r ecurrent episode, moderate F33.1 and SPtraumatic stress disorder F43.10 [place] [address] [place] [id number] [place] [phone] SP Apr, Diabetes E11.9 ; Diabetic ne uropathy E11.40 ; Degenerative disc SP lumbar M51.36 ; HTN (hypertension) I10 ; Hyperlipidemia E78.5 ; Chronic pain G89.29 ; CAD (coronary artery disease) I25.10 and Major depressive disorder, recurrent, moderate F33.1 [place] [address] [place] [id number] [place] [phone] SP Apr, Major depressive disorder, r ecurrent episode, moderate F33.1 and SPtraumatic stress disorder F43.10 [place] [address] [place] [id number] [place] [phone] SP Apr, Major depressive disorder, r ecurrent episode, moderate F33.1 and SPtraumatic stress disorder F43.10 [place] [address] [place] [id number] [address] [place] [phone] SP Apr, Major depressive disorder, r ecurrent episode, moderate F33.1 and SP episodic mood disorder F39 [place] [address] [place] [id number] [address] [place] [phone] SP Apr, Chronic pain G89.29 ; Diabet ic neuropathy E11.40 ; HTN SP I10 ; Insomnia G47.00 ; CAD (coronary artery disease) I25.10 ; Hyperlipidemia E78.5 ; Degenerative disc disease, lumbar M51.36 ; Diabetes E11.9 and Gastritis K29.70 [place] [address] [place] [id number] [address] [place] [phone] SP Sep, SP [place] [address] [place] [id number] [place] [address] [place] [address] SP Aug, SP [place] [address] [phone] SP Jul, Major depressive disorder, r ecurrent episode, moderate F33.1 SP [facility] [address] [phone] SP Jul, Unspecified episodic mood di sorder F39 SP [facility] [address] [address] SP Jul, SP [place] [address] [address] SP Jul, SP [place] [address] [phone] SP Jul, SP [place] [address] [address] SP Jul, Type 2 diabetes mellitus wit h hyperglycemia E11.65 ; Diabetic SP E11.40 ; Degenerative disc disease, lumbar M51.36 ; HTN (hypertension) I10 ; Gastritis K29.70 ; Hyperlipidemia E78.5 and CAD (coronary artery disease) I25.10 [place] [address] [phone] SP Jul, Severe episode of recurrent major depressive disorder, without SP features F33.2 [place] [address] [address] SP Jul, SP [place] [address] [phone] SP Jun, SP [place] [address] [address] SP Jun, Diabetes E11.9 ; Diabetic ne uropathy E11.40 ; Degenerative disc SP lumbar M51.36 ; HTN (hypertension) I10 ; Gastritis K29.70 ; Hyperlipidemia E78.5 ; Unspecified episodic mood disorder F39 ; Depression F32.9 and CAD (coronary artery disease) I25.10 [facility] [address] [facility] [id number] [address] [place] [phone] SP Jun, SP [facility] [address] [facility] [id number] [address] [place] [phone] SP Jun, SP [facility] [address] [facility] [id number] [place] [phone] SP Jun, Diabetes E11.9 ; Diabetic ne uropathy E11.40 ; Degenerative disc SP lumbar M51.36 ; HTN (hypertension) I10 ; Gastritis K29.70 ; Chronic pain G89.29 ; Insomnia G47.00 and Unspecified episodic mood disorder F39 [place] [address] [facility] [id number] [place] [phone] SP May, Diabetic neuropathy E11.40 ; Degenerative disc disease, lumbar SP ; HTN (hypertension) I10 ; Gastritis K29.70 ; Hyperlipidemia E78.5 ; Chronic pain G89.29 ; Insomnia G47.00 ; Unspecified episodic mood disorder F39 ; Diabetes E11.9 ; CAD (coronary artery disease) I25.10 and H/O Gram positive sepsis Z86.19 [place] [address] [facility] [id number] [address] [place] [phone] SP May, SP [facility] [address] [place] [id number] [place] [phone] SP May, SP [facility] [address] [facility] [id number] [address] [place] [phone] SP May, SP [facility] [address] [facility] [id number] [address] [place] [phone] SP May, SP [facility] [address] [facility] [id number] [address] [place] [id number] SP May, UTI (urinary tract infection ) N39.0 ; Diabetes E11.9 ; Diabetic SP E11.40 ; Hyperlipidemia E78.5 and Chronic pain G89.29 [address] [id number] [place] [id number] SP May, Insomnia, unspecified G47.00 and Chronic pain G89.29 SP [facility] [address] [facility] [id number] [address] [place] [id number] SP May, SP [facility] [address] [facility] [id number] [address] [place] [phone] SP May, SP [facility] [address] [facility] [id number] [address] [place] [phone] SP May, SP [facility] [address] [facility] [id number] [place] [phone] SP Apr, Insomnia, unspecified G47.00 ; Chronic pain G89.29 and SP episodic mood disorder F39 [facility] [address] [facility] [facility] [id number] [place] [id number] SP Apr, Unspecified episodic mood di sorder F39 SP [facility] [address] [facility] [id number] [address] [place] [phone] SP Apr, Major depression F32.9 SP [facility] [address] [place] [id number] [place] [phone] SP Apr, SP [facility] [address] [place] [id number] [address] [place] [phone] SP Apr, Diabetes E11.9 ; Diabetic ne uropathy E11.40 ; Degenerative disc SP lumbar M51.36 ; HTN (hypertension) I10 ; Gastritis K29.70 ; Hyperlipidemia E78.5 ; Chronic pain G89.29 and Insomnia G47.00 [facility] [address] [facility] [id number] [address] [place] [phone] SP Mar, SP [facility] [address] [place] [id number] [address] [place] [phone] SP Mar, SP [facility] [address] [place] [id number] [place] [phone] SP Mar, SP [facility] [address] [facility] [id number] [address] [place] [phone] SP Mar, Diabetes mellitus 250.00 ; D iabetic neuropathy 250.60 ; CAD SP artery disease) 414.00 ; Degenerative disc disease, lumbar 722.52 ; Gastritis 535.50 and Insomnia 780.52 [facility] [address] [facility] [id number] [address] [place] [phone] SP Mar, Diabetes mellitus 250.00 ; D egenerative disc disease, lumbar SP ; Essential hypertension 401.9 ; Gastritis 535.50 and Chronic pain 338.29 [place] [address] [place] [id number] [place] [phone] SP Feb, [facility] [address] [address] [id number] [place] [phone] SP Feb, [facility] [address] [place] [id number] [place] [phone] SP Jan, [facility] [address] [address] [id number] [place] [phone] SP Jan, Diabetes mellitus 250.00 ; D iabetic neuropathy 250.60 ; SP disc disease, lumbar 722.52 ; CAD (coronary artery disease) 414.00 ; Essential hypertension 401.9 ; Gastritis 535.50 ; Hyperlipidemia 272.4 and Distal end of ulna fracture, closed 813.43 [place] [address] [place] [id number] [address] [place] [phone] SP Dec, Wrist pain 719.43 and Diabet es mellitus 250.00 SP [facility] [address] [facility] [id number] [address] [place] [phone] SP May, [facility] [address] [id number] [address] [place] [phone] SP Dec, [facility] [address] [place] [id number] [address] [place] [phone] SP November, [facility] [address] [place] [id number] [place] [address], [place] [phone] SP 16 Oct, 2009 SP [facility] [address] [id number] [address] [place] [address], [place] [address] SP 17 Sep, 2009 SP [facility] [address] [id number] [address] [place] [address], [place] [address] SP 11 Sep, 2009 SP [facility] [address] [id number] [address] [place] [address], [place] [id number] SP Jun, SP [facility] [address] [id number] [address] [place] [address], [place] [phone] SP Jun, SP [facility] [address] [id number] [address] [place] [address], [place] [address] SP Jun, SP [facility] [address] [id number] [address] [place] [address], [place] [address] SP Jun, SP [facility] [address] [id number] [address] [place] [phone] SP Jun, SP [facility] [address] [id number] [address] [place] [address], [place] [address] SP Jun, SP [facility] [address] [id number] [address] [place] [address], [place] [phone] SP Jun, SP [facility] [address] [id number] [address] [place] [address], [place] [address] SP May, SP [facility] [address] [id number] [address] [place] [phone] SP May, SP [facility] [address] [id number] [address] [place] [address], [place] [phone] SP May, SP [facility] [address] [id number] [address] [place] [address], [place] [address] SP May, SP [facility] [address] [id number] [address] [place] [phone] SP Apr, SP [facility] [address] [facility] [id number] [address] [place] [phone] SP Apr, SP [facility] [address] [facility] [id number] [address] [place] [phone] SP Apr, SP [facility] [address] [facility] [id number] [address] [place] [phone] SP Mar, [facility] [address] [facility] [id number] [address] [place] [phone] SP Dec, SP IMMUNIZATIONS No Known Immunizations [...]
--- OUTSIDE RECORDS SUMMARY | 2019-06-14 01:34 | XMS REPORT ---
Author Author JALEN PEREZ POS Organization [facility] SP Address [address] [place] [address] SP Care Team Providers Care Ironer Or Presser Name Role Phone POS RISSAKARTIKFLAQUITOY Unavailable SP PROBLEMS Type Condition ICD9-CM Code [id number] Code Onset Dates Condition S tatus SNOMED POS Problem Type 2 diabetes mellitus with hyperglycemia E11.65 Active POS Problem Major depressive disorder, recurrent episode, moderate F33.1 Active SP Problem Obsessive-compulsive disorder, unspecified type F4 2.9 Active SP Problem Ataxia R27.0 Active [id number] SP Problem Falls frequently R29.6 Active 279 392032 SP Problem Type 2 diabetes mellitus with other diab etic neurological complication SP E11.49 Active [id number] SP Problem continuous churn buttermaker 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.4 Active 279065474 SP Problem History of pulmonary embolism Z86.711 Active 717974464 SP Problem Type 2 diabetes mellitus with other diabetic kid allen complication SP Active 33015278 SP Problem Insomnia G47.00 Active 002030833 SP Problem Degenerative disc disease, lumbar M51.36 Active 55366270 SP Problem HTN (hypertension) I10 Active 3 8752192 SP Problem Hyperlipidemia E78.5 Active 58204 004 SP Problem CAD (coronary artery disease) I25.10 Active 70821078 SP Problem Chronic pain G89.29 Active 6522458 1 SP Problem Post-traumatic stress disorder F43.10 Active 59782555 SP ALLERGIES No Information ENCOUNTERS Encounter Location Date Diagnosis POS [facility] [address] [facility] [id number] [address] [place] [phone] SP Apr, SP [facility] [address] [facility] [id number] [address] [place] [phone] SP Apr, SP [facility] [address] [facility] [id number] [address] [place] [address] SP Mar, Chronic pain G89.29 SP [facility] [address] [facility] [id number] [address] [place] [phone] SP Feb, Type 2 diabetes mellitus wit h other diabetic neurological SP E11.49 ; 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.29 ; Degenerative disc disease, lumbar M51.36 and Chronic pain G89.29 [facility] [address] [facility] [id number] [address] [place] [phone] SP Jan, SP [facility] [address] [id number] [address] [place] [phone] SP Jan, SP [facility] [address] [facility] [id number] [address] [place] [phone] SP Jan, SP [facility] [address] [facility] [id number] [address] [place] [phone] SP Jan, SP [facility] [address] [facility] [id number] [address] [place] [phone] SP Jan, SP [facility] [address] [facility] [id number] [address] [place] [phone] SP Jan, SP [facility] [address] [facility] [id number] [address] [place] [address] SP Jan, Slurred speech R47.81 ; Atax ia R27.0 and Left arm weakness SP [facility] [address] [id number] [address] [place] [phone] SP Jan, SP [facility] [address] [facility] [id number] [address] [place] [address] SP Jan, Type 2 diabetes mellitus wit h hyperglycemia E11.65 and SP vomiting with nausea, unspecified vomiting type R11.2 [facility] [address] [facility] [id number] [address] [place] [address] SP Dec, CAD (coronary artery disease ) I25.10 and Atypical chest pain SP [facility] [address] [facility] [id number] [address] [place] [phone] SP Dec, SP [facility] [address] [facility] [id number] [address] [place] [address] SP Dec, Diabetes E11.9 ; Type 2 diab etes mellitus with hyperglycemia SP and Intractable vomiting with nausea, unspecified vomiting type R11.2 [facility] [address] [facility] [id number] [address] [place] [phone] SP Dec, Chronic pain G89.29 SP [facility] [address] [facility] [id number] [address] [place] [address] SP November, SP [facility] [address] [facility] [id number] [address] [place] [address] SP November, Diabetes E11.9 ; CAD (trin[place] ry artery disease) I25.10 ; Atypical SP pain R07.89 ; Type 2 diabetes mellitus with hyperglycemia E11.65 ; 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.29 ; continuous churn buttermaker 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.4 and Chronic pain G89.29 [facility] [address] [facility] [id number] [address] [place] [address] SP Oct, SP [facility] [address] [facility] [id number] [address] [place] [address] SP Oct, Chronic pain G89.29 SP [facility] [address] [facility] [id number] [address] [place] [address] SP Sep, Diabetes E11.9 SP [facility] [address] [facility] [id number] [address] [place] [phone] SP Sep, Chronic pain G89.29 SP [facility] [address] [facility] [id number] [address] [place] [phone] SP Sep, SP [facility] [address] [facility] [id number] [address] [place] [address] SP Sep, Falls frequently R29.6 ; Elier g term 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.4 SP Type 2 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 E11.49 [facility] [address] [facility] [id number] [address] [place] [phone] SP Sep, SP [facility] [address] [facility] [id number] [address] [place] [phone] SP Sep, Diabetes E11.9 SP [facility] [address] [facility] [id number] [address] [place] [phone] SP Aug, SP [facility] [address] [facility] [id number] [address] [place] [address] SP Aug, Chronic pain G89.29 SP [facility] [address] [facility] [id number] [address] [place] [phone] SP Aug, SP [facility] [address] [facility] [id number] [address] [place] [phone] SP Aug, Chronic pain G89.29 SP [facility] [address] [facility] [id number] [address] [place] [phone] SP Jul, SP [facility] [address] [facility] [id number] [address] [place] [phone] SP Jul, Diabetes E11.9 and Type 2 di abetes mellitus with other diabetic SP complication E11.29 [facility] [address] [facility] [id number] [address] [place] [phone] SP Jul, Type 2 diabetes mellitus wit h other diabetic kidney complication SP [facility] [address] [facility] [id number] [address] [place] [phone] SP Jul, SP [facility] [address] [facility] [id number] [address] [place] [address] SP Jul, Chronic pain G89.29 SP [facility] [address] [facility] [id number] [address] [place] [phone] SP Jun, Diabetes E11.9 SP [facility] [address] [facility] [id number] [address] [place] [address] SP Jun, Chronic pain G89.29 SP [facility] [address] [facility] [id number] [address] [place] [address] SP Jun, Diabetes E11.9 ; Atypical ch est pain R07.89 ; alf current SP of insulin Z79.4 ; 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.29 ; Type 2 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 E11.49 ; History of pulmonary embolism Z86.711 and History of CVA (cerebrovascular accident) Z86.73 [facility] [address] [facility] [id number] [address] [place] [address] SP May, SP [facility] [address] [facility] [id number] [address] [place] [address] SP May, Chronic pain G89.29 SP [facility] [address] [facility] [id number] [address] [place] [address] SP Apr, Chronic pain G89.29 SP [facility] [address] [facility] [id number] [address] [place] [address] SP Apr, SP [facility] [address] [facility] [id number] [address] [place] [address] SP Mar, Chronic pain G89.29 SP [facility] [address] [facility] [id number] [address] [place] [phone] SP Mar, Diabetes E11.9 SP [facility] [address] [facility] [id number] [address] [place] [phone] SP Mar, SP [facility] [address] [facility] [id number] [address] [place] [phone] SP Mar, Degenerative disc disease, l umbar M51.36 SP [facility] [address] [facility] [id number] [address] [place] [phone] SP Feb, Diabetes E11.9 SP [facility] [address] [facility] [id number] [address] [place] [address] SP Feb, Diabetes E11.9 [facility] [address] [id number] [address] [place] [phone] SP 16 Feb, 2017 Diabetes E11.9 ; HTN (hypert ension) I10 ; Diabetic neuropathy SP and Leg cramps R25.2 [facility] [address] [id number] [address] [place] [phone] SP 15 Feb, 2017 Sprain of calcaneofibular li gament of right ankle, subsequent SP S93.411D ; Major depressive disorder, recurrent episode, moderate F33.1 ; Diabetes E11.9 ; Hyperlipidemia E78.5 ; Post-traumatic stress disorder F43.10 and Other irritable bowel syndrome K58.8 [facility] [address] [id number] [address] [place] [address] SP 14 Feb, 2017 Major depressive disorder, r ecurrent episode, moderate F33.1 ; SPtraumatic stress disorder F43.10 and Obsessive-compulsive disorder, unspecified type F42.9 [facility] [address] [id number] [address] [place] [phone] SP Feb, SP [facility] [address] [id number] [address] [place] [address] SP Feb, Post-traumatic stress disord er F43.10 and Major depressive SP recurrent, moderate F33.1 [place] [id number] [id number] [address] [place] [phone] SP Feb, Diabetes E11.9 SP [facility] [address] [id number] [address] [place] [address] SP Feb, Degenerative disc disease, l umbar M51.36 SP [place] [id number] [id number] [address] [place] [phone] SP Feb, Post-traumatic stress disord er F43.10 and Major depressive SP recurrent, moderate F33.1 [place] [id number] [id number] [address] [place] [phone] SP Feb, SP [facility] [place] [address] [id number] [address] [place] [phone] SP Feb, Diabetes E11.9 SP [facility] [address] [id number] [address] [place] [phone] SP Jan, Diabetes E11.9 SP [facility] [address] [id number] [address] [place] [address] SP Jan, Post-traumatic stress disord er F43.10 and Major depressive SP recurrent, moderate F33.1 [facility] [address] [id number] [address] [place] [phone] SP Jan, Diabetes E11.9 SP [facility] [address] [id number] [address] [place] [phone] SP Jan, Diabetes E11.9 SP [facility] [address] [id number] [address] [place] [id number] SP Jan, SP [facility] [address] [id number] [address] [place] [phone] SP Jan, SP [facility] [address] [id number] [address] [place] [phone] SP Jan, Post-traumatic stress disord er F43.10 and Major depressive SP recurrent, moderate F33.1 [facility] [address] [id number] [address] [place] [id number] SP Jan, SP [facility] [address] [id number] [address] [place] [address] SP Jan, Major depressive disorder, r ecurrent episode, moderate F33.1 ; SPtraumatic stress disorder F43.10 and Obsessive-compulsive disorder, unspecified type F42.9 [facility] [address] [id number] [address] [place] [phone] SP Jan, SP [facility] [address] [facility] [id number] [address] [place] [phone] SP Jan, Diabetes E11.9 SP [facility] [address] [id number] [address] [place] [phone] SP Jan, SP [facility] [address] [id number] [address] [place] [phone] SP Jan, Sprain of calcaneofibular li gament of right ankle, subsequent SP S93.411D [facility] [address] [id number] [address] [place] [phone] SP Jan, Post-traumatic stress disord er F43.10 and Major depressive SP recurrent, moderate F33.1 [facility] [address] [id number] [address] [place] [phone] SP Jan, Diabetes E11.9 SP [facility] [address] [id number] [address] [place] [id number] SP 16 Dec, 2016 Major depressive disorder, r ecurrent episode, moderate F33.1 ; SPtraumatic stress disorder F43.10 and Obsessive-compulsive disorder, unspecified type F42.9 [facility] [address] [id number] [address] [place] [address] SP 15 Dec, 2016 SP [facility] [address] [id number] [address] [place] [address] SP 14 Dec, 2016 Sprain of calcaneofibular li gament of right ankle, subsequent SP S93.411D [facility] [address] [id number] [address] [place] [phone] SP Dec, Post-traumatic stress disord er F43.10 and Major depressive SP recurrent, moderate F33.1 [facility] [address] [id number] [address] [place] [address] SP 13 Dec, 2016 Sprain of calcaneofibular li gament of right ankle, subsequent SP S93.411D [facility] [id number] [id number] [address] [place] [phone] SP 12 Dec, 2016 Hyperlipidemia E78.5 SP [facility] [address] [facility] [id number] [address] [place] [address] SP Dec, SP [facility] [place] [address] [place] [id number] [place] [address] SP Dec, Diabetes E11.9 ; Diabetic ne uropathy E11.40 ; Degenerative disc SP lumbar M51.36 ; Hyperlipidemia E78.5 ; Insomnia G47.00 ; CAD (coronary artery disease) I25.10 ; Major depressive disorder, recurrent, moderate F33.1 ; Post- traumatic stress disorder F43.10 and Other irritable bowel syndrome K58.8 [facility] [address] [phone] SP November, Diabetic neuropathy E11.40 a nd Hyperlipidemia E78.5 SP [facility] [address] [address] SP November, Degenerative disc disease, l umbar M51.36 SP [facility] [place] [address] [address] SP Oct, [place] [id number] [address] SP Oct, Degenerative disc disease, l umbar M51.36 SP [facility] [address] [place] [id number] [place] [address] SP Sep, Degenerative disc disease, l umbar M51.36 and HTN (hypertension) SP [place] [address] [address] SP Sep, Diabetic neuropathy E11.40 ; HTN (hypertension) I10 ; SP disc disease, lumbar M51.36 ; Hyperlipidemia E78.5 ; Insomnia G47.00 ; CAD (coronary artery disease) I25.10 and Diabetes E11.9 [place] [address] [place] [id number] [address] [place] [phone] SP Aug, SP [place] [address] [place] [id number] [place] [address] SP Aug, Type 2 diabetes mellitus wit h hyperglycemia E11.65 SP [facility] [address] [facility] [id number] [address] [place] [phone] SP Aug, SP [facility] [address] [facility] [id number] [address] [place] [phone] SP Jul, SP [facility] [address] [facility] [id number] [address] [place] [phone] SP Jul, SP [facility] [address] [facility] [id number] [address] [place] [id number] SP Jun, SP [facility] [address] [facility] [id number] [address] [place] [phone] SP Jun, SP [facility] [address] [facility] [id number] [address] [place] [phone] SP Jun, SP [facility] [address] [facility] [id number] [address] [place] [address] SP Jun, SP [facility] [address] [facility] [id number] [address] [place] [address] SP May, Major depressive disorder, r ecurrent episode, moderate F33.1 and SPtraumatic stress disorder F43.10 [place] [address] [place] [id number] [address] [place] [phone] SP May, Major depressive disorder, r ecurrent episode, moderate F33.1 and SPtraumatic stress disorder F43.10 [facility] [address] [facility] [id number] [address] [place] [address] SP May, Diabetes E11.9 ; Diabetic ne uropathy E11.40 ; HTN (hypertension) SP ; Gastritis K29.70 ; Hyperlipidemia E78.5 ; Insomnia G47.00 and Major depressive disorder, recurrent, moderate F33.1 [facility] [address] [facility] [id number] [address] [place] [address] SP May, Major depressive disorder, r ecurrent episode, moderate F33.1 [place] [address] [facility] [id number] [address] [place] [address] SP Apr, SP [place] [address] [place] [id number] [place] [address] SP Apr, Major depressive disorder, r ecurrent episode, moderate F33.1 and SPtraumatic stress disorder F43.10 [place] [address] [place] [id number] [place] [address] SP Apr, Diabetes E11.9 ; Diabetic ne uropathy E11.40 ; Degenerative disc SP lumbar M51.36 ; HTN (hypertension) I10 ; Hyperlipidemia E78.5 ; Chronic pain G89.29 ; CAD (coronary artery disease) I25.10 and Major depressive disorder, recurrent, moderate F33.1 [place] [address] [place] [id number] [place] [address] SP Apr, Major depressive disorder, r ecurrent episode, moderate F33.1 and SPtraumatic stress disorder F43.10 [facility] [address] [place] [id number] [place] [address] SP Apr, Major depressive disorder, r ecurrent episode, moderate F33.1 and SPtraumatic stress disorder F43.10 [facility] [place] [address] [place] [id number] [address] [place] [address] SP Apr, Major depressive disorder, r ecurrent episode, moderate F33.1 and SP episodic mood disorder F39 [facility] [address] [place] [id number] [address] [place] [address] SP Apr, Chronic pain G89.29 ; Diabet ic neuropathy E11.40 ; HTN SP I10 ; Insomnia G47.00 ; CAD (coronary artery disease) I25.10 ; Hyperlipidemia E78.5 ; Degenerative disc disease, lumbar M51.36 ; Diabetes E11.9 and Gastritis K29.70 [facility] [address] [place] [id number] [address] [place] [phone] SP Sep, SP [facility] [address] [place] [id number] [place] [address] [place] [address] SP Aug, SP [place] [id number] [address] SP Jul, Major depressive disorder, r ecurrent episode, moderate F33.1 SP [facility] [address] [address] SP Jul, Unspecified episodic mood di sorder F39 SP [facility] [address] [address] SP Jul, SP [place] [address] [address] SP Jul, SP [place] [address] [address] SP Jul, SP [place] [address] [address] SP Jul, Type 2 diabetes mellitus wit h hyperglycemia E11.65 ; Diabetic SP E11.40 ; Degenerative disc disease, lumbar M51.36 ; HTN (hypertension) I10 ; Gastritis K29.70 ; Hyperlipidemia E78.5 and CAD (coronary artery disease) I25.10 [place] [address] [id number] SP Jul, Severe episode of recurrent major depressive disorder, without SP features F33.2 [place] [address] [id number] SP Jul, SP [place] [address] [id number] SP Jun, SP [place] [address] [id number] SP Jun, Diabetes E11.9 ; Diabetic ne uropathy E11.40 ; Degenerative disc SP lumbar M51.36 ; HTN (hypertension) I10 ; Gastritis K29.70 ; Hyperlipidemia E78.5 ; Unspecified episodic mood disorder F39 ; Depression F32.9 and CAD (coronary artery disease) I25.10 [facility] [address] [facility] [id number] [address] [place] [id number] SP Jun, SP [facility] [address] [facility] [id number] [address] [place] [id number] SP Jun, SP [facility] [address] [facility] [id number] [place] [id number] SP Jun, Diabetes E11.9 ; Diabetic ne uropathy E11.40 ; Degenerative disc SP lumbar M51.36 ; HTN (hypertension) I10 ; Gastritis K29.70 ; Chronic pain G89.29 ; Insomnia G47.00 and Unspecified episodic mood disorder F39 [place] [id number] [facility] [id number] [place] [id number] SP May, Diabetic neuropathy E11.40 ; Degenerative disc disease, lumbar SP ; HTN (hypertension) I10 ; Gastritis K29.70 ; Hyperlipidemia E78.5 ; Chronic pain G89.29 ; Insomnia G47.00 ; Unspecified episodic mood disorder F39 ; Diabetes E11.9 ; CAD (coronary artery disease) I25.10 and H/O Gram positive sepsis Z86.19 [place] [id number] [facility] [id number] [address] [place] [id number] SP May, SP [facility] [address] [place] [id number] [place] [phone] SP May, SP [facility] [address] [facility] [id number] [address] [place] [phone] SP May, SP [facility] [address] [facility] [id number] [address] [place] [id number] SP May, SP [facility] [address] [facility] [id number] [address] [place] [phone] SP May, UTI (urinary tract infection ) N39.0 ; Diabetes E11.9 ; Diabetic SP E11.40 ; Hyperlipidemia E78.5 and Chronic pain G89.29 [place] [address] [id number] [place] [address] SP May, Insomnia, unspecified G47.00 and Chronic pain G89.29 SP [facility] [address] [facility] [id number] [address] [place] [id number] SP May, SP [facility] [address] [facility] [id number] [address] [place] [phone] SP May, SP [facility] [address] [facility] [id number] [address] [place] [phone] SP May, SP [facility] [address] [facility] [id number] [place] [id number] SP Apr, Insomnia, unspecified G47.00 ; Chronic pain G89.29 and SP episodic mood disorder F39 [facility] [address] [facility] [id number] [place] [phone] SP Apr, Unspecified episodic mood di sorder F39 SP [facility] [address] [facility] [id number] [address] [place] [phone] SP Apr, Major depression F32.9 SP [facility] [address] [place] [id number] [place] [phone] SP Apr, SP [facility] [address] [place] [id number] [address] [place] [phone] SP Apr, Diabetes E11.9 ; Diabetic ne uropathy E11.40 ; Degenerative disc SP lumbar M51.36 ; HTN (hypertension) I10 ; Gastritis K29.70 ; Hyperlipidemia E78.5 ; Chronic pain G89.29 and Insomnia G47.00 [facility] [address] [facility] [id number] [address] [place] [phone] SP Mar, SP [facility] [address] [place] [id number] [address] [place] [phone] SP Mar, SP [facility] [address] [place] [id number] [place] [phone] SP Mar, SP [facility] [address] [facility] [id number] [address] [place] [phone] SP Mar, Diabetes mellitus 250.00 ; D iabetic neuropathy 250.60 ; CAD SP artery disease) 414.00 ; Degenerative disc disease, lumbar 722.52 ; Gastritis 535.50 and Insomnia 780.52 [facility] [address] [facility] [id number] [address] [place] [id number] SP Mar, Diabetes mellitus 250.00 ; D egenerative disc disease, lumbar SP ; Essential hypertension 401.9 ; Gastritis 535.50 and Chronic pain 338.29 [place] [address] [place] [id number] [place] [phone] SP Feb, [facility] [address] [address] [id number] [place] [phone] SP Feb, [facility] [address] [address] [id number] [place] [phone] SP Jan, [facility] [address] [id number] [place] [phone] SP Jan, Diabetes mellitus 250.00 ; D iabetic neuropathy 250.60 ; SP disc disease, lumbar 722.52 ; CAD (coronary artery disease) 414.00 ; Essential hypertension 401.9 ; Gastritis 535.50 ; Hyperlipidemia 272.4 and Distal end of ulna fracture, closed 813.43 [place] [address] [place] [id number] [address] [place] [phone] SP Dec, Wrist pain 719.43 and Diabet es mellitus 250.00 SP [facility] [address] [facility] [id number] [address] [place] [phone] SP May, [facility] [address] [place] [id number] [address] [place] [phone] SP Dec, [facility] [address] [place] [id number] [address] [place] [phone] SP November, [facility] [address] [place] [id number] [place] [address], [place] [address] SP 16 Oct, 2009 SP [facility] [address] [id number] [address] [place] [address], [place] [address] SP 17 Sep, 2009 SP [facility] [address] [id number] [address] [place] [address], [place] [address] SP 11 Sep, 2009 SP [facility] [address] [id number] [address] [place] [address], [place] [address] SP Jun, SP [facility] [address] [id number] [address] [place] [address], [place] [address] SP Jun, SP [facility] [address] [id number] [address] [place] [address], [place] [address] SP Jun, SP [facility] [address] [id number] [address] [place] [address], [place] [address] SP Jun, SP [facility] [address] [id number] [address] [place] [phone] SP Jun, SP [facility] [address] [id number] [address] [place] [address], [place] [address] SP Jun, SP [facility] [address] [id number] [address] [place] [address], [place] [address] SP Jun, SP [facility] [address] [id number] [address] [place] [address], [place] [address] SP May, SP [facility] [address] [id number] [address] [place] [phone] SP May, SP [facility] [address] [id number] [address] [place] [address], [place] [address] SP May, SP [facility] [address] [id number] [address] [place] [address], [place] [address] SP May, SP [facility] [address] [id number] [address] [place] [phone] SP Apr, SP [facility] [place] [facility] [address] [facility] [id number] [address] [place] [phone] SP Apr, SP [facility] [address] [facility] [id number] [address] [place] [phone] SP Apr, SP [facility] [address] [facility] [id number] [address] [place] [phone] SP Mar, SP [facility] [address] [facility] [id number] [address] [place] [id number] SP Dec, SP IMMUNIZATIONS No Known Immunizations SOCIAL HISTORY Never Assessed REASON FOR VISIT diabetes education follow-up PLAN OF CARE VITAL SIGNS MEDICATIONS Medication Instructions Dosage Frequency Start Date End Date Duration S tatus POS Metformin HCl 500 mg DX- E11.65 at supper 2 tablets Aug, 30 day(s) SP RESULTS No Results PROCEDURES No Known [...]
--- OUTSIDE RECORDS SUMMARY | 2019-06-14 01:35 | XMS REPORT ---
Author Author JALEN PEREZ POS Organization [facility] SP Address [address] [place] [address] SP Care Team Providers Care Copier And Printer Field Technician Name Role Phone POS RISSAKARTIKFLAQUITOY Unavailable SP PROBLEMS Type Condition ICD9-CM Code [id number] Code Onset Dates Condition S tatus SNOMED POS Problem Type 2 diabetes mellitus with hyperglycemia E11.65 Active POS Problem Major depressive disorder, recurrent episode, moderate F33.1 Active SP Problem Obsessive-compulsive disorder, unspecified type F4 2.9 Active SP Problem Ataxia R27.0 Active [id number] SP Problem Falls frequently R29.6 Active 279 738518 SP Problem Type 2 diabetes mellitus with other diab etic neurological complication SP E11.49 Active 41356082 SP Problem 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 428979699 SP Problem History of pulmonary embolism Z86.711 Active 678747063 SP Problem Type 2 diabetes mellitus with other diabetic kid allen complication SP Active 73536184 SP Problem Insomnia G47.00 Active 545362518 SP Problem Degenerative disc disease, lumbar M51.36 Active 74261432 SP Problem HTN (hypertension) I10 Active 3 9126200 SP Problem Hyperlipidemia E78.5 Active 46462 004 SP Problem CAD (coronary artery disease) I25.10 Active 04933567 SP Problem Chronic pain G89.29 Active 4007627 1 SP Problem Post-traumatic stress disorder F43.10 Active 24434790 SP ALLERGIES No Information ENCOUNTERS Encounter Location Date Diagnosis POS [facility] [address] [facility] [id number] [address] [place] [phone] SP Apr, SP [facility] [address] [facility] [id number] [address] [place] [phone] SP Mar, SP [facility] [address] [facility] [id number] [address] [place] [phone] SP Mar, Chronic pain G89.[address] [facility] [address] [facility] [id number] [address] [place] [phone] SP Feb, Type 2 diabetes mellitus wit h other diabetic neurological SP E11.49 ; 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.29 ; Degenerative disc disease, lumbar M51.36 and Chronic pain G89.29 [facility] [address] [facility] [id number] [address] [place] [phone] SP Jan, SP [facility] [address] [id number] [address] [place] [phone] SP Jan, SP [facility] [address] [facility] [id number] [address] [place] [phone] SP Jan, SP [facility] [address] [facility] [id number] [address] [place] [phone] SP Jan, SP [facility] [address] [facility] [id number] [address] [place] [phone] SP Jan, SP [facility] [address] [facility] [id number] [address] [place] [phone] SP Jan, SP [facility] [address] [facility] [id number] [address] [place] [phone] SP Jan, Slurred speech R47.81 ; Atax ia R27.0 and Left arm weakness SP [facility] [address] [id number] [address] [place] [phone] SP Jan, SP [facility] [address] [facility] [id number] [address] [place] [phone] SP Jan, Type 2 diabetes mellitus wit h hyperglycemia E11.65 and SP vomiting with nausea, unspecified vomiting type R11.2 [facility] [address] [facility] [id number] [address] [place] [phone] SP Dec, CAD (coronary artery disease ) I25.10 and Atypical chest pain SP [facility] [address] [facility] [id number] [address] [place] [phone] SP Dec, SP [facility] [address] [facility] [id number] [address] [place] [phone] SP Dec, Diabetes E11.9 ; Type 2 diab etes mellitus with hyperglycemia SP and Intractable vomiting with nausea, unspecified vomiting type R11.2 [facility] [address] [facility] [id number] [address] [place] [phone] SP Dec, Chronic pain G89.[address] [facility] [address] [facility] [id number] [address] [place] [phone] SP November, SP 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 [address] [facility] [id number] [address] [place] [phone] SP Oct, SP [facility] [address] [facility] [id number] [address] [place] [phone] SP Oct, Chronic pain G89.[address] [facility] [address] [facility] [id number] [address] [place] [phone] SP Sep, Diabetes E11.[address] [facility] [address] [facility] [id number] [address] [place] [phone] SP Sep, Chronic pain G89.[address] [facility] [address] [facility] [id number] [address] [place] [phone] SP Sep, SP [facility] [address] [facility] [id number] [address] [place] [phone] SP Sep, Falls frequently R29.6 ; Elier g term 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.4 SP Type 2 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 E11.49 [facility] [address] [facility] [id number] [address] [place] [phone] SP Sep, SP [facility] [address] [facility] [id number] [address] [place] [phone] SP Sep, Diabetes E11.[address] [facility] [address] [facility] [id number] [address] [place] [phone] SP Aug, SP [facility] [address] [facility] [id number] [address] [place] [phone] SP Aug, Chronic pain G89.[address] [facility] [address] [facility] [id number] [address] [place] [phone] SP Aug, SP [facility] [address] [facility] [id number] [address] [place] [phone] SP Aug, Chronic pain G89.[address] [facility] [address] [facility] [id number] [address] [place] [phone] SP Jul, SP [facility] [address] [facility] [id number] [address] [place] [phone] SP Jul, Diabetes E11.9 and Type 2 di abetes mellitus with other diabetic SP complication E11.29 [facility] [address] [facility] [id number] [address] [place] [phone] SP Jul, Type 2 diabetes mellitus wit h other diabetic kidney complication SP [facility] [address] [facility] [id number] [address] [place] [phone] SP Jul, SP [facility] [address] [facility] [id number] [address] [place] [phone] SP Jul, Chronic pain G89.[address] [facility] [address] [facility] [id number] [address] [place] [phone] SP Jun, Diabetes E11.[address] [facility] [address] [facility] [id number] [address] [place] [phone] SP Jun, Chronic pain G89.[address] [facility] [address] [facility] [id number] [address] [place] [phone] SP Jun, Diabetes E11.9 ; Atypical ch est pain R07.89 ; FPC current SP of insulin Z79.4 ; 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.29 ; Type 2 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 E11.49 ; History of pulmonary embolism Z86.711 and History of CVA (cerebrovascular accident) Z86.73 [facility] [address] [facility] [id number] [address] [place] [phone] SP May, SP [facility] [address] [facility] [id number] [address] [place] [phone] SP May, Chronic pain G89.[address] [facility] [address] [facility] [id number] [address] [place] [phone] SP Apr, Chronic pain G89.[address] [facility] [address] [facility] [id number] [address] [place] [phone] SP Apr, SP [facility] [address] [facility] [id number] [address] [place] [phone] SP Mar, Chronic pain G89.[address] [facility] [address] [facility] [id number] [address] [place] [phone] SP Mar, Diabetes E11.[address] [facility] [address] [facility] [id number] [address] [place] [phone] SP Mar, SP [facility] [address] [facility] [id number] [address] [place] [phone] SP Mar, Degenerative disc disease, l umbar M51.[address] [facility] [address] [facility] [id number] [address] [place] [phone] SP Feb, Diabetes E11.[address] [facility] [address] [facility] [id number] [address] [place] [phone] SP Feb, Diabetes E11.9 [facility] [place] [address] [id number] [address] [place] [phone] SP 16 Feb, 2017 Diabetes E11.9 ; HTN (hypert ension) I10 ; Diabetic neuropathy SP and Leg cramps R25.2 [facility] [address] [id number] [address] [place] [phone] SP 15 Feb, 2017 Sprain of calcaneofibular li gament of right ankle, subsequent SP S93.411D ; Major depressive disorder, recurrent episode, moderate F33.1 ; Diabetes E11.9 ; Hyperlipidemia E78.5 ; Post-traumatic stress disorder F43.10 and Other irritable bowel syndrome K58.8 [facility] [address] [id number] [address] [place] [phone] SP 14 Feb, 2017 Major depressive disorder, r ecurrent episode, moderate F33.1 ; SPtraumatic stress disorder F43.10 and Obsessive-compulsive disorder, unspecified type F42.9 [facility] [address] [id number] [address] [place] [phone] SP Feb, SP [facility] [address] [id number] [address] [place] [phone] SP Feb, Post-traumatic stress disord er F43.10 and Major depressive SP recurrent, moderate F33.1 [facility] [id number] [id number] [address] [place] [phone] SP Feb, Diabetes E11.[address] [facility] [address] [id number] [address] [place] [phone] SP Feb, Degenerative disc disease, l umbar M51.36 SP [facility] [id number] [id number] [address] [place] [phone] SP Feb, Post-traumatic stress disord er F43.10 and Major depressive SP recurrent, moderate F33.1 [facility] [id number] [id number] [address] [place] [phone] SP Feb, SP [facility] [address] [id number] [address] [place] [phone] SP Feb, Diabetes E11.[address] [facility] [address] [id number] [address] [place] [phone] SP Jan, Diabetes E11.[address] [facility] [address] [id number] [address] [place] [phone] SP Jan, Post-traumatic stress disord er F43.10 and Major depressive SP recurrent, moderate F33.1 [facility] [address] [id number] [address] [place] [phone] SP Jan, Diabetes E11.[address] [facility] [address] [id number] [address] [place] [phone] SP Jan, Diabetes E11.[address] [facility] [address] [id number] [address] [place] [phone] SP Jan, SP [facility] [address] [id number] [address] [place] [phone] SP Jan, SP [facility] [address] [id number] [address] [place] [phone] SP Jan, Post-traumatic stress disord er F43.10 and Major depressive SP recurrent, moderate F33.1 [facility] [address] [id number] [address] [place] [phone] SP Jan, SP [facility] [address] [id number] [address] [place] [phone] SP Jan, Major depressive disorder, r ecurrent episode, moderate F33.1 ; SPtraumatic stress disorder F43.10 and Obsessive-compulsive disorder, unspecified type F42.9 [facility] [address] [id number] [address] [place] [phone] SP Jan, SP [facility] [address] [facility] [id number] [address] [place] [phone] SP Jan, Diabetes E11.[address] [facility] [address] [id number] [address] [place] [phone] SP Jan, SP [facility] [address] [id number] [address] [place] [phone] SP Jan, Sprain of calcaneofibular li gament of right ankle, subsequent SP S93.411D [facility] [address] [id number] [address] [place] [phone] SP Jan, Post-traumatic stress disord er F43.10 and Major depressive SP recurrent, moderate F33.1 [facility] [address] [id number] [address] [place] [phone] SP Jan, Diabetes E11.[address] [facility] [address] [id number] [address] [place] [phone] SP 16 Dec, 2016 Major depressive disorder, r ecurrent episode, moderate F33.1 ; SPtraumatic stress disorder F43.10 and Obsessive-compulsive disorder, unspecified type F42.9 [facility] [address] [id number] [address] [place] [phone] SP 15 Dec, 2016 SP [facility] [address] [id number] [address] [place] [phone] SP 14 Dec, 2016 Sprain of calcaneofibular li gament of right ankle, subsequent SP S93.411D [facility] [address] [id number] [address] [place] [phone] SP Dec, Post-traumatic stress disord er F43.10 and Major depressive SP recurrent, moderate F33.1 [facility] [address] [id number] [address] [place] [phone] SP 13 Dec, 2016 Sprain of calcaneofibular li gament of right ankle, subsequent SP S93.411D [facility] [id number] [id number] [address] [place] [phone] SP 12 Dec, 2016 Hyperlipidemia E78.5 SP [facility] [address] [facility] [id number] [address] [place] [phone] SP Dec, SP [facility] [address] [place] [id number] [place] [phone] SP Dec, Diabetes E11.9 ; Diabetic ne uropathy E11.40 ; Degenerative disc SP lumbar M51.36 ; Hyperlipidemia E78.5 ; Insomnia G47.00 ; CAD (coronary artery disease) I25.10 ; Major depressive disorder, recurrent, moderate F33.1 ; Post- traumatic stress disorder F43.10 and Other irritable bowel syndrome K58.8 [facility] [address] [phone] SP November, Diabetic neuropathy E11.40 a nd Hyperlipidemia E78.5 SP [facility] [address] [address] SP November, Degenerative disc disease, l umbar M51.36 SP [facility] [address] [address] SP Oct, [facility] [address] [address] SP Oct, Degenerative disc disease, l umbar M51.36 SP [facility] [address] [place] [id number] [place] [phone] SP Sep, Degenerative disc disease, l umbar M51.36 and HTN (hypertension) SP [facility] [address] [address] SP Sep, Diabetic neuropathy E11.40 ; HTN (hypertension) I10 ; SP disc disease, lumbar M51.36 ; Hyperlipidemia E78.5 ; Insomnia G47.00 ; CAD (coronary artery disease) I25.10 and Diabetes E11.9 [facility] [address] [place] [id number] [address] [place] [address] SP Aug, SP [facility] [address] [place] [id number] [place] [address] SP Aug, Type 2 diabetes mellitus wit h hyperglycemia E11.[address] [facility] [address] [facility] [id number] [address] [place] [phone] SP Aug, SP [facility] [address] [facility] [id number] [address] [place] [phone] SP Jul, SP [facility] [address] [facility] [id number] [address] [place] [phone] SP Jul, SP [facility] [address] [facility] [id number] [address] [place] [phone] SP Jun, SP [facility] [address] [facility] [id number] [address] [place] [phone] SP Jun, SP [facility] [address] [facility] [id number] [address] [place] [phone] SP Jun, SP [facility] [address] [facility] [id number] [address] [place] [phone] SP Jun, SP [facility] [address] [facility] [id number] [address] [place] [phone] SP May, Major depressive disorder, r ecurrent episode, moderate F33.1 and SPtraumatic stress disorder F43.10 [facility] [address] [place] [id number] [address] [place] [phone] SP May, Major depressive disorder, r ecurrent episode, moderate F33.1 and SPtraumatic stress disorder F43.10 [facility] [address] [facility] [id number] [address] [place] [phone] SP May, Diabetes E11.9 ; Diabetic ne uropathy E11.40 ; HTN (hypertension) SP ; Gastritis K29.70 ; Hyperlipidemia E78.5 ; Insomnia G47.00 and Major depressive disorder, recurrent, moderate F33.1 [facility] [address] [facility] [id number] [address] [place] [phone] SP May, Major depressive disorder, r ecurrent episode, moderate F33.1 [facility] [address] [facility] [id number] [address] [place] [phone] SP Apr, SP [facility] [address] [place] [id number] [place] [phone] SP Apr, Major depressive disorder, r ecurrent episode, moderate F33.1 and SPtraumatic stress disorder F43.10 [facility] [address] [place] [id number] [place] [address] SP Apr, Diabetes E11.9 ; Diabetic ne uropathy E11.40 ; Degenerative disc SP lumbar M51.36 ; HTN (hypertension) I10 ; Hyperlipidemia E78.5 ; Chronic pain G89.29 ; CAD (coronary artery disease) I25.10 and Major depressive disorder, recurrent, moderate F33.1 [facility] [address] [place] [id number] [place] [phone] SP Apr, Major depressive disorder, r ecurrent episode, moderate F33.1 and SPtraumatic stress disorder F43.10 [facility] [address] [place] [id number] [place] [address] SP Apr, Major depressive disorder, r ecurrent episode, moderate F33.1 and SPtraumatic stress disorder F43.10 [facility] [address] [place] [id number] [address] [place] [phone] SP Apr, Major depressive disorder, r ecurrent episode, moderate F33.1 and SP episodic mood disorder F39 [facility] [address] [place] [id number] [address] [place] [phone] SP Apr, Chronic pain G89.29 ; Diabet ic neuropathy E11.40 ; HTN SP I10 ; Insomnia G47.00 ; CAD (coronary artery disease) I25.10 ; Hyperlipidemia E78.5 ; Degenerative disc disease, lumbar M51.36 ; Diabetes E11.9 and Gastritis K29.70 [facility] [address] [place] [id number] [address] [place] [phone] SP Sep, SP [facility] [address] [place] [id number] [place] [address] [place] [address] SP Aug, SP [facility] [id number] [address] SP Jul, Major depressive disorder, r ecurrent episode, moderate F33.[address] [facility] [address] [address] SP Jul, Unspecified episodic mood di sorder F39 SP [facility] [address] [address] SP Jul, SP [facility] [address] [address] SP Jul, SP [facility] [address] [address] SP Jul, SP [facility] [address] [address] SP Jul, Type 2 diabetes mellitus wit h hyperglycemia E11.65 ; Diabetic SP E11.40 ; Degenerative disc disease, lumbar M51.36 ; HTN (hypertension) I10 ; Gastritis K29.70 ; Hyperlipidemia E78.5 and CAD (coronary artery disease) I25.10 [facility] [address] [address] SP Jul, Severe episode of recurrent major depressive disorder, without SP features F33.2 [facility] [address] [address] SP Jul, SP [facility] [address] [address] SP Jun, SP [facility] [address] [address] SP Jun, Diabetes E11.9 ; Diabetic ne uropathy E11.40 ; Degenerative disc SP lumbar M51.36 ; HTN (hypertension) I10 ; Gastritis K29.70 ; Hyperlipidemia E78.5 ; Unspecified episodic mood disorder F39 ; Depression F32.9 and CAD (coronary artery disease) I25.10 [facility] [address] [facility] [id number] [address] [place] [phone] SP Jun, SP [facility] [address] [facility] [id number] [address] [place] [phone] SP Jun, SP [facility] [address] [facility] [id number] [place] [phone] SP Jun, Diabetes E11.9 ; Diabetic ne uropathy E11.40 ; Degenerative disc SP lumbar M51.36 ; HTN (hypertension) I10 ; Gastritis K29.70 ; Chronic pain G89.29 ; Insomnia G47.00 and Unspecified episodic mood disorder F39 [facility] [place] [id number] [facility] [id number] [place] [address] SP May, Diabetic neuropathy E11.40 ; Degenerative disc disease, lumbar SP ; HTN (hypertension) I10 ; Gastritis K29.70 ; Hyperlipidemia E78.5 ; Chronic pain G89.29 ; Insomnia G47.00 ; Unspecified episodic mood disorder F39 ; Diabetes E11.9 ; CAD (coronary artery disease) I25.10 and H/O Gram positive sepsis Z86.19 [facility] [id number] [facility] [id number] [address] [place] [phone] SP May, SP [facility] [address] [place] [id number] [place] [address] SP May, SP [facility] [address] [facility] [id number] [address] [place] [phone] SP May, SP [facility] [address] [facility] [id number] [address] [place] [phone] SP May, SP [facility] [address] [facility] [id number] [address] [place] [phone] SP May, UTI (urinary tract infection ) N39.0 ; Diabetes E11.9 ; Diabetic SP E11.40 ; Hyperlipidemia E78.5 and Chronic pain G89.29 [facility] [address] [place] [id number] [place] [address] SP May, Insomnia, unspecified G47.00 and Chronic pain G89.[address] [facility] [address] [facility] [id number] [address] [place] [phone] SP May, SP [facility] [address] [facility] [id number] [address] [place] [phone] SP May, SP [facility] [address] [facility] [id number] [address] [place] [phone] SP May, SP [facility] [address] [facility] [id number] [place] [phone] SP Apr, Insomnia, unspecified G47.00 ; Chronic pain G89.29 and SP episodic mood disorder F39 [facility] [address] [facility] [id number] [place] [id number] SP Apr, Unspecified episodic mood di sorder F39 SP [facility] [address] [facility] [id number] [address] [place] [phone] SP Apr, Major depression F32.[address] [facility] [address] [place] [id number] [place] [phone] SP Apr, SP [facility] [address] [place] [id number] [address] [place] [id number] SP Apr, Diabetes E11.9 ; Diabetic ne uropathy E11.40 ; Degenerative disc SP lumbar M51.36 ; HTN (hypertension) I10 ; Gastritis K29.70 ; Hyperlipidemia E78.5 ; Chronic pain G89.[address] [facility] [address] [facility] [id number] [address] [place] [phone] SP Mar, SP [facility] [address] [place] [id number] [address] [place] [phone] SP Mar, SP [facility] [address] [place] [id number] [place] [phone] SP Mar, SP [facility] [address] [facility] [id number] [address] [place] [phone] SP Mar, Diabetes mellitus 250.00 ; D iabetic neuropathy 250.60 ; CAD SP artery disease) 414.00 ; Degenerative disc disease, lumbar 722.52 ; Gastritis 535.[address] [facility] [address] [facility] [id number] [address] [place] [phone] SP Mar, Diabetes mellitus 250.00 ; D egenerative disc disease, lumbar SP ; Essential hypertension 401.9 ; Gastritis 535.50 and Chronic pain 338.29 [facility] [place] [address] [place] [id number] [place] [id number] SP Feb, [facility] [place] [id number] [place] [phone] SP Feb, [facility] [place] [id number] [place] [phone] SP Jan, [facility] [place] [id number] [place] [phone] SP Jan, Diabetes mellitus 250.00 ; D iabetic neuropathy 250.60 ; SP disc disease, lumbar 722.52 ; CAD (coronary artery disease) 414.00 ; Essential hypertension 401.9 ; Gastritis 535.50 ; Hyperlipidemia 272.4 and Distal end of ulna fracture, closed 813.43 [facility] [address] [place] [id number] [place] [phone] SP Dec, Wrist pain 719.43 and Diabet es mellitus 250.[address] [facility] [address] [facility] [id number] [address] [place] [phone] SP May, [facility] [place] [id number] [address] [place] [phone] SP Dec, [facility] [place] [address] [id number] [address] [place] [phone] SP November, [facility] [place] [address] [place] [id number] [place] [address], [place] [id number] SP 16 Oct, 2009 SP [facility] [address] [id number] [address] [place] [address], [place] [id number] SP 17 Sep, 2009 SP [facility] [address] [id number] [address] [place] [address], [place] [id number] SP 11 Sep, 2009 SP [facility] [address] [id number] [address] [place] [address], [place] [id number] SP Jun, SP [facility] [address] [id number] [address] [place] [address], [place] [id number] SP Jun, SP [facility] [address] [id number] [address] [place] [address], [place] [id number] SP Jun, SP [facility] [address] [id number] [address] [place] [address], [place] [id number] SP Jun, SP [facility] [address] [id number] [address] [place] [phone] SP Jun, SP [facility] [address] [id number] [address] [place] [address], [place] [id number] SP Jun, SP [facility] [address] [id number] [address] [place] [address], [place] [id number] SP Jun, SP [facility] [address] [id number] [address] [place] [address], [place] [id number] SP May, SP [facility] [address] [id number] [address] [place] [phone] SP May, SP [facility] [address] [id number] [address] [place] [address], [place] [id number] SP May, SP [facility] [address] [id number] [address] [place] [address], [place] [id number] SP May, SP [facility] [address] [id number] [address] [place] [phone] SP Apr, SP [facility] [address] [facility] [id number] [address] [place] [phone] SP Apr, SP [facility] [address] [facility] [id number] [address] [place] [id number] SP Apr, [facility] [address] [facility] [id number] [address] [place] [id number] SP Mar, [facility] [address] [facility] [id number] [address] [place] [phone] SP Dec, SP IMMUNIZATIONS No Known Immunizations SOCIAL HISTORY Never Assessed REASON FOR VISIT controlled medications PLAN OF CARE VITAL SIGNS MEDICATIONS Medication [...]
--- OUTSIDE RECORDS SUMMARY | 2019-06-14 01:35 | XMS REPORT ---
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 Name Role Phone POS RISSAKARTIKFLAQUITOY Unavailable SP PROBLEMS Type Condition ICD9-CM Code [id number] Code Onset Dates Condition S tatus SNOMED POS Problem Type 2 diabetes mellitus with hyperglycemia E11.65 Active POS Problem Major depressive disorder, recurrent episode, moderate F33.1 Active SP Problem Obsessive-compulsive disorder, unspecified type F4 2.9 Active SP Problem Ataxia R27.0 Active [id number] SP Problem Falls frequently R29.6 Active [id number] SP Problem Type 2 diabetes mellitus with other diab etic neurological complication SP E11.49 Active 88373519 SP Problem 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 Active 796210378 SP Problem History of pulmonary embolism Z86.711 Active 614398396 SP Problem Type 2 diabetes mellitus with other diabetic kid allen complication SP Active 04136752 SP Problem Insomnia G47.00 Active 101015142 SP Problem Degenerative disc disease, lumbar M51.36 Active 72231883 SP Problem HTN (hypertension) I10 Active 3 4872016 SP Problem Hyperlipidemia E78.5 Active 56826 004 SP Problem CAD (coronary artery disease) I25.10 Active 72911126 SP Problem Chronic pain G89.29 Active 8470669 1 SP Problem Post-traumatic stress disorder F43.10 Active 66378645 SP ALLERGIES No Information ENCOUNTERS Encounter Location Date Diagnosis POS [facility] [address] [facility] [id number] [address] [place] [phone] SP Apr, SP [facility] [address] [facility] [id number] [address] [place] [address] SP Mar, SP [facility] [address] [facility] [id number] [address] [place] [address] SP Mar, Chronic pain G89.29 SP [facility] [address] [facility] [id number] [address] [place] [address] SP Feb, Type 2 diabetes mellitus wit h other diabetic neurological SP E11.49 ; 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.29 ; Degenerative disc disease, lumbar M51.36 and Chronic pain G89.29 [facility] [address] [facility] [id number] [address] [place] [phone] SP Jan, SP [facility] [address] [id number] [address] [place] [phone] SP Jan, SP [facility] [address] [facility] [id number] [address] [place] [address] SP Jan, SP [facility] [address] [facility] [id number] [address] [place] [phone] SP Jan, SP [facility] [address] [facility] [id number] [address] [place] [phone] SP Jan, SP [facility] [address] [facility] [id number] [address] [place] [address] SP Jan, SP [facility] [address] [facility] [id number] [address] [place] [address] SP Jan, Slurred speech R47.81 ; Atax ia R27.0 and Left arm weakness SP [facility] [address] [id number] [address] [place] [phone] SP Jan, SP [facility] [address] [facility] [id number] [address] [place] [address] SP Jan, Type 2 diabetes mellitus wit h hyperglycemia E11.65 and SP vomiting with nausea, unspecified vomiting type R11.2 [facility] [address] [facility] [id number] [address] [place] [address] SP Dec, CAD (coronary artery disease ) I25.10 and Atypical chest pain SP [facility] [address] [facility] [id number] [address] [place] [phone] SP Dec, SP [facility] [address] [facility] [id number] [address] [place] [phone] SP Dec, Diabetes E11.9 ; Type 2 diab etes mellitus with hyperglycemia SP and Intractable vomiting with nausea, unspecified vomiting type R11.2 [facility] [address] [facility] [id number] [address] [place] [address] SP Dec, Chronic pain G89.29 SP [facility] [address] [facility] [id number] [address] [place] [phone] SP November, SP [facility] [address] [facility] [id number] [address] [place] [address] SP November, Diabetes E11.9 ; CAD ([place] ry artery disease) I25.10 ; Atypical SP pain R07.89 ; Type 2 diabetes mellitus with hyperglycemia E11.65 ; 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.29 ; 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 and Chronic pain G89.29 [facility] [address] [facility] [id number] [address] [place] [address] SP Oct, SP [facility] [address] [facility] [id number] [address] [place] [address] SP Oct, Chronic pain G89.29 SP [facility] [address] [facility] [id number] [address] [place] [address] SP Sep, Diabetes E11.9 SP [facility] [address] [facility] [id number] [address] [place] [address] SP Sep, Chronic pain G89.29 SP [facility] [address] [facility] [id number] [address] [place] [address] SP Sep, SP [facility] [address] [facility] [id number] [address] [place] [phone] SP Sep, Falls frequently R29.6 ; Elier g term 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.4 SP Type 2 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 E11.49 [facility] [address] [facility] [id number] [address] [place] [phone] SP Sep, SP [facility] [address] [facility] [id number] [address] [place] [address] SP Sep, Diabetes E11.9 SP [facility] [address] [facility] [id number] [address] [place] [address] SP Aug, SP [facility] [address] [facility] [id number] [address] [place] [address] SP Aug, Chronic pain G89.29 SP [facility] [address] [facility] [id number] [address] [place] [address] SP Aug, SP [facility] [address] [facility] [id number] [address] [place] [address] SP Aug, Chronic pain G89.29 SP [facility] [address] [facility] [id number] [address] [place] [phone] SP Jul, SP [facility] [address] [facility] [id number] [address] [place] [address] SP Jul, Diabetes E11.9 and Type 2 di abetes mellitus with other diabetic SP complication E11.29 [facility] [address] [facility] [id number] [address] [place] [phone] SP Jul, Type 2 diabetes mellitus wit h other diabetic kidney complication SP [facility] [address] [facility] [id number] [address] [place] [address] SP Jul, SP [facility] [address] [facility] [id number] [address] [place] [address] SP Jul, Chronic pain G89.29 SP [facility] [address] [facility] [id number] [address] [place] [address] SP Jun, Diabetes E11.9 SP [facility] [address] [facility] [id number] [address] [place] [address] SP Jun, Chronic pain G89.29 SP [facility] [address] [facility] [id number] [address] [place] [address] SP Jun, Diabetes E11.9 ; Atypical ch est pain R07.89 ; halfway current SP of insulin Z79.4 ; 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.29 ; Type 2 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 E11.49 ; History of pulmonary embolism Z86.711 and History of CVA (cerebrovascular accident) Z86.73 [facility] [address] [facility] [id number] [address] [place] [address] SP May, SP [facility] [address] [facility] [id number] [address] [place] [address] SP May, Chronic pain G89.29 SP [facility] [address] [facility] [id number] [address] [place] [address] SP Apr, Chronic pain G89.29 SP [facility] [address] [facility] [id number] [address] [place] [address] SP Apr, SP [facility] [address] [facility] [id number] [address] [place] [address] SP Mar, Chronic pain G89.29 SP [facility] [address] [facility] [id number] [address] [place] [address] SP Mar, Diabetes E11.9 SP [facility] [address] [facility] [id number] [address] [place] [address] SP Mar, SP [facility] [address] [facility] [id number] [address] [place] [address] SP Mar, Degenerative disc disease, l umbar M51.36 SP [facility] [address] [facility] [id number] [address] [place] [address] SP Feb, Diabetes E11.9 SP [facility] [address] [facility] [id number] [address] [place] [address] SP Feb, Diabetes E11.9 [facility] [address] [id number] [address] [place] [phone] SP 16 Feb, 2017 Diabetes E11.9 ; HTN (hypert ension) I10 ; Diabetic neuropathy SP and Leg cramps R25.2 [facility] [address] [id number] [address] [place] [phone] SP 15 Feb, 2017 Sprain of calcaneofibular li gament of right ankle, subsequent SP S93.411D ; Major depressive disorder, recurrent episode, moderate F33.1 ; Diabetes E11.9 ; Hyperlipidemia E78.5 ; Post-traumatic stress disorder F43.10 and Other irritable bowel syndrome K58.8 [facility] [address] [id number] [address] [place] [phone] SP 14 Feb, 2017 Major depressive disorder, r ecurrent episode, moderate F33.1 ; SPtraumatic stress disorder F43.10 and Obsessive-compulsive disorder, unspecified type F42.9 [facility] [address] [id number] [address] [place] [address] SP Feb, SP [facility] [address] [id number] [address] [place] [phone] SP Feb, Post-traumatic stress disord er F43.10 and Major depressive SP recurrent, moderate F33.1 [facility] [id number] [id number] [address] [place] [phone] SP Feb, Diabetes E11.9 SP [facility] [address] [id number] [address] [place] [phone] SP Feb, Degenerative disc disease, l umbar M51.36 SP [facility] [address] [id number] [address] [place] [phone] SP Feb, Post-traumatic stress disord er F43.10 and Major depressive SP recurrent, moderate F33.1 [facility] [address] [id number] [address] [place] [address] SP Feb, SP [facility] [address] [id number] [address] [place] [address] SP Feb, Diabetes E11.9 SP [facility] [address] [id number] [address] [place] [address] SP Jan, Diabetes E11.9 SP [facility] [address] [id number] [address] [place] [address] SP Jan, Post-traumatic stress disord er F43.10 and Major depressive SP recurrent, moderate F33.1 [facility] [address] [id number] [address] [place] [address] SP Jan, Diabetes E11.9 SP [facility] [address] [id number] [address] [place] [address] SP Jan, Diabetes E11.9 SP [facility] [address] [id number] [address] [place] [phone] SP Jan, SP [facility] [address] [id number] [address] [place] [address] SP Jan, SP [facility] [address] [id number] [address] [place] [address] SP Jan, Post-traumatic stress disord er F43.10 and Major depressive SP recurrent, moderate F33.1 [facility] [address] [id number] [address] [place] [phone] SP Jan, SP [facility] [address] [id number] [address] [place] [address] SP Jan, Major depressive disorder, r ecurrent episode, moderate F33.1 ; SPtraumatic stress disorder F43.10 and Obsessive-compulsive disorder, unspecified type F42.9 [facility] [address] [id number] [address] [place] [address] SP Jan, SP [facility] [address] [facility] [id number] [address] [place] [address] SP Jan, Diabetes E11.9 SP [facility] [address] [id number] [address] [place] [phone] SP Jan, SP [facility] [address] [id number] [address] [place] [phone] SP Jan, Sprain of calcaneofibular li gament of right ankle, subsequent SP S93.411D [facility] [address] [id number] [address] [place] [address] SP Jan, Post-traumatic stress disord er F43.10 and Major depressive SP recurrent, moderate F33.1 [facility] [address] [id number] [address] [place] [phone] SP Jan, Diabetes E11.9 SP [facility] [address] [id number] [address] [place] [phone] SP 16 Dec, 2016 Major depressive disorder, r ecurrent episode, moderate F33.1 ; SPtraumatic stress disorder F43.10 and Obsessive-compulsive disorder, unspecified type F42.9 [facility] [address] [id number] [address] [place] [address] SP 15 Dec, 2016 SP [facility] [address] [id number] [address] [place] [address] SP 14 Dec, 2016 Sprain of calcaneofibular li gament of right ankle, subsequent SP S93.411D [facility] [address] [id number] [address] [place] [address] SP Dec, Post-traumatic stress disord er F43.10 and Major depressive SP recurrent, moderate F33.1 [facility] [address] [id number] [address] [place] [address] SP 13 Dec, 2016 Sprain of calcaneofibular li gament of right ankle, subsequent SP S93.411D [facility] [address] [id number] [address] [place] [address] SP 12 Dec, 2016 Hyperlipidemia E78.5 SP [facility] [address] [facility] [address] [facility] [id number] [address] [place] [address] SP Dec, SP [facility] [address] [place] [id number] [place] [address] SP Dec, Diabetes E11.9 ; Diabetic ne uropathy E11.40 ; Degenerative disc SP lumbar M51.36 ; Hyperlipidemia E78.5 ; Insomnia G47.00 ; CAD (coronary artery disease) I25.10 ; Major depressive disorder, recurrent, moderate F33.1 ; Post- traumatic stress disorder F43.10 and Other irritable bowel syndrome K58.8 [facility] [address] [phone] SP November, Diabetic neuropathy E11.40 a nd Hyperlipidemia E78.5 SP [facility] [address] [address] SP November, Degenerative disc disease, l umbar M51.36 SP [facility] [address] [phone] SP Oct, [facility] [place] [id number] [address] SP Oct, Degenerative disc disease, l umbar M51.36 SP [facility] [address] [place] [id number] [place] [phone] SP Sep, Degenerative disc disease, l umbar M51.36 and HTN (hypertension) SP [facility] [address] [address] SP Sep, Diabetic neuropathy E11.40 ; HTN (hypertension) I10 ; SP disc disease, lumbar M51.36 ; Hyperlipidemia E78.5 ; Insomnia G47.00 ; CAD (coronary artery disease) I25.10 and Diabetes E11.9 [facility] [place] [address] [place] [id number] [address] [place] [address] SP Aug, SP [facility] [address] [place] [id number] [place] [address] SP Aug, Type 2 diabetes mellitus wit h hyperglycemia E11.65 SP [facility] [address] [facility] [id number] [address] [place] [address] SP Aug, SP [facility] [address] [facility] [id number] [address] [place] [address] SP Jul, SP [facility] [address] [facility] [id number] [address] [place] [address] SP Jul, SP [facility] [address] [facility] [id number] [address] [place] [address] SP Jun, SP [facility] [address] [facility] [id number] [address] [place] [phone] SP Jun, SP [facility] [address] [facility] [id number] [address] [place] [address] SP Jun, SP [facility] [address] [facility] [id number] [address] [place] [address] SP Jun, SP [facility] [address] [facility] [id number] [address] [place] [address] SP May, Major depressive disorder, r ecurrent episode, moderate F33.1 and SPtraumatic stress disorder F43.10 [facility] [place] [address] [place] [id number] [address] [place] [address] SP May, Major depressive disorder, r ecurrent episode, moderate F33.1 and SPtraumatic stress disorder F43.10 [facility] [address] [facility] [id number] [address] [place] [address] SP May, Diabetes E11.9 ; Diabetic ne uropathy E11.40 ; HTN (hypertension) SP ; Gastritis K29.70 ; Hyperlipidemia E78.5 ; Insomnia G47.00 and Major depressive disorder, recurrent, moderate F33.1 [facility] [address] [facility] [id number] [address] [place] [phone] SP May, Major depressive disorder, r ecurrent episode, moderate F33.1 SP [facility] [address] [address] [facility] [id number] [address] [place] [address] SP Apr, SP [facility] [place] [address] [place] [id number] [place] [address] SP Apr, Major depressive disorder, r ecurrent episode, moderate F33.1 and SPtraumatic stress disorder F43.10 [facility] [place] [address] [place] [id number] [place] [address] SP Apr, Diabetes E11.9 ; Diabetic ne uropathy E11.40 ; Degenerative disc SP lumbar M51.36 ; HTN (hypertension) I10 ; Hyperlipidemia E78.5 ; Chronic pain G89.29 ; CAD (coronary artery disease) I25.10 and Major depressive disorder, recurrent, moderate F33.1 [facility] [place] [address] [place] [id number] [place] [address] SP Apr, Major depressive disorder, r ecurrent episode, moderate F33.1 and SPtraumatic stress disorder F43.10 [facility] [address] [place] [id number] [place] [address] SP Apr, Major depressive disorder, r ecurrent episode, moderate F33.1 and SPtraumatic stress disorder F43.10 [facility] [place] [address] [place] [id number] [address] [place] [address] SP Apr, Major depressive disorder, r ecurrent episode, moderate F33.1 and SP episodic mood disorder F39 [place] [address] [place] [id number] [address] [place] [address] SP Apr, Chronic pain G89.29 ; Diabet ic neuropathy E11.40 ; HTN SP I10 ; Insomnia G47.00 ; CAD (coronary artery disease) I25.10 ; Hyperlipidemia E78.5 ; Degenerative disc disease, lumbar M51.36 ; Diabetes E11.9 and Gastritis K29.70 [facility] [place] [address] [place] [id number] [place] [address] SP Sep, SP [facility] [place] [address] [place] [id number] [place] [address] [place] [address] SP Aug, SP [facility] [address] [phone] SP Jul, Major depressive disorder, r ecurrent episode, moderate F33.1 SP [facility] [address] [address] SP Jul, Unspecified episodic mood di sorder F39 SP [facility] [address] [address] SP Jul, SP [facility] [address] [address] SP Jul, SP [place] [address] [address] SP Jul, SP [place] [address] [address] SP Jul, Type 2 diabetes mellitus wit h hyperglycemia E11.65 ; Diabetic SP E11.40 ; Degenerative disc disease, lumbar M51.36 ; HTN (hypertension) I10 ; Gastritis K29.70 ; Hyperlipidemia E78.5 and CAD (coronary artery disease) I25.10 [place] [address] [id number] SP Jul, Severe episode of recurrent major depressive disorder, without SP features F33.2 [place] [address] [id number] SP Jul, SP [place] [address] [id number] SP Jun, SP [place] [address] [id number] SP Jun, Diabetes E11.9 ; Diabetic ne uropathy E11.40 ; Degenerative disc SP lumbar M51.36 ; HTN (hypertension) I10 ; Gastritis K29.70 ; Hyperlipidemia E78.5 ; Unspecified episodic mood disorder F39 ; Depression F32.9 and CAD (coronary artery disease) I25.10 [facility] [address] [facility] [id number] [address] [place] [id number] SP Jun, SP [facility] [address] [facility] [id number] [address] [place] [id number] SP Jun, SP [facility] [address] [facility] [id number] [place] [id number] SP Jun, Diabetes E11.9 ; Diabetic ne uropathy E11.40 ; Degenerative disc SP lumbar M51.36 ; HTN (hypertension) I10 ; Gastritis K29.70 ; Chronic pain G89.29 ; Insomnia G47.00 and Unspecified episodic mood disorder F39 [place] [id number] [facility] [id number] [place] [id number] SP May, Diabetic neuropathy E11.40 ; Degenerative disc disease, lumbar SP ; HTN (hypertension) I10 ; Gastritis K29.70 ; Hyperlipidemia E78.5 ; Chronic pain G89.29 ; Insomnia G47.00 ; Unspecified episodic mood disorder F39 ; Diabetes E11.9 ; CAD (coronary artery disease) I25.10 and H/O Gram positive sepsis Z86.19 [place] [id number] [facility] [id number] [address] [place] [phone] SP May, SP [facility] [address] [place] [id number] [place] [phone] SP May, SP [facility] [address] [facility] [id number] [address] [place] [phone] SP May, SP [facility] [address] [facility] [facility] [id number] [address] [place] [phone] SP May, SP [facility] [address] [address] [facility] [id number] [address] [place] [phone] SP May, UTI (urinary tract infection ) N39.0 ; Diabetes E11.9 ; Diabetic SP E11.40 ; Hyperlipidemia E78.5 and Chronic pain G89.29 [place] [id number] [place] [address] SP May, Insomnia, unspecified G47.00 and Chronic pain G89.29 SP [facility] [address] [facility] [id number] [address] [place] [phone] SP May, SP [facility] [address] [facility] [id number] [address] [place] [phone] SP May, SP [facility] [address] [facility] [id number] [address] [place] [phone] SP May, SP [facility] [address] [facility] [id number] [place] [phone] SP Apr, Insomnia, unspecified G47.00 ; Chronic pain G89.29 and SP episodic mood disorder F39 [facility] [address] [facility] [id number] [place] [phone] SP Apr, Unspecified episodic mood di sorder F39 SP [facility] [address] [address] [facility] [id number] [address] [place] [phone] SP Apr, Major depression F32.9 SP [facility] [id number] [place] [address] SP Apr, SP [facility] [address] [place] [id number] [address] [place] [phone] SP Apr, Diabetes E11.9 ; Diabetic ne uropathy E11.40 ; Degenerative disc SP lumbar M51.36 ; HTN (hypertension) I10 ; Gastritis K29.70 ; Hyperlipidemia E78.5 ; Chronic pain G89.29 and Insomnia G47.00 [facility] [address] [facility] [id number] [address] [place] [phone] SP Mar, SP [facility] [address] [place] [id number] [address] [place] [phone] SP Mar, SP [facility] [id number] [place] [phone] SP Mar, SP [facility] [address] [facility] [id number] [address] [place] [phone] SP Mar, Diabetes mellitus 250.00 ; D iabetic neuropathy 250.60 ; CAD SP artery disease) 414.00 ; Degenerative disc disease, lumbar 722.52 ; Gastritis 535.50 and Insomnia 780.52 [facility] [address] [facility] [id number] [address] [place] [phone] SP Mar, Diabetes mellitus 250.00 ; D egenerative disc disease, lumbar SP ; Essential hypertension 401.9 ; Gastritis 535.50 and Chronic pain 338.29 [place] [id number] [place] [phone] SP Feb, [facility] [id number] [place] [phone] SP Feb, [facility] [id number] [place] [phone] SP Jan, [facility] [id number] [place] [phone] SP Jan, Diabetes mellitus 250.00 ; D iabetic neuropathy 250.60 ; SP disc disease, lumbar 722.52 ; CAD (coronary artery disease) 414.00 ; Essential hypertension 401.9 ; Gastritis 535.50 ; Hyperlipidemia 272.4 and Distal end of ulna fracture, closed 813.43 [place] [address] [place] [id number] [address] [place] [phone] SP Dec, Wrist pain 719.43 and Diabet es mellitus 250.00 SP [facility] [address] [address] [facility] [id number] [address] [place] [phone] SP May, [facility] [address] [id number] [address] [place] [phone] SP Dec, [facility] [address] [place] [id number] [address] [place] [phone] SP November, [facility] [address] [place] [id number] [place] [address], [place] [address] SP 16 Oct, 2009 SP [facility] [address] [id number] [address] [place] [address], [place] [address] SP 17 Sep, 2009 SP [facility] [address] [id number] [address] [place] [address], [place] [phone] SP 11 Sep, 2009 SP [facility] [address] [id number] [address] [place] [address], [place] [address] SP Jun, SP [facility] [address] [id number] [address] [place] [address], [place] [address] SP Jun, SP [facility] [address] [id number] [address] [place] [address], [place] [address] SP Jun, SP [facility] [address] [id number] [address] [place] [address], [place] [address] SP Jun, SP [facility] [address] [id number] [address] [place] [id number] SP Jun, SP [facility] [address] [id number] [address] [place] [address], [place] [address] SP Jun, SP [facility] [address] [id number] [address] [place] [address], [place] [address] SP Jun, SP [facility] [address] [id number] [address] [place] [address], [place] [address] SP May, SP [facility] [address] [id number] [address] [place] [phone] SP May, SP [facility] [address] [id number] [address] [place] [address], [place] [address] SP May, SP [facility] [address] [id number] [address] [place] [address], [place] [address] SP May, SP [facility] [address] [id number] [address] [place] [phone] SP Apr, SP [facility] [place] [facility] [address] [facility] [id number] [address] [place] [phone] SP Apr, SP [facility] [address] [facility] [id number] [address] [place] [phone] SP Apr, SP [facility] [address] [facility] [id number] [address] [place] [phone] SP Mar, [facility] [address] [facility] [id number] [address] [place] [phone] SP Dec, SP IMMUNIZATIONS No Known Immunizations SOCIAL HISTORY Never Assessed REASON FOR VISIT Medication question PLAN OF CARE VITAL SIGNS MEDICATIONS Unknown [...]
--- OUTSIDE RECORDS SUMMARY | 2019-06-14 01:36 | XMS REPORT ---
Author Author JALEN PEREZ POS Organization [facility] [place] SP Address [address] [place] [address] SP Care Team Providers Care Cae Engineer Name Role Phone POS RISSAKARTIKFLAQUITOY Unavailable SP PROBLEMS Type Condition ICD9-CM Code [id number] Code Onset Dates Condition S tatus SNOMED POS Problem Type 2 diabetes mellitus with hyperglycemia E11.65 Active POS Problem Major depressive disorder, recurrent episode, moderate F33.1 Active SP Problem Obsessive-compulsive disorder, unspecified type F4 2.9 Active SP Problem Ataxia R27.0 Active 50303640 SP Problem Falls frequently R29.6 Active 279 [id number] SP Problem Type 2 diabetes mellitus with other diab etic neurological complication SP E11.49 Active 75630048 SP Problem 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 Active 811630208 SP Problem History of pulmonary embolism Z86.711 Active 944247135 SP Problem Type 2 diabetes mellitus with other diabetic kid allen complication SP Active 61289540 SP Problem Insomnia G47.00 Active 467725434 SP Problem Degenerative disc disease, lumbar M51.36 Active 66168738 SP Problem HTN (hypertension) I10 Active 3 5211712 SP Problem Hyperlipidemia E78.5 Active 54837 004 SP Problem CAD (coronary artery disease) I25.10 Active 61148765 SP Problem Chronic pain G89.29 Active 2647154 1 SP Problem Post-traumatic stress disorder F43.10 Active 60047943 SP ALLERGIES No Information ENCOUNTERS Encounter Location Date Diagnosis POS [facility] [place] [address] [facility] [id number] [address] [place] [phone] SP Apr, SP [facility] [place] [address] [facility] [id number] [address] [place] [phone] SP Mar, SP [facility] [place] [address] [facility] [id number] [address] [place] [phone] SP Feb, Type 2 diabetes mellitus wit h other diabetic neurological SP E11.49 ; 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.29 ; Degenerative disc disease, lumbar M51.36 and Chronic pain G89.29 [facility] [place] [address] [id number] [address] [place] [phone] SP Jan, SP [facility] [place] [address] [facility] [id number] [address] [place] [phone] SP Jan, SP [facility] [place] [address] [facility] [id number] [address] [place] [phone] SP Jan, SP [facility] [place] [address] [facility] [id number] [place] [phone] SP Jan, SP [facility] [place] [address] [facility] [id number] [address] [place] [phone] SP Jan, SP [facility] [place] [address] [facility] [id number] [address] [place] [phone] SP Jan, SP [facility] [place] [address] [facility] [id number] [address] [place] [phone] SP Jan, Slurred speech R47.81 ; Atax ia R27.0 and Left arm weakness SP [facility] [place] [address] [facility] [id number] [address] [place] [phone] SP Jan, SP [facility] [place] [address] [facility] [id number] [address] [place] [phone] SP Jan, Type 2 diabetes mellitus wit h hyperglycemia E11.65 and SP vomiting with nausea, unspecified vomiting type R11.2 [facility] [place] [address] [facility] [id number] [address] [place] [phone] SP Dec, CAD (coronary artery disease ) I25.10 and Atypical chest pain SP [facility] [place] [address] [facility] [id number] [address] [place] [phone] SP Dec, SP [facility] [place] [address] [facility] [id number] [address] [place] [phone] SP Dec, Diabetes E11.9 ; Type 2 diab etes mellitus with hyperglycemia SP and Intractable vomiting with nausea, unspecified vomiting type R11.2 [facility] [place] [address] [facility] [id number] [address] [place] [phone] SP Dec, Chronic pain G89.29 SP [facility] [place] [address] [facility] [id number] [address] [place] [phone] SP November, SP [place] [address] [facility] [id number] [address] [place] [phone] SP November, Diabetes E11.9 ; CAD (trinidad ry artery disease) I25.10 ; Atypical SP pain R07.89 ; Type 2 diabetes mellitus with hyperglycemia E11.65 ; 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.29 ; 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 and Chronic pain G89.29 [place] [address] [facility] [id number] [address] [place] [phone] SP Oct, SP [facility] [place] [address] [facility] [id number] [address] [place] [phone] SP Oct, Chronic pain G89.29 SP [place] [address] [facility] [id number] [address] [place] [phone] SP Sep, Diabetes E11.9 SP [facility] [place] [address] [facility] [id number] [address] [place] [phone] SP Sep, Chronic pain G89.29 SP [facility] [place] [address] [facility] [id number] [address] [place] [phone] SP Sep, SP [facility] [place] [address] [facility] [id number] [address] [place] [phone] SP Sep, Falls frequently R29.6 ; Elier g term 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.4 SP Type 2 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 E11.49 [place] [address] [facility] [id number] [address] [place] [phone] SP Sep, SP [facility] [place] [address] [facility] [id number] [address] [place] [phone] SP Sep, Diabetes E11.9 SP [facility] [place] [address] [facility] [id number] [address] [place] [phone] SP Aug, SP [facility] [place] [address] [facility] [id number] [address] [place] [phone] SP Aug, Chronic pain G89.29 SP [facility] [place] [address] [facility] [id number] [address] [place] [phone] SP Aug, SP [facility] [place] [address] [facility] [id number] [address] [place] [phone] SP Aug, Chronic pain G89.29 SP [facility] [place] [address] [facility] [id number] [address] [place] [phone] SP Jul, SP [facility] [place] [address] [facility] [id number] [address] [place] [phone] SP Jul, Diabetes E11.9 and Type 2 di abetes mellitus with other diabetic SP complication E11.29 [facility] [place] [address] [facility] [id number] [address] [place] [phone] SP Jul, Type 2 diabetes mellitus wit h other diabetic kidney complication SP [facility] [place] [address] [facility] [id number] [address] [place] [phone] SP Jul, SP [facility] [place] [address] [facility] [id number] [address] [place] [phone] SP Jul, Chronic pain G89.29 SP [facility] [place] [address] [facility] [id number] [address] [place] [phone] SP Jun, Diabetes E11.9 SP [facility] [place] [address] [facility] [id number] [address] [place] [phone] SP Jun, Chronic pain G89.29 SP [facility] [place] [address] [facility] [id number] [address] [place] [phone] SP Jun, Diabetes E11.9 ; Atypical ch est pain R07.89 ; nursing home current SP of insulin Z79.4 ; 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.29 ; Type 2 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 E11.49 ; History of pulmonary embolism Z86.711 and History of CVA (cerebrovascular accident) Z86.73 [facility] [place] [address] [facility] [id number] [address] [place] [phone] SP May, SP [facility] [place] [address] [facility] [id number] [address] [place] [phone] SP May, Chronic pain G89.29 SP [facility] [place] [address] [facility] [id number] [address] [place] [phone] SP Apr, Chronic pain G89.29 SP [facility] [place] [address] [facility] [id number] [address] [place] [phone] SP Apr, SP [facility] [place] [address] [facility] [id number] [address] [place] [phone] SP Mar, Chronic pain G89.29 SP [facility] [place] [address] [facility] [id number] [address] [place] [phone] SP Mar, Diabetes E11.9 SP [facility] [place] [address] [facility] [id number] [address] [place] [phone] SP Mar, SP [facility] [place] [address] [facility] [id number] [address] [place] [phone] SP Mar, Degenerative disc disease, l umbar M51.36 SP [facility] [place] [address] [facility] [id number] [address] [place] [phone] SP Feb, Diabetes E11.9 SP [facility] [place] [address] [facility] [id number] [address] [place] [phone] SP Feb, Diabetes E11.9 SP [facility] [place] [address] [facility] [id number] [address] [place] [phone] SP Feb, Diabetes E11.9 ; HTN (hypert ension) I10 ; Diabetic neuropathy SP and Leg cramps R25.2 [facility] [place] [address] [id number] [address] [place] [phone] SP 15 Feb, 2017 Sprain of calcaneofibular li gament of right ankle, subsequent SP S93.411D ; Major depressive disorder, recurrent episode, moderate F33.1 ; Diabetes E11.9 ; Hyperlipidemia E78.5 ; Post-traumatic stress disorder F43.10 and Other irritable bowel syndrome K58.8 [facility] [place] [address] [id number] [address] [place] [phone] SP 14 Feb, 2017 Major depressive disorder, r ecurrent episode, moderate F33.1 ; SPtraumatic stress disorder F43.10 and Obsessive-compulsive disorder, unspecified type F42.9 [place] [address] [id number] [address] [place] [phone] SP Feb, SP [place] [address] [facility] [id number] [address] [place] [phone] SP Feb, Post-traumatic stress disord er F43.10 and Major depressive SP recurrent, moderate F33.1 [place] [address] [facility] [id number] [address] [place] [phone] SP Feb, Diabetes E11.9 SP [place] [address] [facility] [id number] [address] [place] [phone] SP Feb, Degenerative disc disease, l umbar M51.36 SP [facility] [place] [address] [id number] [address] [place] [phone] SP Feb, Post-traumatic stress disord er F43.10 and Major depressive SP recurrent, moderate F33.1 [place] [address] [facility] [id number] [address] [place] [phone] SP Feb, SP [place] [address] [facility] [id number] [address] [place] [phone] SP Feb, Diabetes E11.9 SP [place] [address] [id number] [address] [place] [phone] SP Jan, Diabetes E11.9 SP [facility] [place] [address] [id number] [address] [place] [phone] SP Jan, Post-traumatic stress disord er F43.10 and Major depressive SP recurrent, moderate F33.1 [facility] [place] [address] [id number] [address] [place] [phone] SP Jan, Diabetes E11.9 SP [facility] [place] [address] [id number] [address] [place] [phone] SP Jan, Diabetes E11.9 SP [facility] [place] [address] [id number] [address] [place] [phone] SP Jan, SP [facility] [place] [address] [facility] [id number] [address] [place] [phone] SP Jan, SP [facility] [place] [address] [facility] [id number] [address] [place] [phone] SP Jan, Post-traumatic stress disord er F43.10 and Major depressive SP recurrent, moderate F33.1 [facility] [place] [address] [id number] [address] [place] [phone] SP Jan, SP [facility] [place] [address] [facility] [id number] [address] [place] [phone] SP Jan, Major depressive disorder, r ecurrent episode, moderate F33.1 ; SPtraumatic stress disorder F43.10 and Obsessive-compulsive disorder, unspecified type F42.9 [facility] [place] [address] [id number] [address] [place] [phone] SP Jan, SP [facility] [place] [address] [facility] [id number] [address] [place] [phone] SP Jan, Diabetes E11.9 SP [facility] [place] [address] [facility] [id number] [address] [place] [phone] SP Jan, SP [facility] [place] [address] [id number] [address] [place] [phone] SP Jan, Sprain of calcaneofibular li gament of right ankle, subsequent SP S93.411D [facility] [place] [address] [id number] [address] [place] [phone] SP Jan, Post-traumatic stress disord er F43.10 and Major depressive SP recurrent, moderate F33.1 [facility] [place] [address] [id number] [address] [place] [phone] SP Jan, Diabetes E11.9 SP [facility] [place] [address] [facility] [id number] [address] [place] [phone] SP 16 Dec, 2016 Major depressive disorder, r ecurrent episode, moderate F33.1 ; SPtraumatic stress disorder F43.10 and Obsessive-compulsive disorder, unspecified type F42.9 [facility] [place] [address] [id number] [address] [place] [phone] SP 15 Dec, 2016 SP [place] [address] [facility] [id number] [address] [place] [phone] SP 14 Dec, 2016 Sprain of calcaneofibular li gament of right ankle, subsequent SP S93.411D [facility] [place] [address] [facility] [id number] [address] [place] [phone] SP Dec, Post-traumatic stress disord er F43.10 and Major depressive SP recurrent, moderate F33.1 [facility] [place] [address] [id number] [address] [place] [phone] SP Dec, Sprain of calcaneofibular li gament of right ankle, subsequent SP S93.411D [facility] [place] [address] [facility] [id number] [address] [place] [phone] SP Dec, Hyperlipidemia E78.5 SP [facility] [place] [address] [facility] [id number] [address] [place] [phone] SP Dec, SP [facility] [place] [address] [facility] [id number] [address] [place] [phone] SP Dec, Diabetes E11.9 ; Diabetic ne uropathy E11.40 ; Degenerative disc SP lumbar M51.36 ; Hyperlipidemia E78.5 ; Insomnia G47.00 ; CAD (coronary artery disease) I25.10 ; Major depressive disorder, recurrent, moderate F33.1 ; Post- traumatic stress disorder F43.10 and Other irritable bowel syndrome K58.8 [place] [address] [phone] SP November, Diabetic neuropathy E11.40 a nd Hyperlipidemia E78.5 SP [place] [address] [phone] SP November, Degenerative disc disease, l umbar M51.36 SP [place] [address] [phone] SP Oct, [place] [address] [phone] SP Oct, Degenerative disc disease, l umbar M51.36 SP [place] [address] [place] [id number] [place] [phone] SP Sep, Degenerative disc disease, l umbar M51.36 and HTN (hypertension) SP [place] [address] [place] [id number] [place] [phone] SP Sep, Diabetic neuropathy E11.40 ; HTN (hypertension) I10 ; SP disc disease, lumbar M51.36 ; Hyperlipidemia E78.5 ; Insomnia G47.00 ; CAD (coronary artery disease) I25.10 and Diabetes E11.9 [place] [address] [place] [id number] [place] [phone] SP Aug, [place] [address] [place] [id number] [place] [phone] SP Aug, Type 2 diabetes mellitus wit h hyperglycemia E11.65 SP [place] [address] [place] [id number] [place] [phone] SP Aug, SP [facility] [place] [address] [id number] [address] [place] [phone] SP Jul, SP [facility] [place] [address] [facility] [id number] [address] [place] [phone] SP Jul, SP [facility] [place] [address] [facility] [id number] [address] [place] [phone] SP Jun, SP [facility] [place] [address] [facility] [id number] [address] [place] [phone] SP Jun, SP [facility] [place] [address] [facility] [id number] [address] [place] [phone] SP Jun, SP [facility] [place] [address] [facility] [id number] [address] [place] [phone] SP Jun, SP [facility] [place] [address] [facility] [id number] [address] [place] [phone] SP May, Major depressive disorder, r ecurrent episode, moderate F33.1 and SPtraumatic stress disorder F43.10 [facility] [place] [address] [facility] [id number] [address] [place] [phone] SP May, Major depressive disorder, r ecurrent episode, moderate F33.1 and SPtraumatic stress disorder F43.10 [facility] [place] [address] [facility] [id number] [address] [place] [phone] SP May, Diabetes E11.9 ; Diabetic ne uropathy E11.40 ; HTN (hypertension) SP ; Gastritis K29.70 ; Hyperlipidemia E78.5 ; Insomnia G47.00 and Major depressive disorder, recurrent, moderate F33.1 [facility] [place] [address] [facility] [id number] [address] [place] [phone] SP May, Major depressive disorder, r ecurrent episode, moderate F33.1 SP [facility] [place] [address] [facility] [id number] [address] [place] [phone] SP Apr, SP [facility] [place] [address] [facility] [id number] [address] [place] [phone] SP Apr, Major depressive disorder, r ecurrent episode, moderate F33.1 and SPtraumatic stress disorder F43.10 [place] [address] [facility] [id number] [address] [place] [phone] SP Apr, Diabetes E11.9 ; Diabetic ne uropathy E11.40 ; Degenerative disc SP lumbar M51.36 ; HTN (hypertension) I10 ; Hyperlipidemia E78.5 ; Chronic pain G89.29 ; CAD (coronary artery disease) I25.10 and Major depressive disorder, recurrent, moderate F33.1 [place] [address] [facility] [id number] [address] [place] [phone] SP Apr, Major depressive disorder, r ecurrent episode, moderate F33.1 and SPtraumatic stress disorder F43.10 [place] [address] [place] [id number] [place] [phone] SP Apr, Major depressive disorder, r ecurrent episode, moderate F33.1 and SPtraumatic stress disorder F43.10 [place] [address] [facility] [id number] [address] [place] [phone] SP Apr, Major depressive disorder, r ecurrent episode, moderate F33.1 and SP episodic mood disorder F39 [place] [address] [place] [id number] [address] [place] [phone] SP Apr, Chronic pain G89.29 ; Diabet ic neuropathy E11.40 ; HTN SP I10 ; Insomnia G47.00 ; CAD (coronary artery disease) I25.10 ; Hyperlipidemia E78.5 ; Degenerative disc disease, lumbar M51.36 ; Diabetes E11.9 and Gastritis K29.70 [facility] [place] [address] [facility] [id number] [address] [place] [phone] SP Sep, SP [facility] [place] [address] [facility] [id number] [address] [place] [phone] SP Aug, SP [facility] [place] [address] [place] [id number] [place] [phone] SP Jul, Major depressive disorder, r ecurrent episode, moderate F33.1 SP [facility] [place] [address] [facility] [id number] [address] [place] [phone] SP Jul, Unspecified episodic mood di sorder F39 SP [facility] [place] [address] [facility] [id number] [address] [place] [phone] SP Jul, SP [facility] [place] [address] [facility] [id number] [address] [place] [phone] SP Jul, SP [facility] [place] [address] [facility] [id number] [address] [place] [phone] SP Jul, SP [place] [address] [facility] [id number] [address] [place] [phone] SP Jul, Type 2 diabetes mellitus wit h hyperglycemia E11.65 ; Diabetic SP E11.40 ; Degenerative disc disease, lumbar M51.36 ; HTN (hypertension) I10 ; Gastritis K29.70 ; Hyperlipidemia E78.5 and CAD (coronary artery disease) I25.10 [place] [address] [facility] [id number] [address] [place] [phone] SP Jul, Severe episode of recurrent major depressive disorder, without SP features F33.2 [place] [address] [facility] [id number] [address] [place] [phone] SP Jul, SP [facility] [place] [address] [facility] [id number] [address] [place] [phone] SP Jun, SP [facility] [place] [address] [facility] [id number] [address] [place] [phone] SP Jun, Diabetes E11.9 ; Diabetic ne uropathy E11.40 ; Degenerative disc SP lumbar M51.36 ; HTN (hypertension) I10 ; Gastritis K29.70 ; Hyperlipidemia E78.5 ; Unspecified episodic mood disorder F39 ; Depression F32.9 and CAD (coronary artery disease) I25.10 [facility] [place] [address] [facility] [id number] [address] [place] [phone] SP Jun, SP [facility] [place] [address] [facility] [id number] [address] [place] [phone] SP Jun, SP [facility] [place] [address] [facility] [id number] [address] [place] [phone] SP Jun, Diabetes E11.9 ; Diabetic ne uropathy E11.40 ; Degenerative disc SP lumbar M51.36 ; HTN (hypertension) I10 ; Gastritis K29.70 ; Chronic pain G89.29 ; Insomnia G47.00 and Unspecified episodic mood disorder F39 [facility] [place] [address] [facility] [id number] [address] [place] [phone] SP May, Diabetic neuropathy E11.40 ; Degenerative disc disease, lumbar SP ; HTN (hypertension) I10 ; Gastritis K29.70 ; Hyperlipidemia E78.5 ; Chronic pain G89.29 ; Insomnia G47.00 ; Unspecified episodic mood disorder F39 ; Diabetes E11.9 ; CAD (coronary artery disease) I25.10 and H/O Gram positive sepsis Z86.19 [facility] [place] [address] [facility] [id number] [address] [place] [phone] SP May, SP [facility] [place] [address] [facility] [id number] [place] [phone] SP May, SP [facility] [place] [address] [place] [id number] [address] [place] [phone] SP May, SP [facility] [place] [address] [facility] [id number] [address] [place] [phone] SP May, SP [facility] [place] [address] [facility] [id number] [address] [place] [phone] SP May, UTI (urinary tract infection ) N39.0 ; Diabetes E11.9 ; Diabetic SP E11.40 ; Hyperlipidemia E78.5 and Chronic pain G89.29 [facility] [place] [address] [facility] [id number] [address] [place] [phone] SP May, Insomnia, unspecified G47.00 and Chronic pain G89.29 SP [place] [address] [facility] [id number] [address] [place] [phone] SP May, SP [facility] [place] [address] [facility] [id number] [address] [place] [phone] SP May, SP [facility] [place] [address] [facility] [id number] [address] [place] [phone] SP May, SP [facility] [place] [address] [facility] [id number] [address] [place] [phone] SP Apr, Insomnia, unspecified G47.00 ; Chronic pain G89.29 and SP episodic mood disorder F39 [facility] [place] [address] [facility] [id number] [address] [place] [phone] SP Apr, Unspecified episodic mood di sorder F39 SP [facility] [place] [address] [facility] [id number] [place] [phone] SP Apr, Major depression F32.9 SP [facility] [place] [address] [facility] [id number] [address] [place] [phone] SP Apr, SP [facility] [place] [address] [facility] [id number] [address] [place] [phone] SP Apr, Diabetes E11.9 ; Diabetic ne uropathy E11.40 ; Degenerative disc SP lumbar M51.36 ; HTN (hypertension) I10 ; Gastritis K29.70 ; Hyperlipidemia E78.5 ; Chronic pain G89.29 and Insomnia G47.00 [facility] [place] [address] [facility] [id number] [address] [place] [phone] SP Mar, SP [facility] [place] [address] [facility] [id number] [address] [place] [phone] SP Mar, SP [facility] [place] [address] [facility] [id number] [address] [place] [phone] SP Mar, SP [facility] [place] [address] [facility] [id number] [address] [place] [phone] SP Mar, Diabetes mellitus 250.00 ; D iabetic neuropathy 250.60 ; CAD SP artery disease) 414.00 ; Degenerative disc disease, lumbar 722.52 ; Gastritis 535.50 and Insomnia 780.52 [facility] [place] [address] [phone] SP Mar, Diabetes mellitus 250.00 ; D egenerative disc disease, lumbar SP ; Essential hypertension 401.9 ; Gastritis 535.50 and Chronic pain 338.29 [facility] [place] [address] [phone] SP Feb, SP [facility] [place] [address] [phone] SP Feb, SP [facility] [place] [address] [phone] SP Jan, SP [facility] [place] [address] [phone] SP Jan, Diabetes mellitus 250.00 ; D iabetic neuropathy 250.60 ; SP disc disease, lumbar 722.52 ; CAD (coronary artery disease) 414.00 ; Essential hypertension 401.9 ; Gastritis 535.50 ; Hyperlipidemia 272.4 and Distal end of ulna fracture, closed 813.43 [place] [address] [phone] SP Dec, Wrist pain 719.43 and Diabet es mellitus 250.00 SP [facility] [place] [address] [phone] SP May, SP [facility] [place] [address] [phone] SP Dec, SP [facility] [place] [address] [phone] SP November, SP [facility] [place] [address] [phone] SP Oct, [facility] [address] [phone] SP 17 Sep, 2009 SP [facility] [address] [id number] [address] [place] [address], [place] [address] SP 11 Sep, 2009 SP [facility] [address] [id number] [address] [place] [address], [place] [address] SP Jun, SP [facility] [address] [id number] [address] [place] [address], [place] [address] SP Jun, SP [facility] [address] [id number] [address] [place] [address], [place] [address] SP 14 Jun, 2009 SP [facility] [address] [id number] [address] [place] [address], [place] [address] SP Jun, SP [facility] [address] [id number] [address] [place] [phone] SP Jun, SP [facility] [address] [id number] [address] [place] [phone] SP Jun, SP [facility] [address] [id number] [address] [place] [address], [place] [address] SP Jun, SP [facility] [address] [id number] [address] [place] [phone] SP May, SP [facility] [address] [id number] [address] [place] [phone] SP May, SP [facility] [address] [id number] [address] [place] [phone] SP May, SP [facility] [address] [id number] [address] [place] [address], [place] [address] SP May, SP [facility] [address] [id number] [address] [place] [phone] SP Apr, SP [facility] [address] [id number] [address] [place] [phone] SP Apr, SP [facility] [address] [facility] [id number] [address] [address] SP Apr, SP [facility] [place] [address] [facility] [id number] [address] [address] SP Mar, SP [facility] [place] [address] [facility] [id number] [address] [address] SP Dec, SP IMMUNIZATIONS No Known Immunizations [...]
--- OUTSIDE RECORDS SUMMARY | 2019-06-14 01:36 | XMS REPORT ---
Author Author JALEN PEREZ POS Organization [facility] SP Address [address] [place] [address] SP Care Team Providers Care Rn Diabetes Educator Name Role Phone POS RISSAKARTIKFLAQUITOY Unavailable SP PROBLEMS Type Condition ICD9-CM Code [id number] Code Onset Dates Condition S tatus SNOMED POS Problem Type 2 diabetes mellitus with hyperglycemia E11.65 Active POS Problem Major depressive disorder, recurrent episode, moderate F33.1 Active SP Problem Obsessive-compulsive disorder, unspecified type F4 2.9 Active SP Problem Ataxia R27.0 Active [id number] SP Problem Falls frequently R29.6 Active [id number] SP Problem Type 2 diabetes mellitus with other diab etic neurological complication SP E11.49 Active 58960550 SP Problem oysterman 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.4 Active 780914647 SP Problem History of pulmonary embolism Z86.711 Active 128640529 SP Problem Type 2 diabetes mellitus with other diabetic kid allen complication SP Active 49019748 SP Problem Insomnia G47.00 Active 972770224 SP Problem Degenerative disc disease, lumbar M51.36 Active 49609406 SP Problem HTN (hypertension) I10 Active 3 1106363 SP Problem Hyperlipidemia E78.5 Active 41616 004 SP Problem CAD (coronary artery disease) I25.10 Active 97865609 SP Problem Chronic pain G89.29 Active 1306829 1 SP Problem Post-traumatic stress disorder F43.10 Active 87402424 SP ALLERGIES No Information ENCOUNTERS Encounter Location Date Diagnosis POS [facility] [address] [facility] [id number] [address] [place] [phone] SP Apr, SP [facility] [address] [facility] [id number] [address] [place] [phone] SP Mar, SP [facility] [address] [facility] [id number] [address] [place] [phone] SP Feb, Type 2 diabetes mellitus wit h other diabetic neurological SP E11.49 ; 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.29 ; Degenerative disc disease, lumbar M51.36 and Chronic pain G89.29 [facility] [address] [id number] [address] [place] [phone] SP Jan, SP [facility] [address] [facility] [id number] [address] [place] [address] SP Jan, SP [facility] [address] [facility] [id number] [address] [place] [phone] SP Jan, SP [facility] [address] [facility] [id number] [place] [phone] SP Jan, SP [facility] [address] [facility] [id number] [address] [place] [phone] SP Jan, SP [facility] [address] [facility] [id number] [address] [place] [phone] SP Jan, SP [facility] [address] [facility] [id number] [address] [place] [phone] SP Jan, Slurred speech R47.81 ; Atax ia R27.0 and Left arm weakness SP [facility] [address] [facility] [id number] [address] [place] [phone] SP Jan, SP [facility] [address] [facility] [id number] [address] [place] [phone] SP Jan, Type 2 diabetes mellitus wit h hyperglycemia E11.65 and SP vomiting with nausea, unspecified vomiting type R11.2 [facility] [address] [facility] [id number] [address] [place] [phone] SP Dec, CAD (coronary artery disease ) I25.10 and Atypical chest pain SP [facility] [address] [facility] [id number] [address] [place] [phone] SP Dec, SP [facility] [address] [facility] [id number] [address] [place] [phone] SP Dec, Diabetes E11.9 ; Type 2 diab etes mellitus with hyperglycemia SP and Intractable vomiting with nausea, unspecified vomiting type R11.2 [facility] [address] [facility] [id number] [address] [place] [phone] SP Dec, Chronic pain G89.29 SP [facility] [address] [facility] [id number] [address] [place] [phone] SP November, SP [place] [address] [address] [facility] [id number] [address] [place] [phone] SP November, Diabetes E11.9 ; CAD (trinidad ry artery disease) I25.10 ; Atypical SP pain R07.89 ; Type 2 diabetes mellitus with hyperglycemia E11.65 ; 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.29 ; oysterman 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.4 and Chronic pain G89.29 [place] [address] [facility] [id number] [address] [place] [phone] SP Oct, SP [facility] [address] [facility] [id number] [address] [place] [phone] SP Oct, Chronic pain G89.29 SP [place] [address] [facility] [id number] [address] [place] [phone] SP Sep, Diabetes E11.9 SP [facility] [address] [facility] [id number] [address] [place] [phone] SP Sep, Chronic pain G89.29 SP [facility] [address] [facility] [id number] [address] [place] [phone] SP Sep, SP [facility] [address] [facility] [id number] [address] [place] [phone] SP Sep, Falls frequently R29.6 ; Elire g term 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.4 SP Type 2 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 E11.49 [place] [address] [facility] [id number] [address] [place] [phone] SP Sep, SP [facility] [address] [facility] [id number] [address] [place] [phone] SP Sep, Diabetes E11.9 SP [facility] [address] [facility] [id number] [address] [place] [phone] SP Aug, SP [facility] [address] [facility] [id number] [address] [place] [phone] SP Aug, Chronic pain G89.29 SP [facility] [address] [facility] [id number] [address] [place] [phone] SP Aug, SP [facility] [address] [facility] [id number] [address] [place] [phone] SP Aug, Chronic pain G89.29 SP [facility] [address] [facility] [id number] [address] [place] [phone] SP Jul, SP [facility] [address] [facility] [id number] [address] [place] [phone] SP Jul, Diabetes E11.9 and Type 2 di abetes mellitus with other diabetic SP complication E11.29 [facility] [address] [facility] [id number] [address] [place] [phone] SP Jul, Type 2 diabetes mellitus wit h other diabetic kidney complication SP [facility] [address] [facility] [id number] [address] [place] [phone] SP Jul, SP [facility] [address] [facility] [id number] [address] [place] [phone] SP Jul, Chronic pain G89.29 SP [facility] [address] [facility] [id number] [address] [place] [phone] SP Jun, Diabetes E11.9 SP [facility] [address] [facility] [id number] [address] [place] [address] SP Jun, Chronic pain G89.29 SP [facility] [address] [facility] [id number] [address] [place] [phone] SP Jun, Diabetes E11.9 ; Atypical ch est pain R07.89 ; custodial current SP of insulin Z79.4 ; 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.29 ; Type 2 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 E11.49 ; History of pulmonary embolism Z86.711 and History of CVA (cerebrovascular accident) Z86.73 [facility] [address] [facility] [id number] [address] [place] [phone] SP May, SP [facility] [address] [facility] [id number] [address] [place] [phone] SP May, Chronic pain G89.29 SP [facility] [address] [facility] [id number] [address] [place] [phone] SP Apr, Chronic pain G89.29 SP [facility] [address] [facility] [id number] [address] [place] [phone] SP Apr, SP [facility] [address] [facility] [id number] [address] [place] [phone] SP Mar, Chronic pain G89.29 SP [facility] [address] [facility] [id number] [address] [place] [phone] SP Mar, Diabetes E11.9 SP [facility] [address] [facility] [id number] [address] [place] [phone] SP Mar, SP [facility] [address] [facility] [id number] [address] [place] [phone] SP Mar, Degenerative disc disease, l umbar M51.36 SP [facility] [address] [facility] [id number] [address] [place] [phone] SP Feb, Diabetes E11.9 SP [facility] [address] [facility] [id number] [address] [place] [phone] SP Feb, Diabetes E11.9 SP [facility] [address] [facility] [id number] [address] [place] [phone] SP Feb, Diabetes E11.9 ; HTN (hypert ension) I10 ; Diabetic neuropathy SP and Leg cramps R25.2 [facility] [address] [id number] [address] [place] [phone] SP 15 Feb, 2017 Sprain of calcaneofibular li gament of right ankle, subsequent SP S93.411D ; Major depressive disorder, recurrent episode, moderate F33.1 ; Diabetes E11.9 ; Hyperlipidemia E78.5 ; Post-traumatic stress disorder F43.10 and Other irritable bowel syndrome K58.8 [facility] [address] [id number] [address] [place] [phone] SP 14 Feb, 2017 Major depressive disorder, r ecurrent episode, moderate F33.1 ; SPtraumatic stress disorder F43.10 and Obsessive-compulsive disorder, unspecified type F42.9 [place] [address] [id number] [address] [place] [phone] SP Feb, SP [place] [address] [facility] [id number] [address] [place] [phone] SP Feb, Post-traumatic stress disord er F43.10 and Major depressive SP recurrent, moderate F33.1 [place] [address] [facility] [id number] [address] [place] [phone] SP Feb, Diabetes E11.9 SP [place] [address] [facility] [id number] [address] [place] [phone] SP Feb, Degenerative disc disease, l umbar M51.36 SP [facility] [address] [id number] [address] [place] [phone] SP Feb, Post-traumatic stress disord er F43.10 and Major depressive SP recurrent, moderate F33.1 [place] [address] [facility] [id number] [address] [place] [phone] SP Feb, SP [place] [address] [facility] [id number] [address] [place] [phone] SP Feb, Diabetes E11.9 SP [place] [address] [id number] [address] [place] [phone] SP Jan, Diabetes E11.9 SP [facility] [address] [id number] [address] [place] [phone] SP Jan, Post-traumatic stress disord er F43.10 and Major depressive SP recurrent, moderate F33.1 [facility] [address] [id number] [address] [place] [phone] SP Jan, Diabetes E11.9 SP [facility] [address] [id number] [address] [place] [phone] SP Jan, Diabetes E11.9 SP [facility] [address] [id number] [address] [place] [phone] SP Jan, SP [facility] [address] [facility] [id number] [address] [place] [phone] SP Jan, SP [facility] [address] [facility] [id number] [address] [place] [phone] SP Jan, Post-traumatic stress disord er F43.10 and Major depressive SP recurrent, moderate F33.1 [facility] [address] [id number] [address] [place] [phone] SP Jan, SP [facility] [address] [facility] [id number] [address] [place] [phone] SP Jan, Major depressive disorder, r ecurrent episode, moderate F33.1 ; SPtraumatic stress disorder F43.10 and Obsessive-compulsive disorder, unspecified type F42.9 [facility] [address] [id number] [address] [place] [phone] SP Jan, SP [facility] [address] [facility] [id number] [address] [place] [phone] SP Jan, Diabetes E11.9 SP [facility] [address] [facility] [id number] [address] [place] [phone] SP Jan, SP [facility] [address] [id number] [address] [place] [phone] SP Jan, Sprain of calcaneofibular li gament of right ankle, subsequent SP S93.411D [facility] [address] [id number] [address] [place] [phone] SP Jan, Post-traumatic stress disord er F43.10 and Major depressive SP recurrent, moderate F33.1 [facility] [address] [id number] [address] [place] [phone] SP Jan, Diabetes E11.9 SP [facility] [address] [facility] [id number] [address] [place] [phone] SP 16 Dec, 2016 Major depressive disorder, r ecurrent episode, moderate F33.1 ; SPtraumatic stress disorder F43.10 and Obsessive-compulsive disorder, unspecified type F42.9 [facility] [address] [id number] [address] [place] [phone] SP 15 Dec, 2016 SP [place] [address] [facility] [id number] [address] [place] [phone] SP 14 Dec, 2016 Sprain of calcaneofibular li gament of right ankle, subsequent SP S93.411D [facility] [address] [facility] [id number] [address] [place] [phone] SP Dec, Post-traumatic stress disord er F43.10 and Major depressive SP recurrent, moderate F33.1 [facility] [address] [id number] [address] [place] [phone] SP Dec, Sprain of calcaneofibular li gament of right ankle, subsequent SP S93.411D [facility] [address] [facility] [id number] [address] [place] [phone] SP Dec, Hyperlipidemia E78.5 SP [facility] [address] [facility] [id number] [address] [place] [phone] SP Dec, SP [facility] [address] [facility] [id number] [address] [place] [phone] SP Dec, Diabetes E11.9 ; Diabetic ne uropathy E11.40 ; Degenerative disc SP lumbar M51.36 ; Hyperlipidemia E78.5 ; Insomnia G47.00 ; CAD (coronary artery disease) I25.10 ; Major depressive disorder, recurrent, moderate F33.1 ; Post- traumatic stress disorder F43.10 and Other irritable bowel syndrome K58.8 [place] [address] [phone] SP November, Diabetic neuropathy E11.40 a nd Hyperlipidemia E78.5 SP [place] [address] [phone] SP November, Degenerative disc disease, l umbar M51.36 SP [place] [address] [phone] SP Oct, [place] [address] [phone] SP Oct, Degenerative disc disease, l umbar M51.36 SP [place] [address] [place] [id number] [place] [phone] SP Sep, Degenerative disc disease, l umbar M51.36 and HTN (hypertension) SP [place] [address] [place] [id number] [phone] SP Sep, Diabetic neuropathy E11.40 ; HTN (hypertension) I10 ; SP disc disease, lumbar M51.36 ; Hyperlipidemia E78.5 ; Insomnia G47.00 ; CAD (coronary artery disease) I25.10 and Diabetes E11.9 [place] [address] [place] [id number] [place] [phone] SP Aug, [place] [address] [place] [id number] [place] [phone] SP Aug, Type 2 diabetes mellitus wit h hyperglycemia E11.65 SP [place] [address] [place] [id number] [place] [phone] SP Aug, SP [facility] [address] [id number] [address] [place] [phone] SP Jul, SP [facility] [address] [facility] [id number] [address] [place] [phone] SP Jul, SP [facility] [address] [facility] [id number] [address] [place] [phone] SP Jun, SP [facility] [address] [facility] [id number] [address] [place] [phone] SP Jun, SP [facility] [address] [facility] [id number] [address] [place] [phone] SP Jun, SP [facility] [address] [facility] [id number] [address] [place] [phone] SP Jun, SP [facility] [address] [facility] [id number] [address] [place] [phone] SP May, Major depressive disorder, r ecurrent episode, moderate F33.1 and SPtraumatic stress disorder F43.10 [facility] [address] [facility] [id number] [address] [place] [phone] SP May, Major depressive disorder, r ecurrent episode, moderate F33.1 and SPtraumatic stress disorder F43.10 [facility] [address] [facility] [id number] [address] [place] [phone] SP May, Diabetes E11.9 ; Diabetic ne uropathy E11.40 ; HTN (hypertension) SP ; Gastritis K29.70 ; Hyperlipidemia E78.5 ; Insomnia G47.00 and Major depressive disorder, recurrent, moderate F33.1 [facility] [address] [facility] [id number] [address] [place] [phone] SP May, Major depressive disorder, r ecurrent episode, moderate F33.1 SP [facility] [address] [facility] [id number] [address] [place] [phone] SP Apr, SP [facility] [address] [facility] [id number] [address] [place] [phone] SP Apr, Major depressive disorder, r ecurrent episode, moderate F33.1 and SPtraumatic stress disorder F43.10 [place] [address] [facility] [id number] [address] [place] [phone] SP Apr, Diabetes E11.9 ; Diabetic ne uropathy E11.40 ; Degenerative disc SP lumbar M51.36 ; HTN (hypertension) I10 ; Hyperlipidemia E78.5 ; Chronic pain G89.29 ; CAD (coronary artery disease) I25.10 and Major depressive disorder, recurrent, moderate F33.1 [place] [address] [facility] [id number] [address] [place] [phone] SP Apr, Major depressive disorder, r ecurrent episode, moderate F33.1 and SPtraumatic stress disorder F43.10 [place] [address] [place] [id number] [place] [phone] SP Apr, Major depressive disorder, r ecurrent episode, moderate F33.1 and SPtraumatic stress disorder F43.10 [place] [address] [facility] [id number] [address] [place] [phone] SP Apr, Major depressive disorder, r ecurrent episode, moderate F33.1 and SP episodic mood disorder F39 [place] [address] [place] [id number] [address] [place] [phone] SP Apr, Chronic pain G89.29 ; Diabet ic neuropathy E11.40 ; HTN SP I10 ; Insomnia G47.00 ; CAD (coronary artery disease) I25.10 ; Hyperlipidemia E78.5 ; Degenerative disc disease, lumbar M51.36 ; Diabetes E11.9 and Gastritis K29.70 [facility] [address] [facility] [id number] [address] [place] [phone] SP Sep, SP [facility] [address] [facility] [id number] [address] [place] [phone] SP Aug, SP [facility] [address] [place] [id number] [place] [phone] SP Jul, Major depressive disorder, r ecurrent episode, moderate F33.1 SP [facility] [address] [facility] [id number] [address] [place] [phone] SP Jul, Unspecified episodic mood di sorder F39 SP [facility] [address] [facility] [id number] [address] [place] [phone] SP Jul, SP [facility] [address] [facility] [id number] [address] [place] [phone] SP Jul, SP [facility] [address] [facility] [id number] [address] [place] [phone] SP Jul, SP [place] [address] [facility] [id number] [address] [place] [phone] SP Jul, Type 2 diabetes mellitus wit h hyperglycemia E11.65 ; Diabetic SP E11.40 ; Degenerative disc disease, lumbar M51.36 ; HTN (hypertension) I10 ; Gastritis K29.70 ; Hyperlipidemia E78.5 and CAD (coronary artery disease) I25.10 [place] [id number] [facility] [id number] [address] [place] [phone] SP Jul, Severe episode of recurrent major depressive disorder, without SP features F33.2 [place] [id number] [facility] [id number] [address] [place] [phone] SP Jul, SP [facility] [address] [facility] [id number] [address] [place] [phone] SP Jun, SP [facility] [address] [facility] [id number] [address] [place] [phone] SP Jun, Diabetes E11.9 ; Diabetic ne uropathy E11.40 ; Degenerative disc SP lumbar M51.36 ; HTN (hypertension) I10 ; Gastritis K29.70 ; Hyperlipidemia E78.5 ; Unspecified episodic mood disorder F39 ; Depression F32.9 and CAD (coronary artery disease) I25.10 [facility] [address] [facility] [id number] [address] [place] [phone] SP Jun, SP [facility] [address] [facility] [facility] [id number] [address] [place] [phone] SP Jun, SP [facility] [address] [facility] [id number] [address] [place] [phone] SP Jun, Diabetes E11.9 ; Diabetic ne uropathy E11.40 ; Degenerative disc SP lumbar M51.36 ; HTN (hypertension) I10 ; Gastritis K29.70 ; Chronic pain G89.29 ; Insomnia G47.00 and Unspecified episodic mood disorder F39 [facility] [address] [facility] [id number] [address] [place] [phone] SP May, Diabetic neuropathy E11.40 ; Degenerative disc disease, lumbar SP ; HTN (hypertension) I10 ; Gastritis K29.70 ; Hyperlipidemia E78.5 ; Chronic pain G89.29 ; Insomnia G47.00 ; Unspecified episodic mood disorder F39 ; Diabetes E11.9 ; CAD (coronary artery disease) I25.10 and H/O Gram positive sepsis Z86.19 [facility] [address] [facility] [id number] [address] [place] [phone] SP May, SP [facility] [address] [facility] [id number] [phone] SP May, SP [facility] [address] [place] [id number] [address] [place] [phone] SP May, SP [facility] [address] [facility] [id number] [address] [place] [phone] SP May, SP [facility] [address] [facility] [id number] [address] [place] [phone] SP May, UTI (urinary tract infection ) N39.0 ; Diabetes E11.9 ; Diabetic SP E11.40 ; Hyperlipidemia E78.5 and Chronic pain G89.29 [facility] [address] [facility] [id number] [address] [place] [phone] SP May, Insomnia, unspecified G47.00 and Chronic pain G89.29 [facility] [place] [id number] [facility] [id number] [address] [place] [phone] SP May, SP [facility] [address] [facility] [id number] [address] [place] [phone] SP May, SP [facility] [address] [facility] [id number] [address] [place] [phone] SP May, SP [facility] [address] [facility] [id number] [address] [place] [phone] SP Apr, Insomnia, unspecified G47.00 ; Chronic pain G89.29 and SP episodic mood disorder F39 [facility] [address] [facility] [id number] [address] [place] [phone] SP Apr, Unspecified episodic mood di sorder F39 SP [facility] [address] [facility] [id number] [place] [phone] SP Apr, Major depression F32.9 SP [facility] [address] [facility] [id number] [address] [place] [phone] SP Apr, SP [facility] [address] [facility] [id number] [address] [place] [phone] SP Apr, Diabetes E11.9 ; Diabetic ne uropathy E11.40 ; Degenerative disc SP lumbar M51.36 ; HTN (hypertension) I10 ; Gastritis K29.70 ; Hyperlipidemia E78.5 ; Chronic pain G89.29 and Insomnia G47.00 [facility] [address] [facility] [id number] [address] [place] [phone] SP Mar, SP [facility] [address] [facility] [id number] [address] [place] [phone] SP Mar, SP [facility] [address] [facility] [id number] [address] [place] [phone] SP Mar, SP [facility] [address] [facility] [id number] [address] [place] [phone] SP Mar, Diabetes mellitus 250.00 ; D iabetic neuropathy 250.60 ; CAD SP artery disease) 414.00 ; Degenerative disc disease, lumbar 722.52 ; Gastritis 535.50 and Insomnia 780.52 [facility] [address] [address] SP Mar, Diabetes mellitus 250.00 ; D egenerative disc disease, lumbar SP ; Essential hypertension 401.9 ; Gastritis 535.50 and Chronic pain 338.29 [facility] [address] [phone] SP Feb, SP [facility] [address] [address] SP Feb, SP [facility] [address] [phone] SP Jan, SP [facility] [address] [address] SP Jan, Diabetes mellitus 250.00 ; D iabetic neuropathy 250.60 ; SP disc disease, lumbar 722.52 ; CAD (coronary artery disease) 414.00 ; Essential hypertension 401.9 ; Gastritis 535.50 ; Hyperlipidemia 272.4 and Distal end of ulna fracture, closed 813.43 [place] [address] [id number] SP Dec, Wrist pain 719.43 and Diabet es mellitus 250.00 SP [facility] [address] [address] SP May, SP [facility] [address] [phone] SP Dec, SP [facility] [address] [phone] SP November, SP [facility] [address] [id number] SP Oct, [facility] [address] [address] SP 17 Sep, 2009 SP [facility] [address] [id number] [address] [place] [address], [place] [address] SP 11 Sep, 2009 SP [facility] [address] [id number] [address] [place] [address], [place] [phone] SP Jun, SP [facility] [address] [id number] [address] [place] [address], [place] [address] SP Jun, SP [facility] [address] [id number] [address] [place] [address], [place] [address] SP 14 Jun, 2009 SP [facility] [address] [id number] [address] [place] [address], [place] [address] SP Jun, SP [facility] [address] [id number] [address] [place] [phone] SP Jun, SP [facility] [address] [id number] [address] [place] [phone] SP Jun, SP [facility] [address] [id number] [address] [place] [address], [place] [phone] SP Jun, SP [facility] [address] [id number] [address] [place] [phone] SP May, SP [facility] [address] [id number] [address] [place] [phone] SP May, SP [facility] [address] [id number] [address] [place] [phone] SP May, SP [facility] [address] [id number] [address] [place] [address], [place] [address] SP May, SP [facility] [address] [id number] [address] [place] [phone] SP Apr, SP [facility] [address] [id number] [address] [place] [phone] SP Apr, SP [facility] [address] [facility] [id number] [address] [address] SP Apr, SP [facility] [address] [facility] [id number] [address] [address] SP Mar, SP [facility] [address] [facility] [id number] [address] [address] SP Dec, SP IMMUNIZATIONS No Known Immunizations SOCIAL HISTORY Never Assessed REASON FOR VISIT PLAN OF CARE VITAL SIGNS MEDICATIONS Unknown [...]
--- OUTSIDE RECORDS SUMMARY | 2019-06-14 01:37 | XMS REPORT ---
Author Author JALEN PEREZ POS Organization [facility] SP Address [address] [place] [address] SP Care Team Providers Care Environmental Engineer Scientist Name Role Phone POS JALEN PEREZ Unavailable SP PROBLEMS Type Condition ICD9-CM Code VRR39-FW Code Onset Dates Condition S tatus SNOMED POS Problem Type 2 diabetes mellitus with hyperglycemia E11.65 Active POS Problem Major depressive disorder, recurrent episode, moderate F33.1 Active SP Problem Obsessive-compulsive disorder, unspecified type F4 2.9 Active SP Problem Ataxia R27.0 Active 22195990 SP Problem Falls frequently R29.6 Active 279 900715 SP Problem Type 2 diabetes mellitus with other diab etic neurological complication SP E11.49 Active 31682051 SP 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 Active 795880897 SP Problem History of pulmonary embolism Z86.711 Active 694832763 SP Problem Type 2 diabetes mellitus with other diabetic kid allen complication SP Active 46347639 SP Problem Insomnia G47.00 Active 666890954 SP Problem Degenerative disc disease, lumbar M51.36 Active 14080824 SP Problem HTN (hypertension) I10 Active 3 6795432 SP Problem Hyperlipidemia E78.5 Active 49876 004 SP Problem CAD (coronary artery disease) I25.10 Active 53177227 SP Problem Chronic pain G89.29 Active 0302205 1 SP Problem Post-traumatic stress disorder F43.10 Active 69337996 SP ALLERGIES Substance Reaction Event Type Date Status POS Viibryd N/V Drug Allergy Dec, Active SP Seroquel N/V and "couldn't do anything." Drug Allergy Dec, 018 Active SP Penicillin V Potassium Unknown Drug Allergy Dec, Activ e SP Lexapro N/V, inc. suicidality Drug Allergy Dec, Active SP Ibuprofen Unknown Drug Allergy Dec, Active SP Depakote inc. suicidality Drug Allergy Dec, Active SP ENCOUNTERS Encounter Location Date Diagnosis POS [facility] [address] [facility] [id number] [address] [place] [id number] SP Mar, SP [facility] [address] [id number] [address] [place] [id number] SP Feb, Type 2 diabetes mellitus wit h other diabetic neurological SP E11.49 ; 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.29 ; Degenerative disc disease, lumbar M51.36 and Chronic pain G89.29 [facility] [address] [id number] [address] [place] [phone] SP Jan, SP [facility] [address] [id number] [address] [place] [phone] SP Jan, SP [facility] [address] [id number] [address] [place] [phone] SP Jan, SP [facility] [address] [id number] [address] [place] [phone] SP Jan, SP [facility] [address] [id number] [address] [place] [phone] SP Jan, SP [facility] [address] [id number] [address] [place] [id number] SP Jan, SP [facility] [address] [id number] [address] [place] [id number] SP Jan, Slurred speech R47.81 ; Atax ia R27.0 and Left arm weakness SP [facility] [address] [id number] [address] [place] [phone] SP Jan, SP [facility] [address] [id number] [address] [place] [id number] SP Jan, Type 2 diabetes mellitus wit h hyperglycemia E11.65 and SP vomiting with nausea, unspecified vomiting type R11.2 [facility] [address] [id number] [address] [place] [phone] SP Dec, CAD (coronary artery disease ) I25.10 and Atypical chest pain SP [facility] [address] [id number] [address] [place] [phone] SP Dec, SP [facility] [address] [id number] [address] [place] [phone] SP Dec, Diabetes E11.9 ; Type 2 diab etes mellitus with hyperglycemia SP and Intractable vomiting with nausea, unspecified vomiting type R11.2 [facility] [address] [id number] [address] [place] [phone] SP Dec, Chronic pain G89.29 SP [facility] [address] [id number] [address] [place] [phone] SP November, SP [facility] [id number] [place] [phone] SP November, Diabetes E11.9 ; CAD (trin[place] ry artery disease) I25.10 ; Atypical SP pain R07.89 ; Type 2 diabetes mellitus with hyperglycemia E11.65 ; 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.29 ; 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 and Chronic pain G89.29 [facility] [address] [id number] [address] [place] [id number] SP Oct, SP [facility] [address] [id number] [address] [place] [id number] SP Oct, Chronic pain G89.29 SP [facility] [address] [id number] [address] [place] [id number] SP Sep, Diabetes E11.9 SP [facility] [address] [id number] [address] [place] [phone] SP Sep, Chronic pain G89.29 SP [facility] [address] [id number] [address] [place] [id number] SP Sep, SP [facility] [address] [id number] [address] [place] [phone] SP Sep, Falls frequently R29.6 ; Elier g term 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.4 SP Type 2 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 E11.49 [facility] [address] [id number] [address] [place] [phone] SP Sep, SP [facility] [address] [id number] [address] [place] [phone] SP Sep, Diabetes E11.9 SP [facility] [address] [id number] [address] [place] [id number] SP Aug, SP [facility] [address] [id number] [address] [place] [phone] SP Aug, Chronic pain G89.29 SP [facility] [address] [id number] [address] [place] [phone] SP Aug, SP [facility] [address] [id number] [address] [place] [phone] SP Aug, Chronic pain G89.29 SP [facility] [address] [id number] [address] [place] [phone] SP Jul, SP [facility] [address] [id number] [address] [place] [phone] SP Jul, Diabetes E11.9 and Type 2 di abetes mellitus with other diabetic SP complication E11.29 [facility] [address] [id number] [address] [place] [phone] SP Jul, Type 2 diabetes mellitus wit h other diabetic kidney complication SP [facility] [address] [id number] [address] [place] [phone] SP Jul, SP [facility] [address] [id number] [address] [place] [phone] SP Jul, Chronic pain G89.29 SP [facility] [address] [id number] [address] [place] [id number] SP Jun, Diabetes E11.9 SP [facility] [address] [id number] [address] [place] [id number] SP Jun, Chronic pain G89.29 SP [facility] [address] [id number] [address] [place] [phone] SP Jun, Diabetes E11.9 ; Atypical ch est pain R07.89 ; custodial current SP of insulin Z79.4 ; 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.29 ; Type 2 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 E11.49 ; History of pulmonary embolism Z86.711 and History of CVA (cerebrovascular accident) Z86.73 [facility] [address] [id number] [address] [place] [phone] SP May, SP [facility] [address] [id number] [address] [place] [phone] SP May, Chronic pain G89.29 SP [facility] [address] [id number] [address] [place] [phone] SP Apr, Chronic pain G89.29 SP [facility] [address] [id number] [address] [place] [phone] SP Apr, SP [facility] [address] [id number] [address] [place] [phone] SP Mar, Chronic pain G89.29 SP [facility] [address] [id number] [address] [place] [phone] SP Mar, Diabetes E11.9 SP [facility] [address] [id number] [address] [place] [phone] SP Mar, SP [facility] [address] [id number] [address] [place] [phone] SP Mar, Degenerative disc disease, l umbar M51.36 SP [facility] [address] [id number] [address] [place] [phone] SP Feb, Diabetes E11.9 SP [facility] [address] [id number] [address] [place] [id number] SP Feb, Diabetes E11.9 SP [facility] [address] [id number] [address] [place] [id number] SP 16 Feb, 2017 Diabetes E11.9 ; HTN (hypert ension) I10 ; Diabetic neuropathy SP and Leg cramps R25.2 [facility] [address] [id number] [address] [place] [phone] SP 15 Feb, 2017 Sprain of calcaneofibular li gament of right ankle, subsequent SP S93.411D ; Major depressive disorder, recurrent episode, moderate F33.1 ; Diabetes E11.9 ; Hyperlipidemia E78.5 ; Post-traumatic stress disorder F43.10 and Other irritable bowel syndrome K58.8 [facility] [address] [id number] [address] [place] [phone] SP 14 Feb, 2017 Major depressive disorder, r ecurrent episode, moderate F33.1 ; SPtraumatic stress disorder F43.10 and Obsessive-compulsive disorder, unspecified type F42.9 [facility] [address] [id number] [address] [place] [phone] SP Feb, SP [facility] [address] [id number] [address] [place] [phone] SP Feb, Post-traumatic stress disord er F43.10 and Major depressive SP recurrent, moderate F33.1 [facility] [address] [id number] [address] [place] [phone] SP Feb, Diabetes E11.9 SP [facility] [address] [id number] [address] [place] [phone] SP Feb, Degenerative disc disease, l umbar M51.36 SP [facility] [address] [id number] [address] [place] [phone] SP Feb, Post-traumatic stress disord er F43.10 and Major depressive SP recurrent, moderate F33.1 [facility] [address] [id number] [address] [place] [phone] SP Feb, SP [facility] [address] [id number] [address] [place] [phone] SP Feb, Diabetes E11.9 SP [facility] [address] [id number] [address] [place] [phone] SP Jan, Diabetes E11.9 SP [facility] [address] [id number] [address] [place] [phone] SP Jan, Post-traumatic stress disord er F43.10 and Major depressive SP recurrent, moderate F33.1 [facility] [address] [id number] [address] [place] [id number] SP Jan, Diabetes E11.9 SP [facility] [address] [id number] [address] [place] [id number] SP Jan, Diabetes E11.9 SP [facility] [address] [id number] [address] [place] [phone] SP Jan, SP [facility] [address] [id number] [address] [place] [phone] SP Jan, SP [facility] [address] [id number] [address] [place] [id number] SP Jan, Post-traumatic stress disord er F43.10 and Major depressive SP recurrent, moderate F33.1 [facility] [address] [id number] [address] [place] [id number] SP Jan, SP [facility] [address] [id number] [address] [place] [phone] SP Jan, Major depressive disorder, r ecurrent episode, moderate F33.1 ; SPtraumatic stress disorder F43.10 and Obsessive-compulsive disorder, unspecified type F42.9 [facility] [address] [id number] [address] [place] [phone] SP Jan, SP [facility] [address] [id number] [address] [place] [id number] SP Jan, Diabetes E11.9 SP [facility] [address] [id number] [address] [place] [phone] SP Jan, SP [facility] [address] [id number] [address] [place] [phone] SP Jan, Sprain of calcaneofibular li gament of right ankle, subsequent SP S93.411D [facility] [address] [id number] [address] [place] [phone] SP Jan, Post-traumatic stress disord er F43.10 and Major depressive SP recurrent, moderate F33.1 [place] [address] [id number] [address] [place] [phone] SP Jan, Diabetes E11.9 SP [place] [address] [facility] [id number] [address] [place] [phone] SP 16 Dec, 2016 Major depressive disorder, r ecurrent episode, moderate F33.1 ; SPtraumatic stress disorder F43.10 and Obsessive-compulsive disorder, unspecified type F42.9 [place] [address] [id number] [address] [place] [phone] SP 15 Dec, 2016 SP [place] [address] [id number] [address] [place] [phone] SP 14 Dec, 2016 Sprain of calcaneofibular li gament of right ankle, subsequent SP S93.411D [place] [address] [id number] [address] [place] [phone] SP Dec, Post-traumatic stress disord er F43.10 and Major depressive SP recurrent, moderate F33.1 [facility] [address] [id number] [address] [place] [phone] SP 13 Dec, 2016 Sprain of calcaneofibular li gament of right ankle, subsequent SP S93.411D [place] [address] [facility] [id number] [address] [place] [phone] SP Dec, Hyperlipidemia E78.5 SP [place] [address] [facility] [id number] [address] [place] [phone] SP Dec, SP [place] [address] [facility] [facility] [id number] [address] [place] [phone] SP Dec, Diabetes E11.9 ; Diabetic ne uropathy E11.40 ; Degenerative disc SP lumbar M51.36 ; Hyperlipidemia E78.5 ; Insomnia G47.00 ; CAD (coronary artery disease) I25.10 ; Major depressive disorder, recurrent, moderate F33.1 ; Post- traumatic stress disorder F43.10 and Other irritable bowel syndrome K58.8 [facility] [address] [facility] [facility] [id number] [address] [place] [phone] SP November, Diabetic neuropathy E11.40 a nd Hyperlipidemia E78.5 SP [place] [address] [facility] [id number] [address] [place] [phone] SP November, Degenerative disc disease, l umbar M51.36 SP [place] [address] [facility] [id number] [address] [place] [phone] SP Oct, [place] [address] [id number] [address] [place] [phone] SP Oct, Degenerative disc disease, l umbar M51.36 SP [place] [address] [facility] [id number] [address] [place] [phone] SP Sep, Degenerative disc disease, l umbar M51.36 and HTN (hypertension) SP [place] [address] [facility] [id number] [address] [place] [phone] SP Sep, Diabetic neuropathy E11.40 ; HTN (hypertension) I10 ; SP disc disease, lumbar M51.36 ; Hyperlipidemia E78.5 ; Insomnia G47.00 ; CAD (coronary artery disease) I25.10 and Diabetes E11.9 [place] [address] [facility] [facility] [id number] [address] [place] [id number] SP Aug, [place] [address] [facility] [id number] [address] [place] [phone] SP Aug, Type 2 diabetes mellitus wit h hyperglycemia E11.65 SP [facility] [address] [id number] [address] [place] [phone] SP Aug, SP [facility] [address] [id number] [address] [place] [id number] SP Jul, SP [facility] [address] [facility] [facility] [id number] [address] [place] [id number] SP Jul, SP [facility] [address] [facility] [id number] [address] [place] [phone] SP Jun, SP [facility] [address] [facility] [id number] [address] [place] [phone] SP Jun, SP [facility] [address] [facility] [id number] [address] [place] [phone] SP Jun, SP [facility] [address] [facility] [id number] [address] [place] [phone] SP Jun, SP [facility] [address] [id number] [address] [place] [phone] SP May, Major depressive disorder, r ecurrent episode, moderate F33.1 and SPtraumatic stress disorder F43.10 [place] [address] [facility] [id number] [address] [place] [phone] SP May, Major depressive disorder, r ecurrent episode, moderate F33.1 and SPtraumatic stress disorder F43.10 [facility] [address] [id number] [address] [place] [phone] SP May, Diabetes E11.9 ; Diabetic ne uropathy E11.40 ; HTN (hypertension) SP ; Gastritis K29.70 ; Hyperlipidemia E78.5 ; Insomnia G47.00 and Major depressive disorder, recurrent, moderate F33.1 [facility] [address] [facility] [id number] [address] [place] [phone] SP May, Major depressive disorder, r ecurrent episode, moderate F33.1 [facility] [place] [address] [facility] [id number] [address] [place] [phone] SP Apr, SP [facility] [address] [facility] [id number] [address] [place] [phone] SP Apr, Major depressive disorder, r ecurrent episode, moderate F33.1 and SPtraumatic stress disorder F43.10 [place] [address] [facility] [id number] [address] [place] [phone] SP Apr, Diabetes E11.9 ; Diabetic ne uropathy E11.40 ; Degenerative disc SP lumbar M51.36 ; HTN (hypertension) I10 ; Hyperlipidemia E78.5 ; Chronic pain G89.29 ; CAD (coronary artery disease) I25.10 and Major depressive disorder, recurrent, moderate F33.1 [place] [address] [id number] SP Apr, Major depressive disorder, r ecurrent episode, moderate F33.1 and SPtraumatic stress disorder F43.10 [place] [address] [id number] SP Apr, Major depressive disorder, r ecurrent episode, moderate F33.1 and SPtraumatic stress disorder F43.10 [place] [id number] [place] [id number] SP Apr, Major depressive disorder, r ecurrent episode, moderate F33.1 and SP episodic mood disorder F39 [place] [address] [facility] [id number] [address] [place] [address] SP Apr, Chronic pain G89.29 ; Diabet ic neuropathy E11.40 ; HTN SP I10 ; Insomnia G47.00 ; CAD (coronary artery disease) I25.10 ; Hyperlipidemia E78.5 ; Degenerative disc disease, lumbar M51.36 ; Diabetes E11.9 and Gastritis K29.70 [place] [address] [place] [id number] [address] [place] [id number] SP Sep, SP [facility] [address] [facility] [id number] [address] [place] [id number] SP Aug, SP [facility] [address] [facility] [id number] [address] [place] [id number] SP Jul, Major depressive disorder, r ecurrent episode, moderate F33.1 SP [facility] [address] [place] [id number] [place] [id number] SP Jul, Unspecified episodic mood di sorder F39 SP [facility] [address] [facility] [id number] [address] [place] [phone] SP Jul, SP [facility] [address] [facility] [id number] [place] [phone] SP Jul, SP [place] [address] [place] [id number] [place] [phone] SP Jul, SP [facility] [address] [place] [id number] [address] [place] [phone] SP Jul, Type 2 diabetes mellitus wit h hyperglycemia E11.65 ; Diabetic SP E11.40 ; Degenerative disc disease, lumbar M51.36 ; HTN (hypertension) I10 ; Gastritis K29.70 ; Hyperlipidemia E78.5 and CAD (coronary artery disease) I25.10 [place] [address] [place] [id number] [address] [place] [id number] SP Jul, Severe episode of recurrent major depressive disorder, without SP features F33.2 [facility] [address] [facility] [id number] [address] [place] [id number] SP Jul, SP [facility] [address] [facility] [id number] [address] [place] [phone] SP Jun, SP [facility] [address] [facility] [id number] [address] [place] [address] SP Jun, Diabetes E11.9 ; Diabetic ne uropathy E11.40 ; Degenerative disc SP lumbar M51.36 ; HTN (hypertension) I10 ; Gastritis K29.70 ; Hyperlipidemia E78.5 ; Unspecified episodic mood disorder F39 ; Depression F32.9 and CAD (coronary artery disease) I25.10 [facility] [address] [facility] [id number] [address] [place] [phone] SP Jun, SP [facility] [address] [place] [id number] [address] [place] [phone] SP Jun, SP [facility] [address] [place] [id number] [place] [id number] SP Jun, Diabetes E11.9 ; Diabetic ne uropathy E11.40 ; Degenerative disc SP lumbar M51.36 ; HTN (hypertension) I10 ; Gastritis K29.70 ; Chronic pain G89.29 ; Insomnia G47.00 and Unspecified episodic mood disorder F39 [place] [address] [place] [id number] [place] [phone] SP May, Diabetic neuropathy E11.40 ; Degenerative disc disease, lumbar SP ; HTN (hypertension) I10 ; Gastritis K29.70 ; Hyperlipidemia E78.5 ; Chronic pain G89.29 ; Insomnia G47.00 ; Unspecified episodic mood disorder F39 ; Diabetes E11.9 ; CAD (coronary artery disease) I25.10 and H/O Gram positive sepsis Z86.19 [facility] [address] [facility] [id number] [address] [place] [id number] SP May, SP [facility] [address] [facility] [id number] [address] [place] [id number] SP May, SP [facility] [address] [facility] [id number] [address] [place] [id number] SP May, SP [facility] [address] [facility] [id number] [address] [place] [id number] SP May, SP [facility] [facility] [address] [facility] [id number] [address] [place] [phone] SP May, UTI (urinary tract infection ) N39.0 ; Diabetes E11.9 ; Diabetic SP E11.40 ; Hyperlipidemia E78.5 and Chronic pain G89.29 [facility] [address] [facility] [id number] [address] [place] [phone] SP May, Insomnia, unspecified G47.00 and Chronic pain G89.29 SP [facility] [address] [facility] [id number] [address] [place] [id number] SP May, SP [facility] [address] [facility] [id number] [address] [place] [id number] SP May, SP [facility] [address] [facility] [id number] [address] [place] [id number] SP May, SP [facility] [address] [facility] [id number] [place] [phone] SP Apr, Insomnia, unspecified G47.00 ; Chronic pain G89.29 and SP episodic mood disorder F39 [facility] [address] [place] [id number] [address] [place] [phone] SP Apr, Unspecified episodic mood di sorder F39 SP [facility] [address] [facility] [id number] [address] [place] [id number] SP Apr, Major depression F32.9 SP [facility] [address] [facility] [id number] [address] [place] [phone] SP Apr, SP [facility] [address] [place] [id number] [address] [place] [id number] SP Apr, Diabetes E11.9 ; Diabetic ne uropathy E11.40 ; Degenerative disc SP lumbar M51.36 ; HTN (hypertension) I10 ; Gastritis K29.70 ; Hyperlipidemia E78.5 ; Chronic pain G89.29 and Insomnia G47.00 [facility] [address] [facility] [id number] [address] [place] [phone] SP Mar, SP [facility] [address] [facility] [id number] [address] [place] [id number] SP Mar, SP [facility] [address] [id number] SP Mar, [facility] [address] [id number] SP Mar, Diabetes mellitus 250.00 ; D iabetic neuropathy 250.60 ; CAD SP artery disease) 414.00 ; Degenerative disc disease, lumbar 722.52 ; Gastritis 535.50 and Insomnia 780.52 [place] [address] [phone] SP Mar, Diabetes mellitus 250.00 ; D egenerative disc disease, lumbar SP ; Essential hypertension 401.9 ; Gastritis 535.50 and Chronic pain 338.29 [place] [address] [phone] SP Feb, [place] [address] [id number] SP Feb, [place] [address] [phone] SP Jan, [place] [address] [id number] SP Jan, Diabetes mellitus 250.00 ; D iabetic neuropathy 250.60 ; SP disc disease, lumbar 722.52 ; CAD (coronary artery disease) 414.00 ; Essential hypertension 401.9 ; Gastritis 535.50 ; Hyperlipidemia 272.4 and Distal end of ulna fracture, closed 813.43 [place] [address] [id number] SP Dec, Wrist pain 719.43 and Diabet es mellitus 250.00 SP [place] [address] [phone] SP May, [place] [address] [phone] SP Dec, [place] [address] [id number] SP 13 Nov, 2009 SP [facility] [address] [id number] [address] [place] [address], [place] [phone] SP 16 Oct, 2009 SP [facility] [address] [id number] [address] [place] [address], [place] [id number] SP 17 Sep, 2009 SP [facility] [address] [id number] [address] [place] [address], [place] [phone] SP 11 Sep, 2009 SP [facility] [address] [id number] [address] [place] [address], [place] [phone] SP Jun, SP [facility] [address] [id number] [address] [place] [address], [place] [id number] SP Jun, SP [facility] [address] [id number] [address] [place] [address], [place] [phone] SP 14 Jun, 2009 SP [facility] [address] [id number] [address] [place] [address], [place] [phone] SP Jun, SP [facility] [address] [id number] [address] [place] [address], [place] [phone] SP Jun, SP [facility] [address] [id number] [address] [place] [address], [place] [phone] SP Jun, SP [facility] [address] [id number] [address] [place] [address], [place] [phone] SP Jun, SP [facility] [address] [id number] [address] [place] [phone] SP May, SP [facility] [address] [id number] [address] [place] [address], [place] [id number] SP May, SP [facility] [address] [id number] [address] [place] [address], [place] [phone] SP May, SP [facility] [address] [id number] [address] [place] [address], [place] [phone] SP May, SP [facility] [address] [facility] [id number] [address] [place] [phone] SP Apr, SP [facility] [address] [facility] [id number] [address] [place] [phone] SP Apr, SP [facility] [address] [facility] [id number] [address] [place] [phone] SP Apr, SP [facility] [address] [facility] [id number] [address] [place] [phone] SP Mar, SP [facility] [address] [facility] [id number] [address] [place] [phone] SP Dec, SP IMMUNIZATIONS No Known Immunizations SOCIAL HISTORY Never Assessed REASON FOR VISIT Vomiting and diarrhea, began 5 days ago, nothing OTC helps-AHarrymanRN PLAN OF CARE Activity Details POS SP Follow Up 2 - 3 Days with Corrina pierre N/ V Reason: SP VITAL SIGNS Height 61 in 2018-01-05 POS Weight 128.7 lbs 2018-01-05 POS Temperature 97.9 degrees Fahrenheit 2018-01-05 POS Heart Rate 94 bpm 2018-01-05 POS Respiratory Rate 20 2018-01-05 POS BMI 24.31 kg/m2 2018-01-05 POS Blood pressure systolic 102 mmHg 2018-01-05 POS Blood pressure diastolic 62 mmHg 2018-01-05 POS MEDICATIONS Medication Instructions Dosage Frequency Start Date End Date Duration S tatus POS NovoLog Flexpen 100 UNIT/ML Subcutaneous 3 times a day with meals inject 40 SP Active SP Accu-Chek Deepika Plus w/Device subcutaneously 4 times a day check reyes gars 6h 23 2016 Active SP Metformin HCl 500 mg DX- E11.65 at supper 2 tablets Aug, 30 day(s) SP Pen Burton 31G X 6 MM as directed 6h 29 Dec, 2014 Active SP Plavix 75 MG TAKE 1 TABLET EVERY DAY 28 Active SP Hydrocodone-Acetaminophen 10-325 MG Orally 3 times a day 1 tablet a s needed 8h SP Dec, 2017 28 days Active SP Crestor 40 mg Orally Once a day 1 tablet 24h Active SP HydrOXYzine HCl 50 mg Orally at bedtime as needed for sleep 1 table 14 Feb, 30 days Active SP Prazosin HCl 2 MG Orally at bedtime 1 capsule Feb, 30 day(s) Active SP Janumet 50-500 MG Orally Twice a day 1 tablet with meals 12h Aug, 30 SP Active SP Gabapentin 300 MG TAKE 1 CAPSULE THREE TIMES DAILY 90 Active SP Actos 15 mg Orally Once a day 1 tablet 24h Sep, 30 d ay(s) Active SP Metoclopramide HCl 10 mg Orally every 6 hours 1 tab 6h 90 days Active SP Aspir-81 81 MG Orally Once a day 1 tablet 24h Active SP Accu-Chek Softclix Lancets - subcutaneously 4 times a day us e to check blood SP 6h Feb, Active SP Levemir FlexTouch 100 UNIT/ML Subcutaneous 55 units bid inject Active SP Lamictal 100 mg Orally Once a day 1 tablet 24h Feb, 30 day(s) Active SP Accu-Chek Deepika Plus - subcutaneously 4 times a day to check glucos e 6h Feb, Active SP Lisinopril-Hydrochlorothiazide 20-25 MG Orally Once a day 1 tablet 24h Dec, SP Active SP Zofran 8 MG Orally q6 hr PRN 1 tablet Dec, 30 da y(s) Active SP RESULTS No Results PROCEDURES Procedure Date Ordered Result Body Site POS GLUCOSE BLOOD TEST January 05, 2018 SP URINALYSIS, AUTO, W/O SCOPE January 05, 2018 SP VENIPUNCT, ROUTINE* January 05, 2018 SP LAB NOT BILLED BY [facility] January 05, 2018 SP INSTRUCTIONS MEDICATIONS ADMINISTERED No Known [...]
--- OUTSIDE RECORDS SUMMARY | 2019-06-14 01:37 | XMS REPORT ---
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 Name Role Phone POS JALEN PEREZ Unavailable SP PROBLEMS Type Condition ICD9-CM Code BUU98-OQ Code Onset Dates Condition S tatus SNOMED POS Problem Type 2 diabetes mellitus with hyperglycemia E11.65 Active POS Problem Major depressive disorder, recurrent episode, moderate F33.1 Active SP Problem Obsessive-compulsive disorder, unspecified type F4 2.9 Active SP Problem Ataxia R27.0 Active 89713720 SP Problem Falls frequently R29.6 Active 279 325906 SP Problem Type 2 diabetes mellitus with other diab etic neurological complication SP E11.49 Active 64055293 SP Problem 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 designer 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.4 Active 384392862 SP Problem History of pulmonary embolism Z86.711 Active 722496061 SP Problem Type 2 diabetes mellitus with other diabetic kid allen complication SP Active 24824458 SP Problem Insomnia G47.00 Active 299435791 SP Problem Degenerative disc disease, lumbar M51.36 Active 11286204 SP Problem HTN (hypertension) I10 Active 3 7196819 SP Problem Hyperlipidemia E78.5 Active 96941 004 SP Problem CAD (coronary artery disease) I25.10 Active 66614265 SP Problem Chronic pain G89.29 Active 2633756 1 SP Problem Post-traumatic stress disorder F43.10 Active 31408835 SP ALLERGIES Substance Reaction Event Type Date Status POS Viibryd N/V Drug Allergy Jan, Active SP Seroquel N/V and "couldn't do anything." Drug Allergy Jan, 018 Active SP Penicillin V Potassium Unknown Drug Allergy Jan, Activ e SP Lexapro N/V, inc. suicidality Drug Allergy Jan, Active SP Ibuprofen Unknown Drug Allergy Jan, Active SP Depakote inc. suicidality Drug Allergy Jan, Active SP ENCOUNTERS Encounter Location Date Diagnosis POS [facility] [address] [facility] [id number] [address] [place] [phone] SP Mar, SP [facility] [address] [facility] [id number] [address] [place] [phone] SP Feb, Type 2 diabetes mellitus wit h other diabetic neurological SP E11.49 ; 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.29 ; Degenerative disc disease, lumbar M51.36 and Chronic pain G89.29 [facility] [address] [facility] [id number] [address] [place] [phone] SP Jan, SP [facility] [address] [facility] [id number] [place] [phone] SP Jan, SP [facility] [address] [facility] [id number] [address] [place] [phone] SP Jan, SP [facility] [address] [facility] [id number] [address] [place] [phone] SP Jan, SP [facility] [address] [facility] [id number] [address] [place] [phone] SP Jan, SP [facility] [address] [facility] [id number] [address] [place] [phone] SP Jan, SP [facility] [address] [facility] [id number] [address] [place] [phone] SP Jan, Slurred speech R47.81 ; Atax ia R27.0 and Left arm weakness SP [facility] [address] [facility] [id number] [address] [place] [id number] SP Jan, SP [facility] [address] [facility] [id number] [address] [place] [phone] SP Jan, Type 2 diabetes mellitus wit h hyperglycemia E11.65 and SP vomiting with nausea, unspecified vomiting type R11.2 [facility] [address] [facility] [id number] [address] [place] [address] SP Dec, CAD (coronary artery disease ) I25.10 and Atypical chest pain SP [facility] [address] [facility] [id number] [address] [place] [phone] SP Dec, SP [facility] [address] [facility] [id number] [address] [place] [phone] SP Dec, Diabetes E11.9 ; Type 2 diab etes mellitus with hyperglycemia SP and Intractable vomiting with nausea, unspecified vomiting type R11.2 [facility] [address] [facility] [id number] [address] [place] [phone] SP Dec, Chronic pain G89.29 SP [facility] [address] [facility] [id number] [address] [place] [phone] SP November, SP [facility] [address] [facility] [id number] [place] [address] SP November, Diabetes E11.9 ; CAD ([place]in[place] ry artery disease) I25.10 ; Atypical SP pain R07.89 ; Type 2 diabetes mellitus with hyperglycemia E11.65 ; 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.29 ; 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 designer 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.4 and Chronic pain G89.29 [facility] [address] [facility] [id number] [address] [place] [phone] SP Oct, SP [facility] [address] [facility] [id number] [address] [place] [phone] SP Oct, Chronic pain G89.29 SP [facility] [address] [facility] [id number] [address] [place] [phone] SP Sep, Diabetes E11.9 SP [facility] [address] [facility] [id number] [address] [place] [address] SP Sep, Chronic pain G89.29 SP [facility] [address] [facility] [id number] [address] [place] [phone] SP Sep, SP [facility] [address] [facility] [id number] [address] [place] [phone] SP Sep, Falls frequently R29.6 ; Elier g term 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.4 SP Type 2 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 E11.49 [facility] [address] [facility] [id number] [address] [place] [phone] SP Sep, SP [facility] [address] [facility] [id number] [address] [place] [phone] SP Sep, Diabetes E11.9 SP [facility] [address] [facility] [id number] [address] [place] [phone] SP Aug, SP [facility] [address] [facility] [id number] [address] [place] [phone] SP Aug, Chronic pain G89.29 SP [facility] [address] [facility] [id number] [address] [place] [phone] SP Aug, SP [facility] [address] [facility] [id number] [address] [place] [address] SP Aug, Chronic pain G89.29 SP [facility] [address] [facility] [id number] [address] [place] [phone] SP Jul, SP [facility] [address] [facility] [id number] [address] [place] [phone] SP Jul, Diabetes E11.9 and Type 2 di abetes mellitus with other diabetic SP complication E11.29 [facility] [address] [facility] [id number] [address] [place] [phone] SP Jul, Type 2 diabetes mellitus wit h other diabetic kidney complication SP [facility] [address] [facility] [id number] [address] [place] [phone] SP Jul, SP [facility] [address] [facility] [id number] [address] [place] [address] SP Jul, Chronic pain G89.29 SP [facility] [address] [facility] [id number] [address] [place] [phone] SP Jun, Diabetes E11.9 SP [facility] [address] [facility] [id number] [address] [place] [phone] SP Jun, Chronic pain G89.29 SP [facility] [address] [facility] [id number] [address] [place] [address] SP Jun, Diabetes E11.9 ; Atypical ch est pain R07.89 ; retirement current SP of insulin Z79.4 ; 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.29 ; Type 2 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 E11.49 ; History of pulmonary embolism Z86.711 and History of CVA (cerebrovascular accident) Z86.73 [facility] [address] [facility] [id number] [address] [place] [address] SP May, SP [facility] [address] [facility] [id number] [address] [place] [address] SP May, Chronic pain G89.29 SP [facility] [address] [facility] [id number] [address] [place] [phone] SP Apr, Chronic pain G89.29 SP [facility] [address] [facility] [id number] [address] [place] [phone] SP Apr, SP [facility] [address] [facility] [id number] [address] [place] [phone] SP Mar, Chronic pain G89.29 SP [facility] [address] [facility] [id number] [address] [place] [phone] SP Mar, Diabetes E11.9 SP [facility] [address] [facility] [id number] [address] [place] [phone] SP Mar, SP [facility] [address] [facility] [id number] [address] [place] [id number] SP Mar, Degenerative disc disease, l umbar M51.36 SP [facility] [address] [facility] [id number] [address] [place] [phone] SP Feb, Diabetes E11.9 SP [facility] [address] [facility] [id number] [address] [place] [phone] SP Feb, Diabetes E11.9 SP [facility] [address] [facility] [id number] [address] [place] [phone] SP 16 Feb, 2017 Diabetes E11.9 ; HTN (hypert ension) I10 ; Diabetic neuropathy SP and Leg cramps R25.2 [facility] [address] [facility] [id number] [address] [place] [address] SP 15 Feb, 2017 Sprain of calcaneofibular li gament of right ankle, subsequent SP S93.411D ; Major depressive disorder, recurrent episode, moderate F33.1 ; Diabetes E11.9 ; Hyperlipidemia E78.5 ; Post-traumatic stress disorder F43.10 and Other irritable bowel syndrome K58.8 [facility] [address] [facility] [id number] [address] [place] [phone] SP 14 Feb, 2017 Major depressive disorder, r ecurrent episode, moderate F33.1 ; SPtraumatic stress disorder F43.10 and Obsessive-compulsive disorder, unspecified type F42.9 [facility] [address] [facility] [id number] [address] [place] [phone] SP Feb, SP [facility] [address] [facility] [id number] [address] [place] [phone] SP Feb, Post-traumatic stress disord er F43.10 and Major depressive SP recurrent, moderate F33.1 [facility] [address] [facility] [id number] [address] [place] [phone] SP Feb, Diabetes E11.9 SP [facility] [address] [facility] [id number] [address] [place] [phone] SP Feb, Degenerative disc disease, l umbar M51.36 SP [facility] [address] [facility] [id number] [address] [place] [phone] SP Feb, Post-traumatic stress disord er F43.10 and Major depressive SP recurrent, moderate F33.1 [facility] [address] [facility] [id number] [address] [place] [phone] SP Feb, SP [facility] [address] [id number] [address] [place] [phone] SP Feb, Diabetes E11.9 SP [facility] [address] [id number] [address] [place] [phone] SP Jan, Diabetes E11.9 SP [facility] [address] [id number] [address] [place] [phone] SP Jan, Post-traumatic stress disord er F43.10 and Major depressive SP recurrent, moderate F33.1 [facility] [address] [id number] [address] [place] [phone] SP Jan, Diabetes E11.9 SP [facility] [address] [id number] [address] [place] [phone] SP Jan, Diabetes E11.9 SP [facility] [address] [id number] [address] [place] [phone] SP Jan, SP [facility] [address] [id number] [address] [place] [phone] SP Jan, SP [facility] [address] [id number] [address] [place] [phone] SP Jan, Post-traumatic stress disord er F43.10 and Major depressive SP recurrent, moderate F33.1 [facility] [address] [id number] [address] [place] [phone] SP Jan, SP [facility] [address] [id number] [address] [place] [phone] SP Jan, Major depressive disorder, r ecurrent episode, moderate F33.1 ; SPtraumatic stress disorder F43.10 and Obsessive-compulsive disorder, unspecified type F42.9 [facility] [address] [id number] [address] [place] [phone] SP Jan, SP [facility] [address] [id number] [address] [place] [address] SP Jan, Diabetes E11.9 SP [facility] [address] [id number] [address] [place] [phone] SP Jan, SP [facility] [address] [facility] [id number] [address] [place] [phone] SP Jan, Sprain of calcaneofibular li gament of right ankle, subsequent SP S93.411D [facility] [address] [id number] [address] [place] [phone] SP Jan, Post-traumatic stress disord er F43.10 and Major depressive SP recurrent, moderate F33.1 [place] [address] [id number] [address] [place] [phone] SP Jan, Diabetes E11.9 SP [place] [address] [facility] [id number] [address] [place] [phone] SP 16 Dec, 2016 Major depressive disorder, r ecurrent episode, moderate F33.1 ; SPtraumatic stress disorder F43.10 and Obsessive-compulsive disorder, unspecified type F42.9 [place] [address] [id number] [address] [place] [phone] SP 15 Dec, 2016 SP [place] [address] [id number] [address] [place] [phone] SP 14 Dec, 2016 Sprain of calcaneofibular li gament of right ankle, subsequent SP S93.411D [place] [address] [id number] [address] [place] [phone] SP Dec, Post-traumatic stress disord er F43.10 and Major depressive SP recurrent, moderate F33.1 [place] [address] [id number] [address] [place] [phone] SP 13 Dec, 2016 Sprain of calcaneofibular li gament of right ankle, subsequent SP S93.411D [place] [address] [facility] [id number] [address] [place] [phone] SP Dec, Hyperlipidemia E78.5 SP [place] [address] [facility] [id number] [address] [place] [phone] SP Dec, SP [place] [address] [facility] [id number] [address] [place] [address] SP Dec, Diabetes E11.9 ; Diabetic ne uropathy E11.40 ; Degenerative disc SP lumbar M51.36 ; Hyperlipidemia E78.5 ; Insomnia G47.00 ; CAD (coronary artery disease) I25.10 ; Major depressive disorder, recurrent, moderate F33.1 ; Post- traumatic stress disorder F43.10 and Other irritable bowel syndrome K58.8 [place] [address] [facility] [id number] [address] [place] [phone] SP November, Diabetic neuropathy E11.40 a nd Hyperlipidemia E78.5 SP [place] [address] [facility] [id number] [address] [place] [phone] SP November, Degenerative disc disease, l umbar M51.36 SP [place] [address] [facility] [id number] [address] [place] [address] SP Oct, [place] [address] [facility] [id number] [address] [place] [phone] SP Oct, Degenerative disc disease, l umbar M51.36 SP [place] [address] [facility] [id number] [address] [place] [phone] SP Sep, Degenerative disc disease, l umbar M51.36 and HTN (hypertension) SP [place] [address] [facility] [id number] [address] [place] [address] SP Sep, Diabetic neuropathy E11.40 ; HTN (hypertension) I10 ; SP disc disease, lumbar M51.36 ; Hyperlipidemia E78.5 ; Insomnia G47.00 ; CAD (coronary artery disease) I25.10 and Diabetes E11.9 [place] [address] [facility] [id number] [address] [place] [address] SP Aug, [place] [address] [facility] [id number] [address] [place] [phone] SP Aug, Type 2 diabetes mellitus wit h hyperglycemia E11.65 SP [facility] [address] [facility] [id number] [address] [place] [phone] SP Aug, SP [facility] [address] [facility] [id number] [address] [place] [phone] SP Jul, SP [facility] [address] [facility] [id number] [address] [place] [phone] SP Jul, SP [facility] [address] [facility] [id number] [address] [place] [phone] SP Jun, SP [facility] [address] [facility] [id number] [address] [place] [address] SP Jun, SP [facility] [address] [facility] [id number] [address] [place] [phone] SP Jun, SP [facility] [address] [facility] [id number] [address] [place] [address] SP Jun, SP [facility] [address] [facility] [id number] [address] [place] [phone] SP May, Major depressive disorder, r ecurrent episode, moderate F33.1 and SPtraumatic stress disorder F43.10 [place] [address] [facility] [id number] [address] [place] [phone] SP May, Major depressive disorder, r ecurrent episode, moderate F33.1 and SPtraumatic stress disorder F43.10 [facility] [address] [facility] [id number] [address] [place] [phone] SP May, Diabetes E11.9 ; Diabetic ne uropathy E11.40 ; HTN (hypertension) SP ; Gastritis K29.70 ; Hyperlipidemia E78.5 ; Insomnia G47.00 and Major depressive disorder, recurrent, moderate F33.1 [facility] [address] [facility] [id number] [address] [place] [address] SP May, Major depressive disorder, r ecurrent episode, moderate F33.1 SP [place] [address] [facility] [id number] [address] [place] [address] SP Apr, SP [facility] [address] [facility] [id number] [address] [place] [phone] SP Apr, Major depressive disorder, r ecurrent episode, moderate F33.1 and SPtraumatic stress disorder F43.10 [place] [address] [facility] [id number] [address] [place] [address] SP Apr, Diabetes E11.9 ; Diabetic ne uropathy E11.40 ; Degenerative disc SP lumbar M51.36 ; HTN (hypertension) I10 ; Hyperlipidemia E78.5 ; Chronic pain G89.29 ; CAD (coronary artery disease) I25.10 and Major depressive disorder, recurrent, moderate F33.1 [place] [address] [address] SP Apr, Major depressive disorder, r ecurrent episode, moderate F33.1 and SPtraumatic stress disorder F43.10 [place] [address] [address] SP Apr, Major depressive disorder, r ecurrent episode, moderate F33.1 and SPtraumatic stress disorder F43.10 [place] [id number] [place] [address] SP Apr, Major depressive disorder, r ecurrent episode, moderate F33.1 and SP episodic mood disorder F39 [place] [address] [facility] [id number] [address] [place] [address] SP Apr, Chronic pain G89.29 ; Diabet ic neuropathy E11.40 ; HTN SP I10 ; Insomnia G47.00 ; CAD (coronary artery disease) I25.10 ; Hyperlipidemia E78.5 ; Degenerative disc disease, lumbar M51.36 ; Diabetes E11.9 and Gastritis K29.70 [place] [address] [place] [id number] [address] [place] [phone] SP Sep, SP [facility] [address] [facility] [id number] [address] [place] [address] SP Aug, SP [facility] [address] [facility] [id number] [address] [place] [phone] SP Jul, Major depressive disorder, r ecurrent episode, moderate F33.1 SP [facility] [address] [place] [id number] [place] [address] SP Jul, Unspecified episodic mood di sorder F39 SP [facility] [address] [facility] [id number] [address] [place] [phone] SP Jul, SP [facility] [address] [facility] [id number] [place] [phone] SP Jul, SP [place] [address] [place] [id number] [place] [address] SP Jul, SP [facility] [address] [place] [id number] [address] [place] [address] SP Jul, Type 2 diabetes mellitus wit h hyperglycemia E11.65 ; Diabetic SP E11.40 ; Degenerative disc disease, lumbar M51.36 ; HTN (hypertension) I10 ; Gastritis K29.70 ; Hyperlipidemia E78.5 and CAD (coronary artery disease) I25.10 [place] [address] [place] [id number] [address] [place] [phone] SP Jul, Severe episode of recurrent major depressive disorder, without SP features F33.2 [facility] [address] [facility] [id number] [address] [place] [phone] SP Jul, SP [facility] [address] [facility] [id number] [address] [place] [address] SP Jun, SP [facility] [address] [facility] [id number] [address] [place] [address] SP Jun, Diabetes E11.9 ; Diabetic ne uropathy E11.40 ; Degenerative disc SP lumbar M51.36 ; HTN (hypertension) I10 ; Gastritis K29.70 ; Hyperlipidemia E78.5 ; Unspecified episodic mood disorder F39 ; Depression F32.9 and CAD (coronary artery disease) I25.10 [facility] [address] [facility] [id number] [address] [place] [phone] SP Jun, SP [facility] [address] [place] [id number] [address] [place] [phone] SP Jun, SP [facility] [address] [place] [id number] [place] [phone] SP Jun, Diabetes E11.9 ; Diabetic ne uropathy E11.40 ; Degenerative disc SP lumbar M51.36 ; HTN (hypertension) I10 ; Gastritis K29.70 ; Chronic pain G89.29 ; Insomnia G47.00 and Unspecified episodic mood disorder F39 [place] [address] [place] [id number] [place] [address] SP May, Diabetic neuropathy E11.40 ; Degenerative disc disease, lumbar SP ; HTN (hypertension) I10 ; Gastritis K29.70 ; Hyperlipidemia E78.5 ; Chronic pain G89.29 ; Insomnia G47.00 ; Unspecified episodic mood disorder F39 ; Diabetes E11.9 ; CAD (coronary artery disease) I25.10 and H/O Gram positive sepsis Z86.19 [facility] [address] [facility] [id number] [address] [place] [id number] SP May, SP [facility] [address] [facility] [id number] [address] [place] [phone] SP May, SP [facility] [address] [facility] [id number] [address] [place] [phone] SP May, SP [facility] [address] [facility] [id number] [address] [place] [phone] SP May, SP [facility] [address] [facility] [id number] [address] [place] [phone] SP May, UTI (urinary tract infection ) N39.0 ; Diabetes E11.9 ; Diabetic SP E11.40 ; Hyperlipidemia E78.5 and Chronic pain G89.29 [facility] [address] [facility] [id number] [address] [place] [phone] SP May, Insomnia, unspecified G47.00 and Chronic pain G89.29 SP [facility] [address] [facility] [id number] [address] [place] [address] SP May, SP [facility] [address] [facility] [id number] [address] [place] [address] SP May, SP [facility] [address] [facility] [id number] [address] [place] [phone] SP May, SP [facility] [address] [facility] [id number] [place] [address] SP Apr, Insomnia, unspecified G47.00 ; Chronic pain G89.29 and SP episodic mood disorder F39 [facility] [address] [place] [id number] [address] [place] [phone] SP Apr, Unspecified episodic mood di sorder F39 SP [facility] [address] [facility] [id number] [address] [place] [address] SP Apr, Major depression F32.9 SP [facility] [address] [facility] [id number] [address] [place] [address] SP Apr, SP [facility] [address] [place] [id number] [address] [place] [address] SP Apr, Diabetes E11.9 ; Diabetic ne uropathy E11.40 ; Degenerative disc SP lumbar M51.36 ; HTN (hypertension) I10 ; Gastritis K29.70 ; Hyperlipidemia E78.5 ; Chronic pain G89.29 and Insomnia G47.00 [facility] [address] [facility] [id number] [address] [place] [address] SP Mar, SP [facility] [address] [facility] [id number] [address] [place] [address] SP Mar, SP [facility] [address] [phone] SP Mar, [facility] [address] [address] SP Mar, Diabetes mellitus 250.00 ; D iabetic neuropathy 250.60 ; CAD SP artery disease) 414.00 ; Degenerative disc disease, lumbar 722.52 ; Gastritis 535.50 and Insomnia 780.52 [place] [address] [address] SP Mar, Diabetes mellitus 250.00 ; D egenerative disc disease, lumbar SP ; Essential hypertension 401.9 ; Gastritis 535.50 and Chronic pain 338.29 [place] [address] [address] SP Feb, [place] [address] [address] SP Feb, [place] [address] [address] SP Jan, [place] [address] [address] SP Jan, Diabetes mellitus 250.00 ; D iabetic neuropathy 250.60 ; SP disc disease, lumbar 722.52 ; CAD (coronary artery disease) 414.00 ; Essential hypertension 401.9 ; Gastritis 535.50 ; Hyperlipidemia 272.4 and Distal end of ulna fracture, closed 813.43 [place] [address] [address] SP Dec, Wrist pain 719.43 and Diabet es mellitus 250.00 SP [place] [address] [address] SP May, [place] [address] [address] SP Dec, [place] [address] [address] SP 13 Nov, 2009 SP [facility] [address] [id number] [address] [place] [address], [place] [address] SP 16 Oct, 2009 SP [facility] [address] [id number] [address] [place] [address], [place] [address] SP 17 Sep, 2009 SP [facility] [address] [id number] [address] [place] [address], [place] [address] SP 11 Sep, 2009 SP [facility] [address] [id number] [address] [place] [address], [place] [address] SP Jun, SP [facility] [address] [id number] [address] [place] [address], [place] [address] SP Jun, SP [facility] [address] [id number] [address] [place] [address], [place] [address] SP 14 Jun, 2009 SP [facility] [address] [id number] [address] [place] [address], [place] [address] SP Jun, SP [facility] [address] [id number] [address] [place] [address], [place] [address] SP Jun, SP [facility] [address] [id number] [address] [place] [address], [place] [address] SP Jun, SP [facility] [address] [id number] [address] [place] [address], [place] [address] SP Jun, SP [facility] [address] [id number] [address] [place] [phone] SP May, SP [facility] [address] [id number] [address] [place] [address], [place] [address] SP May, SP [facility] [address] [id number] [address] [place] [address], [place] [address] SP May, SP [facility] [address] [id number] [address] [place] [address], [place] [address] SP May, SP [facility] [address] [id number] [address] [address] SP Apr, SP [facility] [address] [facility] [id number] [address] [place] [phone] SP Apr, SP [facility] [address] [id number] [address] [place] [phone] SP Apr, SP [facility] [address] [facility] [id number] [address] [place] [address] SP Mar, SP [facility] [address] [facility] [id number] [address] [place] [phone] SP Dec, SP IMMUNIZATIONS No Known Immunizations SOCIAL HISTORY Never Assessed REASON FOR VISIT Diabetes-awoods PLAN OF CARE Activity Details POS SP Follow Up 2 - 3 Days if not admitted rishabh Perez Reason: SP VITAL SIGNS Height 61 in 2018-01-18 POS Temperature 98.1 degrees Fahrenheit 2018-01-18 POS Heart Rate 108 bpm 2018-01-18 POS Respiratory Rate 20 2018-01-18 POS Oximetry on room air:92 % 2018-01-18 POS Blood pressure systolic 86 mmHg 2018-01-18 POS Blood pressure diastolic 52 mmHg 2018-01-18 POS MEDICATIONS Medication Instructions Dosage Frequency Start Date End Date Duration S tatus POS Actos 15 mg Orally Once a day 1 tablet 24h Sep, 30 d ay(s) Active SP Plavix 75 MG TAKE 1 TABLET EVERY DAY 28 Active SP Prazosin HCl 2 MG Orally at bedtime 1 capsule Feb, 30 day(s) Active SP Gabapentin 300 MG TAKE 1 CAPSULE THREE TIMES DAILY 90 Active SP Accu-Chek Softclix Lancets - subcutaneously 4 times a day us e to check blood SP 6h Feb, Active SP Hydrocodone-Acetaminophen 10-325 MG Orally 3 times a day 1 tablet a s needed 8h SP Dec, 2017 28 days Active SP Promethazine HCl 25 MG Orally every 6 hours prn 1 tablet as needed Dec, Active SP Levemir FlexTouch 100 UNIT/ML Subcutaneous 55 units bid inject Active SP Lisinopril-Hydrochlorothiazide 20-25 MG Orally Once a day 1 tablet 24h Dec, SP Active SP Accu-Chek Deepika Plus w/Device subcutaneously 4 times a day check reyes gars 6h 2016 Active SP Aspir-81 81 MG Orally Once a day 1 tablet 24h Active SP Lamictal 100 mg Orally Once a day 1 tablet 24h Feb, 30 day(s) Active SP HydrOXYzine HCl 50 mg Orally at bedtime as needed for sleep 1 table 14 Feb, 30 days Active SP NovoLog Flexpen 100 UNIT/ML Subcutaneous 3 times a day with meals inject 40 SP Active SP Accu-Chek Deepika Plus - subcutaneously 4 times a day to check glucos e 6h Feb, Active SP Zofran 8 MG Orally q6 hr PRN 1 tablet Dec, 30 da y(s) Active SP Metformin HCl 500 mg DX- E11.65 at supper 2 tablets Aug, 30 day(s) SP Crestor 40 mg Orally Once a day 1 tablet 24h Active SP Janumet 50-500 MG Orally Twice a day 1 tablet with meals 12h Aug, 30 SP Active SP Pen Paige 31G X 6 MM as directed 6h Dec, Active SP Metoclopramide HCl 10 mg Orally every 6 hours 1 tab 6h 90 days Active SP RESULTS Name Result Date Reference Range POS GLUCOSE FINGERSTICK (IN HOUSE) 2018-01-18 SP GLU FINGERSTICK [facility] SP Lot # [id number] SP Exp date 06/03/2018 SP PROCEDURES Procedure Date Ordered Result Body Site POS GLUCOSE BLOOD TEST January 18, 2018 SP INSTRUCTIONS MEDICATIONS ADMINISTERED No Known [...]
--- OUTSIDE RECORDS SUMMARY | 2019-06-14 01:38 | XMS REPORT ---
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 Name Role Phone POS RISSAKARTIKFLAQUITOY Unavailable SP PROBLEMS Type Condition ICD9-CM Code VVD78-NS Code Onset Dates Condition S tatus SNOMED POS Problem Type 2 diabetes mellitus with hyperglycemia E11.65 Active POS Problem Major depressive disorder, recurrent episode, moderate F33.1 Active SP Problem Obsessive-compulsive disorder, unspecified type F4 2.9 Active SP Problem Ataxia R27.0 Active [id number] SP Problem Falls frequently R29.6 Active [id number] SP Problem Type 2 diabetes mellitus with other diab etic neurological complication SP E11.49 Active 61316611 SP Problem superintendent terminal 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.4 Active 931148014 SP Problem History of pulmonary embolism Z86.711 Active 443945084 SP Problem Type 2 diabetes mellitus with other diabetic kid allen complication SP Active 10783674 SP Problem Insomnia G47.00 Active 340000948 SP Problem Degenerative disc disease, lumbar M51.36 Active 22025968 SP Problem HTN (hypertension) I10 Active 3 2663646 SP Problem Hyperlipidemia E78.5 Active 21462 004 SP Problem CAD (coronary artery disease) I25.10 Active 57670519 SP Problem Chronic pain G89.29 Active 1785807 1 SP Problem Post-traumatic stress disorder F43.10 Active 82633332 SP ALLERGIES No Information ENCOUNTERS Encounter Location Date Diagnosis POS [facility] [address] [facility] [id number] [address] [place] [phone] SP Mar, SP [facility] [address] [facility] [id number] [address] [place] [phone] SP Feb, Type 2 diabetes mellitus wit h other diabetic neurological SP E11.49 ; 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.29 ; Degenerative disc disease, lumbar M51.36 and Chronic pain G89.29 [facility] [address] [id number] [address] [place] [phone] SP Jan, SP [facility] [address] [id number] [address] [place] [address] SP Jan, SP [facility] [address] [facility] [id number] [address] [place] [phone] SP Jan, SP [facility] [address] [facility] [id number] [address] [place] [phone] SP Jan, SP [facility] [address] [facility] [id number] [address] [place] [phone] SP Jan, SP [facility] [address] [facility] [id number] [address] [place] [phone] SP Jan, SP [facility] [address] [facility] [id number] [address] [place] [phone] SP Jan, Slurred speech R47.81 ; Atax ia R27.0 and Left arm weakness SP [facility] [address] [facility] [id number] [address] [place] [phone] SP Jan, SP [facility] [address] [facility] [id number] [address] [place] [phone] SP Jan, Type 2 diabetes mellitus wit h hyperglycemia E11.65 and SP vomiting with nausea, unspecified vomiting type R11.2 [facility] [address] [facility] [id number] [address] [place] [phone] SP Dec, CAD (coronary artery disease ) I25.10 and Atypical chest pain SP [facility] [address] [facility] [id number] [address] [place] [phone] SP Dec, SP [facility] [address] [facility] [id number] [address] [place] [phone] SP Dec, Diabetes E11.9 ; Type 2 diab etes mellitus with hyperglycemia SP and Intractable vomiting with nausea, unspecified vomiting type R11.2 [facility] [address] [facility] [id number] [address] [place] [phone] SP Dec, Chronic pain G89.29 SP [facility] [address] [facility] [id number] [address] [place] [phone] SP November, SP [facility] [address] [facility] [id number] [address] [place] [id number] SP November, Diabetes E11.9 ; CAD ([place] ry artery disease) I25.10 ; Atypical SP pain R07.89 ; Type 2 diabetes mellitus with hyperglycemia E11.65 ; 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.29 ; superintendent terminal 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.4 and Chronic pain G89.29 [facility] [address] [facility] [id number] [address] [place] [phone] SP Oct, SP [facility] [address] [facility] [id number] [address] [place] [phone] SP Oct, Chronic pain G89.29 SP [facility] [address] [facility] [id number] [address] [place] [phone] SP Sep, Diabetes E11.9 SP [facility] [address] [facility] [id number] [address] [place] [phone] SP Sep, Chronic pain G89.29 [facility] [address] [facility] [id number] [address] [place] [phone] SP Sep, SP [facility] [address] [facility] [id number] [address] [place] [phone] SP Sep, Falls frequently R29.6 ; Elier g term 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.4 SP Type 2 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 E11.49 [facility] [address] [facility] [id number] [address] [place] [phone] SP Sep, SP [facility] [address] [facility] [id number] [address] [place] [phone] SP Sep, Diabetes E11.9 SP [facility] [address] [facility] [id number] [address] [place] [phone] SP Aug, SP [facility] [address] [facility] [id number] [address] [place] [phone] SP Aug, Chronic pain G89.29 SP [facility] [address] [facility] [id number] [address] [place] [phone] SP Aug, SP [facility] [address] [facility] [id number] [address] [place] [id number] SP Aug, Chronic pain G89.29 SP [facility] [address] [facility] [id number] [address] [place] [phone] SP Jul, SP [facility] [address] [facility] [id number] [address] [place] [phone] SP Jul, Diabetes E11.9 and Type 2 di abetes mellitus with other diabetic SP complication E11.29 [facility] [address] [facility] [id number] [address] [place] [phone] SP Jul, Type 2 diabetes mellitus wit h other diabetic kidney complication SP [facility] [address] [facility] [id number] [address] [place] [phone] SP Jul, SP [facility] [address] [facility] [id number] [address] [place] [phone] SP Jul, Chronic pain G89.29 SP [facility] [address] [facility] [id number] [address] [place] [phone] SP Jun, Diabetes E11.9 SP [facility] [address] [facility] [id number] [address] [place] [id number] SP Jun, Chronic pain G89.29 SP [facility] [address] [facility] [id number] [address] [place] [phone] SP Jun, Diabetes E11.9 ; Atypical ch est pain R07.89 ; MCC current SP of insulin Z79.4 ; 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.29 ; Type 2 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 E11.49 ; History of pulmonary embolism Z86.711 and History of CVA (cerebrovascular accident) Z86.73 [facility] [address] [facility] [id number] [address] [place] [phone] SP May, SP [facility] [address] [facility] [id number] [address] [place] [phone] SP May, Chronic pain G89.29 SP [facility] [address] [facility] [id number] [address] [place] [phone] SP Apr, Chronic pain G89.29 SP [facility] [address] [facility] [id number] [address] [place] [phone] SP Apr, SP [place] [address] [facility] [id number] [address] [place] [phone] SP Mar, Chronic pain G89.29 SP [facility] [address] [facility] [id number] [address] [place] [phone] SP Mar, Diabetes E11.9 SP [place] [address] [facility] [id number] [address] [place] [phone] SP Mar, SP [facility] [address] [facility] [id number] [address] [place] [phone] SP Mar, Degenerative disc disease, l umbar M51.36 SP [place] [address] [facility] [id number] [address] [place] [phone] SP Feb, Diabetes E11.9 SP [facility] [address] [facility] [id number] [address] [place] [phone] SP Feb, Diabetes E11.9 SP [place] [address] [facility] [id number] [address] [place] [phone] SP Feb, Diabetes E11.9 ; HTN (hypert ension) I10 ; Diabetic neuropathy SP and Leg cramps R25.2 [place] [address] [facility] [id number] [address] [place] [phone] SP 15 Feb, 2017 Sprain of calcaneofibular li gament of right ankle, subsequent SP S93.411D ; Major depressive disorder, recurrent episode, moderate F33.1 ; Diabetes E11.9 ; Hyperlipidemia E78.5 ; Post-traumatic stress disorder F43.10 and Other irritable bowel syndrome K58.8 [facility] [address] [id number] [address] [place] [phone] SP Feb, Major depressive disorder, r ecurrent episode, moderate F33.1 ; SPtraumatic stress disorder F43.10 and Obsessive-compulsive disorder, unspecified type F42.9 [facility] [address] [facility] [id number] [address] [place] [phone] SP Feb, SP [facility] [address] [facility] [id number] [address] [place] [phone] SP Feb, Post-traumatic stress disord er F43.10 and Major depressive SP recurrent, moderate F33.1 [facility] [address] [id number] [address] [place] [phone] SP Feb, Diabetes E11.9 SP [facility] [address] [facility] [id number] [address] [place] [phone] SP Feb, Degenerative disc disease, l umbar M51.36 SP [facility] [address] [facility] [id number] [address] [place] [phone] SP Feb, Post-traumatic stress disord er F43.10 and Major depressive SP recurrent, moderate F33.1 [facility] [address] [id number] [address] [place] [phone] SP Feb, SP [facility] [address] [facility] [id number] [address] [place] [phone] SP Feb, Diabetes E11.9 SP [facility] [address] [facility] [id number] [address] [place] [phone] SP Jan, Diabetes E11.9 SP [facility] [address] [id number] [address] [place] [phone] SP Jan, Post-traumatic stress disord er F43.10 and Major depressive SP recurrent, moderate F33.1 [facility] [address] [id number] [address] [place] [phone] SP Jan, Diabetes E11.9 SP [facility] [address] [id number] [address] [place] [phone] SP Jan, Diabetes E11.9 SP [facility] [address] [id number] [address] [place] [phone] SP Jan, SP [facility] [address] [id number] [address] [place] [phone] SP Jan, SP [facility] [address] [id number] [address] [place] [phone] SP Jan, Post-traumatic stress disord er F43.10 and Major depressive SP recurrent, moderate F33.1 [facility] [address] [id number] [address] [place] [phone] SP Jan, SP [facility] [address] [id number] [address] [place] [phone] SP Jan, Major depressive disorder, r ecurrent episode, moderate F33.1 ; SPtraumatic stress disorder F43.10 and Obsessive-compulsive disorder, unspecified type F42.9 [facility] [address] [id number] [address] [place] [phone] SP Jan, SP [facility] [address] [id number] [address] [place] [phone] SP Jan, Diabetes E11.9 SP [facility] [address] [id number] [address] [place] [phone] SP Jan, SP [facility] [address] [facility] [id number] [address] [place] [phone] SP Jan, Sprain of calcaneofibular li gament of right ankle, subsequent SP S93.411D [facility] [address] [id number] [address] [place] [phone] SP 13 Jan, 2017 Post-traumatic stress disord er F43.10 and Major depressive SP recurrent, moderate F33.1 [facility] [address] [id number] [address] [place] [phone] SP Jan, Diabetes E11.9 SP [facility] [address] [id number] [address] [place] [phone] SP 16 Dec, 2016 Major depressive disorder, r ecurrent episode, moderate F33.1 ; SPtraumatic stress disorder F43.10 and Obsessive-compulsive disorder, unspecified type F42.9 [facility] [address] [id number] [address] [place] [id number] SP 15 Dec, 2016 SP [facility] [address] [id number] [address] [place] [phone] SP 14 Dec, 2016 Sprain of calcaneofibular li gament of right ankle, subsequent SP S93.411D [facility] [address] [id number] [address] [place] [phone] SP Dec, Post-traumatic stress disord er F43.10 and Major depressive SP recurrent, moderate F33.1 [facility] [address] [id number] [address] [place] [phone] SP Dec, Sprain of calcaneofibular li gament of right ankle, subsequent SP S93.411D [facility] [address] [id number] [address] [place] [phone] SP 12 Dec, 2016 Hyperlipidemia E78.5 SP [facility] [address] [id number] [address] [place] [phone] SP Dec, SP [facility] [address] [id number] [address] [place] [address] SP Dec, Diabetes E11.9 ; Diabetic ne uropathy E11.40 ; Degenerative disc SP lumbar M51.36 ; Hyperlipidemia E78.5 ; Insomnia G47.00 ; CAD (coronary artery disease) I25.10 ; Major depressive disorder, recurrent, moderate F33.1 ; Post- traumatic stress disorder F43.10 and Other irritable bowel syndrome K58.8 [place] [address] [address] SP November, Diabetic neuropathy E11.40 a nd Hyperlipidemia E78.5 SP [place] [address] [address] SP November, Degenerative disc disease, l umbar M51.36 SP [place] [address] [phone] SP Oct, [place] [address] [address] SP Oct, Degenerative disc disease, l umbar M51.36 [place] [address] [address] SP Sep, Degenerative disc disease, l umbar M51.36 and HTN (hypertension) SP [place] [address] [address] SP Sep, Diabetic neuropathy E11.40 ; HTN (hypertension) I10 ; SP disc disease, lumbar M51.36 ; Hyperlipidemia E78.5 ; Insomnia G47.00 ; CAD (coronary artery disease) I25.10 and Diabetes E11.9 [place] [address] [address] SP Aug, [place] [address] [address] SP Aug, Type 2 diabetes mellitus wit h hyperglycemia E11.65 SP [place] [address] [address] SP Aug, [place] [address] [phone] SP Jul, SP [facility] [address] [facility] [id number] [address] [place] [phone] SP Jul, SP [facility] [address] [facility] [id number] [address] [place] [phone] SP Jun, SP [facility] [address] [facility] [id number] [address] [place] [phone] SP Jun, SP [facility] [address] [facility] [id number] [address] [place] [phone] SP Jun, SP [facility] [address] [facility] [id number] [address] [place] [phone] SP Jun, SP [facility] [address] [facility] [id number] [address] [place] [phone] SP May, Major depressive disorder, r ecurrent episode, moderate F33.1 and SPtraumatic stress disorder F43.10 [facility] [address] [facility] [id number] [address] [place] [phone] SP May, Major depressive disorder, r ecurrent episode, moderate F33.1 and SPtraumatic stress disorder F43.10 [facility] [address] [facility] [id number] [address] [place] [phone] SP May, Diabetes E11.9 ; Diabetic ne uropathy E11.40 ; HTN (hypertension) SP ; Gastritis K29.70 ; Hyperlipidemia E78.5 ; Insomnia G47.00 and Major depressive disorder, recurrent, moderate F33.1 [facility] [address] [facility] [id number] [address] [place] [phone] SP May, Major depressive disorder, r ecurrent episode, moderate F33.1 SP [facility] [address] [facility] [id number] [address] [place] [phone] SP Apr, SP [facility] [address] [facility] [id number] [address] [place] [phone] SP Apr, Major depressive disorder, r ecurrent episode, moderate F33.1 and SPtraumatic stress disorder F43.10 [place] [address] [place] [id number] [address] [place] [phone] SP Apr, Diabetes E11.9 ; Diabetic ne uropathy E11.40 ; Degenerative disc SP lumbar M51.36 ; HTN (hypertension) I10 ; Hyperlipidemia E78.5 ; Chronic pain G89.29 ; CAD (coronary artery disease) I25.10 and Major depressive disorder, recurrent, moderate F33.1 [place] [address] [place] [id number] [place] [phone] SP Apr, Major depressive disorder, r ecurrent episode, moderate F33.1 and SPtraumatic stress disorder F43.10 [place] [address] [place] [id number] [place] [address] SP Apr, Major depressive disorder, r ecurrent episode, moderate F33.1 and SPtraumatic stress disorder F43.10 [place] [address] [address] SP Apr, Major depressive disorder, r ecurrent episode, moderate F33.1 and SP episodic mood disorder F39 [place] [address] [place] [id number] [place] [phone] SP Apr, Chronic pain G89.29 ; Diabet ic neuropathy E11.40 ; HTN SP I10 ; Insomnia G47.00 ; CAD (coronary artery disease) I25.10 ; Hyperlipidemia E78.5 ; Degenerative disc disease, lumbar M51.36 ; Diabetes E11.9 and Gastritis K29.70 [place] [address] [facility] [id number] [address] [place] [phone] SP Sep, SP [place] [address] [place] [id number] [place] [phone] SP Aug, SP [place] [address] [place] [id number] [place] [phone] SP Jul, Major depressive disorder, r ecurrent episode, moderate F33.1 SP [place] [address] [facility] [id number] [address] [place] [phone] SP Jul, Unspecified episodic mood di sorder F39 SP [facility] [address] [facility] [id number] [address] [place] [phone] SP Jul, SP [facility] [address] [facility] [id number] [place] [phone] SP Jul, SP [facility] [address] [place] [id number] [place] [phone] SP Jul, SP [facility] [address] [place] [id number] [place] [phone] SP Jul, Type 2 diabetes mellitus wit h hyperglycemia E11.65 ; Diabetic SP E11.40 ; Degenerative disc disease, lumbar M51.36 ; HTN (hypertension) I10 ; Gastritis K29.70 ; Hyperlipidemia E78.5 and CAD (coronary artery disease) I25.10 [place] [address] [phone] SP Jul, Severe episode of recurrent major depressive disorder, without SP features F33.2 [place] [address] [address] SP Jul, SP [facility] [address] [place] [id number] [place] [phone] SP Jun, SP [facility] [address] [address] SP Jun, Diabetes E11.9 ; Diabetic ne uropathy E11.40 ; Degenerative disc SP lumbar M51.36 ; HTN (hypertension) I10 ; Gastritis K29.70 ; Hyperlipidemia E78.5 ; Unspecified episodic mood disorder F39 ; Depression F32.9 and CAD (coronary artery disease) I25.10 [facility] [address] [facility] [id number] [address] [place] [id number] SP Jun, SP [facility] [id number] [place] [phone] SP Jun, SP [facility] [id number] [place] [id number] SP Jun, Diabetes E11.9 ; Diabetic ne uropathy E11.40 ; Degenerative disc SP lumbar M51.36 ; HTN (hypertension) I10 ; Gastritis K29.70 ; Chronic pain G89.29 ; Insomnia G47.00 and Unspecified episodic mood disorder F39 [facility] [id number] [place] [id number] SP May, Diabetic neuropathy E11.40 ; Degenerative disc disease, lumbar SP ; HTN (hypertension) I10 ; Gastritis K29.70 ; Hyperlipidemia E78.5 ; Chronic pain G89.29 ; Insomnia G47.00 ; Unspecified episodic mood disorder F39 ; Diabetes E11.9 ; CAD (coronary artery disease) I25.10 and H/O Gram positive sepsis Z86.19 [place] [id number] [place] [id number] SP May, SP [facility] [id number] [place] [phone] SP May, SP [place] [address] [id number] SP May, SP [facility] [id number] [place] [phone] SP May, SP [facility] [id number] [place] [phone] SP May, UTI (urinary tract infection ) N39.0 ; Diabetes E11.9 ; Diabetic SP E11.40 ; Hyperlipidemia E78.5 and Chronic pain G89.29 [place] [id number] [place] [phone] SP May, Insomnia, unspecified G47.00 and Chronic pain G89.29 [address] [place] [id number] [id number] [place] [phone] SP May, SP [place] [id number] [facility] [id number] [address] [place] [phone] SP May, SP [facility] [address] [id number] [place] [id number] SP May, SP [facility] [id number] [place] [id number] SP Apr, Insomnia, unspecified G47.00 ; Chronic pain G89.29 and SP episodic mood disorder F39 [facility] [id number] [place] [id number] SP Apr, Unspecified episodic mood di sorder F39 SP [facility] [address] [facility] [id number] [place] [id number] SP Apr, Major depression F32.9 SP [place] [address] [id number] SP Apr, SP [facility] [address] [address] SP Apr, Diabetes E11.9 ; Diabetic ne uropathy E11.40 ; Degenerative disc SP lumbar M51.36 ; HTN (hypertension) I10 ; Gastritis K29.70 ; Hyperlipidemia E78.5 ; Chronic pain G89.29 and Insomnia G47.00 [facility] [id number] [place] [id number] SP Mar, SP [facility] [id number] [place] [phone] SP Mar, SP [facility] [id number] [place] [id number] SP Mar, SP [facility] [id number] [place] [phone] SP Mar, Diabetes mellitus 250.00 ; D iabetic neuropathy 250.60 ; CAD SP artery disease) 414.00 ; Degenerative disc disease, lumbar 722.52 ; Gastritis 535.50 and Insomnia 780.52 [facility] [address] [facility] [id number] [address] [place] [phone] SP Mar, Diabetes mellitus 250.00 ; D egenerative disc disease, lumbar SP ; Essential hypertension 401.9 ; Gastritis 535.50 and Chronic pain 338.29 [facility] [id number] [place] [id number] SP Feb, SP [facility] [id number] [place] [id number] SP Feb, SP [facility] [id number] [place] [phone] SP Jan, SP [facility] [id number] [place] [address] SP Jan, Diabetes mellitus 250.00 ; D iabetic neuropathy 250.60 ; SP disc disease, lumbar 722.52 ; CAD (coronary artery disease) 414.00 ; Essential hypertension 401.9 ; Gastritis 535.50 ; Hyperlipidemia 272.4 and Distal end of ulna fracture, closed 813.43 [facility] [address] [id number] SP Dec, Wrist pain 719.43 and Diabet es mellitus 250.00 SP [facility] [id number] [place] [phone] SP May, SP [facility] [id number] [place] [phone] SP Dec, SP [facility] [id number] [place] [phone] SP November, SP [facility] [id number] [place] [phone] SP Oct, SP [facility] [id number] [place] [phone] SP Sep, SP [facility] [address] [id number] SP 11 Sep, 2009 SP [facility] [address] [id number] [address] [place] [address], [place] [phone] SP Jun, SP [facility] [address] [id number] [address] [place] [phone] SP Jun, SP [facility] [address] [id number] [address] [place] [phone] SP 14 Jun, 2009 SP [facility] [address] [id number] [address] [place] [phone] SP Jun, SP [facility] [address] [id number] [address] [place] [address], [place] [phone] SP Jun, SP [facility] [address] [facility] [id number] [address] [place] [phone] SP Jun, SP [facility] [address] [id number] [address] [place] [id number] SP Jun, SP [facility] [address] [id number] [address] [place] [address], [place] [id number] SP May, SP [facility] [address] [id number] [address] [place] [phone] SP May, SP [facility] [address] [id number] [address] [place] [phone] SP May, SP [facility] [address] [id number] [address] [place] [phone] SP May, SP [facility] [address] [id number] [address] [place] [address], [place] [phone] SP Apr, SP [facility] [address] [id number] [address] [place] [phone] SP Apr, SP [facility] [address] [id number] [address] [place] [phone] SP 12 Apr, 2009 SP [facility] [address] [facility] [id number] [address] [place] [address] SP Mar, SP [facility] [address] [facility] [id number] [address] [address] SP Dec, SP IMMUNIZATIONS No Known Immunizations SOCIAL HISTORY Never Assessed REASON FOR VISIT Cardiology Referral/Labs PLAN OF CARE VITAL SIGNS MEDICATIONS Unknown [...]
--- OUTSIDE RECORDS SUMMARY | 2019-06-14 01:38 | XMS REPORT ---
Author Author JALEN PEREZ POS Organization [facility] SP Address [address] [place] [address] SP Care Team Providers Care Casting Sorter Name Role Phone POS RISSAKARTIKFLAQUITOY Unavailable SP PROBLEMS Type Condition ICD9-CM Code CCU89-ID Code Onset Dates Condition S tatus SNOMED POS Problem Type 2 diabetes mellitus with hyperglycemia E11.65 Active POS Problem Major depressive disorder, recurrent episode, moderate F33.1 Active SP Problem Obsessive-compulsive disorder, unspecified type F4 2.9 Active SP Problem Ataxia R27.0 Active [id number] SP Problem Falls frequently R29.6 Active 279 [id number] SP Problem Type 2 diabetes mellitus with other diab etic neurological complication SP E11.49 Active [id number] SP 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 670186333 SP Problem History of pulmonary embolism Z86.711 Active 805987810 SP Problem Type 2 diabetes mellitus with other diabetic kid allen complication SP Active 57018090 SP Problem Insomnia G47.00 Active 758533070 SP Problem Degenerative disc disease, lumbar M51.36 Active 81988070 SP Problem HTN (hypertension) I10 Active 3 9274446 SP Problem Hyperlipidemia E78.5 Active 82519 004 SP Problem CAD (coronary artery disease) I25.10 Active 21799638 SP Problem Chronic pain G89.29 Active 6285078 1 SP Problem Post-traumatic stress disorder F43.10 Active 91521308 SP ALLERGIES No Information ENCOUNTERS Encounter Location Date Diagnosis POS [facility] [address] [facility] [id number] [address] [place] [phone] SP Mar, SP [facility] [address] [facility] [id number] [address] [place] [address] SP Feb, Type 2 diabetes mellitus wit h other diabetic neurological SP E11.49 ; 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.29 ; Degenerative disc disease, lumbar M51.36 and Chronic pain G89.29 [facility] [address] [id number] [address] [place] [phone] SP Jan, SP [facility] [address] [id number] [address] [place] [phone] SP Jan, SP [facility] [address] [facility] [id number] [address] [place] [phone] SP Jan, SP [facility] [address] [facility] [id number] [address] [place] [phone] SP Jan, SP [facility] [address] [facility] [id number] [address] [place] [phone] SP Jan, SP [facility] [address] [facility] [id number] [address] [place] [phone] SP Jan, SP [facility] [address] [facility] [id number] [address] [place] [phone] SP Jan, Slurred speech R47.81 ; Atax ia R27.0 and Left arm weakness SP [facility] [address] [facility] [id number] [address] [place] [phone] SP Jan, SP [facility] [address] [facility] [id number] [address] [place] [phone] SP Jan, Type 2 diabetes mellitus wit h hyperglycemia E11.65 and SP vomiting with nausea, unspecified vomiting type R11.2 [facility] [address] [facility] [id number] [address] [place] [phone] SP Dec, CAD (coronary artery disease ) I25.10 and Atypical chest pain SP [facility] [address] [facility] [id number] [address] [place] [phone] SP Dec, SP [facility] [address] [facility] [id number] [address] [place] [phone] SP Dec, Diabetes E11.9 ; Type 2 diab etes mellitus with hyperglycemia SP and Intractable vomiting with nausea, unspecified vomiting type R11.2 [facility] [address] [facility] [id number] [address] [place] [phone] SP Dec, Chronic pain G89.29 SP [facility] [address] [facility] [id number] [address] [place] [phone] SP November, SP [facility] [address] [facility] [id number] [address] [place] [phone] SP November, Diabetes E11.9 ; CAD ([place] ry artery disease) I25.10 ; Atypical SP pain R07.89 ; Type 2 diabetes mellitus with hyperglycemia E11.65 ; 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.29 ; 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 and Chronic pain G89.29 [facility] [address] [facility] [id number] [address] [place] [phone] SP Oct, SP [facility] [address] [facility] [id number] [address] [place] [phone] SP Oct, Chronic pain G89.29 SP [facility] [address] [facility] [id number] [address] [place] [phone] SP Sep, Diabetes E11.9 SP [facility] [address] [facility] [id number] [address] [place] [phone] SP Sep, Chronic pain G89.29 [facility] [address] [facility] [id number] [address] [place] [phone] SP Sep, SP [facility] [address] [facility] [id number] [address] [place] [phone] SP Sep, Falls frequently R29.6 ; Elier g term 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.4 SP Type 2 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 E11.49 [facility] [address] [facility] [id number] [address] [place] [phone] SP Sep, SP [facility] [address] [facility] [id number] [address] [place] [phone] SP Sep, Diabetes E11.9 SP [facility] [address] [facility] [id number] [address] [place] [phone] SP Aug, SP [facility] [address] [facility] [id number] [address] [place] [phone] SP Aug, Chronic pain G89.29 SP [facility] [address] [facility] [id number] [address] [place] [phone] SP Aug, SP [facility] [address] [facility] [id number] [address] [place] [phone] SP Aug, Chronic pain G89.29 SP [facility] [address] [facility] [id number] [address] [place] [phone] SP Jul, SP [facility] [address] [facility] [id number] [address] [place] [phone] SP Jul, Diabetes E11.9 and Type 2 di abetes mellitus with other diabetic SP complication E11.29 [facility] [address] [facility] [id number] [address] [place] [phone] SP Jul, Type 2 diabetes mellitus wit h other diabetic kidney complication SP [facility] [address] [facility] [id number] [address] [place] [phone] SP Jul, SP [facility] [address] [facility] [id number] [address] [place] [phone] SP Jul, Chronic pain G89.29 SP [facility] [address] [facility] [id number] [address] [place] [phone] SP Jun, Diabetes E11.9 SP [facility] [address] [facility] [id number] [address] [place] [phone] SP Jun, Chronic pain G89.29 SP [facility] [address] [facility] [id number] [address] [place] [address] SP Jun, Diabetes E11.9 ; Atypical ch est pain R07.89 ; USP current SP of insulin Z79.4 ; 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.29 ; Type 2 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 E11.49 ; History of pulmonary embolism Z86.711 and History of CVA (cerebrovascular accident) Z86.73 [facility] [address] [facility] [id number] [address] [place] [phone] SP May, SP [facility] [address] [facility] [id number] [address] [place] [phone] SP May, Chronic pain G89.29 SP [facility] [address] [facility] [id number] [address] [place] [phone] SP Apr, Chronic pain G89.29 SP [facility] [address] [facility] [id number] [address] [place] [phone] SP Apr, SP [place] [address] [facility] [id number] [address] [place] [phone] SP Mar, Chronic pain G89.29 SP [facility] [address] [facility] [id number] [address] [place] [phone] SP Mar, Diabetes E11.9 SP [place] [address] [facility] [id number] [address] [place] [phone] SP Mar, SP [facility] [address] [facility] [id number] [address] [place] [phone] SP Mar, Degenerative disc disease, l umbar M51.36 SP [place] [address] [facility] [id number] [address] [place] [phone] SP Feb, Diabetes E11.9 SP [facility] [address] [facility] [id number] [address] [place] [phone] SP Feb, Diabetes E11.9 SP [place] [address] [facility] [id number] [address] [place] [phone] SP Feb, Diabetes E11.9 ; HTN (hypert ension) I10 ; Diabetic neuropathy SP and Leg cramps R25.2 [place] [address] [facility] [id number] [address] [place] [phone] SP 15 Feb, 2017 Sprain of calcaneofibular li gament of right ankle, subsequent SP S93.411D ; Major depressive disorder, recurrent episode, moderate F33.1 ; Diabetes E11.9 ; Hyperlipidemia E78.5 ; Post-traumatic stress disorder F43.10 and Other irritable bowel syndrome K58.8 [facility] [address] [id number] [address] [place] [phone] SP Feb, Major depressive disorder, r ecurrent episode, moderate F33.1 ; SPtraumatic stress disorder F43.10 and Obsessive-compulsive disorder, unspecified type F42.9 [facility] [address] [facility] [id number] [address] [place] [phone] SP Feb, SP [facility] [address] [facility] [id number] [address] [place] [phone] SP Feb, Post-traumatic stress disord er F43.10 and Major depressive SP recurrent, moderate F33.1 [facility] [address] [id number] [address] [place] [phone] SP Feb, Diabetes E11.9 SP [facility] [address] [facility] [id number] [address] [place] [phone] SP Feb, Degenerative disc disease, l umbar M51.36 SP [facility] [address] [facility] [id number] [address] [place] [phone] SP Feb, Post-traumatic stress disord er F43.10 and Major depressive SP recurrent, moderate F33.1 [facility] [address] [id number] [address] [place] [phone] SP Feb, SP [facility] [address] [facility] [id number] [address] [place] [phone] SP Feb, Diabetes E11.9 SP [facility] [address] [facility] [id number] [address] [place] [phone] SP Jan, Diabetes E11.9 SP [facility] [address] [id number] [address] [place] [phone] SP Jan, Post-traumatic stress disord er F43.10 and Major depressive SP recurrent, moderate F33.1 [facility] [address] [id number] [address] [place] [phone] SP Jan, Diabetes E11.9 SP [facility] [address] [id number] [address] [place] [phone] SP Jan, Diabetes E11.9 SP [facility] [address] [id number] [address] [place] [phone] SP Jan, SP [facility] [address] [id number] [address] [place] [phone] SP Jan, SP [facility] [address] [id number] [address] [place] [phone] SP Jan, Post-traumatic stress disord er F43.10 and Major depressive SP recurrent, moderate F33.1 [facility] [address] [id number] [address] [place] [phone] SP Jan, SP [facility] [address] [id number] [address] [place] [phone] SP Jan, Major depressive disorder, r ecurrent episode, moderate F33.1 ; SPtraumatic stress disorder F43.10 and Obsessive-compulsive disorder, unspecified type F42.9 [facility] [address] [id number] [address] [place] [phone] SP Jan, SP [facility] [address] [id number] [address] [place] [phone] SP Jan, Diabetes E11.9 SP [facility] [address] [id number] [address] [place] [phone] SP Jan, SP [facility] [address] [facility] [id number] [address] [place] [phone] SP Jan, Sprain of calcaneofibular li gament of right ankle, subsequent SP S93.411D [facility] [address] [id number] [address] [place] [phone] SP 13 Jan, 2017 Post-traumatic stress disord er F43.10 and Major depressive SP recurrent, moderate F33.1 [facility] [address] [id number] [address] [place] [phone] SP Jan, Diabetes E11.9 SP [facility] [address] [id number] [address] [place] [phone] SP 16 Dec, 2016 Major depressive disorder, r ecurrent episode, moderate F33.1 ; SPtraumatic stress disorder F43.10 and Obsessive-compulsive disorder, unspecified type F42.9 [facility] [address] [id number] [address] [place] [phone] SP 15 Dec, 2016 SP [facility] [address] [id number] [address] [place] [phone] SP 14 Dec, 2016 Sprain of calcaneofibular li gament of right ankle, subsequent SP S93.411D [facility] [address] [id number] [address] [place] [phone] SP Dec, Post-traumatic stress disord er F43.10 and Major depressive SP recurrent, moderate F33.1 [facility] [address] [id number] [address] [place] [phone] SP Dec, Sprain of calcaneofibular li gament of right ankle, subsequent SP S93.411D [facility] [address] [id number] [address] [place] [phone] SP 12 Dec, 2016 Hyperlipidemia E78.5 SP [facility] [address] [id number] [address] [place] [phone] SP Dec, SP [facility] [address] [id number] [address] [place] [phone] SP Dec, Diabetes E11.9 ; Diabetic ne uropathy E11.40 ; Degenerative disc SP lumbar M51.36 ; Hyperlipidemia E78.5 ; Insomnia G47.00 ; CAD (coronary artery disease) I25.10 ; Major depressive disorder, recurrent, moderate F33.1 ; Post- traumatic stress disorder F43.10 and Other irritable bowel syndrome K58.8 [place] [address] [phone] SP November, Diabetic neuropathy E11.40 a nd Hyperlipidemia E78.5 SP [place] [address] [phone] SP November, Degenerative disc disease, l umbar M51.36 SP [place] [address] [address] SP Oct, [place] [address] [phone] SP Oct, Degenerative disc disease, l umbar M51.36 [place] [address] [address] SP Sep, Degenerative disc disease, l umbar M51.36 and HTN (hypertension) SP [place] [address] [phone] SP Sep, Diabetic neuropathy E11.40 ; HTN (hypertension) I10 ; SP disc disease, lumbar M51.36 ; Hyperlipidemia E78.5 ; Insomnia G47.00 ; CAD (coronary artery disease) I25.10 and Diabetes E11.9 [place] [address] [address] SP Aug, [place] [address] [phone] SP Aug, Type 2 diabetes mellitus wit h hyperglycemia E11.65 SP [place] [address] [phone] SP Aug, [place] [address] [address] SP Jul, SP [facility] [address] [facility] [id number] [address] [place] [phone] SP Jul, SP [facility] [address] [facility] [id number] [address] [place] [phone] SP Jun, SP [facility] [address] [facility] [id number] [address] [place] [phone] SP Jun, SP [facility] [address] [facility] [id number] [address] [place] [phone] SP Jun, SP [facility] [address] [facility] [id number] [address] [place] [phone] SP Jun, SP [facility] [address] [facility] [id number] [address] [place] [phone] SP May, Major depressive disorder, r ecurrent episode, moderate F33.1 and SPtraumatic stress disorder F43.10 [facility] [address] [facility] [id number] [address] [place] [phone] SP May, Major depressive disorder, r ecurrent episode, moderate F33.1 and SPtraumatic stress disorder F43.10 [facility] [address] [facility] [id number] [address] [place] [phone] SP May, Diabetes E11.9 ; Diabetic ne uropathy E11.40 ; HTN (hypertension) SP ; Gastritis K29.70 ; Hyperlipidemia E78.5 ; Insomnia G47.00 and Major depressive disorder, recurrent, moderate F33.1 [facility] [address] [facility] [id number] [address] [place] [phone] SP May, Major depressive disorder, r ecurrent episode, moderate F33.1 SP [facility] [address] [facility] [id number] [address] [place] [phone] SP Apr, SP [facility] [address] [facility] [id number] [address] [place] [phone] SP Apr, Major depressive disorder, r ecurrent episode, moderate F33.1 and SPtraumatic stress disorder F43.10 [place] [address] [place] [id number] [address] [place] [address] SP Apr, Diabetes E11.9 ; Diabetic ne uropathy E11.40 ; Degenerative disc SP lumbar M51.36 ; HTN (hypertension) I10 ; Hyperlipidemia E78.5 ; Chronic pain G89.29 ; CAD (coronary artery disease) I25.10 and Major depressive disorder, recurrent, moderate F33.1 [place] [address] [place] [id number] [place] [phone] SP Apr, Major depressive disorder, r ecurrent episode, moderate F33.1 and SPtraumatic stress disorder F43.10 [place] [address] [place] [id number] [place] [address] SP Apr, Major depressive disorder, r ecurrent episode, moderate F33.1 and SPtraumatic stress disorder F43.10 [place] [address] [phone] SP Apr, Major depressive disorder, r ecurrent episode, moderate F33.1 and SP episodic mood disorder F39 [place] [address] [place] [id number] [place] [phone] SP Apr, Chronic pain G89.29 ; Diabet ic neuropathy E11.40 ; HTN SP I10 ; Insomnia G47.00 ; CAD (coronary artery disease) I25.10 ; Hyperlipidemia E78.5 ; Degenerative disc disease, lumbar M51.36 ; Diabetes E11.9 and Gastritis K29.70 [place] [address] [facility] [id number] [address] [place] [phone] SP Sep, SP [place] [address] [place] [id number] [place] [phone] SP Aug, SP [place] [address] [place] [id number] [place] [phone] SP Jul, Major depressive disorder, r ecurrent episode, moderate F33.1 SP [place] [address] [facility] [id number] [address] [place] [phone] SP Jul, Unspecified episodic mood di sorder F39 SP [facility] [address] [facility] [id number] [address] [place] [phone] SP Jul, SP [facility] [address] [facility] [id number] [place] [phone] SP Jul, SP [facility] [address] [place] [id number] [place] [address] SP Jul, SP [facility] [address] [place] [id number] [place] [phone] SP Jul, Type 2 diabetes mellitus wit h hyperglycemia E11.65 ; Diabetic SP E11.40 ; Degenerative disc disease, lumbar M51.36 ; HTN (hypertension) I10 ; Gastritis K29.70 ; Hyperlipidemia E78.5 and CAD (coronary artery disease) I25.10 [place] [address] [address] SP Jul, Severe episode of recurrent major depressive disorder, without SP features F33.2 [place] [address] [address] SP Jul, SP [facility] [address] [place] [id number] [place] [address] SP Jun, SP [facility] [address] [address] SP Jun, Diabetes E11.9 ; Diabetic ne uropathy E11.40 ; Degenerative disc SP lumbar M51.36 ; HTN (hypertension) I10 ; Gastritis K29.70 ; Hyperlipidemia E78.5 ; Unspecified episodic mood disorder F39 ; Depression F32.9 and CAD (coronary artery disease) I25.10 [facility] [address] [facility] [id number] [address] [place] [phone] SP Jun, SP [facility] [address] [place] [id number] [place] [phone] SP Jun, SP [facility] [address] [place] [id number] [place] [id number] SP Jun, Diabetes E11.9 ; Diabetic ne uropathy E11.40 ; Degenerative disc SP lumbar M51.36 ; HTN (hypertension) I10 ; Gastritis K29.70 ; Chronic pain G89.29 ; Insomnia G47.00 and Unspecified episodic mood disorder F39 [facility] [address] [place] [id number] [place] [id number] SP May, Diabetic neuropathy E11.40 ; Degenerative disc disease, lumbar SP ; HTN (hypertension) I10 ; Gastritis K29.70 ; Hyperlipidemia E78.5 ; Chronic pain G89.29 ; Insomnia G47.00 ; Unspecified episodic mood disorder F39 ; Diabetes E11.9 ; CAD (coronary artery disease) I25.10 and H/O Gram positive sepsis Z86.19 [place] [address] [place] [id number] [place] [phone] SP May, SP [facility] [address] [place] [id number] [place] [id number] SP May, SP [place] [address] [id number] SP May, SP [facility] [address] [place] [id number] [place] [id number] SP May, SP [facility] [address] [place] [id number] [place] [id number] SP May, UTI (urinary tract infection ) N39.0 ; Diabetes E11.9 ; Diabetic SP E11.40 ; Hyperlipidemia E78.5 and Chronic pain G89.29 [place] [address] [place] [id number] [place] [id number] SP May, Insomnia, unspecified G47.00 and Chronic pain G89.29 [address] [place] [id number] [place] [id number] [place] [id number] SP May, SP [place] [id number] [facility] [id number] [address] [place] [phone] SP May, SP [facility] [id number] [place] [phone] SP May, SP [facility] [id number] [place] [id number] SP Apr, Insomnia, unspecified G47.00 ; Chronic pain G89.29 and SP episodic mood disorder F39 [facility] [id number] [place] [phone] SP Apr, Unspecified episodic mood di sorder F39 SP [facility] [address] [facility] [id number] [place] [phone] SP Apr, Major depression F32.9 [address] [place] [address] [id number] SP Apr, SP [facility] [address] [id number] SP Apr, Diabetes E11.9 ; Diabetic ne uropathy E11.40 ; Degenerative disc SP lumbar M51.36 ; HTN (hypertension) I10 ; Gastritis K29.70 ; Hyperlipidemia E78.5 ; Chronic pain G89.29 and Insomnia G47.00 [facility] [id number] [place] [phone] SP Mar, SP [facility] [id number] [place] [phone] SP Mar, SP [facility] [id number] [place] [id number] SP Mar, SP [facility] [id number] [place] [phone] SP Mar, Diabetes mellitus 250.00 ; D iabetic neuropathy 250.60 ; CAD SP artery disease) 414.00 ; Degenerative disc disease, lumbar 722.52 ; Gastritis 535.50 and Insomnia 780.52 [facility] [address] [facility] [id number] [address] [place] [phone] SP Mar, Diabetes mellitus 250.00 ; D egenerative disc disease, lumbar SP ; Essential hypertension 401.9 ; Gastritis 535.50 and Chronic pain 338.29 [facility] [id number] [place] [phone] SP Feb, SP [facility] [id number] [place] [id number] SP Feb, SP [facility] [id number] [place] [id number] SP Jan, SP [facility] [id number] [place] [phone] SP Jan, Diabetes mellitus 250.00 ; D iabetic neuropathy 250.60 ; SP disc disease, lumbar 722.52 ; CAD (coronary artery disease) 414.00 ; Essential hypertension 401.9 ; Gastritis 535.50 ; Hyperlipidemia 272.4 and Distal end of ulna fracture, closed 813.43 [facility] [address] [id number] SP Dec, Wrist pain 719.43 and Diabet es mellitus 250.00 SP [facility] [id number] [place] [phone] SP May, SP [facility] [id number] [place] [phone] SP Dec, SP [facility] [id number] [place] [phone] SP November, SP [facility] [id number] [place] [phone] SP Oct, SP [facility] [id number] [place] [phone] SP Sep, SP [facility] [address] [id number] SP 11 Sep, 2009 SP [facility] [address] [id number] [address] [place] [address], [place] [phone] SP Jun, SP [facility] [address] [id number] [address] [place] [phone] SP Jun, SP [facility] [address] [id number] [address] [place] [phone] SP 14 Jun, 2009 SP [facility] [address] [id number] [address] [place] [phone] SP Jun, SP [facility] [address] [id number] [address] [place] [address], [place] [id number] SP Jun, SP [facility] [address] [facility] [id number] [address] [place] [phone] SP Jun, SP [facility] [address] [id number] [address] [place] [phone] SP Jun, SP [facility] [address] [id number] [address] [place] [address], [place] [id number] SP May, SP [facility] [address] [id number] [address] [place] [phone] SP May, SP [facility] [address] [id number] [address] [place] [phone] SP May, SP [facility] [address] [id number] [address] [place] [phone] SP May, SP [facility] [address] [id number] [address] [place] [address], [place] [id number] SP Apr, SP [facility] [address] [id number] [address] [place] [phone] SP Apr, SP [facility] [address] [id number] [address] [place] [id number] SP 12 Apr, 2009 SP [facility] [address] [facility] [id number] [address] [place] [address] SP Mar, SP [facility] [address] [facility] [id number] [address] [address] SP Dec, SP IMMUNIZATIONS No Known Immunizations SOCIAL HISTORY Never Assessed REASON FOR VISIT BS f/u attempt PLAN OF CARE VITAL SIGNS MEDICATIONS [...]
--- OUTSIDE RECORDS SUMMARY | 2019-06-14 01:39 | XMS REPORT ---
Author Author JALEN PEREZ POS Organization [facility] SP Address [address] [place] [address] SP Care Team Providers Care Bods Developer Name Role Phone POS RISSAKARTIKFLAQUITOY Unavailable SP PROBLEMS Type Condition ICD9-CM Code BXI12-VG Code Onset Dates Condition S tatus SNOMED POS Problem Type 2 diabetes mellitus with hyperglycemia E11.65 Active POS Problem Major depressive disorder, recurrent episode, moderate F33.1 Active SP Problem Obsessive-compulsive disorder, unspecified type F4 2.9 Active SP Problem Ataxia R27.0 Active [id number] SP Problem Falls frequently R29.6 Active [id number] SP Problem Type 2 diabetes mellitus with other diab etic neurological complication SP E11.49 Active 99741019 SP Problem 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 Active [id number] SP Problem History of pulmonary embolism Z86.711 Active 670172063 SP Problem Type 2 diabetes mellitus with other diabetic kid allen complication SP Active 02909274 SP Problem Insomnia G47.00 Active 482743255 SP Problem Degenerative disc disease, lumbar M51.36 Active 17067973 SP Problem HTN (hypertension) I10 Active 3 3718476 SP Problem Hyperlipidemia E78.5 Active 91731 004 SP Problem CAD (coronary artery disease) I25.10 Active 58338994 SP Problem Chronic pain G89.29 Active 9332911 1 SP Problem Post-traumatic stress disorder F43.10 Active 57861997 SP ALLERGIES No Information ENCOUNTERS Encounter Location Date Diagnosis POS [facility] [address] [facility] [id number] [address] [place] [phone] SP Mar, SP [facility] [address] [facility] [id number] [address] [place] [phone] SP Feb, Type 2 diabetes mellitus wit h other diabetic neurological SP E11.49 ; 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.29 ; Degenerative disc disease, lumbar M51.36 and Chronic pain G89.29 [facility] [address] [id number] [address] [place] [phone] SP Jan, SP [facility] [address] [id number] [address] [place] [phone] SP Jan, SP [facility] [address] [facility] [id number] [address] [place] [phone] SP Jan, SP [facility] [address] [facility] [id number] [address] [place] [phone] SP Jan, SP [facility] [address] [facility] [id number] [address] [place] [phone] SP Jan, SP [facility] [address] [facility] [id number] [address] [place] [phone] SP Jan, SP [facility] [address] [facility] [id number] [address] [place] [phone] SP Jan, Slurred speech R47.81 ; Atax ia R27.0 and Left arm weakness SP [facility] [address] [facility] [id number] [address] [place] [address] SP Jan, SP [facility] [address] [facility] [id number] [address] [place] [phone] SP Jan, Type 2 diabetes mellitus wit h hyperglycemia E11.65 and SP vomiting with nausea, unspecified vomiting type R11.2 [facility] [address] [facility] [id number] [address] [place] [phone] SP Dec, CAD (coronary artery disease ) I25.10 and Atypical chest pain SP [facility] [address] [facility] [id number] [address] [place] [phone] SP Dec, SP [facility] [address] [facility] [id number] [address] [place] [phone] SP Dec, Diabetes E11.9 ; Type 2 diab etes mellitus with hyperglycemia SP and Intractable vomiting with nausea, unspecified vomiting type R11.2 [facility] [address] [facility] [id number] [address] [place] [phone] SP Dec, Chronic pain G89.29 SP [facility] [address] [facility] [id number] [address] [place] [phone] SP November, SP [facility] [address] [facility] [id number] [address] [place] [phone] SP November, Diabetes E11.9 ; CAD ([place]in[place] ry artery disease) I25.10 ; Atypical SP pain R07.89 ; Type 2 diabetes mellitus with hyperglycemia E11.65 ; 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.29 ; 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 and Chronic pain G89.29 [facility] [address] [facility] [id number] [address] [place] [phone] SP Oct, SP [facility] [address] [facility] [id number] [address] [place] [phone] SP Oct, Chronic pain G89.29 SP [facility] [address] [facility] [id number] [address] [place] [phone] SP Sep, Diabetes E11.9 SP [facility] [address] [facility] [id number] [address] [place] [address] SP Sep, Chronic pain G89.29 [facility] [address] [facility] [id number] [address] [place] [phone] SP Sep, SP [facility] [address] [facility] [id number] [address] [place] [phone] SP Sep, Falls frequently R29.6 ; Elier g term 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.4 SP Type 2 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 E11.49 [facility] [address] [facility] [id number] [address] [place] [phone] SP Sep, SP [facility] [address] [facility] [id number] [address] [place] [phone] SP Sep, Diabetes E11.9 SP [facility] [address] [facility] [id number] [address] [place] [phone] SP Aug, SP [facility] [address] [facility] [id number] [address] [place] [phone] SP Aug, Chronic pain G89.29 SP [facility] [address] [facility] [id number] [address] [place] [address] SP Aug, SP [facility] [address] [facility] [id number] [address] [place] [address] SP Aug, Chronic pain G89.29 SP [facility] [address] [facility] [id number] [address] [place] [phone] SP Jul, SP [facility] [address] [facility] [id number] [address] [place] [address] SP Jul, Diabetes E11.9 and Type 2 di abetes mellitus with other diabetic SP complication E11.29 [facility] [address] [facility] [id number] [address] [place] [phone] SP Jul, Type 2 diabetes mellitus wit h other diabetic kidney complication SP [facility] [address] [facility] [id number] [address] [place] [address] SP Jul, SP [facility] [address] [facility] [id number] [address] [place] [address] SP Jul, Chronic pain G89.29 SP [facility] [address] [facility] [id number] [address] [place] [phone] SP Jun, Diabetes E11.9 SP [facility] [address] [facility] [id number] [address] [place] [address] SP Jun, Chronic pain G89.29 SP [facility] [address] [facility] [id number] [address] [place] [phone] SP Jun, Diabetes E11.9 ; Atypical ch est pain R07.89 ; skilled nursing current SP of insulin Z79.4 ; 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.29 ; Type 2 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 E11.49 ; History of pulmonary embolism Z86.711 and History of CVA (cerebrovascular accident) Z86.73 [facility] [address] [facility] [id number] [address] [place] [address] SP May, SP [facility] [address] [facility] [id number] [address] [place] [phone] SP May, Chronic pain G89.29 SP [facility] [address] [facility] [id number] [address] [place] [address] SP Apr, Chronic pain G89.29 SP [facility] [address] [facility] [id number] [address] [place] [address] SP Apr, SP [place] [address] [facility] [id number] [address] [place] [address] SP Mar, Chronic pain G89.29 SP [facility] [address] [facility] [id number] [address] [place] [phone] SP Mar, Diabetes E11.9 SP [place] [address] [facility] [id number] [address] [place] [phone] SP Mar, SP [facility] [address] [facility] [id number] [address] [place] [address] SP Mar, Degenerative disc disease, l umbar M51.36 SP [place] [address] [facility] [id number] [address] [place] [phone] SP Feb, Diabetes E11.9 SP [facility] [address] [facility] [id number] [address] [place] [phone] SP Feb, Diabetes E11.9 SP [place] [address] [facility] [id number] [address] [place] [phone] SP Feb, Diabetes E11.9 ; HTN (hypert ension) I10 ; Diabetic neuropathy SP and Leg cramps R25.2 [place] [address] [facility] [id number] [address] [place] [phone] SP 15 Feb, 2017 Sprain of calcaneofibular li gament of right ankle, subsequent SP S93.411D ; Major depressive disorder, recurrent episode, moderate F33.1 ; Diabetes E11.9 ; Hyperlipidemia E78.5 ; Post-traumatic stress disorder F43.10 and Other irritable bowel syndrome K58.8 [facility] [address] [id number] [address] [place] [address] SP Feb, Major depressive disorder, r ecurrent episode, moderate F33.1 ; SPtraumatic stress disorder F43.10 and Obsessive-compulsive disorder, unspecified type F42.9 [facility] [address] [facility] [id number] [address] [place] [phone] SP Feb, SP [facility] [address] [facility] [id number] [address] [place] [phone] SP Feb, Post-traumatic stress disord er F43.10 and Major depressive SP recurrent, moderate F33.1 [facility] [address] [id number] [address] [place] [phone] SP Feb, Diabetes E11.9 SP [facility] [address] [facility] [id number] [address] [place] [phone] SP Feb, Degenerative disc disease, l umbar M51.36 SP [facility] [address] [facility] [id number] [address] [place] [phone] SP Feb, Post-traumatic stress disord er F43.10 and Major depressive SP recurrent, moderate F33.1 [facility] [address] [id number] [address] [place] [phone] SP Feb, SP [facility] [address] [facility] [id number] [address] [place] [phone] SP Feb, Diabetes E11.9 SP [facility] [address] [facility] [id number] [address] [place] [phone] SP Jan, Diabetes E11.9 SP [facility] [address] [id number] [address] [place] [phone] SP Jan, Post-traumatic stress disord er F43.10 and Major depressive SP recurrent, moderate F33.1 [facility] [address] [id number] [address] [place] [phone] SP Jan, Diabetes E11.9 SP [facility] [address] [id number] [address] [place] [phone] SP Jan, Diabetes E11.9 SP [facility] [address] [id number] [address] [place] [phone] SP Jan, SP [facility] [address] [id number] [address] [place] [phone] SP Jan, SP [facility] [address] [id number] [address] [place] [phone] SP Jan, Post-traumatic stress disord er F43.10 and Major depressive SP recurrent, moderate F33.1 [facility] [address] [id number] [address] [place] [phone] SP Jan, SP [facility] [address] [id number] [address] [place] [phone] SP Jan, Major depressive disorder, r ecurrent episode, moderate F33.1 ; SPtraumatic stress disorder F43.10 and Obsessive-compulsive disorder, unspecified type F42.9 [facility] [address] [id number] [address] [place] [phone] SP Jan, SP [facility] [address] [id number] [address] [place] [phone] SP Jan, Diabetes E11.9 SP [facility] [address] [id number] [address] [place] [phone] SP Jan, SP [facility] [address] [facility] [id number] [address] [place] [phone] SP Jan, Sprain of calcaneofibular li gament of right ankle, subsequent SP S93.411D [facility] [address] [id number] [address] [place] [phone] SP 13 Jan, 2017 Post-traumatic stress disord er F43.10 and Major depressive SP recurrent, moderate F33.1 [facility] [address] [id number] [address] [place] [phone] SP Jan, Diabetes E11.9 SP [facility] [address] [id number] [address] [place] [phone] SP 16 Dec, 2016 Major depressive disorder, r ecurrent episode, moderate F33.1 ; SPtraumatic stress disorder F43.10 and Obsessive-compulsive disorder, unspecified type F42.9 [facility] [address] [id number] [address] [place] [address] SP 15 Dec, 2016 SP [facility] [address] [id number] [address] [place] [phone] SP 14 Dec, 2016 Sprain of calcaneofibular li gament of right ankle, subsequent SP S93.411D [facility] [address] [id number] [address] [place] [address] SP Dec, Post-traumatic stress disord er F43.10 and Major depressive SP recurrent, moderate F33.1 [facility] [address] [id number] [address] [place] [address] SP Dec, Sprain of calcaneofibular li gament of right ankle, subsequent SP S93.411D [facility] [address] [id number] [address] [place] [phone] SP 12 Dec, 2016 Hyperlipidemia E78.5 SP [facility] [address] [id number] [address] [place] [phone] SP Dec, SP [facility] [address] [id number] [address] [place] [phone] SP Dec, Diabetes E11.9 ; Diabetic ne uropathy E11.40 ; Degenerative disc SP lumbar M51.36 ; Hyperlipidemia E78.5 ; Insomnia G47.00 ; CAD (coronary artery disease) I25.10 ; Major depressive disorder, recurrent, moderate F33.1 ; Post- traumatic stress disorder F43.10 and Other irritable bowel syndrome K58.8 [place] [address] [phone] SP November, Diabetic neuropathy E11.40 a nd Hyperlipidemia E78.5 SP [place] [address] [address] SP November, Degenerative disc disease, l umbar M51.36 SP [place] [address] [address] SP Oct, [place] [address] [address] SP Oct, Degenerative disc disease, l umbar M51.36 [place] [address] [address] SP Sep, Degenerative disc disease, l umbar M51.36 and HTN (hypertension) SP [place] [address] [address] SP Sep, Diabetic neuropathy E11.40 ; HTN (hypertension) I10 ; SP disc disease, lumbar M51.36 ; Hyperlipidemia E78.5 ; Insomnia G47.00 ; CAD (coronary artery disease) I25.10 and Diabetes E11.9 [place] [address] [address] SP Aug, [place] [address] [address] SP Aug, Type 2 diabetes mellitus wit h hyperglycemia E11.65 SP [place] [address] [address] SP Aug, [place] [address] [address] SP Jul, SP [facility] [address] [facility] [id number] [address] [place] [address] SP Jul, SP [facility] [address] [facility] [id number] [address] [place] [address] SP Jun, SP [facility] [address] [facility] [id number] [address] [place] [address] SP Jun, SP [facility] [address] [facility] [id number] [address] [place] [phone] SP Jun, SP [facility] [address] [facility] [id number] [address] [place] [address] SP Jun, SP [facility] [address] [facility] [id number] [address] [place] [phone] SP May, Major depressive disorder, r ecurrent episode, moderate F33.1 and SPtraumatic stress disorder F43.10 [facility] [address] [facility] [id number] [address] [place] [phone] SP May, Major depressive disorder, r ecurrent episode, moderate F33.1 and SPtraumatic stress disorder F43.10 [facility] [address] [facility] [id number] [address] [place] [address] SP May, Diabetes E11.9 ; Diabetic ne uropathy E11.40 ; HTN (hypertension) SP ; Gastritis K29.70 ; Hyperlipidemia E78.5 ; Insomnia G47.00 and Major depressive disorder, recurrent, moderate F33.1 [facility] [address] [facility] [id number] [address] [place] [address] SP May, Major depressive disorder, r ecurrent episode, moderate F33.1 SP [facility] [address] [facility] [id number] [address] [place] [phone] SP Apr, SP [facility] [address] [facility] [id number] [address] [place] [address] SP Apr, Major depressive disorder, r ecurrent episode, moderate F33.1 and SPtraumatic stress disorder F43.10 [place] [address] [place] [id number] [address] [place] [address] SP Apr, Diabetes E11.9 ; Diabetic ne uropathy E11.40 ; Degenerative disc SP lumbar M51.36 ; HTN (hypertension) I10 ; Hyperlipidemia E78.5 ; Chronic pain G89.29 ; CAD (coronary artery disease) I25.10 and Major depressive disorder, recurrent, moderate F33.1 [place] [address] [place] [id number] [place] [address] SP Apr, Major depressive disorder, r ecurrent episode, moderate F33.1 and SPtraumatic stress disorder F43.10 [place] [address] [place] [id number] [place] [address] SP Apr, Major depressive disorder, r ecurrent episode, moderate F33.1 and SPtraumatic stress disorder F43.10 [place] [address] [address] SP Apr, Major depressive disorder, r ecurrent episode, moderate F33.1 and SP episodic mood disorder F39 [place] [address] [place] [id number] [place] [address] SP Apr, Chronic pain G89.29 ; Diabet ic neuropathy E11.40 ; HTN SP I10 ; Insomnia G47.00 ; CAD (coronary artery disease) I25.10 ; Hyperlipidemia E78.5 ; Degenerative disc disease, lumbar M51.36 ; Diabetes E11.9 and Gastritis K29.70 [place] [address] [facility] [id number] [address] [place] [phone] SP Sep, SP [place] [address] [place] [id number] [place] [address] SP Aug, SP [place] [address] [place] [id number] [place] [address] SP Jul, Major depressive disorder, r ecurrent episode, moderate F33.1 SP [place] [address] [facility] [id number] [address] [place] [phone] SP Jul, Unspecified episodic mood di sorder F39 SP [facility] [address] [facility] [id number] [address] [place] [address] SP Jul, SP [facility] [address] [facility] [id number] [place] [address] SP Jul, SP [facility] [address] [place] [id number] [place] [address] SP Jul, SP [facility] [address] [place] [id number] [place] [address] SP Jul, Type 2 diabetes mellitus wit h hyperglycemia E11.65 ; Diabetic SP E11.40 ; Degenerative disc disease, lumbar M51.36 ; HTN (hypertension) I10 ; Gastritis K29.70 ; Hyperlipidemia E78.5 and CAD (coronary artery disease) I25.10 [place] [address] [address] SP Jul, Severe episode of recurrent major depressive disorder, without SP features F33.2 [place] [address] [phone] SP Jul, SP [facility] [address] [place] [id number] [place] [address] SP Jun, SP [facility] [address] [address] SP Jun, Diabetes E11.9 ; Diabetic ne uropathy E11.40 ; Degenerative disc SP lumbar M51.36 ; HTN (hypertension) I10 ; Gastritis K29.70 ; Hyperlipidemia E78.5 ; Unspecified episodic mood disorder F39 ; Depression F32.9 and CAD (coronary artery disease) I25.10 [facility] [address] [facility] [id number] [address] [place] [address] SP Jun, SP [facility] [address] [place] [id number] [place] [address] SP Jun, SP [facility] [address] [place] [id number] [address] [place] [address] SP Jun, Diabetes E11.9 ; Diabetic ne uropathy E11.40 ; Degenerative disc SP lumbar M51.36 ; HTN (hypertension) I10 ; Gastritis K29.70 ; Chronic pain G89.29 ; Insomnia G47.00 and Unspecified episodic mood disorder F39 [facility] [address] [place] [id number] [address] [place] [address] SP May, Diabetic neuropathy E11.40 ; Degenerative disc disease, lumbar SP ; HTN (hypertension) I10 ; Gastritis K29.70 ; Hyperlipidemia E78.5 ; Chronic pain G89.29 ; Insomnia G47.00 ; Unspecified episodic mood disorder F39 ; Diabetes E11.9 ; CAD (coronary artery disease) I25.10 and H/O Gram positive sepsis Z86.19 [place] [address] [place] [id number] [address] [place] [address] SP May, SP [facility] [address] [place] [id number] [address] [place] [address] SP May, SP [place] [address] [address] SP May, SP [facility] [address] [place] [id number] [address] [place] [phone] SP May, SP [facility] [address] [place] [id number] [address] [place] [phone] SP May, UTI (urinary tract infection ) N39.0 ; Diabetes E11.9 ; Diabetic SP E11.40 ; Hyperlipidemia E78.5 and Chronic pain G89.29 [place] [address] [place] [id number] [address] [place] [phone] SP May, Insomnia, unspecified G47.00 and Chronic pain G89.29 SP [place] [address] [place] [id number] [address] [place] [address] SP May, SP [place] [address] [facility] [id number] [address] [place] [address] SP May, SP [facility] [address] [place] [id number] [place] [id number] SP May, SP [facility] [address] [place] [id number] [place] [id number] SP Apr, Insomnia, unspecified G47.00 ; Chronic pain G89.29 and SP episodic mood disorder F39 [facility] [address] [place] [id number] [place] [id number] SP Apr, Unspecified episodic mood di sorder F39 SP [facility] [address] [facility] [id number] [place] [id number] SP Apr, Major depression F32.9 SP [place] [address] [id number] SP Apr, SP [facility] [address] [id number] SP Apr, Diabetes E11.9 ; Diabetic ne uropathy E11.40 ; Degenerative disc SP lumbar M51.36 ; HTN (hypertension) I10 ; Gastritis K29.70 ; Hyperlipidemia E78.5 ; Chronic pain G89.29 and Insomnia G47.00 [facility] [address] [place] [id number] [place] [id number] SP Mar, SP [facility] [address] [place] [id number] [address] [place] [phone] SP Mar, SP [facility] [address] [place] [id number] [address] [place] [phone] SP Mar, SP [facility] [address] [place] [id number] [address] [place] [phone] SP Mar, Diabetes mellitus 250.00 ; D iabetic neuropathy 250.60 ; CAD SP artery disease) 414.00 ; Degenerative disc disease, lumbar 722.52 ; Gastritis 535.50 and Insomnia 780.52 [facility] [address] [facility] [id number] [address] [place] [id number] SP Mar, Diabetes mellitus 250.00 ; D egenerative disc disease, lumbar SP ; Essential hypertension 401.9 ; Gastritis 535.50 and Chronic pain 338.29 [facility] [address] [place] [id number] [place] [phone] SP Feb, SP [facility] [address] [place] [id number] [place] [phone] SP Feb, SP [facility] [address] [id number] [place] [phone] SP Jan, SP [facility] [address] [place] [id number] [place] [address] SP Jan, Diabetes mellitus 250.00 ; D iabetic neuropathy 250.60 ; SP disc disease, lumbar 722.52 ; CAD (coronary artery disease) 414.00 ; Essential hypertension 401.9 ; Gastritis 535.50 ; Hyperlipidemia 272.4 and Distal end of ulna fracture, closed 813.43 [facility] [address] [phone] SP Dec, Wrist pain 719.43 and Diabet es mellitus 250.00 SP [facility] [address] [place] [id number] [place] [phone] SP May, SP [facility] [address] [place] [id number] [place] [phone] SP Dec, SP [facility] [address] [place] [id number] [address] [place] [phone] SP November, SP [facility] [address] [place] [id number] [place] [id number] SP Oct, SP [facility] [address] [place] [id number] [place] [phone] SP Sep, SP [facility] [address] [phone] SP 11 Sep, 2009 SP [facility] [address] [id number] [address] [place] [address], [place] [address] SP Jun, SP [facility] [address] [id number] [address] [place] [phone] SP Jun, SP [facility] [address] [id number] [address] [place] [phone] SP 14 Jun, 2009 SP [facility] [address] [id number] [address] [place] [phone] SP Jun, SP [facility] [address] [id number] [address] [place] [address], [place] [address] SP Jun, SP [facility] [address] [facility] [id number] [address] [place] [phone] SP Jun, SP [facility] [address] [id number] [address] [place] [phone] SP Jun, SP [facility] [address] [id number] [address] [place] [address], [place] [phone] SP May, SP [facility] [address] [id number] [address] [place] [phone] SP May, SP [facility] [address] [id number] [address] [place] [phone] SP May, SP [facility] [address] [id number] [address] [place] [phone] SP May, SP [facility] [address] [id number] [address] [place] [address], [place] [address] SP Apr, SP [facility] [address] [id number] [address] [place] [phone] SP Apr, SP [facility] [address] [id number] [address] [place] [id number] SP 12 Apr, 2009 SP [facility] [address] [facility] [id number] [address] [place] [address] SP Mar, SP [facility] [address] [facility] [id number] [address] [place] [address] SP Dec, SP IMMUNIZATIONS No Known Immunizations SOCIAL HISTORY Never Assessed REASON FOR VISIT Medication refill request PLAN OF CARE VITAL SIGNS MEDICATIONS Medication Instructions Dosage Frequency Start Date End Date Duration S tatus POS Hydrocodone-Acetaminophen 10-325 MG Orally 3 times a day 1 tablet a s needed 8h SP Dec, 2017 28 days Active SP RESULTS No Results [...]
--- OUTSIDE RECORDS SUMMARY | 2019-06-14 01:39 | XMS REPORT ---
Author Author JALEN PEREZ POS Organization [facility] SP Address [address] [place] [address] SP Care Team Providers Care Psychology Technician Name Role Phone POS RISSAKARTIKFLAQUITOY Unavailable SP PROBLEMS Type Condition ICD9-CM Code QSX35-VS Code Onset Dates Condition S tatus SNOMED POS Problem Type 2 diabetes mellitus with hyperglycemia E11.65 Active POS Problem Major depressive disorder, recurrent episode, moderate F33.1 Active SP Problem Obsessive-compulsive disorder, unspecified type F4 2.9 Active SP Problem Ataxia R27.0 Active [id number] SP Problem Falls frequently R29.6 Active 279 566417 SP Problem Type 2 diabetes mellitus with other diab etic neurological complication SP E11.49 Active 15630950 SP 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 Active 436905574 SP Problem History of pulmonary embolism Z86.711 Active 322747651 SP Problem Type 2 diabetes mellitus with other diabetic kid allen complication SP Active 97125630 SP Problem Insomnia G47.00 Active 544520873 SP Problem Degenerative disc disease, lumbar M51.36 Active 20704693 SP Problem HTN (hypertension) I10 Active 3 4155541 SP Problem Hyperlipidemia E78.5 Active 97356 004 SP Problem CAD (coronary artery disease) I25.10 Active 32616076 SP Problem Chronic pain G89.29 Active 8734046 1 SP Problem Post-traumatic stress disorder F43.10 Active 73589915 SP ALLERGIES No Information ENCOUNTERS Encounter Location Date Diagnosis POS [facility] [address] [facility] [id number] [address] [place] [phone] SP Mar, SP [facility] [address] [facility] [id number] [address] [place] [phone] SP Feb, Type 2 diabetes mellitus wit h other diabetic neurological SP E11.49 ; 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.29 ; Degenerative disc disease, lumbar M51.36 and Chronic pain G89.29 [facility] [address] [id number] [address] [place] [phone] SP Jan, SP [facility] [address] [id number] [address] [place] [phone] SP Jan, SP [facility] [address] [facility] [id number] [address] [place] [phone] SP Jan, SP [facility] [address] [facility] [id number] [address] [place] [phone] SP Jan, SP [facility] [address] [facility] [id number] [address] [place] [phone] SP Jan, SP [facility] [address] [facility] [id number] [address] [place] [phone] SP Jan, SP [facility] [address] [facility] [id number] [address] [place] [phone] SP Jan, Slurred speech R47.81 ; Atax ia R27.0 and Left arm weakness SP [facility] [address] [facility] [id number] [address] [place] [phone] SP Jan, SP [facility] [address] [facility] [id number] [address] [place] [phone] SP Jan, Type 2 diabetes mellitus wit h hyperglycemia E11.65 and SP vomiting with nausea, unspecified vomiting type R11.2 [facility] [address] [facility] [id number] [address] [place] [phone] SP Dec, CAD (coronary artery disease ) I25.10 and Atypical chest pain SP [facility] [address] [facility] [id number] [address] [place] [phone] SP Dec, SP [facility] [address] [facility] [id number] [address] [place] [phone] SP Dec, Diabetes E11.9 ; Type 2 diab etes mellitus with hyperglycemia SP and Intractable vomiting with nausea, unspecified vomiting type R11.2 [facility] [address] [facility] [id number] [address] [place] [phone] SP Dec, Chronic pain G89.29 SP [facility] [address] [facility] [id number] [address] [place] [phone] SP November, SP [facility] [address] [facility] [id number] [address] [place] [phone] SP November, Diabetes E11.9 ; CAD ([place]in[place] ry artery disease) I25.10 ; Atypical SP pain R07.89 ; Type 2 diabetes mellitus with hyperglycemia E11.65 ; 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.29 ; 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 and Chronic pain G89.29 [facility] [address] [facility] [id number] [address] [place] [phone] SP Oct, SP [facility] [address] [facility] [id number] [address] [place] [phone] SP Oct, Chronic pain G89.29 SP [facility] [address] [facility] [id number] [address] [place] [phone] SP Sep, Diabetes E11.9 SP [facility] [address] [facility] [id number] [address] [place] [phone] SP Sep, Chronic pain G89.29 [facility] [address] [facility] [id number] [address] [place] [phone] SP Sep, SP [facility] [address] [facility] [id number] [address] [place] [phone] SP Sep, Falls frequently R29.6 ; Elier g term 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.4 SP Type 2 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 E11.49 [facility] [address] [facility] [id number] [address] [place] [phone] SP Sep, SP [facility] [address] [facility] [id number] [address] [place] [phone] SP Sep, Diabetes E11.9 SP [facility] [address] [facility] [id number] [address] [place] [phone] SP Aug, SP [facility] [address] [facility] [id number] [address] [place] [phone] SP Aug, Chronic pain G89.29 SP [facility] [address] [facility] [id number] [address] [place] [phone] SP Aug, SP [facility] [address] [facility] [id number] [address] [place] [phone] SP Aug, Chronic pain G89.29 SP [facility] [address] [facility] [id number] [address] [place] [phone] SP Jul, SP [facility] [address] [facility] [id number] [address] [place] [phone] SP Jul, Diabetes E11.9 and Type 2 di abetes mellitus with other diabetic SP complication E11.29 [facility] [address] [facility] [id number] [address] [place] [phone] SP Jul, Type 2 diabetes mellitus wit h other diabetic kidney complication SP [facility] [address] [facility] [id number] [address] [place] [phone] SP Jul, SP [facility] [address] [facility] [id number] [address] [place] [phone] SP Jul, Chronic pain G89.29 SP [facility] [address] [facility] [id number] [address] [place] [phone] SP Jun, Diabetes E11.9 SP [facility] [address] [facility] [id number] [address] [place] [phone] SP Jun, Chronic pain G89.29 SP [facility] [address] [facility] [id number] [address] [place] [phone] SP Jun, Diabetes E11.9 ; Atypical ch est pain R07.89 ; [facility] current SP of insulin Z79.4 ; 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.29 ; Type 2 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 E11.49 ; History of pulmonary embolism Z86.711 and History of CVA (cerebrovascular accident) Z86.73 [facility] [address] [facility] [id number] [address] [place] [phone] SP May, SP [facility] [address] [facility] [id number] [address] [place] [phone] SP May, Chronic pain G89.29 SP [facility] [address] [facility] [id number] [address] [place] [phone] SP Apr, Chronic pain G89.29 SP [facility] [address] [facility] [id number] [address] [place] [phone] SP Apr, SP [place] [address] [facility] [id number] [address] [place] [phone] SP Mar, Chronic pain G89.29 SP [facility] [address] [facility] [id number] [address] [place] [phone] SP Mar, Diabetes E11.9 SP [place] [address] [facility] [id number] [address] [place] [phone] SP Mar, SP [facility] [address] [facility] [id number] [address] [place] [phone] SP Mar, Degenerative disc disease, l umbar M51.36 SP [place] [address] [facility] [id number] [address] [place] [phone] SP Feb, Diabetes E11.9 SP [facility] [address] [facility] [id number] [address] [place] [phone] SP Feb, Diabetes E11.9 SP [place] [address] [facility] [id number] [address] [place] [phone] SP Feb, Diabetes E11.9 ; HTN (hypert ension) I10 ; Diabetic neuropathy SP and Leg cramps R25.2 [place] [address] [facility] [id number] [address] [place] [phone] SP 15 Feb, 2017 Sprain of calcaneofibular li gament of right ankle, subsequent SP S93.411D ; Major depressive disorder, recurrent episode, moderate F33.1 ; Diabetes E11.9 ; Hyperlipidemia E78.5 ; Post-traumatic stress disorder F43.10 and Other irritable bowel syndrome K58.8 [facility] [address] [id number] [address] [place] [phone] SP Feb, Major depressive disorder, r ecurrent episode, moderate F33.1 ; SPtraumatic stress disorder F43.10 and Obsessive-compulsive disorder, unspecified type F42.9 [facility] [address] [facility] [id number] [address] [place] [phone] SP Feb, SP [facility] [address] [facility] [id number] [address] [place] [phone] SP Feb, Post-traumatic stress disord er F43.10 and Major depressive SP recurrent, moderate F33.1 [facility] [address] [id number] [address] [place] [phone] SP Feb, Diabetes E11.9 SP [facility] [address] [facility] [id number] [address] [place] [phone] SP Feb, Degenerative disc disease, l umbar M51.36 SP [facility] [address] [facility] [id number] [address] [place] [phone] SP Feb, Post-traumatic stress disord er F43.10 and Major depressive SP recurrent, moderate F33.1 [facility] [address] [id number] [address] [place] [phone] SP Feb, SP [facility] [address] [facility] [id number] [address] [place] [phone] SP Feb, Diabetes E11.9 SP [facility] [address] [facility] [id number] [address] [place] [phone] SP Jan, Diabetes E11.9 SP [facility] [address] [id number] [address] [place] [phone] SP Jan, Post-traumatic stress disord er F43.10 and Major depressive SP recurrent, moderate F33.1 [facility] [address] [id number] [address] [place] [phone] SP Jan, Diabetes E11.9 SP [facility] [address] [id number] [address] [place] [phone] SP Jan, Diabetes E11.9 SP [facility] [address] [id number] [address] [place] [phone] SP Jan, SP [facility] [address] [id number] [address] [place] [phone] SP Jan, SP [facility] [address] [id number] [address] [place] [phone] SP Jan, Post-traumatic stress disord er F43.10 and Major depressive SP recurrent, moderate F33.1 [facility] [address] [id number] [address] [place] [phone] SP Jan, SP [facility] [address] [id number] [address] [place] [phone] SP Jan, Major depressive disorder, r ecurrent episode, moderate F33.1 ; SPtraumatic stress disorder F43.10 and Obsessive-compulsive disorder, unspecified type F42.9 [facility] [address] [id number] [address] [place] [phone] SP Jan, SP [facility] [address] [id number] [address] [place] [phone] SP Jan, Diabetes E11.9 SP [facility] [address] [id number] [address] [place] [phone] SP Jan, SP [facility] [address] [facility] [id number] [address] [place] [phone] SP Jan, Sprain of calcaneofibular li gament of right ankle, subsequent SP S93.411D [facility] [address] [id number] [address] [place] [phone] SP 13 Jan, 2017 Post-traumatic stress disord er F43.10 and Major depressive SP recurrent, moderate F33.1 [facility] [address] [id number] [address] [place] [phone] SP Jan, Diabetes E11.9 SP [facility] [address] [id number] [address] [place] [phone] SP 16 Dec, 2016 Major depressive disorder, r ecurrent episode, moderate F33.1 ; SPtraumatic stress disorder F43.10 and Obsessive-compulsive disorder, unspecified type F42.9 [facility] [address] [id number] [address] [place] [phone] SP 15 Dec, 2016 SP [facility] [address] [id number] [address] [place] [phone] SP 14 Dec, 2016 Sprain of calcaneofibular li gament of right ankle, subsequent SP S93.411D [facility] [address] [id number] [address] [place] [phone] SP Dec, Post-traumatic stress disord er F43.10 and Major depressive SP recurrent, moderate F33.1 [facility] [address] [id number] [address] [place] [phone] SP Dec, Sprain of calcaneofibular li gament of right ankle, subsequent SP S93.411D [facility] [address] [id number] [address] [place] [phone] SP 12 Dec, 2016 Hyperlipidemia E78.5 SP [facility] [address] [id number] [address] [place] [phone] SP Dec, SP [facility] [address] [id number] [address] [place] [phone] SP Dec, Diabetes E11.9 ; Diabetic ne uropathy E11.40 ; Degenerative disc SP lumbar M51.36 ; Hyperlipidemia E78.5 ; Insomnia G47.00 ; CAD (coronary artery disease) I25.10 ; Major depressive disorder, recurrent, moderate F33.1 ; Post- traumatic stress disorder F43.10 and Other irritable bowel syndrome K58.8 [place] [address] [phone] SP November, Diabetic neuropathy E11.40 a nd Hyperlipidemia E78.5 SP [place] [address] [phone] SP November, Degenerative disc disease, l umbar M51.36 SP [place] [address] [phone] SP Oct, [place] [address] [phone] SP Oct, Degenerative disc disease, l umbar M51.36 [place] [address] [phone] SP Sep, Degenerative disc disease, l umbar M51.36 and HTN (hypertension) SP [place] [address] [phone] SP Sep, Diabetic neuropathy E11.40 ; HTN (hypertension) I10 ; SP disc disease, lumbar M51.36 ; Hyperlipidemia E78.5 ; Insomnia G47.00 ; CAD (coronary artery disease) I25.10 and Diabetes E11.9 [place] [address] [phone] SP Aug, [place] [address] [phone] SP Aug, Type 2 diabetes mellitus wit h hyperglycemia E11.65 SP [place] [address] [phone] SP Aug, [place] [address] [phone] SP Jul, SP [facility] [address] [facility] [id number] [address] [place] [phone] SP Jul, SP [facility] [address] [facility] [id number] [address] [place] [phone] SP Jun, SP [facility] [address] [facility] [id number] [address] [place] [phone] SP Jun, SP [facility] [address] [facility] [id number] [address] [place] [phone] SP Jun, SP [facility] [address] [facility] [id number] [address] [place] [phone] SP Jun, SP [facility] [address] [facility] [id number] [address] [place] [phone] SP May, Major depressive disorder, r ecurrent episode, moderate F33.1 and SPtraumatic stress disorder F43.10 [facility] [address] [facility] [id number] [address] [place] [phone] SP May, Major depressive disorder, r ecurrent episode, moderate F33.1 and SPtraumatic stress disorder F43.10 [facility] [address] [facility] [id number] [address] [place] [phone] SP May, Diabetes E11.9 ; Diabetic ne uropathy E11.40 ; HTN (hypertension) SP ; Gastritis K29.70 ; Hyperlipidemia E78.5 ; Insomnia G47.00 and Major depressive disorder, recurrent, moderate F33.1 [facility] [address] [facility] [id number] [address] [place] [phone] SP May, Major depressive disorder, r ecurrent episode, moderate F33.1 SP [facility] [address] [facility] [id number] [address] [place] [phone] SP Apr, SP [facility] [address] [facility] [id number] [address] [place] [phone] SP Apr, Major depressive disorder, r ecurrent episode, moderate F33.1 and SPtraumatic stress disorder F43.10 [place] [address] [address] [place] [id number] [address] [place] [phone] SP Apr, Diabetes E11.9 ; Diabetic ne uropathy E11.40 ; Degenerative disc SP lumbar M51.36 ; HTN (hypertension) I10 ; Hyperlipidemia E78.5 ; Chronic pain G89.29 ; CAD (coronary artery disease) I25.10 and Major depressive disorder, recurrent, moderate F33.1 [place] [address] [address] [place] [id number] [place] [phone] SP Apr, Major depressive disorder, r ecurrent episode, moderate F33.1 and SPtraumatic stress disorder F43.10 [place] [address] [address] [place] [id number] [place] [phone] SP Apr, Major depressive disorder, r ecurrent episode, moderate F33.1 and SPtraumatic stress disorder F43.10 [place] [address] [phone] SP Apr, Major depressive disorder, r ecurrent episode, moderate F33.1 and SP episodic mood disorder F39 [place] [address] [address] [place] [id number] [place] [phone] SP Apr, Chronic pain G89.29 ; Diabet ic neuropathy E11.40 ; HTN SP I10 ; Insomnia G47.00 ; CAD (coronary artery disease) I25.10 ; Hyperlipidemia E78.5 ; Degenerative disc disease, lumbar M51.36 ; Diabetes E11.9 and Gastritis K29.70 [place] [address] [address] [facility] [id number] [address] [place] [phone] SP Sep, SP [place] [address] [place] [id number] [place] [phone] SP Aug, SP [place] [address] [place] [id number] [place] [phone] SP Jul, Major depressive disorder, r ecurrent episode, moderate F33.1 SP [place] [address] [facility] [id number] [address] [place] [phone] SP Jul, Unspecified episodic mood di sorder F39 SP [facility] [address] [facility] [id number] [address] [place] [phone] SP Jul, SP [facility] [address] [facility] [id number] [place] [phone] SP Jul, SP [facility] [address] [place] [id number] [place] [phone] SP Jul, SP [facility] [address] [place] [id number] [place] [phone] SP Jul, Type 2 diabetes mellitus wit h hyperglycemia E11.65 ; Diabetic SP E11.40 ; Degenerative disc disease, lumbar M51.36 ; HTN (hypertension) I10 ; Gastritis K29.70 ; Hyperlipidemia E78.5 and CAD (coronary artery disease) I25.10 [place] [address] [id number] SP Jul, Severe episode of recurrent major depressive disorder, without SP features F33.2 [place] [address] [id number] SP Jul, SP [facility] [id number] [place] [phone] SP Jun, SP [facility] [address] [id number] SP Jun, Diabetes E11.9 ; Diabetic ne uropathy E11.40 ; Degenerative disc SP lumbar M51.36 ; HTN (hypertension) I10 ; Gastritis K29.70 ; Hyperlipidemia E78.5 ; Unspecified episodic mood disorder F39 ; Depression F32.9 and CAD (coronary artery disease) I25.10 [facility] [address] [facility] [id number] [address] [place] [id number] SP Jun, SP [facility] [id number] [place] [id number] SP Jun, SP [facility] [address] [facility] [id number] [address] [place] [id number] SP Jun, Diabetes E11.9 ; Diabetic ne uropathy E11.40 ; Degenerative disc SP lumbar M51.36 ; HTN (hypertension) I10 ; Gastritis K29.70 ; Chronic pain G89.29 ; Insomnia G47.00 and Unspecified episodic mood disorder F39 [facility] [id number] [place] [id number] SP May, Diabetic neuropathy E11.40 ; Degenerative disc disease, lumbar SP ; HTN (hypertension) I10 ; Gastritis K29.70 ; Hyperlipidemia E78.5 ; Chronic pain G89.29 ; Insomnia G47.00 ; Unspecified episodic mood disorder F39 ; Diabetes E11.9 ; CAD (coronary artery disease) I25.10 and H/O Gram positive sepsis Z86.19 [place] [id number] [place] [phone] SP May, SP [facility] [address] [id number] [address] [place] [phone] SP May, SP [facility] [address] [phone] SP May, SP [facility] [address] [id number] [address] [place] [phone] SP May, SP [facility] [address] [id number] [address] [place] [phone] SP May, Diabetes E11.9 ; Chronic cachorro n G89.29 ; UTI (urinary tract SP N39.0 ; Hyperlipidemia E78.5 and Diabetic neuropathy E11.40 [facility] [address] [id number] [address] [place] [phone] SP May, Insomnia, unspecified G47.00 and Chronic pain G89.29 SP [facility] [address] [id number] [address] [place] [phone] SP May, SP [place] [id number] [facility] [id number] [address] [place] [phone] SP May, SP [facility] [id number] [place] [phone] SP May, SP [facility] [id number] [place] [phone] SP Apr, Insomnia, unspecified G47.00 ; Chronic pain G89.29 and SP episodic mood disorder F39 [facility] [id number] [place] [phone] SP Apr, Unspecified episodic mood di sorder F39 SP [facility] [address] [facility] [id number] [place] [phone] SP Apr, Major depression F32.9 [address] [place] [address] [id number] SP Apr, SP [facility] [address] [id number] SP Apr, Diabetes E11.9 ; Diabetic ne uropathy E11.40 ; Degenerative disc SP lumbar M51.36 ; HTN (hypertension) I10 ; Gastritis K29.70 ; Hyperlipidemia E78.5 ; Chronic pain G89.29 and Insomnia G47.00 [facility] [address] [id number] [address] [place] [phone] SP Mar, SP [facility] [address] [id number] [address] [place] [phone] SP Mar, SP [facility] [address] [id number] [address] [place] [phone] SP Mar, SP [facility] [address] [id number] [address] [place] [address] SP Mar, Diabetes mellitus 250.00 ; D iabetic neuropathy 250.60 ; CAD SP artery disease) 414.00 ; Degenerative disc disease, lumbar 722.52 ; Gastritis 535.50 and Insomnia 780.52 [facility] [address] [facility] [id number] [address] [place] [phone] SP Mar, Diabetes mellitus 250.00 ; D egenerative disc disease, lumbar SP ; Essential hypertension 401.9 ; Gastritis 535.50 and Chronic pain 338.29 [facility] [id number] [place] [phone] SP Feb, SP [facility] [id number] [place] [phone] SP Feb, SP [facility] [id number] [place] [address] SP Jan, SP [facility] [id number] [place] [address] SP Jan, Diabetes mellitus 250.00 ; D iabetic neuropathy 250.60 ; SP disc disease, lumbar 722.52 ; CAD (coronary artery disease) 414.00 ; Essential hypertension 401.9 ; Gastritis 535.50 ; Hyperlipidemia 272.4 and Distal end of ulna fracture, closed 813.43 [facility] [address] [phone] SP Dec, Wrist pain 719.43 and Diabet es mellitus 250.00 SP [facility] [id number] [place] [phone] SP May, SP [facility] [id number] [place] [phone] SP Dec, SP [facility] [address] [id number] [address] [place] [phone] SP November, SP [facility] [id number] [place] [phone] SP Oct, SP [facility] [id number] [place] [phone] SP Sep, SP [facility] [address] [id number] SP 11 Sep, 2009 SP [facility] [address] [id number] [address] [place] [address], [place] [address] SP Jun, SP [facility] [address] [id number] [address] [place] [phone] SP Jun, SP [facility] [address] [id number] [address] [place] [phone] SP 14 Jun, 2009 SP [facility] [address] [id number] [address] [place] [phone] SP Jun, SP [facility] [address] [id number] [address] [place] [address], [place] [address] SP Jun, SP [facility] [address] [facility] [id number] [address] [place] [phone] SP Jun, SP [facility] [address] [id number] [address] [place] [phone] SP Jun, SP [facility] [address] [id number] [address] [place] [address], [place] [address] SP May, SP [facility] [address] [id number] [address] [place] [phone] SP May, SP [facility] [address] [id number] [address] [place] [phone] SP May, SP [facility] [address] [id number] [address] [place] [phone] SP May, SP [facility] [address] [id number] [address] [place] [address], [place] [address] SP Apr, SP [facility] [address] [id number] [address] [place] [phone] SP Apr, SP [facility] [address] [id number] [address] [place] [phone] SP 12 Apr, 2009 SP [facility] [address] [facility] [id number] [address] [place] [address] SP Mar, SP [facility] [address] [facility] [id number] [address] [place] [address] SP Dec, SP IMMUNIZATIONS No Known Immunizations SOCIAL HISTORY Never Assessed REASON FOR VISIT new med PLAN OF CARE VITAL SIGNS MEDICATIONS Medication Instructions Dosage Frequency Start Date End Date Duration S tatus POS Promethazine HCl 25 MG Orally every 6 hours prn 1 tablet as needed Dec, SP Active SP RESULTS No Results PROCEDURES No [...]
--- OUTSIDE RECORDS SUMMARY | 2019-06-14 01:40 | XMS REPORT ---
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 Name Role Phone POS RISSAKARTIKFLAQUITOY Unavailable SP PROBLEMS Type Condition ICD9-CM Code UPH90-QZ Code Onset Dates Condition S tatus SNOMED POS Problem Type 2 diabetes mellitus with hyperglycemia E11.65 Active POS Problem Major depressive disorder, recurrent episode, moderate F33.1 Active SP Problem Obsessive-compulsive disorder, unspecified type F4 2.9 Active SP Problem Ataxia R27.0 Active [id number] SP Problem Falls frequently R29.6 Active 279 961202 SP Problem Type 2 diabetes mellitus with other diab etic neurological complication SP E11.49 Active 10808870 SP 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 Active 477299902 SP Problem History of pulmonary embolism Z86.711 Active 163981762 SP Problem Type 2 diabetes mellitus with other diabetic kid allen complication SP Active 35674388 SP Problem Insomnia G47.00 Active 942063267 SP Problem Degenerative disc disease, lumbar M51.36 Active 53298110 SP Problem HTN (hypertension) I10 Active 3 1825370 SP Problem Hyperlipidemia E78.5 Active 31749 004 SP Problem CAD (coronary artery disease) I25.10 Active 59393657 SP Problem Chronic pain G89.29 Active 9539012 1 SP Problem Post-traumatic stress disorder F43.10 Active 71321143 SP ALLERGIES No Information ENCOUNTERS Encounter Location Date Diagnosis POS [facility] [address] [facility] [id number] [address] [place] [address] SP Mar, SP [facility] [address] [facility] [id number] [address] [place] [address] SP Feb, Type 2 diabetes mellitus wit h other diabetic neurological SP E11.49 ; 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.29 ; Degenerative disc disease, lumbar M51.36 and Chronic pain G89.29 [facility] [address] [id number] [address] [place] [address] SP Jan, SP [facility] [address] [id number] [address] [place] [address] SP Jan, SP [facility] [address] [facility] [id number] [address] [place] [address] SP Jan, SP [facility] [address] [facility] [id number] [address] [place] [address] SP Jan, SP [facility] [address] [facility] [id number] [address] [place] [address] SP Jan, SP [facility] [address] [facility] [id number] [address] [place] [address] SP Jan, SP [facility] [address] [facility] [id number] [address] [place] [address] SP Jan, Slurred speech R47.81 ; Atax ia R27.0 and Left arm weakness SP [facility] [address] [facility] [id number] [address] [place] [address] SP Jan, SP [facility] [address] [facility] [id number] [address] [place] [address] SP Jan, Type 2 diabetes mellitus wit h hyperglycemia E11.65 and SP vomiting with nausea, unspecified vomiting type R11.2 [facility] [address] [facility] [id number] [address] [place] [address] SP Dec, CAD (coronary artery disease ) I25.10 and Atypical chest pain SP [facility] [address] [facility] [id number] [address] [place] [address] SP Dec, SP [facility] [address] [facility] [id number] [address] [place] [address] SP Dec, Diabetes E11.9 ; Type 2 diab etes mellitus with hyperglycemia SP and Intractable vomiting with nausea, unspecified vomiting type R11.2 [facility] [address] [facility] [id number] [address] [place] [address] SP Dec, Chronic pain G89.29 SP [facility] [address] [facility] [id number] [address] [place] [address] SP November, SP [facility] [address] [facility] [id number] [address] [place] [address] SP November, Diabetes E11.9 ; CAD ([place]in[place] ry artery disease) I25.10 ; Atypical SP pain R07.89 ; Type 2 diabetes mellitus with hyperglycemia E11.65 ; 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.29 ; 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 and Chronic pain G89.29 [facility] [address] [facility] [id number] [address] [place] [address] SP Oct, SP [facility] [address] [facility] [id number] [address] [place] [address] SP Oct, Chronic pain G89.29 SP [facility] [address] [facility] [id number] [address] [place] [address] SP Sep, Diabetes E11.9 SP [facility] [address] [facility] [id number] [address] [place] [address] SP Sep, Chronic pain G89.29 [facility] [address] [facility] [facility] [id number] [address] [place] [address] SP Sep, SP [facility] [address] [facility] [id number] [address] [place] [address] SP Sep, Falls frequently R29.6 ; Elier g term 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.4 SP Type 2 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 E11.49 [facility] [address] [facility] [id number] [address] [place] [address] SP Sep, SP [facility] [address] [facility] [id number] [address] [place] [address] SP Sep, Diabetes E11.9 SP [facility] [address] [facility] [id number] [address] [place] [address] SP Aug, SP [facility] [address] [facility] [facility] [id number] [address] [place] [address] SP Aug, Chronic pain G89.29 SP [facility] [address] [facility] [id number] [address] [place] [address] SP Aug, SP [facility] [address] [facility] [id number] [address] [place] [address] SP Aug, Chronic pain G89.29 SP [facility] [address] [facility] [id number] [address] [place] [address] SP Jul, SP [facility] [address] [facility] [id number] [address] [place] [address] SP Jul, Diabetes E11.9 and Type 2 di abetes mellitus with other diabetic SP complication E11.29 [facility] [address] [facility] [id number] [address] [place] [address] SP Jul, Type 2 diabetes mellitus wit h other diabetic kidney complication SP [facility] [address] [facility] [id number] [address] [place] [address] SP Jul, SP [facility] [address] [facility] [id number] [address] [place] [address] SP Jul, Chronic pain G89.29 SP [facility] [address] [facility] [facility] [id number] [address] [place] [address] SP Jun, Diabetes E11.9 SP [facility] [address] [facility] [facility] [id number] [address] [place] [address] SP Jun, Chronic pain G89.29 SP [facility] [address] [facility] [facility] [id number] [address] [place] [address] SP Jun, Diabetes E11.9 ; Atypical ch est pain R07.89 ; care home current SP of insulin Z79.4 ; 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.29 ; Type 2 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 E11.49 ; History of pulmonary embolism Z86.711 and History of CVA (cerebrovascular accident) Z86.73 [facility] [address] [facility] [id number] [address] [place] [address] SP May, SP [facility] [address] [facility] [id number] [address] [place] [address] SP May, Chronic pain G89.29 SP [facility] [address] [facility] [facility] [id number] [address] [place] [address] SP Apr, Chronic pain G89.29 SP [facility] [address] [facility] [id number] [address] [place] [address] SP Apr, SP [place] [address] [facility] [id number] [address] [place] [address] SP Mar, Chronic pain G89.29 SP [facility] [address] [facility] [id number] [address] [place] [address] SP Mar, Diabetes E11.9 SP [place] [address] [facility] [id number] [address] [place] [address] SP Mar, SP [facility] [address] [facility] [id number] [address] [place] [address] SP Mar, Degenerative disc disease, l umbar M51.36 SP [place] [address] [facility] [id number] [address] [place] [address] SP Feb, Diabetes E11.9 SP [facility] [address] [facility] [id number] [address] [place] [address] SP Feb, Diabetes E11.9 SP [place] [address] [facility] [id number] [address] [place] [address] SP Feb, Diabetes E11.9 ; HTN (hypert ension) I10 ; Diabetic neuropathy SP and Leg cramps R25.2 [place] [address] [facility] [id number] [address] [place] [address] SP 15 Feb, 2017 Sprain of calcaneofibular li gament of right ankle, subsequent SP S93.411D ; Major depressive disorder, recurrent episode, moderate F33.1 ; Diabetes E11.9 ; Hyperlipidemia E78.5 ; Post-traumatic stress disorder F43.10 and Other irritable bowel syndrome K58.8 [facility] [address] [id number] [address] [place] [address] SP Feb, Major depressive disorder, r ecurrent episode, moderate F33.1 ; SPtraumatic stress disorder F43.10 and Obsessive-compulsive disorder, unspecified type F42.9 [facility] [address] [facility] [id number] [address] [place] [address] SP Feb, SP [facility] [address] [facility] [id number] [address] [place] [address] SP Feb, Post-traumatic stress disord er F43.10 and Major depressive SP recurrent, moderate F33.1 [facility] [address] [id number] [address] [place] [address] SP Feb, Diabetes E11.9 SP [facility] [address] [facility] [id number] [address] [place] [address] SP Feb, Degenerative disc disease, l umbar M51.36 SP [facility] [address] [facility] [id number] [address] [place] [address] SP Feb, Post-traumatic stress disord er F43.10 and Major depressive SP recurrent, moderate F33.1 [facility] [address] [id number] [address] [place] [address] SP Feb, SP [facility] [address] [facility] [id number] [address] [place] [address] SP Feb, Diabetes E11.9 SP [facility] [address] [facility] [id number] [address] [place] [address] SP Jan, Diabetes E11.9 SP [facility] [address] [id number] [address] [place] [address] SP Jan, Post-traumatic stress disord er F43.10 and Major depressive SP recurrent, moderate F33.1 [facility] [address] [id number] [address] [place] [address] SP Jan, Diabetes E11.9 SP [facility] [address] [id number] [address] [place] [address] SP Jan, Diabetes E11.9 SP [facility] [address] [id number] [address] [place] [address] SP Jan, SP [facility] [address] [id number] [address] [place] [address] SP Jan, SP [facility] [address] [id number] [address] [place] [address] SP Jan, Post-traumatic stress disord er F43.10 and Major depressive SP recurrent, moderate F33.1 [facility] [address] [id number] [address] [place] [address] SP Jan, SP [facility] [address] [id number] [address] [place] [address] SP Jan, Major depressive disorder, r ecurrent episode, moderate F33.1 ; SPtraumatic stress disorder F43.10 and Obsessive-compulsive disorder, unspecified type F42.9 [facility] [address] [id number] [address] [place] [address] SP Jan, SP [facility] [address] [id number] [address] [place] [address] SP Jan, Diabetes E11.9 SP [facility] [address] [id number] [address] [place] [address] SP Jan, SP [facility] [address] [facility] [id number] [address] [place] [address] SP Jan, Sprain of calcaneofibular li gament of right ankle, subsequent SP S93.411D [facility] [address] [id number] [address] [place] [address] SP 13 Jan, 2017 Post-traumatic stress disord er F43.10 and Major depressive SP recurrent, moderate F33.1 [facility] [address] [id number] [address] [place] [address] SP Jan, Diabetes E11.9 SP [facility] [address] [id number] [address] [place] [address] SP 16 Dec, 2016 Major depressive disorder, r ecurrent episode, moderate F33.1 ; SPtraumatic stress disorder F43.10 and Obsessive-compulsive disorder, unspecified type F42.9 [facility] [address] [id number] [address] [place] [address] SP 15 Dec, 2016 SP [facility] [address] [id number] [address] [place] [address] SP 14 Dec, 2016 Sprain of calcaneofibular li gament of right ankle, subsequent SP S93.411D [facility] [address] [id number] [address] [place] [address] SP Dec, Post-traumatic stress disord er F43.10 and Major depressive SP recurrent, moderate F33.1 [facility] [address] [id number] [address] [place] [address] SP Dec, Sprain of calcaneofibular li gament of right ankle, subsequent SP S93.411D [facility] [address] [id number] [address] [place] [address] SP 12 Dec, 2016 Hyperlipidemia E78.5 SP [facility] [address] [id number] [address] [place] [address] SP Dec, SP [facility] [address] [id number] [address] [place] [address] SP Dec, Diabetes E11.9 ; Diabetic ne uropathy E11.40 ; Degenerative disc SP lumbar M51.36 ; Hyperlipidemia E78.5 ; Insomnia G47.00 ; CAD (coronary artery disease) I25.10 ; Major depressive disorder, recurrent, moderate F33.1 ; Post- traumatic stress disorder F43.10 and Other irritable bowel syndrome K58.8 [place] [address] [address] SP November, Diabetic neuropathy E11.40 a nd Hyperlipidemia E78.5 SP [place] [address] [address] SP November, Degenerative disc disease, l umbar M51.36 SP [place] [address] [address] SP Oct, [place] [address] [address] SP Oct, Degenerative disc disease, l umbar M51.36 [place] [address] [address] SP Sep, Degenerative disc disease, l umbar M51.36 and HTN (hypertension) SP [place] [address] [address] SP Sep, Diabetic neuropathy E11.40 ; HTN (hypertension) I10 ; SP disc disease, lumbar M51.36 ; Hyperlipidemia E78.5 ; Insomnia G47.00 ; CAD (coronary artery disease) I25.10 and Diabetes E11.9 [place] [address] [address] SP Aug, [place] [address] [address] SP Aug, Type 2 diabetes mellitus wit h hyperglycemia E11.65 SP [place] [address] [address] SP Aug, [place] [address] [address] SP Jul, SP [facility] [address] [facility] [id number] [address] [place] [address] SP Jul, SP [facility] [address] [facility] [id number] [address] [place] [address] SP Jun, SP [facility] [address] [facility] [id number] [address] [place] [address] SP Jun, SP [facility] [address] [facility] [id number] [address] [place] [address] SP Jun, SP [facility] [address] [facility] [id number] [address] [place] [address] SP Jun, SP [facility] [address] [facility] [id number] [address] [place] [address] SP May, Major depressive disorder, r ecurrent episode, moderate F33.1 and SPtraumatic stress disorder F43.10 [facility] [address] [facility] [id number] [address] [place] [address] SP May, Major depressive disorder, r ecurrent episode, moderate F33.1 and SPtraumatic stress disorder F43.10 [facility] [address] [facility] [id number] [address] [place] [address] SP May, Diabetes E11.9 ; Diabetic ne uropathy E11.40 ; HTN (hypertension) SP ; Gastritis K29.70 ; Hyperlipidemia E78.5 ; Insomnia G47.00 and Major depressive disorder, recurrent, moderate F33.1 [facility] [address] [facility] [id number] [address] [place] [address] SP May, Major depressive disorder, r ecurrent episode, moderate F33.1 SP [facility] [address] [facility] [id number] [address] [place] [address] SP Apr, SP [facility] [address] [facility] [id number] [address] [place] [address] SP Apr, Major depressive disorder, r ecurrent episode, moderate F33.1 and SPtraumatic stress disorder F43.10 [place] [address] [place] [id number] [address] [place] [address] SP Apr, Diabetes E11.9 ; Diabetic ne uropathy E11.40 ; Degenerative disc SP lumbar M51.36 ; HTN (hypertension) I10 ; Hyperlipidemia E78.5 ; Chronic pain G89.29 ; CAD (coronary artery disease) I25.10 and Major depressive disorder, recurrent, moderate F33.1 [place] [address] [place] [id number] [place] [address] SP Apr, Major depressive disorder, r ecurrent episode, moderate F33.1 and SPtraumatic stress disorder F43.10 [place] [address] [place] [id number] [place] [address] SP Apr, Major depressive disorder, r ecurrent episode, moderate F33.1 and SPtraumatic stress disorder F43.10 [place] [address] [address] SP Apr, Major depressive disorder, r ecurrent episode, moderate F33.1 and SP episodic mood disorder F39 [place] [address] [place] [id number] [place] [address] SP Apr, Chronic pain G89.29 ; Diabet ic neuropathy E11.40 ; HTN SP I10 ; Insomnia G47.00 ; CAD (coronary artery disease) I25.10 ; Hyperlipidemia E78.5 ; Degenerative disc disease, lumbar M51.36 ; Diabetes E11.9 and Gastritis K29.70 [place] [address] [facility] [id number] [address] [place] [address] SP Sep, SP [place] [address] [place] [id number] [place] [address] SP Aug, SP [place] [address] [place] [id number] [place] [address] SP Jul, Major depressive disorder, r ecurrent episode, moderate F33.1 SP [place] [address] [facility] [id number] [address] [place] [address] SP Jul, Unspecified episodic mood di sorder F39 SP [facility] [address] [facility] [id number] [address] [place] [address] SP Jul, SP [facility] [address] [facility] [id number] [place] [address] SP Jul, SP [facility] [address] [place] [id number] [place] [address] SP Jul, SP [facility] [address] [place] [id number] [place] [address] SP Jul, Type 2 diabetes mellitus wit h hyperglycemia E11.65 ; Diabetic SP E11.40 ; Degenerative disc disease, lumbar M51.36 ; HTN (hypertension) I10 ; Gastritis K29.70 ; Hyperlipidemia E78.5 and CAD (coronary artery disease) I25.10 [place] [address] [address] SP Jul, Severe episode of recurrent major depressive disorder, without SP features F33.2 [place] [address] [address] SP Jul, SP [facility] [address] [place] [id number] [place] [address] SP Jun, SP [facility] [address] [address] SP Jun, Diabetes E11.9 ; Diabetic ne uropathy E11.40 ; Degenerative disc SP lumbar M51.36 ; HTN (hypertension) I10 ; Gastritis K29.70 ; Hyperlipidemia E78.5 ; Unspecified episodic mood disorder F39 ; Depression F32.9 and CAD (coronary artery disease) I25.10 [facility] [address] [facility] [id number] [address] [place] [address] SP Jun, SP [facility] [address] [place] [id number] [place] [address] SP Jun, SP [facility] [address] [place] [id number] [address] [place] [address] SP Jun, Diabetes E11.9 ; Diabetic ne uropathy E11.40 ; Degenerative disc SP lumbar M51.36 ; HTN (hypertension) I10 ; Gastritis K29.70 ; Chronic pain G89.29 ; Insomnia G47.00 and Unspecified episodic mood disorder F39 [facility] [address] [place] [id number] [address] [place] [address] SP May, Diabetic neuropathy E11.40 ; Degenerative disc disease, lumbar SP ; HTN (hypertension) I10 ; Gastritis K29.70 ; Hyperlipidemia E78.5 ; Chronic pain G89.29 ; Insomnia G47.00 ; Unspecified episodic mood disorder F39 ; Diabetes E11.9 ; CAD (coronary artery disease) I25.10 and H/O Gram positive sepsis Z86.19 [place] [address] [place] [id number] [address] [place] [address] SP May, SP [facility] [address] [place] [id number] [address] [place] [address] SP May, SP [place] [address] [address] SP May, SP [facility] [address] [place] [id number] [address] [place] [address] SP May, SP [facility] [address] [place] [id number] [address] [place] [address] SP May, UTI (urinary tract infection ) N39.0 ; Diabetes E11.9 ; Diabetic SP E11.40 ; Hyperlipidemia E78.5 and Chronic pain G89.29 [place] [address] [place] [id number] [address] [place] [address] SP May, Insomnia, unspecified G47.00 and Chronic pain G89.29 [facility] [place] [id number] [place] [id number] [address] [place] [address] SP May, SP [place] [id number] [facility] [id number] [address] [place] [address] SP May, SP [facility] [address] [place] [id number] [place] [address] SP May, SP [facility] [address] [place] [id number] [place] [address] SP Apr, Insomnia, unspecified G47.00 ; Chronic pain G89.29 and SP episodic mood disorder F39 [facility] [address] [place] [id number] [place] [address] SP Apr, Unspecified episodic mood di sorder F39 SP [facility] [address] [facility] [id number] [place] [address] SP Apr, Major depression F32.9 SP [place] [address] [address] SP Apr, SP [facility] [address] [address] SP Apr, Diabetes E11.9 ; Diabetic ne uropathy E11.40 ; Degenerative disc SP lumbar M51.36 ; HTN (hypertension) I10 ; Gastritis K29.70 ; Hyperlipidemia E78.5 ; Chronic pain G89.29 and Insomnia G47.00 [facility] [address] [place] [id number] [address] [place] [id number] SP Mar, SP [facility] [id number] [place] [id number] SP Mar, SP [facility] [id number] [place] [id number] SP Mar, SP [facility] [id number] [place] [id number] SP Mar, Diabetes mellitus 250.00 ; D iabetic neuropathy 250.60 ; CAD SP artery disease) 414.00 ; Degenerative disc disease, lumbar 722.52 ; Gastritis 535.50 and Insomnia 780.52 [facility] [address] [facility] [id number] [address] [place] [id number] SP Mar, Diabetes mellitus 250.00 ; D egenerative disc disease, lumbar SP ; Essential hypertension 401.9 ; Gastritis 535.50 and Chronic pain 338.29 [facility] [id number] [place] [id number] SP Feb, SP [facility] [id number] [place] [id number] SP Feb, SP [facility] [id number] [place] [id number] SP Jan, SP [facility] [id number] [place] [id number] SP Jan, Diabetes mellitus 250.00 ; D iabetic neuropathy 250.60 ; SP disc disease, lumbar 722.52 ; CAD (coronary artery disease) 414.00 ; Essential hypertension 401.9 ; Gastritis 535.50 ; Hyperlipidemia 272.4 and Distal end of ulna fracture, closed 813.43 [facility] [address] [id number] SP Dec, Wrist pain 719.43 and Diabet es mellitus 250.00 SP [facility] [id number] [place] [id number] SP May, SP [facility] [id number] [place] [id number] SP Dec, SP [facility] [id number] [place] [phone] SP November, SP [facility] [id number] [place] [id number] SP Oct, SP [facility] [id number] [place] [id number] SP Sep, SP [facility] [address] [id number] SP 11 Sep, 2009 SP [facility] [address] [id number] [place] [address], [place] [address] SP Jun, SP [facility] [address] [id number] [address] [place] [id number] SP Jun, SP [facility] [address] [id number] [address] [place] [id number] SP 14 Jun, 2009 SP [facility] [address] [id number] [address] [place] [phone] SP Jun, SP [facility] [address] [id number] [address] [place] [address], [place] [address] SP Jun, SP [facility] [address] [facility] [id number] [address] [place] [id number] SP Jun, SP [facility] [address] [id number] [address] [place] [phone] SP Jun, SP [facility] [address] [id number] [address] [place] [address], [place] [address] SP May, SP [facility] [address] [id number] [address] [place] [phone] SP May, SP [facility] [address] [id number] [address] [place] [id number] SP May, SP [facility] [address] [id number] [address] [place] [id number] SP May, SP [facility] [address] [id number] [address] [place] [address], [place] [address] SP Apr, SP [facility] [address] [id number] [address] [place] [phone] SP Apr, SP [facility] [address] [id number] [address] [place] [id number] SP 12 Apr, 2009 SP [facility] [address] [facility] [id number] [address] [place] [address] SP Mar, SP [facility] [address] [facility] [id number] [address] [address] SP Dec, SP IMMUNIZATIONS No Known Immunizations [...]
--- OUTSIDE RECORDS SUMMARY | 2019-06-14 01:40 | XMS REPORT ---
Author Author JALEN PEREZ POS Organization [facility] SP Address [address] [place] [address] SP Care Team Providers Care Resource Recovery Specialist Name Role Phone POS ANA JALEN Unavailable SP PROBLEMS Type Condition ICD9-CM Code JQL70-LS Code Onset Dates Condition S tatus SNOMED POS Problem Type 2 diabetes mellitus with hyperglycemia E11.65 Active POS Problem Major depressive disorder, recurrent episode, moderate F33.1 Active SP Problem Obsessive-compulsive disorder, unspecified type F4 2.9 Active SP Problem Ataxia R27.0 Active 52652057 SP Problem Falls frequently R29.6 Active [id number] 634531 SP Problem Type 2 diabetes mellitus with other diab etic neurological complication SP E11.49 Active 78107622 SP Problem manager 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.4 Active 713725543 SP Problem History of pulmonary embolism Z86.711 Active 704189277 SP Problem Type 2 diabetes mellitus with other diabetic kid allen complication SP Active 14862033 SP Problem Insomnia G47.00 Active 384575356 SP Problem Degenerative disc disease, lumbar M51.36 Active 89183737 SP Problem HTN (hypertension) I10 Active 3 0092690 SP Problem Hyperlipidemia E78.5 Active 09642 004 SP Problem CAD (coronary artery disease) I25.10 Active 20672727 SP Problem Chronic pain G89.29 Active 5427373 1 SP Problem Post-traumatic stress disorder F43.10 Active 90888483 SP ALLERGIES Substance Reaction Event Type Date Status POS Viibryd N/V Drug Allergy November, Active SP Seroquel N/V and "couldn't do anything." Drug Allergy November, 018 Active SP Penicillin V Potassium Unknown Drug Allergy November, Activ e SP Lexapro N/V, inc. suicidality Drug Allergy November, Active SP Ibuprofen Unknown Drug Allergy November, Active SP Depakote inc. suicidality Drug Allergy November, Active SP ENCOUNTERS Encounter Location Date Diagnosis POS [facility] [address] [facility] [id number] [address] [place] [phone] SP Mar, SP [facility] [address] [facility] [id number] [address] [place] [phone] SP Feb, Type 2 diabetes mellitus wit h other diabetic neurological SP E11.49 ; 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.29 ; Degenerative disc disease, lumbar M51.36 and Chronic pain G89.29 [facility] [address] [facility] [id number] [address] [place] [phone] SP Jan, SP [facility] [address] [facility] [id number] [place] [phone] SP Jan, SP [facility] [address] [facility] [id number] [address] [place] [phone] SP Jan, SP [facility] [address] [facility] [id number] [address] [place] [phone] SP Jan, SP [facility] [address] [facility] [id number] [address] [place] [phone] SP Jan, SP [facility] [address] [facility] [id number] [address] [place] [phone] SP Jan, SP [facility] [address] [facility] [id number] [address] [place] [phone] SP Jan, Slurred speech R47.81 ; Atax ia R27.0 and Left arm weakness SP [facility] [address] [facility] [id number] [address] [place] [phone] SP Jan, SP [facility] [address] [facility] [id number] [address] [place] [phone] SP Jan, Type 2 diabetes mellitus wit h hyperglycemia E11.65 and SP vomiting with nausea, unspecified vomiting type R11.2 [facility] [address] [facility] [id number] [address] [place] [phone] SP Dec, CAD (coronary artery disease ) I25.10 and Atypical chest pain SP [facility] [address] [facility] [id number] [address] [place] [phone] SP Dec, SP [facility] [address] [facility] [id number] [address] [place] [phone] SP Dec, Diabetes E11.9 ; Type 2 diab etes mellitus with hyperglycemia SP and Intractable vomiting with nausea, unspecified vomiting type R11.2 [facility] [address] [facility] [id number] [address] [place] [phone] SP Dec, Chronic pain G89.29 SP [facility] [address] [facility] [id number] [address] [place] [phone] SP November, SP [facility] [address] [facility] [id number] [place] [phone] SP November, Diabetes E11.9 ; CAD (trinidad ry artery disease) I25.10 ; Atypical SP pain R07.89 ; Type 2 diabetes mellitus with hyperglycemia E11.65 ; 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.29 ; manager 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.4 and Chronic pain G89.29 [facility] [address] [facility] [id number] [address] [place] [phone] SP Oct, SP [facility] [address] [facility] [id number] [address] [place] [phone] SP Oct, Chronic pain G89.29 SP [facility] [address] [facility] [id number] [address] [place] [phone] SP Sep, Diabetes E11.9 SP [facility] [address] [facility] [id number] [address] [place] [phone] SP Sep, Chronic pain G89.29 SP [facility] [address] [facility] [id number] [address] [place] [phone] SP Sep, SP [facility] [address] [facility] [id number] [address] [place] [phone] SP Sep, Falls frequently R29.6 ; Elier g term 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.4 SP Type 2 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 E11.49 [facility] [address] [facility] [id number] [address] [place] [phone] SP Sep, SP [facility] [address] [facility] [id number] [address] [place] [phone] SP Sep, Diabetes E11.9 SP [facility] [address] [facility] [id number] [address] [place] [phone] SP Aug, SP [facility] [address] [facility] [id number] [address] [place] [phone] SP Aug, Chronic pain G89.29 SP [facility] [address] [facility] [id number] [address] [place] [phone] SP Aug, SP [facility] [address] [facility] [id number] [address] [place] [phone] SP Aug, Chronic pain G89.29 SP [facility] [address] [facility] [id number] [address] [place] [phone] SP Jul, SP [facility] [address] [facility] [id number] [address] [place] [phone] SP Jul, Diabetes E11.9 and Type 2 di abetes mellitus with other diabetic SP complication E11.29 [facility] [address] [facility] [id number] [address] [place] [phone] SP Jul, Type 2 diabetes mellitus wit h other diabetic kidney complication SP [facility] [address] [facility] [id number] [address] [place] [phone] SP Jul, SP [facility] [address] [facility] [id number] [address] [place] [phone] SP Jul, Chronic pain G89.29 SP [facility] [address] [facility] [id number] [address] [place] [phone] SP Jun, Diabetes E11.9 SP [facility] [address] [facility] [id number] [address] [place] [phone] SP Jun, Chronic pain G89.29 SP [facility] [address] [facility] [id number] [address] [place] [phone] SP Jun, Diabetes E11.9 ; Atypical ch est pain R07.89 ; nursing home current SP of insulin Z79.4 ; 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.29 ; Type 2 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 E11.49 ; History of pulmonary embolism Z86.711 and History of CVA (cerebrovascular accident) Z86.73 [facility] [address] [facility] [id number] [address] [place] [phone] SP May, SP [facility] [address] [facility] [id number] [address] [place] [phone] SP May, Chronic pain G89.29 SP [facility] [address] [facility] [id number] [address] [place] [phone] SP Apr, Chronic pain G89.29 SP [facility] [address] [facility] [id number] [address] [place] [phone] SP Apr, SP [facility] [address] [facility] [id number] [address] [place] [phone] SP Mar, Chronic pain G89.29 SP [facility] [address] [facility] [id number] [address] [place] [phone] SP Mar, Diabetes E11.9 SP [facility] [address] [facility] [id number] [address] [place] [phone] SP Mar, SP [facility] [address] [facility] [id number] [address] [place] [phone] SP Mar, Degenerative disc disease, l umbar M51.36 SP [facility] [address] [facility] [id number] [address] [place] [phone] SP Feb, Diabetes E11.9 SP [facility] [address] [facility] [id number] [address] [place] [phone] SP Feb, Diabetes E11.9 SP [facility] [address] [facility] [id number] [address] [place] [phone] SP 16 Feb, 2017 Diabetes E11.9 ; HTN (hypert ension) I10 ; Diabetic neuropathy SP and Leg cramps R25.2 [facility] [address] [facility] [id number] [address] [place] [phone] SP 15 Feb, 2017 Sprain of calcaneofibular li gament of right ankle, subsequent SP S93.411D ; Major depressive disorder, recurrent episode, moderate F33.1 ; Diabetes E11.9 ; Hyperlipidemia E78.5 ; Post-traumatic stress disorder F43.10 and Other irritable bowel syndrome K58.8 [facility] [address] [facility] [id number] [address] [place] [phone] SP 14 Feb, 2017 Major depressive disorder, r ecurrent episode, moderate F33.1 ; SPtraumatic stress disorder F43.10 and Obsessive-compulsive disorder, unspecified type F42.9 [facility] [address] [facility] [id number] [address] [place] [phone] SP Feb, SP [facility] [address] [facility] [id number] [address] [place] [phone] SP Feb, Post-traumatic stress disord er F43.10 and Major depressive SP recurrent, moderate F33.1 [facility] [address] [facility] [id number] [address] [place] [phone] SP Feb, Diabetes E11.9 SP [facility] [address] [facility] [id number] [address] [place] [phone] SP Feb, Degenerative disc disease, l umbar M51.36 SP [facility] [address] [facility] [id number] [address] [place] [phone] SP Feb, Post-traumatic stress disord er F43.10 and Major depressive SP recurrent, moderate F33.1 [facility] [address] [facility] [id number] [address] [place] [phone] SP Feb, SP [facility] [address] [id number] [address] [place] [phone] SP Feb, Diabetes E11.9 SP [facility] [address] [id number] [address] [place] [phone] SP Jan, Diabetes E11.9 SP [facility] [address] [id number] [address] [place] [phone] SP Jan, Post-traumatic stress disord er F43.10 and Major depressive SP recurrent, moderate F33.1 [facility] [address] [id number] [address] [place] [phone] SP Jan, Diabetes E11.9 SP [facility] [address] [id number] [address] [place] [phone] SP Jan, Diabetes E11.9 SP [facility] [address] [id number] [address] [place] [id number] SP Jan, SP [facility] [address] [id number] [address] [place] [phone] SP Jan, SP [facility] [address] [id number] [address] [place] [phone] SP Jan, Post-traumatic stress disord er F43.10 and Major depressive SP recurrent, moderate F33.1 [facility] [address] [id number] [address] [place] [phone] SP Jan, SP [facility] [address] [id number] [address] [place] [phone] SP Jan, Major depressive disorder, r ecurrent episode, moderate F33.1 ; SPtraumatic stress disorder F43.10 and Obsessive-compulsive disorder, unspecified type F42.9 [facility] [address] [id number] [address] [place] [phone] SP Jan, SP [facility] [address] [id number] [address] [place] [phone] SP Jan, Diabetes E11.9 SP [facility] [address] [id number] [address] [place] [phone] SP Jan, SP [facility] [address] [facility] [id number] [address] [place] [phone] SP Jan, Sprain of calcaneofibular li gament of right ankle, subsequent SP S93.411D [facility] [address] [id number] [address] [place] [id number] SP Jan, Post-traumatic stress disord er F43.10 and Major depressive SP recurrent, moderate F33.1 [place] [address] [id number] [address] [place] [phone] SP Jan, Diabetes E11.9 SP [place] [address] [facility] [id number] [address] [place] [phone] SP 16 Dec, 2016 Major depressive disorder, r ecurrent episode, moderate F33.1 ; SPtraumatic stress disorder F43.10 and Obsessive-compulsive disorder, unspecified type F42.9 [place] [address] [id number] [address] [place] [phone] SP 15 Dec, 2016 SP [place] [address] [id number] [address] [place] [phone] SP 14 Dec, 2016 Sprain of calcaneofibular li gament of right ankle, subsequent SP S93.411D [place] [address] [id number] [address] [place] [phone] SP Dec, Post-traumatic stress disord er F43.10 and Major depressive SP recurrent, moderate F33.1 [place] [address] [id number] [address] [place] [phone] SP 13 Dec, 2016 Sprain of calcaneofibular li gament of right ankle, subsequent SP S93.411D [place] [address] [facility] [id number] [address] [place] [phone] SP Dec, Hyperlipidemia E78.5 SP [place] [address] [facility] [id number] [address] [place] [phone] SP Dec, SP [place] [address] [facility] [id number] [address] [place] [phone] SP Dec, Diabetes E11.9 ; Diabetic ne uropathy E11.40 ; Degenerative disc SP lumbar M51.36 ; Hyperlipidemia E78.5 ; Insomnia G47.00 ; CAD (coronary artery disease) I25.10 ; Major depressive disorder, recurrent, moderate F33.1 ; Post- traumatic stress disorder F43.10 and Other irritable bowel syndrome K58.8 [place] [address] [facility] [id number] [address] [place] [phone] SP November, Diabetic neuropathy E11.40 a nd Hyperlipidemia E78.5 SP [place] [address] [facility] [id number] [address] [place] [phone] SP November, Degenerative disc disease, l umbar M51.36 SP [place] [address] [facility] [id number] [address] [place] [phone] SP Oct, [place] [address] [facility] [id number] [address] [place] [phone] SP Oct, Degenerative disc disease, l umbar M51.36 SP [place] [address] [facility] [id number] [address] [place] [phone] SP Sep, Degenerative disc disease, l umbar M51.36 and HTN (hypertension) SP [place] [address] [facility] [id number] [address] [place] [phone] SP Sep, Diabetic neuropathy E11.40 ; HTN (hypertension) I10 ; SP disc disease, lumbar M51.36 ; Hyperlipidemia E78.5 ; Insomnia G47.00 ; CAD (coronary artery disease) I25.10 and Diabetes E11.9 [place] [address] [facility] [id number] [address] [place] [phone] SP Aug, [place] [address] [facility] [id number] [address] [place] [phone] SP Aug, Type 2 diabetes mellitus wit h hyperglycemia E11.65 SP [facility] [address] [facility] [id number] [address] [place] [phone] SP Aug, SP [facility] [address] [facility] [id number] [address] [place] [phone] SP Jul, SP [facility] [address] [facility] [id number] [address] [place] [phone] SP Jul, SP [facility] [address] [facility] [id number] [address] [place] [phone] SP Jun, SP [facility] [address] [facility] [id number] [address] [place] [phone] SP Jun, SP [facility] [address] [facility] [id number] [address] [place] [phone] SP Jun, SP [facility] [address] [facility] [id number] [address] [place] [phone] SP Jun, SP [facility] [address] [facility] [id number] [address] [place] [phone] SP May, Major depressive disorder, r ecurrent episode, moderate F33.1 and SPtraumatic stress disorder F43.10 [place] [address] [facility] [id number] [address] [place] [phone] SP May, Major depressive disorder, r ecurrent episode, moderate F33.1 and SPtraumatic stress disorder F43.10 [facility] [address] [facility] [id number] [address] [place] [phone] SP May, Diabetes E11.9 ; Diabetic ne uropathy E11.40 ; HTN (hypertension) SP ; Gastritis K29.70 ; Hyperlipidemia E78.5 ; Insomnia G47.00 and Major depressive disorder, recurrent, moderate F33.1 [facility] [address] [facility] [id number] [address] [place] [phone] SP May, Major depressive disorder, r ecurrent episode, moderate F33.1 SP [place] [address] [facility] [id number] [address] [place] [phone] SP Apr, SP [facility] [address] [facility] [id number] [address] [place] [phone] SP Apr, Major depressive disorder, r ecurrent episode, moderate F33.1 and SPtraumatic stress disorder F43.10 [place] [address] [facility] [id number] [address] [place] [phone] SP Apr, Diabetes E11.9 ; Diabetic ne uropathy E11.40 ; Degenerative disc SP lumbar M51.36 ; HTN (hypertension) I10 ; Hyperlipidemia E78.5 ; Chronic pain G89.29 ; CAD (coronary artery disease) I25.10 and Major depressive disorder, recurrent, moderate F33.1 [place] [address] [phone] SP Apr, Major depressive disorder, r ecurrent episode, moderate F33.1 and SPtraumatic stress disorder F43.10 [place] [address] [phone] SP Apr, Major depressive disorder, r ecurrent episode, moderate F33.1 and SPtraumatic stress disorder F43.10 [place] [id number] [place] [phone] SP Apr, Major depressive disorder, r ecurrent episode, moderate F33.1 and SP episodic mood disorder F39 [place] [address] [facility] [id number] [address] [place] [phone] SP Apr, Chronic pain G89.29 ; Diabet ic neuropathy E11.40 ; HTN SP I10 ; Insomnia G47.00 ; CAD (coronary artery disease) I25.10 ; Hyperlipidemia E78.5 ; Degenerative disc disease, lumbar M51.36 ; Diabetes E11.9 and Gastritis K29.70 [place] [address] [place] [id number] [address] [place] [phone] SP Sep, SP [facility] [address] [facility] [id number] [address] [place] [phone] SP Aug, SP [facility] [address] [facility] [id number] [address] [place] [phone] SP Jul, Major depressive disorder, r ecurrent episode, moderate F33.1 SP [facility] [address] [place] [id number] [place] [phone] SP Jul, Unspecified episodic mood di sorder F39 SP [facility] [address] [facility] [id number] [address] [place] [phone] SP Jul, SP [facility] [address] [facility] [id number] [place] [phone] SP Jul, SP [place] [address] [place] [id number] [place] [phone] SP Jul, SP [facility] [address] [place] [id number] [address] [place] [phone] SP Jul, Type 2 diabetes mellitus wit h hyperglycemia E11.65 ; Diabetic SP E11.40 ; Degenerative disc disease, lumbar M51.36 ; HTN (hypertension) I10 ; Gastritis K29.70 ; Hyperlipidemia E78.5 and CAD (coronary artery disease) I25.10 [place] [address] [place] [id number] [address] [place] [phone] SP Jul, Severe episode of recurrent major depressive disorder, without SP features F33.2 [facility] [address] [facility] [id number] [address] [place] [phone] SP Jul, SP [facility] [address] [facility] [id number] [address] [place] [phone] SP Jun, SP [facility] [address] [facility] [id number] [address] [place] [phone] SP Jun, Diabetes E11.9 ; Diabetic ne uropathy E11.40 ; Degenerative disc SP lumbar M51.36 ; HTN (hypertension) I10 ; Gastritis K29.70 ; Hyperlipidemia E78.5 ; Unspecified episodic mood disorder F39 ; Depression F32.9 and CAD (coronary artery disease) I25.10 [facility] [address] [facility] [id number] [address] [place] [phone] SP Jun, SP [facility] [address] [place] [id number] [address] [place] [phone] SP Jun, SP [facility] [address] [place] [id number] [place] [phone] SP Jun, Diabetes E11.9 ; Diabetic ne uropathy E11.40 ; Degenerative disc SP lumbar M51.36 ; HTN (hypertension) I10 ; Gastritis K29.70 ; Chronic pain G89.29 ; Insomnia G47.00 and Unspecified episodic mood disorder F39 [place] [address] [place] [id number] [place] [phone] SP May, Diabetic neuropathy E11.40 ; Degenerative disc disease, lumbar SP ; HTN (hypertension) I10 ; Gastritis K29.70 ; Hyperlipidemia E78.5 ; Chronic pain G89.29 ; Insomnia G47.00 ; Unspecified episodic mood disorder F39 ; Diabetes E11.9 ; CAD (coronary artery disease) I25.10 and H/O Gram positive sepsis Z86.19 [facility] [address] [facility] [id number] [address] [place] [id number] SP May, SP [facility] [address] [facility] [id number] [address] [place] [id number] SP May, SP [facility] [address] [facility] [id number] [address] [place] [id number] SP May, SP [facility] [address] [facility] [id number] [address] [place] [id number] SP May, SP [facility] [address] N [facility] [id number] [address] [place] [id number] SP May, UTI (urinary tract infection ) N39.0 ; Diabetes E11.9 ; Diabetic SP E11.40 ; Hyperlipidemia E78.5 and Chronic pain G89.29 [facility] [address] [facility] [id number] [address] [place] [id number] SP May, Insomnia, unspecified G47.00 and Chronic pain G89.29 SP [facility] [address] [facility] [id number] [address] [place] [id number] SP May, SP [facility] [address] [facility] [id number] [address] [place] [phone] SP May, SP [facility] [address] [facility] [id number] [address] [place] [phone] SP May, SP [facility] [address] [facility] [id number] [place] [phone] SP Apr, Insomnia, unspecified G47.00 ; Chronic pain G89.29 and SP episodic mood disorder F39 [facility] [address] [place] [id number] [address] [place] [id number] SP Apr, Unspecified episodic mood di sorder F39 SP [facility] [address] [facility] [id number] [address] [place] [phone] SP Apr, Major depression F32.9 SP [facility] [address] [facility] [id number] [address] [place] [id number] SP Apr, SP [facility] [address] [place] [id number] [address] [place] [phone] SP Apr, Diabetes E11.9 ; Diabetic ne uropathy E11.40 ; Degenerative disc SP lumbar M51.36 ; HTN (hypertension) I10 ; Gastritis K29.70 ; Hyperlipidemia E78.5 ; Chronic pain G89.29 and Insomnia G47.00 [facility] [address] [facility] [id number] [address] [place] [phone] SP Mar, SP [facility] [address] [facility] [id number] [address] [place] [phone] SP Mar, SP [facility] [address] [id number] SP Mar, [facility] [address] [address] SP Mar, Diabetes mellitus 250.00 ; D iabetic neuropathy 250.60 ; CAD SP artery disease) 414.00 ; Degenerative disc disease, lumbar 722.52 ; Gastritis 535.50 and Insomnia 780.52 [place] [address] [id number] SP Mar, Diabetes mellitus 250.00 ; D egenerative disc disease, lumbar SP ; Essential hypertension 401.9 ; Gastritis 535.50 and Chronic pain 338.29 [place] [address] [address] SP Feb, [place] [address] [id number] SP Feb, [place] [address] [id number] SP Jan, [place] [address] [id number] SP Jan, Diabetes mellitus 250.00 ; D iabetic neuropathy 250.60 ; SP disc disease, lumbar 722.52 ; CAD (coronary artery disease) 414.00 ; Essential hypertension 401.9 ; Gastritis 535.50 ; Hyperlipidemia 272.4 and Distal end of ulna fracture, closed 813.43 [place] [address] [address] SP Dec, Wrist pain 719.43 and Diabet es mellitus 250.00 SP [place] [address] [id number] SP May, [place] [address] [id number] SP Dec, [place] [address] [id number] SP 13 Nov, 2009 SP [facility] [address] [id number] [address] [place] [address], [place] [address] SP 16 Oct, 2009 SP [facility] [address] [id number] [address] [place] [address], [place] [address] SP 17 Sep, 2009 SP [facility] [address] [id number] [address] [place] [address], [place] [address] SP 11 Sep, 2009 SP [facility] [address] [id number] [address] [place] [address], [place] [address] SP Jun, SP [facility] [address] [id number] [address] [place] [address], [place] [address] SP Jun, SP [facility] [address] [id number] [address] [place] [address], [place] [address] SP 14 Jun, 2009 SP [facility] [address] [id number] [address] [place] [address], [place] [address] SP Jun, SP [facility] [address] [id number] [address] [place] [address], [place] [address] SP Jun, SP [facility] [address] [id number] [address] [place] [address], [place] [address] SP Jun, SP [facility] [address] [id number] [address] [place] [address], [place] [address] SP Jun, SP [facility] [address] [id number] [address] [place] [phone] SP May, SP [facility] [address] [id number] [address] [place] [address], [place] [address] SP May, SP [facility] [address] [id number] [address] [place] [address], [place] [address] SP May, SP [facility] [address] [id number] [address] [place] [address], [place] [address] SP May, SP [facility] [address] [facility] [id number] [address] [place] [phone] SP Apr, SP [facility] [address] [facility] [id number] [address] [place] [phone] SP Apr, SP [facility] [address] [facility] [id number] [address] [place] [id number] SP Apr, SP [facility] [address] [facility] [id number] [address] [place] [phone] SP Mar, SP [facility] [address] [facility] [id number] [address] [place] [phone] SP Dec, SP IMMUNIZATIONS No Known Immunizations SOCIAL HISTORY Never Assessed REASON FOR VISIT Pain management (chronic)-[facility], check diabetes PLAN OF CARE Activity Details POS SP Follow Up 3 Months with Ana pierre DM/C AD Reason: SP VITAL SIGNS Height 61 in 2017-12-01 POS Weight 137.5 lbs 2017-12-01 POS Temperature 97.4 degrees Fahrenheit 2017-12-01 POS Heart Rate 88 bpm 2017-12-01 POS Respiratory Rate 18 2017-12-01 POS BMI 25.98 kg/m2 2017-12-01 POS Blood pressure systolic 118 mmHg 2017-12-01 POS Blood pressure diastolic 76 mmHg 2017-12-01 POS MEDICATIONS Medication Instructions Dosage Frequency Start Date End Date Duration S tatus POS Accu-Chek Deepika Plus - subcutaneously 4 times a day to check glucos e 6h Feb, Active SP HydrOXYzine HCl 50 mg Orally at bedtime as needed for sleep 1 table 14 Feb, 30 days Active SP Plavix 75 MG TAKE 1 TABLET EVERY DAY 28 Active SP Metoclopramide HCl 10 mg Orally every 6 hours 1 tab 6h 90 days Active SP Accu-Chek Softclix Lancets - subcutaneously 4 times a day us e to check blood SP 6h Feb, Active SP Levemir FlexTouch 100 UNIT/ML Subcutaneous 55 units bid inject Active SP Lisinopril-Hydrochlorothiazide 20-25 MG Orally Once a day 1 tablet 24h Dec, Active SP Aspir-81 81 MG Orally Once a day 1 tablet 24h Active SP Actos 15 mg Orally Once a day 1 tablet 24h Sep, 30 d ay(s) Active SP NovoLog Flexpen 100 UNIT/ML Subcutaneous 3 times a day with meals inject 40 SP Active SP Metformin HCl 500 mg DX- E11.65 at supper 2 tablets Aug, 30 day(s) SP Janumet 50-500 MG Orally Twice a day 1 tablet with meals 12h Aug, 30 SP Active SP Crestor 40 mg Orally Once a day 1 tablet 24h Active SP Hydrocodone-Acetaminophen 10-325 MG Orally 3 times a day 1 tablet a s needed 8h Nov, 2017 28 days Active SP Accu-Chek Deepika Plus w/Device subcutaneously 4 times a day check reyes gars 6h 23 2016 Active SP Pen [place] 31G X 6 MM as directed 6h 29 Dec, 2014 Active SP Prazosin HCl 2 MG Orally at bedtime 1 capsule Feb, 30 day(s) Active SP Lamictal 100 mg Orally Once a day 1 tablet 24h Feb, 30 day(s) Active SP Gabapentin 300 MG TAKE 1 CAPSULE THREE TIMES DAILY 90 Active SP RESULTS Name Result Date Reference Range POS A1C (IN HOUSE) 2017-12-01 SP A1C IN HOUSE 12.5 4.3 - 5.6 % SP Previous A1c 14.0 SP Lot [id number] SP Exp date SP PROCEDURES Procedure Date Ordered Result Body Site POS GLYCATED HEMOGLOBIN TEST December 01, 2017 SP INSTRUCTIONS MEDICATIONS ADMINISTERED No Known Medications [...]
--- OUTSIDE RECORDS SUMMARY | 2019-06-14 01:41 | XMS REPORT ---
Author Author JALEN PEREZ POS Organization [facility] SP Address [address] [place] [address] SP Care Team Providers Care Polisher Sand Name Role Phone POS RISSAKARTIKFLAQUITOY Unavailable SP PROBLEMS Type Condition ICD9-CM Code DYO89-DE Code Onset Dates Condition S tatus SNOMED POS Problem Type 2 diabetes mellitus with hyperglycemia E11.65 Active POS Problem Major depressive disorder, recurrent episode, moderate F33.1 Active SP Problem Obsessive-compulsive disorder, unspecified type F4 2.9 Active SP Problem Ataxia R27.0 Active 93401696 SP Problem Falls frequently R29.6 Active 279 332490 SP Problem Type 2 diabetes mellitus with other diab etic neurological complication SP E11.49 Active 45745933 SP Problem flat locker 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.4 Active 221859601 SP Problem History of pulmonary embolism Z86.711 Active 289455324 SP Problem Type 2 diabetes mellitus with other diabetic kid allen complication SP Active 36600204 SP Problem Insomnia G47.00 Active 865283728 SP Problem Degenerative disc disease, lumbar M51.36 Active 90068834 SP Problem HTN (hypertension) I10 Active 3 9204559 SP Problem Hyperlipidemia E78.5 Active 11482 004 SP Problem CAD (coronary artery disease) I25.10 Active 50043158 SP Problem Chronic pain G89.29 Active 8039758 1 SP Problem Post-traumatic stress disorder F43.10 Active 16186393 SP ALLERGIES No Information ENCOUNTERS Encounter Location Date Diagnosis POS [facility] [address] [facility] [id number] [address] [place] [phone] SP Mar, SP [facility] [address] [facility] [id number] [address] [place] [phone] SP Feb, SP [facility] [address] [facility] [id number] [address] [place] [phone] SP Jan, SP [facility] [address] [facility] [id number] [address] [place] [phone] SP Jan, SP [facility] [address] [facility] [id number] [address] [place] [phone] SP Jan, SP [facility] [address] [facility] [id number] [address] [place] [phone] SP Jan, SP [facility] [address] [facility] [id number] [address] [place] [phone] SP Jan, SP [facility] [address] [facility] [id number] [address] [place] [phone] SP Jan, SP [facility] [address] [facility] [id number] [address] [place] [phone] SP Jan, Slurred speech R47.81 ; Atax ia R27.0 and Left arm weakness SP [facility] [address] [facility] [id number] [address] [place] [phone] SP Jan, SP [facility] [address] [facility] [id number] [address] [place] [phone] SP Jan, Type 2 diabetes mellitus wit h hyperglycemia E11.65 and SP vomiting with nausea, unspecified vomiting type R11.2 [facility] [address] [facility] [id number] [address] [place] [phone] SP Dec, CAD (coronary artery disease ) I25.10 and Atypical chest pain SP [facility] [address] [facility] [id number] [address] [place] [phone] SP Dec, SP [facility] [address] [facility] [id number] [address] [place] [phone] SP Dec, Diabetes E11.9 ; Type 2 diab etes mellitus with hyperglycemia SP and Intractable vomiting with nausea, unspecified vomiting type R11.2 [facility] [address] [facility] [id number] [address] [place] [phone] SP Dec, Chronic pain G89.29 SP [facility] [address] [facility] [id number] [address] [place] [phone] SP November, SP [facility] [address] [facility] [id number] [address] [place] [phone] SP November, Diabetes E11.9 ; CAD ([place]in[place] ry artery disease) I25.10 ; Atypical SP pain R07.89 ; Type 2 diabetes mellitus with hyperglycemia E11.65 ; 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.29 ; flat locker 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.4 and Chronic pain G89.29 [facility] [address] [facility] [id number] [address] [place] [phone] SP Oct, SP [facility] [address] [facility] [id number] [address] [place] [phone] SP Oct, Chronic pain G89.29 SP [facility] [address] [facility] [id number] [address] [place] [phone] SP Sep, Diabetes E11.9 SP [facility] [address] [facility] [id number] [address] [place] [phone] SP Sep, Chronic pain G89.29 SP [facility] [address] [facility] [id number] [address] [place] [phone] SP Sep, SP [facility] [address] [facility] [id number] [address] [place] [phone] SP Sep, Falls frequently R29.6 ; Elier g term 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.4 SP Type 2 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 E11.49 [facility] [address] [facility] [id number] [address] [place] [phone] SP Sep, SP [facility] [address] [facility] [id number] [address] [place] [phone] SP Sep, Diabetes E11.9 SP [facility] [address] [facility] [id number] [address] [place] [phone] SP Aug, SP [facility] [address] [facility] [id number] [address] [place] [phone] SP Aug, Chronic pain G89.29 SP [facility] [address] [facility] [id number] [address] [place] [phone] SP Aug, SP [facility] [address] [facility] [id number] [address] [place] [phone] SP Aug, Chronic pain G89.29 SP [facility] [address] [facility] [id number] [address] [place] [phone] SP Jul, SP [facility] [address] [facility] [id number] [address] [place] [phone] SP Jul, Diabetes E11.9 and Type 2 di abetes mellitus with other diabetic SP complication E11.29 [facility] [address] [facility] [id number] [address] [place] [phone] SP Jul, Type 2 diabetes mellitus wit h other diabetic kidney complication SP [facility] [address] [facility] [id number] [address] [place] [phone] SP Jul, SP [facility] [address] [facility] [id number] [address] [place] [phone] SP Jul, Chronic pain G89.29 SP [facility] [address] [facility] [id number] [address] [place] [phone] SP Jun, Diabetes E11.9 SP [facility] [address] [facility] [id number] [address] [place] [phone] SP Jun, Chronic pain G89.29 SP [facility] [address] [facility] [id number] [address] [place] [phone] SP Jun, Diabetes E11.9 ; Atypical ch est pain R07.89 ; flat locker current SP of insulin Z79.4 ; 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.29 ; Type 2 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 E11.49 ; History of pulmonary embolism Z86.711 and History of CVA (cerebrovascular accident) Z86.73 [facility] [address] [id number] [address] [place] [phone] SP May, SP [facility] [address] [facility] [id number] [address] [place] [phone] SP May, Chronic pain G89.29 SP [facility] [address] [facility] [id number] [address] [place] [phone] SP Apr, Chronic pain G89.29 SP [facility] [address] [facility] [id number] [address] [place] [phone] SP Apr, SP [facility] [address] [facility] [id number] [address] [place] [phone] SP Mar, Chronic pain G89.29 SP [facility] [address] [facility] [id number] [address] [place] [phone] SP Mar, Diabetes E11.9 SP [facility] [address] [facility] [id number] [address] [place] [phone] SP Mar, SP [facility] [address] [facility] [id number] [address] [place] [phone] SP Mar, Degenerative disc disease, l umbar M51.36 SP [facility] [address] [facility] [id number] [address] [place] [phone] SP Feb, Diabetes E11.9 SP [facility] [address] [facility] [id number] [address] [place] [phone] SP Feb, Diabetes E11.9 SP [facility] [address] [facility] [id number] [address] [place] [phone] SP Feb, Diabetes E11.9 ; HTN (hypert ension) I10 ; Diabetic neuropathy SP and Leg cramps R25.2 [facility] [address] [facility] [id number] [address] [place] [phone] SP Feb, Sprain of calcaneofibular li gament of right ankle, subsequent SP S93.411D ; Major depressive disorder, recurrent episode, moderate F33.1 ; Diabetes E11.9 ; Hyperlipidemia E78.5 ; Post-traumatic stress disorder F43.10 and Other irritable bowel syndrome K58.8 [place] [address] [facility] [id number] [address] [place] [phone] SP 14 Feb, 2017 Major depressive disorder, r ecurrent episode, moderate F33.1 ; SPtraumatic stress disorder F43.10 and Obsessive-compulsive disorder, unspecified type F42.9 [place] [address] [facility] [id number] [address] [place] [phone] SP Feb, SP [place] [address] [facility] [id number] [address] [place] [phone] SP Feb, Post-traumatic stress disord er F43.10 and Major depressive SP recurrent, moderate F33.1 [place] [address] [facility] [id number] [address] [place] [phone] SP Feb, Diabetes E11.9 SP [place] [address] [facility] [id number] [address] [place] [phone] SP Feb, Degenerative disc disease, l umbar M51.36 SP [place] [address] [facility] [id number] [address] [place] [phone] SP Feb, Post-traumatic stress disord er F43.10 and Major depressive SP recurrent, moderate F33.1 [place] [address] [facility] [id number] [address] [place] [phone] SP Feb, SP [place] [address] [facility] [id number] [address] [place] [phone] SP Feb, Diabetes E11.9 SP [place] [address] [facility] [id number] [address] [place] [phone] SP Jan, Diabetes E11.9 SP [place] [address] [facility] [id number] [address] [place] [phone] SP Jan, Post-traumatic stress disord er F43.10 and Major depressive SP recurrent, moderate F33.1 [facility] [address] [id number] [address] [place] [phone] SP Jan, Diabetes E11.9 SP [facility] [address] [id number] [address] [place] [phone] SP Jan, Diabetes E11.9 SP [facility] [address] [id number] [address] [place] [phone] SP Jan, SP [facility] [address] [id number] [address] [place] [phone] SP Jan, SP [facility] [address] [id number] [address] [place] [phone] SP Jan, Post-traumatic stress disord er F43.10 and Major depressive SP recurrent, moderate F33.1 [facility] [address] [id number] [address] [place] [phone] SP Jan, SP [facility] [address] [id number] [address] [place] [phone] SP Jan, Major depressive disorder, r ecurrent episode, moderate F33.1 ; SPtraumatic stress disorder F43.10 and Obsessive-compulsive disorder, unspecified type F42.9 [facility] [address] [id number] [address] [place] [phone] SP Jan, SP [facility] [address] [id number] [address] [place] [phone] SP Jan, Diabetes E11.9 SP [facility] [address] [id number] [address] [place] [phone] SP Jan, SP [facility] [address] [facility] [id number] [address] [place] [phone] SP Jan, Sprain of calcaneofibular li gament of right ankle, subsequent SP S93.411D [facility] [address] [facility] [id number] [address] [place] [phone] SP Jan, Post-traumatic stress disord er F43.10 and Major depressive SP recurrent, moderate F33.1 [facility] [address] [id number] [address] [place] [phone] SP Jan, Diabetes E11.9 SP [facility] [address] [id number] [address] [place] [phone] SP 16 Dec, 2016 Major depressive disorder, r ecurrent episode, moderate F33.1 ; SPtraumatic stress disorder F43.10 and Obsessive-compulsive disorder, unspecified type F42.9 [facility] [address] [id number] [address] [place] [phone] SP 15 Dec, 2016 SP [facility] [address] [id number] [address] [place] [phone] SP 14 Dec, 2016 Sprain of calcaneofibular li gament of right ankle, subsequent SP S93.411D [place] [address] [facility] [id number] [address] [place] [phone] SP Dec, Post-traumatic stress disord er F43.10 and Major depressive SP recurrent, moderate F33.1 [facility] [address] [id number] [address] [place] [phone] SP Dec, Sprain of calcaneofibular li gament of right ankle, subsequent SP S93.411D [place] [address] [id number] [address] [place] [phone] SP Dec, Hyperlipidemia E78.5 SP [facility] [address] [id number] [address] [place] [phone] SP Dec, SP [facility] [address] [id number] [address] [place] [phone] SP Dec, Diabetes E11.9 ; Diabetic ne uropathy E11.40 ; Degenerative disc SP lumbar M51.36 ; Hyperlipidemia E78.5 ; Insomnia G47.00 ; CAD (coronary artery disease) I25.10 ; Major depressive disorder, recurrent, moderate F33.1 ; Post- traumatic stress disorder F43.10 and Other irritable bowel syndrome K58.8 [facility] [address] [place] [id number] [place] [phone] SP November, Diabetic neuropathy E11.40 a nd Hyperlipidemia E78.5 SP [place] [address] [place] [id number] [place] [phone] SP November, Degenerative disc disease, l umbar M51.36 SP [place] [address] [phone] SP Oct, [place] [address] [phone] SP Oct, Degenerative disc disease, l umbar M51.36 SP [place] [address] [phone] SP Sep, Degenerative disc disease, l umbar M51.36 and HTN (hypertension) SP [place] [address] [phone] SP Sep, Diabetic neuropathy E11.40 ; HTN (hypertension) I10 ; SP disc disease, lumbar M51.36 ; Hyperlipidemia E78.5 ; Insomnia G47.00 ; CAD (coronary artery disease) I25.10 and Diabetes E11.9 [place] [address] [phone] SP Aug, [place] [address] [phone] SP Aug, Type 2 diabetes mellitus wit h hyperglycemia E11.65 SP [place] [address] [place] [id number] [place] [phone] SP Aug, [place] [address] [place] [id number] [place] [phone] SP Jul, [place] [address] [phone] SP Jul, [place] [address] [facility] [id number] [address] [place] [phone] SP Jun, SP [facility] [address] [facility] [id number] [address] [place] [phone] SP Jun, SP [facility] [address] [facility] [id number] [address] [place] [phone] SP Jun, SP [facility] [address] [facility] [id number] [address] [place] [phone] SP Jun, SP [facility] [address] [facility] [id number] [address] [place] [phone] SP May, Major depressive disorder, r ecurrent episode, moderate F33.1 and SPtraumatic stress disorder F43.10 [place] [address] [facility] [id number] [address] [place] [phone] SP May, Major depressive disorder, r ecurrent episode, moderate F33.1 and SPtraumatic stress disorder F43.10 [place] [address] [facility] [id number] [address] [place] [phone] SP May, Diabetes E11.9 ; Diabetic ne uropathy E11.40 ; HTN (hypertension) SP ; Gastritis K29.70 ; Hyperlipidemia E78.5 ; Insomnia G47.00 and Major depressive disorder, recurrent, moderate F33.1 [facility] [address] [facility] [id number] [address] [place] [phone] SP May, Major depressive disorder, r ecurrent episode, moderate F33.1 SP [facility] [address] [facility] [id number] [address] [place] [phone] SP Apr, SP [facility] [address] [facility] [id number] [address] [place] [phone] SP Apr, Major depressive disorder, r ecurrent episode, moderate F33.1 and SPtraumatic stress disorder F43.10 [facility] [address] [facility] [id number] [address] [place] [phone] SP Apr, Diabetes E11.9 ; Diabetic ne uropathy E11.40 ; Degenerative disc SP lumbar M51.36 ; HTN (hypertension) I10 ; Hyperlipidemia E78.5 ; Chronic pain G89.29 ; CAD (coronary artery disease) I25.10 and Major depressive disorder, recurrent, moderate F33.1 [place] [address] [facility] [id number] [address] [place] [phone] SP Apr, Major depressive disorder, r ecurrent episode, moderate F33.1 and SPtraumatic stress disorder F43.10 [place] [address] [facility] [id number] [place] [phone] SP Apr, Major depressive disorder, r ecurrent episode, moderate F33.1 and SPtraumatic stress disorder F43.10 [place] [address] [place] [id number] [place] [phone] SP Apr, Major depressive disorder, r ecurrent episode, moderate F33.1 and SP episodic mood disorder F39 [place] [address] [id number] SP Apr, Chronic pain G89.29 ; Diabet ic neuropathy E11.40 ; HTN SP I10 ; Insomnia G47.00 ; CAD (coronary artery disease) I25.10 ; Hyperlipidemia E78.5 ; Degenerative disc disease, lumbar M51.36 ; Diabetes E11.9 and Gastritis K29.70 [place] [id number] [place] [phone] SP Sep, SP [place] [address] [place] [id number] [address] [place] [phone] SP Aug, SP [place] [address] [phone] SP Jul, Major depressive disorder, r ecurrent episode, moderate F33.1 SP [place] [address] [facility] [id number] [address] [place] [phone] SP Jul, Unspecified episodic mood di sorder F39 SP [place] [address] [facility] [id number] [address] [place] [phone] SP Jul, SP [facility] [address] [facility] [id number] [place] [phone] SP Jul, SP [facility] [address] [facility] [id number] [address] [place] [phone] SP Jul, SP [facility] [address] [place] [id number] [place] [phone] SP Jul, Type 2 diabetes mellitus wit h hyperglycemia E11.65 ; Diabetic SP E11.40 ; Degenerative disc disease, lumbar M51.36 ; HTN (hypertension) I10 ; Gastritis K29.70 ; Hyperlipidemia E78.5 and CAD (coronary artery disease) I25.10 [place] [address] [place] [id number] [place] [phone] SP Jul, Severe episode of recurrent major depressive disorder, without SP features F33.2 [facility] [address] [phone] SP Jul, SP [facility] [address] [facility] [id number] [place] [phone] SP Jun, SP [facility] [address] [place] [id number] [place] [phone] SP Jun, Diabetes E11.9 ; Diabetic ne uropathy E11.40 ; Degenerative disc SP lumbar M51.36 ; HTN (hypertension) I10 ; Gastritis K29.70 ; Hyperlipidemia E78.5 ; Unspecified episodic mood disorder F39 ; Depression F32.9 and CAD (coronary artery disease) I25.10 [facility] [address] [facility] [id number] [address] [place] [phone] SP Jun, SP [facility] [address] [place] [id number] [address] [place] [phone] SP Jun, SP [facility] [address] [place] [id number] [place] [phone] SP Jun, Diabetes E11.9 ; Diabetic ne uropathy E11.40 ; Degenerative disc SP lumbar M51.36 ; HTN (hypertension) I10 ; Gastritis K29.70 ; Chronic pain G89.29 ; Insomnia G47.00 and Unspecified episodic mood disorder F39 [facility] [address] [facility] [id number] [address] [place] [phone] SP May, Diabetic neuropathy E11.40 ; Degenerative disc disease, lumbar SP ; HTN (hypertension) I10 ; Gastritis K29.70 ; Hyperlipidemia E78.5 ; Chronic pain G89.29 ; Insomnia G47.00 ; Unspecified episodic mood disorder F39 ; Diabetes E11.9 ; CAD (coronary artery disease) I25.10 and H/O Gram positive sepsis Z86.19 [facility] [address] [facility] [id number] [address] [place] [phone] SP May, SP [facility] [address] [facility] [id number] [address] [place] [phone] SP May, SP [facility] [address] [facility] [id number] [address] [place] [phone] SP May, SP [facility] [facility] [address] [facility] [id number] [address] [place] [phone] SP May, SP [facility] [address] [facility] [id number] [address] [place] [phone] SP May, UTI (urinary tract infection ) N39.0 ; Diabetes E11.9 ; Diabetic SP E11.40 ; Hyperlipidemia E78.5 and Chronic pain G89.29 [facility] [address] [facility] [id number] [address] [place] [phone] SP May, Insomnia, unspecified G47.00 and Chronic pain G89.29 SP [facility] [address] [facility] [id number] [address] [place] [phone] SP May, SP [facility] [address] [facility] [id number] [address] [place] [phone] SP May, SP [facility] [id number] [place] [phone] SP May, SP [facility] [address] [place] [id number] [place] [phone] SP Apr, Insomnia, unspecified G47.00 ; Chronic pain G89.29 and SP episodic mood disorder F39 [facility] [address] [place] [id number] [place] [phone] SP Apr, Unspecified episodic mood di sorder F39 SP [facility] [address] [facility] [id number] [place] [phone] SP Apr, Major depression F32.9 [address] [place] [address] [place] [id number] [place] [phone] SP Apr, SP [place] [address] [phone] SP Apr, Diabetes E11.9 ; Diabetic ne uropathy E11.40 ; Degenerative disc SP lumbar M51.36 ; HTN (hypertension) I10 ; Gastritis K29.70 ; Hyperlipidemia E78.5 ; Chronic pain G89.29 and Insomnia G47.00 [place] [address] [phone] SP Mar, SP [place] [address] [place] [id number] [place] [phone] SP Mar, SP [facility] [address] [place] [id number] [place] [phone] SP Mar, SP [facility] [address] [place] [id number] [place] [phone] SP Mar, Diabetes mellitus 250.00 ; D iabetic neuropathy 250.60 ; CAD SP artery disease) 414.00 ; Degenerative disc disease, lumbar 722.52 ; Gastritis 535.50 and Insomnia 780.52 [place] [address] [place] [id number] [place] [phone] SP Mar, Diabetes mellitus 250.00 ; D egenerative disc disease, lumbar SP ; Essential hypertension 401.9 ; Gastritis 535.50 and Chronic pain 338.29 [facility] [address] [id number] SP Feb, SP [facility] [address] [place] [id number] [place] [phone] SP Feb, SP [facility] [address] [id number] SP Jan, SP [facility] [address] [place] [id number] [place] [phone] SP Jan, Diabetes mellitus 250.00 ; D iabetic neuropathy 250.60 ; SP disc disease, lumbar 722.52 ; CAD (coronary artery disease) 414.00 ; Essential hypertension 401.9 ; Gastritis 535.50 ; Hyperlipidemia 272.4 and Distal end of ulna fracture, closed 813.43 [facility] [address] [id number] SP Dec, Wrist pain 719.43 and Diabet es mellitus 250.00 SP [facility] [address] [id number] SP May, SP [facility] [address] [place] [id number] [place] [phone] SP Dec, SP [facility] [address] [id number] SP November, SP [facility] [address] [place] [id number] [place] [phone] SP Oct, SP [facility] [address] [place] [id number] [place] [phone] SP Sep, SP [facility] [address] [place] [id number] [place] [phone] SP Sep, SP [facility] [address] [id number] SP Jun, SP [facility] [address] [id number] [address] [place] [address], [place] [phone] SP Jun, SP [facility] [address] [id number] [address] [place] [phone] SP 14 Jun, 2009 SP [facility] [address] [id number] [address] [place] [address], [place] [phone] SP Jun, SP [facility] [address] [id number] [address] [place] [phone] SP Jun, SP [facility] [address] [id number] [address] [place] [phone] SP Jun, SP [facility] [address] [id number] [address] [place] [phone] SP Jun, SP [facility] [address] [id number] [address] [place] [phone] SP May, SP [facility] [address] [id number] [address] [place] [phone] SP May, SP [facility] [address] [id number] [address] [place] [phone] SP May, SP [facility] [address] [id number] [address] [place] [phone] SP May, SP [facility] [address] [id number] [address] [place] [phone] SP 28 Apr, 2009 SP [facility] [address] [id number] [address] [place] [phone] SP 19 Apr, 2009 SP [facility] [address] [id number] [address] [place] [phone] SP 12 Apr, 2009 SP [facility] [address] [id number] [address] [place] [phone] SP 16 Mar, 2009 SP [facility] [address] [id number] [address] [place] [address], [place] [phone] SP Dec, SP IMMUNIZATIONS No Known Immunizations SOCIAL HISTORY Never Assessed REASON FOR VISIT Medication refill request PLAN OF CARE VITAL SIGNS MEDICATIONS Medication Instructions Dosage Frequency Start Date End Date Duration S tatus POS Gabapentin 300 MG TAKE 1 CAPSULE THREE TIMES DAILY 90 Active SP RESULTS No Results PROCEDURES No [...]
--- OUTSIDE RECORDS SUMMARY | 2019-06-14 01:41 | XMS REPORT ---
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 Name Role Phone POS RISSAKARTIKFLAQUITOY Unavailable SP PROBLEMS Type Condition ICD9-CM Code [id number] Code Onset Dates Condition S tatus SNOMED POS Problem Type 2 diabetes mellitus with hyperglycemia E11.65 Active POS Problem Major depressive disorder, recurrent episode, moderate F33.1 Active SP Problem Obsessive-compulsive disorder, unspecified type F4 2.9 Active SP Problem Ataxia R27.0 Active [id number] SP Problem Falls frequently R29.6 Active 279 527392 SP Problem Type 2 diabetes mellitus with other diab etic neurological complication SP E11.49 Active 34555809 SP 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 538974478 SP Problem History of pulmonary embolism Z86.711 Active 827304723 SP Problem Type 2 diabetes mellitus with other diabetic kid allen complication SP Active 14525500 SP Problem Insomnia G47.00 Active 490557192 SP Problem Degenerative disc disease, lumbar M51.36 Active 78612200 SP Problem HTN (hypertension) I10 Active 3 5617531 SP Problem Hyperlipidemia E78.5 Active 92169 004 SP Problem CAD (coronary artery disease) I25.10 Active 40087536 SP Problem Chronic pain G89.29 Active 9153684 1 SP Problem Post-traumatic stress disorder F43.10 Active 28222970 SP ALLERGIES No Information ENCOUNTERS Encounter Location Date Diagnosis POS [facility] [address] [facility] [id number] [address] [place] [phone] SP Mar, SP [facility] [address] [facility] [id number] [address] [place] [phone] SP Feb, SP [facility] [address] [facility] [id number] [address] [place] [phone] SP Jan, SP [facility] [address] [facility] [id number] [address] [place] [phone] SP Jan, SP [facility] [address] [facility] [id number] [address] [place] [phone] SP Jan, SP [facility] [address] [facility] [id number] [address] [place] [phone] SP Jan, SP [facility] [address] [facility] [id number] [address] [place] [phone] SP Jan, SP [facility] [address] [facility] [id number] [address] [place] [phone] SP Jan, SP [facility] [address] [facility] [id number] [address] [place] [phone] SP Jan, Slurred speech R47.81 ; Atax ia R27.0 and Left arm weakness SP [facility] [address] [facility] [id number] [address] [place] [phone] SP Jan, SP [facility] [address] [facility] [id number] [address] [place] [phone] SP Jan, Type 2 diabetes mellitus wit h hyperglycemia E11.65 and SP vomiting with nausea, unspecified vomiting type R11.2 [facility] [address] [facility] [id number] [address] [place] [phone] SP Dec, CAD (coronary artery disease ) I25.10 and Atypical chest pain SP [facility] [address] [facility] [id number] [address] [place] [phone] SP Dec, SP [facility] [address] [facility] [id number] [address] [place] [phone] SP Dec, Diabetes E11.9 ; Type 2 diab etes mellitus with hyperglycemia SP and Intractable vomiting with nausea, unspecified vomiting type R11.2 [facility] [address] [facility] [id number] [address] [place] [phone] SP Dec, Chronic pain G89.29 SP [facility] [address] [facility] [id number] [address] [place] [phone] SP November, SP [facility] [address] [facility] [id number] [address] [place] [phone] SP November, Diabetes E11.9 ; CAD ([place]in[place] ry artery disease) I25.10 ; Atypical SP pain R07.89 ; Type 2 diabetes mellitus with hyperglycemia E11.65 ; 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.29 ; 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 and Chronic pain G89.29 [facility] [address] [facility] [id number] [address] [place] [phone] SP Oct, SP [facility] [address] [facility] [id number] [address] [place] [phone] SP Oct, Chronic pain G89.29 SP [facility] [address] [facility] [id number] [address] [place] [phone] SP Sep, Diabetes E11.9 SP [facility] [address] [facility] [id number] [address] [place] [phone] SP Sep, Chronic pain G89.29 SP [facility] [address] [facility] [id number] [address] [place] [phone] SP Sep, SP [facility] [address] [facility] [id number] [address] [place] [phone] SP Sep, Falls frequently R29.6 ; Elier g term 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.4 SP Type 2 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 E11.49 [facility] [address] [facility] [id number] [address] [place] [phone] SP Sep, SP [facility] [address] [facility] [id number] [address] [place] [phone] SP Sep, Diabetes E11.9 SP [facility] [address] [facility] [id number] [address] [place] [phone] SP Aug, SP [facility] [address] [facility] [id number] [address] [place] [phone] SP Aug, Chronic pain G89.29 SP [facility] [address] [facility] [id number] [address] [place] [phone] SP Aug, SP [facility] [address] [facility] [id number] [address] [place] [phone] SP Aug, Chronic pain G89.29 SP [facility] [address] [facility] [id number] [address] [place] [phone] SP Jul, SP [facility] [address] [facility] [id number] [address] [place] [phone] SP Jul, Diabetes E11.9 and Type 2 di abetes mellitus with other diabetic SP complication E11.29 [facility] [address] [facility] [id number] [address] [place] [phone] SP Jul, Type 2 diabetes mellitus wit h other diabetic kidney complication SP [facility] [address] [facility] [id number] [address] [place] [phone] SP Jul, SP [facility] [address] [facility] [id number] [address] [place] [phone] SP Jul, Chronic pain G89.29 SP [facility] [address] [facility] [id number] [address] [place] [phone] SP Jun, Diabetes E11.9 SP [facility] [address] [facility] [id number] [address] [place] [phone] SP Jun, Chronic pain G89.29 SP [facility] [address] [facility] [id number] [address] [place] [phone] SP Jun, Diabetes E11.9 ; Atypical ch est pain R07.89 ; painter 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 of 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 Z79.4 ; 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.29 ; Type 2 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 E11.49 ; History of pulmonary embolism Z86.711 and History of CVA (cerebrovascular accident) Z86.73 [facility] [address] [id number] [address] [place] [phone] SP May, SP [facility] [address] [facility] [id number] [address] [place] [phone] SP May, Chronic pain G89.29 SP [facility] [address] [facility] [id number] [address] [place] [phone] SP Apr, Chronic pain G89.29 SP [facility] [address] [facility] [id number] [address] [place] [phone] SP Apr, SP [facility] [address] [facility] [id number] [address] [place] [phone] SP Mar, Chronic pain G89.29 SP [facility] [address] [facility] [id number] [address] [place] [phone] SP Mar, Diabetes E11.9 SP [facility] [address] [facility] [id number] [address] [place] [phone] SP Mar, SP [facility] [address] [facility] [id number] [address] [place] [phone] SP Mar, Degenerative disc disease, l umbar M51.36 SP [facility] [address] [facility] [id number] [address] [place] [phone] SP Feb, Diabetes E11.9 SP [facility] [address] [facility] [id number] [address] [place] [phone] SP Feb, Diabetes E11.9 SP [facility] [address] [facility] [id number] [address] [place] [phone] SP Feb, Diabetes E11.9 ; HTN (hypert ension) I10 ; Diabetic neuropathy SP and Leg cramps R25.2 [facility] [address] [facility] [id number] [address] [place] [phone] SP Feb, Sprain of calcaneofibular li gament of right ankle, subsequent SP S93.411D ; Major depressive disorder, recurrent episode, moderate F33.1 ; Diabetes E11.9 ; Hyperlipidemia E78.5 ; Post-traumatic stress disorder F43.10 and Other irritable bowel syndrome K58.8 [place] [id number] [facility] [id number] [address] [place] [phone] SP 14 Feb, 2017 Major depressive disorder, r ecurrent episode, moderate F33.1 ; SPtraumatic stress disorder F43.10 and Obsessive-compulsive disorder, unspecified type F42.9 [place] [address] [facility] [id number] [address] [place] [phone] SP Feb, SP [place] [address] [facility] [id number] [address] [place] [phone] SP Feb, Post-traumatic stress disord er F43.10 and Major depressive SP recurrent, moderate F33.1 [place] [address] [facility] [id number] [address] [place] [phone] SP Feb, Diabetes E11.9 SP [place] [address] [facility] [id number] [address] [place] [phone] SP Feb, Degenerative disc disease, l umbar M51.36 SP [place] [address] [facility] [id number] [address] [place] [phone] SP Feb, Post-traumatic stress disord er F43.10 and Major depressive SP recurrent, moderate F33.1 [place] [address] [facility] [id number] [address] [place] [phone] SP Feb, SP [place] [address] [facility] [id number] [address] [place] [phone] SP Feb, Diabetes E11.9 SP [place] [address] [facility] [id number] [address] [place] [phone] SP Jan, Diabetes E11.9 SP [place] [address] [facility] [id number] [address] [place] [phone] SP Jan, Post-traumatic stress disord er F43.10 and Major depressive SP recurrent, moderate F33.1 [facility] [address] [id number] [address] [place] [phone] SP Jan, Diabetes E11.9 SP [facility] [address] [id number] [address] [place] [phone] SP Jan, Diabetes E11.9 SP [facility] [address] [id number] [address] [place] [phone] SP Jan, SP [facility] [address] [id number] [address] [place] [phone] SP Jan, SP [facility] [address] [id number] [address] [place] [phone] SP Jan, Post-traumatic stress disord er F43.10 and Major depressive SP recurrent, moderate F33.1 [facility] [address] [id number] [address] [place] [phone] SP Jan, SP [facility] [address] [id number] [address] [place] [phone] SP Jan, Major depressive disorder, r ecurrent episode, moderate F33.1 ; SPtraumatic stress disorder F43.10 and Obsessive-compulsive disorder, unspecified type F42.9 [facility] [address] [id number] [address] [place] [phone] SP Jan, SP [facility] [address] [id number] [address] [place] [phone] SP Jan, Diabetes E11.9 SP [facility] [address] [id number] [address] [place] [phone] SP Jan, SP [facility] [address] [facility] [id number] [address] [place] [phone] SP Jan, Sprain of calcaneofibular li gament of right ankle, subsequent SP S93.411D [facility] [address] [facility] [id number] [address] [place] [phone] SP Jan, Post-traumatic stress disord er F43.10 and Major depressive SP recurrent, moderate F33.1 [facility] [address] [id number] [address] [place] [phone] SP Jan, Diabetes E11.9 SP [facility] [address] [id number] [address] [place] [phone] SP 16 Dec, 2016 Major depressive disorder, r ecurrent episode, moderate F33.1 ; SPtraumatic stress disorder F43.10 and Obsessive-compulsive disorder, unspecified type F42.9 [facility] [address] [id number] [address] [place] [phone] SP 15 Dec, 2016 SP [facility] [address] [id number] [address] [place] [phone] SP 14 Dec, 2016 Sprain of calcaneofibular li gament of right ankle, subsequent SP S93.411D [place] [address] [facility] [id number] [address] [place] [phone] SP Dec, Post-traumatic stress disord er F43.10 and Major depressive SP recurrent, moderate F33.1 [facility] [address] [id number] [address] [place] [phone] SP Dec, Sprain of calcaneofibular li gament of right ankle, subsequent SP S93.411D [place] [address] [id number] [address] [place] [id number] SP Dec, Hyperlipidemia E78.5 SP [facility] [address] [id number] [address] [place] [phone] SP Dec, SP [facility] [address] [id number] [address] [place] [phone] SP Dec, Diabetes E11.9 ; Diabetic ne uropathy E11.40 ; Degenerative disc SP lumbar M51.36 ; Hyperlipidemia E78.5 ; Insomnia G47.00 ; CAD (coronary artery disease) I25.10 ; Major depressive disorder, recurrent, moderate F33.1 ; Post- traumatic stress disorder F43.10 and Other irritable bowel syndrome K58.8 [facility] [address] [place] [id number] [place] [phone] SP November, Diabetic neuropathy E11.40 a nd Hyperlipidemia E78.5 SP [place] [address] [place] [id number] [place] [phone] SP November, Degenerative disc disease, l umbar M51.36 SP [place] [address] [phone] SP Oct, [place] [address] [phone] SP Oct, Degenerative disc disease, l umbar M51.36 SP [place] [address] [phone] SP Sep, Degenerative disc disease, l umbar M51.36 and HTN (hypertension) SP [place] [address] [address] SP Sep, Diabetic neuropathy E11.40 ; HTN (hypertension) I10 ; SP disc disease, lumbar M51.36 ; Hyperlipidemia E78.5 ; Insomnia G47.00 ; CAD (coronary artery disease) I25.10 and Diabetes E11.9 [place] [address] [phone] SP Aug, [place] [address] [address] SP Aug, Type 2 diabetes mellitus wit h hyperglycemia E11.65 SP [place] [address] [place] [id number] [place] [phone] SP Aug, [place] [address] [place] [id number] [place] [phone] SP Jul, [place] [address] [address] SP Jul, [place] [address] [facility] [id number] [address] [place] [phone] SP Jun, SP [facility] [address] [facility] [id number] [address] [place] [phone] SP Jun, SP [facility] [address] [facility] [id number] [address] [place] [phone] SP Jun, SP [facility] [address] [facility] [id number] [address] [place] [phone] SP Jun, SP [facility] [address] [facility] [id number] [address] [place] [phone] SP May, Major depressive disorder, r ecurrent episode, moderate F33.1 and SPtraumatic stress disorder F43.10 [place] [address] [facility] [id number] [address] [place] [phone] SP May, Major depressive disorder, r ecurrent episode, moderate F33.1 and SPtraumatic stress disorder F43.10 [place] [address] [facility] [id number] [address] [place] [phone] SP May, Diabetes E11.9 ; Diabetic ne uropathy E11.40 ; HTN (hypertension) SP ; Gastritis K29.70 ; Hyperlipidemia E78.5 ; Insomnia G47.00 and Major depressive disorder, recurrent, moderate F33.1 [facility] [address] [facility] [id number] [address] [place] [phone] SP May, Major depressive disorder, r ecurrent episode, moderate F33.1 SP [facility] [address] [facility] [id number] [address] [place] [phone] SP Apr, SP [facility] [address] [facility] [id number] [address] [place] [phone] SP Apr, Major depressive disorder, r ecurrent episode, moderate F33.1 and SPtraumatic stress disorder F43.10 [facility] [address] [facility] [id number] [address] [place] [phone] SP Apr, Diabetes E11.9 ; Diabetic ne uropathy E11.40 ; Degenerative disc SP lumbar M51.36 ; HTN (hypertension) I10 ; Hyperlipidemia E78.5 ; Chronic pain G89.29 ; CAD (coronary artery disease) I25.10 and Major depressive disorder, recurrent, moderate F33.1 [place] [address] [facility] [id number] [address] [place] [phone] SP Apr, Major depressive disorder, r ecurrent episode, moderate F33.1 and SPtraumatic stress disorder F43.10 [place] [address] [facility] [id number] [place] [phone] SP Apr, Major depressive disorder, r ecurrent episode, moderate F33.1 and SPtraumatic stress disorder F43.10 [place] [address] [place] [id number] [place] [phone] SP Apr, Major depressive disorder, r ecurrent episode, moderate F33.1 and SP episodic mood disorder F39 [place] [address] [phone] SP Apr, Chronic pain G89.29 ; Diabet ic neuropathy E11.40 ; HTN SP I10 ; Insomnia G47.00 ; CAD (coronary artery disease) I25.10 ; Hyperlipidemia E78.5 ; Degenerative disc disease, lumbar M51.36 ; Diabetes E11.9 and Gastritis K29.70 [place] [id number] [place] [phone] SP Sep, SP [place] [address] [place] [id number] [address] [place] [phone] SP Aug, SP [place] [address] [phone] SP Jul, Major depressive disorder, r ecurrent episode, moderate F33.1 SP [place] [address] [facility] [id number] [address] [place] [phone] SP Jul, Unspecified episodic mood di sorder F39 SP [place] [address] [facility] [id number] [address] [place] [phone] SP Jul, SP [facility] [address] [facility] [id number] [place] [phone] SP Jul, SP [facility] [address] [facility] [id number] [address] [place] [phone] SP Jul, SP [facility] [address] [place] [id number] [place] [phone] SP Jul, Type 2 diabetes mellitus wit h hyperglycemia E11.65 ; Diabetic SP E11.40 ; Degenerative disc disease, lumbar M51.36 ; HTN (hypertension) I10 ; Gastritis K29.70 ; Hyperlipidemia E78.5 and CAD (coronary artery disease) I25.10 [place] [address] [place] [id number] [place] [phone] SP Jul, Severe episode of recurrent major depressive disorder, without SP features F33.2 [facility] [address] [phone] SP Jul, SP [facility] [address] [facility] [id number] [place] [phone] SP Jun, SP [facility] [address] [place] [id number] [place] [phone] SP Jun, Diabetes E11.9 ; Diabetic ne uropathy E11.40 ; Degenerative disc SP lumbar M51.36 ; HTN (hypertension) I10 ; Gastritis K29.70 ; Hyperlipidemia E78.5 ; Unspecified episodic mood disorder F39 ; Depression F32.9 and CAD (coronary artery disease) I25.10 [facility] [address] [facility] [id number] [address] [place] [phone] SP Jun, SP [facility] [address] [place] [id number] [place] [phone] SP Jun, SP [facility] [address] [place] [id number] [place] [phone] SP Jun, Diabetes E11.9 ; Diabetic ne uropathy E11.40 ; Degenerative disc SP lumbar M51.36 ; HTN (hypertension) I10 ; Gastritis K29.70 ; Chronic pain G89.29 ; Insomnia G47.00 and Unspecified episodic mood disorder F39 [facility] [address] [facility] [id number] [address] [place] [phone] SP May, Diabetic neuropathy E11.40 ; Degenerative disc disease, lumbar SP ; HTN (hypertension) I10 ; Gastritis K29.70 ; Hyperlipidemia E78.5 ; Chronic pain G89.29 ; Insomnia G47.00 ; Unspecified episodic mood disorder F39 ; Diabetes E11.9 ; CAD (coronary artery disease) I25.10 and H/O Gram positive sepsis Z86.19 [facility] [address] [facility] [id number] [address] [place] [phone] SP May, SP [facility] [address] [facility] [id number] [address] [place] [phone] SP May, SP [facility] [address] [facility] [id number] [address] [place] [id number] SP May, SP [facility] [address] [facility] [id number] [address] [place] [phone] SP May, SP [facility] [address] [facility] [id number] [address] [place] [id number] SP May, UTI (urinary tract infection ) N39.0 ; Diabetes E11.9 ; Diabetic SP E11.40 ; Hyperlipidemia E78.5 and Chronic pain G89.29 [facility] [address] [facility] [id number] [address] [place] [phone] SP May, Insomnia, unspecified G47.00 and Chronic pain G89.29 SP [facility] [address] [facility] [id number] [address] [place] [phone] SP May, SP [facility] [address] [facility] [id number] [address] [place] [phone] SP May, SP [facility] [id number] [place] [phone] SP May, SP [facility] [address] [place] [id number] [place] [phone] SP Apr, Insomnia, unspecified G47.00 ; Chronic pain G89.29 and SP episodic mood disorder F39 [facility] [address] [place] [id number] [place] [phone] SP Apr, Unspecified episodic mood di sorder F39 SP [facility] [address] [facility] [id number] [place] [phone] SP Apr, Major depression F32.9 [address] [place] [address] [place] [id number] [place] [phone] SP Apr, SP [place] [address] [phone] SP Apr, Diabetes E11.9 ; Diabetic ne uropathy E11.40 ; Degenerative disc SP lumbar M51.36 ; HTN (hypertension) I10 ; Gastritis K29.70 ; Hyperlipidemia E78.5 ; Chronic pain G89.29 and Insomnia G47.00 [place] [address] [phone] SP Mar, SP [place] [id number] [place] [id number] [place] [phone] SP Mar, SP [facility] [address] [place] [id number] [place] [phone] SP Mar, SP [facility] [address] [place] [id number] [place] [phone] SP Mar, Diabetes mellitus 250.00 ; D iabetic neuropathy 250.60 ; CAD SP artery disease) 414.00 ; Degenerative disc disease, lumbar 722.52 ; Gastritis 535.50 and Insomnia 780.52 [place] [address] [place] [id number] [place] [phone] SP Mar, Diabetes mellitus 250.00 ; D egenerative disc disease, lumbar SP ; Essential hypertension 401.9 ; Gastritis 535.50 and Chronic pain 338.29 [facility] [address] [id number] SP Feb, SP [facility] [address] [place] [id number] [place] [phone] SP Feb, SP [facility] [address] [id number] SP Jan, SP [facility] [address] [place] [id number] [place] [phone] SP Jan, Diabetes mellitus 250.00 ; D iabetic neuropathy 250.60 ; SP disc disease, lumbar 722.52 ; CAD (coronary artery disease) 414.00 ; Essential hypertension 401.9 ; Gastritis 535.50 ; Hyperlipidemia 272.4 and Distal end of ulna fracture, closed 813.43 [facility] [address] [address] SP Dec, Wrist pain 719.43 and Diabet es mellitus 250.00 SP [facility] [address] [phone] SP May, SP [facility] [address] [place] [id number] [place] [phone] SP Dec, SP [facility] [address] [phone] SP November, SP [facility] [address] [place] [id number] [place] [phone] SP Oct, SP [facility] [address] [place] [id number] [place] [phone] SP Sep, SP [facility] [address] [place] [id number] [place] [phone] SP Sep, SP [facility] [address] [id number] SP Jun, SP [facility] [address] [id number] [address] [place] [address], [place] [phone] SP Jun, SP [facility] [address] [id number] [address] [place] [phone] SP 14 Jun, 2009 SP [facility] [address] [id number] [address] [place] [address], [place] [id number] SP Jun, SP [facility] [address] [id number] [address] [place] [phone] SP Jun, SP [facility] [address] [id number] [address] [place] [phone] SP Jun, SP [facility] [address] [id number] [address] [place] [phone] SP Jun, SP [facility] [address] [id number] [address] [place] [phone] SP May, SP [facility] [address] [id number] [address] [place] [phone] SP May, SP [facility] [address] [id number] [address] [place] [phone] SP May, SP [facility] [address] [id number] [address] [place] [phone] SP May, SP [facility] [address] [id number] [address] [place] [phone] SP 28 Apr, 2009 SP [facility] [address] [id number] [address] [place] [phone] SP 19 Apr, 2009 SP [facility] [address] [id number] [address] [place] [phone] SP 12 Apr, 2009 SP [facility] [address] [id number] [address] [place] [phone] SP 16 Mar, 2009 SP [facility] [address] [id number] [address] [place] [address], [place] [address] SP Dec, SP IMMUNIZATIONS No Known Immunizations SOCIAL HISTORY Never Assessed REASON FOR VISIT Controlled Med Refill PLAN OF CARE VITAL SIGNS MEDICATIONS Medication Instructions Dosage Frequency Start Date End Date Duration S tatus POS Hydrocodone-Acetaminophen 10-325 MG Orally 3 times a day 1 tablet a s needed 8h SP Oct, 2017 28 days Active SP RESULTS No [...]
--- OUTSIDE RECORDS SUMMARY | 2019-06-14 01:42 | XMS REPORT ---
Author Author JALEN PEREZ POS Organization [facility] SP Address [address] [place] [address] SP Care Team Providers Care Leverman Name Role Phone POS ANAFLAQUITOY Unavailable SP PROBLEMS Type Condition ICD9-CM Code ODX10-HM Code Onset Dates Condition S tatus SNOMED POS Problem Type 2 diabetes mellitus with hyperglycemia E11.65 Active POS Problem Major depressive disorder, recurrent episode, moderate F33.1 Active SP Problem Obsessive-compulsive disorder, unspecified type F4 2.9 Active SP Problem Ataxia R27.0 Active 82883945 SP Problem Falls frequently R29.6 Active 279 612924 SP Problem Type 2 diabetes mellitus with other diab etic neurological complication SP E11.49 Active 68161696 SP Problem 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.4 Active 208628314 SP Problem History of pulmonary embolism Z86.711 Active 022430885 SP Problem Type 2 diabetes mellitus with other diabetic kid allen complication SP Active 05197019 SP Problem Insomnia G47.00 Active 638418520 SP Problem Degenerative disc disease, lumbar M51.36 Active 29535617 SP Problem HTN (hypertension) I10 Active 3 8490315 SP Problem Hyperlipidemia E78.5 Active 52758 004 SP Problem CAD (coronary artery disease) I25.10 Active 60248174 SP Problem Chronic pain G89.29 Active 8664665 1 SP Problem Post-traumatic stress disorder F43.10 Active 18747147 SP ALLERGIES No Information ENCOUNTERS Encounter Location Date Diagnosis POS [facility] [address] [facility] [id number] [address] [place] [phone] SP Jan, SP [facility] [address] [facility] [id number] [address] [place] [phone] SP Jan, SP [facility] [address] [facility] [id number] [address] [place] [phone] SP Jan, SP [facility] [address] [facility] [id number] [address] [place] [phone] SP Jan, SP [facility] [address] [facility] [id number] [address] [place] [phone] SP Jan, Slurred speech R47.81 ; Atax ia R27.0 and Left arm weakness SP [facility] [address] [facility] [id number] [address] [place] [phone] SP Jan, SP [facility] [address] [facility] [id number] [address] [place] [phone] SP Jan, Type 2 diabetes mellitus wit h hyperglycemia E11.65 and SP vomiting with nausea, unspecified vomiting type R11.2 [place] [address] [facility] [id number] [address] [place] [phone] SP Dec, CAD (coronary artery disease ) I25.10 and Atypical chest pain SP [facility] [address] [facility] [id number] [address] [place] [phone] SP Dec, SP [facility] [address] [facility] [id number] [address] [place] [phone] SP Dec, Diabetes E11.9 ; Type 2 diab etes mellitus with hyperglycemia SP and Intractable vomiting with nausea, unspecified vomiting type R11.2 [facility] [address] [facility] [id number] [address] [place] [phone] SP Dec, Chronic pain G89.29 SP [facility] [address] [facility] [id number] [address] [place] [phone] SP November, SP [facility] [address] 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 [id number] [address] [place] [phone] SP Oct, SP [facility] [address] [facility] [id number] [address] [place] [phone] SP Oct, Chronic pain G89.29 SP [facility] [address] [facility] [id number] [address] [place] [phone] SP Sep, Diabetes E11.9 SP [facility] [address] [facility] [id number] [address] [place] [phone] SP Sep, Chronic pain G89.29 SP [facility] [address] [facility] [id number] [address] [place] [phone] SP Sep, SP [facility] [address] [facility] [id number] [address] [place] [phone] SP Sep, Falls frequently R29.6 ; Elier g term 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.4 SP Type 2 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 E11.49 [facility] [address] [facility] [id number] [address] [place] [phone] SP Sep, SP [facility] [address] [facility] [id number] [address] [place] [phone] SP Sep, Diabetes E11.9 SP [facility] [address] [facility] [id number] [address] [place] [phone] SP Aug, SP [facility] [address] [facility] [id number] [address] [place] [phone] SP Aug, Chronic pain G89.29 SP [facility] [address] [facility] [id number] [address] [place] [phone] SP Aug, SP [facility] [address] [facility] [id number] [address] [place] [phone] SP Aug, Chronic pain G89.29 SP [facility] [address] [facility] [id number] [address] [place] [phone] SP Jul, SP [facility] [address] [facility] [id number] [address] [place] [phone] SP Jul, Diabetes E11.9 and Type 2 di abetes mellitus with other diabetic SP complication E11.29 [facility] [address] [facility] [id number] [address] [place] [phone] SP Jul, Type 2 diabetes mellitus wit h other diabetic kidney complication SP [facility] [address] [facility] [id number] [address] [place] [phone] SP Jul, SP [place] [address] [facility] [id number] [address] [place] [phone] SP Jul, Chronic pain G89.29 SP [place] [address] [facility] [id number] [address] [place] [phone] SP Jun, Diabetes E11.9 SP [place] [address] [facility] [id number] [address] [place] [phone] SP Jun, Chronic pain G89.29 [place] [address] [facility] [id number] [address] [place] [phone] SP Jun, Diabetes E11.9 ; Atypical ch est pain R07.89 ; termite treater helper current SP of insulin Z79.4 ; 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.29 ; Type 2 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 E11.49 ; History of pulmonary embolism Z86.711 and History of CVA (cerebrovascular accident) Z86.73 [place] [address] [facility] [id number] [address] [place] [phone] SP May, SP [place] [address] [facility] [id number] [address] [place] [phone] SP May, Chronic pain G89.29 SP [place] [address] [facility] [id number] [address] [place] [phone] SP Apr, Chronic pain G89.29 SP [place] [address] [facility] [id number] [address] [place] [phone] SP Apr, SP [facility] [address] [facility] [id number] [address] [place] [phone] SP 29 Mar, 2017 Chronic pain G89.29 SP [facility] [address] [facility] [id number] [address] [place] [phone] SP 18 Mar, 2017 Diabetes E11.9 SP [place] [address] [facility] [id number] [address] [place] [phone] SP 07 Mar, 2017 SP [place] [address] [facility] [id number] [address] [place] [phone] SP Mar, Degenerative disc disease, l umbar M51.36 SP [place] [address] [facility] [id number] [address] [place] [phone] SP Feb, Diabetes E11.9 SP [place] [address] [facility] [id number] [address] [place] [phone] SP 23 Feb, 2017 Diabetes E11.9 SP [place] [address] [facility] [id number] [address] [place] [phone] SP 16 Feb, 2017 Diabetes E11.9 ; HTN (hypert ension) I10 ; Diabetic neuropathy SP and Leg cramps R25.2 [place] [address] [facility] [id number] [address] [place] [phone] SP 15 Feb, 2017 Sprain of calcaneofibular li gament of right ankle, subsequent SP S93.411D ; Major depressive disorder, recurrent episode, moderate F33.1 ; Diabetes E11.9 ; Hyperlipidemia E78.5 ; Post-traumatic stress disorder F43.10 and Other irritable bowel syndrome K58.8 [place] [address] [facility] [id number] [address] [place] [phone] SP 14 Feb, 2017 Major depressive disorder, r ecurrent episode, moderate F33.1 ; SPtraumatic stress disorder F43.10 and Obsessive-compulsive disorder, unspecified type F42.9 [place] [address] [facility] [id number] [address] [place] [phone] SP Feb, SP [facility] [address] [id number] [address] [place] [phone] SP Feb, Post-traumatic stress disord er F43.10 and Major depressive SP recurrent, moderate F33.1 [facility] [address] [id number] [address] [place] [phone] SP Feb, Diabetes E11.9 SP [facility] [address] [id number] [address] [place] [phone] SP Feb, Degenerative disc disease, l umbar M51.36 SP [facility] [address] [id number] [address] [place] [phone] SP Feb, Post-traumatic stress disord er F43.10 and Major depressive SP recurrent, moderate F33.1 [facility] [address] [id number] [address] [place] [phone] SP Feb, SP [facility] [address] [id number] [address] [place] [phone] SP Feb, Diabetes E11.9 SP [facility] [address] [id number] [address] [place] [phone] SP Jan, Diabetes E11.9 SP [facility] [address] [facility] [id number] [address] [place] [phone] SP Jan, Post-traumatic stress disord er F43.10 and Major depressive SP recurrent, moderate F33.1 [facility] [address] [id number] [address] [place] [phone] SP Jan, Diabetes E11.9 SP [facility] [address] [id number] [address] [place] [phone] SP Jan, Diabetes E11.9 SP [facility] [address] [id number] [address] [place] [phone] SP Jan, SP [facility] [address] [facility] [id number] [address] [place] [phone] SP Jan, SP [facility] [address] [id number] [address] [place] [phone] SP Jan, Post-traumatic stress disord er F43.10 and Major depressive SP recurrent, moderate F33.1 [facility] [address] [id number] [address] [place] [phone] SP Jan, SP [facility] [address] [id number] [address] [place] [phone] SP Jan, Major depressive disorder, r ecurrent episode, moderate F33.1 ; SPtraumatic stress disorder F43.10 and Obsessive-compulsive disorder, unspecified type F42.9 [facility] [address] [id number] [address] [place] [phone] SP Jan, SP [facility] [address] [id number] [address] [place] [phone] SP Jan, Diabetes E11.9 SP [facility] [address] [id number] [address] [place] [phone] SP Jan, SP [facility] [address] [id number] [address] [place] [phone] SP Jan, Sprain of calcaneofibular li gament of right ankle, subsequent SP S93.411D [facility] [address] [id number] [address] [place] [phone] SP Jan, Post-traumatic stress disord er F43.10 and Major depressive SP recurrent, moderate F33.1 [facility] [address] [id number] [address] [place] [phone] SP Jan, Diabetes E11.9 SP [facility] [address] [id number] [address] [place] [phone] SP Dec, Major depressive disorder, r ecurrent episode, moderate F33.1 ; SPtraumatic stress disorder F43.10 and Obsessive-compulsive disorder, unspecified type F42.9 [facility] [address] [id number] [address] [place] [phone] SP 15 Dec, 2016 SP [facility] [address] [facility] [id number] [address] [place] [phone] SP 14 Dec, 2016 Sprain of calcaneofibular li gament of right ankle, subsequent SP S93.411D [facility] [address] [facility] [id number] [address] [place] [phone] SP 13 Dec, 2016 Post-traumatic stress disord er F43.10 and Major depressive SP recurrent, moderate F33.1 [facility] [address] [id number] [address] [place] [phone] SP 13 Dec, 2016 Sprain of calcaneofibular li gament of right ankle, subsequent SP S93.411D [facility] [address] [facility] [id number] [address] [place] [phone] SP Dec, Hyperlipidemia E78.5 SP [facility] [address] [facility] [id number] [address] [place] [phone] SP Dec, SP [facility] [address] [facility] [id number] [address] [place] [phone] SP Dec, Diabetes E11.9 ; Diabetic ne uropathy E11.40 ; Degenerative disc SP lumbar M51.36 ; Hyperlipidemia E78.5 ; Insomnia G47.00 ; CAD (coronary artery disease) I25.10 ; Major depressive disorder, recurrent, moderate F33.1 ; Post- traumatic stress disorder F43.10 and Other irritable bowel syndrome K58.8 [facility] [address] [facility] [id number] [address] [place] [phone] SP November, Diabetic neuropathy E11.40 a nd Hyperlipidemia E78.5 SP [facility] [address] [facility] [id number] [address] [place] [phone] SP November, Degenerative disc disease, l umbar M51.36 SP [facility] [address] [facility] [id number] [address] [place] [phone] SP Oct, SP [facility] [address] [facility] [id number] [address] [place] [phone] SP Oct, Degenerative disc disease, l umbar M51.36 SP [facility] [address] [facility] [id number] [place] [phone] SP Sep, Degenerative disc disease, l umbar M51.36 and HTN (hypertension) SP [facility] [address] [facility] [id number] [place] [phone] SP Sep, Diabetic neuropathy E11.40 ; HTN (hypertension) I10 ; SP disc disease, lumbar M51.36 ; Hyperlipidemia E78.5 ; Insomnia G47.00 ; CAD (coronary artery disease) I25.10 and Diabetes E11.9 [facility] [address] [facility] [id number] [place] [phone] SP Aug, SP [facility] [address] [place] [id number] [place] [phone] SP Aug, Type 2 diabetes mellitus wit h hyperglycemia E11.65 SP [facility] [address] [facility] [id number] [place] [phone] SP Aug, SP [facility] [address] [place] [id number] [place] [phone] SP Jul, SP [facility] [address] [facility] [id number] [address] [place] [phone] SP Jul, SP [facility] [address] [place] [id number] [address] [place] [phone] SP Jun, SP [facility] [address] [facility] [id number] [address] [place] [phone] SP Jun, SP [facility] [address] [place] [id number] [address] [place] [phone] SP Jun, SP [facility] [address] [place] [id number] [address] [place] [phone] SP Jun, SP [place] [id number] [facility] [id number] [address] [place] [phone] SP May, Major depressive disorder, r ecurrent episode, moderate F33.1 and SPtraumatic stress disorder F43.10 [place] [address] [facility] [id number] [address] [place] [phone] SP May, Major depressive disorder, r ecurrent episode, moderate F33.1 and SPtraumatic stress disorder F43.10 [place] [address] [facility] [id number] [address] [place] [phone] SP May, Diabetes E11.9 ; Diabetic ne uropathy E11.40 ; HTN (hypertension) SP ; Gastritis K29.70 ; Hyperlipidemia E78.5 ; Insomnia G47.00 and Major depressive disorder, recurrent, moderate F33.1 [place] [address] [facility] [id number] [address] [place] [phone] SP May, Major depressive disorder, r ecurrent episode, moderate F33.1 SP [place] [address] [facility] [id number] [address] [place] [phone] SP Apr, SP [place] [address] [facility] [id number] [address] [place] [phone] SP Apr, Major depressive disorder, r ecurrent episode, moderate F33.1 and SPtraumatic stress disorder F43.10 [place] [address] [facility] [id number] [address] [place] [phone] SP Apr, Diabetes E11.9 ; Diabetic ne uropathy E11.40 ; Degenerative disc SP lumbar M51.36 ; HTN (hypertension) I10 ; Hyperlipidemia E78.5 ; Chronic pain G89.29 ; CAD (coronary artery disease) I25.10 and Major depressive disorder, recurrent, moderate F33.1 [place] [address] [facility] [id number] [address] [place] [phone] SP Apr, Major depressive disorder, r ecurrent episode, moderate F33.1 and SPtraumatic stress disorder F43.10 [place] [address] [facility] [id number] [address] [place] [phone] SP Apr, Major depressive disorder, r ecurrent episode, moderate F33.1 and SPtraumatic stress disorder F43.10 [facility] [address] [facility] [id number] [address] [place] [phone] SP Apr, Major depressive disorder, r ecurrent episode, moderate F33.1 and SP episodic mood disorder F39 [place] [id number] [place] [id number] [address] [place] [phone] SP Apr, Chronic pain G89.29 ; Diabet ic neuropathy E11.40 ; HTN SP I10 ; Insomnia G47.00 ; CAD (coronary artery disease) I25.10 ; Hyperlipidemia E78.5 ; Degenerative disc disease, lumbar M51.36 ; Diabetes E11.9 and Gastritis K29.70 [place] [address] [place] [id number] [address] [place] [phone] SP Sep, SP [facility] [address] [place] [id number] [address] [place] [phone] SP Aug, SP [facility] [address] [place] [id number] [address] [place] [phone] SP Jul, Major depressive disorder, r ecurrent episode, moderate F33.1 SP [facility] [address] [facility] [id number] [address] [place] [phone] SP Jul, Unspecified episodic mood di sorder F39 SP [facility] [address] [facility] [id number] [address] [place] [phone] SP Jul, SP [facility] [address] [facility] [id number] [address] [place] [phone] SP Jul, SP [facility] [address] [place] [id number] [address] [place] [phone] SP Jul, SP [facility] [address] [place] [id number] [address] [place] [phone] SP Jul, Type 2 diabetes mellitus wit h hyperglycemia E11.65 ; Diabetic SP E11.40 ; Degenerative disc disease, lumbar M51.36 ; HTN (hypertension) I10 ; Gastritis K29.70 ; Hyperlipidemia E78.5 and CAD (coronary artery disease) I25.10 [facility] [address] [place] [id number] [address] [place] [phone] SP Jul, Severe episode of recurrent major depressive disorder, without SP features F33.2 [facility] [address] [place] [id number] [place] [phone] SP Jul, SP [facility] [address] [place] [id number] [place] [phone] SP Jun, SP [facility] [address] [facility] [id number] [place] [phone] SP Jun, Diabetes E11.9 ; Diabetic ne uropathy E11.40 ; Degenerative disc SP lumbar M51.36 ; HTN (hypertension) I10 ; Gastritis K29.70 ; Hyperlipidemia E78.5 ; Unspecified episodic mood disorder F39 ; Depression F32.9 and CAD (coronary artery disease) I25.10 [place] [id number] [facility] [id number] [address] [place] [phone] SP Jun, SP [facility] [address] [place] [id number] [place] [phone] SP Jun, SP [place] [id number] [phone] SP Jun, Diabetes E11.9 ; Diabetic ne uropathy E11.40 ; Degenerative disc SP lumbar M51.36 ; HTN (hypertension) I10 ; Gastritis K29.70 ; Chronic pain G89.29 ; Insomnia G47.00 and Unspecified episodic mood disorder F39 [place] [id number] [facility] [id number] [address] [place] [phone] SP May, Diabetic neuropathy E11.40 ; Degenerative disc disease, lumbar SP ; HTN (hypertension) I10 ; Gastritis K29.70 ; Hyperlipidemia E78.5 ; Chronic pain G89.29 ; Insomnia G47.00 ; Unspecified episodic mood disorder F39 ; Diabetes E11.9 ; CAD (coronary artery disease) I25.10 and H/O Gram positive sepsis Z86.19 [facility] [address] [facility] [id number] [address] [place] [phone] SP May, SP [facility] [address] [facility] [id number] [address] [place] [phone] SP May, SP [facility] [address] [facility] [id number] [address] [place] [phone] SP May, SP [facility] [address] [facility] [id number] [address] [place] [phone] SP May, SP [facility] [address] [facility] [id number] [address] [place] [phone] SP May, Diabetes E11.9 ; Chronic cachorro n G89.29 ; UTI (urinary tract SP N39.0 ; Hyperlipidemia E78.5 and Diabetic neuropathy E11.40 [facility] [address] [facility] [id number] [address] [place] [phone] SP May, Insomnia, unspecified G47.00 and Chronic pain G89.29 SP [facility] [address] [facility] [id number] [address] [place] [phone] SP May, SP [facility] [address] [facility] [id number] [address] [place] [phone] SP May, SP [facility] [address] [facility] [id number] [address] [place] [phone] SP May, SP [facility] [address] [facility] [id number] [address] [place] [phone] SP Apr, Insomnia, unspecified G47.00 ; Chronic pain G89.29 and SP episodic mood disorder F39 [facility] [address] [facility] [id number] [address] [place] [phone] SP Apr, Unspecified episodic mood di sorder F39 SP [facility] [address] [phone] SP Apr, Major depression F32.9 SP [facility] [address] [phone] SP Apr, SP [facility] [address] [phone] SP Apr, Diabetes E11.9 ; Diabetic ne uropathy E11.40 ; Degenerative disc SP lumbar M51.36 ; HTN (hypertension) I10 ; Gastritis K29.70 ; Hyperlipidemia E78.5 ; Chronic pain G89.29 and Insomnia G47.00 [facility] [address] [id number] SP Mar, SP [facility] [address] [phone] SP Mar, SP [facility] [address] [phone] SP Mar, SP [facility] [address] [phone] SP Mar, Diabetes mellitus 250.00 ; D iabetic neuropathy 250.60 ; CAD SP artery disease) 414.00 ; Degenerative disc disease, lumbar 722.52 ; Gastritis 535.50 and Insomnia 780.52 [facility] [address] [place] [id number] [address] [place] [phone] SP Mar, Diabetes mellitus 250.00 ; D egenerative disc disease, lumbar SP ; Essential hypertension 401.9 ; Gastritis 535.50 and Chronic pain 338.29 [facility] [address] [phone] SP Feb, SP [facility] [address] [phone] SP Feb, SP [facility] [address] [place] [id number] [address] [place] [phone] SP Jan, SP [facility] [id number] [place] [phone] SP Jan, Diabetes mellitus 250.00 ; D iabetic neuropathy 250.60 ; SP disc disease, lumbar 722.52 ; CAD (coronary artery disease) 414.00 ; Essential hypertension 401.9 ; Gastritis 535.50 ; Hyperlipidemia 272.4 and Distal end of ulna fracture, closed 813.43 [facility] [address] [place] [id number] [address] [place] [phone] SP Dec, Wrist pain 719.43 and Diabet es mellitus 250.00 SP [facility] [address] [facility] [id number] [address] [place] [phone] SP May, SP [facility] [address] [facility] [id number] [address] [place] [phone] SP Dec, SP [facility] [address] [place] [id number] [address] [place] [phone] SP November, SP [facility] [address] [facility] [id number] [address] [place] [phone] SP Oct, SP [facility] [address] [place] [id number] [address] [place] [phone] SP Sep, SP [facility] [address] [facility] [id number] [address] [place] [phone] SP Sep, SP [facility] [address] [place] [id number] [address] [place] [phone] SP Jun, SP [facility] [address] [facility] [id number] [address] [place] [phone] SP Jun, SP [facility] [address] [place] [id number] [address] [place] [phone] SP Jun, SP [facility] [address] [facility] [id number] [address] [place] [phone] SP Jun, SP [facility] [address] [place] [id number] [address] [place] [phone] SP Jun, SP [facility] [address] [facility] [id number] [address] [place] [phone] SP Jun, SP [facility] [address] [facility] [id number] [address] [place] [phone] SP Jun, SP [facility] [address] [facility] [id number] [address] [place] [phone] SP May, SP [facility] [address] [facility] [id number] [address] [place] [phone] SP May, SP [facility] [address] [facility] [id number] [address] [place] [phone] SP May, SP [facility] [address] [facility] [id number] [address] [place] [phone] SP May, SP [facility] [address] [facility] [id number] [address] [place] [phone] SP Apr, SP [facility] [address] [facility] [id number] [address] [place] [phone] SP Apr, SP [facility] [address] [facility] [id number] [address] [place] [phone] SP Apr, SP [facility] [address] [facility] [id number] [address] [place] [phone] SP Mar, SP [facility] [address] [facility] [id number] [address] [place] [phone] SP Dec, SP IMMUNIZATIONS No Known Immunizations SOCIAL HISTORY Never Assessed REASON FOR VISIT Controlled Med Refill - 10/07/17 PLAN OF CARE VITAL SIGNS MEDICATIONS Medication Instructions Dosage Frequency Start Date End Date Duration S tatus POS Hydrocodone-Acetaminophen 10-325 MG Orally 3 times a day 1 tablet a s needed 8h SP Sep, 2017 28 days Active SP RESULTS No [...]
--- OUTSIDE RECORDS SUMMARY | 2019-06-14 01:42 | XMS REPORT ---
Author Author JALEN PEREZ POS Organization [facility] SP Address [address] [place] [address] SP Care Team Providers Care Planer Tailer Name Role Phone POS ANAFLAQUITOY Unavailable SP PROBLEMS Type Condition ICD9-CM Code UMW26-TL Code Onset Dates Condition S tatus SNOMED POS Problem Type 2 diabetes mellitus with hyperglycemia E11.65 Active POS Problem Major depressive disorder, recurrent episode, moderate F33.1 Active SP Problem Obsessive-compulsive disorder, unspecified type F4 2.9 Active SP Problem Ataxia R27.0 Active [id number] SP Problem Falls frequently R29.6 Active 279 986636 SP Problem Type 2 diabetes mellitus with other diab etic neurological complication SP E11.49 Active 46171100 SP Problem 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.4 Active 478106679 SP Problem History of pulmonary embolism Z86.711 Active 651120763 SP Problem Type 2 diabetes mellitus with other diabetic kid allen complication SP Active 89601461 SP Problem Insomnia G47.00 Active 052513191 SP Problem Degenerative disc disease, lumbar M51.36 Active 47720617 SP Problem HTN (hypertension) I10 Active 3 1402211 SP Problem Hyperlipidemia E78.5 Active 48265 004 SP Problem CAD (coronary artery disease) I25.10 Active 81917050 SP Problem Chronic pain G89.29 Active 9196172 1 SP Problem Post-traumatic stress disorder F43.10 Active 04924392 SP ALLERGIES No Information ENCOUNTERS Encounter Location Date Diagnosis POS [facility] [address] [facility] [id number] [address] [place] [phone] SP Jan, SP [facility] [address] [facility] [id number] [address] [place] [phone] SP Jan, SP [facility] [address] [facility] [id number] [address] [place] [phone] SP Jan, SP [facility] [address] [facility] [id number] [address] [place] [phone] SP Jan, SP [facility] [address] [facility] [id number] [address] [place] [phone] SP Jan, Slurred speech R47.81 ; Atax ia R27.0 and Left arm weakness SP [facility] [address] [facility] [id number] [address] [place] [phone] SP Jan, SP [facility] [address] [facility] [id number] [address] [place] [phone] SP Jan, Type 2 diabetes mellitus wit h hyperglycemia E11.65 and SP vomiting with nausea, unspecified vomiting type R11.2 [place] [address] [address] [facility] [id number] [address] [place] [phone] SP Dec, CAD (coronary artery disease ) I25.10 and Atypical chest pain SP [facility] [address] [facility] [id number] [address] [place] [phone] SP Dec, SP [facility] [address] [facility] [id number] [address] [place] [phone] SP Dec, Diabetes E11.9 ; Type 2 diab etes mellitus with hyperglycemia SP and Intractable vomiting with nausea, unspecified vomiting type R11.2 [facility] [address] [facility] [id number] [address] [place] [phone] SP Dec, Chronic pain G89.29 SP [facility] [address] [facility] [id number] [address] [place] [phone] SP November, SP [facility] [address] [facility] [id number] [address] [place] [phone] SP November, Diabetes E11.9 ; CAD (trin[place] ry artery disease) I25.10 ; Atypical SP pain R07.89 ; Type 2 diabetes mellitus with hyperglycemia E11.65 ; 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.29 ; 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.4 and Chronic pain G89.29 [facility] [address] [facility] [id number] [address] [place] [phone] SP Oct, SP [facility] [address] [facility] [id number] [address] [place] [phone] SP Oct, Chronic pain G89.29 SP [facility] [address] [facility] [id number] [address] [place] [phone] SP Sep, Diabetes E11.9 SP [facility] [address] [facility] [id number] [address] [place] [phone] SP Sep, Chronic pain G89.29 SP [facility] [address] [facility] [id number] [address] [place] [phone] SP Sep, SP [facility] [address] [facility] [id number] [address] [place] [phone] SP Sep, Falls frequently R29.6 ; Elier g term 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.4 SP Type 2 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 E11.49 [facility] [address] [facility] [id number] [address] [place] [phone] SP Sep, SP [facility] [address] [facility] [id number] [address] [place] [phone] SP Sep, Diabetes E11.9 SP [facility] [address] [facility] [id number] [address] [place] [phone] SP Aug, SP [facility] [address] [facility] [id number] [address] [place] [phone] SP Aug, Chronic pain G89.29 SP [facility] [address] [facility] [id number] [address] [place] [phone] SP Aug, SP [facility] [address] [facility] [id number] [address] [place] [phone] SP Aug, Chronic pain G89.29 SP [facility] [address] [facility] [id number] [address] [place] [phone] SP Jul, SP [facility] [address] [facility] [id number] [address] [place] [phone] SP Jul, Diabetes E11.9 and Type 2 di abetes mellitus with other diabetic SP complication E11.29 [facility] [address] [facility] [id number] [address] [place] [phone] SP Jul, Type 2 diabetes mellitus wit h other diabetic kidney complication SP [facility] [address] [facility] [id number] [address] [place] [phone] SP Jul, SP [place] [address] [facility] [id number] [address] [place] [phone] SP Jul, Chronic pain G89.29 SP [place] [address] [facility] [id number] [address] [place] [phone] SP Jun, Diabetes E11.9 SP [place] [address] [facility] [id number] [address] [place] [phone] SP Jun, Chronic pain G89.29 [place] [address] [facility] [id number] [address] [place] [phone] SP Jun, Diabetes E11.9 ; Atypical ch est pain R07.89 ; long term care social worker current SP of insulin Z79.4 ; 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.29 ; Type 2 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 E11.49 ; History of pulmonary embolism Z86.711 and History of CVA (cerebrovascular accident) Z86.73 [place] [address] [address] [facility] [id number] [address] [place] [phone] SP May, SP [place] [address] [address] [facility] [id number] [address] [place] [phone] SP May, Chronic pain G89.29 SP [place] [address] [address] [facility] [id number] [address] [place] [phone] SP Apr, Chronic pain G89.29 SP [place] [address] [facility] [id number] [address] [place] [phone] SP Apr, SP [facility] [address] [facility] [id number] [address] [place] [phone] SP 29 Mar, 2017 Chronic pain G89.29 SP [facility] [address] [facility] [id number] [address] [place] [phone] SP 18 Mar, 2017 Diabetes E11.9 SP [place] [address] [facility] [id number] [address] [place] [phone] SP 07 Mar, 2017 SP [place] [address] [address] [facility] [id number] [address] [place] [phone] SP Mar, Degenerative disc disease, l umbar M51.36 SP [place] [address] [address] [facility] [id number] [address] [place] [phone] SP Feb, Diabetes E11.9 SP [place] [address] [facility] [id number] [address] [place] [phone] SP 23 Feb, 2017 Diabetes E11.9 SP [place] [address] [facility] [id number] [address] [place] [phone] SP 16 Feb, 2017 Diabetes E11.9 ; HTN (hypert ension) I10 ; Diabetic neuropathy SP and Leg cramps R25.2 [place] [address] [address] [facility] [id number] [address] [place] [phone] SP 15 Feb, 2017 Sprain of calcaneofibular li gament of right ankle, subsequent SP S93.411D ; Major depressive disorder, recurrent episode, moderate F33.1 ; Diabetes E11.9 ; Hyperlipidemia E78.5 ; Post-traumatic stress disorder F43.10 and Other irritable bowel syndrome K58.8 [place] [address] [address] [facility] [id number] [address] [place] [phone] SP 14 Feb, 2017 Major depressive disorder, r ecurrent episode, moderate F33.1 ; SPtraumatic stress disorder F43.10 and Obsessive-compulsive disorder, unspecified type F42.9 [place] [address] [address] [facility] [id number] [address] [place] [phone] SP Feb, SP [facility] [address] [id number] [address] [place] [phone] SP Feb, Post-traumatic stress disord er F43.10 and Major depressive SP recurrent, moderate F33.1 [facility] [address] [id number] [address] [place] [phone] SP Feb, Diabetes E11.9 SP [facility] [address] [id number] [address] [place] [phone] SP Feb, Degenerative disc disease, l umbar M51.36 SP [facility] [address] [id number] [address] [place] [phone] SP Feb, Post-traumatic stress disord er F43.10 and Major depressive SP recurrent, moderate F33.1 [facility] [address] [id number] [address] [place] [phone] SP Feb, SP [facility] [address] [id number] [address] [place] [phone] SP Feb, Diabetes E11.9 SP [facility] [address] [id number] [address] [place] [phone] SP Jan, Diabetes E11.9 SP [facility] [address] [facility] [id number] [address] [place] [phone] SP Jan, Post-traumatic stress disord er F43.10 and Major depressive SP recurrent, moderate F33.1 [facility] [address] [id number] [address] [place] [phone] SP Jan, Diabetes E11.9 SP [facility] [address] [id number] [address] [place] [phone] SP Jan, Diabetes E11.9 SP [facility] [address] [id number] [address] [place] [phone] SP Jan, SP [facility] [address] [facility] [id number] [address] [place] [phone] SP Jan, SP [facility] [address] [id number] [address] [place] [phone] SP Jan, Post-traumatic stress disord er F43.10 and Major depressive SP recurrent, moderate F33.1 [facility] [address] [id number] [address] [place] [phone] SP Jan, SP [facility] [address] [id number] [address] [place] [phone] SP Jan, Major depressive disorder, r ecurrent episode, moderate F33.1 ; SPtraumatic stress disorder F43.10 and Obsessive-compulsive disorder, unspecified type F42.9 [facility] [address] [id number] [address] [place] [phone] SP Jan, SP [facility] [address] [id number] [address] [place] [phone] SP Jan, Diabetes E11.9 SP [facility] [address] [id number] [address] [place] [phone] SP Jan, SP [facility] [address] [id number] [address] [place] [phone] SP Jan, Sprain of calcaneofibular li gament of right ankle, subsequent SP S93.411D [facility] [address] [id number] [address] [place] [phone] SP Jan, Post-traumatic stress disord er F43.10 and Major depressive SP recurrent, moderate F33.1 [facility] [address] [id number] [address] [place] [phone] SP Jan, Diabetes E11.9 SP [facility] [address] [id number] [address] [place] [phone] SP Dec, Major depressive disorder, r ecurrent episode, moderate F33.1 ; SPtraumatic stress disorder F43.10 and Obsessive-compulsive disorder, unspecified type F42.9 [facility] [address] [id number] [address] [place] [phone] SP 15 Dec, 2016 SP [facility] [address] [facility] [id number] [address] [place] [phone] SP 14 Dec, 2016 Sprain of calcaneofibular li gament of right ankle, subsequent SP S93.411D [facility] [address] [facility] [id number] [address] [place] [phone] SP 13 Dec, 2016 Post-traumatic stress disord er F43.10 and Major depressive SP recurrent, moderate F33.1 [facility] [address] [id number] [address] [place] [phone] SP 13 Dec, 2016 Sprain of calcaneofibular li gament of right ankle, subsequent SP S93.411D [facility] [address] [facility] [id number] [address] [place] [phone] SP Dec, Hyperlipidemia E78.5 SP [facility] [address] [facility] [id number] [address] [place] [phone] SP Dec, SP [facility] [address] [facility] [id number] [address] [place] [phone] SP Dec, Diabetes E11.9 ; Diabetic ne uropathy E11.40 ; Degenerative disc SP lumbar M51.36 ; Hyperlipidemia E78.5 ; Insomnia G47.00 ; CAD (coronary artery disease) I25.10 ; Major depressive disorder, recurrent, moderate F33.1 ; Post- traumatic stress disorder F43.10 and Other irritable bowel syndrome K58.8 [facility] [address] [facility] [id number] [address] [place] [phone] SP November, Diabetic neuropathy E11.40 a nd Hyperlipidemia E78.5 SP [facility] [address] [facility] [id number] [address] [place] [phone] SP November, Degenerative disc disease, l umbar M51.36 SP [facility] [address] [facility] [id number] [address] [place] [phone] SP Oct, SP [facility] [address] [facility] [id number] [address] [place] [phone] SP Oct, Degenerative disc disease, l umbar M51.36 SP [facility] [address] [facility] [id number] [place] [phone] SP Sep, Degenerative disc disease, l umbar M51.36 and HTN (hypertension) SP [facility] [address] [facility] [id number] [place] [phone] SP Sep, Diabetic neuropathy E11.40 ; HTN (hypertension) I10 ; SP disc disease, lumbar M51.36 ; Hyperlipidemia E78.5 ; Insomnia G47.00 ; CAD (coronary artery disease) I25.10 and Diabetes E11.9 [facility] [address] [facility] [id number] [place] [phone] SP Aug, SP [facility] [address] [place] [id number] [place] [phone] SP Aug, Type 2 diabetes mellitus wit h hyperglycemia E11.65 SP [facility] [address] [facility] [id number] [place] [phone] SP Aug, SP [facility] [address] [place] [id number] [place] [phone] SP Jul, SP [facility] [address] [facility] [id number] [address] [place] [phone] SP Jul, SP [facility] [address] [place] [id number] [address] [place] [phone] SP Jun, SP [facility] [address] [facility] [id number] [address] [place] [phone] SP Jun, SP [facility] [address] [place] [id number] [address] [place] [phone] SP Jun, SP [facility] [address] [place] [id number] [address] [place] [phone] SP Jun, SP [place] [address] [facility] [id number] [address] [place] [phone] SP May, Major depressive disorder, r ecurrent episode, moderate F33.1 and SPtraumatic stress disorder F43.10 [place] [address] [address] [facility] [id number] [address] [place] [phone] SP May, Major depressive disorder, r ecurrent episode, moderate F33.1 and SPtraumatic stress disorder F43.10 [place] [address] [address] [facility] [id number] [address] [place] [phone] SP May, Diabetes E11.9 ; Diabetic ne uropathy E11.40 ; HTN (hypertension) SP ; Gastritis K29.70 ; Hyperlipidemia E78.5 ; Insomnia G47.00 and Major depressive disorder, recurrent, moderate F33.1 [place] [address] [address] [facility] [id number] [address] [place] [phone] SP May, Major depressive disorder, r ecurrent episode, moderate F33.1 SP [place] [address] [address] [facility] [id number] [address] [place] [phone] SP Apr, SP [place] [address] [address] [facility] [id number] [address] [place] [phone] SP Apr, Major depressive disorder, r ecurrent episode, moderate F33.1 and SPtraumatic stress disorder F43.10 [place] [address] [address] [facility] [id number] [address] [place] [phone] SP Apr, Diabetes E11.9 ; Diabetic ne uropathy E11.40 ; Degenerative disc SP lumbar M51.36 ; HTN (hypertension) I10 ; Hyperlipidemia E78.5 ; Chronic pain G89.29 ; CAD (coronary artery disease) I25.10 and Major depressive disorder, recurrent, moderate F33.1 [place] [address] [address] [facility] [id number] [address] [place] [phone] SP Apr, Major depressive disorder, r ecurrent episode, moderate F33.1 and SPtraumatic stress disorder F43.10 [place] [address] [address] [facility] [id number] [address] [place] [phone] SP Apr, Major depressive disorder, r ecurrent episode, moderate F33.1 and SPtraumatic stress disorder F43.10 [facility] [address] [facility] [id number] [address] [place] [phone] SP Apr, Major depressive disorder, r ecurrent episode, moderate F33.1 and SP episodic mood disorder F39 [place] [address] [place] [id number] [address] [place] [phone] SP Apr, Chronic pain G89.29 ; Diabet ic neuropathy E11.40 ; HTN SP I10 ; Insomnia G47.00 ; CAD (coronary artery disease) I25.10 ; Hyperlipidemia E78.5 ; Degenerative disc disease, lumbar M51.36 ; Diabetes E11.9 and Gastritis K29.70 [place] [address] [address] [place] [id number] [address] [place] [phone] SP Sep, SP [facility] [address] [place] [id number] [address] [place] [phone] SP Aug, SP [facility] [address] [place] [id number] [address] [place] [phone] SP Jul, Major depressive disorder, r ecurrent episode, moderate F33.1 SP [facility] [address] [facility] [id number] [address] [place] [phone] SP Jul, Unspecified episodic mood di sorder F39 SP [facility] [address] [facility] [id number] [address] [place] [phone] SP Jul, SP [facility] [address] [facility] [id number] [address] [place] [phone] SP Jul, SP [facility] [address] [place] [id number] [address] [place] [id number] SP Jul, SP [facility] [address] [place] [id number] [address] [place] [id number] SP Jul, Type 2 diabetes mellitus wit h hyperglycemia E11.65 ; Diabetic SP E11.40 ; Degenerative disc disease, lumbar M51.36 ; HTN (hypertension) I10 ; Gastritis K29.70 ; Hyperlipidemia E78.5 and CAD (coronary artery disease) I25.10 [facility] [address] [place] [id number] [address] [place] [phone] SP Jul, Severe episode of recurrent major depressive disorder, without SP features F33.2 [facility] [address] [place] [id number] [place] [phone] SP Jul, SP [facility] [address] [place] [id number] [place] [phone] SP Jun, SP [facility] [address] [facility] [id number] [place] [phone] SP Jun, Diabetes E11.9 ; Diabetic ne uropathy E11.40 ; Degenerative disc SP lumbar M51.36 ; HTN (hypertension) I10 ; Gastritis K29.70 ; Hyperlipidemia E78.5 ; Unspecified episodic mood disorder F39 ; Depression F32.9 and CAD (coronary artery disease) I25.10 [place] [id number] [facility] [id number] [address] [place] [phone] SP Jun, SP [facility] [address] [place] [id number] [place] [phone] SP Jun, SP [place] [address] [phone] SP Jun, Diabetes E11.9 ; Diabetic ne uropathy E11.40 ; Degenerative disc SP lumbar M51.36 ; HTN (hypertension) I10 ; Gastritis K29.70 ; Chronic pain G89.29 ; Insomnia G47.00 and Unspecified episodic mood disorder F39 [place] [address] [facility] [id number] [address] [place] [phone] SP May, Diabetic neuropathy E11.40 ; Degenerative disc disease, lumbar SP ; HTN (hypertension) I10 ; Gastritis K29.70 ; Hyperlipidemia E78.5 ; Chronic pain G89.29 ; Insomnia G47.00 ; Unspecified episodic mood disorder F39 ; Diabetes E11.9 ; CAD (coronary artery disease) I25.10 and H/O Gram positive sepsis Z86.19 [facility] [address] [facility] [id number] [address] [place] [phone] SP May, SP [facility] [address] [facility] [id number] [address] [place] [phone] SP May, SP [facility] [address] [facility] [id number] [address] [place] [phone] SP May, SP [facility] [address] [facility] [id number] [address] [place] [phone] SP May, SP [facility] [address] [facility] [id number] [address] [place] [phone] SP May, Diabetes E11.9 ; Chronic cachorro n G89.29 ; UTI (urinary tract SP N39.0 ; Hyperlipidemia E78.5 and Diabetic neuropathy E11.40 [facility] [address] [facility] [id number] [address] [place] [phone] SP May, Insomnia, unspecified G47.00 and Chronic pain G89.29 SP [facility] [address] [facility] [id number] [address] [place] [phone] SP May, SP [facility] [address] [facility] [id number] [address] [place] [phone] SP May, SP [facility] [address] [facility] [id number] [address] [place] [phone] SP May, SP [facility] [address] [facility] [id number] [address] [place] [phone] SP Apr, Insomnia, unspecified G47.00 ; Chronic pain G89.29 and SP episodic mood disorder F39 [facility] [address] [facility] [id number] [address] [place] [phone] SP Apr, Unspecified episodic mood di sorder F39 SP [facility] [address] [id number] SP Apr, Major depression F32.9 SP [facility] [address] [phone] SP Apr, SP [facility] [address] [phone] SP Apr, Diabetes E11.9 ; Diabetic ne uropathy E11.40 ; Degenerative disc SP lumbar M51.36 ; HTN (hypertension) I10 ; Gastritis K29.70 ; Hyperlipidemia E78.5 ; Chronic pain G89.29 and Insomnia G47.00 [facility] [address] [phone] SP Mar, SP [facility] [address] [id number] SP Mar, SP [facility] [address] [phone] SP Mar, SP [facility] [address] [id number] SP Mar, Diabetes mellitus 250.00 ; D iabetic neuropathy 250.60 ; CAD SP artery disease) 414.00 ; Degenerative disc disease, lumbar 722.52 ; Gastritis 535.50 and Insomnia 780.52 [facility] [address] [place] [id number] [address] [place] [phone] SP Mar, Diabetes mellitus 250.00 ; D egenerative disc disease, lumbar SP ; Essential hypertension 401.9 ; Gastritis 535.50 and Chronic pain 338.29 [facility] [address] [phone] SP Feb, SP [facility] [address] [phone] SP Feb, SP [facility] [address] [place] [id number] [address] [place] [phone] SP Jan, SP [facility] [id number] [place] [phone] SP Jan, Diabetes mellitus 250.00 ; D iabetic neuropathy 250.60 ; SP disc disease, lumbar 722.52 ; CAD (coronary artery disease) 414.00 ; Essential hypertension 401.9 ; Gastritis 535.50 ; Hyperlipidemia 272.4 and Distal end of ulna fracture, closed 813.43 [facility] [address] [place] [id number] [address] [place] [phone] SP Dec, Wrist pain 719.43 and Diabet es mellitus 250.00 SP [facility] [address] [facility] [id number] [address] [place] [phone] SP May, SP [facility] [address] [facility] [id number] [address] [place] [phone] SP Dec, SP [facility] [address] [place] [id number] [address] [place] [phone] SP November, SP [facility] [address] [facility] [id number] [address] [place] [phone] SP Oct, SP [facility] [address] [place] [id number] [address] [place] [phone] SP Sep, SP [facility] [address] [facility] [id number] [address] [place] [phone] SP Sep, SP [facility] [address] [place] [id number] [address] [place] [phone] SP Jun, SP [facility] [address] [facility] [id number] [address] [place] [phone] SP Jun, SP [facility] [address] [place] [id number] [address] [place] [phone] SP Jun, SP [facility] [address] [facility] [id number] [address] [place] [phone] SP Jun, SP [facility] [address] [place] [id number] [address] [place] [phone] SP Jun, SP [facility] [address] [id number] [address] [place] [phone] SP Jun, SP [facility] [address] [facility] [id number] [address] [place] [phone] SP Jun, SP [facility] [address] [facility] [id number] [address] [place] [phone] SP May, SP [facility] [address] [id number] [address] [place] [phone] SP May, SP [facility] [address] [facility] [id number] [address] [place] [phone] SP May, SP [facility] [address] [facility] [id number] [address] [place] [phone] SP May, SP [facility] [address] [facility] [id number] [address] [place] [phone] SP Apr, SP [facility] [address] [id number] [address] [place] [phone] SP Apr, SP [facility] [address] [facility] [id number] [address] [place] [phone] SP Apr, SP [facility] [address] [facility] [id number] [address] [place] [phone] SP Mar, SP [facility] [address] [facility] [id number] [address] [place] [phone] SP Dec, SP IMMUNIZATIONS No Known Immunizations SOCIAL HISTORY Never Assessed REASON FOR VISIT Lab (walk-in) PLAN OF CARE VITAL SIGNS MEDICATIONS Unknown Medications RESULTS No Results PROCEDURES Procedure Date Ordered Result Body Site POS LAB NOT BILLED BY [facility] October 07, 2017 SP VENIPUNCT, ROUTINE* October 07, 2017 SP INSTRUCTIONS MEDICATIONS ADMINISTERED No Known [...]
--- OUTSIDE RECORDS SUMMARY | 2019-06-14 01:43 | XMS REPORT ---
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 Name Role Phone POS ANAFLAQUITOY Unavailable SP PROBLEMS Type Condition ICD9-CM Code [id number] Code Onset Dates Condition S tatus SNOMED POS Problem Type 2 diabetes mellitus with hyperglycemia E11.65 Active POS Problem Major depressive disorder, recurrent episode, moderate F33.1 Active SP Problem Obsessive-compulsive disorder, unspecified type F4 2.9 Active SP Problem Ataxia R27.0 Active [id number] SP Problem Falls frequently R29.6 Active [id number] SP Problem Type 2 diabetes mellitus with other diab etic neurological complication SP E11.49 Active 46087427 SP Problem roasterman 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.4 Active 113349948 SP Problem History of pulmonary embolism Z86.711 Active 474249091 SP Problem Type 2 diabetes mellitus with other diabetic kid allen complication SP Active 48582001 SP Problem Insomnia G47.00 Active 797345410 SP Problem Degenerative disc disease, lumbar M51.36 Active 62177535 SP Problem HTN (hypertension) I10 Active 3 8751184 SP Problem Hyperlipidemia E78.5 Active 50672 004 SP Problem CAD (coronary artery disease) I25.10 Active 15302147 SP Problem Chronic pain G89.29 Active 0402695 1 SP Problem Post-traumatic stress disorder F43.10 Active 83749286 SP ALLERGIES No Information ENCOUNTERS Encounter Location Date Diagnosis POS [facility] [address] [facility] [id number] [address] [place] [phone] SP Jan, SP [facility] [address] [facility] [id number] [address] [place] [phone] SP Jan, SP [facility] [address] [facility] [id number] [address] [place] [phone] SP Jan, SP [facility] [address] [facility] [id number] [address] [place] [phone] SP Jan, Slurred speech R47.81 ; Atax ia R27.0 and Left arm weakness SP [facility] [address] [facility] [id number] [address] [place] [phone] SP Jan, SP [facility] [address] [facility] [id number] [place] [phone] SP Jan, Type 2 diabetes mellitus wit h hyperglycemia E11.65 and SP vomiting with nausea, unspecified vomiting type R11.2 [place] [address] [facility] [id number] [place] [phone] SP Dec, CAD (coronary artery disease ) I25.10 and Atypical chest pain SP [place] [address] [facility] [id number] [place] [phone] SP Dec, SP [place] [address] [place] [id number] [place] [phone] SP Dec, Diabetes E11.9 ; Type 2 diab etes mellitus with hyperglycemia SP and Intractable vomiting with nausea, unspecified vomiting type R11.2 [place] [address] [facility] [id number] [address] [place] [phone] SP Dec, Chronic pain G89.29 SP [place] [address] [place] [id number] [address] [place] [phone] SP November, SP [place] [address] [facility] [id number] [address] [place] [phone] SP November, Diabetes E11.9 ; CAD (trinidad ry artery disease) I25.10 ; Atypical SP pain R07.89 ; Type 2 diabetes mellitus with hyperglycemia E11.65 ; 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.29 ; roasterman 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.4 and Chronic pain G89.29 [place] [address] [facility] [id number] [address] [place] [phone] SP Oct, SP [facility] [address] [facility] [id number] [address] [place] [phone] SP Oct, Chronic pain G89.29 SP [facility] [address] [facility] [id number] [address] [place] [phone] SP Sep, Diabetes E11.9 SP [facility] [address] [facility] [id number] [address] [place] [phone] SP Sep, Chronic pain G89.29 SP [facility] [address] [facility] [id number] [address] [place] [phone] SP Sep, SP [facility] [address] [facility] [id number] [address] [place] [phone] SP Sep, Falls frequently R29.6 ; Elier g term 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.4 SP Type 2 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 E11.49 [facility] [address] [facility] [id number] [address] [place] [phone] SP Sep, SP [facility] [address] [facility] [id number] [address] [place] [phone] SP Sep, Diabetes E11.9 SP [facility] [address] [facility] [id number] [address] [place] [phone] SP Aug, SP [facility] [address] [facility] [id number] [address] [place] [phone] SP Aug, Chronic pain G89.29 SP [facility] [address] [facility] [id number] [address] [place] [phone] SP Aug, SP [facility] [address] [facility] [id number] [address] [place] [phone] SP Aug, Chronic pain G89.29 SP [facility] [address] [facility] [id number] [address] [place] [phone] SP Jul, SP [facility] [address] [facility] [id number] [address] [place] [phone] SP Jul, Diabetes E11.9 and Type 2 di abetes mellitus with other diabetic SP complication E11.29 [facility] [address] [facility] [id number] [address] [place] [phone] SP Jul, Type 2 diabetes mellitus wit h other diabetic kidney complication SP [facility] [address] [facility] [id number] [address] [place] [phone] SP Jul, SP [facility] [address] [facility] [id number] [address] [place] [phone] SP Jul, Chronic pain G89.29 SP [place] [address] [facility] [id number] [address] [place] [phone] SP Jun, Diabetes E11.9 SP [facility] [address] [facility] [id number] [address] [place] [phone] SP Jun, Chronic pain G89.29 SP [place] [address] [facility] [id number] [address] [place] [phone] SP Jun, Diabetes E11.9 ; Atypical ch est pain R07.89 ; roasterman current SP of insulin Z79.4 ; 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.29 ; Type 2 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 E11.49 ; History of pulmonary embolism Z86.711 and History of CVA (cerebrovascular accident) Z86.73 [place] [address] [facility] [id number] [address] [place] [phone] SP May, SP [facility] [address] [facility] [id number] [address] [place] [phone] SP May, Chronic pain G89.29 SP [place] [address] [facility] [id number] [address] [place] [phone] SP Apr, Chronic pain G89.29 SP [place] [address] [facility] [id number] [address] [place] [phone] SP Apr, SP [facility] [address] [facility] [id number] [address] [place] [phone] SP 29 Mar, 2017 Chronic pain G89.29 SP [facility] [address] [facility] [id number] [address] [place] [phone] SP 18 Mar, 2017 Diabetes E11.9 SP [facility] [address] [facility] [id number] [address] [place] [phone] SP 07 Mar, 2017 SP [place] [address] [facility] [id number] [address] [place] [phone] SP Mar, Degenerative disc disease, l umbar M51.36 SP [place] [address] [facility] [id number] [address] [place] [phone] SP Feb, Diabetes E11.9 SP [place] [address] [facility] [id number] [address] [place] [phone] SP Feb, Diabetes E11.9 SP [place] [address] [facility] [id number] [address] [place] [phone] SP 16 Feb, 2017 Diabetes E11.9 ; HTN (hypert ension) I10 ; Diabetic neuropathy SP and Leg cramps R25.2 [place] [address] [facility] [id number] [address] [place] [phone] SP 15 Feb, 2017 Sprain of calcaneofibular li gament of right ankle, subsequent SP S93.411D ; Major depressive disorder, recurrent episode, moderate F33.1 ; Diabetes E11.9 ; Hyperlipidemia E78.5 ; Post-traumatic stress disorder F43.10 and Other irritable bowel syndrome K58.8 [place] [address] [facility] [id number] [address] [place] [phone] SP 14 Feb, 2017 Major depressive disorder, r ecurrent episode, moderate F33.1 ; SPtraumatic stress disorder F43.10 and Obsessive-compulsive disorder, unspecified type F42.9 [place] [address] [facility] [id number] [address] [place] [phone] SP Feb, SP [place] [address] [facility] [id number] [address] [place] [phone] SP Feb, Post-traumatic stress disord er F43.10 and Major depressive SP recurrent, moderate F33.1 [facility] [address] [id number] [address] [place] [phone] SP Feb, Diabetes E11.9 SP [facility] [address] [facility] [id number] [address] [place] [phone] SP Feb, Degenerative disc disease, l umbar M51.36 SP [facility] [address] [id number] [address] [place] [phone] SP Feb, Post-traumatic stress disord er F43.10 and Major depressive SP recurrent, moderate F33.1 [facility] [address] [facility] [id number] [address] [place] [phone] SP Feb, SP [facility] [address] [facility] [id number] [address] [place] [phone] SP Feb, Diabetes E11.9 SP [facility] [address] [id number] [address] [place] [phone] SP Jan, Diabetes E11.9 SP [facility] [address] [facility] [id number] [address] [place] [phone] SP Jan, Post-traumatic stress disord er F43.10 and Major depressive SP recurrent, moderate F33.1 [facility] [address] [facility] [id number] [address] [place] [phone] SP Jan, Diabetes E11.9 SP [facility] [address] [facility] [id number] [address] [place] [phone] SP Jan, Diabetes E11.9 SP [facility] [address] [facility] [id number] [address] [place] [phone] SP Jan, SP [facility] [address] [facility] [id number] [address] [place] [phone] SP Jan, SP [facility] [address] [facility] [id number] [address] [place] [phone] SP Jan, Post-traumatic stress disord er F43.10 and Major depressive SP recurrent, moderate F33.1 [facility] [address] [id number] [address] [place] [phone] SP Jan, SP [facility] [address] [id number] [address] [place] [phone] SP Jan, Major depressive disorder, r ecurrent episode, moderate F33.1 ; SPtraumatic stress disorder F43.10 and Obsessive-compulsive disorder, unspecified type F42.9 [facility] [address] [id number] [address] [place] [phone] SP Jan, SP [facility] [address] [id number] [address] [place] [phone] SP Jan, Diabetes E11.9 SP [facility] [address] [id number] [address] [place] [phone] SP Jan, SP [facility] [address] [id number] [address] [place] [phone] SP Jan, Sprain of calcaneofibular li gament of right ankle, subsequent SP S93.411D [facility] [address] [id number] [address] [place] [phone] SP Jan, Post-traumatic stress disord er F43.10 and Major depressive SP recurrent, moderate F33.1 [facility] [address] [id number] [address] [place] [phone] SP Jan, Diabetes E11.9 SP [facility] [address] [id number] [address] [place] [phone] SP Dec, Major depressive disorder, r ecurrent episode, moderate F33.1 ; SPtraumatic stress disorder F43.10 and Obsessive-compulsive disorder, unspecified type F42.9 [facility] [address] [id number] [address] [place] [phone] SP Dec, SP [facility] [address] [id number] [address] [place] [phone] SP 14 Dec, 2016 Sprain of calcaneofibular li gament of right ankle, subsequent SP S93.411D [facility] [address] [facility] [id number] [address] [place] [phone] SP 13 Dec, 2016 Post-traumatic stress disord er F43.10 and Major depressive SP recurrent, moderate F33.1 [place] [address] [id number] [address] [place] [phone] SP 13 Dec, 2016 Sprain of calcaneofibular li gament of right ankle, subsequent SP S93.411D [place] [address] [facility] [id number] [address] [place] [phone] SP Dec, Hyperlipidemia E78.5 SP [place] [address] [place] [id number] [address] [place] [phone] SP Dec, SP [place] [address] [facility] [id number] [address] [place] [phone] SP Dec, Diabetes E11.9 ; Diabetic ne uropathy E11.40 ; Degenerative disc SP lumbar M51.36 ; Hyperlipidemia E78.5 ; Insomnia G47.00 ; CAD (coronary artery disease) I25.10 ; Major depressive disorder, recurrent, moderate F33.1 ; Post- traumatic stress disorder F43.10 and Other irritable bowel syndrome K58.8 [place] [address] [facility] [id number] [address] [place] [phone] SP November, Diabetic neuropathy E11.40 a nd Hyperlipidemia E78.5 SP [place] [address] [facility] [id number] [address] [place] [phone] SP November, Degenerative disc disease, l umbar M51.36 SP [place] [address] [facility] [id number] [address] [place] [phone] SP Oct, SP [place] [address] [facility] [id number] [address] [place] [phone] SP Oct, Degenerative disc disease, l umbar M51.36 SP [facility] [address] [facility] [id number] [address] [place] [phone] SP Sep, Degenerative disc disease, l umbar M51.36 and HTN (hypertension) SP [facility] [address] [facility] [id number] [address] [place] [phone] SP Sep, Diabetic neuropathy E11.40 ; HTN (hypertension) I10 ; SP disc disease, lumbar M51.36 ; Hyperlipidemia E78.5 ; Insomnia G47.00 ; CAD (coronary artery disease) I25.10 and Diabetes E11.9 [facility] [address] [facility] [id number] [address] [place] [phone] SP Aug, SP [facility] [address] [facility] [id number] [address] [place] [phone] SP Aug, Type 2 diabetes mellitus wit h hyperglycemia E11.65 SP [facility] [address] [facility] [id number] [address] [place] [phone] SP Aug, SP [facility] [address] [facility] [id number] [address] [place] [phone] SP Jul, SP [facility] [address] [facility] [id number] [address] [place] [phone] SP Jul, SP [facility] [address] [facility] [id number] [address] [place] [phone] SP Jun, SP [facility] [address] [facility] [id number] [address] [place] [phone] SP Jun, SP [facility] [address] [facility] [id number] [address] [place] [phone] SP Jun, SP [facility] [address] [facility] [id number] [address] [place] [phone] SP Jun, SP [facility] [address] [facility] [id number] [address] [place] [phone] SP May, Major depressive disorder, r ecurrent episode, moderate F33.1 and SPtraumatic stress disorder F43.10 [place] [address] [id number] [address] [place] [phone] SP May, Major depressive disorder, r ecurrent episode, moderate F33.1 and SPtraumatic stress disorder F43.10 [facility] [address] [id number] [address] [place] [phone] SP May, Diabetes E11.9 ; Diabetic ne uropathy E11.40 ; HTN (hypertension) SP ; Gastritis K29.70 ; Hyperlipidemia E78.5 ; Insomnia G47.00 and Major depressive disorder, recurrent, moderate F33.1 [place] [address] [id number] [address] [place] [phone] SP May, Major depressive disorder, r ecurrent episode, moderate F33.1 SP [place] [address] [id number] [address] [place] [phone] SP Apr, SP [place] [address] [id number] [address] [place] [phone] SP Apr, Major depressive disorder, r ecurrent episode, moderate F33.1 and SPtraumatic stress disorder F43.10 [place] [address] [id number] [address] [place] [phone] SP Apr, Diabetes E11.9 ; Diabetic ne uropathy E11.40 ; Degenerative disc SP lumbar M51.36 ; HTN (hypertension) I10 ; Hyperlipidemia E78.5 ; Chronic pain G89.29 ; CAD (coronary artery disease) I25.10 and Major depressive disorder, recurrent, moderate F33.1 [place] [address] [id number] [address] [place] [phone] SP Apr, Major depressive disorder, r ecurrent episode, moderate F33.1 and SPtraumatic stress disorder F43.10 [place] [address] [id number] [address] [place] [phone] SP Apr, Major depressive disorder, r ecurrent episode, moderate F33.1 and SPtraumatic stress disorder F43.10 [facility] [address] [facility] [id number] [address] [place] [phone] SP Apr, Major depressive disorder, r ecurrent episode, moderate F33.1 and SP episodic mood disorder F39 [facility] [address] [facility] [id number] [address] [place] [phone] SP Apr, Chronic pain G89.29 ; Diabet ic neuropathy E11.40 ; HTN SP I10 ; Insomnia G47.00 ; CAD (coronary artery disease) I25.10 ; Hyperlipidemia E78.5 ; Degenerative disc disease, lumbar M51.36 ; Diabetes E11.9 and Gastritis K29.70 [place] [address] [place] [id number] [address] [place] [phone] SP Sep, SP [facility] [address] [place] [id number] [address] [place] [phone] SP Aug, SP [facility] [address] [place] [id number] [place] [phone] SP Jul, Major depressive disorder, r ecurrent episode, moderate F33.1 SP [facility] [address] [facility] [id number] [address] [place] [phone] SP Jul, Unspecified episodic mood di sorder F39 SP [facility] [address] [facility] [id number] [address] [place] [phone] SP Jul, SP [facility] [address] [place] [id number] [address] [place] [phone] SP Jul, SP [facility] [address] [facility] [id number] [address] [place] [phone] SP Jul, SP [facility] [address] [place] [id number] [address] [place] [phone] SP Jul, Type 2 diabetes mellitus wit h hyperglycemia E11.65 ; Diabetic SP E11.40 ; Degenerative disc disease, lumbar M51.36 ; HTN (hypertension) I10 ; Gastritis K29.70 ; Hyperlipidemia E78.5 and CAD (coronary artery disease) I25.10 [place] [address] [facility] [id number] [address] [place] [phone] SP Jul, Severe episode of recurrent major depressive disorder, without SP features F33.2 [facility] [address] [facility] [id number] [address] [place] [phone] SP Jul, SP [facility] [address] [facility] [id number] [place] [phone] SP Jun, SP [place] [address] [facility] [id number] [address] [place] [phone] SP Jun, Diabetes E11.9 ; Diabetic ne uropathy E11.40 ; Degenerative disc SP lumbar M51.36 ; HTN (hypertension) I10 ; Gastritis K29.70 ; Hyperlipidemia E78.5 ; Unspecified episodic mood disorder F39 ; Depression F32.9 and CAD (coronary artery disease) I25.10 [place] [address] [facility] [id number] [address] [place] [phone] SP Jun, SP [place] [address] [facility] [id number] [address] [place] [phone] SP Jun, SP [facility] [address] [facility] [id number] [place] [phone] SP Jun, Diabetes E11.9 ; Diabetic ne uropathy E11.40 ; Degenerative disc SP lumbar M51.36 ; HTN (hypertension) I10 ; Gastritis K29.70 ; Chronic pain G89.29 ; Insomnia G47.00 and Unspecified episodic mood disorder F39 [place] [address] [facility] [id number] [address] [place] [phone] SP May, Diabetic neuropathy E11.40 ; Degenerative disc disease, lumbar SP ; HTN (hypertension) I10 ; Gastritis K29.70 ; Hyperlipidemia E78.5 ; Chronic pain G89.29 ; Insomnia G47.00 ; Unspecified episodic mood disorder F39 ; Diabetes E11.9 ; CAD (coronary artery disease) I25.10 and H/O Gram positive sepsis Z86.19 [facility] [address] [id number] [address] [place] [phone] SP May, SP [facility] [address] [facility] [id number] [address] [place] [phone] SP May, SP [facility] [address] [facility] [id number] [address] [place] [phone] SP May, SP [facility] [address] [facility] [id number] [address] [place] [phone] SP May, SP [facility] [address] [facility] [id number] [address] [place] [phone] SP May, UTI (urinary tract infection ) N39.0 ; Diabetes E11.9 ; Diabetic SP E11.40 ; Hyperlipidemia E78.5 and Chronic pain G89.29 [facility] [address] [facility] [id number] [address] [place] [phone] SP May, Insomnia, unspecified G47.00 and Chronic pain G89.29 SP [facility] [address] [facility] [id number] [address] [place] [phone] SP May, SP [facility] [address] [facility] [facility] [id number] [address] [place] [phone] SP May, SP [facility] [address] [facility] [facility] [id number] [address] [place] [phone] SP May, SP [facility] [address] [facility] [id number] [address] [place] [phone] SP Apr, Insomnia, unspecified G47.00 ; Chronic pain G89.29 and SP episodic mood disorder F39 [facility] [address] [facility] [id number] [address] [place] [phone] SP Apr, Unspecified episodic mood di sorder F39 SP [facility] [address] [facility] [id number] [address] [place] [id number] SP Apr, Major depression F32.9 SP [facility] [address] [id number] SP Apr, SP [facility] [address] [id number] SP Apr, Diabetes E11.9 ; Diabetic ne uropathy E11.40 ; Degenerative disc SP lumbar M51.36 ; HTN (hypertension) I10 ; Gastritis K29.70 ; Hyperlipidemia E78.5 ; Chronic pain G89.29 and Insomnia G47.00 [place] [address] [id number] SP Mar, [facility] [address] [id number] SP Mar, [facility] [address] [phone] SP Mar, [place] [address] [phone] SP Mar, Diabetes mellitus 250.00 ; D iabetic neuropathy 250.60 ; CAD SP artery disease) 414.00 ; Degenerative disc disease, lumbar 722.52 ; Gastritis 535.50 and Insomnia 780.52 [place] [address] [address] SP Mar, Diabetes mellitus 250.00 ; D egenerative disc disease, lumbar SP ; Essential hypertension 401.9 ; Gastritis 535.50 and Chronic pain 338.29 [place] [address] [phone] SP Feb, [facility] [address] [id number] SP Feb, [facility] [address] [id number] SP Jan, SP [facility] [address] [id number] SP Jan, Diabetes mellitus 250.00 ; D iabetic neuropathy 250.60 ; SP disc disease, lumbar 722.52 ; CAD (coronary artery disease) 414.00 ; Essential hypertension 401.9 ; Gastritis 535.50 ; Hyperlipidemia 272.4 and Distal end of ulna fracture, closed 813.43 [facility] [address] [facility] [id number] [address] [place] [id number] SP Dec, Wrist pain 719.43 and Diabet es mellitus 250.00 SP [facility] [address] [facility] [id number] [address] [place] [phone] SP May, SP [facility] [address] [facility] [id number] [address] [place] [phone] SP Dec, SP [facility] [address] [facility] [id number] [address] [place] [phone] SP November, SP [facility] [address] [facility] [id number] [address] [place] [phone] SP Oct, SP [facility] [address] [facility] [id number] [address] [place] [id number] SP Sep, SP [facility] [address] [place] [id number] [address] [place] [phone] SP Sep, SP [facility] [address] [facility] [id number] [address] [place] [phone] SP Jun, SP [facility] [address] [place] [id number] [address] [place] [phone] SP Jun, SP [facility] [address] [facility] [id number] [address] [place] [phone] SP Jun, SP [facility] [address] [place] [id number] [address] [place] [phone] SP Jun, SP [facility] [address] [facility] [id number] [address] [place] [phone] SP Jun, SP [facility] [address] [place] [id number] [address] [place] [phone] SP Jun, SP [facility] [address] [id number] [address] [place] [phone] SP Jun, SP [facility] [address] [id number] [address] [place] [phone] SP May, SP [facility] [address] [facility] [id number] [address] [place] [phone] SP May, SP [facility] [address] [facility] [id number] [address] [place] [id number] SP May, SP [facility] [address] [facility] [id number] [address] [place] [phone] SP May, SP [facility] [address] [facility] [id number] [address] [place] [phone] SP Apr, SP [facility] [address] [facility] [id number] [address] [place] [phone] SP Apr, SP [facility] [address] [id number] [address] [place] [id number] SP Apr, SP [facility] [address] [id number] [address] [place] [phone] SP Mar, SP [facility] [address] [facility] [id number] [address] [place] [phone] SP Dec, SP IMMUNIZATIONS No Known Immunizations [...]
--- OUTSIDE RECORDS SUMMARY | 2019-06-14 01:43 | XMS REPORT ---
Author Author JALEN PEREZ POS Organization [facility] SP Address [address] [place] [address] SP Care Team Providers Care Fur Tinter Name Role Phone POS JALEN PEREZ Unavailable SP PROBLEMS Type Condition ICD9-CM Code LBB44-UM Code Onset Dates Condition S tatus SNOMED POS Problem Type 2 diabetes mellitus with hyperglycemia E11.65 Active POS Problem Major depressive disorder, recurrent episode, moderate F33.1 Active SP Problem Obsessive-compulsive disorder, unspecified type F4 2.9 Active SP Problem Ataxia R27.0 Active [id number] SP Problem Falls frequently R29.6 Active 279 479981 SP Problem Type 2 diabetes mellitus with other diab etic neurological complication SP E11.49 Active 10617689 SP Problem pulp grinder feeder 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.4 Active 594747610 SP Problem History of pulmonary embolism Z86.711 Active 576811440 SP Problem Type 2 diabetes mellitus with other diabetic kid allen complication SP Active 34448433 SP Problem Insomnia G47.00 Active 457786888 SP Problem Degenerative disc disease, lumbar M51.36 Active 84548624 SP Problem HTN (hypertension) I10 Active 3 5546502 SP Problem Hyperlipidemia E78.5 Active 51535 004 SP Problem CAD (coronary artery disease) I25.10 Active 80152770 SP Problem Chronic pain G89.29 Active 4182298 1 SP Problem Post-traumatic stress disorder F43.10 Active 95254772 SP ALLERGIES Substance Reaction Event Type Date Status POS Viibryd N/V Drug Allergy Sep, Active SP Seroquel N/V and "couldn't do anything." Drug Allergy Sep, 018 Active SP Penicillin V Potassium Unknown Drug Allergy Sep, Activ e SP Lexapro N/V, inc. suicidality Drug Allergy Sep, Active SP Ibuprofen Unknown Drug Allergy Sep, Active SP Depakote inc. suicidality Drug Allergy Sep, Active SP ENCOUNTERS Encounter Location Date Diagnosis POS [facility] [address] [facility] [id number] [address] [place] [phone] SP Jan, SP [facility] [address] [facility] [id number] [address] [place] [phone] SP Jan, SP [facility] [address] [facility] [id number] [place] [phone] SP Jan, Slurred speech R47.81 ; Atax ia R27.0 and Left arm weakness SP [facility] [address] [facility] [id number] [address] [place] [phone] SP Jan, SP [facility] [address] [facility] [id number] [address] [place] [phone] SP Jan, Type 2 diabetes mellitus wit h hyperglycemia E11.65 and SP vomiting with nausea, unspecified vomiting type R11.2 [facility] [address] [facility] [id number] [address] [place] [phone] SP Dec, CAD (coronary artery disease ) I25.10 and Atypical chest pain SP [facility] [address] [facility] [id number] [address] [place] [phone] SP Dec, SP [facility] [address] [facility] [id number] [address] [place] [phone] SP Dec, Diabetes E11.9 ; Type 2 diab etes mellitus with hyperglycemia SP and Intractable vomiting with nausea, unspecified vomiting type R11.2 [facility] [address] [facility] [id number] [address] [place] [phone] SP Dec, Chronic pain G89.29 SP [facility] [address] [facility] [id number] [address] [place] [phone] SP November, SP [facility] [address] [facility] [id number] [address] [place] [phone] SP November, Diabetes E11.9 ; CAD (trin[place] ry artery disease) I25.10 ; Atypical SP pain R07.89 ; Type 2 diabetes mellitus with hyperglycemia E11.65 ; 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.29 ; pulp grinder feeder 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.4 and Chronic pain G89.29 [facility] [address] [facility] [id number] [address] [place] [phone] SP Oct, SP [facility] [address] [facility] [id number] [address] [place] [phone] SP Oct, Chronic pain G89.29 SP [facility] [address] [facility] [id number] [address] [place] [phone] SP Sep, Diabetes E11.9 SP [facility] [address] [facility] [id number] [address] [place] [phone] SP Sep, Chronic pain G89.29 SP [facility] [address] [facility] [id number] [address] [place] [phone] SP Sep, SP [facility] [address] [facility] [id number] [address] [place] [phone] SP Sep, Falls frequently R29.6 ; Elier g term 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.4 SP Type 2 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 E11.49 [facility] [address] [facility] [id number] [address] [place] [phone] SP Sep, SP [facility] [address] [facility] [id number] [address] [place] [phone] SP Sep, Diabetes E11.9 SP [facility] [address] [facility] [id number] [address] [place] [phone] SP Aug, SP [facility] [address] [facility] [id number] [address] [place] [phone] SP Aug, Chronic pain G89.29 SP [facility] [address] [facility] [id number] [address] [place] [phone] SP Aug, SP [facility] [address] [facility] [id number] [address] [place] [phone] SP Aug, Chronic pain G89.29 SP [facility] [address] [facility] [id number] [address] [place] [phone] SP Jul, SP [facility] [address] [facility] [id number] [address] [place] [phone] SP Jul, Diabetes E11.9 and Type 2 di abetes mellitus with other diabetic SP complication E11.29 [facility] [address] [facility] [id number] [address] [place] [phone] SP Jul, Type 2 diabetes mellitus wit h other diabetic kidney complication SP [facility] [address] [facility] [id number] [address] [place] [phone] SP Jul, SP [facility] [address] [facility] [id number] [address] [place] [phone] SP Jul, Chronic pain G89.29 SP [facility] [address] [facility] [id number] [address] [place] [phone] SP Jun, Diabetes E11.9 SP [facility] [address] [facility] [id number] [address] [place] [phone] SP Jun, Chronic pain G89.29 SP [place] [address] [facility] [id number] [address] [place] [phone] SP Jun, Diabetes E11.9 ; Atypical ch est pain R07.89 ; pulp grinder feeder current SP of insulin Z79.4 ; 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.29 ; Type 2 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 E11.49 ; History of pulmonary embolism Z86.711 and History of CVA (cerebrovascular accident) Z86.73 [facility] [address] [facility] [id number] [address] [place] [phone] SP May, SP [facility] [address] [facility] [id number] [address] [place] [phone] SP May, Chronic pain G89.29 SP [facility] [address] [facility] [id number] [address] [place] [phone] SP Apr, Chronic pain G89.29 SP [place] [id number] [facility] [id number] [address] [place] [phone] SP Apr, SP [place] [address] [facility] [id number] [address] [place] [phone] SP Mar, Chronic pain G89.29 SP [place] [address] [facility] [id number] [address] [place] [phone] SP 18 Mar, 2017 Diabetes E11.9 SP [place] [address] [facility] [id number] [address] [place] [phone] SP 07 Mar, 2017 SP [place] [address] [facility] [id number] [place] [phone] SP Mar, Degenerative disc disease, l umbar M51.36 SP [place] [address] [facility] [id number] [address] [place] [phone] SP Feb, Diabetes E11.9 SP [place] [address] [facility] [id number] [address] [place] [phone] SP Feb, Diabetes E11.9 SP [place] [address] [facility] [id number] [address] [place] [phone] SP 16 Feb, 2017 Diabetes E11.9 ; HTN (hypert ension) I10 ; Diabetic neuropathy SP and Leg cramps R25.2 [place] [address] [place] [id number] [address] [place] [phone] SP 15 Feb, 2017 Sprain of calcaneofibular li gament of right ankle, subsequent SP S93.411D ; Major depressive disorder, recurrent episode, moderate F33.1 ; Diabetes E11.9 ; Hyperlipidemia E78.5 ; Post-traumatic stress disorder F43.10 and Other irritable bowel syndrome K58.8 [place] [address] [facility] [id number] [address] [place] [phone] SP 14 Feb, 2017 Major depressive disorder, r ecurrent episode, moderate F33.1 ; SPtraumatic stress disorder F43.10 and Obsessive-compulsive disorder, unspecified type F42.9 [facility] [address] [id number] [address] [place] [phone] SP Feb, SP [facility] [address] [id number] [address] [place] [phone] SP Feb, Post-traumatic stress disord er F43.10 and Major depressive SP recurrent, moderate F33.1 [facility] [address] [id number] [address] [place] [phone] SP Feb, Diabetes E11.9 SP [facility] [address] [facility] [id number] [address] [place] [phone] SP Feb, Degenerative disc disease, l umbar M51.36 SP [facility] [address] [facility] [id number] [address] [place] [phone] SP Feb, Post-traumatic stress disord er F43.10 and Major depressive SP recurrent, moderate F33.1 [facility] [address] [id number] [address] [place] [phone] SP Feb, SP [facility] [address] [id number] [address] [place] [phone] SP Feb, Diabetes E11.9 SP [facility] [address] [facility] [id number] [address] [place] [phone] SP Jan, Diabetes E11.9 SP [facility] [address] [id number] [address] [place] [phone] SP Jan, Post-traumatic stress disord er F43.10 and Major depressive SP recurrent, moderate F33.1 [facility] [address] [id number] [address] [place] [phone] SP Jan, Diabetes E11.9 SP [facility] [address] [facility] [id number] [address] [place] [phone] SP Jan, Diabetes E11.9 SP [facility] [address] [facility] [id number] [address] [place] [phone] SP Jan, SP [facility] [address] [id number] [address] [place] [phone] SP Jan, SP [facility] [address] [id number] [address] [place] [phone] SP Jan, Post-traumatic stress disord er F43.10 and Major depressive SP recurrent, moderate F33.1 [facility] [address] [id number] [address] [place] [phone] SP Jan, SP [facility] [address] [id number] [address] [place] [phone] SP Jan, Major depressive disorder, r ecurrent episode, moderate F33.1 ; SPtraumatic stress disorder F43.10 and Obsessive-compulsive disorder, unspecified type F42.9 [facility] [address] [id number] [address] [place] [phone] SP Jan, SP [facility] [address] [id number] [address] [place] [phone] SP Jan, Diabetes E11.9 SP [facility] [address] [id number] [address] [place] [phone] SP Jan, SP [facility] [address] [id number] [address] [place] [phone] SP Jan, Sprain of calcaneofibular li gament of right ankle, subsequent SP S93.411D [facility] [address] [id number] [address] [place] [phone] SP Jan, Post-traumatic stress disord er F43.10 and Major depressive SP recurrent, moderate F33.1 [facility] [address] [id number] [address] [place] [phone] SP Jan, Diabetes E11.9 SP [facility] [address] [id number] [address] [place] [phone] SP Dec, Major depressive disorder, r ecurrent episode, moderate F33.1 ; SPtraumatic stress disorder F43.10 and Obsessive-compulsive disorder, unspecified type F42.9 [facility] [address] [id number] [address] [place] [phone] SP 15 Dec, 2016 SP [facility] [address] [facility] [id number] [address] [place] [phone] SP 14 Dec, 2016 Sprain of calcaneofibular li gament of right ankle, subsequent SP S93.411D [facility] [address] [id number] [address] [place] [phone] SP 13 Dec, 2016 Post-traumatic stress disord er F43.10 and Major depressive SP recurrent, moderate F33.1 [place] [address] [facility] [id number] [address] [place] [phone] SP 13 Dec, 2016 Sprain of calcaneofibular li gament of right ankle, subsequent SP S93.411D [place] [address] [facility] [id number] [address] [place] [phone] SP 12 Dec, 2016 Hyperlipidemia E78.5 SP [place] [address] [id number] [address] [place] [phone] SP Dec, SP [place] [address] [facility] [id number] [address] [place] [phone] SP Dec, Diabetes E11.9 ; Diabetic ne uropathy E11.40 ; Degenerative disc SP lumbar M51.36 ; Hyperlipidemia E78.5 ; Insomnia G47.00 ; CAD (coronary artery disease) I25.10 ; Major depressive disorder, recurrent, moderate F33.1 ; Post- traumatic stress disorder F43.10 and Other irritable bowel syndrome K58.8 [place] [address] [facility] [id number] [address] [place] [phone] SP November, Diabetic neuropathy E11.40 a nd Hyperlipidemia E78.5 SP [facility] [address] [facility] [id number] [address] [place] [phone] SP November, Degenerative disc disease, l umbar M51.36 SP [facility] [address] [facility] [id number] [address] [place] [phone] SP Oct, SP [facility] [address] [facility] [id number] [place] [phone] SP Oct, Degenerative disc disease, l umbar M51.36 SP [facility] [address] [facility] [id number] [address] [place] [phone] SP Sep, Degenerative disc disease, l umbar M51.36 and HTN (hypertension) SP [facility] [address] [facility] [id number] [place] [phone] SP Sep, Diabetic neuropathy E11.40 ; HTN (hypertension) I10 ; SP disc disease, lumbar M51.36 ; Hyperlipidemia E78.5 ; Insomnia G47.00 ; CAD (coronary artery disease) I25.10 and Diabetes E11.9 [place] [address] [facility] [id number] [address] [place] [phone] SP Aug, SP [facility] [address] [facility] [id number] [place] [phone] SP Aug, Type 2 diabetes mellitus wit h hyperglycemia E11.65 SP [place] [address] [facility] [id number] [address] [place] [phone] SP Aug, [facility] [address] [place] [id number] [address] [place] [phone] SP Jul, SP [facility] [address] [facility] [id number] [address] [place] [phone] SP Jul, SP [facility] [address] [facility] [id number] [address] [place] [phone] SP Jun, [facility] [address] [place] [id number] [address] [place] [phone] SP Jun, [facility] [address] [place] [id number] [address] [place] [phone] SP Jun, [place] [address] [facility] [id number] [address] [place] [phone] SP Jun, SP [place] [address] [facility] [id number] [address] [place] [phone] SP May, Major depressive disorder, r ecurrent episode, moderate F33.1 and SPtraumatic stress disorder F43.10 [place] [address] [facility] [id number] [address] [place] [phone] SP May, Major depressive disorder, r ecurrent episode, moderate F33.1 and SPtraumatic stress disorder F43.10 [place] [address] [facility] [id number] [address] [place] [phone] SP May, Diabetes E11.9 ; Diabetic ne uropathy E11.40 ; HTN (hypertension) SP ; Gastritis K29.70 ; Hyperlipidemia E78.5 ; Insomnia G47.00 and Major depressive disorder, recurrent, moderate F33.1 [place] [address] [facility] [id number] [address] [place] [phone] SP May, Major depressive disorder, r ecurrent episode, moderate F33.1 SP [place] [address] [facility] [id number] [address] [place] [phone] SP Apr, SP [place] [address] [facility] [id number] [address] [place] [phone] SP Apr, Major depressive disorder, r ecurrent episode, moderate F33.1 and SPtraumatic stress disorder F43.10 [place] [address] [facility] [id number] [address] [place] [phone] SP Apr, Diabetes E11.9 ; Diabetic ne uropathy E11.40 ; Degenerative disc SP lumbar M51.36 ; HTN (hypertension) I10 ; Hyperlipidemia E78.5 ; Chronic pain G89.29 ; CAD (coronary artery disease) I25.10 and Major depressive disorder, recurrent, moderate F33.1 [place] [address] [facility] [id number] [address] [place] [phone] SP Apr, Major depressive disorder, r ecurrent episode, moderate F33.1 and SPtraumatic stress disorder F43.10 [facility] [address] [facility] [id number] [address] [place] [phone] SP Apr, Major depressive disorder, r ecurrent episode, moderate F33.1 and SPtraumatic stress disorder F43.10 [facility] [address] [facility] [id number] [address] [place] [phone] SP Apr, Major depressive disorder, r ecurrent episode, moderate F33.1 and SP episodic mood disorder F39 [facility] [address] [facility] [id number] [address] [place] [phone] SP Apr, Chronic pain G89.29 ; Diabet ic neuropathy E11.40 ; HTN SP I10 ; Insomnia G47.00 ; CAD (coronary artery disease) I25.10 ; Hyperlipidemia E78.5 ; Degenerative disc disease, lumbar M51.36 ; Diabetes E11.9 and Gastritis K29.70 [facility] [address] [facility] [id number] [address] [place] [phone] SP Sep, SP [facility] [address] [facility] [id number] [address] [place] [phone] SP Aug, SP [facility] [address] [facility] [id number] [address] [place] [phone] SP Jul, Major depressive disorder, r ecurrent episode, moderate F33.1 SP [facility] [address] [facility] [id number] [address] [place] [phone] SP Jul, Unspecified episodic mood di sorder F39 SP [facility] [address] [facility] [id number] [address] [place] [phone] SP Jul, SP [facility] [address] [facility] [id number] [address] [place] [phone] SP Jul, SP [facility] [address] [facility] [id number] [address] [place] [phone] SP Jul, SP [facility] [address] [facility] [id number] [address] [place] [phone] SP Jul, Type 2 diabetes mellitus wit h hyperglycemia E11.65 ; Diabetic SP E11.40 ; Degenerative disc disease, lumbar M51.36 ; HTN (hypertension) I10 ; Gastritis K29.70 ; Hyperlipidemia E78.5 and CAD (coronary artery disease) I25.10 [place] [id number] [facility] [id number] [address] [place] [phone] SP Jul, Severe episode of recurrent major depressive disorder, without SP features F33.2 [place] [address] [facility] [id number] [address] [place] [phone] SP Jul, SP [place] [address] [place] [id number] [place] [phone] SP Jun, SP [place] [address] [place] [id number] [place] [phone] SP Jun, Diabetes E11.9 ; Diabetic ne uropathy E11.40 ; Degenerative disc SP lumbar M51.36 ; HTN (hypertension) I10 ; Gastritis K29.70 ; Hyperlipidemia E78.5 ; Unspecified episodic mood disorder F39 ; Depression F32.9 and CAD (coronary artery disease) I25.10 [place] [id number] [place] [id number] [address] [place] [phone] SP Jun, SP [place] [address] [place] [id number] [place] [phone] SP Jun, SP [facility] [id number] [facility] [place] [id number] [address] [place] [id number] SP Jun, Diabetes E11.9 ; Diabetic ne uropathy E11.40 ; Degenerative disc SP lumbar M51.36 ; HTN (hypertension) I10 ; Gastritis K29.70 ; Chronic pain G89.29 ; Insomnia G47.00 and Unspecified episodic mood disorder F39 [place] [id number] [place] [id number] [address] [place] [id number] SP May, Diabetic neuropathy E11.40 ; Degenerative disc disease, lumbar SP ; HTN (hypertension) I10 ; Gastritis K29.70 ; Hyperlipidemia E78.5 ; Chronic pain G89.29 ; Insomnia G47.00 ; Unspecified episodic mood disorder F39 ; Diabetes E11.9 ; CAD (coronary artery disease) I25.10 and H/O Gram positive sepsis Z86.19 [facility] [address] [id number] [address] [place] [phone] SP May, SP [facility] [address] [facility] [id number] [address] [place] [phone] SP May, SP [facility] [address] [facility] [id number] [address] [place] [phone] SP May, SP [facility] [address] [facility] [id number] [place] [phone] SP May, SP [facility] [address] [facility] [id number] [address] [place] [phone] SP May, Diabetes E11.9 ; Chronic cachorro n G89.29 ; UTI (urinary tract SP N39.0 ; Hyperlipidemia E78.5 and Diabetic neuropathy E11.40 [facility] [address] [facility] [id number] [address] [place] [phone] SP May, Insomnia, unspecified G47.00 and Chronic pain G89.29 SP [facility] [address] [facility] [id number] [address] [place] [phone] SP May, SP [facility] [address] [facility] [id number] [address] [place] [phone] SP May, SP [facility] [address] [facility] [id number] [address] [place] [phone] SP May, SP [facility] [address] [facility] [id number] [address] [place] [phone] SP Apr, Insomnia, unspecified G47.00 ; Chronic pain G89.29 and SP episodic mood disorder F39 [facility] [address] [facility] [id number] [address] [place] [phone] SP Apr, Unspecified episodic mood di sorder F39 SP [facility] [address] [place] [id number] [address] [place] [phone] SP Apr, Major depression F32.9 SP [facility] [address] [place] [id number] [address] [place] [phone] SP Apr, SP [facility] [address] [phone] SP Apr, Diabetes E11.9 ; Diabetic ne uropathy E11.40 ; Degenerative disc SP lumbar M51.36 ; HTN (hypertension) I10 ; Gastritis K29.70 ; Hyperlipidemia E78.5 ; Chronic pain G89.29 and Insomnia G47.00 [facility] [address] [place] [id number] [address] [place] [phone] SP Mar, SP [facility] [address] [phone] SP Mar, SP [facility] [address] [place] [id number] [address] [place] [phone] SP Mar, [facility] [address] [place] [id number] [address] [place] [phone] SP Mar, Diabetes mellitus 250.00 ; D iabetic neuropathy 250.60 ; CAD SP artery disease) 414.00 ; Degenerative disc disease, lumbar 722.52 ; Gastritis 535.50 and Insomnia 780.52 [facility] [address] [place] [id number] [address] [place] [phone] SP Mar, Diabetes mellitus 250.00 ; D egenerative disc disease, lumbar SP ; Essential hypertension 401.9 ; Gastritis 535.50 and Chronic pain 338.29 [facility] [address] [place] [id number] [address] [place] [phone] SP Feb, SP [facility] [address] [place] [id number] [address] [place] [phone] SP Feb, SP [facility] [id number] [place] [phone] SP Jan, SP [facility] [address] [place] [id number] [place] [phone] SP Jan, Diabetes mellitus 250.00 ; D iabetic neuropathy 250.60 ; SP disc disease, lumbar 722.52 ; CAD (coronary artery disease) 414.00 ; Essential hypertension 401.9 ; Gastritis 535.50 ; Hyperlipidemia 272.4 and Distal end of ulna fracture, closed 813.43 [facility] [address] [place] [id number] [address] [place] [phone] SP Dec, Wrist pain 719.43 and Diabet es mellitus 250.00 SP [facility] [address] [facility] [id number] [address] [place] [phone] SP May, SP [facility] [address] [place] [id number] [place] [phone] SP Dec, SP [facility] [address] [place] [id number] [place] [phone] SP November, SP [facility] [address] [phone] SP Oct, SP [facility] [address] [place] [id number] [address] [place] [phone] SP Sep, SP [facility] [address] [place] [id number] [address] [place] [phone] SP Sep, SP [facility] [address] [facility] [id number] [address] [place] [phone] SP Jun, SP [facility] [address] [place] [id number] [address] [place] [phone] SP Jun, SP [facility] [address] [place] [id number] [address] [place] [phone] SP Jun, SP [facility] [address] [place] [id number] [address] [place] [phone] SP Jun, SP [facility] [address] [id number] [address] [place] [phone] SP Jun, SP [facility] [address] [id number] [address] [place] [phone] SP Jun, SP [facility] [address] [facility] [id number] [address] [place] [phone] SP Jun, SP [facility] [address] [id number] [address] [place] [phone] SP May, SP [facility] [address] [id number] [address] [place] [phone] SP May, SP [facility] [address] [facility] [id number] [address] [place] [phone] SP May, SP [facility] [address] [facility] [id number] [address] [place] [phone] SP May, SP [facility] [address] [id number] [address] [place] [phone] SP Apr, SP [facility] [address] [id number] [address] [place] [phone] SP Apr, SP [facility] [address] [facility] [id number] [address] [place] [phone] SP Apr, SP [facility] [address] [facility] [id number] [address] [place] [phone] SP Mar, SP [facility] [address] [facility] [id number] [address] [place] [phone] SP Dec, SP IMMUNIZATIONS No Known Immunizations SOCIAL HISTORY Never Assessed REASON FOR VISIT high sugars--tcuppettRN, Blood sugars for last week have been 300-400 PLAN OF CARE Activity Details POS SP Follow Up 4 Weeks with [facility] f/u DM Re ason: SP VITAL SIGNS Height 61 in 2017-09-22 POS Weight 136.9 lbs 2017-09-22 POS Temperature 97.8 degrees Fahrenheit 2017-09-22 POS Heart Rate 84 bpm 2017-09-22 POS Respiratory Rate 20 2017-09-22 POS BMI 25.86 kg/m2 2017-09-22 POS Blood pressure systolic 116 mmHg 2017-09-22 POS Blood pressure diastolic 70 mmHg 2017-09-22 POS MEDICATIONS Medication Instructions Dosage Frequency Start Date End Date Duration S tatus POS Metoclopramide HCl 10 mg Orally every 6 hours 1 tab 6h 90 days Active SP HydrOXYzine HCl 50 mg Orally at bedtime as needed for sleep 1 table 14 Feb, 30 days Active SP NovoLog Flexpen 100 UNIT/ML Subcutaneous 3 times a day with meals inject 40 SP Active SP Accu-Chek Deepika Plus w/Device subcutaneously 4 times a day check reyes gars 6h 2016 Active SP Crestor 40 mg Orally Once a day 1 tablet 24h Active SP Levemir FlexTouch 100 UNIT/ML Subcutaneous 55 units bid inject Active SP Prazosin HCl 2 MG Orally at bedtime 1 capsule Feb, 30 day(s) Active SP Hydrocodone-Acetaminophen 10-325 MG Orally 3 times a day 1 tablet a s needed 8h SP Aug, 2017 28 days Active SP Metformin HCl 500 mg DX- E11.65 at supper 2 tablets 20 Aug, 2017 30 day(s) SP Plavix 75 MG TAKE 1 TABLET EVERY DAY 28 Active SP [place] 31G X 6 MM as directed 6h Dec, Active SP Accu-Chek Softclix Lancets - subcutaneously 4 times a day us e to check blood SP 6h Feb, Active SP Lamictal 100 mg Orally Once a day 1 tablet 24h Feb, 30 day(s) Active SP Janumet 50-500 MG Orally Twice a day 1 tablet with meals 12h Aug, 30 SP Active SP Accu-Chek Deepika Plus - subcutaneously 4 times a day to check glucos e 6h Feb, Active SP Lisinopril-Hydrochlorothiazide 20-25 MG Orally Once a day 1 tablet 24h Dec, Active SP Actos 15 mg Orally Once a day 1 tablet 24h Sep, 30 d ay(s) Active SP Aspir-81 81 MG Orally Once a day 1 tablet 24h Active SP Gabapentin 300 MG TAKE 1 [...]
--- OUTSIDE RECORDS SUMMARY | 2019-06-14 01:44 | XMS REPORT ---
Author Author TANVI PATRICK POS Organization [facility] SP Address [address] [place] [address] SP Care Team Providers [employer] Name Role Phone POS PATRICK TINAJERO Unavailable SP PROBLEMS Type Condition ICD9-CM Code PXD02-TZ Code Onset Dates Condition S tatus SNOMED POS Problem Degenerative disc disease, lumbar M51.36 Active 54330884 POS Problem Diabetes E11.9 Active 76295136 SP Problem Diabetic neuropathy E11.40 Active 201086381 SP Problem Leg cramps R25.2 Active 171495190 SP Problem Major depressive disorder, recurrent episode, moderate F33.1 Active SP Problem Post-traumatic stress disorder F43.10 Active 18240729 SP Problem CAD (coronary artery disease) I25.10 Active 37993733 SP Problem Obsessive-compulsive disorder, unspecified type F4 2.9 Active SP Problem Type 2 diabetes mellitus with hyperglycemia E11.65 Active SP Problem Chronic pain G89.29 Active 4573113 1 SP Problem Hyperlipidemia E78.5 Active 32947 004 SP Problem Gastritis K29.70 Active 7418649 SP Problem Insomnia G47.00 Active 537553950 SP Problem HTN (hypertension) I10 Active 3 4679035 SP ALLERGIES Unknown Allergies SOCIAL HISTORY No smoking Hx information available PLAN OF CARE VITAL SIGNS MEDICATIONS Unknown Medications RESULTS No Results PROCEDURES No Known procedures IMMUNIZATIONS No Known Immunizations
--- OUTSIDE RECORDS SUMMARY | 2019-06-14 01:44 | XMS REPORT ---
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 Name Role Phone POS ANAFLAQUITOY Unavailable SP PROBLEMS Type Condition ICD9-CM Code [id number] Code Onset Dates Condition S tatus SNOMED POS Problem Type 2 diabetes mellitus with hyperglycemia E11.65 Active POS Problem Major depressive disorder, recurrent episode, moderate F33.1 Active SP Problem Obsessive-compulsive disorder, unspecified type F4 2.9 Active SP Problem Ataxia R27.0 Active [id number] SP Problem Falls frequently R29.6 Active 279 627579 SP Problem Type 2 diabetes mellitus with other diab etic neurological complication SP E11.49 Active 85759705 SP Problem service tech 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.4 Active 781524988 SP Problem History of pulmonary embolism Z86.711 Active 900786442 SP Problem Type 2 diabetes mellitus with other diabetic kid allen complication SP Active 17507363 SP Problem Insomnia G47.00 Active 022823604 SP Problem Degenerative disc disease, lumbar M51.36 Active 09863680 SP Problem HTN (hypertension) I10 Active 3 1455675 SP Problem Hyperlipidemia E78.5 Active 61913 004 SP Problem CAD (coronary artery disease) I25.10 Active 11460975 SP Problem Chronic pain G89.29 Active 0189798 1 SP Problem Post-traumatic stress disorder F43.10 Active 78803971 SP ALLERGIES No Information ENCOUNTERS Encounter Location Date Diagnosis POS [facility] [address] [facility] [id number] [address] [place] [phone] SP Jan, SP [facility] [address] [facility] [id number] [address] [place] [phone] SP Jan, SP [facility] [address] [facility] [id number] [address] [place] [phone] SP Jan, Slurred speech R47.81 ; Atax ia R27.0 and Left arm weakness SP [facility] [address] [facility] [id number] [address] [place] [phone] SP Jan, SP [facility] [address] [facility] [id number] [address] [place] [address] SP Jan, Type 2 diabetes mellitus wit h hyperglycemia E11.65 and SP vomiting with nausea, unspecified vomiting type R11.2 [facility] [address] [facility] [id number] [address] [place] [address] SP Dec, CAD (coronary artery disease ) I25.10 and Atypical chest pain SP [facility] [address] [facility] [id number] [address] [place] [phone] SP Dec, SP [facility] [address] [facility] [id number] [address] [place] [phone] SP Dec, Diabetes E11.9 ; Type 2 diab etes mellitus with hyperglycemia SP and Intractable vomiting with nausea, unspecified vomiting type R11.2 [facility] [address] [facility] [id number] [address] [place] [address] SP Dec, Chronic pain G89.29 SP [facility] [address] [facility] [id number] [address] [place] [address] SP November, SP [facility] [address] [facility] [id number] [address] [place] [address] SP November, Diabetes E11.9 ; CAD ([place] ry artery disease) I25.10 ; Atypical SP pain R07.89 ; Type 2 diabetes mellitus with hyperglycemia E11.65 ; 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.29 ; custodial 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.4 and Chronic pain G89.29 [facility] [address] [facility] [id number] [address] [place] [phone] SP Oct, SP [facility] [address] [facility] [id number] [address] [place] [address] SP Oct, Chronic pain G89.29 SP [facility] [address] [facility] [id number] [address] [place] [address] SP Sep, Diabetes E11.9 SP [facility] [address] [facility] [id number] [address] [place] [address] SP Sep, Chronic pain G89.29 SP [facility] [address] [facility] [id number] [address] [place] [address] SP Sep, SP [facility] [address] [facility] [id number] [address] [place] [address] SP Sep, Falls frequently R29.6 ; Elier g term 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.4 SP Type 2 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 E11.49 [facility] [address] [facility] [id number] [address] [place] [phone] SP Sep, SP [facility] [address] [facility] [id number] [address] [place] [phone] SP Sep, Diabetes E11.9 SP [facility] [address] [facility] [id number] [address] [place] [phone] SP Aug, SP [facility] [address] [facility] [id number] [address] [place] [address] SP Aug, Chronic pain G89.29 SP [facility] [address] [facility] [id number] [address] [place] [address] SP Aug, SP [facility] [address] [facility] [id number] [address] [place] [address] SP Aug, Chronic pain G89.29 SP [facility] [address] [facility] [id number] [address] [place] [address] SP Jul, SP [facility] [address] [facility] [id number] [address] [place] [phone] SP Jul, Diabetes E11.9 and Type 2 di abetes mellitus with other diabetic SP complication E11.29 [facility] [address] [facility] [id number] [address] [place] [phone] SP Jul, Type 2 diabetes mellitus wit h other diabetic kidney complication SP [facility] [address] [facility] [id number] [address] [place] [phone] SP Jul, SP [facility] [address] [facility] [id number] [address] [place] [phone] SP Jul, Chronic pain G89.29 SP [facility] [address] [facility] [id number] [address] [place] [phone] SP Jun, Diabetes E11.9 SP [facility] [address] [facility] [id number] [address] [place] [address] SP Jun, Chronic pain G89.29 SP [facility] [address] [facility] [id number] [address] [place] [address] SP Jun, Diabetes E11.9 ; Atypical ch est pain R07.89 ; custodial current SP of insulin Z79.4 ; 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.29 ; Type 2 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 E11.49 ; History of pulmonary embolism Z86.711 and History of CVA (cerebrovascular accident) Z86.73 [facility] [address] [facility] [id number] [address] [place] [address] SP May, SP [facility] [address] [facility] [id number] [address] [place] [address] SP May, Chronic pain G89.29 SP [facility] [address] [facility] [id number] [address] [place] [address] SP Apr, Chronic pain G89.29 SP [facility] [address] [facility] [id number] [address] [place] [phone] SP Apr, SP [facility] [address] [facility] [id number] [address] [place] [phone] SP Mar, Chronic pain G89.29 SP [facility] [address] [place] [id number] [address] [place] [address] SP 18 Mar, 2017 Diabetes E11.9 SP [place] [address] [place] [id number] [place] [phone] SP 07 Mar, 2017 SP [place] [address] [place] [id number] [place] [phone] SP Mar, Degenerative disc disease, l umbar M51.36 SP [facility] [address] [place] [id number] [place] [phone] SP Feb, Diabetes E11.9 SP [place] [address] [place] [id number] [place] [phone] SP 23 Feb, 2017 Diabetes E11.9 SP [place] [address] [place] [id number] [place] [phone] SP 16 Feb, 2017 Diabetes E11.9 ; HTN (hypert ension) I10 ; Diabetic neuropathy SP and Leg cramps R25.2 [place] [address] [phone] SP 15 Feb, 2017 Sprain of calcaneofibular li gament of right ankle, subsequent SP S93.411D ; Major depressive disorder, recurrent episode, moderate F33.1 ; Diabetes E11.9 ; Hyperlipidemia E78.5 ; Post-traumatic stress disorder F43.10 and Other irritable bowel syndrome K58.8 [place] [address] [phone] SP 14 Feb, 2017 Major depressive disorder, r ecurrent episode, moderate F33.1 ; SPtraumatic stress disorder F43.10 and Obsessive-compulsive disorder, unspecified type F42.9 [place] [address] [phone] SP Feb, SP [place] [address] [place] [id number] [place] [phone] SP 09 Feb, 2017 Post-traumatic stress disord er F43.10 and Major depressive SP recurrent, moderate F33.1 [place] [address] [id number] [address] [place] [address] SP Feb, Diabetes E11.9 SP [facility] [address] [id number] [address] [place] [phone] SP Feb, Degenerative disc disease, l umbar M51.36 SP [facility] [address] [id number] [address] [place] [address] SP Feb, Post-traumatic stress disord er F43.10 and Major depressive SP recurrent, moderate F33.1 [facility] [address] [id number] [address] [place] [address] SP Feb, SP [facility] [address] [id number] [address] [place] [phone] SP Feb, Diabetes E11.9 SP [facility] [address] [id number] [address] [place] [phone] SP Jan, Diabetes E11.9 SP [facility] [address] [id number] [address] [place] [phone] SP Jan, Post-traumatic stress disord er F43.10 and Major depressive SP recurrent, moderate F33.1 [facility] [address] [id number] [address] [place] [phone] SP Jan, Diabetes E11.9 SP [facility] [address] [id number] [address] [place] [phone] SP Jan, Diabetes E11.9 SP [facility] [address] [id number] [address] [place] [phone] SP Jan, SP [facility] [address] [id number] [address] [place] [phone] SP Jan, SP [facility] [address] [id number] [address] [place] [phone] SP Jan, Post-traumatic stress disord er F43.10 and Major depressive SP recurrent, moderate F33.1 [facility] [address] [id number] [address] [place] [phone] SP Jan, SP [facility] [address] [id number] [address] [place] [phone] SP Jan, Major depressive disorder, r ecurrent episode, moderate F33.1 ; SPtraumatic stress disorder F43.10 and Obsessive-compulsive disorder, unspecified type F42.9 [facility] [address] [id number] [address] [place] [address] SP Jan, SP [facility] [address] [id number] [address] [place] [phone] SP Jan, Diabetes E11.9 SP [facility] [address] [id number] [address] [place] [phone] SP Jan, SP [facility] [address] [id number] [address] [place] [phone] SP Jan, Sprain of calcaneofibular li gament of right ankle, subsequent SP S93.411D [facility] [address] [id number] [address] [place] [phone] SP Jan, Post-traumatic stress disord er F43.10 and Major depressive SP recurrent, moderate F33.1 [facility] [address] [id number] [address] [place] [phone] SP Jan, Diabetes E11.9 SP [facility] [address] [id number] [address] [place] [phone] SP Dec, Major depressive disorder, r ecurrent episode, moderate F33.1 ; SPtraumatic stress disorder F43.10 and Obsessive-compulsive disorder, unspecified type F42.9 [facility] [address] [id number] [address] [place] [phone] SP Dec, SP [facility] [address] [id number] [address] [place] [phone] SP 14 Dec, 2016 Sprain of calcaneofibular li gament of right ankle, subsequent SP S93.411D [facility] [address] [id number] [address] [place] [address] SP Dec, Post-traumatic stress disord er F43.10 and Major depressive SP recurrent, moderate F33.1 [facility] [address] [id number] [address] [place] [phone] SP Dec, Sprain of calcaneofibular li gament of right ankle, subsequent SP S93.411D [facility] [address] [id number] [address] [place] [phone] SP Dec, Hyperlipidemia E78.5 SP [place] [address] [id number] [address] [place] [address] SP Dec, SP [place] [address] [facility] [id number] [address] [place] [address] SP Dec, Diabetes E11.9 ; Diabetic ne uropathy E11.40 ; Degenerative disc SP lumbar M51.36 ; Hyperlipidemia E78.5 ; Insomnia G47.00 ; CAD (coronary artery disease) I25.10 ; Major depressive disorder, recurrent, moderate F33.1 ; Post- traumatic stress disorder F43.10 and Other irritable bowel syndrome K58.8 [place] [address] [id number] [address] [place] [address] SP November, Diabetic neuropathy E11.40 a nd Hyperlipidemia E78.5 SP [place] [address] [id number] [address] [place] [address] SP November, Degenerative disc disease, l umbar M51.36 SP [place] [address] [facility] [id number] [address] [place] [phone] SP Oct, SP [place] [address] [facility] [id number] [address] [place] [address] SP Oct, Degenerative disc disease, l umbar M51.36 SP [place] [address] [facility] [id number] [address] [place] [address] SP Sep, Degenerative disc disease, l umbar M51.36 and HTN (hypertension) SP [facility] [address] [place] [id number] [place] [address] SP Sep, Diabetic neuropathy E11.40 ; HTN (hypertension) I10 ; SP disc disease, lumbar M51.36 ; Hyperlipidemia E78.5 ; Insomnia G47.00 ; CAD (coronary artery disease) I25.10 and Diabetes E11.9 [facility] [address] [facility] [id number] [address] [place] [address] SP Aug, SP [facility] [address] [place] [id number] [address] [place] [address] SP Aug, Type 2 diabetes mellitus wit h hyperglycemia E11.65 SP [facility] [address] [place] [id number] [address] [place] [address] SP Aug, SP [facility] [address] [place] [id number] [address] [place] [phone] SP Jul, SP [facility] [address] [facility] [id number] [address] [place] [address] SP Jul, SP [facility] [address] [place] [id number] [address] [place] [address] SP Jun, SP [facility] [address] [place] [id number] [address] [place] [phone] SP Jun, SP [facility] [address] [place] [id number] [address] [place] [address] SP Jun, SP [facility] [address] [facility] [id number] [address] [place] [phone] SP Jun, SP [facility] [address] [place] [id number] [address] [place] [phone] SP May, Major depressive disorder, r ecurrent episode, moderate F33.1 and SPtraumatic stress disorder F43.10 [facility] [address] [place] [id number] [address] [place] [address] SP May, Major depressive disorder, r ecurrent episode, moderate F33.1 and SPtraumatic stress disorder F43.10 [place] [id number] [facility] [id number] [address] [place] [address] SP May, Diabetes E11.9 ; Diabetic ne uropathy E11.40 ; HTN (hypertension) SP ; Gastritis K29.70 ; Hyperlipidemia E78.5 ; Insomnia G47.00 and Major depressive disorder, recurrent, moderate F33.1 [place] [address] [facility] [id number] [address] [place] [address] SP May, Major depressive disorder, r ecurrent episode, moderate F33.1 SP [place] [address] [facility] [id number] [address] [place] [address] SP Apr, SP [place] [address] [facility] [id number] [place] [phone] SP Apr, Major depressive disorder, r ecurrent episode, moderate F33.1 and SPtraumatic stress disorder F43.10 [place] [address] [facility] [id number] [address] [place] [address] SP Apr, Diabetes E11.9 ; Diabetic ne uropathy E11.40 ; Degenerative disc SP lumbar M51.36 ; HTN (hypertension) I10 ; Hyperlipidemia E78.5 ; Chronic pain G89.29 ; CAD (coronary artery disease) I25.10 and Major depressive disorder, recurrent, moderate F33.1 [place] [address] [facility] [id number] [address] [place] [address] SP Apr, Major depressive disorder, r ecurrent episode, moderate F33.1 and SPtraumatic stress disorder F43.10 [place] [address] [facility] [id number] [address] [place] [address] SP Apr, Major depressive disorder, r ecurrent episode, moderate F33.1 and SPtraumatic stress disorder F43.10 [place] [address] [place] [id number] [address] [place] [address] SP Apr, Major depressive disorder, r ecurrent episode, moderate F33.1 and SP episodic mood disorder F39 [place] [address] [facility] [id number] [address] [place] [address] SP Apr, Chronic pain G89.29 ; Diabet ic neuropathy E11.40 ; HTN SP I10 ; Insomnia G47.00 ; CAD (coronary artery disease) I25.10 ; Hyperlipidemia E78.5 ; Degenerative disc disease, lumbar M51.36 ; Diabetes E11.9 and Gastritis K29.70 [place] [address] [facility] [id number] [address] [place] [address] SP Sep, SP [place] [address] [facility] [id number] [address] [place] [phone] SP Aug, SP [place] [address] [facility] [id number] [address] [place] [address] SP Jul, Major depressive disorder, r ecurrent episode, moderate F33.1 SP [place] [address] [facility] [id number] [address] [place] [address] SP Jul, Unspecified episodic mood di sorder F39 SP [facility] [address] [facility] [id number] [address] [place] [address] SP Jul, SP [facility] [address] [facility] [id number] [address] [place] [address] SP Jul, SP [facility] [address] [facility] [id number] [address] [place] [address] SP Jul, SP [facility] [address] [facility] [id number] [address] [place] [address] SP Jul, Type 2 diabetes mellitus wit h hyperglycemia E11.65 ; Diabetic SP E11.40 ; Degenerative disc disease, lumbar M51.36 ; HTN (hypertension) I10 ; Gastritis K29.70 ; Hyperlipidemia E78.5 and CAD (coronary artery disease) I25.10 [place] [address] [facility] [id number] [address] [place] [address] SP Jul, Severe episode of recurrent major depressive disorder, without SP features F33.2 [place] [address] [place] [id number] [place] [address] SP Jul, SP [facility] [address] [place] [id number] [place] [phone] SP Jun, SP [facility] [address] [place] [id number] [place] [phone] SP Jun, Diabetes E11.9 ; Diabetic ne uropathy E11.40 ; Degenerative disc SP lumbar M51.36 ; HTN (hypertension) I10 ; Gastritis K29.70 ; Hyperlipidemia E78.5 ; Unspecified episodic mood disorder F39 ; Depression F32.9 and CAD (coronary artery disease) I25.10 [place] [address] [id number] SP Jun, SP [place] [address] [id number] SP Jun, SP [place] [id number] [place] [id number] [place] [id number] SP Jun, Diabetes E11.9 ; Diabetic ne uropathy E11.40 ; Degenerative disc SP lumbar M51.36 ; HTN (hypertension) I10 ; Gastritis K29.70 ; Chronic pain G89.29 ; Insomnia G47.00 and Unspecified episodic mood disorder F39 [place] [address] [id number] SP May, Diabetic neuropathy E11.40 ; Degenerative disc disease, lumbar SP ; HTN (hypertension) I10 ; Gastritis K29.70 ; Hyperlipidemia E78.5 ; Chronic pain G89.29 ; Insomnia G47.00 ; Unspecified episodic mood disorder F39 ; Diabetes E11.9 ; CAD (coronary artery disease) I25.10 and H/O Gram positive sepsis Z86.19 [place] [id number] [place] [id number] [place] [id number] SP May, SP [facility] [address] [id number] [address] [place] [id number] SP May, SP [facility] [address] [facility] [id number] [address] [place] [id number] SP May, SP [facility] [address] [facility] [id number] [address] [place] [id number] SP May, SP [facility] [address] [facility] [id number] [address] [place] [id number] SP May, Diabetes E11.9 ; Chronic cachorro n G89.29 ; UTI (urinary tract SP N39.0 ; Hyperlipidemia E78.5 and Diabetic neuropathy E11.40 [facility] [address] [facility] [id number] [address] [place] [phone] SP May, Insomnia, unspecified G47.00 and Chronic pain G89.29 SP [facility] [address] [facility] [id number] [address] [place] [id number] SP May, SP [facility] [address] [facility] [id number] [address] [place] [id number] SP May, SP [facility] [address] [facility] [id number] [address] [place] [phone] SP May, SP [facility] [address] [facility] [id number] [address] [place] [phone] SP Apr, Insomnia, unspecified G47.00 ; Chronic pain G89.29 and SP episodic mood disorder F39 [facility] [address] [id number] [address] [place] [phone] SP Apr, Unspecified episodic mood di sorder F39 SP [facility] [address] [facility] [id number] [address] [place] [phone] SP Apr, Major depression F32.9 SP [facility] [address] [facility] [id number] [address] [place] [phone] SP Apr, SP [facility] [address] [id number] SP Apr, Diabetes E11.9 ; Diabetic ne uropathy E11.40 ; Degenerative disc SP lumbar M51.36 ; HTN (hypertension) I10 ; Gastritis K29.70 ; Hyperlipidemia E78.5 ; Chronic pain G89.29 and Insomnia G47.00 [place] [address] [id number] SP Mar, SP [place] [address] [id number] SP Mar, [place] [address] [id number] SP Mar, [place] [address] [id number] SP Mar, Diabetes mellitus 250.00 ; D iabetic neuropathy 250.60 ; CAD SP artery disease) 414.00 ; Degenerative disc disease, lumbar 722.52 ; Gastritis 535.50 and Insomnia 780.52 [place] [address] [id number] SP Mar, Diabetes mellitus 250.00 ; D egenerative disc disease, lumbar SP ; Essential hypertension 401.9 ; Gastritis 535.50 and Chronic pain 338.29 [place] [address] [id number] SP Feb, [place] [address] [id number] SP Feb, [facility] [place] [address] [id number] SP Jan, [place] [address] [address] SP Jan, Diabetes mellitus 250.00 ; D iabetic neuropathy 250.60 ; SP disc disease, lumbar 722.52 ; CAD (coronary artery disease) 414.00 ; Essential hypertension 401.9 ; Gastritis 535.50 ; Hyperlipidemia 272.4 and Distal end of ulna fracture, closed 813.43 [facility] [address] [facility] [id number] [address] [place] [phone] SP Dec, Wrist pain 719.43 and Diabet es mellitus 250.00 SP [facility] [address] [facility] [id number] [address] [place] [phone] SP May, SP [facility] [address] [id number] [address] [place] [phone] SP Dec, SP [facility] [address] [facility] [id number] [address] [place] [phone] SP November, SP [facility] [address] [facility] [id number] [address] [place] [phone] SP Oct, SP [facility] [address] [facility] [id number] [address] [place] [phone] SP Sep, SP [facility] [address] [facility] [id number] [address] [place] [phone] SP Sep, SP [facility] [address] [facility] [id number] [address] [place] [phone] SP Jun, SP [facility] [address] [facility] [id number] [address] [place] [id number] SP Jun, SP [facility] [address] [facility] [id number] [address] [place] [phone] SP Jun, SP [facility] [address] [facility] [id number] [address] [place] [phone] SP Jun, SP [facility] [address] [facility] [id number] [address] [place] [phone] SP Jun, SP [facility] [address] [facility] [id number] [address] [place] [phone] SP Jun, SP [facility] [address] [facility] [id number] [address] [place] [phone] SP Jun, SP [facility] [address] [id number] [address] [place] [phone] SP May, SP [facility] [address] [id number] [address] [place] [phone] SP May, SP [facility] [address] [facility] [id number] [address] [place] [phone] SP May, SP [facility] [address] [facility] [id number] [address] [place] [phone] SP May, SP [facility] [address] [facility] [id number] [address] [place] [phone] SP Apr, SP [facility] [address] [facility] [id number] [address] [place] [phone] SP Apr, SP [facility] [address] [facility] [id number] [address] [place] [phone] SP Apr, SP [facility] [address] [facility] [id number] [address] [place] [phone] SP Mar, SP [facility] [address] [facility] [id number] [address] [place] [phone] SP Dec, SP IMMUNIZATIONS No Known Immunizations [...]
--- OUTSIDE RECORDS SUMMARY | 2019-06-14 01:44 | XMS REPORT ---
Author Author JALEN PEREZ POS Organization [facility] SP Address [address] [place] [address] SP Care Team Providers Care Traffic Signal Supervisor Maintenance Name Role Phone POS RISSAKARTIKFLAQUITOY Unavailable SP PROBLEMS Type Condition ICD9-CM Code [id number] Code Onset Dates Condition S tatus SNOMED POS Problem Type 2 diabetes mellitus with hyperglycemia E11.65 Active POS Problem Major depressive disorder, recurrent episode, moderate F33.1 Active SP Problem Obsessive-compulsive disorder, unspecified type F4 2.9 Active SP Problem Ataxia R27.0 Active [id number] SP Problem Falls frequently R29.6 Active [id number] 039431 SP Problem Type 2 diabetes mellitus with other diab etic neurological complication SP E11.49 Active 26225875 SP Problem 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.4 Active 892035177 SP Problem History of pulmonary embolism Z86.711 Active 367507891 SP Problem Type 2 diabetes mellitus with other diabetic kid allen complication SP Active 14801936 SP Problem Insomnia G47.00 Active 970523018 SP Problem Degenerative disc disease, lumbar M51.36 Active 88741043 SP Problem HTN (hypertension) I10 Active 3 8249020 SP Problem Hyperlipidemia E78.5 Active 90346 004 SP Problem CAD (coronary artery disease) I25.10 Active 87900499 SP Problem Chronic pain G89.29 Active 4838306 1 SP Problem Post-traumatic stress disorder F43.10 Active 75093506 SP ALLERGIES No Information ENCOUNTERS Encounter Location Date Diagnosis POS [facility] [id number] [place] [phone] SP Jan, Slurred speech R47.81 ; Atax ia R27.0 and Left arm weakness SP [facility] [address] [facility] [id number] [address] [place] [phone] SP Jan, SP [facility] [address] [facility] [id number] [address] [place] [phone] SP Jan, Type 2 diabetes mellitus wit h hyperglycemia E11.65 and SP vomiting with nausea, unspecified vomiting type R11.2 [place] [address] [address] [facility] [id number] [address] [place] [phone] SP Dec, CAD (coronary artery disease ) I25.10 and Atypical chest pain SP [place] [address] [address] [facility] [id number] [address] [place] [phone] SP Dec, SP [place] [address] [facility] [id number] [place] [phone] SP Dec, Diabetes E11.9 ; Type 2 diab etes mellitus with hyperglycemia SP and Intractable vomiting with nausea, unspecified vomiting type R11.2 [place] [address] [place] [id number] [place] [phone] SP Dec, Chronic pain G89.29 SP [place] [address] [place] [id number] [place] [phone] SP November, SP [place] [address] [place] [id number] [place] [phone] SP November, Diabetes E11.9 ; CAD ([place]in[place] ry artery disease) I25.10 ; Atypical SP pain R07.89 ; Type 2 diabetes mellitus with hyperglycemia E11.65 ; 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.29 ; penitentiary 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.4 and Chronic pain G89.29 [place] [address] [address] [facility] [id number] [address] [place] [phone] SP Oct, SP [place] [address] [place] [id number] [place] [phone] SP Oct, Chronic pain G89.29 SP [place] [address] [place] [id number] [place] [phone] SP Sep, Diabetes E11.9 SP [place] [address] [place] [id number] [place] [phone] SP Sep, Chronic pain G89.29 SP [facility] [address] [facility] [id number] [address] [place] [phone] SP Sep, SP [facility] [address] [facility] [id number] [address] [place] [phone] SP Sep, Falls frequently R29.6 ; Elier g term 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.4 SP Type 2 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 E11.49 [facility] [address] [facility] [id number] [address] [place] [phone] SP Sep, SP [facility] [address] [facility] [id number] [address] [place] [phone] SP Sep, Diabetes E11.9 SP [facility] [address] [facility] [id number] [address] [place] [phone] SP Aug, SP [facility] [address] [facility] [id number] [address] [place] [phone] SP Aug, Chronic pain G89.29 SP [facility] [address] [facility] [id number] [address] [place] [phone] SP Aug, SP [facility] [address] [facility] [id number] [address] [place] [phone] SP Aug, Chronic pain G89.29 SP [facility] [address] [facility] [id number] [address] [place] [phone] SP Jul, SP [facility] [address] [facility] [id number] [address] [place] [phone] SP Jul, Diabetes E11.9 and Type 2 di abetes mellitus with other diabetic SP complication E11.29 [facility] [address] [facility] [id number] [address] [place] [phone] SP Jul, Type 2 diabetes mellitus wit h other diabetic kidney complication SP [facility] [address] [facility] [id number] [address] [place] [phone] SP Jul, SP [facility] [address] [facility] [id number] [address] [place] [phone] SP Jul, Chronic pain G89.29 SP [facility] [address] [facility] [id number] [address] [place] [phone] SP Jun, Diabetes E11.9 SP [facility] [address] [facility] [id number] [address] [place] [phone] SP Jun, Chronic pain G89.29 SP [facility] [address] [facility] [id number] [address] [place] [phone] SP Jun, Diabetes E11.9 ; Atypical ch est pain R07.89 ; penitentiary current SP of insulin Z79.4 ; 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.29 ; Type 2 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 E11.49 ; History of pulmonary embolism Z86.711 and History of CVA (cerebrovascular accident) Z86.73 [facility] [address] [facility] [id number] [address] [place] [phone] SP May, SP [facility] [address] [facility] [id number] [address] [place] [phone] SP May, Chronic pain G89.29 SP [facility] [address] [facility] [id number] [address] [place] [phone] SP Apr, Chronic pain G89.29 SP [facility] [address] [facility] [id number] [address] [place] [phone] SP Apr, SP [facility] [address] [facility] [id number] [address] [place] [phone] SP Mar, Chronic pain G89.29 SP [facility] [address] [facility] [id number] [address] [place] [phone] SP Mar, Diabetes E11.9 SP [facility] [address] [facility] [id number] [address] [place] [phone] SP Mar, SP [facility] [address] [facility] [id number] [address] [place] [phone] SP Mar, Degenerative disc disease, l umbar M51.36 SP [place] [address] [facility] [id number] [place] [phone] SP Feb, Diabetes E11.9 SP [place] [address] [place] [id number] [place] [phone] SP Feb, Diabetes E11.9 SP [place] [address] [place] [id number] [place] [phone] SP Feb, Diabetes E11.9 ; HTN (hypert ension) I10 ; Diabetic neuropathy SP and Leg cramps R25.2 [place] [address] [facility] [id number] [place] [phone] SP Feb, Sprain of calcaneofibular li gament of right ankle, subsequent SP S93.411D ; Major depressive disorder, recurrent episode, moderate F33.1 ; Diabetes E11.9 ; Hyperlipidemia E78.5 ; Post-traumatic stress disorder F43.10 and Other irritable bowel syndrome K58.8 [place] [address] [phone] SP Feb, Major depressive disorder, r ecurrent episode, moderate F33.1 ; SPtraumatic stress disorder F43.10 and Obsessive-compulsive disorder, unspecified type F42.9 [place] [address] [place] [id number] [place] [phone] SP Feb, SP [place] [address] [facility] [id number] [address] [place] [phone] SP Feb, Post-traumatic stress disord er F43.10 and Major depressive SP recurrent, moderate F33.1 [place] [address] [facility] [id number] [address] [place] [phone] SP Feb, Diabetes E11.9 SP [place] [address] [place] [id number] [place] [phone] SP Feb, Degenerative disc disease, l umbar M51.36 SP [facility] [address] [id number] [address] [place] [phone] SP Feb, Post-traumatic stress disord er F43.10 and Major depressive SP recurrent, moderate F33.1 [facility] [address] [id number] [address] [place] [phone] SP Feb, SP [facility] [address] [id number] [address] [place] [phone] SP Feb, Diabetes E11.9 SP [facility] [address] [id number] [address] [place] [phone] SP Jan, Diabetes E11.9 SP [facility] [address] [id number] [address] [place] [phone] SP Jan, Post-traumatic stress disord er F43.10 and Major depressive SP recurrent, moderate F33.1 [facility] [address] [id number] [address] [place] [phone] SP Jan, Diabetes E11.9 SP [facility] [address] [id number] [address] [place] [phone] SP Jan, Diabetes E11.9 SP [facility] [address] [id number] [address] [place] [phone] SP Jan, SP [facility] [address] [id number] [address] [place] [phone] SP Jan, SP [facility] [address] [id number] [address] [place] [phone] SP Jan, Post-traumatic stress disord er F43.10 and Major depressive SP recurrent, moderate F33.1 [facility] [address] [id number] [address] [place] [phone] SP Jan, SP [facility] [address] [facility] [id number] [address] [place] [phone] SP 17 [place], 2017 Major depressive disorder, r ecurrent episode, moderate F33.1 ; SPtraumatic stress disorder F43.10 and Obsessive-compulsive disorder, unspecified type F42.9 [facility] [address] [id number] [address] [place] [phone] SP Jan, SP [facility] [address] [id number] [address] [place] [phone] SP Jan, Diabetes E11.9 SP [facility] [address] [id number] [address] [place] [phone] SP Jan, SP [facility] [address] [id number] [address] [place] [phone] SP Jan, Sprain of calcaneofibular li gament of right ankle, subsequent SP S93.411D [facility] [address] [id number] [address] [place] [phone] SP Jan, Post-traumatic stress disord er F43.10 and Major depressive SP recurrent, moderate F33.1 [facility] [address] [id number] [address] [place] [phone] SP Jan, Diabetes E11.9 SP [facility] [address] [id number] [address] [place] [phone] SP 16 Dec, 2016 Major depressive disorder, r ecurrent episode, moderate F33.1 ; SPtraumatic stress disorder F43.10 and Obsessive-compulsive disorder, unspecified type F42.9 [facility] [address] [id number] [address] [place] [phone] SP 15 Dec, 2016 SP [facility] [address] [id number] [address] [place] [phone] SP 14 Dec, 2016 Sprain of calcaneofibular li gament of right ankle, subsequent SP S93.411D [facility] [address] [id number] [address] [place] [phone] SP Dec, Post-traumatic stress disord er F43.10 and Major depressive SP recurrent, moderate F33.1 [place] [address] [facility] [id number] [address] [place] [phone] SP 13 Dec, 2016 Sprain of calcaneofibular li gament of right ankle, subsequent SP S93.411D [place] [address] [place] [id number] [place] [phone] SP Dec, Hyperlipidemia E78.5 SP [place] [address] [place] [id number] [place] [phone] SP Dec, SP [place] [address] [place] [id number] [place] [phone] SP Dec, Diabetes E11.9 ; Diabetic ne uropathy E11.40 ; Degenerative disc SP lumbar M51.36 ; Hyperlipidemia E78.5 ; Insomnia G47.00 ; CAD (coronary artery disease) I25.10 ; Major depressive disorder, recurrent, moderate F33.1 ; Post- traumatic stress disorder F43.10 and Other irritable bowel syndrome K58.8 [place] [id number] [place] [phone] SP November, Diabetic neuropathy E11.40 a nd Hyperlipidemia E78.5 SP [place] [address] [place] [id number] [place] [phone] SP November, Degenerative disc disease, l umbar M51.36 SP [place] [address] [place] [id number] [place] [phone] SP Oct, SP [place] [address] [place] [id number] [place] [phone] SP Oct, Degenerative disc disease, l umbar M51.36 SP [place] [address] [place] [id number] [place] [phone] SP Sep, Degenerative disc disease, l umbar M51.36 and HTN (hypertension) SP [place] [address] [place] [id number] [place] [phone] SP Sep, Diabetic neuropathy E11.40 ; HTN (hypertension) I10 ; SP disc disease, lumbar M51.36 ; Hyperlipidemia E78.5 ; Insomnia G47.00 ; CAD (coronary artery disease) I25.10 and Diabetes E11.9 [facility] [address] [facility] [id number] [address] [place] [phone] SP Aug, SP [facility] [address] [facility] [id number] [address] [place] [phone] SP Aug, Type 2 diabetes mellitus wit h hyperglycemia E11.65 SP [facility] [address] [facility] [id number] [address] [place] [phone] SP Aug, SP [facility] [address] [facility] [id number] [address] [place] [phone] SP Jul, SP [facility] [address] [facility] [id number] [address] [place] [phone] SP Jul, SP [facility] [address] [facility] [id number] [address] [place] [phone] SP Jun, SP [facility] [address] [facility] [id number] [address] [place] [phone] SP Jun, SP [facility] [address] [facility] [id number] [address] [place] [phone] SP Jun, SP [facility] [address] [facility] [id number] [address] [place] [phone] SP Jun, SP [facility] [address] [facility] [id number] [address] [place] [phone] SP May, Major depressive disorder, r ecurrent episode, moderate F33.1 and SPtraumatic stress disorder F43.10 [facility] [address] [facility] [id number] [address] [place] [phone] SP May, Major depressive disorder, r ecurrent episode, moderate F33.1 and SPtraumatic stress disorder F43.10 [facility] [address] [facility] [id number] [address] [place] [phone] SP May, Diabetes E11.9 ; Diabetic ne uropathy E11.40 ; HTN (hypertension) SP ; Gastritis K29.70 ; Hyperlipidemia E78.5 ; Insomnia G47.00 and Major depressive disorder, recurrent, moderate F33.1 [facility] [address] [facility] [id number] [address] [place] [phone] SP May, Major depressive disorder, r ecurrent episode, moderate F33.1 SP [facility] [address] [facility] [id number] [address] [place] [phone] SP Apr, SP [facility] [address] [facility] [id number] [address] [place] [phone] SP Apr, Major depressive disorder, r ecurrent episode, moderate F33.1 and SPtraumatic stress disorder F43.10 [place] [address] [facility] [id number] [address] [place] [phone] SP Apr, Diabetes E11.9 ; Diabetic ne uropathy E11.40 ; Degenerative disc SP lumbar M51.36 ; HTN (hypertension) I10 ; Hyperlipidemia E78.5 ; Chronic pain G89.29 ; CAD (coronary artery disease) I25.10 and Major depressive disorder, recurrent, moderate F33.1 [place] [address] [facility] [id number] [address] [place] [phone] SP Apr, Major depressive disorder, r ecurrent episode, moderate F33.1 and SPtraumatic stress disorder F43.10 [place] [address] [facility] [id number] [address] [place] [phone] SP Apr, Major depressive disorder, r ecurrent episode, moderate F33.1 and SPtraumatic stress disorder F43.10 [place] [address] [facility] [id number] [address] [place] [phone] SP Apr, Major depressive disorder, r ecurrent episode, moderate F33.1 and SP episodic mood disorder F39 [place] [address] [facility] [id number] [address] [place] [phone] SP Apr, Chronic pain G89.29 ; Diabet ic neuropathy E11.40 ; HTN SP I10 ; Insomnia G47.00 ; CAD (coronary artery disease) I25.10 ; Hyperlipidemia E78.5 ; Degenerative disc disease, lumbar M51.36 ; Diabetes E11.9 and Gastritis K29.70 [place] [address] [facility] [id number] [address] [place] [phone] SP Sep, SP [place] [address] [phone] SP Aug, SP [place] [address] [phone] SP Jul, Major depressive disorder, r ecurrent episode, moderate F33.1 SP [place] [address] [phone] SP Jul, Unspecified episodic mood di sorder F39 SP [place] [address] [place] [phone] SP Jul, SP [place] [address] [id number] SP Jul, SP [place] [address] [address] SP Jul, [place] [address] [phone] SP Jul, Type 2 diabetes mellitus wit h hyperglycemia E11.65 ; Diabetic SP E11.40 ; Degenerative disc disease, lumbar M51.36 ; HTN (hypertension) I10 ; Gastritis K29.70 ; Hyperlipidemia E78.5 and CAD (coronary artery disease) I25.10 [place] [address] [id number] SP Jul, Severe episode of recurrent major depressive disorder, without SP features F33.2 [place] [address] [place] [id number] [place] [phone] SP Jul, SP [place] [address] [facility] [id number] [address] [place] [phone] SP Jun, SP [facility] [address] [place] [id number] [place] [address] SP Jun, Diabetes E11.9 ; Diabetic ne uropathy E11.40 ; Degenerative disc SP lumbar M51.36 ; HTN (hypertension) I10 ; Gastritis K29.70 ; Hyperlipidemia E78.5 ; Unspecified episodic mood disorder F39 ; Depression F32.9 and CAD (coronary artery disease) I25.10 [place] [address] [place] [id number] [place] [phone] SP Jun, SP [place] [address] [place] [id number] [place] [phone] SP Jun, SP [facility] [address] [place] [id number] [place] [id number] SP Jun, Diabetes E11.9 ; Diabetic ne uropathy E11.40 ; Degenerative disc SP lumbar M51.36 ; HTN (hypertension) I10 ; Gastritis K29.70 ; Chronic pain G89.29 ; Insomnia G47.00 and Unspecified episodic mood disorder F39 [place] [address] [place] [id number] [place] [address] SP May, Diabetic neuropathy E11.40 ; Degenerative disc disease, lumbar SP ; HTN (hypertension) I10 ; Gastritis K29.70 ; Hyperlipidemia E78.5 ; Chronic pain G89.29 ; Insomnia G47.00 ; Unspecified episodic mood disorder F39 ; Diabetes E11.9 ; CAD (coronary artery disease) I25.10 and H/O Gram positive sepsis Z86.19 [facility] [address] [facility] [id number] [address] [place] [phone] SP May, SP [facility] [address] [place] [id number] [place] [phone] SP May, SP [facility] [address] [place] [id number] [place] [phone] SP May, [facility] [address] [facility] [id number] [address] [place] [phone] SP May, SP [facility] [address] [facility] [id number] [address] [place] [phone] SP May, UTI (urinary tract infection ) N39.0 ; Diabetes E11.9 ; Diabetic SP E11.40 ; Hyperlipidemia E78.5 and Chronic pain G89.29 [facility] [address] [facility] [id number] [address] [place] [phone] SP May, Insomnia, unspecified G47.00 and Chronic pain G89.29 SP [place] [address] [facility] [id number] [address] [place] [phone] SP May, SP [place] [address] [facility] [id number] [address] [place] [phone] SP May, SP [facility] [address] [place] [id number] [place] [phone] SP May, SP [facility] [address] [facility] [id number] [address] [place] [phone] SP Apr, Insomnia, unspecified G47.00 ; Chronic pain G89.29 and SP episodic mood disorder F39 [place] [address] [facility] [id number] [address] [place] [id number] SP Apr, Unspecified episodic mood di sorder F39 SP [facility] [address] [facility] [id number] [address] [place] [id number] SP Apr, Major depression F32.9 SP [facility] [address] [facility] [id number] [address] [place] [id number] SP Apr, SP [facility] [address] [facility] [id number] [address] [place] [phone] SP Apr, Diabetes E11.9 ; Diabetic ne uropathy E11.40 ; Degenerative disc SP lumbar M51.36 ; HTN (hypertension) I10 ; Gastritis K29.70 ; Hyperlipidemia E78.5 ; Chronic pain G89.29 and Insomnia G47.00 [facility] [address] [id number] SP Mar, SP [facility] [address] [phone] SP Mar, SP [facility] [address] [place] [id number] [place] [phone] SP Mar, SP [facility] [address] [phone] SP Mar, Diabetes mellitus 250.00 ; D iabetic neuropathy 250.60 ; CAD SP artery disease) 414.00 ; Degenerative disc disease, lumbar 722.52 ; Gastritis 535.50 and Insomnia 780.52 [facility] [address] [id number] SP Mar, Diabetes mellitus 250.00 ; D egenerative disc disease, lumbar SP ; Essential hypertension 401.9 ; Gastritis 535.50 and Chronic pain 338.29 [facility] [address] [id number] SP Feb, SP [facility] [address] [id number] SP Feb, [facility] [address] [id number] SP Jan, SP [facility] [address] [address] SP Jan, Diabetes mellitus 250.00 ; D iabetic neuropathy 250.60 ; SP disc disease, lumbar 722.52 ; CAD (coronary artery disease) 414.00 ; Essential hypertension 401.9 ; Gastritis 535.50 ; Hyperlipidemia 272.4 and Distal end of ulna fracture, closed 813.43 [facility] [address] [place] [id number] [address] [place] [id number] SP Dec, Wrist pain 719.43 and Diabet es mellitus 250.00 SP [facility] [address] [id number] [address] [place] [address], [place] [address] SP May, SP [facility] [address] [id number] [address] [place] [address], [place] [address] SP Dec, SP [facility] [address] [id number] [address] [place] [address], [place] [address] SP November, SP [facility] [address] [id number] [address] [place] [address], [place] [address] SP 16 Oct, 2009 SP [facility] [address] [id number] [address] [place] [address], [place] [address] SP 17 Sep, 2009 SP [facility] [address] [id number] [address] [place] [address], [place] [address] SP Sep, SP [facility] [address] [id number] [address] [place] [address], [place] [address] SP Jun, SP [facility] [address] [id number] [address] [place] [address], [place] [address] SP Jun, SP [facility] [address] [id number] [address] [place] [address], [place] [id number] SP Jun, SP [facility] [address] [id number] [address] [place] [address], [place] [address] SP Jun, SP [facility] [address] [id number] [address] [place] [address], [place] [address] SP Jun, SP [facility] [address] [id number] [address] [place] [address], [place] [address] SP Jun, SP [facility] [address] [id number] [address] [place] [address], [place] [address] SP Jun, SP [facility] [address] [id number] [address] [place] [address], [place] [address] SP May, SP [facility] [address] [id number] [address] [place] [address] [address] SP 17 Nov, 2009 SP [facility] [address] [id number] [address] [place] [id number] SP May, SP [facility] [address] [id number] [address] [place] [id number] SP May, SP [facility] [address] [facility] [id number] [address] [place] [id number] SP Apr, SP [facility] [address] [facility] [id number] [address] [place] [id number] SP Apr, SP [facility] [address] [facility] [id number] [address] [place] [id number] SP Apr, SP [facility] [address] [facility] [id number] [address] [place] [id number] SP Mar, SP [facility] [address] [facility] [id number] [address] [place] [id number] SP Dec, SP IMMUNIZATIONS No Known Immunizations SOCIAL HISTORY Never Assessed REASON FOR VISIT Labs PLAN OF CARE VITAL SIGNS MEDICATIONS Unknown [...]
--- OUTSIDE RECORDS SUMMARY | 2019-06-14 01:45 | XMS REPORT ---
Author Author ANIBAL BOB POS Organization [facility] SP Address [address] [place] [address] SP Care Team Providers Care Natural Gas Engineer Name Role Phone POS ANIBAL BOB Unavailable SP PROBLEMS Type Condition ICD9-CM Code [id number] Code Onset Dates Condition S tatus SNOMED POS Problem Type 2 diabetes mellitus with hyperglycemia E11.65 Active POS Problem Obsessive-compulsive disorder, unspecified type F4 2.9 Active SP Problem Major depressive disorder, recurrent episode, moderate F33.1 Active SP Problem Falls frequently R29.6 Active 279 [id number] SP Problem Diabetes E11.9 Active [id number] SP Problem Type 2 diabetes mellitus with other diab etic neurological complication SP E11.49 Active 63624900 SP Problem History of pulmonary embolism Z86.711 Active 216098596 SP Problem [facility] 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.4 Active 210710288 SP Problem Type 2 diabetes mellitus with other diabetic kid allen complication SP Active 44897831 SP Problem Hyperlipidemia E78.5 Active 28656 004 SP Problem Insomnia G47.00 Active 376959122 SP Problem HTN (hypertension) I10 Active 3 4135833 SP Problem Chronic pain G89.29 Active 5843850 1 SP Problem CAD (coronary artery disease) I25.10 Active 14006075 SP Problem Degenerative disc disease, lumbar M51.36 Active 65127044 SP Problem Post-traumatic stress disorder F43.10 Active 26575034 SP ALLERGIES No Information ENCOUNTERS Encounter Location Date Diagnosis POS [facility] [address] [id number] [address] [place] [phone] SP November, SP [facility] [address] [facility] [id number] [address] [place] [phone] SP Oct, Chronic pain G89.29 SP [facility] [address] [id number] [address] [place] [phone] SP Sep, Diabetes E11.9 SP [facility] [address] [id number] [address] [place] [phone] SP Sep, Chronic pain G89.29 SP [facility] [address] [facility] [id number] [address] [place] [phone] SP Sep, SP [facility] [address] [facility] [id number] [address] [place] [phone] SP Sep, Falls frequently R29.6 ; Elier g term 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.4 SP Type 2 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 E11.49 [facility] [address] [facility] [id number] [address] [place] [phone] SP Sep, SP [facility] [address] [facility] [id number] [address] [place] [phone] SP Sep, Diabetes E11.9 SP [facility] [address] [facility] [id number] [address] [place] [phone] SP Aug, SP [facility] [address] [facility] [id number] [address] [place] [phone] SP Aug, Chronic pain G89.29 SP [facility] [address] [facility] [id number] [address] [place] [phone] SP Aug, SP [facility] [address] [facility] [id number] [address] [place] [phone] SP Aug, Chronic pain G89.29 SP [facility] [address] [facility] [id number] [address] [place] [phone] SP Jul, SP [facility] [address] [facility] [id number] [address] [place] [phone] SP Jul, Diabetes E11.9 and Type 2 di abetes mellitus with other diabetic SP complication E11.29 [facility] [address] [facility] [id number] [address] [place] [phone] SP Jul, Type 2 diabetes mellitus wit h other diabetic kidney complication SP [facility] [address] [facility] [id number] [address] [place] [phone] SP Jul, SP [facility] [address] [facility] [id number] [address] [place] [phone] SP Jul, Chronic pain G89.29 SP [facility] [address] [facility] [id number] [address] [place] [phone] SP Jun, Diabetes E11.9 SP [facility] [address] [facility] [id number] [address] [place] [phone] SP Jun, Chronic pain G89.29 SP [facility] [address] [facility] [id number] [address] [place] [phone] SP Jun, Diabetes E11.9 ; Atypical ch est pain R07.89 ; [facility] current SP of insulin Z79.4 ; 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.29 ; Type 2 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 E11.49 ; History of pulmonary embolism Z86.711 and History of CVA (cerebrovascular accident) Z86.73 [facility] [address] [facility] [id number] [address] [place] [phone] SP May, SP [facility] [address] [facility] [id number] [address] [place] [phone] SP May, Chronic pain G89.29 SP [facility] [address] [facility] [id number] [address] [place] [phone] SP Apr, Chronic pain G89.29 SP [facility] [address] [facility] [id number] [address] [place] [phone] SP Apr, SP [facility] [address] [facility] [id number] [address] [place] [phone] SP Mar, Chronic pain G89.29 SP [facility] [address] [facility] [id number] [address] [place] [phone] SP Mar, Diabetes E11.9 [address] [place] [address] [facility] [id number] [address] [place] [phone] SP Mar, SP [place] [address] [facility] [id number] [address] [place] [phone] SP Mar, Degenerative disc disease, l umbar M51.36 SP [place] [address] [facility] [id number] [address] [place] [phone] SP Feb, Diabetes E11.9 SP [place] [address] [facility] [id number] [place] [phone] SP Feb, Diabetes E11.9 SP [place] [id number] [place] [phone] SP Feb, Diabetes E11.9 ; HTN (hypert ension) I10 ; Diabetic neuropathy SP and Leg cramps R25.2 [place] [id number] [place] [phone] SP 15 Feb, 2017 Sprain of calcaneofibular li gament of right ankle, subsequent SP S93.411D ; Major depressive disorder, recurrent episode, moderate F33.1 ; Diabetes E11.9 ; Hyperlipidemia E78.5 ; Post-traumatic stress disorder F43.10 and Other irritable bowel syndrome K58.8 [place] [id number] [place] [phone] SP 14 Feb, 2017 Major depressive disorder, r ecurrent episode, moderate F33.1 ; SPtraumatic stress disorder F43.10 and Obsessive-compulsive disorder, unspecified type F42.9 [place] [address] [facility] [id number] [address] [place] [phone] SP Feb, SP [place] [id number] [place] [phone] SP Feb, Post-traumatic stress disord er F43.10 and Major depressive SP recurrent, moderate F33.1 [place] [id number] [place] [phone] SP Feb, Diabetes E11.9 SP [facility] [address] [id number] [address] [place] [phone] SP Feb, Degenerative disc disease, l umbar M51.36 SP [facility] [address] [id number] [address] [place] [phone] SP Feb, Post-traumatic stress disord er F43.10 and Major depressive SP recurrent, moderate F33.1 [facility] [address] [id number] [address] [place] [phone] SP Feb, SP [facility] [address] [id number] [address] [place] [phone] SP Feb, Diabetes E11.9 SP [facility] [address] [facility] [id number] [address] [place] [phone] SP Jan, Diabetes E11.9 SP [facility] [address] [id number] [address] [place] [phone] SP Jan, Post-traumatic stress disord er F43.10 and Major depressive SP recurrent, moderate F33.1 [facility] [address] [id number] [address] [place] [phone] SP Jan, Diabetes E11.9 SP [facility] [address] [facility] [id number] [address] [place] [phone] SP Jan, Diabetes E11.9 SP [facility] [address] [id number] [address] [place] [phone] SP Jan, SP [facility] [address] [id number] [address] [place] [phone] SP Jan, SP [facility] [address] [facility] [id number] [address] [place] [phone] SP Jan, Post-traumatic stress disord er F43.10 and Major depressive SP recurrent, moderate F33.1 [facility] [address] [id number] [address] [place] [phone] SP Jan, SP [facility] [address] [id number] [address] [place] [phone] SP Jan, Major depressive disorder, r ecurrent episode, moderate F33.1 ; SPtraumatic stress disorder F43.10 and Obsessive-compulsive disorder, unspecified type F42.9 [facility] [address] [id number] [address] [place] [phone] SP Jan, SP [facility] [address] [id number] [address] [place] [phone] SP Jan, Diabetes E11.9 SP [facility] [address] [id number] [address] [place] [phone] SP Jan, SP [facility] [address] [id number] [address] [place] [phone] SP Jan, Sprain of calcaneofibular li gament of right ankle, subsequent SP S93.411D [facility] [address] [id number] [address] [place] [phone] SP Jan, Post-traumatic stress disord er F43.10 and Major depressive SP recurrent, moderate F33.1 [facility] [address] [id number] [address] [place] [phone] SP Jan, Diabetes E11.9 SP [facility] [address] [id number] [address] [place] [phone] SP Dec, Major depressive disorder, r ecurrent episode, moderate F33.1 ; SPtraumatic stress disorder F43.10 and Obsessive-compulsive disorder, unspecified type F42.9 [facility] [address] [id number] [address] [place] [phone] SP Dec, SP [facility] [address] [id number] [address] [place] [phone] SP 14 Dec, 2016 Sprain of calcaneofibular li gament of right ankle, subsequent SP S93.411D [facility] [address] [id number] [address] [place] [phone] SP Dec, Post-traumatic stress disord er F43.10 and Major depressive SP recurrent, moderate F33.1 [place] [address] [facility] [id number] [address] [place] [phone] SP Dec, Sprain of calcaneofibular li gament of right ankle, subsequent SP S93.411D [place] [id number] [place] [phone] SP Dec, Hyperlipidemia E78.5 SP [address] [id number] [place] [phone] SP Dec, SP [place] [id number] [place] [phone] SP Dec, Diabetes E11.9 ; Diabetic ne uropathy E11.40 ; Degenerative disc SP lumbar M51.36 ; Hyperlipidemia E78.5 ; Insomnia G47.00 ; CAD (coronary artery disease) I25.10 ; Major depressive disorder, recurrent, moderate F33.1 ; Post- traumatic stress disorder F43.10 and Other irritable bowel syndrome K58.8 [address] [address] [phone] SP November, Diabetic neuropathy E11.40 a nd Hyperlipidemia E78.5 SP [place] [id number] [place] [phone] SP November, Degenerative disc disease, l umbar M51.36 SP [place] [id number] [place] [phone] SP Oct, SP [place] [id number] [place] [phone] SP Oct, Degenerative disc disease, l umbar M51.36 SP [place] [id number] [place] [phone] SP Sep, Degenerative disc disease, l umbar M51.36 and HTN (hypertension) SP [facility] [address] [facility] [id number] [address] [place] [phone] SP Sep, Diabetic neuropathy E11.40 ; HTN (hypertension) I10 ; SP disc disease, lumbar M51.36 ; Hyperlipidemia E78.5 ; Insomnia G47.00 ; CAD (coronary artery disease) I25.10 and Diabetes E11.9 [facility] [address] [facility] [id number] [address] [place] [phone] SP Aug, SP [facility] [address] [facility] [id number] [address] [place] [phone] SP Aug, Type 2 diabetes mellitus wit h hyperglycemia E11.65 SP [facility] [address] [facility] [id number] [address] [place] [phone] SP Aug, SP [facility] [address] [facility] [id number] [address] [place] [phone] SP Jul, SP [facility] [address] [facility] [id number] [address] [place] [phone] SP Jul, SP [facility] [address] [facility] [id number] [address] [place] [phone] SP Jun, SP [facility] [address] [facility] [id number] [address] [place] [phone] SP Jun, SP [facility] [address] [facility] [id number] [address] [place] [phone] SP Jun, SP [facility] [address] [facility] [id number] [address] [place] [phone] SP Jun, SP [facility] [address] [facility] [id number] [address] [place] [phone] SP May, Major depressive disorder, r ecurrent episode, moderate F33.1 and SPtraumatic stress disorder F43.10 [facility] [address] [facility] [id number] [address] [place] [phone] SP May, Major depressive disorder, r ecurrent episode, moderate F33.1 and SPtraumatic stress disorder F43.10 [place] [address] [id number] [address] [place] [phone] SP May, Diabetes E11.9 ; Diabetic ne uropathy E11.40 ; HTN (hypertension) SP ; Gastritis K29.70 ; Hyperlipidemia E78.5 ; Insomnia G47.00 and Major depressive disorder, recurrent, moderate F33.1 [address] [address] [id number] [address] [place] [phone] SP May, Major depressive disorder, r ecurrent episode, moderate F33.1 SP [place] [address] [facility] [id number] [address] [place] [phone] SP Apr, SP [place] [address] [facility] [id number] [address] [place] [phone] SP Apr, Major depressive disorder, r ecurrent episode, moderate F33.1 and SPtraumatic stress disorder F43.10 [place] [address] [facility] [id number] [address] [place] [phone] SP Apr, Diabetes E11.9 ; Diabetic ne uropathy E11.40 ; Degenerative disc SP lumbar M51.36 ; HTN (hypertension) I10 ; Hyperlipidemia E78.5 ; Chronic pain G89.29 ; CAD (coronary artery disease) I25.10 and Major depressive disorder, recurrent, moderate F33.1 [place] [address] [facility] [id number] [address] [place] [phone] SP Apr, Major depressive disorder, r ecurrent episode, moderate F33.1 and SPtraumatic stress disorder F43.10 [place] [address] [facility] [id number] [address] [place] [phone] SP Apr, Major depressive disorder, r ecurrent episode, moderate F33.1 and SPtraumatic stress disorder F43.10 [place] [address] [facility] [id number] [address] [place] [phone] SP Apr, Major depressive disorder, r ecurrent episode, moderate F33.1 and SP episodic mood disorder F39 [facility] [address] [facility] [id number] [address] [place] [phone] SP Apr, Chronic pain G89.29 ; Diabet ic neuropathy E11.40 ; HTN SP I10 ; Insomnia G47.00 ; CAD (coronary artery disease) I25.10 ; Hyperlipidemia E78.5 ; Degenerative disc disease, lumbar M51.36 ; Diabetes E11.9 and Gastritis K29.70 [facility] [address] [facility] [id number] [address] [place] [phone] SP Sep, SP [facility] [address] [facility] [id number] [address] [place] [phone] SP Aug, SP [place] [id number] [place] [phone] SP Jul, Major depressive disorder, r ecurrent episode, moderate F33.1 SP [facility] [address] [facility] [id number] [address] [place] [phone] SP Jul, Unspecified episodic mood di sorder F39 SP [facility] [address] [facility] [id number] [address] [place] [phone] SP Jul, SP [facility] [address] [facility] [id number] [address] [place] [phone] SP Jul, SP [facility] [address] [facility] [id number] [address] [place] [phone] SP Jul, SP [facility] [address] [facility] [id number] [address] [place] [phone] SP Jul, Type 2 diabetes mellitus wit h hyperglycemia E11.65 ; Diabetic SP E11.40 ; Degenerative disc disease, lumbar M51.36 ; HTN (hypertension) I10 ; Gastritis K29.70 ; Hyperlipidemia E78.5 and CAD (coronary artery disease) I25.10 [facility] [address] [facility] [id number] [address] [place] [phone] SP Jul, Severe episode of recurrent major depressive disorder, without SP features F33.2 [place] [address] [place] [id number] [place] [phone] SP Jul, SP [facility] [id number] [place] [phone] SP Jun, SP [place] [address] [place] [id number] [place] [phone] SP Jun, Diabetes E11.9 ; Diabetic ne uropathy E11.40 ; Degenerative disc SP lumbar M51.36 ; HTN (hypertension) I10 ; Gastritis K29.70 ; Hyperlipidemia E78.5 ; Unspecified episodic mood disorder F39 ; Depression F32.9 and CAD (coronary artery disease) I25.10 [place] [address] [place] [id number] [place] [phone] SP Jun, SP [place] [address] [place] [id number] [place] [phone] SP Jun, SP [place] [address] [address] SP Jun, Diabetes E11.9 ; Diabetic ne uropathy E11.40 ; Degenerative disc SP lumbar M51.36 ; HTN (hypertension) I10 ; Gastritis K29.70 ; Chronic pain G89.29 ; Insomnia G47.00 and Unspecified episodic mood disorder F39 [place] [address] [place] [id number] [place] [phone] SP May, Diabetic neuropathy E11.40 ; Degenerative disc disease, lumbar SP ; HTN (hypertension) I10 ; Gastritis K29.70 ; Hyperlipidemia E78.5 ; Chronic pain G89.29 ; Insomnia G47.00 ; Unspecified episodic mood disorder F39 ; Diabetes E11.9 ; CAD (coronary artery disease) I25.10 and H/O Gram positive sepsis Z86.19 [place] [address] [place] [id number] [place] [phone] SP May, SP [place] [address] [phone] SP May, SP [facility] [address] [facility] [id number] [address] [place] [phone] SP May, SP [facility] [address] [facility] [id number] [address] [place] [phone] SP May, SP [facility] [address] [facility] [id number] [address] [place] [phone] SP May, Diabetes E11.9 ; Chronic cachorro n G89.29 ; UTI (urinary tract SP N39.0 ; Hyperlipidemia E78.5 and Diabetic neuropathy E11.40 [facility] [address] [facility] [id number] [address] [place] [phone] SP May, Insomnia, unspecified G47.00 and Chronic pain G89.29 SP [facility] [address] [facility] [id number] [address] [place] [phone] SP May, SP [facility] [address] [facility] [id number] [address] [place] [phone] SP May, SP [facility] [address] [facility] [id number] [address] [place] [phone] SP May, SP [facility] [address] [facility] [id number] [address] [place] [phone] SP Apr, Insomnia, unspecified G47.00 ; Chronic pain G89.29 and SP episodic mood disorder F39 [facility] [address] [facility] [id number] [address] [place] [phone] SP Apr, Unspecified episodic mood di sorder F39 SP [facility] [address] [facility] [id number] [address] [place] [phone] SP Apr, Major depression F32.9 SP [facility] [address] [facility] [id number] [address] [place] [phone] SP Apr, SP [facility] [address] [facility] [id number] [address] [place] [phone] SP Apr, Diabetes E11.9 ; Diabetic ne uropathy E11.40 ; Degenerative disc SP lumbar M51.36 ; HTN (hypertension) I10 ; Gastritis K29.70 ; Hyperlipidemia E78.5 ; Chronic pain G89.29 and Insomnia G47.00 [place] [address] [phone] SP Mar, [place] [address] [id number] SP Mar, [place] [address] [phone] SP Mar, [place] [address] [phone] SP Mar, Diabetes mellitus 250.00 ; D iabetic neuropathy 250.60 ; CAD SP artery disease) 414.00 ; Degenerative disc disease, lumbar 722.52 ; Gastritis 535.50 and Insomnia 780.52 [place] [address] [id number] SP Mar, Diabetes mellitus 250.00 ; D egenerative disc disease, lumbar SP ; Essential hypertension 401.9 ; Gastritis 535.50 and Chronic pain 338.29 [place] [address] [id number] SP Feb, [place] [address] [phone] SP Feb, [place] [address] [phone] SP Jan, [place] [address] [phone] SP Jan, Diabetes mellitus 250.00 ; D iabetic neuropathy 250.60 ; SP disc disease, lumbar 722.52 ; CAD (coronary artery disease) 414.00 ; Essential hypertension 401.9 ; Gastritis 535.50 ; Hyperlipidemia 272.4 and Distal end of ulna fracture, closed 813.43 [place] [address] [id number] [address] [place] [address], [place] [phone] SP Dec, Wrist pain 719.43 and Diabet es mellitus 250.00 SP [facility] [address] [id number] [address] [place] [address], [place] [address] SP May, SP [facility] [address] [facility] [id number] [address] [place] [address], [place] [address] SP Dec, SP [facility] [place] [address] [id number] [address] [place] [phone] SP November, SP [facility] [address] [facility] [id number] [address] [place] [address], [place] [phone] SP Oct, SP [facility] [address] [facility] [id number] [address] [place] [address], [place] [phone] SP Sep, SP [facility] [address] [facility] [id number] [address] [place] [phone] SP Sep, SP [facility] [address] [facility] [id number] [address] [place] [address], [place] [address] SP Jun, SP [facility] [address] [facility] [id number] [address] [place] [phone] SP Jun, SP [facility] [address] [facility] [id number] [address] [place] [phone] SP Jun, SP [facility] [address] [facility] [id number] [address] [place] [phone] SP Jun, SP [facility] [address] [facility] [id number] [address] [place] [phone] SP Jun, SP [facility] [address] [facility] [id number] [address] [place] [phone] SP Jun, SP [facility] [address] [facility] [id number] [address] [place] [phone] SP Jun, SP [facility] [address] [facility] [id number] [address] [place] [phone] SP May, SP [facility] [address] [id number] [address] [place] [phone] SP May, SP [facility] [address] [id number] [address] [place] [phone] SP May, SP [facility] [address] [facility] [id number] [address] [place] [phone] SP May, SP [facility] [address] [facility] [id number] [address] [place] [phone] SP Apr, SP [facility] [address] [facility] [id number] [address] [place] [phone] SP Apr, SP [facility] [address] [facility] [id number] [address] [place] [phone] SP Apr, SP [facility] [address] [facility] [id number] [address] [place] [phone] SP Mar, SP [facility] [address] [facility] [id number] [address] [place] [phone] SP Dec, SP IMMUNIZATIONS No Known Immunizations SOCIAL HISTORY Never Assessed REASON FOR VISIT Hydrocodone 03/26 PLAN OF CARE VITAL SIGNS MEDICATIONS Medication Instructions Dosage Frequency Start Date End Date Duration S tatus POS Hydrocodone-Acetaminophen 10-325 MG Orally 3 times a day 1 tablet a s needed 8h SP Mar, 2017 28 days Active SP RESULTS No [...]
--- OUTSIDE RECORDS SUMMARY | 2019-06-14 01:45 | XMS REPORT ---
Author Author TANVI PATRICK POS Organization [facility] SP Address [address] [place] [address] SP Care Team Providers Care Yardage Caller Name Role Phone POS PATRICK TINAJERO Unavailable SP PROBLEMS Type Condition ICD9-CM Code [id number] Code Onset Dates Condition S tatus SNOMED POS Problem Degenerative disc disease, lumbar M51.36 Active 12003633 POS Problem HTN (hypertension) I10 Active 3 4464495 SP Problem Insomnia G47.00 Active 122065386 SP Problem Leg cramps R25.2 Active 465976184 SP Problem Obsessive-compulsive disorder, unspecified type F4 2.9 Active SP Problem Post-traumatic stress disorder F43.10 Active 88949053 SP Problem CAD (coronary artery disease) I25.10 Active 84531630 SP Problem Major depressive disorder, recurrent episode, moderate F33.1 Active SP Problem Type 2 diabetes mellitus with hyperglycemia E11.65 Active SP Problem Diabetic neuropathy E11.40 Active 783737218 SP Problem Hyperlipidemia E78.5 Active 24852 004 SP Problem Chronic pain G89.29 Active 5885814 1 SP Problem Diabetes E11.9 Active 52198076 SP Problem Gastritis K29.70 Active 1649277 SP ALLERGIES No Information SOCIAL HISTORY Never Assessed PLAN OF CARE VITAL SIGNS MEDICATIONS Medication Instructions Dosage Frequency Start Date End Date Duration S tatus POS Hydrocodone-Acetaminophen 10-325 MG Orally 3 times a day 1 tablet a s needed 8h SP Aug, 2016 28 days Active SP RESULTS No Results PROCEDURES No Known procedures IMMUNIZATIONS No Known Immunizations MEDICAL (GENERAL) HISTORY Type Description Date POS [...]
--- OUTSIDE RECORDS SUMMARY | 2019-06-14 01:45 | XMS REPORT ---
Author Author TANVI PATRICK POS Organization [facility] SP Address [address] [place] [address] SP Care Team Providers Care Cafeteria Cashier Name Role Phone POS PATRICK TINAJERO Unavailable SP PROBLEMS Type Condition ICD9-CM Code DCL70-AB Code Onset Dates Condition S tatus SNOMED POS Problem Degenerative disc disease, lumbar M51.36 Active 25475898 POS Problem HTN (hypertension) I10 Active 3 1764061 SP Problem Insomnia G47.00 Active 377206616 SP Problem Leg cramps R25.2 Active 188499902 SP Problem Obsessive-compulsive disorder, unspecified type F4 2.9 Active SP Problem Post-traumatic stress disorder F43.10 Active 96687647 SP Problem CAD (coronary artery disease) I25.10 Active 41332768 SP Problem Major depressive disorder, recurrent episode, moderate F33.1 Active SP Problem Type 2 diabetes mellitus with hyperglycemia E11.65 Active SP Problem Diabetic neuropathy E11.40 Active 638162778 SP Problem Hyperlipidemia E78.5 Active 87208 004 SP Problem Chronic pain G89.29 Active 1366423 1 SP Problem Diabetes E11.9 Active 45327113 SP Problem Gastritis K29.70 Active 2393370 SP ALLERGIES No Information SOCIAL HISTORY Never Assessed PLAN OF CARE VITAL SIGNS MEDICATIONS Medication Instructions Dosage Frequency Start Date End Date Duration S tatus POS Crestor 20 mg Orally Once a day 1 tablet 24h 30 days Active SP Levemir FlexTouch 100 UNIT/ML Subcutaneous 30 units at bedtime inject 30 SP Active SP NovoLog Flexpen 100 UNIT/ML Subcutaneous 3 times a day with meals inject 15 SP 30 days Active SP RESULTS No Results [...]
--- OUTSIDE RECORDS SUMMARY | 2019-06-14 01:45 | XMS REPORT ---
Author Author PATRICK Peralta POS Organization [facility] SP Address [address] [place] [address] SP Care Team Providers Care Forms Analysis Manager Name Role Phone POS PATRICK Peralta Unavailable SP PROBLEMS Type Condition ICD9-CM Code [id number]-LE Code Onset Dates Condition S tatus SNOMED POS Problem Type 2 diabetes mellitus with hyperglycemia E11.65 Active POS Problem Obsessive-compulsive disorder, unspecified type F4 2.9 Active SP Problem Major depressive disorder, recurrent episode, moderate F33.1 Active SP Problem Falls frequently R29.6 Active 279 641562 SP Problem Diabetes E11.9 Active [id number] SP Problem Type 2 diabetes mellitus with other diab etic neurological complication SP E11.49 Active 84665961 SP Problem History of pulmonary embolism Z86.711 Active 013504487 SP Problem USP 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.4 Active 796823189 SP Problem Type 2 diabetes mellitus with other diabetic kid allen complication SP Active 99379886 SP Problem Hyperlipidemia E78.5 Active 14345 004 SP Problem Insomnia G47.00 Active 466419543 SP Problem HTN (hypertension) I10 Active 3 5552807 SP Problem Chronic pain G89.29 Active 1006615 1 SP Problem CAD (coronary artery disease) I25.10 Active 88167690 SP Problem Degenerative disc disease, lumbar M51.36 Active 71363072 SP Problem Post-traumatic stress disorder F43.10 Active 44317816 SP ALLERGIES No Information ENCOUNTERS Encounter Location Date Diagnosis POS [facility] [id number] [place] [phone] SP November, SP [facility] [id number] [place] [address] SP Sep, Diabetes E11.9 SP [facility] [id number] [address] [place] [phone] SP Sep, Chronic pain G89.29 SP [facility] [address] [facility] [id number] [address] [place] [phone] SP Sep, SP [facility] [address] [facility] [id number] [address] [place] [phone] SP Sep, Falls frequently R29.6 ; Elier g term 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.4 SP Type 2 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 E11.49 [facility] [address] [facility] [id number] [address] [place] [phone] SP Sep, SP [facility] [address] [facility] [id number] [address] [place] [phone] SP Sep, Diabetes E11.9 SP [facility] [address] [facility] [id number] [address] [place] [phone] SP Aug, SP [facility] [address] [facility] [id number] [address] [place] [phone] SP Aug, Chronic pain G89.29 SP [facility] [address] [facility] [id number] [address] [place] [phone] SP Aug, SP [facility] [address] [facility] [id number] [address] [place] [address] SP Aug, Chronic pain G89.29 SP [facility] [address] [facility] [id number] [address] [place] [phone] SP Jul, SP [facility] [address] [facility] [id number] [address] [place] [phone] SP Jul, Diabetes E11.9 and Type 2 di abetes mellitus with other diabetic SP complication E11.29 [facility] [address] [facility] [id number] [address] [place] [phone] SP Jul, Type 2 diabetes mellitus wit h other diabetic kidney complication SP [facility] [address] [facility] [id number] [address] [place] [phone] SP Jul, SP [facility] [address] [facility] [id number] [address] [place] [id number] SP Jul, Chronic pain G89.29 SP [facility] [address] [facility] [id number] [address] [place] [phone] SP Jun, Diabetes E11.9 SP [facility] [address] [facility] [id number] [address] [place] [phone] SP Jun, Chronic pain G89.29 SP [facility] [address] [facility] [id number] [address] [place] [address] SP Jun, Diabetes E11.9 ; Atypical ch est pain R07.89 ; 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 ; 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.29 ; Type 2 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 E11.49 ; History of pulmonary embolism Z86.711 and History of CVA (cerebrovascular accident) Z86.73 [facility] [address] [facility] [id number] [address] [place] [phone] SP May, SP [facility] [address] [facility] [id number] [address] [place] [address] SP May, Chronic pain G89.29 SP [facility] [address] [facility] [id number] [address] [place] [address] SP Apr, Chronic pain G89.29 SP [facility] [address] [facility] [id number] [address] [place] [address] SP Apr, SP [facility] [address] [facility] [id number] [address] [place] [address] SP Mar, Chronic pain G89.29 SP [facility] [address] [facility] [id number] [address] [place] [phone] SP Mar, Diabetes E11.9 SP [facility] [address] [facility] [id number] [address] [place] [phone] SP Mar, SP [address] [id number] [facility] [id number] [address] [place] [address] SP Mar, Degenerative disc disease, l umbar M51.36 SP [place] [address] [facility] [id number] [address] [place] [phone] SP Feb, Diabetes E11.9 SP [place] [address] [facility] [id number] [address] [place] [phone] SP Feb, Diabetes E11.9 SP [place] [address] [facility] [id number] [address] [place] [phone] SP Feb, Diabetes E11.9 ; HTN (hypert ension) I10 ; Diabetic neuropathy SP and Leg cramps R25.2 [place] [address] [facility] [id number] [address] [place] [phone] SP Feb, Sprain of calcaneofibular li gament of right ankle, subsequent SP S93.411D ; Major depressive disorder, recurrent episode, moderate F33.1 ; Diabetes E11.9 ; Hyperlipidemia E78.5 ; Post-traumatic stress disorder F43.10 and Other irritable bowel syndrome K58.8 [place] [id number] [place] [phone] SP Feb, Major depressive disorder, r ecurrent episode, moderate F33.1 ; SPtraumatic stress disorder F43.10 and Obsessive-compulsive disorder, unspecified type F42.9 [place] [address] [facility] [id number] [address] [place] [phone] SP Feb, SP [place] [address] [facility] [id number] [address] [place] [address] SP Feb, Post-traumatic stress disord er F43.10 and Major depressive SP recurrent, moderate F33.1 [place] [address] [facility] [id number] [address] [place] [phone] SP Feb, Diabetes E11.9 SP [place] [address] [facility] [id number] [address] [place] [phone] SP Feb, Degenerative disc disease, l umbar M51.36 SP [facility] [address] [id number] [address] [place] [phone] SP Feb, Post-traumatic stress disord er F43.10 and Major depressive SP recurrent, moderate F33.1 [facility] [address] [id number] [address] [place] [phone] SP Feb, SP [facility] [address] [id number] [address] [place] [address] SP Feb, Diabetes E11.9 SP [facility] [address] [id number] [address] [place] [phone] SP Jan, Diabetes E11.9 SP [facility] [address] [id number] [address] [place] [address] SP Jan, Post-traumatic stress disord er F43.10 and Major depressive SP recurrent, moderate F33.1 [facility] [address] [id number] [address] [place] [phone] SP Jan, Diabetes E11.9 SP [facility] [address] [id number] [address] [place] [phone] SP Jan, Diabetes E11.9 SP [facility] [address] [id number] [address] [place] [phone] SP Jan, SP [facility] [address] [id number] [address] [place] [phone] SP Jan, SP [facility] [address] [id number] [address] [place] [id number] SP Jan, Post-traumatic stress disord er F43.10 and Major depressive SP recurrent, moderate F33.1 [facility] [address] [id number] [address] [place] [phone] SP Jan, SP [facility] [address] [facility] [id number] [address] [place] [phone] SP Jan, Major depressive disorder, r ecurrent episode, moderate F33.1 ; SPtraumatic stress disorder F43.10 and Obsessive-compulsive disorder, unspecified type F42.9 [facility] [address] [id number] [address] [place] [phone] SP Jan, SP [facility] [address] [id number] [address] [place] [phone] SP Jan, Diabetes E11.9 SP [facility] [address] [id number] [address] [place] [phone] SP Jan, SP [facility] [address] [id number] [address] [place] [address] SP Jan, Sprain of calcaneofibular li gament of right ankle, subsequent SP S93.411D [facility] [address] [id number] [address] [place] [phone] SP Jan, Post-traumatic stress disord er F43.10 and Major depressive SP recurrent, moderate F33.1 [facility] [address] [id number] [address] [place] [phone] SP Jan, Diabetes E11.9 SP [facility] [address] [id number] [address] [place] [phone] SP 16 Dec, 2016 Major depressive disorder, r ecurrent episode, moderate F33.1 ; SPtraumatic stress disorder F43.10 and Obsessive-compulsive disorder, unspecified type F42.9 [facility] [address] [id number] [address] [place] [phone] SP Dec, SP [facility] [address] [id number] [address] [place] [phone] SP 14 Dec, 2016 Sprain of calcaneofibular li gament of right ankle, subsequent SP S93.411D [facility] [address] [id number] [address] [place] [phone] SP Dec, Post-traumatic stress disord er F43.10 and Major depressive SP recurrent, moderate F33.1 [place] [id number] [facility] [id number] [address] [place] [phone] SP Dec, Sprain of calcaneofibular li gament of right ankle, subsequent SP S93.411D [place] [address] [facility] [id number] [address] [place] [phone] SP Dec, Hyperlipidemia E78.5 SP [place] [address] [facility] [id number] [address] [place] [phone] SP Dec, SP [id number] [place] [phone] SP Dec, Diabetes E11.9 ; Diabetic ne uropathy E11.40 ; Degenerative disc SP lumbar M51.36 ; Hyperlipidemia E78.5 ; Insomnia G47.00 ; CAD (coronary artery disease) I25.10 ; Major depressive disorder, recurrent, moderate F33.1 ; Post- traumatic stress disorder F43.10 and Other irritable bowel syndrome K58.8 [place] [address] [facility] [id number] [address] [place] [address] SP November, Diabetic neuropathy E11.40 a nd Hyperlipidemia E78.5 SP [place] [address] [facility] [id number] [address] [place] [phone] SP November, Degenerative disc disease, l umbar M51.36 SP [place] [id number] [place] [phone] SP Oct, SP [place] [address] [facility] [id number] [address] [place] [phone] SP Oct, Degenerative disc disease, l umbar M51.36 SP [place] [address] [facility] [id number] [address] [place] [phone] SP Sep, Degenerative disc disease, l umbar M51.36 and HTN (hypertension) SP [place] [address] [facility] [id number] [address] [place] [phone] SP Sep, Diabetic neuropathy E11.40 ; HTN (hypertension) I10 ; SP disc disease, lumbar M51.36 ; Hyperlipidemia E78.5 ; Insomnia G47.00 ; CAD (coronary artery disease) I25.10 and Diabetes E11.9 [facility] [address] [facility] [id number] [address] [place] [phone] SP Aug, SP [facility] [address] [facility] [id number] [address] [place] [phone] SP Aug, Type 2 diabetes mellitus wit h hyperglycemia E11.65 SP [facility] [address] [facility] [id number] [address] [place] [phone] SP Aug, SP [facility] [address] [facility] [id number] [address] [place] [phone] SP Jul, SP [facility] [address] [facility] [id number] [address] [place] [phone] SP Jul, SP [facility] [address] [facility] [id number] [address] [place] [phone] SP Jun, SP [facility] [address] [facility] [id number] [address] [place] [phone] SP Jun, SP [facility] [address] [facility] [id number] [address] [place] [phone] SP Jun, SP [facility] [address] [facility] [id number] [address] [place] [phone] SP Jun, SP [facility] [address] [facility] [id number] [address] [place] [phone] SP May, Major depressive disorder, r ecurrent episode, moderate F33.1 and SPtraumatic stress disorder F43.10 [facility] [address] [facility] [id number] [address] [place] [phone] SP May, Major depressive disorder, r ecurrent episode, moderate F33.1 and SPtraumatic stress disorder F43.10 [facility] [address] [id number] [address] [place] [phone] SP May, Diabetes E11.9 ; Diabetic ne uropathy E11.40 ; HTN (hypertension) SP ; Gastritis K29.70 ; Hyperlipidemia E78.5 ; Insomnia G47.00 and Major depressive disorder, recurrent, moderate F33.1 [place] [address] [facility] [id number] [address] [place] [address] SP May, Major depressive disorder, r ecurrent episode, moderate F33.1 SP [place] [address] [facility] [id number] [place] [phone] SP Apr, SP [place] [address] [facility] [id number] [place] [phone] SP Apr, Major depressive disorder, r ecurrent episode, moderate F33.1 and SPtraumatic stress disorder F43.10 [place] [id number] [place] [phone] SP Apr, Diabetes E11.9 ; Diabetic ne uropathy E11.40 ; Degenerative disc SP lumbar M51.36 ; HTN (hypertension) I10 ; Hyperlipidemia E78.5 ; Chronic pain G89.29 ; CAD (coronary artery disease) I25.10 and Major depressive disorder, recurrent, moderate F33.1 [place] [address] [address] [id number] [place] [phone] SP Apr, Major depressive disorder, r ecurrent episode, moderate F33.1 and SPtraumatic stress disorder F43.10 [place] [address] [place] [address] [id number] [place] [phone] SP Apr, Major depressive disorder, r ecurrent episode, moderate F33.1 and SPtraumatic stress disorder F43.10 [place] [address] [facility] [id number] [address] [place] [address] SP Apr, Major depressive disorder, r ecurrent episode, moderate F33.1 and SP episodic mood disorder F39 [place] [address] [place] [id number] [place] [address] SP Apr, Chronic pain G89.29 ; Diabet ic neuropathy E11.40 ; HTN SP I10 ; Insomnia G47.00 ; CAD (coronary artery disease) I25.10 ; Hyperlipidemia E78.5 ; Degenerative disc disease, lumbar M51.36 ; Diabetes E11.9 and Gastritis K29.70 [place] [address] [place] [id number] [place] [address] SP Sep, SP [place] [address] [address] SP Aug, SP [place] [address] [phone] SP Jul, Major depressive disorder, r ecurrent episode, moderate F33.1 SP [place] [address] [address] SP Jul, Unspecified episodic mood di sorder F39 SP [place] [address] [phone] SP Jul, SP [place] [address] [address] SP Jul, SP [place] [address] [address] SP Jul, SP [place] [address] [address] SP Jul, Type 2 diabetes mellitus wit h hyperglycemia E11.65 ; Diabetic SP E11.40 ; Degenerative disc disease, lumbar M51.36 ; HTN (hypertension) I10 ; Gastritis K29.70 ; Hyperlipidemia E78.5 and CAD (coronary artery disease) I25.10 [place] [address] [address] SP Jul, Severe episode of recurrent major depressive disorder, without SP features F33.2 [place] [address] [address] SP Jul, SP [facility] [id number] [place] [address] SP Jun, SP [facility] [address] [address] SP Jun, Diabetes E11.9 ; Diabetic ne uropathy E11.40 ; Degenerative disc SP lumbar M51.36 ; HTN (hypertension) I10 ; Gastritis K29.70 ; Hyperlipidemia E78.5 ; Unspecified episodic mood disorder F39 ; Depression F32.9 and CAD (coronary artery disease) I25.10 [place] [address] [address] SP Jun, SP [place] [address] [address] SP Jun, SP [place] [address] [address] SP Jun, Diabetes E11.9 ; Diabetic ne uropathy E11.40 ; Degenerative disc SP lumbar M51.36 ; HTN (hypertension) I10 ; Gastritis K29.70 ; Chronic pain G89.29 ; Insomnia G47.00 and Unspecified episodic mood disorder F39 [place] [address] [address] SP May, Diabetic neuropathy E11.40 ; Degenerative disc disease, lumbar SP ; HTN (hypertension) I10 ; Gastritis K29.70 ; Hyperlipidemia E78.5 ; Chronic pain G89.29 ; Insomnia G47.00 ; Unspecified episodic mood disorder F39 ; Diabetes E11.9 ; CAD (coronary artery disease) I25.10 and H/O Gram positive sepsis Z86.19 [facility] [address] [address] SP May, SP [place] [address] [place] [id number] [place] [phone] SP May, SP [facility] [address] [address] SP May, SP [facility] [address] [facility] [id number] [address] [place] [address] SP May, SP [facility] [address] [facility] [id number] [address] [place] [address] SP May, UTI (urinary tract infection ) N39.0 ; Diabetes E11.9 ; Diabetic SP E11.40 ; Hyperlipidemia E78.5 and Chronic pain G89.29 [facility] [address] [id number] [place] [address] SP May, Insomnia, unspecified G47.00 and Chronic pain G89.29 SP [facility] [address] [id number] [place] [address] SP May, SP [facility] [id number] [place] [phone] SP May, SP [facility] [id number] [place] [address] SP May, SP [facility] [id number] [place] [address] SP Apr, Insomnia, unspecified G47.00 ; Chronic pain G89.29 and SP episodic mood disorder F39 [facility] [address] [id number] [place] [phone] SP Apr, Unspecified episodic mood di sorder F39 SP [facility] [id number] [place] [address] SP Apr, Major depression F32.9 SP [facility] [address] [facility] [id number] [address] [place] [address] SP Apr, SP [facility] [id number] [place] [address] SP Apr, Diabetes E11.9 ; Diabetic ne uropathy E11.40 ; Degenerative disc SP lumbar M51.36 ; HTN (hypertension) I10 ; Gastritis K29.70 ; Hyperlipidemia E78.5 ; Chronic pain G89.29 and Insomnia G47.00 [facility] [address] [address] SP Mar, SP [facility] [id number] [place] [phone] SP Mar, SP [facility] [id number] [place] [phone] SP Mar, SP [facility] [id number] [place] [address] SP Mar, Diabetes mellitus 250.00 ; D iabetic neuropathy 250.60 ; CAD SP artery disease) 414.00 ; Degenerative disc disease, lumbar 722.52 ; Gastritis 535.50 and Insomnia 780.52 [place] [address] [id number] SP Mar, Diabetes mellitus 250.00 ; D egenerative disc disease, lumbar SP ; Essential hypertension 401.9 ; Gastritis 535.50 and Chronic pain 338.29 [facility] [address] [id number] SP Feb, [facility] [address] [id number] SP Feb, [facility] [address] [id number] SP Jan, SP [facility] [address] [id number] SP Jan, Diabetes mellitus 250.00 ; D iabetic neuropathy 250.60 ; SP disc disease, lumbar 722.52 ; CAD (coronary artery disease) 414.00 ; Essential hypertension 401.9 ; Gastritis 535.50 ; Hyperlipidemia 272.4 and Distal end of ulna fracture, closed 813.43 [facility] [id number] [place] [id number] SP Dec, Wrist pain 719.43 and Diabet es mellitus 250.00 SP [facility] [address] [id number] [address] [place] [address], [place] [id number] SP May, SP [facility] [address] [id number] [address] [place] [address], [place] [id number] SP Dec, SP [facility] [address] [id number] [address] [place] [address], [place] [id number] SP November, SP [facility] [address] [id number] [address] [place] [id number] SP Oct, SP [facility] [address] [id number] [address] [place] [address], [place] [id number] SP Sep, SP [facility] [address] [id number] [address] [place] [address], [place] [id number] SP Sep, SP [facility] [address] [id number] [address] [place] [address], [place] [id number] SP Jun, SP [facility] [address] [id number] [address] [place] [id number], [place] [id number] SP Jun, SP [facility] [address] [id number] [address] [place] [address], [place] [id number] SP Jun, SP [facility] [address] [facility] [id number] [address] [place] [id number] SP Jun, SP [facility] [address] [id number] [address] [place] [id number] SP Jun, SP [facility] [address] [id number] [address] [place] [address], [place] [id number] SP Jun, SP [facility] [address] [id number] [address] [place] [address], [place] [id number] SP Jun, SP [facility] [address] [facility] [id number] [address] [place] [id number] SP May, SP [facility] [address] [id number] [address] [place] [id number] SP May, SP [facility] [address] [id number] [address] [place] [id number] SP May, SP [facility] [address] [id number] [address] [place] [id number] SP May, SP [facility] [address] [facility] [id number] [address] [place] [id number] SP Apr, SP [facility] [address] [facility] [id number] [address] [place] [id number] SP Apr, SP [facility] [address] [facility] [id number] [address] [place] [id number] SP Apr, SP [facility] [address] [facility] [id number] [address] [place] [id number] SP Mar, SP [facility] [address] [facility] [id number] [address] [place] [id number] SP Dec, SP IMMUNIZATIONS No Known Immunizations SOCIAL HISTORY Never Assessed REASON FOR VISIT BS f/u PLAN OF CARE VITAL SIGNS MEDICATIONS Medication Instructions Dosage Frequency Start Date End Date Duration S tatus POS Levemir FlexTouch 100 UNIT/ML Subcutaneous 55 units bid inject Active SP RESULTS No Results PROCEDURES No [...]
--- OUTSIDE RECORDS SUMMARY | 2019-06-14 01:46 | XMS REPORT ---
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 Name Role Phone POS PATRICK Peralta Unavailable SP PROBLEMS Type Condition ICD9-CM Code [id number] Code Onset Dates Condition S tatus SNOMED POS Problem Type 2 diabetes mellitus with hyperglycemia E11.65 Active POS Problem Obsessive-compulsive disorder, unspecified type F4 2.9 Active SP Problem Major depressive disorder, recurrent episode, moderate F33.1 Active SP Problem Falls frequently R29.6 Active 279 872433 SP Problem Diabetes E11.9 Active [id number] SP Problem Type 2 diabetes mellitus with other diab etic neurological complication SP E11.49 Active 00523032 SP Problem History of pulmonary embolism Z86.711 Active 466730820 SP Problem halfway 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.4 Active 062995844 SP Problem Type 2 diabetes mellitus with other diabetic kid allen complication SP Active 36827492 SP Problem Hyperlipidemia E78.5 Active 83986 004 SP Problem Insomnia G47.00 Active 096204491 SP Problem HTN (hypertension) I10 Active 3 0766876 SP Problem Chronic pain G89.29 Active 7424902 1 SP Problem CAD (coronary artery disease) I25.10 Active 12077243 SP Problem Degenerative disc disease, lumbar M51.36 Active 53917568 SP Problem Post-traumatic stress disorder F43.10 Active 72644666 SP ALLERGIES No Information ENCOUNTERS Encounter Location Date Diagnosis POS [facility] [address] [id number] [address] [place] [phone] SP November, SP [facility] [address] [id number] [address] [place] [phone] SP Sep, Diabetes E11.9 SP [facility] [address] [id number] [address] [place] [phone] SP Sep, Chronic pain G89.29 SP [facility] [address] [facility] [id number] [address] [place] [phone] SP Sep, SP [facility] [address] [facility] [id number] [address] [place] [phone] SP Sep, Falls frequently R29.6 ; Elier g term 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.4 SP Type 2 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 E11.49 [facility] [address] [facility] [id number] [address] [place] [phone] SP Sep, SP [facility] [address] [facility] [id number] [address] [place] [phone] SP Sep, Diabetes E11.9 SP [facility] [address] [facility] [id number] [address] [place] [phone] SP Aug, SP [facility] [address] [facility] [id number] [address] [place] [phone] SP Aug, Chronic pain G89.29 SP [facility] [address] [facility] [id number] [address] [place] [phone] SP Aug, SP [facility] [address] [facility] [id number] [address] [place] [phone] SP Aug, Chronic pain G89.29 SP [facility] [address] [facility] [id number] [address] [place] [phone] SP Jul, SP [facility] [address] [facility] [id number] [address] [place] [phone] SP Jul, Diabetes E11.9 and Type 2 di abetes mellitus with other diabetic SP complication E11.29 [facility] [address] [facility] [id number] [address] [place] [phone] SP Jul, Type 2 diabetes mellitus wit h other diabetic kidney complication SP [facility] [address] [facility] [id number] [address] [place] [phone] SP Jul, SP [facility] [address] [facility] [id number] [address] [place] [phone] SP Jul, Chronic pain G89.29 SP [facility] [address] [facility] [id number] [address] [place] [phone] SP Jun, Diabetes E11.9 SP [facility] [address] [facility] [id number] [address] [place] [phone] SP Jun, Chronic pain G89.29 SP [facility] [address] [facility] [id number] [address] [place] [phone] SP Jun, Diabetes E11.9 ; Atypical ch est pain R07.89 ; candle 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 current SP of insulin Z79.4 ; 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.29 ; Type 2 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 E11.49 ; History of pulmonary embolism Z86.711 and History of CVA (cerebrovascular accident) Z86.73 [facility] [address] [facility] [id number] [address] [place] [phone] SP May, SP [facility] [address] [facility] [id number] [address] [place] [phone] SP May, Chronic pain G89.29 SP [facility] [address] [facility] [id number] [address] [place] [phone] SP Apr, Chronic pain G89.29 SP [facility] [address] [facility] [id number] [address] [place] [phone] SP Apr, SP [facility] [address] [facility] [id number] [address] [place] [phone] SP Mar, Chronic pain G89.29 SP [facility] [address] [facility] [id number] [address] [place] [phone] SP Mar, Diabetes E11.9 SP [facility] [address] [facility] [id number] [address] [place] [phone] SP Mar, SP [place] [id number] [facility] [id number] [address] [place] [phone] SP Mar, Degenerative disc disease, l umbar M51.36 SP [place] [address] [facility] [id number] [address] [place] [phone] SP Feb, Diabetes E11.9 SP [place] [address] [facility] [id number] [address] [place] [phone] SP Feb, Diabetes E11.9 SP [place] [address] [facility] [id number] [address] [place] [phone] SP Feb, Diabetes E11.9 ; HTN (hypert ension) I10 ; Diabetic neuropathy SP and Leg cramps R25.2 [place] [address] [facility] [id number] [address] [place] [phone] SP Feb, Sprain of calcaneofibular li gament of right ankle, subsequent SP S93.411D ; Major depressive disorder, recurrent episode, moderate F33.1 ; Diabetes E11.9 ; Hyperlipidemia E78.5 ; Post-traumatic stress disorder F43.10 and Other irritable bowel syndrome K58.8 [place] [address] [place] [id number] [address] [place] [phone] SP Feb, Major depressive disorder, r ecurrent episode, moderate F33.1 ; SPtraumatic stress disorder F43.10 and Obsessive-compulsive disorder, unspecified type F42.9 [place] [address] [facility] [id number] [address] [place] [phone] SP Feb, SP [place] [address] [facility] [id number] [address] [place] [phone] SP Feb, Post-traumatic stress disord er F43.10 and Major depressive SP recurrent, moderate F33.1 [place] [address] [facility] [id number] [address] [place] [phone] SP Feb, Diabetes E11.9 SP [place] [address] [facility] [id number] [address] [place] [phone] SP Feb, Degenerative disc disease, l umbar M51.36 SP [facility] [address] [id number] [address] [place] [phone] SP Feb, Post-traumatic stress disord er F43.10 and Major depressive SP recurrent, moderate F33.1 [facility] [address] [id number] [address] [place] [phone] SP Feb, SP [facility] [address] [id number] [address] [place] [phone] SP Feb, Diabetes E11.9 SP [facility] [address] [id number] [address] [place] [phone] SP Jan, Diabetes E11.9 SP [facility] [address] [id number] [address] [place] [phone] SP Jan, Post-traumatic stress disord er F43.10 and Major depressive SP recurrent, moderate F33.1 [facility] [address] [id number] [address] [place] [phone] SP Jan, Diabetes E11.9 SP [facility] [address] [id number] [address] [place] [phone] SP Jan, Diabetes E11.9 SP [facility] [address] [id number] [address] [place] [phone] SP Jan, SP [facility] [address] [id number] [address] [place] [phone] SP Jan, SP [facility] [address] [id number] [address] [place] [phone] SP Jan, Post-traumatic stress disord er F43.10 and Major depressive SP recurrent, moderate F33.1 [facility] [address] [id number] [address] [place] [phone] SP Jan, SP [facility] [address] [facility] [id number] [address] [place] [phone] SP Jan, Major depressive disorder, r ecurrent episode, moderate F33.1 ; SPtraumatic stress disorder F43.10 and Obsessive-compulsive disorder, unspecified type F42.9 [facility] [address] [id number] [address] [place] [phone] SP Jan, SP [facility] [address] [id number] [address] [place] [phone] SP Jan, Diabetes E11.9 SP [facility] [address] [id number] [address] [place] [phone] SP Jan, SP [facility] [address] [id number] [address] [place] [phone] SP Jan, Sprain of calcaneofibular li gament of right ankle, subsequent SP S93.411D [facility] [address] [id number] [address] [place] [phone] SP Jan, Post-traumatic stress disord er F43.10 and Major depressive SP recurrent, moderate F33.1 [facility] [address] [id number] [address] [place] [phone] SP Jan, Diabetes E11.9 SP [facility] [address] [id number] [address] [place] [phone] SP 16 Dec, 2016 Major depressive disorder, r ecurrent episode, moderate F33.1 ; SPtraumatic stress disorder F43.10 and Obsessive-compulsive disorder, unspecified type F42.9 [facility] [address] [id number] [address] [place] [phone] SP Dec, SP [facility] [address] [id number] [address] [place] [phone] SP 14 Dec, 2016 Sprain of calcaneofibular li gament of right ankle, subsequent SP S93.411D [facility] [address] [id number] [address] [place] [phone] SP Dec, Post-traumatic stress disord er F43.10 and Major depressive SP recurrent, moderate F33.1 [place] [id number] [facility] [id number] [address] [place] [phone] SP Dec, Sprain of calcaneofibular li gament of right ankle, subsequent SP S93.411D [place] [address] [facility] [id number] [address] [place] [phone] SP Dec, Hyperlipidemia E78.5 SP [place] [address] [facility] [id number] [address] [place] [phone] SP Dec, SP [place] [address] [id number] [address] [place] [phone] SP Dec, Diabetes E11.9 ; Diabetic ne uropathy E11.40 ; Degenerative disc SP lumbar M51.36 ; Hyperlipidemia E78.5 ; Insomnia G47.00 ; CAD (coronary artery disease) I25.10 ; Major depressive disorder, recurrent, moderate F33.1 ; Post- traumatic stress disorder F43.10 and Other irritable bowel syndrome K58.8 [place] [address] [facility] [id number] [address] [place] [phone] SP November, Diabetic neuropathy E11.40 a nd Hyperlipidemia E78.5 SP [place] [address] [facility] [id number] [address] [place] [phone] SP November, Degenerative disc disease, l umbar M51.36 SP [place] [address] [place] [id number] [address] [place] [phone] SP Oct, SP [place] [address] [facility] [id number] [address] [place] [phone] SP Oct, Degenerative disc disease, l umbar M51.36 SP [place] [address] [facility] [id number] [address] [place] [phone] SP Sep, Degenerative disc disease, l umbar M51.36 and HTN (hypertension) SP [place] [address] [facility] [id number] [address] [place] [phone] SP Sep, Diabetic neuropathy E11.40 ; HTN (hypertension) I10 ; SP disc disease, lumbar M51.36 ; Hyperlipidemia E78.5 ; Insomnia G47.00 ; CAD (coronary artery disease) I25.10 and Diabetes E11.9 [facility] [address] [facility] [id number] [address] [place] [phone] SP Aug, SP [facility] [address] [facility] [id number] [address] [place] [phone] SP Aug, Type 2 diabetes mellitus wit h hyperglycemia E11.65 SP [facility] [address] [facility] [id number] [address] [place] [phone] SP Aug, SP [facility] [address] [facility] [id number] [address] [place] [phone] SP Jul, SP [facility] [address] [facility] [id number] [address] [place] [phone] SP Jul, SP [facility] [address] [facility] [id number] [address] [place] [phone] SP Jun, SP [facility] [address] [facility] [id number] [address] [place] [phone] SP Jun, SP [facility] [address] [facility] [id number] [address] [place] [phone] SP Jun, SP [facility] [address] [facility] [id number] [address] [place] [phone] SP Jun, SP [facility] [address] [facility] [id number] [address] [place] [phone] SP May, Major depressive disorder, r ecurrent episode, moderate F33.1 and SPtraumatic stress disorder F43.10 [facility] [address] [facility] [id number] [address] [place] [phone] SP May, Major depressive disorder, r ecurrent episode, moderate F33.1 and SPtraumatic stress disorder F43.10 [facility] [address] [id number] [address] [place] [phone] SP May, Diabetes E11.9 ; Diabetic ne uropathy E11.40 ; HTN (hypertension) SP ; Gastritis K29.70 ; Hyperlipidemia E78.5 ; Insomnia G47.00 and Major depressive disorder, recurrent, moderate F33.1 [place] [address] [facility] [id number] [address] [place] [phone] SP May, Major depressive disorder, r ecurrent episode, moderate F33.1 SP [place] [address] [facility] [id number] [place] [phone] SP Apr, SP [place] [address] [facility] [id number] [place] [phone] SP Apr, Major depressive disorder, r ecurrent episode, moderate F33.1 and SPtraumatic stress disorder F43.10 [place] [address] [place] [id number] [place] [phone] SP Apr, Diabetes E11.9 ; Diabetic ne uropathy E11.40 ; Degenerative disc SP lumbar M51.36 ; HTN (hypertension) I10 ; Hyperlipidemia E78.5 ; Chronic pain G89.29 ; CAD (coronary artery disease) I25.10 and Major depressive disorder, recurrent, moderate F33.1 [place] [address] [place] [id number] [address] [place] [phone] SP Apr, Major depressive disorder, r ecurrent episode, moderate F33.1 and SPtraumatic stress disorder F43.10 [place] [address] [place] [id number] [address] [place] [phone] SP Apr, Major depressive disorder, r ecurrent episode, moderate F33.1 and SPtraumatic stress disorder F43.10 [place] [address] [facility] [id number] [address] [place] [phone] SP Apr, Major depressive disorder, r ecurrent episode, moderate F33.1 and SP episodic mood disorder F39 [place] [address] [place] [id number] [place] [address] SP Apr, Chronic pain G89.29 ; Diabet ic neuropathy E11.40 ; HTN SP I10 ; Insomnia G47.00 ; CAD (coronary artery disease) I25.10 ; Hyperlipidemia E78.5 ; Degenerative disc disease, lumbar M51.36 ; Diabetes E11.9 and Gastritis K29.70 [place] [id number] [place] [id number] [place] [address] SP Sep, SP [place] [address] [phone] SP Aug, SP [place] [address] [phone] SP Jul, Major depressive disorder, r ecurrent episode, moderate F33.1 SP [place] [address] [phone] SP Jul, Unspecified episodic mood di sorder F39 SP [place] [address] [phone] SP Jul, SP [place] [address] [address] SP Jul, SP [place] [address] [address] SP Jul, SP [place] [address] [address] SP Jul, Type 2 diabetes mellitus wit h hyperglycemia E11.65 ; Diabetic SP E11.40 ; Degenerative disc disease, lumbar M51.36 ; HTN (hypertension) I10 ; Gastritis K29.70 ; Hyperlipidemia E78.5 and CAD (coronary artery disease) I25.10 [place] [address] [address] SP Jul, Severe episode of recurrent major depressive disorder, without SP features F33.2 [place] [address] [phone] SP Jul, SP [facility] [id number] [place] [address] SP Jun, SP [facility] [address] [phone] SP Jun, Diabetes E11.9 ; Diabetic ne uropathy E11.40 ; Degenerative disc SP lumbar M51.36 ; HTN (hypertension) I10 ; Gastritis K29.70 ; Hyperlipidemia E78.5 ; Unspecified episodic mood disorder F39 ; Depression F32.9 and CAD (coronary artery disease) I25.10 [place] [address] [address] SP Jun, SP [place] [address] [address] SP Jun, SP [place] [address] [address] SP Jun, Diabetes E11.9 ; Diabetic ne uropathy E11.40 ; Degenerative disc SP lumbar M51.36 ; HTN (hypertension) I10 ; Gastritis K29.70 ; Chronic pain G89.29 ; Insomnia G47.00 and Unspecified episodic mood disorder F39 [place] [address] [address] SP May, Diabetic neuropathy E11.40 ; Degenerative disc disease, lumbar SP ; HTN (hypertension) I10 ; Gastritis K29.70 ; Hyperlipidemia E78.5 ; Chronic pain G89.29 ; Insomnia G47.00 ; Unspecified episodic mood disorder F39 ; Diabetes E11.9 ; CAD (coronary artery disease) I25.10 and H/O Gram positive sepsis Z86.19 [facility] [address] [phone] SP May, SP [place] [address] [place] [id number] [place] [address] SP May, SP [facility] [address] [address] SP May, SP [facility] [address] [facility] [id number] [address] [place] [phone] SP May, SP [facility] [address] [facility] [id number] [address] [place] [phone] SP May, UTI (urinary tract infection ) N39.0 ; Diabetes E11.9 ; Diabetic SP E11.40 ; Hyperlipidemia E78.5 and Chronic pain G89.29 [facility] [address] [place] [id number] [place] [address] SP May, Insomnia, unspecified G47.00 and Chronic pain G89.29 SP [facility] [address] [place] [id number] [place] [address] SP May, SP [facility] [address] [place] [id number] [place] [phone] SP May, SP [facility] [address] [place] [id number] [place] [phone] SP May, SP [facility] [address] [place] [id number] [place] [phone] SP Apr, Insomnia, unspecified G47.00 ; Chronic pain G89.29 and SP episodic mood disorder F39 [facility] [address] [place] [id number] [place] [phone] SP Apr, Unspecified episodic mood di sorder F39 SP [facility] [address] [place] [id number] [place] [phone] SP Apr, Major depression F32.9 SP [facility] [address] [facility] [id number] [address] [place] [phone] SP Apr, SP [facility] [id number] [address] [place] [phone] SP Apr, Diabetes E11.9 ; Diabetic ne uropathy E11.40 ; Degenerative disc SP lumbar M51.36 ; HTN (hypertension) I10 ; Gastritis K29.70 ; Hyperlipidemia E78.5 ; Chronic pain G89.29 and Insomnia G47.00 [facility] [address] [id number] SP Mar, SP [facility] [id number] [place] [id number] SP Mar, SP [facility] [id number] [place] [id number] SP Mar, SP [facility] [id number] [place] [phone] SP Mar, Diabetes mellitus 250.00 ; D iabetic neuropathy 250.60 ; CAD SP artery disease) 414.00 ; Degenerative disc disease, lumbar 722.52 ; Gastritis 535.50 and Insomnia 780.52 [place] [id number] [id number] SP Mar, Diabetes mellitus 250.00 ; D egenerative disc disease, lumbar SP ; Essential hypertension 401.9 ; Gastritis 535.50 and Chronic pain 338.29 [facility] [address] [id number] SP Feb, [facility] [address] [id number] SP Feb, [facility] [address] [id number] SP Jan, SP [facility] [address] [id number] SP Jan, Diabetes mellitus 250.00 ; D iabetic neuropathy 250.60 ; SP disc disease, lumbar 722.52 ; CAD (coronary artery disease) 414.00 ; Essential hypertension 401.9 ; Gastritis 535.50 ; Hyperlipidemia 272.4 and Distal end of ulna fracture, closed 813.43 [facility] [id number] [address] [place] [id number] SP Dec, Wrist pain 719.43 and Diabet es mellitus 250.00 SP [facility] [address] [id number] [address] [place] [address], [place] [id number] SP May, SP [facility] [address] [id number] [address] [place] [address], [place] [id number] SP Dec, SP [facility] [address] [id number] [address] [place] [address], [place] [id number] SP November, SP [facility] [address] [id number] [address] [place] [phone] SP Oct, SP [facility] [address] [id number] [address] [place] [address], [place] [id number] SP Sep, SP [facility] [address] [id number] [address] [place] [address], [place] [id number] SP Sep, SP [facility] [address] [id number] [address] [place] [address], [place] [id number] SP Jun, SP [facility] [address] [id number] [address] [place] [address], [place] [id number] SP Jun, SP [facility] [address] [id number] [address] [place] [address], [place] [id number] SP Jun, SP [facility] [address] [facility] [id number] [address] [place] [phone] SP Jun, SP [facility] [address] [id number] [address] [place] [id number] SP Jun, SP [facility] [address] [id number] [address] [place] [address], [place] [id number] SP Jun, SP [facility] [address] [id number] [address] [place] [address], [place] [id number] SP Jun, SP [facility] [address] [facility] [id number] [address] [place] [phone] SP May, SP [facility] [address] [id number] [address] [place] [id number] SP May, SP [facility] [address] [facility] [id number] [address] [place] [phone] SP May, SP [facility] [address] [facility] [id number] [address] [place] [phone] SP May, SP [facility] [address] [facility] [id number] [address] [place] [id number] SP Apr, SP [facility] [address] [facility] [id number] [address] [place] [id number] SP Apr, SP [facility] [address] [facility] [id number] [address] [place] [phone] SP Apr, SP [facility] [address] [facility] [id number] [address] [place] [id number] SP Mar, SP [facility] [address] [facility] [id number] [address] [place] [id number] SP Dec, SP IMMUNIZATIONS No Known Immunizations [...]
--- OUTSIDE RECORDS SUMMARY | 2019-06-14 01:47 | XMS REPORT ---
Author Author JOSEBAO VanegasN POS Organization [facility] SP Address [address] [place] [address] SP Care Team Providers Care Microarray Operations Vice President Name Role Phone POS JACK GARCIA Unavailable SP PROBLEMS Type Condition ICD9-CM Code RYS55-HO Code Onset Dates Condition S tatus SNOMED POS Problem Type 2 diabetes mellitus with hyperglycemia E11.65 Active POS Problem Obsessive-compulsive disorder, unspecified type F4 2.9 Active SP Problem Major depressive disorder, recurrent episode, moderate F33.1 Active SP Problem Falls frequently R29.6 Active 279 [id number] SP Problem Diabetes E11.9 Active [id number] SP Problem Type 2 diabetes mellitus with other diab etic neurological complication SP E11.49 Active 55439132 SP Problem History of pulmonary embolism Z86.711 Active 884272923 SP Problem care home 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.4 Active 610381049 SP Problem Type 2 diabetes mellitus with other diabetic kid allen complication SP Active 60911269 SP Problem Hyperlipidemia E78.5 Active 27577 004 SP Problem Insomnia G47.00 Active 647625294 SP Problem HTN (hypertension) I10 Active 3 5228056 SP Problem Chronic pain G89.29 Active 8466245 1 SP Problem CAD (coronary artery disease) I25.10 Active 35849853 SP Problem Degenerative disc disease, lumbar M51.36 Active 55968242 SP Problem Post-traumatic stress disorder F43.10 Active 82402239 SP ALLERGIES Substance Reaction Event Type Date Status POS Viibryd N/V Drug Allergy Jan, Active SP Seroquel N/V and "couldn't do anything." Drug Allergy Jan, 017 Active SP Penicillin V Potassium Unknown Drug Allergy Jan, Activ e SP Lexapro N/V, inc. suicidality Drug Allergy Jan, Active SP Ibuprofen Unknown Drug Allergy Jan, Active SP Depakote inc. suicidality Drug Allergy Jan, Active SP ENCOUNTERS Encounter Location Date Diagnosis POS [facility] [address] [facility] [id number] [address] [place] [phone] SP November, SP [facility] [address] [facility] [id number] [address] [place] [phone] SP Sep, Diabetes E11.9 SP [facility] [address] [facility] [id number] [address] [place] [phone] SP Sep, Chronic pain G89.29 SP [facility] [address] [facility] [id number] [address] [place] [phone] SP Sep, SP [facility] [address] [facility] [id number] [address] [place] [phone] SP Sep, Falls frequently R29.6 ; Elier g term 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.4 SP Type 2 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 E11.49 [facility] [address] [facility] [id number] [address] [place] [phone] SP Sep, SP [facility] [address] [facility] [id number] [address] [place] [phone] SP Sep, Diabetes E11.9 SP [facility] [address] [facility] [id number] [address] [place] [phone] SP Aug, SP [facility] [address] [facility] [id number] [address] [place] [phone] SP Aug, Chronic pain G89.29 SP [facility] [address] [facility] [id number] [address] [place] [phone] SP Aug, SP [facility] [address] [facility] [id number] [address] [place] [phone] SP Aug, Chronic pain G89.29 SP [facility] [address] [facility] [id number] [address] [place] [phone] SP Jul, SP [facility] [address] [facility] [id number] [address] [place] [phone] SP Jul, Diabetes E11.9 and Type 2 di abetes mellitus with other diabetic SP complication E11.29 [facility] [address] [facility] [id number] [address] [place] [phone] SP Jul, Type 2 diabetes mellitus wit h other diabetic kidney complication SP [facility] [address] [facility] [id number] [address] [place] [phone] SP Jul, SP [facility] [address] [facility] [id number] [address] [place] [phone] SP Jul, Chronic pain G89.29 SP [place] [address] [facility] [id number] [address] [place] [phone] SP Jun, Diabetes E11.9 SP [facility] [address] [facility] [id number] [address] [place] [phone] SP Jun, Chronic pain G89.29 SP [place] [address] [facility] [id number] [address] [place] [phone] SP Jun, Diabetes E11.9 ; Atypical ch est pain R07.89 ; 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 ; 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.29 ; Type 2 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 E11.49 ; History of pulmonary embolism Z86.711 and History of CVA (cerebrovascular accident) Z86.73 [place] [address] [facility] [id number] [address] [place] [phone] SP May, SP [facility] [address] [facility] [id number] [address] [place] [phone] SP May, Chronic pain G89.29 SP [facility] [address] [facility] [id number] [address] [place] [phone] SP Apr, Chronic pain G89.29 SP [place] [address] [facility] [id number] [address] [place] [phone] SP Apr, SP [facility] [address] [facility] [id number] [address] [place] [phone] SP 29 Mar, 2017 Chronic pain G89.29 SP [place] [address] [facility] [id number] [address] [place] [phone] SP 18 Mar, 2017 Diabetes E11.9 SP [facility] [address] [facility] [id number] [address] [place] [phone] SP 07 Mar, 2017 SP [place] [address] [facility] [id number] [address] [place] [phone] SP Mar, Degenerative disc disease, l umbar M51.36 SP [place] [address] [facility] [id number] [address] [place] [phone] SP Feb, Diabetes E11.9 SP [place] [address] [facility] [id number] [address] [place] [phone] SP 23 Feb, 2017 Diabetes E11.9 SP [place] [address] [facility] [id number] [address] [place] [phone] SP 16 Feb, 2017 Diabetes E11.9 ; HTN (hypert ension) I10 ; Diabetic neuropathy SP and Leg cramps R25.2 [place] [address] [facility] [id number] [address] [place] [phone] SP 15 Feb, 2017 Sprain of calcaneofibular li gament of right ankle, subsequent SP S93.411D ; Major depressive disorder, recurrent episode, moderate F33.1 ; Diabetes E11.9 ; Hyperlipidemia E78.5 ; Post-traumatic stress disorder F43.10 and Other irritable bowel syndrome K58.8 [place] [address] [facility] [id number] [address] [place] [phone] SP 14 Feb, 2017 Major depressive disorder, r ecurrent episode, moderate F33.1 ; SPtraumatic stress disorder F43.10 and Obsessive-compulsive disorder, unspecified type F42.9 [place] [address] [facility] [id number] [address] [place] [phone] SP Feb, SP [place] [address] [facility] [id number] [address] [place] [phone] SP Feb, Post-traumatic stress disord er F43.10 and Major depressive SP recurrent, moderate F33.1 [facility] [address] [id number] [address] [place] [phone] SP Feb, Diabetes E11.9 SP [facility] [address] [facility] [id number] [address] [place] [phone] SP Feb, Degenerative disc disease, l umbar M51.36 SP [facility] [address] [id number] [address] [place] [phone] SP Feb, Post-traumatic stress disord er F43.10 and Major depressive SP recurrent, moderate F33.1 [facility] [address] [facility] [id number] [address] [place] [phone] SP Feb, SP [facility] [address] [facility] [id number] [address] [place] [phone] SP Feb, Diabetes E11.9 SP [facility] [address] [id number] [address] [place] [phone] SP Jan, Diabetes E11.9 SP [facility] [address] [facility] [id number] [address] [place] [phone] SP Jan, Post-traumatic stress disord er F43.10 and Major depressive SP recurrent, moderate F33.1 [facility] [address] [facility] [id number] [address] [place] [phone] SP Jan, Diabetes E11.9 SP [facility] [address] [id number] [address] [place] [phone] SP Jan, Diabetes E11.9 SP [facility] [address] [facility] [id number] [address] [place] [phone] SP Jan, SP [facility] [address] [facility] [id number] [address] [place] [phone] SP Jan, SP [facility] [address] [facility] [id number] [address] [place] [phone] SP Jan, Post-traumatic stress disord er F43.10 and Major depressive SP recurrent, moderate F33.1 [facility] [address] [id number] [address] [place] [phone] SP Jan, SP [facility] [address] [id number] [address] [place] [phone] SP Jan, Major depressive disorder, r ecurrent episode, moderate F33.1 ; SPtraumatic stress disorder F43.10 and Obsessive-compulsive disorder, unspecified type F42.9 [facility] [address] [id number] [address] [place] [phone] SP Jan, SP [facility] [address] [id number] [address] [place] [phone] SP Jan, Diabetes E11.9 SP [facility] [address] [id number] [address] [place] [phone] SP Jan, SP [facility] [address] [id number] [address] [place] [phone] SP Jan, Sprain of calcaneofibular li gament of right ankle, subsequent SP S93.411D [facility] [address] [id number] [address] [place] [phone] SP Jan, Post-traumatic stress disord er F43.10 and Major depressive SP recurrent, moderate F33.1 [facility] [address] [id number] [address] [place] [phone] SP Jan, Diabetes E11.9 SP [facility] [address] [id number] [address] [place] [phone] SP Dec, Major depressive disorder, r ecurrent episode, moderate F33.1 ; SPtraumatic stress disorder F43.10 and Obsessive-compulsive disorder, unspecified type F42.9 [facility] [address] [id number] [address] [place] [phone] SP Dec, SP [facility] [address] [id number] [address] [place] [phone] SP 14 Dec, 2016 Sprain of calcaneofibular li gament of right ankle, subsequent SP S93.411D [facility] [address] [facility] [id number] [address] [place] [phone] SP 13 Dec, 2016 Post-traumatic stress disord er F43.10 and Major depressive SP recurrent, moderate F33.1 [place] [address] [id number] [address] [place] [phone] SP 13 Dec, 2016 Sprain of calcaneofibular li gament of right ankle, subsequent SP S93.411D [place] [address] [facility] [id number] [address] [place] [phone] SP Dec, Hyperlipidemia E78.5 SP [place] [address] [place] [id number] [address] [place] [phone] SP Dec, SP [place] [address] [facility] [id number] [address] [place] [phone] SP Dec, Diabetes E11.9 ; Diabetic ne uropathy E11.40 ; Degenerative disc SP lumbar M51.36 ; Hyperlipidemia E78.5 ; Insomnia G47.00 ; CAD (coronary artery disease) I25.10 ; Major depressive disorder, recurrent, moderate F33.1 ; Post- traumatic stress disorder F43.10 and Other irritable bowel syndrome K58.8 [place] [address] [facility] [id number] [address] [place] [phone] SP November, Diabetic neuropathy E11.40 a nd Hyperlipidemia E78.5 SP [place] [address] [facility] [id number] [address] [place] [phone] SP November, Degenerative disc disease, l umbar M51.36 SP [place] [address] [facility] [id number] [address] [place] [phone] SP Oct, SP [place] [address] [facility] [id number] [address] [place] [phone] SP Oct, Degenerative disc disease, l umbar M51.36 SP [facility] [address] [facility] [id number] [address] [place] [phone] SP Sep, Degenerative disc disease, l umbar M51.36 and HTN (hypertension) SP [facility] [address] [facility] [id number] [address] [place] [phone] SP Sep, Diabetic neuropathy E11.40 ; HTN (hypertension) I10 ; SP disc disease, lumbar M51.36 ; Hyperlipidemia E78.5 ; Insomnia G47.00 ; CAD (coronary artery disease) I25.10 and Diabetes E11.9 [facility] [address] [facility] [id number] [place] [phone] SP Aug, SP [facility] [address] [facility] [id number] [address] [place] [phone] SP Aug, Type 2 diabetes mellitus wit h hyperglycemia E11.65 SP [facility] [address] [facility] [id number] [address] [place] [phone] SP Aug, SP [facility] [address] [facility] [id number] [address] [place] [phone] SP Jul, SP [facility] [address] [place] [id number] [address] [place] [phone] SP Jul, SP [facility] [address] [place] [id number] [address] [place] [phone] SP Jun, SP [facility] [address] [facility] [id number] [address] [place] [phone] SP Jun, SP [facility] [address] [facility] [id number] [address] [place] [phone] SP Jun, SP [facility] [address] [place] [id number] [address] [place] [phone] SP Jun, SP [facility] [address] [place] [id number] [address] [place] [phone] SP May, Major depressive disorder, r ecurrent episode, moderate F33.1 and SPtraumatic stress disorder F43.10 [place] [address] [id number] [address] [place] [phone] SP May, Major depressive disorder, r ecurrent episode, moderate F33.1 and SPtraumatic stress disorder F43.10 [facility] [address] [id number] [address] [place] [phone] SP May, Diabetes E11.9 ; Diabetic ne uropathy E11.40 ; HTN (hypertension) SP ; Gastritis K29.70 ; Hyperlipidemia E78.5 ; Insomnia G47.00 and Major depressive disorder, recurrent, moderate F33.1 [place] [address] [id number] [address] [place] [phone] SP May, Major depressive disorder, r ecurrent episode, moderate F33.1 SP [place] [address] [facility] [id number] [address] [place] [phone] SP Apr, SP [place] [address] [id number] [address] [place] [phone] SP Apr, Major depressive disorder, r ecurrent episode, moderate F33.1 and SPtraumatic stress disorder F43.10 [place] [address] [facility] [id number] [address] [place] [phone] SP Apr, Diabetes E11.9 ; Diabetic ne uropathy E11.40 ; Degenerative disc SP lumbar M51.36 ; HTN (hypertension) I10 ; Hyperlipidemia E78.5 ; Chronic pain G89.29 ; CAD (coronary artery disease) I25.10 and Major depressive disorder, recurrent, moderate F33.1 [place] [address] [id number] [address] [place] [phone] SP Apr, Major depressive disorder, r ecurrent episode, moderate F33.1 and SPtraumatic stress disorder F43.10 [place] [address] [id number] [address] [place] [phone] SP Apr, Major depressive disorder, r ecurrent episode, moderate F33.1 and SPtraumatic stress disorder F43.10 [facility] [address] [facility] [id number] [address] [place] [phone] SP Apr, Major depressive disorder, r ecurrent episode, moderate F33.1 and SP episodic mood disorder F39 [facility] [address] [facility] [id number] [address] [place] [phone] SP Apr, Chronic pain G89.29 ; Diabet ic neuropathy E11.40 ; HTN SP I10 ; Insomnia G47.00 ; CAD (coronary artery disease) I25.10 ; Hyperlipidemia E78.5 ; Degenerative disc disease, lumbar M51.36 ; Diabetes E11.9 and Gastritis K29.70 [place] [address] [facility] [id number] [address] [place] [phone] SP Sep, SP [place] [address] [place] [id number] [address] [place] [phone] SP Aug, SP [facility] [address] [place] [id number] [place] [phone] SP Jul, Major depressive disorder, r ecurrent episode, moderate F33.1 SP [facility] [address] [facility] [id number] [address] [place] [phone] SP Jul, Unspecified episodic mood di sorder F39 SP [place] [address] [facility] [id number] [address] [place] [phone] SP Jul, SP [place] [address] [place] [id number] [address] [place] [phone] SP Jul, SP [facility] [address] [facility] [id number] [address] [place] [phone] SP Jul, SP [place] [address] [facility] [id number] [address] [place] [phone] SP Jul, Type 2 diabetes mellitus wit h hyperglycemia E11.65 ; Diabetic SP E11.40 ; Degenerative disc disease, lumbar M51.36 ; HTN (hypertension) I10 ; Gastritis K29.70 ; Hyperlipidemia E78.5 and CAD (coronary artery disease) I25.10 [place] [address] [facility] [id number] [address] [place] [phone] SP Jul, Severe episode of recurrent major depressive disorder, without SP features F33.2 [place] [address] [facility] [id number] [address] [place] [phone] SP Jul, SP [facility] [address] [facility] [id number] [address] [place] [phone] SP Jun, SP [place] [address] [facility] [id number] [address] [place] [phone] SP Jun, Diabetes E11.9 ; Diabetic ne uropathy E11.40 ; Degenerative disc SP lumbar M51.36 ; HTN (hypertension) I10 ; Gastritis K29.70 ; Hyperlipidemia E78.5 ; Unspecified episodic mood disorder F39 ; Depression F32.9 and CAD (coronary artery disease) I25.10 [place] [address] [facility] [id number] [address] [place] [phone] SP Jun, SP [place] [address] [facility] [id number] [address] [place] [phone] SP Jun, SP [place] [address] [facility] [id number] [address] [place] [phone] SP Jun, Diabetes E11.9 ; Diabetic ne uropathy E11.40 ; Degenerative disc SP lumbar M51.36 ; HTN (hypertension) I10 ; Gastritis K29.70 ; Chronic pain G89.29 ; Insomnia G47.00 and Unspecified episodic mood disorder F39 [place] [address] [facility] [id number] [address] [place] [phone] SP May, Diabetic neuropathy E11.40 ; Degenerative disc disease, lumbar SP ; HTN (hypertension) I10 ; Gastritis K29.70 ; Hyperlipidemia E78.5 ; Chronic pain G89.29 ; Insomnia G47.00 ; Unspecified episodic mood disorder F39 ; Diabetes E11.9 ; CAD (coronary artery disease) I25.10 and H/O Gram positive sepsis Z86.19 [facility] [address] [facility] [id number] [address] [place] [phone] SP May, SP [facility] [address] [facility] [id number] [address] [place] [phone] SP May, SP [facility] [address] [facility] [id number] [address] [place] [phone] SP May, SP [facility] [address] [facility] [id number] [address] [place] [phone] SP May, SP [facility] [address] [facility] [id number] [address] [place] [phone] SP May, UTI (urinary tract infection ) N39.0 ; Diabetes E11.9 ; Diabetic SP E11.40 ; Hyperlipidemia E78.5 and Chronic pain G89.29 [facility] [address] [facility] [id number] [address] [place] [phone] SP May, Insomnia, unspecified G47.00 and Chronic pain G89.29 SP [facility] [address] [facility] [id number] [address] [place] [phone] SP May, SP [facility] [address] [facility] [id number] [address] [place] [phone] SP May, SP [facility] [address] [facility] [id number] [address] [place] [phone] SP May, SP [facility] [address] [facility] [id number] [address] [place] [phone] SP Apr, Insomnia, unspecified G47.00 ; Chronic pain G89.29 and SP episodic mood disorder F39 [facility] [address] [facility] [id number] [address] [place] [id number] SP Apr, Unspecified episodic mood di sorder F39 SP [facility] [address] [facility] [id number] [address] [place] [phone] SP Apr, Major depression F32.9 SP [facility] [address] [phone] SP Apr, SP [facility] [address] [phone] SP Apr, Diabetes E11.9 ; Diabetic ne uropathy E11.40 ; Degenerative disc SP lumbar M51.36 ; HTN (hypertension) I10 ; Gastritis K29.70 ; Hyperlipidemia E78.5 ; Chronic pain G89.29 and Insomnia G47.00 [place] [address] [id number] SP Mar, [facility] [address] [phone] SP Mar, [facility] [address] [phone] SP Mar, [place] [address] [phone] SP Mar, Diabetes mellitus 250.00 ; D iabetic neuropathy 250.60 ; CAD SP artery disease) 414.00 ; Degenerative disc disease, lumbar 722.52 ; Gastritis 535.50 and Insomnia 780.52 [place] [address] [id number] SP Mar, Diabetes mellitus 250.00 ; D egenerative disc disease, lumbar SP ; Essential hypertension 401.9 ; Gastritis 535.50 and Chronic pain 338.29 [place] [address] [phone] SP Feb, SP [facility] [address] [id number] SP Feb, SP [facility] [address] [id number] SP Jan, SP [facility] [address] [address] SP Jan, Diabetes mellitus 250.00 ; D iabetic neuropathy 250.60 ; SP disc disease, lumbar 722.52 ; CAD (coronary artery disease) 414.00 ; Essential hypertension 401.9 ; Gastritis 535.50 ; Hyperlipidemia 272.4 and Distal end of ulna fracture, closed 813.43 [facility] [address] [facility] [id number] [address] [place] [phone] SP Dec, Wrist pain 719.43 and Diabet es mellitus 250.00 SP [facility] [address] [id number] [address] [place] [phone] SP May, SP [facility] [address] [facility] [id number] [address] [place] [phone] SP Dec, SP [facility] [address] [facility] [id number] [address] [place] [phone] SP November, SP [facility] [address] [facility] [id number] [address] [place] [phone] SP Oct, SP [facility] [address] [facility] [id number] [address] [place] [phone] SP Sep, SP [facility] [address] [place] [id number] [address] [place] [phone] SP Sep, SP [facility] [address] [facility] [id number] [address] [place] [phone] SP Jun, SP [facility] [address] [place] [id number] [address] [place] [phone] SP Jun, SP [facility] [address] [facility] [id number] [address] [place] [phone] SP Jun, SP [facility] [address] [place] [id number] [address] [place] [phone] SP Jun, SP [facility] [address] [facility] [id number] [address] [place] [phone] SP Jun, SP [facility] [address] [place] [id number] [address] [place] [phone] SP Jun, SP [facility] [address] [id number] [address] [place] [phone] SP Jun, SP [facility] [address] [id number] [address] [place] [phone] SP May, SP [facility] [address] [id number] [address] [place] [phone] SP May, SP [facility] [address] [id number] [address] [place] [phone] SP May, SP [facility] [address] [id number] [address] [place] [phone] SP May, SP [facility] [address] [id number] [address] [place] [phone] SP Apr, SP [facility] [address] [id number] [address] [place] [id number] SP Apr, SP [facility] [address] [id number] [address] [place] [phone] SP Apr, SP [facility] [address] [id number] [address] [place] [phone] SP Mar, SP [facility] [address] [id number] [address] [place] [phone] SP Dec, SP IMMUNIZATIONS No Known Immunizations SOCIAL HISTORY Never Assessed REASON FOR VISIT f/u - Nick MUELLER PLAN OF CARE Activity Details POS SP Follow Up 4 Weeks Reason: f/u SP VITAL SIGNS Height 61 in 2017-02-02 POS Weight 131.0 lbs 2017-02-02 POS Heart Rate 88 bpm 2017-02-02 POS Respiratory Rate 18 2017-02-02 POS BMI 24.75 kg/m2 2017-02-02 POS Blood pressure systolic 146 mmHg 2017-02-02 POS Blood pressure diastolic 92 mmHg 2017-02-02 POS MEDICATIONS Medication Instructions Dosage Frequency Start Date End Date Duration S tatus POS Crestor 40 MG Orally Once a day 1 tablet 24h 30 days Active SP Gabapentin 300 MG Orally Three times a day 1 capsule 8h Active SP Lisinopril-Hydrochlorothiazide 20-25 MG Orally Once a day 1 tablet 24h 07 Dec, 30 day(s) Active SP Hydrocodone-Acetaminophen 10-325 MG Orally 3 times a day 1 tablet a s needed 8h SP Jan, 2017 28 days Active SP Lamictal 25 MG Orally daily for two weeks, then 2 tablets daily 1 tabl et SP day(s) Active SP Prazosin HCl 1 MG Orally Once a day 1 capsule at bedtime 24h Jan, 30 SP Active SP Metoclopramide HCl 10 mg Orally every 6 hours 1 tab 6h Active SP Levemir FlexTouch 100 UNIT/ML Subcutaneous 50 units bid inject Active SP Aspir-81 81 MG Orally Once a day 1 tablet 24h Active SP Plavix 75 MG Orally Once a day 1 tablet 24h 28 Active SP NovoLog Flexpen 100 UNIT/ML Subcutaneous 3 times a day with meals inject 40 SP Active SP RESULTS No Results PROCEDURES [...]
--- OUTSIDE RECORDS SUMMARY | 2019-06-14 01:47 | XMS REPORT ---
Author Author JALEN PEREZ POS Organization [facility] SP Address [address] [place] [address] SP Care Team Providers Care Bilingual Manager Name Role Phone POS ANA JALEN Unavailable SP PROBLEMS Type Condition ICD9-CM Code UCL99-WR Code Onset Dates Condition S tatus SNOMED POS Problem Post-traumatic stress disorder F43.10 Active [id number] POS Problem Obsessive-compulsive disorder, unspecified type F4 2.9 Active SP Problem Type 2 diabetes mellitus with hyperglycemia E11.65 Active SP Problem Falls frequently R29.6 Active 279 [id number] SP Problem History of pulmonary embolism Z86.711 Active 487399161 SP Problem [facility] 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.4 Active [id number] SP Problem Major depressive disorder, recurrent episode, moderate F33.1 Active SP Problem Type 2 diabetes mellitus with other diabetic kid allen complication SP Active 96076775 SP Problem Type 2 diabetes mellitus with other diab etic neurological complication SP E11.49 Active 84640535 SP Problem Chronic pain G89.29 Active 2472905 1 SP Problem Degenerative disc disease, lumbar M51.36 Active 26435258 SP Problem Insomnia G47.00 Active 556346241 SP Problem HTN (hypertension) I10 Active 3 4286996 SP Problem Hyperlipidemia E78.5 Active 28212 004 SP Problem CAD (coronary artery disease) I25.10 Active 88225756 SP ALLERGIES No Information ENCOUNTERS Encounter Location Date Diagnosis POS [facility] [address] [facility] [id number] [address] [place] [phone] SP Jan, SP [facility] [address] [facility] [id number] [address] [place] [phone] SP Jan, SP [facility] [address] [facility] [id number] [address] [place] [phone] SP Jan, SP [facility] [address] [facility] [id number] [address] [place] [phone] SP Jan, Type 2 diabetes mellitus wit h hyperglycemia E11.65 and SP vomiting with nausea, unspecified vomiting type R11.2 [facility] [address] [facility] [id number] [address] [place] [phone] SP Dec, CAD (coronary artery disease ) I25.10 and Atypical chest pain SP [facility] [address] [facility] [id number] [address] [place] [phone] SP Dec, SP [place] [address] [facility] [id number] [address] [place] [phone] SP Dec, Diabetes E11.9 ; Type 2 diab etes mellitus with hyperglycemia SP and Intractable vomiting with nausea, unspecified vomiting type R11.2 [place] [address] [facility] [id number] [address] [place] [phone] SP Dec, Chronic pain G89.29 SP [place] [address] [facility] [id number] [address] [place] [phone] SP November, SP [place] [address] [facility] [id number] [place] [phone] SP November, Diabetes E11.9 ; CAD ([place]in[place] ry artery disease) I25.10 ; Atypical SP pain R07.89 ; Type 2 diabetes mellitus with hyperglycemia E11.65 ; 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.29 ; [facility] 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.4 and Chronic pain G89.29 [place] [address] [facility] [id number] [address] [place] [phone] SP Oct, SP [place] [address] [facility] [id number] [address] [place] [phone] SP Oct, Chronic pain G89.29 SP [place] [address] [facility] [id number] [address] [place] [phone] SP Sep, Diabetes E11.9 SP [place] [address] [facility] [id number] [address] [place] [phone] SP Sep, Chronic pain G89.29 SP [facility] [address] [facility] [id number] [address] [place] [phone] SP Sep, SP [facility] [address] [facility] [id number] [address] [place] [phone] SP Sep, Falls frequently R29.6 ; Elier g term 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.4 SP Type 2 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 E11.49 [facility] [address] [facility] [id number] [address] [place] [phone] SP Sep, SP [facility] [address] [facility] [id number] [address] [place] [phone] SP Sep, Diabetes E11.9 SP [facility] [address] [facility] [id number] [address] [place] [phone] SP Aug, SP [facility] [address] [facility] [id number] [address] [place] [phone] SP Aug, Chronic pain G89.29 SP [facility] [address] [facility] [id number] [address] [place] [phone] SP Aug, SP [facility] [address] [facility] [id number] [address] [place] [phone] SP Aug, Chronic pain G89.29 SP [facility] [address] [facility] [id number] [address] [place] [phone] SP Jul, SP [facility] [address] [facility] [id number] [address] [place] [phone] SP Jul, Diabetes E11.9 and Type 2 di abetes mellitus with other diabetic SP complication E11.29 [facility] [address] [facility] [id number] [address] [place] [phone] SP Jul, Type 2 diabetes mellitus wit h other diabetic kidney complication SP [facility] [address] [facility] [id number] [address] [place] [phone] SP Jul, SP [facility] [address] [facility] [id number] [address] [place] [phone] SP Jul, Chronic pain G89.29 SP [facility] [address] [facility] [id number] [address] [place] [phone] SP Jun, Diabetes E11.9 SP [facility] [address] [facility] [id number] [address] [place] [phone] SP Jun, Chronic pain G89.29 SP [facility] [address] [facility] [id number] [address] [place] [phone] SP Jun, Diabetes E11.9 ; Atypical ch est pain R07.89 ; [facility] current SP of insulin Z79.4 ; 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.29 ; Type 2 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 E11.49 ; History of pulmonary embolism Z86.711 and History of CVA (cerebrovascular accident) Z86.73 [facility] [address] [facility] [id number] [address] [place] [phone] SP May, SP [facility] [address] [facility] [id number] [address] [place] [phone] SP May, Chronic pain G89.29 SP [facility] [address] [facility] [id number] [address] [place] [phone] SP Apr, Chronic pain G89.29 SP [facility] [address] [facility] [id number] [address] [place] [phone] SP Apr, SP [facility] [address] [facility] [id number] [address] [place] [phone] SP Mar, Chronic pain G89.29 SP [facility] [address] [facility] [id number] [address] [place] [phone] SP Mar, Diabetes E11.9 SP [facility] [address] [facility] [id number] [address] [place] [phone] SP Mar, SP [place] [address] [facility] [id number] [address] [place] [phone] SP Mar, Degenerative disc disease, l umbar M51.36 SP [place] [address] [facility] [id number] [address] [place] [phone] SP Feb, Diabetes E11.9 SP [place] [address] [facility] [id number] [address] [place] [phone] SP Feb, Diabetes E11.9 SP [place] [address] [facility] [id number] [address] [place] [phone] SP Feb, Diabetes E11.9 ; HTN (hypert ension) I10 ; Diabetic neuropathy SP and Leg cramps R25.2 [place] [address] [facility] [id number] [address] [place] [phone] SP Feb, Sprain of calcaneofibular li gament of right ankle, subsequent SP S93.411D ; Major depressive disorder, recurrent episode, moderate F33.1 ; Diabetes E11.9 ; Hyperlipidemia E78.5 ; Post-traumatic stress disorder F43.10 and Other irritable bowel syndrome K58.8 [place] [address] [place] [id number] [place] [phone] SP Feb, Major depressive disorder, r ecurrent episode, moderate F33.1 ; SPtraumatic stress disorder F43.10 and Obsessive-compulsive disorder, unspecified type F42.9 [place] [address] [facility] [id number] [address] [place] [phone] SP Feb, SP [place] [address] [facility] [id number] [address] [place] [phone] SP Feb, Post-traumatic stress disord er F43.10 and Major depressive SP recurrent, moderate F33.1 [place] [address] [facility] [id number] [address] [place] [id number] SP Feb, Diabetes E11.9 SP [place] [address] [facility] [id number] [address] [place] [phone] SP Feb, Degenerative disc disease, l umbar M51.36 SP [facility] [address] [id number] [address] [place] [phone] SP Feb, Post-traumatic stress disord er F43.10 and Major depressive SP recurrent, moderate F33.1 [facility] [address] [id number] [address] [place] [phone] SP Feb, SP [facility] [address] [id number] [address] [place] [phone] SP Feb, Diabetes E11.9 SP [facility] [address] [id number] [address] [place] [phone] SP Jan, Diabetes E11.9 SP [facility] [address] [id number] [address] [place] [phone] SP Jan, Post-traumatic stress disord er F43.10 and Major depressive SP recurrent, moderate F33.1 [facility] [address] [id number] [address] [place] [phone] SP Jan, Diabetes E11.9 SP [facility] [address] [id number] [address] [place] [phone] SP Jan, Diabetes E11.9 SP [facility] [address] [id number] [address] [place] [phone] SP Jan, SP [facility] [address] [id number] [address] [place] [phone] SP Jan, SP [facility] [address] [id number] [address] [place] [phone] SP Jan, Post-traumatic stress disord er F43.10 and Major depressive SP recurrent, moderate F33.1 [facility] [address] [id number] [address] [place] [phone] SP Jan, SP [facility] [address] [id number] [address] [place] [phone] SP Jan, Major depressive disorder, r ecurrent episode, moderate F33.1 ; SPtraumatic stress disorder F43.10 and Obsessive-compulsive disorder, unspecified type F42.9 [facility] [address] [id number] [address] [place] [phone] SP Jan, SP [facility] [address] [id number] [address] [place] [phone] SP Jan, Diabetes E11.9 SP [facility] [address] [id number] [address] [place] [phone] SP Jan, SP [facility] [address] [id number] [address] [place] [phone] SP Jan, Sprain of calcaneofibular li gament of right ankle, subsequent SP S93.411D [facility] [address] [id number] [address] [place] [phone] SP Jan, Post-traumatic stress disord er F43.10 and Major depressive SP recurrent, moderate F33.1 [facility] [address] [id number] [address] [place] [phone] SP Jan, Diabetes E11.9 SP [facility] [address] [id number] [address] [place] [phone] SP 16 Dec, 2016 Major depressive disorder, r ecurrent episode, moderate F33.1 ; SPtraumatic stress disorder F43.10 and Obsessive-compulsive disorder, unspecified type F42.9 [facility] [address] [id number] [address] [place] [phone] SP 15 Dec, 2016 SP [facility] [address] [id number] [address] [place] [phone] SP 14 Dec, 2016 Sprain of calcaneofibular li gament of right ankle, subsequent SP S93.411D [facility] [address] [id number] [address] [place] [phone] SP Dec, Post-traumatic stress disord er F43.10 and Major depressive SP recurrent, moderate F33.1 [place] [address] [facility] [id number] [address] [place] [phone] SP Dec, Sprain of calcaneofibular li gament of right ankle, subsequent SP S93.411D [place] [address] [facility] [id number] [address] [place] [phone] SP Dec, Hyperlipidemia E78.5 SP [place] [address] [facility] [id number] [address] [place] [phone] SP Dec, SP [place] [address] [facility] [id number] [address] [place] [phone] SP Dec, Diabetes E11.9 ; Diabetic ne uropathy E11.40 ; Degenerative disc SP lumbar M51.36 ; Hyperlipidemia E78.5 ; Insomnia G47.00 ; CAD (coronary artery disease) I25.10 ; Major depressive disorder, recurrent, moderate F33.1 ; Post- traumatic stress disorder F43.10 and Other irritable bowel syndrome K58.8 [place] [address] [facility] [id number] [address] [place] [phone] SP November, Diabetic neuropathy E11.40 a nd Hyperlipidemia E78.5 SP [place] [address] [facility] [id number] [address] [place] [phone] SP November, Degenerative disc disease, l umbar M51.36 SP [place] [address] [facility] [id number] [address] [place] [phone] SP Oct, SP [place] [address] [facility] [id number] [address] [place] [phone] SP Oct, Degenerative disc disease, l umbar M51.36 SP [place] [address] [facility] [id number] [address] [place] [phone] SP Sep, Degenerative disc disease, l umbar M51.36 and HTN (hypertension) SP [place] [address] [facility] [id number] [address] [place] [phone] SP 01 Mar, 2017 Diabetic neuropathy E11.40 ; HTN (hypertension) I10 ; SP disc disease, lumbar M51.36 ; Hyperlipidemia E78.5 ; Insomnia G47.00 ; CAD (coronary artery disease) I25.10 and Diabetes E11.9 [facility] [address] [facility] [id number] [address] [place] [phone] SP Aug, SP [facility] [address] [facility] [id number] [address] [place] [phone] SP Aug, Type 2 diabetes mellitus wit h hyperglycemia E11.65 SP [facility] [address] [facility] [id number] [address] [place] [phone] SP Aug, SP [facility] [address] [facility] [id number] [address] [place] [phone] SP Jul, SP [facility] [address] [facility] [id number] [address] [place] [phone] SP Jul, SP [facility] [address] [facility] [id number] [address] [place] [phone] SP Jun, SP [facility] [address] [facility] [id number] [address] [place] [phone] SP Jun, SP [facility] [address] [facility] [id number] [address] [place] [phone] SP Jun, SP [facility] [address] [facility] [id number] [address] [place] [phone] SP Jun, SP [facility] [address] [facility] [id number] [address] [place] [phone] SP May, Major depressive disorder, r ecurrent episode, moderate F33.1 and SPtraumatic stress disorder F43.10 [facility] [address] [facility] [id number] [address] [place] [phone] SP May, Major depressive disorder, r ecurrent episode, moderate F33.1 and SPtraumatic stress disorder F43.10 [facility] [address] [facility] [id number] [address] [place] [phone] SP May, Diabetes E11.9 ; Diabetic ne uropathy E11.40 ; HTN (hypertension) SP ; Gastritis K29.70 ; Hyperlipidemia E78.5 ; Insomnia G47.00 and Major depressive disorder, recurrent, moderate F33.1 [place] [address] [facility] [id number] [address] [place] [phone] SP May, Major depressive disorder, r ecurrent episode, moderate F33.1 SP [place] [address] [facility] [id number] [address] [place] [phone] SP Apr, SP [place] [address] [facility] [id number] [address] [place] [phone] SP Apr, Major depressive disorder, r ecurrent episode, moderate F33.1 and SPtraumatic stress disorder F43.10 [place] [address] [place] [id number] [address] [place] [phone] SP Apr, Diabetes E11.9 ; Diabetic ne uropathy E11.40 ; Degenerative disc SP lumbar M51.36 ; HTN (hypertension) I10 ; Hyperlipidemia E78.5 ; Chronic pain G89.29 ; CAD (coronary artery disease) I25.10 and Major depressive disorder, recurrent, moderate F33.1 [place] [address] [facility] [id number] [address] [place] [phone] SP Apr, Major depressive disorder, r ecurrent episode, moderate F33.1 and SPtraumatic stress disorder F43.10 [place] [address] [facility] [id number] [address] [place] [phone] SP Apr, Major depressive disorder, r ecurrent episode, moderate F33.1 and SPtraumatic stress disorder F43.10 [place] [address] [facility] [id number] [address] [place] [phone] SP Apr, Major depressive disorder, r ecurrent episode, moderate F33.1 and SP episodic mood disorder F39 [place] [address] [facility] [id number] [address] [place] [phone] SP Apr, Chronic pain G89.29 ; Diabet ic neuropathy E11.40 ; HTN SP I10 ; Insomnia G47.00 ; CAD (coronary artery disease) I25.10 ; Hyperlipidemia E78.5 ; Degenerative disc disease, lumbar M51.36 ; Diabetes E11.9 and Gastritis K29.70 [place] [address] [facility] [id number] [place] [phone] SP Sep, SP [place] [address] [phone] SP Aug, SP [place] [address] [address] SP Jul, Major depressive disorder, r ecurrent episode, moderate F33.1 SP [place] [address] [phone] SP Jul, Unspecified episodic mood di sorder F39 SP [place] [address] [phone] SP Jul, SP [place] [address] [address] SP Jul, SP [place] [address] [phone] SP Jul, [place] [address] [phone] SP Jul, Type 2 diabetes mellitus wit h hyperglycemia E11.65 ; Diabetic SP E11.40 ; Degenerative disc disease, lumbar M51.36 ; HTN (hypertension) I10 ; Gastritis K29.70 ; Hyperlipidemia E78.5 and CAD (coronary artery disease) I25.10 [place] [address] [phone] SP Jul, Severe episode of recurrent major depressive disorder, without SP features F33.2 [place] [address] [phone] SP Jul, SP [facility] [address] [facility] [id number] [address] [place] [phone] SP Jun, SP [facility] [address] [place] [id number] [place] [address] SP Jun, Diabetes E11.9 ; Diabetic ne uropathy E11.40 ; Degenerative disc SP lumbar M51.36 ; HTN (hypertension) I10 ; Gastritis K29.70 ; Hyperlipidemia E78.5 ; Unspecified episodic mood disorder F39 ; Depression F32.9 and CAD (coronary artery disease) I25.10 [place] [address] [phone] SP Jun, SP [place] [address] [place] [id number] [place] [phone] SP Jun, SP [place] [address] [place] [id number] [place] [phone] SP Jun, Diabetes E11.9 ; Diabetic ne uropathy E11.40 ; Degenerative disc SP lumbar M51.36 ; HTN (hypertension) I10 ; Gastritis K29.70 ; Chronic pain G89.29 ; Insomnia G47.00 and Unspecified episodic mood disorder F39 [place] [address] [address] SP May, Diabetic neuropathy E11.40 ; Degenerative disc disease, lumbar SP ; HTN (hypertension) I10 ; Gastritis K29.70 ; Hyperlipidemia E78.5 ; Chronic pain G89.29 ; Insomnia G47.00 ; Unspecified episodic mood disorder F39 ; Diabetes E11.9 ; CAD (coronary artery disease) I25.10 and H/O Gram positive sepsis Z86.19 [place] [address] [facility] [id number] [address] [place] [phone] SP May, SP [place] [address] [place] [id number] [place] [phone] SP May, SP [facility] [address] [place] [id number] [place] [phone] SP May, SP [facility] [address] [facility] [id number] [address] [place] [phone] SP May, SP [facility] [address] [facility] [id number] [address] [place] [id number] SP May, UTI (urinary tract infection ) N39.0 ; Diabetes E11.9 ; Diabetic SP E11.40 ; Hyperlipidemia E78.5 and Chronic pain G89.29 [facility] [address] [facility] [id number] [address] [place] [phone] SP May, Insomnia, unspecified G47.00 and Chronic pain G89.29 SP [facility] [address] [facility] [id number] [address] [place] [id number] SP May, SP [facility] [id number] [place] [phone] SP May, SP [facility] [id number] [place] [phone] SP May, SP [facility] [id number] [place] [id number] SP Apr, Insomnia, unspecified G47.00 ; Chronic pain G89.29 and SP episodic mood disorder F39 [facility] [id number] [place] [id number] SP Apr, Unspecified episodic mood di sorder F39 SP [facility] [address] [facility] [id number] [address] [place] [phone] SP Apr, Major depression F32.9 SP [facility] [address] [facility] [id number] [address] [place] [phone] SP Apr, SP [facility] [address] [facility] [id number] [address] [place] [phone] SP Apr, Diabetes E11.9 ; Diabetic ne uropathy E11.40 ; Degenerative disc SP lumbar M51.36 ; HTN (hypertension) I10 ; Gastritis K29.70 ; Hyperlipidemia E78.5 ; Chronic pain G89.29 and Insomnia G47.00 [facility] [facility] [id number] [address] [place] [id number] SP Mar, SP [facility] [id number] [place] [id number] SP Mar, SP [facility] [id number] [place] [id number] SP Mar, SP [facility] [id number] [place] [id number] SP Mar, Diabetes mellitus 250.00 ; D iabetic neuropathy 250.60 ; CAD SP artery disease) 414.00 ; Degenerative disc disease, lumbar 722.52 ; Gastritis 535.50 and Insomnia 780.52 [place] [id number] [id number] SP Mar, Diabetes mellitus 250.00 ; D egenerative disc disease, lumbar SP ; Essential hypertension 401.9 ; Gastritis 535.50 and Chronic pain 338.29 [facility] [address] [id number] SP Feb, SP [facility] [address] [id number] SP Feb, SP [facility] [address] [id number] [address] [place] [id number] SP Jan, SP [facility] [address] [id number] SP Jan, Diabetes mellitus 250.00 ; D iabetic neuropathy 250.60 ; SP disc disease, lumbar 722.52 ; CAD (coronary artery disease) 414.00 ; Essential hypertension 401.9 ; Gastritis 535.50 ; Hyperlipidemia 272.4 and Distal end of ulna fracture, closed 813.43 [facility] [id number] [address] [place] [id number] SP Dec, Wrist pain 719.43 and Diabet es mellitus 250.00 SP [facility] [address] [id number] [address] [place] [address], [place] [address] SP May, SP [facility] [address] [id number] [address] [place] [address], [place] [address] SP Dec, SP [facility] [address] [id number] [address] [place] [address], [place] [address] SP November, SP [facility] [address] [id number] [address] [place] [address], [place] [id number] SP 16 Oct, 2009 SP [facility] [address] [id number] [address] [place] [address], [place] [address] SP Sep, SP [facility] [address] [id number] [address] [place] [address], [place] [address] SP Sep, SP [facility] [address] [id number] [address] [place] [id number] SP Jun, SP [facility] [address] [id number] [address] [place] [address], [place] [address] SP Jun, SP [facility] [address] [id number] [address] [place] [address], [place] [address] SP Jun, SP [facility] [address] [id number] [address] [place] [id number] SP Jun, SP [facility] [address] [id number] [address] [place] [id number] SP Jun, SP [facility] [address] [id number] [address] [place] [address], [place] [address] SP Jun, SP [facility] [address] [id number] [address] [place] [address], [place] [id number] SP Jun, SP [facility] [address] [id number] [address] [place] [address], [place] [address] SP May, SP [facility] [address] [id number] [address] [place] [id number] SP May, SP [facility] [address] [id number] [address] [place] [id number] SP May, SP [facility] [address] [id number] [address] [place] [id number] SP May, SP [facility] [address] [id number] [address] [place] [id number] SP Apr, SP [facility] [address] [id number] [address] [place] [id number] SP Apr, SP [facility] [address] [facility] [id number] [address] [place] [id number] SP Apr, SP [facility] [address] [facility] [id number] [address] [place] [id number] SP Mar, SP [facility] [address] [facility] [id number] [address] [place] [id number] SP Dec, SP IMMUNIZATIONS No Known Immunizations [...]
--- OUTSIDE RECORDS SUMMARY | 2019-06-14 01:48 | XMS REPORT ---
Author Author JALEN PEREZ POS Organization [facility] SP Address [address] [place] [address] SP Care Team Providers Care Assignment Desk Assistant Name Role Phone POS ANA JALEN Unavailable SP PROBLEMS Type Condition ICD9-CM Code MSC93-YS Code Onset Dates Condition S tatus SNOMED POS Problem Type 2 diabetes mellitus with hyperglycemia E11.65 Active POS Problem Obsessive-compulsive disorder, unspecified type F4 2.9 Active SP Problem Major depressive disorder, recurrent episode, moderate F33.1 Active SP Problem Falls frequently R29.6 Active 279 [id number] SP Problem Diabetes E11.9 Active [id number] SP Problem Type 2 diabetes mellitus with other diab etic neurological complication SP E11.49 Active 34722958 SP Problem History of pulmonary embolism Z86.711 Active 135919955 SP Problem retirement 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.4 Active [id number] SP Problem Type 2 diabetes mellitus with other diabetic kid allen complication SP Active 54626631 SP Problem Hyperlipidemia E78.5 Active 22057 004 SP Problem Insomnia G47.00 Active 533975806 SP Problem HTN (hypertension) I10 Active 3 0545351 SP Problem Chronic pain G89.29 Active 1648252 1 SP Problem CAD (coronary artery disease) I25.10 Active 06216262 SP Problem Degenerative disc disease, lumbar M51.36 Active 76737162 SP Problem Post-traumatic stress disorder F43.10 Active 22646254 SP ALLERGIES No Information ENCOUNTERS Encounter Location Date Diagnosis POS [facility] [address] [facility] [id number] [address] [place] [phone] SP Jan, SP [facility] [address] [facility] [id number] [address] [place] [phone] SP Jan, SP [facility] [address] [facility] [id number] [address] [place] [phone] SP Dec, SP [facility] [address] [facility] [id number] [address] [place] [address] SP November, SP [facility] [address] [facility] [id number] [address] [place] [address] SP November, Diabetes E11.9 ; CAD ([place] ry artery disease) I25.10 ; Atypical SP pain R07.89 ; Type 2 diabetes mellitus with hyperglycemia E11.65 ; 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.29 ; retirement 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.4 and Chronic pain G89.29 [facility] [address] [facility] [id number] [address] [place] [phone] SP Oct, SP [facility] [address] [facility] [id number] [address] [place] [phone] SP Oct, Chronic pain G89.29 SP [facility] [address] [facility] [id number] [address] [place] [address] SP Sep, Diabetes E11.9 SP [facility] [address] [facility] [id number] [address] [place] [phone] SP Sep, Chronic pain G89.29 SP [facility] [address] [facility] [id number] [address] [place] [phone] SP Sep, SP [facility] [address] [facility] [id number] [address] [place] [address] SP Sep, Falls frequently R29.6 ; Elier g term 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.4 SP Type 2 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 E11.49 [facility] [address] [facility] [id number] [address] [place] [address] SP Sep, SP [facility] [address] [facility] [id number] [address] [place] [phone] SP Sep, Diabetes E11.9 [facility] [address] [facility] [id number] [address] [place] [address] SP Aug, SP [facility] [address] [facility] [id number] [address] [place] [address] SP Aug, Chronic pain G89.29 SP [facility] [address] [facility] [id number] [address] [place] [address] SP Aug, SP [facility] [address] [facility] [id number] [address] [place] [phone] SP Aug, Chronic pain G89.29 SP [facility] [address] [facility] [id number] [address] [place] [phone] SP Jul, SP [facility] [address] [facility] [id number] [address] [place] [phone] SP Jul, Diabetes E11.9 and Type 2 di abetes mellitus with other diabetic SP complication E11.29 [facility] [address] [facility] [id number] [address] [place] [address] SP Jul, Type 2 diabetes mellitus wit h other diabetic kidney complication SP [facility] [address] [facility] [id number] [address] [place] [address] SP Jul, SP [facility] [address] [facility] [id number] [address] [place] [address] SP Jul, Chronic pain G89.29 SP [facility] [address] [facility] [id number] [address] [place] [address] SP Jun, Diabetes E11.9 SP [facility] [address] [facility] [id number] [address] [place] [address] SP Jun, Chronic pain G89.29 SP [facility] [address] [facility] [id number] [address] [place] [address] SP Jun, Diabetes E11.9 ; Atypical ch est pain R07.89 ; retirement current SP of insulin Z79.4 ; 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.29 ; Type 2 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 E11.49 ; History of pulmonary embolism Z86.711 and History of CVA (cerebrovascular accident) Z86.73 [facility] [address] [id number] [address] [place] [address] SP May, SP [facility] [address] [facility] [id number] [address] [place] [address] SP May, Chronic pain G89.29 SP [facility] [address] [facility] [id number] [address] [place] [address] SP Apr, Chronic pain G89.29 SP [facility] [address] [facility] [id number] [address] [place] [address] SP Apr, SP [facility] [address] [facility] [id number] [address] [place] [address] SP Mar, Chronic pain G89.29 SP [facility] [address] [facility] [id number] [address] [place] [address] SP Mar, Diabetes E11.9 SP [facility] [address] [facility] [id number] [address] [place] [address] SP Mar, SP [facility] [address] [facility] [id number] [address] [place] [phone] SP Mar, Degenerative disc disease, l umbar M51.36 SP [facility] [address] [facility] [id number] [address] [place] [address] SP Feb, Diabetes E11.9 SP [facility] [address] [facility] [id number] [address] [place] [address] SP Feb, Diabetes E11.9 SP [facility] [address] [facility] [id number] [address] [place] [address] SP Feb, Diabetes E11.9 ; HTN (hypert ension) I10 ; Diabetic neuropathy SP and Leg cramps R25.2 [facility] [address] [facility] [id number] [address] [place] [address] SP 15 Feb, 2017 Sprain of calcaneofibular li gament of right ankle, subsequent SP S93.411D ; Major depressive disorder, recurrent episode, moderate F33.1 ; Diabetes E11.9 ; Hyperlipidemia E78.5 ; Post-traumatic stress disorder F43.10 and Other irritable bowel syndrome K58.[address] [place] [address] [facility] [id number] [address] [place] [phone] SP Feb, Major depressive disorder, r ecurrent episode, moderate F33.1 ; SPtraumatic stress disorder F43.10 and Obsessive-compulsive disorder, unspecified type F42.9 [place] [address] [facility] [id number] [address] [place] [address] SP Feb, SP [place] [address] [facility] [id number] [address] [place] [address] SP Feb, Post-traumatic stress disord er F43.10 and Major depressive SP recurrent, moderate F33.1 [place] [address] [facility] [id number] [address] [place] [address] SP Feb, Diabetes E11.9 SP [place] [address] [facility] [id number] [address] [place] [address] SP Feb, Degenerative disc disease, l umbar M51.36 SP [place] [address] [facility] [id number] [address] [place] [address] SP Feb, Post-traumatic stress disord er F43.10 and Major depressive SP recurrent, moderate F33.1 [place] [address] [facility] [id number] [address] [place] [address] SP Feb, SP [place] [address] [facility] [id number] [address] [place] [address] SP Feb, Diabetes E11.9 SP [place] [address] [facility] [id number] [address] [place] [address] SP Jan, Diabetes E11.9 SP [place] [address] [facility] [id number] [address] [place] [phone] SP Jan, Post-traumatic stress disord er F43.10 and Major depressive SP recurrent, moderate F33.1 [facility] [address] [id number] [address] [place] [address] SP Jan, Diabetes E11.9 SP [facility] [address] [id number] [address] [place] [address] SP Jan, Diabetes E11.9 SP [facility] [address] [id number] [address] [place] [phone] SP Jan, SP [facility] [address] [facility] [id number] [address] [place] [address] SP Jan, SP [facility] [address] [facility] [id number] [address] [place] [address] SP Jan, Post-traumatic stress disord er F43.10 and Major depressive SP recurrent, moderate F33.1 [facility] [address] [facility] [id number] [address] [place] [address] SP Jan, SP [facility] [address] [id number] [address] [place] [address] SP Jan, Major depressive disorder, r ecurrent episode, moderate F33.1 ; SPtraumatic stress disorder F43.10 and Obsessive-compulsive disorder, unspecified type F42.9 [facility] [address] [facility] [id number] [address] [place] [phone] SP Jan, SP [facility] [address] [facility] [id number] [address] [place] [address] SP Jan, Diabetes E11.9 SP [facility] [address] [id number] [address] [place] [address] SP Jan, SP [facility] [address] [facility] [id number] [address] [place] [address] SP Jan, Sprain of calcaneofibular li gament of right ankle, subsequent SP S93.411D [facility] [address] [facility] [id number] [address] [place] [phone] SP Jan, Post-traumatic stress disord er F43.10 and Major depressive SP recurrent, moderate F33.1 [facility] [address] [id number] [address] [place] [address] SP Jan, Diabetes E11.9 SP [facility] [address] [id number] [address] [place] [address] SP 16 Dec, 2016 Major depressive disorder, r ecurrent episode, moderate F33.1 ; SPtraumatic stress disorder F43.10 and Obsessive-compulsive disorder, unspecified type F42.9 [facility] [address] [id number] [address] [place] [address] SP 15 Dec, 2016 SP [place] [id number] [facility] [id number] [address] [place] [address] SP Dec, Sprain of calcaneofibular li gament of right ankle, subsequent SP S93.411D [place] [address] [id number] [address] [place] [address] SP Dec, Post-traumatic stress disord er F43.10 and Major depressive SP recurrent, moderate F33.1 [place] [id number] [id number] [address] [place] [address] SP Dec, Sprain of calcaneofibular li gament of right ankle, subsequent SP S93.411D [place] [address] [id number] [address] [place] [address] SP Dec, Hyperlipidemia E78.5 SP [facility] [address] [id number] [address] [place] [address] SP Dec, SP [facility] [address] [facility] [id number] [address] [place] [address] SP Dec, Diabetes E11.9 ; Diabetic ne uropathy E11.40 ; Degenerative disc SP lumbar M51.36 ; Hyperlipidemia E78.5 ; Insomnia G47.00 ; CAD (coronary artery disease) I25.10 ; Major depressive disorder, recurrent, moderate F33.1 ; Post- traumatic stress disorder F43.10 and Other irritable bowel syndrome K58.8 [facility] [address] [facility] [id number] [address] [place] [address] SP November, Diabetic neuropathy E11.40 a nd Hyperlipidemia E78.5 SP [place] [address] [facility] [id number] [address] [place] [address] SP November, Degenerative disc disease, l umbar M51.36 SP [place] [address] [facility] [id number] [address] [place] [address] SP Oct, [place] [address] [facility] [id number] [place] [address] SP Oct, Degenerative disc disease, l umbar M51.36 SP [place] [address] [place] [id number] [place] [address] SP Sep, Degenerative disc disease, l umbar M51.36 and HTN (hypertension) SP [place] [address] [address] SP Sep, Diabetic neuropathy E11.40 ; HTN (hypertension) I10 ; SP disc disease, lumbar M51.36 ; Hyperlipidemia E78.5 ; Insomnia G47.00 ; CAD (coronary artery disease) I25.10 and Diabetes E11.9 [place] [address] [address] SP Aug, SP [place] [address] [place] [id number] [place] [address] SP Aug, Type 2 diabetes mellitus wit h hyperglycemia E11.65 SP [place] [address] [place] [id number] [address] [place] [address] SP Aug, [place] [address] [place] [id number] [place] [address] SP Jul, [place] [address] [place] [id number] [place] [address] SP Jul, SP [facility] [address] [facility] [id number] [address] [place] [address] SP Jun, SP [facility] [address] [facility] [id number] [address] [place] [address] SP Jun, SP [facility] [address] [facility] [id number] [address] [place] [address] SP Jun, SP [facility] [address] [facility] [id number] [address] [place] [address] SP Jun, SP [facility] [address] [facility] [id number] [address] [place] [address] SP May, Major depressive disorder, r ecurrent episode, moderate F33.1 and SPtraumatic stress disorder F43.10 [facility] [address] [facility] [id number] [address] [place] [address] SP May, Major depressive disorder, r ecurrent episode, moderate F33.1 and SPtraumatic stress disorder F43.10 [facility] [address] [facility] [id number] [address] [place] [address] SP May, Diabetes E11.9 ; Diabetic ne uropathy E11.40 ; HTN (hypertension) SP ; Gastritis K29.70 ; Hyperlipidemia E78.5 ; Insomnia G47.00 and Major depressive disorder, recurrent, moderate F33.1 [facility] [address] [facility] [id number] [address] [place] [address] SP May, Major depressive disorder, r ecurrent episode, moderate F33.1 SP [facility] [address] [facility] [id number] [address] [place] [address] SP Apr, SP [facility] [address] [facility] [id number] [address] [place] [address] SP Apr, Major depressive disorder, r ecurrent episode, moderate F33.1 and SPtraumatic stress disorder F43.10 [facility] [address] [facility] [id number] [address] [place] [address] SP Apr, Diabetes E11.9 ; Diabetic ne uropathy E11.40 ; Degenerative disc SP lumbar M51.36 ; HTN (hypertension) I10 ; Hyperlipidemia E78.5 ; Chronic pain G89.29 ; CAD (coronary artery disease) I25.10 and Major depressive disorder, recurrent, moderate F33.1 [place] [address] [facility] [id number] [address] [place] [address] SP Apr, Major depressive disorder, r ecurrent episode, moderate F33.1 and SPtraumatic stress disorder F43.10 [place] [address] [facility] [id number] [address] [place] [address] SP Apr, Major depressive disorder, r ecurrent episode, moderate F33.1 and SPtraumatic stress disorder F43.10 [place] [address] [facility] [id number] [address] [place] [address] SP Apr, Major depressive disorder, r ecurrent episode, moderate F33.1 and SP episodic mood disorder F39 [place] [address] [facility] [id number] [address] [place] [address] SP Apr, Chronic pain G89.29 ; Diabet ic neuropathy E11.40 ; HTN SP I10 ; Insomnia G47.00 ; CAD (coronary artery disease) I25.10 ; Hyperlipidemia E78.5 ; Degenerative disc disease, lumbar M51.36 ; Diabetes E11.9 and Gastritis K29.[address] [place] [address] [facility] [id number] [address] [place] [address] SP Sep, SP [place] [address] [facility] [id number] [address] [place] [address] SP Aug, SP [place] [address] [facility] [id number] [address] [place] [address] SP Jul, Major depressive disorder, r ecurrent episode, moderate F33.1 SP [place] [address] [facility] [id number] [address] [place] [phone] SP Jul, Unspecified episodic mood di sorder F39 SP [facility] [address] [facility] [id number] [address] [place] [address] SP Jul, SP [facility] [address] [facility] [id number] [place] [phone] SP Jul, SP [facility] [address] [facility] [id number] [address] [place] [address] SP Jul, SP [facility] [address] [place] [id number] [place] [address] SP Jul, Type 2 diabetes mellitus wit h hyperglycemia E11.65 ; Diabetic SP E11.40 ; Degenerative disc disease, lumbar M51.36 ; HTN (hypertension) I10 ; Gastritis K29.70 ; Hyperlipidemia E78.5 and CAD (coronary artery disease) I25.10 [place] [address] [place] [id number] [place] [address] SP Jul, Severe episode of recurrent major depressive disorder, without SP features F33.2 [facility] [address] [place] [id number] [place] [phone] SP Jul, SP [facility] [address] [place] [id number] [place] [address] SP Jun, SP [facility] [address] [place] [id number] [place] [address] SP Jun, Diabetes E11.9 ; Diabetic ne uropathy E11.40 ; Degenerative disc SP lumbar M51.36 ; HTN (hypertension) I10 ; Gastritis K29.70 ; Hyperlipidemia E78.5 ; Unspecified episodic mood disorder F39 ; Depression F32.9 and CAD (coronary artery disease) I25.10 [facility] [address] [facility] [id number] [place] [address] SP Jun, SP [facility] [address] [facility] [id number] [address] [place] [address] SP Jun, SP [facility] [address] [place] [id number] [place] [address] SP Jun, Diabetes E11.9 ; Diabetic ne uropathy E11.40 ; Degenerative disc SP lumbar M51.36 ; HTN (hypertension) I10 ; Gastritis K29.70 ; Chronic pain G89.29 ; Insomnia G47.00 and Unspecified episodic mood disorder F39 [facility] [address] [facility] [id number] [address] [place] [address] SP May, Diabetic neuropathy E11.40 ; Degenerative disc disease, lumbar SP ; HTN (hypertension) I10 ; Gastritis K29.70 ; Hyperlipidemia E78.5 ; Chronic pain G89.29 ; Insomnia G47.00 ; Unspecified episodic mood disorder F39 ; Diabetes E11.9 ; CAD (coronary artery disease) I25.10 and H/O Gram positive sepsis Z86.19 [facility] [address] [facility] [id number] [address] [place] [phone] SP May, SP [facility] [address] [facility] [id number] [place] [phone] SP May, SP [facility] [address] [facility] [id number] [address] [place] [address] SP May, SP [facility] [address] [facility] [id number] [address] [place] [address] SP May, SP [facility] [address] [facility] [id number] [address] [place] [address] SP May, UTI (urinary tract infection ) N39.0 ; Diabetes E11.9 ; Diabetic SP E11.40 ; Hyperlipidemia E78.5 and Chronic pain G89.29 [facility] [address] [facility] [id number] [address] [place] [address] SP May, Insomnia, unspecified G47.00 and Chronic pain G89.29 SP [facility] [address] [facility] [id number] [address] [place] [address] SP May, SP [facility] [address] [facility] [id number] [address] [place] [address] SP May, SP [facility] [address] [place] [id number] [place] [address] SP May, SP [facility] [address] [address] SP Apr, Insomnia, unspecified G47.00 ; Chronic pain G89.29 and SP episodic mood disorder F39 [facility] [address] [place] [id number] [place] [address] SP Apr, Unspecified episodic mood di sorder F39 SP [facility] [address] [facility] [id number] [place] [phone] SP Apr, Major depression F32.9 SP [place] [address] [place] [id number] [place] [address] SP Apr, SP [facility] [address] [place] [id number] [place] [address] SP Apr, Diabetes E11.9 ; Diabetic ne uropathy E11.40 ; Degenerative disc SP lumbar M51.36 ; HTN (hypertension) I10 ; Gastritis K29.70 ; Hyperlipidemia E78.5 ; Chronic pain G89.29 and Insomnia G47.00 [place] [address] [address] SP Mar, SP [facility] [address] [id number] SP Mar, SP [facility] [address] [id number] SP Mar, SP [facility] [address] [place] [id number] [place] [id number] SP Mar, Diabetes mellitus 250.00 ; D iabetic neuropathy 250.60 ; CAD SP artery disease) 414.00 ; Degenerative disc disease, lumbar 722.52 ; Gastritis 535.50 and Insomnia 780.52 [place] [address] [place] [id number] [place] [id number] SP Mar, Diabetes mellitus 250.00 ; D egenerative disc disease, lumbar SP ; Essential hypertension 401.9 ; Gastritis 535.50 and Chronic pain 338.29 [facility] [address] [id number] SP Feb, SP [facility] [address] [place] [id number] [place] [id number] SP Feb, SP [facility] [address] [id number] SP Jan, SP [facility] [address] [place] [id number] [place] [phone] SP Jan, Diabetes mellitus 250.00 ; D iabetic neuropathy 250.60 ; SP disc disease, lumbar 722.52 ; CAD (coronary artery disease) 414.00 ; Essential hypertension 401.9 ; Gastritis 535.50 ; Hyperlipidemia 272.4 and Distal end of ulna fracture, closed 813.43 [facility] [address] [id number] SP Dec, Wrist pain 719.43 and Diabet es mellitus 250.00 [place] [id number] [id number] SP May, SP [facility] [address] [place] [id number] [place] [id number] SP Dec, SP [facility] [address] [id number] SP November, SP [facility] [address] [place] [id number] [address] [place] [id number] SP Oct, SP [facility] [address] [address] SP Sep, SP [facility] [id number] [place] [id number] SP Sep, SP [facility] [address] [id number] SP Jun, SP [facility] [address] [id number] [address] [place] [address], [place] [address] SP Jun, SP [facility] [address] [id number] [address] [place] [id number] SP 14 Jun, 2009 SP [facility] [address] [id number] [address] [place] [id number] SP Jun, SP [facility] [address] [id number] [address] [place] [phone] SP Jun, SP [facility] [address] [id number] [address] [place] [id number] SP Jun, SP [facility] [address] [id number] [address] [place] [phone] SP Jun, SP [facility] [address] [id number] [address] [place] [phone] SP May, SP [facility] [address] [id number] [address] [place] [id number] SP May, SP [facility] [address] [id number] [address] [place] [id number] SP May, SP [facility] [address] [id number] [address] [place] [id number] SP May, SP [facility] [address] [id number] [address] [place] [phone] SP 28 Apr, 2009 SP [facility] [address] [id number] [address] [place] [address], [place] [address] SP 19 Apr, 2009 SP [facility] [address] [id number] [address] [place] [id number] SP 12 Apr, 2009 SP [facility] [address] [id number] [address] [place] [id number] SP 16 Mar, 2009 SP [facility] [address] [id number] [address] [place] [address] SP Dec, SP IMMUNIZATIONS No Known Immunizations SOCIAL HISTORY Never Assessed REASON FOR VISIT Controlled Med Refill PLAN OF CARE VITAL SIGNS MEDICATIONS Medication Instructions Dosage Frequency Start Date End Date Duration S tatus POS Hydrocodone-Acetaminophen 10-325 MG Orally 3 times a day 1 tablet a s needed 8h SP Jun, 2017 28 days Active SP RESULTS No [...]
--- OUTSIDE RECORDS SUMMARY | 2019-06-14 01:49 | XMS REPORT ---
Author Author HARITHA GARNER POS Organization [facility] [place] SP Address [address] [place] [address] SP Care Team Providers Care Min[employer] Insulation Supervisor Name Role Phone POS HARITHA GARNER Unavailable SP PROBLEMS Type Condition ICD9-CM Code VLD75-KR Code Onset Dates Condition S tatus SNOMED POS Problem Type 2 diabetes mellitus with hyperglycemia E11.65 Active POS Problem Obsessive-compulsive disorder, unspecified type F4 2.9 Active SP Problem Major depressive disorder, recurrent episode, moderate F33.1 Active SP Problem Falls frequently R29.6 Active 279 [id number] SP Problem Diabetes E11.9 Active [id number] SP Problem Type 2 diabetes mellitus with other diab etic neurological complication SP E11.49 Active 53188513 SP Problem History of pulmonary embolism Z86.711 Active 090710473 SP Problem 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.4 Active [id number] SP Problem Type 2 diabetes mellitus with other diabetic kid allen complication SP Active 20553345 SP Problem Hyperlipidemia E78.5 Active 77622 004 SP Problem Insomnia G47.00 Active 922749555 SP Problem HTN (hypertension) I10 Active 3 0789457 SP Problem Chronic pain G89.29 Active 1704816 1 SP Problem CAD (coronary artery disease) I25.10 Active 52407649 SP Problem Degenerative disc disease, lumbar M51.36 Active 25306637 SP Problem Post-traumatic stress disorder F43.10 Active 69902851 SP ALLERGIES No Information ENCOUNTERS Encounter Location Date Diagnosis POS [facility] [place] [address] [facility] [id number] [address] [place] [phone] SP Dec, SP [facility] [place] [address] [facility] [id number] [address] [place] [phone] SP November, Diabetes E11.9 ; CAD (trinidad ry artery disease) I25.10 ; Atypical SP pain R07.89 ; Type 2 diabetes mellitus with hyperglycemia E11.65 ; 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.29 ; halfway 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.4 and Chronic pain G89.29 [facility] [place] [address] [facility] [id number] [address] [place] [phone] SP Oct, SP [facility] [place] [address] [facility] [id number] [address] [place] [phone] SP Oct, Chronic pain G89.29 SP [facility] [place] [address] [facility] [id number] [address] [place] [phone] SP Sep, Diabetes E11.9 SP [facility] [place] [address] [facility] [id number] [address] [place] [phone] SP Sep, Chronic pain G89.29 SP [facility] [place] [address] [place] [id number] [address] [place] [phone] SP Sep, SP [facility] [place] [address] [facility] [id number] [address] [place] [phone] SP Sep, Falls frequently R29.6 ; Elier g term 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.4 SP Type 2 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 E11.49 [facility] [place] [address] [facility] [id number] [address] [place] [phone] SP Sep, SP [facility] [place] [address] [facility] [id number] [address] [place] [phone] SP Sep, Diabetes E11.9 SP [facility] [place] [address] [facility] [id number] [address] [place] [phone] SP Aug, SP [facility] [place] [address] [facility] [id number] [address] [place] [phone] SP Aug, Chronic pain G89.29 SP [facility] [place] [address] [facility] [id number] [address] [place] [phone] SP Aug, SP [facility] [place] [address] [facility] [id number] [address] [place] [phone] SP Aug, Chronic pain G89.29 SP [facility] [place] [address] [facility] [id number] [address] [place] [phone] SP Jul, SP [facility] [place] [address] [facility] [id number] [address] [place] [phone] SP Jul, Diabetes E11.9 and Type 2 di abetes mellitus with other diabetic SP complication E11.29 [facility] [place] [address] [facility] [id number] [address] [place] [phone] SP Jul, Type 2 diabetes mellitus wit h other diabetic kidney complication SP [facility] [place] [address] [facility] [id number] [address] [place] [phone] SP Jul, SP [facility] [place] [address] [facility] [id number] [address] [place] [phone] SP Jul, Chronic pain G89.29 SP [facility] [place] [address] [facility] [id number] [address] [place] [phone] SP Jun, Diabetes E11.9 SP [facility] [place] [address] [facility] [id number] [address] [place] [phone] SP Jun, Chronic pain G89.29 SP [facility] [place] [address] [facility] [id number] [address] [place] [phone] SP Jun, Diabetes E11.9 ; Atypical ch est pain R07.89 ; supervisor 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s current SP of insulin Z79.4 ; 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.29 ; Type 2 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 E11.49 ; History of pulmonary embolism Z86.711 and History of CVA (cerebrovascular accident) Z86.73 [facility] [place] [address] [facility] [id number] [address] [place] [phone] SP May, SP [facility] [place] [address] [facility] [id number] [address] [place] [phone] SP May, Chronic pain G89.29 SP [facility] [place] [address] [facility] [id number] [address] [place] [phone] SP Apr, Chronic pain G89.29 SP [place] [address] [facility] [id number] [address] [place] [phone] SP Apr, SP [place] [address] [facility] [id number] [address] [place] [phone] SP Mar, Chronic pain G89.29 SP [place] [address] [facility] [id number] [address] [place] [phone] SP 18 Mar, 2017 Diabetes E11.9 SP [place] [address] [facility] [id number] [address] [place] [phone] SP 07 Mar, 2017 SP [place] [address] [facility] [id number] [address] [place] [phone] SP Mar, Degenerative disc disease, l umbar M51.36 SP [place] [address] [facility] [id number] [address] [place] [phone] SP Feb, Diabetes E11.9 SP [place] [address] [facility] [id number] [address] [place] [phone] SP 23 Feb, 2017 Diabetes E11.9 SP [place] [address] [facility] [id number] [address] [place] [phone] SP 16 Feb, 2017 Diabetes E11.9 ; HTN (hypert ension) I10 ; Diabetic neuropathy SP and Leg cramps R25.2 [place] [address] [facility] [id number] [address] [place] [phone] SP 15 Feb, 2017 Sprain of calcaneofibular li gament of right ankle, subsequent SP S93.411D ; Major depressive disorder, recurrent episode, moderate F33.1 ; Diabetes E11.9 ; Hyperlipidemia E78.5 ; Post-traumatic stress disorder F43.10 and Other irritable bowel syndrome K58.8 [place] [address] [facility] [id number] [address] [place] [phone] SP 14 Feb, 2017 Major depressive disorder, r ecurrent episode, moderate F33.1 ; SPtraumatic stress disorder F43.10 and Obsessive-compulsive disorder, unspecified type F42.9 [facility] [place] [address] [id number] [address] [place] [phone] SP Feb, SP [facility] [place] [address] [facility] [id number] [address] [place] [phone] SP Feb, Post-traumatic stress disord er F43.10 and Major depressive SP recurrent, moderate F33.1 [facility] [place] [address] [id number] [address] [place] [phone] SP Feb, Diabetes E11.9 SP [facility] [place] [address] [id number] [address] [place] [phone] SP Feb, Degenerative disc disease, l umbar M51.36 SP [facility] [place] [address] [facility] [id number] [address] [place] [phone] SP Feb, Post-traumatic stress disord er F43.10 and Major depressive SP recurrent, moderate F33.1 [facility] [place] [address] [id number] [address] [place] [phone] SP Feb, SP [facility] [place] [address] [id number] [address] [place] [phone] SP Feb, Diabetes E11.9 SP [facility] [place] [address] [facility] [id number] [address] [place] [phone] SP Jan, Diabetes E11.9 SP [facility] [place] [address] [id number] [address] [place] [phone] SP Jan, Post-traumatic stress disord er F43.10 and Major depressive SP recurrent, moderate F33.1 [facility] [place] [address] [id number] [address] [place] [phone] SP Jan, Diabetes E11.9 SP [facility] [place] [address] [facility] [id number] [address] [place] [phone] SP Jan, Diabetes E11.9 SP [facility] [place] [address] [facility] [id number] [address] [place] [phone] SP Jan, SP [facility] [place] [address] [id number] [address] [place] [phone] SP Jan, SP [facility] [place] [address] [facility] [id number] [address] [place] [phone] SP Jan, Post-traumatic stress disord er F43.10 and Major depressive SP recurrent, moderate F33.1 [facility] [place] [address] [id number] [address] [place] [phone] SP Jan, SP [facility] [place] [address] [id number] [address] [place] [phone] SP Jan, Major depressive disorder, r ecurrent episode, moderate F33.1 ; SPtraumatic stress disorder F43.10 and Obsessive-compulsive disorder, unspecified type F42.9 [facility] [place] [address] [id number] [address] [place] [phone] SP Jan, SP [facility] [place] [address] [id number] [address] [place] [phone] SP Jan, Diabetes E11.9 SP [facility] [place] [address] [id number] [address] [place] [phone] SP Jan, SP [facility] [place] [address] [id number] [address] [place] [phone] SP Jan, Sprain of calcaneofibular li gament of right ankle, subsequent SP S93.411D [facility] [place] [address] [id number] [address] [place] [phone] SP Jan, Post-traumatic stress disord er F43.10 and Major depressive SP recurrent, moderate F33.1 [facility] [place] [address] [id number] [address] [place] [phone] SP Jan, Diabetes E11.9 SP [facility] [place] [address] [id number] [address] [place] [phone] SP Dec, Major depressive disorder, r ecurrent episode, moderate F33.1 ; SPtraumatic stress disorder F43.10 and Obsessive-compulsive disorder, unspecified type F42.9 [place] [address] [id number] [address] [place] [phone] SP 15 Dec, 2016 SP [place] [address] [id number] [address] [place] [phone] SP 14 Dec, 2016 Sprain of calcaneofibular li gament of right ankle, subsequent SP S93.411D [place] [address] [id number] [address] [place] [phone] SP 13 Dec, 2016 Post-traumatic stress disord er F43.10 and Major depressive SP recurrent, moderate F33.1 [place] [address] [id number] [address] [place] [phone] SP 13 Dec, 2016 Sprain of calcaneofibular li gament of right ankle, subsequent SP S93.411D [place] [address] [id number] [address] [place] [phone] SP 12 Dec, 2016 Hyperlipidemia E78.5 SP [place] [address] [id number] [address] [place] [phone] SP Dec, SP [place] [address] [facility] [id number] [address] [place] [phone] SP Dec, Diabetes E11.9 ; Diabetic ne uropathy E11.40 ; Degenerative disc SP lumbar M51.36 ; Hyperlipidemia E78.5 ; Insomnia G47.00 ; CAD (coronary artery disease) I25.10 ; Major depressive disorder, recurrent, moderate F33.1 ; Post- traumatic stress disorder F43.10 and Other irritable bowel syndrome K58.8 [place] [address] [facility] [id number] [address] [place] [phone] SP November, Diabetic neuropathy E11.40 a nd Hyperlipidemia E78.5 SP [place] [address] [facility] [id number] [address] [place] [phone] SP November, Degenerative disc disease, l umbar M51.36 SP [facility] [place] [address] [facility] [id number] [address] [place] [phone] SP Oct, SP [facility] [place] [address] [facility] [id number] [address] [place] [phone] SP Oct, Degenerative disc disease, l umbar M51.36 SP [facility] [place] [address] [facility] [id number] [address] [place] [phone] SP Sep, Degenerative disc disease, l umbar M51.36 and HTN (hypertension) SP [facility] [place] [address] [facility] [id number] [address] [place] [phone] SP Sep, Diabetic neuropathy E11.40 ; HTN (hypertension) I10 ; SP disc disease, lumbar M51.36 ; Hyperlipidemia E78.5 ; Insomnia G47.00 ; CAD (coronary artery disease) I25.10 and Diabetes E11.9 [facility] [place] [address] [facility] [id number] [address] [place] [phone] SP Aug, SP [facility] [place] [address] [facility] [id number] [address] [place] [phone] SP Aug, Type 2 diabetes mellitus wit h hyperglycemia E11.65 SP [facility] [place] [address] [facility] [id number] [address] [place] [phone] SP Aug, [facility] [address] [facility] [id number] [address] [place] [phone] SP Jul, SP [facility] [place] [address] [facility] [id number] [address] [place] [phone] SP Jul, SP [facility] [place] [address] [facility] [id number] [address] [place] [phone] SP Jun, SP [facility] [place] [address] [facility] [id number] [address] [place] [phone] SP Jun, SP [facility] [place] [address] [facility] [id number] [address] [place] [phone] SP Jun, SP [place] [address] [facility] [id number] [address] [place] [phone] SP Jun, SP [place] [address] [facility] [id number] [address] [place] [phone] SP May, Major depressive disorder, r ecurrent episode, moderate F33.1 and SPtraumatic stress disorder F43.10 [place] [address] [place] [id number] [address] [place] [phone] SP May, Major depressive disorder, r ecurrent episode, moderate F33.1 and SPtraumatic stress disorder F43.10 [place] [address] [facility] [id number] [address] [place] [phone] SP May, Diabetes E11.9 ; Diabetic ne uropathy E11.40 ; HTN (hypertension) SP ; Gastritis K29.70 ; Hyperlipidemia E78.5 ; Insomnia G47.00 and Major depressive disorder, recurrent, moderate F33.1 [place] [address] [facility] [id number] [address] [place] [phone] SP May, Major depressive disorder, r ecurrent episode, moderate F33.1 SP [place] [address] [facility] [id number] [address] [place] [phone] SP Apr, SP [place] [address] [facility] [id number] [address] [place] [phone] SP Apr, Major depressive disorder, r ecurrent episode, moderate F33.1 and SPtraumatic stress disorder F43.10 [place] [address] [facility] [id number] [address] [place] [phone] SP Apr, Diabetes E11.9 ; Diabetic ne uropathy E11.40 ; Degenerative disc SP lumbar M51.36 ; HTN (hypertension) I10 ; Hyperlipidemia E78.5 ; Chronic pain G89.29 ; CAD (coronary artery disease) I25.10 and Major depressive disorder, recurrent, moderate F33.1 [place] [address] [facility] [id number] [address] [place] [phone] SP Apr, Major depressive disorder, r ecurrent episode, moderate F33.1 and SPtraumatic stress disorder F43.10 [facility] [place] [address] [facility] [id number] [address] [place] [phone] SP Apr, Major depressive disorder, r ecurrent episode, moderate F33.1 and SPtraumatic stress disorder F43.10 [facility] [place] [address] [facility] [id number] [address] [place] [phone] SP Apr, Major depressive disorder, r ecurrent episode, moderate F33.1 and SP episodic mood disorder F39 [facility] [place] [address] [facility] [id number] [address] [place] [phone] SP Apr, Chronic pain G89.29 ; Diabet ic neuropathy E11.40 ; HTN SP I10 ; Insomnia G47.00 ; CAD (coronary artery disease) I25.10 ; Hyperlipidemia E78.5 ; Degenerative disc disease, lumbar M51.36 ; Diabetes E11.9 and Gastritis K29.70 [facility] [place] [address] [facility] [id number] [address] [place] [phone] SP Sep, SP [facility] [place] [address] [facility] [id number] [address] [place] [phone] SP Aug, SP [facility] [place] [address] [facility] [id number] [address] [place] [phone] SP Jul, Major depressive disorder, r ecurrent episode, moderate F33.1 SP [facility] [place] [address] [facility] [id number] [address] [place] [phone] SP Jul, Unspecified episodic mood di sorder F39 SP [facility] [place] [address] [facility] [id number] [address] [place] [phone] SP Jul, SP [facility] [place] [address] [facility] [id number] [address] [place] [phone] SP Jul, SP [facility] [place] [address] [facility] [id number] [address] [place] [phone] SP Jul, SP [facility] [place] [address] [facility] [id number] [address] [place] [phone] SP Jul, Type 2 diabetes mellitus wit h hyperglycemia E11.65 ; Diabetic SP E11.40 ; Degenerative disc disease, lumbar M51.36 ; HTN (hypertension) I10 ; Gastritis K29.70 ; Hyperlipidemia E78.5 and CAD (coronary artery disease) I25.10 [place] [address] [place] [id number] [place] [phone] SP Jul, Severe episode of recurrent major depressive disorder, without SP features F33.2 [place] [address] [place] [id number] [place] [phone] SP Jul, [place] [address] [place] [id number] [place] [phone] SP Jun, [place] [address] [place] [id number] [place] [phone] SP Jun, Diabetes E11.9 ; Diabetic ne uropathy E11.40 ; Degenerative disc SP lumbar M51.36 ; HTN (hypertension) I10 ; Gastritis K29.70 ; Hyperlipidemia E78.5 ; Unspecified episodic mood disorder F39 ; Depression F32.9 and CAD (coronary artery disease) I25.10 [place] [address] [place] [id number] [place], [place] [phone] SP Jun, SP [place] [address] [place] [id number] [place] [phone] SP Jun, SP [place] [address] [place] [id number] [place] [phone] SP Jun, Diabetes E11.9 ; Diabetic ne uropathy E11.40 ; Degenerative disc SP lumbar M51.36 ; HTN (hypertension) I10 ; Gastritis K29.70 ; Chronic pain G89.29 ; Insomnia G47.00 and Unspecified episodic mood disorder F39 [place] [address] [place] [id number] [place] [phone] SP May, Diabetic neuropathy E11.40 ; Degenerative disc disease, lumbar SP ; HTN (hypertension) I10 ; Gastritis K29.70 ; Hyperlipidemia E78.5 ; Chronic pain G89.29 ; Insomnia G47.00 ; Unspecified episodic mood disorder F39 ; Diabetes E11.9 ; CAD (coronary artery disease) I25.10 and H/O Gram positive sepsis Z86.19 [facility] [place] [address] [facility] [id number] [address] [place] [phone] SP May, SP [facility] [place] [address] [facility] [id number] [address] [place] [phone] SP May, SP [facility] [place] [address] [facility] [id number] [address] [place] [phone] SP May, SP [facility] [place] [address] [place] [id number] [place] [phone] SP May, SP [facility] [place] [address] [facility] [id number] [place] [phone] SP May, UTI (urinary tract infection ) N39.0 ; Diabetes E11.9 ; Diabetic SP E11.40 ; Hyperlipidemia E78.5 and Chronic pain G89.29 [place] [address] [facility] [id number] [address] [place] [phone] SP May, Insomnia, unspecified G47.00 and Chronic pain G89.29 SP [facility] [place] [address] [facility] [id number] [address] [place] [phone] SP May, SP [facility] [place] [address] [facility] [id number] [address] [place] [phone] SP May, SP [facility] [place] [address] [facility] [id number] [address] [place] [phone] SP May, SP [facility] [place] [address] [facility] [id number] [address] [place] [phone] SP Apr, Insomnia, unspecified G47.00 ; Chronic pain G89.29 and SP episodic mood disorder F39 [facility] [place] [address] [facility] [id number] [address] [place] [phone] SP Apr, Unspecified episodic mood di sorder F39 SP [facility] [place] [address] [phone] SP Apr, Major depression F32.9 SP [facility] [place] [address] [place] [id number] [address] [place] [phone] SP Apr, SP [facility] [place] [address] [phone] SP Apr, Diabetes E11.9 ; Diabetic ne uropathy E11.40 ; Degenerative disc SP lumbar M51.36 ; HTN (hypertension) I10 ; Gastritis K29.70 ; Hyperlipidemia E78.5 ; Chronic pain G89.29 and Insomnia G47.00 [place] [address] [phone] SP Mar, SP [place] [address] [phone] SP Mar, SP [facility] [place] [address] [place] [id number] [address] [place] [phone] SP Mar, [place] [address] [phone] SP Mar, Diabetes mellitus 250.00 ; D iabetic neuropathy 250.60 ; CAD SP artery disease) 414.00 ; Degenerative disc disease, lumbar 722.52 ; Gastritis 535.50 and Insomnia 780.52 [place] [address] [place] [id number] [address] [place] [phone] SP Mar, Diabetes mellitus 250.00 ; D egenerative disc disease, lumbar SP ; Essential hypertension 401.9 ; Gastritis 535.50 and Chronic pain 338.29 [place] [address] [place] [id number] [address] [place] [phone] SP Feb, SP [facility] [place] [address] [place] [id number] [address] [place] [phone] SP Feb, SP [place] [address] [facility] [id number] [address] [place] [phone] SP Jan, SP [facility] [place] [address] [facility] [id number] [address] [place] [phone] SP Jan, Diabetes mellitus 250.00 ; D iabetic neuropathy 250.60 ; SP disc disease, lumbar 722.52 ; CAD (coronary artery disease) 414.00 ; Essential hypertension 401.9 ; Gastritis 535.50 ; Hyperlipidemia 272.4 and Distal end of ulna fracture, closed 813.43 [facility] [place] [address] [facility] [id number] [address] [place] [phone] SP Dec, Wrist pain 719.43 and Diabet es mellitus 250.00 SP [facility] [place] [address] [facility] [id number] [address] [place] [phone] SP May, SP [facility] [place] [address] [facility] [id number] [place] [phone] SP Dec, SP [facility] [place] [address] [facility] [id number] [address] [place] [phone] SP November, SP [facility] [place] [address] [place] [id number] [place] [phone] SP Oct, SP [facility] [place] [address] [facility] [id number] [address] [place] [phone] SP Sep, SP [facility] [place] [address] [facility] [id number] [address] [place] [phone] SP Sep, SP [facility] [place] [address] [facility] [id number] [address] [place] [phone] SP Jun, SP [facility] [place] [address] [place] [id number] [address] [place] [phone] SP Jun, SP [facility] [place] [address] [facility] [id number] [address] [place] [phone] SP Jun, SP [facility] [place] [address] [place] [id number] [place] [phone] SP Jun, SP [facility] [place] [address] [id number] [address] [place] [phone] SP Jun, SP [facility] [place] [address] [id number] [address] [place] [phone] SP Jun, SP [facility] [place] [address] [id number] [address] [place] [phone] SP Jun, SP [facility] [place] [address] [id number] [address] [place] [phone] SP May, SP [facility] [place] [address] [id number] [address] [place] [phone] SP May, SP [facility] [place] [address] [id number] [address] [place] [phone] SP May, SP [facility] [place] [address] [id number] [address] [place] [phone] SP May, SP [facility] [place] [address] [id number] [address] [place] [phone] SP Apr, SP [facility] [place] [address] [id number] [address] [place] [phone] SP Apr, SP [facility] [place] [address] [id number] [address] [place] [phone] SP Apr, SP [facility] [place] [address] [id number] [address] [place] [phone] SP Mar, SP [facility] [place] [address] [id number] [address] [place] [phone] SP Dec, SP IMMUNIZATIONS No Known Immunizations SOCIAL HISTORY Never Assessed REASON FOR VISIT Hydrocodone- 05/18 PLAN OF CARE VITAL SIGNS MEDICATIONS Medication Instructions Dosage Frequency Start Date End Date Duration S tatus POS Hydrocodone-Acetaminophen 10-325 MG Orally 3 times a day 1 tablet a s needed 8h SP Apr, 2017 28 days Active SP RESULTS No [...]
--- OUTSIDE RECORDS SUMMARY | 2019-06-14 01:49 | XMS REPORT ---
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 Name Role Phone POS HARRY ALEXEI Unavailable SP PROBLEMS Type Condition ICD9-CM Code TJC43-UF Code Onset Dates Condition S tatus SNOMED POS Problem Post-traumatic stress disorder F43.10 Active [id number] POS Problem Obsessive-compulsive disorder, unspecified type F4 2.9 Active SP Problem Type 2 diabetes mellitus with hyperglycemia E11.65 Active SP Problem Falls frequently R29.6 Active 279 [id number] SP Problem History of pulmonary embolism Z86.711 Active 247970185 SP 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 [id number] SP Problem Major depressive disorder, recurrent episode, moderate F33.1 Active SP Problem Type 2 diabetes mellitus with other diabetic kid allen complication SP Active [id number] SP Problem Type 2 diabetes mellitus with other diab etic neurological complication SP E11.49 Active 71563643 SP Problem Chronic pain G89.29 Active 3584877 1 SP Problem Degenerative disc disease, lumbar M51.36 Active 20198302 SP Problem Insomnia G47.00 Active 206929063 SP Problem HTN (hypertension) I10 Active 3 2918508 SP Problem Hyperlipidemia E78.5 Active 20477 004 SP Problem CAD (coronary artery disease) I25.10 Active 33560383 SP ALLERGIES No Information ENCOUNTERS Encounter Location Date Diagnosis POS [facility] [address] [facility] [id number] [address] [place] [phone] SP Jan, SP [facility] [address] [facility] [id number] [address] [place] [phone] SP Jan, SP [facility] [address] [facility] [id number] [address] [place] [phone] SP Jan, SP [facility] [address] [facility] [id number] [address] [place] [phone] SP Jan, Type 2 diabetes mellitus wit h hyperglycemia E11.65 and SP vomiting with nausea, unspecified vomiting type R11.2 [facility] [address] [facility] [id number] [address] [place] [phone] SP Dec, CAD (coronary artery disease ) I25.10 and Atypical chest pain SP [facility] [address] [facility] [id number] [address] [place] [phone] SP Dec, SP [facility] [address] [facility] [id number] [address] [place] [phone] SP Dec, Diabetes E11.9 ; Type 2 diab etes mellitus with hyperglycemia SP and Intractable vomiting with nausea, unspecified vomiting type R11.2 [place] [address] [facility] [id number] [address] [place] [phone] SP Dec, Chronic pain G89.29 SP [place] [address] [facility] [id number] [address] [place] [phone] SP November, SP [place] [address] [facility] [id number] [address] [place] [phone] SP November, Diabetes E11.9 ; CAD (trinidad ry artery disease) I25.10 ; Atypical SP pain R07.89 ; Type 2 diabetes mellitus with hyperglycemia E11.65 ; 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.29 ; skilled nursing 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.4 and Chronic pain G89.29 [facility] [address] [facility] [id number] [address] [place] [phone] SP Oct, SP [place] [address] [address] [facility] [id number] [address] [place] [phone] SP Oct, Chronic pain G89.29 SP [place] [address] [facility] [id number] [address] [place] [phone] SP Sep, Diabetes E11.9 SP [place] [address] [facility] [id number] [address] [place] [phone] SP Sep, Chronic pain G89.29 SP [facility] [address] [facility] [id number] [address] [place] [phone] SP Sep, SP [facility] [address] [facility] [id number] [address] [place] [phone] SP Sep, Falls frequently R29.6 ; Elier g term 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.4 SP Type 2 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 E11.49 [facility] [address] [facility] [id number] [address] [place] [phone] SP Sep, SP [facility] [address] [facility] [id number] [address] [place] [phone] SP Sep, Diabetes E11.9 SP [facility] [address] [facility] [id number] [address] [place] [phone] SP Aug, SP [facility] [address] [facility] [id number] [address] [place] [phone] SP Aug, Chronic pain G89.29 SP [facility] [address] [facility] [id number] [address] [place] [phone] SP Aug, SP [facility] [address] [facility] [id number] [address] [place] [phone] SP Aug, Chronic pain G89.29 SP [facility] [address] [facility] [id number] [address] [place] [phone] SP Jul, SP [facility] [address] [facility] [id number] [address] [place] [phone] SP Jul, Diabetes E11.9 and Type 2 di abetes mellitus with other diabetic SP complication E11.29 [facility] [address] [facility] [id number] [address] [place] [phone] SP Jul, Type 2 diabetes mellitus wit h other diabetic kidney complication SP [facility] [address] [facility] [id number] [address] [place] [phone] SP Jul, SP [facility] [address] [facility] [id number] [address] [place] [phone] SP Jul, Chronic pain G89.29 SP [facility] [address] [facility] [id number] [address] [place] [phone] SP Jun, Diabetes E11.9 SP [facility] [address] [facility] [id number] [address] [place] [phone] SP Jun, Chronic pain G89.29 SP [facility] [address] [facility] [id number] [address] [place] [phone] SP Jun, Diabetes E11.9 ; Atypical ch est pain R07.89 ; skilled nursing current SP of insulin Z79.4 ; 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.29 ; Type 2 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 E11.49 ; History of pulmonary embolism Z86.711 and History of CVA (cerebrovascular accident) Z86.73 [facility] [address] [facility] [id number] [address] [place] [phone] SP May, SP [facility] [address] [facility] [id number] [address] [place] [phone] SP May, Chronic pain G89.29 SP [facility] [address] [facility] [id number] [address] [place] [phone] SP Apr, Chronic pain G89.29 SP [facility] [address] [facility] [id number] [address] [place] [phone] SP Apr, SP [facility] [address] [facility] [id number] [address] [place] [phone] SP Mar, Chronic pain G89.29 SP [facility] [address] [facility] [id number] [address] [place] [phone] SP Mar, Diabetes E11.9 SP [facility] [address] [facility] [id number] [address] [place] [phone] SP Mar, SP [facility] [address] [facility] [id number] [address] [place] [id number] SP Mar, Degenerative disc disease, l umbar M51.36 SP [place] [id number] [facility] [id number] [address] [place] [phone] SP Feb, Diabetes E11.9 SP [place] [address] [facility] [id number] [address] [place] [phone] SP Feb, Diabetes E11.9 SP [place] [address] [facility] [id number] [address] [place] [phone] SP Feb, Diabetes E11.9 ; HTN (hypert ension) I10 ; Diabetic neuropathy SP and Leg cramps R25.2 [place] [address] [facility] [id number] [address] [place] [phone] SP Feb, Sprain of calcaneofibular li gament of right ankle, subsequent SP S93.411D ; Major depressive disorder, recurrent episode, moderate F33.1 ; Diabetes E11.9 ; Hyperlipidemia E78.5 ; Post-traumatic stress disorder F43.10 and Other irritable bowel syndrome K58.8 [place] [address] [address] [facility] [id number] [address] [place] [phone] SP Feb, Major depressive disorder, r ecurrent episode, moderate F33.1 ; SPtraumatic stress disorder F43.10 and Obsessive-compulsive disorder, unspecified type F42.9 [place] [address] [facility] [id number] [address] [place] [phone] SP Feb, SP [place] [address] [facility] [id number] [address] [place] [phone] SP Feb, Post-traumatic stress disord er F43.10 and Major depressive SP recurrent, moderate F33.1 [place] [address] [facility] [id number] [address] [place] [phone] SP Feb, Diabetes E11.9 SP [place] [address] [facility] [id number] [address] [place] [phone] SP Feb, Degenerative disc disease, l umbar M51.36 SP [facility] [address] [id number] [address] [place] [phone] SP Feb, Post-traumatic stress disord er F43.10 and Major depressive SP recurrent, moderate F33.1 [facility] [address] [id number] [address] [place] [phone] SP Feb, SP [facility] [address] [id number] [address] [place] [phone] SP Feb, Diabetes E11.9 SP [facility] [address] [id number] [address] [place] [phone] SP Jan, Diabetes E11.9 SP [facility] [address] [id number] [address] [place] [phone] SP Jan, Post-traumatic stress disord er F43.10 and Major depressive SP recurrent, moderate F33.1 [facility] [address] [id number] [address] [place] [id number] SP Jan, Diabetes E11.9 SP [facility] [address] [id number] [address] [place] [phone] SP Jan, Diabetes E11.9 SP [facility] [address] [id number] [address] [place] [phone] SP Jan, SP [facility] [address] [id number] [address] [place] [phone] SP Jan, SP [facility] [address] [id number] [address] [place] [phone] SP Jan, Post-traumatic stress disord er F43.10 and Major depressive SP recurrent, moderate F33.1 [facility] [address] [id number] [address] [place] [phone] SP Jan, SP [facility] [address] [facility] [id number] [address] [place] [phone] SP Jan, Major depressive disorder, r ecurrent episode, moderate F33.1 ; SPtraumatic stress disorder F43.10 and Obsessive-compulsive disorder, unspecified type F42.9 [facility] [address] [id number] [address] [place] [phone] SP Jan, SP [facility] [address] [id number] [address] [place] [phone] SP Jan, Diabetes E11.9 SP [facility] [address] [id number] [address] [place] [phone] SP Jan, SP [facility] [address] [id number] [address] [place] [phone] SP Jan, Sprain of calcaneofibular li gament of right ankle, subsequent SP S93.411D [place] [id number] [id number] [address] [place] [phone] SP Jan, Post-traumatic stress disord er F43.10 and Major depressive SP recurrent, moderate F33.1 [facility] [address] [id number] [address] [place] [phone] SP Jan, Diabetes E11.9 SP [facility] [address] [id number] [address] [place] [phone] SP 16 Dec, 2016 Major depressive disorder, r ecurrent episode, moderate F33.1 ; SPtraumatic stress disorder F43.10 and Obsessive-compulsive disorder, unspecified type F42.9 [facility] [address] [id number] [address] [place] [phone] SP Dec, SP [facility] [address] [id number] [address] [place] [phone] SP Dec, Sprain of calcaneofibular li gament of right ankle, subsequent SP S93.411D [facility] [address] [id number] [address] [place] [phone] SP Dec, Post-traumatic stress disord er F43.10 and Major depressive SP recurrent, moderate F33.1 [facility] [address] [facility] [id number] [address] [place] [phone] SP Dec, Sprain of calcaneofibular li gament of right ankle, subsequent SP S93.411D [place] [address] [facility] [id number] [address] [place] [phone] SP Dec, Hyperlipidemia E78.5 SP [place] [address] [facility] [id number] [address] [place] [phone] SP Dec, SP [place] [address] [facility] [id number] [address] [place] [phone] SP Dec, Diabetes E11.9 ; Diabetic ne uropathy E11.40 ; Degenerative disc SP lumbar M51.36 ; Hyperlipidemia E78.5 ; Insomnia G47.00 ; CAD (coronary artery disease) I25.10 ; Major depressive disorder, recurrent, moderate F33.1 ; Post- traumatic stress disorder F43.10 and Other irritable bowel syndrome K58.8 [place] [address] [facility] [id number] [address] [place] [phone] SP November, Diabetic neuropathy E11.40 a nd Hyperlipidemia E78.5 SP [place] [address] [facility] [id number] [address] [place] [phone] SP November, Degenerative disc disease, l umbar M51.36 SP [place] [address] [facility] [id number] [address] [place] [phone] SP Oct, SP [place] [address] [facility] [id number] [address] [place] [phone] SP Oct, Degenerative disc disease, l umbar M51.36 SP [place] [address] [facility] [id number] [address] [place] [phone] SP Sep, Degenerative disc disease, l umbar M51.36 and HTN (hypertension) SP [place] [address] [facility] [id number] [address] [place] [phone] SP Sep, Diabetic neuropathy E11.40 ; HTN (hypertension) I10 ; SP disc disease, lumbar M51.36 ; Hyperlipidemia E78.5 ; Insomnia G47.00 ; CAD (coronary artery disease) I25.10 and Diabetes E11.9 [facility] [address] [facility] [id number] [address] [place] [phone] SP Aug, SP [facility] [address] [facility] [id number] [address] [place] [phone] SP Aug, Type 2 diabetes mellitus wit h hyperglycemia E11.65 SP [facility] [address] [facility] [id number] [address] [place] [phone] SP Aug, SP [facility] [address] [facility] [id number] [address] [place] [phone] SP Jul, SP [facility] [address] [facility] [id number] [address] [place] [phone] SP Jul, SP [facility] [address] [facility] [id number] [address] [place] [phone] SP Jun, SP [facility] [address] [facility] [id number] [address] [place] [phone] SP Jun, SP [facility] [address] [facility] [id number] [address] [place] [phone] SP Jun, SP [facility] [address] [facility] [id number] [address] [place] [phone] SP Jun, SP [facility] [address] [facility] [id number] [address] [place] [phone] SP May, Major depressive disorder, r ecurrent episode, moderate F33.1 and SPtraumatic stress disorder F43.10 [facility] [address] [facility] [id number] [address] [place] [phone] SP May, Major depressive disorder, r ecurrent episode, moderate F33.1 and SPtraumatic stress disorder F43.10 [facility] [address] [facility] [id number] [address] [place] [phone] SP May, Diabetes E11.9 ; Diabetic ne uropathy E11.40 ; HTN (hypertension) SP ; Gastritis K29.70 ; Hyperlipidemia E78.5 ; Insomnia G47.00 and Major depressive disorder, recurrent, moderate F33.1 [facility] [address] [facility] [id number] [place] [phone] SP May, Major depressive disorder, r ecurrent episode, moderate F33.1 SP [facility] [address] [place] [id number] [place] [phone] SP Apr, SP [place] [address] [place] [id number] [place] [phone] SP Apr, Major depressive disorder, r ecurrent episode, moderate F33.1 and SPtraumatic stress disorder F43.10 [place] [address] [phone] SP Apr, Diabetes E11.9 ; Diabetic ne uropathy E11.40 ; Degenerative disc SP lumbar M51.36 ; HTN (hypertension) I10 ; Hyperlipidemia E78.5 ; Chronic pain G89.29 ; CAD (coronary artery disease) I25.10 and Major depressive disorder, recurrent, moderate F33.1 [place] [address] [place] [id number] [place] [phone] SP Apr, Major depressive disorder, r ecurrent episode, moderate F33.1 and SPtraumatic stress disorder F43.10 [place] [address] [place] [id number] [place] [phone] SP Apr, Major depressive disorder, r ecurrent episode, moderate F33.1 and SPtraumatic stress disorder F43.10 [place] [address] [place] [id number] [place] [phone] SP Apr, Major depressive disorder, r ecurrent episode, moderate F33.1 and SP episodic mood disorder F39 [place] [address] [place] [id number] [place] [phone] SP Apr, Chronic pain G89.29 ; Diabet ic neuropathy E11.40 ; HTN SP I10 ; Insomnia G47.00 ; CAD (coronary artery disease) I25.10 ; Hyperlipidemia E78.5 ; Degenerative disc disease, lumbar M51.36 ; Diabetes E11.9 and Gastritis K29.70 [place] [id number] [phone] SP Sep, SP [place] [address] [phone] SP Aug, SP [place] [address] [phone] SP Jul, Major depressive disorder, r ecurrent episode, moderate F33.1 SP [place] [address] [phone] SP Jul, Unspecified episodic mood di sorder F39 SP [place] [address] [phone] SP Jul, SP [place] [address] [phone] SP Jul, SP [place] [address] [phone] SP Jul, SP [place] [address] [phone] SP Jul, Type 2 diabetes mellitus wit h hyperglycemia E11.65 ; Diabetic SP E11.40 ; Degenerative disc disease, lumbar M51.36 ; HTN (hypertension) I10 ; Gastritis K29.70 ; Hyperlipidemia E78.5 and CAD (coronary artery disease) I25.10 [place] [address] [phone] SP Jul, Severe episode of recurrent major depressive disorder, without SP features F33.2 [place] [address] [phone] SP Jul, SP [facility] [address] [place] [id number] [address] [place] [phone] SP Jun, SP [facility] [address] [phone] SP Jun, Diabetes E11.9 ; Diabetic ne uropathy E11.40 ; Degenerative disc SP lumbar M51.36 ; HTN (hypertension) I10 ; Gastritis K29.70 ; Hyperlipidemia E78.5 ; Unspecified episodic mood disorder F39 ; Depression F32.9 and CAD (coronary artery disease) I25.10 [place] [address] [phone] SP Jun, SP [place] [address] [phone] SP Jun, SP [facility] [address] [phone] SP Jun, Diabetes E11.9 ; Diabetic ne uropathy E11.40 ; Degenerative disc SP lumbar M51.36 ; HTN (hypertension) I10 ; Gastritis K29.70 ; Chronic pain G89.29 ; Insomnia G47.00 and Unspecified episodic mood disorder F39 [place] [address] [address] SP May, Diabetic neuropathy E11.40 ; Degenerative disc disease, lumbar SP ; HTN (hypertension) I10 ; Gastritis K29.70 ; Hyperlipidemia E78.5 ; Chronic pain G89.29 ; Insomnia G47.00 ; Unspecified episodic mood disorder F39 ; Diabetes E11.9 ; CAD (coronary artery disease) I25.10 and H/O Gram positive sepsis Z86.19 [facility] [address] [phone] SP May, SP [facility] [id number] [place] [id number] SP May, SP [facility] [address] [id number] SP May, SP [facility] [id number] [place] [id number] SP May, SP [facility] [id number] [place] [phone] SP May, Diabetes E11.9 ; Chronic cachorro n G89.29 ; UTI (urinary tract SP N39.0 ; Hyperlipidemia E78.5 and Diabetic neuropathy E11.40 [facility] [id number] [place] [phone] SP May, Insomnia, unspecified G47.00 and Chronic pain G89.29 SP [facility] [id number] [place] [phone] SP May, SP [facility] [address] [phone] SP May, SP [facility] [address] [id number] SP May, SP [facility] [id number] [place] [id number] SP Apr, Insomnia, unspecified G47.00 ; Chronic pain G89.29 and SP episodic mood disorder F39 [facility] [address] [id number] SP Apr, Unspecified episodic mood di sorder F39 SP [facility] [id number] [place] [id number] SP Apr, Major depression F32.9 SP [facility] [id number] [place] [id number] SP Apr, SP [facility] [id number] [place] [phone] SP Apr, Diabetes E11.9 ; Diabetic ne uropathy E11.40 ; Degenerative disc SP lumbar M51.36 ; HTN (hypertension) I10 ; Gastritis K29.70 ; Hyperlipidemia E78.5 ; Chronic pain G89.29 and Insomnia G47.00 [facility] [facility] [address] [facility] [id number] [address] [place] [phone] SP Mar, SP [facility] [address] [facility] [id number] [address] [place] [phone] SP Mar, SP [facility] [address] [place] [id number] [place] [phone] SP Mar, SP [facility] [address] [facility] [id number] [place] [phone] SP Mar, Diabetes mellitus 250.00 ; D iabetic neuropathy 250.60 ; CAD SP artery disease) 414.00 ; Degenerative disc disease, lumbar 722.52 ; Gastritis 535.50 and Insomnia 780.52 [facility] [id number] [place] [id number] SP Mar, Diabetes mellitus 250.00 ; D egenerative disc disease, lumbar SP ; Essential hypertension 401.9 ; Gastritis 535.50 and Chronic pain 338.29 [facility] [address] [id number] SP Feb, [facility] [id number] [place] [phone] SP Feb, [facility] [address] [id number] [address] [place] [phone] SP Jan, SP [facility] [address] [id number] [address] [place] [id number] SP Jan, Diabetes mellitus 250.00 ; D iabetic neuropathy 250.60 ; SP disc disease, lumbar 722.52 ; CAD (coronary artery disease) 414.00 ; Essential hypertension 401.9 ; Gastritis 535.50 ; Hyperlipidemia 272.4 and Distal end of ulna fracture, closed 813.43 [facility] [address] [id number] [address] [place] [phone] SP Dec, Wrist pain 719.43 and Diabet es mellitus 250.00 SP [facility] [address] [id number] [address] [place] [address], [place] [id number] SP May, SP [facility] [address] [id number] [address] [place] [address], [place] [address] SP Dec, SP [facility] [address] [id number] [address] [place] [address], [place] [phone] SP November, SP [facility] [address] [id number] [address] [place] [address], [place] [address] SP Oct, SP [facility] [address] [id number] [address] [place] [address], [place] [address] SP Sep, SP [facility] [address] [id number] [address] [place] [address], [place] [address] SP Sep, SP [facility] [address] [id number] [address] [place] [address], [place] [address] SP Jun, SP [facility] [address] [id number] [address] [place] [address], [place] [address] SP Jun, SP [facility] [address] [id number] [address] [place] [address], [place] [address] SP Jun, SP [facility] [address] [facility] [id number] [address] [place] [phone] SP Jun, SP [facility] [address] [id number] [address] [place] [phone] SP Jun, SP [facility] [address] [id number] [address] [place] [address], [place] [address] SP Jun, SP [facility] [address] [id number] [address] [place] [phone] SP Jun, SP [facility] [address] [id number] [address] [place] [phone] SP May, SP [facility] [address] [id number] [address] [place] [phone] SP May, SP [facility] [address] [id number] [address] [place] [phone] SP May, SP [facility] [address] [id number] [address] [place] [phone] SP May, SP [facility] [address] [id number] [address] [place] [phone] SP Apr, SP [facility] [address] [id number] [address] [place] [id number] SP Apr, SP [facility] [address] [facility] [id number] [address] [place] [phone] SP Apr, SP [facility] [address] [facility] [id number] [address] [place] [phone] SP Mar, SP [facility] [address] [facility] [id number] [address] [place] [phone] SP Dec, SP IMMUNIZATIONS No Known Immunizations SOCIAL HISTORY Never Assessed REASON FOR VISIT Controlled Med Refill PLAN OF CARE VITAL SIGNS MEDICATIONS Medication Instructions Dosage Frequency Start Date End Date Duration S tatus POS Hydrocodone-Acetaminophen 10-325 MG Orally 3 times a day 1 tablet a s needed 8h SP Aug, 2017 28 days Active SP RESULTS No [...]
--- OUTSIDE RECORDS SUMMARY | 2019-06-14 01:50 | XMS REPORT ---
Author Author JALEN PEREZ POS Organization [facility] SP Address [address] [place] [address] SP Care Team Providers Care Control Inspector Name Role Phone POS ANAFLAQUITOY Unavailable SP PROBLEMS Type Condition ICD9-CM Code BXH11-AI Code Onset Dates Condition S tatus SNOMED POS Problem Type 2 diabetes mellitus with hyperglycemia E11.65 Active POS Problem Obsessive-compulsive disorder, unspecified type F4 2.9 Active SP Problem Major depressive disorder, recurrent episode, moderate F33.1 Active SP Problem Falls frequently R29.6 Active [id number] [id number] SP Problem Diabetes E11.9 Active [id number] SP Problem Type 2 diabetes mellitus with other diab etic neurological complication SP E11.49 Active 84549181 SP Problem History of pulmonary embolism Z86.711 Active 018398861 SP Problem half-way 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.4 Active [id number] SP Problem Type 2 diabetes mellitus with other diabetic kid allen complication SP Active [id number] SP Problem Hyperlipidemia E78.5 Active 71179 004 SP Problem Insomnia G47.00 Active 492612499 SP Problem HTN (hypertension) I10 Active 3 6006385 SP Problem Chronic pain G89.29 Active 2565596 1 SP Problem CAD (coronary artery disease) I25.10 Active 56433287 SP Problem Degenerative disc disease, lumbar M51.36 Active 39959143 SP Problem Post-traumatic stress disorder F43.10 Active 56138907 SP ALLERGIES No Information ENCOUNTERS Encounter Location Date Diagnosis POS [facility] [address] [facility] [id number] [address] [place] [phone] SP Jan, SP [facility] [address] [facility] [id number] [address] [place] [phone] SP Jan, SP [facility] [address] [facility] [id number] [address] [place] [phone] SP Dec, Chronic pain G89.29 SP [facility] [address] [facility] [id number] [address] [place] [phone] SP November, SP [facility] [address] [facility] [id number] [address] [place] [phone] SP November, Diabetes E11.9 ; CAD ([place] ry artery disease) I25.10 ; Atypical SP pain R07.89 ; Type 2 diabetes mellitus with hyperglycemia E11.65 ; 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.29 ; 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 card tender 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.4 and Chronic pain G89.29 [facility] [address] [facility] [id number] [address] [place] [phone] SP Oct, SP [facility] [address] [facility] [id number] [address] [place] [id number] SP Oct, Chronic pain G89.29 SP [facility] [address] [facility] [id number] [address] [place] [phone] SP Sep, Diabetes E11.9 SP [facility] [address] [facility] [id number] [address] [place] [phone] SP Sep, Chronic pain G89.29 SP [facility] [address] [facility] [id number] [address] [place] [phone] SP Sep, SP [facility] [address] [facility] [id number] [address] [place] [phone] SP Sep, Falls frequently R29.6 ; Elier g term 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.4 SP Type 2 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 E11.49 [facility] [address] [facility] [id number] [address] [place] [phone] SP Sep, SP [facility] [address] [facility] [id number] [address] [place] [phone] SP Sep, Diabetes E11.9 SP [facility] [address] [facility] [id number] [address] [place] [phone] SP Aug, SP [facility] [address] [facility] [id number] [address] [place] [phone] SP Aug, Chronic pain G89.29 SP [facility] [address] [facility] [id number] [address] [place] [phone] SP Aug, SP [facility] [address] [facility] [id number] [address] [place] [phone] SP Aug, Chronic pain G89.29 SP [facility] [address] [facility] [id number] [address] [place] [phone] SP Jul, SP [facility] [address] [facility] [id number] [address] [place] [phone] SP Jul, Diabetes E11.9 and Type 2 di abetes mellitus with other diabetic SP complication E11.29 [facility] [address] [facility] [id number] [address] [place] [phone] SP Jul, Type 2 diabetes mellitus wit h other diabetic kidney complication SP [facility] [address] [facility] [id number] [address] [place] [phone] SP Jul, SP [facility] [address] [facility] [id number] [address] [place] [phone] SP Jul, Chronic pain G89.29 SP [facility] [address] [facility] [id number] [address] [place] [phone] SP Jun, Diabetes E11.9 SP [facility] [address] [facility] [id number] [address] [place] [phone] SP Jun, Chronic pain G89.29 SP [facility] [address] [facility] [id number] [address] [place] [phone] SP Jun, Diabetes E11.9 ; Atypical ch est pain R07.89 ; half-way current SP of insulin Z79.4 ; 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.29 ; Type 2 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 E11.49 ; History of pulmonary embolism Z86.711 and History of CVA (cerebrovascular accident) Z86.73 [facility] [address] [facility] [id number] [address] [place] [phone] SP May, SP [facility] [address] [facility] [id number] [address] [place] [phone] SP May, Chronic pain G89.29 SP [facility] [address] [facility] [id number] [address] [place] [phone] SP Apr, Chronic pain G89.29 SP [facility] [address] [facility] [id number] [address] [place] [phone] SP Apr, SP [facility] [address] [facility] [id number] [address] [place] [phone] SP Mar, Chronic pain G89.29 SP [facility] [address] [facility] [id number] [address] [place] [phone] SP Mar, Diabetes E11.9 SP [facility] [address] [facility] [id number] [address] [place] [phone] SP Mar, SP [facility] [address] [facility] [id number] [address] [place] [phone] SP Mar, Degenerative disc disease, l umbar M51.36 SP [facility] [address] [facility] [id number] [address] [place] [phone] SP Feb, Diabetes E11.9 SP [facility] [address] [facility] [id number] [address] [place] [phone] SP Feb, Diabetes E11.9 SP [facility] [address] [facility] [id number] [address] [place] [phone] SP Feb, Diabetes E11.9 ; HTN (hypert ension) I10 ; Diabetic neuropathy SP and Leg cramps R25.2 [facility] [address] [facility] [id number] [address] [place] [phone] SP Feb, Sprain of calcaneofibular li gament of right ankle, subsequent SP S93.411D ; Major depressive disorder, recurrent episode, moderate F33.1 ; Diabetes E11.9 ; Hyperlipidemia E78.5 ; Post-traumatic stress disorder F43.10 and Other irritable bowel syndrome K58.8 [facility] [address] [id number] [address] [place] [phone] SP 14 Feb, 2017 Major depressive disorder, r ecurrent episode, moderate F33.1 ; SPtraumatic stress disorder F43.10 and Obsessive-compulsive disorder, unspecified type F42.9 [facility] [address] [id number] [address] [place] [phone] SP Feb, SP [facility] [address] [facility] [id number] [address] [place] [phone] SP Feb, Post-traumatic stress disord er F43.10 and Major depressive SP recurrent, moderate F33.1 [facility] [address] [facility] [id number] [address] [place] [phone] SP Feb, Diabetes E11.9 SP [facility] [address] [id number] [address] [place] [phone] SP Feb, Degenerative disc disease, l umbar M51.36 SP [facility] [address] [facility] [id number] [address] [place] [phone] SP Feb, Post-traumatic stress disord er F43.10 and Major depressive SP recurrent, moderate F33.1 [facility] [address] [id number] [address] [place] [phone] SP Feb, SP [facility] [address] [id number] [address] [place] [phone] SP Feb, Diabetes E11.9 SP [facility] [address] [id number] [address] [place] [phone] SP Jan, Diabetes E11.9 SP [facility] [address] [facility] [id number] [address] [place] [phone] SP Jan, Post-traumatic stress disord er F43.10 and Major depressive SP recurrent, moderate F33.1 [facility] [address] [id number] [address] [place] [phone] SP Jan, Diabetes E11.9 SP [facility] [address] [id number] [address] [place] [phone] SP Jan, Diabetes E11.9 SP [facility] [address] [id number] [address] [place] [phone] SP Jan, SP [facility] [address] [id number] [address] [place] [phone] SP Jan, SP [facility] [address] [facility] [id number] [address] [place] [phone] SP Jan, Post-traumatic stress disord er F43.10 and Major depressive SP recurrent, moderate F33.1 [facility] [address] [id number] [address] [place] [phone] SP Jan, SP [facility] [address] [id number] [address] [place] [phone] SP Jan, Major depressive disorder, r ecurrent episode, moderate F33.1 ; SPtraumatic stress disorder F43.10 and Obsessive-compulsive disorder, unspecified type F42.9 [facility] [address] [id number] [address] [place] [phone] SP Jan, SP [facility] [address] [id number] [address] [place] [phone] SP Jan, Diabetes E11.9 SP [facility] [address] [id number] [address] [place] [phone] SP Jan, SP [facility] [address] [facility] [id number] [address] [place] [phone] SP Jan, Sprain of calcaneofibular li gament of right ankle, subsequent SP S93.411D [facility] [address] [id number] [address] [place] [phone] SP Jan, Post-traumatic stress disord er F43.10 and Major depressive SP recurrent, moderate F33.1 [place] [id number] [id number] [address] [place] [phone] SP Jan, Diabetes E11.9 SP [facility] [address] [facility] [id number] [address] [place] [phone] SP 16 Dec, 2016 Major depressive disorder, r ecurrent episode, moderate F33.1 ; SPtraumatic stress disorder F43.10 and Obsessive-compulsive disorder, unspecified type F42.9 [facility] [address] [id number] [address] [place] [phone] SP 15 Dec, 2016 SP [place] [address] [facility] [id number] [address] [place] [phone] SP 14 Dec, 2016 Sprain of calcaneofibular li gament of right ankle, subsequent SP S93.411D [place] [address] [facility] [id number] [address] [place] [phone] SP Dec, Post-traumatic stress disord er F43.10 and Major depressive SP recurrent, moderate F33.1 [place] [address] [id number] [address] [place] [phone] SP Dec, Sprain of calcaneofibular li gament of right ankle, subsequent SP S93.411D [place] [address] [facility] [id number] [address] [place] [phone] SP Dec, Hyperlipidemia E78.5 SP [facility] [address] [id number] [address] [place] [phone] SP Dec, SP [facility] [address] [facility] [id number] [address] [place] [phone] SP Dec, Diabetes E11.9 ; Diabetic ne uropathy E11.40 ; Degenerative disc SP lumbar M51.36 ; Hyperlipidemia E78.5 ; Insomnia G47.00 ; CAD (coronary artery disease) I25.10 ; Major depressive disorder, recurrent, moderate F33.1 ; Post- traumatic stress disorder F43.10 and Other irritable bowel syndrome K58.8 [place] [address] [phone] SP November, Diabetic neuropathy E11.40 a nd Hyperlipidemia E78.5 SP [place] [address] [place] [id number] [place] [phone] SP November, Degenerative disc disease, l umbar M51.36 SP [place] [address] [place] [id number] [place] [phone] SP Oct, SP [place] [address] [phone] SP Oct, Degenerative disc disease, l umbar M51.36 SP [place] [address] [phone] SP Sep, Degenerative disc disease, l umbar M51.36 and HTN (hypertension) SP [place] [address] [phone] SP Sep, Diabetic neuropathy E11.40 ; HTN (hypertension) I10 ; SP disc disease, lumbar M51.36 ; Hyperlipidemia E78.5 ; Insomnia G47.00 ; CAD (coronary artery disease) I25.10 and Diabetes E11.9 [place] [address] [phone] SP Aug, SP [place] [address] [address] SP Aug, Type 2 diabetes mellitus wit h hyperglycemia E11.65 SP [place] [address] [place] [id number] [place] [phone] SP Aug, [place] [address] [place] [id number] [place] [phone] SP Jul, [place] [address] [phone] SP Jul, SP [facility] [address] [id number] [address] [place] [phone] SP Jun, SP [facility] [address] [facility] [id number] [address] [place] [phone] SP Jun, SP [facility] [address] [facility] [id number] [address] [place] [phone] SP Jun, SP [facility] [address] [facility] [id number] [address] [place] [phone] SP Jun, SP [facility] [address] [facility] [id number] [address] [place] [phone] SP May, Major depressive disorder, r ecurrent episode, moderate F33.1 and SPtraumatic stress disorder F43.10 [facility] [address] [facility] [id number] [address] [place] [phone] SP May, Major depressive disorder, r ecurrent episode, moderate F33.1 and SPtraumatic stress disorder F43.10 [facility] [address] [facility] [id number] [address] [place] [phone] SP May, Diabetes E11.9 ; Diabetic ne uropathy E11.40 ; HTN (hypertension) SP ; Gastritis K29.70 ; Hyperlipidemia E78.5 ; Insomnia G47.00 and Major depressive disorder, recurrent, moderate F33.1 [facility] [address] [facility] [id number] [address] [place] [phone] SP May, Major depressive disorder, r ecurrent episode, moderate F33.1 SP [facility] [address] [facility] [id number] [address] [place] [phone] SP Apr, SP [facility] [address] [facility] [id number] [address] [place] [phone] SP Apr, Major depressive disorder, r ecurrent episode, moderate F33.1 and SPtraumatic stress disorder F43.10 [facility] [address] [facility] [id number] [address] [place] [phone] SP Apr, Diabetes E11.9 ; Diabetic ne uropathy E11.40 ; Degenerative disc SP lumbar M51.36 ; HTN (hypertension) I10 ; Hyperlipidemia E78.5 ; Chronic pain G89.29 ; CAD (coronary artery disease) I25.10 and Major depressive disorder, recurrent, moderate F33.1 [place] [address] [facility] [id number] [address] [place] [phone] SP Apr, Major depressive disorder, r ecurrent episode, moderate F33.1 and SPtraumatic stress disorder F43.10 [place] [address] [facility] [id number] [address] [place] [phone] SP Apr, Major depressive disorder, r ecurrent episode, moderate F33.1 and SPtraumatic stress disorder F43.10 [place] [address] [facility] [id number] [address] [place] [phone] SP Apr, Major depressive disorder, r ecurrent episode, moderate F33.1 and SP episodic mood disorder F39 [place] [address] [facility] [id number] [address] [place] [phone] SP Apr, Chronic pain G89.29 ; Diabet ic neuropathy E11.40 ; HTN SP I10 ; Insomnia G47.00 ; CAD (coronary artery disease) I25.10 ; Hyperlipidemia E78.5 ; Degenerative disc disease, lumbar M51.36 ; Diabetes E11.9 and Gastritis K29.70 [place] [address] [facility] [id number] [address] [place] [phone] SP Sep, SP [place] [address] [facility] [id number] [address] [place] [phone] SP Aug, SP [place] [address] [facility] [id number] [address] [place] [phone] SP Jul, Major depressive disorder, r ecurrent episode, moderate F33.1 SP [place] [address] [facility] [id number] [address] [place] [phone] SP Jul, Unspecified episodic mood di sorder F39 SP [facility] [address] [facility] [id number] [address] [place] [phone] SP Jul, SP [facility] [address] [facility] [id number] [address] [place] [id number] SP Jul, SP [facility] [address] [facility] [id number] [place] [phone] SP Jul, SP [facility] [address] [facility] [id number] [place] [phone] SP Jul, Type 2 diabetes mellitus wit h hyperglycemia E11.65 ; Diabetic SP E11.40 ; Degenerative disc disease, lumbar M51.36 ; HTN (hypertension) I10 ; Gastritis K29.70 ; Hyperlipidemia E78.5 and CAD (coronary artery disease) I25.10 [place] [address] [place] [id number] [place] [address] SP Jul, Severe episode of recurrent major depressive disorder, without SP features F33.2 [facility] [address] [facility] [id number] [address] [place] [phone] SP Jul, SP [facility] [address] [place] [id number] [place] [address] SP Jun, SP [facility] [address] [place] [id number] [place] [address] SP Jun, Diabetes E11.9 ; Diabetic ne uropathy E11.40 ; Degenerative disc SP lumbar M51.36 ; HTN (hypertension) I10 ; Gastritis K29.70 ; Hyperlipidemia E78.5 ; Unspecified episodic mood disorder F39 ; Depression F32.9 and CAD (coronary artery disease) I25.10 [facility] [address] [facility] [id number] [place] [phone] SP Jun, SP [facility] [address] [facility] [id number] [address] [place] [phone] SP Jun, SP [facility] [address] [place] [id number] [place] [address] SP Jun, Diabetes E11.9 ; Diabetic ne uropathy E11.40 ; Degenerative disc SP lumbar M51.36 ; HTN (hypertension) I10 ; Gastritis K29.70 ; Chronic pain G89.29 ; Insomnia G47.00 and Unspecified episodic mood disorder F39 [facility] [address] [facility] [id number] [address] [place] [phone] SP May, Diabetic neuropathy E11.40 ; Degenerative disc disease, lumbar SP ; HTN (hypertension) I10 ; Gastritis K29.70 ; Hyperlipidemia E78.5 ; Chronic pain G89.29 ; Insomnia G47.00 ; Unspecified episodic mood disorder F39 ; Diabetes E11.9 ; CAD (coronary artery disease) I25.10 and H/O Gram positive sepsis Z86.19 [facility] [address] [facility] [id number] [address] [place] [phone] SP May, SP [facility] [address] [facility] [id number] [address] [place] [phone] SP May, SP [facility] [address] [facility] [id number] [address] [place] [phone] SP May, SP [facility] [address] [facility] [id number] [address] [place] [phone] SP May, SP [facility] [address] [facility] [id number] [address] [place] [phone] SP May, UTI (urinary tract infection ) N39.0 ; Diabetes E11.9 ; Diabetic SP E11.40 ; Hyperlipidemia E78.5 and Chronic pain G89.29 [facility] [address] [facility] [id number] [address] [place] [address] SP May, Insomnia, unspecified G47.00 and Chronic pain G89.29 SP [facility] [address] [facility] [id number] [address] [place] [phone] SP May, SP [facility] [address] [facility] [id number] [address] [place] [phone] SP May, SP [facility] [address] [phone] SP May, SP [facility] [address] [address] SP Apr, Insomnia, unspecified G47.00 ; Chronic pain G89.29 and SP episodic mood disorder F39 [facility] [address] [phone] SP Apr, Unspecified episodic mood di sorder F39 SP [facility] [address] [place] [id number] [place] [id number] SP Apr, Major depression F32.9 SP [place] [address] [place] [id number] [place] [id number] SP Apr, SP [place] [id number] [address] SP Apr, Diabetes E11.9 ; Diabetic ne uropathy E11.40 ; Degenerative disc SP lumbar M51.36 ; HTN (hypertension) I10 ; Gastritis K29.70 ; Hyperlipidemia E78.5 ; Chronic pain G89.29 and Insomnia G47.00 [place] [address] [address] SP Mar, SP [facility] [address] [address] SP Mar, SP [facility] [address] [address] SP Mar, SP [facility] [address] [place] [id number] [place] [id number] SP Mar, Diabetes mellitus 250.00 ; D iabetic neuropathy 250.60 ; CAD SP artery disease) 414.00 ; Degenerative disc disease, lumbar 722.52 ; Gastritis 535.50 and Insomnia 780.52 [place] [address] [address] SP Mar, Diabetes mellitus 250.00 ; D egenerative disc disease, lumbar SP ; Essential hypertension 401.9 ; Gastritis 535.50 and Chronic pain 338.29 [facility] [address] [address] SP Feb, SP [facility] [address] [address] SP Feb, SP [facility] [address] [id number] SP Jan, SP [facility] [address] [id number] SP Jan, Diabetes mellitus 250.00 ; D iabetic neuropathy 250.60 ; SP disc disease, lumbar 722.52 ; CAD (coronary artery disease) 414.00 ; Essential hypertension 401.9 ; Gastritis 535.50 ; Hyperlipidemia 272.4 and Distal end of ulna fracture, closed 813.43 [facility] [address] [id number] SP Dec, Wrist pain 719.43 and Diabet es mellitus 250.00 SP [facility] [address] [id number] SP May, SP [facility] [address] [id number] SP Dec, SP [facility] [address] [id number] SP November, SP [facility] [address] [place] [id number] [address] [place] [id number] SP Oct, SP [facility] [address] [id number] SP Sep, SP [facility] [address] [address] SP Sep, SP [facility] [address] [place] [address] SP 23 Jun, 2009 SP [facility] [address] [id number] [address] [place] [address], [place] [address] SP 21 Jun, 2008 SP [facility] [address] [id number] [address] [place] [id number] SP 14 Jun, 2009 SP [facility] [address] [id number] [address] [place] [id number] SP 10 Jun, 2008 SP [facility] [address] [id number] [address] [place] [address], [place] [id number] SP Jun, SP [facility] [address] [id number] [address] [place] [address], [place] [address] SP Jun, SP [facility] [address] [facility] [id number] [address] [place] [id number] SP Jun, SP [facility] [address] [id number] [address] [place] [id number] SP May, SP [facility] [address] [id number] [address] [place] [id number] SP May, SP [facility] [address] [id number] [address] [place] [id number] SP May, SP [facility] [address] [id number] [address] [place] [id number] SP 02 May, 2009 SP [facility] [address] [id number] [address] [place] [id number] SP 28 Apr, 2009 SP [facility] [address] [id number] [address] [place] [address], [place] [id number] SP 19 Apr, 2009 SP [facility] [address] [id number] [address] [place] [id number] SP 12 Apr, 2009 SP [facility] [address] [id number] [address] [place] [id number] SP 16 Mar, 2009 SP [facility] [address] [facility] [id number] [address] [place] [address] SP Dec, SP IMMUNIZATIONS No Known Immunizations [...]
--- OUTSIDE RECORDS SUMMARY | 2019-06-14 01:51 | XMS REPORT ---
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 Name Role Phone POS PATRICK Peralta Unavailable SP PROBLEMS Type Condition ICD9-CM Code PWO31-OD Code Onset Dates Condition S tatus SNOMED POS Problem Type 2 diabetes mellitus with hyperglycemia E11.65 Active POS Problem Obsessive-compulsive disorder, unspecified type F4 2.9 Active SP Problem Major depressive disorder, recurrent episode, moderate F33.1 Active SP Problem Falls frequently R29.6 Active 279 733425 SP Problem Diabetes E11.9 Active 302286252 SP Problem Type 2 diabetes mellitus with other diab etic neurological complication SP E11.49 Active 75627859 SP Problem History of pulmonary embolism Z86.711 Active 892592364 SP Problem care home 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.4 Active 489455112 SP Problem Type 2 diabetes mellitus with other diabetic kid allen complication SP Active 61375767 SP Problem Hyperlipidemia E78.5 Active 45083 004 SP Problem Insomnia G47.00 Active 870231221 SP Problem HTN (hypertension) I10 Active 3 1098515 SP Problem Chronic pain G89.29 Active 2652237 1 SP Problem CAD (coronary artery disease) I25.10 Active 79207670 SP Problem Degenerative disc disease, lumbar M51.36 Active 15474711 SP Problem Post-traumatic stress disorder F43.10 Active 59287780 SP ALLERGIES No Information ENCOUNTERS Encounter Location Date Diagnosis POS [facility] [id number] [place] [phone] SP November, SP [facility] [address] [id number] [address] [place] [phone] SP Sep, Diabetes E11.9 SP [facility] [address] [id number] [address] [place] [phone] SP Sep, Chronic pain G89.29 SP [facility] [address] [facility] [id number] [address] [place] [phone] SP Sep, SP [facility] [address] [facility] [id number] [address] [place] [address] SP Sep, Falls frequently R29.6 ; Elier g term 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.4 SP Type 2 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 E11.49 [facility] [address] [facility] [id number] [address] [place] [phone] SP Sep, SP [facility] [address] [facility] [id number] [address] [place] [address] SP Sep, Diabetes E11.9 SP [facility] [address] [facility] [id number] [address] [place] [phone] SP Aug, SP [facility] [address] [facility] [id number] [address] [place] [address] SP Aug, Chronic pain G89.29 SP [facility] [address] [facility] [id number] [address] [place] [address] SP Aug, SP [facility] [address] [facility] [id number] [address] [place] [phone] SP Aug, Chronic pain G89.29 SP [facility] [address] [facility] [id number] [address] [place] [phone] SP Jul, SP [facility] [address] [facility] [id number] [address] [place] [phone] SP Jul, Diabetes E11.9 and Type 2 di abetes mellitus with other diabetic SP complication E11.29 [facility] [address] [facility] [id number] [address] [place] [address] SP Jul, Type 2 diabetes mellitus wit h other diabetic kidney complication SP [facility] [address] [facility] [id number] [address] [place] [address] SP Jul, SP [facility] [address] [facility] [id number] [address] [place] [address] SP Jul, Chronic pain G89.29 SP [facility] [address] [facility] [id number] [address] [place] [address] SP Jun, Diabetes E11.9 SP [facility] [address] [facility] [id number] [address] [place] [phone] SP Jun, Chronic pain G89.29 SP [facility] [address] [facility] [id number] [address] [place] [phone] SP Jun, Diabetes E11.9 ; Atypical ch est pain R07.89 ; 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 ; 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.29 ; Type 2 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 E11.49 ; History of pulmonary embolism Z86.711 and History of CVA (cerebrovascular accident) Z86.73 [facility] [address] [facility] [id number] [address] [place] [address] SP May, SP [facility] [address] [facility] [id number] [address] [place] [phone] SP May, Chronic pain G89.29 SP [facility] [address] [facility] [id number] [address] [place] [address] SP Apr, Chronic pain G89.29 SP [facility] [address] [facility] [id number] [address] [place] [address] SP Apr, SP [facility] [address] [facility] [id number] [address] [place] [phone] SP Mar, Chronic pain G89.29 SP [facility] [address] [facility] [id number] [address] [place] [address] SP Mar, Diabetes E11.9 SP [facility] [address] [facility] [id number] [address] [place] [address] SP Mar, SP [place] [id number] [facility] [id number] [address] [place] [address] SP Mar, Degenerative disc disease, l umbar M51.36 SP [place] [address] [facility] [id number] [address] [place] [address] SP Feb, Diabetes E11.9 SP [place] [address] [facility] [id number] [address] [place] [phone] SP Feb, Diabetes E11.9 SP [place] [address] [facility] [id number] [address] [place] [address] SP Feb, Diabetes E11.9 ; HTN (hypert ension) I10 ; Diabetic neuropathy SP and Leg cramps R25.2 [place] [address] [facility] [id number] [address] [place] [phone] SP Feb, Sprain of calcaneofibular li gament of right ankle, subsequent SP S93.411D ; Major depressive disorder, recurrent episode, moderate F33.1 ; Diabetes E11.9 ; Hyperlipidemia E78.5 ; Post-traumatic stress disorder F43.10 and Other irritable bowel syndrome K58.8 [place] [address] [place] [id number] [address] [place] [phone] SP Feb, Major depressive disorder, r ecurrent episode, moderate F33.1 ; SPtraumatic stress disorder F43.10 and Obsessive-compulsive disorder, unspecified type F42.9 [place] [address] [facility] [id number] [address] [place] [phone] SP Feb, SP [place] [address] [facility] [id number] [address] [place] [address] SP Feb, Post-traumatic stress disord er F43.10 and Major depressive SP recurrent, moderate F33.1 [place] [address] [facility] [id number] [address] [place] [phone] SP Feb, Diabetes E11.9 SP [place] [address] [facility] [id number] [address] [place] [phone] SP Feb, Degenerative disc disease, l umbar M51.36 SP [facility] [address] [id number] [address] [place] [phone] SP Feb, Post-traumatic stress disord er F43.10 and Major depressive SP recurrent, moderate F33.1 [facility] [address] [id number] [address] [place] [phone] SP Feb, SP [facility] [address] [id number] [address] [place] [phone] SP Feb, Diabetes E11.9 SP [facility] [address] [id number] [address] [place] [phone] SP Jan, Diabetes E11.9 SP [facility] [address] [id number] [address] [place] [phone] SP Jan, Post-traumatic stress disord er F43.10 and Major depressive SP recurrent, moderate F33.1 [facility] [address] [id number] [address] [place] [address] SP Jan, Diabetes E11.9 SP [facility] [address] [id number] [address] [place] [phone] SP Jan, Diabetes E11.9 SP [facility] [address] [id number] [address] [place] [phone] SP Jan, SP [facility] [address] [id number] [address] [place] [phone] SP Jan, SP [facility] [address] [id number] [address] [place] [phone] SP Jan, Post-traumatic stress disord er F43.10 and Major depressive SP recurrent, moderate F33.1 [facility] [address] [id number] [address] [place] [phone] SP Jan, SP [facility] [address] [facility] [id number] [address] [place] [phone] SP Jan, Major depressive disorder, r ecurrent episode, moderate F33.1 ; SPtraumatic stress disorder F43.10 and Obsessive-compulsive disorder, unspecified type F42.9 [facility] [address] [id number] [address] [place] [phone] SP Jan, SP [facility] [address] [id number] [address] [place] [phone] SP Jan, Diabetes E11.9 SP [facility] [address] [id number] [address] [place] [phone] SP Jan, SP [facility] [address] [id number] [address] [place] [phone] SP Jan, Sprain of calcaneofibular li gament of right ankle, subsequent SP S93.411D [facility] [address] [id number] [address] [place] [phone] SP Jan, Post-traumatic stress disord er F43.10 and Major depressive SP recurrent, moderate F33.1 [facility] [address] [id number] [address] [place] [phone] SP Jan, Diabetes E11.9 SP [facility] [address] [id number] [address] [place] [phone] SP 16 Dec, 2016 Major depressive disorder, r ecurrent episode, moderate F33.1 ; SPtraumatic stress disorder F43.10 and Obsessive-compulsive disorder, unspecified type F42.9 [facility] [address] [id number] [address] [place] [phone] SP Dec, SP [facility] [address] [id number] [address] [place] [phone] SP 14 Dec, 2016 Sprain of calcaneofibular li gament of right ankle, subsequent SP S93.411D [facility] [address] [id number] [address] [place] [address] SP Dec, Post-traumatic stress disord er F43.10 and Major depressive SP recurrent, moderate F33.1 [place] [id number] [facility] [id number] [address] [place] [phone] SP Dec, Sprain of calcaneofibular li gament of right ankle, subsequent SP S93.411D [place] [address] [facility] [id number] [address] [place] [phone] SP Dec, Hyperlipidemia E78.5 SP [place] [address] [facility] [id number] [address] [place] [address] SP Dec, SP [place] [address] [place] [id number] [address] [place] [phone] SP Dec, Diabetes E11.9 ; Diabetic ne uropathy E11.40 ; Degenerative disc SP lumbar M51.36 ; Hyperlipidemia E78.5 ; Insomnia G47.00 ; CAD (coronary artery disease) I25.10 ; Major depressive disorder, recurrent, moderate F33.1 ; Post- traumatic stress disorder F43.10 and Other irritable bowel syndrome K58.8 [place] [address] [facility] [id number] [address] [place] [phone] SP November, Diabetic neuropathy E11.40 a nd Hyperlipidemia E78.5 SP [place] [address] [facility] [id number] [address] [place] [phone] SP November, Degenerative disc disease, l umbar M51.36 SP [place] [address] [id number] [address] [place] [phone] SP Oct, SP [place] [address] [facility] [id number] [address] [place] [address] SP Oct, Degenerative disc disease, l umbar M51.36 SP [place] [address] [facility] [id number] [address] [place] [address] SP Sep, Degenerative disc disease, l umbar M51.36 and HTN (hypertension) SP [place] [address] [facility] [id number] [address] [place] [phone] SP Sep, Diabetic neuropathy E11.40 ; HTN (hypertension) I10 ; SP disc disease, lumbar M51.36 ; Hyperlipidemia E78.5 ; Insomnia G47.00 ; CAD (coronary artery disease) I25.10 and Diabetes E11.9 [facility] [address] [facility] [id number] [address] [place] [phone] SP Aug, SP [facility] [address] [facility] [id number] [address] [place] [phone] SP Aug, Type 2 diabetes mellitus wit h hyperglycemia E11.65 SP [facility] [address] [facility] [id number] [address] [place] [phone] SP Aug, SP [facility] [address] [facility] [id number] [address] [place] [address] SP Jul, SP [facility] [address] [facility] [id number] [address] [place] [phone] SP Jul, SP [facility] [address] [facility] [id number] [address] [place] [phone] SP Jun, SP [facility] [address] [facility] [id number] [address] [place] [phone] SP Jun, SP [facility] [address] [facility] [id number] [address] [place] [phone] SP Jun, SP [facility] [address] [facility] [id number] [address] [place] [address] SP Jun, SP [facility] [address] [facility] [id number] [address] [place] [address] SP May, Major depressive disorder, r ecurrent episode, moderate F33.1 and SPtraumatic stress disorder F43.10 [facility] [address] [facility] [id number] [address] [place] [phone] SP May, Major depressive disorder, r ecurrent episode, moderate F33.1 and SPtraumatic stress disorder F43.10 [facility] [address] [id number] [address] [place] [address] SP May, Diabetes E11.9 ; Diabetic ne uropathy E11.40 ; HTN (hypertension) SP ; Gastritis K29.70 ; Hyperlipidemia E78.5 ; Insomnia G47.00 and Major depressive disorder, recurrent, moderate F33.1 [place] [address] [facility] [id number] [address] [place] [phone] SP May, Major depressive disorder, r ecurrent episode, moderate F33.1 SP [place] [address] [facility] [id number] [place] [phone] SP Apr, SP [place] [address] [facility] [id number] [place] [phone] SP Apr, Major depressive disorder, r ecurrent episode, moderate F33.1 and SPtraumatic stress disorder F43.10 [place] [address] [place] [id number] [place] [address] SP Apr, Diabetes E11.9 ; Diabetic ne uropathy E11.40 ; Degenerative disc SP lumbar M51.36 ; HTN (hypertension) I10 ; Hyperlipidemia E78.5 ; Chronic pain G89.29 ; CAD (coronary artery disease) I25.10 and Major depressive disorder, recurrent, moderate F33.1 [place] [address] [place] [id number] [address] [place] [address] SP Apr, Major depressive disorder, r ecurrent episode, moderate F33.1 and SPtraumatic stress disorder F43.10 [place] [address] [place] [id number] [address] [place] [address] SP Apr, Major depressive disorder, r ecurrent episode, moderate F33.1 and SPtraumatic stress disorder F43.10 [place] [address] [facility] [id number] [address] [place] [address] SP Apr, Major depressive disorder, r ecurrent episode, moderate F33.1 and SP episodic mood disorder F39 [place] [address] [place] [id number] [address] [place] [address] SP Apr, Chronic pain G89.29 ; Diabet ic neuropathy E11.40 ; HTN SP I10 ; Insomnia G47.00 ; CAD (coronary artery disease) I25.10 ; Hyperlipidemia E78.5 ; Degenerative disc disease, lumbar M51.36 ; Diabetes E11.9 and Gastritis K29.70 [place] [address] [place] [id number] [place] [address] SP Sep, SP [place] [address] [address] SP Aug, SP [place] [address] [address] SP Jul, Major depressive disorder, r ecurrent episode, moderate F33.1 SP [place] [address] [address] SP Jul, Unspecified episodic mood di sorder F39 SP [place] [address] [address] SP Jul, SP [place] [address] [address] SP Jul, SP [place] [address] [address] SP Jul, SP [place] [address] [address] SP Jul, Type 2 diabetes mellitus wit h hyperglycemia E11.65 ; Diabetic SP E11.40 ; Degenerative disc disease, lumbar M51.36 ; HTN (hypertension) I10 ; Gastritis K29.70 ; Hyperlipidemia E78.5 and CAD (coronary artery disease) I25.10 [place] [address] [phone] SP Jul, Severe episode of recurrent major depressive disorder, without SP features F33.2 [place] [address] [address] SP Jul, SP [facility] [id number] [place] [address] SP Jun, SP [facility] [address] [address] SP Jun, Diabetes E11.9 ; Diabetic ne uropathy E11.40 ; Degenerative disc SP lumbar M51.36 ; HTN (hypertension) I10 ; Gastritis K29.70 ; Hyperlipidemia E78.5 ; Unspecified episodic mood disorder F39 ; Depression F32.9 and CAD (coronary artery disease) I25.10 [place] [address] [address] SP Jun, SP [place] [address] [address] SP Jun, SP [place] [address] [address] SP Jun, Diabetes E11.9 ; Diabetic ne uropathy E11.40 ; Degenerative disc SP lumbar M51.36 ; HTN (hypertension) I10 ; Gastritis K29.70 ; Chronic pain G89.29 ; Insomnia G47.00 and Unspecified episodic mood disorder F39 [place] [address] [address] SP May, Diabetic neuropathy E11.40 ; Degenerative disc disease, lumbar SP ; HTN (hypertension) I10 ; Gastritis K29.70 ; Hyperlipidemia E78.5 ; Chronic pain G89.29 ; Insomnia G47.00 ; Unspecified episodic mood disorder F39 ; Diabetes E11.9 ; CAD (coronary artery disease) I25.10 and H/O Gram positive sepsis Z86.19 [facility] [address] [phone] SP May, SP [place] [address] [place] [id number] [place] [address] SP May, SP [facility] [address] [address] SP May, SP [facility] [address] [facility] [id number] [address] [place] [address] SP May, SP [facility] [address] [facility] [id number] [address] [place] [address] SP May, UTI (urinary tract infection ) N39.0 ; Diabetes E11.9 ; Diabetic SP E11.40 ; Hyperlipidemia E78.5 and Chronic pain G89.29 [facility] [address] [place] [id number] [place] [address] SP May, Insomnia, unspecified G47.00 and Chronic pain G89.29 SP [facility] [address] [place] [id number] [place] [address] SP May, SP [facility] [address] [place] [id number] [place] [address] SP May, SP [facility] [address] [place] [address] [id number] [place] [address] SP May, SP [facility] [address] [place] [id number] [place] [address] SP Apr, Insomnia, unspecified G47.00 ; Chronic pain G89.29 and SP episodic mood disorder F39 [facility] [address] [place] [id number] [place] [address] SP Apr, Unspecified episodic mood di sorder F39 SP [facility] [address] [place] [id number] [place] [address] SP Apr, Major depression F32.9 SP [facility] [address] [facility] [id number] [address] [place] [address] SP Apr, SP [facility] [address] [place] [id number] [place] [address] SP Apr, Diabetes E11.9 ; Diabetic ne uropathy E11.40 ; Degenerative disc SP lumbar M51.36 ; HTN (hypertension) I10 ; Gastritis K29.70 ; Hyperlipidemia E78.5 ; Chronic pain G89.29 and Insomnia G47.00 [facility] [address] [address] SP Mar, SP [facility] [address] [place] [id number] [place] [phone] SP Mar, SP [facility] [address] [place] [address] [id number] [place] [address] SP Mar, SP [facility] [address] [place] [address] [id number] [place] [address] SP Mar, Diabetes mellitus 250.00 ; D iabetic neuropathy 250.60 ; CAD SP artery disease) 414.00 ; Degenerative disc disease, lumbar 722.52 ; Gastritis 535.50 and Insomnia 780.52 [place] [address] [address] SP Mar, Diabetes mellitus 250.00 ; D egenerative disc disease, lumbar SP ; Essential hypertension 401.9 ; Gastritis 535.50 and Chronic pain 338.29 [facility] [address] [address] SP Feb, [facility] [address] [id number] SP Feb, [facility] [address] [address] SP Jan, SP [facility] [address] [address] SP Jan, Diabetes mellitus 250.00 ; D iabetic neuropathy 250.60 ; SP disc disease, lumbar 722.52 ; CAD (coronary artery disease) 414.00 ; Essential hypertension 401.9 ; Gastritis 535.50 ; Hyperlipidemia 272.4 and Distal end of ulna fracture, closed 813.43 [facility] [address] [place] [id number] [address] [place] [id number] SP Dec, Wrist pain 719.43 and Diabet es mellitus 250.00 SP [facility] [address] [id number] [address] [place] [address], [place] [address] SP May, SP [facility] [address] [id number] [address] [place] [address], [place] [address] SP Dec, SP [facility] [address] [id number] [address] [place] [address], [place] [address] SP November, SP [facility] [address] [id number] [address] [place] [id number] SP Oct, SP [facility] [address] [id number] [address] [place] [address], [place] [address] SP Sep, SP [facility] [address] [id number] [address] [place] [address], [place] [address] SP Sep, SP [facility] [address] [id number] [address] [place] [address], [place] [address] SP Jun, SP [facility] [address] [id number] [address] [place] [address], [place] [address] SP Jun, SP [facility] [address] [id number] [address] [place] [address], [place] [address] SP Jun, SP [facility] [address] [facility] [id number] [address] [place] [id number] SP Jun, SP [facility] [address] [id number] [address] [place] [id number] SP Jun, SP [facility] [facility] [address] [id number] [address] [place] [address], [place] [phone] SP Jun, SP [facility] [address] [id number] [address] [place] [address], [place] [phone] SP Jun, SP [facility] [address] [facility] [id number] [address] [place] [phone] SP May, SP [facility] [address] [id number] [address] [place] [phone] SP May, SP [facility] [address] [facility] [id number] [address] [place] [phone] SP May, SP [facility] [address] [facility] [id number] [address] [place] [phone] SP May, SP [facility] [address] [facility] [id number] [address] [place] [id number] SP Apr, SP [facility] [address] [facility] [id number] [address] [place] [phone] SP Apr, SP [facility] [address] [facility] [id number] [address] [place] [phone] SP Apr, SP [facility] [address] [facility] [id number] [address] [place] [phone] SP Mar, SP [facility] [address] [facility] [id number] [address] [place] [phone] SP Dec, SP IMMUNIZATIONS No Known Immunizations [...]
--- OUTSIDE RECORDS SUMMARY | 2019-06-14 01:52 | XMS REPORT ---
Author Author PATRICK Peralta POS Organization [facility] SP Address [address] [place] [address] SP Care Team Providers Care Senior Oracle Developer Name Role Phone POS PATRICK Peralta Unavailable SP PROBLEMS Type Condition ICD9-CM Code [id number] Code Onset Dates Condition S tatus SNOMED POS Problem Type 2 diabetes mellitus with hyperglycemia E11.65 Active POS Problem Obsessive-compulsive disorder, unspecified type F4 2.9 Active SP Problem Major depressive disorder, recurrent episode, moderate F33.1 Active SP Problem Falls frequently R29.6 Active 279 [id number] SP Problem Diabetes E11.9 Active 284304661 SP Problem Type 2 diabetes mellitus with other diab etic neurological complication SP E11.49 Active 05441553 SP Problem History of pulmonary embolism Z86.711 Active 057114911 SP Problem halfway 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.4 Active 297309120 SP Problem Type 2 diabetes mellitus with other diabetic kid allen complication SP Active 99956829 SP Problem Hyperlipidemia E78.5 Active 38080 004 SP Problem Insomnia G47.00 Active 716588301 SP Problem HTN (hypertension) I10 Active 3 8560034 SP Problem Chronic pain G89.29 Active 6997593 1 SP Problem CAD (coronary artery disease) I25.10 Active 60418269 SP Problem Degenerative disc disease, lumbar M51.36 Active 88059913 SP Problem Post-traumatic stress disorder F43.10 Active 27225736 SP ALLERGIES No Information ENCOUNTERS Encounter Location Date Diagnosis POS [facility] [address] [id number] [address] [place] [address] SP November, SP [facility] [address] [id number] [address] [place] [address] SP Sep, Diabetes E11.9 SP [facility] [address] [id number] [address] [place] [address] SP Sep, Chronic pain G89.29 SP [facility] [address] [facility] [id number] [address] [place] [phone] SP Sep, SP [facility] [address] [facility] [id number] [address] [place] [address] SP Sep, Falls frequently R29.6 ; Elier g term 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.4 SP Type 2 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 E11.49 [facility] [address] [facility] [id number] [address] [place] [address] SP Sep, SP [facility] [address] [facility] [id number] [address] [place] [address] SP Sep, Diabetes E11.9 SP [facility] [address] [facility] [id number] [address] [place] [address] SP Aug, SP [facility] [address] [facility] [id number] [address] [place] [address] SP Aug, Chronic pain G89.29 SP [facility] [address] [facility] [id number] [address] [place] [address] SP Aug, SP [facility] [address] [facility] [id number] [address] [place] [phone] SP Aug, Chronic pain G89.29 SP [facility] [address] [facility] [id number] [address] [place] [address] SP Jul, SP [facility] [address] [facility] [id number] [address] [place] [address] SP Jul, Diabetes E11.9 and Type 2 di abetes mellitus with other diabetic SP complication E11.29 [facility] [address] [facility] [id number] [address] [place] [phone] SP Jul, Type 2 diabetes mellitus wit h other diabetic kidney complication SP [facility] [address] [facility] [id number] [address] [place] [address] SP Jul, SP [facility] [address] [facility] [id number] [address] [place] [address] SP Jul, Chronic pain G89.29 SP [facility] [address] [facility] [id number] [address] [place] [address] SP Jun, Diabetes E11.9 SP [facility] [address] [facility] [id number] [address] [place] [address] SP Jun, Chronic pain G89.29 SP [facility] [address] [facility] [id number] [address] [place] [address] SP Jun, Diabetes E11.9 ; Atypical ch est pain R07.89 ; [employer]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 ; 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.29 ; Type 2 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 E11.49 ; History of pulmonary embolism Z86.711 and History of CVA (cerebrovascular accident) Z86.73 [facility] [address] [facility] [id number] [address] [place] [address] SP May, SP [facility] [address] [facility] [id number] [address] [place] [address] SP May, Chronic pain G89.29 SP [facility] [address] [facility] [id number] [address] [place] [address] SP Apr, Chronic pain G89.29 SP [facility] [address] [facility] [id number] [address] [place] [address] SP Apr, SP [facility] [address] [facility] [id number] [address] [place] [address] SP Mar, Chronic pain G89.29 SP [facility] [address] [facility] [id number] [address] [place] [phone] SP Mar, Diabetes E11.9 SP [facility] [address] [facility] [id number] [address] [place] [address] SP Mar, SP [place] [address] [facility] [id number] [address] [place] [address] SP Mar, Degenerative disc disease, l umbar M51.36 SP [place] [address] [facility] [id number] [address] [place] [address] SP Feb, Diabetes E11.9 SP [place] [address] [facility] [id number] [address] [place] [address] SP Feb, Diabetes E11.9 SP [place] [address] [facility] [id number] [address] [place] [address] SP Feb, Diabetes E11.9 ; HTN (hypert ension) I10 ; Diabetic neuropathy SP and Leg cramps R25.2 [place] [address] [facility] [id number] [address] [place] [address] SP Feb, Sprain of calcaneofibular li gament of right ankle, subsequent SP S93.411D ; Major depressive disorder, recurrent episode, moderate F33.1 ; Diabetes E11.9 ; Hyperlipidemia E78.5 ; Post-traumatic stress disorder F43.10 and Other irritable bowel syndrome K58.8 [place] [address] [id number] [address] [place] [address] SP Feb, Major depressive disorder, r ecurrent episode, moderate F33.1 ; SPtraumatic stress disorder F43.10 and Obsessive-compulsive disorder, unspecified type F42.9 [place] [address] [facility] [id number] [address] [place] [address] SP Feb, SP [place] [address] [facility] [id number] [address] [place] [address] SP Feb, Post-traumatic stress disord er F43.10 and Major depressive SP recurrent, moderate F33.1 [place] [address] [facility] [id number] [address] [place] [address] SP Feb, Diabetes E11.9 SP [place] [address] [facility] [id number] [address] [place] [address] SP Feb, Degenerative disc disease, l umbar M51.36 SP [facility] [address] [id number] [address] [place] [address] SP Feb, Post-traumatic stress disord er F43.10 and Major depressive SP recurrent, moderate F33.1 [facility] [address] [id number] [address] [place] [address] SP Feb, SP [facility] [address] [id number] [address] [place] [address] SP Feb, Diabetes E11.9 SP [facility] [address] [id number] [address] [place] [address] SP Jan, Diabetes E11.9 SP [facility] [address] [id number] [address] [place] [address] SP Jan, Post-traumatic stress disord er F43.10 and Major depressive SP recurrent, moderate F33.1 [facility] [address] [id number] [address] [place] [phone] SP Jan, Diabetes E11.9 SP [facility] [address] [id number] [address] [place] [address] SP Jan, Diabetes E11.9 SP [facility] [address] [id number] [address] [place] [address] SP Jan, SP [facility] [address] [id number] [address] [place] [phone] SP Jan, SP [facility] [address] [id number] [address] [place] [address] SP Jan, Post-traumatic stress disord er F43.10 and Major depressive SP recurrent, moderate F33.1 [facility] [address] [id number] [address] [place] [phone] SP Jan, SP [facility] [address] [facility] [id number] [address] [place] [address] SP Jan, Major depressive disorder, r ecurrent episode, moderate F33.1 ; SPtraumatic stress disorder F43.10 and Obsessive-compulsive disorder, unspecified type F42.9 [facility] [address] [id number] [address] [place] [address] SP Jan, SP [facility] [address] [id number] [address] [place] [address] SP Jan, Diabetes E11.9 SP [facility] [address] [id number] [address] [place] [address] SP Jan, SP [facility] [address] [id number] [address] [place] [address] SP Jan, Sprain of calcaneofibular li gament of right ankle, subsequent SP S93.411D [facility] [address] [id number] [address] [place] [address] SP Jan, Post-traumatic stress disord er F43.10 and Major depressive SP recurrent, moderate F33.1 [facility] [address] [id number] [address] [place] [address] SP Jan, Diabetes E11.9 SP [facility] [address] [id number] [address] [place] [address] SP 16 Dec, 2016 Major depressive disorder, r ecurrent episode, moderate F33.1 ; SPtraumatic stress disorder F43.10 and Obsessive-compulsive disorder, unspecified type F42.9 [facility] [address] [id number] [address] [place] [address] SP Dec, SP [facility] [address] [id number] [address] [place] [address] SP 14 Dec, 2016 Sprain of calcaneofibular li gament of right ankle, subsequent SP S93.411D [facility] [address] [id number] [address] [place] [address] SP Dec, Post-traumatic stress disord er F43.10 and Major depressive SP recurrent, moderate F33.1 [place] [address] [facility] [id number] [address] [place] [phone] SP Dec, Sprain of calcaneofibular li gament of right ankle, subsequent SP S93.411D [place] [address] [facility] [id number] [address] [place] [address] SP Dec, Hyperlipidemia E78.5 SP [place] [address] [facility] [id number] [address] [place] [address] SP Dec, SP [place] [address] [place] [id number] [address] [place] [phone] SP Dec, Diabetes E11.9 ; Diabetic ne uropathy E11.40 ; Degenerative disc SP lumbar M51.36 ; Hyperlipidemia E78.5 ; Insomnia G47.00 ; CAD (coronary artery disease) I25.10 ; Major depressive disorder, recurrent, moderate F33.1 ; Post- traumatic stress disorder F43.10 and Other irritable bowel syndrome K58.8 [place] [address] [facility] [id number] [address] [place] [address] SP November, Diabetic neuropathy E11.40 a nd Hyperlipidemia E78.5 SP [place] [address] [facility] [id number] [address] [place] [address] SP November, Degenerative disc disease, l umbar M51.36 SP [place] [address] [id number] [address] [place] [address] SP Oct, SP [place] [address] [facility] [id number] [address] [place] [address] SP Oct, Degenerative disc disease, l umbar M51.36 SP [place] [address] [facility] [id number] [address] [place] [address] SP Sep, Degenerative disc disease, l umbar M51.36 and HTN (hypertension) SP [place] [address] [facility] [id number] [address] [place] [address] SP Sep, Diabetic neuropathy E11.40 ; HTN (hypertension) I10 ; SP disc disease, lumbar M51.36 ; Hyperlipidemia E78.5 ; Insomnia G47.00 ; CAD (coronary artery disease) I25.10 and Diabetes E11.9 [facility] [address] [facility] [id number] [address] [place] [address] SP Aug, SP [facility] [address] [facility] [id number] [address] [place] [address] SP Aug, Type 2 diabetes mellitus wit h hyperglycemia E11.65 SP [facility] [address] [facility] [id number] [address] [place] [address] SP Aug, SP [facility] [address] [facility] [id number] [address] [place] [address] SP Jul, SP [facility] [address] [facility] [id number] [address] [place] [address] SP Jul, SP [facility] [address] [facility] [id number] [address] [place] [address] SP Jun, SP [facility] [address] [facility] [id number] [address] [place] [address] SP Jun, SP [facility] [address] [facility] [id number] [address] [place] [id number] SP Jun, SP [facility] [address] [facility] [id number] [address] [place] [phone] SP Jun, SP [facility] [address] [facility] [id number] [address] [place] [address] SP May, Major depressive disorder, r ecurrent episode, moderate F33.1 and SPtraumatic stress disorder F43.10 [facility] [address] [facility] [id number] [address] [place] [phone] SP May, Major depressive disorder, r ecurrent episode, moderate F33.1 and SPtraumatic stress disorder F43.10 [facility] [address] [id number] [address] [place] [address] SP May, Diabetes E11.9 ; Diabetic ne uropathy E11.40 ; HTN (hypertension) SP ; Gastritis K29.70 ; Hyperlipidemia E78.5 ; Insomnia G47.00 and Major depressive disorder, recurrent, moderate F33.1 [place] [address] [facility] [id number] [address] [place] [phone] SP May, Major depressive disorder, r ecurrent episode, moderate F33.1 SP [place] [address] [facility] [id number] [place] [phone] SP Apr, SP [place] [address] [facility] [id number] [place] [phone] SP Apr, Major depressive disorder, r ecurrent episode, moderate F33.1 and SPtraumatic stress disorder F43.10 [place] [address] [id number] [place] [address] SP Apr, Diabetes E11.9 ; Diabetic ne uropathy E11.40 ; Degenerative disc SP lumbar M51.36 ; HTN (hypertension) I10 ; Hyperlipidemia E78.5 ; Chronic pain G89.29 ; CAD (coronary artery disease) I25.10 and Major depressive disorder, recurrent, moderate F33.1 [place] [address] [id number] [address] [place] [address] SP Apr, Major depressive disorder, r ecurrent episode, moderate F33.1 and SPtraumatic stress disorder F43.10 [place] [address] [id number] [address] [place] [phone] SP Apr, Major depressive disorder, r ecurrent episode, moderate F33.1 and SPtraumatic stress disorder F43.10 [place] [address] [facility] [id number] [address] [place] [address] SP Apr, Major depressive disorder, r ecurrent episode, moderate F33.1 and SP episodic mood disorder F39 [place] [address] [place] [id number] [address] [place] [address] SP Apr, Chronic pain G89.29 ; Diabet ic neuropathy E11.40 ; HTN SP I10 ; Insomnia G47.00 ; CAD (coronary artery disease) I25.10 ; Hyperlipidemia E78.5 ; Degenerative disc disease, lumbar M51.36 ; Diabetes E11.9 and Gastritis K29.70 [place] [address] [place] [id number] [place] [address] SP Sep, SP [place] [address] [address] SP Aug, SP [place] [address] [address] SP Jul, Major depressive disorder, r ecurrent episode, moderate F33.1 SP [place] [address] [address] SP Jul, Unspecified episodic mood di sorder F39 SP [place] [address] [address] SP Jul, SP [place] [address] [address] SP Jul, SP [place] [address] [address] SP Jul, SP [place] [address] [address] SP Jul, Type 2 diabetes mellitus wit h hyperglycemia E11.65 ; Diabetic SP E11.40 ; Degenerative disc disease, lumbar M51.36 ; HTN (hypertension) I10 ; Gastritis K29.70 ; Hyperlipidemia E78.5 and CAD (coronary artery disease) I25.10 [place] [address] [address] SP Jul, Severe episode of recurrent major depressive disorder, without SP features F33.2 [place] [address] [address] SP Jul, SP [facility] [id number] [place] [address] SP Jun, SP [facility] [address] [address] SP Jun, Diabetes E11.9 ; Diabetic ne uropathy E11.40 ; Degenerative disc SP lumbar M51.36 ; HTN (hypertension) I10 ; Gastritis K29.70 ; Hyperlipidemia E78.5 ; Unspecified episodic mood disorder F39 ; Depression F32.9 and CAD (coronary artery disease) I25.10 [place] [address] [address] SP Jun, SP [place] [address] [address] SP Jun, SP [place] [address] [address] SP Jun, Diabetes E11.9 ; Diabetic ne uropathy E11.40 ; Degenerative disc SP lumbar M51.36 ; HTN (hypertension) I10 ; Gastritis K29.70 ; Chronic pain G89.29 ; Insomnia G47.00 and Unspecified episodic mood disorder F39 [place] [address] [address] SP May, Diabetic neuropathy E11.40 ; Degenerative disc disease, lumbar SP ; HTN (hypertension) I10 ; Gastritis K29.70 ; Hyperlipidemia E78.5 ; Chronic pain G89.29 ; Insomnia G47.00 ; Unspecified episodic mood disorder F39 ; Diabetes E11.9 ; CAD (coronary artery disease) I25.10 and H/O Gram positive sepsis Z86.19 [facility] [address] [address] SP May, SP [place] [address] [place] [id number] [place] [address] SP May, SP [facility] [address] [address] SP May, SP [facility] [address] [facility] [id number] [address] [place] [address] SP May, SP [facility] [address] [facility] [id number] [address] [place] [address] SP May, UTI (urinary tract infection ) N39.0 ; Diabetes E11.9 ; Diabetic SP E11.40 ; Hyperlipidemia E78.5 and Chronic pain G89.29 [facility] [address] [id number] [address] [place] [address] SP May, Insomnia, unspecified G47.00 and Chronic pain G89.29 SP [facility] [address] [address] [id number] [place] [address] SP May, SP [facility] [address] [address] [id number] [place] [address] SP May, SP [facility] [id number] [place] [address] SP May, SP [facility] [address] [id number] [address] [place] [address] SP Apr, Insomnia, unspecified G47.00 ; Chronic pain G89.29 and SP episodic mood disorder F39 [facility] [address] [id number] [place] [address] SP Apr, Unspecified episodic mood di sorder F39 SP [facility] [address] [place] [id number] [address] [place] [address] SP Apr, Major depression F32.9 SP [facility] [address] [facility] [id number] [address] [place] [address] SP Apr, SP [facility] [address] [id number] [address] [place] [address] SP Apr, Diabetes E11.9 ; Diabetic ne uropathy E11.40 ; Degenerative disc SP lumbar M51.36 ; HTN (hypertension) I10 ; Gastritis K29.70 ; Hyperlipidemia E78.5 ; Chronic pain G89.29 and Insomnia G47.00 [facility] [address] [address] SP Mar, SP [facility] [address] [id number] [place] [address] SP Mar, SP [facility] [id number] [place] [address] SP Mar, SP [facility] [id number] [place] [address] SP Mar, Diabetes mellitus 250.00 ; D iabetic neuropathy 250.60 ; CAD SP artery disease) 414.00 ; Degenerative disc disease, lumbar 722.52 ; Gastritis 535.50 and Insomnia 780.52 [place] [address] [address] SP Mar, Diabetes mellitus 250.00 ; D egenerative disc disease, lumbar SP ; Essential hypertension 401.9 ; Gastritis 535.50 and Chronic pain 338.29 [facility] [address] [address] SP Feb, [facility] [address] [address] SP Feb, [facility] [address] [address] SP Jan, SP [facility] [address] [address] SP Jan, Diabetes mellitus 250.00 ; D iabetic neuropathy 250.60 ; SP disc disease, lumbar 722.52 ; CAD (coronary artery disease) 414.00 ; Essential hypertension 401.9 ; Gastritis 535.50 ; Hyperlipidemia 272.4 and Distal end of ulna fracture, closed 813.43 [facility] [address] [place] [id number] [address] [place] [address] SP Dec, Wrist pain 719.43 and Diabet es mellitus 250.00 SP [facility] [address] [id number] [address] [place] [address], [place] [id number] SP May, SP [facility] [address] [id number] [address] [place] [address], [place] [id number] SP Dec, SP [facility] [address] [id number] [address] [place] [address], [place] [id number] SP November, SP [facility] [address] [id number] [address] [place] [id number] SP Oct, SP [facility] [address] [id number] [address] [place] [address], [place] [id number] SP Sep, SP [facility] [address] [id number] [address] [place] [address], [place] [id number] SP Sep, SP [facility] [address] [id number] [address] [place] [address], [place] [id number] SP Jun, SP [facility] [address] [id number] [address] [place] [address], [place] [id number] SP Jun, SP [facility] [address] [id number] [address] [place] [address], [place] [phone] SP Jun, SP [facility] [address] [facility] [id number] [address] [place] [phone] SP Jun, SP [facility] [address] [id number] [address] [place] [phone] SP Jun, SP [facility] [address] [id number] [address] [place] [address], [place] [phone] SP Jun, SP [facility] [address] [id number] [address] [place] [address], [place] [phone] SP Jun, SP [facility] [address] [facility] [id number] [address] [place] [phone] SP May, SP [facility] [address] [id number] [address] [place] [phone] SP May, SP [facility] [address] [facility] [id number] [address] [place] [phone] SP May, SP [facility] [address] [facility] [id number] [address] [place] [phone] SP May, SP [facility] [address] [facility] [id number] [address] [place] [phone] SP Apr, SP [facility] [address] [facility] [id number] [address] [place] [phone] SP Apr, SP [facility] [address] [facility] [id number] [address] [place] [phone] SP Apr, SP [facility] [address] [facility] [id number] [address] [place] [phone] SP Mar, SP [facility] [address] [facility] [id number] [address] [place] [id number] SP Dec, SP IMMUNIZATIONS No Known Immunizations SOCIAL HISTORY Never Assessed REASON FOR VISIT Lab (walk-in) PLAN OF CARE VITAL SIGNS MEDICATIONS Unknown Medications RESULTS Name Result Date Reference Range POS C-PEPTIDE, SERUM 2017-02-11 SP C-Peptide, Serum 0.9 1.1-4.4 SP GLUCOSE, SERUM 2017-02-11 SP Glucose, Serum 252 65-99 SP PROCEDURES Procedure Date Ordered Result Body Site POS LAB NOT BILLED BY [facility] February 11, 2017 SP VENIPUNCT, ROUTINE* February 11, 2017 SP INSTRUCTIONS MEDICATIONS ADMINISTERED No Known [...]
--- OUTSIDE RECORDS SUMMARY | 2019-06-14 01:52 | XMS REPORT ---
Author Author HARITHA GARNER POS Organization [facility] SP Address [address] [place] [address] SP Care Team Providers Care Copyist Name Role Phone POS HARITHA GARNER Unavailable SP PROBLEMS Type Condition ICD9-CM Code [id number] Code Onset Dates Condition S tatus SNOMED POS Problem Type 2 diabetes mellitus with hyperglycemia E11.65 Active POS Problem Obsessive-compulsive disorder, unspecified type F4 2.9 Active SP Problem Major depressive disorder, recurrent episode, moderate F33.1 Active SP Problem Falls frequently R29.6 Active 279 [id number] SP Problem Diabetes E11.9 Active 304226277 SP Problem Type 2 diabetes mellitus with other diab etic neurological complication SP E11.49 Active 53982177 SP Problem History of pulmonary embolism Z86.711 Active 719587358 SP Problem terminal carman 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.4 Active 688975351 SP Problem Type 2 diabetes mellitus with other diabetic kid allen complication SP Active 77856310 SP Problem Hyperlipidemia E78.5 Active 11027 004 SP Problem Insomnia G47.00 Active 053732018 SP Problem HTN (hypertension) I10 Active 3 2201864 SP Problem Chronic pain G89.29 Active 2110689 1 SP Problem CAD (coronary artery disease) I25.10 Active 98330382 SP Problem Degenerative disc disease, lumbar M51.36 Active 24955951 SP Problem Post-traumatic stress disorder F43.10 Active 76109256 SP ALLERGIES No Information ENCOUNTERS Encounter Location Date Diagnosis POS [facility] [address] [facility] [id number] [address] [place] [phone] SP Dec, SP [facility] [address] [facility] [id number] [address] [place] [phone] SP November, SP [facility] [address] [facility] [id number] [address] [place] [phone] SP Oct, SP [facility] [address] [facility] [id number] [address] [place] [phone] SP Oct, Chronic pain G89.29 SP [facility] [address] [facility] [id number] [address] [place] [phone] SP Sep, Diabetes E11.9 SP [facility] [address] [facility] [id number] [address] [place] [phone] SP Sep, Chronic pain G89.29 SP [facility] [address] [facility] [id number] [address] [place] [phone] SP Sep, SP [facility] [address] [facility] [id number] [address] [place] [phone] SP Sep, Falls frequently R29.6 ; Elier g term 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.4 SP Type 2 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 E11.49 [facility] [address] [facility] [id number] [address] [place] [phone] SP Sep, SP [facility] [address] [facility] [id number] [address] [place] [phone] SP Sep, Diabetes E11.9 SP [facility] [address] [facility] [id number] [address] [place] [phone] SP Aug, SP [facility] [address] [facility] [id number] [address] [place] [phone] SP Aug, Chronic pain G89.29 SP [facility] [address] [facility] [id number] [address] [place] [phone] SP Aug, SP [facility] [address] [facility] [id number] [address] [place] [phone] SP Aug, Chronic pain G89.29 SP [facility] [address] [facility] [id number] [address] [place] [phone] SP Jul, SP [facility] [address] [facility] [id number] [address] [place] [phone] SP Jul, Diabetes E11.9 and Type 2 di abetes mellitus with other diabetic SP complication E11.29 [facility] [address] [facility] [id number] [address] [place] [phone] SP Jul, Type 2 diabetes mellitus wit h other diabetic kidney complication SP [facility] [address] [facility] [id number] [address] [place] [phone] SP Jul, SP [facility] [address] [facility] [id number] [address] [place] [phone] SP Jul, Chronic pain G89.29 SP [place] [address] [facility] [id number] [address] [place] [phone] SP Jun, Diabetes E11.9 SP [facility] [address] [facility] [id number] [address] [place] [phone] SP Jun, Chronic pain G89.29 SP [facility] [address] [place] [id number] [address] [place] [phone] SP Jun, Diabetes E11.9 ; Atypical ch est pain R07.89 ; long-term current SP of insulin Z79.4 ; 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.29 ; Type 2 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 E11.49 ; History of pulmonary embolism Z86.711 and History of CVA (cerebrovascular accident) Z86.73 [place] [address] [facility] [id number] [address] [place] [phone] SP May, SP [facility] [address] [facility] [id number] [address] [place] [phone] SP May, Chronic pain G89.29 SP [facility] [address] [facility] [id number] [address] [place] [phone] SP Apr, Chronic pain G89.29 SP [place] [address] [facility] [id number] [address] [place] [phone] SP Apr, SP [facility] [address] [place] [id number] [address] [place] [phone] SP 29 Mar, 2017 Chronic pain G89.29 SP [place] [address] [facility] [id number] [address] [place] [phone] SP 18 Mar, 2017 Diabetes E11.9 SP [place] [id number] [facility] [id number] [address] [place] [phone] SP 07 Mar, 2017 SP [place] [address] [facility] [id number] [address] [place] [phone] SP Mar, Degenerative disc disease, l umbar M51.36 SP [place] [address] [facility] [id number] [address] [place] [phone] SP Feb, Diabetes E11.9 SP [place] [address] [facility] [id number] [address] [place] [phone] SP 23 Feb, 2017 Diabetes E11.9 SP [place] [address] [facility] [id number] [address] [place] [phone] SP 16 Feb, 2017 Diabetes E11.9 ; HTN (hypert ension) I10 ; Diabetic neuropathy SP and Leg cramps R25.2 [place] [address] [facility] [id number] [address] [place] [phone] SP 15 Feb, 2017 Sprain of calcaneofibular li gament of right ankle, subsequent SP S93.411D ; Major depressive disorder, recurrent episode, moderate F33.1 ; Diabetes E11.9 ; Hyperlipidemia E78.5 ; Post-traumatic stress disorder F43.10 and Other irritable bowel syndrome K58.8 [place] [address] [id number] [address] [place] [phone] SP 14 Feb, 2017 Major depressive disorder, r ecurrent episode, moderate F33.1 ; SPtraumatic stress disorder F43.10 and Obsessive-compulsive disorder, unspecified type F42.9 [place] [address] [facility] [id number] [address] [place] [phone] SP Feb, SP [place] [id number] [facility] [id number] [address] [place] [phone] SP Feb, Post-traumatic stress disord er F43.10 and Major depressive SP recurrent, moderate F33.1 [facility] [address] [id number] [address] [place] [phone] SP Feb, Diabetes E11.9 SP [facility] [address] [facility] [id number] [address] [place] [phone] SP Feb, Degenerative disc disease, l umbar M51.36 SP [facility] [address] [facility] [id number] [address] [place] [phone] SP Feb, Post-traumatic stress disord er F43.10 and Major depressive SP recurrent, moderate F33.1 [facility] [address] [facility] [id number] [address] [place] [phone] SP Feb, SP [facility] [address] [facility] [id number] [address] [place] [phone] SP Feb, Diabetes E11.9 SP [facility] [address] [id number] [address] [place] [phone] SP Jan, Diabetes E11.9 SP [facility] [address] [facility] [id number] [address] [place] [phone] SP Jan, Post-traumatic stress disord er F43.10 and Major depressive SP recurrent, moderate F33.1 [facility] [address] [facility] [id number] [address] [place] [phone] SP Jan, Diabetes E11.9 SP [facility] [address] [id number] [address] [place] [phone] SP Jan, Diabetes E11.9 SP [facility] [address] [facility] [id number] [address] [place] [phone] SP Jan, SP [facility] [address] [facility] [id number] [address] [place] [phone] SP Jan, SP [facility] [address] [facility] [id number] [address] [place] [phone] SP Jan, Post-traumatic stress disord er F43.10 and Major depressive SP recurrent, moderate F33.1 [facility] [address] [id number] [address] [place] [phone] SP Jan, SP [facility] [address] [id number] [address] [place] [phone] SP Jan, Major depressive disorder, r ecurrent episode, moderate F33.1 ; SPtraumatic stress disorder F43.10 and Obsessive-compulsive disorder, unspecified type F42.9 [facility] [address] [id number] [address] [place] [phone] SP Jan, SP [facility] [address] [id number] [address] [place] [phone] SP Jan, Diabetes E11.9 SP [facility] [address] [id number] [address] [place] [phone] SP Jan, SP [facility] [address] [id number] [address] [place] [phone] SP Jan, Sprain of calcaneofibular li gament of right ankle, subsequent SP S93.411D [facility] [address] [id number] [address] [place] [phone] SP Jan, Post-traumatic stress disord er F43.10 and Major depressive SP recurrent, moderate F33.1 [facility] [address] [id number] [address] [place] [phone] SP Jan, Diabetes E11.9 SP [facility] [address] [id number] [address] [place] [phone] SP Dec, Major depressive disorder, r ecurrent episode, moderate F33.1 ; SPtraumatic stress disorder F43.10 and Obsessive-compulsive disorder, unspecified type F42.9 [facility] [address] [id number] [address] [place] [phone] SP Dec, SP [facility] [address] [id number] [address] [place] [phone] SP 14 Dec, 2016 Sprain of calcaneofibular li gament of right ankle, subsequent SP S93.411D [facility] [address] [id number] [address] [place] [phone] SP 13 Dec, 2016 Post-traumatic stress disord er F43.10 and Major depressive SP recurrent, moderate F33.1 [place] [address] [id number] [address] [place] [phone] SP 13 Dec, 2016 Sprain of calcaneofibular li gament of right ankle, subsequent SP S93.411D [place] [address] [facility] [id number] [address] [place] [phone] SP 12 Dec, 2016 Hyperlipidemia E78.5 SP [place] [address] [facility] [id number] [address] [place] [phone] SP Dec, SP [place] [address] [facility] [id number] [address] [place] [phone] SP Dec, Diabetes E11.9 ; Diabetic ne uropathy E11.40 ; Degenerative disc SP lumbar M51.36 ; Hyperlipidemia E78.5 ; Insomnia G47.00 ; CAD (coronary artery disease) I25.10 ; Major depressive disorder, recurrent, moderate F33.1 ; Post- traumatic stress disorder F43.10 and Other irritable bowel syndrome K58.8 [place] [address] [facility] [id number] [address] [place] [phone] SP November, Diabetic neuropathy E11.40 a nd Hyperlipidemia E78.5 SP [place] [address] [facility] [id number] [address] [place] [phone] SP November, Degenerative disc disease, l umbar M51.36 SP [place] [address] [facility] [id number] [address] [place] [phone] SP Oct, SP [place] [address] [facility] [id number] [address] [place] [phone] SP Oct, Degenerative disc disease, l umbar M51.36 SP [facility] [address] [facility] [id number] [address] [place] [phone] SP Sep, Degenerative disc disease, l umbar M51.36 and HTN (hypertension) SP [facility] [address] [facility] [id number] [address] [place] [phone] SP Sep, Diabetic neuropathy E11.40 ; HTN (hypertension) I10 ; SP disc disease, lumbar M51.36 ; Hyperlipidemia E78.5 ; Insomnia G47.00 ; CAD (coronary artery disease) I25.10 and Diabetes E11.9 [facility] [address] [facility] [id number] [address] [place] [phone] SP Aug, SP [facility] [address] [facility] [id number] [address] [place] [phone] SP Aug, Type 2 diabetes mellitus wit h hyperglycemia E11.65 SP [facility] [address] [facility] [id number] [address] [place] [phone] SP Aug, SP [facility] [address] [facility] [id number] [address] [place] [phone] SP Jul, SP [facility] [address] [facility] [id number] [address] [place] [phone] SP Jul, SP [facility] [address] [facility] [id number] [address] [place] [phone] SP Jun, SP [facility] [address] [facility] [id number] [address] [place] [phone] SP Jun, SP [facility] [address] [facility] [id number] [address] [place] [phone] SP Jun, SP [facility] [address] [facility] [id number] [address] [place] [phone] SP Jun, SP [facility] [address] [facility] [id number] [address] [place] [phone] SP May, Major depressive disorder, r ecurrent episode, moderate F33.1 and SPtraumatic stress disorder F43.10 [place] [address] [facility] [id number] [address] [place] [phone] SP May, Major depressive disorder, r ecurrent episode, moderate F33.1 and SPtraumatic stress disorder F43.10 [place] [id number] [facility] [id number] [address] [place] [phone] SP May, Diabetes E11.9 ; Diabetic ne uropathy E11.40 ; HTN (hypertension) SP ; Gastritis K29.70 ; Hyperlipidemia E78.5 ; Insomnia G47.00 and Major depressive disorder, recurrent, moderate F33.1 [place] [address] [facility] [id number] [address] [place] [phone] SP May, Major depressive disorder, r ecurrent episode, moderate F33.1 SP [place] [address] [facility] [id number] [address] [place] [phone] SP Apr, SP [place] [address] [id number] [address] [place] [phone] SP Apr, Major depressive disorder, r ecurrent episode, moderate F33.1 and SPtraumatic stress disorder F43.10 [place] [address] [facility] [id number] [address] [place] [phone] SP Apr, Diabetes E11.9 ; Diabetic ne uropathy E11.40 ; Degenerative disc SP lumbar M51.36 ; HTN (hypertension) I10 ; Hyperlipidemia E78.5 ; Chronic pain G89.29 ; CAD (coronary artery disease) I25.10 and Major depressive disorder, recurrent, moderate F33.1 [place] [address] [facility] [id number] [address] [place] [phone] SP Apr, Major depressive disorder, r ecurrent episode, moderate F33.1 and SPtraumatic stress disorder F43.10 [place] [id number] [facility] [id number] [address] [place] [phone] SP Apr, Major depressive disorder, r ecurrent episode, moderate F33.1 and SPtraumatic stress disorder F43.10 [facility] [address] [facility] [id number] [address] [place] [phone] SP Apr, Major depressive disorder, r ecurrent episode, moderate F33.1 and SP episodic mood disorder F39 [facility] [address] [place] [id number] [address] [place] [phone] SP Apr, Chronic pain G89.29 ; Diabet ic neuropathy E11.40 ; HTN SP I10 ; Insomnia G47.00 ; CAD (coronary artery disease) I25.10 ; Hyperlipidemia E78.5 ; Degenerative disc disease, lumbar M51.36 ; Diabetes E11.9 and Gastritis K29.70 [place] [address] [place] [id number] [address] [place] [phone] SP Sep, SP [facility] [address] [place] [id number] [place] [phone] SP Aug, SP [facility] [address] [place] [id number] [place] [phone] SP Jul, Major depressive disorder, r ecurrent episode, moderate F33.1 SP [facility] [address] [place] [id number] [address] [place] [phone] SP Jul, Unspecified episodic mood di sorder F39 SP [facility] [address] [facility] [id number] [address] [place] [phone] SP Jul, SP [facility] [address] [place] [id number] [address] [place] [phone] SP Jul, SP [facility] [address] [facility] [id number] [address] [place] [phone] SP Jul, SP [facility] [address] [place] [id number] [address] [place] [phone] SP Jul, Type 2 diabetes mellitus wit h hyperglycemia E11.65 ; Diabetic SP E11.40 ; Degenerative disc disease, lumbar M51.36 ; HTN (hypertension) I10 ; Gastritis K29.70 ; Hyperlipidemia E78.5 and CAD (coronary artery disease) I25.10 [place] [address] [facility] [id number] [place] [phone] SP Jul, Severe episode of recurrent major depressive disorder, without SP features F33.2 [place] [address] [facility] [id number] [address] [place] [phone] SP Jul, SP [place] [address] [facility] [id number] [place] [phone] SP Jun, SP [place] [address] [facility] [id number] [place] [phone] SP Jun, Diabetes E11.9 ; Diabetic ne uropathy E11.40 ; Degenerative disc SP lumbar M51.36 ; HTN (hypertension) I10 ; Gastritis K29.70 ; Hyperlipidemia E78.5 ; Unspecified episodic mood disorder F39 ; Depression F32.9 and CAD (coronary artery disease) I25.10 [place] [address] [place] [id number] [address] [place] [phone] SP Jun, SP [place] [address] [facility] [id number] [place] [phone] SP Jun, SP [place] [address] [place] [id number] [place] [phone] SP Jun, Diabetes E11.9 ; Diabetic ne uropathy E11.40 ; Degenerative disc SP lumbar M51.36 ; HTN (hypertension) I10 ; Gastritis K29.70 ; Chronic pain G89.29 ; Insomnia G47.00 and Unspecified episodic mood disorder F39 [place] [address] [facility] [id number] [address] [place] [phone] SP May, Diabetic neuropathy E11.40 ; Degenerative disc disease, lumbar SP ; HTN (hypertension) I10 ; Gastritis K29.70 ; Hyperlipidemia E78.5 ; Chronic pain G89.29 ; Insomnia G47.00 ; Unspecified episodic mood disorder F39 ; Diabetes E11.9 ; CAD (coronary artery disease) I25.10 and H/O Gram positive sepsis Z86.19 [facility] [address] [id number] [address] [place] [phone] SP May, SP [facility] [address] [id number] [address] [place] [phone] SP May, SP [facility] [address] [facility] [id number] [address] [place] [phone] SP May, SP [facility] [address] [facility] [id number] [address] [place] [phone] SP May, SP [facility] [address] [facility] [id number] [address] [place] [phone] SP May, UTI (urinary tract infection ) N39.0 ; Diabetes E11.9 ; Diabetic SP E11.40 ; Hyperlipidemia E78.5 and Chronic pain G89.29 [facility] [address] [facility] [id number] [address] [place] [id number] SP May, Insomnia, unspecified G47.00 and Chronic pain G89.29 SP [facility] [address] [facility] [id number] [address] [place] [id number] SP May, SP [facility] [address] [facility] [id number] [address] [place] [phone] SP May, SP [facility] [address] [facility] [id number] [address] [place] [phone] SP May, SP [facility] [address] [facility] [id number] [address] [place] [id number] SP Apr, Insomnia, unspecified G47.00 ; Chronic pain G89.29 and SP episodic mood disorder F39 [facility] [address] [facility] [id number] [address] [place] [phone] SP Apr, Unspecified episodic mood di sorder F39 SP [facility] [address] [facility] [id number] [address] [place] [address] [id number] SP Apr, Major depression F32.9 SP [facility] [address] [id number] SP Apr, SP [facility] [address] [id number] SP Apr, Diabetes E11.9 ; Diabetic ne uropathy E11.40 ; Degenerative disc SP lumbar M51.36 ; HTN (hypertension) I10 ; Gastritis K29.70 ; Hyperlipidemia E78.5 ; Chronic pain G89.29 and Insomnia G47.00 [place] [address] [id number] SP Mar, SP [place] [address] [id number] SP Mar, [place] [address] [id number] SP Mar, [place] [address] [id number] SP Mar, Diabetes mellitus 250.00 ; D iabetic neuropathy 250.60 ; CAD SP artery disease) 414.00 ; Degenerative disc disease, lumbar 722.52 ; Gastritis 535.50 and Insomnia 780.52 [place] [address] [id number] SP Mar, Diabetes mellitus 250.00 ; D egenerative disc disease, lumbar SP ; Essential hypertension 401.9 ; Gastritis 535.50 and Chronic pain 338.29 [place] [address] [id number] SP Feb, SP [facility] [address] [id number] SP Feb, [place] [address] [id number] SP Jan, SP [facility] [address] [id number] SP Jan, Diabetes mellitus 250.00 ; D iabetic neuropathy 250.60 ; SP disc disease, lumbar 722.52 ; CAD (coronary artery disease) 414.00 ; Essential hypertension 401.9 ; Gastritis 535.50 ; Hyperlipidemia 272.4 and Distal end of ulna fracture, closed 813.43 [facility] [address] [facility] [id number] [address] [place] [phone] SP Dec, Wrist pain 719.43 and Diabet es mellitus 250.00 SP [facility] [address] [id number] [address] [place] [phone] SP May, SP [facility] [address] [facility] [id number] [address] [place] [phone] SP Dec, SP [facility] [address] [facility] [id number] [address] [place] [phone] SP November, SP [facility] [address] [facility] [id number] [address] [place] [phone] SP Oct, SP [facility] [address] [facility] [id number] [address] [place] [phone] SP Sep, SP [facility] [address] [facility] [id number] [place] [phone] SP Sep, SP [facility] [address] [facility] [id number] [address] [place] [phone] SP Jun, SP [facility] [address] [facility] [id number] [address] [place] [phone] SP Jun, SP [facility] [address] [facility] [id number] [address] [place] [phone] SP Jun, SP [facility] [address] [facility] [id number] [address] [place] [phone] SP Jun, SP [facility] [address] [facility] [id number] [address] [place] [phone] SP Jun, SP [facility] [address] [place] [id number] [address] [place] [phone] SP Jun, SP [facility] [address] [id number] [address] [place] [phone] SP Jun, SP [facility] [address] [id number] [address] [place] [phone] SP May, SP [facility] [address] [id number] [address] [place] [phone] SP May, SP [facility] [address] [id number] [address] [place] [id number] SP May, SP [facility] [address] [facility] [id number] [address] [place] [id number] SP May, SP [facility] [address] [id number] [address] [place] [id number] SP Apr, SP [facility] [address] [id number] [address] [place] [phone] SP Apr, SP [facility] [address] [id number] [address] [place] [id number] SP Apr, SP [facility] [address] [id number] [address] [place] [id number] SP Mar, SP [facility] [address] [id number] [address] [place] [id number] SP Dec, SP IMMUNIZATIONS No Known Immunizations SOCIAL HISTORY Never Assessed REASON FOR VISIT Hydrocodone- 105 PLAN OF CARE VITAL SIGNS MEDICATIONS Medication [...]
--- OUTSIDE RECORDS SUMMARY | 2019-06-14 02:04 | XMS REPORT ---
Author Author JALEN PEREZ POS Organization [facility] SP Address [address] [place] [address] SP Care Team Providers Care Customer Service Voice Name Role Phone POS RISSAKARTIKJALEN Unavailable SP PROBLEMS Type Condition ICD9-CM Code APA61-RT Code Onset Dates Condition S tatus SNOMED POS Problem Type 2 diabetes mellitus with hyperglycemia E11.65 Active POS Problem Major depressive disorder, recurrent episode, moderate F33.1 Active SP Problem Obsessive-compulsive disorder, unspecified type F4 2.9 Active SP Problem Ataxia R27.0 Active [id number] SP Problem Falls frequently R29.6 Active [id number] 831947 SP Problem Type 2 diabetes mellitus with other diab etic neurological complication SP E11.49 Active 40010424 SP 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 466638442 SP Problem History of pulmonary embolism Z86.711 Active 543293139 SP Problem Type 2 diabetes mellitus with other diabetic kid allen complication SP Active 79942560 SP Problem Insomnia G47.00 Active 413256694 SP Problem Degenerative disc disease, lumbar M51.36 Active 61179516 SP Problem HTN (hypertension) I10 Active 3 0560119 SP Problem Hyperlipidemia E78.5 Active 58870 004 SP Problem CAD (coronary artery disease) I25.10 Active 69754781 SP Problem Chronic pain G89.29 Active 5729263 1 SP Problem Post-traumatic stress disorder F43.10 Active 60158840 SP ALLERGIES No Information ENCOUNTERS Encounter Location Date Diagnosis POS [facility] [address] [facility] [id number] [address] [place] [phone] SP Jul, SP [facility] [address] [facility] [id number] [address] [place] [phone] SP Jul, SP [facility] [address] [facility] [id number] [address] [place] [phone] SP Jun, SP [facility] [address] [facility] [id number] [address] [place] [phone] SP Jun, Degenerative disc disease, l umbar M51.36 SP [place] [address] [facility] [id number] [address] [place] [phone] SP Jun, Major depressive disorder, r ecurrent episode, moderate F33.1 ; SPtraumatic stress disorder F43.10 and Obsessive-compulsive disorder, unspecified type F42.9 [place] [address] [id number] [address] [place] [phone] SP Jun, Major depressive disorder, r ecurrent episode, moderate F33.1 ; SPtraumatic stress disorder F43.10 and Obsessive-compulsive disorder, unspecified type F42.9 [place] [address] [facility] [id number] [address] [place] [phone] SP Jun, Major depressive disorder, r ecurrent episode, moderate F33.1 and SPtraumatic stress disorder F43.10 [place] [address] [facility] [id number] [address] [place] [phone] SP May, Degenerative disc disease, l umbar M51.36 SP [place] [address] [facility] [id number] [address] [place] [phone] SP May, SP [place] [address] [facility] [id number] [address] [place] [phone] SP May, Fatigue, unspecified type R5 3.83 ; Type 2 diabetes mellitus with SP E11.65 ; Encounter for immunization Z23 ; Type 2 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 E11.49 ; 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.29 ; 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 and Falls frequently R29.6 [place] [address] [facility] [id number] [address] [place] [phone] SP May, Type 2 diabetes mellitus wit h hyperglycemia E11.65 SP [place] [address] [facility] [id number] [address] [place] [phone] SP May, SP [facility] [address] [facility] [id number] [address] [place] [phone] SP Apr, Degenerative disc disease, l umbar M51.36 ; Chronic pain G89.29 ; SP frequently R29.6 ; Type 2 diabetes mellitus with hyperglycemia E11.65 and Type 2 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 E11.49 [place] [address] [facility] [id number] [address] [place] [phone] SP Apr, SP [place] [address] [facility] [id number] [address] [place] [phone] SP Apr, Major depressive disorder, r ecurrent episode, moderate F33.1 and SPtraumatic stress disorder F43.10 [place] [address] [facility] [id number] [address] [place] [phone] SP Apr, SP [place] [address] [facility] [id number] [place] [phone] SP Apr, Post-traumatic stress disord er F43.10 ; Diabetes E11.9 ; SP E78.5 ; Major depressive disorder, recurrent episode, moderate F33.1 ; Other irritable bowel syndrome K58.8 and Chronic pain G89.29 [place] [address] [facility] [id number] [address] [place] [phone] SP Mar, Chronic pain G89.29 SP [place] [address] [facility] [id number] [address] [place] [phone] SP Feb, Type 2 diabetes mellitus wit h other diabetic neurological SP E11.49 ; 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.29 ; Degenerative disc disease, lumbar M51.36 and Chronic pain G89.29 [place] [address] [facility] [id number] [address] [place] [phone] SP Jan, SP [facility] [address] [facility] [id number] [address] [place] [phone] SP Jan, SP [place] [address] [facility] [id number] [address] [place] [phone] SP Jan, SP [facility] [address] [facility] [id number] [address] [place] [phone] SP Jan, SP [facility] [address] [facility] [id number] [address] [place] [phone] SP Jan, SP [facility] [address] [facility] [id number] [address] [place] [phone] SP Jan, SP [facility] [address] [facility] [id number] [address] [place] [phone] SP Jan, Slurred speech R47.81 ; Atax ia R27.0 ; Left arm weakness R29.898 SP Type 2 diabetes mellitus with hyperglycemia E11.65 and Type 2 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 E11.49 [place] [address] [facility] [id number] [address] [place] [phone] SP Jan, SP [facility] [address] [facility] [id number] [address] [place] [phone] SP Jan, Type 2 diabetes mellitus wit h hyperglycemia E11.65 and SP vomiting with nausea, unspecified vomiting type R11.2 [place] [address] [place] [id number] [address] [place] [phone] SP Dec, CAD (coronary artery disease ) I25.10 and Atypical chest pain SP [facility] [address] [facility] [id number] [address] [place] [phone] SP Dec, SP [facility] [address] [facility] [id number] [address] [place] [phone] SP Dec, Diabetes E11.9 ; Type 2 diab etes mellitus with hyperglycemia SP and Intractable vomiting with nausea, unspecified vomiting type R11.2 [facility] [address] [facility] [id number] [address] [place] [phone] SP Dec, Chronic pain G89.29 SP [facility] [address] [facility] [id number] [address] [place] [phone] SP November, SP [facility] [address] [id number] [address] [place] [phone] SP November, Diabetes E11.9 ; CAD (trinidad ry artery disease) I25.10 ; Atypical SP pain R07.89 ; Type 2 diabetes mellitus with hyperglycemia E11.65 ; 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.29 ; 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.4 and Chronic pain G89.29 [facility] [address] [id number] [address] [place] [phone] SP Oct, SP [facility] [address] [id number] [address] [place] [phone] SP Oct, Chronic pain G89.29 SP [facility] [address] [facility] [id number] [address] [place] [phone] SP Sep, Diabetes E11.9 SP [facility] [address] [facility] [id number] [address] [place] [phone] SP Sep, Chronic pain G89.29 SP [facility] [address] [id number] [address] [place] [phone] SP Sep, SP [facility] [address] [facility] [id number] [address] [place] [phone] SP Sep, Falls frequently R29.6 ; Elier g term 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.4 SP Type 2 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 E11.49 [facility] [address] [facility] [id number] [address] [place] [phone] SP Sep, SP [facility] [address] [facility] [id number] [address] [place] [phone] SP Sep, Diabetes E11.9 [facility] [address] [facility] [id number] [address] [place] [phone] SP Aug, [facility] [address] [facility] [id number] [address] [place] [phone] SP Aug, Chronic pain G89.29 SP [facility] [address] [facility] [id number] [address] [place] [phone] SP Aug, SP [facility] [address] [facility] [id number] [address] [place] [phone] SP Aug, Chronic pain G89.29 SP [facility] [address] [facility] [id number] [address] [place] [phone] SP Jul, SP [facility] [address] [facility] [id number] [address] [place] [phone] SP Jul, Diabetes E11.9 and Type 2 di abetes mellitus with other diabetic SP complication E11.29 [facility] [address] [facility] [id number] [address] [place] [phone] SP Jul, Type 2 diabetes mellitus wit h other diabetic kidney complication SP [facility] [address] [facility] [id number] [address] [place] [phone] SP Jul, SP [facility] [address] [facility] [id number] [address] [place] [phone] SP Jul, Chronic pain G89.29 SP [facility] [address] [facility] [id number] [address] [place] [phone] SP Jun, Diabetes E11.9 SP [facility] [address] [facility] [id number] [address] [place] [phone] SP Jun, Chronic pain G89.29 SP [facility] [address] [facility] [id number] [address] [place] [phone] SP Jun, Diabetes E11.9 ; Atypical ch est pain R07.89 ; 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 current SP of insulin Z79.4 ; 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.29 ; Type 2 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 E11.49 ; History of pulmonary embolism Z86.711 and History of CVA (cerebrovascular accident) Z86.73 [facility] [address] [facility] [id number] [address] [place] [phone] SP May, SP [facility] [address] [facility] [id number] [address] [place] [phone] SP May, Chronic pain G89.29 SP [facility] [address] [facility] [id number] [address] [place] [phone] SP Apr, Chronic pain G89.29 SP [facility] [address] [facility] [id number] [address] [place] [phone] SP Apr, SP [facility] [address] [facility] [id number] [address] [place] [phone] SP Mar, Chronic pain G89.29 SP [facility] [address] [facility] [id number] [address] [place] [phone] SP Mar, Diabetes E11.9 SP [place] [id number] [place] [phone] SP Mar, SP [place] [address] [place] [id number] [address] [place] [phone] SP Mar, Degenerative disc disease, l umbar M51.36 SP [place] [address] [place] [id number] [address] [place] [phone] SP Feb, Diabetes E11.9 SP [place] [id number] [place] [phone] SP Feb, Diabetes E11.9 SP [place] [address] [place] [id number] [address] [place] [phone] SP Feb, Diabetes E11.9 ; HTN (hypert ension) I10 ; Diabetic neuropathy SP and Leg cramps R25.2 [place] [address] [place] [id number] [address] [place] [phone] SP Feb, Sprain of calcaneofibular li gament of right ankle, subsequent SP S93.411D ; Major depressive disorder, recurrent episode, moderate F33.1 ; Diabetes E11.9 ; Hyperlipidemia E78.5 ; Post-traumatic stress disorder F43.10 and Other irritable bowel syndrome K58.8 [facility] [address] [id number] [address] [place] [phone] SP 14 Feb, 2017 Major depressive disorder, r ecurrent episode, moderate F33.1 ; SPtraumatic stress disorder F43.10 and Obsessive-compulsive disorder, unspecified type F42.9 [facility] [address] [id number] [address] [place] [phone] SP Feb, SP [facility] [address] [id number] [address] [place] [phone] SP Feb, Post-traumatic stress disord er F43.10 and Major depressive SP recurrent, moderate F33.1 [facility] [address] [facility] [id number] [address] [place] [phone] SP Feb, Diabetes E11.9 SP [facility] [address] [facility] [id number] [address] [place] [phone] SP Feb, Degenerative disc disease, l umbar M51.36 SP [facility] [address] [facility] [id number] [address] [place] [phone] SP Feb, Post-traumatic stress disord er F43.10 and Major depressive SP recurrent, moderate F33.1 [facility] [address] [facility] [id number] [address] [place] [phone] SP Feb, SP [facility] [address] [facility] [id number] [address] [place] [phone] SP Feb, Diabetes E11.9 SP [facility] [address] [facility] [id number] [address] [place] [phone] SP Jan, Diabetes E11.9 SP [facility] [address] [facility] [id number] [address] [place] [phone] SP Jan, Post-traumatic stress disord er F43.10 and Major depressive SP recurrent, moderate F33.1 [facility] [address] [facility] [id number] [address] [place] [phone] SP Jan, Diabetes E11.9 SP [facility] [address] [id number] [address] [place] [phone] SP Jan, Diabetes E11.9 SP [facility] [address] [facility] [id number] [address] [place] [phone] SP Jan, SP [facility] [address] [facility] [id number] [address] [place] [phone] SP Jan, SP [facility] [address] [facility] [id number] [address] [place] [phone] SP Jan, Post-traumatic stress disord er F43.10 and Major depressive SP recurrent, moderate F33.1 [facility] [address] [facility] [id number] [address] [place] [phone] SP Jan, SP [facility] [address] [facility] [id number] [address] [place] [phone] SP Jan, Major depressive disorder, r ecurrent episode, moderate F33.1 ; SPtraumatic stress disorder F43.10 and Obsessive-compulsive disorder, unspecified type F42.9 [facility] [address] [facility] [id number] [address] [place] [phone] SP Jan, SP [facility] [address] [facility] [id number] [address] [place] [phone] SP Jan, Diabetes E11.9 SP [facility] [address] [facility] [id number] [address] [place] [phone] SP Jan, SP [facility] [address] [facility] [id number] [address] [place] [phone] SP Jan, Sprain of calcaneofibular li gament of right ankle, subsequent SP S93.411D [facility] [address] [facility] [id number] [address] [place] [phone] SP Jan, Post-traumatic stress disord er F43.10 and Major depressive SP recurrent, moderate F33.1 [facility] [address] [id number] [address] [place] [phone] SP Jan, Diabetes E11.9 SP [place] [address] [id number] [address] [place] [phone] SP 16 Dec, 2016 Major depressive disorder, r ecurrent episode, moderate F33.1 ; SPtraumatic stress disorder F43.10 and Obsessive-compulsive disorder, unspecified type F42.9 [place] [address] [id number] [address] [place] [phone] SP 15 Dec, 2016 SP [place] [address] [id number] [address] [place] [phone] SP 14 Dec, 2016 Sprain of calcaneofibular li gament of right ankle, subsequent SP S93.411D [place] [address] [facility] [id number] [address] [place] [phone] SP 13 Dec, 2016 Post-traumatic stress disord er F43.10 and Major depressive SP recurrent, moderate F33.1 [place] [address] [id number] [address] [place] [phone] SP 13 Dec, 2016 Sprain of calcaneofibular li gament of right ankle, subsequent SP S93.411D [place] [address] [id number] [address] [place] [phone] SP Dec, Hyperlipidemia E78.5 SP [place] [address] [facility] [id number] [address] [place] [phone] SP Dec, SP [place] [address] [id number] [address] [place] [phone] SP Dec, Diabetes E11.9 ; Diabetic ne uropathy E11.40 ; Degenerative disc SP lumbar M51.36 ; Hyperlipidemia E78.5 ; Insomnia G47.00 ; CAD (coronary artery disease) I25.10 ; Major depressive disorder, recurrent, moderate F33.1 ; Post- traumatic stress disorder F43.10 and Other irritable bowel syndrome K58.8 [place] [address] [id number] [address] [place] [phone] SP November, Diabetic neuropathy E11.40 a nd Hyperlipidemia E78.5 SP [facility] [address] [phone] SP November, Degenerative disc disease, l umbar M51.36 SP [facility] [address] [place] [id number] [place] [phone] SP Oct, [facility] [address] [place] [id number] [place] [phone] SP Oct, Degenerative disc disease, l umbar M51.36 SP [place] [address] [phone] SP Sep, Degenerative disc disease, l umbar M51.36 and HTN (hypertension) [place] [address] [address] SP Sep, Diabetic neuropathy E11.40 ; HTN (hypertension) I10 ; SP disc disease, lumbar M51.36 ; Hyperlipidemia E78.5 ; Insomnia G47.00 ; CAD (coronary artery disease) I25.10 and Diabetes E11.9 [place] [address] [phone] SP Aug, [facility] [address] [phone] SP Aug, Type 2 diabetes mellitus wit h hyperglycemia E11.65 SP [facility] [address] [place] [id number] [place] [phone] SP Aug, [facility] [address] [phone] SP Jul, [facility] [address] [place] [id number] [place] [phone] SP Jul, [facility] [address] [place] [id number] [place] [phone] SP Jun, SP [facility] [address] [facility] [id number] [address] [place] [phone] SP Jun, SP [facility] [address] [facility] [id number] [address] [place] [phone] SP Jun, SP [facility] [address] [facility] [id number] [address] [place] [phone] SP Jun, SP [facility] [address] [facility] [id number] [address] [place] [phone] SP May, Major depressive disorder, r ecurrent episode, moderate F33.1 and SPtraumatic stress disorder F43.10 [place] [address] [facility] [id number] [address] [place] [phone] SP May, Major depressive disorder, r ecurrent episode, moderate F33.1 and SPtraumatic stress disorder F43.10 [place] [address] [facility] [id number] [address] [place] [phone] SP May, Diabetes E11.9 ; Diabetic ne uropathy E11.40 ; HTN (hypertension) SP ; Gastritis K29.70 ; Hyperlipidemia E78.5 ; Insomnia G47.00 and Major depressive disorder, recurrent, moderate F33.1 [facility] [address] [facility] [id number] [address] [place] [phone] SP May, Major depressive disorder, r ecurrent episode, moderate F33.1 SP [facility] [address] [facility] [id number] [address] [place] [phone] SP Apr, SP [facility] [address] [facility] [id number] [address] [place] [phone] SP Apr, Major depressive disorder, r ecurrent episode, moderate F33.1 and SPtraumatic stress disorder F43.10 [facility] [address] [facility] [id number] [address] [place] [id number] SP Apr, Diabetes E11.9 ; Diabetic ne uropathy E11.40 ; Degenerative disc SP lumbar M51.36 ; HTN (hypertension) I10 ; Hyperlipidemia E78.5 ; Chronic pain G89.29 ; CAD (coronary artery disease) I25.10 and Major depressive disorder, recurrent, moderate F33.1 [place] [address] [place] [id number] [place] [id number] SP Apr, Major depressive disorder, r ecurrent episode, moderate F33.1 and SPtraumatic stress disorder F43.10 [place] [address] [id number] SP Apr, Major depressive disorder, r ecurrent episode, moderate F33.1 and SPtraumatic stress disorder F43.10 [place] [address] [phone] SP Apr, Major depressive disorder, r ecurrent episode, moderate F33.1 and SP episodic mood disorder F39 [place] [address] [id number] SP Apr, Chronic pain G89.29 ; Diabet ic neuropathy E11.40 ; HTN SP I10 ; Insomnia G47.00 ; CAD (coronary artery disease) I25.10 ; Hyperlipidemia E78.5 ; Degenerative disc disease, lumbar M51.36 ; Diabetes E11.9 and Gastritis K29.70 [place] [address] [phone] SP Sep, SP [place] [address] [phone] SP Aug, SP [place] [address] [place] [id number] [place] [phone] SP Jul, Major depressive disorder, r ecurrent episode, moderate F33.1 SP [place] [address] [place] [id number] [place] [phone] SP Jul, Unspecified episodic mood di sorder F39 SP [place] [address] [place] [id number] [place] [phone] SP Jul, SP [facility] [address] [facility] [id number] [address] [place] [phone] SP Jul, SP [facility] [address] [place] [id number] [place] [phone] SP Jul, SP [facility] [address] [place] [id number] [place] [phone] SP Jul, Type 2 diabetes mellitus wit h hyperglycemia E11.65 ; Diabetic SP E11.40 ; Degenerative disc disease, lumbar M51.36 ; HTN (hypertension) I10 ; Gastritis K29.70 ; Hyperlipidemia E78.5 and CAD (coronary artery disease) I25.10 [place] [address] [place] [id number] [place] [phone] SP Jul, Severe episode of recurrent major depressive disorder, without SP features F33.2 [place] [address] [phone] SP Jul, [facility] [address] [phone] SP Jun, [place] [address] [phone] SP Jun, Diabetes E11.9 ; Diabetic ne uropathy E11.40 ; Degenerative disc SP lumbar M51.36 ; HTN (hypertension) I10 ; Gastritis K29.70 ; Hyperlipidemia E78.5 ; Unspecified episodic mood disorder F39 ; Depression F32.9 and CAD (coronary artery disease) I25.10 [place] [address] [place] [id number] [place] [phone] SP Jun, [place] [address] [phone] SP Jun, [facility] [address] [place] [id number] [place] [phone] SP Jun, Diabetes E11.9 ; Diabetic ne uropathy E11.40 ; Degenerative disc SP lumbar M51.36 ; HTN (hypertension) I10 ; Gastritis K29.70 ; Chronic pain G89.29 ; Insomnia G47.00 and Unspecified episodic mood disorder F39 [facility] [address] [facility] [id number] [address] [place] [phone] SP May, Diabetic neuropathy E11.40 ; Degenerative disc disease, lumbar SP ; HTN (hypertension) I10 ; Gastritis K29.70 ; Hyperlipidemia E78.5 ; Chronic pain G89.29 ; Insomnia G47.00 ; Unspecified episodic mood disorder F39 ; Diabetes E11.9 ; CAD (coronary artery disease) I25.10 and H/O Gram positive sepsis Z86.19 [facility] [address] [facility] [id number] [address] [place] [phone] SP May, SP [facility] [address] [facility] [id number] [address] [place] [phone] SP May, SP [facility] [address] [facility] [id number] [address] [place] [phone] SP May, SP [facility] [address] [facility] [id number] [address] [place] [phone] SP May, SP [facility] [address] [facility] [id number] [address] [place] [phone] SP May, UTI (urinary tract infection ) N39.0 ; Diabetes E11.9 ; Diabetic SP E11.40 ; Hyperlipidemia E78.5 and Chronic pain G89.29 [place] [address] [facility] [id number] [address] [place] [phone] SP May, Insomnia, unspecified G47.00 and Chronic pain G89.29 SP [facility] [address] [facility] [id number] [address] [place] [phone] SP May, SP [facility] [address] [facility] [id number] [address] [place] [phone] SP May, SP [facility] [address] [facility] [id number] [address] [place] [phone] SP May, SP [place] [address] [facility] [id number] [address] [place] [phone] SP Apr, Insomnia, unspecified G47.00 ; Chronic pain G89.29 and SP episodic mood disorder F39 [facility] [address] [facility] [id number] [address] [place] [phone] SP Apr, Unspecified episodic mood di sorder F39 SP [facility] [address] [place] [id number] [place] [phone] SP Apr, Major depression F32.9 SP [place] [address] [facility] [id number] [place] [phone] SP Apr, SP [place] [address] [place] [id number] [place] [phone] SP Apr, Diabetes E11.9 ; Diabetic ne uropathy E11.40 ; Degenerative disc SP lumbar M51.36 ; HTN (hypertension) I10 ; Gastritis K29.70 ; Hyperlipidemia E78.5 ; Chronic pain G89.29 and Insomnia G47.00 [place] [address] [place] [id number] [place] [phone] SP Mar, SP [place] [address] [phone] SP Mar, SP [facility] [address] [place] [id number] [place] [phone] SP Mar, SP [facility] [address] [place] [id number] [place] [phone] SP Mar, Diabetes mellitus 250.00 ; D iabetic neuropathy 250.60 ; CAD SP artery disease) 414.00 ; Degenerative disc disease, lumbar 722.52 ; Gastritis 535.50 and Insomnia 780.52 [place] [address] [place] [id number] [place] [phone] SP Mar, Diabetes mellitus 250.00 ; D egenerative disc disease, lumbar SP ; Essential hypertension 401.9 ; Gastritis 535.50 and Chronic pain 338.29 [place] [address] [facility] [id number] [address] [place] [phone] SP Feb, SP [facility] [address] [phone] SP Feb, SP [facility] [address] [facility] [id number] [place] [phone] SP Jan, SP [facility] [address] [phone] SP Jan, Diabetes mellitus 250.00 ; D iabetic neuropathy 250.60 ; SP disc disease, lumbar 722.52 ; CAD (coronary artery disease) 414.00 ; Essential hypertension 401.9 ; Gastritis 535.50 ; Hyperlipidemia 272.4 and Distal end of ulna fracture, closed 813.43 [facility] [address] [phone] SP Dec, Wrist pain 719.43 and Diabet es mellitus 250.00 SP [facility] [address] [facility] [id number] [place] [phone] SP May, SP [facility] [address] [phone] SP Dec, SP [facility] [address] [phone] SP November, SP [facility] [address] [phone] SP Oct, SP [facility] [address] [place] [id number] [place] [phone] SP Sep, SP [facility] [address] [phone] SP Sep, SP [facility] [address] [place] [id number] [place] [phone] SP Jun, SP [facility] [address] [phone] SP Jun, SP [facility] [address] [id number] [address] [place] [phone] SP 14 Jun, 2009 SP [facility] [address] [id number] [address] [place] [phone] SP Jun, SP [facility] [address] [id number] [address] [place] [phone] SP Jun, SP [facility] [address] [id number] [address] [place] [phone] SP Jun, SP [facility] [address] [facility] [id number] [address] [place] [phone] SP Jun, SP [facility] [address] [id number] [address] [place] [phone] SP May, SP [facility] [address] [id number] [address] [place] [phone] SP May, SP [facility] [address] [id number] [address] [place] [phone] SP May, SP [facility] [address] [id number] [address] [place] [phone] SP May, SP [facility] [address] [id number] [address] [place] [phone] SP Apr, SP [facility] [address] [id number] [address] [place] [phone] SP Apr, SP [facility] [address] [id number] [address] [place] [phone] SP Apr, SP [facility] [address] [facility] [id number] [address] [place] [phone] SP 16 Mar, 2009 SP [facility] [address] [facility] [id number] [address] [place] [phone] SP Dec, SP IMMUNIZATIONS No Known Immunizations SOCIAL HISTORY Never Assessed REASON FOR VISIT Controlled Med Refill 07/06 PLAN OF CARE VITAL SIGNS MEDICATIONS Medication Instructions Dosage Frequency Start Date End Date Duration S tatus POS Hydrocodone-Acetaminophen 10-325 MG Orally 3 times a day 1 tablet a s needed 8h SP Jun, 2018 28 days Active SP RESULTS No [...]
--- OUTSIDE RECORDS SUMMARY | 2019-06-14 02:05 | XMS REPORT ---
Author Author AMINA ARECHIGA POS Organization [facility] SP Address [address] [place] [address] SP Care Team Providers Care Novelties Sales Representative Name Role Phone POS AMINA ARECHIGA Unavailable SP PROBLEMS Type Condition ICD9-CM Code [id number] Code Onset Dates Condition S tatus SNOMED POS Problem Type 2 diabetes mellitus with hyperglycemia E11.65 Active POS Problem Major depressive disorder, recurrent episode, moderate F33.1 Active SP Problem Obsessive-compulsive disorder, unspecified type F4 2.9 Active SP Problem Ataxia R27.0 Active [id number] SP Problem Falls frequently R29.6 Active 279 595367 SP Problem Type 2 diabetes mellitus with other diab etic neurological complication SP E11.49 Active 65341241 SP Problem snf 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.4 Active 475957636 SP Problem History of pulmonary embolism Z86.711 Active 776463917 SP Problem Type 2 diabetes mellitus with other diabetic kid allen complication SP Active 51311631 SP Problem Insomnia G47.00 Active 099492390 SP Problem Degenerative disc disease, lumbar M51.36 Active 76301423 SP Problem HTN (hypertension) I10 Active 3 7586374 SP Problem Hyperlipidemia E78.5 Active 56595 004 SP Problem CAD (coronary artery disease) I25.10 Active 25257594 SP Problem Chronic pain G89.29 Active 0000283 1 SP Problem Post-traumatic stress disorder F43.10 Active 79345055 SP ALLERGIES No Information ENCOUNTERS Encounter Location Date Diagnosis POS [facility] [address] [facility] [id number] [address] [place] [phone] SP Jul, SP [facility] [address] [facility] [id number] [address] [place] [phone] SP Jul, SP [facility] [address] [facility] [id number] [address] [place] [phone] SP Jun, SP [facility] [address] [facility] [id number] [address] [place] [phone] SP Jun, Major depressive disorder, r ecurrent episode, moderate F33.1 ; SPtraumatic stress disorder F43.10 and Obsessive-compulsive disorder, unspecified type F42.9 [facility] [address] [facility] [id number] [address] [place] [phone] SP Jun, Major depressive disorder, r ecurrent episode, moderate F33.1 ; SPtraumatic stress disorder F43.10 and Obsessive-compulsive disorder, unspecified type F42.9 [place] [address] [address] [facility] [id number] [address] [place] [phone] SP Jun, Major depressive disorder, r ecurrent episode, moderate F33.1 and SPtraumatic stress disorder F43.10 [place] [address] [facility] [id number] [address] [place] [phone] SP May, Degenerative disc disease, l umbar M51.36 SP [place] [address] [address] [facility] [id number] [address] [place] [phone] SP May, SP [place] [address] [address] [facility] [id number] [address] [place] [phone] SP May, Fatigue, unspecified type R5 3.83 ; Type 2 diabetes mellitus with SP E11.65 ; Encounter for immunization Z23 ; Type 2 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 E11.49 ; 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.29 ; 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.4 and Falls frequently R29.6 [facility] [address] [facility] [id number] [address] [place] [phone] SP May, Type 2 diabetes mellitus wit h hyperglycemia E11.65 SP [facility] [address] [facility] [id number] [address] [place] [phone] SP May, SP [place] [address] [facility] [id number] [address] [place] [phone] SP Apr, Degenerative disc disease, l umbar M51.36 ; Chronic pain G89.29 ; SP frequently R29.6 ; Type 2 diabetes mellitus with hyperglycemia E11.65 and Type 2 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 E11.49 [facility] [address] [id number] [address] [place] [phone] SP Apr, SP [facility] [address] [id number] [address] [place] [phone] SP Apr, Major depressive disorder, r ecurrent episode, moderate F33.1 and SPtraumatic stress disorder F43.10 [facility] [address] [id number] [address] [place] [phone] SP Apr, SP [facility] [address] [facility] [id number] [address] [place] [phone] SP Apr, Post-traumatic stress disord er F43.10 ; Diabetes E11.9 ; SP E78.5 ; Major depressive disorder, recurrent episode, moderate F33.1 ; Other irritable bowel syndrome K58.8 and Chronic pain G89.29 [facility] [address] [facility] [id number] [address] [place] [phone] SP Mar, Chronic pain G89.29 SP [facility] [address] [facility] [id number] [address] [place] [phone] SP Feb, Type 2 diabetes mellitus wit h other diabetic neurological SP E11.49 ; Type 2 diabetes mellitus with other diabetic kidney complication E11.29 ; Degenerative disc disease, lumbar M51.36 and Chronic pain G89.29 [facility] [address] [id number] [address] [place] [phone] SP Jan, SP [facility] [address] [facility] [id number] [address] [place] [phone] SP Jan, SP [facility] [address] [id number] [address] [place] [phone] SP Jan, SP [facility] [address] [facility] [id number] [address] [place] [phone] SP Jan, SP [facility] [address] [id number] [address] [place] [phone] SP Jan, SP [facility] [address] [facility] [id number] [address] [place] [phone] SP Jan, SP [facility] [address] [facility] [id number] [address] [place] [phone] SP Jan, Slurred speech R47.81 ; Atax ia R27.0 ; Left arm weakness R29.898 SP Type 2 diabetes mellitus with hyperglycemia E11.65 and Type 2 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 E11.49 [facility] [address] [facility] [id number] [address] [place] [phone] SP Jan, SP [facility] [address] [facility] [id number] [address] [place] [phone] SP Jan, Type 2 diabetes mellitus wit h hyperglycemia E11.65 and SP vomiting with nausea, unspecified vomiting type R11.2 [facility] [address] [id number] [address] [place] [phone] SP Dec, CAD (coronary artery disease ) I25.10 and Atypical chest pain SP [facility] [address] [facility] [id number] [address] [place] [phone] SP Dec, SP [facility] [address] [facility] [id number] [address] [place] [phone] SP Dec, Diabetes E11.9 ; Type 2 diab etes mellitus with hyperglycemia SP and Intractable vomiting with nausea, unspecified vomiting type R11.2 [facility] [address] [id number] [address] [place] [phone] SP Dec, Chronic pain G89.29 SP [facility] [address] [facility] [id number] [address] [place] [phone] SP November, SP [facility] [address] [facility] [id number] [address] [place] [phone] SP November, Diabetes E11.9 ; CAD (trinidad ry artery disease) I25.10 ; Atypical SP pain R07.89 ; Type 2 diabetes mellitus with hyperglycemia E11.65 ; Type 2 diabetes mellitus with other diabetic kidney complication E11.29 ; snf 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.4 and Chronic pain G89.29 [facility] [address] [facility] [id number] [address] [place] [phone] SP Oct, SP [facility] [address] [facility] [id number] [address] [place] [phone] SP Oct, Chronic pain G89.29 SP [facility] [address] [facility] [id number] [address] [place] [phone] SP Sep, Diabetes E11.9 SP [facility] [address] [facility] [id number] [address] [place] [phone] SP Sep, Chronic pain G89.29 SP [facility] [address] [facility] [id number] [address] [place] [phone] SP Sep, SP [facility] [address] [facility] [id number] [address] [place] [phone] SP Sep, Falls frequently R29.6 ; Elier g term current use of insulin Z79.4 SP Type 2 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 E11.49 [facility] [address] [facility] [id number] [address] [place] [phone] SP Sep, SP [facility] [address] [facility] [id number] [address] [place] [phone] SP Sep, Diabetes E11.9 [facility] [address] [facility] [id number] [address] [place] [phone] SP Aug, SP [facility] [address] [facility] [id number] [address] [place] [phone] SP Aug, Chronic pain G89.29 [facility] [address] [facility] [id number] [address] [place] [phone] SP Aug, [place] [address] [facility] [id number] [address] [place] [phone] SP Aug, Chronic pain G89.29 SP [facility] [address] [id number] [address] [place] [phone] SP Jul, SP [facility] [address] [facility] [id number] [address] [place] [phone] SP Jul, Diabetes E11.9 and Type 2 di abetes mellitus with other diabetic SP complication E11.29 [facility] [address] [facility] [id number] [address] [place] [phone] SP Jul, Type 2 diabetes mellitus wit h other diabetic kidney complication SP [facility] [address] [facility] [id number] [address] [place] [phone] SP Jul, SP [facility] [address] [facility] [id number] [address] [place] [phone] SP Jul, Chronic pain G89.29 SP [facility] [address] [facility] [id number] [address] [place] [phone] SP Jun, Diabetes E11.9 SP [facility] [address] [facility] [id number] [address] [place] [phone] SP Jun, Chronic pain G89.29 SP [facility] [address] [facility] [id number] [address] [place] [phone] SP Jun, Diabetes E11.9 ; Atypical ch est pain R07.89 ; 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 of 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 Z79.4 ; Type 2 diabetes mellitus with other diabetic kidney complication E11.29 ; Type 2 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 E11.49 ; History of pulmonary embolism Z86.711 and History of CVA (cerebrovascular accident) Z86.73 [facility] [address] [facility] [id number] [address] [place] [phone] SP May, SP [facility] [address] [facility] [id number] [address] [place] [phone] SP May, Chronic pain G89.29 SP [facility] [address] [facility] [id number] [address] [place] [phone] SP Apr, Chronic pain G89.29 SP [facility] [address] [facility] [id number] [address] [place] [phone] SP Apr, SP [facility] [address] [facility] [id number] [address] [place] [phone] SP Mar, Chronic pain G89.29 SP [facility] [address] [facility] [id number] [address] [place] [phone] SP 18 Mar, 2017 Diabetes E11.9 SP [place] [address] [address] [facility] [id number] [place] [phone] SP Mar, SP [place] [address] [address] [facility] [id number] [address] [place] [phone] SP Mar, Degenerative disc disease, l umbar M51.36 SP [place] [address] [address] [place] [id number] [address] [place] [phone] SP Feb, Diabetes E11.9 SP [place] [address] [address] [place] [id number] [place] [phone] SP Feb, Diabetes E11.9 SP [place] [address] [address] [facility] [id number] [address] [place] [phone] SP 16 Feb, 2017 Diabetes E11.9 ; HTN (hypert ension) I10 ; Diabetic neuropathy SP and Leg cramps R25.2 [place] [address] [address] [place] [id number] [address] [place] [phone] SP 15 Feb, 2017 Sprain of calcaneofibular li gament of right ankle, subsequent SP S93.411D ; Major depressive disorder, recurrent episode, moderate F33.1 ; Diabetes E11.9 ; Hyperlipidemia E78.5 ; Post-traumatic stress disorder F43.10 and Other irritable bowel syndrome K58.8 [place] [address] [address] [facility] [id number] [address] [place] [phone] SP Feb, Major depressive disorder, r ecurrent episode, moderate F33.1 ; SPtraumatic stress disorder F43.10 and Obsessive-compulsive disorder, unspecified type F42.9 [facility] [address] [id number] [address] [place] [phone] SP Feb, SP [facility] [address] [facility] [id number] [address] [place] [phone] SP Feb, Post-traumatic stress disord er F43.10 and Major depressive SP recurrent, moderate F33.1 [facility] [address] [id number] [address] [place] [phone] SP Feb, Diabetes E11.9 SP [facility] [address] [facility] [id number] [address] [place] [phone] SP Feb, Degenerative disc disease, l umbar M51.36 SP [facility] [address] [facility] [id number] [address] [place] [phone] SP Feb, Post-traumatic stress disord er F43.10 and Major depressive SP recurrent, moderate F33.1 [facility] [address] [id number] [address] [place] [phone] SP Feb, SP [facility] [address] [facility] [id number] [address] [place] [phone] SP Feb, Diabetes E11.9 SP [facility] [address] [facility] [id number] [address] [place] [phone] SP Jan, Diabetes E11.9 SP [facility] [address] [facility] [id number] [address] [place] [phone] SP Jan, Post-traumatic stress disord er F43.10 and Major depressive SP recurrent, moderate F33.1 [facility] [address] [facility] [id number] [address] [place] [phone] SP Jan, Diabetes E11.9 SP [facility] [address] [facility] [id number] [address] [place] [phone] SP Jan, Diabetes E11.9 SP [facility] [address] [id number] [address] [place] [phone] SP Jan, SP [facility] [address] [id number] [address] [place] [phone] SP Jan, SP [facility] [address] [facility] [id number] [address] [place] [phone] SP Jan, Post-traumatic stress disord er F43.10 and Major depressive SP recurrent, moderate F33.1 [facility] [address] [id number] [address] [place] [phone] SP Jan, SP [facility] [address] [id number] [address] [place] [phone] SP Jan, Major depressive disorder, r ecurrent episode, moderate F33.1 ; SPtraumatic stress disorder F43.10 and Obsessive-compulsive disorder, unspecified type F42.9 [facility] [address] [id number] [address] [place] [phone] SP Jan, SP [facility] [address] [id number] [address] [place] [phone] SP Jan, Diabetes E11.9 SP [facility] [address] [facility] [id number] [address] [place] [phone] SP Jan, SP [facility] [address] [facility] [id number] [address] [place] [phone] SP Jan, Sprain of calcaneofibular li gament of right ankle, subsequent SP S93.411D [facility] [address] [id number] [address] [place] [phone] SP Jan, Post-traumatic stress disord er F43.10 and Major depressive SP recurrent, moderate F33.1 [facility] [address] [facility] [id number] [address] [place] [phone] SP Jan, Diabetes E11.9 SP [facility] [address] [id number] [address] [place] [phone] SP 16 Dec, 2016 Major depressive disorder, r ecurrent episode, moderate F33.1 ; SPtraumatic stress disorder F43.10 and Obsessive-compulsive disorder, unspecified type F42.9 [facility] [address] [id number] [address] [place] [phone] SP 15 Dec, 2016 SP [facility] [address] [id number] [address] [place] [phone] SP 14 Dec, 2016 Sprain of calcaneofibular li gament of right ankle, subsequent SP S93.411D [place] [address] [id number] [address] [place] [phone] SP 13 Dec, 2016 Post-traumatic stress disord er F43.10 and Major depressive SP recurrent, moderate F33.1 [place] [address] [id number] [address] [place] [phone] SP Dec, Sprain of calcaneofibular li gament of right ankle, subsequent SP S93.411D [place] [address] [id number] [address] [place] [phone] SP Dec, Hyperlipidemia E78.5 SP [place] [address] [id number] [address] [place] [phone] SP Dec, SP [place] [address] [id number] [address] [place] [phone] SP Dec, Diabetes E11.9 ; Diabetic ne uropathy E11.40 ; Degenerative disc SP lumbar M51.36 ; Hyperlipidemia E78.5 ; Insomnia G47.00 ; CAD (coronary artery disease) I25.10 ; Major depressive disorder, recurrent, moderate F33.1 ; Post- traumatic stress disorder F43.10 and Other irritable bowel syndrome K58.8 [place] [address] [id number] [address] [place] [phone] SP November, Diabetic neuropathy E11.40 a nd Hyperlipidemia E78.5 SP [place] [address] [id number] [address] [place] [phone] SP November, Degenerative disc disease, l umbar M51.36 SP [facility] [address] [facility] [id number] [address] [place] [phone] SP Oct, SP [facility] [address] [facility] [id number] [address] [place] [phone] SP Oct, Degenerative disc disease, l umbar M51.36 SP [facility] [address] [facility] [id number] [address] [place] [phone] SP Sep, Degenerative disc disease, l umbar M51.36 and HTN (hypertension) SP [facility] [address] [facility] [id number] [place] [phone] SP Sep, Diabetic neuropathy E11.40 ; HTN (hypertension) I10 ; SP disc disease, lumbar M51.36 ; Hyperlipidemia E78.5 ; Insomnia G47.00 ; CAD (coronary artery disease) I25.10 and Diabetes E11.9 [facility] [address] [facility] [id number] [address] [place] [phone] SP Aug, SP [facility] [address] [facility] [id number] [place] [phone] SP Aug, Type 2 diabetes mellitus wit h hyperglycemia E11.65 SP [facility] [address] [place] [id number] [address] [place] [phone] SP Aug, SP [facility] [address] [facility] [id number] [address] [place] [phone] SP Jul, SP [facility] [address] [facility] [id number] [address] [place] [phone] SP Jul, SP [facility] [address] [facility] [id number] [address] [place] [phone] SP Jun, SP [facility] ([facility] [address] [place] [id number] [address] [place] [phone] SP Jun, SP [facility] ([facility] [address] [place] [id number] [place] [phone] SP Jun, SP [place] [address] [address] [facility] [id number] [address] [place] [phone] SP Jun, SP [facility] ([facility] [address] [facility] [id number] [address] [place] [phone] SP May, Major depressive disorder, r ecurrent episode, moderate F33.1 and SPtraumatic stress disorder F43.10 [place] [address] [address] [facility] [id number] [address] [place] [phone] SP May, Major depressive disorder, r ecurrent episode, moderate F33.1 and SPtraumatic stress disorder F43.10 [place] [address] [address] [facility] [id number] [address] [place] [phone] SP May, Diabetes E11.9 ; Diabetic ne uropathy E11.40 ; HTN (hypertension) SP ; Gastritis K29.70 ; Hyperlipidemia E78.5 ; Insomnia G47.00 and Major depressive disorder, recurrent, moderate F33.1 [place] [address] [address] [facility] [id number] [address] [place] [phone] SP May, Major depressive disorder, r ecurrent episode, moderate F33.1 SP [place] [address] [address] [facility] [id number] [address] [place] [phone] SP Apr, SP [place] [address] [address] [facility] [id number] [address] [place] [phone] SP Apr, Major depressive disorder, r ecurrent episode, moderate F33.1 and SPtraumatic stress disorder F43.10 [place] [address] [address] [facility] [id number] [address] [place] [phone] SP Apr, Diabetes E11.9 ; Diabetic ne uropathy E11.40 ; Degenerative disc SP lumbar M51.36 ; HTN (hypertension) I10 ; Hyperlipidemia E78.5 ; Chronic pain G89.29 ; CAD (coronary artery disease) I25.10 and Major depressive disorder, recurrent, moderate F33.1 [place] [address] [address] [facility] [id number] [address] [place] [phone] SP Apr, Major depressive disorder, r ecurrent episode, moderate F33.1 and SPtraumatic stress disorder F43.10 [facility] [address] [facility] [id number] [address] [place] [phone] SP Apr, Major depressive disorder, r ecurrent episode, moderate F33.1 and SPtraumatic stress disorder F43.10 [facility] [address] [facility] [id number] [address] [place] [phone] SP Apr, Major depressive disorder, r ecurrent episode, moderate F33.1 and SP episodic mood disorder F39 [id number] [facility] [id number] [address] [place] [phone] SP Apr, Chronic pain G89.29 ; Diabet ic neuropathy E11.40 ; HTN SP I10 ; Insomnia G47.00 ; CAD (coronary artery disease) I25.10 ; Hyperlipidemia E78.5 ; Degenerative disc disease, lumbar M51.36 ; Diabetes E11.9 and Gastritis K29.70 [facility] [address] [facility] [id number] [address] [place] [phone] SP Sep, SP [facility] [address] [facility] [id number] [address] [place] [phone] SP Aug, SP [facility] [address] [facility] [id number] [address] [place] [phone] SP Jul, Major depressive disorder, r ecurrent episode, moderate F33.1 SP [facility] [address] [facility] [id number] [address] [place] [phone] SP Jul, Unspecified episodic mood di sorder F39 SP [facility] [address] [facility] [id number] [address] [place] [phone] SP Jul, SP [facility] [address] [facility] [id number] [address] [place] [phone] SP Jul, SP [facility] [address] [phone] SP Jul, SP [place] [address] [phone] SP Jul, Type 2 diabetes mellitus wit h hyperglycemia E11.65 ; Diabetic SP E11.40 ; Degenerative disc disease, lumbar M51.36 ; HTN (hypertension) I10 ; Gastritis K29.70 ; Hyperlipidemia E78.5 and CAD (coronary artery disease) I25.10 [place] [address] [phone] SP Jul, Severe episode of recurrent major depressive disorder, without SP features F33.2 [place] [address] [phone] SP Jul, SP [place] [address] [phone] SP Jun, SP [place] [address] [phone] SP Jun, Diabetes E11.9 ; Diabetic ne uropathy E11.40 ; Degenerative disc SP lumbar M51.36 ; HTN (hypertension) I10 ; Gastritis K29.70 ; Hyperlipidemia E78.5 ; Unspecified episodic mood disorder F39 ; Depression F32.9 and CAD (coronary artery disease) I25.10 [place] [address] [phone] SP Jun, SP [place] [address] [phone] SP Jun, SP [place] [address] [phone] SP Jun, Diabetes E11.9 ; Diabetic ne uropathy E11.40 ; Degenerative disc SP lumbar M51.36 ; HTN (hypertension) I10 ; Gastritis K29.70 ; Chronic pain G89.29 ; Insomnia G47.00 and Unspecified episodic mood disorder F39 [place] [address] [phone] SP May, Diabetic neuropathy E11.40 ; Degenerative disc disease, lumbar SP ; HTN (hypertension) I10 ; Gastritis K29.70 ; Hyperlipidemia E78.5 ; Chronic pain G89.29 ; Insomnia G47.00 ; Unspecified episodic mood disorder F39 ; Diabetes E11.9 ; CAD (coronary artery disease) I25.10 and H/O Gram positive sepsis Z86.19 [facility] [address] [facility] [id number] [address] [place] [phone] SP May, SP [facility] [address] [facility] [id number] [place] [phone] SP May, SP [facility] [address] [facility] [id number] [place] [phone] SP May, SP [facility] [address] [place] [id number] [place] [phone] SP May, SP [facility] [address] [place] [id number] [place] [phone] SP May, UTI (urinary tract infection ) N39.0 ; Diabetes E11.9 ; Diabetic SP E11.40 ; Hyperlipidemia E78.5 and Chronic pain G89.29 [facility] [address] [place] [id number] [address] [place] [phone] SP May, Insomnia, unspecified G47.00 and Chronic pain G89.29 SP [facility] [address] [facility] [id number] [address] [place] [phone] SP May, SP [facility] [address] [facility] [id number] [address] [place] [phone] SP May, SP [facility] [address] [place] [id number] [address] [place] [phone] SP May, SP [facility] [address] [place] [id number] [address] [place] [phone] SP Apr, Insomnia, unspecified G47.00 ; Chronic pain G89.29 and SP episodic mood disorder F39 [facility] [address] [facility] [id number] [address] [place] [phone] SP Apr, Unspecified episodic mood di sorder F39 SP [facility] [address] [facility] [id number] [address] [place] [phone] SP Apr, Major depression F32.9 SP [facility] [address] [facility] [id number] [place] [phone] SP Apr, SP [facility] [address] [facility] [id number] [place] [phone] SP Apr, Diabetes E11.9 ; Diabetic ne uropathy E11.40 ; Degenerative disc SP lumbar M51.36 ; HTN (hypertension) I10 ; Gastritis K29.70 ; Hyperlipidemia E78.5 ; Chronic pain G89.29 and Insomnia G47.00 [place] [address] [address] SP Mar, SP [facility] [address] [place] [id number] [address] [place] [phone] SP Mar, SP [facility] [address] [phone] SP Mar, SP [facility] [address] [place] [id number] [address] [place] [phone] SP Mar, Diabetes mellitus 250.00 ; D iabetic neuropathy 250.60 ; CAD SP artery disease) 414.00 ; Degenerative disc disease, lumbar 722.52 ; Gastritis 535.50 and Insomnia 780.52 [facility] [address] [facility] [id number] [address] [place] [phone] SP Mar, Diabetes mellitus 250.00 ; D egenerative disc disease, lumbar SP ; Essential hypertension 401.9 ; Gastritis 535.50 and Chronic pain 338.29 [facility] [address] [place] [id number] [address] [place] [phone] SP Feb, SP [facility] [address] [place] [id number] [address] [place] [phone] SP Feb, SP [facility] [address] [facility] [id number] [address] [place] [phone] SP Jan, SP [facility] [address] [facility] [id number] [address] [place] [phone] SP Jan, Diabetes mellitus 250.00 ; D iabetic neuropathy 250.60 ; SP disc disease, lumbar 722.52 ; CAD (coronary artery disease) 414.00 ; Essential hypertension 401.9 ; Gastritis 535.50 ; Hyperlipidemia 272.4 and Distal end of ulna fracture, closed 813.43 [facility] [address] [place] [id number] [place] [phone] SP Dec, Wrist pain 719.43 and Diabet es mellitus 250.00 SP [facility] [address] [place] [id number] [place] [phone] SP May, SP [facility] [address] [facility] [id number] [address] [place] [phone] SP Dec, SP [facility] [address] [facility] [id number] [address] [place] [phone] SP November, SP [facility] [address] [facility] [id number] [place] [phone] SP Oct, SP [facility] [address] [place] [id number] [address] [place] [phone] SP Sep, SP [facility] [address] [facility] [id number] [address] [place] [phone] SP Sep, SP [facility] [address] [facility] [id number] [address] [place] [phone] SP Jun, SP [facility] [address] [place] [id number] [address] [place] [phone] SP Jun, SP [facility] [address] [place] [id number] [address] [place] [phone] SP Jun, SP [facility] [address] [id number] [address] [place] [phone] SP Jun, SP [facility] [address] [id number] [address] [place] [phone] SP Jun, SP [facility] [address] [facility] [id number] [address] [place] [phone] SP Jun, SP [facility] [address] [id number] [address] [place] [phone] SP Jun, SP [facility] [address] [id number] [address] [place] [phone] SP May, SP [facility] [address] [facility] [id number] [address] [place] [phone] SP May, SP [facility] [address] [facility] [id number] [address] [place] [phone] SP May, SP [facility] [address] [id number] [address] [place] [phone] SP May, SP [facility] [address] [facility] [id number] [address] [place] [phone] SP Apr, SP [facility] [address] [facility] [id number] [address] [place] [phone] SP Apr, SP [facility] [address] [facility] [id number] [address] [place] [phone] SP Apr, SP [facility] [address] [id number] [address] [place] [phone] SP Mar, SP [facility] [address] [facility] [id number] [address] [place] [phone] SP Dec, SP IMMUNIZATIONS No Known Immunizations SOCIAL HISTORY Never Assessed REASON FOR VISIT Follow-up Depression/Trauma PLAN OF CARE Activity Details POS SP Follow Up 2 Weeks Reason: Follow-up SP VITAL SIGNS MEDICATIONS Unknown Medications RESULTS No Results PROCEDURES Procedure Date Ordered Result Body Site POS Psychotherapy, patient and family, 45 minutes, established p atient Jun 29, 2018 SP SP INSTRUCTIONS MEDICATIONS ADMINISTERED No Known Medications [...]
--- OUTSIDE RECORDS SUMMARY | 2019-06-14 02:06 | XMS REPORT ---
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 Name Role Phone POS JACK GARCIA Unavailable SP PROBLEMS Type Condition ICD9-CM Code [id number] Code Onset Dates Condition S tatus SNOMED POS Problem Type 2 diabetes mellitus with hyperglycemia E11.65 Active POS Problem Major depressive disorder, recurrent episode, moderate F33.1 Active SP Problem Obsessive-compulsive disorder, unspecified type F4 2.9 Active SP Problem Ataxia R27.0 Active [id number] SP Problem Falls frequently R29.6 Active [id number] SP Problem Type 2 diabetes mellitus with other diab etic neurological complication SP E11.49 Active 29059966 SP Problem FDC current use of insulin Z79.4 Active 355220934 SP Problem History of pulmonary embolism Z86.711 Active 720198834 SP Problem Type 2 diabetes mellitus with other diabetic kid allen complication SP Active 34141653 SP Problem Insomnia G47.00 Active 347169657 SP Problem Degenerative disc disease, lumbar M51.36 Active 30166429 SP Problem HTN (hypertension) I10 Active 3 7634371 SP Problem Hyperlipidemia E78.5 Active 40621 004 SP Problem CAD (coronary artery disease) I25.10 Active 32677429 SP Problem Chronic pain G89.29 Active 6353917 1 SP Problem Post-traumatic stress disorder F43.10 Active 47966705 SP ALLERGIES Substance Reaction Event Type Date Status POS Viibryd N/V Drug Allergy Jun, Active SP Seroquel N/V and "couldn't do anything." Drug Allergy Jun, 018 Active SP Penicillin V Potassium Unknown Drug Allergy Jun, Activ e SP Lexapro N/V, inc. suicidality Drug Allergy Jun, Active SP Ibuprofen Unknown Drug Allergy Jun, Active SP Depakote inc. suicidality Drug Allergy Jun, Active SP ENCOUNTERS Encounter Location Date Diagnosis POS [facility] [id number] [place] [phone] SP Jul, SP [place] [id number] [place] [phone] SP Jul, SP [facility] [id number] [place] [phone] SP Jun, SP [place] [id number] [place] [phone] SP Jun, SP [place] [id number] [place] [phone] SP Jun, Major depressive disorder, r ecurrent episode, moderate F33.1 ; SPtraumatic stress disorder F43.10 and Obsessive-compulsive disorder, unspecified type F42.9 [place] [id number] [place] [phone] SP Jun, Major depressive disorder, r ecurrent episode, moderate F33.1 and SPtraumatic stress disorder F43.10 [place] [address] [place] [id number] [place] [phone] SP May, Degenerative disc disease, l umbar M51.36 SP [place] [address] [id number] [place] [phone] SP May, SP [place] [address] [place] [id number] [address] [place] [phone] SP May, Fatigue, unspecified type R5 3.83 ; Type 2 diabetes mellitus with SP E11.65 ; Encounter for immunization Z23 ; Type 2 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 E11.49 ; Type 2 diabetes mellitus with other diabetic kidney complication E11.29 ; FDC current use of insulin Z79.4 and Falls frequently R29.6 [place] [address] [address] [id number] [place] [phone] SP May, Type 2 diabetes mellitus wit h hyperglycemia E11.65 SP [facility] [address] [facility] [id number] [address] [place] [phone] SP May, SP [facility] [address] [facility] [id number] [address] [place] [phone] SP Apr, Degenerative disc disease, l umbar M51.36 ; Chronic pain G89.29 ; SP frequently R29.6 ; Type 2 diabetes mellitus with hyperglycemia E11.65 and Type 2 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 E11.49 [facility] [address] [facility] [id number] [address] [place] [phone] SP Apr, SP [place] [address] [facility] [id number] [address] [place] [phone] SP Apr, Major depressive disorder, r ecurrent episode, moderate F33.1 and SPtraumatic stress disorder F43.10 [place] [address] [facility] [id number] [address] [place] [phone] SP Apr, SP [facility] [address] [facility] [id number] [address] [place] [phone] SP Apr, Post-traumatic stress disord er F43.10 ; Diabetes E11.9 ; SP E78.5 ; Major depressive disorder, recurrent episode, moderate F33.1 ; Other irritable bowel syndrome K58.8 and Chronic pain G89.29 [place] [address] [facility] [id number] [address] [place] [phone] SP Mar, Chronic pain G89.29 SP [facility] [address] [facility] [id number] [address] [place] [phone] SP Feb, Type 2 diabetes mellitus wit h other diabetic neurological SP E11.49 ; Type 2 diabetes mellitus with other diabetic kidney complication E11.29 ; Degenerative disc disease, lumbar M51.36 and Chronic pain G89.29 [place] [address] [facility] [id number] [address] [place] [phone] SP Jan, SP [facility] [address] [facility] [id number] [address] [place] [phone] SP Jan, SP [facility] [address] [facility] [id number] [address] [place] [phone] SP Jan, SP [facility] [address] [facility] [id number] [address] [place] [phone] SP Jan, SP [facility] [address] [facility] [id number] [address] [place] [phone] SP Jan, SP [facility] [address] [facility] [id number] [address] [place] [phone] SP Jan, SP [facility] [address] [facility] [id number] [address] [place] [phone] SP Jan, Slurred speech R47.81 ; Atax ia R27.0 ; Left arm weakness R29.898 SP Type 2 diabetes mellitus with hyperglycemia E11.65 and Type 2 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 E11.49 [facility] [address] [facility] [id number] [address] [place] [phone] SP Jan, SP [facility] [address] [facility] [id number] [address] [place] [phone] SP Jan, Type 2 diabetes mellitus wit h hyperglycemia E11.65 and SP vomiting with nausea, unspecified vomiting type R11.2 [facility] [address] [facility] [id number] [address] [place] [phone] SP Dec, CAD (coronary artery disease ) I25.10 and Atypical chest pain SP [facility] [address] [facility] [id number] [address] [place] [phone] SP Dec, SP [facility] [address] [facility] [id number] [address] [place] [phone] SP Dec, Diabetes E11.9 ; Type 2 diab etes mellitus with hyperglycemia SP and Intractable vomiting with nausea, unspecified vomiting type R11.2 [facility] [address] [facility] [id number] [address] [place] [phone] SP Dec, Chronic pain G89.29 SP [facility] [address] [id number] [address] [place] [phone] SP November, SP [facility] [address] [facility] [id number] [address] [place] [phone] SP November, Diabetes E11.9 ; CAD (trinidad ry artery disease) I25.10 ; Atypical SP pain R07.89 ; Type 2 diabetes mellitus with hyperglycemia E11.65 ; 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.29 ; 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 and Chronic pain G89.29 [facility] [address] [facility] [id number] [address] [place] [phone] SP Oct, SP [facility] [address] [facility] [id number] [address] [place] [phone] SP Oct, Chronic pain G89.29 SP [facility] [address] [facility] [id number] [address] [place] [phone] SP Sep, Diabetes E11.9 SP [facility] [address] [id number] [address] [place] [phone] SP Sep, Chronic pain G89.29 SP [facility] [address] [facility] [id number] [address] [place] [phone] SP Sep, SP [facility] [address] [facility] [id number] [address] [place] [phone] SP Sep, Falls frequently R29.6 ; Elier g term current use of insulin Z79.4 SP Type 2 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 E11.49 [facility] [address] [facility] [id number] [address] [place] [phone] SP Sep, SP [facility] [address] [facility] [id number] [address] [place] [phone] SP Sep, Diabetes E11.9 [facility] [address] [facility] [id number] [address] [place] [phone] SP Aug, SP [facility] [address] [facility] [id number] [address] [place] [phone] SP Aug, Chronic pain G89.29 SP [facility] [address] [facility] [id number] [address] [place] [phone] SP Aug, SP [facility] [address] [facility] [id number] [address] [place] [phone] SP Aug, Chronic pain G89.29 SP [facility] [address] [facility] [id number] [address] [place] [phone] SP Jul, SP [facility] [address] [facility] [id number] [address] [place] [phone] SP Jul, Diabetes E11.9 and Type 2 di abetes mellitus with other diabetic SP complication E11.29 [facility] [address] [facility] [id number] [address] [place] [phone] SP Jul, Type 2 diabetes mellitus wit h other diabetic kidney complication SP [facility] [address] [facility] [id number] [address] [place] [phone] SP Jul, SP [facility] [address] [facility] [id number] [address] [place] [phone] SP Jul, Chronic pain G89.29 SP [facility] [address] [facility] [id number] [address] [place] [phone] SP Jun, Diabetes E11.9 SP [facility] [address] [facility] [id number] [address] [place] [phone] SP Jun, Chronic pain G89.29 SP [facility] [address] [facility] [id number] [address] [place] [phone] SP Jun, Diabetes E11.9 ; Atypical ch est pain R07.89 ; 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 ; Type 2 diabetes mellitus with other diabetic kidney complication E11.29 ; Type 2 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 E11.49 ; History of pulmonary embolism Z86.711 and History of CVA (cerebrovascular accident) Z86.73 [place] [address] [id number] [address] [place] [phone] SP May, SP [facility] [address] [facility] [id number] [address] [place] [phone] SP May, Chronic pain G89.29 SP [facility] [address] [facility] [id number] [address] [place] [phone] SP Apr, Chronic pain G89.29 SP [facility] [address] [facility] [id number] [address] [place] [phone] SP Apr, SP [facility] [address] [facility] [id number] [address] [place] [phone] SP Mar, Chronic pain G89.29 SP [facility] [address] [facility] [id number] [address] [place] [phone] SP Mar, Diabetes E11.9 SP [place] [address] [facility] [id number] [address] [place] [phone] SP Mar, SP [facility] [address] [facility] [id number] [address] [place] [phone] SP Mar, Degenerative disc disease, l umbar M51.36 SP [facility] [address] [facility] [id number] [address] [place] [phone] SP Feb, Diabetes E11.9 SP [place] [address] [facility] [id number] [address] [place] [phone] SP Feb, Diabetes E11.9 SP [facility] [address] [facility] [id number] [address] [place] [phone] SP Feb, Diabetes E11.9 ; HTN (hypert ension) I10 ; Diabetic neuropathy SP and Leg cramps R25.2 [facility] [address] [facility] [id number] [address] [place] [phone] SP Feb, Sprain of calcaneofibular li gament of right ankle, subsequent SP S93.411D ; Major depressive disorder, recurrent episode, moderate F33.1 ; Diabetes E11.9 ; Hyperlipidemia E78.5 ; Post-traumatic stress disorder F43.10 and Other irritable bowel syndrome K58.8 [facility] [address] [facility] [id number] [address] [place] [phone] SP Feb, Major depressive disorder, r ecurrent episode, moderate F33.1 ; SPtraumatic stress disorder F43.10 and Obsessive-compulsive disorder, unspecified type F42.9 [place] [address] [facility] [id number] [address] [place] [phone] SP Feb, SP [facility] [address] [facility] [id number] [address] [place] [phone] SP Feb, Post-traumatic stress disord er F43.10 and Major depressive SP recurrent, moderate F33.1 [place] [address] [facility] [id number] [address] [place] [phone] SP Feb, Diabetes E11.9 SP [place] [address] [facility] [id number] [address] [place] [phone] SP Feb, Degenerative disc disease, l umbar M51.36 SP [place] [address] [facility] [id number] [address] [place] [phone] SP Feb, Post-traumatic stress disord er F43.10 and Major depressive SP recurrent, moderate F33.1 [place] [address] [facility] [id number] [address] [place] [phone] SP Feb, SP [facility] [address] [facility] [id number] [address] [place] [phone] SP Feb, Diabetes E11.9 SP [facility] [address] [facility] [id number] [address] [place] [phone] SP Jan, Diabetes E11.9 SP [facility] [address] [facility] [id number] [address] [place] [phone] SP Jan, Post-traumatic stress disord er F43.10 and Major depressive SP recurrent, moderate F33.1 [place] [address] [id number] [address] [place] [phone] SP Jan, Diabetes E11.9 SP [facility] [address] [id number] [address] [place] [phone] SP Jan, Diabetes E11.9 SP [facility] [address] [id number] [address] [place] [phone] SP Jan, SP [facility] [address] [facility] [id number] [address] [place] [phone] SP Jan, SP [facility] [address] [facility] [id number] [address] [place] [phone] SP Jan, Post-traumatic stress disord er F43.10 and Major depressive SP recurrent, moderate F33.1 [facility] [address] [facility] [id number] [address] [place] [phone] SP Jan, SP [facility] [address] [facility] [id number] [address] [place] [phone] SP Jan, Major depressive disorder, r ecurrent episode, moderate F33.1 ; SPtraumatic stress disorder F43.10 and Obsessive-compulsive disorder, unspecified type F42.9 [facility] [address] [facility] [id number] [address] [place] [phone] SP Jan, SP [facility] [address] [facility] [id number] [address] [place] [phone] SP Jan, Diabetes E11.9 SP [facility] [address] [id number] [address] [place] [phone] SP Jan, SP [facility] [address] [facility] [id number] [address] [place] [phone] SP Jan, Sprain of calcaneofibular li gament of right ankle, subsequent SP S93.411D [facility] [address] [facility] [id number] [address] [place] [phone] SP Jan, Post-traumatic stress disord er F43.10 and Major depressive SP recurrent, moderate F33.1 [place] [address] [id number] [address] [place] [phone] SP Jan, Diabetes E11.9 SP [facility] [address] [id number] [address] [place] [phone] SP 16 Dec, 2016 Major depressive disorder, r ecurrent episode, moderate F33.1 ; SPtraumatic stress disorder F43.10 and Obsessive-compulsive disorder, unspecified type F42.9 [facility] [address] [id number] [address] [place] [phone] SP 15 Dec, 2016 SP [place] [address] [id number] [address] [place] [phone] SP 14 Dec, 2016 Sprain of calcaneofibular li gament of right ankle, subsequent SP S93.411D [place] [address] [id number] [address] [place] [phone] SP Dec, Post-traumatic stress disord er F43.10 and Major depressive SP recurrent, moderate F33.1 [place] [address] [id number] [address] [place] [phone] SP Dec, Sprain of calcaneofibular li gament of right ankle, subsequent SP S93.411D [place] [address] [id number] [address] [place] [phone] SP Dec, Hyperlipidemia E78.5 SP [facility] [address] [id number] [address] [place] [phone] SP Dec, SP [facility] [address] [id number] [address] [place] [phone] SP Dec, Diabetes E11.9 ; Diabetic ne uropathy E11.40 ; Degenerative disc SP lumbar M51.36 ; Hyperlipidemia E78.5 ; Insomnia G47.00 ; CAD (coronary artery disease) I25.10 ; Major depressive disorder, recurrent, moderate F33.1 ; Post- traumatic stress disorder F43.10 and Other irritable bowel syndrome K58.8 [facility] [address] [phone] SP November, Diabetic neuropathy E11.40 a nd Hyperlipidemia E78.5 SP [place] [address] [phone] SP November, Degenerative disc disease, l umbar M51.36 SP [place] [address] [phone] SP Oct, [place] [address] [phone] SP Oct, Degenerative disc disease, l umbar M51.36 SP [place] [address] [phone] SP Sep, Degenerative disc disease, l umbar M51.36 and HTN (hypertension) SP [place] [address] [phone] SP Sep, Diabetic neuropathy E11.40 ; HTN (hypertension) I10 ; SP disc disease, lumbar M51.36 ; Hyperlipidemia E78.5 ; Insomnia G47.00 ; CAD (coronary artery disease) I25.10 and Diabetes E11.9 [place] [address] [place] [id number] [address] [place] [phone] SP Aug, SP [place] [address] [phone] SP Aug, Type 2 diabetes mellitus wit h hyperglycemia E11.65 SP [place] [address] [phone] SP Aug, [place] [address] [phone] SP Jul, [place] [address] [phone] SP Jul, [place] [id number] [place] [phone] SP Jun, SP [facility] [address] [facility] [id number] [address] [place] [phone] SP Jun, SP [facility] [address] [facility] [id number] [address] [place] [phone] SP Jun, SP [facility] [address] [facility] [id number] [address] [place] [phone] SP Jun, SP [facility] [address] [facility] [id number] [address] [place] [id number] SP May, Major depressive disorder, r ecurrent episode, moderate F33.1 and SPtraumatic stress disorder F43.10 [facility] [id number] [facility] [id number] [address] [place] [phone] SP May, Major depressive disorder, r ecurrent episode, moderate F33.1 and SPtraumatic stress disorder F43.10 [facility] [address] [facility] [id number] [address] [place] [phone] SP May, Diabetes E11.9 ; Diabetic ne uropathy E11.40 ; HTN (hypertension) SP ; Gastritis K29.70 ; Hyperlipidemia E78.5 ; Insomnia G47.00 and Major depressive disorder, recurrent, moderate F33.1 [facility] [address] [facility] [id number] [address] [place] [phone] SP May, Major depressive disorder, r ecurrent episode, moderate F33.1 SP [facility] [address] [facility] [id number] [address] [place] [phone] SP Apr, SP [facility] [address] [facility] [id number] [address] [place] [phone] SP Apr, Major depressive disorder, r ecurrent episode, moderate F33.1 and SPtraumatic stress disorder F43.10 [facility] [address] [facility] [id number] [address] [place] [phone] SP Apr, Diabetes E11.9 ; Diabetic ne uropathy E11.40 ; Degenerative disc SP lumbar M51.36 ; HTN (hypertension) I10 ; Hyperlipidemia E78.5 ; Chronic pain G89.29 ; CAD (coronary artery disease) I25.10 and Major depressive disorder, recurrent, moderate F33.1 [place] [address] [facility] [id number] [address] [place] [phone] SP Apr, Major depressive disorder, r ecurrent episode, moderate F33.1 and SPtraumatic stress disorder F43.10 [place] [address] [facility] [id number] [place] [phone] SP Apr, Major depressive disorder, r ecurrent episode, moderate F33.1 and SPtraumatic stress disorder F43.10 [place] [address] [facility] [id number] [place] [phone] SP Apr, Major depressive disorder, r ecurrent episode, moderate F33.1 and SP episodic mood disorder F39 [place] [address] [place] [id number] [place] [phone] SP Apr, Chronic pain G89.29 ; Diabet ic neuropathy E11.40 ; HTN SP I10 ; Insomnia G47.00 ; CAD (coronary artery disease) I25.10 ; Hyperlipidemia E78.5 ; Degenerative disc disease, lumbar M51.36 ; Diabetes E11.9 and Gastritis K29.70 [place] [address] [place] [id number] [address] [place] [phone] SP Sep, SP [place] [address] [place] [id number] [address] [place] [phone] SP Aug, SP [place] [address] [facility] [id number] [place] [phone] SP Jul, Major depressive disorder, r ecurrent episode, moderate F33.1 SP [place] [address] [facility] [id number] [address] [place] [phone] SP Jul, Unspecified episodic mood di sorder F39 SP [place] [address] [place] [id number] [address] [place] [phone] SP Jul, SP [facility] [address] [facility] [id number] [address] [place] [phone] SP Jul, SP [facility] [address] [facility] [id number] [address] [place] [phone] SP Jul, SP [facility] [address] [place] [id number] [place] [phone] SP Jul, Type 2 diabetes mellitus wit h hyperglycemia E11.65 ; Diabetic SP E11.40 ; Degenerative disc disease, lumbar M51.36 ; HTN (hypertension) I10 ; Gastritis K29.70 ; Hyperlipidemia E78.5 and CAD (coronary artery disease) I25.10 [place] [address] [place] [id number] [place] [phone] SP Jul, Severe episode of recurrent major depressive disorder, without SP features F33.2 [place] [address] [phone] SP Jul, SP [facility] [address] [place] [id number] [place] [phone] SP Jun, SP [facility] [address] [place] [id number] [place] [phone] SP Jun, Diabetes E11.9 ; Diabetic ne uropathy E11.40 ; Degenerative disc SP lumbar M51.36 ; HTN (hypertension) I10 ; Gastritis K29.70 ; Hyperlipidemia E78.5 ; Unspecified episodic mood disorder F39 ; Depression F32.9 and CAD (coronary artery disease) I25.10 [facility] [address] [facility] [id number] [address] [place] [phone] SP Jun, SP [facility] [address] [place] [id number] [address] [place] [phone] SP Jun, SP [facility] [address] [place] [id number] [place] [phone] SP 08 Dec, 2015 Diabetes E11.9 ; Diabetic ne uropathy E11.40 ; Degenerative disc SP lumbar M51.36 ; HTN (hypertension) I10 ; Gastritis K29.70 ; Chronic pain G89.29 ; Insomnia G47.00 and Unspecified episodic mood disorder F39 [facility] [address] [id number] [address] [place] [phone] SP May, Diabetic neuropathy E11.40 ; Degenerative disc disease, lumbar SP ; HTN (hypertension) I10 ; Gastritis K29.70 ; Hyperlipidemia E78.5 ; Chronic pain G89.29 ; Insomnia G47.00 ; Unspecified episodic mood disorder F39 ; Diabetes E11.9 ; CAD (coronary artery disease) I25.10 and H/O Gram positive sepsis Z86.19 [facility] [address] [facility] [id number] [address] [place] [phone] SP May, SP [facility] [address] [facility] [id number] [address] [place] [phone] SP May, SP [facility] [address] [facility] [id number] [address] [place] [phone] SP May, SP [facility] [address] [facility] [id number] [address] [place] [phone] SP May, SP [facility] [address] [facility] [id number] [address] [place] [phone] SP May, UTI (urinary tract infection ) N39.0 ; Diabetes E11.9 ; Diabetic SP E11.40 ; Hyperlipidemia E78.5 and Chronic pain G89.29 [facility] [address] [facility] [id number] [address] [place] [phone] SP May, Insomnia, unspecified G47.00 and Chronic pain G89.29 SP [facility] [address] [facility] [id number] [address] [place] [phone] SP May, SP [facility] [address] [facility] [id number] [address] [place] [phone] SP May, SP [facility] [address] [facility] [id number] [address] [place] [phone] SP May, SP [facility] [address] [facility] [id number] [place] [phone] SP Apr, Insomnia, unspecified G47.00 ; Chronic pain G89.29 and SP episodic mood disorder F39 [facility] [address] [facility] [id number] [place] [phone] SP Apr, Unspecified episodic mood di sorder F39 SP [facility] [address] [facility] [id number] [place] [phone] SP Apr, Major depression F32.9 SP [facility] [address] [place] [id number] [place] [phone] SP Apr, SP [facility] [address] [place] [id number] [place] [phone] SP Apr, Diabetes E11.9 ; Diabetic ne uropathy E11.40 ; Degenerative disc SP lumbar M51.36 ; HTN (hypertension) I10 ; Gastritis K29.70 ; Hyperlipidemia E78.5 ; Chronic pain G89.29 and Insomnia G47.00 [place] [address] [phone] SP Mar, SP [facility] [address] [place] [id number] [place] [phone] SP Mar, SP [facility] [address] [phone] SP Mar, SP [facility] [address] [place] [id number] [address] [place] [phone] SP Mar, Diabetes mellitus 250.00 ; D iabetic neuropathy 250.60 ; CAD SP artery disease) 414.00 ; Degenerative disc disease, lumbar 722.52 ; Gastritis 535.50 and Insomnia 780.52 [facility] [address] [place] [id number] [address] [place] [phone] SP Mar, Diabetes mellitus 250.00 ; D egenerative disc disease, lumbar SP ; Essential hypertension 401.9 ; Gastritis 535.50 and Chronic pain 338.29 [facility] [address] [phone] SP Feb, SP [facility] [address] [facility] [id number] [place] [phone] SP Feb, SP [facility] [address] [phone] SP Jan, SP [facility] [address] [place] [id number] [place] [phone] SP Jan, Diabetes mellitus 250.00 ; D iabetic neuropathy 250.60 ; SP disc disease, lumbar 722.52 ; CAD (coronary artery disease) 414.00 ; Essential hypertension 401.9 ; Gastritis 535.50 ; Hyperlipidemia 272.4 and Distal end of ulna fracture, closed 813.43 [facility] [address] [phone] SP Dec, Wrist pain 719.43 and Diabet es mellitus 250.00 SP [facility] [address] [phone] SP May, SP [facility] [address] [place] [id number] [place] [phone] SP Dec, SP [facility] [address] [phone] SP November, SP [facility] [address] [place] [id number] [address] [place] [phone] SP Oct, SP [facility] [address] [phone] SP Sep, SP [facility] [address] [place] [id number] [address] [place] [phone] SP Sep, SP [facility] [address] [phone] SP Jun, SP [facility] [address] [id number] [address] [place] [phone] SP Jun, 2008 SP [facility] [address] [id number] [address] [place] [address], [place] [phone] SP 14 Jun, 2009 SP [facility] [address] [facility] [id number] [address] [place] [address], [place] [phone] SP Jun, 2008 SP [facility] [address] [id number] [address] [place] [phone] SP Jun, SP [facility] [address] [id number] [address] [place] [phone] SP Jun, SP [facility] [address] [id number] [address] [place] [phone] SP Jun, SP [facility] [address] [id number] [address] [place] [phone] SP May, 2008 SP [facility] [address] [id number] [address] [place] [phone] SP May, SP [facility] [address] [id number] [address] [place] [phone] SP May, 2008 SP [facility] [address] [id number] [address] [place] [phone] SP May, SP [facility] [address] [id number] [address] [place] [phone] SP 28 Apr, 2009 SP [facility] [address] [id number] [address] [place] [phone] SP 19 Apr, 2009 SP [facility] [address] [id number] [address] [place] [phone] SP 12 Apr, 2009 SP [facility] [address] [id number] [address] [place] [phone] SP 16 Mar, 2009 SP [facility] [address] [id number] [address] [place] [phone] Dec, SP IMMUNIZATIONS No Known Immunizations SOCIAL HISTORY Never Assessed REASON FOR VISIT f/u- Claudia PLAN OF CARE Activity Details POS SP Follow Up 4 Weeks Reason: f/u SP VITAL SIGNS Height 61 in 2018-06-21 POS Weight 128.2 lbs 2018-06-21 POS Heart Rate 120 bpm 2018-06-21 POS Respiratory Rate 20 2018-06-21 POS BMI 24.22 kg/m2 2018-06-21 POS Blood pressure systolic 152 mmHg 2018-06-21 POS Blood pressure diastolic 112 mmHg 2018-06-21 POS MEDICATIONS Medication Instructions Dosage Frequency Start Date End Date Duration S tatus POS Accu-Chek Deepika Plus w/Device subcutaneously 4 times a day check reyes gars 6h 2016 Active SP Plavix 75 MG TAKE 1 TABLET EVERY DAY 28 Active SP Accu-Chek Deepika Plus - subcutaneously 4 times a day to check glucos e 6h Feb, Active SP Accu-Chek Softclix Lancets - subcutaneously 4 times a day us e to check blood SP 6h Feb, Active SP Pen [place] 31G X 6 MM as directed 6h Dec, Active SP Crestor 40 mg Orally Once a day 1 tablet 24h Active SP Potassium Chloride ER 10 MEQ Orally Once a day 1 capsule with food 24h SP NovoLog Flexpen 100 UNIT/ML Subcutaneous 3 times a day with meals inject 40 SP Active SP Hydrocodone-Acetaminophen 10-325 MG Orally 3 times a day 1 tablet a s needed 8h SP May, 2018 28 days Active SP Levemir FlexTouch 100 UNIT/ML Subcutaneous 55 units bid inject Active SP Amitriptyline HCl 50 mg Orally at bedtime for two weeks, the n 1 tablet nightly SP tablet Jun, 30 day(s) Active SP Lisinopril-Hydrochlorothiazide 20-12.5 MG Orally Once a day 1 table t 24h Dec, [id number] Active SP Gabapentin 600 MG Orally 3 times a day 1 tablet 8h 30 days Active SP Metoclopramide HCl 10 mg Orally every 6 hours 1 tab 6h Active SP RESULTS No Results PROCEDURES No [...]
--- OUTSIDE RECORDS SUMMARY | 2019-06-14 02:07 | XMS REPORT ---
Author Author EFRA JULIEN POS Organization [facility] SP Address [address] [place] [address] SP Care Team Providers Care Hydro Generation Manager Name Role Phone POS JULIEN KRAUS Unavailable SP PROBLEMS Type Condition ICD9-CM Code JUT79-TC Code Onset Dates Condition S tatus SNOMED POS Problem Type 2 diabetes mellitus with hyperglycemia E11.65 Active POS Problem Major depressive disorder, recurrent episode, moderate F33.1 Active SP Problem Obsessive-compulsive disorder, unspecified type F4 2.9 Active SP Problem Ataxia R27.0 Active [id number] SP Problem Falls frequently R29.6 Active 279 087422 SP Problem Type 2 diabetes mellitus with other diab etic neurological complication SP E11.49 Active 11007972 SP Problem 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.4 Active 195156681 SP Problem History of pulmonary embolism Z86.711 Active 912981889 SP Problem Type 2 diabetes mellitus with other diabetic kid allen complication SP Active 06997889 SP Problem Insomnia G47.00 Active 889033634 SP Problem Degenerative disc disease, lumbar M51.36 Active 95877173 SP Problem HTN (hypertension) I10 Active 3 3113189 SP Problem Hyperlipidemia E78.5 Active 17240 004 SP Problem CAD (coronary artery disease) I25.10 Active 58269309 SP Problem Chronic pain G89.29 Active 0811085 1 SP Problem Post-traumatic stress disorder F43.10 Active 76746654 SP ALLERGIES No Information ENCOUNTERS Encounter Location Date Diagnosis POS [facility] [address] [facility] [id number] [address] [place] [phone] SP Jun, SP [facility] [address] [facility] [id number] [address] [place] [id number] SP Jun, SP [facility] [address] [facility] [id number] [address] [place] [phone] SP May, Degenerative disc disease, l umbar M51.36 SP [facility] [address] [id number] [address] [place] [phone] SP May, SP [facility] [address] [facility] [id number] [address] [place] [phone] SP May, Fatigue, unspecified type R5 3.83 ; Type 2 diabetes mellitus with SP E11.65 ; Encounter for immunization Z23 ; Type 2 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 E11.49 ; Type 2 diabetes mellitus with other diabetic kidney complication E11.29 ; terminal 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 of insulin Z79.4 and Falls frequently R29.6 [place] [address] [facility] [id number] [address] [place] [phone] SP May, Type 2 diabetes mellitus wit h hyperglycemia E11.65 SP [place] [address] [facility] [id number] [address] [place] [phone] SP May, SP [place] [address] [facility] [id number] [address] [place] [id number] SP Apr, Degenerative disc disease, l umbar M51.36 ; Chronic pain G89.29 ; SP frequently R29.6 ; Type 2 diabetes mellitus with hyperglycemia E11.65 and Type 2 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 E11.49 [place] [address] [facility] [id number] [address] [place] [phone] SP Apr, SP [facility] [address] [facility] [id number] [address] [place] [phone] SP Apr, Major depressive disorder, r ecurrent episode, moderate F33.1 and SPtraumatic stress disorder F43.10 [place] [address] [facility] [id number] [address] [place] [phone] SP Apr, SP [place] [address] [facility] [id number] [address] [place] [id number] SP Apr, Post-traumatic stress disord er F43.10 ; Diabetes E11.9 ; SP E78.5 ; Major depressive disorder, recurrent episode, moderate F33.1 ; Other irritable bowel syndrome K58.8 and Chronic pain G89.29 [facility] [address] [id number] [address] [place] [id number] SP Mar, Chronic pain G89.29 SP [facility] [address] [id number] [address] [place] [phone] SP Feb, Type 2 diabetes mellitus wit h other diabetic neurological SP E11.49 ; Type 2 diabetes mellitus with other diabetic kidney complication E11.29 ; Degenerative disc disease, lumbar M51.36 and Chronic pain G89.29 [facility] [address] [id number] [address] [place] [id number] SP Jan, SP [facility] [address] [id number] [address] [place] [id number] SP Jan, SP [facility] [address] [id number] [address] [place] [phone] SP Jan, SP [facility] [address] [id number] [address] [place] [phone] SP Jan, SP [facility] [address] [id number] [address] [place] [phone] SP Jan, SP [facility] [address] [id number] [address] [place] [phone] SP Jan, SP [facility] [address] [id number] [address] [place] [phone] SP Jan, Slurred speech R47.81 ; Atax ia R27.0 ; Left arm weakness R29.898 SP Type 2 diabetes mellitus with hyperglycemia E11.65 and Type 2 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 E11.49 [facility] [address] [id number] [address] [place] [phone] SP Jan, SP [facility] [address] [id number] [address] [place] [phone] SP Jan, Type 2 diabetes mellitus wit h hyperglycemia E11.65 and SP vomiting with nausea, unspecified vomiting type R11.2 [facility] [address] [facility] [id number] [address] [place] [phone] SP Dec, CAD (coronary artery disease ) I25.10 and Atypical chest pain SP [facility] [address] [facility] [id number] [address] [place] [id number] SP Dec, SP [facility] [address] [facility] [id number] [address] [place] [phone] SP Dec, Diabetes E11.9 ; Type 2 diab etes mellitus with hyperglycemia SP and Intractable vomiting with nausea, unspecified vomiting type R11.2 [facility] [address] [facility] [id number] [address] [place] [phone] SP Dec, Chronic pain G89.29 SP [place] [address] [place] [id number] [address] [place] [id number] SP November, SP [facility] [address] [facility] [id number] [address] [place] [phone] SP November, Diabetes E11.9 ; CAD ([place]in[place] ry artery disease) I25.10 ; Atypical SP pain R07.89 ; Type 2 diabetes mellitus with hyperglycemia E11.65 ; Type 2 diabetes mellitus with other diabetic kidney complication E11.29 ; custodial current use of insulin Z79.4 and Chronic pain G89.29 [place] [address] [facility] [id number] [address] [place] [phone] SP Oct, SP [facility] [address] [facility] [id number] [address] [place] [phone] SP Oct, Chronic pain G89.29 SP [facility] [address] [place] [id number] [address] [place] [phone] SP Sep, Diabetes E11.9 SP [facility] [address] [facility] [id number] [address] [place] [id number] SP Sep, Chronic pain G89.29 SP [facility] [address] [id number] [address] [place] [phone] SP Sep, SP [facility] [address] [id number] [address] [place] [id number] SP Sep, Falls frequently R29.6 ; Elier g term current use of insulin Z79.4 SP Type 2 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 E11.49 [facility] [address] [facility] [id number] [address] [place] [phone] SP Sep, SP [facility] [address] [facility] [id number] [address] [place] [phone] SP Sep, Diabetes E11.9 SP [facility] [address] [facility] [id number] [address] [place] [phone] SP Aug, SP [facility] [address] [facility] [id number] [address] [place] [id number] SP Aug, Chronic pain G89.29 SP [facility] [address] [facility] [id number] [address] [place] [phone] SP Aug, SP [facility] [address] [facility] [id number] [address] [place] [phone] SP Aug, Chronic pain G89.29 SP [facility] [address] [facility] [id number] [address] [place] [phone] SP Jul, SP [facility] [address] [facility] [id number] [address] [place] [phone] SP Jul, Diabetes E11.9 and Type 2 di abetes mellitus with other diabetic SP complication E11.29 [facility] [address] [id number] [address] [place] [phone] SP Jul, Type 2 diabetes mellitus wit h other diabetic kidney complication SP [facility] [address] [facility] [id number] [address] [place] [phone] SP Jul, SP [facility] [address] [facility] [id number] [address] [place] [id number] SP Jul, Chronic pain G89.29 SP [facility] [address] [facility] [id number] [address] [place] [phone] SP Jun, Diabetes E11.9 SP [facility] [address] [facility] [id number] [address] [place] [phone] SP Jun, Chronic pain G89.29 SP [facility] [address] [facility] [id number] [address] [place] [phone] SP Jun, Diabetes E11.9 ; Atypical ch est pain R07.89 ; terminal manager current SP of insulin Z79.4 ; 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.29 ; Type 2 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 E11.49 ; History of pulmonary embolism Z86.711 and History of CVA (cerebrovascular accident) Z86.73 [facility] [address] [facility] [id number] [address] [place] [id number] SP May, SP [facility] [address] [facility] [id number] [address] [place] [phone] SP May, Chronic pain G89.29 SP [facility] [address] [facility] [id number] [address] [place] [phone] SP Apr, Chronic pain G89.29 SP [facility] [address] [facility] [id number] [address] [place] [phone] SP Apr, SP [facility] [address] [facility] [id number] [address] [place] [id number] SP Mar, Chronic pain G89.29 SP [facility] [address] [facility] [id number] [address] [place] [phone] SP Mar, Diabetes E11.9 SP [facility] [address] [facility] [id number] [address] [place] [phone] SP Mar, SP [facility] [address] [facility] [id number] [address] [place] [phone] SP Mar, Degenerative disc disease, l umbar M51.36 SP [place] [address] [facility] [id number] [address] [place] [phone] SP Feb, Diabetes E11.9 SP [place] [address] [facility] [id number] [address] [place] [phone] SP Feb, Diabetes E11.9 SP [place] [address] [facility] [id number] [address] [place] [phone] SP 16 Feb, 2017 Diabetes E11.9 ; HTN (hypert ension) I10 ; Diabetic neuropathy SP and Leg cramps R25.2 [place] [address] [facility] [id number] [address] [place] [phone] SP 15 Feb, 2017 Sprain of calcaneofibular li gament of right ankle, subsequent SP S93.411D ; Major depressive disorder, recurrent episode, moderate F33.1 ; Diabetes E11.9 ; Hyperlipidemia E78.5 ; Post-traumatic stress disorder F43.10 and Other irritable bowel syndrome K58.8 [place] [address] [facility] [id number] [address] [place] [phone] SP Feb, Major depressive disorder, r ecurrent episode, moderate F33.1 ; SPtraumatic stress disorder F43.10 and Obsessive-compulsive disorder, unspecified type F42.9 [place] [address] [facility] [id number] [address] [place] [phone] SP Feb, SP [place] [address] [facility] [id number] [address] [place] [phone] SP Feb, Post-traumatic stress disord er F43.10 and Major depressive SP recurrent, moderate F33.1 [place] [address] [facility] [id number] [address] [place] [phone] SP Feb, Diabetes E11.9 SP [place] [address] [facility] [id number] [address] [place] [phone] SP Feb, Degenerative disc disease, l umbar M51.36 SP [place] [address] [facility] [id number] [address] [place] [phone] SP Feb, Post-traumatic stress disord er F43.10 and Major depressive SP recurrent, moderate F33.1 [facility] [address] [id number] [address] [place] [id number] SP Feb, SP [facility] [address] [id number] [address] [place] [phone] SP Feb, Diabetes E11.9 SP [facility] [address] [id number] [address] [place] [phone] SP Jan, Diabetes E11.9 SP [facility] [address] [id number] [address] [place] [phone] SP Jan, Post-traumatic stress disord er F43.10 and Major depressive SP recurrent, moderate F33.1 [facility] [address] [id number] [address] [place] [phone] SP Jan, Diabetes E11.9 SP [facility] [address] [id number] [address] [place] [phone] SP Jan, Diabetes E11.9 SP [facility] [address] [id number] [address] [place] [phone] SP Jan, SP [facility] [address] [id number] [address] [place] [phone] SP Jan, SP [facility] [address] [id number] [address] [place] [id number] SP Jan, Post-traumatic stress disord er F43.10 and Major depressive SP recurrent, moderate F33.1 [facility] [address] [id number] [address] [place] [id number] SP Jan, SP [facility] [address] [id number] [address] [place] [phone] SP Jan, Major depressive disorder, r ecurrent episode, moderate F33.1 ; SPtraumatic stress disorder F43.10 and Obsessive-compulsive disorder, unspecified type F42.9 [facility] [address] [id number] [address] [place] [phone] SP 17 Jan, 2017 SP [facility] [address] [facility] [id number] [address] [place] [phone] SP Jan, Diabetes E11.9 SP [facility] [address] [id number] [address] [place] [id number] SP Jan, SP [facility] [address] [id number] [address] [place] [phone] SP Jan, Sprain of calcaneofibular li gament of right ankle, subsequent SP S93.411D [place] [address] [facility] [id number] [address] [place] [phone] SP Jan, Post-traumatic stress disord er F43.10 and Major depressive SP recurrent, moderate F33.1 [place] [id number] [facility] [id number] [address] [place] [phone] SP Jan, Diabetes E11.9 SP [facility] [address] [id number] [address] [place] [phone] SP 16 Dec, 2016 Major depressive disorder, r ecurrent episode, moderate F33.1 ; SPtraumatic stress disorder F43.10 and Obsessive-compulsive disorder, unspecified type F42.9 [facility] [address] [id number] [address] [place] [phone] SP 15 Dec, 2016 SP [facility] [address] [id number] [address] [place] [phone] SP 14 Dec, 2016 Sprain of calcaneofibular li gament of right ankle, subsequent SP S93.411D [facility] [address] [facility] [id number] [address] [place] [phone] SP Dec, Post-traumatic stress disord er F43.10 and Major depressive SP recurrent, moderate F33.1 [facility] [address] [facility] [id number] [address] [place] [id number] SP Dec, Sprain of calcaneofibular li gament of right ankle, subsequent SP S93.411D [place] [address] [facility] [id number] [address] [place] [phone] SP Dec, Hyperlipidemia E78.5 SP [place] [address] [facility] [id number] [address] [place] [phone] SP Dec, SP [place] [address] [place] [id number] [place] [phone] SP Dec, Diabetes E11.9 ; Diabetic ne uropathy E11.40 ; Degenerative disc SP lumbar M51.36 ; Hyperlipidemia E78.5 ; Insomnia G47.00 ; CAD (coronary artery disease) I25.10 ; Major depressive disorder, recurrent, moderate F33.1 ; Post- traumatic stress disorder F43.10 and Other irritable bowel syndrome K58.8 [place] [address] [place] [id number] [address] [place] [phone] SP November, Diabetic neuropathy E11.40 a nd Hyperlipidemia E78.5 SP [place] [address] [facility] [id number] [address] [place] [phone] SP November, Degenerative disc disease, l umbar M51.36 SP [place] [address] [place] [id number] [address] [place] [phone] SP Oct, SP [place] [address] [place] [id number] [address] [place] [phone] SP Oct, Degenerative disc disease, l umbar M51.36 SP [place] [address] [facility] [id number] [address] [place] [phone] SP Sep, Degenerative disc disease, l umbar M51.36 and HTN (hypertension) SP [place] [address] [facility] [id number] [address] [place] [id number] SP Sep, Diabetic neuropathy E11.40 ; HTN (hypertension) I10 ; SP disc disease, lumbar M51.36 ; Hyperlipidemia E78.5 ; Insomnia G47.00 ; CAD (coronary artery disease) I25.10 and Diabetes E11.9 [facility] [address] [id number] [address] [place] [phone] SP Aug, SP [facility] [address] [facility] [id number] [address] [place] [id number] SP Aug, Type 2 diabetes mellitus wit h hyperglycemia E11.65 SP [facility] [address] [facility] [id number] [address] [place] [phone] SP Aug, SP [facility] [address] [facility] [id number] [address] [place] [phone] SP Jul, SP [facility] [address] [facility] [id number] [address] [place] [phone] SP Jul, SP [facility] [address] [facility] [id number] [address] [place] [phone] SP Jun, SP [facility] [address] [facility] [id number] [address] [place] [phone] SP Jun, SP [facility] [address] [facility] [id number] [address] [place] [phone] SP Jun, SP [facility] [address] [facility] [id number] [address] [place] [phone] SP Jun, SP [facility] [address] [facility] [id number] [address] [place] [phone] SP May, Major depressive disorder, r ecurrent episode, moderate F33.1 and SPtraumatic stress disorder F43.10 [facility] [address] [facility] [id number] [address] [place] [phone] SP May, Major depressive disorder, r ecurrent episode, moderate F33.1 and SPtraumatic stress disorder F43.10 [facility] [address] [facility] [id number] [address] [place] [phone] SP May, Diabetes E11.9 ; Diabetic ne uropathy E11.40 ; HTN (hypertension) SP ; Gastritis K29.70 ; Hyperlipidemia E78.5 ; Insomnia G47.00 and Major depressive disorder, recurrent, moderate F33.1 [place] [address] [facility] [id number] [address] [place] [id number] SP May, Major depressive disorder, r ecurrent episode, moderate F33.1 SP [facility] [address] [facility] [id number] [address] [place] [phone] SP Apr, SP [facility] [address] [facility] [id number] [address] [place] [phone] SP Apr, Major depressive disorder, r ecurrent episode, moderate F33.1 and SPtraumatic stress disorder F43.10 [place] [address] [facility] [id number] [address] [place] [phone] SP Apr, Diabetes E11.9 ; Diabetic ne uropathy E11.40 ; Degenerative disc SP lumbar M51.36 ; HTN (hypertension) I10 ; Hyperlipidemia E78.5 ; Chronic pain G89.29 ; CAD (coronary artery disease) I25.10 and Major depressive disorder, recurrent, moderate F33.1 [place] [address] [facility] [id number] [address] [place] [phone] SP Apr, Major depressive disorder, r ecurrent episode, moderate F33.1 and SPtraumatic stress disorder F43.10 [place] [address] [address] [facility] [id number] [address] [place] [phone] SP Apr, Major depressive disorder, r ecurrent episode, moderate F33.1 and SPtraumatic stress disorder F43.10 [place] [address] [address] [facility] [id number] [address] [place] [phone] SP Apr, Major depressive disorder, r ecurrent episode, moderate F33.1 and SP episodic mood disorder F39 [place] [address] [address] [facility] [id number] [address] [place] [phone] SP Apr, Chronic pain G89.29 ; Diabet ic neuropathy E11.40 ; HTN SP I10 ; Insomnia G47.00 ; CAD (coronary artery disease) I25.10 ; Hyperlipidemia E78.5 ; Degenerative disc disease, lumbar M51.36 ; Diabetes E11.9 and Gastritis K29.70 [facility] [address] [id number] SP Sep, SP [facility] [address] [facility] [id number] [place] [phone] SP Aug, SP [facility] [address] [id number] SP Jul, Major depressive disorder, r ecurrent episode, moderate F33.1 SP [facility] [address] [place] [id number] [place] [phone] SP Jul, Unspecified episodic mood di sorder F39 SP [place] [id number] [place] [phone] SP Jul, SP [facility] [address] [id number] SP Jul, SP [facility] [address] [id number] SP Jul, SP [facility] [address] [address] SP Jul, Type 2 diabetes mellitus wit h hyperglycemia E11.65 ; Diabetic SP E11.40 ; Degenerative disc disease, lumbar M51.36 ; HTN (hypertension) I10 ; Gastritis K29.70 ; Hyperlipidemia E78.5 and CAD (coronary artery disease) I25.10 [place] [id number] [place] [id number] [place] [phone] SP Jul, Severe episode of recurrent major depressive disorder, without SP features F33.2 [place] [address] [place] [id number] [place] [phone] SP Jul, SP [facility] [id number] [place] [phone] SP Jun, SP [facility] [address] [place] [id number] [address] [place] [id number] SP Jun, Diabetes E11.9 ; Diabetic ne uropathy E11.40 ; Degenerative disc SP lumbar M51.36 ; HTN (hypertension) I10 ; Gastritis K29.70 ; Hyperlipidemia E78.5 ; Unspecified episodic mood disorder F39 ; Depression F32.9 and CAD (coronary artery disease) I25.10 [facility] [address] [phone] SP Jun, SP [facility] [address] [place] [id number] [place] [phone] SP Jun, SP [facility] [id number] [place] [phone] SP Jun, Diabetes E11.9 ; Diabetic ne uropathy E11.40 ; Degenerative disc SP lumbar M51.36 ; HTN (hypertension) I10 ; Gastritis K29.70 ; Chronic pain G89.29 ; Insomnia G47.00 and Unspecified episodic mood disorder F39 [place] [id number] [phone] SP May, Diabetic neuropathy E11.40 ; Degenerative disc disease, lumbar SP ; HTN (hypertension) I10 ; Gastritis K29.70 ; Hyperlipidemia E78.5 ; Chronic pain G89.29 ; Insomnia G47.00 ; Unspecified episodic mood disorder F39 ; Diabetes E11.9 ; CAD (coronary artery disease) I25.10 and H/O Gram positive sepsis Z86.19 [facility] [address] [id number] [address] [place] [phone] SP May, SP [facility] [id number] [place] [phone] SP May, SP [facility] [id number] [place] [phone] SP May, SP [facility] [id number] [place] [phone] SP May, SP [facility] [address] [facility] [id number] [address] [place] [phone] SP May, UTI (urinary tract infection ) N39.0 ; Diabetes E11.9 ; Diabetic SP E11.40 ; Hyperlipidemia E78.5 and Chronic pain G89.29 [facility] [address] [facility] [id number] [address] [place] [phone] SP May, Insomnia, unspecified G47.00 and Chronic pain G89.29 SP [facility] [address] [facility] [id number] [address] [place] [phone] SP May, SP [facility] [address] [facility] [id number] [address] [place] [phone] SP May, SP [facility] [address] [facility] [id number] [address] [place] [phone] SP May, SP [facility] [address] [facility] [id number] [address] [place] [phone] SP Apr, Insomnia, unspecified G47.00 ; Chronic pain G89.29 and SP episodic mood disorder F39 [facility] [address] [facility] [id number] [address] [place] [phone] SP Apr, Unspecified episodic mood di sorder F39 SP [facility] [address] [facility] [id number] [address] [place] [phone] SP Apr, Major depression F32.9 SP [facility] [address] [facility] [id number] [address] [place] [id number] SP Apr, SP [facility] [address] [facility] [id number] [address] [place] [phone] SP Apr, Diabetes E11.9 ; Diabetic ne uropathy E11.40 ; Degenerative disc SP lumbar M51.36 ; HTN (hypertension) I10 ; Gastritis K29.70 ; Hyperlipidemia E78.5 ; Chronic pain G89.29 and Insomnia G47.00 [facility] [address] [facility] [id number] [address] [place] [phone] SP Mar, SP [facility] [address] [id number] [place] [phone] SP Mar, [facility] [id number] [place] [phone] SP Mar, [facility] [address] [address] [id number] [place] [phone] SP Mar, Diabetes mellitus 250.00 ; D iabetic neuropathy 250.60 ; CAD SP artery disease) 414.00 ; Degenerative disc disease, lumbar 722.52 ; Gastritis 535.50 and Insomnia 780.52 [place] [address] [id number] SP Mar, Diabetes mellitus 250.00 ; D egenerative disc disease, lumbar SP ; Essential hypertension 401.9 ; Gastritis 535.50 and Chronic pain 338.29 [facility] [address] [id number] SP Feb, [facility] [address] [id number] SP Feb, [facility] [address] [id number] SP Jan, [facility] [address] [phone] SP Jan, Diabetes mellitus 250.00 ; D iabetic neuropathy 250.60 ; SP disc disease, lumbar 722.52 ; CAD (coronary artery disease) 414.00 ; Essential hypertension 401.9 ; Gastritis 535.50 ; Hyperlipidemia 272.4 and Distal end of ulna fracture, closed 813.43 [facility] [address] [id number] SP Dec, Wrist pain 719.43 and Diabet es mellitus 250.00 SP [facility] [address] [phone] SP May, [facility] [address] [id number] [address] [place] [address], [place] [id number] SP 10 Dec, 2009 SP [facility] [address] [id number] [address] [place] [address], [place] [phone] SP 13 Nov, 2009 SP [facility] [address] [id number] [address] [place] [address], [place] [id number] SP 16 Oct, 2009 SP [facility] [address] [id number] [address] [place] [address], [place] [phone] SP 17 Sep, 2009 SP [facility] [address] [id number] [address] [place] [address], [place] [id number] SP Sep, SP [facility] [address] [id number] [address] [place] [address], [place] [phone] SP Jun, SP [facility] [address] [id number] [address] [place] [address], [place] [id number] SP Jun, SP [facility] [address] [id number] [address] [place] [address], [place] [id number] SP Jun, SP [facility] [address] [id number] [address] [place] [address], [place] [id number] SP Jun, SP [facility] [address] [id number] [address] [place] [address], [place] [phone] SP Jun, SP [facility] [address] [id number] [address] [place] [address], [place] [id number] SP Jun, SP [facility] [address] [id number] [address] [place] [address], [place] [id number] SP Jun, SP [facility] [address] [id number] [address] [place] [address], [place] [phone] SP May, SP [facility] [address] [id number] [address] [place] [address], [place] [phone] SP May, SP [facility] [address] [id number] [address] [place] [address], [place] [phone] SP May, SP [facility] [address] [id number] [address] [place] [phone] SP May, SP [facility] [address] [id number] [address] [place] [phone] SP Apr, SP [facility] [address] [id number] [address] [place] [id number] SP Apr, SP [facility] [address] [id number] [address] [place] [phone] SP Apr, SP [facility] [address] [facility] [id number] [address] [place] [phone] SP Mar, SP [facility] [address] [id number] [address] [place] [phone] SP Dec, SP IMMUNIZATIONS No Known Immunizations SOCIAL HISTORY Never Assessed REASON FOR VISIT IPRO start PLAN OF CARE VITAL SIGNS MEDICATIONS Unknown [...]
--- OUTSIDE RECORDS SUMMARY | 2019-06-14 02:07 | XMS REPORT ---
Author Author AMINA ARECHIGA POS Organization [facility] SP Address [address] [place] [address] SP Care Team Providers Care Rotor Winder Name Role Phone POS AMINA ARECHIGA Unavailable SP PROBLEMS Type Condition ICD9-CM Code [id number] Code Onset Dates Condition S tatus SNOMED POS Problem Type 2 diabetes mellitus with hyperglycemia E11.65 Active POS Problem Major depressive disorder, recurrent episode, moderate F33.1 Active SP Problem Obsessive-compulsive disorder, unspecified type F4 2.9 Active SP Problem Ataxia R27.0 Active [id number] SP Problem Falls frequently R29.6 Active 279 586683 SP Problem Type 2 diabetes mellitus with other diab etic neurological complication SP E11.49 Active 52552832 SP Problem residential current use of insulin Z79.4 Active 618147075 SP Problem History of pulmonary embolism Z86.711 Active 491893441 SP Problem Type 2 diabetes mellitus with other diabetic kid allen complication SP Active 23264683 SP Problem Insomnia G47.00 Active 066484933 SP Problem Degenerative disc disease, lumbar M51.36 Active 91937357 SP Problem HTN (hypertension) I10 Active 3 9221323 SP Problem Hyperlipidemia E78.5 Active 10499 004 SP Problem CAD (coronary artery disease) I25.10 Active 24468055 SP Problem Chronic pain G89.29 Active 4869475 1 SP Problem Post-traumatic stress disorder F43.10 Active 57974803 SP ALLERGIES No Information ENCOUNTERS Encounter Location Date Diagnosis POS [facility] [address] [facility] [id number] [address] [place] [phone] SP Jul, SP [facility] [address] [facility] [id number] [address] [place] [phone] SP Jul, SP [facility] [address] [facility] [id number] [address] [place] [phone] SP Jun, SP [place] [address] [place] [id number] [address] [place] [address] SP Jun, SP [place] [address] [place] [id number] [place] [phone] SP Jun, Major depressive disorder, r ecurrent episode, moderate F33.1 ; SPtraumatic stress disorder F43.10 and Obsessive-compulsive disorder, unspecified type F42.9 [place] [address] [place] [id number] [place] [phone] SP Jun, Major depressive disorder, r ecurrent episode, moderate F33.1 and SPtraumatic stress disorder F43.10 [place] [address] [place] [id number] [place] [phone] SP May, Degenerative disc disease, l umbar M51.36 SP [place] [address] [address] SP May, [place] [address] [phone] SP May, Fatigue, unspecified type R5 3.83 ; Type 2 diabetes mellitus with SP E11.65 ; Encounter for immunization Z23 ; Type 2 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 E11.49 ; Type 2 diabetes mellitus with other diabetic kidney complication E11.29 ; residential current use of insulin Z79.4 and Falls frequently R29.6 [place] [address] [place] [id number] [address] [place] [phone] SP May, Type 2 diabetes mellitus wit h hyperglycemia E11.65 SP [place] [address] [place] [id number] [address] [place] [phone] SP May, [place] [address] [place] [id number] [place] [address] SP Apr, Degenerative disc disease, l umbar M51.36 ; Chronic pain G89.29 ; SP frequently R29.6 ; Type 2 diabetes mellitus with hyperglycemia E11.65 and Type 2 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 E11.49 [facility] [address] [id number] [address] [place] [address] SP Apr, SP [facility] [address] [facility] [id number] [address] [place] [phone] SP Apr, Major depressive disorder, r ecurrent episode, moderate F33.1 and SPtraumatic stress disorder F43.10 [facility] [address] [facility] [id number] [address] [place] [phone] SP Apr, SP [facility] [address] [facility] [id number] [address] [place] [phone] SP Apr, Post-traumatic stress disord er F43.10 ; Diabetes E11.9 ; SP E78.5 ; Major depressive disorder, recurrent episode, moderate F33.1 ; Other irritable bowel syndrome K58.8 and Chronic pain G89.29 [facility] [address] [facility] [id number] [address] [place] [phone] SP Mar, Chronic pain G89.29 SP [facility] [address] [facility] [id number] [address] [place] [phone] SP Feb, Type 2 diabetes mellitus wit h other diabetic neurological SP E11.49 ; Type 2 diabetes mellitus with other diabetic kidney complication E11.29 ; Degenerative disc disease, lumbar M51.36 and Chronic pain G89.29 [facility] [address] [facility] [id number] [address] [place] [phone] SP Jan, SP [facility] [address] [facility] [id number] [address] [place] [phone] SP Jan, SP [facility] [address] [facility] [id number] [address] [place] [phone] SP Jan, SP [facility] [address] [facility] [id number] [address] [place] [phone] SP Jan, SP [facility] [address] [facility] [id number] [address] [place] [phone] SP Jan, SP [facility] [address] [facility] [id number] [address] [place] [phone] SP Jan, SP [facility] [address] [facility] [id number] [address] [place] [phone] SP Jan, Slurred speech R47.81 ; Atax ia R27.0 ; Left arm weakness R29.898 SP Type 2 diabetes mellitus with hyperglycemia E11.65 and Type 2 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 E11.49 [facility] [address] [facility] [id number] [address] [place] [phone] SP Jan, SP [facility] [address] [facility] [id number] [address] [place] [phone] SP Jan, Type 2 diabetes mellitus wit h hyperglycemia E11.65 and SP vomiting with nausea, unspecified vomiting type R11.2 [place] [address] [place] [id number] [place] [phone] SP Dec, CAD (coronary artery disease ) I25.10 and Atypical chest pain SP [facility] [address] [facility] [id number] [address] [place] [phone] SP Dec, SP [facility] [address] [facility] [id number] [address] [place] [phone] SP Dec, Diabetes E11.9 ; Type 2 diab etes mellitus with hyperglycemia SP and Intractable vomiting with nausea, unspecified vomiting type R11.2 [facility] [address] [facility] [id number] [address] [place] [phone] SP Dec, Chronic pain G89.29 SP [facility] [address] [facility] [id number] [address] [place] [phone] SP November, SP [place] [address] [place] [id number] [address] [place] [phone] SP November, Diabetes E11.9 ; CAD (trin[place] ry artery disease) I25.10 ; Atypical SP pain R07.89 ; Type 2 diabetes mellitus with hyperglycemia E11.65 ; Type 2 diabetes mellitus with other diabetic kidney complication E11.29 ; roasterman current use of insulin Z79.4 and Chronic pain G89.29 [facility] [address] [id number] [address] [place] [phone] SP Oct, SP [facility] [address] [facility] [id number] [address] [place] [phone] SP Oct, Chronic pain G89.29 SP [facility] [address] [facility] [id number] [address] [place] [phone] SP Sep, Diabetes E11.9 SP [facility] [address] [id number] [address] [place] [phone] SP Sep, Chronic pain G89.29 SP [facility] [address] [facility] [id number] [address] [place] [phone] SP Sep, SP [facility] [address] [facility] [id number] [address] [place] [phone] SP Sep, Falls frequently R29.6 ; Elier g term current use of insulin Z79.4 SP Type 2 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 E11.49 [facility] [address] [facility] [id number] [address] [place] [phone] SP Sep, SP [facility] [address] [facility] [id number] [address] [place] [phone] SP Sep, Diabetes E11.9 SP [facility] [address] [facility] [id number] [address] [place] [phone] SP Aug, SP [facility] [address] [facility] [id number] [address] [place] [phone] SP Aug, Chronic pain G89.29 SP [facility] [address] [facility] [id number] [address] [place] [phone] SP Aug, SP [facility] [address] [facility] [id number] [address] [place] [phone] SP Aug, Chronic pain G89.29 SP [facility] [address] [facility] [id number] [address] [place] [phone] SP Jul, SP [facility] [address] [facility] [id number] [address] [place] [phone] SP Jul, Diabetes E11.9 and Type 2 di abetes mellitus with other diabetic SP complication E11.29 [facility] [address] [facility] [id number] [address] [place] [phone] SP Jul, Type 2 diabetes mellitus wit h other diabetic kidney complication SP [facility] [address] [facility] [id number] [address] [place] [phone] SP Jul, SP [facility] [address] [facility] [id number] [address] [place] [address] SP Jul, Chronic pain G89.29 SP [facility] [address] [facility] [id number] [address] [place] [phone] SP Jun, Diabetes E11.9 SP [facility] [address] [facility] [id number] [address] [place] [phone] SP Jun, Chronic pain G89.29 SP [facility] [address] [facility] [id number] [address] [place] [phone] SP Jun, Diabetes E11.9 ; Atypical ch est pain R07.89 ; roasterman current SP of insulin Z79.4 ; Type 2 diabetes mellitus with other diabetic kidney complication E11.29 ; Type 2 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 E11.49 ; History of pulmonary embolism Z86.711 and History of CVA (cerebrovascular accident) Z86.73 [facility] [address] [facility] [id number] [address] [place] [phone] SP May, SP [facility] [address] [facility] [id number] [address] [place] [phone] SP May, Chronic pain G89.29 SP [facility] [address] [facility] [id number] [address] [place] [phone] SP Apr, Chronic pain G89.29 SP [facility] [address] [facility] [id number] [address] [place] [phone] SP Apr, SP [facility] [address] [facility] [id number] [address] [place] [phone] SP Mar, Chronic pain G89.29 SP [facility] [address] [facility] [id number] [address] [place] [phone] SP 18 Mar, 2017 Diabetes E11.9 SP [facility] [address] [facility] [id number] [address] [place] [phone] SP Mar, SP [place] [address] [facility] [id number] [place] [phone] SP Mar, Degenerative disc disease, l umbar M51.36 SP [place] [address] [place] [id number] [address] [place] [phone] SP Feb, Diabetes E11.9 SP [place] [address] [facility] [id number] [address] [place] [phone] SP Feb, Diabetes E11.9 SP [place] [address] [place] [id number] [place] [phone] SP 16 Feb, 2017 Diabetes E11.9 ; HTN (hypert ension) I10 ; Diabetic neuropathy SP and Leg cramps R25.2 [place] [address] [place] [id number] [place] [phone] SP 15 Feb, 2017 Sprain of calcaneofibular li gament of right ankle, subsequent SP S93.411D ; Major depressive disorder, recurrent episode, moderate F33.1 ; Diabetes E11.9 ; Hyperlipidemia E78.5 ; Post-traumatic stress disorder F43.10 and Other irritable bowel syndrome K58.8 [place] [address] [facility] [id number] [address] [place] [phone] SP 14 Feb, 2017 Major depressive disorder, r ecurrent episode, moderate F33.1 ; SPtraumatic stress disorder F43.10 and Obsessive-compulsive disorder, unspecified type F42.9 [facility] [address] [id number] [address] [place] [phone] SP Feb, SP [facility] [address] [id number] [address] [place] [phone] SP Feb, Post-traumatic stress disord er F43.10 and Major depressive SP recurrent, moderate F33.1 [facility] [address] [id number] [address] [place] [phone] SP Feb, Diabetes E11.9 SP [facility] [address] [id number] [address] [place] [phone] SP Feb, Degenerative disc disease, l umbar M51.36 SP [facility] [address] [facility] [id number] [address] [place] [phone] SP Feb, Post-traumatic stress disord er F43.10 and Major depressive SP recurrent, moderate F33.1 [facility] [address] [id number] [address] [place] [phone] SP Feb, SP [facility] [address] [id number] [address] [place] [phone] SP Feb, Diabetes E11.9 SP [facility] [address] [id number] [address] [place] [phone] SP Jan, Diabetes E11.9 SP [facility] [address] [facility] [id number] [address] [place] [phone] SP Jan, Post-traumatic stress disord er F43.10 and Major depressive SP recurrent, moderate F33.1 [facility] [address] [id number] [address] [place] [phone] SP Jan, Diabetes E11.9 SP [facility] [address] [facility] [id number] [address] [place] [phone] SP Jan, Diabetes E11.9 SP [facility] [address] [facility] [id number] [address] [place] [phone] SP Jan, SP [facility] [address] [id number] [address] [place] [phone] SP Jan, SP [facility] [address] [id number] [address] [place] [phone] SP Jan, Post-traumatic stress disord er F43.10 and Major depressive SP recurrent, moderate F33.1 [facility] [address] [id number] [address] [place] [phone] SP Jan, SP [facility] [address] [id number] [address] [place] [phone] SP Jan, Major depressive disorder, r ecurrent episode, moderate F33.1 ; SPtraumatic stress disorder F43.10 and Obsessive-compulsive disorder, unspecified type F42.9 [facility] [address] [id number] [address] [place] [phone] SP Jan, SP [facility] [address] [id number] [address] [place] [phone] SP Jan, Diabetes E11.9 SP [facility] [address] [id number] [address] [place] [phone] SP Jan, SP [facility] [address] [id number] [address] [place] [phone] SP Jan, Sprain of calcaneofibular li gament of right ankle, subsequent SP S93.411D [facility] [address] [id number] [address] [place] [phone] SP Jan, Post-traumatic stress disord er F43.10 and Major depressive SP recurrent, moderate F33.1 [facility] [address] [id number] [address] [place] [phone] SP Jan, Diabetes E11.9 SP [facility] [address] [id number] [address] [place] [phone] SP Dec, Major depressive disorder, r ecurrent episode, moderate F33.1 ; SPtraumatic stress disorder F43.10 and Obsessive-compulsive disorder, unspecified type F42.9 [facility] [address] [id number] [address] [place] [phone] SP 15 Dec, 2016 SP [facility] [address] [facility] [id number] [address] [place] [phone] SP 14 Dec, 2016 Sprain of calcaneofibular li gament of right ankle, subsequent SP S93.411D [facility] [address] [id number] [address] [place] [phone] SP 13 Dec, 2016 Post-traumatic stress disord er F43.10 and Major depressive SP recurrent, moderate F33.1 [place] [address] [facility] [id number] [address] [place] [address] SP 13 Dec, 2016 Sprain of calcaneofibular li gament of right ankle, subsequent SP S93.411D [place] [address] [facility] [id number] [address] [place] [phone] SP Dec, Hyperlipidemia E78.5 SP [place] [address] [facility] [id number] [address] [place] [address] SP Dec, SP [place] [address] [facility] [id number] [address] [place] [phone] SP Dec, Diabetes E11.9 ; Diabetic ne uropathy E11.40 ; Degenerative disc SP lumbar M51.36 ; Hyperlipidemia E78.5 ; Insomnia G47.00 ; CAD (coronary artery disease) I25.10 ; Major depressive disorder, recurrent, moderate F33.1 ; Post- traumatic stress disorder F43.10 and Other irritable bowel syndrome K58.8 [place] [address] [facility] [id number] [address] [place] [phone] SP November, Diabetic neuropathy E11.40 a nd Hyperlipidemia E78.5 SP [place] [address] [facility] [id number] [address] [place] [phone] SP November, Degenerative disc disease, l umbar M51.36 SP [place] [address] [facility] [id number] [address] [place] [phone] SP Oct, SP [facility] [address] [place] [id number] [place] [address] SP Oct, Degenerative disc disease, l umbar M51.36 SP [facility] [address] [place] [id number] [address] [place] [phone] SP Sep, Degenerative disc disease, l umbar M51.36 and HTN (hypertension) SP [facility] [address] [facility] [id number] [place] [phone] SP Sep, Diabetic neuropathy E11.40 ; HTN (hypertension) I10 ; SP disc disease, lumbar M51.36 ; Hyperlipidemia E78.5 ; Insomnia G47.00 ; CAD (coronary artery disease) I25.10 and Diabetes E11.9 [facility] [address] [place] [id number] [place] [phone] SP Aug, SP [facility] [address] [phone] SP Aug, Type 2 diabetes mellitus wit h hyperglycemia E11.65 SP [facility] [address] [phone] SP Aug, [facility] [address] [phone] SP Jul, SP [facility] [address] [place] [id number] [address] [place] [phone] SP Jul, [facility] [address] [place] [id number] [address] [place] [phone] SP Jun, [facility] [address] [place] [id number] [address] [place] [phone] SP Jun, [facility] [address] [place] [id number] [address] [place] [phone] SP Jun, SP [facility] [address] [place] [address] SP Jun, SP [facility] [address] [facility] [id number] [address] [place] [phone] SP May, Major depressive disorder, r ecurrent episode, moderate F33.1 and SPtraumatic stress disorder F43.10 [facility] [address] [facility] [id number] [address] [place] [address] SP May, Major depressive disorder, r ecurrent episode, moderate F33.1 and SPtraumatic stress disorder F43.10 [facility] [address] [facility] [id number] [address] [place] [address] SP May, Diabetes E11.9 ; Diabetic ne uropathy E11.40 ; HTN (hypertension) SP ; Gastritis K29.70 ; Hyperlipidemia E78.5 ; Insomnia G47.00 and Major depressive disorder, recurrent, moderate F33.1 [place] [address] [facility] [id number] [address] [place] [phone] SP May, Major depressive disorder, r ecurrent episode, moderate F33.1 SP [place] [address] [facility] [id number] [address] [place] [phone] SP Apr, SP [facility] [address] [facility] [id number] [address] [place] [phone] SP Apr, Major depressive disorder, r ecurrent episode, moderate F33.1 and SPtraumatic stress disorder F43.10 [place] [address] [facility] [id number] [address] [place] [phone] SP Apr, Diabetes E11.9 ; Diabetic ne uropathy E11.40 ; Degenerative disc SP lumbar M51.36 ; HTN (hypertension) I10 ; Hyperlipidemia E78.5 ; Chronic pain G89.29 ; CAD (coronary artery disease) I25.10 and Major depressive disorder, recurrent, moderate F33.1 [facility] [address] [facility] [id number] [address] [place] [address] SP Apr, Major depressive disorder, r ecurrent episode, moderate F33.1 and SPtraumatic stress disorder F43.10 [facility] [address] [facility] [id number] [address] [place] [phone] SP Apr, Major depressive disorder, r ecurrent episode, moderate F33.1 and SPtraumatic stress disorder F43.10 [facility] [address] [facility] [id number] [address] [place] [address] SP Apr, Major depressive disorder, r ecurrent episode, moderate F33.1 and SP episodic mood disorder F39 [facility] [address] [facility] [id number] [address] [place] [phone] SP Apr, Chronic pain G89.29 ; Diabet ic neuropathy E11.40 ; HTN SP I10 ; Insomnia G47.00 ; CAD (coronary artery disease) I25.10 ; Hyperlipidemia E78.5 ; Degenerative disc disease, lumbar M51.36 ; Diabetes E11.9 and Gastritis K29.70 [facility] [address] [facility] [id number] [address] [place] [id number] SP Sep, SP [facility] [address] [facility] [id number] [address] [place] [phone] SP Aug, SP [facility] [address] [facility] [id number] [address] [place] [phone] SP Jul, Major depressive disorder, r ecurrent episode, moderate F33.1 SP [facility] [address] [facility] [id number] [address] [place] [phone] SP Jul, Unspecified episodic mood di sorder F39 SP [facility] [address] [facility] [id number] [address] [place] [id number] SP Jul, SP [facility] [address] [facility] [id number] [address] [place] [id number] SP Jul, SP [facility] [address] [facility] [id number] [address] [place] [id number] SP Jul, SP [facility] [address] [facility] [id number] [address] [place] [id number] SP Jul, Type 2 diabetes mellitus wit h hyperglycemia E11.65 ; Diabetic SP E11.40 ; Degenerative disc disease, lumbar M51.36 ; HTN (hypertension) I10 ; Gastritis K29.70 ; Hyperlipidemia E78.5 and CAD (coronary artery disease) I25.10 [facility] [address] [facility] [id number] [address] [place] [id number] SP Jul, Severe episode of recurrent major depressive disorder, without SP features F33.2 [facility] [facility] [address] [facility] [id number] [place] [phone] SP Jul, SP [facility] [address] [place] [id number] [place] [phone] SP Jun, SP [facility] [id number] [place] [phone] SP Jun, Diabetes E11.9 ; Diabetic ne uropathy E11.40 ; Degenerative disc SP lumbar M51.36 ; HTN (hypertension) I10 ; Gastritis K29.70 ; Hyperlipidemia E78.5 ; Unspecified episodic mood disorder F39 ; Depression F32.9 and CAD (coronary artery disease) I25.10 [facility] [id number] [place] [phone] SP Jun, SP [facility] [id number] [place] [phone] SP Jun, SP [facility] [id number] [place] [phone] SP Jun, Diabetes E11.9 ; Diabetic ne uropathy E11.40 ; Degenerative disc SP lumbar M51.36 ; HTN (hypertension) I10 ; Gastritis K29.70 ; Chronic pain G89.29 ; Insomnia G47.00 and Unspecified episodic mood disorder F39 [facility] [address] [facility] [id number] [address] [place] [phone] SP May, Diabetic neuropathy E11.40 ; Degenerative disc disease, lumbar SP ; HTN (hypertension) I10 ; Gastritis K29.70 ; Hyperlipidemia E78.5 ; Chronic pain G89.29 ; Insomnia G47.00 ; Unspecified episodic mood disorder F39 ; Diabetes E11.9 ; CAD (coronary artery disease) I25.10 and H/O Gram positive sepsis Z86.19 [facility] [address] [id number] [address] [place] [phone] SP May, SP [facility] [address] [facility] [id number] [address] [place] [phone] SP May, SP [facility] [address] [facility] [id number] [address] [place] [phone] SP May, SP [facility] [address] [facility] [id number] [address] [place] [phone] SP May, SP [facility] [address] [facility] [id number] [address] [place] [phone] SP May, UTI (urinary tract infection ) N39.0 ; Diabetes E11.9 ; Diabetic SP E11.40 ; Hyperlipidemia E78.5 and Chronic pain G89.29 [facility] [address] [facility] [id number] [address] [place] [phone] SP May, Insomnia, unspecified G47.00 and Chronic pain G89.29 SP [facility] [address] [facility] [id number] [address] [place] [phone] SP May, SP [facility] [address] [facility] [id number] [address] [place] [phone] SP May, SP [facility] [address] [facility] [id number] [address] [place] [phone] SP May, SP [facility] [address] [facility] [id number] [address] [place] [phone] SP Apr, Insomnia, unspecified G47.00 ; Chronic pain G89.29 and SP episodic mood disorder F39 [facility] [address] [facility] [id number] [address] [place] [phone] SP Apr, Unspecified episodic mood di sorder F39 SP [facility] [address] [phone] SP Apr, Major depression F32.9 SP [facility] [id number] [place] [phone] SP Apr, SP [facility] [address] [id number] SP Apr, Diabetes E11.9 ; Diabetic ne uropathy E11.40 ; Degenerative disc SP lumbar M51.36 ; HTN (hypertension) I10 ; Gastritis K29.70 ; Hyperlipidemia E78.5 ; Chronic pain G89.29 and Insomnia G47.00 [place] [address] [phone] SP Mar, SP [facility] [address] [phone] SP Mar, SP [facility] [address] [phone] SP Mar, [facility] [address] [id number] SP Mar, Diabetes mellitus 250.00 ; D iabetic neuropathy 250.60 ; CAD SP artery disease) 414.00 ; Degenerative disc disease, lumbar 722.52 ; Gastritis 535.50 and Insomnia 780.52 [place] [address] [phone] SP Mar, Diabetes mellitus 250.00 ; D egenerative disc disease, lumbar SP ; Essential hypertension 401.9 ; Gastritis 535.50 and Chronic pain 338.29 [facility] [address] [phone] SP Feb, [facility] [address] [phone] SP Feb, SP [facility] [address] [phone] SP Jan, SP [facility] [address] [facility] [id number] [address] [place] [phone] SP Jan, Diabetes mellitus 250.00 ; D iabetic neuropathy 250.60 ; SP disc disease, lumbar 722.52 ; CAD (coronary artery disease) 414.00 ; Essential hypertension 401.9 ; Gastritis 535.50 ; Hyperlipidemia 272.4 and Distal end of ulna fracture, closed 813.43 [facility] [id number] [place] [phone] SP Dec, Wrist pain 719.43 and Diabet es mellitus 250.00 SP [facility] [address] [facility] [id number] [address] [place] [phone] SP May, SP [facility] [id number] [place] [phone] SP Dec, SP [facility] [id number] [place] [phone] SP November, SP [facility] [address] [facility] [id number] [address] [place] [phone] SP Oct, SP [facility] [id number] [place] [phone] SP Sep, SP [facility] [address] [facility] [id number] [address] [place] [phone] SP Sep, SP [facility] [id number] [place] [phone] SP Jun, SP [facility] [address] [facility] [id number] [address] [place] [phone] SP Jun, SP [facility] [id number] [place] [phone] SP Jun, SP [facility] [id number] [place] [phone] SP Jun, SP [facility] [address] [id number] [address] [place] [phone] SP Jun, SP [facility] [address] [id number] [address] [place] [phone] SP Jun, SP [facility] [address] [id number] [address] [place] [phone] SP Jun, SP [facility] [address] [id number] [address] [place] [phone] SP May, SP [facility] [address] [id number] [address] [place] [phone] SP May, SP [facility] [address] [id number] [address] [place] [phone] SP May, SP [facility] [address] [facility] [id number] [address] [place] [phone] SP May, SP [facility] [address] [id number] [address] [place] [phone] SP Apr, SP [facility] [address] [id number] [address] [place] [phone] SP Apr, SP [facility] [address] [id number] [address] [place] [phone] SP Apr, SP [facility] [address] [facility] [id number] [address] [place] [phone] SP Mar, SP [facility] [address] [id number] [address] [place] [phone] SP Dec, SP IMMUNIZATIONS No Known Immunizations SOCIAL HISTORY Never Assessed REASON FOR VISIT Follow-up Depression/Trauma PLAN OF CARE Activity Details POS SP Follow Up Next available Reason: Fol low-up SP VITAL SIGNS MEDICATIONS Medication Instructions Dosage Frequency Start Date End Date Duration S tatus POS Metoclopramide HCl 10 mg Orally every 6 hours 1 tab 6h Unknown SP Accu-Chek Deepika Plus w/Device subcutaneously 4 times a day check reyes gars 6h 23 SP 2017 Unknown SP Sertraline HCl 25 MG Orally Once a day 1 tablet 24h 30 day(s) Not-Taking SP Prazosin HCl 2 MG Orally at bedtime 1 capsule Feb, 30 day(s) SP Hydrocodone-Acetaminophen 10-325 MG Orally 3 times a day 1 tablet a s needed 8h SP May, 2018 28 days Unknown SP Levemir FlexTouch 100 UNIT/ML Subcutaneous 55 units bid inject Unknown SP Accu-Chek Deepika Plus - subcutaneously 4 times a day to check glucos e 6h Feb, Unknown SP Gabapentin 600 MG Orally 3 times a day 1 tablet 8h 30 days Unknown SP Lamictal 100 mg Orally Once a day 1 tablet 24h Feb, 30 day(s) SP HydrOXYzine HCl 25 MG Orally at bedtime as needed for sleep 2 table t Feb, Not-Taking SP Plavix 75 MG TAKE 1 TABLET EVERY DAY 28 Unknown SP Pen Minto 31G X 6 MM as directed 6h Dec, Unknown SP Potassium Chloride ER 10 MEQ Orally Once a day 1 capsule with food 24h SP Crestor 40 mg Orally Once a day 1 tablet 24h Unknown SP NovoLog Flexpen 100 UNIT/ML Subcutaneous 3 times a day with meals inject 40 SP Unknown SP Lisinopril-Hydrochlorothiazide 20-12.5 MG Orally Once a day 1 table t 24h Dec, [id number] Unknown SP Accu-Chek Softclix Lancets - subcutaneously 4 times a day us e to check blood SP 6h Feb, Unknown SP RESULTS No Results PROCEDURES Procedure Date Ordered Result Body Site POS Psychotherapy, patient and family, 45 minutes, established p atient Jun 21, 2018 SP SP INSTRUCTIONS MEDICATIONS ADMINISTERED No [...]
--- OUTSIDE RECORDS SUMMARY | 2019-06-14 02:09 | XMS REPORT | Continuity of Care Document ---
Author Organization Unknown POS Address Unknown SP Phone Unavailable SP Allergies Active Description Code Type Severity POS Reaction Onset Reported/Identified POS to Patient Clinical Status POS Yes ibuprofen [id number] Drug Allergy SP N/A 02/18/2007 SP Yes Penicillins [id number] Drug Aller gy SP N/A 06/03/2015 SP Yes peas [id number] Drug Allergy Unknown SP N/A 01/19/2018 SP Medications There is no data. Problems Date Dx Coded Attending Type Code POS Diagnosed By POS 01/10/2015 CLAUDETTE PAULA MD Ot 813.43 SP FX DISTAL ULNA-CLOSED SP 01/10/2015 CLAUDETTE PAULA MD Ot 959 .3 SP INJ NOS SP 01/10/2015 CLAUDETTE PAULA MD Ot E000.8 SP OTHER EXTERNAL CAUSE STATUS SP 01/10/2015 CLAUDETTE PAULA MD Ot E888.9 SP FALL NOS SP 05/24/2015 JAIME GOLDBERG MD Ot E11.65 SP TYPE 2 DIABETES MELLITUS WITH HYPERGLYCE SP 05/24/2015 JAIME GOLDBERG MD Ot E78 .5 SP UNSPECIFIED SP 05/24/2015 JAIME GOLDBERG MD Ot F32 .9 SP DEPRESSIVE DISORDER, SINGLE EPISOD SP 05/24/2015 JAIME GOLDBERG MD Ot I10 SP (PRIMARY) HYPERTENSION SP 05/24/2015 JAIME GOLDBERG MD Ot R20 .0 SP OF SKIN SP 05/24/2015 JAIME GOLDBERG MD Ot R45.851 SP SUICIDAL IDEATIONS SP 05/24/2015 JAIME GOLDBERG MD Ot E11.65 SP SP 05/24/2015 JAIME GOLDBERG MD Ot E78 .5 SP SP 05/24/2015 JAIME GOLDBERG MD Ot F32 .9 SP SP 05/24/2015 JAIME GOLDBERG MD Ot I10 SP SP 05/24/2015 YUSUF AQUINO, JAIME Pink Ot R20 .0 SP SP 05/24/2015 YUSUF AQUINO, JAIME Pink Ot R45.851 SP SP 06/06/2015 LOBITO AQUINO, МАРИЯ Tan Ot E11. 65 SP SP 06/06/2015 МАРИЯ ROBIN MD Ot A41. 51 SP SP 06/06/2015 LOBITO AQUINO, МАРИЯ Tan Ot E11. 65 SP SP 06/06/2015 LOBITO AQUINO, МАРИЯ Tan Ot E78. 5 SP SP 06/06/2015 LOBITO AQUION, МАРИЯ Tan Ot E83. 42 SP SP 06/06/2015 LOBITO AQUINO, МАРИЯ Tan Ot E86. 0 SP SP 06/06/2015 LOBITO AQUINO, МАРИЯ Tan Ot E87. 2 SP SP 06/06/2015 МАРИЯ ROBIN MD Ot E87. 6 SP SP 06/06/2015 LOBITO AQUINO, МАРИЯ Tan Ot F31. 9 SP SP 06/06/2015 МАРИЯ ROBIN MD Ot I10 SP SP 06/06/2015 LOBITO AQUINO, МАРИЯ Tan Ot N17. 9 SP SP 06/06/2015 LOBITO AQUINO, МАИРЯ Tan Ot N39. 0 SP SP 06/06/2015 МАРИЯ ROBIN MD Ot R65. 21 SP SP 06/06/2015 LOBITO AQUINO, МАРИЯ Tan Ot Z79. 4 SP SP 06/06/2015 МАРИЯ ROBIN MD Ot Z86. 73 SP SP 06/06/2015 МАРИЯ ROBIN MD Ot Z91. 14 SP SP 06/08/2015 МАРИЯ ROBIN MD Ot A41. 51 SP DUE TO ESCHERICHIA COLI [E. COLI] SP 06/08/2015 LOBITO AQUINO, МАРИЯ Tan Ot E11. 65 SP 2 DIABETES MELLITUS WITH HYPERGLYCE SP 06/08/2015 МАРИЯ ROBIN MD Ot E78. 5 SP UNSPECIFIED SP 06/08/2015 МАРИЯ ROBIN MD Ot E83. 42 SP SP 06/08/2015 МАРИЯ ROBIN MD Ot E86. 0 SP SP 06/08/2015 LOBITO AQUINO, МАРИЯ Tan Ot E87. 2 SP SP 06/08/2015 МАРИЯ ROBIN MD Ot E87. 6 SP SP 06/08/2015 МАРИЯ ROBIN MD Ot F31. 9 SP DISORDER, UNSPECIFIED SP 06/08/2015 МАРИЯ ROBIN MD Ot I10 SP (PRIMARY) HYPERTENSION SP 06/08/2015 МАРИЯ ROBIN MD Ot N17. 9 SP KIDNEY FAILURE, UNSPECIFIED SP 06/08/2015 МАРИЯ ROBIN MD Ot N39. 0 SP TRACT INFECTION, SITE NOT SPECIF SP 06/08/2015 МАРИЯ ROBIN MD, Ot R65. 21 SP SEPSIS WITH SEPTIC SHOCK SP 06/08/2015 МАРИЯ ROBIN MD, Ot Z79. 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 14 SP OTHER NONCOMPLIANCE WITH MEDIC SP 07/04/2015 PERKINS DO, AWA K Ot A41.9 SP SP 07/04/2015 PERKINS DO, AWA K Ot E11.43 SP SP 07/04/2015 PERKINS DO, AWA K Ot E11.65 SP SP 07/04/2015 PERKINS DO, AWA K Ot E78.0 SP SP 07/04/2015 PERKINS DO, AWA K Ot E86.0 SP SP 07/04/2015 PERKINS DO, AWA K Ot F17.21 0 SP SP 07/04/2015 PERKINS DO, AWA K Ot F31.9 SP SP 07/04/2015 PERKINS DO, AWA K Ot I10 SP SP 07/04/2015 PERKINS DO, AWA K Ot I95.9 SP SP 07/04/2015 PERKINS DO, AWA K Ot K31.84 SP SP 07/04/2015 PERKINS DO, AWA K Ot N17.9 SP SP 07/04/2015 PERKINS DO, AWA K Ot N39.0 SP SP 07/04/2015 PERKINS DO, AWA K Ot R65.20 SP SP 07/04/2015 PERKINS DO, AWA K Ot Z79.4 SP SP 07/04/2015 PERKINS DO, AWA K Ot Z86.73 SP SP 07/04/2015 PERKINS DO, AWA K Ot Z91.19 SP SP 07/07/2015 PERKINS DOJENNA K Ot A41.9 SP UNSPECIFIED ORGANISM SP 07/07/2015 JENN PERKINS DOA K Ot 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 07/07/2015 , AWA K Ot E11.65 SP 2 DIABETES MELLITUS WITH HYPERGLYCE SP 07/07/2015 PERKINS DO AWA K Ot E78.0 SP HYPERCHOLESTEROLEMIA SP 07/07/2015 PERKINS DO AWA K Ot E86.0 SP SP 07/07/2015 PERKINS DOJENNA K Ot F17.21 0 SP DEPENDENCE, CIGARETTES, UNCOMPL SP 07/07/2015 PERKINS DO AWA K Ot F31.9 SP DISORDER, UNSPECIFIED SP 07/07/2015 MADDIE HODGE AWA K Ot I10 SP (PRIMARY) HYPERTENSION SP 07/07/2015 MADDIE HODGE AWA K Ot I95.9 SP UNSPECIFIED SP 07/07/2015 AWA K Ot K31.84 SP SP 07/07/2015 MADDIE HODGE AWA K Ot N17.9 SP KIDNEY FAILURE, UNSPECIFIED SP 07/07/2015 MADDIE HODGE AWA K Ot N39.0 SP TRACT INFECTION, SITE NOT SPECIF SP 07/07/2015 MADDIE HODGE AWA K Ot R65.20 SP SEPSIS WITHOUT SEPTIC SHOCK SP 07/07/2015 MADDIE HODGE AWA K Ot Z79.4 SP TERM (CURRENT) USE OF INSULIN SP 07/07/2015 MADDIE HODGE AWA K Ot 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), AND CEREB INFRC W SP 07/07/2015 MADDIE HODGE AWA K Ot Z91.19 SP NONCOMPLIANCE W [facility] SP 08/20/2016 JALEN PEREZ MD Ot A41.9 SP UNSPECIFIED ORGANISM SP 08/20/2016 JALEN PEREZ MD Ot E11.4 0 SP 2 DIABETES MELLITUS WITH DIABETIC N SP 08/20/2016 JALEN PEREZ MD Ot E11.6 5 SP 2 DIABETES MELLITUS WITH HYPERGLYCE SP 08/20/2016 JALEN PEREZ MD Ot E78.0 0 SP HYPERCHOLESTEROLEMIA, UNSPECIFIED SP 08/20/2016 JALEN PEREZ MD Ot E87.6 SP SP 08/20/2016 JALEN PEREZ MD Ot F17.2 10 SP DEPENDENCE, CIGARETTES, UNCOMPL SP 08/20/2016 JALEN PEREZ MD R Ot F32.9 SP DEPRESSIVE DISORDER, SINGLE EPISOD SP 08/20/2016 JALEN PEREZ MD R Ot F41.9 SP DISORDER, UNSPECIFIED SP 08/20/2016 JALEN PEREZ MD R Ot F60.9 SP DISORDER, UNSPECIFIED SP 08/20/2016 JALEN PEREZ MD R Ot G47.9 SP DISORDER, UNSPECIFIED SP 08/20/2016 JALEN PEREZ MD R Ot I10 SP (PRIMARY) HYPERTENSION SP 08/20/2016 JALEN PEREZ MD R Ot I65.2 3 SP AND STENOSIS OF BILATERAL B[place] SP 08/20/2016 JALEN PEREZ MD R Ot J45.9 09 SP ASTHMA, UNCOMPLICATED SP 08/20/2016 JALEN PEREZ MD R Ot M54.9 SP UNSPECIFIED SP 08/20/2016 JALEN PEREZ MD R Ot N39.0 SP TRACT INFECTION, SITE NOT SPECIF SP 08/20/2016 JALEN PEREZ MD R Ot Z79.4 SP TERM (CURRENT) USE OF INSULIN SP 08/20/2016 JALEN PEREZ MD R Ot Z86.7 3 SP HX OF TIA (TIA), AND CEREB INFRC W SP 08/20/2016 JALEN PEREZ MD R Ot Z91.1 4 SP OTHER NONCOMPLIANCE WITH MEDIC SP 12/28/2016 LANA MARINELLI Ot E11.40 SP TYPE 2 DIABETES MELLITUS WITH DIABETIC N SP 12/28/2016 LANA MARINELLI Ot F17.210 SP NICOTINE DEPENDENCE, CIGARETTES, UNCOMPL SP 12/28/2016 LANA MARINELLI Ot I 10 SP (PRIMARY) HYPERTENSION SP 12/28/2016 LANA MARINELLI Ot J45.909 SP UNSPECIFIED ASTHMA, UNCOMPLICATED SP 12/28/2016 LANA MARINELLI Ot M25.471 SP EFFUSION, RIGHT ANKLE SP 12/28/2016 LANA MARINELLI Ot S93.401A SP SPRAIN OF UNSPECIFIED LIGAMENT OF RIGHT SP 12/28/2016 LANA MARINELLI Ot X50.0XXA SP OVEREXERTION FROM STRENUOUS MOVEMENT OR SP 12/28/2016 LANA MARINELLI Ot Z79.4 SP SHELTER (CURRENT) USE OF INSULIN SP 12/28/2016 LANA MARINELLI Ot Z79.82 SP PLANT SECURITY GUARD (CURRENT) USE OF ASPIRIN SP 12/28/2016 LANA MARINELLI Ot 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), AND CEREB INFRC W SP 01/03/2017 LANA MARINELLI Ot E11.40 SP TYPE 2 DIABETES MELLITUS WITH DIABETIC N SP 01/03/2017 LANA MARINELLI Ot F17.210 SP NICOTINE DEPENDENCE, CIGARETTES, UNCOMPL SP 01/03/2017 LANA MARINELLI Ot I 10 SP (PRIMARY) HYPERTENSION SP 01/03/2017 LANA MARINELLI Ot J45.909 SP UNSPECIFIED ASTHMA, UNCOMPLICATED SP 01/03/2017 LANA MARINELLI Ot M25.471 SP EFFUSION, RIGHT ANKLE SP 01/03/2017 LANA MARINELLI Ot S93.401A SP SPRAIN OF UNSPECIFIED LIGAMENT OF RIGHT SP 01/03/2017 LANA MARINELLI Ot X50.0XXA SP OVEREXERTION FROM STRENUOUS MOVEMENT OR SP 01/03/2017 LANA MARINELLI Ot Z79.4 SP PLANT SECURITY GUARD (CURRENT) USE OF INSULIN SP 01/03/2017 LANA MARINELLI Ot Z79.82 SP PLANT SECURITY GUARD (CURRENT) USE OF ASPIRIN SP 01/03/2017 LANA MARINELLI Ot 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), AND CEREB INFRC W SP 01/31/2017 THAO TOBAR MD Ot E11. 40 SP 2 DIABETES MELLITUS WITH DIABETIC N SP 01/31/2017 THAO TOBAR MD Ot E78. 00 SP HYPERCHOLESTEROLEMIA, UNSPECIFIED SP 01/31/2017 THAO TOBAR MD Ot F32. 9 SP DEPRESSIVE DISORDER, SINGLE EPISOD SP 01/31/2017 THAO TOBAR MD Ot F41. 9 SP DISORDER, UNSPECIFIED SP 01/31/2017 THAO TOBAR MD Ot F60. 89 SP SPECIFIC PERSONALITY DISORDERS SP 01/31/2017 THAO TOBAR MD Ot G47. 9 SP DISORDER, UNSPECIFIED SP 01/31/2017 THAO TOBAR MD Ot I10 SP (PRIMARY) HYPERTENSION SP 01/31/2017 THAO TOBAR MD Ot J45.909 SP UNSPECIFIED ASTHMA, UNCOMPLICATED SP 01/31/2017 THAO TOBAR MD Ot K21. 9 SPESOPHAGEAL REFLUX DISEASE WITHOUT SP 01/31/2017 THAO TOBAR MD Ot R51 SP SP 01/31/2017 THAO TOBAR MD Ot Z79. 4 SP TERM (CURRENT) USE OF INSULIN SP 01/31/2017 THAO TOBAR MD Ot Z79. 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 51 SP LIGATION STATUS SP 01/31/2017 THAO TOBAR MD Ot Z98.890 SP OTHER SPECIFIED POSTPROCEDURAL STATES SP 02/04/2017 THAO TOBAR MD Ot E11. 40 SP 2 DIABETES MELLITUS WITH DIABETIC N SP 02/04/2017 THAO TOBAR MD Ot E78. 00 SP HYPERCHOLESTEROLEMIA, UNSPECIFIED SP 02/04/2017 THAO TOBAR MD Ot F32. 9 SP DEPRESSIVE DISORDER, SINGLE EPISOD SP 02/04/2017 THAO TOBAR MD Ot F41. 9 SP DISORDER, UNSPECIFIED SP 02/04/2017 THAO TOBAR MD Ot F60. 89 SP SPECIFIC PERSONALITY DISORDERS SP 02/04/2017 THAO TOBAR MD Ot G47. 9 SP DISORDER, UNSPECIFIED SP 02/04/2017 THAO TOBAR MD Ot I10 SP (PRIMARY) HYPERTENSION SP 02/04/2017 THAO TOBAR MD Ot J45.909 SP UNSPECIFIED ASTHMA, UNCOMPLICATED SP 02/04/2017 THAO TOBAR MD Ot K21. 9 SPESOPHAGEAL REFLUX DISEASE WITHOUT SP 02/04/2017 THAO TOBAR MD Ot R51 SP SP 02/04/2017 THAO TOBAR MD Ot Z79. 4 SP TERM (CURRENT) USE OF INSULIN SP 02/04/2017 THAO TOBAR MD Ot Z79. 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 01/19/2018 TANYA KOHLER DO Ot E78.00 SP PURE HYPERCHOLESTEROLEMIA, UNSPECIFIED SP 01/19/2018 [facility] Ot E83.52 SP HYPERCALCEMIA SP 01/19/2018 TANYA KOHLER DO Ot E86.0 SP DEHYDRATION SP 01/19/2018 TANYA KOHLER DO Ot E87.1 SP HYPO-OSMOLALITY AND HYPONATREMIA SP 01/19/2018 WILDERTANYA Gonzalez DO Ot E87.2 SP ACIDOSIS SP 01/19/2018 TANYA KOHLER DO Ot E87.6 SP HYPOKALEMIA SP 01/19/2018 [facility] DO Ot F17.210 SP NICOTINE DEPENDENCE, CIGARETTES, UNCOMPL SP 01/19/2018 TANYA KOHLER DO Ot F32.9 SP MAJOR DEPRESSIVE DISORDER, SINGLE EPISOD SP 01/19/2018 TANYA KOHLER DO Ot F41.9 SP ANXIETY DISORDER, UNSPECIFIED SP 01/19/2018 [facility] DO Ot F60.9 SP PERSONALITY DISORDER, UNSPECIFIED SP 01/19/2018 TANYA KOHLER DO Ot G43.909 SP MIGRAINE, UNSP, NOT INTRACTABLE, WITHOUT SP 01/19/2018 [facility] Ot G47.9 SP SLEEP DISORDER, UNSPECIFIED SP 01/19/2018 WILDERTANYA Gonzalez DO Ot I10 SP ESSENTIAL (PRIMARY) HYPERTENSION SP 01/19/2018 WILDERTANYA Gonzalez DO Ot 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 01/19/2018 TANYA KOHLER DO Ot J45.909 SP UNSPECIFIED ASTHMA, UNCOMPLICATED SP 01/19/2018 TANYA KOHLER DO Ot K21.9 SP GASTRO-ESOPHAGEAL REFLUX DISEASE WITHOUT SP 01/19/2018 [facility] Ot M54.9 SP DORSALGIA, UNSPECIFIED SP 01/19/2018 WILDERTANYA Gonzalez DO Ot N28.9 SP DISORDER OF KIDNEY AND URETER, UNSPECIFI SP 01/19/2018 TANYA KOHLER DO Ot Z79.4 SP PLANT SECURITY GUARD (CURRENT) USE OF INSULIN SP 01/19/2018 WILDERTANYA Gonzalez DO Ot 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), AND CEREB INFRC W SP 01/19/2018 WILDERTANYA Gonzalez DO Ot A08.4 SP VIRAL INTESTINAL INFECTION, UNSPECIFIED SP 01/19/2018 [facility] TANYA HODGE Ot D72.829 SP ELEVATED WHITE BLOOD CELL COUNT, UNSPECI SP 01/19/2018 [facility] DO Ot E11.10 SP TYPE 2 DIABETES MELLITUS WITH KETOACIDOS SP 01/19/2018 [facility] DO Ot 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 01/19/2018 [facility] DO Ot E78.00 SP PURE HYPERCHOLESTEROLEMIA, UNSPECIFIED SP 01/19/2018 WILDERTANYA Gonzalez DO Ot E83.52 SP HYPERCALCEMIA SP 01/19/2018 WILDERTANYA Gonzalez DO Ot E86.0 SP DEHYDRATION SP 01/19/2018 TANYA KOHLER DO Ot E87.1 SP HYPO-OSMOLALITY AND HYPONATREMIA SP 01/19/2018 TANYA KOHLER DO Ot E87.2 SP ACIDOSIS SP 01/19/2018 [facility] TANYA HODGE Ot E87.6 SP HYPOKALEMIA SP 01/19/2018 [facility] Ot F17.210 SP NICOTINE DEPENDENCE, CIGARETTES, UNCOMPL SP 01/19/2018 WILDERTANYA Gonzalez DO Ot F32.9 SP MAJOR DEPRESSIVE DISORDER, SINGLE EPISOD SP 01/19/2018 [facility] TANYA HODGE Ot F39 SP UNSPECIFIED MOOD [AFFECTIVE] DISORDER SP 01/19/2018 [facility] TANYA HODGE Ot F41.9 SP ANXIETY DISORDER, UNSPECIFIED SP 01/19/2018 [facility] TANYA HODGE Ot F60.9 SP PERSONALITY DISORDER, UNSPECIFIED SP 01/19/2018 [facility] TANYA HODGE Ot G43.909 SP MIGRAINE, UNSP, NOT INTRACTABLE, WITHOUT SP 01/19/2018 [facility] T[facility] HOD[facility] Ot G47.9 SP SLEEP DISORDER, UNSPECIFIED SP 01/19/2018 [facility] TANY[facility] HODGE Ot I10 SP ESSENTIAL (PRIMARY) HYPERTENSION SP 01/19/2018 WILDERTANYA Gonzalez DO Ot 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 01/19/2018 [facility] TANYA HODGE Ot J45.909 SP UNSPECIFIED ASTHMA, UNCOMPLICATED SP 01/19/2018 WILDERTANYA Gonzalez DO Ot K21.9 SP GASTRO-ESOPHAGEAL REFLUX DISEASE WITHOUT SP 01/19/2018 [facility] Ot M54.9 SP DORSALGIA, UNSPECIFIED SP 01/19/2018 [facility] TANYA HODGE Ot N28.9 SP DISORDER OF KIDNEY AND URETER, UNSPECIFI SP 01/19/2018 [facility] HODGE Ot Z79.4 SP PLANT SECURITY GUARD (CURRENT) USE OF INSULIN SP 01/19/2018 [facility] Ot 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), AND CEREB INFRC W SP 11/18/2018 [facility] TANYA HODGE Ot A08.4 SP VIRAL INTESTINAL INFECTION, UNSPECIFIED SP 11/18/2018 [facility] TANYA HODGE Ot D72.829 SP ELEVATED WHITE BLOOD CELL COUNT, UNSPECI SP 11/18/2018 [facility] TANYA HODGE Ot E11.10 SP TYPE 2 DIABETES MELLITUS WITH KETOACIDOS SP 11/18/2018 [facility] Ot 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 11/18/2018 [facility] TANYA HODGE Ot E78.00 SP PURE HYPERCHOLESTEROLEMIA, UNSPECIFIED SP 11/18/2018 [facility] Ot E83.52 SP HYPERCALCEMIA SP 11/18/2018 [facility] TANYA HODGE Ot E86.0 SP DEHYDRATION SP 11/18/2018 [facility] TANYA HODGE Ot E87.1 SP HYPO-OSMOLALITY AND HYPONATREMIA SP 11/18/2018 [facility] Ot E87.2 SP ACIDOSIS SP 11/18/2018 [facility] TANYA HODGE Ot E87.6 SP HYPOKALEMIA SP 11/18/2018 [facility] TANYA HODGE Ot F17.210 SP NICOTINE DEPENDENCE, CIGARETTES, UNCOMPL SP 11/18/2018 [facility] T[facility] HOD[facility] Ot F32.9 SP MAJOR DEPRESSIVE DISORDER, SINGLE EPISOD SP 11/18/2018 [facility] TANYA HODGE Ot F41.9 SP ANXIETY DISORDER, UNSPECIFIED SP 11/18/2018 [facility] TANYA HODGE Ot F60.9 SP PERSONALITY DISORDER, UNSPECIFIED SP 11/18/2018 [facility] TANYA HODGE Ot G43.909 SP MIGRAINE, UNSP, NOT INTRACTABLE, WITHOUT SP 11/18/2018 [facility] TANYA HODGE Ot G47.9 SP SLEEP DISORDER, UNSPECIFIED SP 11/18/2018 [facility] TANYA HODGE Ot I10 SP ESSENTIAL (PRIMARY) HYPERTENSION SP 11/18/2018 [facility] Ot 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 11/18/2018 [facility] Ot J45.909 SP UNSPECIFIED ASTHMA, UNCOMPLICATED SP 11/18/2018 [facility] Ot K21.9 SP GASTRO-ESOPHAGEAL REFLUX DISEASE WITHOUT SP 11/18/2018 [facility] Ot M54.9 SP DORSALGIA, UNSPECIFIED SP 11/18/2018 [facility] Ot N28.9 SP DISORDER OF KIDNEY AND URETER, UNSPECIFI SP 11/18/2018 [facility] TANYA HODGE Ot Z79.4 SP PLANT SECURITY GUARD (CURRENT) USE OF INSULIN SP 11/18/2018 [facility] Ot 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), AND CEREB INFRC W SP 11/18/2018 [facility] Ot A08.4 SP VIRAL INTESTINAL INFECTION, UNSPECIFIED SP 11/18/2018 [facility] Ot D72.829 SP ELEVATED WHITE BLOOD CELL COUNT, UNSPECI SP 11/18/2018 [facility] Ot E11.10 SP TYPE 2 DIABETES MELLITUS WITH KETOACIDOS SP 11/18/2018 [facility] Ot 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 11/18/2018 [facility] Ot E78.00 SP PURE HYPERCHOLESTEROLEMIA, UNSPECIFIED SP 11/18/2018 [facility] Ot E83.52 SP HYPERCALCEMIA SP 11/18/2018 [facility] Ot E86.0 SP DEHYDRATION SP 11/18/2018 [facility] TANYA HODGE Ot E87.1 SP HYPO-OSMOLALITY AND HYPONATREMIA SP 11/18/2018 [facility] Ot E87.2 SP ACIDOSIS SP 11/18/2018 [facility] Ot E87.6 SP HYPOKALEMIA SP 11/18/2018 [facility] TANYA HODGE Ot F17.210 SP NICOTINE DEPENDENCE, CIGARETTES, UNCOMPL SP 11/18/2018 [facility] Ot F32.9 SP MAJOR DEPRESSIVE DISORDER, SINGLE EPISOD SP 11/18/2018 [facility] TANYA HODGE Ot F41.9 SP ANXIETY DISORDER, UNSPECIFIED SP 11/18/2018 [facility] Gonzalez DO Ot F60.9 SP PERSONALITY DISORDER, UNSPECIFIED SP 11/18/2018 TANYA KOHLER DO Ot G43.909 SP MIGRAINE, UNSP, NOT INTRACTABLE, WITHOUT SP 11/18/2018 TANYA KOHLER DO Ot G47.9 SP SLEEP DISORDER, UNSPECIFIED SP 11/18/2018 TANYA KOHLER DO Ot I10 SP ESSENTIAL (PRIMARY) HYPERTENSION SP 11/18/2018 TANYA KOHLER DO Ot 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 11/18/2018 TANYA KOHLER DO, Ot J45.909 SP UNSPECIFIED ASTHMA, UNCOMPLICATED SP 11/18/2018 TANYA KOHLER DO Ot K21.9 SP GASTRO-ESOPHAGEAL REFLUX DISEASE WITHOUT SP 11/18/2018 TANYA KOHLER DO Ot M54.9 SP DORSALGIA, UNSPECIFIED SP 11/18/2018 TANYA KOHLER DO Ot N28.9 SP DISORDER OF KIDNEY AND URETER, UNSPECIFI SP 11/18/2018 TANYA KOHLER DO Ot Z79.4 SP SHELTER (CURRENT) USE OF INSULIN SP 11/18/2018 TANYA KOHLER DO Ot 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), AND CEREB INFRC W SP 05/23/2019 SHIRLEY HODGE YUMIKO Ot E11.00 SP 2 DIAB W HYPROSM W/O NONKET HYPRGLY SP 05/23/2019 JOSE ELIAS WATSON DOI Ot E11.40 SP 2 DIABETES MELLITUS WITH DIABETIC N SP 05/23/2019 JOSE ELIAS WATSON DOI Ot E78.00 SP HYPERCHOLESTEROLEMIA, UNSPECIFIED SP 05/23/2019 JOSE ELIAS WATSON DOI Ot F17.21 0 SP DEPENDENCE, CIGARETTES, UNCOMPL SP 05/23/2019 JOSE ELIAS WATSON DOI Ot F32.9 SP DEPRESSIVE DISORDER, SINGLE EPISOD SP 05/23/2019 SHIRLEY HODGE YUMIKO Ot F41.9 SP DISORDER, UNSPECIFIED SP 05/23/2019 YUMIKO WATSON DO Ot F60.9 SP DISORDER, UNSPECIFIED SP 05/23/2019 WATSON DO, YUMIKO Ot G43.90 9 SP UNSP, NOT INTRACTABLE, WITHOUT SP 05/23/2019 SHIRLEY HODGE YUMIKO Ot I10 SP (PRIMARY) HYPERTENSION SP 05/23/2019 SHIRLEY HODGE YUMIKO Ot 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 05/23/2019 SHIRLEY HODGE YUMIKO Ot J45.90 9 SP ASTHMA, UNCOMPLICATED SP 05/23/2019 SHIRLEY HODGE YUMIKO Ot K21.9 SPESOPHAGEAL REFLUX DISEASE WITHOUT SP 05/23/2019 JOSE ELIAS WATSON DOI Ot N19 SP KIDNEY FAILURE SP 05/23/2019 JOSE ELIAS WATSON DOI Ot N39.0 SP TRACT INFECTION, SITE NOT SPECIF SP 05/23/2019 JOSE ELIAS WATSON DOI Ot R21 RASH SP OTHER NONSPECIFIC SKIN ERUPTION SP 05/23/2019 JOSE ELIAS WATSON DOI Ot Z79.4 SP TERM (CURRENT) USE OF INSULIN SP 05/23/2019 JOSE ELIAS WATSON DOI Ot Z91.19 SP NONCOMPLIANCE W OTH MEDICAL TR SP 05/23/2019 SHIRLEY HODGE YUMKIO Ot E11.00 SP 2 DIAB W HYPROSM W/O NONKET HYPRGLY SP 05/23/2019 JOSE ELIAS WATSON DOI Ot E11.40 SP 2 DIABETES MELLITUS WITH DIABETIC N SP 05/23/2019 JOSE ELIAS WATSON DOI Ot E78.00 SP HYPERCHOLESTEROLEMIA, UNSPECIFIED SP 05/23/2019 SHIRLEY HODGE YUMIKO Ot F17.21 0 SP DEPENDENCE, CIGARETTES, UNCOMPL SP 05/23/2019 SHIRLEY HODGE YUMIKO Ot F32.9 SP DEPRESSIVE DISORDER, SINGLE EPISOD SP 05/23/2019 SHIRLEY HODGE YUMIKO Ot F41.9 SP DISORDER, UNSPECIFIED SP 05/23/2019 SHIRLEY HODGE YMUIKO Ot F60.9 SP DISORDER, UNSPECIFIED SP 05/23/2019 SHIRLEY HODGE YUMIKO Ot G43.90 9 SP UNSP, NOT INTRACTABLE, WITHOUT SP 05/23/2019 JOSE ELIAS WATSON DOI Ot I10 SP (PRIMARY) HYPERTENSION SP 05/23/2019 SHIRLEY HODGE YUMIKO Ot 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 05/23/2019 SHIRLEY HODGE YUMIKO Ot J45.90 9 SP ASTHMA, UNCOMPLICATED SP 05/23/2019 SHIRLEY HODGE YUMIKO Ot K21.9 SPESOPHAGEAL REFLUX DISEASE WITHOUT SP 05/23/2019 WATSON DO, YUMIKO Ot N19 SP KIDNEY FAILURE SP 05/23/2019 WATSON DO, YUMIKO Ot N39.0 SP TRACT INFECTION, SITE NOT SPECIF SP 05/23/2019 SHIRLEY DO YUMIKO Ot R21 RASH SP OTHER NONSPECIFIC SKIN ERUPTION SP 05/23/2019 SHIRLEY HODGE YUMIKO Ot Z79.4 SP TERM (CURRENT) USE OF INSULIN SP 05/23/2019 SHIRLEY HODGE YUMIKO Ot Z91.19 SP NONCOMPLIANCE W OT MEDICAL TR SP 05/30/2019 SHIRLEY DO, YUMIKO Ot E11.00 SP 2 DIAB W HYPROSM W/O NONKET HYPRGLY SP 05/30/2019 WATSON DO, YUMIKO Ot E11.40 SP 2 DIABETES MELLITUS WITH DIABETIC N SP 05/30/2019 SHIRLEY DO, YUMIKO Ot E78.00 SP HYPERCHOLESTEROLEMIA, UNSPECIFIED SP 05/30/2019 SHIRLEY HODGE, YUMIKO Ot F17.21 0 SP DEPENDENCE, CIGARETTES, UNCOMPL SP 05/30/2019 SHIRLEY HODGE YUMIKO Ot F32.9 SP DEPRESSIVE DISORDER, SINGLE EPISOD SP 05/30/2019 SHIRLEY HODGE YUMIKO Ot F41.9 SP DISORDER, UNSPECIFIED SP 05/30/2019 SHIRLEY HODGE YUMIKO Ot F60.9 SP DISORDER, UNSPECIFIED SP 05/30/2019 SHIRLEY HODGE YUMIKO Ot G43.90 9 SP UNSP, NOT INTRACTABLE, WITHOUT SP 05/30/2019 SHIRLEY DO YUMIKO Ot I10 SP (PRIMARY) HYPERTENSION SP 05/30/2019 SHIRLEY HODGE YUMIKO Ot 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 05/30/2019 SHIRLEY HODGE YUMIKO Ot J45.90 9 SP ASTHMA, UNCOMPLICATED SP 05/30/2019 SHIRLEY HODGE YUMIKO Ot K21.9 SPESOPHAGEAL REFLUX DISEASE WITHOUT SP 05/30/2019 SHIRLEY DO, YUMIKO Ot N19 SP KIDNEY FAILURE SP 05/30/2019 SHIRLEY DO YUMIKO Ot N39.0 SP TRACT INFECTION, SITE NOT SPECIF SP 05/30/2019 SHIRLEY HODGE YUMIKO Ot R21 RASH SP OTHER NONSPECIFIC SKIN ERUPTION SP 05/30/2019 SHIRLEY HODGE YUMIKO Ot Z79.4 SP TERM (CURRENT) USE OF INSULIN SP 05/30/2019 YUMIKO WATSON DO Ot Z91.19 SP NONCOMPLIANCE W [facility] SP Procedures Code Description Performed By Per formed On POS [id number] IN SERTION OF INFUSION DEV SP SUP VENA 06/04/2015 SP Results Test Result Range POS Capillary blood glucose measurement by g lucometer (mass/volume) - 08/18/16 19:12 POS Capillary blood glucose measurement by glucometer (mas s/volume) 383 POS 70-110 SP Complete blood count (CBC) with automate d white blood cell (WBC) differential - POS 19:15 Blood leukocytes automated count (number/volume) 10.7 10*3/uL POS 4.3-11.0 SP Blood erythrocytes automated count (number/volume) 4.86 10*6/uL SP 4.35-5.85 SP Venous blood hemoglobin measurement (mass/volume) 15.1 g/dL SP16.0 Blood hematocrit (volume fraction) 42 % 35-52 SP Automated erythrocyte mean corpuscular volume 86 [ foz_us] SP99 Automated erythrocyte mean corpuscular h emoglobin (mass per erythrocyte) SP 31 pg 25-34 SP Automated erythrocyte mean corpuscular h emoglobin concentration measurement SP 36 g/dL 32-36 SP Automated erythrocyte distribution width ratio 12. 3 % 10.0- SP Automated blood platelet count (count/volume) 209 10*3/uL SP400 Automated blood platelet mean volume measurement 10.5 [foz_us] SP 7.4-10.4 SP Automated blood neutrophils/100 leukocytes 84 % 42-75 SP Automated blood lymphocytes/100 leukocytes 8 % 12-44 SP Blood monocytes/100 leukocytes 8 % 0-12 SP Automated blood eosinophils/100 leukocytes 0 % 0-10 SP Automated blood basophils/100 leukocytes 0 % 0-10 SP Blood neutrophils automated count (number/volume) 9.0 10*3 SP7.8 Blood lymphocytes automated count (number/volume) 0.8 10*3 SP4.0 Blood monocytes automated count (number/volume) 0. 8 10*3 SP1.0 Automated eosinophil count 0.0 10*3/uL 0 .0-0.3 SP Automated blood basophil count (count/volume) 0.0 10*3/uL SP0.1 PT panel in platelet poor plasma by coag ulation assay - 08/18/16 19:15 POS Prothrombin time (PT) in platelet poor plasma by coagu lation assay SP s 12.2-14.7 SP INR in platelet poor plasma or blood by coagulation as say 1.0 SP 0.8-1.4 SP Activated partial thromboplastin time (a PTT) in platelet poor plasma POS assay - 08/18/16 19:15 Activated partial thromboplastin time (a PTT) in platelet poor plasma POS assay 22 s 24-35 SP Blood lactic acid measurement (moles/vol ume) - 08/18/16 19:15 POS Blood lactic acid measurement (moles/volume) 1.7 m mol/L 0.5- SP Comprehensive metabolic panel - 08/18/16 19:15 POS Serum or plasma sodium measurement (moles/volume) 133 mmol/L SP 135-145 SP Serum or plasma potassium measurement (moles/volume) 4.2 mmol/L SP 3.6-5.0 SP Serum or plasma chloride measurement (moles/volume) 96 mmol/L SP 98-107 SP Carbon dioxide 16 mmol/L 21-32 SP Serum or plasma anion gap determination (moles/volume) 21 mmol/L SP 5-14 SP Serum or plasma urea nitrogen measurement (mass/volume ) 44 mg/dL SP 7-18 SP Serum or plasma creatinine measurement (mass/volume) 1.45 mg/dL SP 0.60-1.30 SP Serum or plasma urea nitrogen/creatinine mass ratio 30 NRG SP Serum or plasma creatinine measurement w ith calculation of estimated glomerular SP rate 38 NRG SP Serum or plasma glucose measurement (mass/volume) 472 mg/dL SP105 Serum or plasma calcium measurement (mass/volume) 11.6 mg/dL SP 8.5-10.1 SP Serum or plasma total bilirubin measurement (mass/volu me) 1.2 mg/dL SP 0.1-1.0 SP Serum or plasma alkaline phosphatase juan diego surement (enzymatic activity/volume) SP 119 U/L 40-136 SP Serum or plasma aspartate aminotransfera se measurement (enzymatic SP 21 U/L 5-34 SP Serum or plasma alanine aminotransferase measurement (enzymatic activity/volume) SP 18 U/L 0-55 SP Serum or plasma protein measurement (mass/volume) 7.8 g/dL SP8.2 Serum or plasma albumin measurement (mass/volume) 4.1 g/dL SP4.5 Lipase - 08/18/16 19:15 POS Lipase 13 U/L 8-78 SP Bacterial blood culture - 08/18/16 19:15 POS Bacterial blood culture NG NRG SP Bacterial blood culture - 08/18/16 19:47 POS FREE TEXT EXTERNAL SENSITIVITY REPORTED 08/20 06:15 NRG SP QUANTITY OF GROWTH Isolated NRG SP Bacterial blood culture [id number] NRG SP Bacterial susceptibility panel - 7 19:47 POS Gentamicin susceptibility test by minimum inhibitory c oncentration <= SP NRG SP Trimethoprim/sulfamethoxazole susceptibi lity test by minimum SP <= NRG SP Ampicillin susceptibility test by minimum inhibitory c oncentration <= SP NRG SP Tobramycin susceptibility test by minimum inhibitory c oncentration <= SP NRG SP Cefazolin susceptibility test by minimum inhibitory co ncentration <= SP NRG SP Ceftriaxone susceptibility test by minimum inhibitory concentration <= SP NRG SP Ampicillin/sulbactam susceptibility test by minimum inhibitory concentration SP <= NRG SP Piperacillin/tazobactam susceptibility t est by minimum inhibitory concentration SP <= NRG SP Ciprofloxacin susceptibility test by minimum inhibitor y concentration SP NRG SP Meropenem susceptibility test by minimum inhibitory co ncentration <= SP NRG SP Aztreonam susceptibility test by minimum inhibitory co ncentration <= SP NRG SP Extended spectrum beta lactamase (ESBL) producing bacteria susceptibility test SP minimum inhibitory concentration - NRG SP Capillary blood glucose measurement by g lucometer (mass/volume) - 08/18/16 19:48 POS Capillary blood glucose measurement by glucometer (mas s/volume) 368 POS 70-110 SP Complete urinalysis with reflex to cultu re - 08/18/16 20:30 POS Urine color determination YELLOW NRG SP Urine clarity determination VERY CLOUDY NRG SP Urine pH measurement by test strip 5 5-9 SP Specific gravity of urine by test strip 1.015 1.016-1.022 SP Urine protein assay by test strip, semi-quantitative 3+ SP Urine glucose detection by automated test strip 4+ NEGATIVE SP Erythrocytes detection in urine sediment by light micr oscopy 3+ SP NEGATIVE SP Urine ketones detection by automated test strip 4+ NEGATIVE SP Urine nitrite detection by test strip POSITIVE NEGATIVE SP Urine total bilirubin detection by test strip NEGA TIVE SP Urine urobilinogen measurement by automated test strip (mass/volume) SP NORMAL SP Urine leukocyte esterase detection by dipstick 3+ NEGATIVE SP Automated urine sediment erythrocyte cou nt by microscopy (number/high power SP [HPF] NRG SP Automated urine sediment leukocyte count by microscopy (number/high power field) SP > [HPF] NRG SP Bacteria detection in urine sediment by light microsco py MODERATE SP NRG SP Crystals detection in urine sediment by light microsco py NONE SP NRG SP Casts detection in urine sediment by light microscopy NONE SP Mucus detection in urine sediment by light microscopy NEGATIVE SP NRG SP Complete urinalysis with reflex to culture YES NRG SP Bacterial urine culture - 08/18/16 20:30 POS Bacterial urine culture [id number] NRG SP COLONY COUNT >100,000/ML NRG SP FTX;REPORTABLE SENSITIVITY REPORTED 08/19/16 1700 NRG SP FREE TEXT ENTRY 2 PLUS, NRG SP FREE TEXT ENTRY 3 MIXED GRAM POSITIVES <10,000/ML NR SP Bacterial susceptibility panel - 7 20:30 POS Gentamicin susceptibility test by minimum inhibitory c oncentration <= SP NRG SP Trimethoprim/sulfamethoxazole susceptibi lity test by minimum SP <= NRG SP Ampicillin susceptibility test by minimum inhibitory c oncentration <= SP NRG SP Tobramycin susceptibility test by minimum inhibitory c oncentration <= SP NRG SP Cefazolin susceptibility test by minimum inhibitory co ncentration <= SP NRG SP Ceftriaxone susceptibility test by minimum inhibitory concentration <= SP NRG SP Ampicillin/sulbactam susceptibility test by minimum inhibitory concentration SP <= NRG SP Piperacillin/tazobactam susceptibility t est by minimum inhibitory concentration SP <= NRG SP Ciprofloxacin susceptibility test by minimum inhibitor y concentration SP NRG SP Meropenem susceptibility test by minimum inhibitory co ncentration <= SP NRG SP Nitrofurantoin susceptibility test by mi nimum inhibitory concentration SP <= NRG SP Aztreonam susceptibility test by minimum inhibitory co ncentration <= SP NRG SP Extended spectrum beta lactamase (ESBL) producing bacteria susceptibility test SP minimum inhibitory concentration - NRG SP Capillary blood glucose measurement by g lucometer (mass/volume) - 08/18/16 20:34 POS Capillary blood glucose measurement by glucometer (mas s/volume) 265 POS 70-110 SP Capillary blood glucose measurement by g lucometer (mass/volume) - 08/18/16 22:06 POS Capillary blood glucose measurement by glucometer (mas s/volume) 249 POS 70-110 SP Complete blood count (CBC) with automate d white blood cell (WBC) differential - POS 04:20 Blood leukocytes automated count (number/volume) 3.2 10*3/uL POS 4.3-11.0 SP Blood erythrocytes automated count (number/volume) 4.12 10*6/uL SP 4.35-5.85 SP Venous blood hemoglobin measurement (mass/volume) 12.6 g/dL SP16.0 Blood hematocrit (volume fraction) 36 % 35-52 SP Automated erythrocyte mean corpuscular volume 88 [ foz_us] SP99 Automated erythrocyte mean corpuscular h emoglobin (mass per erythrocyte) SP 31 pg 25-34 SP Automated erythrocyte mean corpuscular h emoglobin concentration measurement SP 35 g/dL 32-36 SP Automated erythrocyte distribution width ratio 12. 2 % 10.0- SP Automated blood platelet count (count/volume) 146 10*3/uL SP400 Automated blood platelet mean volume measurement 10.9 [foz_us] SP 7.4-10.4 SP Automated blood neutrophils/100 leukocytes 83 % 42-75 SP Automated blood lymphocytes/100 leukocytes 16 % 12-44 SP Blood monocytes/100 leukocytes 1 % 0-12 SP Automated blood eosinophils/100 leukocytes 0 % 0-10 SP Automated blood basophils/100 leukocytes 0 % 0-10 SP Blood neutrophils automated count (number/volume) 2.7 10*3 SP7.8 Blood lymphocytes automated count (number/volume) 0.5 10*3 SP4.0 Blood monocytes automated count (number/volume) 0. 0 10*3 SP1.0 Automated eosinophil count 0.0 10*3/uL 0 .0-0.3 SP Automated blood basophil count (count/volume) 0.0 10*3/uL SP0.1 Comprehensive metabolic panel - 08/19/16 04:20 POS Serum or plasma sodium measurement (moles/volume) 140 mmol/L SP 135-145 SP Serum or plasma potassium measurement (moles/volume) 2.9 mmol/L SP 3.6-5.0 SP Serum or plasma chloride measurement (moles/volume) 108 mmol/L SP 98-107 SP Carbon dioxide 21 mmol/L 21-32 SP Serum or plasma anion gap determination (moles/volume) 11 mmol/L SP 5-14 SP Serum or plasma urea nitrogen measurement (mass/volume ) 35 mg/dL SP 7-18 SP Serum or plasma creatinine measurement (mass/volume) 1.07 mg/dL SP 0.60-1.30 SP Serum or plasma urea nitrogen/creatinine mass ratio 33 NRG SP Serum or plasma creatinine measurement w ith calculation of estimated glomerular SP rate 54 NRG SP Serum or plasma glucose measurement (mass/volume) 150 mg/dL SP105 Serum or plasma calcium measurement (mass/volume) 10.1 mg/dL SP 8.5-10.1 SP Serum or plasma total bilirubin measurement (mass/volu me) 1.3 mg/dL SP 0.1-1.0 SP Serum or plasma alkaline phosphatase juan diego surement (enzymatic activity/volume) SP 110 U/L 40-136 SP Serum or plasma aspartate aminotransfera se measurement (enzymatic SP 15 U/L 5-34 SP Serum or plasma alanine aminotransferase measurement (enzymatic activity/volume) SP 12 U/L 0-55 SP Serum or plasma protein measurement (mass/volume) 6.3 g/dL SP8.2 Serum or plasma albumin measurement (mass/volume) 3.3 g/dL SP4.5 Capillary blood glucose measurement by g lucometer (mass/volume) - 08/19/16 07:12 POS Capillary blood glucose measurement by glucometer (mas s/volume) 149 POS 70-110 SP Capillary blood glucose measurement by g lucometer (mass/volume) - 08/19/16 09:56 POS Capillary blood glucose measurement by glucometer (mas s/volume) 201 POS 70-110 SP Capillary blood glucose measurement by g lucometer (mass/volume) - 08/19/16 14:41 POS Capillary blood glucose measurement by glucometer (mas s/volume) 155 POS 70-110 SP Capillary blood glucose measurement by g lucometer (mass/volume) - 08/19/16 20:49 POS Capillary blood glucose measurement by glucometer (mas s/volume) 153 POS 70-110 SP Complete blood count (CBC) with automate d white blood cell (WBC) differential - POS 04:25 Blood leukocytes automated count (number/volume) 9.3 10*3/uL POS 4.3-11.0 SP Blood erythrocytes automated count (number/volume) 4.17 10*6/uL SP 4.35-5.85 SP Venous blood hemoglobin measurement (mass/volume) 12.9 g/dL SP16.0 Blood hematocrit (volume fraction) 36 % 35-52 SP Automated erythrocyte mean corpuscular volume 86 [ foz_us] SP99 Automated erythrocyte mean corpuscular h emoglobin (mass per erythrocyte) SP 31 pg 25-34 SP Automated erythrocyte mean corpuscular h emoglobin concentration measurement SP 36 g/dL 32-36 SP Automated erythrocyte distribution width ratio 11. 9 % 10.0- SP Automated blood platelet count (count/volume) 176 10*3/uL SP400 Automated blood platelet mean volume measurement 10.4 [foz_us] SP 7.4-10.4 SP Automated blood neutrophils/100 leukocytes 67 % 42-75 SP Automated blood lymphocytes/100 leukocytes 21 % 12-44 SP Blood monocytes/100 leukocytes 11 % 0-12 SP Automated blood eosinophils/100 leukocytes 0 % 0-10 SP Automated blood basophils/100 leukocytes 0 % 0-10 SP Blood neutrophils automated count (number/volume) 6.2 10*3 SP7.8 Blood lymphocytes automated count (number/volume) 2.0 10*3 SP4.0 Blood monocytes automated count (number/volume) 1. 1 10*3 SP1.0 Automated eosinophil count 0.0 10*3/uL 0 .0-0.3 SP Automated blood basophil count (count/volume) 0.0 10*3/uL SP0.1 Comprehensive metabolic panel - 08/20/16 04:25 POS Serum or plasma sodium measurement (moles/volume) 134 mmol/L SP 135-145 SP Serum or plasma potassium measurement (moles/volume) 3.0 mmol/L SP 3.6-5.0 SP Serum or plasma chloride measurement (moles/volume) 103 mmol/L SP 98-107 SP Carbon dioxide 20 mmol/L 21-32 SP Serum or plasma anion gap determination (moles/volume) 11 mmol/L SP 5-14 SP Serum or plasma urea nitrogen measurement (mass/volume ) 11 mg/dL SP 7-18 SP Serum or plasma creatinine measurement (mass/volume) 0.85 mg/dL SP 0.60-1.30 SP Serum or plasma urea nitrogen/creatinine mass ratio 13 NRG SP Serum or plasma creatinine measurement w ith calculation of estimated glomerular SP rate > NRG SP Serum or plasma glucose measurement (mass/volume) 107 mg/dL SP105 Serum or plasma calcium measurement (mass/volume) 9.6 mg/dL SP10.1 Serum or plasma total bilirubin measurement (mass/volu me) 0.7 mg/dL SP 0.1-1.0 SP Serum or plasma alkaline phosphatase juan diego surement (enzymatic activity/volume) SP 85 U/L 40-136 SP Serum or plasma aspartate aminotransfera se measurement (enzymatic SP 18 U/L 5-34 SP Serum or plasma alanine aminotransferase measurement (enzymatic activity/volume) SP 14 U/L 0-55 SP Serum or plasma protein measurement (mass/volume) 6.0 g/dL SP8.2 Serum or plasma albumin measurement (mass/volume) 3.1 g/dL SP4.5 Hemoglobin A1c - 08/20/16 04:25 POS Hemoglobin A1c 14.3 % 4.5-6.2 SP Capillary blood glucose measurement by g lucometer (mass/volume) - 08/20/16 11:14 POS Capillary blood glucose measurement by glucometer (mas s/volume) 167 POS 70-110 SP Complete blood count (CBC) with automate d white blood cell (WBC) differential - POS 23:50 Blood leukocytes automated count (number/volume) 6.7 10*3/uL POS 4.3-11.0 SP Blood erythrocytes automated count (number/volume) 4.25 10*6/uL SP 4.35-5.85 SP Venous blood hemoglobin measurement (mass/volume) 13.3 g/dL SP16.0 Blood hematocrit (volume fraction) 37 % 35-52 SP Automated erythrocyte mean corpuscular volume 86 [ foz_us] SP99 Automated erythrocyte mean corpuscular h emoglobin (mass per erythrocyte) SP 31 pg 25-34 SP Automated erythrocyte mean corpuscular h emoglobin concentration measurement SP 36 g/dL 32-36 SP Automated erythrocyte distribution width ratio 11. 7 % 10.0- SP Automated blood platelet count (count/volume) 227 10*3/uL SP400 Automated blood platelet mean volume measurement 10.5 [foz_us] SP 7.4-10.4 SP Automated blood neutrophils/100 leukocytes 41 % 42-75 SP Automated blood lymphocytes/100 leukocytes 48 % 12-44 SP Blood monocytes/100 leukocytes 9 % 0-12 SP Automated blood eosinophils/100 leukocytes 3 % 0-10 SP Automated blood basophils/100 leukocytes 0 % 0-10 SP Blood neutrophils automated count (number/volume) 2.7 10*3 SP7.8 Blood lymphocytes automated count (number/volume) 3.2 10*3 SP4.0 Blood monocytes automated count (number/volume) 0. 6 10*3 SP1.0 Automated eosinophil count 0.2 10*3/uL 0 .0-0.3 SP Automated blood basophil count (count/volume) 0.0 10*3/uL SP0.1 Comprehensive metabolic panel - 01/30/17 23:50 POS Serum or plasma sodium measurement (moles/volume) 130 mmol/L SP 135-145 SP Serum or plasma potassium measurement (moles/volume) 3.5 mmol/L SP 3.6-5.0 SP Serum or plasma chloride measurement (moles/volume) 96 mmol/L SP 98-107 SP Carbon dioxide 20 mmol/L 21-32 SP Serum or plasma anion gap determination (moles/volume) 14 mmol/L SP 5-14 SP Serum or plasma urea nitrogen measurement (mass/volume ) 16 mg/dL SP 7-18 SP Serum or plasma creatinine measurement (mass/volume) 1.21 mg/dL SP 0.60-1.30 SP Serum or plasma urea nitrogen/creatinine mass ratio 13 NRG SP Serum or plasma creatinine measurement w ith calculation of estimated glomerular SP rate 47 NRG SP Serum or plasma glucose measurement (mass/volume) 506 mg/dL SP105 Serum or plasma calcium measurement (mass/volume) 11.0 mg/dL SP 8.5-10.1 SP Serum or plasma total bilirubin measurement (mass/volu me) 0.4 mg/dL SP 0.1-1.0 SP Serum or plasma alkaline phosphatase juan diego surement (enzymatic activity/volume) SP 157 U/L 40-136 SP Serum or plasma aspartate aminotransfera se measurement (enzymatic SP 16 U/L 5-34 SP Serum or plasma alanine aminotransferase measurement (enzymatic activity/volume) SP 18 U/L 0-55 SP Serum or plasma protein measurement (mass/volume) 7.7 g/dL SP8.2 Serum or plasma albumin measurement (mass/volume) 3.7 g/dL SP4.5 Serum or plasma C reactive protein measu rement (mass/volume) - 01/30/17 23:50 POS Serum or plasma C reactive protein measurement (mass/v olume) 0.91 POS 0.00-0.50 SP Erythrocyte sedimentation rate by shun gren method - 01/30/17 23:50 POS Erythrocyte sedimentation rate by westergren method 55 mm 0- SP Complete urinalysis with reflex to cultu re - 01/31/17 00:39 POS Urine color determination YELLOW NRG SP Urine clarity determination CLEAR NR G SP Urine pH measurement by test strip 5 5-9 SP Specific gravity of urine by test strip 1.015 1.016-1.022 SP Urine protein assay by test strip, semi-quantitative 3+ SP Urine glucose detection by automated test strip 4+ NEGATIVE SP Erythrocytes detection in urine sediment by light micr oscopy 2+ SP NEGATIVE SP Urine ketones detection by automated test strip NE GATIVE SP Urine nitrite detection by test strip NEGATIVE NEGATIVE SP Urine total bilirubin detection by test strip NEGA TIVE SP Urine urobilinogen measurement by automated test strip (mass/volume) SP NORMAL SP Urine leukocyte esterase detection by dipstick NEG ATIVE SP Automated urine sediment erythrocyte cou nt by microscopy (number/high power SP [HPF] NRG SP Automated urine sediment leukocyte count by microscopy (number/high power field) SP NONE NRG SP Bacteria detection in urine sediment by light microsco py NEGATIVE SP NRG SP Squamous epithelial cells detection in u rine sediment by light microscopy SP 5-10 NRG SP Crystals detection in urine sediment by light microsco py NONE SP NRG SP Casts detection in urine sediment by light microscopy NONE SP Mucus detection in urine sediment by light microscopy NEGATIVE SP NRG SP Complete urinalysis with reflex to culture NO NRG SP CBC - 07/01/17 10:03 POS WHITE BLOOD CELL COUNT 10.3 Thousand/uL 3.8-10.8 SP RED BLOOD CELL COUNT 5.06 Million/uL 3.8 0-5.10 SP HEMOGLOBIN 15.8 g/dL 11.7-15.5 SP HEMATOCRIT 47.3 % 35.0-45.0 SP MCV 93.5 fL 80.0-100.0 SP MCH 31.2 pg 27.0-33.0 SP MCHC 33.4 g/dL 32.0-36.0 SP RDW 13.1 % 11.0-15.0 SP PLATELET COUNT 274 Thousand/uL 140-400 SP MPV 10.6 fL 7.5-12.5 SP ABSOLUTE NEUTROPHILS 4913 cells/uL 1500- 7800 SP ABSOLUTE LYMPHOCYTES 4233 cells/uL 850-3 900 SP ABSOLUTE MONOCYTES 1030 cells/uL 200-950 SP ABSOLUTE EOSINOPHILS 93 cells/uL 15-500 SP ABSOLUTE BASOPHILS 31 cells/uL 0-200 SP NEUTROPHILS 47.7 % NRG SP LYMPHOCYTES 41.1 % NRG SP MONOCYTES 10.0 % NRG SP EOSINOPHILS 0.9 % NRG SP BASOPHILS 0.3 % NRG SP MICROALBUMIN/CREATININE RATIO, URINE - 0 08/18/17 16:48 POS CREATININE, RANDOM URINE 46 mg/dL 20-32 0 SP MICROALBUMIN 80.3 mg/dL See Note: SP MICROALBUMIN/CREATININE RATIO, RANDOM URINE 1746 mcg/mg creat SP <30 SP CMP - 08/18/17 16:48 POS GLUCOSE 483 mg/dL 65-99 SP UREA NITROGEN (BUN) 25 mg/dL 7-25 SP CREATININE 1.09 mg/dL 0.50-1.05 SP eGFR NON-AFR. BAHAMIAN 59 mL/min/1.73m2 > OR=60 SP eGFR 68 mL/min/1.73m2 > OR=60 SP BUN/CREATININE RATIO 23 (calc) 6-22 SP SODIUM 130 mmol/L 135-146 SP POTASSIUM 4.6 mmol/L 3.5-5.3 SP CHLORIDE 94 mmol/L 98-110 SP CARBON DIOXIDE 27 mmol/L 20-31 SP CALCIUM 11.1 mg/dL 8.6-10.4 SP PROTEIN, TOTAL 7.1 g/dL 6.1-8.1 SP ALBUMIN 3.9 g/dL 3.6-5.1 SP GLOBULIN 3.2 g/dL (calc) 1.9-3.7 SP ALBUMIN/GLOBULIN RATIO 1.2 (calc) 1.0-2. 5 SP BILIRUBIN, TOTAL 0.6 mg/dL 0.2-1.2 SP ALKALINE PHOSPHATASE 107 U/L 33-130 SP AST 25 U/L 10-35 SP ALT 28 U/L 6-29 SP CMP - 10/07/17 10:28 POS GLUCOSE 61 mg/dL 65-99 SP UREA NITROGEN (BUN) 32 mg/dL 7-25 SP CREATININE 1.04 mg/dL 0.50-1.05 SP eGFR NON-AFR. BAHAMIAN 62 mL/min/1.73m2 > OR=60 SP eGFR 72 mL/min/1.73m2 > OR=60 SP BUN/CREATININE RATIO 31 (calc) 6-22 SP SODIUM 138 mmol/L 135-146 SP POTASSIUM 3.9 mmol/L 3.5-5.3 SP CHLORIDE 103 mmol/L 98-110 SP CARBON DIOXIDE 24 mmol/L 20-31 SP CALCIUM 12.4 mg/dL 8.6-10.4 SP PROTEIN, TOTAL 7.3 g/dL 6.1-8.1 SP ALBUMIN 4.4 g/dL 3.6-5.1 SP GLOBULIN 2.9 g/dL (calc) 1.9-3.7 SP ALBUMIN/GLOBULIN RATIO 1.5 (calc) 1.0-2. 5 SP BILIRUBIN, TOTAL 0.4 mg/dL 0.2-1.2 SP ALKALINE PHOSPHATASE 86 U/L 33-130 SP AST 22 U/L 10-35 SP ALT 23 U/L 6-29 SP C-PEPTIDE, SERUM - 10/07/17 10:28 POS C-PEPTIDE 0.73 ng/mL 0.80-3.85 SP CMP - 01/05/18 17:17 POS GLUCOSE 158 mg/dL 65-99 SP UREA NITROGEN (BUN) 25 mg/dL 7-25 SP CREATININE 1.95 mg/dL 0.50-1.05 SP eGFR NON-AFR. BAHAMIAN 29 mL/min/1.73m2 > OR=60 SP eGFR 34 mL/min/1.73m2 > OR=60 SP BUN/CREATININE RATIO 13 (calc) 6-22 SP SODIUM 134 mmol/L 135-146 SP POTASSIUM 3.4 mmol/L 3.5-5.3 SP CHLORIDE 98 mmol/L 98-110 SP CARBON DIOXIDE 23 mmol/L 20-31 SP CALCIUM 11.5 mg/dL 8.6-10.4 SP PROTEIN, TOTAL 7.3 g/dL 6.1-8.1 SP ALBUMIN 3.9 g/dL 3.6-5.1 SP GLOBULIN 3.4 g/dL (calc) 1.9-3.7 SP ALBUMIN/GLOBULIN RATIO 1.1 (calc) 1.0-2. 5 SP BILIRUBIN, TOTAL 0.8 mg/dL 0.2-1.2 SP ALKALINE PHOSPHATASE 97 U/L 33-130 SP AST 23 U/L 10-35 SP ALT 15 U/L 6-29 SP LIPASE - 01/05/18 17:17 POS LIPASE 12 U/L 7-60 SP AMYLASE - 01/05/18 17:17 POS AMYLASE 28 U/L 21-101 SP Capillary blood glucose measurement by g lucometer (mass/volume) - 01/18/18 10:58 POS Capillary blood glucose measurement by glucometer (mas s/volume) 552 POS 70-110 SP Complete blood count (CBC) with automate d white blood cell (WBC) differential - POS 11:15 Blood leukocytes automated count (number/volume) 19.8 10*3/uL POS 4.3-11.0 SP Blood erythrocytes automated count (number/volume) 4.56 10*6/uL SP 4.35-5.85 SP Venous blood hemoglobin measurement (mass/volume) 14.4 g/dL SP16.0 Blood hematocrit (volume fraction) 40 % 35-52 SP Automated erythrocyte mean corpuscular volume 87 [ foz_us] SP99 Automated erythrocyte mean corpuscular h emoglobin (mass per erythrocyte) SP 32 pg 25-34 SP Automated erythrocyte mean corpuscular h emoglobin concentration measurement SP 37 g/dL 32-36 SP Automated erythrocyte distribution width ratio 12. 1 % 10.0- SP Automated blood platelet count (count/volume) 329 10*3/uL SP400 Automated blood platelet mean volume measurement 10.5 [foz_us] SP 7.4-10.4 SP Automated blood neutrophils/100 leukocytes 88 % 42-75 SP Automated blood lymphocytes/100 leukocytes 8 % 12-44 SP Blood monocytes/100 leukocytes 3 % 0-12 SP Automated blood eosinophils/100 leukocytes 0 % 0-10 SP Automated blood basophils/100 leukocytes 0 % 0-10 SP Blood neutrophils automated count (number/volume) 17.5 10*3 SP7.8 Blood lymphocytes automated count (number/volume) 1.6 10*3 SP4.0 Blood monocytes automated count (number/volume) 0. 7 10*3 SP1.0 Automated eosinophil count 0.0 10*3/uL 0 .0-0.3 SP Automated blood basophil count (count/volume) 0.0 10*3/uL SP0.1 Comprehensive metabolic panel - 01/18/18 11:15 POS Serum or plasma sodium measurement (moles/volume) 132 mmol/L SP 135-145 SP Serum or plasma potassium measurement (moles/volume) 4.1 mmol/L SP 3.6-5.0 SP Serum or plasma chloride measurement (moles/volume) 95 mmol/L SP 98-107 SP Carbon dioxide 22 mmol/L 21-32 SP Serum or plasma anion gap determination (moles/volume) 15 mmol/L SP 5-14 SP Serum or plasma urea nitrogen measurement (mass/volume ) 45 mg/dL SP 7-18 SP Serum or plasma creatinine measurement (mass/volume) 2.20 mg/dL SP 0.60-1.30 SP Serum or plasma urea nitrogen/creatinine mass ratio 20 NRG SP Serum or plasma creatinine measurement w ith calculation of estimated glomerular SP rate 24 NRG SP Serum or plasma glucose measurement (mass/volume) 606 mg/dL SP105 Serum or plasma calcium measurement (mass/volume) 12.4 mg/dL SP 8.5-10.1 SP Serum or plasma total bilirubin measurement (mass/volu me) 1.4 mg/dL SP 0.1-1.0 SP Serum or plasma alkaline phosphatase [place] surement (enzymatic activity/volume) SP 115 U/L 40-136 SP Serum or plasma aspartate aminotransfera se measurement (enzymatic SP 30 U/L 5-34 SP Serum or plasma alanine aminotransferase measurement (enzymatic activity/volume) SP 26 U/L 0-55 SP Serum or plasma protein measurement (mass/volume) 8.4 g/dL SP8.2 Serum or plasma albumin measurement (mass/volume) 4.2 g/dL SP4.5 Serum or plasma phosphate measurement (m ass/volume) - 01/18/18 11:15 POS Serum or plasma phosphate measurement (mass/volume) 2.1 mg/dL SP 2.3-4.7 SP Magnesium - 01/18/18 11:15 POS Magnesium 3.0 mg/dL 1.8-2.4 SP Blood manual differential performed dete ction - 01/18/18 11:15 POS Blood monocytes/100 leukocytes 1 % NRG SP Manual blood segmented neutrophils/100 leukocytes 87 % NRG SP Blood band neutrophils/100 leukocytes 3 % NRG SP Manual blood lymphocytes/100 leukocytes 9 % NRG SP Manual eosinophils/100 leukocytes in nose 0 % NRG SP Manual blood basophils/100 leukocytes 0 % NRG SP Blood poikilocytosis detection by light microscopy MODERATE SP NRG SP Blood rouleaux detection by light microscopy SLIGH T NRG SP Blood stomatocytes detection by light microscopy M ODERATE SP Blood platelet clump detection by light microscopy OCCASIONAL SP NRG SP Bacterial blood culture - 01/18/18 11:15 POS Bacterial blood culture NG NRG SP Blood lactic acid measurement (moles/vol ume) - 01/18/18 11:46 POS Blood lactic acid measurement (moles/volume) 2.64 mmol/L SP2.00 Bacterial blood culture - 01/18/18 11:46 POS Bacterial blood culture NG NRG SP Complete urinalysis with reflex to cultu re - 01/18/18 12:30 POS Urine color determination YELLOW NRG SP Urine clarity determination CLEAR NR G SP Urine pH measurement by test strip 5 5-9 SP Specific gravity of urine by test strip 1.015 1.016-1.022 SP Urine protein assay by test strip, semi-quantitative 3+ SP Urine glucose detection by automated test strip 4+ NEGATIVE SP Erythrocytes detection in urine sediment by light micr oscopy 1+ SP NEGATIVE SP Urine ketones detection by automated test strip 2+ NEGATIVE SP Urine nitrite detection by test strip NEGATIVE NEGATIVE SP Urine total bilirubin detection by test strip NEGA TIVE SP Urine urobilinogen measurement by automated test strip (mass/volume) SP NORMAL SP Urine leukocyte esterase detection by dipstick NEG ATIVE SP Automated urine sediment erythrocyte cou nt by microscopy (number/high power SP RARE NRG SP Automated urine sediment leukocyte count by microscopy (number/high power field) SP [HPF] NRG SP Bacteria detection in urine sediment by light microsco py NEGATIVE SP NRG SP Squamous epithelial cells detection in u rine sediment by light microscopy SP 0-2 NRG SP Crystals detection in urine sediment by light microsco py NONE SP NRG SP Casts detection in urine sediment by light microscopy PRESENT SP NRG SP Mucus detection in urine sediment by light microscopy NEGATIVE SP NRG SP Complete urinalysis with reflex to culture NO NRG SP Hyaline casts detection in urine sediment by light aisha roscopy 0-2 SP NRG SP Renal epithelial cells detection in urin e sediment by light microscopy SP NONE NRG SP Arterial blood gas measurement - 8 13:28 POS Blood pCO2 34 mm[Hg] 35-45 SP Blood pO2 75 mm[Hg] 79-93 SP Arterial blood bicarbonate measurement (moles/volume) 23 mmol/L SP 23-27 SP Arterial blood base excess by calculation -1.2 mmo l/L SP Arterial blood oxygen saturation measurement 96 % 94-100 SP * Inhaled oxygen flow rate N/A NRG SP Arterial blood pH measurement with patient temperature correction 7.43 SP 7.37-7.43 SP Arterial blood carbon dioxide, total measurement (mole s/volume) 23.6 SP 21.0-31.0 SP Body site LEFT RADIAL NRG SP Assessment of wrist artery patency prior to arterial p uncture POSITIVE SP NRG SP Setting of ventilation mode NO NR G SP Measurement of body temperature 98.2 NRG SP Capillary blood glucose measurement by g lucometer (mass/volume) - 01/18/18 13:46 POS Capillary blood glucose measurement by glucometer (mas s/volume) 230 POS 70-110 SP Serum or plasma lactate measurement (mol es/volume) - 01/18/18 13:55 POS Serum or plasma lactate measurement (moles/volume) 2.75 mmol/L SP 0.50-2.00 SP Capillary blood glucose measurement by g lucometer (mass/volume) - 01/18/18 19:36 POS Capillary blood glucose measurement by glucometer (mas s/volume) 105 POS 70-110 SP Capillary blood glucose measurement by g lucometer (mass/volume) - 01/19/18 05:39 POS Capillary blood glucose measurement by glucometer (mas s/volume) 76 POS 70-110 SP Complete blood count (CBC) with automate d white blood cell (WBC) differential - POS 07:08 Blood leukocytes automated count (number/volume) 8.2 10*3/uL POS 4.3-11.0 SP Blood erythrocytes automated count (number/volume) 4.05 10*6/uL SP 4.35-5.85 SP Venous blood hemoglobin measurement (mass/volume) 12.5 g/dL SP16.0 Blood hematocrit (volume fraction) 36 % 35-52 SP Automated erythrocyte mean corpuscular volume 89 [ foz_us] SP99 Automated erythrocyte mean corpuscular h emoglobin (mass per erythrocyte) SP 31 pg 25-34 SP Automated erythrocyte mean corpuscular h emoglobin concentration measurement SP 35 g/dL 32-36 SP Automated erythrocyte distribution width ratio 12. 2 % 10.0- SP Automated blood platelet count (count/volume) 273 10*3/uL SP400 Automated blood platelet mean volume measurement 10.3 [foz_us] SP 7.4-10.4 SP Automated blood neutrophils/100 leukocytes 51 % 42-75 SP Automated blood lymphocytes/100 leukocytes 39 % 12-44 SP Blood monocytes/100 leukocytes 10 % 0-12 SP Automated blood eosinophils/100 leukocytes 0 % 0-10 SP Automated blood basophils/100 leukocytes 0 % 0-10 SP Blood neutrophils automated count (number/volume) 4.2 10*3 SP7.8 Blood lymphocytes automated count (number/volume) 3.2 10*3 SP4.0 Blood monocytes automated count (number/volume) 0. 8 10*3 SP1.0 Automated eosinophil count 0.0 10*3/uL 0 .0-0.3 SP Automated blood basophil count (count/volume) 0.0 10*3/uL SP0.1 Comprehensive metabolic panel - 01/19/18 07:08 POS Serum or plasma sodium measurement (moles/volume) 141 mmol/L SP 135-145 SP Serum or plasma potassium measurement (moles/volume) 3.1 mmol/L SP 3.6-5.0 SP Serum or plasma chloride measurement (moles/volume) 111 mmol/L SP 98-107 SP Carbon dioxide 21 mmol/L 21-32 SP Serum or plasma anion gap determination (moles/volume) 9 mmol/L SP 5-14 SP Serum or plasma urea nitrogen measurement (mass/volume ) 29 mg/dL SP 7-18 SP Serum or plasma creatinine measurement (mass/volume) 1.16 mg/dL SP 0.60-1.30 SP Serum or plasma urea nitrogen/creatinine mass ratio 25 NRG SP Serum or plasma creatinine measurement w ith calculation of estimated glomerular SP rate 49 NRG SP Serum or plasma glucose measurement (mass/volume) 64 mg/dL SP105 Serum or plasma calcium measurement (mass/volume) 10.2 mg/dL SP 8.5-10.1 SP Serum or plasma total bilirubin measurement (mass/volu me) 0.8 mg/dL SP 0.1-1.0 SP Serum or plasma alkaline phosphatase [place] surement (enzymatic activity/volume) SP 75 U/L 40-136 SP Serum or plasma aspartate aminotransfera se measurement (enzymatic SP 25 U/L 5-34 SP Serum or plasma alanine aminotransferase measurement (enzymatic activity/volume) SP 18 U/L 0-55 SP Serum or plasma protein measurement (mass/volume) 6.1 g/dL SP8.2 Serum or plasma albumin measurement (mass/volume) 3.2 g/dL SP4.5 Capillary blood glucose measurement by g lucometer (mass/volume) - 01/19/18 11:46 POS Capillary blood glucose measurement by glucometer (mas s/volume) 73 POS 70-110 SP TSH - 12/22/18 09:36 POS TSH 2.71 mIU/L NRG SP PDM - PAIN MGMT (PROFILE 3 WITH CONFIRMA TION) - 12/22/18 09:36 POS Prescribed Drug 1 Hydrocodone NRG SP Creatinine 53.0 mg/dL > or=20.0 SP pH 5.86 4.5 - 9.0 SP Oxidant NEGATIVE mcg/mL <200 SP Amphetamines NEGATIVE ng/mL <500 SP medMATCH Amphetamines CONSISTENT NRG SP Benzodiazepines NEGATIVE ng/mL <100 SP medMATCH Benzodiazepines CONSISTENT NRG SP Marijuana Metabolite NEGATIVE ng/mL <20 SP medMATCH Marijuana Metab CONSISTENT NRG SP Cocaine Metabolite NEGATIVE ng/mL <150 SP medMATCH Cocaine Metab CONSISTENT NRG SP Opiates NEGATIVE ng/mL <100 SP medMATCH Opiates INCONSISTENT NRG SP Oxycodone NEGATIVE ng/mL <100 SP medMATCH Oxycodone CONSISTENT NRG SP COMMENT NRG SP Complete blood count (CBC) with automate d white blood cell (WBC) differential - POS 18:40 Blood leukocytes automated count (number/volume) 9.7 10*3/uL POS 4.3-11.0 SP Blood erythrocytes automated count (number/volume) 3.92 10*6/uL SP 4.35-5.85 SP Venous blood hemoglobin measurement (mass/volume) 12.0 g/dL SP16.0 Blood hematocrit (volume fraction) 35 % 35-52 SP Automated erythrocyte mean corpuscular volume 89 [ foz_us] SP99 Automated erythrocyte mean corpuscular h emoglobin (mass per erythrocyte) SP 31 pg 25-34 SP Automated erythrocyte mean corpuscular h emoglobin concentration measurement SP 35 g/dL 32-36 SP Automated erythrocyte distribution width ratio 12. 0 % 10.0- SP Automated blood platelet count (count/volume) 279 10*3/uL SP400 Automated blood platelet mean volume measurement 10.6 [foz_us] SP 7.4-10.4 SP Automated blood neutrophils/100 leukocytes 71 % 42-75 SP Automated blood lymphocytes/100 leukocytes 18 % 12-44 SP Blood monocytes/100 leukocytes 8 % 0-12 SP Automated blood eosinophils/100 leukocytes 3 % 0-10 SP Automated blood basophils/100 leukocytes 0 % 0-10 SP Blood neutrophils automated count (number/volume) 6.8 10*3 SP7.8 Blood lymphocytes automated count (number/volume) 1.8 10*3 SP4.0 Blood monocytes automated count (number/volume) 0. 7 10*3 SP1.0 Automated eosinophil count 0.3 10*3/uL 0 .0-0.3 SP Automated blood basophil count (count/volume) 0.0 10*3/uL SP0.1 Comprehensive metabolic panel - 05/21/19 18:40 POS Serum or plasma sodium measurement (moles/volume) 126 mmol/L SP 135-145 SP Serum or plasma potassium measurement (moles/volume) 4.7 mmol/L SP 3.6-5.0 SP Serum or plasma chloride measurement (moles/volume) 93 mmol/L SP 98-107 SP Carbon dioxide 21 mmol/L 21-32 SP Serum or plasma anion gap determination (moles/volume) 12 mmol/L SP 5-14 SP Serum or plasma urea nitrogen measurement (mass/volume ) 21 mg/dL SP 7-18 SP Serum or plasma creatinine measurement (mass/volume) 1.94 mg/dL SP 0.60-1.30 SP Serum or plasma urea nitrogen/creatinine mass ratio 11 NRG SP Serum or plasma creatinine measurement w ith calculation of estimated glomerular SP rate 27 NRG SP Serum or plasma glucose measurement (mass/volume) 686 mg/dL SP105 Serum or plasma calcium measurement (mass/volume) 10.9 mg/dL SP 8.5-10.1 SP Serum or plasma total bilirubin measurement (mass/volu me) 0.3 mg/dL SP 0.1-1.0 SP Serum or plasma alkaline phosphatase [place] surement (enzymatic activity/volume) SP 129 U/L 40-136 SP Serum or plasma aspartate aminotransfera se measurement (enzymatic SP 13 U/L 5-34 SP Serum or plasma alanine aminotransferase measurement (enzymatic activity/volume) SP 12 U/L 0-55 SP Serum or plasma protein measurement (mass/volume) 7.3 g/dL SP8.2 Serum or plasma albumin measurement (mass/volume) 3.5 g/dL SP4.5 CALCIUM CORRECTED 11.3 mg/dL 8.5-10.1 SP Magnesium - 05/21/19 18:40 POS Magnesium 2.2 mg/dL 1.6-2.4 SP PT panel in platelet poor plasma by coag ulation assay - 05/21/19 18:40 POS Prothrombin time (PT) in platelet poor plasma by coagu lation assay SP s 12.2-14.7 SP INR in platelet poor plasma or blood by coagulation as say 0.9 SP 0.8-1.4 SP Activated partial thromboplastin time (a PTT) in platelet poor plasma POS assay - 05/21/19 18:40 Activated partial thromboplastin time (a PTT) in platelet poor plasma POS assay 26 s 24-35 SP Serum or plasma thyrotropin measurement by detection limit <=0.05 miu/l POS - 05/21/19 18:40 Serum or plasma thyrotropin measurement by detection limit <=0.05 miu/l POS 0.82 u[iU]/mL 0.35-4.94 SP Complete urinalysis with reflex to cultu re - 05/21/19 19:07 POS Urine color determination YELLOW NRG SP Urine clarity determination CLEAR NR G SP Urine pH measurement by test strip 6 5-9 SP Specific gravity of urine by test strip 1.010 1.016-1.022 SP Urine protein assay by test strip, semi-quantitative 3+ SP Urine glucose detection by automated test strip 4+ NEGATIVE SP Erythrocytes detection in urine sediment by light micr oscopy 2+ SP NEGATIVE SP Urine ketones detection by automated test strip NE GATIVE SP Urine nitrite detection by test strip NEGATIVE NEGATIVE SP Urine total bilirubin detection by test strip NEGA TIVE SP Urine urobilinogen measurement by automated test strip (mass/volume) SP NORMAL SP Urine leukocyte esterase detection by dipstick NEG ATIVE SP Automated urine sediment erythrocyte cou nt by microscopy (number/high power SP [HPF] NRG SP Automated urine sediment leukocyte count by microscopy (number/high power field) SP [HPF] NRG SP Bacteria detection in urine sediment by light microsco py TRACE SP NRG SP Squamous epithelial cells detection in u rine sediment by light microscopy SP 0-5 NRG SP Crystals detection in urine sediment by light microsco py NONE SP NRG SP Casts detection in urine sediment by light microscopy NONE SP Mucus detection in urine sediment by light microscopy NEGATIVE SP NRG SP Complete urinalysis with reflex to culture YES NRG SP Urine drug screening test - 05/21/19 19: 07 POS Urine phencyclidine detection by screening method NEGATIVE SP Urine benzodiazepines detection by screening method NEGATIVE SP NEGATIVE SP Urine cocaine detection NEGATIVE NEGATI VE SP Urine amphetamines detection by screening method N EGATIVE SP Urine methamphetamine detection by screening method NEGATIVE SP NEGATIVE SP Urine cannabinoids detection by screening method N EGATIVE SP Urine opiates detection by screening method NEGATI VE SP Urine barbiturates detection NEGATIVE N EGATIVE SP Screening urine tricyclic antidepressants detection NEGATIVE SP NEGATIVE SP Urine methadone detection by screening method NEGA TIVE SP Urine oxycodone detection NEGATIVE NEGA TIVE SP Urine propoxyphene detection NEGATIVE N EGATIVE SP Bacterial urine culture - 05/21/19 19:07 POS Bacterial urine culture 3 OR MORE NRG SP COLONY COUNT 20,000 CFU/ML NRG SP FTX;REPORTABLE GRAM POSITIVE ISOLATES; SUGGESTING NRG SP FREE TEXT ENTRY 2 PROBABLE COLLECTION CONTAMINATIO N WITH SP FREE TEXT ENTRY 3 SKIN OTIS. NO SUSCEPTIBILITY PE RFORMED. SP Blood lactic acid measurement (moles/vol ume) - 05/21/19 19:29 POS Blood lactic acid measurement (moles/volume) 2.40 mmol/L SP2.00 Arterial blood gas measurement - 9 19:35 POS Blood pCO2 29 mm[Hg] 35-45 SP Blood pO2 84 mm[Hg] 79-93 SP Arterial blood bicarbonate measurement (moles/volume) 22 mmol/L SP 23-27 SP Arterial blood base excess by calculation -0.9 mmo l/L SP Arterial blood oxygen saturation measurement 98 % 94-100 SP * Inhaled oxygen flow rate ROOM AIR NRG SP Arterial blood pH measurement with patient temperature correction 7.50 SP 7.37-7.43 SP Arterial blood carbon dioxide, total measurement (mole s/volume) 22.9 SP 21.0-31.0 SP Body site LEFT RADIAL NRG SP Assessment of wrist artery patency prior to arterial p uncture YES-POS SP NRG SP Setting of ventilation mode NO NR G SP Measurement of body temperature 98.0 NRG SP Capillary blood glucose measurement by g lucometer (mass/volume) - 05/21/19 20:14 POS Capillary blood glucose measurement by glucometer (mas s/volume) 399 POS 70-110 SP Capillary blood glucose measurement by g lucometer (mass/volume) - 05/21/19 21:22 POS Capillary blood glucose measurement by glucometer (mas s/volume) 134 POS 70-110 SP Methicillin resistant Staphylococcus aur eus (MRSA) screening culture - 05/21/19 POS Methicillin resistant Staphylococcus aureus (MRSA) scr eening culture POS NRG SP Capillary blood glucose measurement by g lucometer (mass/volume) - 05/22/19 00:40 POS Capillary blood glucose measurement by glucometer (mas s/volume) 203 POS 70-110 SP Complete blood count (CBC) with automate d white blood cell (WBC) differential - POS 03:18 Blood leukocytes automated count (number/volume) 10.3 10*3/uL POS 4.3-11.0 SP Blood erythrocytes automated count (number/volume) 3.33 10*6/uL SP 4.35-5.85 SP Venous blood hemoglobin measurement (mass/volume) 10.3 g/dL SP16.0 Blood hematocrit (volume fraction) 30 % 35-52 SP Automated erythrocyte mean corpuscular volume 90 [ foz_us] SP99 Automated erythrocyte mean corpuscular h emoglobin (mass per erythrocyte) SP 31 pg 25-34 SP Automated erythrocyte mean corpuscular h emoglobin concentration measurement SP 35 g/dL 32-36 SP Automated erythrocyte distribution width ratio 12. 0 % 10.0- SP Automated blood platelet count (count/volume) 249 10*3/uL SP400 Automated blood platelet mean volume measurement 10.1 [foz_us] SP 7.4-10.4 SP Automated blood neutrophils/100 leukocytes 60 % 42-75 SP Automated blood lymphocytes/100 leukocytes 24 % 12-44 SP Blood monocytes/100 leukocytes 11 % 0-12 SP Automated blood eosinophils/100 leukocytes 5 % 0-10 SP Automated blood basophils/100 leukocytes 0 % 0-10 SP Blood neutrophils automated count (number/volume) 6.2 10*3 SP7.8 Blood lymphocytes automated count (number/volume) 2.4 10*3 SP4.0 Blood monocytes automated count (number/volume) 1. 1 10*3 SP1.0 Automated eosinophil count 0.5 10*3/uL 0 .0-0.3 SP Automated blood basophil count (count/volume) 0.0 10*3/uL SP0.1 Comprehensive metabolic panel - 05/22/19 03:18 POS Serum or plasma sodium measurement (moles/volume) 138 mmol/L SP 135-145 SP Serum or plasma potassium measurement (moles/volume) 3.6 mmol/L SP 3.6-5.0 SP Serum or plasma chloride measurement (moles/volume) 109 mmol/L SP 98-107 SP Carbon dioxide 21 mmol/L 21-32 SP Serum or plasma anion gap determination (moles/volume) 8 mmol/L SP 5-14 SP Serum or plasma urea nitrogen measurement (mass/volume ) 24 mg/dL SP 7-18 SP Serum or plasma creatinine measurement (mass/volume) 1.18 mg/dL SP 0.60-1.30 SP Serum or plasma urea nitrogen/creatinine mass ratio 20 NRG SP Serum or plasma creatinine measurement w ith calculation of estimated glomerular SP rate 48 NRG SP Serum or plasma glucose measurement (mass/volume) 159 mg/dL SP105 Serum or plasma calcium measurement (mass/volume) 9.7 mg/dL SP10.1 Serum or plasma total bilirubin measurement (mass/volu me) 0.2 mg/dL SP 0.1-1.0 SP Serum or plasma alkaline phosphatase [place] surement (enzymatic activity/volume) SP 91 U/L 40-136 SP Serum or plasma aspartate aminotransfera se measurement (enzymatic SP 16 U/L 5-34 SP Serum or plasma alanine aminotransferase measurement (enzymatic activity/volume) SP 12 U/L 0-55 SP Serum or plasma protein measurement (mass/volume) 5.5 g/dL SP8.2 Serum or plasma albumin measurement (mass/volume) 2.6 g/dL SP4.5 CALCIUM CORRECTED 10.8 mg/dL 8.5-10.1 SP Serum or plasma phosphate measurement (m ass/volume) - 05/22/19 03:18 POS Serum or plasma phosphate measurement (mass/volume) 2.0 mg/dL SP 2.3-4.7 SP Magnesium - 05/22/19 03:18 POS Magnesium 2.0 mg/dL 1.6-2.4 SP Beta-hydroxybutyric acid measurement - 07/22/18 03:18 POS Beta-hydroxybutyric acid measurement 0.05 mmol/L 0.00-0.27 SP Capillary blood glucose measurement by g lucometer (mass/volume) - 05/22/19 11:33 POS Capillary blood glucose measurement by glucometer (mas s/volume) 95 POS 70-110 SP Capillary blood glucose measurement by g lucometer (mass/volume) - 05/22/19 14:46 POS Capillary blood glucose measurement by glucometer (mas s/volume) 78 POS 70-110 SP Capillary blood glucose measurement by g lucometer (mass/volume) - 05/22/19 15:52 POS Capillary blood glucose measurement by glucometer (mas s/volume) 84 POS 70-110 SP Capillary blood glucose measurement by g lucometer (mass/volume) - 05/22/19 20:51 POS Capillary blood glucose measurement by glucometer (mas s/volume) 139 POS 70-110 SP Capillary blood glucose measurement by g lucometer (mass/volume) - 05/23/19 05:50 POS Capillary blood glucose measurement by glucometer (mas s/volume) 187 POS 70-110 SP Capillary blood glucose measurement by g lucometer (mass/volume) - 05/23/19 10:55 POS Capillary blood glucose measurement by glucometer (mas s/volume) 190 POS 70-110 SP Encounters ACCT No. Visit Date/Time Discharge Status POS Pt. Type Provider Facility Loc./Un it POS Complaint POS [id number] 03/15/2019 00:55:34 ACT SP Registration SP [id number] 05/21/2019 21:09:00 019 11:36:00 SP DIS Outpatient WATSON DO, YUMIKO [facility] 4TH UNCONTROLLED DIABETES,UTI SP [id number] 01/25/2018 11:17:00 018 23:59:59 SP CLS Preadmit ANA AQUINO, JALEN [facility] RAD SLURRED SPEECH SP [id number] 01/18/2018 17:37:00 018 12:24:00 SP DIS Inpatient BARNIDGE DO, TANYA E [facility] 4TH DKA LACTIC SP [id number] 01/30/2017 23:00:00 017 01:01:00 SP DIS Emergency AMADOU AQUINO, THAO Tan [facility] ER HEADACHE SP [id number] 12/28/2016 09:26:00 017 11:49:00 SP DIS Emergency LANA MARINELLI [facility] ER FALL/R FOOT INJ SP [id number] 08/18/2016 21:13:00 017 11:55:00 SP DIS Inpatient ANA AQUINO, JALEN Stiles [facility] 4TH SEPSIS,UTI,N/V,HYPERGLYCEMIA SP [id number] 07/02/2015 16:13:00 015 11:51:00 SP DIS Inpatient PERKINS DO, AWA K V [facility] 4TH UNCONTROLLED DM ACUTE RENAL FAILURE SP [id number] 06/03/2015 21:21:00 015 15:15:00 SP DIS Inpatient LOBITO AQUINO, МАРИЯ Tan [facility] 4TH UNCONTROLLED DIABETES, SP [id number] 05/23/2015 20:16:00 15:50:00 SP DIS Inpatient YUSUF AQUINO, JAIME Pink [facility] CSD R ARM/HAND AND LEG SP DIABE [id number] 01/10/2015 08:48:00 11:33:00 SP DIS Emergency CHAI AQUINO, CLAUDETTE Chandra [facility] ER FALL/RIGHT ARM INJURY SP [id number] 01/10/2015 08:47:00 SP Registration SP [id number] 01/10/2015 08:47:00 SP Registration SP [id number] 01/10/2015 08:47:00 SP Registration SP [id number] 01/10/2015 08:47:00 SP Registration SP [id number] 03/14/2019 13:10:02 ACT Unknown SP SP [id number] 01/19/2019 15:20:00 01/19/2019 23:59: 59 CLS SP Outpatient JALEN PEREZ [facility] SP [facility] SP [id number] 12/22/2018 08:40:00 Document SPRegistration SP [id number] 01/05/2018 16:40:00 Document SPRegistration SP [id number] 10/07/2017 10:40:00 Document SPRegistration SP [id number] 08/18/2017 16:40:00 Document SPRegistration SP [id number] 07/01/2017 09:00:00 Document SPRegistration SP
--- OUTSIDE RECORDS SUMMARY | 2019-06-14 04:21 | XMS REPORT | Continuity of Care Document ---
Author Organization Unknown POS Address Unknown SP Phone Unavailable SP Allergies Active Description Code Type Severity POS Reaction Onset Reported/Identified POS to Patient Clinical Status POS Yes ibuprofen [id number] Drug Allergy SP N/A 02/18/2007 SP Yes Penicillins [id number] Drug Aller gy SP N/A 06/03/2015 SP Yes peas [id number] Drug Allergy Unknown SP N/A 01/19/2018 SP [...] Ot E78. 5 SP SP 06/06/2015 LOBITO AQUINO, МАРИЯ Tan Ot E83. 42 SP SP [...] N17. 9 SP SP 06/06/2015 LOBITO AQUINO, МАРИЯ Tan Ot N39. 0 SP SP 06/06/2015 [...] AWA K Ot Z91.19 SP NONCOMPLIANCE W [facility] SP 08/20/2016 JALEN PEREZ MD [...] SP 12/28/2016 LANA MARINELLI Ot Z79.4 SP MCFP (CURRENT) USE OF INSULIN SP 12/28/2016 LANA MARINELLI Ot Z79.82 SP ELASTIC ATTACHER COVERSTITCH (CURRENT) USE OF ASPIRIN SP 12/28/2016 LANA [...] OVEREXERTION FROM STRENUOUS MOVEMENT OR SP 01/03/2017 ALNA MARINELLI Ot Z79.4 SP ELASTIC ATTACHER COVERSTITCH (CURRENT) USE OF INSULIN SP 01/03/2017 LANA MARINELLI Ot Z79.82 SP ELASTIC ATTACHER COVERSTITCH (CURRENT) USE OF ASPIRIN SP 01/03/2017 LANA [...] 51 SP LIGATION STATUS SP 02/04/2017 THAO TOBAR MD Ot Z98.890 SP OTHER [...] E78.00 SP PURE HYPERCHOLESTEROLEMIA, UNSPECIFIED SP 01/19/2018 [facility] Ot E83.52 SP HYPERCALCEMIA SP 01/19/2018 TANYA KOHLER DO Ot E86.0 SP DEHYDRATION SP 01/19/2018 TANYA KOHLER DO Ot E87.1 SP HYPO-OSMOLALITY AND HYPONATREMIA SP 01/19/2018 WILDERTANYA Gonzalez DO Ot E87.2 SP ACIDOSIS SP 01/19/2018 TANYA KOHLER DO Ot E87.6 SP HYPOKALEMIA SP 01/19/2018 [facility] Ot F17.210 SP NICOTINE DEPENDENCE, CIGARETTES, UNCOMPL SP 01/19/2018 TANYA KOHLER DO Ot F32.9 SP MAJOR DEPRESSIVE DISORDER, SINGLE EPISOD SP 01/19/2018 TANYA KOHLER DO Ot F41.9 SP ANXIETY DISORDER, UNSPECIFIED SP 01/19/2018 [facility] Ot F60.9 SP PERSONALITY DISORDER, UNSPECIFIED SP 01/19/2018 TANYA KOHLER DO Ot G43.909 SP MIGRAINE, UNSP, NOT INTRACTABLE, WITHOUT SP 01/19/2018 [facility] Ot G47.9 SP SLEEP DISORDER, UNSPECIFIED SP 01/19/2018 WILDERTANYA Gonzalez DO Ot I10 SP ESSENTIAL (PRIMARY) HYPERTENSION SP 01/19/2018 WILDERTANYA Gonzalez DO Ot I25.10 SP ATHSCL HEART DISEASE OF [place] CORONARY SP 01/19/2018 TANYA KOHLER DO Ot J45.909 SP UNSPECIFIED ASTHMA, UNCOMPLICATED SP 01/19/2018 TANYA KOHLER DO Ot K21.9 SP GASTRO-ESOPHAGEAL REFLUX DISEASE WITHOUT SP 01/19/[facility] Ot M54.9 SP DORSALGIA, UNSPECIFIED SP 01/19/2018 WILDERTANYA Gonzalez DO Ot N28.9 SP DISORDER OF KIDNEY AND URETER, UNSPECIFI SP 01/19/2018 TANYA KOHLER DO Ot Z79.4 SP ELASTIC ATTACHER COVERSTITCH (CURRENT) USE OF INSULIN SP 01/19/2018 WILDERTANYA Gonzalez DO Ot 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), AND CEREB INFRC W SP 01/19/2018 WILDERTANYA Gonzalez DO Ot A08.4 SP VIRAL INTESTINAL INFECTION, UNSPECIFIED SP 01/19/2018 [facility] TANYA HODGE Ot D72.829 SP ELEVATED WHITE BLOOD CELL COUNT, UNSPECI SP 01/19/2018 [facility] DO Ot E11.10 SP TYPE 2 DIABETES MELLITUS WITH KETOACIDOS SP 01/19/2018 [facility] DO Ot 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 TANYA HODGE Ot E87.6 SP HYPOKALEMIA SP 01/19/2018 [facility] Ot F17.210 SP NICOTINE DEPENDENCE, CIGARETTES, UNCOMPL SP 01/19/2018 WILDERTANYA Gonzalez DO Ot F32.9 SP MAJOR DEPRESSIVE DISORDER, SINGLE EPISOD SP 01/19/2018 [facility] TANYA HODGE Ot F39 SP UNSPECIFIED MOOD [AFFECTIVE] DISORDER SP 01/19/2018 [facility] TANYA HODGE Ot F41.9 SP ANXIETY DISORDER, UNSPECIFIED SP 01/19/2018 [facility] TANYA HODGE Ot F60.9 SP PERSONALITY DISORDER, UNSPECIFIED SP 01/19/2018 [facility] TANYA HODGE Ot G43.909 SP MIGRAINE, UNSP, NOT INTRACTABLE, WITHOUT SP 01/19/2018 [facility] HODGE Ot G47.9 SP SLEEP DISORDER, UNSPECIFIED SP 01/19/2018 [facility] TANY[facility] HODGE Ot I10 SP ESSENTIAL (PRIMARY) HYPERTENSION SP 01/19/2018 WILDERTANYA Gonzalez DO Ot I25.10 SP ATHSCL HEART DISEASE OF [place] CORONARY SP 01/19/2018 [facility] TANYA HODGE Ot J45.909 SP UNSPECIFIED ASTHMA, UNCOMPLICATED SP 01/19/2018 WILD[place]ANYA Gonzalez DO Ot K21.9 SP GASTRO-ESOPHAGEAL REFLUX DISEASE WITHOUT SP 01/19/2018 [facility] Ot M54.9 SP DORSALGIA, UNSPECIFIED SP 01/19/2018 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 TANYA HODGE Ot A08.4 SP VIRAL INTESTINAL INFECTION, UNSPECIFIED SP 11/18/2018 [facility] TANYA HODGE Ot D72.829 SP ELEVATED WHITE BLOOD CELL COUNT, UNSPECI SP 11/18/2018 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 TANYA HODGE Ot E78.00 SP PURE HYPERCHOLESTEROLEMIA, UNSPECIFIED SP 11/18/2018 [facility] Ot E83.52 SP HYPERCALCEMIA SP 11/18/2018 [facility] TANYA HODGE Ot E86.0 SP DEHYDRATION SP 11/18/2018 [facility] TANYA HODGE Ot E87.1 SP HYPO-OSMOLALITY AND HYPONATREMIA SP 11/18/2018 [facility] Ot E87.2 SP ACIDOSIS SP 11/18/2018 [facility] TANYA HODGE Ot E87.6 SP HYPOKALEMIA SP 11/18/2018 [facility] TANYA HODGE Ot F17.210 SP NICOTINE DEPENDENCE, CIGARETTES, UNCOMPL SP 11/18/2018 [facility] TANY[facility] HODGE Ot F32.9 SP MAJOR DEPRESSIVE DISORDER, SINGLE EPISOD SP 11/18/2018 [facility] TANYA HODGE Ot F41.9 SP ANXIETY DISORDER, UNSPECIFIED SP 11/18/2018 [facility] TAYNA HODGE Ot F60.9 SP PERSONALITY DISORDER, UNSPECIFIED SP 11/18/2018 [facility] TANYA HODGE Ot G43.909 SP MIGRAINE, UNSP, NOT INTRACTABLE, WITHOUT SP 11/18/2018 [facility] TANYA HODGE Ot G47.9 SP SLEEP DISORDER, UNSPECIFIED SP 11/18/2018 [facility] TANYA HODGE Ot I10 SP ESSENTIAL (PRIMARY) HYPERTENSION SP 11/18/2018 [facility] Ot I25.10 SP ATHSCL HEART DISEASE OF [place] CORONARY SP 11/18/2018 [facility] Ot J45.909 SP UNSPECIFIED ASTHMA, UNCOMPLICATED SP 11/18/2018 [facility] Ot K21.9 SP GASTRO-ESOPHAGEAL REFLUX DISEASE WITHOUT SP 11/18/2018 [facility] Ot M54.9 SP DORSALGIA, UNSPECIFIED SP 11/18/2018 [facility] Ot N28.9 SP DISORDER OF KIDNEY AND URETER, UNSPECIFI SP 11/18/2018 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 TANYA HODGE Ot E87.1 SP HYPO-OSMOLALITY AND HYPONATREMIA SP 11/18/2018 [facility] Ot E87.2 SP ACIDOSIS SP 11/18/2018 [facility] Ot E87.6 SP HYPOKALEMIA SP 11/18/2018 [facility] TANYA HODGE Ot F17.210 SP NICOTINE DEPENDENCE, CIGARETTES, UNCOMPL SP 11/18/2018 [facility] Ot F32.9 SP MAJOR DEPRESSIVE DISORDER, SINGLE EPISOD SP 11/18/2018 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 SP 11/18/2018 TANYA KOHLER DO, Ot J45.909 SP UNSPECIFIED ASTHMA, UNCOMPLICATED SP 11/18/2018 TANYA KOHLER DO Ot K21.9 SP GASTRO-ESOPHAGEAL REFLUX DISEASE WITHOUT SP 11/18/2018 TANYA KOHLER DO Ot M54.9 SP DORSALGIA, UNSPECIFIED SP 11/18/2018 TANYA KOHLER DO Ot N28.9 SP DISORDER OF KIDNEY AND URETER, UNSPECIFI SP 11/18/2018 TANYA KOHLER DO Ot Z79.4 SP MCFP (CURRENT) USE OF INSULIN SP 11/18/2018 TANYA [...] YUMIKO Ot I25.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 [place] CORONARY SP 05/23/2019 SHIRLEY HODGE YUMIKO Ot [...] OTH MEDICAL TR SP 05/23/2019 SHIRLEY HODGE YUMIKO Ot E11.00 [...] UNSPECIFIED SP 05/23/2019 SHIRLEY HODGE YUMIKO Ot F60.9 SP DISORDER, UNSPECIFIED SP 05/23/2019 SHIRLEY HODGE YUMIKO Ot G43.90 9 SP UNSP, NOT INTRACTABLE, WITHOUT SP 05/23/2019 JOSE ELIAS WATSON DOI Ot I10 SP (PRIMARY) HYPERTENSION SP 05/23/2019 SHIRLEY HODGE YUMIKO Ot I25.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 [place] CORONARY SP 05/23/2019 SHIRLEY HODGE YUMIKO Ot [...] YUMIKO Ot I25.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 [place] CORONARY SP 05/30/2019 SHIRLEY HODGE YUMIKO Ot [...] WATSON DO Ot Z91.19 SP NONCOMPLIANCE W [facility] SP Procedures Code Description Performed By Per formed On POS [id number] IN SERTION OF INFUSION DEV SP SUP [...] GROWTH Isolated NRG SP Bacterial blood culture [id number] NRG SP Bacterial susceptibility panel - 7 [...] - 08/18/16 20:30 POS Bacterial urine culture [id number] NRG SP COLONY COUNT >100,000/ML NRG SP [...] CREATININE 1.09 mg/dL 0.50-1.05 SP eGFR NON-AFR. ENGLISH 59 mL/min/1.73m2 > OR=60 SP eGFR 68 [...] CREATININE 1.04 mg/dL 0.50-1.05 SP eGFR NON-AFR. ENGLISH 62 mL/min/1.73m2 > OR=60 SP eGFR 72 [...] CREATININE 1.95 mg/dL 0.50-1.05 SP eGFR NON-AFR. ENGLISH 29 mL/min/1.73m2 > OR=60 SP eGFR 34 [...] KSWebIZ 03/15/2019 00:55:34 ACT SP Registration SP [id number] 05/21/2019 21:09:00 019 11:36:00 SP DIS Outpatient WATSON DO, YUMIKO [facility] 4TH UNCONTROLLED DIABETES,UTI SP [id number] 01/25/2018 11:17:00 018 23:59:59 SP CLS Preadmit ANA AQUINO, JALEN [facility] RAD SLURRED SPEECH SP [id number] 01/18/2018 17:37:00 018 12:24:00 SP DIS Inpatient BARNIDGE DO, TANYA E [facility] 4TH DKA LACTIC SP [id number] 01/30/2017 23:00:00 017 01:01:00 SP DIS Emergency AMADOU AQUINO, THAO Tan [facility] ER HEADACHE SP [id number] 12/28/2016 09:26:00 017 11:49:00 SP DIS Emergency LANA MARINELLI [facility] ER FALL/R FOOT INJ SP [id number] 08/18/2016 21:13:00 017 11:55:00 SP DIS Inpatient ANA AQUINO, JALEN Stiles [facility] 4TH SEPSIS,UTI,N/V,HYPERGLYCEMIA SP [id number] 07/02/2015 16:13:00 015 11:51:00 SP DIS Inpatient PERKINS DO, AWA K V [facility] 4TH UNCONTROLLED DM ACUTE RENAL FAILURE SP [id number] 06/03/2015 21:21:00 015 15:15:00 SP DIS Inpatient LOBITO AQUINO, МАРИЯ Tan [facility] 4TH UNCONTROLLED DIABETES, SP [id number] 05/23/2015 20:16:00 15:50:00 SP DIS Inpatient YUSUF AQUINO, JAIME Pink [facility] CSD R ARM/HAND AND LEG SP DIABE [id number] 01/10/2015 08:48:00 11:33:00 SP DIS Emergency CHAI AQUINO, CLAUDETTE Chandra [facility] ER FALL/RIGHT ARM INJURY SP [id number] 01/10/2015 08:47:00 SP Registration SP [id number] 01/10/2015 08:47:00 SP Registration SP [id number] 01/10/2015 08:47:00 SP Registration SP [id number] 01/10/2015 08:47:00 SP Registration SP [id number] 03/14/2019 13:10:02 ACT Unknown SP SP [id number] 01/19/2019 15:20:00 01/19/2019 23:59: 59 CLS SP Outpatient JALEN PREEZ [facility] SP [facility] SP [id number] 12/22/2018 08:40:00 Document SPRegistration SP [id number] 01/05/2018 16:40:00 Document SPRegistration SP [id number] 10/07/2017 10:40:00 Document SPRegistration SP [id number] 08/18/2017 16:40:00 Document SPRegistration SP [id number] 07/01/2017 09:00:00 Document SPRegistration SP
[2019-06-27] MEDS ORDERED: MTP100TCR PO (08:46)
== END 2019-05-23 11:36 | disposition home or self-care (01) ==
LOC: EDUNIT# 18:10 → ER 18:11 → UNDOADMOB 20:05 → INTOOBSV 20:05 → ICU 20:05 → 4TH 05-22 15:47 → UNDODISOB 05-23 12:30
PROVIDERS: ADMIT Internal Medicine; ATTEND Internal Medicine
DX: E11.00 Type 2 diabetes mellitus with hyperosmolarity without nonketotic hyperglycemic-hyperosmolar coma (NKHHC) (principal); N39.0 Urinary tract infection, site not specified; R21 Rash and other nonspecific skin eruption; F17.210 Nicotine dependence, cigarettes, uncomplicated; J45.909 Unspecified asthma, uncomplicated; I10 Essential (primary) hypertension; E78.00 Pure hypercholesterolemia, unspecified; I25.10 Atherosclerotic heart disease of native coronary artery without angina pectoris; G43.909 Migraine, unspecified, not intractable, without status migrainosus; E11.40 Type 2 diabetes mellitus with diabetic neuropathy, unspecified; K21.9 Gastro-esophageal reflux disease without esophagitis; F32.9 Major depressive disorder, single episode, unspecified; F41.9 Anxiety disorder, unspecified; F60.9 Personality disorder, unspecified; N19 Unspecified kidney failure; Z79.4 Long term (current) use of insulin; Z91.19 Patient's noncompliance with other medical treatment and regimen
CPT/HCPCS: 36415; 71045; 80053; 80306; 81000; 82010; 82805; 82962; 83605; 83735; 84100; 84443; 85025; 85610; 85730; 87081; 87088; 96361; 96365; 96375; G0378

== ENCOUNTER 2019-06-26 13:38 | Inpatient (IN) | payer MEDICARE ==
[~2019-06-26] VITALS: Ht 157 cm; Wt 50.1 kg
[~2019-06-26 13:38] MED LIST changes: +ACET-77 PO; +AMIT50TA3; +GBPN600T PO; +LAMO100T PO; -LAMO100T5 PO; +LISI1TAB10 PO; -LISI1TAB26 PO; +MAGN400T6 PO; -MAGN400T8 PO; +METO-395 PO; +TRAM50TA2 PO; -TRM50T PO
--- NOTE | 2019-06-26 15:08 | ED Cough/URI ---
General Chief Complaint: Cough/Cold/Flu Symptoms Stated Complaint: VOMITING;COUGH Nursing Triage Note: Patient ambulatory to ER triage with complaint of non-productive cough x 2 months and intermittent vomiting. Patient states she is also short of breath at night when lying down. Patient denies any chest pain. Sepsis Screen: No Definite Risk Source: patient Exam Limitations: no limitations History of Present Illness Date Seen by Provider: Jun 26, 2019 Time Seen by Provider: 15:05 Initial Comments This 54-year-old white female presents with a complaint of productive cough last 2 months. The prolonged coughing at night causes the patient to have posttussive emesis. Patient denies chest pain or heart disease. The patient has been seen by her primary care physician the last 2 months for her h ypertension. Allergies and Home Medications Allergies Coded Allergies: Penicillins (Unverified Allergy, Unknown, 06/03/15) ibuprofen (Verified Allergy, Unknown, 02/18/07) peas (Verified Allergy, Unknown, 01/19/18) Home Medications Acetaminophen 500 Mg Tablet, 1,000 MG PO Q8H PRN for PAIN-MILD, (Reported) Clopidogrel Bisulfate 75 Mg Tablet, 75 MG PO DAILY, (Reported) LAST FILLED 12-26-2018 FOR #90/90DAY SUPPLY Gabapentin 600 Mg Tablet, 600 MG PO Q8H, (Reported) Hydrocodone/Acetaminophen 1 Each Tablet, 1 TAB PO Q8H PRN for PAIN-MODERATE, (Reported) Insulin Aspart 300 Units/3 Ml Solution, 10 UNITS SC TIDWM, (Reported) Insulin Detemir 100 Unit/1 Ml Insuln.pen, 16 UNITS SC Q12H, (Reported) USES MORNING AND BEDTIME Lisinopril 20 Mg Tablet, 20 MG PO DAILY, (Reported) Metoprolol Succinate 100 Mg Tab.er.24h, 100 MG PO DAILY Prescribed by: YUMIKO WATSON on 05/23/19 1010 Patient Home Medication List Home Medication List Reviewed: Yes Review of Systems Review of Systems Constitutional: No chills, No fever EENTM: no symptoms reported Respiratory: see HPI, cough, phlegm, short of breath Gastrointestinal: abdominal pain Genitourinary: no symptoms reported Musculoskeletal: no symptoms reported Skin: no symptoms reported Psychiatric/Neurological: No Symptoms Reported Hematologic/Lymphatic: No Symptoms Reported Immunological/Allergic: no symptoms reported Past Beedtmu-Kzralc-Rjysca Hx Past Med/Social Hx: Reviewed Nursing Past Med/Soc Hx Patient Social History Alcohol Use: Denies Use Number of Drinks Today: AA Alcohol Beverage of Choice: Beer Recreational Drug Use: No Smoking Status: Never a Smoker Type Used: Cigarettes 2nd Hand Smoke Exposure: Yes Recent Foreign Travel: No Contact w/Someone Who Travel: No Recent Infectious Disease Expo: No Recent Hopitalizations: No Immunizations Up To Date Tetanus Booster (TDap): Unknown Seasonal Allergies Seasonal Allergies: No Past Medical History Surgeries: Yes Abdominal, Section, Ear Surgery, Gallbladder, Orthopedic, Tubal Ligation Respiratory: Yes (PLEURAL EFFUSION--RESOLVED) Asthma Currently Using CPAP: No Currently Using BIPAP: No Cardiac: Yes Coronary Artery Disease, High Cholesterol, Hypertension Neurological: Yes (CVA 12/2012--RIGHT SIDE WEAKNESS RESOLVED. ) Headaches /Migraines, Neuropathy, Stroke Reproductive Disorders: No Female Reproductive Disorders: Denies WEIGHT LOSS PHYSICIAN History: Tubal Ligation, Menopausal Sexually Transmitted Disease: No HIV/AIDS: No Genitourinary: Yes Bladder Infection, Renal Failure Gastrointestinal: Yes (GASTROPARESIS; UMBILICAL HERNIA REPAIR) Abdominal Hernia, Gastroesophageal Reflux Musculoskeletal: Yes Degenerate Disk Disease, Chronic Back Pain, Fractures Endocrine: Yes Diabetes, Insulin dep HEENT: Yes (BMT'S ) Chronic Ear Infection Loss of Vision: Denies Hearing Impairment: Denies Cancer: No Psychosocial: Yes (MOOD DISORDER) Sleep Difficulties, Anxiety, Personality Disorder, Depression Integumentary: No Blood Disorders: No Adverse Reaction/Blood Tranf: No Family Medical History Cardiovascular disease 19 FATHER 19 MOTHER G8 BROTHER Diabetes mellitus 19 FATHER FH: chronic obstructive pulmonary disease G8 BROTHER Prostate cancer 19 FATHER Heart Disease, Cancer, CAD Under 55 Years Old, COPD, Diabetes, Hypertension, Lung Disease, Psychiatric Problems, Vascular Disease, Other Conditions/Hx Physical Exam Vital Signs - First Documented 06/26/19 13:55 Temp 36.9 Pulse 106 Resp 20 B/P (MAP) 138/85 (102) Pulse Ox 99 O2 Delivery Room Air Capillary Refill : Less Than 3 Seconds Height: 5'2.00" Weight: 128lbs. 1.0oz. 58.274235sr; 22.00 BMI Method:Stated General Appearance: WD/WN, no apparent distress Eyes: Bilateral Eye Normal Inspection HEENT: normal ENT inspection Neck: full range of motion, normal inspection Respiratory: decreased breath sounds Cardiovascular: regular rate, rhythm Gastrointestinal: normal bowel sounds Extremities: normal range of motion Neurologic/Psychiatric: no motor/sensory deficits, normal mood/affect Skin: normal color, warm/dry Progress/Results/Core Measures Suspected Sepsis Recent Fever Within 48 Hours: No Infection Criteria Present: None New/Unexplained Altered Menta: No Sepsis Screen: No Definite Risk SIRS Temperature: Pulse: 106 Respiratory Rate: 20 Laboratory Tests 06/26/19 16:00: White Blood Count 15.0H Blood Pressure 138 /85 Mean: 102 Laboratory Tests 06/26/19 16:00: Creatinine 2.01H, Platelet Count 324, Total Bilirubin 0.4 Results/Orders Lab Results Laboratory Tests Test 06/26/19 16:00 Range/Units White Blood Count 15.0 H 4.3-11.0 10^3/uL Red Blood Count 3.81 L 4.35-5.85 10^6/uL Hemoglobin 11.4 L 11.5-16.0 G/DL Hematocrit 33 L 35-52 % Mean Corpuscular Volume 86 80-99 FL Mean Corpuscular Hemoglobin 30 25-34 PG Mean Corpuscular Hemoglobin Concent 35 32-36 G/DL Red Cell Distribution Width 11.8 10.0-14.5 % Platelet Count 324 130-400 10^3/uL Mean Platelet Volume 10.5 H 7.4-10.4 FL Neutrophils (%) (Auto) 82 H 42-75 % Lymphocytes (%) (Auto) 12 12-44 % Monocytes (%) (Auto) 6 0-12 % Eosinophils (%) (Auto) 0 0-10 % Basophils (%) (Auto) 0 0-10 % Neutrophils # (Auto) 12.2 H 1.8-7.8 X 10^3 Lymphocytes # (Auto) 1.8 1.0-4.0 X 10^3 Monocytes # (Auto) 0.9 0.0-1.0 X 10^3 Eosinophils # (Auto) 0.0 0.0-0.3 10^3/uL Basophils # (Auto) 0.0 0.0-0.1 10^3/uL Neutrophils % (Manual) 85 % Lymphocytes % (Manual) 10 % Monocytes % (Manual) 3 % Eosinophils % (Manual) 0 % Basophils % (Manual) 0 % Band Neutrophils 1 % Reactive Lymphocytes 1 % Toxic Granulation 1+ Blood Morphology Comment NORMAL D-Dimer 2.23 H 0.00-0.49 UG/ML Sodium Level 132 L 135-145 MMOL/L Potassium Level 4.1 3.6-5.0 MMOL/L Chloride Level 96 L 98-107 MMOL/L Carbon Dioxide Level 22 21-32 MMOL/L Anion Gap 14 5-14 MMOL/L Blood Urea Nitrogen 28 H 7-18 MG/DL Creatinine 2.01 H 0.60-1.30 MG/DL Estimat Glomerular Filtration Rate 26 BUN/Creatinine Ratio 14 Glucose Level 616 *H 70-105 MG/DL Calcium Level 12.1 H 8.5-10.1 MG/DL Corrected Calcium 12.6 H 8.5-10.1 MG/DL Total Bilirubin 0.4 0.1-1.0 MG/DL Aspartate Amino Transf (AST/SGOT) 13 5-34 U/L Alanine Aminotransferase (ALT/SGPT) 16 0-55 U/L Alkaline Phosphatase 122 40-136 U/L Troponin I < 0.028 <0.028 NG/ML B-Type Natriuretic Peptide 26.4 <100.0 PG/ML Total Protein 8.4 H 6.4-8.2 GM/DL Albumin 3.4 3.2-4.5 GM/DL My Orders Orders - USHA ADDISON MD Chest 1 View, Ap/Pa Only (06/26/19 15:03) Cbc With Automated Diff (06/26/19 15:03) Comprehensive Metabolic Panel (06/26/19 15:03) Ekg Tracing (06/26/19 15:03) Troponin I (06/26/19 15:03) Fibrin Degradation Products (06/26/19 15:03) BNP (06/26/19 15:03) Albuterol/Ipra Inhalation Soln (Duoneb I (06/26/19 15:15) Ns Iv 1000 Ml (Sodium Chloride 0.9%) (06/26/19 15:15) Svn Small Volume Nebulizer (06/26/19 15:03) Manual Differential (06/26/19 16:00) Blood Culture (06/26/19 16:46) Lactic Acid Analyzer (06/26/19 16:46) Rivaroxaban Tablet (Xarelto Tablet) (06/26/19 17:00) Azithromycin Injection (Zithromax Inject (12/8/19 17:00) Insulin (Regular) Human (Humulin R (Per (06/26/19 17:00) Cefepime Injection (Maxipime Injection) (06/26/19 17:15) Medications Given in ED Current Medications Medications Dose Ordered Sig/Dianne Route Start Time Stop Time Status Last Admin Dose Admin Albuterol/ Ipratropium 3 ml ONCE ONCE INH 06/26/19 15:15 06/26/19 15:16 DC 06/26/19 15:47 3 ML Vital Signs/I&O 06/26/19 06/26/19 13:55 15:47 Temp 36.9 Pulse 106 Resp 20 B/P (MAP) 138/85 (102) Pulse Ox 99 92 O2 Delivery Room Air Room Air Capillary Refill : Less Than 3 Seconds Blood Pressure Mean: 102 POS Progress Note : Time: 17:13 Progress Note The patient's workup demonstrated a left lower lobe infiltrate. Blood cultures and lactic acid were done. The patient's glucose was greater than 600. Toprol. Station was undertaken with Dr. Watson. The patient was admitted to the ICU on a insulin drip. She was started on cefepime and azithromycin. Departure Communication (Admissions) Time/Spoke to Admitting Phy: 17:14 Dr. Watson Impression Primary Impression: Pneumonia Qualified Codes: J18.1 - Lobar pneumonia, unspecified organism Additional Impression: Hyperglycemia Disposition: ADMITTED INPATIENT Condition: Improved Admissions Decision to Admit Reason: Admit from ER (General) Decision to Admit/Date: Jun 26, 2019 Time/Decision to Admit Time: 17:16 Departure-Patient Inst. Referrals: JALEN PEREZ MD (PCP/Family) Primary Care Physician USHA ADDISON MD Jun 26, 2019 15:08 POS
[2019-06-26] MEDS ORDERED: RT-ALBUTEROL/IPRATROPIUM 3 ML (DUONEB) VIAL INH ONE (15:15)
[2019-06-26] MEDS: NS IV 1000 ML 1,000 ML IV SCH ×3 (16:02→19:00)
[2019-06-26 16:05] LABS: BASOPHILS % (AUTO) 0 % (0-10); EOSINOPHILS % (AUTO) 0 % (0-10); HEMATOCRIT 33 % (35-52); HEMOGLOBIN 11.4 G/DL (11.5-16.0); LYMPHOCYTES # (AUTO) 1.8 X 10^3 (1.0-4.0); LYMPHOCYTES % (AUTO) 12 % (12-44); MEAN CORPUSCULAR HEMOGLOBIN 30 PG (25-34); MEAN CORPUSCULAR HGB CONC 35 G/DL (32-36); MEAN CORPUSCULAR VOLUME 86 FL (80-99); MEAN PLATELET VOLUME 10.5 FL (7.4-10.4); MONOCYTES # (AUTO) 0.9 X 10^3 (0.0-1.0); MONOCYTES % (AUTO) 6 % (0-12); NEUTROPHILS # (AUTO) 12.2 X 10^3 (1.8-7.8); NEUTROPHILS % (AUTO) 82 % (42-75); PLATELET COUNT 324 10^3/uL (130-400); RED CELL DISTRIBUTION WIDTH 11.8 % (10.0-14.5)
[2019-06-26 16:25] LABS: ALANINE AMINOTRANSFERASE 16 U/L (0-55); ALBUMIN 3.4 GM/DL (3.2-4.5); ALKALINE PHOSPHATASE 122 U/L (40-136); BILIRUBIN,TOTAL 0.4 MG/DL (0.1-1.0); BUN/CREATININE RATIO 14; CALCIUM 12.1 MG/DL (8.5-10.1); CARBON DIOXIDE 22 MMOL/L (21-32); CHLORIDE 96 MMOL/L (98-107); CREATININE SERUM 2.01 MG/DL (0.60-1.30); GFR ESTIMATED 26; POTASSIUM 4.1 MMOL/L (3.6-5.0); SODIUM 132 MMOL/L (135-145); TOTAL PROTEIN 8.4 GM/DL (6.4-8.2)
[2019-06-26 16:28] LABS: GLUCOSE 616 MG/DL (70-105)
[2019-06-26 16:29] LABS: BAND NEUTROPHILS 1 %; BASOPHILS % (MANUAL) 0 %; EOSINOPHILS % (MANUAL) 0 %; LYMPHOCYTES % (MANUAL) 10 %; MONOCYTES % (MANUAL) 3 %; NEUTROPHILS % (MANUAL) 85 %
[2019-06-26 16:30] LABS: RBC MORPH NORMAL; REACTIVE LYMPHOCYTES 1 %; TOXIC GRANULATION/VACUOLAZATIO 1+
--- NOTE | 2019-06-26 16:39 | Diagnostic Imaging Report ---
INDICATION: Nonproductive cough. COMPARISON: May 22, 2019. TECHNIQUE: Single radiograph of the chest dated June 26, 2019. FINDINGS: The cardiac silhouette is within normal limits in size. No significant pulmonary vascular congestion. The right lung is clear. Minimal interstitial opacities have developed within the left lung base. No significant pleural effusion. No pneumothorax. No acute osseous abnormality. Surgical clips within the right upper quadrant of the abdomen. IMPRESSION: Development of minimal left basilar atelectasis and/or pneumonitis. Dictated by: Dictated on workstation # [id number]
[2019-06-26] MEDS ORDERED: RIVAROXABAN 20 MG TABLET (XARELTO) PO ONE (17:00)
[2019-06-26] MEDS ORDERED: CEFEPIME INJECTION 1,000 MG in WATER (STERILE) FOR INJECTION 10 ML IV ONE (17:00)
[2019-06-26] MEDS ORDERED: AZITHROMYCIN INJECTION 500 MG in NS (IVPB) 250 ML IV ONE (17:00)
[2019-06-26] MEDS ORDERED: inSUlin (REGULAR) HUMAN 1 UNIT/0.01 ML (CHARGE PER UNIT) SC ONE (17:00)
[2019-06-26] MEDS ORDERED: CEFEPIME INJECTION 2,000 MG in WATER (STERILE) FOR INJECTION 20 ML IV ONE (17:15)
--- NOTE | 2019-06-26 17:20 | NUR ---
THIS RN PULLED 20 MG PO XARELTO AT THE REQUEST OF ARIANNE CLAYTON ([employer]) AND SENT THE MEDICATION TO THE EMERGENCY DEPARTMENT. NOT DOCUMENTED BY THIS RN.
--- NOTE | 2019-06-26 17:34 | NUR ---
LAB HERE TO DRAW 2ND BLOOD CULTURE.
--- NOTE | 2019-06-26 17:36 | NUR ---
NURSE TO CALL BACK FOR REPORT WITH A PATIENT
--- NOTE | 2019-06-26 17:38 | NUR ---
DR WATSON HERE.
[2019-06-26 18:15] VITALS: BP 135/89
[2019-06-26 19:00] VITALS: BP 123/74
[2019-06-26 20:00] VITALS: BP 104/68
--- NOTE | 2019-06-26 20:18 | History & Physical-Hospitalist ---
History of Present Illness HPI/Chief Complaint Chief complaint: Cough with fever History of present illness: This is a 54-year-old white female patient of Dr. Houser at [facility] who has a past medical history of unx-[id number] diabetes and hypertension who presented to the ER with several week history of cough and started worsening today with high fever found to have sepsis and pneumonia with severe hyperglycemia classified as a hyperosmolar hyperglycemic nonketotic state condition. She will be placed on IV fluids antibiotics of cefepime and Zithromax in addition to an insulin drip and ICU admission. Currently she just is complaining of a cough and overall body pain but denies any other significant difficulties other than dyspnea. She does have a h/o PE. Creat is too high for CT angiogram so VQ scan may be needed tomorrow so will start Xarelto 20mg for coverage in meantime. Source: patient, family, RN/MD Exam Limitations: no limitations Date Seen 06/26/19 Time Seen by a Provider: 17:15 Attending Physician Roxann Fine Holly R MD Referring Physician Date of Admission Jun 26, 2019 at 17:00 Home Medications & Allergies Home Medications Reviewed patient Home Medication Reconciliation performed by pharmacy medication reconciliations commercial service technician and/or nursing. Patients Allergies have been reviewed. Allergies Allergies Coded Allergies Penicillins (Unverified Allergy, Unknown, 06/03/15) ibuprofen (Verified Allergy, Unknown, 02/18/07) peas (Verified Allergy, Unknown, 01/19/18) Past Chmbmsq-Lrclce-Jbnvyv Hx Past Med/Social Hx: Reviewed Nursing Past Med/Soc Hx, Reviewed and Corrections made Patient Social History Marrital Status: Employed/Student: unemployed Alcohol Use: Denies Use Number of Drinks Today: AA Alcohol Beverage of Choice: Beer Recreational Drug Use: No Smoking Status: Never a Smoker Type Used: Cigarettes 2nd Hand Smoke Exposure: Yes Recent Foreign Travel: No Contact w/other who traveled: No Recent Hopitalizations: No Recent Infectious Disease Expo: No Immunizations Up To Date Tetanus Booster (TDap): Unknown Seasonal Allergies Seasonal Allergies: No Past Medical History Surgeries: Abdominal, Section, Ear Surgery, Gallbladder, Orthopedic, Tubal Ligation Respiratory: Asthma, Pulmonary Embolism Currently Using CPAP: No Currently Using BIPAP: No Cardiac: Coronary Artery Disease, High Cholesterol, Hypertension Neurological: Headaches /Migraines, Neuropathy, Stroke Reproductive: No Sexually Transmitted Disease: No HIV/AIDS: No Female Reproductive Disorders: Denies Tubal Ligation, Menopausal Genitourinary: Bladder Infection, Renal Failure Gastrointestinal: Abdominal Hernia, Gastroesophageal Reflux Musculoskeletal: Degenerate Disk Disease, Chronic Back Pain, Fractures Endocrine: Diabetes, Insulin dep HEENT: Chronic Ear Infection Loss of Vision: Denies Hearing Impairment: Denies Psychosocial: Sleep Difficulties, Anxiety, Personality Disorder, Depression History of Blood Disorders: No Adverse Reaction to Blood Gloria: No Family History Cardiovascular disease 19 FATHER 19 MOTHER G8 BROTHER Diabetes mellitus 19 FATHER FH: chronic obstructive pulmonary disease G8 BROTHER Prostate cancer 19 FATHER Heart Disease, Cancer, CAD Under 55 Years Old, COPD, Diabetes, Hypertension, Lung Disease, Psychiatric Problems, Vascular Disease, Other Conditions/Hx Review of Systems Constitutional: see HPI, dizziness, fever, malaise, weakness EENTM: no symptoms reported Respiratory: cough, dyspnea on exertion, short of breath, wheezing Cardiovascular: no symptoms reported Gastrointestinal: no symptoms reported Genitourinary: no symptoms reported : No Musculoskeletal: back pain Skin: no symptoms reported Psychiatric/Neurological: Anxiety All Other Systems Reviewed Negative Unless Noted: Yes Physical Exam Physical Exam Vital Signs Vital Signs - First Documented 06/26/19 13:55 Temp 36.9 Pulse 106 Resp 20 B/P (MAP) 138/85 (102) Pulse Ox 99 O2 Delivery Room Air Capillary Refill : Less Than 3 Seconds Height, Weight, BMI Height: 5'2.00" Weight: 128lbs. 1.0oz. [id number]; 22.00 BMI Method:Stated General Appearance: Chronically ill, Moderate Distress, Thin Eyes: Right Eye Normal Inspection, Right Eye PERRL HEENT: PERRL/EOMI, Normal ENT Inspection, Pharynx Normal, Moist Mucous Membranes Neck: Full Range of Motion, Normal Inspection, Non Tender Respiratory: Chest Non Tender, Normal Breath Sounds, No Accessory Muscle Use, No Respiratory Distress, Crackles, Decreased Breath Sounds, Wheezing Cardiovascular: Regular Rate, Rhythm, No Edema, No Gallop, No JVD, No Murmur, Normal Peripheral Pulses Gastrointestinal: Normal Bowel Sounds, No Organomegaly, No Pulsatile Mass, Non Tender, Soft Back: Normal Inspection, No CVA Tenderness, No Vertebral Tenderness Extremity: Normal Capillary Refill, Normal Inspection, Normal Range of Motion, Non Tender, No Calf Tenderness, No Pedal Edema Neurologic/Psychiatric: Alert, Oriented x3, No Motor/Sensory Deficits, Normal Mood/Affect, 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 Assessment/Plan Admission Diagnosis Assessment: Sepsis PNA Severe hyperglycemia with HHNKS ARF Leukocytosis Anemia Hyponatremia Elevated d-dimer Dyspnea Plan: ABX Cefepime and Zmax to cover for PNA with allergy list to PCN IVF Insulin drip OAC due to elevated d-dimer and consider VQ scan tomorrow due to dyspnea and h/o PE in past Admission Status: Inpatient Order (span 2 midnights) Reason for Inpatient Admission: PNA with severe hyperglycemia Diagnosis/Problems Diagnosis/Problems (1) Sepsis Status: Acute (2) Pneumonia Status: Acute Qualifiers: Pneumonia type: due to unspecified organism Laterality: left Lung locat ion: lower lobe of lung Qualified Codes: J18.1 - Lobar pneumonia, unspecified organism (3) Hyperosmolar non-ketotic state in patient with type 2 diabetes mellitus Status: Acute (4) Uncontrolled hypertension Status: Acute (5) Non-compliance Status: Acute (6) Leukocytosis Status: Acute (7) Acute renal failure Status: Acute (8) Hyponatremia Status: Acute (9) Anemia Status: Acute (10) Dehydration Status: Acute (11) Volume depletion Status: Acute (12) 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
[2019-06-26] MEDS ORDERED: LOPERAMIDE 2 MG (IMODIUM) TABLET PO PRN (20:30)
[2019-06-26] MEDS ORDERED: CALCIUM CARBONATE 500 MG (TUMS) TAB.CHEW PO PRN (20:30)
[2019-06-26] MEDS ORDERED: diphenhydrAMINE 25 MG TAB (BENADRYL) PO PRN (20:30)
[2019-06-26] MEDS ORDERED: MELATONIN 3 MG TABLET PO PRN (20:30)
[2019-06-26] MEDS ORDERED: DOCUSATE SODIUM 100 MG (COLACE) CAP PO PRN (20:30)
[2019-06-26] MEDS ORDERED: fentaNYL INJECTION 100 MCG/2 ML AMP IVP PRN (20:30)
[2019-06-26] MEDS ORDERED: ALPRAZolam 0.25 MG (XANAX) TAB PO PRN (20:30)
[2019-06-26] MEDS ORDERED: ONDANSETRON 4 MG (ZOFRAN) ORAL DISSOLVE TAB PO PRN (20:30)
[2019-06-26] MEDS ORDERED: ONDANSETRON 4 MG/2 ML (SDV) Z0FRAN IVP PRN (20:30)
[2019-06-26] MEDS ORDERED: ACETAMINOPHEN 500 MG TAB (TYLENOL) PO PRN (20:30)
[2019-06-26] MEDS ORDERED: RT-ALBUTEROL/IPRATROPIUM 3 ML (DUONEB) VIAL IH PRN (20:45)
[2019-06-26 21:00] VITALS: BP 111/74
[2019-06-26 21:43] LABS: CALCIUM 11.2 MG/DL (8.5-10.1); CREATININE SERUM 1.34 MG/DL (0.60-1.30); POTASSIUM 3.3 MMOL/L (3.6-5.0)
[2019-06-26] MEDS: inSUlin ASPART (NovoLOG) 1 UNIT/0.01 ML (CHARGE PER UNIT) SC SCH (21:46)
[2019-06-26 22:00] VITALS: BP 101/68
[2019-06-26] MEDS: ENOXAPARIN 40 MG/0.4 ML (LOVENOX) SYR SC SCH (22:42)
[2019-06-26] MEDS: SENNA W/DOCUSATE (SENOKOT S) TABLET PO SCH (22:43)
[2019-06-26] MEDS: inSUlin REGULAR TPN/DRIP ONLY 250 UNITS in NORMAL SALINE 250 ML IV SCH (22:43)
[2019-06-26 23:00] VITALS: BP 100/58
[2019-06-27] VITALS (11 sets, daily range): BP systolic 94–135; BP diastolic 63–83
[2019-06-27 03:23] LABS: BASOPHILS % (AUTO) 0 % (0-10); EOSINOPHILS # (AUTO) 0.1 10^3/uL (0.0-0.3); EOSINOPHILS % (AUTO) 0 % (0-10); HEMATOCRIT 28 % (35-52); HEMOGLOBIN 9.7 G/DL (11.5-16.0); LYMPHOCYTES # (AUTO) 3.6 X 10^3 (1.0-4.0); LYMPHOCYTES % (AUTO) 20 % (12-44); MEAN CORPUSCULAR HEMOGLOBIN 30 PG (25-34); MEAN CORPUSCULAR HGB CONC 35 G/DL (32-36); MEAN CORPUSCULAR VOLUME 86 FL (80-99); MONOCYTES # (AUTO) 1.3 X 10^3 (0.0-1.0); MONOCYTES % (AUTO) 7 % (0-12); NEUTROPHILS # (AUTO) 13.4 X 10^3 (1.8-7.8); NEUTROPHILS % (AUTO) 73 % (42-75); PLATELET COUNT 294 10^3/uL (130-400); WHITE BLOOD COUNT 18.3 10^3/uL (4.3-11.0)
[2019-06-27 03:55] LABS: ALBUMIN 2.7 GM/DL (3.2-4.5); BILIRUBIN,TOTAL 0.4 MG/DL (0.1-1.0); CALCIUM 10.5 MG/DL (8.5-10.1); CREATININE SERUM 1.45 MG/DL (0.60-1.30); MAGNESIUM 1.9 MG/DL (1.6-2.4); PHOSPHORUS 1.6 MG/DL (2.3-4.7); POTASSIUM 3.3 MMOL/L (3.6-5.0); TOTAL PROTEIN 6.5 GM/DL (6.4-8.2)
[2019-06-27] MEDS ORDERED: KCL 20 MEQ TAB (K-DUR) PO ONE ×4 (04:45→09:00)
[2019-06-27] MEDS ORDERED: CEFEPIME 1,000 MG/SWFI 10 ML IV PUSH IV SCH ×2 (05:00)
[2019-06-27] MEDS: POTASSIUM CL 10MEQ/50ML IVPB 50 ML IV SCH (05:39)
[2019-06-27] MEDS: MAGNESIUM 1 GM/100 ML IVPB 100 ML IV SCH (05:39)
[2019-06-27] MEDS: KCL 20 MEQ TAB (K-DUR) PO SCH (05:40)
[2019-06-27] MEDS: inSUlin ASPART (NovoLOG) 1 UNIT/0.01 ML (CHARGE PER UNIT) SC SCH ×4 (05:40→22:08)
[2019-06-27 05:51] LABS: BILIRUBIN,URINE NEGATIVE (NEGATIVE); CLARITY,URINE CLEAR; COLOR,URINE YELLOW; GLUCOSE, URINE (UA) 2+ (NEGATIVE); KETONES,URINE NEGATIVE (NEGATIVE); LEUKOCYTE ESTERASE ,URINE NEGATIVE (NEGATIVE); NITRITE,URINE NEGATIVE (NEGATIVE); PH,URINE 6.5 (5-9); PROTEIN,URINE 3+ (NEGATIVE)
[2019-06-27 06:03] LABS: BACTERIA,URINE FEW /HPF; HYALINE CASTS, URINE 0-2 /LPF; RBC,URINE 0-2 /HPF; SQUAMOUS EPITHELIAL CELL,UR 0-2 /HPF
[2019-06-27 06:04] LABS: YEAST,URINE MODERATE /HPF
--- NOTE | 2019-06-27 06:11 | Pulmonary Consultation ---
History of Present Illness History of Present Illness Date Seen by Provider: Jun 27, 2019 Time Seen by Provider: 06:04 Date of Admission History of Present Illness History of present illness: This is a 54-year-old white female patient of Dr. Houser at [facility] who has a past medical history of wjs-vz-doxrfbf diabetes and hypertension who presented to the ER with several week history of cough and started worsening today with high fever found to have sepsis and pneumonia with severe hyperglycemia classified as a hyperosmolar hyperglycemic nonketotic state condition. She will be placed on IV fluids antibiotics of cefepime and Zithromax in addition to an insulin drip and ICU admission. Currently she just is complaining of a cough and overall body pain but denies any other significant difficulties other than dyspnea. She does have a h/o PE. Creat is too high for CT angiogram so VQ scan may be needed tomorrow so will start Xarelto 20mg for coverage in meantime. Allergies and Home Medications Allergies Coded Allergies: Penicillins (Unverified Allergy, Unknown, 06/03/15) ibuprofen (Verified Allergy, Unknown, 02/18/07) peas (Verified Allergy, Unknown, 01/19/18) Home Medications Acetaminophen 500 Mg Tablet, 1,000 MG PO Q8H PRN for PAIN-MILD, (Reported) Clopidogrel Bisulfate 75 Mg Tablet, 75 MG PO DAILY, (Reported) LAST FILLED 12-26-2018 FOR #90/90DAY SUPPLY Gabapentin 600 Mg Tablet, 600 MG PO Q8H, (Reported) Hydrocodone/Acetaminophen 1 Each Tablet, 1 TAB PO Q8H PRN for PAIN-MODERATE, (Reported) Insulin Aspart 300 Units/3 Ml Solution, 10 UNITS SC TIDWM, (Reported) Insulin Detemir 100 Unit/1 Ml Insuln.pen, 16 UNITS SC Q12H, (Reported) USES MORNING AND BEDTIME Lisinopril 20 Mg Tablet, 20 MG PO DAILY, (Reported) Metoprolol Succinate 100 Mg Tab.er.24h, 100 MG PO DAILY Prescribed by: YUMIKO WATSON on 05/23/19 1010 Past Wbmrnww-Wuqwjm-Arflvp Hx Past Med/Social Hx: Reviewed Nursing Past Med/Soc Hx, Reviewed and Corrections made Patient Social History Alcohol Use: Denies Use Number of Drinks Today: AA Alcohol Beverage of Choice: Beer Recreational Drug Use: No Smoking Status: Never a Smoker Type Used: Cigarettes 2nd Hand Smoke Exposure: Yes Recent Foreign Travel: No Contact w/Someone Who Travel: No Recent Infectious Disease Expo: No Recent Hopitalizations: No Immunizations Up To Date Tetanus Booster (TDap): Unknown Seasonal Allergies Seasonal Allergies: No Past Medical History Surgeries: Yes Abdominal, Section, Ear Surgery, Gallbladder, Orthopedic, Tubal Ligation Respiratory: Yes (PLEURAL EFFUSION--RESOLVED) Asthma Currently Using CPAP: No Currently Using BIPAP: No Cardiac: Yes Coronary Artery Disease, High Cholesterol, Hypertension Neurological: Yes (CVA 12/2012--RIGHT SIDE WEAKNESS RESOLVED. 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, Menopausal Sexually Transmitted Disease: No HIV/AIDS: No Genitourinary: Yes Bladder Infection, Renal Failure Gastrointestinal: Yes (GASTROPARESIS; UMBILICAL HERNIA REPAIR) Abdominal Hernia, Gastroesophageal Reflux Musculoskeletal: Yes Degenerate Disk Disease, Chronic Back Pain, Fractures Endocrine: Yes Diabetes, Insulin dep HEENT: Yes (BMT'S ) Chronic Ear Infection Loss of Vision: Denies Hearing Impairment: Denies Cancer: No Psychosocial: Yes (MOOD DISORDER) Sleep Difficulties, Anxiety, Personality Disorder, Depression Integumentary: No Blood Disorders: No Adverse Reaction/Blood Tranf: No Family Medical History Cardiovascular disease 19 FATHER 19 MOTHER G8 BROTHER Diabetes mellitus 19 FATHER FH: chronic obstructive pulmonary disease G8 BROTHER Prostate cancer 19 FATHER Heart Disease, Cancer, CAD Under 55 Years Old, COPD, Diabetes, Hypertension, Lung Disease, Psychiatric Problems, Vascular Disease, Other Conditions/Hx Sepsis Event Evaluation Height, Weight, BMI Height: 5'2.00" Weight: 128lbs. 1.0oz. 58.442030rt; 22.00 BMI Method:Stated Exam Exam Vital Signs Date Time Temp Pulse Resp B/P (MAP) Pulse Ox O2 Delivery O2 Flow Rate FiO2 06/27/19 04:00 Room Air 06/27/19 04:00 37.1 06/27/19 01:00 96 06/27/19 00:00 101 17 114/76 (89) 92 Room Air 06/27/19 00:00 Room Air 06/27/19 00:00 36.8 06/26/19 23:00 101 25 100/58 (72) 93 Room Air 06/26/19 22:00 109 35 101/68 (79) 94 Room Air 06/26/19 21:00 105 28 111/74 (86) 96 Room Air 06/26/19 20:00 Room Air 06/26/19 20:00 37.3 06/26/19 20:00 104 104/68 (80) 95 Room Air 06/26/19 19:00 112 15 123/74 (90) 98 Room Air 06/26/19 19:00 112 06/26/19 18:50 98 Room Air 06/26/19 18:15 110 06/26/19 18:15 110 17 135/89 (104) 98 Room Air 06/26/19 17:48 100 18 148/103 95 Room Air 06/26/19 15:47 92 Room Air 06/26/19 13:55 36.9 106 20 138/85 (102) 99 Room Air I & O 06/27/19 07:00 Intake Total 420 ml Output Total 400 ml Balance 20 ml Height & Weight Height: 5'2.00" Weight: 128lbs. 1.0oz. 58.771911hi; 22.00 BMI Method:Stated General Appearance: Chronically ill, Moderate Distress, Thin HEENT: PERRL/EOMI, Normal ENT Inspection, Pharynx Normal, Moist Mucous Membranes Neck: Full Range of Motion, Normal Inspection, Non Tender Respiratory: Chest Non Tender, Normal Breath Sounds, No Accessory Muscle Use, No Respiratory Distress, Crackles, Decreased Breath Sounds, Wheezing Cardiovascular: Regular Rate, Rhythm, No Edema, No Gallop, No JVD, No Murmur, Normal Peripheral Pulses Capillary Refill: Less Than 3 Seconds Gastrointestinal: normal bowel sounds Extremity: Normal Capillary Refill, Normal Inspection, Normal Range of Motion, Non Tender, No Calf Tenderness, No Pedal Edema Neurologic/Psychiatric: Alert, Oriented x3, No Motor/Sensory Deficits, Normal Mood/Affect, production consultant II-XII Norm as Tested Skin: Normal Color, Warm/Dry Lymphatic: No Adenopathy Results Lab Laboratory Tests 06/26/19 16:00 06/26/19 21:15 06/27/19 03:05 Assessment/Plan Assessment/Plan Pneumonia with Sepsis -Continue Cefepime, and azithromycin HHNK -D/C insulin gtt - Uncontrolled HTN Acute renal failure Hypercalcemia Dehydration PANKAJ COLLIER DO Jun 27, 2019 06:11 POS
[2019-06-27] MEDS ORDERED: POTASSIUM PHOSPHATE INJ 30 MM in NS (IVPB) 250 ML IV ONE (06:15)
--- NOTE | 2019-06-27 06:46 | Diagnostic Imaging Report ---
INDICATION: Pneumonia. COMPARISON: 06/26/2019. FINDINGS: Single view of the chest demonstrates persistent but decreasing infiltrate in left base. Right lung is clear. The heart is normal. There is no pneumothorax. Osseous structures are stable. IMPRESSION: Persistent but decreasing infiltrate left base. Dictated by: Dictated on workstation # [id number]
[2019-06-27] MEDS: SENNA W/DOCUSATE (SENOKOT S) TABLET PO SCH ×2 (08:38→19:23)
[2019-06-27] MEDS ORDERED: ROSU40TA23 PO (08:46)
[2019-06-27] MEDS ORDERED: METO10TA3 PO (08:46)
[2019-06-27] MEDS ORDERED: METO-395 PO (08:46)
--- NOTE | 2019-06-27 08:48 | NUR ---
PATIENT ASKED THAT I CALL HER . I CALLED HIM AND WENT OVER THE EXT MED HX. I NOTED THE PAST DUE FILL DATE ON THE LISINOPRIL, HE STATES SHE IS TAKING IT AND DOES NOT THINK THEY ARE OUT. SHE TAKES TYLENOL OTC NEEDED.
--- NOTE | 2019-06-27 10:56 | NUR ---
"RD ASSESSMENT PMHx: PE; CAD; HTN; hypercholesterolemia; DM(uncontrolled); GERD PT INTERACTION: Pt was semi-awake and pleasant during nutrition assessment. Pt states current appetite is poor and has been this way for some time. Note no meals have been recorded, per chart review. Pt states following a low-CHO diet at home, and has some difficulties chewing/swallowing food. Pt states recent episodes of nausea, but no episodes of emesis. Pt states no recent issues with c/d at this time, and last BM was 06/26. Note pt currently on bowel regimen of senna BID and colace PRN, per chart review. Pt states no recent wt changes. Note unable to determine recent wt hx, per chart review. Pt states current DM management as pretty good and that she keeps her glucose levels pretty normal. Note PMH of uncontrolled DM and unable to determine last HbA1c, per chart review. ABNORMAL NUTRITION-RELATED LAB VALUES LOW: K 3.3; phos 1.5; alb 2.7 HIGH: BUN 23; cr 1.45; Ca 10.5 Est. kcal needs: 8593-8267 kcal | 25-30 kcal/kg Est. Pro needs: 50-60 g Pro | 1.0-1.2 g Pro/kg PES STATEMENT: Inadequate oral intake (NI-2.1) related to loss of appetite | nausea as evidenced by pt interview INTERVENTION: Continue with current diet of Clear Liquid diet. Advance to CHO 60g/m 3snack diet, when medically able and as tolerated. Pt may benefit from nutrition supplementation if PO intake remains low. Offered dietary education on CHO counting. Pt declined at this time. Will attempt again prior to discharge. Recommend repletion of phos. Last value was 1.5. Will continue to follow and reassess as pt needs and status change. MONITOR/EVALUATE: PO Intake; Plan of Care; Hydration Status; Weight Status; Lab Values Francisco Javier Del Real, MS, RD, LD"
[2019-06-27] MEDS: NS IV 1000 ML 1,000 ML IV SCH (13:36)
[2019-06-27] MEDS: RT-ALBUTEROL/IPRATROPIUM 3 ML (DUONEB) VIAL IH SCH ×2 (14:25→19:38)
--- NOTE | 2019-06-27 14:36 | NUR ---
initial visit: The pt is Mosque and requested prayer for her health, the health of her 8 month old granddaughter Abigail fontaine, and her Fabio.
[2019-06-27] MEDS: CEFEPIME 1,000 MG/SWFI 10 ML IV PUSH IV SCH ×4 (14:46→22:08)
--- NOTE | 2019-06-27 15:20 | NUR ---
PATIENT TRANSFERRED TO 4TH FLOOR ROOM 426 AT THIS TIME WITH NO INCIDENT. PERSONAL BELONGINGS SENT WITH PATIENT. REPORT GIVEN TO ARIANNE DURHAM TO ASSUME CARE OF PATIENT. PATIENT ORIENTED TO NEW ROOM
--- NOTE | 2019-06-27 15:32 | NUR ---
REPORT RECEIVED FROM GILL TENDER ARIANNE LEIVA. PATIENT TO ROOM 433 VIA WHEELCHAIR. PATIENT SETTLED IN BED, FRESH ICE WATER GIVEN, AT BEDSIDE. PATIENT DENIES ANY FURTHER NEEDS AT THIS TIME. WILL CONTINUE TO MONITOR.
[2019-06-27] MEDS: inSUlin REGULAR TPN/DRIP ONLY 250 UNITS in NORMAL SALINE 250 ML IV SCH (16:12)
[2019-06-27] MEDS ORDERED: AZITHROMYCIN 500 MG/NS 250 ML IVPB IV SCH ×2 (17:00)
[2019-06-27] MEDS: HYDROcodone/APAP 5 MG/325 MG (LORTAB) TAB PO PRN (18:50)
[2019-06-27] MEDS: ENOXAPARIN 40 MG/0.4 ML (LOVENOX) SYR SC SCH (18:50)
--- NOTE | 2019-06-27 21:42 | Progress Note ---
Subjective Subjective/Events-last exam Patient feeling better this AM. Weak. Would like to try and eat this AM. Review of Systems Pulmonary: Dyspnea, Cough Cardiovascular: No: Chest Pain, Palpitations Gastrointestinal: Nausea; No: Vomiting, Abdominal Pain, Diarrhea, Constipation Genitourinary: No Dysuria, No Frequency, No Incontinence Neurological: Weakness, Incoordination Focused Exam Lactate Level 06/26/19 17:54: Lactic Acid Level 2.54*H 06/26/19 20:05: Lactic Acid Level 1.24 Objective Exam Last Set of Vital Signs Vital Signs Date Time Temp Pulse Resp B/P (MAP) Pulse Ox O2 Delivery O2 Flow Rate FiO2 06/27/19 20:04 38.4 06/27/19 19:52 105 20 135/80 (98) 97 Room Air Capillary Refill : Less Than 3 Seconds I&O Intake and Output 06/27/19 00:00 Intake Total 270 ml Output Total 0 ml Balance 270 ml Intake Oral 0 ml IV Total 270 ml Output Urine Total 0 ml Daily Weight Change No General: Alert, Oriented X3, Cooperative, No Acute Distress HEENT: Mucous Memb Moist/[place] Lungs: Clear to Auscultation, Normal Air Movement Heart: Regular Rate, No Murmurs Abdomen: Normal Bowel Sounds, Soft, No Tenderness, No Masses Extremities: No Edema, No Tenderness/Swelling Skin: No Rashes, No Breakdown Neuro: Normal Speech, Sensation Intact, Cranial Nerves 3-12 NL Results/Procedures Lab Laboratory Tests 06/26/19 22:40: Glucometer 107 06/26/19 23:47: Urine Color YELLOW, Urine Clarity CLEAR, Urine pH 6.5, Urine Specific [place] 1.015L, Urine Protein 3+H, Urine Glucose (UA) 2+H, Urine Ketones NEGATIVE, Urine Nitrite NEGATIVE, Urine Bilirubin NEGATIVE, Urine Urobilinogen 0.2, Urine Leukocyte Esterase NEGATIVE, Urine RBC (Auto) 1+H, Urine RBC 0-2, Urine WBC 2-5, Urine Squamous Epithelial Cells 0-2, Urine Crystals NONE, Urine Bacteria FEWH, Urine Casts PRESENT, Urine Hyaline Casts 0-2H, Urine Mucus SMALLH, Urine Yeast MODERATEH, Urine Culture Indicated YES 06/27/19 00:43: Glucometer 123H 06/27/19 03:05: White Blood Count 18.3H, Red Blood Count 3.24L, Hemoglobin 9.7L, Hematocrit 28L, Mean Corpuscular Volume 86, Mean Corpuscular Hemoglobin 30, Mean Corpuscular Hemoglobin Concent 35, Red Cell Distribution Width 12.0, Platelet Count 294, Mean Platelet Volume 10.0, Neutrophils (%) (Auto) 73, Lymphocytes (%) (Auto) 20, Monocytes (%) (Auto) 7, Eosinophils (%) (Auto) 0, Basophils (%) (Auto) 0, Neutrophils # (Auto) 13.4H, Lymphocytes # (Auto) 3.6, Monocytes # (Auto) 1.3H, Eosinophils # (Auto) 0.1, Basophils # (Auto) 0.0, Sodium Level 136, Potassium Level 3.3L, Chloride Level 107, Carbon Dioxide Level 21, Anion Gap 8, Blood Urea Nitrogen 23H, Creatinine 1.45H, Estimat Glomerular Filtration Rate 38, BUN/Creatinine Ratio 16, Glucose Level 98, Calcium Level 10.5H, Corrected Calcium 11.5H, Phosphorus Level 1.6L, Magnesium Level 1.9, Total Bilirubin 0.4, Aspartate Amino Transf (AST/SGOT) 14, Alanine Aminotransferase (ALT/SGPT) 9, Alkaline Phosphatase 94, Total Protein 6.5, Albumin 2.7L 06/27/19 11:14: Glucometer 207H 06/27/19 16:34: Glucometer 323H 06/27/19 20:58: Glucometer 207H Microbiology 06/26/19 Blood Culture - Preliminary, Resulted No growth 06/26/19 MRSA Screen - Final, Complete Assessment/Plan Assessment/Plan (1) Sepsis Status: Acute Assessment & Plan: 06/27: Continue IV antibiotics to cover for CAP Qualifiers: Qualified Codes: A41.9 - Sepsis, unspecified organism; R65.20 - Severe sepsis without septic shock; N17.9 - Acute kidney failure, unspecified (2) Hyperosmolar non-ketotic state in patient with type 2 diabetes mellitus Status: Acute Assessment & Plan: 06/27: D/c insulin gtts, start subcutaneous insulin, CLD, will advance at tolerated (3) 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 Assessment & Plan: - PT/OT (4) D-dimer, elevated Status: Acute Assessment & Plan: 06/27: Consider V/Q scan due to ARF (5) Anemia Status: Acute Assessment & Plan: - At baseline Qualifiers: Qualified Codes: D64.9 - Anemia, unspecified (6) Acute renal failure Status: Acute Assessment & Plan: 06/27: gentle IVFs, Repeat BMP in AM Qualifiers: Qualified Codes: N17.9 - Acute kidney failure, unspecified (7) DVT prophylaxis Status: Acute Assessment & Plan: - lovenox (8) Non-compliance Status: Acute Clinical Quality Measures DVT/VTE Risk/Contraindication: Risk Factor Score Per Nursin RFS Level Per Nursing on Admit: 4+=Very High JALEN PEREZ MD Jun 27, 2019 21:42 POS
[2019-06-27] MEDS ORDERED: WATER (STERILE) FOR INJECTION 10 ML ONE (22:02)
[2019-06-27] MEDS ORDERED: CEFEPIME 1 GM (MAXIPIME) VIAL ONE (22:02)
[2019-06-28] VITALS: BP 124/75
[2019-06-28 04:24] LABS: CREATININE SERUM 1.22 MG/DL (0.60-1.30); MAGNESIUM 1.6 MG/DL (1.6-2.4); PHOSPHORUS 2.7 MG/DL (2.3-4.7); POTASSIUM 3.6 MMOL/L (3.6-5.0)
[2019-06-28 04:35] VITALS: BP 125/66
[2019-06-28] MEDS: POTASSIUM CL 10MEQ/50ML IVPB 50 ML IV SCH (05:02)
[2019-06-28] MEDS: inSUlin ASPART (NovoLOG) 1 UNIT/0.01 ML (CHARGE PER UNIT) SC SCH ×4 (05:04→21:19)
[2019-06-28] MEDS: KCL 20 MEQ TAB (K-DUR) PO SCH (05:04)
[2019-06-28] MEDS: MAGNESIUM 1 GM/100 ML IVPB 100 ML IV SCH ×3 (05:06→07:08)
[2019-06-28] MEDS ORDERED: CEFEPIME 1 GM (MAXIPIME) VIAL ONE (05:06)
[2019-06-28] MEDS ORDERED: WATER (STERILE) FOR INJECTION 10 ML ONE (05:06)
[2019-06-28] MEDS ORDERED: KCL 20 MEQ TAB (K-DUR) PO ONE (05:15)
[2019-06-28] MEDS ORDERED: MAGNESIUM 1 GM/100 ML IVPB 100 ML IV ONE (05:15)
[2019-06-28] MEDS: CEFEPIME 1,000 MG/SWFI 10 ML IV PUSH IV SCH ×8 (05:17→23:46)
[2019-06-28 07:20] VITALS: BP 130/84
[2019-06-28] MEDS: RT-ALBUTEROL/IPRATROPIUM 3 ML (DUONEB) VIAL IH SCH ×4 (08:28→23:15)
[2019-06-28] MEDS ORDERED: RT-ALBUTEROL/IPRATROPIUM 3 ML (DUONEB) VIAL IH PRN (09:00)
[2019-06-28] MEDS: SENNA W/DOCUSATE (SENOKOT S) TABLET PO SCH ×2 (09:20→20:41)
[2019-06-28 11:12] VITALS: BP 93/52
--- NOTE | 2019-06-28 14:30 | NUR ---
Report given to Kelly ACUÑA.
[2019-06-28 16:26] VITALS: BP 109/59
[2019-06-28] MEDS ORDERED: AZITHROMYCIN 250 MG TAB (ZITHROMAX) PO SCH (17:00)
[2019-06-28] MEDS: HYDROcodone/APAP 5 MG/325 MG (LORTAB) TAB PO PRN (17:15)
[2019-06-28] MEDS: inSUlin REGULAR TPN/DRIP ONLY 250 UNITS in NORMAL SALINE 250 ML IV SCH (19:00)
[2019-06-28] MEDS ORDERED: fluCOnazole (DIFLUCAN) 100 MG TAB PO NR (20:00)
--- NOTE | 2019-06-28 20:06 | Progress Note ---
Subjective Subjective/Events-last exam Patient states that she is feeling better this AM. Will advance diet. She is having alot of coughing. Review of Systems Pulmonary: Dyspnea, Cough Cardiovascular: No: Chest Pain, Palpitations Gastrointestinal: No: Nausea, Vomiting, Abdominal Pain, Diarrhea, Constipation Neurological: Weakness Focused Exam Lactate Level 06/26/19 17:54: Lactic Acid Level 2.54*H 06/26/19 20:05: Lactic Acid Level 1.24 Objective Exam Last Set of Vital Signs Vital Signs Date Time Temp Pulse Resp B/P (MAP) Pulse Ox O2 Delivery O2 Flow Rate FiO2 06/28/19 16:26 37.1 123 16 109/59 (76) 97 Room Air Capillary Refill : Less Than 3 Seconds I&O Intake and Output 06/28/19 00:00 Intake Total 1450 ml Output Total 800 ml Balance 650 ml Intake Oral 1190 ml IV Total 260 ml Output Urine Total 800 ml # Voids 2 General: Alert, Oriented X3, Cooperative, No Acute Distress HEENT: Mucous Memb Moist/[place] Lungs: Clear to Auscultation, Normal Air Movement Heart: Regular Rate, No Murmurs Abdomen: Normal Bowel Sounds, Soft, No Tenderness, No Masses Extremities: No Edema, No Tenderness/Swelling Skin: No Rashes, No Breakdown Neuro: Normal Speech, Sensation Intact, Cranial Nerves 3-12 NL Results/Procedures Lab Laboratory Tests 06/27/19 20:58: Glucometer 207H 06/28/19 03:55: Sodium Level 135, Potassium Level 3.6, Chloride Level 107, Carbon Dioxide Level 18L, Anion Gap 10, Blood Urea Nitrogen 17, Creatinine 1.22, Estimat Glomerular Filtration Rate 46, BUN/Creatinine Ratio 14, Glucose Level 131H, Calcium Level 10.0, Phosphorus Level 2.7, Magnesium Level 1.6 06/28/19 11:09: Glucometer 363H 06/28/19 15:42: Glucometer 342H Microbiology 06/26/19 Blood Culture - Preliminary, Resulted No growth 06/26/19 MRSA Screen - Final, Complete 06/26/19 Urine Culture - Final, Complete YEAST Assessment/Plan Assessment/Plan (1) Sepsis Status: Acute Assessment & Plan: 06/27: Continue IV antibiotics to cover for CAP 06/28: HDS, continue IV antibiotics D3 Qualifiers: Qualified Codes: A41.9 - Sepsis, unspecified organism; R65.20 - Severe sepsis without septic shock; N17.9 - Acute kidney failure, unspecified (2) Pneumonia Status: Acute Assessment & Plan: 06/28: Continue antibiotics, Will start cough medication Qualifiers: Qualified Codes: J18.1 - Lobar pneumonia, unspecified organism (3) Hyperosmolar non-ketotic state in patient with type 2 diabetes mellitus Status: Acute Assessment & Plan: 06/27: D/c insulin gtts, start subcutaneous insulin, CLD, wi ll advance at tolerated 06/28: blood sugars not at goal, will advance diet and restart home insulin (4) 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 Assessment & Plan: - PT/OT (5) D-dimer, elevated Status: Acute Assessment & Plan: 06/27: Consider V/Q scan due to ARF (6) Anemia Status: Acute Assessment & Plan: - At baseline Qualifiers: Qualified Codes: D64.9 - Anemia, unspecified (7) Acute renal failure Status: Resolved Assessment & Plan: 06/27: gentle IVFs, Repeat BMP in AM Qualifiers: Qualified Codes: N17.9 - Acute kidney failure, unspecified (8) DVT prophylaxis Status: Acute Assessment & Plan: - lovenox (9) Non-compliance Status: Acute Clinical Quality Measures DVT/VTE Risk/Contraindication: Risk Factor Score Per Nursin RFS Level Per Nursing on Admit: 4+=Very High JALEN PEREZ MD Jun 28, 2019 20:06 POS
[2019-06-28] MEDS: NS IV 1000 ML 1,000 ML IV SCH (20:39)
[2019-06-28] MEDS: BENZONATATE 100 MG (TESSALON) CAPSULE PO SCH (20:40)
[2019-06-28] MEDS: ENOXAPARIN 40 MG/0.4 ML (LOVENOX) SYR SC SCH (20:41)
[2019-06-28 20:56] VITALS: BP 134/77
[2019-06-29 00:25] VITALS: BP 120/70
[2019-06-29 04:45] VITALS: BP 143/92
[2019-06-29 04:46] LABS: CALCIUM 9.9 MG/DL (8.5-10.1); CREATININE SERUM 1.6 MG/DL (0.60-1.30); MAGNESIUM 1.9 MG/DL (1.6-2.4); PHOSPHORUS 2.3 MG/DL (2.3-4.7); POTASSIUM 4.2 MMOL/L (3.6-5.0)
[2019-06-29] MEDS: KCL 20 MEQ TAB (K-DUR) PO SCH (05:22)
[2019-06-29] MEDS: inSUlin ASPART (NovoLOG) 1 UNIT/0.01 ML (CHARGE PER UNIT) SC SCH ×2 (05:22→12:53)
[2019-06-29] MEDS: NS IV 1000 ML 1,000 ML IV SCH (06:17)
[2019-06-29] MEDS: CEFEPIME 1,000 MG/SWFI 10 ML IV PUSH IV SCH ×2 (06:24)
[2019-06-29 08:00] VITALS: BP 138/87
[2019-06-29] MEDS: RT-ALBUTEROL/IPRATROPIUM 3 ML (DUONEB) VIAL IH SCH ×2 (08:18→11:41)
[2019-06-29] MEDS: SENNA W/DOCUSATE (SENOKOT S) TABLET PO SCH (10:59)
[2019-06-29] MEDS: BENZONATATE 100 MG (TESSALON) CAPSULE PO SCH ×2 (10:59→12:55)
--- NOTE | 2019-06-29 11:33 | Physician Query Clarification ---
PQ-Further Specificity Admission/Discharge Admission Date: Jun 26, 2019 at 17:00 Discharge Date: The medical record reflects the following clinical scenario: History/Risk Factors: Sepsis Acute Renal Failure Dehydration Clinical Findings:On admission: Creatinine 2.01, BUN 28, eGFR 26, Lactic acid 2.54. Treatment: IV Sodium Chloride 1,000ml @ 100 mls/hr .Q10H IV. Question: Can you further specify Acute Renal Failure per the clinical indicators above? Please document a response in the Progress Notes or Discharge Summary. 1. Acute renal failure due to sepsis. 2. Acute renal failure not related to sepsis. 3. Other, with explanation of the clinical findings. 4. Clinically undetermined, no explanation for the clinical findings. PHYSICIAN RESPONSE Can you specify per above: 1 Please remember a lack of response to the above will prompt a phone page by CDI/Coding staff. In responding to this query, please exercise your independent professional judgment. The purpose of this communication is to more accurately reflect the complexity of your patients condition. The fact that a question is asked does not imply that any particular answer is desired or expected. Thank you for your timely response to this clarification. Requestors name: Mel Erazo [facility] Phone # ext [phone] or [phone] THIS PHYSICIAN QUERY FORM IS A PERMANENT PART OF THE MEDICAL RECORD MEL ERAZO Jun 29, 2019 11:33 YUMIKO BARRETT DO Jun 29, 2019 20:43 POS
[2019-06-29 12:00] VITALS: BP 108/74
[2019-06-29 13:12] LABS: CALCIUM 9.9 MG/DL (8.5-10.1); CREATININE SERUM 1.54 MG/DL (0.60-1.30); POTASSIUM 4.2 MMOL/L (3.6-5.0)
[2019-06-29] MEDS: HYDROcodone/APAP 5 MG/325 MG (LORTAB) TAB PO PRN (14:27)
--- NOTE | 2019-06-29 14:57 | Discharge Summary ---
Diagnosis/Chief Complaint Date of Admission Jun 26, 2019 at 17:00 Date of Discharge 06/29/19 Admission Diagnosis Admission Diagnosis See problem list Discharge Diagnosis See below Problems/Diagnosis: (1) Sepsis Assessment & Plan: 06/27: Continue IV antibiotics to cover for CAP 06/28: HDS, continue IV antibiotics D3 06/29: Patient sent home to compete PO antibiotics Qualifiers: Qualified Codes: A41.9 - Sepsis, unspecified organism; R65.20 - Severe sepsis without septic shock; N17.9 - Acute kidney failure, unspecified Status: Acute (2) Pneumonia Assessment & Plan: 06/28: Continue antibiotics, Will start cough medication Qualifiers: Qualified Codes: J18.1 - Lobar pneumonia, unspecified organism Status: Acute (3) Hyperosmolar non-ketotic state in patient with type 2 diabetes mellitus Assessment & Plan: 06/27: D/c insulin gtts, start subcutaneous insulin, CLD, will advance at tolerated 06/28: blood sugars not at goal, will advance diet and restart home insulin Status: Acute (4) 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 Assessment & Plan: - PT/OT Status: Chronic (5) D-dimer, elevated Assessment & Plan: 06/27: Consider V/Q scan due to ARF Status: Acute (6) Anemia Assessment & Plan: - At baseline Qualifiers: Qualified Codes: D64.9 - Anemia, unspecified Status: Acute (7) Acute renal failure Assessment & Plan: 06/27: gentle IVFs, Repeat BMP in AM 06/29: Patient encouraged to push PO hydration Qualifiers: Qualified Codes: N17.9 - Acute kidney failure, unspecified Status: Resolved Resolution Date/Time: 06/28/19 @ 20:05 (8) DVT prophylaxis Assessment & Plan: - lovenox Status: Acute (9) Non-compliance Status: Acute Discharge Summary-Simple/Stand Consultations Discharge Physical Examination Allergies: Coded Allergies: Penicillins (Unverified Allergy, Unknown, 06/03/15) ibuprofen (Verified Allergy, Unknown, 02/18/07) peas (Verified Allergy, Unknown, 01/19/18) Vitals & I&Os Vital Sign - Last 12Hours Date Time Temp Pulse Resp B/P (MAP) Pulse Ox O2 Delivery O2 Flow Rate FiO2 06/29/19 12:00 36.4 112 20 108/74 (85) 100 Room Air Intake and Output 06/29/19 00:00 Intake Total 2260 ml Balance 2260 ml General Appearance: Alert, Oriented X3, Cooperative HEENT: Mucous Memb Moist/[place] Respiratory: Clear to Auscultation, Normal Air Movement Cardiovascular: Regular Rate, No Murmurs Abdominal: Normal Bowel Sounds, Soft, No Tenderness, No Masses Extremities: No Edema, No Tenderness/Swelling Skin: No Rashes, No Breakdown Neuro: Strength at 5/5 X4 Ext, Sensation Intact, Cranial Nerves 3-12 NL Psych/Mental Status: Mental Status NL, Mood NL Hospital Course Was the Problem List Reviewed?: Yes See final discharge diagnosis. Discussion & Recommendations 54 yo F that presented with increase shortness of breath and found to have PNA. She was started in IV antibiotics and will go home to complete 7 day course of PO. She was also found to have hyperosmolar hyperglycemia and started on insulin gtts she was then transitioned to subcutaneous insulin. Acute kidney injury resolved with IVFs. Will have close f.u with [facility]. Discharge Condition at discharge stable Instructions to patient/family Please see electronic discharge instructions given to patient. Discharge Medications Reviewed and agree with Discharge Medication list on patient's Discharge Inst ruction sheet Clinical Quality Measures DVT/VTE Risk/Contraindication: Risk Factor Score Per Nursin RFS Level Per Nursing on Admit: 4+=Very High Copy Copies To 1: JALEN PEREZ MD, HOLLY R MD Jun 29, 2019 14:57 POS
[2019-06-29] MEDS ORDERED: AZIT250T12 PO (15:02)
[2019-06-29] MEDS ORDERED: CEFD300C3 PO (15:02)
--- NOTE | 2019-06-29 15:04 | Discharge Instructions ---
Discharge [facility] Reconcile Patient Problems Problems Reviewed?: Yes Discharge Medications New Medications: Cefdinir (Cefdinir) 300 Mg Capsule 300 MG PO BID, #10 CAP Azithromycin (Azithromycin) 250 Mg Tablet 500 MG PO DAILY@1700, #3 TAB Continued Medications: Acetaminophen (Acetaminophen) 500 Mg Tablet 1000 MG PO Q8H PRN for PAIN-MILD, TAB Clopidogrel Bisulfate (Clopidogrel) 75 Mg Tablet 75 MG PO DAILY, TAB Gabapentin (Gabapentin) 600 Mg Tablet 600 MG PO Q8H, TAB Hydrocodone/Acetaminophen (Hydrocodon-Acetaminophn 10-325) 1 Each Tablet 1 TAB PO Q8H PRN for PAIN-MODERATE Insulin Aspart (Novolog Flexpen) 300 Units/3 Ml Solution 10 UNITS SC TIDWM, EA Insulin Detemir (Levemir Flextouch) 100 Unit/1 Ml Insuln.pen 16 UNITS SC BID, EA Metoprolol Succinate (Metoprolol Succinate) 100 Mg Tab.er.24h 100 MG PO DAILY, TAB Rosuvastatin Calcium (Rosuvastatin Calcium) 40 Mg Tablet 40 MG PO DAILY, TAB Discontinued Medications: Lisinopril (Lisinopril) 20 Mg Tablet 20 MG PO DAILY, TAB LAST FILLED #90 7-24-19 Metoclopramide HCl (Metoclopramide HCl) 10 Mg Tablet 10 MG PO QID PRN for STOMACH UPSET, TAB Patient Instructions Goal/Follow Up Appt: You have a f.u appt with Erum Su (Dr Houser's [facility]OSP[facility] AIDE) on Jul 05 @11AM Patient Instructions: - Make sure you complete your antibiotics - Keep track of your blood sugars and bring log to your appt Activity & Diet Discharge Diet: ADA Diet Activity as Tolerated: Yes Orders-Post D/C & Referrals Pneu Vac Indicated: Yes Copy Copies To 1: JALEN HOUSER MD, HOLLY R MD Jun 29, 2019 15:04 POS
== END 2019-06-29 15:47 | disposition home or self-care (01) | DRG 871 ==
LOC: EDUNIT# 13:38 → ER 13:39 → ICU 17:00 → 4TH 06-27 15:27
PROVIDERS: ADMIT Internal Medicine; ATTEND Internal Medicine
DX: A41.9 Sepsis, unspecified organism (principal); J18.1 Lobar pneumonia, unspecified organism; E11.00 Type 2 diabetes mellitus with hyperosmolarity without nonketotic hyperglycemic-hyperosmolar coma (NKHHC); N17.9 Acute kidney failure, unspecified; E87.1 Hypo-osmolality and hyponatremia; E87.2 Acidosis; R65.20 Severe sepsis without septic shock; E11.40 Type 2 diabetes mellitus with diabetic neuropathy, unspecified; E11.43 Type 2 diabetes mellitus with diabetic autonomic (poly)neuropathy; I25.10 Atherosclerotic heart disease of native coronary artery without angina pectoris; I10 Essential (primary) hypertension; J45.909 Unspecified asthma, uncomplicated; E78.00 Pure hypercholesterolemia, unspecified; D64.9 Anemia, unspecified; E86.0 Dehydration; I69.393 Ataxia following cerebral infarction; G47.9 Sleep disorder, unspecified; F60.9 Personality disorder, unspecified; F41.9 Anxiety disorder, unspecified; F32.9 Major depressive disorder, single episode, unspecified; K21.9 Gastro-esophageal reflux disease without esophagitis; M54.9 Dorsalgia, unspecified; G43.909 Migraine, unspecified, not intractable, without status migrainosus; E83.52 Hypercalcemia; R79.1 Abnormal coagulation profile; Z91.19 Patient's noncompliance with other medical treatment and regimen; Z79.4 Long term (current) use of insulin; Z86.711 Personal history of pulmonary embolism
CPT/HCPCS: 36415; 71045; 80048; 80053; 81000; 82962; 83605; 83735; 83880; 84100; 84484; 85007; 85025; 85027; 85379; 87040; 87081; 87088; 93005; 94640; 94760

== ENCOUNTER 2019-10-07 12:11 | Emergency (ER) | payer MEDICARE ==
[~2019-10-07] VITALS: Ht 157.5 cm; Wt 59.1 kg
[~2019-10-07 12:11] MED LIST changes: -ACET-77 PO; +ACET-78 PO; +ACHYD1T PO; +AZIT250T12 PO; -HYDR-3820 PO; -LAMO100T PO; +LAMO100T5 PO; -LISI1TAB10 PO; +LISI1TAB26 PO; -MAGN400T6 PO; +MAGN400T8 PO; -METO-395 PO; +MTP100TCR PO; -TRAM50TA2 PO; +TRM50T PO
[2019-10-07 12:25] LABS: BASOPHILS % (AUTO) 1 % (0-10); EOSINOPHILS # (AUTO) 0.1 10^3/uL (0.0-0.3); EOSINOPHILS % (AUTO) 2 % (0-10); HEMATOCRIT 40 % (35-52); LYMPHOCYTES # (AUTO) 2.5 X 10^3 (1.0-4.0); LYMPHOCYTES % (AUTO) 45 % (12-44); MEAN CORPUSCULAR HEMOGLOBIN 30 PG (25-34); MEAN CORPUSCULAR HGB CONC 35 G/DL (32-36); MEAN CORPUSCULAR VOLUME 85 FL (80-99); MEAN PLATELET VOLUME 10.2 FL (7.4-10.4); MONOCYTES # (AUTO) 0.3 X 10^3 (0.0-1.0); MONOCYTES % (AUTO) 5 % (0-12); NEUTROPHILS # (AUTO) 2.6 X 10^3 (1.8-7.8); NEUTROPHILS % (AUTO) 48 % (42-75); PLATELET COUNT 246 10^3/uL (130-400); RED CELL DISTRIBUTION WIDTH 11.7 % (10.0-14.5); WHITE BLOOD COUNT 5.5 10^3/uL (4.3-11.0)
[2019-10-07] MEDS ORDERED: ASPIRIN 81 MG CHEW (CHILDREN'S ASA) PO ONE (12:30)
[2019-10-07 12:36] LABS: INR 0.9 (0.8-1.4); PROTHROMBIN TIME PATIENT 12.3 SEC (12.2-14.7)
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
[2019-10-07 12:46] LABS: ALBUMIN 3.6 GM/DL (3.2-4.5); BILIRUBIN,TOTAL 0.5 MG/DL (0.1-1.0); CALCIUM 10.9 MG/DL (8.5-10.1); CREATININE SERUM 1.58 MG/DL (0.60-1.30); MAGNESIUM 2.2 MG/DL (1.6-2.4); POTASSIUM 3.3 MMOL/L (3.6-5.0); TOTAL PROTEIN 7.7 GM/DL (6.4-8.2)
[2019-10-07] MEDS ORDERED: NS IV 1000 ML 1,000 ML IV SCH (13:03)
[2019-10-07] MEDS ORDERED: NS IV 1000 ML 1,000 ML ONE (13:04)
--- NOTE | 2019-10-07 13:07 | Diagnostic Imaging Report ---
INDICATION: Chest pain. TECHNIQUE: Single frontal view of the chest. COMPARISON: 06/27/2019 FINDINGS: The lung volumes are normal. No focal consolidation is seen. No large pleural effusion or pneumothorax is seen. The cardiomediastinal silhouette is normal in size and contour. No acute osseous abnormality is seen. IMPRESSION: No acute pulmonary abnormality seen. Dictated by: Dictated on workstation # [id number]
[2019-10-07 13:12] LABS: BILIRUBIN,URINE NEGATIVE (NEGATIVE); CLARITY,URINE CLEAR; COLOR,URINE YELLOW; GLUCOSE, URINE (UA) 2+ (NEGATIVE); KETONES,URINE NEGATIVE (NEGATIVE); LEUKOCYTE ESTERASE ,URINE NEGATIVE (NEGATIVE); NITRITE,URINE NEGATIVE (NEGATIVE); PROTEIN,URINE 3+ (NEGATIVE)
[2019-10-07 13:30] LABS: BACTERIA,URINE TRACE /HPF; RBC,URINE 0-2 /HPF; WBC,URINE RARE /HPF
[2019-10-07 13:40] VITALS: BP 150/98
--- OUTSIDE RECORDS SUMMARY | 2019-10-07 16:21 | XMS REPORT ---
Author Author Joaquina PEREZ [facility] Address [address] [place] [address] Care Team Providers Care Copy Writer Name Role Phone JALEN PEREZ Unavailable PROBLEMS Type Condition ICD9-CM Code UEF27-DU Code Onset Dates Condition S tatus SNOMED Code Problem Degenerative disc disease, lumbar M51.36 Active 61879983 Problem Chronic pain G89.29 Active 4921672 1 Problem CAD (coronary artery disease) I25.10 Active 25802744 Problem HTN (hypertension) I10 Active 3 5685031 Problem Type 2 diabetes mellitus with hyperglycemia E11.65 Active [id number] Problem Post-traumatic stress disorder F43.10 Active 23161780 Problem Major depressive disorder, recurrent episode, moderate F33.1 Active 403643359 Problem Obsessive-compulsive disorder, unspecified type F4 2.9 Active 047739637 Problem Type 2 diabetes mellitus with other diabetic kid allen complication E11.29 Active 04891897 Problem History of pulmonary embolism Z86.711 Active 341530324 Problem Falls frequently R29.6 Active 279 699764 Problem Decreased dexterity R27.8 Active 408558421 Problem Type 2 diabetes mellitus with other diab etic neurological complication E11.49 Active 04864428 Problem Insomnia G47.00 Active 443739279 Problem Uncontrolled hypertension I10 Acti ve 12667555 Problem senior care current use of insulin Z79.4 Active 197944053 Problem Hyperlipidemia E78.5 Active 63072 004 Problem Ataxia R27.0 Active 05570628 Problem Memory changes R41.3 Active 38625 7006 Problem Seasonal allergies J30.2 Active 4 98173153 Problem Type 2 diabetes mellitus wit h moderate nonproliferative diabetic retinopathy without macular edema, bilateral E11.3393 Active 74213559 ALLERGIES No Information ENCOUNTERS Encounter Location Date Diagnosis [facility] [address] [id number] [place] [address] Sep, [place] [address] [place] [id number] Sep, [place] [address] [address] [place] [address] Sep, [place] [address] [place] [id number] Aug, Chronic pain G89.29 ; Falls frequently R 29.6 ; Decreased dexterity R27.8 ; Type 2 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 E11.49 and 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 [place] [address] [address] 05 Aug, 2019 Type 2 diabetes mellitus with other diab etic neurological complication E11.49 and Major depressive disorder, recurrent episode, moderate F33.[address] [address] 05 Aug, 2019 Post-traumatic stress disorder F43.10 an d Major depressive disorder, recurrent episode, moderate F33.[address] [address] Jul, History of CVA (cerebrovascular accident ) Z86.[address] [address] Jul, Diabetes E11.[address] [address] Jul, Uncontrolled hypertension I10 ; Type 2 d iabetes mellitus with hyperglycemia E11.65 ; Type 2 diabetes mellitus with other diabetic kidney complication E11.29 ; Type 2 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 E11.49 ; Falls frequently R29.6 ; senior care current use of insulin Z79.4 ; Chronic pain G89.29 ; Decreased dexterity R27.8 ; BMI 24.0-24.9, adult Z68.24 and Ataxia R27.0 [place] [address] [address] Jul, [place] [id number] Jul, [place] [address] [address] Jul, [place] [address] [address] Jun, Degenerative disc disease, lumbar M51.36 [place] [address] [address] Jun, Type 2 diabetes mellitus with hyperglyce carin E11.65 and Pneumonia due to infectious organism, unspecified laterality, unspecified part of lung J18.9 [place] [address] [address] Jun, [place] [address] [address] Jun, [place] [address] [address] Jun, [address] [address] May, Degenerative disc disease, lumbar M51.36 [place] [address] [address] May, Type 2 diabetes mellitus with hyperglyce carin E11.65 ; Major depressive disorder, recurrent episode, moderate F33.1 ; Type 2 diabetes mellitus with other diabetic kidney complication E11.29 ; Type 2 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 E11.49 ; Type 2 diabetes mellitus with moderate nonproliferative diabetic retinopathy without macular edema, bilateral E11.3393 ; Decreased dexterity R27.8 ; senior care current use of insulin Z79.4 ; BMI 24.0-24.9, adult Z68.24 and Falls frequently R29.[address] [address] May, [address] [address] Apr, Degenerative disc disease, lumbar M51.36 [place] [address] [address] Apr, Degenerative disc disease, lumbar M51.36 [facility] [address] [address] Mar, Degenerative disc disease, lumbar M51.36 [facility] [address] [address] Mar, [place] [address] [address] Feb, Degenerative disc disease, lumbar M51.36 [place] [address] [address] Feb, [place] [address] [address] Feb, Degenerative disc disease, lumbar M51.36 [place] [address] [address] Jan, [place] [address] [address] Jan, Type 2 diabetes mellitus with other diab etic kidney complication E11.29 ; Type 2 diabetes mellitus with hyperglycemia E11.65 ; Type 2 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 E11.49 ; Type 2 diabetes mellitus with moderate nonproliferative diabetic retinopathy without macular edema, bilateral E11.3393 ; senior care current use of insulin Z79.4 ; HTN (hypertension) I10 and Hyperlipidemia E78.5 [place] [address] [address] Jan, Degenerative disc disease, lumbar M51.36 [place] [address] [address] Dec, [address] [address] Dec, Diabetes E11.9 [place] [address] [address] Dec, Type 2 diabetes mellitus with hyperglyce carin E11.65 ; Chronic pain G89.29 ; Other specified dermatoses L98.8 ; Seasonal allergies J30.2 ; HTN (hypertension) I10 ; History of pulmonary embolism Z86.711 and senior care current use of insulin Z79.4 [place] [address] [address] Dec, Degenerative disc disease, lumbar M51.36 [place] [address] [address] November, Diabetes E11.9 ; Hyperlipidemia E78.5 an d Other irritable bowel syndrome K58.8 [place] [address] [address] November, [place] [address] [address] November, Degenerative disc disease, lumbar M51.36 [place] [address] [address] Oct, [place] [address] [address] Oct, Degenerative disc disease, lumbar M51.36 [place] [address] [address] Sep, [place] [address] [address] Sep, Degenerative disc disease, lumbar M51.36 [place] [address] [address] Aug, Diabetes E11.9 [place] [address] [address] Aug, Degenerative disc disease, lumbar M51.36 [place] [address] [address] Aug, [place] [address] [address] Aug, Type 2 diabetes mellitus with hyperglyce carin E11.65 ; HTN (hypertension) I10 ; Hyperlipidemia E78.5 ; Type 2 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 E11.49 and Memory changes R41.3 [place] [address] [place] [id number] Jul, [place] [address] [place] [id number] Jul, Degenerative disc disease, lumbar M51.36 [place] [address] [place] [id number] Jul, [place] [address] [place] [address] Jul, Major depressive disorder, recurrent epi sode, moderate F33.1 ; Post- traumatic stress disorder F43.10 and Obsessive-compulsive disorder, unspecified type F42.9 [place] [address] [address] Jun, Degenerative disc disease, lumbar M51.36 [place] [address] [address] Jun, Major depressive disorder, recurrent epi sode, moderate F33.1 ; Post- traumatic stress disorder F43.10 and Obsessive-compulsive disorder, unspecified type F42.9 [place] [address] [address] Jun, Major depressive disorder, recurrent epi sode, moderate F33.1 ; Post- traumatic stress disorder F43.10 and Obsessive-compulsive disorder, unspecified type F42.9 [place] [address] [address] Jun, Major depressive disorder, recurrent epi sode, moderate F33.1 and Post- traumatic stress disorder F43.10 [place] [address] [address] May, Degenerative disc disease, lumbar M51.36 [place] [address] [address] May, [place] [address] [address] May, Fatigue, unspecified type R53.83 ; Type 2 diabetes mellitus with hyperglycemia E11.65 ; Encounter for immunization Z23 ; Type 2 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 E11.49 ; Type 2 diabetes mellitus with other diabetic kidney complication E11.29 ; 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 and Falls frequently R29.6 [place] [address] [address] May, Type 2 diabetes mellitus with hyperglyce carin E11.65 [place] [address] [address] May, [place] [address] [address] Apr, Degenerative disc disease, lumbar M51.36 ; Chronic pain G89.29 ; Falls frequently R29.6 ; Type 2 diabetes mellitus with hyperglycemia E11.65 and Type 2 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 E11.49 [place] [address] [address] Apr, [place] [address] [address] Apr, Major depressive disorder, recurrent epi sode, moderate F33.1 and Post- traumatic stress disorder F43.10 [place] [address] [address] Apr, [place] [address] [address] Apr, Post-traumatic stress disorder F43.10 ; Diabetes E11.9 ; Hyperlipidemia E78.5 ; Major depressive disorder, recurrent episode, moderate F33.1 ; Other irritable bowel syndrome K58.8 and Chronic pain G89.29 [place] [address] [address] Mar, Chronic pain G89.29 [place] [address] [address] Feb, Type 2 diabetes mellitus with other diab etic neurological complication E11.49 ; Type 2 diabetes mellitus with other diabetic kidney complication E11.29 ; Degenerative disc disease, lumbar M51.36 and Chronic pain G89.29 [place] [address] [address] Jan, [facility] [address] [address] Jan, [facility] [address] [address] Jan, [facility] [address] [address] Jan, [facility] [address] [address] Jan, [place] [address] [address] Jan, [place] [address] [address] Jan, Slurred speech R47.81 ; Ataxia R27.0 ; L eft arm weakness R29.898 ; Type 2 diabetes mellitus with hyperglycemia E11.65 and Type 2 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 E11.49 [place] [address] [address] Jan, [place] [address] [address] Jan, Type 2 diabetes mellitus with hyperglyce carin E11.65 and Intractable vomiting with nausea, unspecified vomiting type R11.2 [place] [address] [address] Dec, CAD (coronary artery disease) I25.10 and Atypical chest pain R07.89 [place] [address] [address] Dec, [address] [address] Dec, Diabetes E11.9 ; Type 2 diabetes mellitu s with hyperglycemia E11.65 and Intractable vomiting with nausea, unspecified vomiting type R11.2 [place] [address] [address] Dec, Chronic pain G89.29 [place] [address] [address] November, [place] [address] [address] November, Diabetes E11.9 ; CAD (coronary artery di sease) I25.10 ; Atypical chest pain R07.89 ; Type 2 diabetes mellitus with hyperglycemia E11.65 ; Type 2 diabetes mellitus with other diabetic kidney complication E11.29 ; senior care current use of insulin Z79.4 and Chronic pain G89.29 [place] [address] [address] Oct, [place] [address] [address] Oct, Chronic pain G89.29 [place] [address] [address] Sep, Diabetes E11.9 [place] [address] [address] Sep, Chronic pain G89.29 [place] [address] [address] Sep, [place] [address] [address] Sep, Falls frequently R29.6 ; senior care curre nt use of insulin Z79.4 and Type 2 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 E11.49 [place] [address] [address] Sep, [place] [address] [address] Sep, Diabetes E11.9 [place] [address] [address] Aug, [facility] [address] [address] Aug, Chronic pain G89.29 [facility] [address] [address] Aug, [facility] [address] [address] Aug, Chronic pain G89.29 [place] [address] [address] Jul, [place] [address] [address] Jul, Diabetes E11.9 and Type 2 diabetes melli tus with other diabetic kidney complication E11.29 [place] [address] [address] Jul, Type 2 diabetes mellitus with other diab etic kidney complication E11.29 [place] [address] [address] Jul, [place] [address] [address] Jul, Chronic pain G89.29 [place] [address] [address] Jun, Diabetes E11.9 [place] [address] [address] Jun, Chronic pain G89.29 [place] [address] [address] Jun, Diabetes E11.9 ; Atypical chest pain R07 .89 ; 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 ; Type 2 diabetes mellitus with other diabetic kidney complication E11.29 ; Type 2 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 E11.49 ; History of pulmonary embolism Z86.711 and History of CVA (cerebrovascular accident) Z86.73 [place] [address] [address] May, [place] [address] [address] May, Chronic pain G89.29 [place] [address] [address] Apr, Chronic pain G89.29 [facility] [address] [address] Apr, [place] [address] [address] 29 Mar, 2017 Chronic pain G89.29 [place] [address] [address] 18 Mar, 2017 Diabetes E11.9 [place] [address] [address] 07 Mar, 2017 [place] [address] [address] Mar, Degenerative disc disease, lumbar M51.36 [place] [address] [address] Feb, Diabetes E11.9 [place] [address] [address] 23 Feb, 2017 Diabetes E11.9 [place] [address] [address] 16 Feb, 2017 Diabetes E11.9 ; HTN (hypertension) I10 ; Diabetic neuropathy E11.40 and Leg cramps R25.2 [place] [address] [address] 15 Feb, 2017 Sprain of calcaneofibular ligament of ri ght ankle, subsequent encounter S93.411D ; Major depressive disorder, recurrent episode, moderate F33.1 ; Diabetes E11.9 ; Hyperlipidemia E78.5 ; Post-traumatic stress disorder F43.10 and Other irritable bowel syndrome K58.8 [place] [address] [address] 14 Feb, 2017 Major depressive disorder, recurrent epi sode, moderate F33.1 ; Post- traumatic stress disorder F43.10 and Obsessive-compulsive disorder, unspecified type F42.9 [facility] [address] [address] Feb, [facility] [address] [address] Feb, Post-traumatic stress disorder F43.10 an d Major depressive disorder, recurrent, moderate F33.1 [facility] [address] [address] Feb, Diabetes E11.9 [facility] [address] [address] Feb, Degenerative disc disease, lumbar M51.36 [place] [address] [address] Feb, Post-traumatic stress disorder F43.10 an d Major depressive disorder, recurrent, moderate F33.1 [facility] [address] [address] Feb, [facility] [address] [address] Feb, Diabetes E11.9 [facility] [address] [address] Jan, Diabetes E11.9 [facility] [address] [address] Jan, Post-traumatic stress disorder F43.10 an d Major depressive disorder, recurrent, moderate F33.1 [facility] [address] [address] Jan, Diabetes E11.9 [facility] [address] [address] Jan, Diabetes E11.9 [facility] [address] [address] Jan, [facility] [address] [address] Jan, [place] [address] [address] Jan, Post-traumatic stress disorder F43.10 an d Major depressive disorder, recurrent, moderate F33.1 [place] [address] [address] Jan, [place] [address] [address] Jan, Major depressive disorder, recurrent epi sode, moderate F33.1 ; Post- traumatic stress disorder F43.10 and Obsessive-compulsive disorder, unspecified type F42.9 [place] [address] [address] Jan, [place] [address] [address] Jan, Diabetes E11.9 [place] [address] [address] Jan, [place] [address] [address] Jan, Sprain of calcaneofibular ligament of ri ght ankle, subsequent encounter S93.411D [place] [address] [address] Jan, Post-traumatic stress disorder F43.10 an d Major depressive disorder, recurrent, moderate F33.1 [place] [address] [address] Jan, Diabetes E11.9 [place] [address] [address] 16 Dec, 2016 Major depressive disorder, recurrent epi sode, moderate F33.1 ; Post- traumatic stress disorder F43.10 and Obsessive-compulsive disorder, unspecified type F42.9 [place] [address] [address] 15 Dec, 2016 [place] [address] [address] 14 Dec, 2016 Sprain of calcaneofibular ligament of ri ght ankle, subsequent encounter S93.411D [place] [address] [address] 13 Dec, 2016 Post-traumatic stress disorder F43.10 an d Major depressive disorder, recurrent, moderate F33.1 [place] [address] [address] 13 Dec, 2016 Sprain of calcaneofibular ligament of ri ght ankle, subsequent encounter S93.411D [place] [address] [address] 12 Dec, 2016 Hyperlipidemia E78.5 [place] [address] [address] 08 Dec, 2016 [place] [address] [address] 07 Dec, 2016 Diabetes E11.9 ; Diabetic neuropathy E11 .40 ; Degenerative disc disease, lumbar M51.36 ; Hyperlipidemia E78.5 ; Insomnia G47.00 ; CAD (coronary artery disease) I25.10 ; Major depressive disorder, recurrent, moderate F33.1 ; Post-traumatic stress disorder F43.10 and Other irritable bowel syndrome K58.8 [place] [address] [address] November, Diabetic neuropathy E11.40 and Hyperlipi demia E78.5 [place] [address] [address] November, Degenerative disc disease, lumbar M51.36 [place] [address] [address] Oct, [place] [address] [address] Oct, Degenerative disc disease, lumbar M51.36 [place] [address] [address] Sep, Degenerative disc disease, lumbar M51.36 and HTN (hypertension) I10 [place] [address] [address] Sep, Diabetic neuropathy E11.40 ; HTN (hypert ension) I10 ; Degenerative disc disease, lumbar M51.36 ; Hyperlipidemia E78.5 ; Insomnia G47.00 ; CAD (coronary artery disease) I25.10 and Diabetes E11.9 [place] [address] [address] Aug, [place] [address] [address] Aug, Type 2 diabetes mellitus with hyperglyce carin E11.65 [place] [address] [address] Aug, [place] [address] [address] Jul, [place] [address] [address] Jul, [place] [address] [address] Jun, [place] [address] [address] Jun, [place] [address] [address] Jun, [place] [address] [address] Jun, [place] [address] [address] May, Major depressive disorder, recurrent epi sode, moderate F33.1 and Post- traumatic stress disorder F43.10 [place] [address] [address] May, Major depressive disorder, recurrent epi sode, moderate F33.1 and Post- traumatic stress disorder F43.10 [place] [address] [address] May, Diabetes E11.9 ; Diabetic neuropathy E11 .40 ; HTN (hypertension) I10 ; Gastritis K29.70 ; Hyperlipidemia E78.5 ; Insomnia G47.00 and Major depressive disorder, recurrent, moderate F33.1 [place] [address] [address] May, Major depressive disorder, recurrent epi sode, moderate F33.1 [place] [address] [address] Apr, [address] [address] Apr, Major depressive disorder, recurrent epi sode, moderate F33.1 and Post- traumatic stress disorder F43.[address] [address] Apr, Diabetes E11.9 ; Diabetic neuropathy E11 .40 ; Degenerative disc disease, lumbar M51.36 ; HTN (hypertension) I10 ; Hyperlipidemia E78.5 ; Chronic pain G89.29 ; CAD (coronary artery disease) I25.10 and Major depressive disorder, recurrent, moderate F33.[address] [address] Apr, Major depressive disorder, recurrent epi sode, moderate F33.1 and Post- traumatic stress disorder F43.[address] [address] Apr, Major depressive disorder, recurrent epi sode, moderate F33.1 and Post- traumatic stress disorder F43.[address] [address] Apr, Major depressive disorder, recurrent epi sode, moderate F33.1 and Unspecified episodic mood disorder F39 [address] [address] Apr, Chronic pain G89.29 ; Diabetic neuropath y E11.40 ; HTN (hypertension) I10 ; Insomnia G47.00 ; CAD (coronary artery disease) I25.10 ; Hyperlipidemia E78.5 ; Degenerative disc disease, lumbar M51.36 ; Diabetes E11.9 and Gastritis K29.70 [place] [address] [address] Sep, [place] [address] [address] Aug, [place] [address] [address] Jul, Major depressive disorder, recurrent epi sode, moderate F33.1 [place] [address] [address] Jul, Unspecified episodic mood disorder F39 [place] [address] [address] Jul, [place] [address] [address] Jul, [place] [address] [address] Jul, [place] [address] [address] Jul, Type 2 diabetes mellitus with hyperglyce carin E11.65 ; Diabetic neuropathy E11.40 ; Degenerative disc disease, lumbar M51.36 ; HTN (hypertension) I10 ; Gastritis K29.70 ; Hyperlipidemia E78.5 and CAD (coronary artery disease) I25.10 [place] [address] [address] Jul, Severe episode of recurrent major depres sive disorder, without psychotic features F33.2 [place] [address] [address] Jul, [place] [address] [address] Jun, [place] [address] [address] Jun, Diabetes E11.9 ; Diabetic neuropathy E11 .40 ; Degenerative disc disease, lumbar M51.36 ; HTN (hypertension) I10 ; Gastritis K29.70 ; Hyperlipidemia E78.5 ; Unspecified episodic mood disorder F39 ; Depression F32.9 and CAD (coronary artery disease) I25.10 [place] [address] [address] Jun, [place] [address] [address] Jun, [address] [address] Jun, Diabetes E11.9 ; Diabetic neuropathy E11 .40 ; Degenerative disc disease, lumbar M51.36 ; HTN (hypertension) I10 ; Gastritis K29.70 ; Chronic pain G89.29 ; Insomnia G47.00 and Unspecified episodic mood disorder F39 [address] [address] May, Diabetic neuropathy E11.40 ; Degenerativ e disc disease, lumbar M51.36 ; HTN (hypertension) I10 ; Gastritis K29.70 ; Hyperlipidemia E78.5 ; Chronic pain G89.29 ; Insomnia G47.00 ; Unspecified episodic mood disorder F39 ; Diabetes E11.9 ; CAD (coronary artery disease) I25.10 and H/O Gram positive sepsis Z86.[address] [address] May, [address] [address] May, [place] [address] [address] May, [address] [address] May, [address] [address] May, UTI (urinary tract infection) N39.0 ; Di abetes E11.9 ; Diabetic neuropathy E11.40 ; Hyperlipidemia E78.5 and Chronic pain G89.[address] [place] [address] May, Insomnia, unspecified G47.00 and Chronic pain G89.29 [place] [address] [address] May, [facility] [address] [address] May, [place] [address] [address] May, [place] [address] [address] Apr, Insomnia, unspecified G47.00 ; Chronic p ain G89.29 and Unspecified episodic mood disorder F39 [place] [address] [address] Apr, Unspecified episodic mood disorder F39 [place] [address] [address] Apr, Major depression F32.9 [place] [address] [address] Apr, [place] [address] [address] Apr, Diabetes E11.9 ; Diabetic neuropathy E11 .40 ; Degenerative disc disease, lumbar M51.36 ; HTN (hypertension) I10 ; Gastritis K29.70 ; Hyperlipidemia E78.5 ; Chronic pain G89.29 and Insomnia G47.00 [place] [address] [address] Mar, [place] [address] [address] Mar, [place] [address] [address] Mar, [place] [address] [address] 16 Mar, 2015 Diabetes mellitus 250.00 ; Diabetic neur opathy 250.60 ; CAD (coronary artery disease) 414.00 ; Degenerative disc disease, lumbar 722.52 ; Gastritis 535.50 and Insomnia 780.52 [facility] [address] [address] Mar, Diabetes mellitus 250.00 ; Degenerative disc disease, lumbar 722.52 ; Essential hypertension 401.9 ; Gastritis 535.50 and Chronic pain 338.29 [facility] [address] [address] Feb, [facility] [address] [address] Feb, [facility] [address] [address] Jan, [facility] [address] [address] Jan, Diabetes mellitus 250.00 ; Diabetic neur opathy 250.60 ; Degenerative disc disease, lumbar 722.52 ; CAD (coronary artery disease) 414.00 ; Essential hypertension 401.9 ; Gastritis 535.50 ; Hyperlipidemia 272.4 and Distal end of ulna fracture, closed 813.43 [place] [address] [address] Dec, Wrist pain 719.43 and Diabetes mellitus 250.00 [facility] [address] [address] May, [facility] [address] [address] Dec, [facility] [address] [address] November, [facility] [address] [address] 16 Oct, 2009 [facility] [address] [address] 17 Sep, 2009 [facility] [address] [address] Sep, [facility] [address] [place] [id number] [place] [address] 23 Jun, 2009 [facility] [address] [id number] [place] [address] Jun, [facility] [address] [id number] [place] [address] 14 Jun, 2009 [facility] [address] [id number] [place] [address] Jun, [facility] [address] [place] [id number] [place] [address] Jun, [facility] [address] [id number] [place] [address] Jun, [facility] [address] [id number] [place] [address] Jun, [facility] [address] [place] [id number] [place] [address] May, [facility] [address] [place] [id number] [place] [address] May, [facility] [address] [place] [id number] [place] [address] May, [facility] [address] [place] [id number] [place] [address] May, [facility] [address] [place] [id number] [place] [address] Apr, [facility] [address] [place] [id number] [place] [address] Apr, [facility] [address] [id number] [place] [address] Apr, [facility] [address] [place] [id number] [place] [address] 16 Mar, 2009 [facility] [address] [place] [id number] [place] [address] Dec, IMMUNIZATIONS No Known Immunizations SOCIAL HISTORY Never Assessed REASON FOR VISIT Medication Refill PLAN OF CARE VITAL SIGNS MEDICATIONS Medication Instructions Dosage Frequency Start Date End Date Duration S arabella Gabapentin 600 mg Orally 3 times a day 1 tablet 8h 30 days Active RESULTS No Results PROCEDURES No [...] to fix hole in e ar drum Hospitalization History surgeries Hospitalization History stroke 12/2012 Hospitalization History blood transfusion 2010 Hospitalization History Stroke 05/23/2015 Hospitalization History UTI/blood infection 06/03/2015 Hospitalization History UTI/low wbc count/dehydration 2014 Hospitalization History Blood clot in lung 01/2016 Hospitalization History Sepsis from UTI, uncontrolled IDDM, nv. HTN 08/18/16 Hospitalization History UTI and blood sugar was 700 05/20/19 Hospitalization History Pneumonia 06-26-19
--- OUTSIDE RECORDS SUMMARY | 2019-10-07 16:21 | XMS REPORT ---
Author Author [employer]. Organization [facility] [address] [place] [address] Care Team Providers Care Sailing Instructor Name Role Phone ANNABELLA FERNANDEZ Unavailable Unavailable TINAJERO, PATRICK Unavailable Unavailable DIXON ARECHIGA Unavailable Unavailable CLINTON PLASENCIA Unavailable Unavailable RAFAELA ARECHIGA Unavailable Unavailable TERRY STRINGER Unavailable Unavailable ИРИНА VOGT Unavailable Unavailable TINAJERO, PATRICK Unavailable PAULINO, ANIBAL Unavailable TINAJERO, PATRICK Unavailable TINAJERO, PATRICK Unavailable KLAUS MEDIAN Unavailable TINAJERO, PATRICK Unavailable TINAJERO, PATRICK Unavailable zzSANDERS, PATRICK Unavailable zzSANDERS, PATRICK Unavailable zzSANDERS, PATRICK Unavailable PAULINO, ANIBAL Unavailable zzQAMARERS, PATRICK Unavailable HARITHA GARNER Unavailable HARITHA GARNER Unavailable HARITHA GARNER Unavailable GAULT, JALEN Unavailable GAULT, JALEN Unavailable GAULT, JALEN Unavailable GAULT, JALEN Unavailable GAULT, JALEN Unavailable GAULT, JALEN Unavailable GAULT, JALEN Unavailable ALEXEI MCDONALD Unavailable GAULT, JALEN Unavailable GAULT, JALEN Unavailable GAULT, JALEN Unavailable GAULT, JALEN Unavailable GAULT, JALEN Unavailable GAULT, JALEN Unavailable GAULT, JALEN Unavailable GAULT, JALEN Unavailable GAULT, JALEN Unavailable GAULT, JALEN Unavailable GAULT, JALEN Unavailable GAULT, JALEN Unavailable GAULT, JALEN Unavailable GAULT, JALEN Unavailable GAULT, JALEN Unavailable GAULT, JALEN Unavailable GAULT, JALEN Unavailable GAULT, JALEN Unavailable GAULT, JALEN Unavailable GAULT, JALEN Unavailable GAULT, JALEN Unavailable GAULT, JALEN Unavailable GAULT, JALEN Unavailable GAULT , JALEN R Unavailable Unavailable ANA AQUINO, JALEN R Unavailable Unavailable YUSUF AQUINO, JAIME N Unavailable Unavailable YUSUF AQUINO, JAIME N Unavailable Unavailable PERKINS DO, AWA K Unavailable Unavailable PERKINS DO, AWA K Unavailable Unavailable RAFAELA ARECHIGA Unavailable GAULT, JALEN Unavailable GAULT, JALEN Unavailable RAFAELA ARECHIGA Unavailable GAULT, JALEN Unavailable GAULT, JALEN Unavailable CHAI AQUINO, CLAUDETTE Chandra Unavailable Unavailable THAO TOBAR Unavailable Unavailable LANA MARINELLI Unavailable Unavailable LOBITO AQUINO, МАРИЯ Tan Unavailable Unavailable LOBITO AQUINO, МАРИЯ Tan Unavailable Unavailable JULIEN KRAUS Unavailable AMINA ARECHIGA Unavailable JACK GARCIA Unavailable AMINA ARECHIGA Unavailable JALEN PEREZ Unavailable JOSE F DO, TANYA E Unavailable Unavailable JOSE F , TANYA E Unavailable Unavailable JACKLYN DO, ИРИНА Lester Unavailable Unavailable JALEN PEREZ Unavailable Unavailable Unavailable Unavailable AZAEL AQUINO, USHA Eden Unavailable Unavailable WATSON DO, YUMIKO Unavailable Unavailable WATSON DO, YUMIKO Unavailable Unavailable CLAUDETTE PAULA MD Unavailable Unavailable LANA MARINELLI Unavailable Unavailable PERKINS DO, AWA K Unavailable Unavailable PERKINS DO, AWA K Unavailable Unavailable ANA AQUINO, JALEN R Unavailable Unavailable JALEN PEREZ MD Unavailable Unavailable THAO TOBAR Unavailable Unavailable YUSUF AQUINO, JAIME Pink Unavailable Unavailable YUSUF AQUINO, JAIME Pink Unavailable Unavailable LOBITO AQUINO, МАРИЯ Tan Unavailable Unavailable LOBITO AQUINO, МАРИЯ Tan Unavailable Unavailable JALEN PEREZ Unavailable Allergies Normalized Allergy Reported Date of Reaction(s) Care Provider Facility Allergy Type classification allergen Allergy Onset DA (22 Unclassified peas 01-19-2018 - no information ARMÍREZ EWING [facility] Via sources.) DO JOSE F [facility] ([id number]) Medications Current Medications Medication Ingredient Drug Dose Dates Status Sig Sig Care Class(es) (Normalized) (Original) Provid er no Accu-Chek no 03-11-20 Active no no no information Deepika Plus information 17 information informa tion name (8 - (no sources.) Translation phone) s: [ Accu-Chek Deepika Plus -, Accu-Chek Deepika Plus -] 03-11-2017 Active no Accu-Shelbie no name inform k Deepika (no ation Plus - phone) subcutan eously 4 times a day to check glucose 6h Feb, Active no Accu-Chek no 03-11-20 Active no no no information Deepika Plus information 17 information informa tion name (8 w/Device (no sources.) Translation phone) s: [ Accu-Chek Deepika Plus w/Device, Accu-Chek Deepika Plus w/Device] 03-11-2017 Active no Accu-Shelbie no name inform k Deepika (no ation Plus phone) w/Device subcutan eously 4 times a day check sugars 6h Feb, Active no Accu-Chek no 03-11-20 Active no Accu-Chek no information Softclix information 17 information Softclix name (3 Lancets - Lancets - (no sources.) Translation subcutaneous phone) s: [ ly 4 times a Accu-Chek day use to Softclix check blood Lancets -, sugar 6h Accu-Chek Feb, 2017 Softclix Active Lancets -] metFORMIN metFORMIN Biguanide 1000 09-08-19 Active no Metf ormin no hydrochlori Translation mg 18 information HCl 500 m g name de 500 mg s: [ DX- E11.65 (no oral tablet Metformin at supper 2 phone) (6 HCl 500 mg, tablets 20 sources.) Metformin Aug, 2017 30 HCl 500 mg] day(s) Active ondansetron ondansetron Serotonin-3 8 mg 01-06-20 Active no Zofran 8 MG no 8 mg oral Translation Receptor 18 information Orally q6 h r name tablet (4 s: [ Zofran Antagonist PRN 1 tablet (no sources.) 8 MG, Dec, phone) Zofran 8 30 day(s) MG] Active no Pen [place] no 01-16-20 Active no Pen [place] no information 31G X 6 MM information 15 information 31G X 6 MM name (3 Translation as directed (no sources.) s: [ Pen 6h Dec, phone) [place] 31G 2015 Active X 6 MM, Pen [place] 31G X 6 MM] pioglitazon pioglitazon Peroxisome 15 mg 09-23-19 Active no Actos 15 mg no e 15 mg e Proliferato 18 information Orally Once name oral tablet Translation r Receptor a day 1 (no (6 s: [ Actos alpha tablet 24h phone) sources.) 15 mg, Agonist, Sep, Actos 15 Peroxisome 30 day(s) mg] Proliferato Active r Receptor gamma Agonist, Thiazolidin edione potassium potassium no 10 mEq Active no Potassium no chloride 10 chloride information information Chloride ER na me meq Translation 10 MEQ (no extended s: [ Orally Once phone) release Potassium a day 1 oral Chloride ER capsule with capsule (3 10 MEQ] food 24h sources.) Active Completed/Discontinued Medications Medication Ingredient Drug Dose Dates Status Sig Sig Care Class(es) (Normalized) (Original) Provid er sertraline sertraline Serotonin 25 mg Suspende no Sertraline no 25 mg oral Translation Reuptake d information HCl 25 MG name tablet (2 s: [ Inhibitor Orally Once (no sources.) Sertraline a day 1 phone) HCl 25 MG] tablet 24h 30 day(s) Not-Taking Problems Active Problems Problem Normalized Date of Normalized Normalized Provider Fac ility Classification Problem(s) Problem Problem Problem Sta tus Onset/Resoluti Duration on Other Abnormal Episodic Active YUMIKO WATSON [facility] Via screening for coagulation [facility] suspected profile Hospital - conditions [place] (not mental (87116) disorders or infectious disease) (6 sources.) Acute and Acute kidney Episodic Active МАРИЯ ROBIN [facility] Via unspecified failureMD [facility] renal failure unspecified Hospital - (15 sources.) [place] (89179) Deficiency and Anemia, Episodic Active YUMIKO WATSON [facility] Via other anemia unspecified DO [place] (6 sources.) Hospital - [place] (26974) Other nervous Anesthesia of Episodic Active JAIME GOLDBERG [facility] Via system skin , [facility] disorders (5 Hospital - sources.) [place] (32308) Other nervous Ataxia Episodic Active JALEN RISSAN[employer] Communi ty system Translations: [facility] [facility] disorders (20 [ Ataxia, - of [facility] sources.) Slurred speech [place] (79900) R47.81, - Ataxia R27.0, Ataxia] 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 [facility] V ia of following [facility] cerebrovascula cerebral Hospital - r disease (6 infarction [place] sources.) (40860) Other nervous Ataxia, Episodic Active [employer] [facility] system unspecified [address]31 [facility] disorders (20 Translations: of [place] sources[place] [ - Ataxia [place] (13890) R27.0, - Ataxia R27.0] Residual Body mass Episodic Active [employer] Community codes; index (BMI) 09083 Health Center unclassified 24.0-24.9, of [place] (2 sources.) adult [place] (45150) Translations: [ - BMI 24.0-24.9, adult Z68.24] Unclassified Chronic pain Chronic Active JALEN GAN[employer] Comm unity (20 sources.) Translations: 01999 [facility] [ Chronic of [place] pain, Chronic [place] (44980) pain] Residual Chronic pain Episodic Active JALENMario Alberto PEREZ Communi ty codes; Translations: [address] [place] [address] unclassified [ Chronic of [place] (1 source.) pain] [place] (58670) Other Cramp and Episodic Active JALEN PEREZ Community connective spasm [address] [place] [address] tissue disease Translations: of [facility] (20 sources.) [ - Leg cramps [place] (82838) R25.2, - Leg cramps R25.2] Other diseases Disorder of Episodic Active TANYA [facility] V ia of kidney and kidney and BARNIDGLisa , DO [facility] ureters (18 ureter, Hospital - sources.) unspecified [place] (46957) Spondylosis; Dorsalgia, Episodic Active JALEN PEREZ , Not Available intervertebral unspecified (50960) disc disorders; other back problems (27 sources.) Other Effusion, Episodic Active LANA [facility] Via non-traumatic right ankle GLENDA MAN joint Hospital - disorders (3 [place] sources.) (89121) Other injuries Elbow, Episodic Active CLAUDETTE ODGERS [facility] Via and conditions forearm, and , [facility] due to wrist injury Hospital - external [place] causes (4 (02921) sources.) Diseases of Elevated white Chronic Active TANYA [facility] V ia white blood blood cell JOSE F , DO [place] cells (20 count, Hospital - sources.) unspecified [place] (52474) Immunizations Encounter for Episodic Active JALEN PEREZ Co mmunity and screening immunization [address] [place] [address] for infectious Translations: of [facility] disease (7 [ - Encounter [place] (65563) sources.) for immunization Z23] Esophageal Gastro-esophag Chronic Active THAO AMADOU Not Available disorders (20 eal reflux (04086) sources.) disease without esophagitis Other Gastroparesis Episodic Active AWA PERKINS , [facility] V ia disorders of DO [place] stomach and Hospital - duodenum (5 [place] sources.) (54311) Pulmonary H/O: pulmonary Episodic Active JALEN PEREZ Commu nity heart disease embolus [address] [place] [address] (20 sources.) Translations: of [facility] [ History of [place] (21775) pulmonary embolism, History of pulmonary embolism] Headache; Headache Episodic Active THAO AMADOU [facility] Via including [place] migraine (7 Hospital - sources.) [place] (76263) Other Hypercalcemia Chronic Active TANYA [facility] Via nutritional; BARNIDGE , DO [place] endocrine; and Hospital - metabolic [place] disorders (24 (21333) sources.) Fluid and Hypo-osmolalit Episodic Active JALEN PEREZ , Not Available electrolyte y and (31146) disorders (20 hyponatremia sources.) Translations: [ DEHYDRATION, HYPOKALEMIA, ACIDOSIS, HYPOKALEMIA, HYPO-OSMOLALIT Y AND HYPONATREMIA, ACIDOSIS, DEHYDRATION] Other Hypomagnesemia Chronic Active МАРИЯ ROBIN , [facility] Via nutritional; [facility] endocrine; and Hospital - metabolic [place] disorders (4 (74329) sources.) Other Hypotension, Episodic Active AWA PERKINS , [facility] Vi a circulatory unspecified DO [place] disease (5 Hospital - sources.) [place] (47791) Residual Insomnia Episodic Active JULIEN KRAUS [facility] codes; Translations: [address] [place] [address] unclassified [ Insomnia] of [facility] (6 sources.) [place] (88018) Residual Insomnia, Episodic Active JULIEN KRAUS [facility] codes; unspecified [address] [place] [address] unclassified Translations: of [facility] (6 sources.) [ - Insomnia [place] (84508) 780.52] Pneumonia Lobar Episodic Active YUMIKO WATSON , [facility] Via (except that pneumonia, [place] caused by unspecified Hospital - tuberculosis organism [place] or [facility] Translations: (07826) transmitted [ - Pneumonia disease) (7 due to sources.) infectious organism, unspecified laterality, unspecified part of lung J18.9] Other shelter Episodic Active LANA [facility] Via aftercare (7 (current) use GLENDA MAN sources.) of aspirin [facility] (80285) Other shelter Episodic Active JALEN PEREZ [facility] aftercare (20 (current) use [address] [place] [address] Center sources.) of insulin [facility] Translations: [place] (92704) [ 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 insulin, - 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 insulin Z79.4, - shelter current use of insulin Z79.4] Unclassified Long-term no information Active JALEN PEREZ Id mmunity (20 sources.) current use of [address] [place] [address] r insulin [facility] Translations: [place] (58321) [ 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 insulin, shelter current use of insulin] Residual Memory Episodic Active JALEN PEREZ [facility] codes; impairment [address] [place] [address] unclassified Translations: of [facility] (1 source.) [ Memory [place] (19120) changes] Headache; Migraine, Chronic Active TANYA [facility] Via including unspecified, DO [place] [facility] migraine (20 not Hospital - sources.) intractable, [place] without status (55741) migrainosus Substance-rela Nicotine Chronic Active AWA PERKINS , Not A vailable krista disorders dependence, DO (00199) (21 sources.) cigarettes, uncomplicated Occlusion or Occlusion and Chronic Active JALEN GAULT , [facility] 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 (10 carotid [place] sources.) arteries (55570) Residual Other amnesia Episodic Active JALEN [facility] [facility] ity codes; Translations: [address] [place] [address] Center unclassified [ - Memory of [facility] (1 source.) changes R41.3] [place] (36764) Other nervous Other chronic Chronic Active [employer] [facility] m[facility]ity system pain [address]23 [facility] disorders (20 Translations: of [facility] sources.) [ - Chronic [place] (07742) pain 338.29, - Chronic pain 338.29] External cause Other external Episodic Active CLAUDETTE PAULA [facility] Via codes: cause status , [facility] Unspecified (1 Hospital - source.) [place] (15562) Malaise and Other fatigue Episodic Active JALEN [employer] [facility] fatigue (7 Translations: [address] [place] [address] sources.) [ - Fatigue, of [place] unspecified [place] (34229) type R53.83] Other Other Chronic Active [employer] [facility] gastrointestin irritable [address] [place] [address] al disorders bowel syndrome of [facility] (4 sources.) Translations: [place] (70551) [ - Other irritable bowel syndrome K58.8] Other nervous Other lack of Episodic Active JALEN GAULT [facility] m[facility]ity system coordination [address] [facility] disorders (3 Translations: of [facility] sources.) [ - Decreased [place] (32301) dexterity R27.8] Other upper Other seasonal Chronic Active JALEN GAULT [facility] munity respiratory allergic 70589 Health Center disease (1 rhinitis of [facility] source.) Translations: [place] (47907) [ - Seasonal allergies J30.2] Other skin Other Episodic Active [employer] Community disorders (1 specified [facility] source.) disorders of of [place] the skin and [place] (17833) subcutaneous tissue Translations: [ - Other specified dermatoses L98.8] Residual Other Episodic Active THAO TOBAR [facility] Via codes; specified [place] unclassified postprocedural Hospital - (1 source.) states [place] (13001) Other Other symptoms Episodic Active JALEN PEREZ Commu nity connective and signs 58828 [facility] tissue disease involving the of [facility] (20 sources.) musculoskeleta [place] (32233) l system Translations: [ - Left arm weakness R29.898, - Left arm weakness R29.898] External cause Overexertion Episodic Active LANA [facility] Via codes: from strenGLENDA Sheth Natural/enviro movement or Hospital - nment (1 load, initial [place] source.) encounter (91085) Residual Patient's Episodic Active AWA PERKINS , [facility] Via codes; noncompliance DO [facility] unclassified with other Hospital - (25 sources.) medical [place] treatment and (75265) regimen Residual Patient's Episodic Active МАРИЯ ROBIN , [facility] Via codes; other MD [facility] unclassified noncompliance Hospital - (14 sources.) with [place] medication (53522) regimen Translations: [ SLEEP DISORDER, UNSPECIFIED] Screening and Personal Episodic Active THAO TOBAR [facility] Vi a history of history of [facility] nicotine Hospital - and substance dependence [place] abuse codes (4 (13051) sources.) Personality Personality Chronic Active JALEN PEREZ , Not Available disorders (29 disorder, (76379) sources.) unspecified Translations: [ OTHER SPECIFIC PERSONALITY DISORDERS] Other Poor manual Episodic Active JALEN PEREZ Communit y connective dexterity 85356 [facility] Center tissue disease Translations: of [facility] (1 source.) [ Decreased [place] (38239) dexterity] Other skin Rash and other Episodic Active YUMIKO SHIRLEY , [facility] Via disorders (14 nonspecific DO [facility] sources.) skin eruption Hospital - [place] (65706) Unclassified Recurrent no information Active JALEN PEREZ Co mmunity (20 sources.) falls 48303 Health Center Translations: of [facility] [ Falls [place] (50992) frequently, [place] frequently] Other Recurrent Episodic Active JALEN PEREZ Community connective falls 50774 [facility] Center tissue disease Translations: of [place] (1 source.) [ Falls [place] (24202) frequently] Other Repeated falls Episodic Active JALEN PEREZ Commu nity connective Translations: 94394 Health Center tissue disease [ - Falls of [place] (20 sources.) frequently [place] (36417) R29.6, - Falls frequently R29.6] Other upper Seasonal Chronic Active JALEN PEREZ Community respiratory allergy 15699 Health [facility] disease (1 Translations: of [place] source.) [ Seasonal [place] (24016) allergies] Septicemia Sepsis, Episodic Active AWA PERKINS , [facility] Via (except in unspecified DO [place] labor) (20 organism Hospital - sources.) Translations: [place] [ SEVERE (67465) SEPSIS WITHOUT SEPTIC SHOCK, SEVERE SEPSIS WITHOUT SEPTIC SHOCK, SEPSIS DUE TO ESCHERICHIA COLI [E. COLI]] Shock (1 Severe sepsis Episodic Active МАРИЯ ROBIN , [facility] Via source.) with septic [facility] (92366) Residual Sleep Episodic Active JALEN GAKARTIK , Not Avail able codes; disorder, (09953) unclassified unspecified (20 sources.) Unclassified Sleep Episodic Active THAO AMADOU Not Doreen ilable (2 sources.) disorder, (50681) unspecified Translations: [ OTHER SPECIFIED POSTPROCEDURAL STATES] Other nervous Slurred speech Episodic Active JAELN PEREZ C ommunity system Translations: 43194 [facility] Center disorders (20 [ - Slurred of [place] sources.) speech R47.81, [place] (18905) - Slurred speech R47.81] Sprains and Sprain of Episodic Active LANA [facility] Via strains (3 unspecified GLENDA MAN [facility] sources.) ligament of Hospital - right ankle, [place] initial (72265) encounter Suicide and Suicidal Episodic Active JAIME YUSUF [facility] Via intentional ideations , [facility] self-inflicted Hospital - injury (5 [place] sources.) (47396) Contraceptive Tubal ligation Episodic Active THAO AMADOU [facility] Via and status [place] procreative Hospital - management (4 [place] sources.) (99897) Asthma (21 Unspecified Chronic Active JALEN GAKARTIK , Not A vailable sources.) asthma, (61091) uncomplicated External cause Unspecified Episodic Active CLAUDETTE ODPHILLIP [facility] Via codes: Fall (1 fall , [facility] source.) Hospital - [place] () Acute and Unspecified Chronic Active YUMIKO WATSON [facility] V ia unspecified kidney failure DO [place] renal failure Hospital - (14 sources.) [place] (03943) Intestinal Viral Episodic Active [facility] Via infection (18 intestinal DO [place] [facility] sources.) infection, Hospital - unspecified [place] (94396) Past or Other Problems Problem Normalized Date of Normalized Normalized Provider Fac ility Classification Problem(s) Problem Problem Problem Sta tus Onset/Resoluti Duration on External cause Other external no information no information MANUEL PAULA Not Available codes: cause status , (88953) Unspecified (3 sources.) Residual Other no information no information THAO AMADOU Not Available codes; specified (79982) unclassified postprocedural (2 sources.) states External cause Overexertion no information no information GRETC HEN Not Available codes: from strenuous GLENDA MAN (20288) Natural/enviro movement or nment (2 load, initial sources.) encounter Disorders of Pure no information no information JALEN PEREZ , Not Available lipid hypercholester () metabolism (27 olemia, sources.) unspecified Septicemia Sepsis, no information no information МАРИЯ ROBIN , Not Available (except in unspecified () labor) (12 organism sources.) Translations: [ SEPSIS DUE TO ESCHERICHIA COLI [E. COLI]] Shock (3 Severe sepsis no information no information МАРИЯ HIDALGO , Not Available sources.) with septic () shock Diabetes Type 2 no information no information TANYA [facility] Via mellitus with diabetes JOSE F , [facility] complications mellitus with Hospital - (25 sources.) diabetic [place] autonomic () (poly)neuropat hy Translations: [ TYPE 2 DIABETES MELLITUS WITH KETOACIDOS, TYPE 2 DIABETES W DIABETIC AUTONOMIC (PO] Unclassified Type 2 no information no information no name no information (6 sources.) diabetes mellitus with ketoacidosis without coma External cause Unspecified no information no information CLAUDETTE PAULA Not Available codes: Fall (3 fall , (72075) sources.) Procedures Procedure Normalized Procedure Procedure Result Performer Facility Date 01-05-2018 Collection venous no information no name (no phone) [facility] blood venipuncture Center [facility] (09263) 10-07-2017 Collection venous no information no name (no phone) [facility] blood venipuncture [facility] (80471) 01-18-2018 Gluc bld gluc mntr dev no information no name (no p ana) [facility] cleared fda spec home [facility] (26042) 01-05-2018 Gluc bld gluc mntr dev no information no name (no p ana) [facility] cleared fda spec home [facility] (66162) 05-25-2018 Hemoglobin no information no name (no phone) Comm [facility] glycosylated a1c [facility] (36613) 12-01-2017 Hemoglobin no information no name (no phone) Comm [facility] glycosylated a1c [facility] (37904) 06-04-2015 INSERTION OF INFUSION no information no name (no ph one) [facility] Via [place] DEV INTO [facility] (03962) INSERTION OF INFUSION no information no name (no phone) Not Available (13944) DEV INTO [facility] 01-05-2018 LAB NOT BILLED BY no information no name (no phone) [facility] (69693) 10-07-2017 LAB NOT BILLED BY no information no name (no phone) [facility] (75832) 05-10-2018 Psychiatric diagnostic no information no name (no p ana) [facility] evaluation [facility] ([id number]) 06-29-2018 Psychotherapy no information no name (no phone) [facility] w/patient 45 minutes [facility] (76995) 06-21-2018 Psychotherapy no information no name (no phone) [facility] w/patient 45 minutes [facility] (79558) 01-05-2018 Urnls dip stick/tablet no information no name (no p ana) [facility] [facility] rgnt auto w/o [facility] ([id number]) Immunizations Normalized Immunization Date Notes Care Provider Facili ty Immunization influenza, seasonal, 05-25-2018 no information no name [facility] injectable [facility] ([id number]) Results Test Name Value Interpretation Reference Range Date Time Fa cility (Normalized) (Normalized) (Medline Reference) glucose fingerstick (in house) on null GLUCOSE [facility] (no code) [facility] FINGERSTICK (IN Center of HOUSE) [facility] (20080) GLUCOSE [id number] (no code) [facility] FINGERSTICK (IN Center of HOUSE) [facility] (44340) GLUCOSE 06/03/2018 (no code) [facility] FINGERSTICK (IN Center of HOUSE) [facility] (78624) a1c (in house) on null Hemoglobin 12.5 % (no code) 0 - 5.7 % [facility] A1c/Hemoglobin.t [facility] fraction (Bld) (37369) Hemoglobin 14.0 % (no code) 0 - 5.7 % [facility] A1c/Hemoglobin.t [facility] fraction (Bld) (61486) A1C (IN HOUSE) 0843 (no code) [facility] (13673) A1C (IN HOUSE) (no code) [facility] (40209) A1C (IN HOUSE) 0856 (no code) [facility] (80024) A1C (IN HOUSE) 09/2019 (no code) [facility] (17417) No panel information on 2019-06-07 Exp date 06/09 (no code) [facility] (66833) HbA1c (Bld) 12.6 % (no code) 0 - 5.7 % [facility] [Mass fraction] [facility] (09975) Lot [id number] (no code) [facility] (67185) Previous A1c >14 (no code) [facility] (58213) No panel information on 2018-12-22 Albumin 3.9 g/dL (N) 3.4 - 5.4 g/dL [facility] [Mass/Vol] [facility] (25458) Albumin DL <= 20 68.3 mg/dL (N) 0.2 - 1.9 mg/dL Critical access hospital mg/L (U) [facility] [Mass/Vol] [facility] (56755) Albumin/Creatini 1178 (H) [facility] (U[facility] [Mass [facility] () Albumin/Globulin 1.2 {ratio} (N) 1 - 2.5 {ratio} Comm [facility] [Mass ratio] [facility] () ALP [Catalytic 111 U/L (N) 44 - 147 U/L [facility] Health activity/Vol] [facility] () ALT [Catalytic 16 U/L (N) 4 - 40 U/L Community ealth activity/Vol] [facility] () Amphetamines Ql no information (no code) [facility] th (U) [facility] () AST [Catalytic 18 U/L (N) 10 - 34 U/L [facility] activity/Vol] [facility] () Basophils (Bld) 0.017 10*3/uL (N) 0 - 0.3 10*3/uL [facility] Health [#/Vol] [facility] () Basophils/100 0.3 % (N) 0.5 - 1 % [facility] He alth WBC (Bld) [facility] () Benzodiazepines no information (no code) [facility] Ql (U) [facility] () Benzoylecgonine no information (no code) [facility] Ql (U) [facility] () Bilirubin 0.6 mg/dL (N) 0.1 - 1.2 mg/dL [facility] [Mass/Vol] [facility] (26333) Calcium 11.0 mg/dL (H) 8.5 - 10.2 mg/dL [facility] hospital [Mass/Vol] [facility] (19823) Chloride 96 mmol/L (L) 95 - 106 mmol/L [facility] [Moles/Vol] [facility] (12806) Cholesterol 241 mg/dL (H) 180 - 200 mg/dL [facility] [Mass/Vol] [facility] (55123) Cholesterol in 40 mg/dL (L) [facility] HDL [Mass/Vol] [facility] (05736) Cholesterol in 0 mg/dL (no code) 0 - 100 mg/dL [facility] LDL [Mass/Vol] [facility] (99029) Cholesterol non 201 mg/dL (H) [facility] HDL [Mass/Vol] [facility] (56177) Cholesterol.tota 6.0 {ratio} (H) [facility] lth l/Cholesterol in [facility] HDL [Mass ratio] [facility] (62681) CO2 [Moles/Vol] 26 mmol/L (N) 23 - 29 mmol/L [facility] (04520) COMMENT no information (no code) [facility] (93241) Creatinine (U) 58 mg/dL (N) [facility] [Mass/Vol] [facility] (13029) Creatinine (U) 53.0 mg/dL (no code) [facility] [Mass/Vol] [facility] (77388) Creatinine 1.31 mg/dL (H) [facility] [Mass/Vol] [facility] (00897) Eosinophils 0.108 10*3/uL (N) 0.05 - 0.5 [facility] He alth (Bld) [#/Vol] 10*3/uL [facility] (11813) Eosinophils/100 1.9 % (N) 1 - 4 % [facility] WBC (Bld) [facility] (28145) Erythrocyte 12.0 % (N) 11.6 - 14.6 % [facility] H ealth distribution Center [facility] (RBC) [facility] [Ratio] (34814) Exp date 09/2020 (no code) [facility] (65022) GFR/1.73 sq M 54 (L) 90 - 120 [facility] He alth predicted among mL/min/{1.73_m2} mL/min/{1.73_m2} [facility] [place] MDRD [facility] (S/P/Bld) [Vol (48924) rate/Area] GFR/1.73 sq 47 (L) 90 - 120 [facility] th M.predicted MDRD mL/min/{1.73_m2} mL/min/{1.73_m2} [facility] (S/P/Bld) [Vol [facility] rate/Area] (51516) Globulin (S) 3.3 g/dL (N) 2 - 3.5 g/dL [facility] ealth [Mass/Vol] [facility] (72487) Glucose 554 mg/dL (H) 60 - 125 mg/dL [facility] [Mass/Vol] [facility] (53766) HbA1c (Bld) % (no code) 0 - 5.7 % [facility] [Mass fraction] [facility] (75430) Hematocrit (Bld) 40.4 % (N) 36.1 - 50.3 % [facility] (75440) Hemoglobin (Bld) 13.1 g/dL (N) 12.1 - 17.2 g/dL [facility] [Mass/Vol] [facility] (16491) Lot [id number] (no code) [facility] (95640) Lymphocytes 2.075 10*3/uL (N) 0.9 - 2.9 [facility] He alth (Bld) [#/Vol] 10*3/uL [facility] (49060) Lymphocytes/100 36.4 % (N) 20 - 40 % [facility] WBC (Bld) [facility] (31921) MCH (RBC) 30.8 pg (N) 27 - 31 pg [facility] [Entitic mass] [facility] (93462) MCHC (RBC) 32.4 g/dL (N) 32 - 36 g/dL [facility] alth [Mass/Vol] [facility] (38025) MCV (RBC) 95.1 fL (N) 80 - 100 fL [facility] Hea lt [Entitic vol] [facility] (08049) medMATCH CONSISTENT (no code) [facility] Amphetamines [facility] (67789) medMATCH CONSISTENT (no code) [facility] Benzodiazepines [facility] (02779) medMATCH Cocaine CONSISTENT (no code) [facility] Metab [facility] (76152) medMATCH CONSISTENT (no code) [facility] Marijuana Metab [facility] (48901) medMATCH Opiates INCONSISTENT (no code) [facility] (56532[facility] medMATCH CONSISTENT (no code) [facility] Oxycodone [facility] (83401) Monocytes (Bld) 0.49 10*3/uL (N) 0.3 - 0.9 [facility] [#/Vol] 10*3/uL [facility] (52401) Monocytes/100 8.6 % (N) 2 - 8 % [facility] WBC (Bld) [facility] (76187) Neutrophils 3.01 10*3/uL (N) 1.7 - 7 10*3/uL [facility] (Bld) [#/Vol] [facility] (25351) Neutrophils/100 52.8 % (N) 40 - 60 % [facility] WBC (Bld) [facility] (32940) Opiates Ql (U) no information (no code) [facility] (72994) Oxidants Ql (U) no information (no code) [facility] (05311) Oxycodone Ql (U) no information (no code) [facility] (64209) pH (U) 5.86 [pH] (no code) 4.6 - 8 [pH] [facility] (88293) Platelet mean 10.4 fL (N) 7.2 - 11.7 fL [facility] volume (Bld) [facility] [Entitic vol] [facility] (64427) Platelets (Bld) 226 10*3/uL (N) 150 - 450 [facility] Health [#/Vol] 10*3/uL [facility] (96204) Potassium 4.5 mmol/L (N) 3.7 - 5.2 mmol/L [facility] [Moles/Vol] [facility] (65311) Prescribed Drug Hydrocodone (no code) [facility] 1 [facility] () Protein 7.2 g/dL (N) 6.4 - 8.3 g/dL [facility] [Mass/Vol] [facility] () RBC (Bld) 4.25 10*6/uL (N) 4.2 - 6.1 [facility] Hea lth [#/Vol] 10*6/uL [facility] () Sodium 130 mmol/L (L) 135 - 145 mmol/L [facility] [Moles/Vol] [facility] (06576) Tetrahydrocannab no information (no code) [facility] inol Ql (U) [facility] () Triglyceride 409 mg/dL (H) 0 - 150 mg/dL [facility] [Mass/Vol] [facility] () TSH Qn 2.71 m[IU]/L (N) 0.4 - 4 m[IU]/L [facility] (19144) Urea nitrogen 27 mg/dL (H) 7 - 20 mg/dL [facility] [Mass/Vol] [facility] (13759) Urea 21 mg/mg (N) 6 - 22 mg/mg [facility] alth nitrogen/Creatin [facility] [Mass ratioFormerly [facility] () WBC (Bld) 5.7 10*3/uL (N) 3.5 - 10.5 [facility] [#/Vol] 10*3/uL [facility] (07274) No panel information on 2018-01-18 Exp date 06/03/2018 (no code) no information GLU FINGERSTICK [facility] (no code) no information Lot # [id number] (no code) no information No panel information on 2018-01-05 Amylase enzyme 28 U/L (N) 40 - 140 U/L [facility] act/vol [facility] (82779) BLO 1+ (no code) [facility] (37487) Exp date 02/12/2018 (no code) [facility] (62029) GLU FINGERSTICK 103 (no code) [facility] (63898) KET 05/19/2018~clear (no code) [facility] ~orange~no~2+~2+ [facility] (72219) KURT no information (no code) [facility] (63719) Lipase enzyme 12 U/L (N) 10 - 73 U/L [facility] ealt act/vol [facility] (43686) Lot # [id number] (no code) [facility] (65926) Lot # [id number] (no code) [facility] (98512) pH (Bld) 5.5 [pH] (no code) 7.38 - 7.42 [pH] [facility] (35693) Protein mass 3+ (no code) [facility] conc (U) [facility] (64100) SG 1.030 (no code) [facility] (00193) URO 1.0 (no code) [facility] (84283) No panel information on 2017-12-01 Exp date (no code) [facility] (01426) Lot [id number] (no code) [facility] (15589) No panel information on 2017-10-07 Albumin mass 4.4 g/dL (N) 3.4 - 5.4 g/dL [facility] (19919) Albumin/Globulin 1.5 (N) [facility] mass ratio [facility] (29542) ALP enzyme 86 U/L (N) 44 - 147 U/L [facility] He alth act/vol [facility] (03335) ALT enzyme 23 U/L (N) 4 - 40 U/L [facility] act/vol [facility] (41041) AST enzyme 22 U/L (N) 10 - 34 U/L [facility] Hea lt act/vol [facility] (50096) Bilirubin mass 0.4 mg/dL (N) 0.1 - 1.2 mg/dL [facility] (30598) C-PEPTIDE 0.73 (L) [facility] (14473) Calcium mass 12.4 mg/dL (H) 8.5 - 10.2 mg/dL [facility] (43055) Chloride molar 103 mmol/L (N) 95 - 106 mmol/L [facility] (69396) CO2 molar conc 24 mmol/L (N) 23 - 29 mmol/L [facility] (80299) Creatinine mass 1.04 mg/dL (N) [facility] (93674) GFR/1.73 sq M 72 (N) 90 - 120 [facility] predicted among mL/min/{1.73_m2} mL/min/{1.73_m2} [facility] MDRD vol [facility] rate/area (75474) (S/P/Bld) GFR/1.73 sq 62 (N) 90 - 120 [facility] th M.predicted MDRD mL/min/{1.73_m2} mL/min/{1.73_m2} Center [facility] rate/area [facility] (60022) Globulin 2.9 (N) [facility] Calculated mass [facility] (S) [facility] (17196) Glucose mass 61 mg/dL (L) 60 - 125 mg/dL [facility] (81285) Potassium molar 3.9 mmol/L (N) 3.7 - 5.2 mmol/L [facility] (36883) Protein mass 7.3 g/dL (N) 6.4 - 8.3 g/dL [facility] (12922) Sodium molar 138 mmol/L (N) 135 - 145 mmol/L [facility] (23837) Urea nitrogen 32 mg/dL (H) 7 - 20 mg/dL [facility] (28965) Urea 31 mg/mg (H) 6 - 22 mg/mg [facility] nitrogen/Creatin [facility] ine mass ratio [facility] (21640) No panel information on 2017-08-18 Albumin DL <= 20 80.3 mg/dL (N) 0.2 - 1.9 mg/dL [facility] mg/L mass conc [facility] (U) [facility] (15212) Albumin mass 3.9 g/dL (N) 3.4 - 5.4 g/dL no inform ation conc Albumin/Globulin 1.2 (N) no informatio n mass ratio ALP enzyme 107 U/L (N) 44 - 147 U/L no informati on act/vol ALT enzyme 28 U/L (N) 4 - 40 U/L no information act/vol AST enzyme 25 U/L (N) 10 - 34 U/L no informatio n act/vol Bilirubin mass 0.6 mg/dL (N) 0.1 - 1.2 mg/dL no inf ormation conc Calcium mass 11.1 mg/dL (H) 8.5 - 10.2 mg/dL no info rmation conc Chloride molar 94 mmol/L (L) 95 - 106 mmol/L no inf ormation conc CO2 molar conc 27 mmol/L (N) 23 - 29 mmol/L no info rmation Creatinine mass 1.09 mg/dL (H) no information conc Creatinine mass 46 mg/dL (N) [facility] (U) [facility] (79176) GFR/1.73 sq M 68 (N) 90 - 120 no informati on predicted among mL/min/{1.73_m2} mL/min/{1.73_m2} blacks MDRD vol rate/area (S/P/Bld) GFR/1.73 sq 59 (L) 90 - 120 no information M.predicted MDRD mL/min/{1.73_m2} mL/min/{1.73_m2} vol rate/area Globulin 3.2 (N) no information Calculated mass conc (S) Glucose mass 483 mg/dL (H) 60 - 125 mg/dL no inform ation conc MICROALBUMIN/CRE 1746 (H) [facility] lth ATININE RATIO, [facility] RANDOM URINE [facility] (61444) Potassium molar 4.6 mmol/L (N) 3.7 - 5.2 mmol/L no i nformation conc Protein mass 7.1 g/dL (N) 6.4 - 8.3 g/dL no inform ation conc Sodium molar 130 mmol/L (L) 135 - 145 mmol/L no info rmation conc Urea nitrogen 25 mg/dL (N) 7 - 20 mg/dL no informa tion mass conc Urea 23 mg/mg (H) 6 - 22 mg/mg no informati on nitrogen/Creatin ine mass ratio No panel information on 2017-03-05 Albumin 4.2 g/dL (no code) 3.4 - 5.4 g/dL 03-05-2017 Not Doreen ilable [Mass/Vol] 10:490400 (85706) Albumin/Globulin 1.3 {ratio} (no code) 1 - 2.5 {ratio} 7 Not Available [Mass ratio] 10:490400 (75121) ALP [Catalytic 128 U/L (H) 44 - 147 U/L 03-05-2017 Not Available activity/Vol] 10:49040 (36759) ALT [Catalytic 22 U/L (no code) 4 - 40 U/L 03-05-2017 Not Av ailable activity/Vol] 10:490400 (67218) AST [Catalytic 27 U/L (no code) 10 - 34 U/L 03-05-2017 Not A vailable activity/Vol] 10:490400 (45745) Basophils (Bld) 0.0 10*3/uL (no code) 0 - 0.3 10*3/uL 03-05-2017 Not Available [#/Vol] 11: (17648) Basophils/100 0 % (no code) 0.5 - 1 % 03-05-2017 Not Avai lable WBC (Bld) 11: (45322) Bilirubin 0.4 mg/dL (no code) 0.1 - 1.2 mg/dL 03-05-2017 Not Av ailable [Mass/Vol] 10:490400 (67509) Calcium 11.8 mg/dL (H) 8.5 - 10.2 mg/dL 03-05-2017 Not Available [Mass/Vol] 10: (67769) Chloride 97 mmol/L (no code) 95 - 106 mmol/L 03-05-2017 Not Av ailable [Moles/Vol] 10: (41868) CO2 [Moles/Vol] 22 mmol/L (no code) 23 - 29 mmol/L 03-05-2017 N ot Available 10: () Creatinine 1.57 mg/dL (H) 03-05-2017 Not Available [Mass/Vol] 10: () Eosinophils 0.1 10*3/uL (no code) 0.05 - 0.5 03-05-2017 Not Doreen ilable (Bld) [#/Vol] 10*3/uL 11: () Eosinophils/100 1 % (no code) 1 - 4 % 03-05-2017 Not Av ailable WBC (Bld) 11: () Erythrocyte 13.3 % (no code) 11.6 - 14.6 % 03-05-2017 Not Av ailable distribution 11: () width (RBC) [Ratio] GFR/1.73 sq M 44 (L) 90 - 120 03-05-2017 Not Avai lable predicted among mL/min/{1.73_m2} mL/min/{1.73_m2} 10: (51491) blacks MDRD (S/P/Bld) [Vol rate/Area] GFR/1.73 sq M 38 (L) 90 - 120 03-05-2017 Not Avai lable predicted among mL/min/{1.73_m2} mL/min/{1.73_m2} 10: (78813) non-blacks MDRD (S/P/Bld) [Vol rate/Area] Globulin (S) 3.2 g/dL (no code) 2 - 3.5 g/dL 03-05-2017 Not Av ailable [Mass/Vol] 10: (68892) Glucose 32 mg/dL (<) 60 - 125 mg/dL 03-05-2017 Not Doreen ilable [Mass/Vol] 10: (13760) Hematocrit (Bld) 41.3 % (no code) 36.1 - 50.3 % 03-05-2017 N ot Available [Volume : () fraction] Hemoglobin (Bld) 14.0 g/dL (no code) 12.1 - 17.2 g/dL 03-05-2017 Not Available [Mass/Vol] 11: () Immature 0.1 10*3/uL (no code) 0 - 0.2 10*3/uL 03-05-2017 Not Available granulocytes 11: () (Bld) [#/Vol] Immature 1 % (no code) 0 - 0.5 % 03-05-2017 Not Availabl e granulocytes/100 11: () WBC (Bld) Lymphocytes 4.1 10*3/uL (H) 0.9 - 2.9 03-05-2017 Not Avai lable (Bld) [#/Vol] 10*3/uL 11: () Lymphocytes/100 46 % (no code) 20 - 40 % 03-05-2017 Not Av ailable WBC (Bld) 11: () Magnesium 2.4 mg/dL (H) 1.7 - 2.2 mg/dL 03-05-2017 Not Av ailable [Mass/Vol] 10:49-0400 (73161) MCH (RBC) 31.5 pg (no code) 27 - 31 pg 03-05-2017 Not Availab le [Entitic mass] 11: () MCHC (RBC) 33.9 g/dL (no code) 32 - 36 g/dL 03-05-2017 Not Avai lable [Mass/Vol] 11:0 (65994) MCV (RBC) 93 fL (no code) 80 - 100 fL 03-05-2017 Not Availa ble [Entitic vol] 11: () Monocytes (Bld) 0.6 10*3/uL (no code) 0.3 - 0.9 03-05-2017 Not Available [#/Vol] 10*3/uL 11:0 (48024) Monocytes/100 7 % (no code) 2 - 8 % 03-05-2017 Not Avai lable WBC (Bld) 11:000400 (97929) Neutrophils 4.0 10*3/uL (no code) 1.7 - 7 10*3/uL 03-05-2017 No t Available (Bld) [#/Vol] 11:000400 (21445) Neutrophils/100 45 % (no code) 40 - 60 % 03-05-2017 Not Av ailable WBC (Bld) 11:0400 (50593) Platelets (Bld) 285 10*3/uL (no code) 150 - 450 03-05-2017 Not Available [#/Vol] 10*3/uL 11:0400 (05254) Potassium 3.9 mmol/L (no code) 3.7 - 5.2 mmol/L 03-05-2017 Not Available [Moles/Vol] 10:49-0400 (95950) Protein 7.4 g/dL (no code) 6.4 - 8.3 g/dL 03-05-2017 Not Doreen ilable [Mass/Vol] 10:49-0400 (11338) RBC (Bld) 4.44 10*6/uL (no code) 4.2 - 6.1 03-05-2017 Not Avail able [#/Vol] 10*6/uL 11:0400 (26450) Sodium 139 mmol/L (no code) 135 - 145 mmol/L 03-05-2017 Not Available [Moles/Vol] 10:49-0400 (40718) Urea nitrogen 31 mg/dL (H) 7 - 20 mg/dL 03-05-2017 Not A vailable [Mass/Vol] 10:49-0400 (72541) Urea 20 mg/mg (no code) 6 - 22 mg/mg 03-05-2017 Not Avail able nitrogen/Creatin 10:49-0400 (11216) ine [Mass ratio] WBC (Bld) 8.9 10*3/uL (no code) 3.5 - 10.5 03-05-2017 Not Avail able [#/Vol] 10*3/uL 11:000400 (71485) No panel information on 2017-02-18 C peptide mass 1.1 (no code) 02-18-2017 Not Availab le conc 13:55-0400 (89457) Glucose mass 146 mg/dL (H) 60 - 125 mg/dL 02-18-2017 Not Available conc 10:050400 (30733) No panel information on 2017-02-12 C peptide 0.9 (L) 02-12-2017 Not Available [Mass/Vol] 13:41-0400 (95052) Glucose 252 mg/dL (H) 60 - 125 mg/dL 02-12-2017 Not Doreen ilable [Mass/Vol] 09: (44301) No panel information on 2016-12-25 Albumin 4.0 g/dL (no code) 3.4 - 5.4 g/dL 12-25-2016 Not Doreen ilable [Mass/Vol] 12: (51390) Albumin/Globulin 1.3 {ratio} (no code) 1 - 2.5 {ratio} 7 Not Available [Mass ratio] 12: (71904) ALP [Catalytic 120 U/L (H) 44 - 147 U/L 12-25-2016 Not Available activity/Vol] 12: (10523) ALT [Catalytic 25 U/L (no code) 4 - 40 U/L 12-25-2016 Not Av ailable activity/Vol] 12: (93182) AST [Catalytic 20 U/L (no code) 10 - 34 U/L 12-25-2016 Not A vailable activity/Vol] 12: (47933) Basophils (Bld) 0.0 10*3/uL (no code) 0 - 0.3 10*3/uL 12-25-2016 Not Available [#/Vol] 08: (89509) Basophils/100 0 % (no code) 0.5 - 1 % 12-25-2016 Not Avai lable WBC (Bld) 08: (79111) Bilirubin 0.5 mg/dL (no code) 0.1 - 1.2 mg/dL 12-25-2016 Not Av ailable [Mass/Vol] 12: (92854) Calcium 11.6 mg/dL (H) 8.5 - 10.2 mg/dL 12-25-2016 Not Available [Mass/Vol] 12: (50804) Chloride 90 mmol/L (L) 95 - 106 mmol/L 12-25-2016 Not Av ailable [Moles/Vol] 12: (27931) Cholesterol 364 mg/dL (H) 180 - 200 mg/dL 12-25-2016 Not Available [Mass/Vol] 12: (04728) Cholesterol in 47 mg/dL (no code) 12-25-2016 Not Availab le HDL [Mass/Vol] 12: (64066) Cholesterol in Comment (no code) 12-25-2016 Not Availab le LDL [Mass/Vol] 12: (57211) Cholesterol in Comment (no code) 12-25-2016 Not Availab le VLDL [Mass/Vol] 12: (25966) CO2 [Moles/Vol] 24 mmol/L (no code) 23 - 29 mmol/L 12-25-2016 N ot Available : (19060) Creatinine 1.11 mg/dL (H) 12-25-2016 Not Available [Mass/Vol] 12: (93390) Eosinophils 0.1 10*3/uL (no code) 0.05 - 0.5 12-25-2016 Not Doreen ilable (Bld) [#/Vol] 10*3/uL 08: (80657) Eosinophils/100 2 % (no code) 1 - 4 % 12-25-2016 Not Av ailable WBC (Bld) 08: (60483) Erythrocyte 13.1 % (no code) 11.6 - 14.6 % 12-25-2016 Not Av ailable distribution 08: (78329) width (RBC) [Ratio] GFR/1.73 sq M 67 (no code) 90 - 120 12-25-2016 Not Avai lable predicted among mL/min/{1.73_m2} mL/min/{1.73_m2} 12: (76263) blacks MDRD (S/P/Bld) [Vol rate/Area] GFR/1.73 sq M 58 (L) 90 - 120 12-25-2016 Not Avai lable predicted among mL/min/{1.73_m2} mL/min/{1.73_m2} 12: (65910) non-blacks MDRD (S/P/Bld) [Vol rate/Area] Globulin (S) 3.0 g/dL (no code) 2 - 3.5 g/dL 12-25-2016 Not Av ailable [Mass/Vol] 12: (61837) Glucose 571 mg/dL (>) 60 - 125 mg/dL 12-25-2016 Not Doreen ilable [Mass/Vol] 12: (63048) Hematocrit (Bld) 41.3 % (no code) 36.1 - 50.3 % 12-25-2016 N ot Available [Volume 08: () fraction] Hemoglobin (Bld) 13.6 g/dL (no code) 12.1 - 17.2 g/dL 12-25-2016 Not Available [Mass/Vol] 08: () Immature 0.0 10*3/uL (no code) 0 - 0.2 10*3/uL 12-25-2016 Not Available granulocytes 08: (62611) (Bld) [#/Vol] Immature 1 % (no code) 0 - 0.5 % 12-25-2016 Not Availabl e granulocytes/100 08: (77951) WBC (Bld) Lymphocytes 2.2 10*3/uL (no code) 0.9 - 2.9 12-25-2016 Not Avai lable (Bld) [#/Vol] 10*3/uL 08: (40486) Lymphocytes/100 32 % (no code) 20 - 40 % 12-25-2016 Not Av ailable WBC (Bld) 08: (25112) MCH (RBC) 31.4 pg (no code) 27 - 31 pg 12-25-2016 Not Availab le [Entitic mass] 08: (95972) MCHC (RBC) 32.9 g/dL (no code) 32 - 36 g/dL 12-25-2016 Not Avai lable [Mass/Vol] 08: (92730) MCV (RBC) 95 fL (no code) 80 - 100 fL 12-25-2016 Not Availa ble [Entitic vol] 08: (59408) Monocytes (Bld) 0.4 10*3/uL (no code) 0.3 - 0.9 12-25-2016 Not Available [#/Vol] 10*3/uL 08: (52263) Monocytes/100 6 % (no code) 2 - 8 % 12-25-2016 Not Avai lable WBC (Bld) 08: (86557) Neutrophils 4.0 10*3/uL (no code) 1.7 - 7 10*3/uL 12-25-2016 No t Available (Bld) [#/Vol] 08: (41953) Neutrophils/100 59 % (no code) 40 - 60 % 12-25-2016 Not Av ailable WBC (Bld) 08: (44117) Platelets (Bld) 217 10*3/uL (no code) 150 - 450 12-25-2016 Not Available [#/Vol] 10*3/uL 08: (35418) Potassium 5.0 mmol/L (no code) 3.7 - 5.2 mmol/L 12-25-2016 Not Available [Moles/Vol] 12: (02712) Protein 7.0 g/dL (no code) 6.4 - 8.3 g/dL 12-25-2016 Not Doreen ilable [Mass/Vol] 12: (24259) RBC (Bld) 4.33 10*6/uL (no code) 4.2 - 6.1 12-25-2016 Not Avail able [#/Vol] 10*6/uL 08: (81426) Sodium 129 mmol/L (L) 135 - 145 mmol/L 12-25-2016 Not Available [Moles/Vol] 12: (23130) Triglyceride 539 mg/dL (H) 0 - 150 mg/dL 12-25-2016 Not A vailable [Mass/Vol] 12: (62904) Urea nitrogen 18 mg/dL (no code) 7 - 20 mg/dL 12-25-2016 Not A vailable [Mass/Vol] 12: (14255) Urea 16 mg/mg (no code) 6 - 22 mg/mg 12-25-2016 Not Avail able nitrogen/Creatin 12: (79584) ine [Mass ratio] WBC (Bld) 6.7 10*3/uL (no code) 3.5 - 10.5 12-25-2016 Not Avail able [#/Vol] 10*3/uL 08: ([id number]) Vital Signs Vital Sign Value Interpretation Reference Date Time Care Prov ider Facility (Normalized) (Normalized) Range BMI (Body Mass 24.22 kg/m2 (no code) 15 - 25 kg/m2 06-21-2018 UY EN JOSE Community Index) 10:20-[address] [place] [address] ([id number]) BMI (Body Mass 24.56 kg/m2 (no code) 15 - 25 kg/m2 05-25-2018 HO LLY GAULT Community Index) 10:00-[address] [place] [address] ([id number]) BMI (Body Mass 24.75 kg/m2 (no code) 15 - 25 kg/m2 02-25-2018 HO LLY GAULT Community Index) 14:40-0400 [id number] [facility] ([id number]) BMI (Body Mass 24.31 kg/m2 (no code) 15 - 25 kg/m2 01-05-2018 HO LLY GAULT Community Index) 17:40-[address] [place] [address] ([id number]) BMI (Body Mass 25.98 kg/m2 (no code) 15 - 25 kg/m2 12-01-2017 HO LLY GAULT Community Index) 14:20-0400 [id number] [facility] ([id number]) BMI (Body Mass 25.86 kg/m2 (no code) 15 - 25 kg/m2 09-22-2017 HO LLY GAULT Community Index) 11:40-0500 [id number] [facility] ([id number]) Body 97.9 [degF] (no code) 97.8 - 99.0 05-25-2018 JALEN Osborn Community Temperature [degF] 10:00-[address] [place] [address] ([id number]) Body 97.3 [degF] (no code) 97.8 - 99.0 02-25-2018 JALEN HARRIET T Community Temperature [degF] 14:40-0400 38943 [facility] ([id number]) Body 98.1 [degF] (no code) 97.8 - 99.0 01-18-2018 JALEN HARRIET T Community Temperature [degF] 11:20-0400 86977 [facility] ([id number]) Body 97.9 [degF] (no code) 97.8 - 99.0 01-05-2018 JALEN HARRIET T Community Temperature [degF] 17:40-0400 42295 [facility] ([id number]) Body 97.4 [degF] (no code) 97.8 - 99.0 12-01-2017 JALEN HARRIET T Community Temperature [degF] 14:20-0400 09856 [facility] ([id number]) Body 97.8 [degF] (no code) 97.8 - 99.0 09-22-2017 JALEN HARRIET T Community Temperature [degF] 11:40-0500 88275 [facility] ([id number]) Height 154.94 cm (no code) cm 06-21-2018 JACKApryl LUOH Comm unity 10:20-0500 92060 [facility] ([id number]) Height 154.94 cm (no code) cm 05-25-2018 JALEN GAULT Co mmunity 10:00-0500 41354 [facility] ([id number]) Height 154.94 cm (no code) cm 02-25-2018 JALEN GAULT Co mmunity 14:40-0400 22513 [facility] ([id number]) Height 154.94 cm (no code) cm 01-18-2018 JALEN GAULT Co mmunity 11:20-0400 70747 [facility] ([id number]) Height 154.94 cm (no code) cm 01-05-2018 JALEN GAULT Co mmunity 17:40-0400 65049 [facility] ([id number]) Height 154.94 cm (no code) cm 12-01-2017 JALEN GAULT Co mmunity 14:200400 [address] [place] [address] ([id number]) Height 154.94 cm (no code) cm 09-22-2017 JALEN GAULT Co mmunity 11:400500 [address] [place] [address] ([id number]) Pulse Oximetry 0 % (no code) 95 - 100 % 01-18-2018 JALEN [place] [facility] 11:200400 [address] [place] [address] ([id number]) Weight 58.15 kg (no code) kg 06-21-2018 JACK JOSE Commu nity 10:200500 [address] [place] [address] ([id number]) Weight 58.97 kg (no code) kg 05-25-2018 JALEN GAULT Com munity 10:00-[address] [place] [address] ([id number]) Weight 59.42 kg (no code) kg 02-25-2018 JALEN GAULT Com munity 14:400400 [address] [place] [address] ([id number]) Weight 58.38 kg (no code) kg 01-05-2018 JALEN GAULT Com munity 17:40-[address] [place] [address] ([id number]) Weight 62.37 kg (no code) kg 12-01-2017 JALEN GAULT Com munity 14:200400 [address] [place] [address] ([id number]) Weight 62.1 kg (no code) kg 09-22-2017 JALEN GAULT Com munity 11:400500 [address] [place] [address] ([id number]) Interventions No Information Plan of Treatment Normalized Care Care Detail Care Activity Date Care Provider F acility Activity (ACUTE) Acute Visit [facility] 05-25-2018 - JALEN PEERZ [phone] [facility] 05-25-2018 - [facility] 05-25-2018 [place] ([id number]) (BH-FU-30) [facility] 07-22-2018 - AMINA ARECHIGA [facility] 07-22-2018 - [id number] [place] [address] F/u 30 min 07-22-2018 [place] ([id number]) (BH-FU-30) [facility] 07-14-2018 - AMINA ARECHIGA Critical access hospital Behavioral Health [facility] 07-14-2018 - [id number] [facility] F/u 30 min 07-14-2018 [place] ([id number]) (BH-FU-30) [facility] 07-01-2018 AMINA ARECHIGA [facility] [address] [facility] F/u 30 min [place] ([id number]) (BH-FU-60) [facility] 06-21-2018 - RAFAELA HAWK [facility] 06-21-2018 - [id number] [facility] F/u 60 min 06-21-2018 [place] ([id number]) (BH-INTAKE) [facility] 05-10-2018 - JALEN PEREZ [id number] [facility] 05-10-2018 - [facility] Intake 05-10-2018 [place] ([id number]) (DM-MGMT) Diabetes [facility] 05-25-2018 - RAFAELA Pink [facility] 05-25-2018 - [id number] [facility] 05-25-2018 [place] ([id number]) (PSY-FU-20) [facility] 05-18-2018 RAFAELA ARECHIGA [facility] Psychiatry F/U 20 [facility] [address] [facility] min [place] ([id number]) (PSY-FU-40) [facility] 06-21-2018 - JALEN PEREZ [id number] [facility] Psychiatry F/U 40 [facility] 06-21-2018 - [facility] min 06-21-2018 [place] ([id number]) (PSY-FU-40) [facility] 07-26-2018 - AMINA HAWK Critical access hospital Psychiatry F/U 40 [facility] 07-26-2018 - [id number] [facility] min 07-26-2018 [place] ([id number]) [facility] 10-13-2019 JALEN PEREZ 47[address] Community Health [facility] ([id number]) [facility] 10-11-2019 JALEN PEREZ 06471 [facility] ([id number]) [facility] 10-03-2019 JALEN PEREZ 28047 [facility] ([id number]) Goals No Information Social History No Information Functional Status No Information Mental Status No Information Encounters Encounter Normalized Encounter Encounter Diagnosis Care Provi sekou Organization Date Type 05-11-2018 (ACUTE) Acute Visit Other intervertebral JALEN Osbonr (no phone) [facility] - disc degeneration, (no phone) 05-11-2018 lumbar region - 05-11-2018 04-26-2018 (ACUTE) Acute Visit no information JALEN GAKARTIK (no phone) [facility] - (no phone) 04-26-2018 - 04-26-2018 04-27-2018 [facility] no information AMINA ANDERSO N (no [facility] - Health F/u 30 min phone) (no phone) 04-27-2018 - 04-27-2018 03-29-2018 (-FU-30) Behavioral no information AMINA ANDERSO N (no [facility] - Health F/u 30 min phone) (no phone) 03-29-2018 - 03-29-2018 06-29-2018 (-FU-60) Behavioral Major depressive AMINA LUIS FELIPE SON (no [facility] Health F/u 60 min disorder, recurrent, phone) (no phone) 06-29-2018 moderate - 06-29-2018 06-21-2018 (-FU-60) Behavioral Major depressive AMINA LUIS FELIPE SON (no [facility] - Health F/u 60 min disorder, recurrent, phone) (no phone) 06-21-2018 moderate - 06-21-2018 05-10-2018 (-INTAKE) Behavioral Major depressive RAFAELA APPLE AN[place]IETTAON (no [facility] Health Intake disorder, recurrent, phone) (no phone) 05-10-2018 moderate - 05-10-2018 05-25-2018 (CHM) Chronic Health Other fatigue JALEN PEREZ (no phone) [facility] - Maintenance (no phone) 05-25-2018 - 05-25-2018 05-25-2018 (DM-MGMT) Diabetes Type 2 diabetes JULIEN KRAUS (no phone) [facility] - Management mellitus with (no phone) 05-25-2018 hyperglycemia - 05-25-2018 02-25-2018 (HOSP F/U) Hospital Type 2 diabetes JALEN PEREZ (no phone) [facility] - Follow-up mellitus with other (no phone ) 02-25-2018 diabetic neurological - complication 02-25-2018 05-18-2018 (PSY-FU-20) Psychiatry no information JACK JOSE (no phone) [facility] F/U 20 min (no phone) 06-21-2018 (PSY-FU-40) Psychiatry Major depressive JACK JOSE ( no phone) [facility] - F/U 40 min disorder, recurrent, (no phon e) 06-21-2018 moderate - 06-21-2018 08-30-2019 [facility] Other chronic pain JALEN Osborn (no phone) [facility] (no phone) 08-24-2019 [facility] Type 2 diabetes SYED ONESIMO [facility] (no [facility] mellitus with other phone) (no phone) diabetic neurological complication 08-24-2019 [facility] Post-traumatic stress AMINA HAWK (no [facility] disorder, unspecified phone) (no phone) 08-04-2019 [facility] Essential (primary) JALEN SAINI LT (no phone) [facility] hypertension (no phone) 06-07-2019 [facility] Type 2 diabetes JALEN PEREZ ( no phone) [facility] mellitus with (no phone) hyperglycemia 01-19-2019 [facility] Type 2 diabetes JALEN PEREZ ( no phone) [facility] mellitus with other (no phone) diabetic kidney complication 12-22-2018 [facility] Type 2 diabetes JALEN PEREZ ( no phone) [facility] mellitus with (no phone) hyperglycemia 08-25-2018 [facility] Type 2 diabetes JALEN PEREZ ( no phone) [facility] mellitus with (no phone) hyperglycemia 07-22-2018 [facility] Major depressive AMINA BRISCOE SON (no [facility] disorder, recurrent, phone) (no phone) moderate 02-11-2018 [facility] no information JALEN GAULT (n o phone) [facility] - (no phone) 02-11-2018 - 02-11-2018 02-10-2018 [facility] no information JALEN GAULT (n o phone) [facility] - (no phone) 02-10-2018 - 02-10-2018 02-04-2018 [facility] no information JALEN GAULT (n o phone) [facility] - (no phone) 02-04-2018 - 02-04-2018 02-01-2018 [facility] no information JALEN GAULT (n o phone) [facility] - (no phone) 02-01-2018 - 02-01-2018 01-28-2018 [facility] no information JALEN GAULT (n o phone) [facility] - (no phone) 01-28-2018 - 01-28-2018 01-27-2018 [facility] no information JALEN GAULT (n o phone) [facility] - (no phone) 01-27-2018 - 01-27-2018 06-26-2019 Emergency department no information no name (no deborah ne) no organization name patient visit (no phone) 05-21-2019 Emergency department no information no name (no deborah ne) no organization name patient visit (no phone) 01-31-2017 Emergency department no information no name (no deborah ne) no organization name - patient visit (no phone) 01-31-2017 01-30-2017 Emergency department no information no name (no deborah ne) no organization name - patient visit (no phone) 01-30-2017 12-28-2016 Emergency department no information no name (no deborah ne) no organization name - patient visit (no phone) 12-28-2016 12-28-2016 Emergency department no information no name (no deborah ne) no organization name - patient visit (no phone) 12-28-2016 08-18-2016 Emergency department no information no name (no deborah ne) no organization name patient visit (no phone) 01-10-2015 Emergency department no information no name (no deborah ne) no organization name - patient visit (no phone) 01-10-2015 01-10-2015 Emergency department no information no name (no deborah ne) no organization name - patient visit (no phone) 01-10-2015 06-26-2019 Evaluation and no information no name (no phone) n o organization name - management of (no phone) 06-29-2019 inpatient 05-21-2019 Evaluation and no information no name (no phone) n o organization name - management of (no phone) 05-23-2019 inpatient 05-21-2019 Evaluation and no information no name (no phone) n o organization name - management of (no phone) 05-23-2019 inpatient 01-18-2018 Evaluation and no information no name (no phone) n o organization name - management of (no phone) 01-19-2018 inpatient 01-18-2018 Evaluation and no information no name (no phone) n o organization name - management of (no phone) 01-19-2018 inpatient 08-18-2016 Evaluation and no information no name (no phone) n o organization name - management of (no phone) 08-20-2016 inpatient 08-18-2016 Evaluation and no information no name (no phone) n o organization name - management of (no phone) 08-20-2016 inpatient 07-02-2015 Evaluation and no information no name (no phone) n o organization name - management of (no phone) 07-07-2015 inpatient 07-02-2015 Evaluation and no information no name (no phone) n o organization name - management of (no phone) 07-07-2015 inpatient 06-03-2015 Evaluation and no information no name (no phone) n o organization name - management of (no phone) 06-08-2015 inpatient 06-03-2015 Evaluation and no information no name (no phone) n o organization name - management of (no phone) 06-08-2015 inpatient 05-23-2015 Evaluation and no information no name (no phone) n o organization name - management of (no phone) 05-24-2015 inpatient 05-23-2015 Evaluation and no information no name (no phone) n o organization name - management of (no phone) 05-24-2015 inpatient 07-05-2019 Follow-up encounter Type 2 diabetes SYED Vanegas (no [facility] mellitus with phone) (no phone) hyperglycemia NEGATED Patient encounter no information no name (no phone) no organization name 01-25-2018 (no phone) 01-18-2018 Patient encounter no information no name (no phone) no organization name - (no phone) 01-19-2018 01-18-2018 Patient encounter no information no name (no phone) no organization name (no phone) 01-05-2018 Patient encounter no information no name (no phone) no organization name (no phone) 12-01-2017 Patient encounter no information no name (no phone) no organization name (no phone) 10-07-2017 Patient encounter no information no name (no phone) no organization name (no phone) 09-22-2017 Patient encounter no information no name (no phone) no organization name (no phone) 09-08-2017 Patient encounter no information no name (no phone) no organization name (no phone) 08-27-2017 Patient encounter no information no name (no phone) no organization name (no phone) 08-18-2017 Patient encounter no information no name (no phone) no organization name (no phone) Patient encounter no information no name (no phone) no organ ization name (no phone) 09-15-2019 Patient encounter no information JALEN PEREZ (no ph one) [facility] (no phone) 07-05-2019 Patient encounter no information no name (no phone) no organization name procedure (no phone) 06-07-2019 Patient encounter no information no name (no phone) no organization name procedure (no phone) 05-21-2019 Patient encounter no information no name (no phone) no organization name - procedure (no phone) 05-23-2019 05-21-2019 Patient encounter no information no name (no phone) no organization name - procedure (no phone) 05-23-2019 01-19-2019 Patient encounter no information no name (no phone) no organization name procedure (no phone) 12-22-2018 Patient encounter no information no name (no phone) no organization name procedure (no phone) 12-22-2018 Patient encounter no information no name (no phone) no organization name procedure (no phone) 08-25-2018 Patient encounter no information no name (no phone) no organization name procedure (no phone) 07-22-2018 Patient encounter no information no name (no phone) no organization name procedure (no phone) 06-29-2018 Patient encounter no information no name (no phone) no organization name procedure (no phone) 06-21-2018 Patient encounter no information no name (no phone) no organization name procedure (no phone) 05-25-2018 Patient encounter Type 2 diabetes JULIEN KRAUS (no p ana) [facility] procedure mellitus with (no phone) hyperglycemia 01-31-2017 Patient encounter no information no name (no phone) no organization name procedure (no phone) 08-18-2016 Patient encounter no information no name (no phone) no organization name - procedure (no phone) 08-20-2016 08-09-2019 Telephone encounter Personal history of JALEN GAULT (no phone) [facility] 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), and cerebral infarction without residual deficits 08-08-2019 Telephone encounter Type 2 diabetes JALEN GAULT (no phone) [facility] mellitus without (no phone) complications 08-01-2019 Telephone encounter no information JALEN GAULT (no phone) [facility] (no phone) 07-26-2019 Telephone encounter no information JALEN GAULT (no phone) [facility] (no phone) 07-25-2019 Telephone encounter no information JALEN GAULT (no phone) [facility] (no phone) 07-07-2019 Telephone encounter Other intervertebral JALEN HARRIET T (no phone) [facility] disc degeneration, (no phone) lumbar region 06-30-2019 Telephone encounter no information JALEN GAULT (no phone) [facility] (no phone) 06-29-2019 Telephone encounter no information JALEN GAULT (no phone) [facility] (no phone) 06-28-2019 Telephone encounter no information JALEN GAULT (no phone) [facility] (no phone) 06-09-2019 Telephone encounter Other intervertebral JALEN HARRIET T (no phone) [facility] disc degeneration, (no phone) lumbar region 05-31-2019 Telephone encounter no information JALEN GAULT (no phone) [facility] (no phone) 05-13-2019 Telephone encounter Other intervertebral GUANACO KIN G (no phone) [facility] disc degeneration, (no phone) lumbar region 05-12-2019 Telephone encounter Other intervertebral JALEN HARRIET T (no phone) [facility] disc degeneration, (no phone) lumbar region 04-14-2019 Telephone encounter Other intervertebral JALEN HARRIET T (no phone) [facility] disc degeneration, (no phone) lumbar region 04-08-2019 Telephone encounter no information JALEN GAULT (no phone) [facility] (no phone) 03-17-2019 Telephone encounter Other intervertebral JAIME EN OCH (no [facility] disc degeneration, phone) (no phone) lumbar region 03-08-2019 Telephone encounter no information JALEN GAULT (no phone) [facility] (no phone) 02-17-2019 Telephone encounter Other intervertebral JAIME EN OCH (no [facility] disc degeneration, phone) (no phone) lumbar region 02-08-2019 Telephone encounter no information JALEN GAULT (no phone) [facility] (no phone) 01-17-2019 Telephone encounter Other intervertebral JALEN HARRIET T (no phone) [facility] disc degeneration, (no phone) lumbar region 01-10-2019 Telephone encounter no information AJLEN GAULT (no phone) [facility] (no phone) 12-29-2018 Telephone encounter Type 2 diabetes JALEN GAULT (no phone) [facility] mellitus without (no phone) complications 12-20-2018 Telephone encounter Other intervertebral JALEN HARRIET T (no phone) [facility] disc degeneration, (no phone) lumbar region 12-10-2018 Telephone encounter Type 2 diabetes JALEN GAULT (no phone) [facility] mellitus without (no phone) complications 12-08-2018 Telephone encounter no information JALEN GAULT (no phone) [facility] (no phone) 11-22-2018 Telephone encounter Other intervertebral JALEN HARRIET T (no phone) [facility] disc degeneration, (no phone) lumbar region 11-12-2018 Telephone encounter no information JALEN GAULT (no phone) [facility] (no phone) 10-25-2018 Telephone encounter Other intervertebral JALEN HARRIET T (no phone) [facility] disc degeneration, (no phone) lumbar region 10-14-2018 Telephone encounter no information JALEN GAULT (no phone) [facility] (no phone) 09-24-2018 Telephone encounter Other intervertebral JALEN HARRIET T (no phone) [facility] disc degeneration, (no phone) lumbar region 09-14-2018 Telephone encounter Type 2 diabetes JALEN GAULT (no phone) [facility] mellitus without (no phone) complications 08-31-2018 Telephone encounter Other intervertebral JALEN HARRIET T (no phone) [facility] disc degeneration, (no phone) lumbar region 08-27-2018 Telephone encounter no information JALEN GAULT (no phone) [facility] (no phone) 08-12-2018 Telephone encounter no information JALEN GAULT (no phone) [facility] (no phone) 08-02-2018 Telephone encounter Other intervertebral JALEN HARRIET T (no phone) [facility] disc degeneration, (no phone) lumbar region 07-26-2018 Telephone encounter no information JACK JOSE (no ph one) [facility] (no phone) 07-02-2018 Telephone encounter Other intervertebral JALEN HARRIET T (no phone) [facility] - disc degeneration, (no phone) 07-02-2018 lumbar region - 07-02-2018 06-07-2018 Telephone encounter Other intervertebral JALEN HARRIET T (no phone) [facility] - disc degeneration, (no phone) 06-07-2018 lumbar region - 06-07-2018 05-31-2018 Telephone encounter no information JALEN GAULT (no phone) [facility] - (no phone) 05-31-2018 - 05-31-2018 05-20-2018 Telephone encounter no information JALEN GAULT (no phone) [facility] - (no phone) 05-20-2018 - 05-20-2018 05-10-2018 Telephone encounter no information JALEN GAULT (no phone) [facility] - (no phone) 05-10-2018 - 05-10-2018 04-27-2018 Telephone encounter no information RAFAELA ARECHIGA (no [facility] - phone) (no phone) 04-27-2018 - 04-27-2018 04-22-2018 Telephone encounter Post-traumatic stress JALEN SAINI LT (no phone) [facility] - disorder, unspecified (no phone) 04-22-2018 - 04-22-2018 03-25-2018 Telephone encounter Other chronic pain JALEN PEREZ (no phone) [facility] - (no phone) 03-25-2018 - 03-25-2018 Medical Equipment Equipment Code (if Equipment Original Equipment Identifier P rocedure Code (if Dates provided) Text (if provided) (if provided) provided) no information use to check blood no information (no no informa tion 03-11-2017 sugar named assigning authority) no information as directed no information (no no information 0 01-15-2015 named assigning authority) no information use to check blood no information (no no informa tion 03-11-2017 sugar named assigning authority) no information as directed no information (no no information 0 01-15-2015 named assigning authority) no information use to check blood no information (no no informa tion 03-11-2017 sugar named assigning authority) no information as directed no information (no no information 0 01-15-2015 named assigning authority) no information use to check blood no information (no no informa tion 03-11-2017 sugar named assigning authority) no information as directed no information (no no information 0 01-15-2015 named assigning authority) no information use to check blood no information (no no informa tion 03-11-2017 sugar named assigning authority) no information as directed no information (no no information 0 01-15-2015 named assigning authority) Payers No Information History general Narrative - Reported Note Type Note Facility History general Narrative - Reported Type Medical Type 2 Diabetes History Medical diabetic neuropathy History Medical Stroke History Medical asthma History Medical degenerative disk disease History Medical hypertension History Medical hyperlipidemia History Surgical carpel tunnel History Surgical hernia History Surgical x 4 History Surgical titanium plates in both thi ghs History Surgical ear surgery on left ear to fix hole in ear drum History [facility] surgeries ation History [facility] stroke 12/2012 ation History [facility] blood transfusion 2010 ation History [facility] Stroke 05/23/2015 ation History [facility] UTI/blood infection 06/03/2015 ation History [facility] UTI/low wbc count/dehydration 07/03/20 ation History Hospitaliz Blood clot in lung 01/2016 ation History Hospitaliz Sepsis from UTI, uncontrolled IDDM, nv. HTN 08/18/16 ation History Hospitaliz UTI and blood sugar was 700 05/20/19 ation History Hospitaliz Pneumonia 06-26-19 ation History [facility] ([id number]) Summary Purpose eClinicalWorks SubmissioneClinicalWorks SubmissioneClinicalWorks SubmissioneClinicalWorks SubmissioneClinicalWorks SubmissioneClinicalWorks SubmissioneClinicalWorks SubmissioneClinicalWorks SubmissioneClinicalWorks SubmissioneClinicalWorks SubmissioneClinicalWorks SubmissioneClinicalWorks SubmissioneClinicalWorks SubmissioneClinicalWorks SubmissioneClinicalWorks SubmissioneClinicalWorks SubmissioneClinicalWorks SubmissioneClinicalWorks SubmissioneClinicalWorks SubmissioneClinicalWorks SubmissioneClinicalWorks SubmissioneClinicalWorks SubmissioneClinicalWorks SubmissioneClinicalWorks SubmissioneClinicalWorks SubmissioneClinicalWorks Submission Additional Source Comments This clinical document has been generated using [employer] software that has been certified by the Office of the National Coordinator for Health Information Technology (ONC 15.99.04.3023.Diam.31.00.0.073436) and the National Committee for [employer] (NCQA, as an eMeasure certified technology). FOR RECORDS PERTAINING TO PATIENTS WHO ARE OR HAVE BEEN ENROLLED IN A CHEMICAL D EPENDENCY/SUBSTANCE ABUSE PROGRAM, SOME INFORMATION MAY BE OMITTED. This clinica l summary was aggregated from multiple sources. Caution should be exercised in using it in the provision of clinical care. This summary normalizes information from multiple sources, and as a consequence, information in this document may ma terially change the coding, format and clinical context of patient data. In joey tion, data may be omitted in some cases. CLINICAL DECISIONS SHOULD BE BASED ON T HE PRIMARY CLINICAL RECORDS. [employer] provides no warranty or guara ntee of the accuracy or completeness of information in this document.The followi ng information is based on time limited clinical information UNRECOGNIZED CONTENT PROVIDED BELOW FOR UNRECOGNIZED SECTION MEDICAL (GENERAL) HISTORY Type Description Date Medical [...] Hospitalization History Stroke 05/23/2015 Hospitalization History UTI/blood infectio n 06/03/2015 Hospitalization History UTI/low wbc count/dehydration 07/03/2015 Hospitalization History Blood clot in lung 01/2016 Hospitalization History Sepsis from UTI, uncontrolled IDDM, nv. HTN 08/18/16 UNRECOGNIZED CONTENT PROVIDED BELOW FOR UNRECOGNIZED SECTION REASON FOR VISIT Vomiting and diarrhea, began 5 days ago, nothing OTC akthj-HWbgzrsuzDRNhubsjzj-s Mohinder f/u attemptCardiology Referral/Labscontrolled medicationsRequests return callRequests return callRequests return callControlled Med RefillReminderContro lled Medication RefillReminderHospital f/u -- Shira haas intakerefilldiabete s fu -- Terri haas [facility] Follow-up Depression/TraumaBH [facility] Depression/TraumaControlled Med Refill 07/06Medication Refill
--- OUTSIDE RECORDS SUMMARY | 2019-10-07 16:31 | XMS REPORT | Continuity of Care Document ---
Author Organization Unknown Address Unknown Phone Unavailable Allergies Active Description Code Type Severity Reaction Onset Reported/Identified Relationship to Patient Clinical Status Yes ibuprofen [id number] Drug Allergy Unknown N/A 02/18/2007 Yes Penicillins [id number] Drug Aller gy Unknown N/A 06/03/2015 Yes peas [id number] Drug Allergy Unknown N/A 01/19/2018 Medications There is no data. Problems Date Dx Coded Attending Type Code Diagnosis Diagnosed By 01/10/2015 CLAUDETTE PAULA MD Ot 813.43 FX DISTAL ULNA-CLOSED 01/10/2015 CLAUDETTE PAULA MD Ot 959 .3 ELB/FOREARM/WRST INJ NOS 01/10/2015 CLAUDETTE PAULA MD Ot E000.8 OTHER EXTERNAL CAUSE STATUS 01/10/2015 CLAUDETTE PAULA MD Ot E888.9 FALL NOS 05/24/2015 JAIME GOLDBERG MD Ot E11.65 TYPE 2 DIABETES MELLITUS WITH HYPERGLYCE 05/24/2015 JAIME GOLDBERG MD Ot E78 .5 HYPERLIPIDEMIA, UNSPECIFIED 05/24/2015 JAIME GOLDBERG MD Ot F32 .9 MAJOR DEPRESSIVE DISORDER, SINGLE EPISOD 05/24/2015 JAIME GOLDBERG MD Ot I10 ESSENTIAL (PRIMARY) HYPERTENSION 05/24/2015 JAIME GOLDBERG MD Ot R20 .0 ANESTHESIA OF SKIN 05/24/2015 JAIME GOLDBERG MD Ot R45.851 SUICIDAL IDEATIONS 05/24/2015 JAIME GOLDBERG MD Ot E11.65 05/24/2015 JAIME GOLDBERG MD Ot E78 .5 05/24/2015 JAIME GOLDBERG MD Ot F32 .9 05/24/2015 JAIME GOLDBERG MD Ot I10 05/24/2015 JAIME GOLDBERG MD Ot R20 .0 05/24/2015 JAIME GOLDBERG MD Ot R45.851 06/06/2015 МАРИЯ ROBIN MD Ot E11. 65 06/06/2015 МАРИЯ ROBIN MD Ot A41. 51 06/06/2015 МАРИЯ ROBIN MD Ot E11. 65 06/06/2015 МАРИЯ ROBIN MD Ot E78. 5 06/06/2015 МАРИЯ ROBIN MD Ot E83. 42 06/06/2015 МАРИЯ ROBIN MD Ot E86. 0 06/06/2015 МАРИЯ ROBIN MD Ot E87. 2 06/06/2015 МАРИЯ ROBIN MD Ot E87. 6 06/06/2015 МАРИЯ ROBIN MD Ot F31. 9 06/06/2015 МАРИЯ ROBIN MD Ot I10 06/06/2015 МАРИЯ ROBIN MD Ot N17. 9 06/06/2015 МАРИЯ ROBIN MD Ot N39. 0 06/06/2015 МАРИЯ ROBIN MD Ot R65. 21 06/06/2015 МАРИЯ ROBIN MD Ot Z79. 4 06/06/2015 МАРИЯ ROBIN MD Ot Z86. 73 06/06/2015 МАРИЯ ROBIN MD Ot Z91. 14 06/08/2015 МАРИЯ ROBIN MD Ot A41. 51 SEPSIS DUE TO ESCHERICHIA COLI [E. COLI] 06/08/2015 МАРИЯ ROBIN MD Ot E11. 65 TYPE 2 DIABETES MELLITUS WITH HYPERGLYCE 06/08/2015 МАРИЯ ROBIN MD Ot E78. 5 HYPERLIPIDEMIA, UNSPECIFIED 06/08/2015 МАРИЯ ROBIN MD Ot E83. 42 HYPOMAGNESEMIA 06/08/2015 МАРИЯ ROBIN MD Ot E86. 0 DEHYDRATION 06/08/2015 МАРИЯ ROBIN MD Ot E87. 2 ACIDOSIS 06/08/2015 МАРИЯ ROBIN MD Ot E87. 6 HYPOKALEMIA 06/08/2015 МАРИЯ ROBIN MD Ot F31. 9 BIPOLAR DISORDER, UNSPECIFIED 06/08/2015 МАРИЯ ROBIN MD Ot I10 ESSENTIAL (PRIMARY) HYPERTENSION 06/08/2015 МАРИЯ ROBIN MD Ot N17. 9 ACUTE KIDNEY FAILURE, UNSPECIFIED 06/08/2015 МАРИЯ ROBIN MD, Ot N39. 0 URINARY TRACT INFECTION, SITE NOT SPECIF 06/08/2015 МАРИЯ ROBIN MD, Ot R65. 21 SEVERE SEPSIS WITH SEPTIC SHOCK 06/08/2015 МАРИЯ ROBIN MD, Ot Z79. 4 SEC[employer]ARY ENGLISH [employer]ER (CURRENT) USE OF INSULIN 06/08/2015 МАРИЯ ROBIN MD, Ot Z86. 73 PRSNL HX OF TIA (TIA), AND CEREB INFRC W 06/08/2015 МАРИЯ ROBIN MD, Ot Z91. 14 PATIENT'S OTHER NONCOMPLIANCE WITH MEDIC 07/04/2015 PERKINS DO, AWA K Ot A41.9 07/04/2015 PERKINS DO, AWA K Ot E11.43 07/04/2015 PERKINS DO, AWA K Ot E11.65 07/04/2015 PERKINS DO, AWA K Ot E78.0 07/04/2015 PERKINS DO, AWA K Ot E86.0 07/04/2015 PERKINS DO, AWA K Ot F17.21 0 07/04/2015 PERKINS DO, AWA K Ot F31.9 [...] DEHYDRATION 07/07/2015 PERKINS DO, AWA K Ot F17.21 0 NICOTINE DEPENDENCE, CIGARETTES, UNCOMPL 07/07/2015 PERKINS DO AWA K Ot F31.9 BIPOLAR DISORDER, UNSPECIFIED 07/07/2015 MADDIE HODGE AWA K Ot I10 ESSENTIAL (PRIMARY) HYPERTENSION 07/07/2015 MADDIE HODGE AWA K Ot I95.9 HYPOTENSION, UNSPECIFIED 07/07/2015 MADDIE HODGE AWA K Ot K31.84 GASTROPARESIS 07/07/2015 PERKINS DO AWA K Ot N17.9 ACUTE KIDNEY FAILURE, UNSPECIFIED 07/07/2015 MADDIE HODGE AWA K Ot N39.0 URINARY TRACT INFECTION, SITE NOT SPECIF 07/07/2015 MADDIE HODGE AWA K Ot R65.20 SEVERE SEPSIS WITHOUT SEPTIC SHOCK 07/07/2015 PERKINS AWA K Ot Z79.4 SEC[employer] ENGLISH [employer] (CURRENT) USE OF INSULIN 07/07/2015 PERKINS DO AWA K Ot Z86.73 PRSNL HX OF TIA (TIA), AND CEREB INFRC W 07/07/2015 MADDEI HODGE AWA K Ot Z91.19 PATIENT'S NONCOMPLIANCE W [facility] TR 08/20/2016 JALEN PEREZ MD Ot A41.9 SEPSIS, UNSPECIFIED ORGANISM 08/20/2016 JALEN PEREZ MD Ot E11.4 0 TYPE 2 DIABETES MELLITUS WITH DIABETIC N 08/20/2016 JALEN PEREZ MD, Ot E11.6 5 TYPE 2 DIABETES MELLITUS WITH HYPERGLYCE 08/20/2016 JALEN PEREZ MD, Ot E78.0 0 PURE HYPERCHOLESTEROLEMIA, UNSPECIFIED 08/20/2016 JALEN PEREZ MD, Ot E87.6 HYPOKALEMIA 08/20/2016 JALEN PEREZ MD, Ot F17.2 10 NICOTINE DEPENDENCE, CIGARETTES, UNCOMPL 08/20/2016 JALEN PEREZ MD Ot F32.9 MAJOR DEPRESSIVE DISORDER, SINGLE EPISOD 08/20/2016 JALEN PEREZ MD, Ot F41.9 ANXIETY DISORDER, UNSPECIFIED 08/20/2016 JALEN PEREZ MD, Ot F60.9 PERSONALITY DISORDER, UNSPECIFIED 08/20/2016 JALEN PEREZ MD, Ot G47.9 SLEEP DISORDER, UNSPECIFIED 08/20/2016 JALEN PEREZ MD, Ot I10 ESSENTIAL (PRIMARY) HYPERTENSION 08/20/2016 JALEN PEREZ MD Ot I65.2 3 OCCLUSION AND STENOSIS OF BILATERAL [place] 08/20/2016 JALEN PEREZ MD Ot J45.9 09 UNSPECIFIED ASTHMA, UNCOMPLICATED 08/20/2016 JALEN PEREZ MD Ot M54.9 DORSALGIA, UNSPECIFIED 08/20/2016 JALEN PEREZ MD, Ot N39.0 URINARY TRACT INFECTION, SITE NOT SPECIF 08/20/2016 JALEN PEREZ MD Ot Z79.4 SENIOR LIVING (CURRENT) USE OF INSULIN 08/20/2016 JALEN PEREZ MD Ot Z86.7 3 PRSNL HX OF TIA (TIA), AND CEREB INFRC W 08/20/2016 JALEN PEREZ MD Ot Z91.1 4 PATIENT'S OTHER NONCOMPLIANCE WITH MEDIC 12/28/2016 LANA MARINELLI Ot E11.40 TYPE 2 DIABETES MELLITUS WITH DIABETIC N 12/28/2016 LANA MARINELLI Ot F17.210 NICOTINE DEPENDENCE, CIGARETTES, UNCOMPL 12/28/2016 LANA MARINELLI Ot I 10 ESSENTIAL (PRIMARY) HYPERTENSION 12/28/2016 LANA MARINELLI Ot J45.909 UNSPECIFIED ASTHMA, UNCOMPLICATED 12/28/2016 LANA MARINELLI Ot M25.471 EFFUSION, RIGHT ANKLE 12/28/2016 LANA MARINELLI Ot S93.401A SPRAIN OF UNSPECIFIED LIGAMENT OF RIGHT 12/28/2016 LANA MARINELLI Ot X50.0XXA OVEREXERTION FROM STRENUOUS MOVEMENT OR 12/28/2016 LANA MARINELLI Ot Z79.4 [employer] ENGLISH [employer] (CURRENT) USE OF INSULIN 12/28/2016 LANA MARINELLI Ot Z79.82 SENIOR LIVING (CURRENT) USE OF ASPIRIN 12/28/2016 LANA MARINELLI Ot Z86.73 PRSNL HX OF TIA (TIA), AND CEREB INFRC W 01/03/2017 LANA MARINELLI Ot E11.40 TYPE 2 DIABETES MELLITUS WITH DIABETIC N 01/03/2017 LANA MARINELLI Ot F17.210 NICOTINE DEPENDENCE, CIGARETTES, UNCOMPL 01/03/2017 LANA MARINELLI Ot I 10 ESSENTIAL (PRIMARY) HYPERTENSION 01/03/2017 LANA MARINELLI Ot J45.909 UNSPECIFIED ASTHMA, UNCOMPLICATED 01/03/2017 MAGDA DOSHI LANA L Ot M25.471 EFFUSION, RIGHT ANKLE 01/03/2017 LANA MARINELLI Ot S93.401A SPRAIN OF UNSPECIFIED LIGAMENT OF RIGHT 01/03/2017 LANA MARINELLI Ot X50.0XXA OVEREXERTION FROM STRENUOUS MOVEMENT OR 01/03/2017 LANA MARINELLI Ot Z79.4 SEC[employer] ENGLISH [employer] (CURRENT) USE OF INSULIN 01/03/2017 LANA MARINELLI Ot Z79.82 SENIOR LIVING (CURRENT) USE OF ASPIRIN 01/03/2017 LANA MARINELLI Ot Z86.73 PRSNL HX OF TIA (TIA), AND CEREB INFRC W 01/31/2017 THAO TOBAR MD Ot E11. 40 TYPE 2 DIABETES MELLITUS WITH DIABETIC N 01/31/2017 THAO TOBAR MD Ot E78. 00 PURE HYPERCHOLESTEROLEMIA, UNSPECIFIED 01/31/2017 THAO TOBAR MD Ot F32. 9 MAJOR DEPRESSIVE DISORDER, SINGLE EPISOD 01/31/2017 THAO TOBAR MD Ot F41. 9 ANXIETY DISORDER, UNSPECIFIED 01/31/2017 THOA TOBAR MD Ot F60. 89 OTHER SPECIFIC PERSONALITY DISORDERS 01/31/2017 THAO TOBAR MD Ot G47. 9 SLEEP DISORDER, UNSPECIFIED 01/31/2017 THAO TOBAR MD Ot I10 ESSENTIAL (PRIMARY) HYPERTENSION 01/31/2017 THAO TOBAR MD Ot J45.909 UNSPECIFIED ASTHMA, UNCOMPLICATED 01/31/2017 THAO TOBAR MD Ot K21. 9 GASTRO-ESOPHAGEAL REFLUX DISEASE WITHOUT 01/31/2017 THAO TOBAR MD Ot R51 HEADACHE 01/31/2017 THAO TOBAR MD Ot Z79. 4 SENIOR LIVING (CURRENT) USE OF INSULIN 01/31/2017 THAO TOBAR MD Ot Z79. 82 SEC[employer] ENGLISH [employer] (CURRENT) USE OF ASPIRIN 01/31/2017 THAO TOBAR MD Ot Z86. 73 PRSNL HX OF TIA (TIA), AND CEREB INFRC W 01/31/2017 THAO TOBAR MD Ot Z87.891 PERSONAL HISTORY OF NICOTINE DEPENDENCE 01/31/2017 THAO TOBAR MD Ot Z98. 51 TUBAL LIGATION STATUS 01/31/2017 THAO TOBAR MD Ot Z98.890 OTHER SPECIFIED POSTPROCEDURAL STATES 02/04/2017 THAO TOBAR MD Ot E11. 40 TYPE 2 DIABETES MELLITUS WITH DIABETIC N 02/04/2017 THAO TOBAR MD Ot E78. 00 PURE HYPERCHOLESTEROLEMIA, UNSPECIFIED 02/04/2017 THAO TOBAR MD Ot F32. 9 MAJOR DEPRESSIVE DISORDER, SINGLE EPISOD 02/04/2017 THAO TOBAR MD Ot F41. 9 ANXIETY DISORDER, UNSPECIFIED 02/04/2017 THAO TOBAR MD Ot F60. 89 OTHER SPECIFIC PERSONALITY DISORDERS 02/04/2017 THAO TOBAR MD Ot G47. 9 SLEEP DISORDER, UNSPECIFIED 02/04/2017 THAO TOBAR MD Ot I10 ESSENTIAL (PRIMARY) HYPERTENSION 02/04/2017 THAO TOBAR MD Ot J45.909 UNSPECIFIED ASTHMA, UNCOMPLICATED 02/04/2017 THAO TOBAR MD Ot K21. 9 GASTRO-ESOPHAGEAL REFLUX DISEASE WITHOUT 02/04/2017 THAO TOBAR MD Ot R51 HEADACHE 02/04/2017 THAO TOBAR MD Ot Z79. 4 SENIOR LIVING (CURRENT) USE OF INSULIN 02/04/2017 THAO TOBAR MD Ot Z79. 82 SENIOR LIVING (CURRENT) USE OF ASPIRIN 02/04/2017 THAO TOBAR MD Ot Z86. 73 PRSNL HX OF TIA (TIA), AND CEREB INFRC W 02/04/2017 THAO TOBAR MD Ot Z87.891 PERSONAL HISTORY OF NICOTINE DEPENDENCE 02/04/2017 THAO TOBAR MD Ot Z98. 51 TUBAL LIGATION STATUS 02/04/2017 THAO TOBAR MD Ot Z98.890 OTHER SPECIFIED POSTPROCEDURAL STATES 01/19/2018 BARTANYA MAGALLANES DO Ot A08.4 VIRAL INTESTINAL INFECTION, UNSPECIFIED 01/19/2018 TANYA KOHLER DO Ot D72.829 ELEVATED WHITE BLOOD CELL COUNT, UNSPECI 01/19/2018 TANYA KOLHER DO Ot E11.10 TYPE 2 DIABETES MELLITUS WITH KETOACIDOS 01/19/2018 TANYA KOHLER DO Ot E11.43 TYPE 2 DIABETES W DIABETIC AUTONOMIC (PO 01/19/2018 TANYA KOHLER DO Ot E78.00 PURE HYPERCHOLESTEROLEMIA, UNSPECIFIED 01/19/2018 TANYA KOHLER DO Ot E83.52 HYPERCALCEMIA 01/19/2018 TANYA KOHLER DO Ot E86.0 DEHYDRATION 01/19/2018 TANYA KOHLER DO Ot E87.1 HYPO-OSMOLALITY AND HYPONATREMIA 01/19/2018 TANYA KOHLER DO Ot E87.2 ACIDOSIS 01/19/2018 TANYA KOHLER DO Ot E87.6 HYPOKALEMIA 01/19/2018 TANYA KOHLER DO Ot F17.210 NICOTINE DEPENDENCE, CIGARETTES, UNCOMPL 01/19/2018 TANYA KOHLER DO Ot F32.9 MAJOR DEPRESSIVE DISORDER, SINGLE EPISOD 01/19/2018 TANYA KOHLER DO Ot F41.9 ANXIETY DISORDER, UNSPECIFIED 01/19/2018 TANYA KOHLER DO Ot F60.9 PERSONALITY DISORDER, UNSPECIFIED 01/19/2018 TANYA KOHLER DO Ot G43.909 MIGRAINE, UNSP, NOT INTRACTABLE, WITHOUT 01/19/2018 TANYA KOHLER DO Ot G47.9 SLEEP DISORDER, UNSPECIFIED 01/19/2018 TANYA KOHLER DO Ot I10 ESSENTIAL (PRIMARY) HYPERTENSION 01/19/2018 TANYA KOHLER DO Ot I25.10 ATHSCL HEART DISEASE OF [place] CORONARY 01/19/2018 TANYA KOHLER DO Ot J45.909 UNSPECIFIED ASTHMA, UNCOMPLICATED 01/19/2018 TANYA KOHLER DO Ot K21.9 GASTRO-ESOPHAGEAL REFLUX DISEASE WITHOUT 01/19/2018 TANYA KOHLER DO Ot M54.9 DORSALGIA, UNSPECIFIED 01/19/2018 TANYA KOHLER DO Ot N28.9 DISORDER OF KIDNEY AND URETER, UNSPECIFI 01/19/2018 TANYA KOHLER DO Ot Z79.4 SENIOR LIVING (CURRENT) USE OF INSULIN 01/19/2018 TANYA KOHLER DO, Ot Z86.73 PRSNL HX OF TIA (TIA), AND CEREB INFRC W 01/19/2018 TANYA KOHLER DO Ot A08.4 VIRAL INTESTINAL INFECTION, UNSPECIFIED 01/19/2018 TANYA KOHLER DO Ot D72.829 ELEVATED WHITE BLOOD CELL COUNT, UNSPECI 01/19/2018 TANYA KOHLER DO Ot E11.10 TYPE 2 DIABETES MELLITUS WITH KETOACIDOS 01/19/2018 TANYA KOHLER DO Ot E11.43 TYPE 2 DIABETES W DIABETIC AUTONOMIC (PO 01/19/2018 TANYA KOHLER DO Ot E78.00 PURE HYPERCHOLESTEROLEMIA, UNSPECIFIED 01/19/2018 TANYA KOHLER DO Ot E83.52 HYPERCALCEMIA 01/19/2018 TANYA KOHLER DO Ot E86.0 DEHYDRATION 01/19/2018 TANYA KOHLER DO Ot E87.1 HYPO-OSMOLALITY AND HYPONATREMIA 01/19/2018 TANYA KOHLER DO Ot E87.2 ACIDOSIS 01/19/2018 TANYA KOHLER DO Ot E87.6 HYPOKALEMIA 01/19/2018 TANYA KOHLER DO Ot F17.210 NICOTINE DEPENDENCE, CIGARETTES, UNCOMPL 01/19/2018 TANYA KOHLER DO Ot F32.9 MAJOR DEPRESSIVE DISORDER, SINGLE EPISOD 01/19/2018 TANYA KOHLER DO Ot F39 UNSPECIFIED MOOD [AFFECTIVE] DISORDER 01/19/2018 TANYA KOHLER DO Ot F41.9 ANXIETY DISORDER, UNSPECIFIED 01/19/2018 TANYA KOHLER DO Ot F60.9 PERSONALITY DISORDER, UNSPECIFIED 01/19/2018 TANYA KOHLER DO Ot G43.909 MIGRAINE, UNSP, NOT INTRACTABLE, WITHOUT 01/19/2018 TANYA KOHLER DO Ot G47.9 SLEEP DISORDER, UNSPECIFIED 01/19/2018 TANYA KOHLER DO Ot I10 ESSENTIAL (PRIMARY) HYPERTENSION 01/19/2018 TANYA KOHLER DO Ot I25.10 ATHSCL HEART DISEASE OF [place] CORONARY 01/19/2018 TANYA KOHLER DO Ot J45.909 UNSPECIFIED ASTHMA, UNCOMPLICATED 01/19/2018 TANYA KOHLER DO Ot K21.9 GASTRO-ESOPHAGEAL REFLUX DISEASE WITHOUT 01/19/2018 TANYA KOHLER DO Ot M54.9 DORSALGIA, UNSPECIFIED 01/19/2018 TANYA KOHLER DO Ot N28.9 DISORDER OF KIDNEY AND URETER, UNSPECIFI 01/19/2018 TANYA KOHLER DO Ot Z79.4 SEC[employer]ARY ENGLISH TE[employer]ER (CURRENT) USE OF INSULIN 01/19/2018 TANYA KOHLER DO Ot Z86.73 PRSNL HX OF TIA (TIA), AND CEREB INFRC W 11/18/2018 TANYA KOHLER DO Ot A08.4 VIRAL INTESTINAL INFECTION, UNSPECIFIED 11/18/2018 TANYA KOHLER DO Ot D72.829 ELEVATED WHITE BLOOD CELL COUNT, UNSPECI 11/18/2018 TANYA KOHLER DO Ot E11.10 TYPE 2 DIABETES MELLITUS WITH KETOACIDOS 11/18/2018 TANYA KOHLER DO Ot E11.43 TYPE 2 DIABETES W DIABETIC AUTONOMIC (PO 11/18/2018 TANYA KOHLER DO Ot E78.00 PURE HYPERCHOLESTEROLEMIA, UNSPECIFIED 11/18/2018 TANYA KOHLER DO Ot E83.52 HYPERCALCEMIA 11/18/2018 TANYA KOHLER DO Ot E86.0 DEHYDRATION 11/18/2018 TANYA KOHLER DO Ot E87.1 HYPO-OSMOLALITY AND HYPONATREMIA 11/18/2018 TANYA KOHLER DO Ot E87.2 ACIDOSIS 11/18/2018 TANYA KOHLER DO Ot E87.6 HYPOKALEMIA 11/18/2018 TANYA KOHLER DO Ot F17.210 NICOTINE DEPENDENCE, CIGARETTES, UNCOMPL 11/18/2018 TANYA KOHLER DO Ot F32.9 MAJOR DEPRESSIVE DISORDER, SINGLE EPISOD 11/18/2018 TANYA KOHLER DO Ot F41.9 ANXIETY DISORDER, UNSPECIFIED 11/18/2018 TANYA KOHLER DO Ot F60.9 PERSONALITY DISORDER, UNSPECIFIED 11/18/2018 TANYA KOHLER DO Ot G43.909 MIGRAINE, UNSP, NOT INTRACTABLE, WITHOUT 11/18/2018 TANYA KOHLER DO Ot G47.9 SLEEP DISORDER, UNSPECIFIED 11/18/2018 TANYA KOHLER DO Ot I10 ESSENTIAL (PRIMARY) HYPERTENSION 11/18/2018 TANYA KOHLER DO Ot I25.10 ATHSCL HEART DISEASE OF [place] CORONARY 11/18/2018 TANYA KOHLER DO Ot J45.909 UNSPECIFIED ASTHMA, UNCOMPLICATED 11/18/2018 TANYA KOHLER DO Ot K21.9 GASTRO-ESOPHAGEAL REFLUX DISEASE WITHOUT 11/18/2018 TANYA KOHLER DO Ot M54.9 DORSALGIA, UNSPECIFIED 11/18/2018 TANYA KOHLER DO Ot N28.9 DISORDER OF KIDNEY AND URETER, UNSPECIFI 11/18/2018 TANYA KOHLER DO Ot Z79.4 SENIOR LIVING (CURRENT) USE OF INSULIN 11/18/2018 TANYA KOHLER DO Ot Z86.73 PRSNL HX OF TIA (TIA), AND CEREB INFRC W 11/18/2018 TANYA KOHLER DO Ot A08.4 VIRAL INTESTINAL INFECTION, UNSPECIFIED 11/18/2018 TANYA KOHLER DO Ot D72.829 ELEVATED WHITE BLOOD CELL COUNT, UNSPECI 11/18/2018 TANYA KOHLER DO Ot E11.10 TYPE 2 DIABETES MELLITUS WITH KETOACIDOS 11/18/2018 TANYA KOHLER DO Ot E11.43 TYPE 2 DIABETES W DIABETIC AUTONOMIC (PO 11/18/2018 TANYA KOHLER DO Ot E78.00 PURE HYPERCHOLESTEROLEMIA, UNSPECIFIED 11/18/2018 TANYA KOHLER DO Ot E83.52 HYPERCALCEMIA 11/18/2018 TANYA KOHLER DO Ot E86.0 DEHYDRATION 11/18/2018 TANYA KOHLER DO Ot E87.1 HYPO-OSMOLALITY AND HYPONATREMIA 11/18/2018 [facility] TANYA HODGE Ot E87.2 ACIDOSIS 11/18/2018 WILDERTANYA Gonzalez DO Ot E87.6 HYPOKALEMIA 11/18/2018 WILDERTANYA Gonzalez DO Ot F17.210 NICOTINE DEPENDENCE, CIGARETTES, UNCOMPL 11/18/2018 TANYA KOHLER DO Ot F32.9 MAJOR DEPRESSIVE DISORDER, SINGLE EPISOD 11/18/2018 TANYA KOHLER DO Ot F41.9 ANXIETY DISORDER, UNSPECIFIED 11/18/2018 WILDERTANYA Gonzalez DO Ot F60.9 PERSONALITY DISORDER, UNSPECIFIED 11/18/2018 WILDERTANYA Gonzalez DO Ot G43.909 MIGRAINE, UNSP, NOT INTRACTABLE, WITHOUT 11/18/2018 WILDERTANYA Gonzalez DO Ot G47.9 SLEEP DISORDER, UNSPECIFIED 11/18/2018 WILDERTANYA Gonzalez DO Ot I10 ESSENTIAL (PRIMARY) HYPERTENSION 11/18/2018 WILDERTANYA Gonzalez DO Ot I25.10 ATHSCL HEART DISEASE OF [place] CORONARY 11/18/2018 WILDERTANYA Gonzalez DO Ot J45.909 UNSPECIFIED ASTHMA, UNCOMPLICATED 11/18/2018 TANYA KOHLER DO Ot K21.9 GASTRO-ESOPHAGEAL REFLUX DISEASE WITHOUT 11/18/2018 WILDERTANYA Gonzalez DO Ot M54.9 DORSALGIA, UNSPECIFIED 11/18/2018 TANYA KOHLER DO Ot N28.9 DISORDER OF KIDNEY AND URETER, UNSPECIFI 11/18/2018 TANYA KOHLER DO Ot Z79.4 SENIOR LIVING (CURRENT) USE OF INSULIN 11/18/2018 TANYA KOHLER DO Ot Z86.73 PRSNL HX OF TIA (TIA), AND CEREB INFRC W 05/23/2019 YUMIKO WATSON DO Ot E11.00 TYPE 2 DIAB W HYPROSM W/O NONKET HYPRGLY 05/23/2019 YUMIKO WATSON DO Ot E11.40 TYPE 2 DIABETES MELLITUS WITH DIABETIC N 05/23/2019 YUMIKO WATSON DO Ot E78.00 PURE HYPERCHOLESTEROLEMIA, UNSPECIFIED 05/23/2019 SHIRLEY HODGE YUMIKO Ot F17.21 0 NICOTINE DEPENDENCE, CIGARETTES, UNCOMPL 05/23/2019 JOSE ELIAS WATSON DOI Ot F32.9 MAJOR DEPRESSIVE DISORDER, SINGLE EPISOD 05/23/2019 SHIRLEY HODGE YUMIKO Ot F41.9 ANXIETY DISORDER, UNSPECIFIED 05/23/2019 SHIRLEY HODGE YUMIKO Ot F60.9 PERSONALITY DISORDER, UNSPECIFIED 05/23/2019 JOSE ELIAS WATSON DOI Ot G43.90 9 MIGRAINE, UNSP, NOT INTRACTABLE, WITHOUT 05/23/2019 SHIRLEY HODGE YUMIKO Ot I10 ESSENTIAL (PRIMARY) HYPERTENSION 05/23/2019 SHIRLEY HODGE YUMIKO Ot I25.10 ATHSCL HEART DISEASE OF [place] CORONARY 05/23/2019 JOSE ELIAS WATSON DOI Ot J45.90 9 UNSPECIFIED ASTHMA, UNCOMPLICATED 05/23/2019 SHIRLEY HODGE YUMIKO Ot K21.9 GASTRO-ESOPHAGEAL REFLUX DISEASE WITHOUT 05/23/2019 SHIRLEY HODGE YUMIKO Ot N19 UNSPECIFIED KIDNEY FAILURE 05/23/2019 JOSE ELIAS WATSON DOI Ot N39.0 URINARY TRACT INFECTION, SITE NOT SPECIF 05/23/2019 JOSE ELIAS WATSON DOI Ot R21 RASH AND OTHER NONSPECIFIC SKIN ERUPTION 05/23/2019 JOSE ELIAS WATSON DOI Ot Z79.4 SEC[employer] EN[employer]ISH [employer] (CURRENT) USE OF INSULIN 05/23/2019 JOSE ELIAS WATSON DOI Ot Z91.19 PATIENT'S NONCOMPLIANCE W [facility] TR 05/23/2019 SHIRLEY HODGE YUMIKO Ot E11.00 TYPE 2 DIAB W HYPROSM W/O NONKET HYPRGLY 05/23/2019 JOSE ELIAS WATSON DOI Ot E11.40 TYPE 2 DIABETES MELLITUS WITH DIABETIC N 05/23/2019 SHIRLEY HODGE YUMIKO Ot E78.00 PURE HYPERCHOLESTEROLEMIA, UNSPECIFIED 05/23/2019 SHIRLEY HODGE YUMIKO Ot F17.21 0 NICOTINE DEPENDENCE, CIGARETTES, UNCOMPL 05/23/2019 JOSE ELIAS WATSON DOI Ot F32.9 MAJOR DEPRESSIVE DISORDER, SINGLE EPISOD 05/23/2019 SHIRLEY HODGE YUMIKO Ot F41.9 ANXIETY DISORDER, UNSPECIFIED 05/23/2019 SHIRLEY HODGE YUMIKO Ot F60.9 PERSONALITY DISORDER, UNSPECIFIED 05/23/2019 JOSE ELIAS WATSON DOI Ot G43.90 9 MIGRAINE, UNSP, NOT INTRACTABLE, WITHOUT 05/23/2019 SHIRLEY HODGE YUMKIO Ot I10 ESSENTIAL (PRIMARY) HYPERTENSION 05/23/2019 YUMIKO WATSON DO Ot I25.10 ATHSCL HEART DISEASE OF [place] CORONARY 05/23/2019 JOSE ELIAS WATSON DOI Ot J45.90 9 UNSPECIFIED ASTHMA, UNCOMPLICATED 05/23/2019 JOSE ELIAS WATSON DOI Ot K21.9 GASTRO-ESOPHAGEAL REFLUX DISEASE WITHOUT 05/23/2019 JOSE ELIAS WATSON DOI Ot N19 UNSPECIFIED KIDNEY FAILURE 05/23/2019 YUMIKO WATSON DO Ot N39.0 URINARY TRACT INFECTION, SITE NOT SPECIF 05/23/2019 YUMIKO WATSON DO Ot R21 RASH AND OTHER NONSPECIFIC SKIN ERUPTION 05/23/2019 YUMIKO WATSON DO Ot Z79.4 SEC[employer] EN[employer]ISH [employer] (CURRENT) USE OF INSULIN 05/23/2019 JOSE ELIAS WATSON DOI Ot Z91.19 PATIENT'S NONCOMPLIANCE W [facility] 05/30/2019 JOSE ELIAS WATSON DOI Ot E11.00 TYPE 2 DIAB W HYPROSM W/O NONKET HYPRGLY 05/30/2019 JOSE ELIAS WATSON DOI Ot E11.40 TYPE 2 DIABETES MELLITUS WITH DIABETIC N 05/30/2019 SHIRLEY HODGE YUMIKO Ot E78.00 PURE HYPERCHOLESTEROLEMIA, UNSPECIFIED 05/30/2019 JOSE ELIAS WATSON DOI Ot F17.21 0 NICOTINE DEPENDENCE, CIGARETTES, UNCOMPL 05/30/2019 JOSE ELIAS WATSON DOI Ot F32.9 MAJOR DEPRESSIVE DISORDER, SINGLE EPISOD 05/30/2019 SHIRLEY HODGE YUMIKO Ot F41.9 ANXIETY DISORDER, UNSPECIFIED 05/30/2019 JOSE ELIAS WATSON DOI Ot F60.9 PERSONALITY DISORDER, UNSPECIFIED 05/30/2019 SHIRLEY HODGE YUMIKO Ot G43.90 9 MIGRAINE, UNSP, NOT INTRACTABLE, WITHOUT 05/30/2019 SHIRLEY HODGE YUMIKO Ot I10 ESSENTIAL (PRIMARY) HYPERTENSION 05/30/2019 JOSE ELIAS WATSON DOI Ot I25.10 ATHSCL HEART DISEASE OF [place] CORONARY 05/30/2019 SHIRLEY HODGE YUMIKO Ot J45.90 9 UNSPECIFIED ASTHMA, UNCOMPLICATED 05/30/2019 SHIRLEY HODGE YUMIKO Ot K21.9 GASTRO-ESOPHAGEAL REFLUX DISEASE WITHOUT 05/30/2019 JOSE ELIAS WATSON DOI Ot N19 UNSPECIFIED KIDNEY FAILURE 05/30/2019 YUMIKO WATSON DO Ot N39.0 URINARY TRACT INFECTION, SITE NOT SPECIF 05/30/2019 YUMIKO WATSON DO Ot R21 RASH AND OTHER NONSPECIFIC SKIN ERUPTION 05/30/2019 YUMIKO WATSON DO Ot Z79.4 SENIOR LIVING (CURRENT) USE OF INSULIN 05/30/2019 YUMIKO WATSON DO Ot Z91.19 PATIENT'S NONCOMPLIANCE W [facility] 06/29/2019 YUMIKO WATSON DO Ot A41.9 SEPSIS, UNSPECIFIED ORGANISM 06/29/2019 YUMIKO WATSON DO Ot D64.9 ANEMIA, UNSPECIFIED 06/29/2019 YUMIKO WATSON DO Ot E11.00 TYPE 2 DIAB W HYPROSM W/O NONKET HYPRGLY 06/29/2019 YUMIKO WATSON DO Ot E11.40 TYPE 2 DIABETES MELLITUS WITH DIABETIC N 06/29/2019 JOSE ELIAS WATSON DOI Ot E11.43 TYPE 2 DIABETES W DIABETIC AUTONOMIC (PO 06/29/2019 YUMIKO WATSON DO Ot E78.00 PURE HYPERCHOLESTEROLEMIA, UNSPECIFIED 06/29/2019 YUMIKO WATSON DO Ot E83.52 HYPERCALCEMIA 06/29/2019 YUMIKO WATSON DO Ot E86.0 DEHYDRATION 06/29/2019 JOSE ELIAS WATSON DOI Ot E87.1 HYPO-OSMOLALITY AND HYPONATREMIA 06/29/2019 YUMIKO WATSON DO Ot E87.2 ACIDOSIS 06/29/2019 YUMIKO WATSON DO Ot F32.9 MAJOR DEPRESSIVE DISORDER, SINGLE EPISOD 06/29/2019 JOSE ELIAS WATSON DOI Ot F41.9 ANXIETY DISORDER, UNSPECIFIED 06/29/2019 YUMIKO WATSON DO Ot F60.9 PERSONALITY DISORDER, UNSPECIFIED 06/29/2019 YUMIKO WATSON DO Ot G43.90 9 MIGRAINE, UNSP, NOT INTRACTABLE, WITHOUT 06/29/2019 JOSE ELIAS WATSON DOI Ot G47.9 SLEEP DISORDER, UNSPECIFIED 06/29/2019 YUMIKO WATSON DO Ot I10 ESSENTIAL (PRIMARY) HYPERTENSION 06/29/2019 YUMIKO WATSON DO Ot I25.10 ATHSCL HEART DISEASE OF [place] CORONARY 06/29/2019 YUMIKO WATSON DO Ot 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 06/29/2019 YUMIKO WATSON DO Ot J18.1 LOBAR PNEUMONIA, UNSPECIFIED ORGANISM 06/29/2019 JOSE ELIAS WATSON DOI Ot J45.90 9 UNSPECIFIED ASTHMA, UNCOMPLICATED 06/29/2019 SHIRLEY HODGEYUMIKO Ot K21.9 GASTRO-ESOPHAGEAL REFLUX DISEASE WITHOUT 06/29/2019 SHIRLEY HODGEYUMIKO Ot M54.9 DORSALGIA, UNSPECIFIED 06/29/2019 SHIRLEY HODGEYUMIKO Ot N17.9 ACUTE KIDNEY FAILURE, UNSPECIFIED 06/29/2019 SHIRLEY HODGEYUMIKO Ot R65.20 SEVERE SEPSIS WITHOUT SEPTIC SHOCK 06/29/2019 WATSON YUMIKO HODGE Ot R79.1 ABNORMAL COAGULATION PROFILE 06/29/2019 WATSON YUMIKO HODGE Ot Z79.4 SENIOR LIVING (CURRENT) USE OF INSULIN 06/29/2019 WATSONYUMIKO YOUSSEF DO Ot Z86.71 1 PERSONAL HISTORY OF PULMONARY EMBOLISM 06/29/2019 WATSON YUMIKO Ot Z91.19 PATIENT'S NONCOMPLIANCE W [facility] Procedures Code Description Performed By Kehinde shipman On IN SERTION OF INFUSION DEV INTO SUP VENA 06/04/2015 Results Test Result Range Capillary blood glucose measurement by g lucometer (mass/volume) - 08/18/16 19:12 Capillary blood glucose measurement by glucometer (mas s/volume) 383 mg/dL 70-110 Complete blood count (CBC) with automate d white blood cell (WBC) differential - 08/18/16 19:15 Blood leukocytes automated count (number/volume) 10.7 10*3/uL 4.3-11.0 Blood erythrocytes automated count (number/volume) 4.86 10*6/uL 4.35-5.85 Venous blood hemoglobin measurement (mass/volume) 15.1 g/dL 11.5-16.0 Blood hematocrit (volume fraction) 42 % 35-52 Automated erythrocyte mean corpuscular volume 86 [ foz_us] 80-99 Automated erythrocyte mean corpuscular h emoglobin (mass per erythrocyte) 31 pg 25-34 Automated erythrocyte mean corpuscular h emoglobin concentration measurement (mass/volume) 36 g/dL 32-36 Automated erythrocyte distribution width ratio 12. 3 % 10.0- 14.5 Automated blood platelet count (count/volume) 209 10*3/uL 130-400 Automated blood platelet mean volume measurement 10.5 [foz_us] 7.4-10.4 Automated blood neutrophils/100 leukocytes 84 % 42-75 Automated blood lymphocytes/100 leukocytes 8 % 12-44 Blood monocytes/100 leukocytes 8 % 0-12 Automated blood eosinophils/100 leukocytes 0 % 0-10 Automated blood basophils/100 leukocytes 0 % 0-10 Blood neutrophils automated count (number/volume) 9.0 10*3 1.8-7.8 Blood lymphocytes automated count (number/volume) 0.8 10*3 1.0-4.0 Blood monocytes automated count (number/volume) 0. 8 10*3 0.0-1.0 Automated eosinophil count 0.0 10*3/uL 0 .0-0.3 Automated blood basophil count (count/volume) 0.0 10*3/uL 0.0-0.1 PT panel in platelet poor plasma by coag ulation assay - 08/18/16 19:15 Prothrombin time (PT) in platelet poor plasma by coagu lation assay 12.5 s 12.2-14.7 INR in platelet poor plasma or blood by coagulation as say 1.0 0.8-1.4 Activated partial thromboplastin time (a PTT) in platelet poor plasma bycoagulation assay - 08/18/16 19:15 Activated partial thromboplastin time (a PTT) in platelet poor plasma bycoagulation assay 22 s 24-35 Blood lactic acid measurement (moles/vol ume) - 08/18/16 19:15 Blood lactic acid measurement (moles/volume) 1.7 m mol/L 0.5- 2.0 Comprehensive metabolic panel - 08/18/16 19:15 Serum or plasma sodium measurement (moles/volume) 133 mmol/L 135-145 Serum or plasma potassium measurement (moles/volume) 4.2 mmol/L 3.6-5.0 Serum or plasma chloride measurement (moles/volume) 96 mmol/L 98-107 Carbon dioxide 16 mmol/L 21-32 Serum or plasma anion gap determination (moles/volume) 21 mmol/L 5-14 Serum or plasma urea nitrogen measurement (mass/volume ) 44 mg/dL 7-18 Serum or plasma creatinine measurement (mass/volume) 1.45 mg/dL 0.60-1.30 Serum or plasma urea nitrogen/creatinine mass ratio 30 NRG Serum or plasma creatinine measurement w ith calculation of estimated glomerular filtration rate 38 NRG Serum or plasma glucose measurement (mass/volume) 472 mg/dL 70-105 Serum or plasma calcium measurement (mass/volume) 11.6 mg/dL 8.5-10.1 Serum or plasma total bilirubin measurement (mass/volu me) 1.2 mg/dL 0.1-1.0 Serum or plasma alkaline phosphatase [place] surement (enzymatic activity/volume) 119 U/L 40-136 Serum or plasma aspartate aminotransfera se measurement (enzymatic activity/volume) 21 U/L 5-34 Serum or plasma alanine aminotransferase measurement (enzymatic activity/volume) 18 U/L 0-55 Serum or plasma protein measurement (mass/volume) 7.8 g/dL 6.4-8.2 Serum or plasma albumin measurement (mass/volume) 4.1 g/dL 3.2-4.5 Lipase - 08/18/16 19:15 Lipase 13 U/L 8-78 Bacterial blood culture - 08/18/16 19:15 Bacterial blood culture NG NRG Bacterial blood culture - 08/18/16 19:47 FREE TEXT EXTERNAL SENSITIVITY REPORTED 08/20 06:15 NRG QUANTITY OF GROWTH Isolated NR Bacterial blood culture [id number] [facility] Bacterial susceptibility panel - 7 19:47 Gentamicin susceptibility test by minimum inhibitory c oncentration <= NRG Trimethoprim/sulfamethoxazole susceptibi lity test by minimum inhibitoryconcentration <= NRG Ampicillin susceptibility test by minimum inhibitory c oncentration <= NRG Tobramycin susceptibility test by minimum inhibitory c oncentration <= NRG Cefazolin susceptibility test by minimum inhibitory co ncentration <= NRG Ceftriaxone susceptibility test by minimum inhibitory concentration <= NRG Ampicillin/sulbactam susceptibility test by minimum inhibitory concentration <= NRG Piperacillin/tazobactam susceptibility t est by minimum inhibitory concentration <= NRG Ciprofloxacin susceptibility test by minimum inhibitor y concentration <= NRG Meropenem susceptibility test by minimum inhibitory co ncentration <= NRG Aztreonam susceptibility test by minimum inhibitory co ncentration <= NRG Extended spectrum beta lactamase (ESBL) producing bacteria susceptibility test by minimum inhibitory concentration - [facility] Capillary blood glucose measurement by g lucometer (mass/volume) - 08/18/16 19:48 Capillary blood glucose measurement by glucometer (mas s/volume) 368 mg/dL 70-110 Complete urinalysis with reflex to cultu re - 08/18/16 20:30 Urine color determination YELLOW NRG Urine clarity determination VERY CLOUDY NRG Urine pH measurement by test strip 5 5-9 Specific gravity of urine by test strip 1.015 1.016-1.022 Urine protein assay by test strip, semi-quantitative 3+ NEGATIVE Urine glucose detection by automated test strip 4+ NEGATIVE Erythrocytes detection in urine sediment by light micr oscopy 3+ NEGATIVE Urine ketones detection by automated test strip 4+ NEGATIVE Urine nitrite detection by test strip POSITIVE NEGATIVE Urine total bilirubin detection by test strip NEGA TIVE NEGATIVE Urine urobilinogen measurement by automated test strip (mass/volume) NORMAL NORMAL Urine leukocyte esterase detection by dipstick 3+ NEGATIVE Automated urine sediment erythrocyte cou nt by microscopy (number/high power field) [HPF] NRG Automated urine sediment leukocyte count by microscopy (number/high power field) > [HPF] NRG Bacteria detection in urine sediment by light microsco py MODERATE NRG Crystals detection in urine sediment by light microsco py NONE NRG Casts detection in urine sediment by light microscopy NONE NRG Mucus detection in urine sediment by light microscopy NEGATIVE NRG Complete urinalysis with reflex to culture YES NRG Bacterial urine culture - 08/18/16 20:30 Bacterial urine culture [id number] NRG COLONY COUNT >100,000/ML NRG FTX;REPORTABLE SENSITIVITY REPORTED 08/19/16 1700 NRG FREE TEXT ENTRY 2 PLUS, NRG FREE TEXT ENTRY 3 MIXED GRAM POSITIVES <10,000/ML NRG Bacterial susceptibility panel - 7 20:30 Gentamicin susceptibility test by minimum inhibitory c oncentration <= NRG Trimethoprim/sulfamethoxazole susceptibi lity test by minimum inhibitoryconcentration <= NRG Ampicillin susceptibility test by minimum inhibitory c oncentration <= NRG Tobramycin susceptibility test by minimum inhibitory c oncentration <= NRG Cefazolin susceptibility test by minimum inhibitory co ncentration <= NRG Ceftriaxone susceptibility test by minimum inhibitory concentration <= NRG Ampicillin/sulbactam susceptibility test by minimum inhibitory concentration <= NRG Piperacillin/tazobactam susceptibility t est by minimum inhibitory concentration <= NRG Ciprofloxacin susceptibility test by minimum inhibitor y concentration <= NRG Meropenem susceptibility test by minimum inhibitory co ncentration <= NRG Nitrofurantoin susceptibility test by mi nimum inhibitory concentration <= NRG Aztreonam susceptibility test by minimum inhibitory co ncentration <= NRG Extended spectrum beta lactamase (ESBL) producing bacteria susceptibility test by minimum inhibitory concentration - NRG Capillary blood glucose measurement by g lucometer (mass/volume) - 08/18/16 20:34 Capillary blood glucose measurement by glucometer (mas s/volume) 265 mg/dL 70-110 Capillary blood glucose measurement by g lucometer (mass/volume) - 08/18/16 22:06 Capillary blood glucose measurement by glucometer (mas s/volume) 249 mg/dL 70-110 Complete blood count (CBC) with automate d white blood cell (WBC) differential - 08/19/16 04:20 Blood leukocytes automated count (number/volume) 3.2 10*3/uL 4.3-11.0 Blood erythrocytes automated count (number/volume) 4.12 10*6/uL 4.35-5.85 Venous blood hemoglobin measurement (mass/volume) 12.6 g/dL 11.5-16.0 Blood hematocrit (volume fraction) 36 % 35-52 Automated erythrocyte mean corpuscular volume 88 [ foz_us] 80-99 Automated erythrocyte mean corpuscular h emoglobin (mass per erythrocyte) 31 pg 25-34 Automated erythrocyte mean corpuscular h emoglobin concentration measurement (mass/volume) 35 g/dL 32-36 Automated erythrocyte distribution width ratio 12. 2 % 10.0- 14.5 Automated blood platelet count (count/volume) 146 10*3/uL 130-400 Automated blood platelet mean volume measurement 10.9 [foz_us] 7.4-10.4 Automated blood neutrophils/100 leukocytes 83 % 42-75 Automated blood lymphocytes/100 leukocytes 16 % 12-44 Blood monocytes/100 leukocytes 1 % 0-12 Automated blood eosinophils/100 leukocytes 0 % 0-10 Automated blood basophils/100 leukocytes 0 % 0-10 Blood neutrophils automated count (number/volume) 2.7 10*3 1.8-7.8 Blood lymphocytes automated count (number/volume) 0.5 10*3 1.0-4.0 Blood monocytes automated count (number/volume) 0. 0 10*3 0.0-1.0 Automated eosinophil count 0.0 10*3/uL 0 .0-0.3 Automated blood basophil count (count/volume) 0.0 10*3/uL 0.0-0.1 Comprehensive metabolic panel - 08/19/16 04:20 Serum or plasma sodium measurement (moles/volume) 140 mmol/L 135-145 Serum or plasma potassium measurement (moles/volume) 2.9 mmol/L 3.6-5.0 Serum or plasma chloride measurement (moles/volume) 108 mmol/L 98-107 Carbon dioxide 21 mmol/L 21-32 Serum or plasma anion gap determination (moles/volume) 11 mmol/L 5-14 Serum or plasma urea nitrogen measurement (mass/volume ) 35 mg/dL 7-18 Serum or plasma creatinine measurement (mass/volume) 1.07 mg/dL 0.60-1.30 Serum or plasma urea nitrogen/creatinine mass ratio 33 NRG Serum or plasma creatinine measurement w ith calculation of estimated glomerular filtration rate 54 NRG Serum or plasma glucose measurement (mass/volume) 150 mg/dL 70-105 Serum or plasma calcium measurement (mass/volume) 10.1 mg/dL 8.5-10.1 Serum or plasma total bilirubin measurement (mass/volu me) 1.3 mg/dL 0.1-1.0 Serum or plasma alkaline phosphatase [place] surement (enzymatic activity/volume) 110 U/L 40-136 Serum or plasma aspartate aminotransfera se measurement (enzymatic activity/volume) 15 U/L 5-34 Serum or plasma alanine aminotransferase measurement (enzymatic activity/volume) 12 U/L 0-55 Serum or plasma protein measurement (mass/volume) 6.3 g/dL 6.4-8.2 Serum or plasma albumin measurement (mass/volume) 3.3 g/dL 3.2-4.5 Capillary blood glucose measurement by g lucometer (mass/volume) - 08/19/16 07:12 Capillary blood glucose measurement by glucometer (mas s/volume) 149 mg/dL 70-110 Capillary blood glucose measurement by g lucometer (mass/volume) - 08/19/16 09:56 Capillary blood glucose measurement by glucometer (mas s/volume) 201 mg/dL 70-110 Capillary blood glucose measurement by g lucometer (mass/volume) - 08/19/16 14:41 Capillary blood glucose measurement by glucometer (mas s/volume) 155 mg/dL 70-110 Capillary blood glucose measurement by g lucometer (mass/volume) - 08/19/16 20:49 Capillary blood glucose measurement by glucometer (mas s/volume) 153 mg/dL 70-110 Complete blood count (CBC) with automate d white blood cell (WBC) differential - 08/20/16 04:25 Blood leukocytes automated count (number/volume) 9.3 10*3/uL 4.3-11.0 Blood erythrocytes automated count (number/volume) 4.17 10*6/uL 4.35-5.85 Venous blood hemoglobin measurement (mass/volume) 12.9 g/dL 11.5-16.0 Blood hematocrit (volume fraction) 36 % 35-52 Automated erythrocyte mean corpuscular volume 86 [ foz_us] 80-99 Automated erythrocyte mean corpuscular h emoglobin (mass per erythrocyte) 31 pg 25-34 Automated erythrocyte mean corpuscular h emoglobin concentration measurement (mass/volume) 36 g/dL 32-36 Automated erythrocyte distribution width ratio 11. 9 % 10.0- 14.5 Automated blood platelet count (count/volume) 176 10*3/uL 130-400 Automated blood platelet mean volume measurement 10.4 [foz_us] 7.4-10.4 Automated blood neutrophils/100 leukocytes 67 % 42-75 Automated blood lymphocytes/100 leukocytes 21 % 12-44 Blood monocytes/100 leukocytes 11 % 0-12 Automated blood eosinophils/100 leukocytes 0 % 0-10 Automated blood basophils/100 leukocytes 0 % 0-10 Blood neutrophils automated count (number/volume) 6.2 10*3 1.8-7.8 Blood lymphocytes automated count (number/volume) 2.0 10*3 1.0-4.0 Blood monocytes automated count (number/volume) 1. 1 10*3 0.0-1.0 Automated eosinophil count 0.0 10*3/uL 0 .0-0.3 Automated blood basophil count (count/volume) 0.0 10*3/uL 0.0-0.1 Comprehensive metabolic panel - 08/20/16 04:25 Serum or plasma sodium measurement (moles/volume) 134 mmol/L 135-145 Serum or plasma potassium measurement (moles/volume) 3.0 mmol/L 3.6-5.0 Serum or plasma chloride measurement (moles/volume) 103 mmol/L 98-107 Carbon dioxide 20 mmol/L 21-32 Serum or plasma anion gap determination (moles/volume) 11 mmol/L 5-14 Serum or plasma urea nitrogen measurement (mass/volume ) 11 mg/dL 7-18 Serum or plasma creatinine measurement (mass/volume) 0.85 mg/dL 0.60-1.30 Serum or plasma urea nitrogen/creatinine mass ratio 13 NRG Serum or plasma creatinine measurement w ith calculation of estimated glomerular filtration rate > NRG Serum or plasma glucose measurement (mass/volume) 107 mg/dL 70-105 Serum or plasma calcium measurement (mass/volume) 9.6 mg/dL 8.5-10.1 Serum or plasma total bilirubin measurement (mass/volu me) 0.7 mg/dL 0.1-1.0 Serum or plasma alkaline phosphatase [place] surement (enzymatic activity/volume) 85 U/L 40-136 Serum or plasma aspartate aminotransfera se measurement (enzymatic activity/volume) 18 U/L 5-34 Serum or plasma alanine aminotransferase measurement (enzymatic activity/volume) 14 U/L 0-55 Serum or plasma protein measurement (mass/volume) 6.0 g/dL 6.4-8.2 Serum or plasma albumin measurement (mass/volume) 3.1 g/dL 3.2-4.5 Hemoglobin A1c - 08/20/16 04:25 Hemoglobin A1c 14.3 % 4.5-6.2 Capillary blood glucose measurement by g lucometer (mass/volume) - 08/20/16 11:14 Capillary blood glucose measurement by glucometer (mas s/volume) 167 mg/dL 70-110 Complete blood count (CBC) with automate d white blood cell (WBC) differential - 01/30/17 23:50 Blood leukocytes automated count (number/volume) 6.7 10*3/uL 4.3-11.0 Blood erythrocytes automated count (number/volume) 4.25 10*6/uL 4.35-5.85 Venous blood hemoglobin measurement (mass/volume) 13.3 g/dL 11.5-16.0 Blood hematocrit (volume fraction) 37 % 35-52 Automated erythrocyte mean corpuscular volume 86 [ foz_us] 80-99 Automated erythrocyte mean corpuscular h emoglobin (mass per erythrocyte) 31 pg 25-34 Automated erythrocyte mean corpuscular h emoglobin concentration measurement (mass/volume) 36 g/dL 32-36 Automated erythrocyte distribution width ratio 11. 7 % 10.0- 14.5 Automated blood platelet count (count/volume) 227 10*3/uL 130-400 Automated blood platelet mean volume measurement 10.5 [foz_us] 7.4-10.4 Automated blood neutrophils/100 leukocytes 41 % 42-75 Automated blood lymphocytes/100 leukocytes 48 % 12-44 Blood monocytes/100 leukocytes 9 % 0-12 Automated blood eosinophils/100 leukocytes 3 % 0-10 Automated blood basophils/100 leukocytes 0 % 0-10 Blood neutrophils automated count (number/volume) 2.7 10*3 1.8-7.8 Blood lymphocytes automated count (number/volume) 3.2 10*3 1.0-4.0 Blood monocytes automated count (number/volume) 0. 6 10*3 0.0-1.0 Automated eosinophil count 0.2 10*3/uL 0 .0-0.3 Automated blood basophil count (count/volume) 0.0 10*3/uL 0.0-0.1 Comprehensive metabolic panel - 01/30/17 23:50 Serum or plasma sodium measurement (moles/volume) 130 mmol/L 135-145 Serum or plasma potassium measurement (moles/volume) 3.5 mmol/L 3.6-5.0 Serum or plasma chloride measurement (moles/volume) 96 mmol/L 98-107 Carbon dioxide 20 mmol/L 21-32 Serum or plasma anion gap determination (moles/volume) 14 mmol/L 5-14 Serum or plasma urea nitrogen measurement (mass/volume ) 16 mg/dL 7-18 Serum or plasma creatinine measurement (mass/volume) 1.21 mg/dL 0.60-1.30 Serum or plasma urea nitrogen/creatinine mass ratio 13 NRG Serum or plasma creatinine measurement w ith calculation of estimated glomerular filtration rate 47 NRG Serum or plasma glucose measurement (mass/volume) 506 mg/dL 70-105 Serum or plasma calcium measurement (mass/volume) 11.0 mg/dL 8.5-10.1 Serum or plasma total bilirubin measurement (mass/volu me) 0.4 mg/dL 0.1-1.0 Serum or plasma alkaline phosphatase [place] surement (enzymatic activity/volume) 157 U/L 40-136 Serum or plasma aspartate aminotransfera se measurement (enzymatic activity/volume) 16 U/L 5-34 Serum or plasma alanine aminotransferase measurement (enzymatic activity/volume) 18 U/L 0-55 Serum or plasma protein measurement (mass/volume) 7.7 g/dL 6.4-8.2 Serum or plasma albumin measurement (mass/volume) 3.7 g/dL 3.2-4.5 Serum or plasma C reactive protein measu rement (mass/volume) - 01/30/17 23:50 Serum or plasma C reactive protein measurement (mass/v olume) 0.91 mg/dL 0.00-0.50 Erythrocyte sedimentation rate by shun gren method - 01/30/17 23:50 Erythrocyte sedimentation rate by westergren method 55 mm 0- 30 Complete urinalysis with reflex to cultu re - 01/31/17 00:39 Urine color determination YELLOW NRG Urine clarity determination CLEAR NR G Urine pH measurement by test strip 5 5-9 Specific gravity of urine by test strip 1.015 1.016-1.022 Urine protein assay by test strip, semi-quantitative 3+ NEGATIVE Urine glucose detection by automated test strip 4+ NEGATIVE Erythrocytes detection in urine sediment by light micr oscopy 2+ NEGATIVE Urine ketones detection by automated test strip NE GATIVE NEGATIVE Urine nitrite detection by test strip NEGATIVE NEGATIVE Urine total bilirubin detection by test strip NEGA TIVE NEGATIVE Urine urobilinogen measurement by automated test strip (mass/volume) NORMAL NORMAL Urine leukocyte esterase detection by dipstick NEG ATIVE NEGATIVE Automated urine sediment erythrocyte cou nt by microscopy (number/high power field) [HPF] NRG Automated urine sediment leukocyte count by microscopy (number/high power field) NONE NRG Bacteria detection in urine sediment by light microsco py NEGATIVE NRG Squamous epithelial cells detection in u rine sediment by light microscopy 5-10 NRG Crystals detection in urine sediment by light microsco py NONE NRG Casts detection in urine sediment by light microscopy NONE NRG Mucus detection in urine sediment by light microscopy NEGATIVE NRG Complete urinalysis with reflex to culture NO NRG CBC - 07/01/17 10:03 WHITE BLOOD CELL COUNT 10.3 Thousand/uL 3.8-10.8 RED BLOOD CELL COUNT 5.06 Million/uL 3.8 0-5.10 HEMOGLOBIN 15.8 g/dL 11.7-15.5 HEMATOCRIT 47.3 % 35.0-45.0 MCV 93.5 fL 80.0-100.0 MCH 31.2 pg 27.0-33.0 MCHC 33.4 g/dL 32.0-36.0 RDW 13.1 % 11.0-15.0 PLATELET COUNT 274 Thousand/uL 140-400 MPV 10.6 fL 7.5-12.5 ABSOLUTE NEUTROPHILS 4913 cells/uL 1500- 7800 ABSOLUTE LYMPHOCYTES 4233 cells/uL 850-3 900 ABSOLUTE MONOCYTES 1030 cells/uL 200-950 ABSOLUTE EOSINOPHILS 93 cells/uL 15-500 ABSOLUTE BASOPHILS 31 cells/uL 0-200 NEUTROPHILS 47.7 % NRG LYMPHOCYTES 41.1 % NRG MONOCYTES 10.0 % NRG EOSINOPHILS 0.9 % NRG BASOPHILS 0.3 % NRG MICROALBUMIN/CREATININE RATIO, URINE - 0 08/18/17 16:48 CREATININE, RANDOM URINE 46 mg/dL 20-32 0 MICROALBUMIN 80.3 mg/dL See Note: MICROALBUMIN/CREATININE RATIO, RANDOM URINE 1746 mcg/mg creat <30 CMP - 08/18/17 16:48 GLUCOSE 483 mg/dL 65-99 UREA NITROGEN (BUN) 25 mg/dL 7-25 CREATININE 1.09 mg/dL 0.50-1.05 eGFR NON-AFR. SAO TOMEAN 59 mL/min/1.73m2 > OR = 60 eGFR 68 mL/min/1.73m2 > OR = 60 BUN/CREATININE RATIO 23 (calc) 6-22 SODIUM 130 mmol/L 135-146 POTASSIUM 4.6 mmol/L 3.5-5.3 CHLORIDE 94 mmol/L 98-110 CARBON DIOXIDE 27 mmol/L 20-31 CALCIUM 11.1 mg/dL 8.6-10.4 PROTEIN, TOTAL 7.1 g/dL 6.1-8.1 ALBUMIN 3.9 g/dL 3.6-5.1 GLOBULIN 3.2 g/dL (calc) 1.9-3.7 ALBUMIN/GLOBULIN RATIO 1.2 (calc) 1.0-2. 5 BILIRUBIN, TOTAL 0.6 mg/dL 0.2-1.2 ALKALINE PHOSPHATASE 107 U/L 33-130 AST 25 U/L 10-35 ALT 28 U/L 6-29 CMP - 10/07/17 10:28 GLUCOSE 61 mg/dL 65-99 UREA NITROGEN (BUN) 32 mg/dL 7-25 CREATININE 1.04 mg/dL 0.50-1.05 eGFR NON-AFR. SAO TOMEAN 62 mL/min/1.73m2 > OR = 60 eGFR 72 mL/min/1.73m2 > OR = 60 BUN/CREATININE RATIO 31 (calc) 6-22 SODIUM 138 mmol/L 135-146 POTASSIUM 3.9 mmol/L 3.5-5.3 CHLORIDE 103 mmol/L 98-110 CARBON DIOXIDE 24 mmol/L 20-31 CALCIUM 12.4 mg/dL 8.6-10.4 PROTEIN, TOTAL 7.3 g/dL 6.1-8.1 ALBUMIN 4.4 g/dL 3.6-5.1 GLOBULIN 2.9 g/dL (calc) 1.9-3.7 ALBUMIN/GLOBULIN RATIO 1.5 (calc) 1.0-2. 5 BILIRUBIN, TOTAL 0.4 mg/dL 0.2-1.2 ALKALINE PHOSPHATASE 86 U/L 33-130 AST 22 U/L 10-35 ALT 23 U/L 6-29 C-PEPTIDE, SERUM - 10/07/17 10:28 C-PEPTIDE 0.73 ng/mL 0.80-3.85 CMP - 01/05/18 17:17 GLUCOSE 158 mg/dL 65-99 UREA NITROGEN (BUN) 25 mg/dL 7-25 CREATININE 1.95 mg/dL 0.50-1.05 eGFR NON-AFR. SAO TOMEAN 29 mL/min/1.73m2 > OR = 60 eGFR 34 mL/min/1.73m2 > OR = 60 BUN/CREATININE RATIO 13 (calc) 6-22 SODIUM 134 mmol/L 135-146 POTASSIUM 3.4 mmol/L 3.5-5.3 CHLORIDE 98 mmol/L 98-110 CARBON DIOXIDE 23 mmol/L 20-31 CALCIUM 11.5 mg/dL 8.6-10.4 PROTEIN, TOTAL 7.3 g/dL 6.1-8.1 ALBUMIN 3.9 g/dL 3.6-5.1 GLOBULIN 3.4 g/dL (calc) 1.9-3.7 ALBUMIN/GLOBULIN RATIO 1.1 (calc) 1.0-2. 5 BILIRUBIN, TOTAL 0.8 mg/dL 0.2-1.2 ALKALINE PHOSPHATASE 97 U/L 33-130 AST 23 U/L 10-35 ALT 15 U/L 6-29 LIPASE - 01/05/18 17:17 LIPASE 12 U/L 7-60 AMYLASE - 01/05/18 17:17 AMYLASE 28 U/L 21-101 Capillary blood glucose measurement by g lucometer (mass/volume) - 01/18/18 10:58 Capillary blood glucose measurement by glucometer (mas s/volume) 552 mg/dL 70-110 Complete blood count (CBC) with automate d white blood cell (WBC) differential - 01/18/18 11:15 Blood leukocytes automated count (number/volume) 19.8 10*3/uL 4.3-11.0 Blood erythrocytes automated count (number/volume) 4.56 10*6/uL 4.35-5.85 Venous blood hemoglobin measurement (mass/volume) 14.4 g/dL 11.5-16.0 Blood hematocrit (volume fraction) 40 % 35-52 Automated erythrocyte mean corpuscular volume 87 [ foz_us] 80-99 Automated erythrocyte mean corpuscular h emoglobin (mass per erythrocyte) 32 pg 25-34 Automated erythrocyte mean corpuscular h emoglobin concentration measurement (mass/volume) 37 g/dL 32-36 Automated erythrocyte distribution width ratio 12. 1 % 10.0- 14.5 Automated blood platelet count (count/volume) 329 10*3/uL 130-400 Automated blood platelet mean volume measurement 10.5 [foz_us] 7.4-10.4 Automated blood neutrophils/100 leukocytes 88 % 42-75 Automated blood lymphocytes/100 leukocytes 8 % 12-44 Blood monocytes/100 leukocytes 3 % 0-12 Automated blood eosinophils/100 leukocytes 0 % 0-10 Automated blood basophils/100 leukocytes 0 % 0-10 Blood neutrophils automated count (number/volume) 17.5 10*3 1.8-7.8 Blood lymphocytes automated count (number/volume) 1.6 10*3 1.0-4.0 Blood monocytes automated count (number/volume) 0. 7 10*3 0.0-1.0 Automated eosinophil count 0.0 10*3/uL 0 .0-0.3 Automated blood basophil count (count/volume) 0.0 10*3/uL 0.0-0.1 Comprehensive metabolic panel - 01/18/18 11:15 Serum or plasma sodium measurement (moles/volume) 132 mmol/L 135-145 Serum or plasma potassium measurement (moles/volume) 4.1 mmol/L 3.6-5.0 Serum or plasma chloride measurement (moles/volume) 95 mmol/L 98-107 Carbon dioxide 22 mmol/L 21-32 Serum or plasma anion gap determination (moles/volume) 15 mmol/L 5-14 Serum or plasma urea nitrogen measurement (mass/volume ) 45 mg/dL 7-18 Serum or plasma creatinine measurement (mass/volume) 2.20 mg/dL 0.60-1.30 Serum or plasma urea nitrogen/creatinine mass ratio 20 NRG Serum or plasma creatinine measurement w ith calculation of estimated glomerular filtration rate 24 NRG Serum or plasma glucose measurement (mass/volume) 606 mg/dL 70-105 Serum or plasma calcium measurement (mass/volume) 12.4 mg/dL 8.5-10.1 Serum or plasma total bilirubin measurement (mass/volu me) 1.4 mg/dL 0.1-1.0 Serum or plasma alkaline phosphatase [place] surement (enzymatic activity/volume) 115 U/L 40-136 Serum or plasma aspartate aminotransfera se measurement (enzymatic activity/volume) 30 U/L 5-34 Serum or plasma alanine aminotransferase measurement (enzymatic activity/volume) 26 U/L 0-55 Serum or plasma protein measurement (mass/volume) 8.4 g/dL 6.4-8.2 Serum or plasma albumin measurement (mass/volume) 4.2 g/dL 3.2-4.5 Serum or plasma phosphate measurement (m ass/volume) - 01/18/18 11:15 Serum or plasma phosphate measurement (mass/volume) 2.1 mg/dL 2.3-4.7 Magnesium - 01/18/18 11:15 Magnesium 3.0 mg/dL 1.8-2.4 Blood manual differential performed dete ction - 01/18/18 11:15 Blood monocytes/100 leukocytes 1 % NRG Manual blood segmented neutrophils/100 leukocytes 87 % NRG Blood band neutrophils/100 leukocytes 3 % NRG Manual blood lymphocytes/100 leukocytes 9 % NRG Manual eosinophils/100 leukocytes in nose 0 % NRG Manual blood basophils/100 leukocytes 0 % NRG Blood poikilocytosis detection by light microscopy MODERATE NRG Blood rouleaux detection by light microscopy SLIGH T NRG Blood stomatocytes detection by light microscopy M ODERATE NRG Blood platelet clump detection by light microscopy OCCASIONAL NRG Bacterial blood culture - 01/18/18 11:15 Bacterial blood culture NG NRG Blood lactic acid measurement (moles/vol ume) - 01/18/18 11:46 Blood lactic acid measurement (moles/volume) 2.64 mmol/L 0.50-2.00 Bacterial blood culture - 01/18/18 11:46 Bacterial blood culture NG NRG Complete urinalysis with reflex to cultu re - 01/18/18 12:30 Urine color determination YELLOW NRG Urine clarity determination CLEAR NR G Urine pH measurement by test strip 5 5-9 Specific gravity of urine by test strip 1.015 1.016-1.022 Urine protein assay by test strip, semi-quantitative 3+ NEGATIVE Urine glucose detection by automated test strip 4+ NEGATIVE Erythrocytes detection in urine sediment by light micr oscopy 1+ NEGATIVE Urine ketones detection by automated test strip 2+ NEGATIVE Urine nitrite detection by test strip NEGATIVE NEGATIVE Urine total bilirubin detection by test strip NEGA TIVE NEGATIVE Urine urobilinogen measurement by automated test strip (mass/volume) NORMAL NORMAL Urine leukocyte esterase detection by dipstick NEG ATIVE NEGATIVE Automated urine sediment erythrocyte cou nt by microscopy (number/high power field) RARE NRG Automated urine sediment leukocyte count by microscopy (number/high power field) [HPF] NRG Bacteria detection in urine sediment by light microsco py NEGATIVE NRG Squamous epithelial cells detection in u rine sediment by light microscopy 0-2 NRG Crystals detection in urine sediment by light microsco py NONE NRG Casts detection in urine sediment by light microscopy PRESENT NRG Mucus detection in urine sediment by light microscopy NEGATIVE NRG Complete urinalysis with reflex to culture NO NRG Hyaline casts detection in urine sediment by light aisha roscopy 0-2 NRG Renal epithelial cells detection in urin e sediment by light microscopy NONE NRG Arterial blood gas measurement - 8 13:28 Blood pCO2 34 mm[Hg] 35-45 Blood pO2 75 mm[Hg] 79-93 Arterial blood bicarbonate measurement (moles/volume) 23 mmol/L 23-27 Arterial blood base excess by calculation -1.2 mmo l/L -2.5-2.5 Arterial blood oxygen saturation measurement 96 % 94-100 * Inhaled oxygen flow rate N/A NRG Arterial blood pH measurement with patient temperature correction 7.43 7.37-7.43 Arterial blood carbon dioxide, total measurement (mole s/volume) 23.6 mmol/L 21.0-31.0 Body site LEFT RADIAL NRG Assessment of wrist artery patency prior to arterial p uncture POSITIVE NRG Setting of ventilation mode NO NR G Measurement of body temperature 98.2 NRG Capillary blood glucose measurement by g lucometer (mass/volume) - 01/18/18 13:46 Capillary blood glucose measurement by glucometer (mas s/volume) 230 mg/dL 70-110 Serum or plasma lactate measurement (mol es/volume) - 01/18/18 13:55 Serum or plasma lactate measurement (moles/volume) 2.75 mmol/L 0.50-2.00 Capillary blood glucose measurement by g lucometer (mass/volume) - 01/18/18 19:36 Capillary blood glucose measurement by glucometer (mas s/volume) 105 mg/dL 70-110 Capillary blood glucose measurement by g lucometer (mass/volume) - 01/19/18 05:39 Capillary blood glucose measurement by glucometer (mas s/volume) 76 mg/dL 70-110 Complete blood count (CBC) with automate d white blood cell (WBC) differential - 01/19/18 07:08 Blood leukocytes automated count (number/volume) 8.2 10*3/uL 4.3-11.0 Blood erythrocytes automated count (number/volume) 4.05 10*6/uL 4.35-5.85 Venous blood hemoglobin measurement (mass/volume) 12.5 g/dL 11.5-16.0 Blood hematocrit (volume fraction) 36 % 35-52 Automated erythrocyte mean corpuscular volume 89 [ foz_us] 80-99 Automated erythrocyte mean corpuscular h emoglobin (mass per erythrocyte) 31 pg 25-34 Automated erythrocyte mean corpuscular h emoglobin concentration measurement (mass/volume) 35 g/dL 32-36 Automated erythrocyte distribution width ratio 12. 2 % 10.0- 14.5 Automated blood platelet count (count/volume) 273 10*3/uL 130-400 Automated blood platelet mean volume measurement 10.3 [foz_us] 7.4-10.4 Automated blood neutrophils/100 leukocytes 51 % 42-75 Automated blood lymphocytes/100 leukocytes 39 % 12-44 Blood monocytes/100 leukocytes 10 % 0-12 Automated blood eosinophils/100 leukocytes 0 % 0-10 Automated blood basophils/100 leukocytes 0 % 0-10 Blood neutrophils automated count (number/volume) 4.2 10*3 1.8-7.8 Blood lymphocytes automated count (number/volume) 3.2 10*3 1.0-4.0 Blood monocytes automated count (number/volume) 0. 8 10*3 0.0-1.0 Automated eosinophil count 0.0 10*3/uL 0 .0-0.3 Automated blood basophil count (count/volume) 0.0 10*3/uL 0.0-0.1 Comprehensive metabolic panel - 01/19/18 07:08 Serum or plasma sodium measurement (moles/volume) 141 mmol/L 135-145 Serum or plasma potassium measurement (moles/volume) 3.1 mmol/L 3.6-5.0 Serum or plasma chloride measurement (moles/volume) 111 mmol/L 98-107 Carbon dioxide 21 mmol/L 21-32 Serum or plasma anion gap determination (moles/volume) 9 mmol/L 5-14 Serum or plasma urea nitrogen measurement (mass/volume ) 29 mg/dL 7-18 Serum or plasma creatinine measurement (mass/volume) 1.16 mg/dL 0.60-1.30 Serum or plasma urea nitrogen/creatinine mass ratio 25 NRG Serum or plasma creatinine measurement w ith calculation of estimated glomerular filtration rate 49 NRG Serum or plasma glucose measurement (mass/volume) 64 mg/dL 70-105 Serum or plasma calcium measurement (mass/volume) 10.2 mg/dL 8.5-10.1 Serum or plasma total bilirubin measurement (mass/volu me) 0.8 mg/dL 0.1-1.0 Serum or plasma alkaline phosphatase [place] surement (enzymatic activity/volume) 75 U/L 40-136 Serum or plasma aspartate aminotransfera se measurement (enzymatic activity/volume) 25 U/L 5-34 Serum or plasma alanine aminotransferase measurement (enzymatic activity/volume) 18 U/L 0-55 Serum or plasma protein measurement (mass/volume) 6.1 g/dL 6.4-8.2 Serum or plasma albumin measurement (mass/volume) 3.2 g/dL 3.2-4.5 Capillary blood glucose measurement by g lucometer (mass/volume) - 01/19/18 11:46 Capillary blood glucose measurement by glucometer (mas s/volume) 73 mg/dL 70-110 TSH - 12/22/18 09:36 TSH 2.71 mIU/L NRG PDM - PAIN MGMT (PROFILE 3 WITH CONFIRMA TION) - 12/22/18 09:36 Prescribed Drug 1 Hydrocodone NRG Creatinine 53.0 mg/dL > or = 20.0 pH 5.86 4.5 - 9.0 Oxidant NEGATIVE mcg/mL <200 Amphetamines NEGATIVE ng/mL <500 medMATCH Amphetamines CONSISTENT NRG Benzodiazepines NEGATIVE ng/mL <100 medMATCH Benzodiazepines CONSISTENT NRG Marijuana Metabolite NEGATIVE ng/mL <20 medMATCH Marijuana Metab CONSISTENT NRG Cocaine Metabolite NEGATIVE ng/mL <150 medMATCH Cocaine Metab CONSISTENT NRG Opiates NEGATIVE ng/mL <100 medMATCH Opiates INCONSISTENT NRG Oxycodone NEGATIVE ng/mL <100 medMATCH Oxycodone CONSISTENT NRG COMMENT NRG Complete blood count (CBC) with automate d white blood cell (WBC) differential - 05/21/19 18:40 Blood leukocytes automated count (number/volume) 9.7 10*3/uL 4.3-11.0 Blood erythrocytes automated count (number/volume) 3.92 10*6/uL 4.35-5.85 Venous blood hemoglobin measurement (mass/volume) 12.0 g/dL 11.5-16.0 Blood hematocrit (volume fraction) 35 % 35-52 Automated erythrocyte mean corpuscular volume 89 [ foz_us] 80-99 Automated erythrocyte mean corpuscular h emoglobin (mass per erythrocyte) 31 pg 25-34 Automated erythrocyte mean corpuscular h emoglobin concentration measurement (mass/volume) 35 g/dL 32-36 Automated erythrocyte distribution width ratio 12. 0 % 10.0- 14.5 Automated blood platelet count (count/volume) 279 10*3/uL 130-400 Automated blood platelet mean volume measurement 10.6 [foz_us] 7.4-10.4 Automated blood neutrophils/100 leukocytes 71 % 42-75 Automated blood lymphocytes/100 leukocytes 18 % 12-44 Blood monocytes/100 leukocytes 8 % 0-12 Automated blood eosinophils/100 leukocytes 3 % 0-10 Automated blood basophils/100 leukocytes 0 % 0-10 Blood neutrophils automated count (number/volume) 6.8 10*3 1.8-7.8 Blood lymphocytes automated count (number/volume) 1.8 10*3 1.0-4.0 Blood monocytes automated count (number/volume) 0. 7 10*3 0.0-1.0 Automated eosinophil count 0.3 10*3/uL 0 .0-0.3 Automated blood basophil count (count/volume) 0.0 10*3/uL 0.0-0.1 Comprehensive metabolic panel - 05/21/19 18:40 Serum or plasma sodium measurement (moles/volume) 126 mmol/L 135-145 Serum or plasma potassium measurement (moles/volume) 4.7 mmol/L 3.6-5.0 Serum or plasma chloride measurement (moles/volume) 93 mmol/L 98-107 Carbon dioxide 21 mmol/L 21-32 Serum or plasma anion gap determination (moles/volume) 12 mmol/L 5-14 Serum or plasma urea nitrogen measurement (mass/volume ) 21 mg/dL 7-18 Serum or plasma creatinine measurement (mass/volume) 1.94 mg/dL 0.60-1.30 Serum or plasma urea nitrogen/creatinine mass ratio 11 NRG Serum or plasma creatinine measurement w ith calculation of estimated glomerular filtration rate 27 NRG Serum or plasma glucose measurement (mass/volume) 686 mg/dL 70-105 Serum or plasma calcium measurement (mass/volume) 10.9 mg/dL 8.5-10.1 Serum or plasma total bilirubin measurement (mass/volu me) 0.3 mg/dL 0.1-1.0 Serum or plasma alkaline phosphatase [place] surement (enzymatic activity/volume) 129 U/L 40-136 Serum or plasma aspartate aminotransfera se measurement (enzymatic activity/volume) 13 U/L 5-34 Serum or plasma alanine aminotransferase measurement (enzymatic activity/volume) 12 U/L 0-55 Serum or plasma protein measurement (mass/volume) 7.3 g/dL 6.4-8.2 Serum or plasma albumin measurement (mass/volume) 3.5 g/dL 3.2-4.5 CALCIUM CORRECTED 11.3 mg/dL 8.5-10.1 Magnesium - 05/21/19 18:40 Magnesium 2.2 mg/dL 1.6-2.4 PT panel in platelet poor plasma by coag ulation assay - 05/21/19 18:40 Prothrombin time (PT) in platelet poor plasma by coagu lation assay 12.8 s 12.2-14.7 INR in platelet poor plasma or blood by coagulation as say 0.9 0.8-1.4 Activated partial thromboplastin time (a PTT) in platelet poor plasma bycoagulation assay - 05/21/19 18:40 Activated partial thromboplastin time (a PTT) in platelet poor plasma bycoagulation assay 26 s 24-35 Serum or plasma thyrotropin measurement by detection limit <=0.05 miu/l (units/volume) - 05/21/19 18:40 Serum or plasma thyrotropin measurement by detection limit <=0.05 miu/l (units/volume) 0.82 u[iU]/mL 0.35-4.94 Complete urinalysis with reflex to cultu re - 05/21/19 19:07 Urine color determination YELLOW NRG Urine clarity determination CLEAR NR G Urine pH measurement by test strip 6 5-9 Specific gravity of urine by test strip 1.010 1.016-1.022 Urine protein assay by test strip, semi-quantitative 3+ NEGATIVE Urine glucose detection by automated test strip 4+ NEGATIVE Erythrocytes detection in urine sediment by light micr oscopy 2+ NEGATIVE Urine ketones detection by automated test strip NE GATIVE NEGATIVE Urine nitrite detection by test strip NEGATIVE NEGATIVE Urine total bilirubin detection by test strip NEGA TIVE NEGATIVE Urine urobilinogen measurement by automated test strip (mass/volume) NORMAL NORMAL Urine leukocyte esterase detection by dipstick NEG ATIVE NEGATIVE Automated urine sediment erythrocyte cou nt by microscopy (number/high power field) [HPF] NRG Automated urine sediment leukocyte count by microscopy (number/high power field) [HPF] NRG Bacteria detection in urine sediment by light microsco py TRACE NRG Squamous epithelial cells detection in u rine sediment by light microscopy 0-5 NRG Crystals detection in urine sediment by light microsco py NONE NRG Casts detection in urine sediment by light microscopy NONE NRG Mucus detection in urine sediment by light microscopy NEGATIVE NRG Complete urinalysis with reflex to culture YES NRG Urine drug screening test - 05/21/19 19: 07 Urine phencyclidine detection by screening method NEGATIVE NEGATIVE Urine benzodiazepines detection by screening method NEGATIVE NEGATIVE Urine cocaine detection NEGATIVE NEGATI VE Urine amphetamines detection by screening method N EGATIVE NEGATIVE Urine methamphetamine detection by screening method NEGATIVE NEGATIVE Urine cannabinoids detection by screening method N EGATIVE NEGATIVE Urine opiates detection by screening method NEGATI VE NEGATIVE Urine barbiturates detection NEGATIVE N EGATIVE Screening urine tricyclic antidepressants detection NEGATIVE NEGATIVE Urine methadone detection by screening method NEGA TIVE NEGATIVE Urine oxycodone detection NEGATIVE NEGA TIVE Urine propoxyphene detection NEGATIVE N EGATIVE Bacterial urine culture - 05/21/19 19:07 Bacterial urine culture 3 OR MORE NRG COLONY COUNT 20,000 CFU/ML NRG FTX;REPORTABLE GRAM POSITIVE ISOLATES; SUGGESTING NRG FREE TEXT ENTRY 2 PROBABLE COLLECTION CONTAMINATIO N WITH NRG FREE TEXT ENTRY 3 SKIN OTIS. NO SUSCEPTIBILITY PE RFORMED. NRG Blood lactic acid measurement (moles/vol ume) - 05/21/19 19:29 Blood lactic acid measurement (moles/volume) 2.40 mmol/L 0.50-2.00 Arterial blood gas measurement - 9 19:35 Blood pCO2 29 mm[Hg] 35-45 Blood pO2 84 mm[Hg] 79-93 Arterial blood bicarbonate measurement (moles/volume) 22 mmol/L 23-27 Arterial blood base excess by calculation -0.9 mmo l/L -2.5-2.5 Arterial blood oxygen saturation measurement 98 % 94-100 * Inhaled oxygen flow rate ROOM AIR NRG Arterial blood pH measurement with patient temperature correction 7.50 7.37-7.43 Arterial blood carbon dioxide, total measurement (mole s/volume) 22.9 mmol/L 21.0-31.0 Body site LEFT RADIAL NRG Assessment of wrist artery patency prior to arterial p uncture YES-POS NRG Setting of ventilation mode NO NR G Measurement of body temperature 98.0 NRG Capillary blood glucose measurement by g lucometer (mass/volume) - 05/21/19 20:14 Capillary blood glucose measurement by glucometer (mas s/volume) 399 mg/dL 70-110 Capillary blood glucose measurement by g lucometer (mass/volume) - 05/21/19 21:22 Capillary blood glucose measurement by glucometer (mas s/volume) 134 mg/dL 70-110 Methicillin resistant Staphylococcus aur eus (MRSA) screening culture - 05/21/19 22:00 Methicillin resistant Staphylococcus aureus (MRSA) scr eening culture NEG NRG Capillary blood glucose measurement by g lucometer (mass/volume) - 05/22/19 00:40 Capillary blood glucose measurement by glucometer (mas s/volume) 203 mg/dL 70-110 Complete blood count (CBC) with automate d white blood cell (WBC) differential - 05/22/19 03:18 Blood leukocytes automated count (number/volume) 10.3 10*3/uL 4.3-11.0 Blood erythrocytes automated count (number/volume) 3.33 10*6/uL 4.35-5.85 Venous blood hemoglobin measurement (mass/volume) 10.3 g/dL 11.5-16.0 Blood hematocrit (volume fraction) 30 % 35-52 Automated erythrocyte mean corpuscular volume 90 [ foz_us] 80-99 Automated erythrocyte mean corpuscular h emoglobin (mass per erythrocyte) 31 pg 25-34 Automated erythrocyte mean corpuscular h emoglobin concentration measurement (mass/volume) 35 g/dL 32-36 Automated erythrocyte distribution width ratio 12. 0 % 10.0- 14.5 Automated blood platelet count (count/volume) 249 10*3/uL 130-400 Automated blood platelet mean volume measurement 10.1 [foz_us] 7.4-10.4 Automated blood neutrophils/100 leukocytes 60 % 42-75 Automated blood lymphocytes/100 leukocytes 24 % 12-44 Blood monocytes/100 leukocytes 11 % 0-12 Automated blood eosinophils/100 leukocytes 5 % 0-10 Automated blood basophils/100 leukocytes 0 % 0-10 Blood neutrophils automated count (number/volume) 6.2 10*3 1.8-7.8 Blood lymphocytes automated count (number/volume) 2.4 10*3 1.0-4.0 Blood monocytes automated count (number/volume) 1. 1 10*3 0.0-1.0 Automated eosinophil count 0.5 10*3/uL 0 .0-0.3 Automated blood basophil count (count/volume) 0.0 10*3/uL 0.0-0.1 Comprehensive metabolic panel - 05/22/19 03:18 Serum or plasma sodium measurement (moles/volume) 138 mmol/L 135-145 Serum or plasma potassium measurement (moles/volume) 3.6 mmol/L 3.6-5.0 Serum or plasma chloride measurement (moles/volume) 109 mmol/L 98-107 Carbon dioxide 21 mmol/L 21-32 Serum or plasma anion gap determination (moles/volume) 8 mmol/L 5-14 Serum or plasma urea nitrogen measurement (mass/volume ) 24 mg/dL 7-18 Serum or plasma creatinine measurement (mass/volume) 1.18 mg/dL 0.60-1.30 Serum or plasma urea nitrogen/creatinine mass ratio 20 NRG Serum or plasma creatinine measurement w ith calculation of estimated glomerular filtration rate 48 NRG Serum or plasma glucose measurement (mass/volume) 159 mg/dL 70-105 Serum or plasma calcium measurement (mass/volume) 9.7 mg/dL 8.5-10.1 Serum or plasma total bilirubin measurement (mass/volu me) 0.2 mg/dL 0.1-1.0 Serum or plasma alkaline phosphatase [place] surement (enzymatic activity/volume) 91 U/L 40-136 Serum or plasma aspartate aminotransfera se measurement (enzymatic activity/volume) 16 U/L 5-34 Serum or plasma alanine aminotransferase measurement (enzymatic activity/volume) 12 U/L 0-55 Serum or plasma protein measurement (mass/volume) 5.5 g/dL 6.4-8.2 Serum or plasma albumin measurement (mass/volume) 2.6 g/dL 3.2-4.5 CALCIUM CORRECTED 10.8 mg/dL 8.5-10.1 Serum or plasma phosphate measurement (m ass/volume) - 05/22/19 03:18 Serum or plasma phosphate measurement (mass/volume) 2.0 mg/dL 2.3-4.7 Magnesium - 05/22/19 03:18 Magnesium 2.0 mg/dL 1.6-2.4 Beta-hydroxybutyric acid measurement - 1 07/22/18 03:18 Beta-hydroxybutyric acid measurement 0.05 mmol/L 0.00-0.27 Capillary blood glucose measurement by g lucometer (mass/volume) - 05/22/19 11:33 Capillary blood glucose measurement by glucometer (mas s/volume) 95 mg/dL 70-110 Capillary blood glucose measurement by g lucometer (mass/volume) - 05/22/19 14:46 Capillary blood glucose measurement by glucometer (mas s/volume) 78 mg/dL 70-110 Capillary blood glucose measurement by g lucometer (mass/volume) - 05/22/19 15:52 Capillary blood glucose measurement by glucometer (mas s/volume) 84 mg/dL 70-110 Capillary blood glucose measurement by g lucometer (mass/volume) - 05/22/19 20:51 Capillary blood glucose measurement by glucometer (mas s/volume) 139 mg/dL 70-110 Capillary blood glucose measurement by g lucometer (mass/volume) - 05/23/19 05:50 Capillary blood glucose measurement by glucometer (mas s/volume) 187 mg/dL 70-110 Capillary blood glucose measurement by g lucometer (mass/volume) - 05/23/19 10:55 Capillary blood glucose measurement by glucometer (mas s/volume) 190 mg/dL 70-110 Complete blood count (CBC) with automate d white blood cell (WBC) differential - 06/26/19 16:00 Blood leukocytes automated count (number/volume) 15.0 10*3/uL 4.3-11.0 Blood erythrocytes automated count (number/volume) 3.81 10*6/uL 4.35-5.85 Venous blood hemoglobin measurement (mass/volume) 11.4 g/dL 11.5-16.0 Blood hematocrit (volume fraction) 33 % 35-52 Automated erythrocyte mean corpuscular volume 86 [ foz_us] 80-99 Automated erythrocyte mean corpuscular h emoglobin (mass per erythrocyte) 30 pg 25-34 Automated erythrocyte mean corpuscular h emoglobin concentration measurement (mass/volume) 35 g/dL 32-36 Automated erythrocyte distribution width ratio 11. 8 % 10.0- 14.5 Automated blood platelet count (count/volume) 324 10*3/uL 130-400 Automated blood platelet mean volume measurement 10.5 [foz_us] 7.4-10.4 Automated blood neutrophils/100 leukocytes 82 % 42-75 Automated blood lymphocytes/100 leukocytes 12 % 12-44 Blood monocytes/100 leukocytes 6 % 0-12 Automated blood eosinophils/100 leukocytes 0 % 0-10 Automated blood basophils/100 leukocytes 0 % 0-10 Blood neutrophils automated count (number/volume) 12.2 10*3 1.8-7.8 Blood lymphocytes automated count (number/volume) 1.8 10*3 1.0-4.0 Blood monocytes automated count (number/volume) 0. 9 10*3 0.0-1.0 Automated eosinophil count 0.0 10*3/uL 0 .0-0.3 Automated blood basophil count (count/volume) 0.0 10*3/uL 0.0-0.1 Fibrin D-dimer FEU measurement in platel et poor plasma (mass/volume) - 06/26/19 16:00 Fibrin D-dimer FEU measurement in platelet poor plasma (mass/volume) 2.23 ug/mL 0.00-0.49 Comprehensive metabolic panel - 06/26/19 16:00 Serum or plasma sodium measurement (moles/volume) 132 mmol/L 135-145 Serum or plasma potassium measurement (moles/volume) 4.1 mmol/L 3.6-5.0 Serum or plasma chloride measurement (moles/volume) 96 mmol/L 98-107 Carbon dioxide 22 mmol/L 21-32 Serum or plasma anion gap determination (moles/volume) 14 mmol/L 5-14 Serum or plasma urea nitrogen measurement (mass/volume ) 28 mg/dL 7-18 Serum or plasma creatinine measurement (mass/volume) 2.01 mg/dL 0.60-1.30 Serum or plasma urea nitrogen/creatinine mass ratio 14 NRG Serum or plasma creatinine measurement w ith calculation of estimated glomerular filtration rate 26 NRG Serum or plasma glucose measurement (mass/volume) 616 mg/dL 70-105 Serum or plasma calcium measurement (mass/volume) 12.1 mg/dL 8.5-10.1 Serum or plasma total bilirubin measurement (mass/volu me) 0.4 mg/dL 0.1-1.0 Serum or plasma alkaline phosphatase [place] surement (enzymatic activity/volume) 122 U/L 40-136 Serum or plasma aspartate aminotransfera se measurement (enzymatic activity/volume) 13 U/L 5-34 Serum or plasma alanine aminotransferase measurement (enzymatic activity/volume) 16 U/L 0-55 Serum or plasma protein measurement (mass/volume) 8.4 g/dL 6.4-8.2 Serum or plasma albumin measurement (mass/volume) 3.4 g/dL 3.2-4.5 CALCIUM CORRECTED 12.6 mg/dL 8.5-10.1 Manual absolute plasma cell count - 03/07 16:00 Blood monocytes/100 leukocytes 3 % NRG Manual blood segmented neutrophils/100 leukocytes 85 % NRG Blood band neutrophils/100 leukocytes 1 % NRG Manual blood lymphocytes/100 leukocytes 10 % NRG Manual eosinophils/100 leukocytes in nose 0 % NRG Manual blood basophils/100 leukocytes 0 % NRG Blood lymphocytes variant/100 leukocytes 1 % NRG Blood erythrocyte morphology finding identification NORMAL NRG Blood toxic granules detection by light microscopy 1+ NRG Serum or plasma troponin i.cardiac measu rement (mass/volume) - 06/26/19 16:00 Serum or plasma troponin i.cardiac measurement (mass/v olume) < ng/mL <0.028 Serum or plasma lithium measurement (mol es/volume) - 06/26/19 16:00 BNP PT 26.4 pg/mL <100.0 Bacterial blood culture - 06/26/19 17:23 Bacterial blood culture NG NRG Bacterial blood culture - 06/26/19 17:35 Bacterial blood culture NG NRG Blood lactic acid measurement (moles/vol ume) - 06/26/19 17:54 Blood lactic acid measurement (moles/volume) 2.54 mmol/L 0.50-2.00 Methicillin resistant Staphylococcus aur eus (MRSA) screening culture - 06/26/19 18:25 MRSA SCREEN RESULT MRSA ISOLATED NRG Serum or plasma lactate measurement (mol es/volume) - 06/26/19 20:05 Serum or plasma lactate measurement (moles/volume) 1.24 mmol/L 0.50-2.00 Capillary blood glucose measurement by g lucometer (mass/volume) - 06/26/19 20:51 Capillary blood glucose measurement by glucometer (mas s/volume) 100 mg/dL 70-110 Whole blood basic metabolic panel - 03/07 21:15 Serum or plasma sodium measurement (moles/volume) 139 mmol/L 135-145 Serum or plasma potassium measurement (moles/volume) 3.3 mmol/L 3.6-5.0 Serum or plasma chloride measurement (moles/volume) 106 mmol/L 98-107 Carbon dioxide 21 mmol/L 21-32 Serum or plasma anion gap determination (moles/volume) 12 mmol/L 5-14 Serum or plasma urea nitrogen measurement (mass/volume ) 23 mg/dL 7-18 Serum or plasma creatinine measurement (mass/volume) 1.34 mg/dL 0.60-1.30 Serum or plasma urea nitrogen/creatinine mass ratio 17 NRG Serum or plasma creatinine measurement w ith calculation of estimated glomerular filtration rate 41 NRG Serum or plasma glucose measurement (mass/volume) 100 mg/dL 70-105 Serum or plasma calcium measurement (mass/volume) 11.2 mg/dL 8.5-10.1 Capillary blood glucose measurement by g lucometer (mass/volume) - 06/26/19 22:40 Capillary blood glucose measurement by glucometer (mas s/volume) 107 mg/dL 70-110 Complete urinalysis with reflex to cultu re - 06/26/19 23:47 Urine color determination YELLOW NRG Urine clarity determination CLEAR NR G Urine pH measurement by test strip 6.5 5-9 Specific gravity of urine by test strip 1.015 1.016-1.022 Urine protein assay by test strip, semi-quantitative 3+ NEGATIVE Urine glucose detection by automated test strip 2+ NEGATIVE Erythrocytes detection in urine sediment by light micr oscopy 1+ NEGATIVE Urine ketones detection by automated test strip NE GATIVE NEGATIVE Urine nitrite detection by test strip NEGATIVE NEGATIVE Urine total bilirubin detection by test strip NEGA TIVE NEGATIVE Urine urobilinogen measurement by automated test strip (mass/volume) 0.2 mg/dL < = 1.0 Urine leukocyte esterase detection by dipstick NEG ATIVE NEGATIVE Automated urine sediment erythrocyte cou nt by microscopy (number/high power field) [HPF] NRG Automated urine sediment leukocyte count by microscopy (number/high power field) [HPF] NRG Bacteria detection in urine sediment by light microsco py FEW NRG Squamous epithelial cells detection in u rine sediment by light microscopy 0-2 NRG Crystals detection in urine sediment by light microsco py NONE NRG Casts detection in urine sediment by light microscopy PRESENT NRG Mucus detection in urine sediment by light microscopy SMALL NRG Complete urinalysis with reflex to culture YES NRG Yeast detection in urine sediment by light microscopy MODERATE NRG Hyaline casts detection in urine sediment by light aisha roscopy 0-2 NRG Bacterial urine culture - 06/26/19 23:47 Bacterial urine culture [id number] NRG COLONY COUNT 70,000 cfu/ml NRG Capillary blood glucose measurement by g lucometer (mass/volume) - 06/27/19 00:43 Capillary blood glucose measurement by glucometer (mas s/volume) 123 mg/dL 70-110 Complete blood count (CBC) with automate d white blood cell (WBC) differential - 06/27/19 03:05 Blood leukocytes automated count (number/volume) 18.3 10*3/uL 4.3-11.0 Blood erythrocytes automated count (number/volume) 3.24 10*6/uL 4.35-5.85 Venous blood hemoglobin measurement (mass/volume) 9.7 g/dL 11.5-16.0 Blood hematocrit (volume fraction) 28 % 35-52 Automated erythrocyte mean corpuscular volume 86 [ foz_us] 80-99 Automated erythrocyte mean corpuscular h emoglobin (mass per erythrocyte) 30 pg 25-34 Automated erythrocyte mean corpuscular h emoglobin concentration measurement (mass/volume) 35 g/dL 32-36 Automated erythrocyte distribution width ratio 12. 0 % 10.0- 14.5 Automated blood platelet count (count/volume) 294 10*3/uL 130-400 Automated blood platelet mean volume measurement 10.0 [foz_us] 7.4-10.4 Automated blood neutrophils/100 leukocytes 73 % 42-75 Automated blood lymphocytes/100 leukocytes 20 % 12-44 Blood monocytes/100 leukocytes 7 % 0-12 Automated blood eosinophils/100 leukocytes 0 % 0-10 Automated blood basophils/100 leukocytes 0 % 0-10 Blood neutrophils automated count (number/volume) 13.4 10*3 1.8-7.8 Blood lymphocytes automated count (number/volume) 3.6 10*3 1.0-4.0 Blood monocytes automated count (number/volume) 1. 3 10*3 0.0-1.0 Automated eosinophil count 0.1 10*3/uL 0 .0-0.3 Automated blood basophil count (count/volume) 0.0 10*3/uL 0.0-0.1 Comprehensive metabolic panel - 06/27/19 03:05 Serum or plasma sodium measurement (moles/volume) 136 mmol/L 135-145 Serum or plasma potassium measurement (moles/volume) 3.3 mmol/L 3.6-5.0 Serum or plasma chloride measurement (moles/volume) 107 mmol/L 98-107 Carbon dioxide 21 mmol/L 21-32 Serum or plasma anion gap determination (moles/volume) 8 mmol/L 5-14 Serum or plasma urea nitrogen measurement (mass/volume ) 23 mg/dL 7-18 Serum or plasma creatinine measurement (mass/volume) 1.45 mg/dL 0.60-1.30 Serum or plasma urea nitrogen/creatinine mass ratio 16 NRG Serum or plasma creatinine measurement w ith calculation of estimated glomerular filtration rate 38 NRG Serum or plasma glucose measurement (mass/volume) 98 mg/dL 70-105 Serum or plasma calcium measurement (mass/volume) 10.5 mg/dL 8.5-10.1 Serum or plasma total bilirubin measurement (mass/volu me) 0.4 mg/dL 0.1-1.0 Serum or plasma alkaline phosphatase [place] surement (enzymatic activity/volume) 94 U/L 40-136 Serum or plasma aspartate aminotransfera se measurement (enzymatic activity/volume) 14 U/L 5-34 Serum or plasma alanine aminotransferase measurement (enzymatic activity/volume) 9 U/L 0-55 Serum or plasma protein measurement (mass/volume) 6.5 g/dL 6.4-8.2 Serum or plasma albumin measurement (mass/volume) 2.7 g/dL 3.2-4.5 CALCIUM CORRECTED 11.5 mg/dL 8.5-10.1 Serum or plasma phosphate measurement (m ass/volume) - 06/27/19 03:05 Serum or plasma phosphate measurement (mass/volume) 1.6 mg/dL 2.3-4.7 Magnesium - 06/27/19 03:05 Magnesium 1.9 mg/dL 1.6-2.4 Capillary blood glucose measurement by g lucometer (mass/volume) - 06/27/19 11:14 Capillary blood glucose measurement by glucometer (mas s/volume) 207 mg/dL 70-110 Capillary blood glucose measurement by g lucometer (mass/volume) - 06/27/19 16:34 Capillary blood glucose measurement by glucometer (mas s/volume) 323 mg/dL 70-110 Capillary blood glucose measurement by g lucometer (mass/volume) - 06/27/19 20:58 Capillary blood glucose measurement by glucometer (mas s/volume) 207 mg/dL 70-110 Whole blood basic metabolic panel - 06/19 0 03:55 Serum or plasma sodium measurement (moles/volume) 135 mmol/L 135-145 Serum or plasma potassium measurement (moles/volume) 3.6 mmol/L 3.6-5.0 Serum or plasma chloride measurement (moles/volume) 107 mmol/L 98-107 Carbon dioxide 18 mmol/L 21-32 Serum or plasma anion gap determination (moles/volume) 10 mmol/L 5-14 Serum or plasma urea nitrogen measurement (mass/volume ) 17 mg/dL 7-18 Serum or plasma creatinine measurement (mass/volume) 1.22 mg/dL 0.60-1.30 Serum or plasma urea nitrogen/creatinine mass ratio 14 NRG Serum or plasma creatinine measurement w ith calculation of estimated glomerular filtration rate 46 NRG Serum or plasma glucose measurement (mass/volume) 131 mg/dL 70-105 Serum or plasma calcium measurement (mass/volume) 10.0 mg/dL 8.5-10.1 Serum or plasma phosphate measurement (m ass/volume) - 06/28/19 03:55 Serum or plasma phosphate measurement (mass/volume) 2.7 mg/dL 2.3-4.7 Magnesium - 06/28/19 03:55 Magnesium 1.6 mg/dL 1.6-2.4 Capillary blood glucose measurement by g lucometer (mass/volume) - 06/28/19 11:09 Capillary blood glucose measurement by glucometer (mas s/volume) 363 mg/dL 70-110 Capillary blood glucose measurement by g lucometer (mass/volume) - 06/28/19 15:42 Capillary blood glucose measurement by glucometer (mas s/volume) 342 mg/dL 70-110 Capillary blood glucose measurement by g lucometer (mass/volume) - 06/28/19 20:56 Capillary blood glucose measurement by glucometer (mas s/volume) 356 mg/dL 70-110 Whole blood basic metabolic panel - 06/19 08/07 04:15 Serum or plasma sodium measurement (moles/volume) 134 mmol/L 135-145 Serum or plasma potassium measurement (moles/volume) 4.2 mmol/L 3.6-5.0 Serum or plasma chloride measurement (moles/volume) 107 mmol/L 98-107 Carbon dioxide 15 mmol/L 21-32 Serum or plasma anion gap determination (moles/volume) 12 mmol/L 5-14 Serum or plasma urea nitrogen measurement (mass/volume ) 16 mg/dL 7-18 Serum or plasma creatinine measurement (mass/volume) 1.60 mg/dL 0.60-1.30 Serum or plasma urea nitrogen/creatinine mass ratio 10 NRG Serum or plasma creatinine measurement w ith calculation of estimated glomerular filtration rate 34 NRG Serum or plasma glucose measurement (mass/volume) 155 mg/dL 70-105 Serum or plasma calcium measurement (mass/volume) 9.9 mg/dL 8.5-10.1 Serum or plasma phosphate measurement (m ass/volume) - 06/29/19 04:15 Serum or plasma phosphate measurement (mass/volume) 2.3 mg/dL 2.3-4.7 Magnesium - 06/29/19 04:15 Magnesium 1.9 mg/dL 1.6-2.4 Capillary blood glucose measurement by g lucometer (mass/volume) - 06/29/19 11:27 Capillary blood glucose measurement by glucometer (mas s/volume) 404 mg/dL 70-110 Whole blood basic metabolic panel - 06/19 08/07 12:48 Serum or plasma sodium measurement (moles/volume) 131 mmol/L 135-145 Serum or plasma potassium measurement (moles/volume) 4.2 mmol/L 3.6-5.0 Serum or plasma chloride measurement (moles/volume) 105 mmol/L 98-107 Carbon dioxide 20 mmol/L 21-32 Serum or plasma anion gap determination (moles/volume) 6 mmol/L 5-14 Serum or plasma urea nitrogen measurement (mass/volume ) 14 mg/dL 7-18 Serum or plasma creatinine measurement (mass/volume) 1.54 mg/dL 0.60-1.30 Serum or plasma urea nitrogen/creatinine mass ratio 9 NRG Serum or plasma creatinine measurement w ith calculation of estimated glomerular filtration rate 35 NRG Serum or plasma glucose measurement (mass/volume) 393 mg/dL 70-105 Serum or plasma calcium measurement (mass/volume) 9.9 mg/dL 8.5-10.1 Complete blood count (CBC) with automate d white blood cell (WBC) differential - 10/07/19 12:15 Blood leukocytes automated count (number/volume) 5.5 10*3/uL 4.3-11.0 Blood erythrocytes automated count (number/volume) 4.67 10*6/uL 4.35-5.85 Venous blood hemoglobin measurement (mass/volume) 14.0 g/dL 11.5-16.0 Blood hematocrit (volume fraction) 40 % 35-52 Automated erythrocyte mean corpuscular volume 85 [ foz_us] 80-99 Automated erythrocyte mean corpuscular h emoglobin (mass per erythrocyte) 30 pg 25-34 Automated erythrocyte mean corpuscular h emoglobin concentration measurement (mass/volume) 35 g/dL 32-36 Automated erythrocyte distribution width ratio 11. 7 % 10.0- 14.5 Automated blood platelet count (count/volume) 246 10*3/uL 130-400 Automated blood platelet mean volume measurement 10.2 [foz_us] 7.4-10.4 Automated blood neutrophils/100 leukocytes 48 % 42-75 Automated blood lymphocytes/100 leukocytes 45 % 12-44 Blood monocytes/100 leukocytes 5 % 0-12 Automated blood eosinophils/100 leukocytes 2 % 0-10 Automated blood basophils/100 leukocytes 1 % 0-10 Blood neutrophils automated count (number/volume) 2.6 10*3 1.8-7.8 Blood lymphocytes automated count (number/volume) 2.5 10*3 1.0-4.0 Blood monocytes automated count (number/volume) 0. 3 10*3 0.0-1.0 Automated eosinophil count 0.1 10*3/uL 0 .0-0.3 Automated blood basophil count (count/volume) 0.0 10*3/uL 0.0-0.1 PT panel in platelet poor plasma by coag ulation assay - 10/07/19 12:15 Prothrombin time (PT) in platelet poor plasma by coagu lation assay 12.3 s 12.2-14.7 INR in platelet poor plasma or blood by coagulation as say 0.9 0.8-1.4 Activated partial thromboplastin time (a PTT) in platelet poor plasma bycoagulation assay - 10/07/19 12:15 Activated partial thromboplastin time (a PTT) in platelet poor plasma bycoagulation assay 25 s 24-35 Comprehensive metabolic panel - 10/07/19 12:15 Serum or plasma sodium measurement (moles/volume) 138 mmol/L 135-145 Serum or plasma potassium measurement (moles/volume) 3.3 mmol/L 3.6-5.0 Serum or plasma chloride measurement (moles/volume) 104 mmol/L 98-107 Carbon dioxide 22 mmol/L 21-32 Serum or plasma anion gap determination (moles/volume) 12 mmol/L 5-14 Serum or plasma urea nitrogen measurement (mass/volume ) 22 mg/dL 7-18 Serum or plasma creatinine measurement (mass/volume) 1.58 mg/dL 0.60-1.30 Serum or plasma urea nitrogen/creatinine mass ratio 14 NRG Serum or plasma creatinine measurement w ith calculation of estimated glomerular filtration rate 34 NRG Serum or plasma glucose measurement (mass/volume) 360 mg/dL 70-105 Serum or plasma calcium measurement (mass/volume) 10.9 mg/dL 8.5-10.1 Serum or plasma total bilirubin measurement (mass/volu me) 0.5 mg/dL 0.1-1.0 Serum or plasma alkaline phosphatase [place] surement (enzymatic activity/volume) 152 U/L 40-136 Serum or plasma aspartate aminotransfera se measurement (enzymatic activity/volume) 14 U/L 5-34 Serum or plasma alanine aminotransferase measurement (enzymatic activity/volume) 15 U/L 0-55 Serum or plasma protein measurement (mass/volume) 7.7 g/dL 6.4-8.2 Serum or plasma albumin measurement (mass/volume) 3.6 g/dL 3.2-4.5 CALCIUM CORRECTED 11.2 mg/dL 8.5-10.1 Magnesium - 10/07/19 12:15 Magnesium 2.2 mg/dL 1.6-2.4 Myoglobin, serum - 10/07/19 12:15 Myoglobin, serum 50.6 ng/mL 10.0-92.0 Serum or plasma amylase measurement (enz ymatic activity/volume) - 10/07/19 12:15 Serum or plasma amylase measurement (enzymatic activit y/volume) 47 U/L 25-125 Serum or plasma troponin i.cardiac measu rement (mass/volume) - 10/07/19 12:15 Serum or plasma troponin i.cardiac measurement (mass/v olume) < ng/mL <0.028 Lipase - 10/07/19 12:15 Lipase 36 U/L 8-78 Serum or plasma lithium measurement (mol es/volume) - 10/07/19 12:15 BNP PT 21.9 pg/mL <100.0 Complete urinalysis with reflex to cultu re - 10/07/19 13:05 Urine color determination YELLOW NRG Urine clarity determination CLEAR NR G Urine pH measurement by test strip 7.0 5-9 Specific gravity of urine by test strip 1.025 1.016-1.022 Urine protein assay by test strip, semi-quantitative 3+ NEGATIVE Urine glucose detection by automated test strip 2+ NEGATIVE Erythrocytes detection in urine sediment by light micr oscopy 1+ NEGATIVE Urine ketones detection by automated test strip NE GATIVE NEGATIVE Urine nitrite detection by test strip NEGATIVE NEGATIVE Urine total bilirubin detection by test strip NEGA TIVE NEGATIVE Urine urobilinogen measurement by automated test strip (mass/volume) 1.0 mg/dL < = 1.0 Urine leukocyte esterase detection by dipstick NEG ATIVE NEGATIVE Automated urine sediment erythrocyte cou nt by microscopy (number/high power field) [HPF] NRG Automated urine sediment leukocyte count by microscopy (number/high power field) RARE NRG Bacteria detection in urine sediment by light microsco py TRACE NRG Crystals detection in urine sediment by light microsco py NONE NRG Casts detection in urine sediment by light microscopy NONE NRG Mucus detection in urine sediment by light microscopy NEGATIVE NRG Complete urinalysis with reflex to culture NO NRG Encounters ACCT No. Visit Date/Time Discharge Status Pt. Type Provider Facility Loc./Unit Complaint [id number] 03/15/2019 00:55:34 ACT Document Registration [id number] 06/26/2019 17:00:00 019 15:47:00 DIS Inpatient WATSONYUMIKO YOUSSEF DO, V [facility] 4TH PNEUMONIA, HPERGLYCEMIA [id number] 05/21/2019 21:09:00 019 11:36:00 DIS Inpatient YUMIKO WATSON DO, V [facility] 4TH UNCONTROLLED DIABETES,U TI [id number] 01/25/2018 11:17:00 018 23:59:59 CLS Preadmit JALEN PEREZ MD, V [facility] RAD SLURRED SPEECH [id number] 01/18/2018 17:37:00 018 12:24:00 DIS Inpatient CRYSNIPHULisa HODGE TANYA Gonzalez [facility] 4TH DKA LACTIC ACIDOSIS,VOMITING/DIARRHEA [id number] 01/30/2017 23:00:00 017 01:01:00 DIS Emergency THAO TOBAR MD [facility] ER HEADACHE [id number] 12/28/2016 09:26:00 017 11:49:00 DIS Emergency LANA MARINELLI [facility] ER FALL/R FOOT INJ [id number] 08/18/2016 21:13:00 017 11:55:00 DIS Inpatient JALEN PEREZ MD [facility] 4TH SEPSIS,UTI,N/V,HYPERGLY CEMIA [id number] 07/02/2015 16:13:00 11:51:00 DIS Inpatient PERKINS DO, AWA K [facility] 4TH UNCONTROLLED DM ACUTE R ENAL FAILURE LEUKOCYTOSIS [id number] 06/03/2015 21:21:00 15:15:00 DIS Inpatient LOBITO AQUINO, МАРИЯ Tan [facility] 4TH UNCONTROLLED DIABETES, HYPOTENSION,ARF,ANEMIA,UTI [id number] 05/23/2015 20:16:00 15:50:00 DIS Inpatient YUSUF AQUINO, JAIME Pink [facility] CSD R ARM/HAND AND LEG PARESTHESIAS,UNCONTROLLED DIABE [id number] 01/10/2015 08:48:00 11:33:00 DIS Emergency CHAI AQUINO, CLAUDETTE Chandra [facility] ER FALL/RIGHT ARM INJURY [id number] 10/07/2019 12:26:00 Document Registration [id number] 01/10/2015 08:47:00 Document Registration [id number] 01/10/2015 08:47:00 Document Registration [id number] 01/10/2015 08:47:00 Document Registration [id number] 01/10/2015 08:47:00 Document Registration [id number] 03/14/2019 13:10:02 ACT Unknown [id number] 09/15/2019 10:40:00 09/15/2019 23:59: 59 [facility] Outpatient JALEN PEREZ [facility] [id number] 12/22/2018 08:40:00 Document Registration [id number] 01/05/2018 16:40:00 Document Registration [id number] 10/07/2017 10:40:00 Document Registration [id number] 08/18/2017 16:40:00 Document Registration [id number] 07/01/2017 09:00:00 Document Registration
== END 2019-10-07 13:40 | disposition home or self-care (01) ==
LOC: EDUNIT# 12:11 → ER 12:12
DX: R07.89 Other chest pain (principal); I10 Essential (primary) hypertension; E78.00 Pure hypercholesterolemia, unspecified; I25.10 Atherosclerotic heart disease of native coronary artery without angina pectoris; E11.43 Type 2 diabetes mellitus with diabetic autonomic (poly)neuropathy; K31.84 Gastroparesis; Z79.82 Long term (current) use of aspirin; Z79.02 Long term (current) use of antithrombotics/antiplatelets; Z88.0 Allergy status to penicillin; Z88.6 Allergy status to analgesic agent; Z79.4 Long term (current) use of insulin; Z77.22 Contact with and (suspected) exposure to environmental tobacco smoke (acute) (chronic); Z98.51 Tubal ligation status; Z86.73 Personal history of transient ischemic attack (TIA), and cerebral infarction without residual deficits; Z82.49 Family history of ischemic heart disease and other diseases of the circulatory system; Z80.42 Family history of malignant neoplasm of prostate
CPT/HCPCS: 36415; 71045; 80053; 81000; 82150; 83690; 83735; 83874; 83880; 84484; 85025; 85610; 85730; 93005; 93041

== ENCOUNTER → 2019-12-29 | Outpatient (CLI) | payer MEDICARE ==
--- NOTE | 2019-12-29 17:34 | Diagnostic Imaging Report ---
INDICATION: Nausea and vomiting. EXAMINATION: Patient was administered 1.0 mCi technetium 99m sulfur colloid labeled to the test meal and imaging over the abdomen was performed. FINDINGS: Time of half emptying is calculated to be approximately 167 minutes. Normal values are typically 30 to 90 minutes. IMPRESSION: Delayed gastric emptying. Dictated by: Dictated on workstation # [id number]
== END ==
LOC: CARD 08:25
PROVIDERS: ATTEND Family Medicine
DX: R11.2 Nausea with vomiting, unspecified (principal)
CPT/HCPCS: 78264; A9541

== ENCOUNTER 2020-04-24 21:05 | Emergency (ER) | payer MEDICARE ==
[~2020-04-24] VITALS: Ht 157 cm; Wt 58.5 kg
[~2020-04-24 21:05] MED LIST changes: +NF-ZOL12.5 PO; -ZOLP12.546 PO
[2020-04-24 21:19] VITALS: BP 173/114
[2020-04-24] MEDS ORDERED: hydrALAZINE (APESOLINE) 20 MG/ML VIAL IV ONE (21:30)
--- NOTE | 2020-04-24 21:36 | ED Headache ---
General Stated Complaint: MIGRAINE Source: patient (PT IS LIMITED HISTORIAN ABOUT PMH. DOES NOT KNOW ANY OF HER MEDICATIONS EXCEPT INSULIN), old records History of Present Illness Date Seen by Provider: Apr 24, 2020 Time Seen by Provider: 21:23 Initial Comments PT ARRIVES VIA POV FROM HOME C/O HEADACHE X 3 DAYS--"MIGRAINE" STATES PAIN IS FROM TEMPLES, GOES ON BOTH SIDES OF HEAD, TO BACK OF HEAD RATES PAIN "10"--STATES SHE HAS BEEN TAKING TYLENOL FOR IT--LAST DOSE WAS AT 1800 TONIGHT SYMPTOMS ARE NO DIFFERENT TONIGHT IN ANY WAY HAS NOT SOUGHT CARE UNTIL TONIGHT STATES SHE GETS HEADACHES LIKE THIS 2-3 TIMES A MONTH STATES SHE HAS HAD WORK UP'S INCLUDING MRI AND NO CAUSE FOR HEADACHES FOUND PT STATES SHE SAW EYE DR ON THURSDAY AND WAS TOLD SHE NEEDED GLASSES, BUT THEY ARE NOT READY YET NO CHANGES IN VISION NO NAUSEA/VOMITING NO PARESHTESIAS OR MOTOR DEFICITS NO DIZZINESS OR SYNCOPE NO FEVER OR RECENT ILLNESS STATES SHE IS INSULIN DEPENDENT DIABETIC, HAS HTN, HIGH CHOLESTEROL, HAS NEUROPATHY, HAS HAD A STROKE STATES SHE HAS BEEN OUT OF HER MEDICATIONS SINCE YESTERDAY, BUT ONLY MEDICATION THAT SHE KNOWS IS INSULIN. STATES SHE HAS NO IDEA WHAT MEDICATIONS SHE TAKES. HAS NOT CHECKED BLOOD SUGAR TODAY PCP: DR. PEREZ AT [facility] Allergies and Home Medications Allergies Coded Allergies: Penicillins (Unverified Allergy, Unknown, 06/03/15) ibuprofen (Verified Allergy, Unknown, 02/18/07) peas (Verified Allergy, Unknown, 01/19/18) Home Medications Acetaminophen 500 Mg Tablet, 1,000 MG PO Q8H PRN for PAIN-MILD, (Reported) Azithromycin 250 Mg Tablet, 500 MG PO DAILY@1700 Prescribed by: JALEN PEREZ on 06/29/19 1502 Cefdinir 300 Mg Capsule, 300 MG PO BID Prescribed by: JALEN PEREZ on 06/29/19 1502 Clopidogrel Bisulfate 75 Mg Tablet, 75 MG PO DAILY, (Reported) Gabapentin 600 Mg Tablet, 600 MG PO Q8H, (Reported) Hydrocodone Bit/Acetaminophen 1 Each Tablet, 1 TAB PO Q8H PRN for PAIN-MODERATE, (Reported) Insulin Aspart 300 Units/3 Ml Solution, 10 UNITS SC TIDWM, (Reported) Insulin Detemir 100 Unit/1 Ml Insuln.pen, 16 UNITS SC BID, (Reported) Metoprolol Succinate 100 Mg Tab.er.24h, 100 MG PO DAILY, (Reported) Rosuvastatin Calcium 40 Mg Tablet, 40 MG PO DAILY, (Reported) Patient Home Medication List Home Medication List Reviewed: Yes Review of Systems Review of Systems Constitutional: no symptoms reported Eyes: See HPI Ears, Nose, Mouth, Throat: no symptoms reported Respiratory: no symptoms reported Cardiovascular: no symptoms reported Gastrointestinal: no symptoms reported Genitourinary: no symptoms reported Musculoskeletal: no symptoms reported Skin: no symptoms reported Psychiatric/Neurological: See HPI, Headache Past Gczlelk-Hqjfve-Xcehsx Hx Past Med/Social Hx: Reviewed and Corrections made Patient Social History Alcohol Use: Occasionally Uses Alcohol Beverage of Choice: Beer Recreational Drug Use: No Smoking Status: Current Everyday Smoker Type Used: Cigarettes 2nd Hand Smoke Exposure: Yes Recent Foreign Travel: No Contact w/Someone Who Travel: No Recent Hopitalizations: No Immunizations Up To Date Tetanus Booster (TDap): Unknown Seasonal Allergies Seasonal Allergies: No Past Medical History Surgeries: Yes Abdominal, Section, Ear Surgery, Gallbladder, Orthopedic, Tubal Ligation Respiratory: Yes (PLEURAL EFFUSION--RESOLVED) Asthma Currently Using CPAP: No Currently Using BIPAP: No Cardiac: Yes Coronary Artery Disease, High Cholesterol, Hypertension Neurological: Yes (CVA 12/2012--RIGHT SIDE WEAKNESS RESOLVED. 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, Menopausal Sexually Transmitted Disease: No HIV/AIDS: No Genitourinary: Yes Bladder Infection, Renal Failure Gastrointestinal: Yes (GASTROPARESIS; UMBILICAL HERNIA REPAIR) Abdominal Hernia, Gastroesophageal Reflux Musculoskeletal: Yes (BILAT FEMUR FX/ORIF'S;R ULNA FX/NO SURGERY;L CARPAL TUNNEL;CHRONIC GEN PAIN) Degenerate Disk Disease, Chronic Back Pain, Fractures Endocrine: Yes (NON-COMPLIANCE; POOR CONTROL; MULTIPLE EPISODES OF DKA) Diabetes, Insulin dep HEENT: Yes (BMT'S ; EAR DRUM SURGERY X 4) Chronic Ear Infection Loss of Vision: Denies Hearing Impairment: Denies Cancer: No Psychosocial: Yes (MOOD DISORDER) Sleep Difficulties, Anxiety, Personality Disorder, Depression Integumentary: No Blood Disorders: No Adverse Reaction/Blood Tranf: No Family Medical History Cardiovascular disease 19 FATHER 19 MOTHER G8 BROTHER Diabetes mellitus 19 FATHER FH: chronic obstructive pulmonary disease G8 BROTHER Prostate cancer 19 FATHER Heart Disease, Cancer, CAD Under 55 Years Old, COPD, Diabetes, Hypertension, Lung Disease, Psychiatric Problems, Vascular Disease, Other Conditions/Hx SOCIAL HISTORY: -ETOH--RARELY USES -DRUGS--DENIES USE -SMOKES 1 PPD PAST SURGICAL HISTORY: -BILATERAL MYRINGOTOMY TUBES -EAR DRUM SURGERY X 4 -C-SECTIONS X 4 -BILATERAL TUBAL LIGATION -BILATERAL FEMUR FRACTURES/ORIF'S WITH RODS/PLATES -LEFT CARPAL TUNNEL SURGERY -CHOLECYSTECTOMY -UMBILICAL HERNIA REPAIR -OVARIAN CYST REMOVAL NON COMPLIANCE Physical Exam Vital Signs Vital Signs - First Documented 04/24/20 21:19 Temp 35.7 Pulse 103 Resp 16 B/P (MAP) 173/114 (133) O2 Delivery Room Air Capillary Refill : Height, Weight, BMI Height: 5'2.00" Weight: 128lbs. 1.0oz. [id number]; 23.00 BMI Method:Stated General Appearance: WD/WN, no apparent distress, thin, other (UNKEMPT; DOES NOT APPEAR TO BE IN ANY DISCOMFORT OR DISTRESS) HEENT: PERRL/EOMI, pharynx normal; No photophobia; other (TM'S SCLEROTIC; EDENTULOUS) Neck: non-tender, full range of motion, supple, normal inspection; No carotid bruit Cardiovascular: normal peripheral pulses, regular rate, rhythm, no edema, no JVD, no murmur Respiratory: normal breath sounds, no respiratory distress, no accessory muscle use Gastrointestinal: normal bowel sounds, non tender, soft, no organomegaly Extremities: normal inspection, normal capillary refill Psychiatric: alert Crainal Nerves: normal hearing, normal speech Coordination/Gait: normal gait Motor/Sensory: no motor deficit, no pronator drift, sensory deficit (PERIPHERAL NEUROPATHY) Skin: normal color, warm/dry; No rash Progress/Results/Core Measures Results/Orders Lab Results Laboratory Tests Test 04/24/20 21:30 Range/Units White Blood Count 6.9 4.3-11.0 10^3/uL Red Blood Count 3.78 L 3.80-5.11 10^6/uL Hemoglobin 11.3 L 11.5-16.0 g/dL Hematocrit 34 L 35-52 % Mean Corpuscular Volume 90 80-99 fL Mean Corpuscular Hemoglobin 30 25-34 pg Mean Corpuscular Hemoglobin Concent 33 32-36 g/dL Red Cell Distribution Width 11.9 10.0-14.5 % Platelet Count 271 130-400 10^3/uL Mean Platelet Volume 10.4 9.0-12.2 fL Immature Granulocyte % (Auto) 0 % Neutrophils (%) (Auto) 46 42-75 % Lymphocytes (%) (Auto) 43 12-44 % Monocytes (%) (Auto) 8 0-12 % Eosinophils (%) (Auto) 3 0-10 % Basophils (%) (Auto) 0 0-10 % Neutrophils # (Auto) 3.2 1.8-7.8 10^3/uL Lymphocytes # (Auto) 3.0 1.0-4.0 10^3/uL Monocytes # (Auto) 0.6 0.0-1.0 10^3/uL Eosinophils # (Auto) 0.2 0.0-0.3 10^3/uL Basophils # (Auto) 0.0 0.0-0.1 10^3/uL Immature Granulocyte # (Auto) 0.0 0.0-0.1 10^3/uL Prothrombin Time 12.0 L 12.2-14.7 SEC INR Comment 0.9 0.8-1.4 Activated Partial Thromboplast Time 26 24-35 SEC Sodium Level 133 L 135-145 MMOL/L Potassium Level 3.7 3.6-5.0 MMOL/L Chloride Level 101 98-107 MMOL/L Carbon Dioxide Level 21 21-32 MMOL/L Anion Gap 11 5-14 MMOL/L Blood Urea Nitrogen 21 H 7-18 MG/DL Creatinine 1.87 H 0.60-1.30 MG/DL Estimat Glomerular Filtration Rate 28 BUN/Creatinine Ratio 11 Glucose Level 442 *H 70-105 MG/DL Calcium Level 10.6 H 8.5-10.1 MG/DL Corrected Calcium 10.9 H 8.5-10.1 MG/DL Magnesium Level 1.9 1.6-2.4 MG/DL Total Bilirubin 0.4 0.1-1.0 MG/DL Aspartate Amino Transf (AST/SGOT) 10 5-34 U/L Alanine Aminotransferase (ALT/SGPT) 8 0-55 U/L Alkaline Phosphatase 146 H 40-136 U/L Total Protein 7.4 6.4-8.2 GM/DL Albumin 3.6 3.2-4.5 GM/DL My Orders Orders - JUDITH MCNEAL DO Ed Iv/Invasive Line Start (04/24/20 21:30) Monitor-Rhythm Ecg Trace Only (04/24/20:30) Cbc With Automated Diff (04/24/20 21:30) Comprehensive Metabolic Panel (04/24/20:30) Magnesium (04/24/20 21:30) Protime With Inr (04/24/20:) Partial Thromboplastin Time (04/24/20:) Hydralazine Injection (Apresoline Inject (04/24/20:30) Vital Signs/I&O 04/24/20 21:19 Temp 35.7 Pulse 103 Resp 16 B/P (MAP) 173/114 (133) O2 Delivery Room Air Progress Progress Note : Progress Note BP ELEVATED. ADVISED PT OF NEED FOR MEDICATIONS FOR BLOOD PRESSURE THIS MAY BE CONTRIBUTING TO HER HEADACHE, AND NEED FOR LAB, ETC DUE TO DIABETES AND RUNNING OUT OF MEDICATIONS 2143--AFTER INITIALLY AGREEING TO THE ABOVE, PT NOW STATES SHE JUST WANTS TO GO HOME AND SHE WILL GET HER MEDICATIONS FILLED TOMORROW AND SEE DR. PEREZ TOMORROW. AMA PAPERS SIGNED. PT WALKS OUT OF ER WITHOUT DIFFICULTY. Departure Impression Primary Impression: Left against medical advice Disposition: 07 AGAINST MEDICAL ADVICE Condition: Against Medical Advice Departure-Patient Inst. Referrals: JALEN PEREZ MD (PCP/Family) Primary Care Physician UJDITH MCNEAL DO Apr 24, 2020 21:36
[2020-04-24 21:45] LABS: BASOPHILS % (AUTO) 0 % (0-10); EOSINOPHILS # (AUTO) 0.2 10^3/uL (0.0-0.3); EOSINOPHILS % (AUTO) 3 % (0-10); HEMATOCRIT 34 % (35-52); HEMOGLOBIN 11.3 g/dL (11.5-16.0); LYMPHOCYTES % (AUTO) 43 % (12-44); MEAN CORPUSCULAR HEMOGLOBIN 30 pg (25-34); MEAN CORPUSCULAR HGB CONC 33 g/dL (32-36); MEAN CORPUSCULAR VOLUME 90 fL (80-99); MEAN PLATELET VOLUME 10.4 fL (9.0-12.2); MONOCYTES # (AUTO) 0.6 10^3/uL (0.0-1.0); MONOCYTES % (AUTO) 8 % (0-12); NEUTROPHILS # (AUTO) 3.2 10^3/uL (1.8-7.8); NEUTROPHILS % (AUTO) 46 % (42-75); PLATELET COUNT 271 10^3/uL (130-400); WHITE BLOOD COUNT 6.9 10^3/uL (4.3-11.0)
--- NOTE | 2020-04-24 21:45 | NUR ---
DR. MCNEAL NOTIFIED THIS SIMONIZER/RN THAT PT STATES SHE IS READY TO LEAVE AND WILL FILL PRESCRIPTIONS TOMORROW FOR BP AND INSULIN. RISKS AND BENEFITS OF LEAVING AMA DISCUSSED WITH PT WHO VERBALIZED UNDERSTANDING. AMA FORM/REFUSAL OF TREATMENT SIGNED BY PT AND THIS SIMONIZER/RN.
[2020-04-24 21:55] LABS: ALBUMIN 3.6 GM/DL (3.2-4.5)
[2020-04-24 21:56] LABS: POTASSIUM 3.7 MMOL/L (3.6-5.0)
[2020-04-24 21:57] LABS: CALCIUM 10.6 MG/DL (8.5-10.1); INR 0.9 (0.8-1.4)
[2020-04-24 21:58] LABS: TOTAL PROTEIN 7.4 GM/DL (6.4-8.2)
[2020-04-24 22:00] LABS: BILIRUBIN,TOTAL 0.4 MG/DL (0.1-1.0)
[2020-04-24 22:02] LABS: CREATININE SERUM 1.87 MG/DL (0.60-1.30)
[2020-04-24 22:04] LABS: MAGNESIUM 1.9 MG/DL (1.6-2.4)
== END 2020-04-24 21:46 | disposition left against medical advice (07) ==
LOC: EDUNIT# 21:05 → ER 21:06
DX: R51.9 Headache, unspecified (principal); I10 Essential (primary) hypertension; E78.00 Pure hypercholesterolemia, unspecified; E11.43 Type 2 diabetes mellitus with diabetic autonomic (poly)neuropathy; K31.84 Gastroparesis; E11.10 Type 2 diabetes mellitus with ketoacidosis without coma; J45.909 Unspecified asthma, uncomplicated; I25.10 Atherosclerotic heart disease of native coronary artery without angina pectoris; F17.210 Nicotine dependence, cigarettes, uncomplicated; Z88.0 Allergy status to penicillin; Z86.73 Personal history of transient ischemic attack (TIA), and cerebral infarction without residual deficits; Z88.5 Allergy status to narcotic agent; Z91.018 Allergy to other foods; Z79.4 Long term (current) use of insulin; Z79.02 Long term (current) use of antithrombotics/antiplatelets; Z98.51 Tubal ligation status; Z80.42 Family history of malignant neoplasm of prostate
CPT/HCPCS: 36415; 80053; 83735; 85025; 85610; 85730; 93041

== ENCOUNTER 2020-05-14 14:46 | Emergency (ER) | payer MEDICAID, MEDICARE ==
[~2020-05-14] VITALS: Ht 157 cm; Wt 45.5 kg
[2020-05-14] MEDS ORDERED: LACTATED RINGERS 1,000 ML IV ONE (14:52)
[2020-05-14] MEDS ORDERED: NS IV 1000 ML 1,000 ML IV SCH ×2 (15:00→15:53)
[2020-05-14] MEDS ORDERED: NS IV 1000 ML 1,000 ML ONE (15:02)
[2020-05-14] MEDS ORDERED: LORazepam INJ 2 MG/ML (ATIVAN) VIAL IVP ONE ×3 (15:30→17:15)
[2020-05-14 15:38] LABS: BASOPHILS % (AUTO) 0 % (0-10); EOSINOPHILS % (AUTO) 0 % (0-10); HEMATOCRIT 40 % (35-52); HEMOGLOBIN 12.7 g/dL (11.5-16.0); LYMPHOCYTES # (AUTO) 1.1 10^3/uL (1.0-4.0); LYMPHOCYTES % (AUTO) 13 % (12-44); MEAN CORPUSCULAR HEMOGLOBIN 30 pg (25-34); MEAN CORPUSCULAR HGB CONC 32 g/dL (32-36); MEAN CORPUSCULAR VOLUME 95 fL (80-99); MONOCYTES # (AUTO) 0.4 10^3/uL (0.0-1.0); MONOCYTES % (AUTO) 4 % (0-12); NEUTROPHILS # (AUTO) 7.3 10^3/uL (1.8-7.8); NEUTROPHILS % (AUTO) 83 % (42-75); PLATELET COUNT 203 10^3/uL (130-400); WHITE BLOOD COUNT 8.8 10^3/uL (4.3-11.0)
[2020-05-14 15:46] LABS: ABG BASE EXCESS -10.8 MMOL/L (-2.5-2.5); ABG OXYGEN SATURATION 96 % (94-100); ABG PCO2 32 MMHG (35-45); ABG PO2 84 MMHG (79-93); ABG TCO2 15.9 MMOL/L (21.0-31.0)
[2020-05-14 15:47] LABS: BILIRUBIN,URINE NEGATIVE (NEGATIVE); CLARITY,URINE CLEAR; COLOR,URINE YELLOW; GLUCOSE, URINE (UA) 3+ (NEGATIVE); KETONES,URINE NEGATIVE (NEGATIVE); LEUKOCYTE ESTERASE ,URINE NEGATIVE (NEGATIVE); NITRITE,URINE NEGATIVE (NEGATIVE); PH,URINE 5.5 (5-9); PROTEIN,URINE 3+ (NEGATIVE)
[2020-05-14 15:50] LABS: CHLORIDE 92 MMOL/L (98-107); INR 0.9 (0.8-1.4); POTASSIUM 3.3 MMOL/L (3.6-5.0); PROTHROMBIN TIME PATIENT 12.9 SEC (12.2-14.7); SODIUM 126 MMOL/L (135-145)
[2020-05-14 15:51] LABS: ALBUMIN 3.2 GM/DL (3.2-4.5)
[2020-05-14 15:52] LABS: AMYLASE 41 U/L (25-125)
[2020-05-14 15:53] LABS: TOTAL PROTEIN 6.9 GM/DL (6.4-8.2)
[2020-05-14 15:54] LABS: CARBON DIOXIDE 14 MMOL/L (21-32)
[2020-05-14 15:55] LABS: BILIRUBIN,TOTAL 0.5 MG/DL (0.1-1.0)
[2020-05-14 15:56] LABS: AMORPHOUS SEDIMENT,UR LARGE AMOR URATES /LPF; BACTERIA,URINE FEW /HPF; SQUAMOUS EPITHELIAL CELL,UR RARE /HPF; WBC,URINE 0-2 /HPF
[2020-05-14 15:57] LABS: ALKALINE PHOSPHATASE 145 U/L (40-136); CREATININE SERUM 3.67 MG/DL (0.60-1.30); GFR ESTIMATED 13
[2020-05-14 15:58] LABS: ACETAMINOPHEN < 10 UG/ML (10-30); BUN/CREATININE RATIO 15
--- NOTE | 2020-05-14 15:58 | ED General ---
General Stated Complaint: N/V STROKE LIKE SYMPTOM Source of Information: Old Records (ALL PMH IS FROM OLD RECORDS) History of Present Illness Date Seen by Provider: May 14, 2020 Time Seen by Provider: 14:49 Initial Comments PT ARRIVES VIA POV--FULL ASSIST OUT OF VEHICLE PERSON WHO BROUGHT PT IS UNABLE TO PROVIDE ANY INFORMATION OTHER THAN ALTERED MENTAL STATUS PT IS KNOWN TO ER STAFF PT IS INSULIN DEPENDENT DIABETIC WITH VERY LONGSTANDING HISTORY OF EXTREME NON- COMPLIANCE IN ALL ASPECTS OF CARE. HAS HAD MULTIPLE EPISODES OF DKA, WELL HX OF HX OF CVA 12/2012 WITH RESOLVED RIGHT SIDED WEAKNESS. BY HISTORY, PT FREQUENTLY DOES NOT TAKE ANY OF HER PRESCRIBED MEDICATIONS FOR LONG PERIODS OF TIME. PT WAS HERE 04/24/20 FOR HEADACHE, HAD LAB DONE, BUT THEN LEFT AMA. PCP: [facility] ; DR. PEREZ Allergies and Home Medications Allergies Coded Allergies: Penicillins (Unverified Allergy, Unknown, 06/03/15) ibuprofen (Verified Allergy, Unknown, 02/18/07) peas (Verified Allergy, Unknown, 01/19/18) Home Medications Acetaminophen 500 Mg Tablet, 1,000 MG PO Q8H PRN for PAIN-MILD, (Reported) Azithromycin 250 Mg Tablet, 500 MG PO DAILY@1700 Prescribed by: JALEN PEREZ on 06/29/19 1502 Cefdinir 300 Mg Capsule, 300 MG PO BID Prescribed by: JALEN PEREZ on 06/29/19 1502 Clopidogrel Bisulfate 75 Mg Tablet, 75 MG PO DAILY, (Reported) Gabapentin 600 Mg Tablet, 600 MG PO Q8H, (Reported) Hydrocodone Bit/Acetaminophen 1 Each Tablet, 1 TAB PO Q8H PRN for PAIN-MODERATE, (Reported) Insulin Aspart 300 Units/3 Ml Solution, 10 UNITS SC TIDWM, (Reported) Insulin Detemir 100 Unit/1 Ml Insuln.pen, 16 UNITS SC BID, (Reported) Metoprolol Succinate 100 Mg Tab.er.24h, 100 MG PO DAILY, (Reported) Rosuvastatin Calcium 40 Mg Tablet, 40 MG PO DAILY, (Reported) Review of Systems Review of Systems Constitutional: other (UNABLE TO OBTAIN) Past Exyqsvt-Mgdbwm-Pvzaxh Hx Past Med/Social Hx: Reviewed and Corrections made Patient Social History Alcohol Use: Rarely Uses Alcohol Beverage of Choice: Beer Recreational Drug Use: No (DENIES) Smoking Status: Current Everyday Smoker (1 PPD) Type Used: Cigarettes 2nd Hand Smoke Exposure: Yes Recent Hopitalizations: No Immunizations Up To Date Tetanus Booster (TDap): Unknown Seasonal Allergies Seasonal Allergies: No Past Medical History Surgeries: Yes Abdominal, Section, Ear Surgery, Gallbladder, Orthopedic, Tubal Ligation Respiratory: Yes (PLEURAL EFFUSION--RESOLVED) Asthma Currently Using CPAP: No Currently Using BIPAP: No Cardiac: Yes Coronary Artery Disease, High Cholesterol, Hypertension Neurological: Yes (CVA 12/2012--RIGHT SIDE WEAKNESS RESOLVED. 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, Menopausal Sexually Transmitted Disease: No HIV/AIDS: No Genitourinary: Yes Bladder Infection, Renal Failure Gastrointestinal: Yes (GASTROPARESIS; UMBILICAL HERNIA REPAIR) Abdominal Hernia, Gastroesophageal Reflux Musculoskeletal: Yes (BILAT FEMUR FX/ORIF'S;R ULNA FX/NO SURGERY;L CARPAL TUNNEL;CHRONIC GEN PAIN) Degenerate Disk Disease, Chronic Back Pain, Fractures Endocrine: Yes (NON-COMPLIANCE; POOR CONTROL; MULTIPLE EPISODES OF DKA) Diabetes, Insulin dep HEENT: Yes (BMT'S ; EAR DRUM SURGERY X 4) Chronic Ear Infection Loss of Vision: Denies Hearing Impairment: Denies Cancer: No Psychosocial: Yes (MOOD DISORDER) Sleep Difficulties, Anxiety, Personality Disorder, Depression Integumentary: No Blood Disorders: No Adverse Reaction/Blood Tranf: No Family Medical History Cardiovascular disease 19 FATHER 19 MOTHER G8 BROTHER Diabetes mellitus 19 FATHER FH: chronic obstructive pulmonary disease G8 BROTHER Prostate cancer 19 FATHER Heart Disease, Cancer, CAD Under 55 Years Old, COPD, Diabetes, Hypertension, Lung Disease, Psychiatric Problems, Vascular Disease, Other Conditions/Hx SOCIAL HISTORY: -ETOH--RARELY USES -DRUGS--DENIES USE -SMOKES 1 PPD PAST SURGICAL HISTORY: -BILATERAL MYRINGOTOMY TUBES -EAR DRUM SURGERY X 4 -C-SECTIONS X 4 -BILATERAL TUBAL LIGATION -BILATERAL FEMUR FRACTURES/ORIF'S WITH RODS/PLATES -LEFT CARPAL TUNNEL SURGERY -CHOLECYSTECTOMY -UMBILICAL HERNIA REPAIR -OVARIAN CYST REMOVAL EXTREME NON COMPLIANCE IN ALL ASPECTS OF CARE Physical Exam Vital Signs Vital Signs - First Documented 05/14/20 14:46 Temp 35.7 Pulse 98 Resp 20 B/P (MAP) 104/82 (89) Pulse Ox 97 O2 Delivery Room Air Capillary Refill : Height, Weight, BMI Height: 5'2.00" Weight: 128lbs. 1.0oz. 58.614052hl; 23.00 BMI Method:Stated General Appearance: Other (PT IS MOANING, THRASHING ALL OVER, INCOHERENT, COMBATIVE. RANDOM MUSCLE TWITCHING. DIRTY, UNKEMPT. COVERED IN ANIMAL HAIR. ) HEENT: PERRL/EOMI (PUPILS PINPOINT), Other (EDENTULOUS. ORAL MUCOSA VERY DRY. ) Respiratory: Normal Breath Sounds Cardiovascular: Regular Rate, Rhythm, No Murmur Gastrointestinal: Soft Extremity: No Pedal Edema, Other (MOVING ALL EXTREMITIES EQUALLY. ) Neurologic/Psychiatric: Other (MENTATION ABOVE. PT IS NOT TALKING OR FOLLOWING COMMANDS. ) Skin: Normal Color, Warm/Dry Progress/Results/Core Measures Suspected Sepsis SIRS Temperature: Pulse: Respiratory Rate: Laboratory Tests 05/14/20 15:19: White Blood Count 8.8 Blood Pressure / Mean: Laboratory Tests 05/14/20 15:19: Creatinine 3.67H, INR Comment 0.9, Platelet Count 203, Total Bilirubin 0.5 Results/Orders Lab Results Laboratory Tests Test 05/14/20 15:00 05/14/20 15:19 05/14/20 15:36 05/14/20 15:39 Range/Units Glucometer > 600 *H 70-110 MG/DL White Blood Count 8.8 4.3-11.0 10^3/uL Red Blood Count 4.24 3.80-5.11 10^6/uL Hemoglobin 12.7 11.5-16.0 g/dL Hematocrit 40 35-52 % Mean Corpuscular Volume 95 80-99 fL Mean Corpuscular Hemoglobin 30 25-34 pg Mean Corpuscular Hemoglobin Concent 32 32-36 g/dL Red Cell Distribution Width 12.7 10.0-14.5 % Platelet Count 203 130-400 10^3/uL Mean Platelet Volume 11.0 9.0-12.2 fL Immature Granulocyte % (Auto) 0 % Neutrophils (%) (Auto) 83 H 42-75 % Lymphocytes (%) (Auto) 13 12-44 % Monocytes (%) (Auto) 4 0-12 % Eosinophils (%) (Auto) 0 0-10 % Basophils (%) (Auto) 0 0-10 % Neutrophils # (Auto) 7.3 1.8-7.8 10^3/uL Lymphocytes # (Auto) 1.1 1.0-4.0 10^3/uL Monocytes # (Auto) 0.4 0.0-1.0 10^3/uL Eosinophils # (Auto) 0.0 0.0-0.3 10^3/uL Basophils # (Auto) 0.0 0.0-0.1 10^3/uL Immature Granulocyte # (Auto) 0.0 0.0-0.1 10^3/uL Prothrombin Time 12.9 12.2-14.7 SEC INR Comment 0.9 0.8-1.4 Activated Partial Thromboplast Time 22 L 24-35 SEC Sodium Level 126 L 135-145 MMOL/L Potassium Level 3.3 L 3.6-5.0 MMOL/L Chloride Level 92 L 98-107 MMOL/L Carbon Dioxide Level 14 L 21-32 MMOL/L Anion Gap 20 H 5-14 MMOL/L Blood Urea Nitrogen 55 H 7-18 MG/DL Creatinine 3.67 H 0.60-1.30 MG/DL Estimat Glomerular Filtration Rate 13 BUN/Creatinine Ratio 15 Glucose Level 1402 *H 70-105 MG/DL Calcium Level 10.0 8.5-10.1 MG/DL Corrected Calcium 10.6 H 8.5-10.1 MG/DL Magnesium Level 2.8 H 1.6-2.4 MG/DL Total Bilirubin 0.5 0.1-1.0 MG/DL Aspartate Amino Transf (AST/SGOT) 11 5-34 U/L Alanine Aminotransferase (ALT/SGPT) 14 0-55 U/L Alkaline Phosphatase 145 H 40-136 U/L Total Creatine Kinase 68 29-168 U/L Creatine Kinase MB 2.1 <6.6 NG/ML Myoglobin 323.9 H 10.0-92.0 NG/ML Troponin I < 0.028 <0.028 NG/ML Total Protein 6.9 6.4-8.2 GM/DL Albumin 3.2 3.2-4.5 GM/DL Amylase Level 41 25-125 U/L Lipase 36 8-78 U/L Acetaminophen Level < 10 L 10-30 UG/ML Serum Alcohol < 10 <10 MG/DL Blood Gas Puncture Site LT BRACHIAL Blood Gas Patient Temperature 35.7 Arterial Blood pH 7.28 *L 7.37-7.43 Arterial Blood Partial Pressure CO2 32 L 35-45 MMHG Arterial Blood Partial Pressure O2 84 79-93 MMHG Arterial Blood HCO3 15 *L 23-27 MMOL/L Arterial Blood Total CO2 15.9 L 21.0-31.0 MMOL/L Arterial Blood Oxygen Saturation 96 94-100 % Arterial Blood Base Excess -10.8 L -2.5-2.5 MMOL/L Brett Test POS Blood Gas Ventilator Setting NO Blood Gas Inspired Oxygen ROOM AIR Urine Color YELLOW Urine Clarity CLEAR Urine pH 5.5 5-9 Urine Specific [place] 1.015 L 1.016-1.022 Urine Protein 3+ H NEGATIVE Urine Glucose (UA) 3+ H NEGATIVE Urine Ketones NEGATIVE NEGATIVE Urine Nitrite NEGATIVE NEGATIVE Urine Bilirubin NEGATIVE NEGATIVE Urine Urobilinogen 0.2 < = 1.0 MG/DL Urine Leukocyte Esterase NEGATIVE NEGATIVE Urine RBC (Auto) 2+ H NEGATIVE Urine RBC 5-10 H /HPF Urine WBC 0-2 /HPF Urine Squamous Epithelial Cells RARE /HPF Urine Crystals PRESENT H /LPF Urine Amorphous Sediment LARGE FOUZIA URATES H /LPF Urine Bacteria FEW H /HPF Urine Casts NONE /LPF Urine Mucus NEGATIVE /LPF Urine Culture Indicated YES Urine Opiates Screen POSITIVE H NEGATIVE Urine Oxycodone Screen NEGATIVE NEGATIVE Urine Methadone Screen NEGATIVE NEGATIVE Urine Propoxyphene Screen NEGATIVE NEGATIVE Urine Barbiturates Screen NEGATIVE NEGATIVE Ur Tricyclic Antidepressants Screen NEGATIVE NEGATIVE Urine Phencyclidine Screen NEGATIVE NEGATIVE Urine Amphetamines Screen NEGATIVE NEGATIVE Urine Methamphetamines Screen NEGATIVE NEGATIVE Urine Benzodiazepines Screen NEGATIVE NEGATIVE Urine Cocaine Screen NEGATIVE NEGATIVE Urine Cannabinoids Screen NEGATIVE NEGATIVE Test 05/14/20 15:47 Range/Units Coronavirus 2019 (RONALD) Negative Negative My Orders Orders - JUDITH MCNEAL DO Ed Iv/Invasive Line Start (05/14/20 14:52) Ekg Tracing (05/14/20 14:52) Catheter(Urinary) Insert & Ass 03,15 (05/14/20 14:52) Monitor-Rhythm Ecg Trace Only (05/14/20 14:52) Acetaminophen (05/14/20 14:52) Alcohol (05/14/20 14:52) Cbc With Automated Diff (05/14/20 14:52) Comprehensive Metabolic Panel (05/14/20 14:52) Creatine Kinase (05/14/20 14:52) Creatine Kinase Mb (05/14/20 14:52) Drug Screen Stat (Urine) (05/14/20 14:52) Magnesium (05/14/20 14:52) Protime With Inr (05/14/20 14:52) Partial Thromboplastin Time (05/14/20 14:52) Ua Culture If Indicated (05/14/20 14:52) Myoglobin Serum (05/14/20 14:52) Troponin I (05/14/20 14:52) Ed Iv/Invasive Line Start (05/14/20 14:52) Lactated Ringers (Lr 1000 Ml Iv Solution (05/14/20 14:52) Accucheck Stat ONCE (05/14/20 14:58) Ed Iv/Invasive Line Start (05/14/20 15:00) Ns Iv 1000 Ml (Sodium Chloride 0.9%) (05/14/20 15:00) Amylase (05/14/20 15:00) Lipase (05/14/20 15:00) Covid 19 Inhouse Test (05/14/20 15:00) Ns Iv 1000 Ml (Sodium Chloride 0.9%) (05/14/20 15:02) Lorazepam Injection (Ativan Injection) (05/14/20 15:30) Arterial Blood Gas (05/14/20 15:36) Arterial Blood Draw (05/14/20 ) Chest 1 View, Ap/Pa Only (05/14/20 15:43) Ct Head Wo-R/O Stroke (05/14/20 15:46) Ed Iv/Invasive Line Start (05/14/20 15:53) Ns Iv 1000 Ml (Sodium Chloride 0.9%) (05/14/20 15:53) Urine Culture (05/14/20 15:39) Sodium Bicarbonate 8.4% Vial (Sodium Bic (05/14/20 16:15) Ns W/Kcl 20 Meq/L (Ns Iv W/Kcl 20 Meq/L) (05/14/20 16:15) Insulin (Regular) Human (Novolin R (Per (05/14/20 16:45) Insulin Regular Drip (Myxredlin 100 Unit (05/14/20 16:45) Lorazepam Injection (Ativan Injection) (05/14/20 17:00) Lorazepam Injection (Ativan Injection) (05/14/20 17:15) Ekg Tracing (05/14/20 17:02) Accucheck Stat ONCE (05/14/20 17:51) Medications Given in ED Current Medications Medications Dose Ordered Sig/Dianne Route Start Time Stop Time Status Last Admin Dose Admin Insulin Human Regular 20 unit ONCE ONCE IV 05/14/20 16:45 05/14/20 16:46 DC 05/14/20 16:43 20 UNIT Lorazepam 1 mg ONCE ONCE IVP 05/14/20 15:30 05/14/20 15:31 DC 05/14/20 15:28 1 MG Lorazepam 2 mg ONCE ONCE IVP 05/14/20 17:00 05/14/20 17:01 DC 05/14/20 17:07 2 MG Sodium Bicarbonate 50 meq ONCE ONCE IV 05/14/20 16:15 05/14/20 16:16 DC 05/14/20 16:28 50 MEQ Vital Signs/I&O 05/14/20 14:46 Temp 35.7 Pulse 98 Resp 20 B/P (MAP) 104/82 (89) Pulse Ox 97 O2 Delivery Room Air Capillary Refill : Point of Care Testing Finger Stick Blood Glucose: 500 Blood Glucose Action Taken: HIGH- NOTIFIED ELIZABET Progress Note : Progress Note GIVEN ATIVAN FOR COMBATIVENESS, WITH IMPROVEMENT IN BEHAVIOR-PT REMAINS INCOHERENT AND IS NOT TALKING OR FOLLOWING COMMANDS. EVENTUALLY PT ABLE TO REST. O2 SATS REMAIN IN UPPER 90'S TO 100% ON ROOM AIR VITALS STABLE NO DETERIORATION IN PT'S CONDITION DURING ER STAY GIVEN IV FLUIDS AND STARTED ON INSULIN DRIP LAB DONE ON 04/24/20: PT LEFT AMA FROM ER AT THAT TIME. BUN 21 CR 1.87 GLUCOSE 442 ECG Initial ECG Impression Date: May 14, 2020 Initial ECG Impression Time: 15:05 Initial ECG Rate: 98 Initial ECG Rhythm: Normal Sinus (MUCH ARTIFACT--VERY LIMITED EXAM) Diagnostic Imaging Comments CXR--NO ACUTE PROCESS, PER RADIOLOGIST REPORT CT HEAD--NO ACUTE PROCESS, PER RADIOLOGIST REPORT. Reviewed: Reviewed by Me Departure Communication (Admissions) Family Conversation 1707--PT'S , TOMMY, CALLED. UPDATED HIM ON PT'S CONDITION. HE IS A VERY POOR HISTORIAN. HE STATES HE HAS BEEN WITH HER ALL DAY--STATES SHE WAS JUST LAYING AROUND ALL DAY, A COUPLE OF HOURS AGO SHE "STARTED ACTING LIKE THIS" . HE STATES SHE STARTED VOMITING 4 DAYS AGO. HE HAS NO IDEA IF SHE HAS CHECKED HER BLOOD SUGAR OR TAKEN ANY MEDICATIONS OR HER INSULIN. NO ICU BEDS AVAILABLE HERE 1549--CALLED [facility], NO BEDS AVAILABLE 1550--CALLED [facility], NO BEDS AVAILABLE IN [facility] 1654--CALLED [facility], HAVE A BED. WILL HAVE HOSPITALIST CALL BACK 1708--SPOKE WITH RESIDENT DR. MILES, AND DR. PHILLIP IS THE ATTENDING PHYSICIAN WHO IS ACCEPTING THE PT FOR TRANSFER/ADMIT. NO ADDITIONAL RECOMMENDATIONS AT THIS TIME Impression Primary Impression: Altered mental status Additional Impressions: DKA (diabetic ketoacidoses) Acute renal failure Hyponatremia Hypokalemia Disposition: 02 XFER SHT-TRM HOSP Condition: Stable Transfer Transfer Reason: Diversion Transfer Facility: [facility] Method of Transfer: EMS ([facility]) Departure-Patient Inst. Referrals: JALEN PEREZ MD (PCP/Family) Primary Care Physician JUDITH MCNEAL DO May 14, 2020 15:58
[2020-05-14 16:00] LABS: ALANINE AMINOTRANSFERASE 14 U/L (0-55); MAGNESIUM 2.8 MG/DL (1.6-2.4)
[2020-05-14 16:00] LABS: AMPHETAMINE SCREEN, URINE NEGATIVE (NEGATIVE); BARBITURATE SCREEN URINE NEGATIVE (NEGATIVE); BENZODIAZEPINES SCREEN URINE NEGATIVE (NEGATIVE); CANNABINOID SCREEN, URINE NEGATIVE (NEGATIVE); COCAINE SCREEN URINE NEGATIVE (NEGATIVE); METHADONE STAT NEGATIVE (NEGATIVE); METHAMPHETAMINE SCREEN URINE S NEGATIVE (NEGATIVE); OPIATE SCREEN URINE POSITIVE (NEGATIVE); OXYCODONE STAT NEGATIVE (NEGATIVE); PROPOXYPHENE STAT NEGATIVE (NEGATIVE); TRICYCLIC ANTIDEPRESSANTS SCRE NEGATIVE (NEGATIVE)
[2020-05-14 16:01] LABS: CREATINE KINASE 68 U/L (29-168); LIPASE 36 U/L (8-78)
[2020-05-14 16:03] LABS: ABG PH 7.28 (7.37-7.43)
[2020-05-14 16:04] LABS: ALLENS TEST POS; INSPIRED O2 ROOM AIR; PATIENT TEMP 35.7; VENTILATOR NO
[2020-05-14 16:08] LABS: CREATINE KINASE MB 2.1 NG/ML (<6.6)
[2020-05-14] MEDS ORDERED: NS W/KCL 20 MEQ/L 1,000 ML IV SCH (16:15)
[2020-05-14] MEDS ORDERED: SODIUM BICARB 8.4% 50 MEQ/50 ML VIAL IV ONE (16:15)
--- NOTE | 2020-05-14 16:29 | Diagnostic Imaging Report ---
EXAMINATION: CT head without contrast. TECHNIQUE: Multiple contiguous axial images were obtained through the brain without the use of intravenous contrast. All CT scans use one or more of the following dose optimizing techniques: automated exposure control, MA and/or KvP adjustment based on a patient size and exam type, or iterative reconstruction. HISTORY: Nausea and vomiting. Stroke-like symptoms. History of stroke. COMPARISON: MRI brain on 05/24/2015. CT head on 05/23/2015. FINDINGS: No large acute territorial ischemia, mass, or hemorrhage. Stable appearance of the chronic infarct in the left thalamus. No midline shift or mass effect. Decreased attenuation is seen in the periventricular and subcortical white matter. The ventricles and cortical sulci are prominent. The basilar cisterns are patent and unremarkable. The orbits are normal. Paranasal sinuses are normal. Mastoid air cells are clear. No soft tissue abnormality is seen. No osseus lesions or fractures are seen. IMPRESSION: 1. No large acute territorial ischemia, mass, or hemorrhage. 2. Old infarct in the left thalamus, similar to the prior exam. 3. Generalized parenchymal volume loss with chronic microvascular disease. Dictated by: Dictated on workstation # [id number]
--- NOTE | 2020-05-14 16:40 | Diagnostic Imaging Report ---
INDICATION: Altered mental status. COMPARISON: 10/07/2019. FINDINGS: Single frontal view of the chest demonstrates normal heart size and pulmonary vascularity. The lungs are well aerated and clear. No large pleural effusion or pneumothorax is seen. The visualized osseous structures show no acute abnormalities. IMPRESSION: 1. No acute cardiopulmonary process. Dictated by: Dictated on workstation # [id number]
[2020-05-14] MEDS ORDERED: inSUlin (REGULAR) HUMAN 1 UNIT/0.01 ML (CHARGE PER UNIT) IV ONE (16:45)
[2020-05-14 16:48] LABS: GLUCOSE 1402 MG/DL (70-105)
--- NOTE | 2020-05-14 17:49 | NUR ---
DISPATCH AND CAPTAIN HAVE BEEN NOTIFIED OF TRANSFER
--- NOTE | 2020-05-14 17:59 | NUR ---
CALLED REPORT TO ARIANNE LOERA AT [facility]
[2020-05-14 18:45] VITALS: BP 110/77
--- NOTE | 2020-05-14 18:55 | NUR ---
CALLED TO TELL HIM PATIENT LEFT THE ER TO GO TO [facility] 10 MIN AGO
== END 2020-05-14 18:44 | disposition short-term general hospital (02) ==
LOC: EDUNIT# 14:46 → ER 14:47
DX: R41.82 Altered mental status, unspecified (principal); E87.1 Hypo-osmolality and hyponatremia; E87.6 Hypokalemia; N17.9 Acute kidney failure, unspecified; E11.10 Type 2 diabetes mellitus with ketoacidosis without coma; I10 Essential (primary) hypertension; E78.00 Pure hypercholesterolemia, unspecified; G89.29 Other chronic pain; M54.9 Dorsalgia, unspecified; F17.210 Nicotine dependence, cigarettes, uncomplicated; Z20.828 Contact with and (suspected) exposure to other viral communicable diseases; Z83.3 Family history of diabetes mellitus; Z82.49 Family history of ischemic heart disease and other diseases of the circulatory system; Z80.42 Family history of malignant neoplasm of prostate; Z88.0 Allergy status to penicillin; Z88.6 Allergy status to analgesic agent; Z79.4 Long term (current) use of insulin; Z79.891 Long term (current) use of opiate analgesic
CPT/HCPCS: 36600; 51702; 70450; 71045; 80053; 80306; 81000; 82150; 82550; 82553; 82805; 82962; 83690; 83735; 83874; 84484; 85025; 85610; 85730; 87077; 87088; 93005; 93041; 99291; G0480 ×2; U0002; 36415; 80320; 80329; 87635